=== PATIENT | female | born 1950 | race Caucasian/White ===

== ENCOUNTER 2017-06-07 08:47 | Outpatient (RCR) | payer MEDICARE, SELFPAY ==
[2017-06-04 01:26] VITALS: BP 102/76; PULSE 101; RESP 16; TEMP 36.4; BMI 40.5
== END 2017-07-04 23:59 ==
LOC: WC 08:47
PROVIDERS: Family Provider Family Medicine Geriatric Medicine; PCP Family Medicine Geriatric Medicine; Visit Provider Internal Medicine
DX: Z09 Encounter for follow-up examination after completed treatment for conditions other than malignant neoplasm (principal)

== ENCOUNTER → 2017-07-24 13:44 | Outpatient (CLI) | payer MEDICARE, OTHER, SELFPAY ==
[2017-07-24 16:14] LABS: ALB/GLOB Ratio 0.7 RATIO (0.9-2.4); AST(SGOT) 22 U/L (15-37); Alanine Aminotransfer ALT/SGPT 21 U/L (13-56); Albumin, Serum 3.4 g/dL (3.2-5.0); Alkaline Phosphatase 58 U/L (45-117); Anion Gap 9 (5-15); BUN 19 mg/dL (7-18); BUN/Creat Ratio 30.7 RATIO (10-20); Calcium,Total 9.2 mg/dL (8.5-10.1); Chloride 105 mmol/L (98-107); Cholesterol 150 mg/dL (200); Creatinine, Serum 0.62 mg/dL (0.55-1.02); EST Glomerular Filtration Rate 103 mL/min (>60); Est Glom Filt Rate - Afr Amer 124 mL/min (>60); Globulin 4.6 g/dL (2.2-4.2); Glucose 85 mg/dL (74-106); High Density Lipoprotein 37 mg/dL; Potassium 4.7 mmol/L (3.5-5.1); Sodium Level 139 mmol/L (136-145); Thyroid Stim Hormone (TSH) 1.28 uIU/mL (0.358-3.74); Triglycerides 138 mg/dL; Very Low Density Lipoprotein 28 mg/dL (5-40)
[2017-07-24 16:17] LABS: Absolute Lymphocyte Count 2.43 X10^3/ul (0.83-4.51); Basophil# 0.03 X10^3/uL; Basophil% 0.2 % (0-1); Eosinophil# 0.12 X10^3/uL; Eosinophils% 0.9 % (0-5); Hematocrit 31.2 % (37-47); Hemoglobin 8.7 g/dl (12.0-15.0); Lymphocyte # 2.43 X10^3/ul (4.0); Lymphocyte % 18.8 % (19-41); Mean Corp Hgb Conc 27.9 g/gl (32-36); Mean Corpuscular Hgb 19.3 pg (27.0-32.0); Mean Corpuscular Volume 69.3 fL (81-99); Mean Platelet Vol. 8.8 fl (6.2-12.0); Monocyte# 1.36 X10^3/uL; Monocyte% 10.5 % (0-10); Neutrophil # 8.99 X10^3/uL (2.7-7.7); Neutrophil % 69.4 % (47-70); Platelet Count 688 K/mm3 (150-450); RBC Distribution Width CV 19.1 % (11.6-14.6); RBC Distribution Width SD 48.4 fl (35.1-43.9)
[2017-07-24 16:19] LABS: Differential Indicated SCAN CRITERIA MET; POSITIVE COUNT NO; POSITIVE DIFFERENTIAL NO; POSITIVE MORPHOLOGY YES
[2017-07-24 16:36] LABS: Anisocytosis 2+; Differential Comment SCANNED; Hypochromasia 1+; Microcytosis 2+; Polychromasia RARE
[2017-07-25 10:35] LABS: Vitamin D,25 Hydroxy 18.7 ng/mL (19.95-100.01)
== END ==
PROVIDERS: Family Provider Family Medicine Geriatric Medicine; PCP Family Medicine Geriatric Medicine; Visit Provider Family Medicine Geriatric Medicine
DX: E55.9 Vitamin D deficiency, unspecified (principal); E78.4 Other hyperlipidemia; I10 Essential (primary) hypertension
CPT/HCPCS: 36415; 80053; 80061; 82306; 84443; 85025; 87086; 87088; 87186

== ENCOUNTER 2017-07-26 10:00 | Outpatient (RCR) | payer MEDICARE, OTHER, SELFPAY ==
[2017-06-04 01:26] VITALS: BP 102/76; BMI 40.5
[2017-07-05 00:49] VITALS: PULSE 101; RESP 16; TEMP 36.4
[2017-07-05 09:26] VITALS: BP 107/69; PULSE 95; RESP 18; TEMP 36.8; BMI 40.5
--- NOTE | 2017-07-05 17:03 | HP.PCM_ITS ---
(1) Pressure ulcer of left heel, stage 3 Status: Acute Current Visit: Yes Code(s): L89.623 - Pressure ulcer of left heel, stage 3 (2) Pressure ulcer of right heel, stage 3 Status: Acute Current Visit: Yes Code(s): L89.613 - Pressure ulcer of right heel, stage 3 (3) Pressure ulcer of sacral region, stage 4 Status: Chronic Current Visit: Yes Code(s): L89.154 - Pressure ulcer of sacral region, stage 4 History of Present Illness Date of Service: 07/05/17 Chief Complaint: Stage IV sacral pressure ulceration; bilateral unstageable necrotic heel pressure ulcerations History of Wound: Ms. Chavez is a 67-year-old female who has been seen here about a month ago and managed as a case of bilateral stage III pressure ulcers and stage IV sacral ulcer. Due to insurance issues she has not been seen here in over a month and was seen at another wound center however she returns here today for continued care. 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 She had intraoperative surgical debridement of her sacral wound and has since had a wound VAC. Wound has shown significant progress since initial episode. She currently has a wound VAC to her sacral wound and has been applying collagen to the bilateral heels. She denies chills, fever or otherwise feeling of unwell. Past Medical History Past Medical History: Chronic Problems Pressure ulcer of sacral region, stage 4 (Chronic) Pressure ulcer, heel, left, unstageable (Chronic) Pressure ulcer, heel, right, unstageable (Chronic) Hypothyroidism (Chronic) Depression (Chronic) GERD (gastroesophageal reflux disease) (Chronic) Neuropathy (Chronic) Hypertension (Chronic) GERD (gastroesophageal reflux disease) (Chronic) Morbid obesity with BMI of 40.0-44.9, adult (Chronic) Surgical History: - - As previously undergone hysterectomy. She is a Ab0. Surgical debridement of her sacral pressure ulceration was performed on April 12, 2017, at [facility]. Allergies/Adverse Reactions: Allergies bee venom protein (honey bee) Allergy (Verified 03/09/17 21:06) Angioedema Home Medications: Ambulatory Orders Medication Instructions Recorded Baclofen 10 mg PO TID 03/02/17 Gabapentin [Neurontin] 300 mg PO TID 03/02/17 Levothyroxine [Synthroid] 25 mcg PO DAILY 03/02/17 Potassium Chloride [K-Dur] 40 meq PO DAILYCM #7 tablet 03/08/17 Ensure Enlive 120 ml PO 4X/DAY 03/16/17 - Family History Maternal Unknown, - - Patient's mother at the age of 82 with a history of chronic obstructive pulmonary disease. Paternal Unknown, - - Patient's father at age of 79 with history of lung cancer and myocardial infarction. Smoking Status: Former smoker Tobacco Use: Non-smoker Review of Systems Constitutional: Denies: Anorexia, Chills, Fever Eyes: Denies: Pain, Redness HEENT: Denies: Difficulty Hearing, Difficulty Swallowing Cardiovascular: Denies: Chest Pain, Chest Tightness Respiratory: Denies: Cough, Hemoptysis Gastrointestinal: Denies: Abdominal Pain Skin: Denies: Jaundice - Physical Exam Vital Signs Temp Pulse Resp BP 98.2 F 95 18 107/69 07/05/17 09:26 07/05/17 09:26 07/05/17 09:26 07/05/17 09:26 General: Alert, Oriented x3, Cooperative, No apparent distress HEENT: Atraumatic, Normocephalic Oral: Moist Mucosa Neck: Supple Lungs: Normal air movement Cardiovascular: Regular rate Abdomen: Non Tender Extremities: No cyanosis Skin: Ulcer/ Wound Wound Measurements and Assessment - Nurse 1 - General Ulcer Measurement Start: 07/05/17 09:25 Freq: Status: Active Protocol: Activity Type Activity Date Activity User E-Sign Co-Sign Detail Recorded Client Recorded Date Recorded By Document 07/05/17 09:26 MW [id number] 07/05/17 09:36 MW 07/05/17 09:26 Wound Center Nurse 1 [Ulcer Assessment Protocol: WC.WD.LOC] #3 sacrum -Combined with other wound No -Current Size (cm) - Length 2.5 -Current Size (cm) - Width 6.5 -Current Size (cm) - Depth 2.9 -Total Square Cm 16.25 -Date of Last Picture (Recall this 07/05/17 field) -Photo Taken Yes -Epithelialization Small 1-33% -Tunneling No -Undermining/Tunneling No -Circular Undermining No -Exudate Amt Medium (34-66%) -Exudate Type Serosanguineous -Wound Margin Distinct, Outline Attached -Granulation Amt Large (67-100%) -Granulation Quality Red -Slough/Fibrin Yes -Necrosis Amt Small (1-33%) -Necrotic Tissue Type Adherent Slough -Structure Exposed N/A -Texture (Amanda-wound Skin Appearance) Assessed Scarring -Moisture (Amanda-wound Skin Appearance No Abnormality ) Assessed -Color (Amanda-wound Skin Appearance) No Abnormality Assessed -Temperature (Amanda-wound Skin No Abnormality Appearance) (Pt Warm) -Tenderness on Palpation (Amanda-wound No Skin Appearance) -Ulcer Cleansing Rinsed/ Irrigated with Saline -Foul Odor after Cleansing No -Anesthetic Used 4% Lidocaine Solution #2 left heel -Combined with other wound No -Current Size (cm) - Length 0.3 -Current Size (cm) - Width 0.6 -Current Size (cm) - Depth 0.2 -Total Square Cm 0.18 -Date of Last Picture (Recall this 07/05/17 field) -Photo Taken Yes -Epithelialization None Present -Tunneling No -Undermining/Tunneling No -Circular Undermining No -Exudate Amt Small (1-33%) -Exudate Type Purulent -Wound Margin Distinct, Outline Attached -Granulation Amt Small (1-33%) -Granulation Quality [employer] -Slough/Fibrin Yes -Necrosis Amt Medium (34-66%) -Necrotic Tissue Type Adherent Slough -Structure Exposed N/A -Texture (Amanda-wound Skin Appearance) Assessed Scarring -Moisture (Amanda-wound Skin Appearance Assessed ) Dry/Scaly -Color (Amanda-wound Skin Appearance) No Abnormality Assessed -Temperature (Amanda-wound Skin No Abnormality Appearance) (Pt Warm) -Tenderness on Palpation (Amanda-wound No Skin Appearance) -Ulcer Cleansing Rinsed/ Irrigated with Saline -Foul Odor after Cleansing No -Anesthetic Used 4% Lidocaine Solution #1 Right heel -Combined with other wound No -Current Size (cm) - Length 0.5 -Current Size (cm) - Width 0.7 -Current Size (cm) - Depth 0.1 -Total Square Cm 0.35 -Date of Last Picture (Recall this 07/05/17 field) -Photo Taken Yes -Epithelialization None Present -Tunneling No -Undermining/Tunneling No -Circular Undermining No -Exudate Amt None Present (0 %) -Wound Margin Flat & Intact -Granulation Amt None Present (0 %) -Granulation Quality N/A -Slough/Fibrin Yes -Necrosis Amt Large (67-100%) -Necrotic Tissue Type Adherent Slough -Structure Exposed N/A -Texture (Amanda-wound Skin Appearance) No Abnormality Assessed -Moisture (Amanda-wound Skin Appearance No Abnormality ) Dry/Scaly -Color (Amanda-wound Skin Appearance) No Abnormality Assessed -Temperature (Amanda-wound Skin No Abnormality Appearance) (Pt Warm) -Tenderness on Palpation (Amanda-wound No Skin Appearance) -Ulcer Cleansing Rinsed/ Irrigated with Saline -Foul Odor after Cleansing No -Anesthetic Used 4% Lidocaine Solution [Edema Assessment] -Lower Limb Edema Present No WC - Nurse 2 - General Ulcer CM Notes Start: 07/05/17 09:25 Freq: Status: Active Protocol: Activity Type Activity Date Activity User E-Sign Co-Sign Detail Recorded Client Recorded Date Recorded By Document 07/05/17 09:52 DV [id number] 07/05/17 10:09 DV 07/05/17 09:52 Wound Center Nurse 2 [Procedure/Treatment] #3 sacrum -Time 09:55 -Correct Patient Yes -Correct Side, Site, Position Yes -Correct Procedure Yes -Procedure Performed Yes -Type of Procedure Debridement -Clinical Debridement Subcutaneous -Post Debridement Size (cm) - Length 2.7 -Post Debridement Size (cm) - Width 7.0 -Post Debridement Size (cm) - Depth 2.6 -Total Square Cm 18.90 -Wound/Ulcer Outcome Not Healed -Ulcer Cleansing Rinsed/ Irrigated with Saline -Foul Odor after Cleansing No -Bioengineered Tissue No -Cetacaine Dierks No -Bleeding Controlled with Pressure -Treatment Response Procedure Tolerated Well #2 left heel -Time 09:57 -Correct Patient Yes -Correct Side, Site, Position Yes -Correct Procedure Yes -Procedure Performed Yes -Type of Procedure Debridement -Clinical Debridement Subcutaneous -Post Debridement Size (cm) - Length 0.3 -Post Debridement Size (cm) - Width 0.8 -Post Debridement Size (cm) - Depth 0.5 -Total Square Cm 0.24 -Wound/Ulcer Outcome Not Healed -Ulcer Cleansing Rinsed/ Irrigated with Saline -Foul Odor after Cleansing No -Bioengineered Tissue No -Cetacaine Dierks No -Bleeding Controlled with Pressure -Treatment Response Procedure Tolerated Well #1 Right heel -Time 09:58 -Correct Patient Yes -Correct Side, Site, Position Yes -Correct Procedure Yes -Procedure Performed Yes -Type of Procedure Debridement -Clinical Debridement Subcutaneous -Post Debridement Size (cm) - Length 0.4 -Post Debridement Size (cm) - Width 1.1 -Post Debridement Size (cm) - Depth 0.6 -Total Square Cm 0.44 -Wound/Ulcer Outcome Not Healed -Ulcer Cleansing Rinsed/ Irrigated with Saline -Foul Odor after Cleansing No -Bioengineered Tissue No -Cetacaine Dierks No -Bleeding Controlled with Pressure -Treatment Response Procedure Tolerated Well [See Physician Procedure note for Specifics] Pain Scale: 0-10 Numeric [Pain] -Is Patient Pain Free? Yes Musculoskeletal: No Muscle Wasting Neurological: Cranial nerves II-XII grossly intact Psych/Mental Status: Normal Affect Debridement Note Post-Debridement Measurements/Treatment WC - Nurse 2 - General Ulcer CM Notes Start: 07/05/17 09:25 Freq: Status: Active Protocol: Activity Type Activity Date Activity User E-Sign Co-Sign Detail Recorded Client Recorded Date Recorded By Document 07/05/17 09:52 DV [id number] 07/05/17 10:09 DV 07/05/17 09:52 Wound Center Nurse 2 #3 sacrum -Time 09:55 -Correct Patient Yes -Correct Side, Site, Position Yes -Correct Procedure Yes -Procedure Performed Yes -Type of Procedure Debridement -Clinical Debridement Subcutaneous -Post Debridement Size (cm) - Length 2.7 -Post Debridement Size (cm) - Width 7.0 -Post Debridement Size (cm) - Depth 2.6 -Total Square Cm 18.90 -Wound/Ulcer Outcome Not Healed -Ulcer Cleansing Rinsed/ Irrigated with Saline -Foul Odor after Cleansing No -Bioengineered Tissue No -Cetacaine Dierks No -Bleeding Controlled with Pressure -Treatment Response Procedure Tolerated Well #2 left heel -Time 09:57 -Correct Patient Yes -Correct Side, Site, Position Yes -Correct Procedure Yes -Procedure Performed Yes -Type of Procedure Debridement -Clinical Debridement Subcutaneous -Post Debridement Size (cm) - Length 0.3 -Post Debridement Size (cm) - Width 0.8 -Post Debridement Size (cm) - Depth 0.5 -Total Square Cm 0.24 -Wound/Ulcer Outcome Not Healed -Ulcer Cleansing Rinsed/ Irrigated with Saline -Foul Odor after Cleansing No -Bioengineered Tissue No -Cetacaine Dierks No -Bleeding Controlled with Pressure -Treatment Response Procedure Tolerated Well #1 Right heel -Time 09:58 -Correct Patient Yes -Correct Side, Site, Position Yes -Correct Procedure Yes -Procedure Performed Yes -Type of Procedure Debridement -Clinical Debridement Subcutaneous -Post Debridement Size (cm) - Length 0.4 -Post Debridement Size (cm) - Width 1.1 -Post Debridement Size (cm) - Depth 0.6 -Total Square Cm 0.44 -Wound/Ulcer Outcome Not Healed -Ulcer Cleansing Rinsed/ Irrigated with Saline -Foul Odor after Cleansing No -Bioengineered Tissue No -Cetacaine Dierks No -Bleeding Controlled with Pressure -Treatment Response Procedure Tolerated Well Pain Scale: 0-10 Numeric Is Patient Pain Free? Yes Wound debrided: Sacral ulcer Wound Grade/Stage: Stage IV Type of Debridement: Excisional debridement Anesthesia Used: 4% Lidocaine Solution Depth: Down to and including healthy tissue, to muscle Percentage of wound debrided: 100 Instrument Used: 7mm curette Tissue Removed: Slough, devitalized tissue, fibrin. Severity: Fat Layer Exposed Amount of bleeding with debridement: Mild Bleeding Controlled with: Pressure Patient tolerated procedure well - Additional Wound Wound debrided: Right heel. Wound Grade/Stage: Stage III Type of Debridement: Excisional debridement Anesthesia Used: 4% Lidocaine Solution Depth: Down to and including healthy tissue, in the subcutaneous layer Percentage of wound debrided: 100 Instrument Used: 5mm curette Tissue Removed: Purulent material, devitalized tissue and slough Severity: Fat Layer Exposed Amount of bleeding with debridement: Mild Bleeding Controlled with: Pressure Patient tolerated procedure: Patient tolerated procedure well - Additional Wound Wound debrided: Left heel Wound Grade/Stage: Stage III Type of Debridement: Excisional debridement Anesthesia Used: 4% Lidocaine Solution Depth: Down to and including healthy tissue, in the subcutaneous layer Percentage of wound debrided: 100 Instrument Used: 5mm curette Tissue Removed: Slough and devitalized tissue Severity: Fat Layer Exposed Amount of bleeding with debridement: Mild Bleeding Controlled with: Pressure Assessment/Plan Active Problems Pressure ulcer of sacral region, stage 4 (Chronic) Pressure ulcer of left heel, stage 3 (Acute) Pressure ulcer of right heel, stage 3 (Acute) Assessment: Stage IV sacral decubitus ulcer. Right heel stage III pressure ulcer. Left heel stage III pressure ulcer. Plan: She has shown some wound progress since her last visit here. Still applying the wound VAC to her sacral wound which has decreased compared to her last visit. Debridement done as documented above. Continue wound VAC at 150 mmHg continuously. Bilateral heel ulcers with minimal improvement. Purulent material noted from the right heel. Cultures taken. Debridement done as documented above. Promogran daily to bilateral heel ulcers. Patient advised to continue to increase protein in diet and protein supplements. Offloading of bilateral lower extremities. Follow-up in 1 week. This note was generated with [employer] dictation software. It may contain incorrect words, spelling, and punctuation that were not noted in checking the note before signing.
[2017-07-12 09:35] VITALS: BP 114/85; PULSE 85; RESP 18; TEMP 36.7; BMI 40.5
--- NOTE | 2017-07-12 16:39 | PN.PCM_ITS ---
(1) Pressure ulcer of left heel, stage 3 Status: Acute Current Visit: Yes Code(s): L89.623 - Pressure ulcer of left heel, stage 3 (2) Pressure ulcer of right heel, stage 3 Status: Acute Current Visit: Yes Code(s): L89.613 - Pressure ulcer of right heel, stage 3 (3) Pressure ulcer of sacral region, stage 4 Status: Chronic Current Visit: Yes Code(s): L89.154 - Pressure ulcer of sacral region, stage 4 Type of Wound Date of Service: 07/12/17 Chief Complaint: Stage IV sacral pressure ulceration; bilateral unstageable necrotic heel pressure ulcerations History of Wound: Ms. Chavez is a 67-year-old female who has been seen here about a month ago and managed as a case of bilateral stage III pressure ulcers and stage IV sacral ulcer. Due to insurance issues she has not been seen here in over a month and was seen at another wound center however she returns here today for continued care. 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 She had intraoperative surgical debridement of her sacral wound and has since had a wound VAC. Wound has shown significant progress since initial episode. She currently has a wound VAC to her sacral wound and has been applying collagen to the bilateral heels. She denies chills, fever or otherwise feeling of unwell. Progress of Wound: Improving. - Physical Exam Vital Signs Temp Pulse Resp BP 98.0 F 85 18 114/85 H 07/12/17 09:35 07/12/17 09:35 07/12/17 09:35 07/12/17 09:35 General: Alert, Oriented x3, Cooperative, No apparent distress HEENT: Atraumatic, Normocephalic Oral: Moist Mucosa Neck: Supple Lungs: Normal air movement Cardiovascular: Regular rate Extremities: No cyanosis Skin: Ulcer/ Wound Wound Measurements and Assessment CHILO - Nurse 1 - General Ulcer Measurement Start: 07/05/17 09:25 Freq: Status: Active Protocol: Activity Type Activity Date Activity User E-Sign Co-Sign Detail Recorded Client Recorded Date Recorded By Document 07/12/17 09:35 TM [id number] 07/12/17 09:40 TM 07/12/17 09:35 Wound Center Nurse 1 [Ulcer Assessment Protocol: CHILO.WD.LOC] #3 sacrum -Combined with other wound No -Current Size (cm) - Length 2.3 -Current Size (cm) - Width 5.5 -Current Size (cm) - Depth 2.8 -Total Square Cm 12.65 -Photo Taken No -Epithelialization Small 1-33% -Tunneling No -Undermining/Tunneling Yes -Undermining/Tunneling Starts (O' 3 clock) -Undermining/Tunneling Ends (O'clock) 5 -Maximum Distance (cm) 4.0 -Undermining/Tunneling Starts #2 (O' 6 clock) -Undermining/Tunneling Ends #2 (O' 2 clock) -Maximum Distance #2 (cm) 5.0 -Circular Undermining Yes -Classification - Thickness Full Thickness without Exposed Support Structure -Exudate Amt Large (67-100%) -Exudate Type Serosanguineous -Wound Margin Distinct, Outline Attached -Granulation Amt Large (67-100%) -Granulation Quality [employer] -Slough/Fibrin Yes -Necrosis Amt Small (1-33%) -Necrotic Tissue Type Adherent Slough -Structure Exposed Fascia Fat Layer Exposed -Texture (Amanda-wound Skin Appearance) Scarring -Moisture (Amanda-wound Skin Appearance No Abnormality ) -Color (Amanda-wound Skin Appearance) Erythema -Temperature (Amanda-wound Skin No Abnormality Appearance) (Pt Warm) -Tenderness on Palpation (Amanda-wound No Skin Appearance) -Ulcer Cleansing Rinsed/ Irrigated with Saline -Foul Odor after Cleansing No -Anesthetic Used 5% Lidocaine Gel #2 left heel -Combined with other wound No -Current Size (cm) - Length 0 -Current Size (cm) - Width 0 -Current Size (cm) - Depth 0 -Total Square Cm 0 -Date of Last Picture (Recall this 07/12/17 field) -Photo Taken Yes -Epithelialization Large 67-100% -Tunneling No -Undermining/Tunneling No -Circular Undermining No -Classification - Thickness Full Thickness without Exposed Support Structure -Exudate Amt None Present (0 %) -Wound Margin Distinct, Outline Attached -Granulation Amt Large (67-100%) -Granulation Quality [employer] -Slough/Fibrin No -Necrosis Amt None Present (0 %) -Structure Exposed None/Limited to Skin Breakdown -Texture (Amanda-wound Skin Appearance) Scarring -Moisture (Amanda-wound Skin Appearance Dry/Scaly ) -Color (Amanda-wound Skin Appearance) No Abnormality -Temperature (Amanda-wound Skin No Abnormality Appearance) (Pt Warm) -Tenderness on Palpation (Amanda-wound No Skin Appearance) -Ulcer Cleansing Rinsed/ Irrigated with Saline -Foul Odor after Cleansing No #1 Right heel -Combined with other wound No -Current Size (cm) - Length 0.3 -Current Size (cm) - Width 0.5 -Current Size (cm) - Depth 0.2 -Total Square Cm 0.15 -Photo Taken No -Epithelialization Medium 34-66% -Tunneling No -Undermining/Tunneling No -Circular Undermining No -Classification - Thickness Full Thickness without Exposed Support Structure -Exudate Amt Small (1-33%) -Exudate Type Serosanguineous -Wound Margin Fibrotic Scar, Thickened Scar -Granulation Amt Medium (34-66%) -Granulation Quality [employer] -Slough/Fibrin Yes -Necrosis Amt Small (1-33%) -Necrotic Tissue Type Adherent Slough -Structure Exposed Fascia Fat Layer Exposed -Texture (Amanda-wound Skin Appearance) Scarring -Moisture (Amanda-wound Skin Appearance Dry/Scaly ) -Color (Amanda-wound Skin Appearance) No Abnormality -Temperature (Amanda-wound Skin No Abnormality Appearance) (Pt Warm) -Tenderness on Palpation (Amanda-wound No Skin Appearance) -Ulcer Cleansing Rinsed/ Irrigated with Saline -Foul Odor after Cleansing No -Anesthetic Used 5% Lidocaine Gel [Edema Assessment] -Lower Limb Edema Present No WC - Nurse 2 - General Ulcer CM Notes Start: 07/05/17 09:25 Freq: Status: Active Protocol: Activity Type Activity Date Activity User E-Sign Co-Sign Detail Recorded Client Recorded Date Recorded By Document 07/12/17 10:00 DV [id number] 07/12/17 10:14 DV 07/12/17 10:00 Wound Center Nurse 2 [Procedure/Treatment] #3 sacrum -Time 10:01 -Correct Patient Yes -Correct Side, Site, Position Yes -Correct Procedure Yes -Procedure Performed Yes -Type of Procedure Debridement -Clinical Debridement Subcutaneous -Post Debridement Size (cm) - Length 2.7 -Post Debridement Size (cm) - Width 6.1 -Post Debridement Size (cm) - Depth 2.1 -Total Square Cm 16.47 -Wound/Ulcer Outcome Not Healed -Ulcer Cleansing Rinsed/ Irrigated with Saline -Foul Odor after Cleansing Yes -Bleeding Controlled with Pressure -Treatment Response Procedure Tolerated Well #2 left heel -Time 10:04 -Correct Patient Yes -Correct Side, Site, Position Yes -Correct Procedure Yes -Procedure Performed Yes -Type of Procedure Debridement -Clinical Debridement Subcutaneous -Post Debridement Size (cm) - Length 0.2 -Post Debridement Size (cm) - Width 0.3 -Post Debridement Size (cm) - Depth 0.2 -Total Square Cm 0.06 -Wound/Ulcer Outcome Not Healed -Ulcer Cleansing Rinsed/ Irrigated with Saline -Foul Odor after Cleansing No -Bioengineered Tissue No -Bleeding Controlled with NA #1 Right heel -Time 10:02 -Correct Patient Yes -Correct Side, Site, Position Yes -Correct Procedure Yes -Procedure Performed Yes -Type of Procedure Debridement -Clinical Debridement Subcutaneous -Post Debridement Size (cm) - Length 0.3 -Post Debridement Size (cm) - Width 0.8 -Post Debridement Size (cm) - Depth 0.4 -Total Square Cm 0.24 -Wound/Ulcer Outcome Not Healed -Ulcer Cleansing Rinsed/ Irrigated with Saline -Foul Odor after Cleansing No -Bioengineered Tissue No -Bleeding Controlled with Pressure -Treatment Response Procedure Tolerated Well [See Physician Procedure note for Specifics] Pain Scale: 0-10 Numeric [Pain] -Is Patient Pain Free? Yes Musculoskeletal: No Muscle Wasting Neurological: Cranial nerves II-XII grossly intact Psych/Mental Status: Normal Affect Debridement Note Post-Debridement Measurements/Treatment WC - Nurse 2 - General Ulcer CM Notes Start: 07/05/17 09:25 Freq: Status: Active Protocol: Activity Type Activity Date Activity User E-Sign Co-Sign Detail Recorded Client Recorded Date Recorded By Document 07/05/17 09:52 DV [id number] 07/05/17 10:09 DV Document 07/12/17 10:00 DV [id number] 07/12/17 10:14 DV 07/05/17 07/12/17 09:52 10:00 Wound Center Nurse 2 #3 sacrum -Time 09:55 10:01 -Correct Patient Yes Yes -Correct Side, Site, Position Yes Yes -Correct Procedure Yes Yes -Procedure Performed Yes Yes -Type of Procedure Debridement Debridement -Clinical Debridement Subcutaneous Subcutaneous -Post Debridement Size (cm) - Length 2.7 2.7 -Post Debridement Size (cm) - Width 7.0 6.1 -Post Debridement Size (cm) - Depth 2.6 2.1 -Total Square Cm 18.90 16.47 -Wound/Ulcer Outcome Not Healed Not Healed -Ulcer Cleansing Rinsed/ Rinsed/ Irrigated with Irrigated with Saline Saline -Foul Odor after Cleansing No Yes -Bioengineered Tissue No -Cetacaine [place] No -Bleeding Controlled with Pressure Pressure -Treatment Response Procedure Procedure Tolerated Well Tolerated Well #2 left heel -Time 09:57 10:04 -Correct Patient Yes Yes -Correct Side, Site, Position Yes Yes -Correct Procedure Yes Yes -Procedure Performed Yes Yes -Type of Procedure Debridement Debridement -Clinical Debridement Subcutaneous Subcutaneous -Post Debridement Size (cm) - Length 0.3 0.2 -Post Debridement Size (cm) - Width 0.8 0.3 -Post Debridement Size (cm) - Depth 0.5 0.2 -Total Square Cm 0.24 0.06 -Wound/Ulcer Outcome Not Healed Not Healed -Ulcer Cleansing Rinsed/ Rinsed/ Irrigated with Irrigated with Saline Saline -Foul Odor after Cleansing No No -Bioengineered Tissue No No -Cetacaine [place] No -Bleeding Controlled with Pressure NA -Treatment Response Procedure Tolerated Well #1 Right heel -Time 09:58 10:02 -Correct Patient Yes Yes -Correct Side, Site, Position Yes Yes -Correct Procedure Yes Yes -Procedure Performed Yes Yes -Type of Procedure Debridement Debridement -Clinical Debridement Subcutaneous Subcutaneous -Post Debridement Size (cm) - Length 0.4 0.3 -Post Debridement Size (cm) - Width 1.1 0.8 -Post Debridement Size (cm) - Depth 0.6 0.4 -Total Square Cm 0.44 0.24 -Wound/Ulcer Outcome Not Healed Not Healed -Ulcer Cleansing Rinsed/ Rinsed/ Irrigated with Irrigated with Saline Saline -Foul Odor after Cleansing No No -Bioengineered Tissue No No -Cetacaine [place] No -Bleeding Controlled with Pressure Pressure -Treatment Response Procedure Procedure Tolerated Well Tolerated Well Pain Scale: 0-10 Numeric Is Patient Pain Free? Yes Yes Wound debrided: Sacral Wound Grade/Stage: stage IV Anesthesia Used: 4% Lidocaine Solution Depth: Down to and including healthy tissue, to muscle Percentage of wound debrided: 100 Instrument Used: 7mm curette Tissue Removed: Slough, Devitalized tissue Severity: Fat Layer Exposed Amount of bleeding with debridement: Mild Bleeding Controlled with: Pressure Patient tolerated procedure well - Additional Wound Wound debrided: Left heel Wound Grade/Stage: Satge III Type of Debridement: Excisional debridement Anesthesia Used: 5% Lidocaine Gel Depth: Down to and including healthy tissue, in the subcutaneous layer Percentage of wound debrided: 100 Instrument Used: 3mm curette Tissue Removed: Slough and Devitalized tissue Severity: Fat Layer Exposed Amount of bleeding with debridement: Mild Bleeding Controlled with: Pressure Patient tolerated procedure: Patient tolerated procedure well - Additional Wound Wound debrided: Right heel Wound Grade/Stage: Stage III Type of Debridement: Excisional debridement Anesthesia Used: 4% Lidocaine Solution Depth: Down to and including healthy tissue, in the subcutaneous layer Percentage of wound debrided: 100 Instrument Used: 3mm curette Tissue Removed: Slough and Devitalized tissue Severity: Fat Layer Exposed Amount of bleeding with debridement: Mild Bleeding Controlled with: Pressure Patient tolerated procedure: Patient tolerated procedure well Assessment/Plan Active Problems Pressure ulcer of right heel, stage 3 (Acute) Pressure ulcer of left heel, stage 3 (Acute) Pressure ulcer of sacral region, stage 4 (Chronic) Assessment: Stage IV sacral decubitus ulcer. Right heel stage III pressure ulcer. Left heel stage III pressure ulcer. Plan: Continues to show good progress. Right heel with no drainage today and left heel almost healed. Cultures done at last visit grew Staph. Started on Abx. Debridement done as documented above. Continue Wound vac to sacral ulcer at 150mmHg. Continue promogran to bilateral heel ulcers. Patient advised to continue increased protein in diet and protein supplements. Offloading of bilateral lower extremities. Follow-up in 1 week. This note was generated with [employer] dictation software. It may contain incorrect words, spelling, and punctuation that were not noted in checking the note before signing.
[2017-07-19 11:22] VITALS: BP 135/80; PULSE 91; RESP 18; TEMP 36.6; BMI 40.5
--- NOTE | 2017-07-19 12:12 | PCM.WC.PN ---
(1) Pressure ulcer of left heel, stage 3 Status: Acute Current Visit: Yes Code(s): L89.623 - Pressure ulcer of left heel, stage 3 (2) Pressure ulcer of right heel, stage 3 Status: Acute Current Visit: Yes Code(s): L89.613 - Pressure ulcer of right heel, stage 3 (3) Pressure ulcer of sacral region, stage 4 Status: Chronic Current Visit: Yes Code(s): L89.154 - Pressure ulcer of sacral region, stage 4 Type of Wound Date of Service: 07/19/17 Chief Complaint: Stage IV sacral pressure ulceration; bilateral unstageable necrotic heel pressure ulcerations History of Wound: Ms. Chavez is a 67-year-old female who has been seen here about a month ago and managed as a case of bilateral stage III pressure ulcers and stage IV sacral ulcer. Due to insurance issues she has not been seen here in over a month and was seen at another wound center however she returns here today for continued care. 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 She had intraoperative surgical debridement of her sacral wound and has since had a wound VAC. Wound has shown significant progress since initial episode. She currently has a wound VAC to her sacral wound and has been applying collagen to the bilateral heels. She denies chills, fever or otherwise feeling of unwell. Progress of Wound: Improving. Left heel ulcer, healed. - Physical Exam Vital Signs Temp Pulse Resp BP 97.8 F 91 18 135/80 H 07/19/17 11:22 07/19/17 11:22 07/19/17 11:22 07/19/17 11:22 General: Alert, Oriented x3, Cooperative, No apparent distress HEENT: Atraumatic, Normocephalic Oral: Moist Mucosa Neck: Supple Lungs: Normal air movement Cardiovascular: Regular rate Extremities: No cyanosis, No edema Skin: Ulcer/ Wound Wound Measurements and Assessment CHILO - Nurse 1 - General Ulcer Measurement Start: 07/05/17 09:25 Freq: Status: Active Protocol: Activity Type Activity Date Activity User E-Sign Co-Sign Detail Recorded Client Recorded Date Recorded By Document 07/19/17 11:22 DL [id number] 07/19/17 11:36 DL 07/19/17 11:22 Wound Center Nurse 1 [Ulcer Assessment Protocol: CHILO.WD.LOC] #3 sacrum -Current Size (cm) - Length 2.2 -Current Size (cm) - Width 5.6 -Current Size (cm) - Depth 2.7 -Total Square Cm 12.32 -Undermining/Tunneling Starts (O' 3 clock) -Undermining/Tunneling Ends (O'clock) 5 -Maximum Distance (cm) 3.7 -Undermining/Tunneling Starts #2 (O' 6 clock) -Undermining/Tunneling Ends #2 (O' 2 clock) -Maximum Distance #2 (cm) 3.5 -Exudate Amt Medium (34-66%) -Exudate Type Serosanguineous -Wound Margin Distinct, Outline Attached -Granulation Amt Large (67-100%) -Granulation Quality [place] -Necrosis Amt Small (1-33%) -Necrotic Tissue Type Adherent Slough -Structure Exposed N/A -Texture (Amanda-wound Skin Appearance) Scarring -Moisture (Amanda-wound Skin Appearance No Abnormality ) -Color (Amanda-wound Skin Appearance) No Abnormality -Tenderness on Palpation (Amanda-wound No Skin Appearance) -Ulcer Cleansing Wound Cleanser -Foul Odor after Cleansing No -Anesthetic Used 4% Lidocaine Solution #2 left heel -Current Size (cm) - Length 0.1 -Current Size (cm) - Width 0.1 -Current Size (cm) - Depth 0.1 -Total Square Cm 0.01 -Photo Taken No -Exudate Amt None Present (0 %) -Wound Margin Flat & Intact -Granulation Amt Large (67-100%) -Granulation Quality [place] -Necrosis Amt None Present (0 %) -Structure Exposed N/A -Texture (Amanda-wound Skin Appearance) Scarring -Moisture (Amanda-wound Skin Appearance No Abnormality ) -Color (Amanda-wound Skin Appearance) No Abnormality -Temperature (Amanda-wound Skin No Abnormality Appearance) (Pt Warm) -Ulcer Cleansing Wound Cleanser -Foul Odor after Cleansing No -Anesthetic Used 4% Lidocaine Solution #1 Right heel -Current Size (cm) - Length 0.2 -Current Size (cm) - Width 0.2 -Current Size (cm) - Depth 0.1 -Total Square Cm 0.04 -Photo Taken No -Exudate Amt None Present (0 %) -Wound Margin Flat & Intact -Granulation Amt Small (1-33%) -Granulation Quality [place] -Necrosis Amt Small (1-33%) -Necrotic Tissue Type Adherent Slough -Structure Exposed N/A -Texture (Amanda-wound Skin Appearance) Scarring -Moisture (Amanda-wound Skin Appearance No Abnormality ) -Color (Amanda-wound Skin Appearance) No Abnormality -Temperature (Amanda-wound Skin No Abnormality Appearance) (Pt Warm) -Ulcer Cleansing Wound Cleanser -Foul Odor after Cleansing No -Anesthetic Used 4% Lidocaine Solution WC - Nurse 2 - General Ulcer CM Notes Start: 07/05/17 09:25 Freq: Status: Active Protocol: Activity Type Activity Date Activity User E-Sign Co-Sign Detail Recorded Client Recorded Date Recorded By Document 07/19/17 11:45 DV [id number] 07/19/17 11:59 DV 07/19/17 11:45 Wound Center Nurse 2 [Procedure/Treatment] #3 sacrum -Time 11:47 -Correct Patient Yes -Correct Side, Site, Position Yes -Correct Procedure Yes -Procedure Performed Yes -Type of Procedure Debridement -Clinical Debridement Subcutaneous -Post Debridement Size (cm) - Length 2.4 -Post Debridement Size (cm) - Width 6.0 -Post Debridement Size (cm) - Depth 3.5 -Total Square Cm 14.40 -Wound/Ulcer Outcome Not Healed -Ulcer Cleansing Rinsed/ Irrigated with Saline -Foul Odor after Cleansing No -Bioengineered Tissue No -Bleeding Controlled with NA -Treatment Response Procedure Tolerated Well #2 left heel -Time 11:46 -Correct Patient Yes -Correct Side, Site, Position Yes -Procedure Performed No -Post Debridement Size (cm) - Length 0 -Post Debridement Size (cm) - Width 0 -Post Debridement Size (cm) - Depth 0 -Total Square Cm 0 -Wound/Ulcer Outcome Healed- Epithelialized #1 Right heel -Time 11:48 -Correct Patient Yes -Correct Side, Site, Position Yes -Correct Procedure Yes -Procedure Performed Yes -Type of Procedure Debridement -Clinical Debridement Subcutaneous -Post Debridement Size (cm) - Length 0.2 -Post Debridement Size (cm) - Width 0.6 -Post Debridement Size (cm) - Depth 0.3 -Total Square Cm 0.12 -Wound/Ulcer Outcome Not Healed -Ulcer Cleansing Rinsed/ Irrigated with Saline -Foul Odor after Cleansing No -Bioengineered Tissue No -Bleeding Controlled with NA -Treatment Response Procedure Tolerated Well [See Physician Procedure note for Specifics] Pain Scale: 0-10 Numeric [Pain] -Is Patient Pain Free? Yes Musculoskeletal: No Muscle Wasting Neurological: Cranial nerves II-XII grossly intact Psych/Mental Status: Normal Affect Debridement Note Post-Debridement Measurements/Treatment WC - Nurse 2 - General Ulcer CM Notes Start: 07/05/17 09:25 Freq: Status: Active Protocol: Activity Type Activity Date Activity User E-Sign Co-Sign Detail Recorded Client Recorded Date Recorded By Document 07/05/17 09:52 DV [id number] 07/05/17 10:09 DV Document 07/12/17 10:00 DV [id number] 07/12/17 10:14 DV Document 07/19/17 11:45 DV [id number] 07/19/17 11:59 DV 07/05/17 07/12/17 07/19/17 09:52 10:00 11:45 Wound Center Nurse 2 #3 sacrum -Time 09:55 10:01 11:47 -Correct Patient Yes Yes Yes -Correct Side, Site, Position Yes Yes Yes -Correct Procedure Yes Yes Yes -Procedure Performed Yes Yes Yes -Type of Procedure Debridement Debridement Debridement -Clinical Debridement Subcutaneous Subcutaneous Subcutaneous -Post Debridement Size (cm) - Length 2.7 2.7 2.4 -Post Debridement Size (cm) - Width 7.0 6.1 6.0 -Post Debridement Size (cm) - Depth 2.6 2.1 3.5 -Total Square Cm 18.90 16.47 14.40 -Wound/Ulcer Outcome Not Healed Not Healed Not Healed -Ulcer Cleansing Rinsed/ Rinsed/ Rinsed/ Irrigated with Irrigated with Irrigated with Saline Saline Saline -Foul Odor after Cleansing No Yes No -Bioengineered Tissue No No -Cetacaine [place] No -Bleeding Controlled with Pressure Pressure NA -Treatment Response Procedure Procedure Procedure Tolerated Well Tolerated Well Tolerated Well #2 left heel -Time 09:57 10:04 11:46 -Correct Patient Yes Yes Yes -Correct Side, Site, Position Yes Yes Yes -Correct Procedure Yes Yes -Procedure Performed Yes Yes No -Type of Procedure Debridement Debridement -Clinical Debridement Subcutaneous Subcutaneous -Post Debridement Size (cm) - Length 0.3 0.2 0 -Post Debridement Size (cm) - Width 0.8 0.3 0 -Post Debridement Size (cm) - Depth 0.5 0.2 0 -Total Square Cm 0.24 0.06 0 -Wound/Ulcer Outcome Not Healed Not Healed Healed- Epithelialized -Ulcer Cleansing Rinsed/ Rinsed/ Irrigated with Irrigated with Saline Saline -Foul Odor after Cleansing No No -Bioengineered Tissue No No -Cetacaine [place] No -Bleeding Controlled with Pressure NA -Treatment Response Procedure Tolerated Well #1 Right heel -Time 09:58 10:02 11:48 -Correct Patient Yes Yes Yes -Correct Side, Site, Position Yes Yes Yes -Correct Procedure Yes Yes Yes -Procedure Performed Yes Yes Yes -Type of Procedure Debridement Debridement Debridement -Clinical Debridement Subcutaneous Subcutaneous Subcutaneous -Post Debridement Size (cm) - Length 0.4 0.3 0.2 -Post Debridement Size (cm) - Width 1.1 0.8 0.6 -Post Debridement Size (cm) - Depth 0.6 0.4 0.3 -Total Square Cm 0.44 0.24 0.12 -Wound/Ulcer Outcome Not Healed Not Healed Not Healed -Ulcer Cleansing Rinsed/ Rinsed/ Rinsed/ Irrigated with Irrigated with Irrigated with Saline Saline Saline -Foul Odor after Cleansing No No No -Bioengineered Tissue No No No -Cetacaine [place] No -Bleeding Controlled with Pressure Pressure NA -Treatment Response Procedure Procedure Procedure Tolerated Well Tolerated Well Tolerated Well Pain Scale: 0-10 Numeric Is Patient Pain Free? Yes Yes Yes Wound debrided: Right heel Wound Grade/Stage: Stage III Type of Debridement: Excisional debridement Anesthesia Used: 4% Lidocaine Solution Depth: Down to and including healthy tissue, in the subcutaneous layer Percentage of wound debrided: 100 Instrument Used: 3mm curette Tissue Removed: Slough and devitalized tissue Severity: Fat Layer Exposed Amount of bleeding with debridement: Mild Bleeding Controlled with: Pressure Patient tolerated procedure well - Additional Wound Wound debrided: Sacral wound Wound Grade/Stage: Stage IV Type of Debridement: Excisional debridement Anesthesia Used: 4% Lidocaine Solution Depth: Down to and including healthy tissue, in the subcutaneous layer Percentage of wound debrided: 100 Instrument Used: 7mm curette Tissue Removed: Slough and devitalized tissue Severity: Fat Layer Exposed Amount of bleeding with debridement: Mild Bleeding Controlled with: Pressure Patient tolerated procedure: Patient tolerated procedure well Assessment/Plan Active Problems Pressure ulcer of right heel, stage 3 (Acute) Pressure ulcer of left heel, stage 3 (Acute) Pressure ulcer of sacral region, stage 4 (Chronic) Assessment: Stage IV sacral decubitus ulcer. Right heel stage III pressure ulcer. Left heel stage III pressure ulcer - Healed. Plan: Left heel ulcer healed.Right heel stable. Significant hypergranulation in the middle of sacral wound. Will refer to general surgery ( Dr. Yates ) for a second opinion. Reduce sacral wound Vac pressure to 125mmHg. Continue promogran to right heel ulcer. Continue off loading of both lower extremities. Continue increased protein in diet and protein supplements. Follow-up in 1 week. This note was generated with [employer] dictation software. It may contain incorrect words, spelling, and punctuation that were not noted in checking the note before signing.
--- NOTE | 2017-07-19 12:19 | PN.PCM_ITS ---
(1) Pressure ulcer of left heel, stage 3 Status: Acute Current Visit: Yes Code(s): L89.623 - Pressure ulcer of left heel, stage 3 (2) Pressure ulcer of right heel, stage 3 Status: Acute Current Visit: Yes Code(s): L89.613 - Pressure ulcer of right heel, stage 3 (3) Pressure ulcer of sacral region, stage 4 Status: Chronic Current Visit: Yes Code(s): L89.154 - Pressure ulcer of sacral region, stage 4 Type of Wound Date of Service: 07/19/17 Chief Complaint: Stage IV sacral pressure ulceration; bilateral unstageable necrotic heel pressure ulcerations History of Wound: Ms. Chavez is a 67-year-old female who has been seen here about a month ago and managed as a case of bilateral stage III pressure ulcers and stage IV sacral ulcer. Due to insurance issues she has not been seen here in over a month and was seen at another wound center however she returns here today for continued care. 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 She had intraoperative surgical debridement of her sacral wound and has since had a wound VAC. Wound has shown significant progress since initial episode. She currently has a wound VAC to her sacral wound and has been applying collagen to the bilateral heels. She denies chills, fever or otherwise feeling of unwell. Progress of Wound: Improving. Left heel ulcer, healed. - Physical Exam Vital Signs Temp Pulse Resp BP 97.8 F 91 18 135/80 H 07/19/17 11:22 07/19/17 11:22 07/19/17 11:22 07/19/17 11:22 General: Alert, Oriented x3, Cooperative, No apparent distress HEENT: Atraumatic, Normocephalic Oral: Moist Mucosa Neck: Supple Lungs: Normal air movement Cardiovascular: Regular rate Extremities: No cyanosis, No edema Skin: Ulcer/ Wound Wound Measurements and Assessment CHILO - Nurse 1 - General Ulcer Measurement Start: 07/05/17 09:25 Freq: Status: Active Protocol: Activity Type Activity Date Activity User E-Sign Co-Sign Detail Recorded Client Recorded Date Recorded By Document 07/19/17 11:22 DL [id number] 07/19/17 11:36 DL 07/19/17 11:22 Wound Center Nurse 1 [Ulcer Assessment Protocol: CHILO.WD.LOC] #3 sacrum -Current Size (cm) - Length 2.2 -Current Size (cm) - Width 5.6 -Current Size (cm) - Depth 2.7 -Total Square Cm 12.32 -Undermining/Tunneling Starts (O' 3 clock) -Undermining/Tunneling Ends (O'clock) 5 -Maximum Distance (cm) 3.7 -Undermining/Tunneling Starts #2 (O' 6 clock) -Undermining/Tunneling Ends #2 (O' 2 clock) -Maximum Distance #2 (cm) 3.5 -Exudate Amt Medium (34-66%) -Exudate Type Serosanguineous -Wound Margin Distinct, Outline Attached -Granulation Amt Large (67-100%) -Granulation Quality [place] -Necrosis Amt Small (1-33%) -Necrotic Tissue Type Adherent Slough -Structure Exposed N/A -Texture (Amanda-wound Skin Appearance) Scarring -Moisture (Amanda-wound Skin Appearance No Abnormality ) -Color (Amanda-wound Skin Appearance) No Abnormality -Tenderness on Palpation (Amanda-wound No Skin Appearance) -Ulcer Cleansing Wound Cleanser -Foul Odor after Cleansing No -Anesthetic Used 4% Lidocaine Solution #2 left heel -Current Size (cm) - Length 0.1 -Current Size (cm) - Width 0.1 -Current Size (cm) - Depth 0.1 -Total Square Cm 0.01 -Photo Taken No -Exudate Amt None Present (0 %) -Wound Margin Flat & Intact -Granulation Amt Large (67-100%) -Granulation Quality [place] -Necrosis Amt None Present (0 %) -Structure Exposed N/A -Texture (Amanda-wound Skin Appearance) Scarring -Moisture (Amanda-wound Skin Appearance No Abnormality ) -Color (Amanda-wound Skin Appearance) No Abnormality -Temperature (Amanda-wound Skin No Abnormality Appearance) (Pt Warm) -Ulcer Cleansing Wound Cleanser -Foul Odor after Cleansing No -Anesthetic Used 4% Lidocaine Solution #1 Right heel -Current Size (cm) - Length 0.2 -Current Size (cm) - Width 0.2 -Current Size (cm) - Depth 0.1 -Total Square Cm 0.04 -Photo Taken No -Exudate Amt None Present (0 %) -Wound Margin Flat & Intact -Granulation Amt Small (1-33%) -Granulation Quality [place] -Necrosis Amt Small (1-33%) -Necrotic Tissue Type Adherent Slough -Structure Exposed N/A -Texture (Amanda-wound Skin Appearance) Scarring -Moisture (Amanda-wound Skin Appearance No Abnormality ) -Color (Amanda-wound Skin Appearance) No Abnormality -Temperature (Amanda-wound Skin No Abnormality Appearance) (Pt Warm) -Ulcer Cleansing Wound Cleanser -Foul Odor after Cleansing No -Anesthetic Used 4% Lidocaine Solution WC - Nurse 2 - General Ulcer CM Notes Start: 07/05/17 09:25 Freq: Status: Active Protocol: Activity Type Activity Date Activity User E-Sign Co-Sign Detail Recorded Client Recorded Date Recorded By Document 07/19/17 11:45 DV [id number] 07/19/17 11:59 DV 07/19/17 11:45 Wound Center Nurse 2 [Procedure/Treatment] #3 sacrum -Time 11:47 -Correct Patient Yes -Correct Side, Site, Position Yes -Correct Procedure Yes -Procedure Performed Yes -Type of Procedure Debridement -Clinical Debridement Subcutaneous -Post Debridement Size (cm) - Length 2.4 -Post Debridement Size (cm) - Width 6.0 -Post Debridement Size (cm) - Depth 3.5 -Total Square Cm 14.40 -Wound/Ulcer Outcome Not Healed -Ulcer Cleansing Rinsed/ Irrigated with Saline -Foul Odor after Cleansing No -Bioengineered Tissue No -Bleeding Controlled with NA -Treatment Response Procedure Tolerated Well #2 left heel -Time 11:46 -Correct Patient Yes -Correct Side, Site, Position Yes -Procedure Performed No -Post Debridement Size (cm) - Length 0 -Post Debridement Size (cm) - Width 0 -Post Debridement Size (cm) - Depth 0 -Total Square Cm 0 -Wound/Ulcer Outcome Healed- Epithelialized #1 Right heel -Time 11:48 -Correct Patient Yes -Correct Side, Site, Position Yes -Correct Procedure Yes -Procedure Performed Yes -Type of Procedure Debridement -Clinical Debridement Subcutaneous -Post Debridement Size (cm) - Length 0.2 -Post Debridement Size (cm) - Width 0.6 -Post Debridement Size (cm) - Depth 0.3 -Total Square Cm 0.12 -Wound/Ulcer Outcome Not Healed -Ulcer Cleansing Rinsed/ Irrigated with Saline -Foul Odor after Cleansing No -Bioengineered Tissue No -Bleeding Controlled with NA -Treatment Response Procedure Tolerated Well [See Physician Procedure note for Specifics] Pain Scale: 0-10 Numeric [Pain] -Is Patient Pain Free? Yes Musculoskeletal: No Muscle Wasting Neurological: Cranial nerves II-XII grossly intact Psych/Mental Status: Normal Affect Debridement Note Post-Debridement Measurements/Treatment WC - Nurse 2 - General Ulcer CM Notes Start: 07/05/17 09:25 Freq: Status: Active Protocol: Activity Type Activity Date Activity User E-Sign Co-Sign Detail Recorded Client Recorded Date Recorded By Document 07/05/17 09:52 DV [id number] 07/05/17 10:09 DV Document 07/12/17 10:00 DV [id number] 07/12/17 10:14 DV Document 07/19/17 11:45 DV [id number] 07/19/17 11:59 DV 07/05/17 07/12/17 07/19/17 09:52 10:00 11:45 Wound Center Nurse 2 #3 sacrum -Time 09:55 10:01 11:47 -Correct Patient Yes Yes Yes -Correct Side, Site, Position Yes Yes Yes -Correct Procedure Yes Yes Yes -Procedure Performed Yes Yes Yes -Type of Procedure Debridement Debridement Debridement -Clinical Debridement Subcutaneous Subcutaneous Subcutaneous -Post Debridement Size (cm) - Length 2.7 2.7 2.4 -Post Debridement Size (cm) - Width 7.0 6.1 6.0 -Post Debridement Size (cm) - Depth 2.6 2.1 3.5 -Total Square Cm 18.90 16.47 14.40 -Wound/Ulcer Outcome Not Healed Not Healed Not Healed -Ulcer Cleansing Rinsed/ Rinsed/ Rinsed/ Irrigated with Irrigated with Irrigated with Saline Saline Saline -Foul Odor after Cleansing No Yes No -Bioengineered Tissue No No -Cetacaine [place] No -Bleeding Controlled with Pressure Pressure NA -Treatment Response Procedure Procedure Procedure Tolerated Well Tolerated Well Tolerated Well #2 left heel -Time 09:57 10:04 11:46 -Correct Patient Yes Yes Yes -Correct Side, Site, Position Yes Yes Yes -Correct Procedure Yes Yes -Procedure Performed Yes Yes No -Type of Procedure Debridement Debridement -Clinical Debridement Subcutaneous Subcutaneous -Post Debridement Size (cm) - Length 0.3 0.2 0 -Post Debridement Size (cm) - Width 0.8 0.3 0 -Post Debridement Size (cm) - Depth 0.5 0.2 0 -Total Square Cm 0.24 0.06 0 -Wound/Ulcer Outcome Not Healed Not Healed Healed- Epithelialized -Ulcer Cleansing Rinsed/ Rinsed/ Irrigated with Irrigated with Saline Saline -Foul Odor after Cleansing No No -Bioengineered Tissue No No -Cetacaine [place] No -Bleeding Controlled with Pressure NA -Treatment Response Procedure Tolerated Well #1 Right heel -Time 09:58 10:02 11:48 -Correct Patient Yes Yes Yes -Correct Side, Site, Position Yes Yes Yes -Correct Procedure Yes Yes Yes -Procedure Performed Yes Yes Yes -Type of Procedure Debridement Debridement Debridement -Clinical Debridement Subcutaneous Subcutaneous Subcutaneous -Post Debridement Size (cm) - Length 0.4 0.3 0.2 -Post Debridement Size (cm) - Width 1.1 0.8 0.6 -Post Debridement Size (cm) - Depth 0.6 0.4 0.3 -Total Square Cm 0.44 0.24 0.12 -Wound/Ulcer Outcome Not Healed Not Healed Not Healed -Ulcer Cleansing Rinsed/ Rinsed/ Rinsed/ Irrigated with Irrigated with Irrigated with Saline Saline Saline -Foul Odor after Cleansing No No No -Bioengineered Tissue No No No -Cetacaine [place] No -Bleeding Controlled with Pressure Pressure NA -Treatment Response Procedure Procedure Procedure Tolerated Well Tolerated Well Tolerated Well Pain Scale: 0-10 Numeric Is Patient Pain Free? Yes Yes Yes Wound debrided: Right heel Wound Grade/Stage: Stage III Type of Debridement: Excisional debridement Anesthesia Used: 4% Lidocaine Solution Depth: Down to and including healthy tissue, in the subcutaneous layer Percentage of wound debrided: 100 Instrument Used: 3mm curette Tissue Removed: Slough and devitalized tissue Severity: Fat Layer Exposed Amount of bleeding with debridement: Mild Bleeding Controlled with: Pressure Patient tolerated procedure well - Additional Wound Wound debrided: Sacral wound Wound Grade/Stage: Stage IV Type of Debridement: Excisional debridement Anesthesia Used: 4% Lidocaine Solution Depth: Down to and including healthy tissue, in the subcutaneous layer Percentage of wound debrided: 100 Instrument Used: 7mm curette Tissue Removed: Slough and devitalized tissue Severity: Fat Layer Exposed Amount of bleeding with debridement: Mild Bleeding Controlled with: Pressure Patient tolerated procedure: Patient tolerated procedure well Assessment/Plan Active Problems Pressure ulcer of right heel, stage 3 (Acute) Pressure ulcer of left heel, stage 3 (Acute) Pressure ulcer of sacral region, stage 4 (Chronic) Assessment: Stage IV sacral decubitus ulcer. Right heel stage III pressure ulcer. Left heel stage III pressure ulcer - Healed. Plan: Left heel ulcer healed.Right heel stable. Significant hypergranulation in the middle of sacral wound. Will refer to general surgery ( Dr. Yates ) for a second opinion. Reduce sacral wound Vac pressure to 125mmHg. Continue promogran to right heel ulcer. Continue off loading of both lower extremities. Continue increased protein in diet and protein supplements. Follow-up in 1 week. This note was generated with [employer] dictation software. It may contain incorrect words, spelling, and punctuation that were not noted in checking the note before signing.
[2017-07-26 10:30] VITALS: BP 118/60; PULSE 78; RESP 18; TEMP 36.6; BMI 40.5
--- NOTE | 2017-07-26 15:34 | PCM.WC.PN ---
(1) Pressure ulcer of left heel, stage 3 Status: Chronic Code(s): L89.623 - Pressure ulcer of left heel, stage 3 (2) Pressure ulcer of right heel, stage 3 Status: Chronic Code(s): L89.613 - Pressure ulcer of right heel, stage 3 (3) Pressure ulcer of sacral region, stage 4 Status: Chronic Code(s): L89.154 - Pressure ulcer of sacral region, stage 4 Type of Wound Date of Service: 07/26/17 Chief Complaint: Stage IV sacral pressure ulceration; bilateral unstageable necrotic heel pressure ulcerations History of Wound: Ms. Chavez is a 67-year-old female who has been seen here about a month ago and managed as a case of bilateral stage III pressure ulcers and stage IV sacral ulcer. Due to insurance issues she has not been seen here in over a month and was seen at another wound center however she returns here today for continued care. 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 She had intraoperative surgical debridement of her sacral wound and has since had a wound VAC. Wound has shown significant progress since initial episode. She currently has a wound VAC to her sacral wound and has been applying collagen to the bilateral heels. She denies chills, fever or otherwise feeling of unwell. Progress of Wound: Stable. No new complaints at this time. Left heel ulcer stays healed. - Physical Exam Vital Signs Temp Pulse Resp BP 97.9 F 78 18 118/60 07/26/17 10:30 07/26/17 10:30 07/26/17 10:30 07/26/17 10:30 General: Alert, Oriented x3, Cooperative, No apparent distress HEENT: Atraumatic, Normocephalic Oral: Moist Mucosa Neck: Supple Lungs: Normal air movement Cardiovascular: Regular rate Extremities: No cyanosis Skin: Ulcer/ Wound Wound Measurements and Assessment WC - Nurse 1 - General Ulcer Measurement Start: 07/05/17 09:25 Freq: Status: Active Protocol: Activity Type Activity Date Activity User E-Sign Co-Sign Detail Recorded Client Recorded Date Recorded By Document 07/26/17 10:30 RB [id number] 07/26/17 10:42 RB 07/26/17 10:30 Wound Center Nurse 1 [Ulcer Assessment] #3 sacrum -Combined with other wound No -Current Size (cm) - Length 2.2 -Current Size (cm) - Width 6.1 -Current Size (cm) - Depth 3 -Total Square Cm 13.42 -Photo Taken No -Epithelialization Small 1-33% -Tunneling No -Undermining/Tunneling Yes -Undermining/Tunneling Starts (O' 12 clock) -Undermining/Tunneling Ends (O'clock) 12 -Maximum Distance (cm) 4 -Circular Undermining Yes -Classification - Pressure Ulcer Stage 4 -Exudate Amt Large (67-100%) -Exudate Type Serosanguineous -Wound Margin Fibrotic Scar, Thickened Scar -Granulation Amt Large (67-100%) -Granulation Quality Hyper- granulation [place] -Slough/Fibrin Yes -Necrosis Amt Small (1-33%) -Necrotic Tissue Type Adherent Slough -Structure Exposed Fascia -Texture (Amanda-wound Skin Appearance) Assessed -Moisture (Amanda-wound Skin Appearance Assessed ) -Color (Amanda-wound Skin Appearance) Assessed -Temperature (Amanda-wound Skin No Abnormality Appearance) (Pt Warm) -Tenderness on Palpation (Amanda-wound No Skin Appearance) -Ulcer Cleansing Rinsed/ Irrigated with Saline -Foul Odor after Cleansing No -Anesthetic Used 4% Lidocaine Solution #1 Right heel -Combined with other wound No -Current Size (cm) - Length 0.4 -Current Size (cm) - Width 0.2 -Current Size (cm) - Depth 0.1 -Total Square Cm 0.08 -Photo Taken No -Tunneling No -Undermining/Tunneling No -Circular Undermining No -Classification - Thickness Full Thickness without Exposed Support Structure -Exudate Amt None Present (0 %) -Wound Margin Distinct, Outline Attached -Granulation Amt Small (1-33%) -Granulation Quality [place] -Slough/Fibrin Yes -Necrosis Amt Large (67-100%) -Necrotic Tissue Type Adherent Slough -Structure Exposed N/A -Texture (Amanda-wound Skin Appearance) Assessed -Moisture (Amanda-wound Skin Appearance Dry/Scaly ) -Color (Amanda-wound Skin Appearance) Assessed -Temperature (Amanda-wound Skin No Abnormality Appearance) (Pt Warm) -Tenderness on Palpation (Amanda-wound No Skin Appearance) -Ulcer Cleansing Rinsed/ Irrigated with Saline -Foul Odor after Cleansing No -Anesthetic Used 4% Lidocaine Solution [Edema Assessment] -Lower Limb Edema Present No WC - Nurse 2 - General Ulcer CM Notes Start: 07/05/17 09:25 Freq: Status: Active Protocol: Activity Type Activity Date Activity User E-Sign Co-Sign Detail Recorded Client Recorded Date Recorded By Document 07/26/17 11:29 DV [id number] 07/26/17 11:39 DV 07/26/17 11:29 Wound Center Nurse 2 [Procedure/Treatment] #3 sacrum -Time 11:31 -Correct Patient Yes -Correct Side, Site, Position Yes -Correct Procedure Yes -Procedure Performed Yes -Type of Procedure Debridement -Clinical Debridement Subcutaneous -Post Debridement Size (cm) - Length 2.5 -Post Debridement Size (cm) - Width 6.2 -Post Debridement Size (cm) - Depth 2.2 -Total Square Cm 15.50 -Wound/Ulcer Outcome Not Healed -Ulcer Cleansing Rinsed/ Irrigated with Saline -Foul Odor after Cleansing No -Bioengineered Tissue No -Bleeding Controlled with Pressure -Treatment Response Procedure Tolerated Well #1 Right heel -Time 11:31 -Correct Patient Yes -Correct Side, Site, Position Yes -Correct Procedure Yes -Procedure Performed Yes -Type of Procedure Debridement -Clinical Debridement Subcutaneous -Post Debridement Size (cm) - Length 0.1 -Post Debridement Size (cm) - Width 0.4 -Post Debridement Size (cm) - Depth 0.2 -Total Square Cm 0.04 -Wound/Ulcer Outcome Not Healed -Ulcer Cleansing Rinsed/ Irrigated with Saline -Foul Odor after Cleansing No -Bioengineered Tissue No -Bleeding Controlled with Pressure -Treatment Response Procedure Tolerated Well [See Physician Procedure note for Specifics] Pain Scale: 0-10 Numeric [Pain] -Is Patient Pain Free? Yes Musculoskeletal: No Muscle Wasting Neurological: Cranial nerves II-XII grossly intact Psych/Mental Status: Normal Affect Debridement Note Post-Debridement Measurements/Treatment WC - Nurse 2 - General Ulcer CM Notes Start: 07/05/17 09:25 Freq: Status: Active Protocol: Activity Type Activity Date Activity User E-Sign Co-Sign Detail Recorded Client Recorded Date Recorded By Document 07/05/17 09:52 DV [id number] 07/05/17 10:09 DV Document 07/12/17 10:00 DV [id number] 07/12/17 10:14 DV Document 02/15/18 11:45 DV [id number] 07/19/17 11:59 DV Document 07/26/17 11:29 DV [id number] 07/26/17 11:39 DV 07/05/17 07/12/17 07/19/17 09:52 10:00 11:45 Wound Center Nurse 2 #3 sacrum -Time 09:55 10:01 11:47 -Correct Patient Yes Yes Yes -Correct Side, Site, Position Yes Yes Yes -Correct Procedure Yes Yes Yes -Procedure Performed Yes Yes Yes -Type of Procedure Debridement Debridement Debridement -Clinical Debridement Subcutaneous Subcutaneous Subcutaneous -Post Debridement Size (cm) - Length 2.7 2.7 2.4 -Post Debridement Size (cm) - Width 7.0 6.1 6.0 -Post Debridement Size (cm) - Depth 2.6 2.1 3.5 -Total Square Cm 18.90 16.47 14.40 -Wound/Ulcer Outcome Not Healed Not Healed Not Healed -Ulcer Cleansing Rinsed/ Rinsed/ Rinsed/ Irrigated with Irrigated with Irrigated with Saline Saline Saline -Foul Odor after Cleansing No Yes No -Bioengineered Tissue No No -Cetacaine [place] No -Bleeding Controlled with Pressure Pressure NA -Treatment Response Procedure Procedure Procedure Tolerated Well Tolerated Well Tolerated Well #2 left heel -Time 09:57 10:04 11:46 -Correct Patient Yes Yes Yes -Correct Side, Site, Position Yes Yes Yes -Correct Procedure Yes Yes -Procedure Performed Yes Yes No -Type of Procedure Debridement Debridement -Clinical Debridement Subcutaneous Subcutaneous -Post Debridement Size (cm) - Length 0.3 0.2 0 -Post Debridement Size (cm) - Width 0.8 0.3 0 -Post Debridement Size (cm) - Depth 0.5 0.2 0 -Total Square Cm 0.24 0.06 0 -Wound/Ulcer Outcome Not Healed Not Healed Healed- Epithelialized -Ulcer Cleansing Rinsed/ Rinsed/ Irrigated with Irrigated with Saline Saline -Foul Odor after Cleansing No No -Bioengineered Tissue No No -Cetacaine [place] No -Bleeding Controlled with Pressure NA -Treatment Response Procedure Tolerated Well #1 Right heel -Time 09:58 10:02 11:48 -Correct Patient Yes Yes Yes -Correct Side, Site, Position Yes Yes Yes -Correct Procedure Yes Yes Yes -Procedure Performed Yes Yes Yes -Type of Procedure Debridement Debridement Debridement -Clinical Debridement Subcutaneous Subcutaneous Subcutaneous -Post Debridement Size (cm) - Length 0.4 0.3 0.2 -Post Debridement Size (cm) - Width 1.1 0.8 0.6 -Post Debridement Size (cm) - Depth 0.6 0.4 0.3 -Total Square Cm 0.44 0.24 0.12 -Wound/Ulcer Outcome Not Healed Not Healed Not Healed -Ulcer Cleansing Rinsed/ Rinsed/ Rinsed/ Irrigated with Irrigated with Irrigated with Saline Saline Saline -Foul Odor after Cleansing No No No -Bioengineered Tissue No No No -Cetacaine [place] No -Bleeding Controlled with Pressure Pressure NA -Treatment Response Procedure Procedure Procedure Tolerated Well Tolerated Well Tolerated Well Pain Scale: 0-10 Numeric Is Patient Pain Free? Yes Yes Yes 07/26/17 11:29 Wound Center Nurse 2 #3 sacrum -Time 11:31 -Correct Patient Yes -Correct Side, Site, Position Yes -Correct Procedure Yes -Procedure Performed Yes -Type of Procedure Debridement -Clinical Debridement Subcutaneous -Post Debridement Size (cm) - Length 2.5 -Post Debridement Size (cm) - Width 6.2 -Post Debridement Size (cm) - Depth 2.2 -Total Square Cm 15.50 -Wound/Ulcer Outcome Not Healed -Ulcer Cleansing Rinsed/ Irrigated with Saline -Foul Odor after Cleansing No -Bioengineered Tissue No -Cetacaine [place] -Bleeding Controlled with Pressure -Treatment Response Procedure Tolerated Well #2 left heel -Time -Correct Patient -Correct Side, Site, Position -Correct Procedure -Procedure Performed -Type of Procedure -Clinical Debridement -Post Debridement Size (cm) - Length -Post Debridement Size (cm) - Width -Post Debridement Size (cm) - Depth -Total Square Cm -Wound/Ulcer Outcome -Ulcer Cleansing -Foul Odor after Cleansing -Bioengineered Tissue -Cetacaine [place] -Bleeding Controlled with -Treatment Response #1 Right heel -Time 11:31 -Correct Patient Yes -Correct Side, Site, Position Yes -Correct Procedure Yes -Procedure Performed Yes -Type of Procedure Debridement -Clinical Debridement Subcutaneous -Post Debridement Size (cm) - Length 0.1 -Post Debridement Size (cm) - Width 0.4 -Post Debridement Size (cm) - Depth 0.2 -Total Square Cm 0.04 -Wound/Ulcer Outcome Not Healed -Ulcer Cleansing Rinsed/ Irrigated with Saline -Foul Odor after Cleansing No -Bioengineered Tissue No -Cetacaine [place] -Bleeding Controlled with Pressure -Treatment Response Procedure Tolerated Well Pain Scale: 0-10 Numeric Is Patient Pain Free? Yes Wound debrided: Right heel wound Wound Grade/Stage: Stage III Type of Debridement: Excisional debridement Anesthesia Used: 4% Lidocaine Solution Depth: Down to and including healthy tissue, in the subcutaneous layer Percentage of wound debrided: 100 Instrument Used: 3mm curette Tissue Removed: Slough and devitalized tissue Severity: Fat Layer Exposed Amount of bleeding with debridement: Mild Bleeding Controlled with: Pressure Patient tolerated procedure well - Additional Wound Wound debrided: Sacral Wound Grade/Stage: Satge IV Type of Debridement: Excisional debridement Anesthesia Used: 4% Lidocaine Solution Depth: Down to and including healthy tissue, in the subcutaneous layer Percentage of wound debrided: 100 Instrument Used: 7mm curette Tissue Removed: Slough and Devitalized tissue Severity: Fat Layer Exposed Amount of bleeding with debridement: Mild Bleeding Controlled with: Pressure Patient tolerated procedure: Patient tolerated procedure well Assessment/Plan Assessment: Stage IV sacral decubitus ulcer. Right heel stage III pressure ulcer. Left heel stage III pressure ulcer - Healed. Plan: Left heel ulcer stays healed. Right heel ulcer also stable. No worsening of hypergranulation of sacral ulcer noted at her last visit. Goood granulation noted of the surrounding sacral ulcer area. Continue wound Vac pressure to scaral wound at 125mmHg. Will consult Dr. Hansen on other managmement possibilities of the hypergranulated area. Continue promogran to right heel ulcer. Continue off loading of both lower extremities. Continue increased protein in diet and protein supplements. Follow-up in 1 week. This note was generated with [employer] dictation software. It may contain incorrect words, spelling, and punctuation that were not noted in checking the note before signing.
--- NOTE | 2017-07-26 15:42 | PN.PCM_ITS ---
(1) Pressure ulcer of left heel, stage 3 Status: Chronic Code(s): L89.623 - Pressure ulcer of left heel, stage 3 (2) Pressure ulcer of right heel, stage 3 Status: Chronic Code(s): L89.613 - Pressure ulcer of right heel, stage 3 (3) Pressure ulcer of sacral region, stage 4 Status: Chronic Code(s): L89.154 - Pressure ulcer of sacral region, stage 4 Type of Wound Date of Service: 07/26/17 Chief Complaint: Stage IV sacral pressure ulceration; bilateral unstageable necrotic heel pressure ulcerations History of Wound: Ms. Chavez is a 67-year-old female who has been seen here about a month ago and managed as a case of bilateral stage III pressure ulcers and stage IV sacral ulcer. Due to insurance issues she has not been seen here in over a month and was seen at another wound center however she returns here today for continued care. 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 She had intraoperative surgical debridement of her sacral wound and has since had a wound VAC. Wound has shown significant progress since initial episode. She currently has a wound VAC to her sacral wound and has been applying collagen to the bilateral heels. She denies chills, fever or otherwise feeling of unwell. Progress of Wound: Stable. No new complaints at this time. Left heel ulcer stays healed. - Physical Exam Vital Signs Temp Pulse Resp BP 97.9 F 78 18 118/60 07/26/17 10:30 07/26/17 10:30 07/26/17 10:30 07/26/17 10:30 General: Alert, Oriented x3, Cooperative, No apparent distress HEENT: Atraumatic, Normocephalic Oral: Moist Mucosa Neck: Supple Lungs: Normal air movement Cardiovascular: Regular rate Extremities: No cyanosis Skin: Ulcer/ Wound Wound Measurements and Assessment WC - Nurse 1 - General Ulcer Measurement Start: 07/05/17 09:25 Freq: Status: Active Protocol: Activity Type Activity Date Activity User E-Sign Co-Sign Detail Recorded Client Recorded Date Recorded By Document 07/26/17 10:30 RB [id number] 07/26/17 10:42 RB 07/26/17 10:30 Wound Center Nurse 1 [Ulcer Assessment] #3 sacrum -Combined with other wound No -Current Size (cm) - Length 2.2 -Current Size (cm) - Width 6.1 -Current Size (cm) - Depth 3 -Total Square Cm 13.42 -Photo Taken No -Epithelialization Small 1-33% -Tunneling No -Undermining/Tunneling Yes -Undermining/Tunneling Starts (O' 12 clock) -Undermining/Tunneling Ends (O'clock) 12 -Maximum Distance (cm) 4 -Circular Undermining Yes -Classification - Pressure Ulcer Stage 4 -Exudate Amt Large (67-100%) -Exudate Type Serosanguineous -Wound Margin Fibrotic Scar, Thickened Scar -Granulation Amt Large (67-100%) -Granulation Quality Hyper- granulation [place] -Slough/Fibrin Yes -Necrosis Amt Small (1-33%) -Necrotic Tissue Type Adherent Slough -Structure Exposed Fascia -Texture (Amanda-wound Skin Appearance) Assessed -Moisture (Amanda-wound Skin Appearance Assessed ) -Color (Amanda-wound Skin Appearance) Assessed -Temperature (Amanda-wound Skin No Abnormality Appearance) (Pt Warm) -Tenderness on Palpation (Amanda-wound No Skin Appearance) -Ulcer Cleansing Rinsed/ Irrigated with Saline -Foul Odor after Cleansing No -Anesthetic Used 4% Lidocaine Solution #1 Right heel -Combined with other wound No -Current Size (cm) - Length 0.4 -Current Size (cm) - Width 0.2 -Current Size (cm) - Depth 0.1 -Total Square Cm 0.08 -Photo Taken No -Tunneling No -Undermining/Tunneling No -Circular Undermining No -Classification - Thickness Full Thickness without Exposed Support Structure -Exudate Amt None Present (0 %) -Wound Margin Distinct, Outline Attached -Granulation Amt Small (1-33%) -Granulation Quality [place] -Slough/Fibrin Yes -Necrosis Amt Large (67-100%) -Necrotic Tissue Type Adherent Slough -Structure Exposed N/A -Texture (Amanda-wound Skin Appearance) Assessed -Moisture (Amanda-wound Skin Appearance Dry/Scaly ) -Color (Amanda-wound Skin Appearance) Assessed -Temperature (Amanda-wound Skin No Abnormality Appearance) (Pt Warm) -Tenderness on Palpation (Amanda-wound No Skin Appearance) -Ulcer Cleansing Rinsed/ Irrigated with Saline -Foul Odor after Cleansing No -Anesthetic Used 4% Lidocaine Solution [Edema Assessment] -Lower Limb Edema Present No WC - Nurse 2 - General Ulcer CM Notes Start: 07/05/17 09:25 Freq: Status: Active Protocol: Activity Type Activity Date Activity User E-Sign Co-Sign Detail Recorded Client Recorded Date Recorded By Document 07/26/17 11:29 DV [id number] 07/26/17 11:39 DV 07/26/17 11:29 Wound Center Nurse 2 [Procedure/Treatment] #3 sacrum -Time 11:31 -Correct Patient Yes -Correct Side, Site, Position Yes -Correct Procedure Yes -Procedure Performed Yes -Type of Procedure Debridement -Clinical Debridement Subcutaneous -Post Debridement Size (cm) - Length 2.5 -Post Debridement Size (cm) - Width 6.2 -Post Debridement Size (cm) - Depth 2.2 -Total Square Cm 15.50 -Wound/Ulcer Outcome Not Healed -Ulcer Cleansing Rinsed/ Irrigated with Saline -Foul Odor after Cleansing No -Bioengineered Tissue No -Bleeding Controlled with Pressure -Treatment Response Procedure Tolerated Well #1 Right heel -Time 11:31 -Correct Patient Yes -Correct Side, Site, Position Yes -Correct Procedure Yes -Procedure Performed Yes -Type of Procedure Debridement -Clinical Debridement Subcutaneous -Post Debridement Size (cm) - Length 0.1 -Post Debridement Size (cm) - Width 0.4 -Post Debridement Size (cm) - Depth 0.2 -Total Square Cm 0.04 -Wound/Ulcer Outcome Not Healed -Ulcer Cleansing Rinsed/ Irrigated with Saline -Foul Odor after Cleansing No -Bioengineered Tissue No -Bleeding Controlled with Pressure -Treatment Response Procedure Tolerated Well [See Physician Procedure note for Specifics] Pain Scale: 0-10 Numeric [Pain] -Is Patient Pain Free? Yes Musculoskeletal: No Muscle Wasting Neurological: Cranial nerves II-XII grossly intact Psych/Mental Status: Normal Affect Debridement Note Post-Debridement Measurements/Treatment WC - Nurse 2 - General Ulcer CM Notes Start: 07/05/17 09:25 Freq: Status: Active Protocol: Activity Type Activity Date Activity User E-Sign Co-Sign Detail Recorded Client Recorded Date Recorded By Document 07/05/17 09:52 DV [id number] 07/05/17 10:09 DV Document 07/12/17 10:00 DV [id number] 07/12/17 10:14 DV Document 02/15/18 11:45 DV [id number] 07/19/17 11:59 DV Document 07/26/17 11:29 DV [id number] 07/26/17 11:39 DV 07/05/17 07/12/17 07/19/17 09:52 10:00 11:45 Wound Center Nurse 2 #3 sacrum -Time 09:55 10:01 11:47 -Correct Patient Yes Yes Yes -Correct Side, Site, Position Yes Yes Yes -Correct Procedure Yes Yes Yes -Procedure Performed Yes Yes Yes -Type of Procedure Debridement Debridement Debridement -Clinical Debridement Subcutaneous Subcutaneous Subcutaneous -Post Debridement Size (cm) - Length 2.7 2.7 2.4 -Post Debridement Size (cm) - Width 7.0 6.1 6.0 -Post Debridement Size (cm) - Depth 2.6 2.1 3.5 -Total Square Cm 18.90 16.47 14.40 -Wound/Ulcer Outcome Not Healed Not Healed Not Healed -Ulcer Cleansing Rinsed/ Rinsed/ Rinsed/ Irrigated with Irrigated with Irrigated with Saline Saline Saline -Foul Odor after Cleansing No Yes No -Bioengineered Tissue No No -Cetacaine [place] No -Bleeding Controlled with Pressure Pressure NA -Treatment Response Procedure Procedure Procedure Tolerated Well Tolerated Well Tolerated Well #2 left heel -Time 09:57 10:04 11:46 -Correct Patient Yes Yes Yes -Correct Side, Site, Position Yes Yes Yes -Correct Procedure Yes Yes -Procedure Performed Yes Yes No -Type of Procedure Debridement Debridement -Clinical Debridement Subcutaneous Subcutaneous -Post Debridement Size (cm) - Length 0.3 0.2 0 -Post Debridement Size (cm) - Width 0.8 0.3 0 -Post Debridement Size (cm) - Depth 0.5 0.2 0 -Total Square Cm 0.24 0.06 0 -Wound/Ulcer Outcome Not Healed Not Healed Healed- Epithelialized -Ulcer Cleansing Rinsed/ Rinsed/ Irrigated with Irrigated with Saline Saline -Foul Odor after Cleansing No No -Bioengineered Tissue No No -Cetacaine [place] No -Bleeding Controlled with Pressure NA -Treatment Response Procedure Tolerated Well #1 Right heel -Time 09:58 10:02 11:48 -Correct Patient Yes Yes Yes -Correct Side, Site, Position Yes Yes Yes -Correct Procedure Yes Yes Yes -Procedure Performed Yes Yes Yes -Type of Procedure Debridement Debridement Debridement -Clinical Debridement Subcutaneous Subcutaneous Subcutaneous -Post Debridement Size (cm) - Length 0.4 0.3 0.2 -Post Debridement Size (cm) - Width 1.1 0.8 0.6 -Post Debridement Size (cm) - Depth 0.6 0.4 0.3 -Total Square Cm 0.44 0.24 0.12 -Wound/Ulcer Outcome Not Healed Not Healed Not Healed -Ulcer Cleansing Rinsed/ Rinsed/ Rinsed/ Irrigated with Irrigated with Irrigated with Saline Saline Saline -Foul Odor after Cleansing No No No -Bioengineered Tissue No No No -Cetacaine [place] No -Bleeding Controlled with Pressure Pressure NA -Treatment Response Procedure Procedure Procedure Tolerated Well Tolerated Well Tolerated Well Pain Scale: 0-10 Numeric Is Patient Pain Free? Yes Yes Yes 07/26/17 11:29 Wound Center Nurse 2 #3 sacrum -Time 11:31 -Correct Patient Yes -Correct Side, Site, Position Yes -Correct Procedure Yes -Procedure Performed Yes -Type of Procedure Debridement -Clinical Debridement Subcutaneous -Post Debridement Size (cm) - Length 2.5 -Post Debridement Size (cm) - Width 6.2 -Post Debridement Size (cm) - Depth 2.2 -Total Square Cm 15.50 -Wound/Ulcer Outcome Not Healed -Ulcer Cleansing Rinsed/ Irrigated with Saline -Foul Odor after Cleansing No -Bioengineered Tissue No -Cetacaine [place] -Bleeding Controlled with Pressure -Treatment Response Procedure Tolerated Well #2 left heel -Time -Correct Patient -Correct Side, Site, Position -Correct Procedure -Procedure Performed -Type of Procedure -Clinical Debridement -Post Debridement Size (cm) - Length -Post Debridement Size (cm) - Width -Post Debridement Size (cm) - Depth -Total Square Cm -Wound/Ulcer Outcome -Ulcer Cleansing -Foul Odor after Cleansing -Bioengineered Tissue -Cetacaine [place] -Bleeding Controlled with -Treatment Response #1 Right heel -Time 11:31 -Correct Patient Yes -Correct Side, Site, Position Yes -Correct Procedure Yes -Procedure Performed Yes -Type of Procedure Debridement -Clinical Debridement Subcutaneous -Post Debridement Size (cm) - Length 0.1 -Post Debridement Size (cm) - Width 0.4 -Post Debridement Size (cm) - Depth 0.2 -Total Square Cm 0.04 -Wound/Ulcer Outcome Not Healed -Ulcer Cleansing Rinsed/ Irrigated with Saline -Foul Odor after Cleansing No -Bioengineered Tissue No -Cetacaine [place] -Bleeding Controlled with Pressure -Treatment Response Procedure Tolerated Well Pain Scale: 0-10 Numeric Is Patient Pain Free? Yes Wound debrided: Right heel wound Wound Grade/Stage: Stage III Type of Debridement: Excisional debridement Anesthesia Used: 4% Lidocaine Solution Depth: Down to and including healthy tissue, in the subcutaneous layer Percentage of wound debrided: 100 Instrument Used: 3mm curette Tissue Removed: Slough and devitalized tissue Severity: Fat Layer Exposed Amount of bleeding with debridement: Mild Bleeding Controlled with: Pressure Patient tolerated procedure well - Additional Wound Wound debrided: Sacral Wound Grade/Stage: Satge IV Type of Debridement: Excisional debridement Anesthesia Used: 4% Lidocaine Solution Depth: Down to and including healthy tissue, in the subcutaneous layer Percentage of wound debrided: 100 Instrument Used: 7mm curette Tissue Removed: Slough and Devitalized tissue Severity: Fat Layer Exposed Amount of bleeding with debridement: Mild Bleeding Controlled with: Pressure Patient tolerated procedure: Patient tolerated procedure well Assessment/Plan Assessment: Stage IV sacral decubitus ulcer. Right heel stage III pressure ulcer. Left heel stage III pressure ulcer - Healed. Plan: Left heel ulcer stays healed. Right heel ulcer also stable. No worsening of hypergranulation of sacral ulcer noted at her last visit. Goood granulation noted of the surrounding sacral ulcer area. Continue wound Vac pressure to scaral wound at 125mmHg. Will consult Dr. Hansen on other managmement possibilities of the hypergranulated area. Continue promogran to right heel ulcer. Continue off loading of both lower extremities. Continue increased protein in diet and protein supplements. Follow-up in 1 week. This note was generated with [employer] dictation software. It may contain incorrect words, spelling, and punctuation that were not noted in checking the note before signing.
== END 2017-08-01 23:59 ==
LOC: WC 10:00
PROVIDERS: Family Provider Family Medicine Geriatric Medicine; PCP Family Medicine Geriatric Medicine; Visit Provider Internal Medicine
DX: L89.154 Pressure ulcer of sacral region, stage 4 (principal); L89.613 Pressure ulcer of right heel, stage 3; L89.623 Pressure ulcer of left heel, stage 3; E03.9 Hypothyroidism, unspecified; K21.9 Gastro-esophageal reflux disease without esophagitis; E66.01 Morbid (severe) obesity due to excess calories; Z68.41 Body mass index [BMI] 40.0-44.9, adult; Z71.3 Dietary counseling and surveillance; G62.9 Polyneuropathy, unspecified; Z79.899 Other long term (current) drug therapy; Z87.891 Personal history of nicotine dependence
CPT/HCPCS: 11042; 11043; 11045; 87070; 87075; 87077; 87186; 87205; 97605; 99213; G0463

== ENCOUNTER → 2017-08-02 17:35 | Outpatient (CLI) | payer MEDICARE, OTHER, SELFPAY | PROVIDERS: Family Provider Family Medicine Geriatric Medicine; PCP Family Medicine Geriatric Medicine; Visit Provider Nurse Practitioner Women's Health | DX: N89.8 Other specified noninflammatory disorders of vagina (principal) | CPT/HCPCS: 87070; 87205 ==

== ENCOUNTER → 2017-08-09 10:13 | Outpatient (CLI) | payer MEDICARE, OTHER, SELFPAY ==
[2017-08-09 10:20] LABS: Color, Urine Yellow (Yellow); Glucose, Dipstick Normal (Normal); Ketone-Dipstick Negative (Negative); Leukocyte Esterase-Dipstick Negative /ul (Negative); Nitrite-Dipstick Negative (Negative); Occult Blood-Urine Negative /ul (Negative); Protein-Dipstick Negative (Negative); Urine Bilirubin Dipstick Negative (Negative); Urine Clarity Clear (Clear); Urine Urobilinogen Normal (Normal)
[2017-08-09 10:26] LABS: White Blood Cells 0-5 SEEN /hpf (0-5)
[2017-08-09 10:27] LABS: Bacteria RARE /hpf (None Seen); Mucous, Urine 1+ /hpf (<or=2+); Red Blood Cells-Urine 0 SEEN /hpf (0-5); Squamous Epithelial Cells - UA 0-5 SEEN /hpf (5-10)
== END ==
PROVIDERS: Surgery; Visit Provider Physician Assistant
DX: R82.90 Unspecified abnormal findings in urine (principal)
CPT/HCPCS: 81001

== ENCOUNTER → 2017-08-09 13:27 | Outpatient (CLI) | payer MEDICARE, OTHER, SELFPAY ==
--- NOTE | 2017-08-09 13:28 | CT_ITS ---
STUDY: CT ABDOMEN AND PELVIS WITH CONTRAST REASON FOR EXAM: Female, 67 years old. Colovaginal fistula. Sacral pressure wound. RADIATION DOSAGE (If Supplied By Facility): CTDIvol = ( 14.88 ) mGy, DLP = ( 1219.64 ) mGycm TECHNIQUE: Transaxial images were obtained from the dome of the diaphragm to the symphysis pubis with oral contrast. 100 ml of Isovue 300 contrast was administered. Sagittal and coronal images were reconstructed. Individualized dose optimization techniques were used for this CT. COMPARISON: March 02, 2017. FINDINGS: The visualized lung bases are unremarkable. The visualized portions of the heart are within normal limits. Normal liver. Normal gallbladder and extrahepatic biliary system. Normal spleen. Normal pancreas. Normal bilateral adrenal glands. There is 0.3 cm stone at the lower pole of the right kidney. There is 0.2 cm stone at the lower pole of the left kidney. Normal visualized stomach. Normal small intestine. There is diverticulosis, with thickening of the sigmoid colon wall, and pelvic pericolonic inflammation changes consistent with acute diverticulitis. There is adjacent extraluminal tract with air extending to the vaginal cuff with small amount of air in the upper vagina consistent with colovaginal fistula, series 2 images 101/151 through 106/151. The appendix is visualized and appears normal. There is diffuse atherosclerotic calcification of the abdominal aorta, without a demonstrated aneurysm. Normal inferior vena cava. Normal retroperitoneum. Normal urinary bladder. There is absence of the uterus consistent with a prior hysterectomy. Normal abdominal wall. Mild degenerative change of the spine. Degenerative change of the bilateral hips. There is a sacral decubitus ulcer with skin thickening and focal defect. CT/Abdomen/Pelvis WITH Contrast IMPRESSION: Sigmoid diverticulitis with extraluminal air extending to the vaginal cuff consistent with colovaginal fistula. No obstruction or abscess. Small renal stones. No hydronephrosis. Sacral decubitus ulcer. No osseous destruction. Electronically Signed: Dean Roman MD at 23:20 EST , Service support ,
== END ==
PROVIDERS: Family Provider Family Medicine Geriatric Medicine; PCP Family Medicine Geriatric Medicine; Visit Provider Internal Medicine
DX: L89.154 Pressure ulcer of sacral region, stage 4 (principal); N82.4 Other female intestinal-genital tract fistulae; N20.0 Calculus of kidney; R82.90 Unspecified abnormal findings in urine
CPT/HCPCS: 74177; 81001; Q9967

== ENCOUNTER 2017-08-21 05:45 | Day surgery (SDC) | payer MEDICARE, OTHER, SELFPAY ==
[2017-08-21] VITALS (8 sets, daily range): BP systolic 97–109; BP diastolic 58–92; PULSE 80–86; RESP 16–20; TEMP 36.4–36.6; O2SAT 93–96; BMI 36.0
--- NOTE | 2017-08-21 06:44 | PCM.OPRPT ---
Problem List (1) Colovaginal fistula Status: Acute Report of Operation Date of Procedure: 08/21/17 Pre-Operative Diagnosis: Colovaginal fistula Post-Operative Diagnosis: Colovaginal fistula. Fixed tight sigmoid angulation at 40 cm. Sigmoid diverticulosis Surgery/Procedure Performed:: Flexible sigmoidoscopy Description of Surgical Findings:: Timeout and informed consent was obtained. 67-year-old female was taken to the endoscopy suite. Plans were to complete a full colonoscopy. The patient has a wound VAC in place on her sacrum. She is markedly diminished mobility of her hips. Timeout and informed consent was obtained. Throughout the procedure in aliquots she received total 150 mg of Demerol and 4 mg of Versed is intravenous sedation. Digital rectal exam performed. Grade 2 internal hemorrhoids. Slightly anal tone. No mass lesions. Flexible colonoscope inserted in the rectum. It was advanced to 40 cm where there was an extraordinarily tight angulation of the sigmoid colon that appeared to be quite fixed and indurated. Despite attempts I could not transgress past this area. This correlates with an area on barium enema of acute angulation. I did not feel comfortable attempting to transgress past this area. The scope was withdrawn. The sigmoid had some scattered diverticulosis. There were no evidence of any acute mucosal problems. Impression I strongly suspect that the site of the colovaginal fistula is at the site of acute angulation and induration at 40 cm. Scattered diverticulosis identified. The patient has dramatically restricted range of motion of her hips. This will certainly add to the difficulty of her procedure. Will consider tertiary referral. Dallas Terrazas M.D., F.A.C.S. Type of Anesthesia:: IV Sedation
== END 2017-08-21 07:59 | disposition home or self-care (01) ==
LOC: EN 05:47 → AC 05:47
PROVIDERS: Family Provider Family Medicine Geriatric Medicine; PCP Family Medicine Geriatric Medicine; Visit Provider Surgery
PROC: 0DJD8ZZ Inspection of Lower Intestinal Tract, Via Natural or Artificial Opening Endoscopic (ICD-10-PCS; CPT 45378; principal; 2017-08-21 06:25)
DX: N82.3 Fistula of vagina to large intestine (principal); K57.30 Diverticulosis of large intestine without perforation or abscess without bleeding; K64.1 Second degree hemorrhoids; D64.9 Anemia, unspecified; E07.9 Disorder of thyroid, unspecified; R01.1 Cardiac murmur, unspecified; Z82.49 Family history of ischemic heart disease and other diseases of the circulatory system; E66.9 Obesity, unspecified; Z68.36 Body mass index [BMI] 36.0-36.9, adult; Z87.891 Personal history of nicotine dependence; Z79.899 Other long term (current) drug therapy
CPT/HCPCS: 45330

== ENCOUNTER → 2017-08-27 12:57 | Outpatient (CLI) | payer MEDICARE, OTHER, SELFPAY ==
--- NOTE | 2017-08-27 12:59 | CDU_ITS ---
Reason For Study: BRUIT Rt. Velocities/BP Lt. Velocities/BP Prox CCA 131.0/32.2 cm/sec. Prox CCA 110.0/23.6 cm/sec. Mid CCA 101.0/26.7 cm/sec. Mid CCA 106.0/30.6 cm/sec. Dist CCA 92.7/29.1 cm/sec. Dist CCA 105.0/35.4 cm/sec. Prox ICA 91.1/22.0 cm/sec. Prox ICA 106.0/26.7 cm/sec. Mid ICA 81.7/22.0 cm/sec. Mid ICA 113.0/36.9 cm/sec. Dist ICA 80.4/32.3 cm/sec. Dist ICA 57.4/25.1 cm/sec. Rt. ICA/CCA = 91.1/101.0=0.9. Lt. ICA/CCA = 113.0/106.0=1.1. Prox ECA 102.0/11.0 cm/sec. Prox ECA 82.5/23.6 cm/sec. Rt. Vert. 47.1/17.3 cm/sec. Lt. Vert. 46.0/16.5 cm/sec. Right Extracranial There is homogeneous, smooth atherosclerotic plaque noted in the right common carotid artery. There is homogeneous, smooth atherosclerotic plaque noted in the right internal carotid artery. There is homogeneous, smooth atherosclerotic plaque noted in the right external carotid artery. The right external carotid artery is not well visualized. Antegrade flow is noted in the right vertebral artery. Left Extracranial There is homogeneous, smooth atherosclerotic plaque noted in the left common carotid artery. There is heterogeneous, irregular atherosclerotic plaque noted in the left internal carotid artery. There is intimal thickening but no significant atherosclerotic plaque noted in the left external carotid artery. The left external carotid artery is not well visualized. Antegrade flow is noted in the left vertebral artery. Procedure Carotid Duplex [id number]. The exam was diagnostic. Exam performed in department. Interpretation Summary Minimal plague at the proximal right internal carotid with <50% stenosis. Normal flow right external carotid Minimal irregular plague at the proximal left internal carotid with <50% stenosis. Normal flow left external carotid Patent and antegrade vertebrals bilaterally. Ordering Physician: Dallas Terrazas Referring Physician: Chema Sanchez Chi Performed By: Jana Arriaga, SANDRINE, RVT
== END ==
PROVIDERS: Family Provider Family Medicine Geriatric Medicine; PCP Family Medicine Geriatric Medicine; Visit Provider Surgery
DX: R09.89 Other specified symptoms and signs involving the circulatory and respiratory systems (principal)
CPT/HCPCS: 93880

== ENCOUNTER 2017-08-29 10:45 | Outpatient (RCR) | payer MEDICARE, OTHER, SELFPAY ==
[2017-08-02 00:39] VITALS: BP 114/85; PULSE 78; RESP 18; TEMP 36.6; BMI 40.5
[2017-08-02 11:31] VITALS: BP 117/77; PULSE 87; RESP 18; TEMP 36.5; BMI 40.5
--- NOTE | 2017-08-02 14:06 | PN.PCM_ITS ---
(1) Pressure ulcer of right heel, stage 3 Status: Chronic Current Visit: No Code(s): L89.613 - Pressure ulcer of right heel, stage 3 (2) Pressure ulcer of sacral region, stage 4 Status: Chronic Current Visit: No Code(s): L89.154 - Pressure ulcer of sacral region, stage 4 Type of Wound Date of Service: 08/02/17 Chief Complaint: Stage IV sacral pressure ulceration; bilateral unstageable necrotic heel pressure ulcerations History of Wound: Ms. Chavez is a 67-year-old female who has been seen here about a month ago and managed as a case of bilateral stage III pressure ulcers and stage IV sacral ulcer. Due to insurance issues she has not been seen here in over a month and was seen at another wound center however she returns here today for continued care. 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 She had intraoperative surgical debridement of her sacral wound and has since had a wound VAC. Wound has shown significant progress since initial episode. She currently has a wound VAC to her sacral wound and has been applying collagen to the bilateral heels. She denies chills, fever or otherwise feeling of unwell. Progress of Wound: Stabe. No new complaints at this time. - Physical Exam Vital Signs Temp Pulse Resp BP 97.7 F L 87 18 117/77 08/02/17 11:31 08/02/17 11:31 08/02/17 11:31 08/02/17 11:31 General: Alert, Oriented x3, Cooperative, No apparent distress HEENT: Atraumatic, Normocephalic Oral: Moist Mucosa Neck: Supple Lungs: Normal air movement Cardiovascular: Regular rate Extremities: No cyanosis Wound Measurements and Assessment WC - Nurse 1 - General Ulcer Measurement Start: 08/02/17 11:31 Freq: Status: Active Protocol: Activity Type Activity Date Activity User E-Sign Co-Sign Detail Recorded Client Recorded Date Recorded By Document 08/02/17 11:31 DL [id number] 08/02/17 11:43 DL 08/02/17 11:31 Wound Center Nurse 1 [Ulcer Assessment] #3 sacrum -Current Size (cm) - Length 2.6 -Current Size (cm) - Width 6 -Current Size (cm) - Depth 2.5 -Total Square Cm 15.6 -Photo Taken No -Maximum Distance #2 (cm) 3.9 -Circular Undermining Yes -Exudate Amt Large (67-100%) -Exudate Type Serosanguineous -Wound Margin Distinct, Outline Attached -Granulation Amt Large (67-100%) -Granulation Quality Hyper- granulation [place] -Necrosis Amt Small (1-33%) -Necrotic Tissue Type Adherent Slough -Structure Exposed N/A -Texture (Amanda-wound Skin Appearance) Scarring -Moisture (Amanda-wound Skin Appearance No Abnormality ) -Color (Amanda-wound Skin Appearance) No Abnormality -Tenderness on Palpation (Amanda-wound No Skin Appearance) -Ulcer Cleansing Wound Cleanser -Foul Odor after Cleansing No -Anesthetic Used 4% Lidocaine Solution #1 Right heel -Current Size (cm) - Length 0.1 -Current Size (cm) - Width 0.1 -Current Size (cm) - Depth 0.1 -Total Square Cm 0.01 -Photo Taken No -Exudate Amt None Present (0 %) -Wound Margin Flat & Intact -Granulation Amt Large (67-100%) -Granulation Quality [place] -Necrosis Amt Small (1-33%) -Necrotic Tissue Type Adherent Slough -Structure Exposed N/A -Texture (Amanda-wound Skin Appearance) Scarring -Moisture (Amanda-wound Skin Appearance Dry/Scaly ) -Color (Amanda-wound Skin Appearance) No Abnormality -Tenderness on Palpation (Amanda-wound No Skin Appearance) -Ulcer Cleansing Wound Cleanser -Foul Odor after Cleansing No -Anesthetic Used 4% Lidocaine Solution WC - Nurse 2 - General Ulcer CM Notes Start: 08/02/17 11:31 Freq: Status: Active Protocol: Activity Type Activity Date Activity User E-Sign Co-Sign Detail Recorded Client Recorded Date Recorded By Document 08/02/17 12:21 DV [id number] 08/02/17 12:22 DV 08/02/17 12:21 Wound Center Nurse 2 [Procedure/Treatment] #3 sacrum -Time 12:21 -Correct Patient Yes -Correct Side, Site, Position Yes -Correct Procedure Yes -Procedure Performed Yes -Type of Procedure Debridement -Clinical Debridement Subcutaneous -Post Debridement Size (cm) - Length 2.5 -Post Debridement Size (cm) - Width 6.0 -Post Debridement Size (cm) - Depth 2.1 -Total Square Cm 15.00 -Wound/Ulcer Outcome Not Healed -Ulcer Cleansing Rinsed/ Irrigated with Saline -Foul Odor after Cleansing No -Bioengineered Tissue No -Bleeding Controlled with Pressure -Treatment Response Procedure Tolerated Well #1 Right heel -Time 12:22 -Correct Patient Yes -Correct Side, Site, Position Yes -Procedure Performed No -Post Debridement Size (cm) - Length 0 -Post Debridement Size (cm) - Width 0 -Post Debridement Size (cm) - Depth 0 -Total Square Cm 0 -Wound/Ulcer Outcome Healed- Epithelialized [See Physician Procedure note for Specifics] Pain Scale: 0-10 Numeric [Pain] -Is Patient Pain Free? Yes Musculoskeletal: No Muscle Wasting Neurological: Cranial nerves II-XII grossly intact Psych/Mental Status: Normal Affect Debridement Note Post-Debridement Measurements/Treatment WC - Nurse 2 - General Ulcer CM Notes Start: 08/02/17 11:31 Freq: Status: Active Protocol: Activity Type Activity Date Activity User E-Sign Co-Sign Detail Recorded Client Recorded Date Recorded By Document 08/02/17 12:21 DV [id number] 08/02/17 12:22 DV 08/02/17 12:21 Wound Center Nurse 2 #3 sacrum -Time 12:21 -Correct Patient Yes -Correct Side, Site, Position Yes -Correct Procedure Yes -Procedure Performed Yes -Type of Procedure Debridement -Clinical Debridement Subcutaneous -Post Debridement Size (cm) - Length 2.5 -Post Debridement Size (cm) - Width 6.0 -Post Debridement Size (cm) - Depth 2.1 -Total Square Cm 15.00 -Wound/Ulcer Outcome Not Healed -Ulcer Cleansing Rinsed/ Irrigated with Saline -Foul Odor after Cleansing No -Bioengineered Tissue No -Bleeding Controlled with Pressure -Treatment Response Procedure Tolerated Well #1 Right heel -Time 12:22 -Correct Patient Yes -Correct Side, Site, Position Yes -Procedure Performed No -Post Debridement Size (cm) - Length 0 -Post Debridement Size (cm) - Width 0 -Post Debridement Size (cm) - Depth 0 -Total Square Cm 0 -Wound/Ulcer Outcome Healed- Epithelialized Pain Scale: 0-10 Numeric Is Patient Pain Free? Yes Wound debrided: Sacral Ulcer Wound Grade/Stage: Stage IV Type of Debridement: Excisional debridement Anesthesia Used: 4% Lidocaine Solution Depth: Down to and including healthy tissue, in the subcutaneous layer Percentage of wound debrided: 100 Instrument Used: 7mm curette Tissue Removed: Slough and Devitalized tissue Severity: Fat Layer Exposed Amount of bleeding with debridement: Mild Bleeding Controlled with: Pressure Patient tolerated procedure well Assessment/Plan Assessment: Stage IV sacral decubitus ulcer. Right heel stage III pressure ulcer. - Healed. Left heel stage III pressure ulcer - Healed. Plan: Both heel ulcers are now healed. Sacral ulcer still with hypergranulation predominantly in the middle. She reports complaince with her wound Vac now at a pressure of 125mmHg. She denies increased pain or discharge from the site. No other signs suggestive of infection. Circunferential undermining still present. Will culture wound and order a CT scan per consult recommendation. Scheduled to follow up with Dr. Hansen on 08/20. Continue wound vac to sacral ulcer. Continue offloading of lower extremities ( heels ). Continue increased protein in diet and protein supplements. Follow-up in 1 week. This note was generated with [employer] dictation software. It may contain incorrect words, spelling, and punctuation that were not noted in checking the note before signing.
[2017-08-06 11:28] VITALS: BP 136/76; PULSE 94; RESP 16; TEMP 37.5; BMI 40.5
--- NOTE | 2017-08-06 22:30 | PCM.WC.HP ---
History of Present Illness Date of Service: 08/06/17 - WOUND CENTER CONSULT REFERRING PHYSICIAN: Dr. Santiago. HEALTH PROGRAM ANALYST: Dr. Hansen. Chief Complaint: Stage IV sacral pressure ulceration; bilateral unstageable necrotic heel pressure ulcerations History of Wound: Ms. Chavez is a 67-year-old female who has been seen here about a month ago and managed as a case of bilateral stage III pressure ulcers and stage IV sacral ulcer. Due to insurance issues she has not been seen here in over a month and was seen at another wound center however she returns here today for continued care. 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 She had intraoperative surgical debridement of her sacral wound and has since had a wound VAC. Wound has shown significant progress since initial episode. She currently has a wound VAC to her sacral wound and has been applying collagen to the bilateral heels. She denies chills, fever or otherwise feeling of unwell. Past Medical History Past Medical History: Chronic Problems (Last Updated 08/09/17 @ 08:06 by Liz Baker) Pressure ulcer of right heel, stage 3 (Chronic) Pressure ulcer of left heel, stage 3 (Chronic) GERD (gastroesophageal reflux disease) (Chronic) Depression (Chronic) Hypothyroidism (Chronic) Pressure ulcer, heel, right, unstageable (Chronic) Pressure ulcer, heel, left, unstageable (Chronic) Pressure ulcer of sacral region, stage 4 (Chronic) Neuropathy (Chronic) Hypertension (Chronic) GERD (gastroesophageal reflux disease) (Chronic) Morbid obesity with BMI of 40.0-44.9, adult (Chronic) Surgical History: - - As previously undergone hysterectomy. She is a Ab0. Surgical debridement of her sacral pressure ulceration was performed on April 12, 2017, at [facility]. Allergies/Adverse Reactions: Allergies bee venom protein (honey bee) Allergy (Verified 08/09/17 08:07) Angioedema Home Medications: Ambulatory Orders Medication Instructions Recorded Levothyroxine [Synthroid] 25 mcg PO DAILY 03/02/17 Ensure Enlive 120 ml PO 4X/DAY 03/16/17 cholecalciferol (vitamin D3) 50,000 unit PO QMONTH 08/02/17 50,000 unit capsule Ascorbic Acid 500 mg PO BID 08/21/17 Methenamine Hippurate 1 tab PO BID 08/21/17 Potassium Chloride [K-Dur] 40 meq PO DAILY 12/26/17 - Family History Maternal Family History: Family History (Last Reviewed 08/09/17 @ 07:40 by Liz Baker) Father Myocardial infarction Cancer Brother Heart disease Mother COPD (chronic obstructive pulmonary disease) Unknown, - - Patient's mother at the age of 82 with a history of chronic obstructive pulmonary disease. Paternal Family History: Family History (Last Reviewed 08/09/17 @ 07:40 by Liz Baker) Father Myocardial infarction Cancer Brother Heart disease Mother COPD (chronic obstructive pulmonary disease) Unknown, - - Patient's father at age of 79 with history of lung cancer and myocardial infarction. Lives: Alone Smoking Status: Former smoker Tobacco Use: Non-smoker Alcohol: None Drugs: None Review of Systems Constitutional: Denies: Chills, Fever Eyes: Denies: Cataracts, Pain HEENT: Denies: Nasal Congestion, Sore Throat Cardiovascular: Denies: Chest Pain Respiratory: Denies: Cough, Shortness of Breath Gastrointestinal: Denies: Abdominal Pain, Constipation, Diarrhea, Nausea, Vomiting Musculoskeletal: Denies: Arm Pain, Back Pain, Leg Pain, Neck Pain Skin: Reports: Wounds - has sacral pressure sore. Neurological: Denies: Headaches Psychiatric: Denies: Anxiety, Depression Endocrine: Denies: Heat/ Cold Intolerance, Polydipsia, Polyuria Hematologic/ Lymphatic: Denies: Easy Bruising, Easy Bleeding - Physical Exam PHYSICAL EXAM General - Alert and Oriented HEENT - PERRL. EOMI. Throat is clear. Neck - Supple and nontender. No cervical adenopathy. Lungs - Clear to auscultation. Heart - Regular rate and rhythm. Abdomen - Soft and nondistended. Extremities - FROM. No axillary adenopathy. Radial pulses are palpable. Skin - Has a sacral pressure sore, Stage IV. Neuro - CN II-XII grossly intact. Psych - Normal mood and affect. Vital Signs Temp Pulse Resp BP 99.5 F H 94 16 136/76 H 08/06/17 11:28 08/06/17 11:28 08/06/17 11:28 08/06/17 11:28 Wound Measurements and Assessment WC - Nurse 1 - General Ulcer Measurement Start: 08/02/17 11:31 Freq: Status: Active Protocol: Activity Type Activity Date Activity User E-Sign Co-Sign Detail Recorded Client Recorded Date Recorded By Document 08/06/17 11:28 [facility] [id number] 08/06/17 11:43 [facility] 08/06/17 11:28 Wound Center Nurse 1 [Ulcer Assessment] #3 sacrum -Combined with other wound No -Current Size (cm) - Length 2.4 -Current Size (cm) - Width 5.7 -Current Size (cm) - Depth 2.8 -Total Square Cm 13.68 -Date of Last Picture (Recall this 08/06/17 field) -Photo Taken Yes -Epithelialization None Present -Tunneling No -Undermining/Tunneling Yes -Undermining/Tunneling Starts (O' 12 clock) -Undermining/Tunneling Ends (O'clock) 12 -Maximum Distance (cm) 4.8 -Circular Undermining Yes -Exudate Amt Medium (34-66%) -Exudate Type Serosanguineous -Wound Margin Distinct, Outline Attached -Granulation Amt Large (67-100%) -Granulation Quality Pale [place] -Slough/Fibrin Yes -Necrosis Amt Small (1-33%) -Necrotic Tissue Type Adherent Slough -Structure Exposed N/A -Texture (Amanda-wound Skin Appearance) Scarring -Moisture (Amanda-wound Skin Appearance Assessed ) -Color (Amanda-wound Skin Appearance) Assessed -Temperature (Amanda-wound Skin No Abnormality Appearance) (Pt Warm) -Tenderness on Palpation (Amanda-wound No Skin Appearance) -Ulcer Cleansing Rinsed/ Irrigated with Saline -Foul Odor after Cleansing No -Anesthetic Used 4% Lidocaine Solution WC - Nurse 2 - General Ulcer CM Notes Start: 08/02/17 11:31 Freq: Status: Active Protocol: Activity Type Activity Date Activity User E-Sign Co-Sign Detail Recorded Client Recorded Date Recorded By Document 08/06/17 12:06 [id number] 08/06/17 12:22 08/06/17 12:06 Wound Center Nurse 2 [Procedure/Treatment] -Correct Patient No -Correct Side, Site, Position No -Correct Procedure No -Procedure Performed No -Wound/Ulcer Outcome Not Healed -Ulcer Cleansing Rinsed/ Irrigated with Saline -Foul Odor after Cleansing No -Bioengineered Tissue No -Bleeding Controlled with NA [See Physician Procedure note for Specifics] Pain Scale: 0-10 Numeric [Pain] -Is Patient Pain Free? Yes Debridement Note Post-Debridement Measurements/Treatment WC - Nurse 2 - General Ulcer CM Notes Start: 08/02/17 11:31 Freq: Status: Active Protocol: Activity Type Activity Date Activity User E-Sign Co-Sign Detail Recorded Client Recorded Date Recorded By Document 08/02/17 12:21 DV [id number] 08/02/17 12:22 DV Document 08/06/17 12:06 JF [id number] 08/06/17 12:22 08/02/17 08/06/17 12:21 12:06 Wound Center Nurse 2 #3 sacrum -Time 12:21 -Correct Patient Yes No -Correct Side, Site, Position Yes No -Correct Procedure Yes No -Procedure Performed Yes No -Type of Procedure Debridement -Clinical Debridement Subcutaneous -Post Debridement Size (cm) - Length 2.5 -Post Debridement Size (cm) - Width 6.0 -Post Debridement Size (cm) - Depth 2.1 -Total Square Cm 15.00 -Wound/Ulcer Outcome Not Healed Not Healed -Ulcer Cleansing Rinsed/ Rinsed/ Irrigated with Irrigated with Saline Saline -Foul Odor after Cleansing No No -Bioengineered Tissue No No -Bleeding Controlled with Pressure NA -Treatment Response Procedure Tolerated Well #1 Right heel -Time 12:22 -Correct Patient Yes -Correct Side, Site, Position Yes -Procedure Performed No -Post Debridement Size (cm) - Length 0 -Post Debridement Size (cm) - Width 0 -Post Debridement Size (cm) - Depth 0 -Total Square Cm 0 -Wound/Ulcer Outcome Healed- Epithelialized Pain Scale: 0-10 Numeric Is Patient Pain Free? Yes Yes Wound debrided: #3 Sacrum. Laterality: Not Applicable Wound Grade/Stage: IV. No debridement was completed today - This pressure sore needs to be excised in the operating room after she is evaluated for a fistula. Assessment/Plan Assessment: Stage IV sacral decubitus ulcer. Right heel stage III pressure ulcer. - Healed. Left heel stage III pressure ulcer - Healed. Plan: Both heel ulcers are now healed. Sacral ulcer still with hypergranulation predominantly in the middle. She reports complaince with her wound Vac now at a pressure of 125mmHg. She denies increased pain or discharge from the site. No other signs suggestive of infection. Circunferential undermining still present. Will culture wound and order a CT scan per consult recommendation. Scheduled to follow up with Dr. Hansen on 08/20. Continue wound vac to sacral ulcer. Continue offloading of lower extremities ( heels ). Continue increased protein in diet and protein supplements. Follow-up in 1 week. This note was generated with [employer] dictation software. It may contain incorrect words, spelling, and punctuation that were not noted in checking the note before signing.
[2017-08-16 09:19] VITALS: BP 105/68; PULSE 89; RESP 18; TEMP 37.1; BMI 40.5
--- NOTE | 2017-08-16 12:07 | PCM.WC.PN ---
(1) Pressure ulcer of right heel, stage 3 Status: Chronic Current Visit: No Code(s): L89.613 - Pressure ulcer of right heel, stage 3 (2) Pressure ulcer of sacral region, stage 4 Status: Chronic Current Visit: No Code(s): L89.154 - Pressure ulcer of sacral region, stage 4 Type of Wound Date of Service: 08/16/17 Chief Complaint: Stage IV sacral pressure ulceration; bilateral unstageable necrotic heel pressure ulcerations History of Wound: Ms. Chavez is a 67-year-old female who has been seen here about a month ago and managed as a case of bilateral stage III pressure ulcers and stage IV sacral ulcer. Due to insurance issues she has not been seen here in over a month and was seen at another wound center however she returns here today for continued care. 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 She had intraoperative surgical debridement of her sacral wound and has since had a wound VAC. Wound has shown significant progress since initial episode. She currently has a wound VAC to her sacral wound and has been applying collagen to the bilateral heels. She denies chills, fever or otherwise feeling of unwell. Progress of Wound: Stabe. No new complaints at this time. - Physical Exam Vital Signs Temp Pulse Resp BP 98.7 F 89 18 105/68 08/16/17 09:19 08/16/17 09:19 08/16/17 09:19 08/16/17 09:19 General: Alert, Oriented x3, Cooperative, No apparent distress HEENT: Atraumatic, Normocephalic Oral: Moist Mucosa Neck: Supple Lungs: Normal air movement Cardiovascular: Regular rate Abdomen: Soft Skin: Ulcer/ Wound Wound Measurements and Assessment WC - Nurse 1 - General Ulcer Measurement Start: 08/02/17 11:31 Freq: Status: Active Protocol: Activity Type Activity Date Activity User E-Sign Co-Sign Detail Recorded Client Recorded Date Recorded By Document 08/16/17 09:19 DL [id number] 08/16/17 09:29 DL 08/16/17 09:19 Wound Center Nurse 1 [Ulcer Assessment] #3 sacrum -Current Size (cm) - Length 1.8 -Current Size (cm) - Width 4.8 -Current Size (cm) - Depth 3.8 -Total Square Cm 8.64 -Photo Taken No -Exudate Amt Large (67-100%) -Exudate Type Serosanguineous -Wound Margin Distinct, Outline Attached -Granulation Amt Large (67-100%) -Granulation Quality [place] -Necrosis Amt Small (1-33%) -Necrotic Tissue Type Adherent Slough -Structure Exposed N/A -Texture (Amanda-wound Skin Appearance) Scarring -Moisture (Amanda-wound Skin Appearance Maceration ) -Color (Amanda-wound Skin Appearance) No Abnormality -Temperature (Amanda-wound Skin No Abnormality Appearance) (Pt Warm) -Ulcer Cleansing Wound Cleanser -Foul Odor after Cleansing No -Anesthetic Used 4% Lidocaine Solution WC - Nurse 2 - General Ulcer CM Notes Start: 08/02/17 11:31 Freq: Status: Active Protocol: Activity Type Activity Date Activity User E-Sign Co-Sign Detail Recorded Client Recorded Date Recorded By Document 08/16/17 09:57 DV [id number] 08/16/17 10:03 08/16/17 09:57 Wound Center Nurse 2 [Procedure/Treatment] -Time 09:59 -Correct Patient Yes -Correct Side, Site, Position Yes -Correct Procedure Yes -Procedure Performed Yes -Type of Procedure Debridement -Clinical Debridement Subcutaneous -Post Debridement Size (cm) - Length 2.0 -Post Debridement Size (cm) - Width 5.0 -Post Debridement Size (cm) - Depth 1.2 -Total Square Cm 10.00 -Wound/Ulcer Outcome Not Healed -Ulcer Cleansing Rinsed/ Irrigated with Saline -Foul Odor after Cleansing No -Bioengineered Tissue No -Bleeding Controlled with Pressure -Treatment Response Procedure Tolerated Well [See Physician Procedure note for Specifics] Pain Scale: 0-10 Numeric [Pain] -Is Patient Pain Free? Yes Musculoskeletal: No Muscle Wasting Neurological: Cranial nerves II-XII grossly intact Psych/Mental Status: Normal Affect Debridement Note Post-Debridement Measurements/Treatment - Nurse 2 - General Ulcer CM Notes Start: 08/02/17 11:31 Freq: Status: Active Protocol: Activity Type Activity Date Activity User E-Sign Co-Sign Detail Recorded Client Recorded Date Recorded By Document 08/02/17 12:21 DV [id number] 08/02/17 12:22 DV Document 08/06/17 12:06 [id number] 03/05/18 12:22 JF Document 08/16/17 09:57 DV [id number] 08/16/17 10:03 DV 08/02/17 08/06/17 08/16/17 12:21 12:06 09:57 Wound Center Nurse 2 #3 sacrum -Time 12:21 09:59 -Correct Patient Yes No Yes -Correct Side, Site, Position Yes No Yes -Correct Procedure Yes No Yes -Procedure Performed Yes No Yes -Type of Procedure Debridement Debridement -Clinical Debridement Subcutaneous Subcutaneous -Post Debridement Size (cm) - Length 2.5 2.0 -Post Debridement Size (cm) - Width 6.0 5.0 -Post Debridement Size (cm) - Depth 2.1 1.2 -Total Square Cm 15.00 10.00 -Wound/Ulcer Outcome Not Healed Not Healed Not Healed -Ulcer Cleansing Rinsed/ Rinsed/ Rinsed/ Irrigated with Irrigated with Irrigated with Saline Saline Saline -Foul Odor after Cleansing No No No -Bioengineered Tissue No No No -Bleeding Controlled with Pressure NA Pressure -Treatment Response Procedure Procedure Tolerated Well Tolerated Well #1 Right heel -Time 12:22 -Correct Patient Yes -Correct Side, Site, Position Yes -Procedure Performed No -Post Debridement Size (cm) - Length 0 -Post Debridement Size (cm) - Width 0 -Post Debridement Size (cm) - Depth 0 -Total Square Cm 0 -Wound/Ulcer Outcome Healed- Epithelialized Pain Scale: 0-10 Numeric Is Patient Pain Free? Yes Yes Yes Wound debrided: Sacral Ulcer Wound Grade/Stage: Stage IV Type of Debridement: Excisional debridement Anesthesia Used: 4% Lidocaine Solution Depth: Down to and including healthy tissue, in the subcutaneous layer Percentage of wound debrided: 100 Instrument Used: 5mm curette Tissue Removed: Biofilm and Slough Severity: Fat Layer Exposed Amount of bleeding with debridement: Mild Bleeding Controlled with: Pressure Patient tolerated procedure well Assessment/Plan Assessment: Stage IV sacral decubitus ulcer. Right heel stage III pressure ulcer. - Healed. Left heel stage III pressure ulcer - Healed. Plan: Sacral ulcer still with hypergranulation predominantly in the middle. Ulcer circumference however is reducing. She reports complaince with her wound Vac now at a pressure of 125mmHg. She denies increased pain or discharge from the site. She is also on ABx due to positive wound culture. She did follow up with Dr Hansen as recommended and plan if for surgical debridement however, she has a new diagnosis of a possible colovaginal fistula and plan is to hold up surgical debridement until that is taken care of. Debridement done as documented above. Procedure was well tolerated. Continue wound vac to sacral ulcer. Continue offloading of lower extremities ( heels ). Continue increased protein in diet and protein supplements. Follow-up in 1 week. This note was generated with [employer] dictation software. It may contain incorrect words, spelling, and punctuation that were not noted in checking the note before signing.
--- NOTE | 2017-08-16 12:13 | PN.PCM_ITS ---
(1) Pressure ulcer of right heel, stage 3 Status: Chronic Current Visit: No Code(s): L89.613 - Pressure ulcer of right heel, stage 3 (2) Pressure ulcer of sacral region, stage 4 Status: Chronic Current Visit: No Code(s): L89.154 - Pressure ulcer of sacral region, stage 4 Type of Wound Date of Service: 08/16/17 Chief Complaint: Stage IV sacral pressure ulceration; bilateral unstageable necrotic heel pressure ulcerations History of Wound: Ms. Chavez is a 67-year-old female who has been seen here about a month ago and managed as a case of bilateral stage III pressure ulcers and stage IV sacral ulcer. Due to insurance issues she has not been seen here in over a month and was seen at another wound center however she returns here today for continued care. 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 She had intraoperative surgical debridement of her sacral wound and has since had a wound VAC. Wound has shown significant progress since initial episode. She currently has a wound VAC to her sacral wound and has been applying collagen to the bilateral heels. She denies chills, fever or otherwise feeling of unwell. Progress of Wound: Stabe. No new complaints at this time. - Physical Exam Vital Signs Temp Pulse Resp BP 98.7 F 89 18 105/68 08/16/17 09:19 08/16/17 09:19 08/16/17 09:19 08/16/17 09:19 General: Alert, Oriented x3, Cooperative, No apparent distress HEENT: Atraumatic, Normocephalic Oral: Moist Mucosa Neck: Supple Lungs: Normal air movement Cardiovascular: Regular rate Abdomen: Soft Skin: Ulcer/ Wound Wound Measurements and Assessment WC - Nurse 1 - General Ulcer Measurement Start: 08/02/17 11:31 Freq: Status: Active Protocol: Activity Type Activity Date Activity User E-Sign Co-Sign Detail Recorded Client Recorded Date Recorded By Document 08/16/17 09:19 DL [id number] 08/16/17 09:29 DL 08/16/17 09:19 Wound Center Nurse 1 [Ulcer Assessment] #3 sacrum -Current Size (cm) - Length 1.8 -Current Size (cm) - Width 4.8 -Current Size (cm) - Depth 3.8 -Total Square Cm 8.64 -Photo Taken No -Exudate Amt Large (67-100%) -Exudate Type Serosanguineous -Wound Margin Distinct, Outline Attached -Granulation Amt Large (67-100%) -Granulation Quality [place] -Necrosis Amt Small (1-33%) -Necrotic Tissue Type Adherent Slough -Structure Exposed N/A -Texture (Amanda-wound Skin Appearance) Scarring -Moisture (Amanda-wound Skin Appearance Maceration ) -Color (Amanda-wound Skin Appearance) No Abnormality -Temperature (Amanda-wound Skin No Abnormality Appearance) (Pt Warm) -Ulcer Cleansing Wound Cleanser -Foul Odor after Cleansing No -Anesthetic Used 4% Lidocaine Solution WC - Nurse 2 - General Ulcer CM Notes Start: 08/02/17 11:31 Freq: Status: Active Protocol: Activity Type Activity Date Activity User E-Sign Co-Sign Detail Recorded Client Recorded Date Recorded By Document 08/16/17 09:57 DV [id number] 08/16/17 10:03 08/16/17 09:57 Wound Center Nurse 2 [Procedure/Treatment] -Time 09:59 -Correct Patient Yes -Correct Side, Site, Position Yes -Correct Procedure Yes -Procedure Performed Yes -Type of Procedure Debridement -Clinical Debridement Subcutaneous -Post Debridement Size (cm) - Length 2.0 -Post Debridement Size (cm) - Width 5.0 -Post Debridement Size (cm) - Depth 1.2 -Total Square Cm 10.00 -Wound/Ulcer Outcome Not Healed -Ulcer Cleansing Rinsed/ Irrigated with Saline -Foul Odor after Cleansing No -Bioengineered Tissue No -Bleeding Controlled with Pressure -Treatment Response Procedure Tolerated Well [See Physician Procedure note for Specifics] Pain Scale: 0-10 Numeric [Pain] -Is Patient Pain Free? Yes Musculoskeletal: No Muscle Wasting Neurological: Cranial nerves II-XII grossly intact Psych/Mental Status: Normal Affect Debridement Note Post-Debridement Measurements/Treatment - Nurse 2 - General Ulcer CM Notes Start: 08/02/17 11:31 Freq: Status: Active Protocol: Activity Type Activity Date Activity User E-Sign Co-Sign Detail Recorded Client Recorded Date Recorded By Document 08/02/17 12:21 DV [id number] 08/02/17 12:22 DV Document 08/06/17 12:06 [id number] 03/05/18 12:22 JF Document 08/16/17 09:57 DV [id number] 08/16/17 10:03 DV 08/02/17 08/06/17 08/16/17 12:21 12:06 09:57 Wound Center Nurse 2 #3 sacrum -Time 12:21 09:59 -Correct Patient Yes No Yes -Correct Side, Site, Position Yes No Yes -Correct Procedure Yes No Yes -Procedure Performed Yes No Yes -Type of Procedure Debridement Debridement -Clinical Debridement Subcutaneous Subcutaneous -Post Debridement Size (cm) - Length 2.5 2.0 -Post Debridement Size (cm) - Width 6.0 5.0 -Post Debridement Size (cm) - Depth 2.1 1.2 -Total Square Cm 15.00 10.00 -Wound/Ulcer Outcome Not Healed Not Healed Not Healed -Ulcer Cleansing Rinsed/ Rinsed/ Rinsed/ Irrigated with Irrigated with Irrigated with Saline Saline Saline -Foul Odor after Cleansing No No No -Bioengineered Tissue No No No -Bleeding Controlled with Pressure NA Pressure -Treatment Response Procedure Procedure Tolerated Well Tolerated Well #1 Right heel -Time 12:22 -Correct Patient Yes -Correct Side, Site, Position Yes -Procedure Performed No -Post Debridement Size (cm) - Length 0 -Post Debridement Size (cm) - Width 0 -Post Debridement Size (cm) - Depth 0 -Total Square Cm 0 -Wound/Ulcer Outcome Healed- Epithelialized Pain Scale: 0-10 Numeric Is Patient Pain Free? Yes Yes Yes Wound debrided: Sacral Ulcer Wound Grade/Stage: Stage IV Type of Debridement: Excisional debridement Anesthesia Used: 4% Lidocaine Solution Depth: Down to and including healthy tissue, in the subcutaneous layer Percentage of wound debrided: 100 Instrument Used: 5mm curette Tissue Removed: Biofilm and Slough Severity: Fat Layer Exposed Amount of bleeding with debridement: Mild Bleeding Controlled with: Pressure Patient tolerated procedure well Assessment/Plan Assessment: Stage IV sacral decubitus ulcer. Right heel stage III pressure ulcer. - Healed. Left heel stage III pressure ulcer - Healed. Plan: Sacral ulcer still with hypergranulation predominantly in the middle. Ulcer circumference however is reducing. She reports complaince with her wound Vac now at a pressure of 125mmHg. She denies increased pain or discharge from the site. She is also on ABx due to positive wound culture. She did follow up with Dr Hansen as recommended and plan if for surgical debridement however, she has a new diagnosis of a possible colovaginal fistula and plan is to hold up surgical debridement until that is taken care of. Debridement done as documented above. Procedure was well tolerated. Continue wound vac to sacral ulcer. Continue offloading of lower extremities ( heels ). Continue increased protein in diet and protein supplements. Follow-up in 1 week. This note was generated with [employer] dictation software. It may contain incorrect words, spelling, and punctuation that were not noted in checking the note before signing.
[2017-08-23 09:00] VITALS: BP 123/74; PULSE 86; RESP 16; TEMP 36.1; BMI 40.5
--- NOTE | 2017-08-23 09:04 | WC ---
pt visited dr chuy younger last week.
--- NOTE | 2017-08-23 09:58 | PCM.WC.PN ---
(1) Pressure ulcer of right heel, stage 3 Status: Chronic Current Visit: No Code(s): L89.613 - Pressure ulcer of right heel, stage 3 (2) Pressure ulcer of sacral region, stage 4 Status: Chronic Current Visit: Yes Code(s): L89.154 - Pressure ulcer of sacral region, stage 4 Type of Wound Date of Service: 08/23/17 Chief Complaint: Stage IV sacral pressure ulceration; bilateral unstageable necrotic heel pressure ulcerations History of Wound: Ms. Chavez is a 67-year-old female who has been seen here about a month ago and managed as a case of bilateral stage III pressure ulcers and stage IV sacral ulcer. Due to insurance issues she has not been seen here in over a month and was seen at another wound center however she returns here today for continued care. 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 She had intraoperative surgical debridement of her sacral wound and has since had a wound VAC. Wound has shown significant progress since initial episode. She currently has a wound VAC to her sacral wound and has been applying collagen to the bilateral heels. She denies chills, fever or otherwise feeling of unwell. Progress of Wound: Stable. No new complaints. - Physical Exam Vital Signs Temp Pulse Resp BP 96.9 F L 86 16 123/74 H 08/23/17 09:00 08/23/17 09:00 08/23/17 09:00 08/23/17 09:00 General: Alert, Oriented x3, Cooperative, No apparent distress HEENT: Atraumatic, Normocephalic Oral: Moist Mucosa Neck: Supple Lungs: Normal air movement Cardiovascular: Regular rate Extremities: No cyanosis Skin: Ulcer/ Wound Wound Measurements and Assessment WC - Nurse 1 - General Ulcer Measurement Start: 08/02/17 11:31 Freq: Status: Active Protocol: Activity Type Activity Date Activity User E-Sign Co-Sign Detail Recorded Client Recorded Date Recorded By Document 08/23/17 09:00 RB [id number] 08/23/17 09:07 RB 08/23/17 09:00 Wound Center Nurse 1 [Ulcer Assessment] #4 sacrum -Combined with other wound No -Current Size (cm) - Length 1.5 -Current Size (cm) - Width 2.2 -Current Size (cm) - Depth 4.8 -Total Square Cm 3.30 -Photo Taken No -Epithelialization Small 1-33% -Tunneling No -Undermining/Tunneling Yes -Undermining/Tunneling Starts (O' 3 clock) -Undermining/Tunneling Ends (O'clock) 11 -Maximum Distance (cm) 4.5 -Circular Undermining No -Classification - Pressure Ulcer Stage 4 -Exudate Amt Medium (34-66%) -Exudate Type Serosanguineous -Wound Margin Distinct, Outline Attached -Granulation Amt Large (67-100%) -Granulation Quality [place] Red -Slough/Fibrin Yes -Necrosis Amt Small (1-33%) -Necrotic Tissue Type Adherent Slough -Structure Exposed N/A -Texture (Amanda-wound Skin Appearance) Assessed -Moisture ([place]nada-wound Skin Appearance Assessed ) -Color (Amanda-wound Skin Appearance) Assessed -Temperature (Amanda-wound Skin No Abnormality Appearance) (Pt Warm) -Tenderness on Palpation (Amanda-wound No Skin Appearance) -Ulcer Cleansing Rinsed/ Irrigated with Saline -Foul Odor after Cleansing No -Anesthetic Used 4% Lidocaine Solution 08/23/17 09:04 Wound Center by Miriam Rawls pt visited dr chuy younger last week. Initialized on 08/23/17 09:04 - END OF NOTE WC - Nurse 2 - General Ulcer CM Notes Start: 08/02/17 11:31 Freq: Status: Active Protocol: Activity Type Activity Date Activity User E-Sign Co-Sign Detail Recorded Client Recorded Date Recorded By Document 08/23/17 09:21 DV [id number] 08/23/17 09:28 DV 08/23/17 09:21 Wound Center Nurse 2 [Procedure/Treatment] -Time 09:21 -Correct Patient Yes -Correct Side, Site, Position Yes -Correct Procedure Yes -Procedure Performed Yes -Type of Procedure Debridement -Clinical Debridement Subcutaneous -Post Debridement Size (cm) - Length 2.0 -Post Debridement Size (cm) - Width 5.0 -Post Debridement Size (cm) - Depth 2.7 -Total Square Cm 10.00 -Wound/Ulcer Outcome Not Healed -Ulcer Cleansing Rinsed/ Irrigated with Saline -Foul Odor after Cleansing No -Bioengineered Tissue No -Bleeding Controlled with NA -Treatment Response Procedure Tolerated Well [See Physician Procedure note for Specifics] Pain Scale: 0-10 Numeric [Pain] -Is Patient Pain Free? Yes Musculoskeletal: No Muscle Wasting Neurological: Cranial nerves II-XII grossly intact Psych/Mental Status: Normal Affect Debridement Note Post-Debridement Measurements/Treatment WC - Nurse 2 - General Ulcer CM Notes Start: 08/02/17 11:31 Freq: Status: Active Protocol: Activity Type Activity Date Activity User E-Sign Co-Sign Detail Recorded Client Recorded Date Recorded By Document 08/02/17 12:21 DV [id number] 08/02/17 12:22 DV Document 08/06/17 12:06 [id number] 08/06/17 12:22 JF Document 08/16/17 09:57 DV [id number] 08/16/17 10:03 DV Document 08/23/17 09:21 DV [id number] 08/23/17 09:28 DV 08/02/17 08/06/17 08/16/17 12:21 12:06 09:57 Wound Center Nurse 2 #4 sacrum -Time 12:21 09:59 -Correct Patient Yes No Yes -Correct Side, Site, Position Yes No Yes -Correct Procedure Yes No Yes -Procedure Performed Yes No Yes -Type of Procedure Debridement Debridement -Clinical Debridement Subcutaneous Subcutaneous -Post Debridement Size (cm) - Length 2.5 2.0 -Post Debridement Size (cm) - Width 6.0 5.0 -Post Debridement Size (cm) - Depth 2.1 1.2 -Total Square Cm 15.00 10.00 -Wound/Ulcer Outcome Not Healed Not Healed Not Healed -Ulcer Cleansing Rinsed/ Rinsed/ Rinsed/ Irrigated with Irrigated with Irrigated with Saline Saline Saline -Foul Odor after Cleansing No No No -Bioengineered Tissue No No No -Bleeding Controlled with Pressure NA Pressure -Treatment Response Procedure Procedure Tolerated Well Tolerated Well #1 Right heel -Time 12:22 -Correct Patient Yes -Correct Side, Site, Position Yes -Procedure Performed No -Post Debridement Size (cm) - Length 0 -Post Debridement Size (cm) - Width 0 -Post Debridement Size (cm) - Depth 0 -Total Square Cm 0 -Wound/Ulcer Outcome Healed- Epithelialized Pain Scale: 0-10 Numeric Is Patient Pain Free? Yes Yes Yes 08/23/17 09:21 Wound Center Nurse 2 #4 sacrum -Time 09:21 -Correct Patient Yes -Correct Side, Site, Position Yes -Correct Procedure Yes -Procedure Performed Yes -Type of Procedure Debridement -Clinical Debridement Subcutaneous -Post Debridement Size (cm) - Length 2.0 -Post Debridement Size (cm) - Width 5.0 -Post Debridement Size (cm) - Depth 2.7 -Total Square Cm 10.00 -Wound/Ulcer Outcome Not Healed -Ulcer Cleansing Rinsed/ Irrigated with Saline -Foul Odor after Cleansing No -Bioengineered Tissue No -Bleeding Controlled with NA -Treatment Response Procedure Tolerated Well #1 Right heel -Time -Correct Patient -Correct Side, Site, Position -Procedure Performed -Post Debridement Size (cm) - Length -Post Debridement Size (cm) - Width -Post Debridement Size (cm) - Depth -Total Square Cm -Wound/Ulcer Outcome Pain Scale: 0-10 Numeric Is Patient Pain Free? Yes Wound debrided: Sacral Ulcer Wound Grade/Stage: Stage IV Type of Debridement: Excisional debridement Anesthesia Used: 4% Lidocaine Solution Depth: Down to and including healthy tissue, in the subcutaneous layer Percentage of wound debrided: 100 Instrument Used: 5mm curette Tissue Removed: Slough and Devitalized tisue Severity: Fat Layer Exposed Amount of bleeding with debridement: Mild Bleeding Controlled with: Pressure Patient tolerated procedure well Assessment/Plan Active Problems (Last Updated 08/09/17 @ 08:06 by Liz Baker) Pressure ulcer of sacral region, stage 4 (Chronic) Assessment: Stage IV sacral decubitus ulcer. Right heel stage III pressure ulcer. - Healed. Left heel stage III pressure ulcer - Healed. Plan: Sacral ulcer still with hypergranulation predominantly in the middle. She reports complaince with her wound Vac now at a pressure of 125mmHg. She denies increased pain or discharge from the site. She has completed her course of ABX. She did follow up with Dr Hansen as recommended and plan is for surgical debridement however, she has a new diagnosis of a colovaginal fistula and plan is to hold up deberidement until the fistula is taken care of. She was reffered to [facility] by her General surgeon for the colovaginal fistula. Debridement done as documented above. Procedure was well tolerated. Will give a wound vac holiday for now due to persisting hypergranulation and reducing circumference. Pack wound daily with Aquacel. Guaze and ABD over top. Continue offloading of lower extremities ( heels ). Continue increased protein in diet and protein supplements. Follow-up in 1 week. This note was generated with [employer] software. It may contain incorrect words, spelling, and punctuation that were not noted in checking the note before signing.
--- NOTE | 2017-08-23 10:05 | PN.PCM_ITS ---
(1) Pressure ulcer of right heel, stage 3 Status: Chronic Current Visit: No Code(s): L89.613 - Pressure ulcer of right heel, stage 3 (2) Pressure ulcer of sacral region, stage 4 Status: Chronic Current Visit: Yes Code(s): L89.154 - Pressure ulcer of sacral region, stage 4 Type of Wound Date of Service: 08/23/17 Chief Complaint: Stage IV sacral pressure ulceration; bilateral unstageable necrotic heel pressure ulcerations History of Wound: Ms. Chavez is a 67-year-old female who has been seen here about a month ago and managed as a case of bilateral stage III pressure ulcers and stage IV sacral ulcer. Due to insurance issues she has not been seen here in over a month and was seen at another wound center however she returns here today for continued care. 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 She had intraoperative surgical debridement of her sacral wound and has since had a wound VAC. Wound has shown significant progress since initial episode. She currently has a wound VAC to her sacral wound and has been applying collagen to the bilateral heels. She denies chills, fever or otherwise feeling of unwell. Progress of Wound: Stable. No new complaints. - Physical Exam Vital Signs Temp Pulse Resp BP 96.9 F L 86 16 123/74 H 08/23/17 09:00 08/23/17 09:00 08/23/17 09:00 08/23/17 09:00 General: Alert, Oriented x3, Cooperative, No apparent distress HEENT: Atraumatic, Normocephalic Oral: Moist Mucosa Neck: Supple Lungs: Normal air movement Cardiovascular: Regular rate Extremities: No cyanosis Skin: Ulcer/ Wound Wound Measurements and Assessment WC - Nurse 1 - General Ulcer Measurement Start: 08/02/17 11:31 Freq: Status: Active Protocol: Activity Type Activity Date Activity User E-Sign Co-Sign Detail Recorded Client Recorded Date Recorded By Document 08/23/17 09:00 RB [id number] 08/23/17 09:07 RB 08/23/17 09:00 Wound Center Nurse 1 [Ulcer Assessment] #4 sacrum -Combined with other wound No -Current Size (cm) - Length 1.5 -Current Size (cm) - Width 2.2 -Current Size (cm) - Depth 4.8 -Total Square Cm 3.30 -Photo Taken No -Epithelialization Small 1-33% -Tunneling No -Undermining/Tunneling Yes -Undermining/Tunneling Starts (O' 3 clock) -Undermining/Tunneling Ends (O'clock) 11 -Maximum Distance (cm) 4.5 -Circular Undermining No -Classification - Pressure Ulcer Stage 4 -Exudate Amt Medium (34-66%) -Exudate Type Serosanguineous -Wound Margin Distinct, Outline Attached -Granulation Amt Large (67-100%) -Granulation Quality Casar Red -Slough/Fibrin Yes -Necrosis Amt Small (1-33%) -Necrotic Tissue Type Adherent Slough -Structure Exposed N/A -Texture (Amanda-wound Skin Appearance) Assessed -Moisture (Amanda-wound Skin Appearance Assessed ) -Color (Amanda-wound Skin Appearance) Assessed -Temperature (Amanda-wound Skin No Abnormality Appearance) (Pt Warm) -Tenderness on Palpation (Amanda-wound No Skin Appearance) -Ulcer Cleansing Rinsed/ Irrigated with Saline -Foul Odor after Cleansing No -Anesthetic Used 4% Lidocaine Solution 08/23/17 09:04 Wound Center by Miriam Rawls pt visited dr chuy younger last week. Initialized on 08/23/17 09:04 - END OF NOTE WC - Nurse 2 - General Ulcer CM Notes Start: 08/02/17 11:31 Freq: Status: Active Protocol: Activity Type Activity Date Activity User E-Sign Co-Sign Detail Recorded Client Recorded Date Recorded By Document 08/23/17 09:21 DV [id number] 08/23/17 09:28 DV 08/23/17 09:21 Wound Center Nurse 2 [Procedure/Treatment] -Time 09:21 -Correct Patient Yes -Correct Side, Site, Position Yes -Correct Procedure Yes -Procedure Performed Yes -Type of Procedure Debridement -Clinical Debridement Subcutaneous -Post Debridement Size (cm) - Length 2.0 -Post Debridement Size (cm) - Width 5.0 -Post Debridement Size (cm) - Depth 2.7 -Total Square Cm 10.00 -Wound/Ulcer Outcome Not Healed -Ulcer Cleansing Rinsed/ Irrigated with Saline -Foul Odor after Cleansing No -Bioengineered Tissue No -Bleeding Controlled with NA -Treatment Response Procedure Tolerated Well [See Physician Procedure note for Specifics] Pain Scale: 0-10 Numeric [Pain] -Is Patient Pain Free? Yes Musculoskeletal: No Muscle Wasting Neurological: Cranial nerves II-XII grossly intact Psych/Mental Status: Normal Affect Debridement Note Post-Debridement Measurements/Treatment WC - Nurse 2 - General Ulcer CM Notes Start: 08/02/17 11:31 Freq: Status: Active Protocol: Activity Type Activity Date Activity User E-Sign Co-Sign Detail Recorded Client Recorded Date Recorded By Document 08/02/17 12:21 DV [id number] 08/02/17 12:22 DV Document 08/06/17 12:06 [id number] 08/06/17 12:22 JF Document 08/16/17 09:57 DV [id number] 08/16/17 10:03 DV Document 08/23/17 09:21 DV [id number] 08/23/17 09:28 DV 08/02/17 08/06/17 08/16/17 12:21 12:06 09:57 Wound Center Nurse 2 #4 sacrum -Time 12:21 09:59 -Correct Patient Yes No Yes -Correct Side, Site, Position Yes No Yes -Correct Procedure Yes No Yes -Procedure Performed Yes No Yes -Type of Procedure Debridement Debridement -Clinical Debridement Subcutaneous Subcutaneous -Post Debridement Size (cm) - Length 2.5 2.0 -Post Debridement Size (cm) - Width 6.0 5.0 -Post Debridement Size (cm) - Depth 2.1 1.2 -Total Square Cm 15.00 10.00 -Wound/Ulcer Outcome Not Healed Not Healed Not Healed -Ulcer Cleansing Rinsed/ Rinsed/ Rinsed/ Irrigated with Irrigated with Irrigated with Saline Saline Saline -Foul Odor after Cleansing No No No -Bioengineered Tissue No No No -Bleeding Controlled with Pressure NA Pressure -Treatment Response Procedure Procedure Tolerated Well Tolerated Well #1 Right heel -Time 12:22 -Correct Patient Yes -Correct Side, Site, Position Yes -Procedure Performed No -Post Debridement Size (cm) - Length 0 -Post Debridement Size (cm) - Width 0 -Post Debridement Size (cm) - Depth 0 -Total Square Cm 0 -Wound/Ulcer Outcome Healed- Epithelialized Pain Scale: 0-10 Numeric Is Patient Pain Free? Yes Yes Yes 08/23/17 09:21 Wound Center Nurse 2 #4 sacrum -Time 09:21 -Correct Patient Yes -Correct Side, Site, Position Yes -Correct Procedure Yes -Procedure Performed Yes -Type of Procedure Debridement -Clinical Debridement Subcutaneous -Post Debridement Size (cm) - Length 2.0 -Post Debridement Size (cm) - Width 5.0 -Post Debridement Size (cm) - Depth 2.7 -Total Square Cm 10.00 -Wound/Ulcer Outcome Not Healed -Ulcer Cleansing Rinsed/ Irrigated with Saline -Foul Odor after Cleansing No -Bioengineered Tissue No -Bleeding Controlled with NA -Treatment Response Procedure Tolerated Well #1 Right heel -Time -Correct Patient -Correct Side, Site, Position -Procedure Performed -Post Debridement Size (cm) - Length -Post Debridement Size (cm) - Width -Post Debridement Size (cm) - Depth -Total Square Cm -Wound/Ulcer Outcome Pain Scale: 0-10 Numeric Is Patient Pain Free? Yes Wound debrided: Sacral Ulcer Wound Grade/Stage: Stage IV Type of Debridement: Excisional debridement Anesthesia Used: 4% Lidocaine Solution Depth: Down to and including healthy tissue, in the subcutaneous layer Percentage of wound debrided: 100 Instrument Used: 5mm curette Tissue Removed: Slough and Devitalized tisue Severity: Fat Layer Exposed Amount of bleeding with debridement: Mild Bleeding Controlled with: Pressure Patient tolerated procedure well Assessment/Plan Active Problems (Last Updated 08/09/17 @ 08:06 by Liz Baker) Pressure ulcer of sacral region, stage 4 (Chronic) Assessment: Stage IV sacral decubitus ulcer. Right heel stage III pressure ulcer. - Healed. Left heel stage III pressure ulcer - Healed. Plan: Sacral ulcer still with hypergranulation predominantly in the middle. She reports complaince with her wound Vac now at a pressure of 125mmHg. She denies increased pain or discharge from the site. She has completed her course of ABX. She did follow up with Dr Hansen as recommended and plan is for surgical debridement however, she has a new diagnosis of a colovaginal fistula and plan is to hold up deberidement until the fistula is taken care of. She was reffered to [facility] by her General surgeon for the colovaginal fistula. Debridement done as documented above. Procedure was well tolerated. Will give a wound vac holiday for now due to persisting hypergranulation and reducing circumference. Pack wound daily with Aquacel. Guaze and ABD over top. Continue offloading of lower extremities ( heels ). Continue increased protein in diet and protein supplements. Follow-up in 1 week. This note was generated with [employer] software. It may contain incorrect words, spelling, and punctuation that were not noted in checking the note before signing.
[2017-08-29 10:52] VITALS: BP 147/86; PULSE 89; RESP 16; TEMP 36.9; BMI 40.5
--- NOTE | 2017-08-29 17:30 | PCM.WC.PN ---
(1) Pressure ulcer of right heel, stage 3 Status: Chronic Current Visit: No Code(s): L89.613 - Pressure ulcer of right heel, stage 3 (2) Pressure ulcer of sacral region, stage 4 Status: Chronic Current Visit: Yes Code(s): L89.154 - Pressure ulcer of sacral region, stage 4 Type of Wound Date of Service: 08/29/17 Chief Complaint: Stage IV sacral pressure ulceration; bilateral unstageable necrotic heel pressure ulcerations History of Wound: Ms. Chavez is a 67-year-old female who has been seen here about a month ago and managed as a case of bilateral stage III pressure ulcers and stage IV sacral ulcer. Due to insurance issues she has not been seen here in over a month and was seen at another wound center however she returns here today for continued care. 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 She had intraoperative surgical debridement of her sacral wound and has since had a wound VAC. Wound has shown significant progress since initial episode. She currently has a wound VAC to her sacral wound and has been applying collagen to the bilateral heels. She denies chills, fever or otherwise feeling of unwell. Progress of Wound: Stable. No new complaints. - Physical Exam Vital Signs Temp Pulse Resp BP 98.4 F 89 16 147/86 H 08/29/17 10:52 08/29/17 10:52 08/29/17 10:52 08/29/17 10:52 General: Alert, Oriented x3, Cooperative, No apparent distress HEENT: Atraumatic, Normocephalic Oral: Moist Mucosa Neck: Supple Lungs: Normal air movement Cardiovascular: Regular rate Extremities: No cyanosis Skin: Ulcer/ Wound Wound Measurements and Assessment WC - Nurse 1 - General Ulcer Measurement Start: 08/02/17 11:31 Freq: Status: Active Protocol: Activity Type Activity Date Activity User E-Sign Co-Sign Detail Recorded Client Recorded Date Recorded By Document 08/29/17 10:52 MW [id number] 08/29/17 10:59 MW 08/29/17 10:52 Wound Center Nurse 1 [Ulcer Assessment] #4 sacrum -Combined with other wound No -Current Size (cm) - Length 1.8 -Current Size (cm) - Width 5.5 -Current Size (cm) - Depth 2.8 -Total Square Cm 9.90 -Photo Taken No -Epithelialization Medium 34-66% -Tunneling No -Undermining/Tunneling No -Circular Undermining No -Exudate Amt Medium (34-66%) -Exudate Type Serosanguineous -Wound Margin Distinct, Outline Attached -Granulation Amt Large (67-100%) -Granulation Quality Red -Slough/Fibrin Yes -Necrosis Amt Small (1-33%) -Necrotic Tissue Type Adherent Slough -Structure Exposed N/A -Texture (Amanda-wound Skin Appearance) Assessed Scarring -Moisture (Amanda-wound Skin Appearance No Abnormality ) Assessed -Color (Amanda-wound Skin Appearance) No Abnormality Assessed -Temperature (Amanda-wound Skin No Abnormality Appearance) (Pt Warm) -Tenderness on Palpation (Amanda-wound No Skin Appearance) -Ulcer Cleansing Rinsed/ Irrigated with Saline -Foul Odor after Cleansing No -Anesthetic Used 4% Lidocaine Solution [Edema Assessment] -Lower Limb Edema Present No WC - Nurse 2 - General Ulcer CM Notes Start: 08/02/17 11:31 Freq: Status: Active Protocol: Activity Type Activity Date Activity User E-Sign Co-Sign Detail Recorded Client Recorded Date Recorded By Document 08/29/17 11:20 DV [id number] 08/29/17 11:25 DV 08/29/17 11:20 Wound Center Nurse 2 [Procedure/Treatment] #4 sacrum -Time 11:22 -Correct Patient Yes -Correct Side, Site, Position Yes -Correct Procedure Yes -Procedure Performed Yes -Type of Procedure Debridement -Clinical Debridement Subcutaneous -Post Debridement Size (cm) - Length 2.0 -Post Debridement Size (cm) - Width 5.0 -Post Debridement Size (cm) - Depth 2.2 -Total Square Cm 10.00 -Wound/Ulcer Outcome Not Healed -Ulcer Cleansing Rinsed/ Irrigated with Saline -Foul Odor after Cleansing No -Bioengineered Tissue No -Bleeding Controlled with Pressure -Treatment Response Procedure Tolerated Well [See Physician Procedure note for Specifics] Pain Scale: 0-10 Numeric [Pain] -Is Patient Pain Free? Yes Musculoskeletal: No Muscle Wasting Neurological: Cranial nerves II-XII grossly intact Psych/Mental Status: Normal Affect Debridement Note Post-Debridement Measurements/Treatment WC - Nurse 2 - General Ulcer CM Notes Start: 08/02/17 11:31 Freq: Status: Active Protocol: Activity Type Activity Date Activity User E-Sign Co-Sign Detail Recorded Client Recorded Date Recorded By Document 08/02/17 12:21 DV [id number] 08/02/17 12:22 DV Document 08/06/17 12:06 JF [id number] 08/06/17 12:22 JF Document 08/16/17 09:57 DV [id number] 08/16/17 10:03 DV Document 08/23/17 09:21 DV [id number] 08/23/17 09:28 DV Document 08/29/17 11:20 DV [id number] 08/29/17 11:25 DV 08/02/17 08/06/17 08/16/17 12:21 12:06 09:57 Wound Center Nurse 2 #4 sacrum -Time 12:21 09:59 -Correct Patient Yes No Yes -Correct Side, Site, Position Yes No Yes -Correct Procedure Yes No Yes -Procedure Performed Yes No Yes -Type of Procedure Debridement Debridement -Clinical Debridement Subcutaneous Subcutaneous -Post Debridement Size (cm) - Length 2.5 2.0 -Post Debridement Size (cm) - Width 6.0 5.0 -Post Debridement Size (cm) - Depth 2.1 1.2 -Total Square Cm 15.00 10.00 -Wound/Ulcer Outcome Not Healed Not Healed Not Healed -Ulcer Cleansing Rinsed/ Rinsed/ Rinsed/ Irrigated with Irrigated with Irrigated with Saline Saline Saline -Foul Odor after Cleansing No No No -Bioengineered Tissue No No No -Bleeding Controlled with Pressure NA Pressure -Treatment Response Procedure Procedure Tolerated Well Tolerated Well #1 Right heel -Time 12:22 -Correct Patient Yes -Correct Side, Site, Position Yes -Procedure Performed No -Post Debridement Size (cm) - Length 0 -Post Debridement Size (cm) - Width 0 -Post Debridement Size (cm) - Depth 0 -Total Square Cm 0 -Wound/Ulcer Outcome Healed- Epithelialized Pain Scale: 0-10 Numeric Is Patient Pain Free? Yes Yes Yes 08/23/17 08/29/17 09:21 11:20 Wound Center Nurse 2 #4 sacrum -Time 09:21 11:22 -Correct Patient Yes Yes -Correct Side, Site, Position Yes Yes -Correct Procedure Yes Yes -Procedure Performed Yes Yes -Type of Procedure Debridement Debridement -Clinical Debridement Subcutaneous Subcutaneous -Post Debridement Size (cm) - Length 2.0 2.0 -Post Debridement Size (cm) - Width 5.0 5.0 -Post Debridement Size (cm) - Depth 2.7 2.2 -Total Square Cm 10.00 10.00 -Wound/Ulcer Outcome Not Healed Not Healed -Ulcer Cleansing Rinsed/ Rinsed/ Irrigated with Irrigated with Saline Saline -Foul Odor after Cleansing No No -Bioengineered Tissue No No -Bleeding Controlled with NA Pressure -Treatment Response Procedure Procedure Tolerated Well Tolerated Well #1 Right heel -Time -Correct Patient -Correct Side, Site, Position -Procedure Performed -Post Debridement Size (cm) - Length -Post Debridement Size (cm) - Width -Post Debridement Size (cm) - Depth -Total Square Cm -Wound/Ulcer Outcome Pain Scale: 0-10 Numeric Is Patient Pain Free? Yes Yes Wound debrided: Sacral Ulcer Wound Grade/Stage: Stage IV Type of Debridement: Excisional debridement Anesthesia Used: 4% Lidocaine Solution Depth: Down to and including healthy tissue, in the subcutaneous layer Percentage of wound debrided: 100 Instrument Used: 7mm curette Tissue Removed: Slough,Biofilm and Devitalized tissue Severity: Fat Layer Exposed Amount of bleeding with debridement: Mild Bleeding Controlled with: Pressure Patient tolerated procedure well Assessment/Plan Active Problems (Last Updated 08/09/17 @ 08:06 by Liz Baker) Pressure ulcer of sacral region, stage 4 (Chronic) Assessment: Stage IV sacral decubitus ulcer. Right heel stage III pressure ulcer. - Healed. Left heel stage III pressure ulcer - Healed. Plan: Stable ulcer over the past week. Has had a wound VAC holiday for a week. Hyper granulation tissue appears to have subsided a little. Scheduled to follow-up with her surgeon for her colovaginal fistula on 23 October at [facility]. It may be a good idea to have her surgical debridement of the sacral ulcer prior to this. Will discuss with Dr. Hansen. Debridement done as documented above. Procedure was well tolerated. Continue VAC holiday for 1 more week. Continue to pack wound daily with Aquacel, Guaze and ABD over top. Continue offloading of lower extremities ( heels ). Continue increased protein in diet and protein supplements. Follow-up in 1 week. This note was generated with [employer] software. It may contain incorrect words, spelling, and punctuation that were not noted in checking the note before signing.
--- NOTE | 2017-08-29 17:35 | PN.PCM_ITS ---
(1) Pressure ulcer of right heel, stage 3 Status: Chronic Current Visit: No Code(s): L89.613 - Pressure ulcer of right heel, stage 3 (2) Pressure ulcer of sacral region, stage 4 Status: Chronic Current Visit: Yes Code(s): L89.154 - Pressure ulcer of sacral region, stage 4 Type of Wound Date of Service: 08/29/17 Chief Complaint: Stage IV sacral pressure ulceration; bilateral unstageable necrotic heel pressure ulcerations History of Wound: Ms. Chavez is a 67-year-old female who has been seen here about a month ago and managed as a case of bilateral stage III pressure ulcers and stage IV sacral ulcer. Due to insurance issues she has not been seen here in over a month and was seen at another wound center however she returns here today for continued care. 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 She had intraoperative surgical debridement of her sacral wound and has since had a wound VAC. Wound has shown significant progress since initial episode. She currently has a wound VAC to her sacral wound and has been applying collagen to the bilateral heels. She denies chills, fever or otherwise feeling of unwell. Progress of Wound: Stable. No new complaints. - Physical Exam Vital Signs Temp Pulse Resp BP 98.4 F 89 16 147/86 H 08/29/17 10:52 08/29/17 10:52 08/29/17 10:52 08/29/17 10:52 General: Alert, Oriented x3, Cooperative, No apparent distress HEENT: Atraumatic, Normocephalic Oral: Moist Mucosa Neck: Supple Lungs: Normal air movement Cardiovascular: Regular rate Extremities: No cyanosis Skin: Ulcer/ Wound Wound Measurements and Assessment WC - Nurse 1 - General Ulcer Measurement Start: 08/02/17 11:31 Freq: Status: Active Protocol: Activity Type Activity Date Activity User E-Sign Co-Sign Detail Recorded Client Recorded Date Recorded By Document 08/29/17 10:52 MW [id number] 08/29/17 10:59 MW 08/29/17 10:52 Wound Center Nurse 1 [Ulcer Assessment] #4 sacrum -Combined with other wound No -Current Size (cm) - Length 1.8 -Current Size (cm) - Width 5.5 -Current Size (cm) - Depth 2.8 -Total Square Cm 9.90 -Photo Taken No -Epithelialization Medium 34-66% -Tunneling No -Undermining/Tunneling No -Circular Undermining No -Exudate Amt Medium (34-66%) -Exudate Type Serosanguineous -Wound Margin Distinct, Outline Attached -Granulation Amt Large (67-100%) -Granulation Quality Red -Slough/Fibrin Yes -Necrosis Amt Small (1-33%) -Necrotic Tissue Type Adherent Slough -Structure Exposed N/A -Texture (Amanda-wound Skin Appearance) Assessed Scarring -Moisture (Amanda-wound Skin Appearance No Abnormality ) Assessed -Color (Amanda-wound Skin Appearance) No Abnormality Assessed -Temperature (Amanda-wound Skin No Abnormality Appearance) (Pt Warm) -Tenderness on Palpation (Amanda-wound No Skin Appearance) -Ulcer Cleansing Rinsed/ Irrigated with Saline -Foul Odor after Cleansing No -Anesthetic Used 4% Lidocaine Solution [Edema Assessment] -Lower Limb Edema Present No WC - Nurse 2 - General Ulcer CM Notes Start: 08/02/17 11:31 Freq: Status: Active Protocol: Activity Type Activity Date Activity User E-Sign Co-Sign Detail Recorded Client Recorded Date Recorded By Document 08/29/17 11:20 DV [id number] 08/29/17 11:25 DV 08/29/17 11:20 Wound Center Nurse 2 [Procedure/Treatment] #4 sacrum -Time 11:22 -Correct Patient Yes -Correct Side, Site, Position Yes -Correct Procedure Yes -Procedure Performed Yes -Type of Procedure Debridement -Clinical Debridement Subcutaneous -Post Debridement Size (cm) - Length 2.0 -Post Debridement Size (cm) - Width 5.0 -Post Debridement Size (cm) - Depth 2.2 -Total Square Cm 10.00 -Wound/Ulcer Outcome Not Healed -Ulcer Cleansing Rinsed/ Irrigated with Saline -Foul Odor after Cleansing No -Bioengineered Tissue No -Bleeding Controlled with Pressure -Treatment Response Procedure Tolerated Well [See Physician Procedure note for Specifics] Pain Scale: 0-10 Numeric [Pain] -Is Patient Pain Free? Yes Musculoskeletal: No Muscle Wasting Neurological: Cranial nerves II-XII grossly intact Psych/Mental Status: Normal Affect Debridement Note Post-Debridement Measurements/Treatment WC - Nurse 2 - General Ulcer CM Notes Start: 08/02/17 11:31 Freq: Status: Active Protocol: Activity Type Activity Date Activity User E-Sign Co-Sign Detail Recorded Client Recorded Date Recorded By Document 08/02/17 12:21 DV [id number] 08/02/17 12:22 DV Document 08/06/17 12:06 JF [id number] 08/06/17 12:22 JF Document 08/16/17 09:57 DV [id number] 08/16/17 10:03 DV Document 08/23/17 09:21 DV [id number] 08/23/17 09:28 DV Document 08/29/17 11:20 DV [id number] 08/29/17 11:25 DV 08/02/17 08/06/17 08/16/17 12:21 12:06 09:57 Wound Center Nurse 2 #4 sacrum -Time 12:21 09:59 -Correct Patient Yes No Yes -Correct Side, Site, Position Yes No Yes -Correct Procedure Yes No Yes -Procedure Performed Yes No Yes -Type of Procedure Debridement Debridement -Clinical Debridement Subcutaneous Subcutaneous -Post Debridement Size (cm) - Length 2.5 2.0 -Post Debridement Size (cm) - Width 6.0 5.0 -Post Debridement Size (cm) - Depth 2.1 1.2 -Total Square Cm 15.00 10.00 -Wound/Ulcer Outcome Not Healed Not Healed Not Healed -Ulcer Cleansing Rinsed/ Rinsed/ Rinsed/ Irrigated with Irrigated with Irrigated with Saline Saline Saline -Foul Odor after Cleansing No No No -Bioengineered Tissue No No No -Bleeding Controlled with Pressure NA Pressure -Treatment Response Procedure Procedure Tolerated Well Tolerated Well #1 Right heel -Time 12:22 -Correct Patient Yes -Correct Side, Site, Position Yes -Procedure Performed No -Post Debridement Size (cm) - Length 0 -Post Debridement Size (cm) - Width 0 -Post Debridement Size (cm) - Depth 0 -Total Square Cm 0 -Wound/Ulcer Outcome Healed- Epithelialized Pain Scale: 0-10 Numeric Is Patient Pain Free? Yes Yes Yes 08/23/17 08/29/17 09:21 11:20 Wound Center Nurse 2 #4 sacrum -Time 09:21 11:22 -Correct Patient Yes Yes -Correct Side, Site, Position Yes Yes -Correct Procedure Yes Yes -Procedure Performed Yes Yes -Type of Procedure Debridement Debridement -Clinical Debridement Subcutaneous Subcutaneous -Post Debridement Size (cm) - Length 2.0 2.0 -Post Debridement Size (cm) - Width 5.0 5.0 -Post Debridement Size (cm) - Depth 2.7 2.2 -Total Square Cm 10.00 10.00 -Wound/Ulcer Outcome Not Healed Not Healed -Ulcer Cleansing Rinsed/ Rinsed/ Irrigated with Irrigated with Saline Saline -Foul Odor after Cleansing No No -Bioengineered Tissue No No -Bleeding Controlled with NA Pressure -Treatment Response Procedure Procedure Tolerated Well Tolerated Well #1 Right heel -Time -Correct Patient -Correct Side, Site, Position -Procedure Performed -Post Debridement Size (cm) - Length -Post Debridement Size (cm) - Width -Post Debridement Size (cm) - Depth -Total Square Cm -Wound/Ulcer Outcome Pain Scale: 0-10 Numeric Is Patient Pain Free? Yes Yes Wound debrided: Sacral Ulcer Wound Grade/Stage: Stage IV Type of Debridement: Excisional debridement Anesthesia Used: 4% Lidocaine Solution Depth: Down to and including healthy tissue, in the subcutaneous layer Percentage of wound debrided: 100 Instrument Used: 7mm curette Tissue Removed: Slough,Biofilm and Devitalized tissue Severity: Fat Layer Exposed Amount of bleeding with debridement: Mild Bleeding Controlled with: Pressure Patient tolerated procedure well Assessment/Plan Active Problems (Last Updated 08/09/17 @ 08:06 by Liz Baker) Pressure ulcer of sacral region, stage 4 (Chronic) Assessment: Stage IV sacral decubitus ulcer. Right heel stage III pressure ulcer. - Healed. Left heel stage III pressure ulcer - Healed. Plan: Stable ulcer over the past week. Has had a wound VAC holiday for a week. Hyper granulation tissue appears to have subsided a little. Scheduled to follow-up with her surgeon for her colovaginal fistula on 23 October at [facility]. It may be a good idea to have her surgical debridement of the sacral ulcer prior to this. Will discuss with Dr. Hansen. Debridement done as documented above. Procedure was well tolerated. Continue VAC holiday for 1 more week. Continue to pack wound daily with Aquacel, Guaze and ABD over top. Continue offloading of lower extremities ( heels ). Continue increased protein in diet and protein supplements. Follow-up in 1 week. This note was generated with [employer] software. It may contain incorrect words, spelling, and punctuation that were not noted in checking the note before signing.
== END 2017-09-01 23:59 ==
LOC: WC 10:45
PROVIDERS: Family Provider Family Medicine Geriatric Medicine; PCP Family Medicine Geriatric Medicine; Visit Provider Internal Medicine
DX: L89.154 Pressure ulcer of sacral region, stage 4 (principal); L89.613 Pressure ulcer of right heel, stage 3
CPT/HCPCS: 11042; 87070; 87075; 87077; 87186; 87205; 97605; 99213; G0463

== ENCOUNTER 2017-09-27 09:00 | Outpatient (RCR) | payer MEDICARE, OTHER, SELFPAY ==
[2017-09-02 00:36] VITALS: BP 114/85; PULSE 89; RESP 16; TEMP 36.9; BMI 40.5
[2017-09-06 11:04] VITALS: BP 154/89; PULSE 80; RESP 16; TEMP 36.6; BMI 40.5
--- NOTE | 2017-09-06 22:49 | PCM.WC.PN ---
(1) Pressure ulcer of sacral region, stage 4 Status: Chronic Current Visit: Yes Code(s): L89.154 - Pressure ulcer of sacral region, stage 4 (2) Pressure ulcer of left heel, stage 3 Status: Chronic Current Visit: No Code(s): L89.623 - Pressure ulcer of left heel, stage 3 (3) Pressure ulcer of right heel, stage 3 Status: Chronic Current Visit: No Code(s): L89.613 - Pressure ulcer of right heel, stage 3 Type of Wound Date of Service: 09/06/17 Chief Complaint: Stage IV sacral pressure ulceration; bilateral unstageable necrotic heel pressure ulcerations History of Wound: Ms. Chavez is a 67-year-old female who has been seen here about a month ago and managed as a case of bilateral stage III pressure ulcers and stage IV sacral ulcer. Due to insurance issues she has not been seen here in over a month and was seen at another wound center however she returns here today for continued care. 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 She had intraoperative surgical debridement of her sacral wound and has since had a wound VAC. Wound has shown significant progress since initial episode. She currently has a wound VAC to her sacral wound and has been applying collagen to the bilateral heels. She denies chills, fever or otherwise feeling of unwell. Progress of Wound: Stable. No new complaints. - Physical Exam Vital Signs Temp Pulse Resp BP 98 F 80 16 154/89 H 09/06/17 11:04 09/06/17 11:04 09/06/17 11:04 09/06/17 11:04 General: Alert, Oriented x3, Cooperative, No apparent distress HEENT: Atraumatic, Normocephalic Oral: Moist Mucosa Neck: Supple Lungs: Normal air movement Cardiovascular: Regular rate Abdomen: Soft Skin: Ulcer/ Wound Wound Measurements and Assessment WC - Nurse 1 - General Ulcer Measurement Start: 09/06/17 10:13 Freq: Status: Active Protocol: Activity Type Activity Date Activity User E-Sign Co-Sign Detail Recorded Client Recorded Date Recorded By Document 09/06/17 11:04 [facility] [id number] 09/06/17 11:16 [facility] 09/06/17 11:04 Wound Center Nurse 1 [Ulcer Assessment] #4 sacrum -Combined with other wound No -Current Size (cm) - Length 1.8 -Current Size (cm) - Width 5.3 -Current Size (cm) - Depth 2.2 -Total Square Cm 9.54 -Date of Last Picture (Recall this 09/06/17 field) -Photo Taken Yes -Epithelialization None Present -Tunneling No -Undermining/Tunneling Yes -Undermining/Tunneling Starts (O' 12 clock) -Undermining/Tunneling Ends (O'clock) 12 -Maximum Distance (cm) 3 -Circular Undermining Yes -Exudate Amt Large (67-100%) -Exudate Type Serous -Wound Margin Distinct, Outline Attached -Granulation Amt Large (67-100%) -Granulation Quality [place] -Slough/Fibrin No -Necrosis Amt None Present (0 %) -Texture (Amanda-wound Skin Appearance) Scarring -Moisture (Amanda-wound Skin Appearance Assessed ) -Color (Amanda-wound Skin Appearance) Assessed -Temperature (Amanda-wound Skin No Abnormality Appearance) (Pt Warm) -Tenderness on Palpation (Amanda-wound Yes Skin Appearance) -Ulcer Cleansing Rinsed/ Irrigated with Saline -Foul Odor after Cleansing No -Anesthetic Used 4% Lidocaine Solution WC - Nurse 2 - General Ulcer CM Notes Start: 09/06/17 10:13 Freq: Status: Active Protocol: Activity Type Activity Date Activity User E-Sign Co-Sign Detail Recorded Client Recorded Date Recorded By Document 09/06/17 11:29 DV [id number] 09/06/17 11:34 DV 09/06/17 11:29 Wound Center Nurse 2 [Procedure/Treatment] -Time 11:30 -Correct Patient Yes -Correct Side, Site, Position Yes -Correct Procedure Yes -Procedure Performed Yes -Type of Procedure Debridement -Clinical Debridement Subcutaneous -Post Debridement Size (cm) - Length 2.0 -Post Debridement Size (cm) - Width 5.5 -Post Debridement Size (cm) - Depth 2.0 -Total Square Cm 11.00 -Wound/Ulcer Outcome Not Healed -Ulcer Cleansing Rinsed/ Irrigated with Saline -Foul Odor after Cleansing No -Bioengineered Tissue No -Bleeding Controlled with Pressure -Treatment Response Procedure Tolerated Well [See Physician Procedure note for Specifics] Pain Scale: 0-10 Numeric [Pain] -Is Patient Pain Free? Yes Musculoskeletal: No Muscle Wasting Neurological: Cranial nerves II-XII grossly intact Psych/Mental Status: Normal Affect Debridement Note Post-Debridement Measurements/Treatment WC - Nurse 2 - General Ulcer CM Notes Start: 09/06/17 10:13 Freq: Status: Active Protocol: Activity Type Activity Date Activity User E-Sign Co-Sign Detail Recorded Client Recorded Date Recorded By Document 09/06/17 11:29 DV [id number] 09/06/17 11:34 DV 09/06/17 11:29 Wound Center Nurse 2 #4 sacrum -Time 11:30 -Correct Patient Yes -Correct Side, Site, Position Yes -Correct Procedure Yes -Procedure Performed Yes -Type of Procedure Debridement -Clinical Debridement Subcutaneous -Post Debridement Size (cm) - Length 2.0 -Post Debridement Size (cm) - Width 5.5 -Post Debridement Size (cm) - Depth 2.0 -Total Square Cm 11.00 -Wound/Ulcer Outcome Not Healed -Ulcer Cleansing Rinsed/ Irrigated with Saline -Foul Odor after Cleansing No -Bioengineered Tissue No -Bleeding Controlled with Pressure -Treatment Response Procedure Tolerated Well Pain Scale: 0-10 Numeric Is Patient Pain Free? Yes Wound debrided: Sacral Ulcer Wound Grade/Stage: Stage IV Type of Debridement: Excisional debridement Anesthesia Used: 4% Lidocaine Solution Depth: Down to and including healthy tissue, in the subcutaneous layer Percentage of wound debrided: 100 Instrument Used: 5mm curette Tissue Removed: Slough and Devitalized tissue Severity: Fat Layer Exposed Amount of bleeding with debridement: Mild Bleeding Controlled with: Pressure Patient tolerated procedure well Assessment/Plan Active Problems (Last Updated 08/09/17 @ 08:06 by Liz Baker) Pressure ulcer of sacral region, stage 4 (Chronic) Assessment: Stage IV sacral decubitus ulcer. Right heel stage III pressure ulcer. - Healed. Left heel stage III pressure ulcer - Healed. Plan: Stable ulcer over the past week. Has had a wound VAC holiday now for 2 weeks and hypergranulation appears to have improved on the Vac Holiday. Scheduled to follow-up with her surgeon for her colovaginal fistula on 23 October at [facility]. Debridement done as documented above. Procedure was well tolerated. Will Dc Wound Vac and apply for a [employer] Vac due to improvement in hypergranulaton on the holiday and patient's problems with previous vac.Continue to pack wound daily with Aquacel, Guaze and ABD over top. Will reschedule a follow up with Dr. Hansen. Continue offloading of lower extremities ( heels ). Continue increased protein in diet and protein supplements. Follow-up in 2 weeks. This note was generated with [employer] software. It may contain incorrect words, spelling, and punctuation that were not noted in checking the note before signing.
--- NOTE | 2017-09-06 22:55 | PN.PCM_ITS ---
(1) Pressure ulcer of sacral region, stage 4 Status: Chronic Current Visit: Yes Code(s): L89.154 - Pressure ulcer of sacral region, stage 4 (2) Pressure ulcer of left heel, stage 3 Status: Chronic Current Visit: No Code(s): L89.623 - Pressure ulcer of left heel, stage 3 (3) Pressure ulcer of right heel, stage 3 Status: Chronic Current Visit: No Code(s): L89.613 - Pressure ulcer of right heel, stage 3 Type of Wound Date of Service: 09/06/17 Chief Complaint: Stage IV sacral pressure ulceration; bilateral unstageable necrotic heel pressure ulcerations History of Wound: Ms. Chavez is a 67-year-old female who has been seen here about a month ago and managed as a case of bilateral stage III pressure ulcers and stage IV sacral ulcer. Due to insurance issues she has not been seen here in over a month and was seen at another wound center however she returns here today for continued care. 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 She had intraoperative surgical debridement of her sacral wound and has since had a wound VAC. Wound has shown significant progress since initial episode. She currently has a wound VAC to her sacral wound and has been applying collagen to the bilateral heels. She denies chills, fever or otherwise feeling of unwell. Progress of Wound: Stable. No new complaints. - Physical Exam Vital Signs Temp Pulse Resp BP 98 F 80 16 154/89 H 09/06/17 11:04 09/06/17 11:04 09/06/17 11:04 09/06/17 11:04 General: Alert, Oriented x3, Cooperative, No apparent distress HEENT: Atraumatic, Normocephalic Oral: Moist Mucosa Neck: Supple Lungs: Normal air movement Cardiovascular: Regular rate Abdomen: Soft Skin: Ulcer/ Wound Wound Measurements and Assessment WC - Nurse 1 - General Ulcer Measurement Start: 09/06/17 10:13 Freq: Status: Active Protocol: Activity Type Activity Date Activity User E-Sign Co-Sign Detail Recorded Client Recorded Date Recorded By Document 09/06/17 11:04 [facility] [id number] 09/06/17 11:16 [facility] 09/06/17 11:04 Wound Center Nurse 1 [Ulcer Assessment] #4 sacrum -Combined with other wound No -Current Size (cm) - Length 1.8 -Current Size (cm) - Width 5.3 -Current Size (cm) - Depth 2.2 -Total Square Cm 9.54 -Date of Last Picture (Recall this 09/06/17 field) -Photo Taken Yes -Epithelialization None Present -Tunneling No -Undermining/Tunneling Yes -Undermining/Tunneling Starts (O' 12 clock) -Undermining/Tunneling Ends (O'clock) 12 -Maximum Distance (cm) 3 -Circular Undermining Yes -Exudate Amt Large (67-100%) -Exudate Type Serous -Wound Margin Distinct, Outline Attached -Granulation Amt Large (67-100%) -Granulation Quality [place] -Slough/Fibrin No -Necrosis Amt None Present (0 %) -Texture (Amanda-wound Skin Appearance) Scarring -Moisture (Amanda-wound Skin Appearance Assessed ) -Color (Amanda-wound Skin Appearance) Assessed -Temperature (Amanda-wound Skin No Abnormality Appearance) (Pt Warm) -Tenderness on Palpation (Amanda-wound Yes Skin Appearance) -Ulcer Cleansing Rinsed/ Irrigated with Saline -Foul Odor after Cleansing No -Anesthetic Used 4% Lidocaine Solution WC - Nurse 2 - General Ulcer CM Notes Start: 09/06/17 10:13 Freq: Status: Active Protocol: Activity Type Activity Date Activity User E-Sign Co-Sign Detail Recorded Client Recorded Date Recorded By Document 09/06/17 11:29 DV [id number] 09/06/17 11:34 DV 09/06/17 11:29 Wound Center Nurse 2 [Procedure/Treatment] -Time 11:30 -Correct Patient Yes -Correct Side, Site, Position Yes -Correct Procedure Yes -Procedure Performed Yes -Type of Procedure Debridement -Clinical Debridement Subcutaneous -Post Debridement Size (cm) - Length 2.0 -Post Debridement Size (cm) - Width 5.5 -Post Debridement Size (cm) - Depth 2.0 -Total Square Cm 11.00 -Wound/Ulcer Outcome Not Healed -Ulcer Cleansing Rinsed/ Irrigated with Saline -Foul Odor after Cleansing No -Bioengineered Tissue No -Bleeding Controlled with Pressure -Treatment Response Procedure Tolerated Well [See Physician Procedure note for Specifics] Pain Scale: 0-10 Numeric [Pain] -Is Patient Pain Free? Yes Musculoskeletal: No Muscle Wasting Neurological: Cranial nerves II-XII grossly intact Psych/Mental Status: Normal Affect Debridement Note Post-Debridement Measurements/Treatment WC - Nurse 2 - General Ulcer CM Notes Start: 09/06/17 10:13 Freq: Status: Active Protocol: Activity Type Activity Date Activity User E-Sign Co-Sign Detail Recorded Client Recorded Date Recorded By Document 09/06/17 11:29 DV [id number] 09/06/17 11:34 DV 09/06/17 11:29 Wound Center Nurse 2 #4 sacrum -Time 11:30 -Correct Patient Yes -Correct Side, Site, Position Yes -Correct Procedure Yes -Procedure Performed Yes -Type of Procedure Debridement -Clinical Debridement Subcutaneous -Post Debridement Size (cm) - Length 2.0 -Post Debridement Size (cm) - Width 5.5 -Post Debridement Size (cm) - Depth 2.0 -Total Square Cm 11.00 -Wound/Ulcer Outcome Not Healed -Ulcer Cleansing Rinsed/ Irrigated with Saline -Foul Odor after Cleansing No -Bioengineered Tissue No -Bleeding Controlled with Pressure -Treatment Response Procedure Tolerated Well Pain Scale: 0-10 Numeric Is Patient Pain Free? Yes Wound debrided: Sacral Ulcer Wound Grade/Stage: Stage IV Type of Debridement: Excisional debridement Anesthesia Used: 4% Lidocaine Solution Depth: Down to and including healthy tissue, in the subcutaneous layer Percentage of wound debrided: 100 Instrument Used: 5mm curette Tissue Removed: Slough and Devitalized tissue Severity: Fat Layer Exposed Amount of bleeding with debridement: Mild Bleeding Controlled with: Pressure Patient tolerated procedure well Assessment/Plan Active Problems (Last Updated 08/09/17 @ 08:06 by Liz Baker) Pressure ulcer of sacral region, stage 4 (Chronic) Assessment: Stage IV sacral decubitus ulcer. Right heel stage III pressure ulcer. - Healed. Left heel stage III pressure ulcer - Healed. Plan: Stable ulcer over the past week. Has had a wound VAC holiday now for 2 weeks and hypergranulation appears to have improved on the Vac Holiday. Scheduled to follow-up with her surgeon for her colovaginal fistula on 23 October at [facility]. Debridement done as documented above. Procedure was well tolerated. Will Dc Wound Vac and apply for a [employer] Vac due to improvement in hypergranulaton on the holiday and patient's problems with previous vac.Continue to pack wound daily with Aquacel, Guaze and ABD over top. Will reschedule a follow up with Dr. Hansen. Continue offloading of lower extremities ( heels ). Continue increased protein in diet and protein supplements. Follow-up in 2 weeks. This note was generated with [employer] dictation software. It may contain incorrect words, spelling, and punctuation that were not noted in checking the note before signing.
[2017-09-20 12:21] VITALS: BP 129/79; PULSE 77; RESP 18; TEMP 36.1; BMI 40.5
--- NOTE | 2017-09-20 15:43 | PCM.WC.PN ---
(1) Pressure ulcer of sacral region, stage 4 Status: Chronic Current Visit: Yes Code(s): L89.154 - Pressure ulcer of sacral region, stage 4 (2) Pressure ulcer of left heel, stage 3 Status: Chronic Current Visit: No Code(s): L89.623 - Pressure ulcer of left heel, stage 3 (3) Pressure ulcer of right heel, stage 3 Status: Chronic Current Visit: No Code(s): L89.613 - Pressure ulcer of right heel, stage 3 Type of Wound Date of Service: 09/20/17 Chief Complaint: Stage IV sacral pressure ulceration; bilateral unstageable necrotic heel pressure ulcerations History of Wound: Ms. Chavez is a 67-year-old female who has been seen here about a month ago and managed as a case of bilateral stage III pressure ulcers and stage IV sacral ulcer. Due to insurance issues she has not been seen here in over a month and was seen at another wound center however she returns here today for continued care. 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 She had intraoperative surgical debridement of her sacral wound and has since had a wound VAC. Wound has shown significant progress since initial episode. She currently has a wound VAC to her sacral wound and has been applying collagen to the bilateral heels. She denies chills, fever or otherwise feeling of unwell. Progress of Wound: Stable. No new complaints. - Physical Exam Vital Signs Temp Pulse Resp BP 97.0 F L 77 18 129/79 H 09/20/17 12:21 09/20/17 12:21 09/20/17 12:21 09/20/17 12:21 General: Alert, Oriented x3, Cooperative, No apparent distress HEENT: Atraumatic, Normocephalic Oral: Moist Mucosa Neck: Supple Lungs: Normal air movement Cardiovascular: Regular rate Extremities: No cyanosis Skin: Ulcer/ Wound Wound Measurements and Assessment WC - Nurse 1 - General Ulcer Measurement Start: 09/06/17 10:13 Freq: Status: Active Protocol: Activity Type Activity Date Activity User E-Sign Co-Sign Detail Recorded Client Recorded Date Recorded By Document 09/20/17 12:21 TM [id number] 09/20/17 12:24 TM 09/20/17 12:21 Wound Center Nurse 1 [Ulcer Assessment] #4 sacrum -Combined with other wound No -Current Size (cm) - Length 1.7 -Current Size (cm) - Width 5.0 -Current Size (cm) - Depth 2.8 -Total Square Cm 8.50 -Photo Taken No -Epithelialization Small 1-33% -Tunneling No -Undermining/Tunneling Yes -Undermining/Tunneling Starts (O' 8 clock) -Undermining/Tunneling Ends (O'clock) 3 -Maximum Distance (cm) 5.0 -Undermining/Tunneling Starts #2 (O' 4 clock) -Undermining/Tunneling Ends #2 (O' 7 clock) -Maximum Distance #2 (cm) 2.8 -Circular Undermining No -Classification - Thickness Full Thickness without Exposed Support Structure -Exudate Amt Medium (34-66%) -Exudate Type Serosanguineous -Wound Margin Thickened & Rolled Under -Granulation Amt Large (67-100%) -Granulation Quality Red -Slough/Fibrin Yes -Necrosis Amt Small (1-33%) -Necrotic Tissue Type Adherent Slough -Structure Exposed Fascia Fat Layer Exposed -Texture (Amanda-wound Skin Appearance) Scarring -Moisture (Amanda-wound Skin Appearance No Abnormality ) -Color (Amanda-wound Skin Appearance) Erythema -Temperature (Amanda-wound Skin No Abnormality Appearance) (Pt Warm) -Tenderness on Palpation (Amanda-wound No Skin Appearance) -Ulcer Cleansing Rinsed/ Irrigated with Saline -Foul Odor after Cleansing No -Anesthetic Used 5% Lidocaine Gel [Edema Assessment] -Lower Limb Edema Present No WC - Nurse 2 - General Ulcer CM Notes Start: 09/06/17 10:13 Freq: Status: Active Protocol: Activity Type Activity Date Activity User E-Sign Co-Sign Detail Recorded Client Recorded Date Recorded By Document 09/20/17 12:44 DV [id number] 09/20/17 12:46 DV 09/20/17 12:44 Wound Center Nurse 2 [Procedure/Treatment] #4 sacrum -Time 12:44 -Correct Patient Yes -Correct Side, Site, Position Yes -Correct Procedure Yes -Procedure Performed Yes -Type of Procedure Debridement -Clinical Debridement Subcutaneous -Post Debridement Size (cm) - Length 1.7 -Post Debridement Size (cm) - Width 5.0 -Post Debridement Size (cm) - Depth 1.9 -Total Square Cm 8.50 -Wound/Ulcer Outcome Not Healed -Ulcer Cleansing Rinsed/ Irrigated with Saline -Foul Odor after Cleansing No -Bioengineered Tissue No -Bleeding Controlled with Pressure -Treatment Response Procedure Tolerated Well [See Physician Procedure note for Specifics] Pain Scale: 0-10 Numeric [Pain] -Is Patient Pain Free? Yes Musculoskeletal: No Muscle Wasting Neurological: Cranial nerves II-XII grossly intact Psych/Mental Status: Normal Affect Debridement Note Post-Debridement Measurements/Treatment WC - Nurse 2 - General Ulcer CM Notes Start: 09/06/17 10:13 Freq: Status: Active Protocol: Activity Type Activity Date Activity User E-Sign Co-Sign Detail Recorded Client Recorded Date Recorded By Document 09/06/17 11:29 DV [id number] 09/06/17 11:34 DV Document 09/20/17 12:44 DV [id number] 09/20/17 12:46 DV 09/06/17 09/20/17 11:29 12:44 Wound Center Nurse 2 #4 sacrum -Time 11:30 12:44 -Correct Patient Yes Yes -Correct Side, Site, Position Yes Yes -Correct Procedure Yes Yes -Procedure Performed Yes Yes -Type of Procedure Debridement Debridement -Clinical Debridement Subcutaneous Subcutaneous -Post Debridement Size (cm) - Length 2.0 1.7 -Post Debridement Size (cm) - Width 5.5 5.0 -Post Debridement Size (cm) - Depth 2.0 1.9 -Total Square Cm 11.00 8.50 -Wound/Ulcer Outcome Not Healed Not Healed -Ulcer Cleansing Rinsed/ Rinsed/ Irrigated with Irrigated with Saline Saline -Foul Odor after Cleansing No No -Bioengineered Tissue No No -Bleeding Controlled with Pressure Pressure -Treatment Response Procedure Procedure Tolerated Well Tolerated Well Pain Scale: 0-10 Numeric Is Patient Pain Free? Yes Yes Wound debrided: Sacral Ulcer Wound Grade/Stage: Stage IV Type of Debridement: Excisional debridement Anesthesia Used: 4% Lidocaine Solution Depth: Down to and including healthy tissue, in the subcutaneous layer Percentage of wound debrided: 100 Instrument Used: 5mm curette Tissue Removed: Slough and devitalized tissue Severity: Fat Layer Exposed Amount of bleeding with debridement: Mild Bleeding Controlled with: Pressure Patient tolerated procedure well Assessment/Plan Active Problems (Last Updated 08/09/17 @ 08:06 by Liz Baker) Pressure ulcer of sacral region, stage 4 (Chronic) Assessment: Stage IV sacral decubitus ulcer. Right heel stage III pressure ulcer. - Healed. Left heel stage III pressure ulcer - Healed. Plan: Sacral ulcer has remained stable. Central hyper granulation appears to have resolved since VAC holiday. Debridement done as documented above. Procedure was well tolerated. Wound Vac discontinued and plan is to apply for a [employer] Vac due to improvement in hypergranulaton on the holiday and patient's problems with previous vac. Continue to pack wound daily with Aquacel, Guaze and ABD over top. Continue offloading of lower extremities ( heels ). Continue increased protein in diet and protein supplements. Follow-up in 1 week. This note was generated with [employer] dictation software. It may contain incorrect words, spelling, and punctuation that were not noted in checking the note before signing.
[2017-09-27 09:11] VITALS: BP 131/90; PULSE 76; RESP 18; TEMP 36.4; BMI 40.5
--- NOTE | 2017-09-27 10:17 | PCM.WC.PN ---
(1) Pressure ulcer of sacral region, stage 4 Status: Chronic Current Visit: Yes Code(s): L89.154 - Pressure ulcer of sacral region, stage 4 (2) Pressure ulcer of left heel, stage 3 Status: Chronic Current Visit: No Code(s): L89.623 - Pressure ulcer of left heel, stage 3 (3) Pressure ulcer of right heel, stage 3 Status: Chronic Current Visit: No Code(s): L89.613 - Pressure ulcer of right heel, stage 3 Type of Wound Date of Service: 09/27/17 Chief Complaint: Stage IV sacral pressure ulceration; bilateral unstageable necrotic heel pressure ulcerations History of Wound: Ms. Chavez is a 67-year-old female who has been seen here about a month ago and managed as a case of bilateral stage III pressure ulcers and stage IV sacral ulcer. Due to insurance issues she has not been seen here in over a month and was seen at another wound center however she returns here today for continued care. 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 She had intraoperative surgical debridement of her sacral wound and has since had a wound VAC. Wound has shown significant progress since initial episode. She currently has a wound VAC to her sacral wound and has been applying collagen to the bilateral heels. She denies chills, fever or otherwise feeling of unwell. Progress of Wound: Stable. No new complaints. - Physical Exam Vital Signs Temp Pulse Resp BP 97.5 F L 76 18 131/90 H 09/27/17 09:11 09/27/17 09:11 09/27/17 09:11 09/27/17 09:11 General: Alert, Oriented x3, Cooperative, No apparent distress HEENT: Atraumatic, Normocephalic Oral: Moist Mucosa Neck: Supple Lungs: Normal air movement Cardiovascular: Regular rate Extremities: No cyanosis Skin: Ulcer/ Wound Wound Measurements and Assessment WC - Nurse 1 - General Ulcer Measurement Start: 09/06/17 10:13 Freq: Status: Active Protocol: Activity Type Activity Date Activity User E-Sign Co-Sign Detail Recorded Client Recorded Date Recorded By Document 09/27/17 09:11 RB [id number] 09/27/17 09:27 RB 09/27/17 09:11 Wound Center Nurse 1 [Ulcer Assessment] #4 sacrum -Combined with other wound No -Current Size (cm) - Length 1.6 -Current Size (cm) - Width 4.8 -Current Size (cm) - Depth 2.1 -Total Square Cm 7.68 -Photo Taken No -Tunneling No -Undermining/Tunneling Yes -Undermining/Tunneling Starts (O' 12 clock) -Undermining/Tunneling Ends (O'clock) 12 -Maximum Distance (cm) 2.1 -Circular Undermining Yes -Classification - Pressure Ulcer Stage 4 -Exudate Amt Small (1-33%) -Exudate Type Serosanguineous -Wound Margin Distinct, Outline Attached -Granulation Amt Large (67-100%) -Granulation Quality [place] Red -Slough/Fibrin Yes -Necrosis Amt Small (1-33%) -Necrotic Tissue Type Adherent Slough -Structure Exposed N/A -Texture (Amanda-wound Skin Appearance) Assessed -Moisture (Amanda-wound Skin Appearance Assessed ) -Color (Amanda-wound Skin Appearance) Assessed -Temperature (Amanda-wound Skin No Abnormality Appearance) (Pt Warm) -Tenderness on Palpation (Amanda-wound No Skin Appearance) -Ulcer Cleansing Rinsed/ Irrigated with Saline -Foul Odor after Cleansing No -Anesthetic Used 5% Lidocaine Gel WC - Nurse 2 - General Ulcer CM Notes Start: 09/06/17 10:13 Freq: Status: Active Protocol: Activity Type Activity Date Activity User E-Sign Co-Sign Detail Recorded Client Recorded Date Recorded By Document 09/27/17 09:38 DV [id number] 09/27/17 09:40 DV 09/27/17 09:38 Wound Center Nurse 2 [Procedure/Treatment] -Time 09:38 -Correct Patient Yes -Correct Side, Site, Position Yes -Correct Procedure Yes -Procedure Performed Yes -Type of Procedure Debridement -Clinical Debridement Subcutaneous -Post Debridement Size (cm) - Length 1.7 -Post Debridement Size (cm) - Width 4.6 -Post Debridement Size (cm) - Depth 2.0 -Total Square Cm 7.82 -Wound/Ulcer Outcome Not Healed -Ulcer Cleansing Rinsed/ Irrigated with Saline -Foul Odor after Cleansing No -Bioengineered Tissue No -Bleeding Controlled with NA -Treatment Response Procedure Tolerated Well [See Physician Procedure note for Specifics] Pain Scale: 0-10 Numeric [Pain] -Is Patient Pain Free? Yes Musculoskeletal: No Muscle Wasting Neurological: Cranial nerves II-XII grossly intact Psych/Mental Status: Normal Affect Debridement Note Post-Debridement Measurements/Treatment WC - Nurse 2 - General Ulcer CM Notes Start: 09/06/17 10:13 Freq: Status: Active Protocol: Activity Type Activity Date Activity User E-Sign Co-Sign Detail Recorded Client Recorded Date Recorded By Document 09/06/17 11:29 DV [id number] 09/06/17 11:34 DV Document 09/20/17 12:44 DV [id number] 09/20/17 12:46 DV Document 09/27/17 09:38 DV [id number] 09/27/17 09:40 DV 09/06/17 09/20/17 09/27/17 11:29 12:44 09:38 Wound Center Nurse 2 #4 sacrum -Time 11:30 12:44 09:38 -Correct Patient Yes Yes Yes -Correct Side, Site, Position Yes Yes Yes -Correct Procedure Yes Yes Yes -Procedure Performed Yes Yes Yes -Type of Procedure Debridement Debridement Debridement -Clinical Debridement Subcutaneous Subcutaneous Subcutaneous -Post Debridement Size (cm) - Length 2.0 1.7 1.7 -Post Debridement Size (cm) - Width 5.5 5.0 4.6 -Post Debridement Size (cm) - Depth 2.0 1.9 2.0 -Total Square Cm 11.00 8.50 7.82 -Wound/Ulcer Outcome Not Healed Not Healed Not Healed -Ulcer Cleansing Rinsed/ Rinsed/ Rinsed/ Irrigated with Irrigated with Irrigated with Saline Saline Saline -Foul Odor after Cleansing No No No -Bioengineered Tissue No No No -Bleeding Controlled with Pressure Pressure NA -Treatment Response Procedure Procedure Procedure Tolerated Well Tolerated Well Tolerated Well Pain Scale: 0-10 Numeric Is Patient Pain Free? Yes Yes Yes Wound debrided: Sacral Ulcer Wound Grade/Stage: Stage IV Type of Debridement: Excisional debridement Anesthesia Used: 5% Lidocaine Gel Depth: Down to and including healthy tissue, in the subcutaneous layer Percentage of wound debrided: 100 Instrument Used: 5mm curette Tissue Removed: Slough and devitalized tissue Severity: Fat Layer Exposed Amount of bleeding with debridement: Mild Bleeding Controlled with: Pressure Patient tolerated procedure well Assessment/Plan Active Problems (Last Updated 08/09/17 @ 08:06 by Liz Baker) Pressure ulcer of sacral region, stage 4 (Chronic) Assessment: Stage IV sacral decubitus ulcer. Right heel stage III pressure ulcer. - Healed. Left heel stage III pressure ulcer - Healed. Plan: Sacral ulcer has remained stable. Debridement done as documented above. Procedure was well tolerated. Wound Vac discontinued and plan is to apply for a [employer] Vac ( if needed ) due to improvement in hypergranulaton on the holiday and patient's problems with previous vac. Continue to pack wound daily with Fibracol, Guaze and ABD over top. Continue offloading of lower extremities ( heels ). Continue increased protein in diet and protein supplements. Follow-up in 1 week. This note was generated with [employer] dictation software. It may contain incorrect words, spelling, and punctuation that were not noted in checking the note before signing.
== END 2017-10-01 23:59 ==
LOC: WC 09:00
PROVIDERS: Family Provider Family Medicine Geriatric Medicine; PCP Family Medicine Geriatric Medicine; Visit Provider Internal Medicine
DX: L89.154 Pressure ulcer of sacral region, stage 4 (principal); L89.613 Pressure ulcer of right heel, stage 3; N39.0 Urinary tract infection, site not specified
CPT/HCPCS: 11042; 87086; 87088; 87186

== ENCOUNTER → 2017-10-22 12:06 | Outpatient (CLI) | payer MEDICARE, OTHER, SELFPAY ==
[2017-10-22 12:54] LABS: Absolute Lymphocyte Count 1.86 X10^3/ul (0.83-4.51); Basophil# 0.03 X10^3/uL; Basophil% 0.2 % (0-1); Eosinophil# 0.08 X10^3/uL; Eosinophils% 0.6 % (0-5); Lymphocyte # 1.86 X10^3/ul (4.0); Mean Corp Hgb Conc 28.6 g/gl (32-36); Mean Corpuscular Hgb 19.5 pg (27.0-32.0); Mean Corpuscular Volume 68.4 fL (81-99); Monocyte# 1.38 X10^3/uL; Monocyte% 11.1 % (0-10); Neutrophil # 9.02 X10^3/uL (2.7-7.7); Neutrophil % 72.9 % (47-70); Platelet Count 534 K/mm3 (150-450); RBC Distribution Width CV 19.6 % (11.6-14.6); RBC Distribution Width SD 48.9 fl (35.1-43.9); Red Blood Count 5.12 M/mm3 (4.2-5.4); White Blood Count 12.4 K/mm3 (4.4-11.0)
[2017-10-22 12:57] LABS: Differential Indicated SCAN CRITERIA MET; POSITIVE COUNT NO; POSITIVE DIFFERENTIAL NO; POSITIVE MORPHOLOGY YES
[2017-10-22 13:15] LABS: Vitamin D,25 Hydroxy 27.9 ng/mL (29.95-100.01)
[2017-10-22 13:16] LABS: ALB/GLOB Ratio 0.8 RATIO (0.9-2.4); AST(SGOT) 16 U/L (15-37); Alanine Aminotransfer ALT/SGPT 14 U/L (13-56); Albumin, Serum 3.6 g/dL (3.2-5.0); Alkaline Phosphatase 76 U/L (45-117); Anion Gap 7 (5-15); BUN 22 mg/dL (7-18); BUN/Creat Ratio 30.6 RATIO (10-20); Calcium,Total 9.2 mg/dL (8.5-10.1); Chloride 106 mmol/L (98-107); Creatinine, Serum 0.72 mg/dL (0.55-1.02); EST Glomerular Filtration Rate 86 mL/min (>60); Est Glom Filt Rate - Afr Amer 104 mL/min (>60); Globulin 4.8 g/dL (2.2-4.2); Glucose 94 mg/dL (74-106); Potassium 5.1 mmol/L (3.5-5.1); Protein, Total 8.4 g/dL (6.4-8.2); Sodium Level 140 mmol/L (136-145); Thyroid Stim Hormone (TSH) 1.24 uIU/mL (0.358-3.74)
[2017-10-22 13:19] LABS: Anisocytosis 1+; Hypochromasia 1+; Microcytosis 2+; Platelet Estimate ADEQUATE (ADEQ)
== END ==
PROVIDERS: Family Provider Family Medicine Geriatric Medicine; PCP Family Medicine Geriatric Medicine; Visit Provider Family Medicine Geriatric Medicine
DX: E55.9 Vitamin D deficiency, unspecified (principal); I10 Essential (primary) hypertension
CPT/HCPCS: 36415; 80053; 82306; 84443; 85025

== ENCOUNTER 2017-10-31 11:00 | Outpatient (RCR) | payer MEDICARE, OTHER, SELFPAY ==
[2017-10-02 00:32] VITALS: BP 114/85; PULSE 76; RESP 18; TEMP 36.4; BMI 40.5
[2017-10-04 09:08] VITALS: BP 125/79; PULSE 93; RESP 18; TEMP 35.9; BMI 40.5
--- NOTE | 2017-10-04 12:54 | PN.PCM_ITS ---
(1) Morbid obesity with BMI of 40.0-44.9, adult Status: Acute Current Visit: Yes Code(s): E66.01 - Morbid (severe) obesity due to excess calories; Z68.41 - Body mass index (BMI) 40.0-44.9, adult (2) Pressure ulcer of sacral region, stage 4 Status: Chronic Current Visit: Yes Code(s): L89.154 - Pressure ulcer of sacral region, stage 4 Type of Wound Date of Service: 10/04/17 Chief Complaint: Stage IV sacral pressure ulceration; bilateral unstageable necrotic heel pressure ulcerations History of Wound: Ms. Chavez is a 67-year-old female who has been seen here about a month ago and managed as a case of bilateral stage III pressure ulcers and stage IV sacral ulcer. Due to insurance issues she has not been seen here in over a month and was seen at another wound center however she returns here today for continued care. 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 She had intraoperative surgical debridement of her sacral wound and has since had a wound VAC. Wound has shown significant progress since initial episode. She currently has a wound VAC to her sacral wound and has been applying collagen to the bilateral heels. She denies chills, fever or otherwise feeling of unwell. Progress of Wound: Stable. No new complaints. - Physical Exam Vital Signs Temp Pulse Resp BP 96.6 F L 93 18 125/79 H 10/04/17 09:08 10/04/17 09:08 10/04/17 09:08 10/04/17 09:08 General: Alert, Oriented x3, Cooperative, No apparent distress HEENT: Atraumatic, Normocephalic Oral: Moist Mucosa Neck: Supple Lungs: Normal air movement Cardiovascular: Regular rate Skin: Ulcer/ Wound Wound Measurements and Assessment WC - Nurse 1 - General Ulcer Measurement Start: 10/04/17 09:07 Freq: Status: Active Protocol: Activity Type Activity Date Activity User E-Sign Co-Sign Detail Recorded Client Recorded Date Recorded By Document 10/04/17 09:08 RB [id number] 10/04/17 09:19 RB 10/04/17 09:08 Wound Center Nurse 1 [Ulcer Assessment] #4 sacrum -Combined with other wound No -Current Size (cm) - Length 1.6 -Current Size (cm) - Width 4.8 -Current Size (cm) - Depth 2.2 -Total Square Cm 7.68 -Tunneling No -Undermining/Tunneling Yes -Undermining/Tunneling Starts (O' 12 clock) -Undermining/Tunneling Ends (O'clock) 12 -Maximum Distance (cm) 4.3 -Circular Undermining Yes -Classification - Pressure Ulcer Stage 4 -Exudate Amt Small (1-33%) -Exudate Type Serosanguineous -Wound Margin Distinct, Outline Attached -Granulation Amt Medium (34-66%) -Granulation Quality [place] -Slough/Fibrin Yes -Necrosis Amt Small (1-33%) -Necrotic Tissue Type Adherent Slough -Structure Exposed N/A -Texture (Amanda-wound Skin Appearance) Assessed Scarring -Moisture (Amanda-wound Skin Appearance Assessed ) -Color (Amanda-wound Skin Appearance) Assessed -Temperature (Amanda-wound Skin No Abnormality Appearance) (Pt Warm) -Tenderness on Palpation (Amanda-wound No Skin Appearance) -Ulcer Cleansing Rinsed/ Irrigated with Saline -Foul Odor after Cleansing No -Anesthetic Used 4% Lidocaine Solution WC - Nurse 2 - General Ulcer CM Notes Start: 10/04/17 09:07 Freq: Status: Active Protocol: Activity Type Activity Date Activity User E-Sign Co-Sign Detail Recorded Client Recorded Date Recorded By Document 10/04/17 10:13 DV [id number] 10/04/17 10:15 DV 10/04/17 10:13 Wound Center Nurse 2 [Procedure/Treatment] -Time 10:13 -Correct Patient Yes -Correct Side, Site, Position Yes -Correct Procedure Yes -Procedure Performed Yes -Type of Procedure Debridement -Clinical Debridement Subcutaneous -Post Debridement Size (cm) - Length 2.0 -Post Debridement Size (cm) - Width 4.8 -Post Debridement Size (cm) - Depth 1.8 -Total Square Cm 9.60 -Wound/Ulcer Outcome Not Healed -Ulcer Cleansing Rinsed/ Irrigated with Saline -Foul Odor after Cleansing No -Bioengineered Tissue No -Bleeding Controlled with Pressure -Treatment Response Procedure Tolerated Well [See Physician Procedure note for Specifics] Pain Scale: 0-10 Numeric [Pain] -Is Patient Pain Free? Yes Musculoskeletal: No Muscle Wasting Neurological: Cranial nerves II-XII grossly intact Psych/Mental Status: Normal Affect Debridement Note Post-Debridement Measurements/Treatment WC - Nurse 2 - General Ulcer CM Notes Start: 10/04/17 09:07 Freq: Status: Active Protocol: Activity Type Activity Date Activity User E-Sign Co-Sign Detail Recorded Client Recorded Date Recorded By Document 10/04/17 10:13 DV [id number] 10/04/17 10:15 DV 10/04/17 10:13 Wound Center Nurse 2 #4 sacrum -Time 10:13 -Correct Patient Yes -Correct Side, Site, Position Yes -Correct Procedure Yes -Procedure Performed Yes -Type of Procedure Debridement -Clinical Debridement Subcutaneous -Post Debridement Size (cm) - Length 2.0 -Post Debridement Size (cm) - Width 4.8 -Post Debridement Size (cm) - Depth 1.8 -Total Square Cm 9.60 -Wound/Ulcer Outcome Not Healed -Ulcer Cleansing Rinsed/ Irrigated with Saline -Foul Odor after Cleansing No -Bioengineered Tissue No -Bleeding Controlled with Pressure -Treatment Response Procedure Tolerated Well Pain Scale: 0-10 Numeric Is Patient Pain Free? Yes Wound debrided: sacral ulcer Wound Grade/Stage: Stage IV Type of Debridement: Excisional debridement Anesthesia Used: 4% Lidocaine Solution Depth: Down to and including healthy tissue, in the subcutaneous layer Percentage of wound debrided: 100 Instrument Used: 7mm curette Tissue Removed: Slough and devitalized tissue Severity: Fat Layer Exposed Amount of bleeding with debridement: Mild Bleeding Controlled with: Pressure Patient tolerated procedure well Assessment/Plan Active Problems (Last Updated 08/09/17 @ 08:06 by Liz Baker) Morbid obesity with BMI of 40.0-44.9, adult (Acute) Pressure ulcer of sacral region, stage 4 (Chronic) Assessment: Stage IV sacral decubitus ulcer. Right heel stage III pressure ulcer. - Healed. Left heel stage III pressure ulcer - Healed. Plan: Sacral ulcer has remained stable. Debridement done as documented above. Procedure was well tolerated. Discussed with Dr Hansen ( Plastic Surgery ) and plan is for possible surgical exploration after colovaginal fistula is taken care of. Continue to pack wound daily with Fibracol, Guaze and ABD over top. Continue offloading of lower extremities ( heels ). Continue increased protein in diet and protein supplements. Follow-up in 1 week. This note was generated with Dragon dictation software. It may contain incorrect words, spelling, and punctuation that were not noted in checking the note before signing.
[2017-10-11 09:03] VITALS: BP 130/74; PULSE 82; RESP 18; TEMP 35.8; BMI 40.5
--- NOTE | 2017-10-11 10:34 | PCM.WC.PN ---
(1) Morbid obesity with BMI of 40.0-44.9, adult Status: Acute Current Visit: Yes Code(s): E66.01 - Morbid (severe) obesity due to excess calories; Z68.41 - Body mass index (BMI) 40.0-44.9, adult (2) Pressure ulcer of sacral region, stage 4 Status: Chronic Current Visit: Yes Code(s): L89.154 - Pressure ulcer of sacral region, stage 4 Type of Wound Date of Service: 10/11/17 Chief Complaint: Stage IV sacral pressure ulceration; bilateral unstageable necrotic heel pressure ulcerations History of Wound: Ms. Chavez is a 67-year-old female who has been seen here about a month ago and managed as a case of bilateral stage III pressure ulcers and stage IV sacral ulcer. Due to insurance issues she has not been seen here in over a month and was seen at another wound center however she returns here today for continued care. 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 She had intraoperative surgical debridement of her sacral wound and has since had a wound VAC. Wound has shown significant progress since initial episode. She currently has a wound VAC to her sacral wound and has been applying collagen to the bilateral heels. She denies chills, fever or otherwise feeling of unwell. Progress of Wound: Stable. No new complaints. - Physical Exam Vital Signs Temp Pulse Resp BP 96.5 F L 82 18 130/74 H 10/11/17 09:03 10/11/17 09:03 10/11/17 09:03 10/11/17 09:03 General: Alert, Oriented x3, Cooperative, No apparent distress HEENT: Atraumatic, Normocephalic Oral: Moist Mucosa Neck: Supple Lungs: Normal air movement Cardiovascular: Regular rate Extremities: No cyanosis Skin: Ulcer/ Wound Wound Measurements and Assessment WC - Nurse 1 - General Ulcer Measurement Start: 10/04/17 09:07 Freq: Status: Active Protocol: Activity Type Activity Date Activity User E-Sign Co-Sign Detail Recorded Client Recorded Date Recorded By Document 10/11/17 09:03 TN [id number] 10/11/17 09:15 TN 10/11/17 09:03 Wound Center Nurse 1 [Ulcer Assessment] #4 sacrum -Combined with other wound No -Current Size (cm) - Length 1.7 -Current Size (cm) - Width 4.6 -Current Size (cm) - Depth 1.3 -Total Square Cm 7.82 -Date of Last Picture (Recall this 10/11/17 field) -Photo Taken Yes -Epithelialization None Present -Undermining/Tunneling Yes -Undermining/Tunneling Starts (O' 12 clock) -Undermining/Tunneling Ends (O'clock) 12 -Maximum Distance (cm) 1.6 -Circular Undermining No -Classification - Thickness Full Thickness without Exposed Support Structure -Change in Wound Grade/Stage No Query Text:If change please identify the Stage/Grade in the comment (ie. S2 G3) -Exudate Amt Large (67-100%) -Exudate Type Serosanguineous -Wound Margin Distinct, Outline Attached -Granulation Amt Large (67-100%) -Granulation Quality [place] -Slough/Fibrin Yes -Necrosis Amt Small (1-33%) -Necrotic Tissue Type Adherent Slough -Structure Exposed None/Limited to Skin Breakdown -Texture (Amanda-wound Skin Appearance) Assessed Scarring -Moisture (Amanda-wound Skin Appearance No Abnormality ) Assessed -Color (Amanda-wound Skin Appearance) No Abnormality Assessed -Temperature (Amanda-wound Skin No Abnormality Appearance) (Pt Warm) -Tenderness on Palpation (Amanda-wound No Skin Appearance) -Ulcer Cleansing Rinsed/ Irrigated with Saline -Foul Odor after Cleansing No -Anesthetic Used 4% Lidocaine Solution [Edema Assessment] -Lower Limb Edema Present No Musculoskeletal: No Muscle Wasting Neurological: Cranial nerves II-XII grossly intact Psych/Mental Status: Normal Affect Debridement Note Post-Debridement Measurements/Treatment WC - Nurse 2 - General Ulcer CM Notes Start: 10/04/17 09:07 Freq: Status: Active Protocol: Activity Type Activity Date Activity User E-Sign Co-Sign Detail Recorded Client Recorded Date Recorded By Document 10/04/17 10:13 DV [id number] 10/04/17 10:15 DV 10/04/17 10:13 Wound Center Nurse 2 #4 sacrum -Time 10:13 -Correct Patient Yes -Correct Side, Site, Position Yes -Correct Procedure Yes -Procedure Performed Yes -Type of Procedure Debridement -Clinical Debridement Subcutaneous -Post Debridement Size (cm) - Length 2.0 -Post Debridement Size (cm) - Width 4.8 -Post Debridement Size (cm) - Depth 1.8 -Total Square Cm 9.60 -Wound/Ulcer Outcome Not Healed -Ulcer Cleansing Rinsed/ Irrigated with Saline -Foul Odor after Cleansing No -Bioengineered Tissue No -Bleeding Controlled with Pressure -Treatment Response Procedure Tolerated Well Pain Scale: 0-10 Numeric Is Patient Pain Free? Yes Wound debrided: Sacral Ulcer Wound Grade/Stage: Stage IV Type of Debridement: Excisional debridement Anesthesia Used: 4% Lidocaine Solution Depth: Down to and including healthy tissue, in the subcutaneous layer Percentage of wound debrided: 100 Instrument Used: 7mm curette Tissue Removed: Slough and devitalized tissue Severity: Fat Layer Exposed Amount of bleeding with debridement: Mild Bleeding Controlled with: Compression and gauze Patient tolerated procedure well Assessment/Plan Active Problems (Last Updated 08/09/17 @ 08:06 by Liz Baker) Morbid obesity with BMI of 40.0-44.9, adult (Acute) Pressure ulcer of sacral region, stage 4 (Chronic) Assessment: Stage IV sacral decubitus ulcer. Right heel stage III pressure ulcer. - Healed. Left heel stage III pressure ulcer - Healed. Plan: No significant changes in the past week. Debridement done as documented above. Procedure was well tolerated. Colovaginal Fistula follow up is on the . Possible surgical debridement of scaral ulcer after that is taken care of. Continue to pack wound daily with Fibracol, Guaze and ABD over top. Continue offloading of lower extremities ( heels ). Continue increased protein in diet and protein supplements. Follow-up in 1 week. This note was generated with [employer] software. It may contain incorrect words, spelling, and punctuation that were not noted in checking the note before signing.
[2017-10-17 12:14] VITALS: BP 143/81; PULSE 82; RESP 18; TEMP 36.8; BMI 40.5
--- NOTE | 2017-10-17 12:35 | PCM.WC.PN ---
(1) Morbid obesity with BMI of 40.0-44.9, adult Status: Acute Current Visit: Yes Code(s): E66.01 - Morbid (severe) obesity due to excess calories; Z68.41 - Body mass index (BMI) 40.0-44.9, adult (2) Pressure ulcer of sacral region, stage 4 Status: Chronic Current Visit: Yes Code(s): L89.154 - Pressure ulcer of sacral region, stage 4 Type of Wound Date of Service: 10/17/17 Chief Complaint: Stage IV sacral pressure ulceration; bilateral unstageable necrotic heel pressure ulcerations History of Wound: Ms. Chavez is a 67-year-old female who has been seen here about a month ago and managed as a case of bilateral stage III pressure ulcers and stage IV sacral ulcer. Due to insurance issues she has not been seen here in over a month and was seen at another wound center however she returns here today for continued care. 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 She had intraoperative surgical debridement of her sacral wound and has since had a wound VAC. Wound has shown significant progress since initial episode. She currently has a wound VAC to her sacral wound and has been applying collagen to the bilateral heels. She denies chills, fever or otherwise feeling of unwell. Progress of Wound: Stable. No new complaints. - Physical Exam Vital Signs Temp Pulse Resp BP 98.2 F 82 18 143/81 H 10/17/17 12:14 10/17/17 12:14 10/17/17 12:14 10/17/17 12:14 General: Alert, Oriented x3, Cooperative, No apparent distress HEENT: Atraumatic, Normocephalic Oral: Moist Mucosa Neck: Supple Lungs: Normal air movement Cardiovascular: Regular rate Abdomen: Non Tender, Obese Skin: Ulcer/ Wound Wound Measurements and Assessment WC - Nurse 1 - General Ulcer Measurement Start: 10/04/17 09:07 Freq: Status: Active Protocol: Activity Type Activity Date Activity User E-Sign Co-Sign Detail Recorded Client Recorded Date Recorded By Document 10/17/17 12:14 SHIRA [id number] 10/17/17 12:16 SHIRA 10/17/17 12:14 Wound Center Nurse 1 [Ulcer Assessment] #4 sacrum -Combined with other wound No -Current Size (cm) - Length 1.4 -Current Size (cm) - Width 4.3 -Current Size (cm) - Depth 1.6 -Total Square Cm 6.02 -Photo Taken No -Epithelialization Medium 34-66% -Tunneling No -Undermining/Tunneling No -Circular Undermining Yes -Exudate Amt Large (67-100%) -Exudate Type Serosanguineous -Wound Margin Flat & Intact -Granulation Amt Large (67-100%) -Granulation Quality Red -Slough/Fibrin Yes -Necrosis Amt Small (1-33%) -Necrotic Tissue Type Adherent Slough -Structure Exposed N/A -Texture (Amanda-wound Skin Appearance) Assessed Scarring -Moisture (Amanda-wound Skin Appearance Assessed ) Dry/Scaly -Color (Amanda-wound Skin Appearance) Assessed -Temperature (Amanda-wound Skin No Abnormality Appearance) (Pt Warm) -Tenderness on Palpation (Amanda-wound No Skin Appearance) -Ulcer Cleansing Rinsed/ Irrigated with Saline -Foul Odor after Cleansing No -Anesthetic Used 4% Lidocaine Solution [Edema Assessment] -Lower Limb Edema Present NA - Nurse 2 - General Ulcer CM Notes Start: 10/04/17 09:07 Freq: Status: Active Protocol: Activity Type Activity Date Activity User E-Sign Co-Sign Detail Recorded Client Recorded Date Recorded By Document 10/17/17 12:31 DV [id number] 10/17/17 12:32 DV 10/17/17 12:31 Wound Center Nurse 2 [Procedure/Treatment] #4 sacrum -Time 12:31 -Correct Patient Yes -Correct Side, Site, Position Yes -Correct Procedure Yes -Procedure Performed Yes -Type of Procedure Debridement -Clinical Debridement Subcutaneous -Post Debridement Size (cm) - Length 1.7 -Post Debridement Size (cm) - Width 4.3 -Post Debridement Size (cm) - Depth 1.6 -Total Square Cm 7.31 -Wound/Ulcer Outcome Not Healed -Ulcer Cleansing Rinsed/ Irrigated with Saline -Foul Odor after Cleansing No -Bioengineered Tissue No -Bleeding Controlled with Pressure -Treatment Response Procedure Tolerated Well [See Physician Procedure note for Specifics] Pain Scale: 0-10 Numeric [Pain] -Is Patient Pain Free? Yes Musculoskeletal: No Muscle Wasting Neurological: Cranial nerves II-XII grossly intact Psych/Mental Status: Normal Affect Debridement Note Post-Debridement Measurements/Treatment - Nurse 2 - General Ulcer CM Notes Start: 10/04/17 09:07 Freq: Status: Active Protocol: Activity Type Activity Date Activity User E-Sign Co-Sign Detail Recorded Client Recorded Date Recorded By Document 10/04/17 10:13 DV [id number] 10/04/17 10:15 DV Document 10/11/17 10:47 TN [id number] 10/11/17 10:57 TN Document 10/17/17 12:31 DV [id number] 10/17/17 12:32 DV 10/04/17 10/11/17 10/17/17 10:13 10:47 12:31 Wound Center Nurse 2 #4 sacrum -Time 10:13 10:48 12:31 -Correct Patient Yes Yes Yes -Correct Side, Site, Position Yes Yes Yes -Correct Procedure Yes Yes Yes -Procedure Performed Yes Yes Yes -Type of Procedure Debridement Debridement Debridement -Clinical Debridement Subcutaneous Subcutaneous Subcutaneous -Post Debridement Size (cm) - Length 2.0 1.6 1.7 -Post Debridement Size (cm) - Width 4.8 4.6 4.3 -Post Debridement Size (cm) - Depth 1.8 2.0 1.6 -Total Square Cm 9.60 7.36 7.31 -Wound/Ulcer Outcome Not Healed Not Healed Not Healed -Ulcer Cleansing Rinsed/ Rinsed/ Rinsed/ Irrigated with Irrigated with Irrigated with Saline Saline Saline -Foul Odor after Cleansing No No No -Bioengineered Tissue No No No -Bleeding Controlled with Pressure Pressure Pressure -Treatment Response Procedure Procedure Procedure Tolerated Well Tolerated Well Tolerated Well Pain Scale: 0-10 Numeric Is Patient Pain Free? Yes Yes Yes Wound debrided: Sacral ulcer Wound Grade/Stage: Stage IV Type of Debridement: Excisional debridement Anesthesia Used: 4% Lidocaine Solution Depth: Down to and including healthy tissue, in the subcutaneous layer Percentage of wound debrided: 100 Instrument Used: 7mm curette Tissue Removed: Slough and devitalized tissue Severity: Fat Layer Exposed Amount of bleeding with debridement: Mild Bleeding Controlled with: Pressure Patient tolerated procedure well Assessment/Plan Active Problems (Last Updated 08/09/17 @ 08:06 by Liz Baker) Morbid obesity with BMI of 40.0-44.9, adult (Acute) Pressure ulcer of sacral region, stage 4 (Chronic) Assessment: Stage IV sacral decubitus ulcer. Right heel stage III pressure ulcer. - Healed. Left heel stage III pressure ulcer - Healed. Plan: Stable ulcer. No new complaints. Having problems with her supplu however. Debridement done as documented above. Procedure was well tolerated. Colovaginal Fistula follow up is on next sunday. Possible surgical debridement of sacral ulcer after that is taken care of. Continue to pack wound daily with Fibracol, Guaze and ABD over top. Continue offloading of lower extremities ( heels ). Continue increased protein in diet and protein supplements. Follow-up in 1 week. This note was generated with [employer] dictation software. It may contain incorrect words, spelling, and punctuation that were not noted in checking the note before signing.
[2017-10-24 09:35] VITALS: BP 138/74; PULSE 87; RESP 16; TEMP 36.6; BMI 40.5
--- NOTE | 2017-10-24 10:21 | PCM.WC.PN ---
(1) Morbid obesity with BMI of 40.0-44.9, adult Status: Acute Current Visit: Yes Code(s): E66.01 - Morbid (severe) obesity due to excess calories; Z68.41 - Body mass index (BMI) 40.0-44.9, adult (2) Pressure ulcer of sacral region, stage 4 Status: Chronic Current Visit: Yes Code(s): L89.154 - Pressure ulcer of sacral region, stage 4 Type of Wound Date of Service: 10/24/17 Chief Complaint: Stage IV sacral pressure ulceration; bilateral unstageable necrotic heel pressure ulcerations History of Wound: Ms. Chavez is a 67-year-old female who has been seen here about a month ago and managed as a case of bilateral stage III pressure ulcers and stage IV sacral ulcer. Due to insurance issues she has not been seen here in over a month and was seen at another wound center however she returns here today for continued care. 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 She had intraoperative surgical debridement of her sacral wound and has since had a wound VAC. Wound has shown significant progress since initial episode. She currently has a wound VAC to her sacral wound and has been applying collagen to the bilateral heels. She denies chills, fever or otherwise feeling of unwell. Progress of Wound: Stable. No new complaints. - Physical Exam Vital Signs Temp Pulse Resp BP 98 F 87 16 138/74 H 10/24/17 09:35 10/24/17 09:35 10/24/17 09:35 10/24/17 09:35 General: Alert, Oriented x3, Cooperative, No apparent distress HEENT: Atraumatic, Normocephalic Oral: Moist Mucosa Neck: Supple Lungs: Normal air movement Cardiovascular: Regular rate Extremities: No cyanosis Skin: Ulcer/ Wound Wound Measurements and Assessment WC - Nurse 1 - General Ulcer Measurement Start: 10/04/17 09:07 Freq: Status: Active Protocol: Activity Type Activity Date Activity User E-Sign Co-Sign Detail Recorded Client Recorded Date Recorded By Document 10/24/17 09:35 [facility] [id number] 10/24/17 09:48 [facility] 10/24/17 09:35 Wound Center Nurse 1 [Ulcer Assessment] #4 sacrum -Combined with other wound No -Current Size (cm) - Length 1.4 -Current Size (cm) - Width 4.1 -Current Size (cm) - Depth 1.5 -Total Square Cm 5.74 -Photo Taken No -Epithelialization None Present -Tunneling No -Undermining/Tunneling Yes -Undermining/Tunneling Starts (O' 12 clock) -Undermining/Tunneling Ends (O'clock) 12 -Maximum Distance (cm) 3.4 -Circular Undermining Yes -Exudate Amt Medium (34-66%) -Exudate Type Serous -Wound Margin Distinct, Outline Attached -Granulation Amt Large (67-100%) -Granulation Quality [place] -Slough/Fibrin Yes -Necrosis Amt Small (1-33%) -Necrotic Tissue Type Adherent Slough -Texture (Amanda-wound Skin Appearance) Scarring -Moisture (Amanda-wound Skin Appearance Assessed ) -Color (Amanda-wound Skin Appearance) Assessed -Temperature (Amanda-wound Skin No Abnormality Appearance) (Pt Warm) -Tenderness on Palpation (Amanda-wound No Skin Appearance) -Ulcer Cleansing Rinsed/ Irrigated with Saline -Foul Odor after Cleansing No -Anesthetic Used 4% Lidocaine Solution WC - Nurse 2 - General Ulcer CM Notes Start: 10/04/17 09:07 Freq: Status: Active Protocol: Activity Type Activity Date Activity User E-Sign Co-Sign Detail Recorded Client Recorded Date Recorded By Document 10/24/17 10:04 DV [id number] 10/24/17 10:10 DV 10/24/17 10:04 Wound Center Nurse 2 [Procedure/Treatment] -Time 10:06 -Correct Patient Yes -Correct Side, Site, Position Yes -Correct Procedure Yes -Procedure Performed Yes -Type of Procedure Debridement -Clinical Debridement Subcutaneous -Post Debridement Size (cm) - Length 1.5 -Post Debridement Size (cm) - Width 4.5 -Post Debridement Size (cm) - Depth 1.7 -Total Square Cm 6.75 -Wound/Ulcer Outcome Not Healed -Ulcer Cleansing Rinsed/ Irrigated with Saline -Foul Odor after Cleansing No -Bioengineered Tissue No -Bleeding Controlled with NA -Treatment Response Procedure Tolerated Well [See Physician Procedure note for Specifics] Pain Scale: 0-10 Numeric [Pain] -Is Patient Pain Free? Yes Musculoskeletal: No Muscle Wasting Neurological: Cranial nerves II-XII grossly intact Psych/Mental Status: Normal Affect Debridement Note Post-Debridement Measurements/Treatment WC - Nurse 2 - General Ulcer CM Notes Start: 10/04/17 09:07 Freq: Status: Active Protocol: Activity Type Activity Date Activity User E-Sign Co-Sign Detail Recorded Client Recorded Date Recorded By Document 10/04/17 10:13 DV [id number] 10/04/17 10:15 DV Document 10/11/17 10:47 TN [id number] 10/11/17 10:57 TN Document 10/17/17 12:31 DV [id number] 10/17/17 12:32 DV Document 10/24/17 10:04 DV [id number] 10/24/17 10:10 DV 10/04/17 10/11/17 10/17/17 10:13 10:47 12:31 Wound Center Nurse 2 #4 sacrum -Time 10:13 10:48 12:31 -Correct Patient Yes Yes Yes -Correct Side, Site, Position Yes Yes Yes -Correct Procedure Yes Yes Yes -Procedure Performed Yes Yes Yes -Type of Procedure Debridement Debridement Debridement -Clinical Debridement Subcutaneous Subcutaneous Subcutaneous -Post Debridement Size (cm) - Length 2.0 1.6 1.7 -Post Debridement Size (cm) - Width 4.8 4.6 4.3 -Post Debridement Size (cm) - Depth 1.8 2.0 1.6 -Total Square Cm 9.60 7.36 7.31 -Wound/Ulcer Outcome Not Healed Not Healed Not Healed -Ulcer Cleansing Rinsed/ Rinsed/ Rinsed/ Irrigated with Irrigated with Irrigated with Saline Saline Saline -Foul Odor after Cleansing No No No -Bioengineered Tissue No No No -Bleeding Controlled with Pressure Pressure Pressure -Treatment Response Procedure Procedure Procedure Tolerated Well Tolerated Well Tolerated Well Pain Scale: 0-10 Numeric Is Patient Pain Free? Yes Yes Yes 10/24/17 10:04 Wound Center Nurse 2 #4 sacrum -Time 10:06 -Correct Patient Yes -Correct Side, Site, Position Yes -Correct Procedure Yes -Procedure Performed Yes -Type of Procedure Debridement -Clinical Debridement Subcutaneous -Post Debridement Size (cm) - Length 1.5 -Post Debridement Size (cm) - Width 4.5 -Post Debridement Size (cm) - Depth 1.7 -Total Square Cm 6.75 -Wound/Ulcer Outcome Not Healed -Ulcer Cleansing Rinsed/ Irrigated with Saline -Foul Odor after Cleansing No -Bioengineered Tissue No -Bleeding Controlled with NA -Treatment Response Procedure Tolerated Well Pain Scale: 0-10 Numeric Is Patient Pain Free? Yes Wound debrided: Sacral Ulcer Wound Grade/Stage: Stage IV Type of Debridement: Excisional debridement Anesthesia Used: 4% Lidocaine Solution Depth: Down to and including healthy tissue, in the subcutaneous layer Percentage of wound debrided: 100 Instrument Used: 5mm curette Tissue Removed: Sllough and devitalized tissue Severity: Fat Layer Exposed Amount of bleeding with debridement: Mild Bleeding Controlled with: Pressure Patient tolerated procedure well Assessment/Plan Active Problems (Last Updated 08/09/17 @ 08:06 by Liz Baker) Morbid obesity with BMI of 40.0-44.9, adult (Acute) Pressure ulcer of sacral region, stage 4 (Chronic) Assessment: Stage IV sacral decubitus ulcer. Right heel stage III pressure ulcer. - Healed. Left heel stage III pressure ulcer - Healed. Plan: Stable ulcer. No new complaints. Debridement done as documented above. Procedure was well tolerated. Scheduled for her colovaginal fistula surgery on the 10 of December. Continue to pack wound daily with Fibracol, Guaze and Alleven over top. Continue offloading of lower extremities ( heels ). Continue increased protein in diet and protein supplements. Follow-up in 1 week. This note was generated with [employer] dictation software. It may contain incorrect words, spelling, and punctuation that were not noted in checking the note before signing.
--- NOTE | 2017-10-24 10:24 | PN.PCM_ITS ---
(1) Morbid obesity with BMI of 40.0-44.9, adult Status: Acute Current Visit: Yes Code(s): E66.01 - Morbid (severe) obesity due to excess calories; Z68.41 - Body mass index (BMI) 40.0-44.9, adult (2) Pressure ulcer of sacral region, stage 4 Status: Chronic Current Visit: Yes Code(s): L89.154 - Pressure ulcer of sacral region, stage 4 Type of Wound Date of Service: 10/24/17 Chief Complaint: Stage IV sacral pressure ulceration; bilateral unstageable necrotic heel pressure ulcerations History of Wound: Ms. Chavez is a 67-year-old female who has been seen here about a month ago and managed as a case of bilateral stage III pressure ulcers and stage IV sacral ulcer. Due to insurance issues she has not been seen here in over a month and was seen at another wound center however she returns here today for continued care. 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 She had intraoperative surgical debridement of her sacral wound and has since had a wound VAC. Wound has shown significant progress since initial episode. She currently has a wound VAC to her sacral wound and has been applying collagen to the bilateral heels. She denies chills, fever or otherwise feeling of unwell. Progress of Wound: Stable. No new complaints. - Physical Exam Vital Signs Temp Pulse Resp BP 98 F 87 16 138/74 H 10/24/17 09:35 10/24/17 09:35 10/24/17 09:35 10/24/17 09:35 General: Alert, Oriented x3, Cooperative, No apparent distress HEENT: Atraumatic, Normocephalic Oral: Moist Mucosa Neck: Supple Lungs: Normal air movement Cardiovascular: Regular rate Extremities: No cyanosis Skin: Ulcer/ Wound Wound Measurements and Assessment WC - Nurse 1 - General Ulcer Measurement Start: 10/04/17 09:07 Freq: Status: Active Protocol: Activity Type Activity Date Activity User E-Sign Co-Sign Detail Recorded Client Recorded Date Recorded By Document 10/24/17 09:35 [facility] [id number] 10/24/17 09:48 [facility] 10/24/17 09:35 Wound Center Nurse 1 [Ulcer Assessment] #4 sacrum -Combined with other wound No -Current Size (cm) - Length 1.4 -Current Size (cm) - Width 4.1 -Current Size (cm) - Depth 1.5 -Total Square Cm 5.74 -Photo Taken No -Epithelialization None Present -Tunneling No -Undermining/Tunneling Yes -Undermining/Tunneling Starts (O' 12 clock) -Undermining/Tunneling Ends (O'clock) 12 -Maximum Distance (cm) 3.4 -Circular Undermining Yes -Exudate Amt Medium (34-66%) -Exudate Type Serous -Wound Margin Distinct, Outline Attached -Granulation Amt Large (67-100%) -Granulation Quality [place] -Slough/Fibrin Yes -Necrosis Amt Small (1-33%) -Necrotic Tissue Type Adherent Slough -Texture (Amanda-wound Skin Appearance) Scarring -Moisture (Amanda-wound Skin Appearance Assessed ) -Color (Amanda-wound Skin Appearance) Assessed -Temperature (Amanda-wound Skin No Abnormality Appearance) (Pt Warm) -Tenderness on Palpation (Amanda-wound No Skin Appearance) -Ulcer Cleansing Rinsed/ Irrigated with Saline -Foul Odor after Cleansing No -Anesthetic Used 4% Lidocaine Solution WC - Nurse 2 - General Ulcer CM Notes Start: 10/04/17 09:07 Freq: Status: Active Protocol: Activity Type Activity Date Activity User E-Sign Co-Sign Detail Recorded Client Recorded Date Recorded By Document 10/24/17 10:04 DV [id number] 10/24/17 10:10 DV 10/24/17 10:04 Wound Center Nurse 2 [Procedure/Treatment] -Time 10:06 -Correct Patient Yes -Correct Side, Site, Position Yes -Correct Procedure Yes -Procedure Performed Yes -Type of Procedure Debridement -Clinical Debridement Subcutaneous -Post Debridement Size (cm) - Length 1.5 -Post Debridement Size (cm) - Width 4.5 -Post Debridement Size (cm) - Depth 1.7 -Total Square Cm 6.75 -Wound/Ulcer Outcome Not Healed -Ulcer Cleansing Rinsed/ Irrigated with Saline -Foul Odor after Cleansing No -Bioengineered Tissue No -Bleeding Controlled with NA -Treatment Response Procedure Tolerated Well [See Physician Procedure note for Specifics] Pain Scale: 0-10 Numeric [Pain] -Is Patient Pain Free? Yes Musculoskeletal: No Muscle Wasting Neurological: Cranial nerves II-XII grossly intact Psych/Mental Status: Normal Affect Debridement Note Post-Debridement Measurements/Treatment WC - Nurse 2 - General Ulcer CM Notes Start: 10/04/17 09:07 Freq: Status: Active Protocol: Activity Type Activity Date Activity User E-Sign Co-Sign Detail Recorded Client Recorded Date Recorded By Document 10/04/17 10:13 DV [id number] 10/04/17 10:15 DV Document 10/11/17 10:47 [place] [id number] 10/11/17 10:57 [place] Document 10/17/17 12:31 DV [id number] 10/17/17 12:32 DV Document 10/24/17 10:04 DV [id number] 10/24/17 10:10 DV 10/04/17 10/11/17 10/17/17 10:13 10:47 12:31 Wound Center Nurse 2 #4 sacrum -Time 10:13 10:48 12:31 -Correct Patient Yes Yes Yes -Correct Side, Site, Position Yes Yes Yes -Correct Procedure Yes Yes Yes -Procedure Performed Yes Yes Yes -Type of Procedure Debridement Debridement Debridement -Clinical Debridement Subcutaneous Subcutaneous Subcutaneous -Post Debridement Size (cm) - Length 2.0 1.6 1.7 -Post Debridement Size (cm) - Width 4.8 4.6 4.3 -Post Debridement Size (cm) - Depth 1.8 2.0 1.6 -Total Square Cm 9.60 7.36 7.31 -Wound/Ulcer Outcome Not Healed Not Healed Not Healed -Ulcer Cleansing Rinsed/ Rinsed/ Rinsed/ Irrigated with Irrigated with Irrigated with Saline Saline Saline -Foul Odor after Cleansing No No No -Bioengineered Tissue No No No -Bleeding Controlled with Pressure Pressure Pressure -Treatment Response Procedure Procedure Procedure Tolerated Well Tolerated Well Tolerated Well Pain Scale: 0-10 Numeric Is Patient Pain Free? Yes Yes Yes 10/24/17 10:04 Wound Center Nurse 2 #4 sacrum -Time 10:06 -Correct Patient Yes -Correct Side, Site, Position Yes -Correct Procedure Yes -Procedure Performed Yes -Type of Procedure Debridement -Clinical Debridement Subcutaneous -Post Debridement Size (cm) - Length 1.5 -Post Debridement Size (cm) - Width 4.5 -Post Debridement Size (cm) - Depth 1.7 -Total Square Cm 6.75 -Wound/Ulcer Outcome Not Healed -Ulcer Cleansing Rinsed/ Irrigated with Saline -Foul Odor after Cleansing No -Bioengineered Tissue No -Bleeding Controlled with NA -Treatment Response Procedure Tolerated Well Pain Scale: 0-10 Numeric Is Patient Pain Free? Yes Wound debrided: Sacral Ulcer Wound Grade/Stage: Stage IV Type of Debridement: Excisional debridement Anesthesia Used: 4% Lidocaine Solution Depth: Down to and including healthy tissue, in the subcutaneous layer Percentage of wound debrided: 100 Instrument Used: 5mm curette Tissue Removed: Sllough and devitalized tissue Severity: Fat Layer Exposed Amount of bleeding with debridement: Mild Bleeding Controlled with: Pressure Patient tolerated procedure well Assessment/Plan Active Problems (Last Updated 08/09/17 @ 08:06 by Liz Baker) Morbid obesity with BMI of 40.0-44.9, adult (Acute) Pressure ulcer of sacral region, stage 4 (Chronic) Assessment: Stage IV sacral decubitus ulcer. Right heel stage III pressure ulcer. - Healed. Left heel stage III pressure ulcer - Healed. Plan: Stable ulcer. No new complaints. Debridement done as documented above. Procedure was well tolerated. Scheduled for her colovaginal fistula surgery on the 10 of December. Continue to pack wound daily with Fibracol, Guaze and Alleven over top. Continue offloading of lower extremities ( heels ). Continue increased protein in diet and protein supplements. Follow-up in 1 week. This note was generated with [employer] dictation software. It may contain incorrect words, spelling, and punctuation that were not noted in checking the note before signing.
[2017-10-31 11:58] VITALS: BP 136/88; PULSE 78; RESP 16; TEMP 37; BMI 40.5
--- NOTE | 2017-10-31 13:08 | PN.PCM_ITS ---
(1) Morbid obesity with BMI of 40.0-44.9, adult Status: Acute Current Visit: Yes Code(s): E66.01 - Morbid (severe) obesity due to excess calories; Z68.41 - Body mass index (BMI) 40.0-44.9, adult (2) Pressure ulcer of sacral region, stage 4 Status: Chronic Current Visit: Yes Code(s): L89.154 - Pressure ulcer of sacral region, stage 4 Type of Wound Date of Service: 10/31/17 Chief Complaint: Stage IV sacral pressure ulceration; bilateral unstageable necrotic heel pressure ulcerations History of Wound: Ms. Chavez is a 67-year-old female who has been seen here about a month ago and managed as a case of bilateral stage III pressure ulcers and stage IV sacral ulcer. Due to insurance issues she has not been seen here in over a month and was seen at another wound center however she returns here today for continued care. 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 She had intraoperative surgical debridement of her sacral wound and has since had a wound VAC. Wound has shown significant progress since initial episode. She currently has a wound VAC to her sacral wound and has been applying collagen to the bilateral heels. She denies chills, fever or otherwise feeling of unwell. Progress of Wound: Stable. No new complaints. - Physical Exam Vital Signs Temp Pulse Resp BP 98.6 F 78 16 136/88 H 10/31/17 11:58 10/31/17 11:58 10/31/17 11:58 10/31/17 11:58 General: Alert, Oriented x3, Cooperative, No apparent distress HEENT: Atraumatic, Normocephalic Oral: Moist Mucosa Neck: Supple Lungs: Normal air movement Cardiovascular: Regular rate Abdomen: Non Tender, Obese Extremities: No cyanosis Skin: Ulcer/ Wound Wound Measurements and Assessment WC - Nurse 1 - General Ulcer Measurement Start: 10/04/17 09:07 Freq: Status: Active Protocol: Activity Type Activity Date Activity User E-Sign Co-Sign Detail Recorded Client Recorded Date Recorded By Document 10/31/17 11:58 [facility] [id number] 10/31/17 12:11 [facility] 10/31/17 11:58 Wound Center Nurse 1 [Ulcer Assessment] #4 sacrum -Combined with other wound No -Current Size (cm) - Length 1.4 -Current Size (cm) - Width 4.2 -Current Size (cm) - Depth 1.5 -Total Square Cm 5.88 -Photo Taken No -Epithelialization None Present -Tunneling No -Undermining/Tunneling Yes -Undermining/Tunneling Starts (O' 12 clock) -Undermining/Tunneling Ends (O'clock) 12 -Maximum Distance (cm) 3.3 -Circular Undermining No -Exudate Amt Large (67-100%) -Exudate Type Serous -Wound Margin Distinct, Outline Attached -Granulation Amt Large (67-100%) -Granulation Quality [place] -Slough/Fibrin Yes -Necrosis Amt Small (1-33%) -Necrotic Tissue Type Adherent Slough -Texture (Amanda-wound Skin Appearance) Scarring -Moisture (Amanda-wound Skin Appearance Assessed ) -Color (Amanda-wound Skin Appearance) Assessed -Temperature (Amanda-wound Skin No Abnormality Appearance) (Pt Warm) -Tenderness on Palpation (Amanda-wound Yes Skin Appearance) -Ulcer Cleansing Wound Cleanser -Foul Odor after Cleansing No -Anesthetic Used 4% Lidocaine Solution WC - Nurse 2 - General Ulcer CM Notes Start: 10/04/17 09:07 Freq: Status: Active Protocol: Activity Type Activity Date Activity User E-Sign Co-Sign Detail Recorded Client Recorded Date Recorded By Document 10/31/17 12:32 DV [id number] 10/31/17 12:33 DV 10/31/17 12:32 Wound Center Nurse 2 [Procedure/Treatment] -Time 12:32 -Correct Patient Yes -Correct Side, Site, Position Yes -Correct Procedure Yes -Procedure Performed Yes -Type of Procedure Debridement -Clinical Debridement Subcutaneous -Post Debridement Size (cm) - Length 1.6 -Post Debridement Size (cm) - Width 4.2 -Post Debridement Size (cm) - Depth 1.4 -Total Square Cm 6.72 -Wound/Ulcer Outcome Not Healed -Ulcer Cleansing Rinsed/ Irrigated with Saline -Foul Odor after Cleansing No -Bioengineered Tissue No -Bleeding Controlled with Pressure -Treatment Response Procedure Tolerated Well [See Physician Procedure note for Specifics] Pain Scale: 0-10 Numeric [Pain] -Is Patient Pain Free? Yes Musculoskeletal: No Muscle Wasting Neurological: Cranial nerves II-XII grossly intact Psych/Mental Status: Normal Affect Debridement Note Post-Debridement Measurements/Treatment WC - Nurse 2 - General Ulcer CM Notes Start: 10/04/17 09:07 Freq: Status: Active Protocol: Activity Type Activity Date Activity User E-Sign Co-Sign Detail Recorded Client Recorded Date Recorded By Document 10/04/17 10:13 DV [id number] 10/04/17 10:15 DV Document 10/11/17 10:47 [place] [id number] 10/11/17 10:57 [place] Document 10/17/17 12:31 DV [id number] 10/17/17 12:32 DV Document 10/24/17 10:04 DV [id number] 10/24/17 10:10 DV Document 10/31/17 12:32 DV [id number] 10/31/17 12:33 DV 10/04/17 10/11/17 10/17/17 10:13 10:47 12:31 Wound Center Nurse 2 #4 sacrum -Time 10:13 10:48 12:31 -Correct Patient Yes Yes Yes -Correct Side, Site, Position Yes Yes Yes -Correct Procedure Yes Yes Yes -Procedure Performed Yes Yes Yes -Type of Procedure Debridement Debridement Debridement -Clinical Debridement Subcutaneous Subcutaneous Subcutaneous -Post Debridement Size (cm) - Length 2.0 1.6 1.7 -Post Debridement Size (cm) - Width 4.8 4.6 4.3 -Post Debridement Size (cm) - Depth 1.8 2.0 1.6 -Total Square Cm 9.60 7.36 7.31 -Wound/Ulcer Outcome Not Healed Not Healed Not Healed -Ulcer Cleansing Rinsed/ Rinsed/ Rinsed/ Irrigated with Irrigated with Irrigated with Saline Saline Saline -Foul Odor after Cleansing No No No -Bioengineered Tissue No No No -Bleeding Controlled with Pressure Pressure Pressure -Treatment Response Procedure Procedure Procedure Tolerated Well Tolerated Well Tolerated Well Pain Scale: 0-10 Numeric Is Patient Pain Free? Yes Yes Yes 10/24/17 10/31/17 10:04 12:32 Wound Center Nurse 2 #4 sacrum -Time 10:06 12:32 -Correct Patient Yes Yes -Correct Side, Site, Position Yes Yes -Correct Procedure Yes Yes -Procedure Performed Yes Yes -Type of Procedure Debridement Debridement -Clinical Debridement Subcutaneous Subcutaneous -Post Debridement Size (cm) - Length 1.5 1.6 -Post Debridement Size (cm) - Width 4.5 4.2 -Post Debridement Size (cm) - Depth 1.7 1.4 -Total Square Cm 6.75 6.72 -Wound/Ulcer Outcome Not Healed Not Healed -Ulcer Cleansing Rinsed/ Rinsed/ Irrigated with Irrigated with Saline Saline -Foul Odor after Cleansing No No -Bioengineered Tissue No No -Bleeding Controlled with NA Pressure -Treatment Response Procedure Procedure Tolerated Well Tolerated Well Pain Scale: 0-10 Numeric Is Patient Pain Free? Yes Yes Wound debrided: Sacral ulcer Wound Grade/Stage: Stage IV Type of Debridement: Excisional debridement Anesthesia Used: 4% Lidocaine Solution Depth: Down to and including healthy tissue, in the subcutaneous layer Percentage of wound debrided: 100 Instrument Used: 5mm curette Tissue Removed: Slough and devitalized tissue Severity: Fat Layer Exposed Amount of bleeding with debridement: Mild Bleeding Controlled with: Pressure Patient tolerated procedure well Assessment/Plan Active Problems (Last Updated 08/09/17 @ 08:06 by Liz Baker) Morbid obesity with BMI of 40.0-44.9, adult (Acute) Pressure ulcer of sacral region, stage 4 (Chronic) Assessment: Stage IV sacral decubitus ulcer. Right heel stage III pressure ulcer. - Healed. Left heel stage III pressure ulcer - Healed. Plan: Stable ulcer. No new complaints. Debridement done as documented above. Procedure was well tolerated. Scheduled for her colovaginal fistula surgery on the 10 of December. Continue to pack wound every other day with Fibracol, Guaze and Alleven over top. Continue offloading of lower extremities ( heels ). Continue increased protein in diet and protein supplements. Follow-up in 1 week. This note was generated with [employer] dictation software. It may contain incorrect words, spelling, and punctuation that were not noted in checking the note before signing.
== END 2017-11-01 23:59 ==
LOC: WC 11:00
PROVIDERS: Family Provider Family Medicine Geriatric Medicine; PCP Family Medicine Geriatric Medicine; Visit Provider Internal Medicine
DX: L89.154 Pressure ulcer of sacral region, stage 4 (principal); E66.01 Morbid (severe) obesity due to excess calories; Z68.41 Body mass index [BMI] 40.0-44.9, adult
CPT/HCPCS: 11042

== ENCOUNTER 2017-11-21 11:00 | Outpatient (RCR) | payer MEDICARE, OTHER, SELFPAY ==
[2017-11-02 00:32] VITALS: BP 136/88; PULSE 78; RESP 16; TEMP 37; BMI 40.5
[2017-11-14 09:33] VITALS: BP 129/79; PULSE 103; RESP 16; TEMP 36.4; BMI 40.5
--- NOTE | 2017-11-14 19:15 | PN.PCM_ITS ---
(1) Pressure ulcer of sacral region, stage 4 Status: Chronic Current Visit: Yes Code(s): L89.154 - Pressure ulcer of sacral region, stage 4 (2) Colovaginal fistula Status: Acute Current Visit: No Code(s): N82.4 - Other female intestinal- genital tract fistulae Type of Wound Date of Service: 11/14/17 Chief Complaint: Stage IV sacral pressure ulceration; bilateral unstageable necrotic heel pressure ulcerations History of Wound: Ms. Chavez is a 67-year-old female who has been seen here about a month ago and managed as a case of bilateral stage III pressure ulcers and stage IV sacral ulcer. Due to insurance issues she has not been seen here in over a month and was seen at another wound center however she returns here today for continued care. 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 She had intraoperative surgical debridement of her sacral wound and has since had a wound VAC. Wound has shown significant progress since initial episode. She currently has a wound VAC to her sacral wound and has been applying collagen to the bilateral heels. She denies chills, fever or otherwise feeling of unwell. Progress of Wound: Stable. No new complaints. - Physical Exam Vital Signs Temp Pulse Resp BP 97.5 F L 103 H 16 129/79 H 11/14/17 09:33 11/14/17 09:33 11/14/17 09:33 11/14/17 09:33 General: Alert, Oriented x3, Cooperative, No apparent distress HEENT: Atraumatic Oral: Moist Mucosa Neck: Supple Lungs: Normal air movement Abdomen: Non Tender Skin: Ulcer/ Wound Wound Measurements and Assessment WC - Nurse 1 - General Ulcer Measurement Start: 11/14/17 09:33 Freq: Status: Active Protocol: Activity Type Activity Date Activity User E-Sign Co-Sign Detail Recorded Client Recorded Date Recorded By Document 11/14/17 09:33 [place] [id number] 11/14/17 09:43 [place] 11/14/17 09:33 Wound Center Nurse 1 [Ulcer Assessment] #4 sacrum -Combined with other wound No -Current Size (cm) - Length 1.5 -Current Size (cm) - Width 4.1 -Current Size (cm) - Depth 1.6 -Total Square Cm 6.15 -Date of Last Picture (Recall this 11/14/17 field) -Photo Taken Yes -Epithelialization None Present -Tunneling No -Undermining/Tunneling Yes -Undermining/Tunneling Starts (O' 12 clock) -Undermining/Tunneling Ends (O'clock) 12 -Maximum Distance (cm) 3.2 -Circular Undermining Yes -Classification - Thickness Full Thickness without Exposed Support Structure -Classification - Pressure Ulcer Stage 4 -Exudate Amt Large (67-100%) -Exudate Type Yellow/Green -Wound Margin Epibole -Granulation Amt None Present (0 %) -Granulation Quality N/A -Slough/Fibrin Yes -Necrosis Amt None Present (0 %) -Necrotic Tissue Type Adherent Slough -Structure Exposed Muscle -Texture (Amanda-wound Skin Appearance) No Abnormality -Moisture (Amanda-wound Skin Appearance No Abnormality ) -Color (Amanda-wound Skin Appearance) No Abnormality -Temperature (Amanda-wound Skin No Abnormality Appearance) (Pt Warm) -Tenderness on Palpation (Amanda-wound Yes: left side Skin Appearance) -Ulcer Cleansing Rinsed/ Irrigated with Saline -Foul Odor after Cleansing No -Anesthetic Used 4% Lidocaine Solution WC - Nurse 2 - General Ulcer CM Notes Start: 11/14/17 09:33 Freq: Status: Active Protocol: Activity Type Activity Date Activity User E-Sign Co-Sign Detail Recorded Client Recorded Date Recorded By Document 11/14/17 10:29 DV [id number] 11/14/17 10:30 DV 11/14/17 10:29 Wound Center Nurse 2 [Procedure/Treatment] -Time 10:29 -Correct Patient Yes -Correct Side, Site, Position Yes -Correct Procedure Yes -Procedure Performed Yes -Type of Procedure Debridement -Clinical Debridement Subcutaneous -Post Debridement Size (cm) - Length 1.8 -Post Debridement Size (cm) - Width 4.1 -Post Debridement Size (cm) - Depth 1 -Total Square Cm 7.38 -Wound/Ulcer Outcome Not Healed -Ulcer Cleansing Rinsed/ Irrigated with Saline -Foul Odor after Cleansing No -Bioengineered Tissue No -Bleeding Controlled with Pressure -Treatment Response Procedure Tolerated Well [See Physician Procedure note for Specifics] Pain Scale: 0-10 Numeric [Pain] -Is Patient Pain Free? Yes Musculoskeletal: No Muscle Wasting Psych/Mental Status: Normal Affect Debridement Note Post-Debridement Measurements/Treatment WC - Nurse 2 - General Ulcer CM Notes Start: 11/14/17 09:33 Freq: Status: Active Protocol: Activity Type Activity Date Activity User E-Sign Co-Sign Detail Recorded Client Recorded Date Recorded By Document 11/14/17 10:29 DV [id number] 11/14/17 10:30 DV 11/14/17 10:29 Wound Center Nurse 2 #4 sacrum -Time 10:29 -Correct Patient Yes -Correct Side, Site, Position Yes -Correct Procedure Yes -Procedure Performed Yes -Type of Procedure Debridement -Clinical Debridement Subcutaneous -Post Debridement Size (cm) - Length 1.8 -Post Debridement Size (cm) - Width 4.1 -Post Debridement Size (cm) - Depth 1 -Total Square Cm 7.38 -Wound/Ulcer Outcome Not Healed -Ulcer Cleansing Rinsed/ Irrigated with Saline -Foul Odor after Cleansing No -Bioengineered Tissue No -Bleeding Controlled with Pressure -Treatment Response Procedure Tolerated Well Pain Scale: 0-10 Numeric Is Patient Pain Free? Yes Wound debrided: Sacral ulcer Wound Grade/Stage: Stage IV Anesthesia Used: 4% Lidocaine Solution Depth: Down to and including healthy tissue, in the subcutaneous layer Percentage of wound debrided: 100 Instrument Used: 5mm curette Tissue Removed: Slough and devitalized tissue Severity: Fat Layer Exposed Amount of bleeding with debridement: Mild Bleeding Controlled with: Pressure Patient tolerated procedure well Assessment/Plan Active Problems (Last Updated 08/09/17 @ 08:06 by Liz Baker) Pressure ulcer of sacral region, stage 4 (Chronic) Assessment: Stage IV sacral decubitus ulcer. Right heel stage III pressure ulcer. - Healed. Left heel stage III pressure ulcer - Healed. Plan: Stable ulcer. No new complaints. Debridement done as documented above. Procedure was well tolerated. Scheduled for her colovaginal fistula surgery on the 10 of December. Continue to pack wound every other day with Fibracol, Guaze and Alleven over top. Continue offloading of lower extremities ( heels ). Continue increased protein in diet and protein supplements. Follow-up in 1 week. Advised to call with any questions or concerns. This note was generated with [employer] software. It may contain incorrect words, spelling, and punctuation that were not noted in checking the note before signing.
[2017-11-21 10:10] VITALS: BP 136/56; PULSE 84; RESP 18; TEMP 37; BMI 40.5
--- NOTE | 2017-11-21 11:07 | PCM.WC.PN ---
(1) Pressure ulcer of sacral region, stage 4 Status: Chronic Current Visit: Yes Code(s): L89.154 - Pressure ulcer of sacral region, stage 4 (2) Colovaginal fistula Status: Acute Current Visit: No Code(s): N82.4 - Other female intestinal-genital tract fistulae Type of Wound Date of Service: 11/21/17 Chief Complaint: Stage IV sacral pressure ulceration; bilateral unstageable necrotic heel pressure ulcerations History of Wound: Ms. Chavez is a 67-year-old female who has been seen here about a month ago and managed as a case of bilateral stage III pressure ulcers and stage IV sacral ulcer. Due to insurance issues she has not been seen here in over a month and was seen at another wound center however she returns here today for continued care. 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 She had intraoperative surgical debridement of her sacral wound and has since had a wound VAC. Wound has shown significant progress since initial episode. She currently has a wound VAC to her sacral wound and has been applying collagen to the bilateral heels. She denies chills, fever or otherwise feeling of unwell. Progress of Wound: Stable. No new complaints. - Physical Exam Vital Signs Temp Pulse Resp BP 98.6 F 84 18 136/56 H 11/21/17 10:10 11/21/17 10:10 11/21/17 10:10 11/21/17 10:10 General: Alert, Oriented x3, Cooperative, No apparent distress HEENT: Atraumatic Oral: Moist Mucosa Lungs: Normal air movement Abdomen: Non Tender Extremities: No cyanosis Skin: Ulcer/ Wound Wound Measurements and Assessment WC - Nurse 1 - General Ulcer Measurement Start: 11/14/17 09:33 Freq: Status: Active Protocol: Activity Type Activity Date Activity User E-Sign Co-Sign Detail Recorded Client Recorded Date Recorded By Document 11/21/17 10:10 [place]LE [id number] 11/21/17 10:32 [place]LE 11/21/17 10:10 Wound Center Nurse 1 [Ulcer Assessment] #4 sacrum -Combined with other wound No -Current Size (cm) - Length 1.6 -Current Size (cm) - Width 4.3 -Current Size (cm) - Depth 2.0 -Total Square Cm 6.88 -Date of Last Picture (Recall this 11/14/17 field) -Photo Taken No -Epithelialization None Present -Undermining/Tunneling Yes -Undermining/Tunneling Starts (O' 7 clock) -Undermining/Tunneling Ends (O'clock) 3 -Maximum Distance (cm) 3.6 -Circular Undermining No -Classification - Thickness Full Thickness without Exposed Support Structure -Classification - Pressure Ulcer Stage 4 -Change in Wound Grade/Stage No Query Text:If change please identify the Stage/Grade in the comment (ie. S2 G3) -Exudate Amt Large (67-100%) -Exudate Type Yellow/Green -Wound Margin Epibole -Granulation Amt None Present (0 %) -Granulation Quality N/A -Slough/Fibrin Yes -Necrotic Tissue Type Adherent Slough -Structure Exposed Muscle -Texture (Amanda-wound Skin Appearance) Friable -Moisture (Amanda-wound Skin Appearance No Abnormality ) -Color (Amanda-wound Skin Appearance) No Abnormality -Temperature (Amanda-wound Skin No Abnormality Appearance) (Pt Warm) -Tenderness on Palpation (Amanda-wound No Skin Appearance) -Ulcer Cleansing Rinsed/ Irrigated with Saline -Foul Odor after Cleansing No -Anesthetic Used 4% Lidocaine Solution WC - Nurse 2 - General Ulcer CM Notes Start: 11/14/17 09:33 Freq: Status: Active Protocol: Activity Type Activity Date Activity User E-Sign Co-Sign Detail Recorded Client Recorded Date Recorded By Document 11/21/17 11:01 [id number] 11/21/17 11:04 11/21/17 11:01 Wound Center Nurse 2 [Procedure/Treatment] -Time 11:02 -Correct Patient Yes -Correct Side, Site, Position Yes -Correct Procedure Yes -Procedure Performed Yes -Type of Procedure Debridement -Clinical Debridement Subcutaneous -Post Debridement Size (cm) - Length 1.8 -Post Debridement Size (cm) - Width 4.3 -Post Debridement Size (cm) - Depth 1.9 -Total Square Cm 7.74 -Wound/Ulcer Outcome Not Healed -Ulcer Cleansing Rinsed/ Irrigated with Saline -Foul Odor after Cleansing No -Bioengineered Tissue No -Bleeding Controlled with Pressure -Treatment Response Procedure Tolerated Well [See Physician Procedure note for Specifics] Pain Scale: 0-10 Numeric [Pain] -Is Patient Pain Free? Yes Musculoskeletal: No Muscle Wasting Neurological: Cranial nerves II-XII grossly intact Psych/Mental Status: Normal Affect Debridement Note Post-Debridement Measurements/Treatment WC - Nurse 2 - General Ulcer CM Notes Start: 11/14/17 09:33 Freq: Status: Active Protocol: Activity Type Activity Date Activity User E-Sign Co-Sign Detail Recorded Client Recorded Date Recorded By Document 11/14/17 10:29 DV [id number] 11/14/17 10:30 DV Document 11/21/17 11:01 [id number] 11/21/17 11:04 CS 11/14/17 11/21/17 10:29 11:01 Wound Center Nurse 2 #4 sacrum -Time 10:29 11:02 -Correct Patient Yes Yes -Correct Side, Site, Position Yes Yes -Correct Procedure Yes Yes -Procedure Performed Yes Yes -Type of Procedure Debridement Debridement -Clinical Debridement Subcutaneous Subcutaneous -Post Debridement Size (cm) - Length 1.8 1.8 -Post Debridement Size (cm) - Width 4.1 4.3 -Post Debridement Size (cm) - Depth 1 1.9 -Total Square Cm 7.38 7.74 -Wound/Ulcer Outcome Not Healed Not Healed -Ulcer Cleansing Rinsed/ Rinsed/ Irrigated with Irrigated with Saline Saline -Foul Odor after Cleansing No No -Bioengineered Tissue No No -Bleeding Controlled with Pressure Pressure -Treatment Response Procedure Procedure Tolerated Well Tolerated Well Pain Scale: 0-10 Numeric Is Patient Pain Free? Yes Yes Wound debrided: Sacral Ulcer Wound Grade/Stage: Stage IV Type of Debridement: Excisional debridement Anesthesia Used: 4% Lidocaine Solution Depth: Down to and including healthy tissue, in the subcutaneous layer Percentage of wound debrided: 100 Instrument Used: 5mm curette Tissue Removed: Biofilm, slough and devoitalized tissue Severity: Fat Layer Exposed Amount of bleeding with debridement: Mild Bleeding Controlled with: Pressure Patient tolerated procedure well Assessment/Plan Active Problems (Last Updated 08/09/17 @ 08:06 by Liz Baker) Pressure ulcer of sacral region, stage 4 (Chronic) Assessment: Stage IV sacral decubitus ulcer. Right heel stage III pressure ulcer. - Healed. Left heel stage III pressure ulcer - Healed. Plan: Stable ulcer. No new complaints. Debridement done as documented above. Procedure was well tolerated. Scheduled for her colovaginal fistula surgery on the 10 of December. Continue to pack wound every other day with Fibracol, Guaze and Alleven over top. Continue offloading of lower extremities ( heels ). Continue increased protein in diet and protein supplements. Follow-up in 3 weeks due to vacation and nurse visit. Has home halth visiting 3x weekly. Advised to call with any questions or concerns. This note was generated with [employer] dictation software. It may contain incorrect words, spelling, and punctuation that were not noted in checking the note before signing.
[2017-11-21 15:28] LABS: Prothrombin Time (Protime)PT. 13.3 SECONDS (11.7-14.9)
== END 2017-12-01 23:59 ==
LOC: WC 11:00
PROVIDERS: Family Provider Family Medicine Geriatric Medicine; PCP Family Medicine Geriatric Medicine; Visit Provider Internal Medicine
DX: L89.154 Pressure ulcer of sacral region, stage 4 (principal); N82.4 Other female intestinal-genital tract fistulae; H34.81 Central retinal vein occlusion; N39.0 Urinary tract infection, site not specified
CPT/HCPCS: 11042; 36415; 85610; 85730; 87086; 87088; 87186; 99212; G0463

== ENCOUNTER 2017-12-26 11:32 | Outpatient (RCR) | payer MEDICARE, OTHER, SELFPAY ==
[2017-12-02 00:32] VITALS: BP 136/56; PULSE 84; RESP 18; TEMP 37; BMI 40.5
[2017-12-26 11:41] VITALS: BP 115/68; PULSE 90; RESP 18; TEMP 37; BMI 40.5
--- NOTE | 2017-12-26 12:06 | WC ---
3 sites from laproscopic surgery is well approximated
--- NOTE | 2017-12-26 12:08 | WC ---
genadyne vac on lower mid abd wound set at 125 continuous
--- NOTE | 2017-12-26 19:38 | PCM.WC.HP ---
(1) Non-healing surgical wound Status: Acute Current Visit: Yes Code(s): T81.89XA - Other complications of procedures, not elsewhere classified, initial encounter (2) Colovaginal fistula Status: Acute Current Visit: No Code(s): N82.4 - Other female intestinal-genital tract fistulae (3) Pressure ulcer of sacral region, stage 4 Status: Chronic Current Visit: No Code(s): L89.154 - Pressure ulcer of sacral region, stage 4 History of Present Illness Date of Service: 12/26/17 Chief Complaint: Stage IV sacral pressure ulceration; bilateral unstageable necrotic heel pressure ulcerations History of Wound: Ms. Chavez is a 67-year-old female who is well known to me in the wound center and was last seen here over. Most recently has been managed at the [facility] for a colovaginal fistula. Surgery was in 10 December. Status post surgery she had been in a custodial. She has had routine dressings to her sacral decubitus ulcer and had a wound VAC to her abdominal surgical ulcer. She denies any new complaints at this time. Past Medical History Past Medical History: Chronic Problems (Last Updated 08/09/17 @ 08:06 by Liz Baker) Pressure ulcer of right heel, stage 3 (Chronic) Pressure ulcer of left heel, stage 3 (Chronic) GERD (gastroesophageal reflux disease) (Chronic) Depression (Chronic) Hypothyroidism (Chronic) Pressure ulcer, heel, right, unstageable (Chronic) Pressure ulcer, heel, left, unstageable (Chronic) Pressure ulcer of sacral region, stage 4 (Chronic) Neuropathy (Chronic) Hypertension (Chronic) GERD (gastroesophageal reflux disease) (Chronic) Morbid obesity with BMI of 40.0-44.9, adult (Chronic) Surgical History: - - As previously undergone hysterectomy. She is a Ab0. Surgical debridement of her sacral pressure ulceration was performed on April 12, 2017, at [facility]. Allergies/Adverse Reactions: Allergies bee venom protein (honey bee) Allergy (Verified 08/09/17 08:07) Angioedema Home Medications: Ambulatory Orders Medication Instructions Recorded Levothyroxine [Synthroid] 25 mcg PO DAILY 03/02/17 Ensure Enlive 120 ml PO 4X/DAY 03/16/17 cholecalciferol (vitamin D3) 50,000 unit PO QMONTH 08/02/17 50,000 unit capsule Ascorbic Acid 500 mg PO BID 08/21/17 Methenamine Hippurate 1 tab PO BID 08/21/17 Potassium Chloride [K-Dur] 40 meq PO DAILY 12/26/17 - Family History Maternal Family History: Family History (Last Reviewed 08/09/17 @ 07:40 by Liz Baker) Father Myocardial infarction Cancer Brother Heart disease Mother COPD (chronic obstructive pulmonary disease) Unknown, - - Patient's mother at the age of 82 with a history of chronic obstructive pulmonary disease. Paternal Family History: Family History (Last Reviewed 08/09/17 @ 07:40 by Liz Baker) Father Myocardial infarction Cancer Brother Heart disease Mother COPD (chronic obstructive pulmonary disease) Unknown, - - Patient's father at age of 79 with history of lung cancer and myocardial infarction. Smoking Status: Former smoker Tobacco Use: Non-smoker Review of Systems Constitutional: Denies: Anorexia, Malaise Eyes: Denies: Blurred vision, Pain, Redness HEENT: Denies: Difficulty Swallowing Cardiovascular: Denies: Chest Pain, Chest Tightness Respiratory: Denies: Cough, Shortness of Breath Gastrointestinal: Denies: Hematemesis, Vomiting Genitourinary: Denies: Hematuria Skin: Denies: Jaundice - Physical Exam Vital Signs Temp Pulse Resp BP 98.6 F 90 18 115/68 12/26/17 11:41 12/26/17 11:41 12/26/17 11:41 12/26/17 11:41 General: Alert, Oriented x3, Cooperative, No apparent distress HEENT: Atraumatic Oral: Moist Mucosa Neck: Supple Lungs: Normal air movement Cardiovascular: Regular rate, Regular Rhythm, Normal S1, Normal S2 Abdomen: Soft, Obese Skin: Ulcer/ Wound Wound Measurements and Assessment WC - Nurse 1 - General Ulcer Measurement Start: 12/26/17 11:35 Freq: Status: Active Protocol: Activity Type Activity Date Activity User E-Sign Co-Sign Detail Recorded Client Recorded Date Recorded By Document 12/26/17 11:41 RB [id number] 12/26/17 12:08 RB 12/26/17 11:41 Wound Center Nurse 1 [Ulcer Assessment] #6 lower mid abd -Combined with other wound No -Current Size (cm) - Length 9 -Current Size (cm) - Width 6 -Current Size (cm) - Depth 3 -Total Square Cm 54 -Photo Taken Yes -Tunneling No -Undermining/Tunneling No -Circular Undermining No -Classification - Thickness Full Thickness without Exposed Support Structure -Exudate Amt Medium (34-66%) -Exudate Type Serosanguineous -Wound Margin Distinct, Outline Attached -Granulation Amt Large (67-100%) -Granulation Quality [place] Red -Slough/Fibrin Yes -Necrosis Amt Small (1-33%) -Necrotic Tissue Type Adherent Slough -Structure Exposed N/A -Texture (Amanda-wound Skin Appearance) Assessed Excoriation -Moisture (Amnada-wound Skin Appearance Assessed ) -Color (Amanda-wound Skin Appearance) Assessed -Temperature (Amanda-wound Skin No Abnormality Appearance) (Pt Warm) -Tenderness on Palpation (Amanda-wound No Skin Appearance) -Ulcer Cleansing Wound Cleanser -Foul Odor after Cleansing No -Anesthetic Used 4% Lidocaine Solution #5 sacrum -Combined with other wound No -Current Size (cm) - Length 1.5 -Current Size (cm) - Width 3.5 -Current Size (cm) - Depth 1.7 -Total Square Cm 5.25 -Photo Taken Yes -Tunneling No -Undermining/Tunneling Yes -Undermining/Tunneling Starts (O' 9 clock) -Undermining/Tunneling Ends (O'clock) 2 -Maximum Distance (cm) 2.7 -Circular Undermining No -Classification - Pressure Ulcer Stage 4 -Exudate Amt Medium (34-66%) -Exudate Type Serosanguineous -Wound Margin Thickened & Rolled Under -Granulation Amt Medium (34-66%) -Granulation Quality [place] -Slough/Fibrin Yes -Necrosis Amt Medium (34-66%) -Necrotic Tissue Type Adherent Slough -Structure Exposed N/A -Texture (Amanda-wound Skin Appearance) Assessed -Moisture (Amanda-wound Skin Appearance Assessed ) -Color (Amanda-wound Skin Appearance) Assessed -Temperature (Amanda-wound Skin No Abnormality Appearance) (Pt Warm) -Tenderness on Palpation (Amanda-wound No Skin Appearance) -Ulcer Cleansing Wound Cleanser -Foul Odor after Cleansing No -Anesthetic Used 4% Lidocaine Solution 12/26/17 12:06 Wound Center by Miriam Rawls 3 sites from laproscopic surgery is well approximated Initialized on 12/26/17 12:06 - END OF NOTE WC - Nurse 2 - General Ulcer CM Notes Start: 12/26/17 11:35 Freq: Status: Active Protocol: Activity Type Activity Date Activity User E-Sign Co-Sign Detail Recorded Client Recorded Date Recorded By Document 12/26/17 12:34 [id number] 12/26/17 12:43 12/26/17 12:34 Wound Center Nurse 2 [Procedure/Treatment] #6 lower mid abd -Time 12:34 -Correct Patient Yes -Correct Side, Site, Position Yes -Correct Procedure Yes -Procedure Performed Yes -Type of Procedure Debridement -Clinical Debridement Subcutaneous -Post Debridement Size (cm) - Length 10.2 -Post Debridement Size (cm) - Width 6.6 -Post Debridement Size (cm) - Depth 3.5 -Total Square Cm 67.32 -Wound/Ulcer Outcome Not Healed -Ulcer Cleansing Rinsed/ Irrigated with Saline -Foul Odor after Cleansing No -Bioengineered Tissue No -Bleeding Controlled with NA -Treatment Response Procedure Tolerated Well #5 sacrum -Time 12:36 -Correct Patient Yes -Correct Side, Site, Position Yes -Correct Procedure Yes -Procedure Performed Yes -Type of Procedure Debridement -Clinical Debridement Subcutaneous -Post Debridement Size (cm) - Length 1.7 -Post Debridement Size (cm) - Width 3.8 -Post Debridement Size (cm) - Depth 1.8 -Total Square Cm 6.46 -Wound/Ulcer Outcome Not Healed -Ulcer Cleansing Rinsed/ Irrigated with Saline -Foul Odor after Cleansing No -Bioengineered Tissue No -Bleeding Controlled with Pressure -Treatment Response Procedure Tolerated Well [See Physician Procedure note for Specifics] Pain Scale: 0-10 Numeric [Pain] -Is Patient Pain Free? Yes Musculoskeletal: No Muscle Wasting Neurological: Cranial nerves II-XII grossly intact Psych/Mental Status: Normal Affect Debridement Note Post-Debridement Measurements/Treatment WC - Nurse 2 - General Ulcer CM Notes Start: 12/26/17 11:35 Freq: Status: Active Protocol: Activity Type Activity Date Activity User E-Sign Co-Sign Detail Recorded Client Recorded Date Recorded By Document 12/26/17 12:34 [id number] 12/26/17 12:43 12/26/17 12:34 Wound Center Nurse 2 #6 lower mid abd -Time 12:34 -Correct Patient Yes -Correct Side, Site, Position Yes -Correct Procedure Yes -Procedure Performed Yes -Type of Procedure Debridement -Clinical Debridement Subcutaneous -Post Debridement Size (cm) - Length 10.2 -Post Debridement Size (cm) - Width 6.6 -Post Debridement Size (cm) - Depth 3.5 -Total Square Cm 67.32 -Wound/Ulcer Outcome Not Healed -Ulcer Cleansing Rinsed/ Irrigated with Saline -Foul Odor after Cleansing No -Bioengineered Tissue No -Bleeding Controlled with NA -Treatment Response Procedure Tolerated Well #5 sacrum -Time 12:36 -Correct Patient Yes -Correct Side, Site, Position Yes -Correct Procedure Yes -Procedure Performed Yes -Type of Procedure Debridement -Clinical Debridement Subcutaneous -Post Debridement Size (cm) - Length 1.7 -Post Debridement Size (cm) - Width 3.8 -Post Debridement Size (cm) - Depth 1.8 -Total Square Cm 6.46 -Wound/Ulcer Outcome Not Healed -Ulcer Cleansing Rinsed/ Irrigated with Saline -Foul Odor after Cleansing No -Bioengineered Tissue No -Bleeding Controlled with Pressure -Treatment Response Procedure Tolerated Well Pain Scale: 0-10 Numeric Is Patient Pain Free? Yes Wound debrided: Lower abdominal wound Type of Debridement: Excisional debridement Anesthesia Used: 4% Lidocaine Solution Depth: Down to and including healthy tissue, in the subcutaneous layer Percentage of wound debrided: 100 Instrument Used: 7mm curette Tissue Removed: Slough and devitalized tissue Severity: Fat Layer Exposed Amount of bleeding with debridement: Mild Bleeding Controlled with: Pressure Patient tolerated procedure well - Additional Wound Wound debrided: Sacral Ulcer Wound Grade/Stage: Stage IV Type of Debridement: Excisional debridement Anesthesia Used: 4% Lidocaine Solution Depth: Down to and including healthy tissue, in the subcutaneous layer Percentage of wound debrided: 100 Instrument Used: 5mm curette Tissue Removed: Slough and devitalized tissue Severity: Fat Layer Exposed Amount of bleeding with debridement: Mild Bleeding Controlled with: Pressure Patient tolerated procedure: Patient tolerated procedure well Assessment/Plan Active Problems (Last Updated 08/09/17 @ 08:06 by Liz Baker) Non-healing surgical wound (Acute) Assessment: Stage IV sacral decubitus ulcer. Right heel stage III pressure ulcer. - Healed. Left heel stage III pressure ulcer - Healed. Post surgical abdominal wound Plan: Debridement done as documented above. Procedure was well-tolerated. Continue Fibracol to sacral ulcer with Optiform over top. Change daily to every other day. Continue wound VAC to postsurgical abdominal wound at 125 mmHg. Continue increased protein intake. Follow-up in 1 week. Advised to call with any questions or concerns. This note was generated with [employer] dictation software. It may contain incorrect words, spelling, and punctuation that were not noted in checking the note before signing.
--- NOTE | 2017-12-26 19:41 | HP.PCM_ITS ---
(1) Non-healing surgical wound Status: Acute Current Visit: Yes Code(s): T81.89XA - Other complications of procedures, not elsewhere classified, initial encounter (2) Colovaginal fistula Status: Acute Current Visit: No Code(s): N82.4 - Other female intestinal- genital tract fistulae (3) Pressure ulcer of sacral region, stage 4 Status: Chronic Current Visit: No Code(s): L89.154 - Pressure ulcer of sacral region, stage 4 History of Present Illness Date of Service: 12/26/17 Chief Complaint: Stage IV sacral pressure ulceration; bilateral unstageable necrotic heel pressure ulcerations History of Wound: Ms. Chavez is a 67-year-old female who is well known to me in the wound center and was last seen here over. Most recently has been managed at the [facility] for a colovaginal fistula. Surgery was in 10 December. Status post surgery she had been in a shelter. She has had routine dressings to her sacral decubitus ulcer and had a wound VAC to her abdominal surgical ulcer. She denies any new complaints at this time. Past Medical History Past Medical History: Chronic Problems (Last Updated 08/09/17 @ 08:06 by Liz Baker) Pressure ulcer of right heel, stage 3 (Chronic) Pressure ulcer of left heel, stage 3 (Chronic) GERD (gastroesophageal reflux disease) (Chronic) Depression (Chronic) Hypothyroidism (Chronic) Pressure ulcer, heel, right, unstageable (Chronic) Pressure ulcer, heel, left, unstageable (Chronic) Pressure ulcer of sacral region, stage 4 (Chronic) Neuropathy (Chronic) Hypertension (Chronic) GERD (gastroesophageal reflux disease) (Chronic) Morbid obesity with BMI of 40.0-44.9, adult (Chronic) Surgical History: - - As previously undergone hysterectomy. She is a Ab0. Surgical debridement of her sacral pressure ulceration was performed on April 12, 2017, at [facility]. Allergies/Adverse Reactions: Allergies bee venom protein (honey bee) Allergy (Verified 08/09/17 08:07) Angioedema Home Medications: Ambulatory Orders Medication Instructions Recorded Levothyroxine [Synthroid] 25 mcg PO DAILY 03/02/17 Ensure Enlive 120 ml PO 4X/DAY 03/16/17 cholecalciferol (vitamin D3) 50,000 unit PO QMONTH 08/02/17 50,000 unit capsule Ascorbic Acid 500 mg PO BID 08/21/17 Methenamine Hippurate 1 tab PO BID 08/21/17 Potassium Chloride [K-Dur] 40 meq PO DAILY 12/26/17 - Family History Maternal Family History: Family History (Last Reviewed 08/09/17 @ 07:40 by Liz Baker) Father Myocardial infarction Cancer Brother Heart disease Mother COPD (chronic obstructive pulmonary disease) Unknown, - - Patient's mother at the age of 82 with a history of chronic obstructive pulmonary disease. Paternal Family History: Family History (Last Reviewed 08/09/17 @ 07:40 by Liz Baker) Father Myocardial infarction Cancer Brother Heart disease Mother COPD (chronic obstructive pulmonary disease) Unknown, - - Patient's father at age of 79 with history of lung cancer and myocardial infarction. Smoking Status: Former smoker Tobacco Use: Non-smoker Review of Systems Constitutional: Denies: Anorexia, Malaise Eyes: Denies: Blurred vision, Pain, Redness HEENT: Denies: Difficulty Swallowing Cardiovascular: Denies: Chest Pain, Chest Tightness Respiratory: Denies: Cough, Shortness of Breath Gastrointestinal: Denies: Hematemesis, Vomiting Genitourinary: Denies: Hematuria Skin: Denies: Jaundice - Physical Exam Vital Signs Temp Pulse Resp BP 98.6 F 90 18 115/68 12/26/17 11:41 12/26/17 11:41 12/26/17 11:41 12/26/17 11:41 General: Alert, Oriented x3, Cooperative, No apparent distress HEENT: Atraumatic Oral: Moist Mucosa Neck: Supple Lungs: Normal air movement Cardiovascular: Regular rate, Regular Rhythm, Normal S1, Normal S2 Abdomen: Soft, Obese Skin: Ulcer/ Wound Wound Measurements and Assessment WC - Nurse 1 - General Ulcer Measurement Start: 12/26/17 11:35 Freq: Status: Active Protocol: Activity Type Activity Date Activity User E-Sign Co-Sign Detail Recorded Client Recorded Date Recorded By Document 12/26/17 11:41 RB [id number] 12/26/17 12:08 RB 12/26/17 11:41 Wound Center Nurse 1 [Ulcer Assessment] #6 lower mid abd -Combined with other wound No -Current Size (cm) - Length 9 -Current Size (cm) - Width 6 -Current Size (cm) - Depth 3 -Total Square Cm 54 -Photo Taken Yes -Tunneling No -Undermining/Tunneling No -Circular Undermining No -Classification - Thickness Full Thickness without Exposed Support Structure -Exudate Amt Medium (34-66%) -Exudate Type Serosanguineous -Wound Margin Distinct, Outline Attached -Granulation Amt Large (67-100%) -Granulation Quality [place] Red -Slough/Fibrin Yes -Necrosis Amt Small (1-33%) -Necrotic Tissue Type Adherent Slough -Structure Exposed N/A -Texture (Amanda-wound Skin Appearance) Assessed Excoriation -Moisture (Amanda-wound Skin Appearance Assessed ) -Color (Amanda-wound Skin Appearance) Assessed -Temperature (Amanda-wound Skin No Abnormality Appearance) (Pt Warm) -Tenderness on Palpation (Amanda-wound No Skin Appearance) -Ulcer Cleansing Wound Cleanser -Foul Odor after Cleansing No -Anesthetic Used 4% Lidocaine Solution #5 sacrum -Combined with other wound No -Current Size (cm) - Length 1.5 -Current Size (cm) - Width 3.5 -Current Size (cm) - Depth 1.7 -Total Square Cm 5.25 -Photo Taken Yes -Tunneling No -Undermining/Tunneling Yes -Undermining/Tunneling Starts (O' 9 clock) -Undermining/Tunneling Ends (O'clock) 2 -Maximum Distance (cm) 2.7 -Circular Undermining No -Classification - Pressure Ulcer Stage 4 -Exudate Amt Medium (34-66%) -Exudate Type Serosanguineous -Wound Margin Thickened & Rolled Under -Granulation Amt Medium (34-66%) -Granulation Quality [place] -Slough/Fibrin Yes -Necrosis Amt Medium (34-66%) -Necrotic Tissue Type Adherent Slough -Structure Exposed N/A -Texture (Amanda-wound Skin Appearance) Assessed -Moisture (Amanda-wound Skin Appearance Assessed ) -Color (Amanda-wound Skin Appearance) Assessed -Temperature (Amanda-wound Skin No Abnormality Appearance) (Pt Warm) -Tenderness on Palpation (Amanda-wound No Skin Appearance) -Ulcer Cleansing Wound Cleanser -Foul Odor after Cleansing No -Anesthetic Used 4% Lidocaine Solution 12/26/17 12:06 Wound Center by Miriam Rawls 3 sites from laproscopic surgery is well approximated Initialized on 12/26/17 12:06 - END OF NOTE WC - Nurse 2 - General Ulcer CM Notes Start: 12/26/17 11:35 Freq: Status: Active Protocol: Activity Type Activity Date Activity User E-Sign Co-Sign Detail Recorded Client Recorded Date Recorded By Document 12/26/17 12:34 [id number] 12/26/17 12:43 12/26/17 12:34 Wound Center Nurse 2 [Procedure/Treatment] #6 lower mid abd -Time 12:34 -Correct Patient Yes -Correct Side, Site, Position Yes -Correct Procedure Yes -Procedure Performed Yes -Type of Procedure Debridement -Clinical Debridement Subcutaneous -Post Debridement Size (cm) - Length 10.2 -Post Debridement Size (cm) - Width 6.6 -Post Debridement Size (cm) - Depth 3.5 -Total Square Cm 67.32 -Wound/Ulcer Outcome Not Healed -Ulcer Cleansing Rinsed/ Irrigated with Saline -Foul Odor after Cleansing No -Bioengineered Tissue No -Bleeding Controlled with NA -Treatment Response Procedure Tolerated Well #5 sacrum -Time 12:36 -Correct Patient Yes -Correct Side, Site, Position Yes -Correct Procedure Yes -Procedure Performed Yes -Type of Procedure Debridement -Clinical Debridement Subcutaneous -Post Debridement Size (cm) - Length 1.7 -Post Debridement Size (cm) - Width 3.8 -Post Debridement Size (cm) - Depth 1.8 -Total Square Cm 6.46 -Wound/Ulcer Outcome Not Healed -Ulcer Cleansing Rinsed/ Irrigated with Saline -Foul Odor after Cleansing No -Bioengineered Tissue No -Bleeding Controlled with Pressure -Treatment Response Procedure Tolerated Well [See Physician Procedure note for Specifics] Pain Scale: 0-10 Numeric [Pain] -Is Patient Pain Free? Yes Musculoskeletal: No Muscle Wasting Neurological: Cranial nerves II-XII grossly intact Psych/Mental Status: Normal Affect Debridement Note Post-Debridement Measurements/Treatment WC - Nurse 2 - General Ulcer CM Notes Start: 12/26/17 11:35 Freq: Status: Active Protocol: Activity Type Activity Date Activity User E-Sign Co-Sign Detail Recorded Client Recorded Date Recorded By Document 12/26/17 12:34 [id number] 12/26/17 12:43 12/26/17 12:34 Wound Center Nurse 2 #6 lower mid abd -Time 12:34 -Correct Patient Yes -Correct Side, Site, Position Yes -Correct Procedure Yes -Procedure Performed Yes -Type of Procedure Debridement -Clinical Debridement Subcutaneous -Post Debridement Size (cm) - Length 10.2 -Post Debridement Size (cm) - Width 6.6 -Post Debridement Size (cm) - Depth 3.5 -Total Square Cm 67.32 -Wound/Ulcer Outcome Not Healed -Ulcer Cleansing Rinsed/ Irrigated with Saline -Foul Odor after Cleansing No -Bioengineered Tissue No -Bleeding Controlled with NA -Treatment Response Procedure Tolerated Well #5 sacrum -Time 12:36 -Correct Patient Yes -Correct Side, Site, Position Yes -Correct Procedure Yes -Procedure Performed Yes -Type of Procedure Debridement -Clinical Debridement Subcutaneous -Post Debridement Size (cm) - Length 1.7 -Post Debridement Size (cm) - Width 3.8 -Post Debridement Size (cm) - Depth 1.8 -Total Square Cm 6.46 -Wound/Ulcer Outcome Not Healed -Ulcer Cleansing Rinsed/ Irrigated with Saline -Foul Odor after Cleansing No -Bioengineered Tissue No -Bleeding Controlled with Pressure -Treatment Response Procedure Tolerated Well Pain Scale: 0-10 Numeric Is Patient Pain Free? Yes Wound debrided: Lower abdominal wound Type of Debridement: Excisional debridement Anesthesia Used: 4% Lidocaine Solution Depth: Down to and including healthy tissue, in the subcutaneous layer Percentage of wound debrided: 100 Instrument Used: 7mm curette Tissue Removed: Slough and devitalized tissue Severity: Fat Layer Exposed Amount of bleeding with debridement: Mild Bleeding Controlled with: Pressure Patient tolerated procedure well - Additional Wound Wound debrided: Sacral Ulcer Wound Grade/Stage: Stage IV Type of Debridement: Excisional debridement Anesthesia Used: 4% Lidocaine Solution Depth: Down to and including healthy tissue, in the subcutaneous layer Percentage of wound debrided: 100 Instrument Used: 5mm curette Tissue Removed: Slough and devitalized tissue Severity: Fat Layer Exposed Amount of bleeding with debridement: Mild Bleeding Controlled with: Pressure Patient tolerated procedure: Patient tolerated procedure well Assessment/Plan Active Problems (Last Updated 08/09/17 @ 08:06 by Liz Baker) Non-healing surgical wound (Acute) Assessment: Stage IV sacral decubitus ulcer. Right heel stage III pressure ulcer. - Healed. Left heel stage III pressure ulcer - Healed. Post surgical abdominal wound Plan: Debridement done as documented above. Procedure was well-tolerated. Continue Fibracol to sacral ulcer with Optiform over top. Change daily to every other day. Continue wound VAC to postsurgical abdominal wound at 125 mmHg. Continue increased protein intake. Follow-up in 1 week. Advised to call with any questions or concerns. This note was generated with [employer] dictation software. It may contain incorrect words, spelling, and punctuation that were not noted in checking the note before signing.
== END 2018-01-01 23:59 ==
LOC: WC 11:32
PROVIDERS: Family Provider Family Medicine Geriatric Medicine; PCP Family Medicine Geriatric Medicine; Visit Provider Internal Medicine
DX: L89.154 Pressure ulcer of sacral region, stage 4 (principal); K21.9 Gastro-esophageal reflux disease without esophagitis; N82.4 Other female intestinal-genital tract fistulae; I10 Essential (primary) hypertension; E03.9 Hypothyroidism, unspecified; Z79.899 Other long term (current) drug therapy; E66.01 Morbid (severe) obesity due to excess calories; Z68.41 Body mass index [BMI] 40.0-44.9, adult; Z71.3 Dietary counseling and surveillance; Z87.891 Personal history of nicotine dependence; T81.89XA Other complications of procedures, not elsewhere classified, initial encounter
CPT/HCPCS: 11042; 11045; 97606; 99213; G0463

== ENCOUNTER 2018-01-30 09:00 | Outpatient (RCR) | payer MEDICARE, OTHER, SELFPAY ==
[2018-01-02 00:35] VITALS: BP 115/68; PULSE 90; RESP 18; TEMP 37; BMI 40.5
[2018-01-02 12:24] VITALS: BP 123/83; PULSE 101; RESP 16; TEMP 37.2; BMI 40.5
--- NOTE | 2018-01-02 12:42 | PCM.WC.PN ---
(1) Colovaginal fistula Status: Acute Current Visit: Yes Code(s): N82.4 - Other female intestinal-genital tract fistulae (2) Non-healing surgical wound Status: Acute Current Visit: Yes Code(s): T81.89XA - Other complications of procedures, not elsewhere classified, initial encounter (3) Pressure ulcer of sacral region, stage 4 Status: Chronic Current Visit: Yes Code(s): L89.154 - Pressure ulcer of sacral region, stage 4 Type of Wound Date of Service: 01/02/18 Chief Complaint: Stage IV sacral pressure ulceration; bilateral unstageable necrotic heel pressure ulcerations History of Wound: Ms. Chavez is a 67-year-old female who is well known to me in the wound center and was last seen here over. Most recently has been managed at the [facility] for a colovaginal fistula. Surgery was in 10 December. Status post surgery she had been in a prison. She has had routine dressings to her sacral decubitus ulcer and had a wound VAC to her abdominal surgical ulcer. She denies any new complaints at this time. Progress of Wound: Stable. No new complaints. - Physical Exam Vital Signs Temp Pulse Resp BP 98.9 F 101 H 16 123/83 H 01/02/18 12:24 01/02/18 12:24 01/02/18 12:24 01/02/18 12:24 General: Alert, Oriented x3, Cooperative, No apparent distress HEENT: Atraumatic Oral: Moist Mucosa Neck: Supple Lungs: Normal air movement Abdomen: Obese Extremities: No cyanosis Skin: Ulcer/ Wound Wound Measurements and Assessment WC - Nurse 1 - General Ulcer Measurement Start: 01/02/18 11:50 Freq: Status: Active Protocol: Activity Type Activity Date Activity User E-Sign Co-Sign Detail Recorded Client Recorded Date Recorded By Document 01/02/18 12:24 [id number] 01/02/18 12:28 01/02/18 12:24 Wound Center Nurse 1 [Ulcer Assessment] #6 lower mid abd -Combined with other wound No -Current Size (cm) - Length 8.9 -Current Size (cm) - Width 5.1 -Current Size (cm) - Depth 0.1 -Total Square Cm 45.39 -Photo Taken No -Epithelialization None Present -Tunneling No -Undermining/Tunneling No -Circular Undermining No -Exudate Amt Medium (34-66%) -Exudate Type Serosanguineous -Wound Margin Distinct, Outline Attached -Granulation Quality [place] Red -Slough/Fibrin Yes -Necrosis Amt None Present (0 %) -Necrotic Tissue Type Adherent Slough -Structure Exposed None/Limited to Skin Breakdown -Texture (Amanda-wound Skin Appearance) No Abnormality Assessed -Moisture (Amanda-wound Skin Appearance No Abnormality ) Assessed -Color (Amanda-wound Skin Appearance) No Abnormality Assessed -Temperature (Amanda-wound Skin No Abnormality Appearance) (Pt Warm) -Tenderness on Palpation (Amanda-wound Yes Skin Appearance) -Ulcer Cleansing Wound Cleanser -Foul Odor after Cleansing No -Anesthetic Used 4% Lidocaine Solution #5 sacrum -Combined with other wound No -Current Size (cm) - Length 1.9 -Current Size (cm) - Width 3.4 -Current Size (cm) - Depth 3.3 -Total Square Cm 6.46 -Photo Taken No -Epithelialization None Present -Tunneling No -Undermining/Tunneling No -Undermining/Tunneling Starts (O' 5 clock) -Undermining/Tunneling Ends (O'clock) 7 -Maximum Distance (cm) 3.4 -Circular Undermining No -Exudate Amt Large (67-100%) -Exudate Type Serosanguineous -Wound Margin Distinct, Outline Attached -Granulation Amt None Present (0 %) -Granulation Quality N/A -Slough/Fibrin No -Necrosis Amt None Present (0 %) -Necrotic Tissue Type Adherent Slough -Structure Exposed None/Limited to Skin Breakdown -Texture (Amanda-wound Skin Appearance) No Abnormality Assessed -Moisture (Amanda-wound Skin Appearance No Abnormality ) Assessed -Color (Amanda-wound Skin Appearance) No Abnormality Assessed -Temperature (Amanda-wound Skin No Abnormality Appearance) (Pt Warm) -Tenderness on Palpation (Amanda-wound No Skin Appearance) -Ulcer Cleansing Wound Cleanser -Foul Odor after Cleansing No -Anesthetic Used 4% Lidocaine Solution [Edema Assessment] -Lower Limb Edema Present NA WC - Nurse 2 - General Ulcer CM Notes Start: 01/02/18 11:50 Freq: Status: Active Protocol: Activity Type Activity Date Activity User E-Sign Co-Sign Detail Recorded Client Recorded Date Recorded By Document 01/02/18 12:28 MW [id number] 01/02/18 12:38 MW 01/02/18 12:28 Wound Center Nurse 2 [Procedure/Treatment] #6 lower mid abd -Time 12:29 -Correct Patient Yes -Correct Side, Site, Position Yes -Correct Procedure Yes -Procedure Performed Yes -Type of Procedure Debridement -Clinical Debridement Subcutaneous -Post Debridement Size (cm) - Length 9.0 -Post Debridement Size (cm) - Width 5.0 -Post Debridement Size (cm) - Depth 0.9 -Total Square Cm 45.00 -Wound/Ulcer Outcome Not Healed -Ulcer Cleansing Rinsed/ Irrigated with Saline -Foul Odor after Cleansing No -Bioengineered Tissue No -Bleeding Controlled with Pressure -Treatment Response Procedure Tolerated Well #5 sacrum -Time 12:30 -Correct Patient Yes -Correct Side, Site, Position Yes -Correct Procedure Yes -Procedure Performed Yes -Type of Procedure Debridement -Clinical Debridement Subcutaneous -Post Debridement Size (cm) - Length 1.6 -Post Debridement Size (cm) - Width 3.7 -Post Debridement Size (cm) - Depth 2.0 -Total Square Cm 5.92 -Wound/Ulcer Outcome Not Healed -Ulcer Cleansing Rinsed/ Irrigated with Saline -Foul Odor after Cleansing No -Bioengineered Tissue No -Bleeding Controlled with Pressure -Treatment Response Procedure Tolerated Well [See Physician Procedure note for Specifics] Pain Scale: 0-10 Numeric [Pain] -Is Patient Pain Free? Yes Musculoskeletal: No Muscle Wasting Neurological: Cranial nerves II-XII grossly intact Psych/Mental Status: Normal Affect Debridement Note Post-Debridement Measurements/Treatment WC - Nurse 2 - General Ulcer CM Notes Start: 01/02/18 11:50 Freq: Status: Active Protocol: Activity Type Activity Date Activity User E-Sign Co-Sign Detail Recorded Client Recorded Date Recorded By Document 01/02/18 12:28 MW [id number] 01/02/18 12:38 MW 01/02/18 12:28 Wound Center Nurse 2 #6 lower mid abd -Time 12:29 -Correct Patient Yes -Correct Side, Site, Position Yes -Correct Procedure Yes -Procedure Performed Yes -Type of Procedure Debridement -Clinical Debridement Subcutaneous -Post Debridement Size (cm) - Length 9.0 -Post Debridement Size (cm) - Width 5.0 -Post Debridement Size (cm) - Depth 0.9 -Total Square Cm 45.00 -Wound/Ulcer Outcome Not Healed -Ulcer Cleansing Rinsed/ Irrigated with Saline -Foul Odor after Cleansing No -Bioengineered Tissue No -Bleeding Controlled with Pressure -Treatment Response Procedure Tolerated Well #5 sacrum -Time 12:30 -Correct Patient Yes -Correct Side, Site, Position Yes -Correct Procedure Yes -Procedure Performed Yes -Type of Procedure Debridement -Clinical Debridement Subcutaneous -Post Debridement Size (cm) - Length 1.6 -Post Debridement Size (cm) - Width 3.7 -Post Debridement Size (cm) - Depth 2.0 -Total Square Cm 5.92 -Wound/Ulcer Outcome Not Healed -Ulcer Cleansing Rinsed/ Irrigated with Saline -Foul Odor after Cleansing No -Bioengineered Tissue No -Bleeding Controlled with Pressure -Treatment Response Procedure Tolerated Well Pain Scale: 0-10 Numeric Is Patient Pain Free? Yes Wound debrided: Midline abdominal wound. Type of Debridement: Excisional debridement Anesthesia Used: 4% Lidocaine Solution Depth: Down to and including healthy tissue, in the subcutaneous layer Percentage of wound debrided: 100 Instrument Used: 7mm curette Tissue Removed: Slough andd evitalized tissue Severity: Fat Layer Exposed Amount of bleeding with debridement: Mild Bleeding Controlled with: Pressure Patient tolerated procedure well - Additional Wound Wound debrided: Sacral ulcer Wound Grade/Stage: Stage IV Type of Debridement: Excisional debridement Anesthesia Used: 4% Lidocaine Solution Depth: Down to and including healthy tissue, in the subcutaneous layer Percentage of wound debrided: 100 Instrument Used: 7mm curette Tissue Removed: Slough and devitalized tissue Severity: Fat Layer Exposed Amount of bleeding with debridement: Mild Bleeding Controlled with: Pressure Patient tolerated procedure: Patient tolerated procedure well Assessment/Plan Active Problems (Last Updated 08/09/17 @ 08:06 by Liz Baker) Colovaginal fistula (Acute) Non-healing surgical wound (Acute) Pressure ulcer of sacral region, stage 4 (Chronic) Assessment: Stage IV sacral decubitus ulcer. Right heel stage III pressure ulcer. - Healed. Left heel stage III pressure ulcer - Healed. Post surgical abdominal wound Plan: Debridement done as documented above. Procedure was well-tolerated. Some discharge noted from the scaral ulcer. Cultures taken. Continue Fibracol to sacral ulcer with Optiform over top. Change daily to every other day. Continue wound VAC to postsurgical abdominal wound at [address] adaptioc directly on wound before black foam. Continue increased protein intake. Follow-up in 1 week. Advised to call with any questions or concerns. This note was generated with [employer] dictation software. It may contain incorrect words, spelling, and punctuation that were not noted in checking the note before signing.
--- NOTE | 2018-01-02 12:46 | PN.PCM_ITS ---
(1) Colovaginal fistula Status: Acute Current Visit: Yes Code(s): N82.4 - Other female intestinal- genital tract fistulae (2) Non-healing surgical wound Status: Acute Current Visit: Yes Code(s): T81.89XA - Other complications of procedures, not elsewhere classified, initial encounter (3) Pressure ulcer of sacral region, stage 4 Status: Chronic Current Visit: Yes Code(s): L89.154 - Pressure ulcer of sacral region, stage 4 Type of Wound Date of Service: 01/02/18 Chief Complaint: Stage IV sacral pressure ulceration; bilateral unstageable necrotic heel pressure ulcerations History of Wound: Ms. Chavez is a 67-year-old female who is well known to me in the wound center and was last seen here over. Most recently has been managed at the [facility] for a colovaginal fistula. Surgery was in 10 December. Status post surgery she had been in a jail. She has had routine dressings to her sacral decubitus ulcer and had a wound VAC to her abdominal surgical ulcer. She denies any new complaints at this time. Progress of Wound: Stable. No new complaints. - Physical Exam Vital Signs Temp Pulse Resp BP 98.9 F 101 H 16 123/83 H 01/02/18 12:24 01/02/18 12:24 01/02/18 12:24 01/02/18 12:24 General: Alert, Oriented x3, Cooperative, No apparent distress HEENT: Atraumatic Oral: Moist Mucosa Neck: Supple Lungs: Normal air movement Abdomen: Obese Extremities: No cyanosis Skin: Ulcer/ Wound Wound Measurements and Assessment WC - Nurse 1 - General Ulcer Measurement Start: 01/02/18 11:50 Freq: Status: Active Protocol: Activity Type Activity Date Activity User E-Sign Co-Sign Detail Recorded Client Recorded Date Recorded By Document 01/02/18 12:24 [id number] 01/02/18 12:28 01/02/18 12:24 Wound Center Nurse 1 [Ulcer Assessment] #6 lower mid abd -Combined with other wound No -Current Size (cm) - Length 8.9 -Current Size (cm) - Width 5.1 -Current Size (cm) - Depth 0.1 -Total Square Cm 45.39 -Photo Taken No -Epithelialization None Present -Tunneling No -Undermining/Tunneling No -Circular Undermining No -Exudate Amt Medium (34-66%) -Exudate Type Serosanguineous -Wound Margin Distinct, Outline Attached -Granulation Quality [place] Red -Slough/Fibrin Yes -Necrosis Amt None Present (0 %) -Necrotic Tissue Type Adherent Slough -Structure Exposed None/Limited to Skin Breakdown -Texture (Amanda-wound Skin Appearance) No Abnormality Assessed -Moisture (Amanda-wound Skin Appearance No Abnormality ) Assessed -Color (Amanda-wound Skin Appearance) No Abnormality Assessed -Temperature (Amanda-wound Skin No Abnormality Appearance) (Pt Warm) -Tenderness on Palpation (Amanda-wound Yes Skin Appearance) -Ulcer Cleansing Wound Cleanser -Foul Odor after Cleansing No -Anesthetic Used 4% Lidocaine Solution #5 sacrum -Combined with other wound No -Current Size (cm) - Length 1.9 -Current Size (cm) - Width 3.4 -Current Size (cm) - Depth 3.3 -Total Square Cm 6.46 -Photo Taken No -Epithelialization None Present -Tunneling No -Undermining/Tunneling No -Undermining/Tunneling Starts (O' 5 clock) -Undermining/Tunneling Ends (O'clock) 7 -Maximum Distance (cm) 3.4 -Circular Undermining No -Exudate Amt Large (67-100%) -Exudate Type Serosanguineous -Wound Margin Distinct, Outline Attached -Granulation Amt None Present (0 %) -Granulation Quality N/A -Slough/Fibrin No -Necrosis Amt None Present (0 %) -Necrotic Tissue Type Adherent Slough -Structure Exposed None/Limited to Skin Breakdown -Texture (Amanda-wound Skin Appearance) No Abnormality Assessed -Moisture (Amanda-wound Skin Appearance No Abnormality ) Assessed -Color (Amanda-wound Skin Appearance) No Abnormality Assessed -Temperature (Amanda-wound Skin No Abnormality Appearance) (Pt Warm) -Tenderness on Palpation (Amanda-wound No Skin Appearance) -Ulcer Cleansing Wound Cleanser -Foul Odor after Cleansing No -Anesthetic Used 4% Lidocaine Solution [Edema Assessment] -Lower Limb Edema Present NA WC - Nurse 2 - General Ulcer CM Notes Start: 01/02/18 11:50 Freq: Status: Active Protocol: Activity Type Activity Date Activity User E-Sign Co-Sign Detail Recorded Client Recorded Date Recorded By Document 01/02/18 12:28 MW [id number] 01/02/18 12:38 MW 01/02/18 12:28 Wound Center Nurse 2 [Procedure/Treatment] #6 lower mid abd -Time 12:29 -Correct Patient Yes -Correct Side, Site, Position Yes -Correct Procedure Yes -Procedure Performed Yes -Type of Procedure Debridement -Clinical Debridement Subcutaneous -Post Debridement Size (cm) - Length 9.0 -Post Debridement Size (cm) - Width 5.0 -Post Debridement Size (cm) - Depth 0.9 -Total Square Cm 45.00 -Wound/Ulcer Outcome Not Healed -Ulcer Cleansing Rinsed/ Irrigated with Saline -Foul Odor after Cleansing No -Bioengineered Tissue No -Bleeding Controlled with Pressure -Treatment Response Procedure Tolerated Well #5 sacrum -Time 12:30 -Correct Patient Yes -Correct Side, Site, Position Yes -Correct Procedure Yes -Procedure Performed Yes -Type of Procedure Debridement -Clinical Debridement Subcutaneous -Post Debridement Size (cm) - Length 1.6 -Post Debridement Size (cm) - Width 3.7 -Post Debridement Size (cm) - Depth 2.0 -Total Square Cm 5.92 -Wound/Ulcer Outcome Not Healed -Ulcer Cleansing Rinsed/ Irrigated with Saline -Foul Odor after Cleansing No -Bioengineered Tissue No -Bleeding Controlled with Pressure -Treatment Response Procedure Tolerated Well [See Physician Procedure note for Specifics] Pain Scale: 0-10 Numeric [Pain] -Is Patient Pain Free? Yes Musculoskeletal: No Muscle Wasting Neurological: Cranial nerves II-XII grossly intact Psych/Mental Status: Normal Affect Debridement Note Post-Debridement Measurements/Treatment WC - Nurse 2 - General Ulcer CM Notes Start: 01/02/18 11:50 Freq: Status: Active Protocol: Activity Type Activity Date Activity User E-Sign Co-Sign Detail Recorded Client Recorded Date Recorded By Document 01/02/18 12:28 MW [id number] 01/02/18 12:38 MW 01/02/18 12:28 Wound Center Nurse 2 #6 lower mid abd -Time 12:29 -Correct Patient Yes -Correct Side, Site, Position Yes -Correct Procedure Yes -Procedure Performed Yes -Type of Procedure Debridement -Clinical Debridement Subcutaneous -Post Debridement Size (cm) - Length 9.0 -Post Debridement Size (cm) - Width 5.0 -Post Debridement Size (cm) - Depth 0.9 -Total Square Cm 45.00 -Wound/Ulcer Outcome Not Healed -Ulcer Cleansing Rinsed/ Irrigated with Saline -Foul Odor after Cleansing No -Bioengineered Tissue No -Bleeding Controlled with Pressure -Treatment Response Procedure Tolerated Well #5 sacrum -Time 12:30 -Correct Patient Yes -Correct Side, Site, Position Yes -Correct Procedure Yes -Procedure Performed Yes -Type of Procedure Debridement -Clinical Debridement Subcutaneous -Post Debridement Size (cm) - Length 1.6 -Post Debridement Size (cm) - Width 3.7 -Post Debridement Size (cm) - Depth 2.0 -Total Square Cm 5.92 -Wound/Ulcer Outcome Not Healed -Ulcer Cleansing Rinsed/ Irrigated with Saline -Foul Odor after Cleansing No -Bioengineered Tissue No -Bleeding Controlled with Pressure -Treatment Response Procedure Tolerated Well Pain Scale: 0-10 Numeric Is Patient Pain Free? Yes Wound debrided: Midline abdominal wound. Type of Debridement: Excisional debridement Anesthesia Used: 4% Lidocaine Solution Depth: Down to and including healthy tissue, in the subcutaneous layer Percentage of wound debrided: 100 Instrument Used: 7mm curette Tissue Removed: Slough andd evitalized tissue Severity: Fat Layer Exposed Amount of bleeding with debridement: Mild Bleeding Controlled with: Pressure Patient tolerated procedure well - Additional Wound Wound debrided: Sacral ulcer Wound Grade/Stage: Stage IV Type of Debridement: Excisional debridement Anesthesia Used: 4% Lidocaine Solution Depth: Down to and including healthy tissue, in the subcutaneous layer Percentage of wound debrided: 100 Instrument Used: 7mm curette Tissue Removed: Slough and devitalized tissue Severity: Fat Layer Exposed Amount of bleeding with debridement: Mild Bleeding Controlled with: Pressure Patient tolerated procedure: Patient tolerated procedure well Assessment/Plan Active Problems (Last Updated 08/09/17 @ 08:06 by Liz Baker) Colovaginal fistula (Acute) Non-healing surgical wound (Acute) Pressure ulcer of sacral region, stage 4 (Chronic) Assessment: Stage IV sacral decubitus ulcer. Right heel stage III pressure ulcer. - Healed. Left heel stage III pressure ulcer - Healed. Post surgical abdominal wound Plan: Debridement done as documented above. Procedure was well-tolerated. Some discharge noted from the scaral ulcer. Cultures taken. Continue Fibracol to sacral ulcer with Optiform over top. Change daily to every other day. Continue wound VAC to postsurgical abdominal wound at [address]ioc directly on wound before black foam. Continue increased protein intake. Follow -up in 1 week. Advised to call with any questions or concerns. This note was generated with [employer], a division of [employer] dictation software. It may contain incorrect words, spelling, and punctuation that were not noted in checking the note before signing.
[2018-01-09 09:05] VITALS: BP 138/79; PULSE 102; RESP 18; TEMP 35.9; BMI 40.5
--- NOTE | 2018-01-09 11:10 | PCM.WC.PN ---
(1) Colovaginal fistula Status: Acute Current Visit: Yes Code(s): N82.4 - Other female intestinal-genital tract fistulae (2) Non-healing surgical wound Status: Acute Current Visit: Yes Code(s): T81.89XA - Other complications of procedures, not elsewhere classified, initial encounter (3) Pressure ulcer of sacral region, stage 4 Status: Chronic Current Visit: Yes Code(s): L89.154 - Pressure ulcer of sacral region, stage 4 Type of Wound Date of Service: 01/09/18 Chief Complaint: Stage IV sacral pressure ulceration; bilateral unstageable necrotic heel pressure ulcerations History of Wound: Ms. Chavez is a 67-year-old female who is well known to me in the wound center and was last seen here over. Most recently has been managed at the [facility] for a colovaginal fistula. Surgery was in 10 December. Status post surgery she had been in a [facility]. She has had routine dressings to her sacral decubitus ulcer and had a wound VAC to her abdominal surgical ulcer. She denies any new complaints at this time. Progress of Wound: Stable. No new complaints. - Physical Exam Vital Signs Temp Pulse Resp BP 96.6 F L 102 H 18 138/79 H 01/09/18 09:05 01/09/18 09:05 01/09/18 09:05 01/09/18 09:05 General: Alert, Oriented x3, Cooperative, No apparent distress HEENT: Atraumatic Oral: Moist Mucosa Neck: Supple Lungs: Normal air movement Abdomen: Soft, Obese Extremities: No cyanosis Skin: Ulcer/ Wound Wound Measurements and Assessment - Nurse 1 - General Ulcer Measurement Start: 01/02/18 11:50 Freq: Status: Active Protocol: Activity Type Activity Date Activity User E-Sign Co-Sign Detail Recorded Client Recorded Date Recorded By Document 01/09/18 09:05 [id number] 01/09/18 09:07 01/09/18 09:05 Wound Center Nurse 1 [Ulcer Assessment] #6 lower mid abd -Combined with other wound No -Current Size (cm) - Length 8.9 -Current Size (cm) - Width 3.8 -Current Size (cm) - Depth 0.1 -Total Square Cm 33.82 -Photo Taken No -Epithelialization None Present -Tunneling No -Undermining/Tunneling No -Circular Undermining No -Exudate Amt Large (67-100%) -Exudate Type Serosanguineous -Wound Margin Distinct, Outline Attached -Granulation Amt Large (67-100%) -Granulation Quality Red -Slough/Fibrin Yes -Necrosis Amt None Present (0 %) -Necrotic Tissue Type Adherent Slough -Structure Exposed None/Limited to Skin Breakdown -Texture (Amanda-wound Skin Appearance) No Abnormality Assessed -Moisture (Amanda-wound Skin Appearance No Abnormality ) Assessed -Color (Amanda-wound Skin Appearance) No Abnormality Assessed -Temperature (Amanda-wound Skin No Abnormality Appearance) (Pt Warm) -Tenderness on Palpation (Amanda-wound Yes Skin Appearance) -Ulcer Cleansing Wound Cleanser -Foul Odor after Cleansing No -Anesthetic Used 4% Lidocaine Solution #5 sacrum -Combined with other wound No -Current Size (cm) - Length 1.8 -Current Size (cm) - Width 3.0 -Current Size (cm) - Depth 3.5 -Total Square Cm 5.40 -Photo Taken No -Tunneling No -Undermining/Tunneling No -Circular Undermining No -Exudate Amt Medium (34-66%) -Exudate Type Yellow/Green -Wound Margin Distinct, Outline Attached -Granulation Amt None Present (0 %) -Granulation Quality N/A -Slough/Fibrin Yes -Necrosis Amt None Present (0 %) -Necrotic Tissue Type Adherent Slough -Structure Exposed None/Limited to Skin Breakdown -Texture (Amanda-wound Skin Appearance) No Abnormality Assessed -Moisture (Amanda-wound Skin Appearance No Abnormality ) Assessed -Color (Amanda-wound Skin Appearance) No Abnormality Assessed -Temperature (Amanda-wound Skin No Abnormality Appearance) (Pt Warm) -Tenderness on Palpation (Amanda-wound No Skin Appearance) -Ulcer Cleansing Wound Cleanser -Foul Odor after Cleansing No -Anesthetic Used 4% Lidocaine Solution [Edema Assessment] -Lower Limb Edema Present NA WC - Nurse 2 - General Ulcer CM Notes Start: 01/02/18 11:50 Freq: Status: Active Protocol: Activity Type Activity Date Activity User E-Sign Co-Sign Detail Recorded Client Recorded Date Recorded By Document 01/09/18 09:37 [email or web address] [id number] 01/09/18 09:47 [place] 01/09/18 09:37 Wound Center Nurse 2 [Procedure/Treatment] #6 lower mid abd -Time 09:37 -Correct Patient Yes -Correct Side, Site, Position Yes -Correct Procedure Yes -Procedure Performed Yes -Type of Procedure Debridement -Clinical Debridement Subcutaneous -Post Debridement Size (cm) - Length 5.9 -Post Debridement Size (cm) - Width 4.1 -Post Debridement Size (cm) - Depth 0.2 -Total Square Cm 24.19 -Wound/Ulcer Outcome Not Healed -Ulcer Cleansing Rinsed/ Irrigated with Saline -Foul Odor after Cleansing No -Bioengineered Tissue No -Bleeding Controlled with NA -Treatment Response Procedure Tolerated Well #5 sacrum -Time 09:38 -Correct Patient Yes -Correct Side, Site, Position Yes -Correct Procedure Yes -Procedure Performed Yes -Type of Procedure Debridement -Clinical Debridement Subcutaneous -Post Debridement Size (cm) - Length 1.5 -Post Debridement Size (cm) - Width 3.5 -Post Debridement Size (cm) - Depth 2.0 -Total Square Cm 5.25 -Wound/Ulcer Outcome Not Healed -Ulcer Cleansing Rinsed/ Irrigated with Saline -Foul Odor after Cleansing No -Bioengineered Tissue No -Bleeding Controlled with NA -Treatment Response Procedure Tolerated Well [See Physician Procedure note for Specifics] Pain Scale: 0-10 Numeric [Pain] -Is Patient Pain Free? Yes Musculoskeletal: No Muscle Wasting Neurological: Cranial nerves II-XII grossly intact Psych/Mental Status: Normal Affect Debridement Note Post-Debridement Measurements/Treatment WC - Nurse 2 - General Ulcer CM Notes Start: 01/02/18 11:50 Freq: Status: Active Protocol: Activity Type Activity Date Activity User E-Sign Co-Sign Detail Recorded Client Recorded Date Recorded By Document 01/02/18 12:28 MW [id number] 01/02/18 12:38 MW Document 01/09/18 09:37 JS [id number] 01/09/18 09:47 JS 01/02/18 01/09/18 12:28 09:37 Wound Center Nurse 2 #6 lower mid abd -Time 12:29 09:37 -Correct Patient Yes Yes -Correct Side, Site, Position Yes Yes -Correct Procedure Yes Yes -Procedure Performed Yes Yes -Type of Procedure Debridement Debridement -Clinical Debridement Subcutaneous Subcutaneous -Post Debridement Size (cm) - Length 9.0 5.9 -Post Debridement Size (cm) - Width 5.0 4.1 -Post Debridement Size (cm) - Depth 0.9 0.2 -Total Square Cm 45.00 24.19 -Wound/Ulcer Outcome Not Healed Not Healed -Ulcer Cleansing Rinsed/ Rinsed/ Irrigated with Irrigated with Saline Saline -Foul Odor after Cleansing No No -Bioengineered Tissue No No -Bleeding Controlled with Pressure NA -Treatment Response Procedure Procedure Tolerated Well Tolerated Well #5 sacrum -Time 12:30 09:38 -Correct Patient Yes Yes -Correct Side, Site, Position Yes Yes -Correct Procedure Yes Yes -Procedure Performed Yes Yes -Type of Procedure Debridement Debridement -Clinical Debridement Subcutaneous Subcutaneous -Post Debridement Size (cm) - Length 1.6 1.5 -Post Debridement Size (cm) - Width 3.7 3.5 -Post Debridement Size (cm) - Depth 2.0 2.0 -Total Square Cm 5.92 5.25 -Wound/Ulcer Outcome Not Healed Not Healed -Ulcer Cleansing Rinsed/ Rinsed/ Irrigated with Irrigated with Saline Saline -Foul Odor after Cleansing No No -Bioengineered Tissue No No -Bleeding Controlled with Pressure NA -Treatment Response Procedure Procedure Tolerated Well Tolerated Well Pain Scale: 0-10 Numeric Is Patient Pain Free? Yes Yes Wound debrided: Abdominal wound Wound Grade/Stage: Stage III Type of Debridement: Excisional debridement Anesthesia Used: 4% Lidocaine Solution Depth: Down to and including healthy tissue, in the subcutaneous layer Percentage of wound debrided: 100 Instrument Used: 5mm curette Tissue Removed: Devitalized tissue and biofilm Severity: Fat Layer Exposed Amount of bleeding with debridement: Mild Bleeding Controlled with: Pressure Patient tolerated procedure well - Additional Wound Wound debrided: Sacral Ulcer Wound Grade/Stage: Stage IV Type of Debridement: Excisional debridement Anesthesia Used: 4% Lidocaine Solution Depth: Down to and including healthy tissue, in the subcutaneous layer Percentage of wound debrided: 100 Instrument Used: 5mm curette Tissue Removed: Slouh and devitalized tissue Severity: Fat Layer Exposed Amount of bleeding with debridement: Mild Bleeding Controlled with: Pressure Patient tolerated procedure: Patient tolerated procedure well Assessment/Plan Active Problems (Last Updated 08/09/17 @ 08:06 by Liz Baker) Colovaginal fistula (Acute) Non-healing surgical wound (Acute) Pressure ulcer of sacral region, stage 4 (Chronic) Assessment: Stage IV sacral decubitus ulcer. Right heel stage III pressure ulcer. - Healed. Left heel stage III pressure ulcer - Healed. Post surgical abdominal wound Plan: Debridement done as documented above. Procedure was well-tolerated. Culture done at last visit with minimal growth, possible contaminant. Will old off abx for now. Continue Fibracol to sacral ulcer with Optiform over top. Change daily to every other day. Continue wound VAC to postsurgical abdominal wound at [address] directly on wound before black foam. Continue increased protein intake. Follow-up in 1 week. Advised to call with any questions or concerns. This note was generated with [employer] dictation software. It may contain incorrect words, spelling, and punctuation that were not noted in checking the note before signing.
--- NOTE | 2018-01-09 11:14 | PN.PCM_ITS ---
(1) Colovaginal fistula Status: Acute Current Visit: Yes Code(s): N82.4 - Other female intestinal- genital tract fistulae (2) Non-healing surgical wound Status: Acute Current Visit: Yes Code(s): T81.89XA - Other complications of procedures, not elsewhere classified, initial encounter (3) Pressure ulcer of sacral region, stage 4 Status: Chronic Current Visit: Yes Code(s): L89.154 - Pressure ulcer of sacral region, stage 4 Type of Wound Date of Service: 01/09/18 Chief Complaint: Stage IV sacral pressure ulceration; bilateral unstageable necrotic heel pressure ulcerations History of Wound: Ms. Chavez is a 67-year-old female who is well known to me in the wound center and was last seen here over. Most recently has been managed at the [facility] for a colovaginal fistula. Surgery was in 10 December. Status post surgery she had been in a group home. She has had routine dressings to her sacral decubitus ulcer and had a wound VAC to her abdominal surgical ulcer. She denies any new complaints at this time. Progress of Wound: Stable. No new complaints. - Physical Exam Vital Signs Temp Pulse Resp BP 96.6 F L 102 H 18 138/79 H 01/09/18 09:05 01/09/18 09:05 01/09/18 09:05 01/09/18 09:05 General: Alert, Oriented x3, Cooperative, No apparent distress HEENT: Atraumatic Oral: Moist Mucosa Neck: Supple Lungs: Normal air movement Abdomen: Soft, Obese Extremities: No cyanosis Skin: Ulcer/ Wound Wound Measurements and Assessment - Nurse 1 - General Ulcer Measurement Start: 01/02/18 11:50 Freq: Status: Active Protocol: Activity Type Activity Date Activity User E-Sign Co-Sign Detail Recorded Client Recorded Date Recorded By Document 01/09/18 09:05 [id number] 01/09/18 09:07 01/09/18 09:05 Wound Center Nurse 1 [Ulcer Assessment] #6 lower mid abd -Combined with other wound No -Current Size (cm) - Length 8.9 -Current Size (cm) - Width 3.8 -Current Size (cm) - Depth 0.1 -Total Square Cm 33.82 -Photo Taken No -Epithelialization None Present -Tunneling No -Undermining/Tunneling No -Circular Undermining No -Exudate Amt Large (67-100%) -Exudate Type Serosanguineous -Wound Margin Distinct, Outline Attached -Granulation Amt Large (67-100%) -Granulation Quality Red -Slough/Fibrin Yes -Necrosis Amt None Present (0 %) -Necrotic Tissue Type Adherent Slough -Structure Exposed None/Limited to Skin Breakdown -Texture (Amanda-wound Skin Appearance) No Abnormality Assessed -Moisture (Amanda-wound Skin Appearance No Abnormality ) Assessed -Color (Amanda-wound Skin Appearance) No Abnormality Assessed -Temperature (Amanda-wound Skin No Abnormality Appearance) (Pt Warm) -Tenderness on Palpation (Amanda-wound Yes Skin Appearance) -Ulcer Cleansing Wound Cleanser -Foul Odor after Cleansing No -Anesthetic Used 4% Lidocaine Solution #5 sacrum -Combined with other wound No -Current Size (cm) - Length 1.8 -Current Size (cm) - Width 3.0 -Current Size (cm) - Depth 3.5 -Total Square Cm 5.40 -Photo Taken No -Tunneling No -Undermining/Tunneling No -Circular Undermining No -Exudate Amt Medium (34-66%) -Exudate Type Yellow/Green -Wound Margin Distinct, Outline Attached -Granulation Amt None Present (0 %) -Granulation Quality N/A -Slough/Fibrin Yes -Necrosis Amt None Present (0 %) -Necrotic Tissue Type Adherent Slough -Structure Exposed None/Limited to Skin Breakdown -Texture (Amanda-wound Skin Appearance) No Abnormality Assessed -Moisture (Amanda-wound Skin Appearance No Abnormality ) Assessed -Color (Amanda-wound Skin Appearance) No Abnormality Assessed -Temperature (Amanda-wound Skin No Abnormality Appearance) (Pt Warm) -Tenderness on Palpation (Amanda-wound No Skin Appearance) -Ulcer Cleansing Wound Cleanser -Foul Odor after Cleansing No -Anesthetic Used 4% Lidocaine Solution [Edema Assessment] -Lower Limb Edema Present NA WC - Nurse 2 - General Ulcer CM Notes Start: 01/02/18 11:50 Freq: Status: Active Protocol: Activity Type Activity Date Activity User E-Sign Co-Sign Detail Recorded Client Recorded Date Recorded By Document 01/09/18 09:37 [place] [id number] 01/09/18 09:47 [place] 01/09/18 09:37 Wound Center Nurse 2 [Procedure/Treatment] #6 lower mid abd -Time 09:37 -Correct Patient Yes -Correct Side, Site, Position Yes -Correct Procedure Yes -Procedure Performed Yes -Type of Procedure Debridement -Clinical Debridement Subcutaneous -Post Debridement Size (cm) - Length 5.9 -Post Debridement Size (cm) - Width 4.1 -Post Debridement Size (cm) - Depth 0.2 -Total Square Cm 24.19 -Wound/Ulcer Outcome Not Healed -Ulcer Cleansing Rinsed/ Irrigated with Saline -Foul Odor after Cleansing No -Bioengineered Tissue No -Bleeding Controlled with NA -Treatment Response Procedure Tolerated Well #5 sacrum -Time 09:38 -Correct Patient Yes -Correct Side, Site, Position Yes -Correct Procedure Yes -Procedure Performed Yes -Type of Procedure Debridement -Clinical Debridement Subcutaneous -Post Debridement Size (cm) - Length 1.5 -Post Debridement Size (cm) - Width 3.5 -Post Debridement Size (cm) - Depth 2.0 -Total Square Cm 5.25 -Wound/Ulcer Outcome Not Healed -Ulcer Cleansing Rinsed/ Irrigated with Saline -Foul Odor after Cleansing No -Bioengineered Tissue No -Bleeding Controlled with NA -Treatment Response Procedure Tolerated Well [See Physician Procedure note for Specifics] Pain Scale: 0-10 Numeric [Pain] -Is Patient Pain Free? Yes Musculoskeletal: No Muscle Wasting Neurological: Cranial nerves II-XII grossly intact Psych/Mental Status: Normal Affect Debridement Note Post-Debridement Measurements/Treatment WC - Nurse 2 - General Ulcer CM Notes Start: 01/02/18 11:50 Freq: Status: Active Protocol: Activity Type Activity Date Activity User E-Sign Co-Sign Detail Recorded Client Recorded Date Recorded By Document 01/02/18 12:28 MW [id number] 01/02/18 12:38 MW Document 01/09/18 09:37 JS [id number] 01/09/18 09:47 JS 01/02/18 01/09/18 12:28 09:37 Wound Center Nurse 2 #6 lower mid abd -Time 12:29 09:37 -Correct Patient Yes Yes -Correct Side, Site, Position Yes Yes -Correct Procedure Yes Yes -Procedure Performed Yes Yes -Type of Procedure Debridement Debridement -Clinical Debridement Subcutaneous Subcutaneous -Post Debridement Size (cm) - Length 9.0 5.9 -Post Debridement Size (cm) - Width 5.0 4.1 -Post Debridement Size (cm) - Depth 0.9 0.2 -Total Square Cm 45.00 24.19 -Wound/Ulcer Outcome Not Healed Not Healed -Ulcer Cleansing Rinsed/ Rinsed/ Irrigated with Irrigated with Saline Saline -Foul Odor after Cleansing No No -Bioengineered Tissue No No -Bleeding Controlled with Pressure NA -Treatment Response Procedure Procedure Tolerated Well Tolerated Well #5 sacrum -Time 12:30 09:38 -Correct Patient Yes Yes -Correct Side, Site, Position Yes Yes -Correct Procedure Yes Yes -Procedure Performed Yes Yes -Type of Procedure Debridement Debridement -Clinical Debridement Subcutaneous Subcutaneous -Post Debridement Size (cm) - Length 1.6 1.5 -Post Debridement Size (cm) - Width 3.7 3.5 -Post Debridement Size (cm) - Depth 2.0 2.0 -Total Square Cm 5.92 5.25 -Wound/Ulcer Outcome Not Healed Not Healed -Ulcer Cleansing Rinsed/ Rinsed/ Irrigated with Irrigated with Saline Saline -Foul Odor after Cleansing No No -Bioengineered Tissue No No -Bleeding Controlled with Pressure NA -Treatment Response Procedure Procedure Tolerated Well Tolerated Well Pain Scale: 0-10 Numeric Is Patient Pain Free? Yes Yes Wound debrided: Abdominal wound Wound Grade/Stage: Stage III Type of Debridement: Excisional debridement Anesthesia Used: 4% Lidocaine Solution Depth: Down to and including healthy tissue, in the subcutaneous layer Percentage of wound debrided: 100 Instrument Used: 5mm curette Tissue Removed: Devitalized tissue and biofilm Severity: Fat Layer Exposed Amount of bleeding with debridement: Mild Bleeding Controlled with: Pressure Patient tolerated procedure well - Additional Wound Wound debrided: Sacral Ulcer Wound Grade/Stage: Stage IV Type of Debridement: Excisional debridement Anesthesia Used: 4% Lidocaine Solution Depth: Down to and including healthy tissue, in the subcutaneous layer Percentage of wound debrided: 100 Instrument Used: 5mm curette Tissue Removed: Slouh and devitalized tissue Severity: Fat Layer Exposed Amount of bleeding with debridement: Mild Bleeding Controlled with: Pressure Patient tolerated procedure: Patient tolerated procedure well Assessment/Plan Active Problems (Last Updated 08/09/17 @ 08:06 by Liz Baker) Colovaginal fistula (Acute) Non-healing surgical wound (Acute) Pressure ulcer of sacral region, stage 4 (Chronic) Assessment: Stage IV sacral decubitus ulcer. Right heel stage III pressure ulcer. - Healed. Left heel stage III pressure ulcer - Healed. Post surgical abdominal wound Plan: Debridement done as documented above. Procedure was well-tolerated. Culture done at last visit with minimal growth, possible contaminant. Will old off abx for now. Continue Fibracol to sacral ulcer with Optiform over top. Change daily to every other day. Continue wound VAC to postsurgical abdominal wound at [address] adaptic directly on wound before black foam. Continue increased protein intake. Follow-up in 1 week. Advised to call with any questions or concerns. This note was generated with [employer] dictation software. It may contain incorrect words, spelling, and punctuation that were not noted in checking the note before signing.
[2018-01-16 09:08] VITALS: BP 126/83; PULSE 89; RESP 16; TEMP 36.6; BMI 40.5
--- NOTE | 2018-01-16 09:24 | PCM.WC.PN ---
(1) Colovaginal fistula Status: Acute Current Visit: Yes Code(s): N82.4 - Other female intestinal-genital tract fistulae (2) Non-healing surgical wound Status: Acute Current Visit: Yes Code(s): T81.89XA - Other complications of procedures, not elsewhere classified, initial encounter (3) Pressure ulcer of sacral region, stage 4 Status: Chronic Current Visit: Yes Code(s): L89.154 - Pressure ulcer of sacral region, stage 4 Type of Wound Date of Service: 01/16/18 Chief Complaint: Stage IV sacral pressure ulceration; bilateral unstageable necrotic heel pressure ulcerations History of Wound: Ms. Chavez is a 67-year-old female who is well known to me in the wound center and was last seen here over. Most recently has been managed at the [facility] for a colovaginal fistula. Surgery was in 10 December. Status post surgery she had been in a longterm. She has had routine dressings to her sacral decubitus ulcer and had a wound VAC to her abdominal surgical ulcer. She denies any new complaints at this time. Progress of Wound: Stable. No new complaints. Wound vac dced by surgeon. - Physical Exam Vital Signs Temp Pulse Resp BP 98 F 89 16 126/83 H 01/16/18 09:08 01/16/18 09:08 01/16/18 09:08 01/16/18 09:08 General: Alert, Oriented x3, Cooperative, No apparent distress HEENT: Atraumatic, Normocephalic Oral: Moist Mucosa Neck: Supple Lungs: Normal air movement Cardiovascular: Regular rate, Regular Rhythm Abdomen: Obese Extremities: No cyanosis Skin: Ulcer/ Wound Wound Measurements and Assessment WC - Nurse 1 - General Ulcer Measurement Start: 01/02/18 11:50 Freq: Status: Active Protocol: Activity Type Activity Date Activity User E-Sign Co-Sign Detail Recorded Client Recorded Date Recorded By Document 01/16/18 09:08 DE [id number] 01/16/18 09:10 DE 01/16/18 09:08 Wound Center Nurse 1 [Ulcer Assessment] #6 lower mid abd -Combined with other wound No -Current Size (cm) - Length 9.8 -Current Size (cm) - Width 3.8 -Current Size (cm) - Depth 0.1 -Total Square Cm 37.24 -Photo Taken No -Epithelialization Medium 34-66% -Tunneling No -Undermining/Tunneling No -Circular Undermining No -Exudate Amt Small (1-33%) -Exudate Type Serosanguineous -Wound Margin Flat & Intact -Granulation Amt Large (67-100%) -Granulation Quality [place] Red -Slough/Fibrin No -Necrotic Tissue Type Eschar -Texture (Amanda-wound Skin Appearance) Assessed -Moisture (Amanda-wound Skin Appearance Assessed ) Maceration -Color (Amanda-wound Skin Appearance) Assessed -Temperature (Amanda-wound Skin No Abnormality Appearance) (Pt Warm) -Tenderness on Palpation (Amanda-wound Yes Skin Appearance) -Ulcer Cleansing Rinsed/ Irrigated with Saline -Foul Odor after Cleansing No -Anesthetic Used 4% Lidocaine Solution #5 sacrum -Combined with other wound No -Current Size (cm) - Length 1.5 -Current Size (cm) - Width 3.5 -Current Size (cm) - Depth 2.0 -Total Square Cm 5.25 -Photo Taken No -Epithelialization Small 1-33% -Tunneling No -Undermining/Tunneling No -Circular Undermining No -Exudate Amt Medium (34-66%) -Exudate Type Serosanguineous -Wound Margin Thickened & Rolled Under -Granulation Amt Large (67-100%) -Granulation Quality Pale [place] -Slough/Fibrin No -Texture (Amanda-wound Skin Appearance) Assessed -Moisture (Amanda-wound Skin Appearance Assessed ) Maceration -Color (Amanda-wound Skin Appearance) Assessed -Temperature (Amanda-wound Skin No Abnormality Appearance) (Pt Warm) -Tenderness on Palpation (Amanda-wound No Skin Appearance) -Ulcer Cleansing Rinsed/ Irrigated with Saline -Foul Odor after Cleansing No -Anesthetic Used 4% Lidocaine Solution [Edema Assessment] -Lower Limb Edema Present NA WC - Nurse 2 - General Ulcer CM Notes Start: 01/02/18 11:50 Freq: Status: Active Protocol: Activity Type Activity Date Activity User E-Sign Co-Sign Detail Recorded Client Recorded Date Recorded By Document 01/16/18 09:18 [id number] 01/16/18 09:23 CS 01/16/18 09:18 Wound Center Nurse 2 [Procedure/Treatment] #6 lower mid abd -Time 09:18 -Correct Patient Yes -Correct Side, Site, Position Yes -Correct Procedure Yes -Procedure Performed Yes -Type of Procedure Debridement -Clinical Debridement Subcutaneous -Post Debridement Size (cm) - Length 9.5 -Post Debridement Size (cm) - Width 3.7 -Post Debridement Size (cm) - Depth 0.2 -Total Square Cm 35.15 -Wound/Ulcer Outcome Not Healed -Ulcer Cleansing Rinsed/ Irrigated with Saline -Foul Odor after Cleansing No -Bioengineered Tissue No -Bleeding Controlled with Pressure -Treatment Response Procedure Tolerated Well #5 sacrum -Time 09:19 -Correct Patient Yes -Correct Side, Site, Position Yes -Correct Procedure Yes -Procedure Performed Yes -Type of Procedure Debridement -Clinical Debridement Subcutaneous -Post Debridement Size (cm) - Length 1.4 -Post Debridement Size (cm) - Width 3.2 -Post Debridement Size (cm) - Depth 2.5 -Total Square Cm 4.48 -Wound/Ulcer Outcome Not Healed -Ulcer Cleansing Rinsed/ Irrigated with Saline -Foul Odor after Cleansing No -Bioengineered Tissue No -Bleeding Controlled with NA -Treatment Response Procedure Tolerated Well [See Physician Procedure note for Specifics] Pain Scale: 0-10 Numeric [Pain] -Is Patient Pain Free? Yes Musculoskeletal: No Muscle Wasting Neurological: Cranial nerves II-XII grossly intact Psych/Mental Status: Normal Affect Debridement Note Post-Debridement Measurements/Treatment WC - Nurse 2 - General Ulcer CM Notes Start: 01/02/18 11:50 Freq: Status: Active Protocol: Activity Type Activity Date Activity User E-Sign Co-Sign Detail Recorded Client Recorded Date Recorded By Document 01/02/18 12:28 MW [id number] 01/02/18 12:38 MW Document 01/09/18 09:37 JS [id number] 01/09/18 09:47 JS Document 01/16/18 09:18 CS [id number] 01/16/18 09:23 CS 01/02/18 01/09/18 01/16/18 12:28 09:37 09:18 Wound Center Nurse 2 #6 lower mid abd -Time 12:29 09:37 09:18 -Correct Patient Yes Yes Yes -Correct Side, Site, Position Yes Yes Yes -Correct Procedure Yes Yes Yes -Procedure Performed Yes Yes Yes -Type of Procedure Debridement Debridement Debridement -Clinical Debridement Subcutaneous Subcutaneous Subcutaneous -Post Debridement Size (cm) - Length 9.0 5.9 9.5 -Post Debridement Size (cm) - Width 5.0 4.1 3.7 -Post Debridement Size (cm) - Depth 0.9 0.2 0.2 -Total Square Cm 45.00 24.19 35.15 -Wound/Ulcer Outcome Not Healed Not Healed Not Healed -Ulcer Cleansing Rinsed/ Rinsed/ Rinsed/ Irrigated with Irrigated with Irrigated with Saline Saline Saline -Foul Odor after Cleansing No No No -Bioengineered Tissue No No No -Bleeding Controlled with Pressure NA Pressure -Treatment Response Procedure Procedure Procedure Tolerated Well Tolerated Well Tolerated Well #5 sacrum -Time 12:30 09:38 09:19 -Correct Patient Yes Yes Yes -Correct Side, Site, Position Yes Yes Yes -Correct Procedure Yes Yes Yes -Procedure Performed Yes Yes Yes -Type of Procedure Debridement Debridement Debridement -Clinical Debridement Subcutaneous Subcutaneous Subcutaneous -Post Debridement Size (cm) - Length 1.6 1.5 1.4 -Post Debridement Size (cm) - Width 3.7 3.5 3.2 -Post Debridement Size (cm) - Depth 2.0 2.0 2.5 -Total Square Cm 5.92 5.25 4.48 -Wound/Ulcer Outcome Not Healed Not Healed Not Healed -Ulcer Cleansing Rinsed/ Rinsed/ Rinsed/ Irrigated with Irrigated with Irrigated with Saline Saline Saline -Foul Odor after Cleansing No No No -Bioengineered Tissue No No No -Bleeding Controlled with Pressure NA NA -Treatment Response Procedure Procedure Procedure Tolerated Well Tolerated Well Tolerated Well Pain Scale: 0-10 Numeric Is Patient Pain Free? Yes Yes Yes Wound debrided: Abdominal wound Wound Grade/Stage: Stage III Type of Debridement: Excisional debridement Anesthesia Used: 4% Lidocaine Solution Depth: Down to and including healthy tissue, in the subcutaneous layer Percentage of wound debrided: 100 Instrument Used: 5mm curette Tissue Removed: Slough and devitalized Severity: Fat Layer Exposed Amount of bleeding with debridement: Mild Bleeding Controlled with: Pressure Patient tolerated procedure well - Additional Wound Wound debrided: Sacral Ulcer Wound Grade/Stage: Stage IV Type of Debridement: Excisional debridement Anesthesia Used: 4% Lidocaine Solution Depth: Down to and including healthy tissue, in the subcutaneous layer Percentage of wound debrided: 100 Instrument Used: 5mm curette Tissue Removed: Slough and devitalized tissue Severity: Fat Layer Exposed Amount of bleeding with debridement: Mild Bleeding Controlled with: Pressure Patient tolerated procedure: Patient tolerated procedure well Assessment/Plan Active Problems (Last Updated 08/09/17 @ 08:06 by Liz Baker) Colovaginal fistula (Acute) Non-healing surgical wound (Acute) Pressure ulcer of sacral region, stage 4 (Chronic) Assessment: Stage IV sacral decubitus ulcer. Right heel stage III pressure ulcer. - Healed. Left heel stage III pressure ulcer - Healed. Post surgical abdominal wound Plan: Wound Vac discontinued by her surgeon. Debridement done as documented above, procedure was well tolerated. Promogran with adaptic over top to the abdominal wound ( Change daily ) and continue Fibrochol to the sacral wound. Continue increased protein intake. Follow-up in 1 week. Advised to call with any questions or concerns. This note was generated with [employer] dictation software. It may contain incorrect words, spelling, and punctuation that were not noted in checking the note before signing.
--- NOTE | 2018-01-16 09:32 | PN.PCM_ITS ---
(1) Colovaginal fistula Status: Acute Current Visit: Yes Code(s): N82.4 - Other female intestinal- genital tract fistulae (2) Non-healing surgical wound Status: Acute Current Visit: Yes Code(s): T81.89XA - Other complications of procedures, not elsewhere classified, initial encounter (3) Pressure ulcer of sacral region, stage 4 Status: Chronic Current Visit: Yes Code(s): L89.154 - Pressure ulcer of sacral region, stage 4 Type of Wound Date of Service: 01/16/18 Chief Complaint: Stage IV sacral pressure ulceration; bilateral unstageable necrotic heel pressure ulcerations History of Wound: Ms. Chavez is a 67-year-old female who is well known to me in the wound center and was last seen here over. Most recently has been managed at the [facility] for a colovaginal fistula. Surgery was in 10 December. Status post surgery she had been in a half-way. She has had routine dressings to her sacral decubitus ulcer and had a wound VAC to her abdominal surgical ulcer. She denies any new complaints at this time. Progress of Wound: Stable. No new complaints. Wound vac dced by surgeon. - Physical Exam Vital Signs Temp Pulse Resp BP 98 F 89 16 126/83 H 01/16/18 09:08 01/16/18 09:08 01/16/18 09:08 01/16/18 09:08 General: Alert, Oriented x3, Cooperative, No apparent distress HEENT: Atraumatic, Normocephalic Oral: Moist Mucosa Neck: Supple Lungs: Normal air movement Cardiovascular: Regular rate, Regular Rhythm Abdomen: Obese Extremities: No cyanosis Skin: Ulcer/ Wound Wound Measurements and Assessment WC - Nurse 1 - General Ulcer Measurement Start: 01/02/18 11:50 Freq: Status: Active Protocol: Activity Type Activity Date Activity User E-Sign Co-Sign Detail Recorded Client Recorded Date Recorded By Document 01/16/18 09:08 KS [id number] 01/16/18 09:10 KS 01/16/18 09:08 Wound Center Nurse 1 [Ulcer Assessment] #6 lower mid abd -Combined with other wound No -Current Size (cm) - Length 9.8 -Current Size (cm) - Width 3.8 -Current Size (cm) - Depth 0.1 -Total Square Cm 37.24 -Photo Taken No -Epithelialization Medium 34-66% -Tunneling No -Undermining/Tunneling No -Circular Undermining No -Exudate Amt Small (1-33%) -Exudate Type Serosanguineous -Wound Margin Flat & Intact -Granulation Amt Large (67-100%) -Granulation Quality [place] Red -Slough/Fibrin No -Necrotic Tissue Type Eschar -Texture (Amanda-wound Skin Appearance) Assessed -Moisture (Amanda-wound Skin Appearance Assessed ) Maceration -Color (Amanda-wound Skin Appearance) Assessed -Temperature (Amanda-wound Skin No Abnormality Appearance) (Pt Warm) -Tenderness on Palpation (Amanda-wound Yes Skin Appearance) -Ulcer Cleansing Rinsed/ Irrigated with Saline -Foul Odor after Cleansing No -Anesthetic Used 4% Lidocaine Solution #5 sacrum -Combined with other wound No -Current Size (cm) - Length 1.5 -Current Size (cm) - Width 3.5 -Current Size (cm) - Depth 2.0 -Total Square Cm 5.25 -Photo Taken No -Epithelialization Small 1-33% -Tunneling No -Undermining/Tunneling No -Circular Undermining No -Exudate Amt Medium (34-66%) -Exudate Type Serosanguineous -Wound Margin Thickened & Rolled Under -Granulation Amt Large (67-100%) -Granulation Quality Pale [place] -Slough/Fibrin No -Texture (Amanda-wound Skin Appearance) Assessed -Moisture (Amanda-wound Skin Appearance Assessed ) Maceration -Color (Amanda-wound Skin Appearance) Assessed -Temperature (Amanda-wound Skin No Abnormality Appearance) (Pt Warm) -Tenderness on Palpation (Amanda-wound No Skin Appearance) -Ulcer Cleansing Rinsed/ Irrigated with Saline -Foul Odor after Cleansing No -Anesthetic Used 4% Lidocaine Solution [Edema Assessment] -Lower Limb Edema Present NA WC - Nurse 2 - General Ulcer CM Notes Start: 01/02/18 11:50 Freq: Status: Active Protocol: Activity Type Activity Date Activity User E-Sign Co-Sign Detail Recorded Client Recorded Date Recorded By Document 01/16/18 09:18 [id number] 01/16/18 09:23 CS 01/16/18 09:18 Wound Center Nurse 2 [Procedure/Treatment] #6 lower mid abd -Time 09:18 -Correct Patient Yes -Correct Side, Site, Position Yes -Correct Procedure Yes -Procedure Performed Yes -Type of Procedure Debridement -Clinical Debridement Subcutaneous -Post Debridement Size (cm) - Length 9.5 -Post Debridement Size (cm) - Width 3.7 -Post Debridement Size (cm) - Depth 0.2 -Total Square Cm 35.15 -Wound/Ulcer Outcome Not Healed -Ulcer Cleansing Rinsed/ Irrigated with Saline -Foul Odor after Cleansing No -Bioengineered Tissue No -Bleeding Controlled with Pressure -Treatment Response Procedure Tolerated Well #5 sacrum -Time 09:19 -Correct Patient Yes -Correct Side, Site, Position Yes -Correct Procedure Yes -Procedure Performed Yes -Type of Procedure Debridement -Clinical Debridement Subcutaneous -Post Debridement Size (cm) - Length 1.4 -Post Debridement Size (cm) - Width 3.2 -Post Debridement Size (cm) - Depth 2.5 -Total Square Cm 4.48 -Wound/Ulcer Outcome Not Healed -Ulcer Cleansing Rinsed/ Irrigated with Saline -Foul Odor after Cleansing No -Bioengineered Tissue No -Bleeding Controlled with NA -Treatment Response Procedure Tolerated Well [See Physician Procedure note for Specifics] Pain Scale: 0-10 Numeric [Pain] -Is Patient Pain Free? Yes Musculoskeletal: No Muscle Wasting Neurological: Cranial nerves II-XII grossly intact Psych/Mental Status: Normal Affect Debridement Note Post-Debridement Measurements/Treatment WC - Nurse 2 - General Ulcer CM Notes Start: 01/02/18 11:50 Freq: Status: Active Protocol: Activity Type Activity Date Activity User E-Sign Co-Sign Detail Recorded Client Recorded Date Recorded By Document 01/02/18 12:28 MW [id number] 01/02/18 12:38 MW Document 01/09/18 09:37 JS [id number] 01/09/18 09:47 JS Document 01/16/18 09:18 CS [id number] 01/16/18 09:23 CS 01/02/18 01/09/18 01/16/18 12:28 09:37 09:18 Wound Center Nurse 2 #6 lower mid abd -Time 12:29 09:37 09:18 -Correct Patient Yes Yes Yes -Correct Side, Site, Position Yes Yes Yes -Correct Procedure Yes Yes Yes -Procedure Performed Yes Yes Yes -Type of Procedure Debridement Debridement Debridement -Clinical Debridement Subcutaneous Subcutaneous Subcutaneous -Post Debridement Size (cm) - Length 9.0 5.9 9.5 -Post Debridement Size (cm) - Width 5.0 4.1 3.7 -Post Debridement Size (cm) - Depth 0.9 0.2 0.2 -Total Square Cm 45.00 24.19 35.15 -Wound/Ulcer Outcome Not Healed Not Healed Not Healed -Ulcer Cleansing Rinsed/ Rinsed/ Rinsed/ Irrigated with Irrigated with Irrigated with Saline Saline Saline -Foul Odor after Cleansing No No No -Bioengineered Tissue No No No -Bleeding Controlled with Pressure NA Pressure -Treatment Response Procedure Procedure Procedure Tolerated Well Tolerated Well Tolerated Well #5 sacrum -Time 12:30 09:38 09:19 -Correct Patient Yes Yes Yes -Correct Side, Site, Position Yes Yes Yes -Correct Procedure Yes Yes Yes -Procedure Performed Yes Yes Yes -Type of Procedure Debridement Debridement Debridement -Clinical Debridement Subcutaneous Subcutaneous Subcutaneous -Post Debridement Size (cm) - Length 1.6 1.5 1.4 -Post Debridement Size (cm) - Width 3.7 3.5 3.2 -Post Debridement Size (cm) - Depth 2.0 2.0 2.5 -Total Square Cm 5.92 5.25 4.48 -Wound/Ulcer Outcome Not Healed Not Healed Not Healed -Ulcer Cleansing Rinsed/ Rinsed/ Rinsed/ Irrigated with Irrigated with Irrigated with Saline Saline Saline -Foul Odor after Cleansing No No No -Bioengineered Tissue No No No -Bleeding Controlled with Pressure NA NA -Treatment Response Procedure Procedure Procedure Tolerated Well Tolerated Well Tolerated Well Pain Scale: 0-10 Numeric Is Patient Pain Free? Yes Yes Yes Wound debrided: Abdominal wound Wound Grade/Stage: Stage III Type of Debridement: Excisional debridement Anesthesia Used: 4% Lidocaine Solution Depth: Down to and including healthy tissue, in the subcutaneous layer Percentage of wound debrided: 100 Instrument Used: 5mm curette Tissue Removed: Slough and devitalized Severity: Fat Layer Exposed Amount of bleeding with debridement: Mild Bleeding Controlled with: Pressure Patient tolerated procedure well - Additional Wound Wound debrided: Sacral Ulcer Wound Grade/Stage: Stage IV Type of Debridement: Excisional debridement Anesthesia Used: 4% Lidocaine Solution Depth: Down to and including healthy tissue, in the subcutaneous layer Percentage of wound debrided: 100 Instrument Used: 5mm curette Tissue Removed: Slough and devitalized tissue Severity: Fat Layer Exposed Amount of bleeding with debridement: Mild Bleeding Controlled with: Pressure Patient tolerated procedure: Patient tolerated procedure well Assessment/Plan Active Problems (Last Updated 08/09/17 @ 08:06 by Liz Baker) Colovaginal fistula (Acute) Non-healing surgical wound (Acute) Pressure ulcer of sacral region, stage 4 (Chronic) Assessment: Stage IV sacral decubitus ulcer. Right heel stage III pressure ulcer. - Healed. Left heel stage III pressure ulcer - Healed. Post surgical abdominal wound Plan: Wound Vac discontinued by her surgeon. Debridement done as documented above, procedure was well tolerated. Promogran with adaptic over top to the abdominal wound ( Change daily ) and continue Fibrochol to the sacral wound. Continue increased protein intake. Follow-up in 1 week. Advised to call with any questions or concerns. This note was generated with [employer] dictation software. It may contain incorrect words, spelling, and punctuation that were not noted in checking the note before signing.
[2018-01-23 08:54] VITALS: BP 121/70; PULSE 93; RESP 16; TEMP 36.7; BMI 40.5
--- NOTE | 2018-01-23 10:43 | PCM.WC.PN ---
(1) Colovaginal fistula Status: Acute Current Visit: Yes Code(s): N82.4 - Other female intestinal-genital tract fistulae (2) Non-healing surgical wound Status: Acute Current Visit: Yes Code(s): T81.89XA - Other complications of procedures, not elsewhere classified, initial encounter (3) Pressure ulcer of sacral region, stage 4 Status: Chronic Current Visit: Yes Code(s): L89.154 - Pressure ulcer of sacral region, stage 4 Type of Wound Date of Service: 01/23/18 Chief Complaint: Stage IV sacral pressure ulceration; bilateral unstageable necrotic heel pressure ulcerations History of Wound: Ms. Chavez is a 67-year-old female who is well known to me in the wound center and was last seen here over. Most recently has been managed at the [facility] for a colovaginal fistula. Surgery was in 10 December. Status post surgery she had been in a alf. She has had routine dressings to her sacral decubitus ulcer and had a wound VAC to her abdominal surgical ulcer. She denies any new complaints at this time. Progress of Wound: Stable. No new complaints. - Physical Exam Vital Signs Temp Pulse Resp BP 98.0 F 93 16 121/70 H 01/23/18 08:54 01/23/18 08:54 01/23/18 08:54 01/23/18 08:54 General: Alert, Oriented x3, Cooperative, No apparent distress HEENT: Atraumatic Oral: Moist Mucosa Neck: Supple Lungs: Normal air movement Abdomen: Soft Extremities: No cyanosis Skin: Ulcer/ Wound Wound Measurements and Assessment WC - Nurse 1 - General Ulcer Measurement Start: 01/02/18 11:50 Freq: Status: Active Protocol: Activity Type Activity Date Activity User E-Sign Co-Sign Detail Recorded Client Recorded Date Recorded By Document 01/23/18 08:54 [id number] 01/23/18 08:57 01/23/18 08:54 Wound Center Nurse 1 [Ulcer Assessment] #6 lower mid abd -Combined with other wound No -Current Size (cm) - Length 9 -Current Size (cm) - Width 2.4 -Current Size (cm) - Depth 0.1 -Total Square Cm 21.6 -Date of Last Picture (Recall this 01/23/18 field) -Photo Taken Yes -Epithelialization Small 1-33% -Tunneling No -Undermining/Tunneling No -Circular Undermining No -Exudate Amt Medium (34-66%) -Exudate Type Serosanguineous -Wound Margin Distinct, Outline Attached -Granulation Amt Medium (34-66%) -Granulation Quality [place] Red -Slough/Fibrin Yes -Necrosis Amt None Present (0 %) -Necrotic Tissue Type Adherent Slough -Structure Exposed None/Limited to Skin Breakdown -Texture (Amanda-wound Skin Appearance) No Abnormality -Moisture (Amanda-wound Skin Appearance No Abnormality ) Assessed -Color (Amanda-wound Skin Appearance) No Abnormality Assessed -Temperature (Amanda-wound Skin No Abnormality Appearance) (Pt Warm) -Tenderness on Palpation (Amanda-wound No Skin Appearance) -Ulcer Cleansing Rinsed/ Irrigated with Saline -Foul Odor after Cleansing No -Anesthetic Used 4% Lidocaine Solution #5 sacrum -Combined with other wound No -Current Size (cm) - Length 1.4 -Current Size (cm) - Width 3.3 -Current Size (cm) - Depth 2.4 -Total Square Cm 4.62 -Date of Last Picture (Recall this 01/23/18 field) -Photo Taken Yes -Epithelialization None Present -Tunneling No -Undermining/Tunneling No -Circular Undermining Yes -Exudate Amt Large (67-100%) -Exudate Type Yellow/Green -Wound Margin Distinct, Outline Attached -Granulation Amt None Present (0 %) -Granulation Quality N/A -Slough/Fibrin Yes -Necrosis Amt None Present (0 %) -Necrotic Tissue Type Adherent Slough -Structure Exposed None/Limited to Skin Breakdown -Texture (Amanda-wound Skin Appearance) Assessed Scarring -Moisture (Amanda-wound Skin Appearance No Abnormality ) Assessed -Color (Amanda-wound Skin Appearance) No Abnormality -Temperature (Amanda-wound Skin No Abnormality Appearance) (Pt Warm) -Tenderness on Palpation (Amanda-wound No Skin Appearance) -Ulcer Cleansing Rinsed/ Irrigated with Saline -Foul Odor after Cleansing No -Anesthetic Used 4% Lidocaine Solution [Edema Assessment] -Lower Limb Edema Present NA WC - Nurse 2 - General Ulcer CM Notes Start: 01/02/18 11:50 Freq: Status: Active Protocol: Activity Type Activity Date Activity User E-Sign Co-Sign Detail Recorded Client Recorded Date Recorded By Document 01/23/18 09:21 MW [id number] 01/23/18 09:27 MW 01/23/18 09:21 Wound Center Nurse 2 [Procedure/Treatment] #6 lower mid abd -Time 09:21 -Correct Patient Yes -Correct Side, Site, Position Yes -Correct Procedure Yes -Procedure Performed Yes -Type of Procedure Debridement -Clinical Debridement Subcutaneous -Post Debridement Size (cm) - Length 9.0 -Post Debridement Size (cm) - Width 2.5 -Post Debridement Size (cm) - Depth 0.2 -Total Square Cm 22.50 -Wound/Ulcer Outcome Not Healed -Ulcer Cleansing Rinsed/ Irrigated with Saline -Foul Odor after Cleansing No -Bioengineered Tissue No -Bleeding Controlled with Pressure -Treatment Response Procedure Tolerated Well #5 sacrum -Time 09:21 -Correct Patient Yes -Correct Side, Site, Position Yes -Correct Procedure Yes -Procedure Performed Yes -Type of Procedure Debridement -Clinical Debridement Subcutaneous -Post Debridement Size (cm) - Length 1.5 -Post Debridement Size (cm) - Width 3.2 -Post Debridement Size (cm) - Depth 1.7 -Total Square Cm 4.80 -Wound/Ulcer Outcome Not Healed -Ulcer Cleansing Rinsed/ Irrigated with Saline -Foul Odor after Cleansing No -Bioengineered Tissue No -Bleeding Controlled with Pressure -Treatment Response Procedure Tolerated Well [See Physician Procedure note for Specifics] Pain Scale: 0-10 Numeric [Pain] -Is Patient Pain Free? Yes Musculoskeletal: No Muscle Wasting Neurological: Cranial nerves II-XII grossly intact Psych/Mental Status: Normal Affect Debridement Note Post-Debridement Measurements/Treatment WC - Nurse 2 - General Ulcer CM Notes Start: 01/02/18 11:50 Freq: Status: Active Protocol: Activity Type Activity Date Activity User E-Sign Co-Sign Detail Recorded Client Recorded Date Recorded By Document 01/02/18 12:28 MW [id number] 01/02/18 12:38 MW Document 01/09/18 09:37 JS [id number] 01/09/18 09:47 JS Document 01/16/18 09:18 CS [id number] 01/16/18 09:23 CS Document 01/23/18 09:21 MW [id number] 01/23/18 09:27 MW 01/02/18 01/09/18 01/16/18 12:28 09:37 09:18 Wound Center Nurse 2 #6 lower mid abd -Time 12:29 09:37 09:18 -Correct Patient Yes Yes Yes -Correct Side, Site, Position Yes Yes Yes -Correct Procedure Yes Yes Yes -Procedure Performed Yes Yes Yes -Type of Procedure Debridement Debridement Debridement -Clinical Debridement Subcutaneous Subcutaneous Subcutaneous -Post Debridement Size (cm) - Length 9.0 5.9 9.5 -Post Debridement Size (cm) - Width 5.0 4.1 3.7 -Post Debridement Size (cm) - Depth 0.9 0.2 0.2 -Total Square Cm 45.00 24.19 35.15 -Wound/Ulcer Outcome Not Healed Not Healed Not Healed -Ulcer Cleansing Rinsed/ Rinsed/ Rinsed/ Irrigated with Irrigated with Irrigated with Saline Saline Saline -Foul Odor after Cleansing No No No -Bioengineered Tissue No No No -Bleeding Controlled with Pressure NA Pressure -Treatment Response Procedure Procedure Procedure Tolerated Well Tolerated Well Tolerated Well #5 sacrum -Time 12:30 09:38 09:19 -Correct Patient Yes Yes Yes -Correct Side, Site, Position Yes Yes Yes -Correct Procedure Yes Yes Yes -Procedure Performed Yes Yes Yes -Type of Procedure Debridement Debridement Debridement -Clinical Debridement Subcutaneous Subcutaneous Subcutaneous -Post Debridement Size (cm) - Length 1.6 1.5 1.4 -Post Debridement Size (cm) - Width 3.7 3.5 3.2 -Post Debridement Size (cm) - Depth 2.0 2.0 2.5 -Total Square Cm 5.92 5.25 4.48 -Wound/Ulcer Outcome Not Healed Not Healed Not Healed -Ulcer Cleansing Rinsed/ Rinsed/ Rinsed/ Irrigated with Irrigated with Irrigated with Saline Saline Saline -Foul Odor after Cleansing No No No -Bioengineered Tissue No No No -Bleeding Controlled with Pressure NA NA -Treatment Response Procedure Procedure Procedure Tolerated Well Tolerated Well Tolerated Well Pain Scale: 0-10 Numeric Is Patient Pain Free? Yes Yes Yes 01/23/18 09:21 Wound Center Nurse 2 #6 lower mid abd -Time 09:21 -Correct Patient Yes -Correct Side, Site, Position Yes -Correct Procedure Yes -Procedure Performed Yes -Type of Procedure Debridement -Clinical Debridement Subcutaneous -Post Debridement Size (cm) - Length 9.0 -Post Debridement Size (cm) - Width 2.5 -Post Debridement Size (cm) - Depth 0.2 -Total Square Cm 22.50 -Wound/Ulcer Outcome Not Healed -Ulcer Cleansing Rinsed/ Irrigated with Saline -Foul Odor after Cleansing No -Bioengineered Tissue No -Bleeding Controlled with Pressure -Treatment Response Procedure Tolerated Well #5 sacrum -Time 09:21 -Correct Patient Yes -Correct Side, Site, Position Yes -Correct Procedure Yes -Procedure Performed Yes -Type of Procedure Debridement -Clinical Debridement Subcutaneous -Post Debridement Size (cm) - Length 1.5 -Post Debridement Size (cm) - Width 3.2 -Post Debridement Size (cm) - Depth 1.7 -Total Square Cm 4.80 -Wound/Ulcer Outcome Not Healed -Ulcer Cleansing Rinsed/ Irrigated with Saline -Foul Odor after Cleansing No -Bioengineered Tissue No -Bleeding Controlled with Pressure -Treatment Response Procedure Tolerated Well Pain Scale: 0-10 Numeric Is Patient Pain Free? Yes Wound debrided: Sacral Ulcer Wound Grade/Stage: Stae IV Type of Debridement: Excisional debridement Anesthesia Used: 4% Lidocaine Solution Depth: Down to and including healthy tissue, in the subcutaneous layer Percentage of wound debrided: 100 Instrument Used: 5mm curette Tissue Removed: Slough and devitalized tissue Severity: Fat Layer Exposed Amount of bleeding with debridement: Mild Bleeding Controlled with: Pressure Patient tolerated procedure well - Additional Wound Wound debrided: Abdominal wound Wound Grade/Stage: Stage III Type of Debridement: Excisional debridement Anesthesia Used: 4% Lidocaine Solution Depth: Down to and including healthy tissue, in the subcutaneous layer Percentage of wound debrided: 100 Instrument Used: 5mm curette Tissue Removed: Biofilm and devitalized tissue Severity: Fat Layer Exposed Amount of bleeding with debridement: Mild Bleeding Controlled with: Pressure Patient tolerated procedure: Patient tolerated procedure well Assessment/Plan Active Problems (Last Updated 08/09/17 @ 08:06 by Liz Baker) Colovaginal fistula (Acute) Non-healing surgical wound (Acute) Pressure ulcer of sacral region, stage 4 (Chronic) Assessment: Stage IV sacral decubitus ulcer. Right heel stage III pressure ulcer. - Healed. Left heel stage III pressure ulcer - Healed. Post surgical abdominal wound Plan: Stable wound. Abdominal wound improving. Debridement done as documented above, procedure was well tolerated. Continue promogran with adaptic over top to the abdominal wound ( Change daily ) and continue Fibrochol to the sacral wound. Plan for sacral wound is surgical debridement after abdominal wound is healed. Continue increased protein intake. Follow-up in 1 week. Advised to call with any questions or concerns. This note was generated with [employer] dictation software. It may contain incorrect words, spelling, and punctuation that were not noted in checking the note before signing.
--- NOTE | 2018-01-23 10:46 | PN.PCM_ITS ---
(1) Colovaginal fistula Status: Acute Current Visit: Yes Code(s): N82.4 - Other female intestinal- genital tract fistulae (2) Non-healing surgical wound Status: Acute Current Visit: Yes Code(s): T81.89XA - Other complications of procedures, not elsewhere classified, initial encounter (3) Pressure ulcer of sacral region, stage 4 Status: Chronic Current Visit: Yes Code(s): L89.154 - Pressure ulcer of sacral region, stage 4 Type of Wound Date of Service: 01/23/18 Chief Complaint: Stage IV sacral pressure ulceration; bilateral unstageable necrotic heel pressure ulcerations History of Wound: Ms. Chavez is a 67-year-old female who is well known to me in the wound center and was last seen here over. Most recently has been managed at the [facility] for a colovaginal fistula. Surgery was in 10 December. Status post surgery she had been in a shelter. She has had routine dressings to her sacral decubitus ulcer and had a wound VAC to her abdominal surgical ulcer. She denies any new complaints at this time. Progress of Wound: Stable. No new complaints. - Physical Exam Vital Signs Temp Pulse Resp BP 98.0 F 93 16 121/70 H 01/23/18 08:54 01/23/18 08:54 01/23/18 08:54 01/23/18 08:54 General: Alert, Oriented x3, Cooperative, No apparent distress HEENT: Atraumatic Oral: Moist Mucosa Neck: Supple Lungs: Normal air movement Abdomen: Soft Extremities: No cyanosis Skin: Ulcer/ Wound Wound Measurements and Assessment WC - Nurse 1 - General Ulcer Measurement Start: 01/02/18 11:50 Freq: Status: Active Protocol: Activity Type Activity Date Activity User E-Sign Co-Sign Detail Recorded Client Recorded Date Recorded By Document 01/23/18 08:54 [id number] 01/23/18 08:57 01/23/18 08:54 Wound Center Nurse 1 [Ulcer Assessment] #6 lower mid abd -Combined with other wound No -Current Size (cm) - Length 9 -Current Size (cm) - Width 2.4 -Current Size (cm) - Depth 0.1 -Total Square Cm 21.6 -Date of Last Picture (Recall this 01/23/18 field) -Photo Taken Yes -Epithelialization Small 1-33% -Tunneling No -Undermining/Tunneling No -Circular Undermining No -Exudate Amt Medium (34-66%) -Exudate Type Serosanguineous -Wound Margin Distinct, Outline Attached -Granulation Amt Medium (34-66%) -Granulation Quality [address] [place] Red -Slough/Fibrin Yes -Necrosis Amt None Present (0 %) -Necrotic Tissue Type Adherent Slough -Structure Exposed None/Limited to Skin Breakdown -Texture (Amanda-wound Skin Appearance) No Abnormality -Moisture (Amanda-wound Skin Appearance No Abnormality ) Assessed -Color (Amanda-wound Skin Appearance) No Abnormality Assessed -Temperature (Amanda-wound Skin No Abnormality Appearance) (Pt Warm) -Tenderness on Palpation (Amanda-wound No Skin Appearance) -Ulcer Cleansing Rinsed/ Irrigated with Saline -Foul Odor after Cleansing No -Anesthetic Used 4% Lidocaine Solution #5 sacrum -Combined with other wound No -Current Size (cm) - Length 1.4 -Current Size (cm) - Width 3.3 -Current Size (cm) - Depth 2.4 -Total Square Cm 4.62 -Date of Last Picture (Recall this 01/23/18 field) -Photo Taken Yes -Epithelialization None Present -Tunneling No -Undermining/Tunneling No -Circular Undermining Yes -Exudate Amt Large (67-100%) -Exudate Type Yellow/Green -Wound Margin Distinct, Outline Attached -Granulation Amt None Present (0 %) -Granulation Quality N/A -Slough/Fibrin Yes -Necrosis Amt None Present (0 %) -Necrotic Tissue Type Adherent Slough -Structure Exposed None/Limited to Skin Breakdown -Texture (Amanda-wound Skin Appearance) Assessed Scarring -Moisture (Amanda-wound Skin Appearance No Abnormality ) Assessed -Color (Amanda-wound Skin Appearance) No Abnormality -Temperature (Amanda-wound Skin No Abnormality Appearance) (Pt Warm) -Tenderness on Palpation (Amanda-wound No Skin Appearance) -Ulcer Cleansing Rinsed/ Irrigated with Saline -Foul Odor after Cleansing No -Anesthetic Used 4% Lidocaine Solution [Edema Assessment] -Lower Limb Edema Present NA WC - Nurse 2 - General Ulcer CM Notes Start: 01/02/18 11:50 Freq: Status: Active Protocol: Activity Type Activity Date Activity User E-Sign Co-Sign Detail Recorded Client Recorded Date Recorded By Document 01/23/18 09:21 MW [id number] 01/23/18 09:27 MW 01/23/18 09:21 Wound Center Nurse 2 [Procedure/Treatment] #6 lower mid abd -Time 09:21 -Correct Patient Yes -Correct Side, Site, Position Yes -Correct Procedure Yes -Procedure Performed Yes -Type of Procedure Debridement -Clinical Debridement Subcutaneous -Post Debridement Size (cm) - Length 9.0 -Post Debridement Size (cm) - Width 2.5 -Post Debridement Size (cm) - Depth 0.2 -Total Square Cm 22.50 -Wound/Ulcer Outcome Not Healed -Ulcer Cleansing Rinsed/ Irrigated with Saline -Foul Odor after Cleansing No -Bioengineered Tissue No -Bleeding Controlled with Pressure -Treatment Response Procedure Tolerated Well #5 sacrum -Time 09:21 -Correct Patient Yes -Correct Side, Site, Position Yes -Correct Procedure Yes -Procedure Performed Yes -Type of Procedure Debridement -Clinical Debridement Subcutaneous -Post Debridement Size (cm) - Length 1.5 -Post Debridement Size (cm) - Width 3.2 -Post Debridement Size (cm) - Depth 1.7 -Total Square Cm 4.80 -Wound/Ulcer Outcome Not Healed -Ulcer Cleansing Rinsed/ Irrigated with Saline -Foul Odor after Cleansing No -Bioengineered Tissue No -Bleeding Controlled with Pressure -Treatment Response Procedure Tolerated Well [See Physician Procedure note for Specifics] Pain Scale: 0-10 Numeric [Pain] -Is Patient Pain Free? Yes Musculoskeletal: No Muscle Wasting Neurological: Cranial nerves II-XII grossly intact Psych/Mental Status: Normal Affect Debridement Note Post-Debridement Measurements/Treatment WC - Nurse 2 - General Ulcer CM Notes Start: 01/02/18 11:50 Freq: Status: Active Protocol: Activity Type Activity Date Activity User E-Sign Co-Sign Detail Recorded Client Recorded Date Recorded By Document 01/02/18 12:28 MW [id number] 01/02/18 12:38 MW Document 01/09/18 09:37 JS [id number] 01/09/18 09:47 JS Document 01/16/18 09:18 CS [id number] 01/16/18 09:23 CS Document 01/23/18 09:21 MW [id number] 01/23/18 09:27 MW 01/02/18 01/09/18 01/16/18 12:28 09:37 09:18 Wound Center Nurse 2 #6 lower mid abd -Time 12:29 09:37 09:18 -Correct Patient Yes Yes Yes -Correct Side, Site, Position Yes Yes Yes -Correct Procedure Yes Yes Yes -Procedure Performed Yes Yes Yes -Type of Procedure Debridement Debridement Debridement -Clinical Debridement Subcutaneous Subcutaneous Subcutaneous -Post Debridement Size (cm) - Length 9.0 5.9 9.5 -Post Debridement Size (cm) - Width 5.0 4.1 3.7 -Post Debridement Size (cm) - Depth 0.9 0.2 0.2 -Total Square Cm 45.00 24.19 35.15 -Wound/Ulcer Outcome Not Healed Not Healed Not Healed -Ulcer Cleansing Rinsed/ Rinsed/ Rinsed/ Irrigated with Irrigated with Irrigated with Saline Saline Saline -Foul Odor after Cleansing No No No -Bioengineered Tissue No No No -Bleeding Controlled with Pressure NA Pressure -Treatment Response Procedure Procedure Procedure Tolerated Well Tolerated Well Tolerated Well #5 sacrum -Time 12:30 09:38 09:19 -Correct Patient Yes Yes Yes -Correct Side, Site, Position Yes Yes Yes -Correct Procedure Yes Yes Yes -Procedure Performed Yes Yes Yes -Type of Procedure Debridement Debridement Debridement -Clinical Debridement Subcutaneous Subcutaneous Subcutaneous -Post Debridement Size (cm) - Length 1.6 1.5 1.4 -Post Debridement Size (cm) - Width 3.7 3.5 3.2 -Post Debridement Size (cm) - Depth 2.0 2.0 2.5 -Total Square Cm 5.92 5.25 4.48 -Wound/Ulcer Outcome Not Healed Not Healed Not Healed -Ulcer Cleansing Rinsed/ Rinsed/ Rinsed/ Irrigated with Irrigated with Irrigated with Saline Saline Saline -Foul Odor after Cleansing No No No -Bioengineered Tissue No No No -Bleeding Controlled with Pressure NA NA -Treatment Response Procedure Procedure Procedure Tolerated Well Tolerated Well Tolerated Well Pain Scale: 0-10 Numeric Is Patient Pain Free? Yes Yes Yes 01/23/18 09:21 Wound Center Nurse 2 #6 lower mid abd -Time 09:21 -Correct Patient Yes -Correct Side, Site, Position Yes -Correct Procedure Yes -Procedure Performed Yes -Type of Procedure Debridement -Clinical Debridement Subcutaneous -Post Debridement Size (cm) - Length 9.0 -Post Debridement Size (cm) - Width 2.5 -Post Debridement Size (cm) - Depth 0.2 -Total Square Cm 22.50 -Wound/Ulcer Outcome Not Healed -Ulcer Cleansing Rinsed/ Irrigated with Saline -Foul Odor after Cleansing No -Bioengineered Tissue No -Bleeding Controlled with Pressure -Treatment Response Procedure Tolerated Well #5 sacrum -Time 09:21 -Correct Patient Yes -Correct Side, Site, Position Yes -Correct Procedure Yes -Procedure Performed Yes -Type of Procedure Debridement -Clinical Debridement Subcutaneous -Post Debridement Size (cm) - Length 1.5 -Post Debridement Size (cm) - Width 3.2 -Post Debridement Size (cm) - Depth 1.7 -Total Square Cm 4.80 -Wound/Ulcer Outcome Not Healed -Ulcer Cleansing Rinsed/ Irrigated with Saline -Foul Odor after Cleansing No -Bioengineered Tissue No -Bleeding Controlled with Pressure -Treatment Response Procedure Tolerated Well Pain Scale: 0-10 Numeric Is Patient Pain Free? Yes Wound debrided: Sacral Ulcer Wound Grade/Stage: Stae IV Type of Debridement: Excisional debridement Anesthesia Used: 4% Lidocaine Solution Depth: Down to and including healthy tissue, in the subcutaneous layer Percentage of wound debrided: 100 Instrument Used: 5mm curette Tissue Removed: Slough and devitalized tissue Severity: Fat Layer Exposed Amount of bleeding with debridement: Mild Bleeding Controlled with: Pressure Patient tolerated procedure well - Additional Wound Wound debrided: Abdominal wound Wound Grade/Stage: Stage III Type of Debridement: Excisional debridement Anesthesia Used: 4% Lidocaine Solution Depth: Down to and including healthy tissue, in the subcutaneous layer Percentage of wound debrided: 100 Instrument Used: 5mm curette Tissue Removed: Biofilm and devitalized tissue Severity: Fat Layer Exposed Amount of bleeding with debridement: Mild Bleeding Controlled with: Pressure Patient tolerated procedure: Patient tolerated procedure well Assessment/Plan Active Problems (Last Updated 08/09/17 @ 08:06 by Liz Baker) Colovaginal fistula (Acute) Non-healing surgical wound (Acute) Pressure ulcer of sacral region, stage 4 (Chronic) Assessment: Stage IV sacral decubitus ulcer. Right heel stage III pressure ulcer. - Healed. Left heel stage III pressure ulcer - Healed. Post surgical abdominal wound Plan: Stable wound. Abdominal wound improving. Debridement done as documented above, procedure was well tolerated. Continue promogran with adaptic over top to the abdominal wound ( Change daily ) and continue Fibrochol to the sacral wound. Plan for sacral wound is surgical debridement after abdominal wound is healed. Continue increased protein intake. Follow-up in 1 week. Advised to call with any questions or concerns. This note was generated with [employer] dictation software. It may contain incorrect words, spelling, and punctuation that were not noted in checking the note before signing.
[2018-01-30 08:50] VITALS: BP 146/64; PULSE 98; RESP 16; TEMP 36.1; BMI 40.5
--- NOTE | 2018-01-30 09:30 | PCM.WC.PN ---
(1) Colovaginal fistula Status: Acute Current Visit: Yes Code(s): N82.4 - Other female intestinal-genital tract fistulae (2) Non-healing surgical wound Status: Acute Current Visit: Yes Code(s): T81.89XA - Other complications of procedures, not elsewhere classified, initial encounter (3) Pressure ulcer of sacral region, stage 4 Status: Chronic Current Visit: Yes Code(s): L89.154 - Pressure ulcer of sacral region, stage 4 Type of Wound Date of Service: 01/30/18 Chief Complaint: Stage IV sacral pressure ulceration; bilateral unstageable necrotic heel pressure ulcerations History of Wound: Ms. Chavez is a 67-year-old female who is well known to me in the wound center and was last seen here over. Most recently has been managed at the [facility] for a colovaginal fistula. Surgery was in 10 December. Status post surgery she had been in a residential. She has had routine dressings to her sacral decubitus ulcer and had a wound VAC to her abdominal surgical ulcer. She denies any new complaints at this time. Progress of Wound: Stable. No new complaints. - Physical Exam Vital Signs Temp Pulse Resp BP 96.9 F L 98 16 146/64 H 01/30/18 08:50 01/30/18 08:50 01/30/18 08:50 01/30/18 08:50 General: Alert, Oriented x3, Cooperative, No apparent distress HEENT: Atraumatic Oral: Moist Mucosa Neck: Supple Lungs: Normal air movement Cardiovascular: Regular rate Abdomen: Soft Extremities: No cyanosis Skin: Ulcer/ Wound Wound Measurements and Assessment WC - Nurse 1 - General Ulcer Measurement Start: 01/02/18 11:50 Freq: Status: Active Protocol: Activity Type Activity Date Activity User E-Sign Co-Sign Detail Recorded Client Recorded Date Recorded By Document 01/30/18 08:50 [id number] 01/30/18 09:12 01/30/18 08:50 Wound Center Nurse 1 [Ulcer Assessment] #6 lower mid abd -Combined with other wound No -Current Size (cm) - Length 8.2 -Current Size (cm) - Width 1.9 -Current Size (cm) - Depth 0.1 -Total Square Cm 15.58 -Photo Taken No -Epithelialization Small 1-33% -Tunneling No -Undermining/Tunneling No -Circular Undermining No -Exudate Amt Small (1-33%) -Exudate Type Serosanguineous -Wound Margin Flat & Intact -Granulation Amt Large (67-100%) -Granulation Quality Red -Slough/Fibrin Yes -Necrosis Amt Small (1-33%) -Necrotic Tissue Type Adherent Slough -Structure Exposed N/A -Texture (Amanda-wound Skin Appearance) Assessed Scarring -Moisture (Amanda-wound Skin Appearance No Abnormality ) Assessed -Color (Amanda-wound Skin Appearance) No Abnormality Assessed -Temperature (Amanda-wound Skin No Abnormality Appearance) (Pt Warm) -Tenderness on Palpation (Amanda-wound No Skin Appearance) -Ulcer Cleansing Wound Cleanser -Foul Odor after Cleansing No -Anesthetic Used 5% Lidocaine Gel #5 sacrum -Current Size (cm) - Length 1.6 -Current Size (cm) - Width 3.8 -Current Size (cm) - Depth 2.0 -Total Square Cm 6.08 -Photo Taken No -Epithelialization None Present -Tunneling No -Undermining/Tunneling Yes -Undermining/Tunneling Starts (O' 6 clock) -Undermining/Tunneling Ends (O'clock) 3 -Maximum Distance (cm) 3.2 -Circular Undermining No -Exudate Amt Medium (34-66%) -Exudate Type Yellow/Green -Wound Margin Distinct, Outline Attached -Granulation Amt Large (67-100%) -Granulation Quality [place] -Slough/Fibrin Yes -Necrosis Amt Small (1-33%) -Necrotic Tissue Type Adherent Slough -Structure Exposed N/A -Texture (Amanda-wound Skin Appearance) Assessed Scarring -Moisture (Amanda-wound Skin Appearance No Abnormality ) Assessed -Color (Amanda-wound Skin Appearance) No Abnormality Assessed -Temperature (Amanda-wound Skin No Abnormality Appearance) (Pt Warm) -Tenderness on Palpation (Amanda-wound No Skin Appearance) -Ulcer Cleansing Rinsed/ Irrigated with Saline -Foul Odor after Cleansing No -Anesthetic Used 4% Lidocaine Solution [Edema Assessment] -Lower Limb Edema Present No WC - Nurse 2 - General Ulcer CM Notes Start: 01/02/18 11:50 Freq: Status: Active Protocol: Activity Type Activity Date Activity User E-Sign Co-Sign Detail Recorded Client Recorded Date Recorded By Document 08/29/18 09:17 MW [id number] 01/30/18 09:27 MW 01/30/18 09:17 Wound Center Nurse 2 [Procedure/Treatment] #6 lower mid abd -Time 09:19 -Correct Patient Yes -Correct Side, Site, Position Yes -Correct Procedure Yes -Procedure Performed Yes -Type of Procedure Debridement -Clinical Debridement Subcutaneous -Post Debridement Size (cm) - Length 8.5 -Post Debridement Size (cm) - Width 1.7 -Post Debridement Size (cm) - Depth 0.1 -Total Square Cm 14.45 -Wound/Ulcer Outcome Not Healed -Ulcer Cleansing Rinsed/ Irrigated with Saline -Foul Odor after Cleansing No -Bioengineered Tissue No -Bleeding Controlled with Pressure -Treatment Response Procedure Tolerated Well #5 sacrum -Time 09:19 -Correct Patient Yes -Correct Side, Site, Position Yes -Correct Procedure Yes -Procedure Performed Yes -Type of Procedure Debridement -Clinical Debridement Subcutaneous -Post Debridement Size (cm) - Length 1.8 -Post Debridement Size (cm) - Width 3.5 -Post Debridement Size (cm) - Depth 1.5 -Total Square Cm 6.30 -Wound/Ulcer Outcome Not Healed -Ulcer Cleansing Rinsed/ Irrigated with Saline -Foul Odor after Cleansing No -Bioengineered Tissue No -Bleeding Controlled with Pressure -Other undermining; @9 3.5cm @1 2.5 cm -Treatment Response Procedure Tolerated Well [See Physician Procedure note for Specifics] Pain Scale: 0-10 Numeric [Pain] -Is Patient Pain Free? Yes Musculoskeletal: No Muscle Wasting Neurological: Cranial nerves II-XII grossly intact Psych/Mental Status: Normal Affect Debridement Note Post-Debridement Measurements/Treatment WC - Nurse 2 - General Ulcer CM Notes Start: 01/02/18 11:50 Freq: Status: Active Protocol: Activity Type Activity Date Activity User E-Sign Co-Sign Detail Recorded Client Recorded Date Recorded By Document 01/02/18 12:28 MW [id number] 01/02/18 12:38 MW Document 01/09/18 09:37 JS [id number] 01/09/18 09:47 JS Document 01/16/18 09:18 CS [id number] 01/16/18 09:23 CS Document 01/23/18 09:21 MW [id number] 01/23/18 09:27 MW Document 01/30/18 09:17 MW [id number] 01/30/18 09:27 MW 01/02/18 01/09/18 01/16/18 12:28 09:37 09:18 Wound Center Nurse 2 #6 lower mid abd -Time 12: 09:37 09:18 -Correct Patient Yes Yes Yes -Correct Side, Site, Position Yes Yes Yes -Correct Procedure Yes Yes Yes -Procedure Performed Yes Yes Yes -Type of Procedure Debridement Debridement Debridement -Clinical Debridement Subcutaneous Subcutaneous Subcutaneous -Post Debridement Size (cm) - Length 9.0 5.9 9.5 -Post Debridement Size (cm) - Width 5.0 4.1 3.7 -Post Debridement Size (cm) - Depth 0.9 0.2 0.2 -Total Square Cm 45.00 24.19 35.15 -Wound/Ulcer Outcome Not Healed Not Healed Not Healed -Ulcer Cleansing Rinsed/ Rinsed/ Rinsed/ Irrigated with Irrigated with Irrigated with Saline Saline Saline -Foul Odor after Cleansing No No No -Bioengineered Tissue No No No -Bleeding Controlled with Pressure NA Pressure -Treatment Response Procedure Procedure Procedure Tolerated Well Tolerated Well Tolerated Well #5 sacrum -Time 12:30 09:38 09:19 -Correct Patient Yes Yes Yes -Correct Side, Site, Position Yes Yes Yes -Correct Procedure Yes Yes Yes -Procedure Performed Yes Yes Yes -Type of Procedure Debridement Debridement Debridement -Clinical Debridement Subcutaneous Subcutaneous Subcutaneous -Post Debridement Size (cm) - Length 1.6 1.5 1.4 -Post Debridement Size (cm) - Width 3.7 3.5 3.2 -Post Debridement Size (cm) - Depth 2.0 2.0 2.5 -Total Square Cm 5.92 5.25 4.48 -Wound/Ulcer Outcome Not Healed Not Healed Not Healed -Ulcer Cleansing Rinsed/ Rinsed/ Rinsed/ Irrigated with Irrigated with Irrigated with Saline Saline Saline -Foul Odor after Cleansing No No No -Bioengineered Tissue No No No -Bleeding Controlled with Pressure NA NA -Other -Treatment Response Procedure Procedure Procedure Tolerated Well Tolerated Well Tolerated Well Pain Scale: 0-10 Numeric Is Patient Pain Free? Yes Yes Yes 01/23/18 01/30/18 09:21 09:17 Wound Center Nurse 2 #6 lower mid abd -Time 09:21 09:19 -Correct Patient Yes Yes -Correct Side, Site, Position Yes Yes -Correct Procedure Yes Yes -Procedure Performed Yes Yes -Type of Procedure Debridement Debridement -Clinical Debridement Subcutaneous Subcutaneous -Post Debridement Size (cm) - Length 9.0 8.5 -Post Debridement Size (cm) - Width 2.5 1.7 -Post Debridement Size (cm) - Depth 0.2 0.1 -Total Square Cm 22.50 14.45 -Wound/Ulcer Outcome Not Healed Not Healed -Ulcer Cleansing Rinsed/ Rinsed/ Irrigated with Irrigated with Saline Saline -Foul Odor after Cleansing No No -Bioengineered Tissue No No -Bleeding Controlled with Pressure Pressure -Treatment Response Procedure Procedure Tolerated Well Tolerated Well #5 sacrum -Time 09:21 09:19 -Correct Patient Yes Yes -Correct Side, Site, Position Yes Yes -Correct Procedure Yes Yes -Procedure Performed Yes Yes -Type of Procedure Debridement Debridement -Clinical Debridement Subcutaneous Subcutaneous -Post Debridement Size (cm) - Length 1.5 1.8 -Post Debridement Size (cm) - Width 3.2 3.5 -Post Debridement Size (cm) - Depth 1.7 1.5 -Total Square Cm 4.80 6.30 -Wound/Ulcer Outcome Not Healed Not Healed -Ulcer Cleansing Rinsed/ Rinsed/ Irrigated with Irrigated with Saline Saline -Foul Odor after Cleansing No No -Bioengineered Tissue No No -Bleeding Controlled with Pressure Pressure -Other undermining; @9 3.5cm @1 2.5 cm -Treatment Response Procedure Procedure Tolerated Well Tolerated Well Pain Scale: 0-10 Numeric Is Patient Pain Free? Yes Yes Wound debrided: Sacral ulcer Wound Grade/Stage: Stage IV Type of Debridement: Excisional debridement Anesthesia Used: 4% Lidocaine Solution Depth: Down to and including healthy tissue, in the subcutaneous layer Percentage of wound debrided: 100 Instrument Used: 5mm curette Tissue Removed: Slough and devitalized tissue Severity: Fat Layer Exposed Amount of bleeding with debridement: Mild Bleeding Controlled with: Pressure Patient tolerated procedure well - Additional Wound Wound debrided: Abdominal Wound Grade/Stage: Stage II Type of Debridement: Excisional debridement Anesthesia Used: 4% Lidocaine Solution Depth: Down to and including healthy tissue, in the subcutaneous layer Percentage of wound debrided: 100 Instrument Used: 5mm curette Tissue Removed: Slough and devitalized tissue Severity: Fat Layer Exposed Amount of bleeding with debridement: Mild Bleeding Controlled with: Pressure Patient tolerated procedure: Patient tolerated procedure well Assessment/Plan Active Problems (Last Updated 08/09/17 @ 08:06 by Liz Baker) Colovaginal fistula (Acute) Non-healing surgical wound (Acute) Pressure ulcer of sacral region, stage 4 (Chronic) Assessment: Stage IV sacral decubitus ulcer. Right heel stage III pressure ulcer. - Healed. Left heel stage III pressure ulcer - Healed. Post surgical abdominal wound Plan: Improving abdominal wound. Sacarl ulcer is stable. Debridement done as documented above, procedure was well tolerated. Continue promogran with adaptic over top to the abdominal wound ( Change every other day ) and continue Fibrochol to the sacral wound. Plan for sacral wound is surgical debridement after abdominal wound is healed. Reschedule visit with Dr. Hansen. Continue increased protein intake. Follow-up in 1 week. Advised to call with any questions or concerns. This note was generated with [employer] software. It may contain incorrect words, spelling, and punctuation that were not noted in checking the note before signing.
--- NOTE | 2018-01-30 09:34 | PN.PCM_ITS ---
(1) Colovaginal fistula Status: Acute Current Visit: Yes Code(s): N82.4 - Other female intestinal- genital tract fistulae (2) Non-healing surgical wound Status: Acute Current Visit: Yes Code(s): T81.89XA - Other complications of procedures, not elsewhere classified, initial encounter (3) Pressure ulcer of sacral region, stage 4 Status: Chronic Current Visit: Yes Code(s): L89.154 - Pressure ulcer of sacral region, stage 4 Type of Wound Date of Service: 01/30/18 Chief Complaint: Stage IV sacral pressure ulceration; bilateral unstageable necrotic heel pressure ulcerations History of Wound: Ms. Chavez is a 67-year-old female who is well known to me in the wound center and was last seen here over. Most recently has been managed at the [facility] for a colovaginal fistula. Surgery was in 10 December. Status post surgery she had been in a alf. She has had routine dressings to her sacral decubitus ulcer and had a wound VAC to her abdominal surgical ulcer. She denies any new complaints at this time. Progress of Wound: Stable. No new complaints. - Physical Exam Vital Signs Temp Pulse Resp BP 96.9 F L 98 16 146/64 H 01/30/18 08:50 01/30/18 08:50 01/30/18 08:50 01/30/18 08:50 General: Alert, Oriented x3, Cooperative, No apparent distress HEENT: Atraumatic Oral: Moist Mucosa Neck: Supple Lungs: Normal air movement Cardiovascular: Regular rate Abdomen: Soft Extremities: No cyanosis Skin: Ulcer/ Wound Wound Measurements and Assessment WC - Nurse 1 - General Ulcer Measurement Start: 01/02/18 11:50 Freq: Status: Active Protocol: Activity Type Activity Date Activity User E-Sign Co-Sign Detail Recorded Client Recorded Date Recorded By Document 01/30/18 08:50 [id number] 01/30/18 09:12 01/30/18 08:50 Wound Center Nurse 1 [Ulcer Assessment] #6 lower mid abd -Combined with other wound No -Current Size (cm) - Length 8.2 -Current Size (cm) - Width 1.9 -Current Size (cm) - Depth 0.1 -Total Square Cm 15.58 -Photo Taken No -Epithelialization Small 1-33% -Tunneling No -Undermining/Tunneling No -Circular Undermining No -Exudate Amt Small (1-33%) -Exudate Type Serosanguineous -Wound Margin Flat & Intact -Granulation Amt Large (67-100%) -Granulation Quality Red -Slough/Fibrin Yes -Necrosis Amt Small (1-33%) -Necrotic Tissue Type Adherent Slough -Structure Exposed N/A -Texture (Amanda-wound Skin Appearance) Assessed Scarring -Moisture (Amanda-wound Skin Appearance No Abnormality ) Assessed -Color (Amanda-wound Skin Appearance) No Abnormality Assessed -Temperature (Amanda-wound Skin No Abnormality Appearance) (Pt Warm) -Tenderness on Palpation (Amanda-wound No Skin Appearance) -Ulcer Cleansing Wound Cleanser -Foul Odor after Cleansing No -Anesthetic Used 5% Lidocaine Gel #5 sacrum -Current Size (cm) - Length 1.6 -Current Size (cm) - Width 3.8 -Current Size (cm) - Depth 2.0 -Total Square Cm 6.08 -Photo Taken No -Epithelialization None Present -Tunneling No -Undermining/Tunneling Yes -Undermining/Tunneling Starts (O' 6 clock) -Undermining/Tunneling Ends (O'clock) 3 -Maximum Distance (cm) 3.2 -Circular Undermining No -Exudate Amt Medium (34-66%) -Exudate Type Yellow/Green -Wound Margin Distinct, Outline Attached -Granulation Amt Large (67-100%) -Granulation Quality [place] -Slough/Fibrin Yes -Necrosis Amt Small (1-33%) -Necrotic Tissue Type Adherent Slough -Structure Exposed N/A -Texture (Amanda-wound Skin Appearance) Assessed Scarring -Moisture (Amanda-wound Skin Appearance No Abnormality ) Assessed -Color (Amanda-wound Skin Appearance) No Abnormality Assessed -Temperature (Amanda-wound Skin No Abnormality Appearance) (Pt Warm) -Tenderness on Palpation (Amanda-wound No Skin Appearance) -Ulcer Cleansing Rinsed/ Irrigated with Saline -Foul Odor after Cleansing No -Anesthetic Used 4% Lidocaine Solution [Edema Assessment] -Lower Limb Edema Present No WC - Nurse 2 - General Ulcer CM Notes Start: 01/02/18 11:50 Freq: Status: Active Protocol: Activity Type Activity Date Activity User E-Sign Co-Sign Detail Recorded Client Recorded Date Recorded By Document 08/29/18 09:17 MW [id number] 01/30/18 09:27 MW 01/30/18 09:17 Wound Center Nurse 2 [Procedure/Treatment] #6 lower mid abd -Time 09:19 -Correct Patient Yes -Correct Side, Site, Position Yes -Correct Procedure Yes -Procedure Performed Yes -Type of Procedure Debridement -Clinical Debridement Subcutaneous -Post Debridement Size (cm) - Length 8.5 -Post Debridement Size (cm) - Width 1.7 -Post Debridement Size (cm) - Depth 0.1 -Total Square Cm 14.45 -Wound/Ulcer Outcome Not Healed -Ulcer Cleansing Rinsed/ Irrigated with Saline -Foul Odor after Cleansing No -Bioengineered Tissue No -Bleeding Controlled with Pressure -Treatment Response Procedure Tolerated Well #5 sacrum -Time 09:19 -Correct Patient Yes -Correct Side, Site, Position Yes -Correct Procedure Yes -Procedure Performed Yes -Type of Procedure Debridement -Clinical Debridement Subcutaneous -Post Debridement Size (cm) - Length 1.8 -Post Debridement Size (cm) - Width 3.5 -Post Debridement Size (cm) - Depth 1.5 -Total Square Cm 6.30 -Wound/Ulcer Outcome Not Healed -Ulcer Cleansing Rinsed/ Irrigated with Saline -Foul Odor after Cleansing No -Bioengineered Tissue No -Bleeding Controlled with Pressure -Other undermining; @9 3.5cm @1 2.5 cm -Treatment Response Procedure Tolerated Well [See Physician Procedure note for Specifics] Pain Scale: 0-10 Numeric [Pain] -Is Patient Pain Free? Yes Musculoskeletal: No Muscle Wasting Neurological: Cranial nerves II-XII grossly intact Psych/Mental Status: Normal Affect Debridement Note Post-Debridement Measurements/Treatment WC - Nurse 2 - General Ulcer CM Notes Start: 01/02/18 11:50 Freq: Status: Active Protocol: Activity Type Activity Date Activity User E-Sign Co-Sign Detail Recorded Client Recorded Date Recorded By Document 01/02/18 12:28 MW [id number] 01/02/18 12:38 MW Document 01/09/18 09:37 JS [id number] 01/09/18 09:47 JS Document 01/16/18 09:18 CS [id number] 01/16/18 09:23 CS Document 01/23/18 09:21 MW [id number] 01/23/18 09:27 MW Document 01/30/18 09:17 MW [id number] 01/30/18 09:27 MW 01/02/18 01/09/18 01/16/18 12:28 09:37 09:18 Wound Center Nurse 2 #6 lower mid abd -Time 12: 09:37 09:18 -Correct Patient Yes Yes Yes -Correct Side, Site, Position Yes Yes Yes -Correct Procedure Yes Yes Yes -Procedure Performed Yes Yes Yes -Type of Procedure Debridement Debridement Debridement -Clinical Debridement Subcutaneous Subcutaneous Subcutaneous -Post Debridement Size (cm) - Length 9.0 5.9 9.5 -Post Debridement Size (cm) - Width 5.0 4.1 3.7 -Post Debridement Size (cm) - Depth 0.9 0.2 0.2 -Total Square Cm 45.00 24.19 35.15 -Wound/Ulcer Outcome Not Healed Not Healed Not Healed -Ulcer Cleansing Rinsed/ Rinsed/ Rinsed/ Irrigated with Irrigated with Irrigated with Saline Saline Saline -Foul Odor after Cleansing No No No -Bioengineered Tissue No No No -Bleeding Controlled with Pressure NA Pressure -Treatment Response Procedure Procedure Procedure Tolerated Well Tolerated Well Tolerated Well #5 sacrum -Time 12:30 09:38 09:19 -Correct Patient Yes Yes Yes -Correct Side, Site, Position Yes Yes Yes -Correct Procedure Yes Yes Yes -Procedure Performed Yes Yes Yes -Type of Procedure Debridement Debridement Debridement -Clinical Debridement Subcutaneous Subcutaneous Subcutaneous -Post Debridement Size (cm) - Length 1.6 1.5 1.4 -Post Debridement Size (cm) - Width 3.7 3.5 3.2 -Post Debridement Size (cm) - Depth 2.0 2.0 2.5 -Total Square Cm 5.92 5.25 4.48 -Wound/Ulcer Outcome Not Healed Not Healed Not Healed -Ulcer Cleansing Rinsed/ Rinsed/ Rinsed/ Irrigated with Irrigated with Irrigated with Saline Saline Saline -Foul Odor after Cleansing No No No -Bioengineered Tissue No No No -Bleeding Controlled with Pressure NA NA -Other -Treatment Response Procedure Procedure Procedure Tolerated Well Tolerated Well Tolerated Well Pain Scale: 0-10 Numeric Is Patient Pain Free? Yes Yes Yes 01/23/18 01/30/18 09:21 09:17 Wound Center Nurse 2 #6 lower mid abd -Time 09:21 09:19 -Correct Patient Yes Yes -Correct Side, Site, Position Yes Yes -Correct Procedure Yes Yes -Procedure Performed Yes Yes -Type of Procedure Debridement Debridement -Clinical Debridement Subcutaneous Subcutaneous -Post Debridement Size (cm) - Length 9.0 8.5 -Post Debridement Size (cm) - Width 2.5 1.7 -Post Debridement Size (cm) - Depth 0.2 0.1 -Total Square Cm 22.50 14.45 -Wound/Ulcer Outcome Not Healed Not Healed -Ulcer Cleansing Rinsed/ Rinsed/ Irrigated with Irrigated with Saline Saline -Foul Odor after Cleansing No No -Bioengineered Tissue No No -Bleeding Controlled with Pressure Pressure -Treatment Response Procedure Procedure Tolerated Well Tolerated Well #5 sacrum -Time 09:21 09:19 -Correct Patient Yes Yes -Correct Side, Site, Position Yes Yes -Correct Procedure Yes Yes -Procedure Performed Yes Yes -Type of Procedure Debridement Debridement -Clinical Debridement Subcutaneous Subcutaneous -Post Debridement Size (cm) - Length 1.5 1.8 -Post Debridement Size (cm) - Width 3.2 3.5 -Post Debridement Size (cm) - Depth 1.7 1.5 -Total Square Cm 4.80 6.30 -Wound/Ulcer Outcome Not Healed Not Healed -Ulcer Cleansing Rinsed/ Rinsed/ Irrigated with Irrigated with Saline Saline -Foul Odor after Cleansing No No -Bioengineered Tissue No No -Bleeding Controlled with Pressure Pressure -Other undermining; @9 3.5cm @1 2.5 cm -Treatment Response Procedure Procedure Tolerated Well Tolerated Well Pain Scale: 0-10 Numeric Is Patient Pain Free? Yes Yes Wound debrided: Sacral ulcer Wound Grade/Stage: Stage IV Type of Debridement: Excisional debridement Anesthesia Used: 4% Lidocaine Solution Depth: Down to and including healthy tissue, in the subcutaneous layer Percentage of wound debrided: 100 Instrument Used: 5mm curette Tissue Removed: Slough and devitalized tissue Severity: Fat Layer Exposed Amount of bleeding with debridement: Mild Bleeding Controlled with: Pressure Patient tolerated procedure well - Additional Wound Wound debrided: Abdominal Wound Grade/Stage: Stage II Type of Debridement: Excisional debridement Anesthesia Used: 4% Lidocaine Solution Depth: Down to and including healthy tissue, in the subcutaneous layer Percentage of wound debrided: 100 Instrument Used: 5mm curette Tissue Removed: Slough and devitalized tissue Severity: Fat Layer Exposed Amount of bleeding with debridement: Mild Bleeding Controlled with: Pressure Patient tolerated procedure: Patient tolerated procedure well Assessment/Plan Active Problems (Last Updated 08/09/17 @ 08:06 by Liz Baker) Colovaginal fistula (Acute) Non-healing surgical wound (Acute) Pressure ulcer of sacral region, stage 4 (Chronic) Assessment: Stage IV sacral decubitus ulcer. Right heel stage III pressure ulcer. - Healed. Left heel stage III pressure ulcer - Healed. Post surgical abdominal wound Plan: Improving abdominal wound. Sacarl ulcer is stable. Debridement done as documented above, procedure was well tolerated. Continue promogran with adaptic over top to the abdominal wound ( Change every other day ) and continue Fibrochol to the sacral wound. Plan for sacral wound is surgical debridement after abdominal wound is healed. Reschedule visit with Dr. Hansen. Continue increased protein intake. Follow-up in 1 week. Advised to call with any questions or concerns. This note was generated with [employer] software. It may contain incorrect words, spelling, and punctuation that were not noted in checking the note before signing.
== END 2018-02-01 23:59 ==
LOC: WC 09:00
PROVIDERS: Family Provider Family Medicine Geriatric Medicine; PCP Family Medicine Geriatric Medicine; Visit Provider Internal Medicine
DX: L89.154 Pressure ulcer of sacral region, stage 4 (principal); N82.4 Other female intestinal-genital tract fistulae; T81.89XA Other complications of procedures, not elsewhere classified, initial encounter; Y83.8 Other surgical procedures as the cause of abnormal reaction of the patient, or of later complication, without mention of misadventure at the time of the procedure; L89.613 Pressure ulcer of right heel, stage 3
CPT/HCPCS: 11042; 11045; 87070; 87075; 87077; 87186; 87205; 97605

== ENCOUNTER 2018-02-27 09:00 | Outpatient (RCR) | payer MEDICARE, OTHER, SELFPAY ==
[2018-02-02 00:46] VITALS: BP 146/64; PULSE 98; RESP 16; TEMP 36.1; BMI 40.5
[2018-02-06 09:05] VITALS: BP 134/74; PULSE 97; RESP 16; TEMP 36.2; BMI 40.5
--- NOTE | 2018-02-06 09:35 | PCM.WC.PN ---
(1) Non-healing surgical wound Status: Acute Current Visit: Yes Code(s): T81.89XA - Other complications of procedures, not elsewhere classified, initial encounter (2) Pressure ulcer of sacral region, stage 4 Status: Chronic Current Visit: Yes Code(s): L89.154 - Pressure ulcer of sacral region, stage 4 (3) Morbid obesity with BMI of 40.0-44.9, adult Status: Acute Current Visit: No Code(s): E66.01 - Morbid (severe) obesity due to excess calories; Z68.41 - Body mass index (BMI) 40.0-44.9, adult Type of Wound Date of Service: 02/06/18 Chief Complaint: Stage IV sacral pressure ulceration; bilateral unstageable necrotic heel pressure ulcerations History of Wound: Ms. Chavez is a 67-year-old female who is well known to me in the wound center and was last seen here over. Most recently has been managed at the [facility] for a colovaginal fistula. Surgery was in 10 December. Status post surgery she had been in a senior living. She has had routine dressings to her sacral decubitus ulcer and had a wound VAC to her abdominal surgical ulcer. She denies any new complaints at this time. Progress of Wound: Stable. No new complaints. - Physical Exam Vital Signs Temp Pulse Resp BP 97.1 F L 97 16 134/74 H 02/06/18 09:05 02/06/18 09:05 02/06/18 09:05 02/06/18 09:05 General: Alert, Oriented x3, Cooperative, No apparent distress HEENT: Atraumatic Oral: Moist Mucosa Neck: Supple Lungs: Normal air movement Cardiovascular: Regular rate Abdomen: Soft, Non Tender Extremities: No cyanosis Skin: Ulcer/ Wound Wound Measurements and Assessment WC - Nurse 1 - General Ulcer Measurement Start: 02/06/18 09:05 Freq: Status: Active Protocol: Activity Type Activity Date Activity User E-Sign Co-Sign Detail Recorded Client Recorded Date Recorded By Document 02/06/18 09:05 [id number] 02/06/18 09:08 02/06/18 09:05 Wound Center Nurse 1 [Ulcer Assessment] #6 lower mid abd -Combined with other wound No -Current Size (cm) - Length 8.6 -Current Size (cm) - Width 1.8 -Current Size (cm) - Depth 0.1 -Total Square Cm 15.48 -Photo Taken No -Epithelialization Small 1-33% -Tunneling No -Undermining/Tunneling No -Circular Undermining No -Exudate Amt Medium (34-66%) -Exudate Type Serosanguineous -Wound Margin Distinct, Outline Attached -Granulation Amt Medium (34-66%) -Granulation Quality [place] Red -Slough/Fibrin Yes -Necrosis Amt None Present (0 %) -Necrotic Tissue Type Adherent Slough -Structure Exposed None/Limited to Skin Breakdown -Texture (Amanda-wound Skin Appearance) Assessed Scarring -Moisture (Amanda-wound Skin Appearance No Abnormality ) Assessed -Color (Amanda-wound Skin Appearance) No Abnormality Assessed -Temperature (Amanda-wound Skin No Abnormality Appearance) (Pt Warm) -Tenderness on Palpation (Amanda-wound Yes Skin Appearance) -Ulcer Cleansing Rinsed/ Irrigated with Saline -Foul Odor after Cleansing No -Anesthetic Used 4% Lidocaine Solution #5 sacrum -Combined with other wound No -Current Size (cm) - Length 1.5 -Current Size (cm) - Width 3.6 -Current Size (cm) - Depth 3.0 -Total Square Cm 5.40 -Photo Taken No -Epithelialization None Present -Tunneling No -Undermining/Tunneling No -Circular Undermining No -Exudate Amt Medium (34-66%) -Exudate Type Serosanguineous -Wound Margin Distinct, Outline Attached -Granulation Amt Large (67-100%) -Granulation Quality [place] Red -Slough/Fibrin Yes -Necrosis Amt None Present (0 %) -Necrotic Tissue Type Adherent Slough -Texture (Amanda-wound Skin Appearance) No Abnormality Assessed -Moisture (Amanda-wound Skin Appearance No Abnormality ) Assessed -Color (Amanda-wound Skin Appearance) No Abnormality Assessed -Temperature (Amanda-wound Skin No Abnormality Appearance) (Pt Warm) -Tenderness on Palpation (Amanda-wound Yes Skin Appearance) -Ulcer Cleansing Wound Cleanser -Foul Odor after Cleansing No -Anesthetic Used 4% Lidocaine Solution [Edema Assessment] -Lower Limb Edema Present NA WC - Nurse 2 - General Ulcer CM Notes Start: 02/06/18 09:05 Freq: Status: Active Protocol: Activity Type Activity Date Activity User E-Sign Co-Sign Detail Recorded Client Recorded Date Recorded By Document 02/06/18 09:24 MW [id number] 02/06/18 09:29 MW 02/06/18 09:24 Wound Center Nurse 2 [Procedure/Treatment] #6 lower mid abd -Time 09:24 -Correct Patient Yes -Correct Side, Site, Position Yes -Correct Procedure Yes -Procedure Performed Yes -Type of Procedure Debridement -Clinical Debridement Subcutaneous -Post Debridement Size (cm) - Length 7.5 -Post Debridement Size (cm) - Width 1.7 -Post Debridement Size (cm) - Depth 0.1 -Total Square Cm 12.75 -Wound/Ulcer Outcome Not Healed -Ulcer Cleansing Rinsed/ Irrigated with Saline -Foul Odor after Cleansing No -Bioengineered Tissue No -Bleeding Controlled with Pressure -Treatment Response Procedure Tolerated Well #5 sacrum -Time 09:25 -Correct Patient Yes -Correct Side, Site, Position Yes -Correct Procedure Yes -Procedure Performed Yes -Type of Procedure Debridement -Clinical Debridement Subcutaneous -Post Debridement Size (cm) - Length 1.3 -Post Debridement Size (cm) - Width 3.4 -Post Debridement Size (cm) - Depth 1.5 -Total Square Cm 4.42 -Wound/Ulcer Outcome Not Healed -Ulcer Cleansing Rinsed/ Irrigated with Saline -Foul Odor after Cleansing No -Bioengineered Tissue No -Bleeding Controlled with Pressure -Treatment Response Procedure Tolerated Well [See Physician Procedure note for Specifics] Pain Scale: 0-10 Numeric [Pain] -Is Patient Pain Free? Yes Musculoskeletal: No Muscle Wasting Neurological: Cranial nerves II-XII grossly intact Psych/Mental Status: Normal Affect Debridement Note Post-Debridement Measurements/Treatment WC - Nurse 2 - General Ulcer CM Notes Start: 02/06/18 09:05 Freq: Status: Active Protocol: Activity Type Activity Date Activity User E-Sign Co-Sign Detail Recorded Client Recorded Date Recorded By Document 02/06/18 09:24 MW [id number] 02/06/18 09:29 MW 02/06/18 09:24 Wound Center Nurse 2 #6 lower mid abd -Time 09:24 -Correct Patient Yes -Correct Side, Site, Position Yes -Correct Procedure Yes -Procedure Performed Yes -Type of Procedure Debridement -Clinical Debridement Subcutaneous -Post Debridement Size (cm) - Length 7.5 -Post Debridement Size (cm) - Width 1.7 -Post Debridement Size (cm) - Depth 0.1 -Total Square Cm 12.75 -Wound/Ulcer Outcome Not Healed -Ulcer Cleansing Rinsed/ Irrigated with Saline -Foul Odor after Cleansing No -Bioengineered Tissue No -Bleeding Controlled with Pressure -Treatment Response Procedure Tolerated Well #5 sacrum -Time 09:25 -Correct Patient Yes -Correct Side, Site, Position Yes -Correct Procedure Yes -Procedure Performed Yes -Type of Procedure Debridement -Clinical Debridement Subcutaneous -Post Debridement Size (cm) - Length 1.3 -Post Debridement Size (cm) - Width 3.4 -Post Debridement Size (cm) - Depth 1.5 -Total Square Cm 4.42 -Wound/Ulcer Outcome Not Healed -Ulcer Cleansing Rinsed/ Irrigated with Saline -Foul Odor after Cleansing No -Bioengineered Tissue No -Bleeding Controlled with Pressure -Treatment Response Procedure Tolerated Well Pain Scale: 0-10 Numeric Is Patient Pain Free? Yes Wound debrided: Abdominal wound Wound Grade/Stage: Stage III Type of Debridement: Excisional debridement Anesthesia Used: 4% Lidocaine Solution Depth: Down to and including healthy tissue, in the subcutaneous layer Percentage of wound debrided: 100 Instrument Used: 5mm curette Tissue Removed: Slough and devitalized tissue Severity: Fat Layer Exposed Amount of bleeding with debridement: Mild Bleeding Controlled with: Pressure Patient tolerated procedure well - Additional Wound Wound debrided: Sacral Ulcer Wound Grade/Stage: Stage IV Type of Debridement: Excisional debridement Anesthesia Used: 4% Lidocaine Solution Depth: Down to and including healthy tissue, in the subcutaneous layer Percentage of wound debrided: 100 Instrument Used: 5mm curette Tissue Removed: Slough and devitalized tissue Severity: Fat Layer Exposed Amount of bleeding with debridement: Mild Bleeding Controlled with: Pressure Patient tolerated procedure: Patient tolerated procedure well Assessment/Plan Active Problems (Last Updated 08/09/17 @ 08:06 by Liz Baker) Non-healing surgical wound (Acute) Pressure ulcer of sacral region, stage 4 (Chronic) Assessment: Stage IV sacral decubitus ulcer. Right heel stage III pressure ulcer. - Healed. Left heel stage III pressure ulcer - Healed. Post surgical abdominal wound Plan: Improving abdominal wound. Sacarl ulcer is stable. Debridement done as documented above, procedure was well tolerated. Continue promogran with adaptic over top to the abdominal wound ( Change every other day ) and continue Fibrocol to the sacral wound. Plan for sacral wound is surgical debridement after abdominal wound is healed. Yet to reschedule visit with Dr. Hansen. Continue increased protein intake. Follow-up in 1 week. Advised to call with any questions or concerns. This note was generated with [employer] dictation software. It may contain incorrect words, spelling, and punctuation that were not noted in checking the note before signing.
--- NOTE | 2018-02-06 09:39 | PN.PCM_ITS ---
(1) Non-healing surgical wound Status: Acute Current Visit: Yes Code(s): T81.89XA - Other complications of procedures, not elsewhere classified, initial encounter (2) Pressure ulcer of sacral region, stage 4 Status: Chronic Current Visit: Yes Code(s): L89.154 - Pressure ulcer of sacral region, stage 4 (3) Morbid obesity with BMI of 40.0-44.9, adult Status: Acute Current Visit: No Code(s): E66.01 - Morbid (severe) obesity due to excess calories; Z68.41 - Body mass index (BMI) 40.0-44.9, adult Type of Wound Date of Service: 02/06/18 Chief Complaint: Stage IV sacral pressure ulceration; bilateral unstageable necrotic heel pressure ulcerations History of Wound: Ms. Chavez is a 67-year-old female who is well known to me in the wound center and was last seen here over. 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 Surgery was in 10 December. Status post surgery she had been in a fci. She has had routine dressings to her sacral decubitus ulcer and had a wound VAC to her abdominal surgical ulcer. She denies any new complaints at this time. Progress of Wound: Stable. No new complaints. - Physical Exam Vital Signs Temp Pulse Resp BP 97.1 F L 97 16 134/74 H 02/06/18 09:05 02/06/18 09:05 02/06/18 09:05 02/06/18 09:05 General: Alert, Oriented x3, Cooperative, No apparent distress HEENT: Atraumatic Oral: Moist Mucosa Neck: Supple Lungs: Normal air movement Cardiovascular: Regular rate Abdomen: Soft, Non Tender Extremities: No cyanosis Skin: Ulcer/ Wound Wound Measurements and Assessment WC - Nurse 1 - General Ulcer Measurement Start: 02/06/18 09:05 Freq: Status: Active Protocol: Activity Type Activity Date Activity User E-Sign Co-Sign Detail Recorded Client Recorded Date Recorded By Document 02/06/18 09:05 [id number] 02/06/18 09:08 02/06/18 09:05 Wound Center Nurse 1 [Ulcer Assessment] #6 lower mid abd -Combined with other wound No -Current Size (cm) - Length 8.6 -Current Size (cm) - Width 1.8 -Current Size (cm) - Depth 0.1 -Total Square Cm 15.48 -Photo Taken No -Epithelialization Small 1-33% -Tunneling No -Undermining/Tunneling No -Circular Undermining No -Exudate Amt Medium (34-66%) -Exudate Type Serosanguineous -Wound Margin Distinct, Outline Attached -Granulation Amt Medium (34-66%) -Granulation Quality [place] Red -Slough/Fibrin Yes -Necrosis Amt None Present (0 %) -Necrotic Tissue Type Adherent Slough -Structure Exposed None/Limited to Skin Breakdown -Texture (Amanda-wound Skin Appearance) Assessed Scarring -Moisture (Amanda-wound Skin Appearance No Abnormality ) Assessed -Color (Amanda-wound Skin Appearance) No Abnormality Assessed -Temperature (Amanda-wound Skin No Abnormality Appearance) (Pt Warm) -Tenderness on Palpation (Amanda-wound Yes Skin Appearance) -Ulcer Cleansing Rinsed/ Irrigated with Saline -Foul Odor after Cleansing No -Anesthetic Used 4% Lidocaine Solution #5 sacrum -Combined with other wound No -Current Size (cm) - Length 1.5 -Current Size (cm) - Width 3.6 -Current Size (cm) - Depth 3.0 -Total Square Cm 5.40 -Photo Taken No -Epithelialization None Present -Tunneling No -Undermining/Tunneling No -Circular Undermining No -Exudate Amt Medium (34-66%) -Exudate Type Serosanguineous -Wound Margin Distinct, Outline Attached -Granulation Amt Large (67-100%) -Granulation Quality [place] Red -Slough/Fibrin Yes -Necrosis Amt None Present (0 %) -Necrotic Tissue Type Adherent Slough -Texture (Amanda-wound Skin Appearance) No Abnormality Assessed -Moisture (Amanda-wound Skin Appearance No Abnormality ) Assessed -Color (Amanda-wound Skin Appearance) No Abnormality Assessed -Temperature (Amanda-wound Skin No Abnormality Appearance) (Pt Warm) -Tenderness on Palpation (Amanda-wound Yes Skin Appearance) -Ulcer Cleansing Wound Cleanser -Foul Odor after Cleansing No -Anesthetic Used 4% Lidocaine Solution [Edema Assessment] -Lower Limb Edema Present NA WC - Nurse 2 - General Ulcer CM Notes Start: 02/06/18 09:05 Freq: Status: Active Protocol: Activity Type Activity Date Activity User E-Sign Co-Sign Detail Recorded Client Recorded Date Recorded By Document 02/06/18 09:24 MW [id number] 02/06/18 09:29 MW 02/06/18 09:24 Wound Center Nurse 2 [Procedure/Treatment] #6 lower mid abd -Time 09:24 -Correct Patient Yes -Correct Side, Site, Position Yes -Correct Procedure Yes -Procedure Performed Yes -Type of Procedure Debridement -Clinical Debridement Subcutaneous -Post Debridement Size (cm) - Length 7.5 -Post Debridement Size (cm) - Width 1.7 -Post Debridement Size (cm) - Depth 0.1 -Total Square Cm 12.75 -Wound/Ulcer Outcome Not Healed -Ulcer Cleansing Rinsed/ Irrigated with Saline -Foul Odor after Cleansing No -Bioengineered Tissue No -Bleeding Controlled with Pressure -Treatment Response Procedure Tolerated Well #5 sacrum -Time 09:25 -Correct Patient Yes -Correct Side, Site, Position Yes -Correct Procedure Yes -Procedure Performed Yes -Type of Procedure Debridement -Clinical Debridement Subcutaneous -Post Debridement Size (cm) - Length 1.3 -Post Debridement Size (cm) - Width 3.4 -Post Debridement Size (cm) - Depth 1.5 -Total Square Cm 4.42 -Wound/Ulcer Outcome Not Healed -Ulcer Cleansing Rinsed/ Irrigated with Saline -Foul Odor after Cleansing No -Bioengineered Tissue No -Bleeding Controlled with Pressure -Treatment Response Procedure Tolerated Well [See Physician Procedure note for Specifics] Pain Scale: 0-10 Numeric [Pain] -Is Patient Pain Free? Yes Musculoskeletal: No Muscle Wasting Neurological: Cranial nerves II-XII grossly intact Psych/Mental Status: Normal Affect Debridement Note Post-Debridement Measurements/Treatment WC - Nurse 2 - General Ulcer CM Notes Start: 02/06/18 09:05 Freq: Status: Active Protocol: Activity Type Activity Date Activity User E-Sign Co-Sign Detail Recorded Client Recorded Date Recorded By Document 02/06/18 09:24 MW [id number] 02/06/18 09:29 MW 02/06/18 09:24 Wound Center Nurse 2 #6 lower mid abd -Time 09:24 -Correct Patient Yes -Correct Side, Site, Position Yes -Correct Procedure Yes -Procedure Performed Yes -Type of Procedure Debridement -Clinical Debridement Subcutaneous -Post Debridement Size (cm) - Length 7.5 -Post Debridement Size (cm) - Width 1.7 -Post Debridement Size (cm) - Depth 0.1 -Total Square Cm 12.75 -Wound/Ulcer Outcome Not Healed -Ulcer Cleansing Rinsed/ Irrigated with Saline -Foul Odor after Cleansing No -Bioengineered Tissue No -Bleeding Controlled with Pressure -Treatment Response Procedure Tolerated Well #5 sacrum -Time 09:25 -Correct Patient Yes -Correct Side, Site, Position Yes -Correct Procedure Yes -Procedure Performed Yes -Type of Procedure Debridement -Clinical Debridement Subcutaneous -Post Debridement Size (cm) - Length 1.3 -Post Debridement Size (cm) - Width 3.4 -Post Debridement Size (cm) - Depth 1.5 -Total Square Cm 4.42 -Wound/Ulcer Outcome Not Healed -Ulcer Cleansing Rinsed/ Irrigated with Saline -Foul Odor after Cleansing No -Bioengineered Tissue No -Bleeding Controlled with Pressure -Treatment Response Procedure Tolerated Well Pain Scale: 0-10 Numeric Is Patient Pain Free? Yes Wound debrided: Abdominal wound Wound Grade/Stage: Stage III Type of Debridement: Excisional debridement Anesthesia Used: 4% Lidocaine Solution Depth: Down to and including healthy tissue, in the subcutaneous layer Percentage of wound debrided: 100 Instrument Used: 5mm curette Tissue Removed: Slough and devitalized tissue Severity: Fat Layer Exposed Amount of bleeding with debridement: Mild Bleeding Controlled with: Pressure Patient tolerated procedure well - Additional Wound Wound debrided: Sacral Ulcer Wound Grade/Stage: Stage IV Type of Debridement: Excisional debridement Anesthesia Used: 4% Lidocaine Solution Depth: Down to and including healthy tissue, in the subcutaneous layer Percentage of wound debrided: 100 Instrument Used: 5mm curette Tissue Removed: Slough and devitalized tissue Severity: Fat Layer Exposed Amount of bleeding with debridement: Mild Bleeding Controlled with: Pressure Patient tolerated procedure: Patient tolerated procedure well Assessment/Plan Active Problems (Last Updated 08/09/17 @ 08:06 by Liz Baker) Non-healing surgical wound (Acute) Pressure ulcer of sacral region, stage 4 (Chronic) Assessment: Stage IV sacral decubitus ulcer. Right heel stage III pressure ulcer. - Healed. Left heel stage III pressure ulcer - Healed. Post surgical abdominal wound Plan: Improving abdominal wound. Sacarl ulcer is stable. Debridement done as documented above, procedure was well tolerated. Continue promogran with adaptic over top to the abdominal wound ( Change every other day ) and continue Fibrocol to the sacral wound. Plan for sacral wound is surgical debridement after abdominal wound is healed. Yet to reschedule visit with Dr. Hansen. Continue increased protein intake. Follow-up in 1 week. Advised to call with any questions or concerns. This note was generated with [employer] dictation software. It may contain incorrect words, spelling, and punctuation that were not noted in checking the note before signing.
[2018-02-13 08:42] VITALS: BP 131/75; PULSE 108; RESP 22; TEMP 36.3; BMI 40.5
--- NOTE | 2018-02-13 09:13 | PCM.WC.PN ---
(1) Non-healing surgical wound Status: Acute Current Visit: Yes Code(s): T81.89XA - Other complications of procedures, not elsewhere classified, initial encounter (2) Pressure ulcer of sacral region, stage 4 Status: Chronic Current Visit: Yes Code(s): L89.154 - Pressure ulcer of sacral region, stage 4 (3) Morbid obesity with BMI of 40.0-44.9, adult Status: Acute Current Visit: No Code(s): E66.01 - Morbid (severe) obesity due to excess calories; Z68.41 - Body mass index (BMI) 40.0-44.9, adult Type of Wound Date of Service: 02/13/18 Chief Complaint: Stage IV sacral pressure ulceration; bilateral unstageable necrotic heel pressure ulcerations History of Wound: Ms. Chavez is a 67-year-old female who is well known to me in the wound center and was last seen here over. 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 Surgery was in 10 December. Status post surgery she had been in a intermediate. She has had routine dressings to her sacral decubitus ulcer and had a wound VAC to her abdominal surgical ulcer. She denies any new complaints at this time. Progress of Wound: Stable. No new complaints. - Physical Exam Vital Signs Temp Pulse Resp BP 97.3 F L 108 H 22 H 131/75 H 02/13/18 08:42 02/13/18 08:42 02/13/18 08:42 02/13/18 08:42 General: Alert, Oriented x3, Cooperative, No apparent distress HEENT: Atraumatic Oral: Moist Mucosa Neck: Supple Lungs: Normal air movement Abdomen: Soft, Non Tender, Obese Extremities: No cyanosis Skin: Ulcer/ Wound Wound Measurements and Assessment WC - Nurse 1 - General Ulcer Measurement Start: 02/06/18 09:05 Freq: Status: Active Protocol: Activity Type Activity Date Activity User E-Sign Co-Sign Detail Recorded Client Recorded Date Recorded By Document 02/13/18 08:42 DL [email or web address] 02/13/18 08:53 DL 02/13/18 08:42 Wound Center Nurse 1 [Ulcer Assessment] #6 lower mid abd -Current Size (cm) - Length 6.9 -Current Size (cm) - Width 1.5 -Current Size (cm) - Depth 0.1 -Total Square Cm 10.35 -Photo Taken No -Exudate Amt Medium (34-66%) -Exudate Type Serosanguineous -Wound Margin Distinct, Outline Attached -Granulation Amt Large (67-100%) -Granulation Quality [place]- gran[place] Red -Necrosis Amt Small (1-33%) -Necrotic Tissue Type Adherent Slough -Structure Exposed N/A -Texture (Amanda-wound Skin Appearance) Scarring -Moisture (Amanda-wound Skin Appearance No Abnormality ) -Color (Amanda-wound Skin Appearance) No Abnormality -Temperature (Amanda-wound Skin No Abnormality Appearance) (Pt Warm) -Ulcer Cleansing Wound Cleanser -Foul Odor after Cleansing No -Anesthetic Used 4% Lidocaine Solution #5 sacrum -Current Size (cm) - Length 1.4 -Current Size (cm) - Width 3.2 -Current Size (cm) - Depth 1.7 -Total Square Cm 4.48 -Photo Taken No -Maximum Distance #2 (cm) 3.3 -Circular Undermining Yes -Exudate Amt Large (67-100%) -Exudate Type Yellow/Green -Wound Margin Thickened & Rolled Under -Granulation Amt Large (67-100%) -Granulation Quality Red -Necrosis Amt Small (1-33%) -Necrotic Tissue Type Adherent Slough -Structure Exposed N/A -Texture (Amanda-wound Skin Appearance) Scarring -Moisture (Amanda-wound Skin Appearance No Abnormality ) -Color (Amanda-wound Skin Appearance) Rubor -Temperature (Amanda-wound Skin No Abnormality Appearance) (Pt Warm) -Ulcer Cleansing Rinsed/ Irrigated with Saline -Foul Odor after Cleansing No -Anesthetic Used 4% Lidocaine Solution WC - Nurse 2 - General Ulcer CM Notes Start: 02/06/18 09:05 Freq: Status: Active Protocol: Activity Type Activity Date Activity User E-Sign Co-Sign Detail Recorded Client Recorded Date Recorded By Document 02/13/18 09:04 MW [id number] 02/13/18 09:10 MW 02/13/18 09:04 Wound Center Nurse 2 [Procedure/Treatment] #6 lower mid abd -Time 09:08 -Correct Patient Yes -Correct Side, Site, Position Yes -Correct Procedure Yes -Procedure Performed Yes -Type of Procedure Debridement -Clinical Debridement Subcutaneous -Post Debridement Size (cm) - Length 6.8 -Post Debridement Size (cm) - Width 1.3 -Post Debridement Size (cm) - Depth 0.1 -Total Square Cm 8.84 -Wound/Ulcer Outcome Not Healed -Ulcer Cleansing Rinsed/ Irrigated with Saline -Foul Odor after Cleansing No -Bioengineered Tissue No -Bleeding Controlled with Pressure -Treatment Response Procedure Tolerated Well #5 sacrum -Time 09:05 -Correct Patient Yes -Correct Side, Site, Position Yes -Correct Procedure Yes -Procedure Performed Yes -Type of Procedure Debridement -Clinical Debridement Subcutaneous -Post Debridement Size (cm) - Length 1.4 -Post Debridement Size (cm) - Width 3.4 -Post Debridement Size (cm) - Depth 1.5 -Total Square Cm 4.76 -Wound/Ulcer Outcome Not Healed -Ulcer Cleansing Wound Cleanser -Foul Odor after Cleansing No -Bioengineered Tissue No -Bleeding Controlled with Pressure -Treatment Response Procedure Tolerated Well [See Physician Procedure note for Specifics] Musculoskeletal: No Muscle Wasting Neurological: Cranial nerves II-XII grossly intact Psych/Mental Status: Normal Affect Debridement Note Post-Debridement Measurements/Treatment WC - Nurse 2 - General Ulcer CM Notes Start: 02/06/18 09:05 Freq: Status: Active Protocol: Activity Type Activity Date Activity User E-Sign Co-Sign Detail Recorded Client Recorded Date Recorded By Document 02/06/18 09:24 MW [id number] 02/06/18 09:29 MW Document 02/13/18 09:04 MW [id number] 02/13/18 09:10 MW 02/06/1818 09:24 09:04 Wound Center Nurse 2 #6 lower mid abd -Time 09:24 09:08 -Correct Patient Yes Yes -Correct Side, Site, Position Yes Yes -Correct Procedure Yes Yes -Procedure Performed Yes Yes -Type of Procedure Debridement Debridement -Clinical Debridement Subcutaneous Subcutaneous -Post Debridement Size (cm) - Length 7.5 6.8 -Post Debridement Size (cm) - Width 1.7 1.3 -Post Debridement Size (cm) - Depth 0.1 0.1 -Total Square Cm 12.75 8.84 -Wound/Ulcer Outcome Not Healed Not Healed -Ulcer Cleansing Rinsed/ Rinsed/ Irrigated with Irrigated with Saline Saline -Foul Odor after Cleansing No No -Bioengineered Tissue No No -Bleeding Controlled with Pressure Pressure -Treatment Response Procedure Procedure Tolerated Well Tolerated Well #5 sacrum -Time 09:25 09:05 -Correct Patient Yes Yes -Correct Side, Site, Position Yes Yes -Correct Procedure Yes Yes -Procedure Performed Yes Yes -Type of Procedure Debridement Debridement -Clinical Debridement Subcutaneous Subcutaneous -Post Debridement Size (cm) - Length 1.3 1.4 -Post Debridement Size (cm) - Width 3.4 3.4 -Post Debridement Size (cm) - Depth 1.5 1.5 -Total Square Cm 4.42 4.76 -Wound/Ulcer Outcome Not Healed Not Healed -Ulcer Cleansing Rinsed/ Wound Cleanser Irrigated with Saline -Foul Odor after Cleansing No No -Bioengineered Tissue No No -Bleeding Controlled with Pressure Pressure -Treatment Response Procedure Procedure Tolerated Well Tolerated Well Pain Scale: 0-10 Numeric Is Patient Pain Free? Yes Wound debrided: Sacral Ulcer Wound Grade/Stage: Stage IV Type of Debridement: Excisional debridement Anesthesia Used: 4% Lidocaine Solution Depth: Down to and including healthy tissue, in the subcutaneous layer Percentage of wound debrided: 100 Instrument Used: 5mm curette Tissue Removed: Slough and devitalized tissue Severity: Fat Layer Exposed Amount of bleeding with debridement: Mild Bleeding Controlled with: Pressure Patient tolerated procedure well - Additional Wound Wound debrided: Abdominal wound Wound Grade/Stage: Stage III Type of Debridement: Excisional debridement Anesthesia Used: 4% Lidocaine Solution Depth: Down to and including healthy tissue, in the subcutaneous layer Percentage of wound debrided: 100 Instrument Used: 5mm curette Tissue Removed: Slough and devitalized tissue Severity: Fat Layer Exposed Amount of bleeding with debridement: Mild Bleeding Controlled with: Pressure Patient tolerated procedure: Patient tolerated procedure well Assessment/Plan Active Problems (Last Updated 08/09/17 @ 08:06 by Liz Baker) Non-healing surgical wound (Acute) Pressure ulcer of sacral region, stage 4 (Chronic) Assessment: Stage IV sacral decubitus ulcer. Right heel stage III pressure ulcer. - Healed. Left heel stage III pressure ulcer - Healed. Post surgical abdominal wound Plan: Improving abdominal wound. Sacral ulcer remains stable. Debridement done as documented above, procedure was well tolerated. Continue promogran with adaptic over top to the abdominal wound ( Change every other day ) and continue Fibrocol to the sacral wound. Plan for sacral wound is surgical debridement after abdominal wound is healed. Scheduled to see Dr. Hansen on 03/11/18. Continue increased protein intake. Follow-up in 1 week. Advised to call with any questions or concerns. This note was generated with [employer] software. It may contain incorrect words, spelling, and punctuation that were not noted in checking the note before signing.
--- NOTE | 2018-02-13 09:16 | PN.PCM_ITS ---
(1) Non-healing surgical wound Status: Acute Current Visit: Yes Code(s): T81.89XA - Other complications of procedures, not elsewhere classified, initial encounter (2) Pressure ulcer of sacral region, stage 4 Status: Chronic Current Visit: Yes Code(s): L89.154 - Pressure ulcer of sacral region, stage 4 (3) Morbid obesity with BMI of 40.0-44.9, adult Status: Acute Current Visit: No Code(s): E66.01 - Morbid (severe) obesity due to excess calories; Z68.41 - Body mass index (BMI) 40.0-44.9, adult Type of Wound Date of Service: 02/13/18 Chief Complaint: Stage IV sacral pressure ulceration; bilateral unstageable necrotic heel pressure ulcerations History of Wound: Ms. Chavez is a 67-year-old female who is well known to me in the wound center and was last seen here over. 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 Surgery was in 10 December. Status post surgery she had been in a residential. She has had routine dressings to her sacral decubitus ulcer and had a wound VAC to her abdominal surgical ulcer. She denies any new complaints at this time. Progress of Wound: Stable. No new complaints. - Physical Exam Vital Signs Temp Pulse Resp BP 97.3 F L 108 H 22 H 131/75 H 02/13/18 08:42 02/13/18 08:42 02/13/18 08:42 02/13/18 08:42 General: Alert, Oriented x3, Cooperative, No apparent distress HEENT: Atraumatic Oral: Moist Mucosa Neck: Supple Lungs: Normal air movement Abdomen: Soft, Non Tender, Obese Extremities: No cyanosis Skin: Ulcer/ Wound Wound Measurements and Assessment WC - Nurse 1 - General Ulcer Measurement Start: 02/06/18 09:05 Freq: Status: Active Protocol: Activity Type Activity Date Activity User E-Sign Co-Sign Detail Recorded Client Recorded Date Recorded By Document 02/13/18 08:42 DL [id number] 02/13/18 08:53 DL 02/13/18 08:42 Wound Center Nurse 1 [Ulcer Assessment] #6 lower mid abd -Current Size (cm) - Length 6.9 -Current Size (cm) - Width 1.5 -Current Size (cm) - Depth 0.1 -Total Square Cm 10.35 -Photo Taken No -Exudate Amt Medium (34-66%) -Exudate Type Serosanguineous -Wound Margin Distinct, Outline Attached -Granulation Amt Large (67-100%) -Granulation Quality Hyper- granulation Red -Necrosis Amt Small (1-33%) -Necrotic Tissue Type Adherent Slough -Structure Exposed N/A -Texture (Amanda-wound Skin Appearance) Scarring -Moisture (Amanda-wound Skin Appearance No Abnormality ) -Color (Amanda-wound Skin Appearance) No Abnormality -Temperature (Amanda-wound Skin No Abnormality Appearance) (Pt Warm) -Ulcer Cleansing Wound Cleanser -Foul Odor after Cleansing No -Anesthetic Used 4% Lidocaine Solution #5 sacrum -Current Size (cm) - Length 1.4 -Current Size (cm) - Width 3.2 -Current Size (cm) - Depth 1.7 -Total Square Cm 4.48 -Photo Taken No -Maximum Distance #2 (cm) 3.3 -Circular Undermining Yes -Exudate Amt Large (67-100%) -Exudate Type Yellow/Green -Wound Margin Thickened & Rolled Under -Granulation Amt Large (67-100%) -Granulation Quality Red -Necrosis Amt Small (1-33%) -Necrotic Tissue Type Adherent Slough -Structure Exposed N/A -Texture (Amanda-wound Skin Appearance) Scarring -Moisture (Amanda-wound Skin Appearance No Abnormality ) -Color (Amanda-wound Skin Appearance) Rubor -Temperature (Amanda-wound Skin No Abnormality Appearance) (Pt Warm) -Ulcer Cleansing Rinsed/ Irrigated with Saline -Foul Odor after Cleansing No -Anesthetic Used 4% Lidocaine Solution WC - Nurse 2 - General Ulcer CM Notes Start: 02/06/18 09:05 Freq: Status: Active Protocol: Activity Type Activity Date Activity User E-Sign Co-Sign Detail Recorded Client Recorded Date Recorded By Document 02/13/18 09:04 MW [id number] 02/13/18 09:10 MW 02/13/18 09:04 Wound Center Nurse 2 [Procedure/Treatment] #6 lower mid abd -Time 09:08 -Correct Patient Yes -Correct Side, Site, Position Yes -Correct Procedure Yes -Procedure Performed Yes -Type of Procedure Debridement -Clinical Debridement Subcutaneous -Post Debridement Size (cm) - Length 6.8 -Post Debridement Size (cm) - Width 1.3 -Post Debridement Size (cm) - Depth 0.1 -Total Square Cm 8.84 -Wound/Ulcer Outcome Not Healed -Ulcer Cleansing Rinsed/ Irrigated with Saline -Foul Odor after Cleansing No -Bioengineered Tissue No -Bleeding Controlled with Pressure -Treatment Response Procedure Tolerated Well #5 sacrum -Time 09:05 -Correct Patient Yes -Correct Side, Site, Position Yes -Correct Procedure Yes -Procedure Performed Yes -Type of Procedure Debridement -Clinical Debridement Subcutaneous -Post Debridement Size (cm) - Length 1.4 -Post Debridement Size (cm) - Width 3.4 -Post Debridement Size (cm) - Depth 1.5 -Total Square Cm 4.76 -Wound/Ulcer Outcome Not Healed -Ulcer Cleansing Wound Cleanser -Foul Odor after Cleansing No -Bioengineered Tissue No -Bleeding Controlled with Pressure -Treatment Response Procedure Tolerated Well [See Physician Procedure note for Specifics] Musculoskeletal: No Muscle Wasting Neurological: Cranial nerves II-XII grossly intact Psych/Mental Status: Normal Affect Debridement Note Post-Debridement Measurements/Treatment WC - Nurse 2 - General Ulcer CM Notes Start: 02/06/18 09:05 Freq: Status: Active Protocol: Activity Type Activity Date Activity User E-Sign Co-Sign Detail Recorded Client Recorded Date Recorded By Document 02/06/18 09:24 MW [id number] 02/06/18 09:29 MW Document 02/13/18 09:04 MW [id number] 02/13/18 09:10 MW 02/06/1818 09:24 09:04 Wound Center Nurse 2 #6 lower mid abd -Time 09:24 09:08 -Correct Patient Yes Yes -Correct Side, Site, Position Yes Yes -Correct Procedure Yes Yes -Procedure Performed Yes Yes -Type of Procedure Debridement Debridement -Clinical Debridement Subcutaneous Subcutaneous -Post Debridement Size (cm) - Length 7.5 6.8 -Post Debridement Size (cm) - Width 1.7 1.3 -Post Debridement Size (cm) - Depth 0.1 0.1 -Total Square Cm 12.75 8.84 -Wound/Ulcer Outcome Not Healed Not Healed -Ulcer Cleansing Rinsed/ Rinsed/ Irrigated with Irrigated with Saline Saline -Foul Odor after Cleansing No No -Bioengineered Tissue No No -Bleeding Controlled with Pressure Pressure -Treatment Response Procedure Procedure Tolerated Well Tolerated Well #5 sacrum -Time 09:25 09:05 -Correct Patient Yes Yes -Correct Side, Site, Position Yes Yes -Correct Procedure Yes Yes -Procedure Performed Yes Yes -Type of Procedure Debridement Debridement -Clinical Debridement Subcutaneous Subcutaneous -Post Debridement Size (cm) - Length 1.3 1.4 -Post Debridement Size (cm) - Width 3.4 3.4 -Post Debridement Size (cm) - Depth 1.5 1.5 -Total Square Cm 4.42 4.76 -Wound/Ulcer Outcome Not Healed Not Healed -Ulcer Cleansing Rinsed/ Wound Cleanser Irrigated with Saline -Foul Odor after Cleansing No No -Bioengineered Tissue No No -Bleeding Controlled with Pressure Pressure -Treatment Response Procedure Procedure Tolerated Well Tolerated Well Pain Scale: 0-10 Numeric Is Patient Pain Free? Yes Wound debrided: Sacral Ulcer Wound Grade/Stage: Stage IV Type of Debridement: Excisional debridement Anesthesia Used: 4% Lidocaine Solution Depth: Down to and including healthy tissue, in the subcutaneous layer Percentage of wound debrided: 100 Instrument Used: 5mm curette Tissue Removed: Slough and devitalized tissue Severity: Fat Layer Exposed Amount of bleeding with debridement: Mild Bleeding Controlled with: Pressure Patient tolerated procedure well - Additional Wound Wound debrided: Abdominal wound Wound Grade/Stage: Stage III Type of Debridement: Excisional debridement Anesthesia Used: 4% Lidocaine Solution Depth: Down to and including healthy tissue, in the subcutaneous layer Percentage of wound debrided: 100 Instrument Used: 5mm curette Tissue Removed: Slough and devitalized tissue Severity: Fat Layer Exposed Amount of bleeding with debridement: Mild Bleeding Controlled with: Pressure Patient tolerated procedure: Patient tolerated procedure well Assessment/Plan Active Problems (Last Updated 08/09/17 @ 08:06 by Liz Baker) Non-healing surgical wound (Acute) Pressure ulcer of sacral region, stage 4 (Chronic) Assessment: Stage IV sacral decubitus ulcer. Right heel stage III pressure ulcer. - Healed. Left heel stage III pressure ulcer - Healed. Post surgical abdominal wound Plan: Improving abdominal wound. Sacral ulcer remains stable. Debridement done as documented above, procedure was well tolerated. Continue promogran with adaptic over top to the abdominal wound ( Change every other day ) and continue Fibrocol to the sacral wound. Plan for sacral wound is surgical debridement after abdominal wound is healed. Scheduled to see Dr. Hansen on . Continue increased protein intake. Follow-up in 1 week. Advised to call with any questions or concerns. This note was generated with [employer] software. It may contain incorrect words, spelling, and punctuation that were not noted in checking the note before signing.
[2018-02-20 08:53] VITALS: BP 120/72; PULSE 86; RESP 16; TEMP 36.6; BMI 40.5
--- NOTE | 2018-02-20 09:53 | PCM.WC.PN ---
(1) Non-healing surgical wound Status: Acute Current Visit: Yes Code(s): T81.89XA - Other complications of procedures, not elsewhere classified, initial encounter (2) Pressure ulcer of sacral region, stage 4 Status: Chronic Current Visit: Yes Code(s): L89.154 - Pressure ulcer of sacral region, stage 4 (3) Morbid obesity with BMI of 40.0-44.9, adult Status: Acute Current Visit: No Code(s): E66.01 - Morbid (severe) obesity due to excess calories; Z68.41 - Body mass index (BMI) 40.0-44.9, adult Type of Wound Date of Service: 02/20/18 Chief Complaint: Stage IV sacral pressure ulceration; bilateral unstageable necrotic heel pressure ulcerations History of Wound: Ms. Chavez is a 67-year-old female who is well known to me in the wound center and was last seen here over. 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 Surgery was in 10 December. Status post surgery she had been in a jail. She has had routine dressings to her sacral decubitus ulcer and had a wound VAC to her abdominal surgical ulcer. She denies any new complaints at this time. Progress of Wound: Stable. No new complaints. - Physical Exam Vital Signs Temp Pulse Resp BP 97.8 F 86 16 120/72 02/20/18 08:53 02/20/18 08:53 02/20/18 08:53 02/20/18 08:53 General: Alert, Oriented x3, Cooperative, No apparent distress HEENT: Atraumatic Oral: Moist Mucosa Neck: Supple Lungs: Normal air movement Cardiovascular: Regular rate Abdomen: Soft, Non Tender Extremities: No cyanosis Skin: Ulcer/ Wound Wound Measurements and Assessment WC - Nurse 1 - General Ulcer Measurement Start: 02/06/18 09:05 Freq: Status: Active Protocol: Activity Type Activity Date Activity User E-Sign Co-Sign Detail Recorded Client Recorded Date Recorded By Document 02/20/18 08:53 [id number] 02/20/18 08:56 02/20/18 08:53 Wound Center Nurse 1 [Ulcer Assessment] #6 lower mid abd -Combined with other wound No -Current Size (cm) - Length 6.2 -Current Size (cm) - Width 1.1 -Current Size (cm) - Depth 0.1 -Total Square Cm 6.82 -Photo Taken No -Epithelialization Small 1-33% -Tunneling No -Undermining/Tunneling No -Circular Undermining No -Exudate Amt Small (1-33%) -Exudate Type Serosanguineous -Wound Margin Distinct, Outline Attached -Granulation Quality [place] Red -Slough/Fibrin Yes -Necrosis Amt None Present (0 %) -Necrotic Tissue Type Adherent Slough -Structure Exposed None/Limited to Skin Breakdown -Texture (Amanda-wound Skin Appearance) Assessed Scarring -Color (Amanda-wound Skin Appearance) No Abnormality Assessed -Temperature (Amanda-wound Skin No Abnormality Appearance) (Pt Warm) -Tenderness on Palpation (Amanda-wound No Skin Appearance) -Ulcer Cleansing Rinsed/ Irrigated with Saline -Foul Odor after Cleansing No -Anesthetic Used 4% Lidocaine Solution #5 sacrum -Combined with other wound No -Current Size (cm) - Length 1.6 -Current Size (cm) - Width 3.5 -Current Size (cm) - Depth 2.6 -Total Square Cm 5.60 -Photo Taken No -Epithelialization None Present -Tunneling No -Undermining/Tunneling No -Circular Undermining No -Exudate Amt Medium (34-66%) -Exudate Type Serosanguineous -Wound Margin Distinct, Outline Attached -Granulation Amt None Present (0 %) -Necrosis Amt None Present (0 %) -Texture (Amanda-wound Skin Appearance) Scarring -Moisture (Amanda-wound Skin Appearance No Abnormality ) Assessed -Color (Amanda-wound Skin Appearance) No Abnormality Assessed -Temperature (Amanda-wound Skin No Abnormality Appearance) (Pt Warm) -Tenderness on Palpation (Amanda-wound No Skin Appearance) -Ulcer Cleansing Wound Cleanser -Foul Odor after Cleansing No -Anesthetic Used 4% Lidocaine Solution [Edema Assessment] -Lower Limb Edema Present NA WC - Nurse 2 - General Ulcer CM Notes Start: 02/06/18 09:05 Freq: Status: Active Protocol: Activity Type Activity Date Activity User E-Sign Co-Sign Detail Recorded Client Recorded Date Recorded By Document 02/20/18 09:16 MW [id number] 02/20/18 09:21 MW 02/20/18 09:16 Wound Center Nurse 2 [Procedure/Treatment] #6 lower mid abd -Time 09:17 -Correct Patient Yes -Correct Side, Site, Position Yes -Correct Procedure Yes -Procedure Performed Yes -Type of Procedure Debridement -Clinical Debridement Subcutaneous -Post Debridement Size (cm) - Length 5.8 -Post Debridement Size (cm) - Width 1.0 -Post Debridement Size (cm) - Depth 0.1 -Total Square Cm 5.80 -Wound/Ulcer Outcome Not Healed -Ulcer Cleansing Rinsed/ Irrigated with Saline -Foul Odor after Cleansing No -Bioengineered Tissue No -Bleeding Controlled with Pressure -Treatment Response Procedure Tolerated Well #5 sacrum -Time 09:17 -Correct Patient Yes -Correct Side, Site, Position Yes -Correct Procedure Yes -Procedure Performed Yes -Type of Procedure Debridement -Clinical Debridement Subcutaneous -Post Debridement Size (cm) - Length 1.2 -Post Debridement Size (cm) - Width 3.4 -Post Debridement Size (cm) - Depth 1.5 -Total Square Cm 4.08 -Wound/Ulcer Outcome Not Healed -Ulcer Cleansing Rinsed/ Irrigated with Saline -Foul Odor after Cleansing No -Bioengineered Tissue No -Bleeding Controlled with Pressure -Treatment Response Procedure Tolerated Well [See Physician Procedure note for Specifics] Pain Scale: 0-10 Numeric [Pain] -Is Patient Pain Free? Yes Musculoskeletal: No Muscle Wasting Neurological: Cranial nerves II-XII grossly intact Psych/Mental Status: Normal Affect Debridement Note Post-Debridement Measurements/Treatment WC - Nurse 2 - General Ulcer CM Notes Start: 02/06/18 09:05 Freq: Status: Active Protocol: Activity Type Activity Date Activity User E-Sign Co-Sign Detail Recorded Client Recorded Date Recorded By Document 02/06/18 09:24 MW [id number] 02/06/18 09:29 MW Document 02/13/18 09:04 MW [id number] 02/13/18 09:10 MW Document 02/20/18 09:16 MW [id number] 02/20/18 09:21 MW 02/06/18 02/13/18 02/20/18 09:24 09:04 09:16 Wound Center Nurse 2 #6 lower mid abd -Time 09:24 09:08 09:17 -Correct Patient Yes Yes Yes -Correct Side, Site, Position Yes Yes Yes -Correct Procedure Yes Yes Yes -Procedure Performed Yes Yes Yes -Type of Procedure Debridement Debridement Debridement -Clinical Debridement Subcutaneous Subcutaneous Subcutaneous -Post Debridement Size (cm) - Length 7.5 6.8 5.8 -Post Debridement Size (cm) - Width 1.7 1.3 1.0 -Post Debridement Size (cm) - Depth 0.1 0.1 0.1 -Total Square Cm 12.75 8.84 5.80 -Wound/Ulcer Outcome Not Healed Not Healed Not Healed -Ulcer Cleansing Rinsed/ Rinsed/ Rinsed/ Irrigated with Irrigated with Irrigated with Saline Saline Saline -Foul Odor after Cleansing No No No -Bioengineered Tissue No No No -Bleeding Controlled with Pressure Pressure Pressure -Treatment Response Procedure Procedure Procedure Tolerated Well Tolerated Well Tolerated Well #5 sacrum -Time 09:25 09:05 09:17 -Correct Patient Yes Yes Yes -Correct Side, Site, Position Yes Yes Yes -Correct Procedure Yes Yes Yes -Procedure Performed Yes Yes Yes -Type of Procedure Debridement Debridement Debridement -Clinical Debridement Subcutaneous Subcutaneous Subcutaneous -Post Debridement Size (cm) - Length 1.3 1.4 1.2 -Post Debridement Size (cm) - Width 3.4 3.4 3.4 -Post Debridement Size (cm) - Depth 1.5 1.5 1.5 -Total Square Cm 4.42 4.76 4.08 -Wound/Ulcer Outcome Not Healed Not Healed Not Healed -Ulcer Cleansing Rinsed/ Wound Cleanser Rinsed/ Irrigated with Irrigated with Saline Saline -Foul Odor after Cleansing No No No -Bioengineered Tissue No No No -Bleeding Controlled with Pressure Pressure Pressure -Treatment Response Procedure Procedure Procedure Tolerated Well Tolerated Well Tolerated Well Pain Scale: 0-10 Numeric Is Patient Pain Free? Yes Yes Wound debrided: Adominal wound Wound Grade/Stage: Stage III Type of Debridement: Excisional debridement Anesthesia Used: 4% Lidocaine Solution Depth: Down to and including healthy tissue, in the subcutaneous layer Percentage of wound debrided: 100 Instrument Used: 3mm curette Tissue Removed: Slough and devitalized tissue Severity: Fat Layer Exposed Amount of bleeding with debridement: Mild Bleeding Controlled with: Pressure Patient tolerated procedure well - Additional Wound Wound debrided: Sacral ulcer Wound Grade/Stage: Stage IV Type of Debridement: Excisional debridement Anesthesia Used: 4% Lidocaine Solution Depth: Down to and including healthy tissue, in the subcutaneous layer Percentage of wound debrided: 100 Instrument Used: 7mm curette Tissue Removed: Slough and devitalized tissue Severity: Fat Layer Exposed Amount of bleeding with debridement: Mild Bleeding Controlled with: Pressure Patient tolerated procedure: Patient tolerated procedure well Assessment/Plan Active Problems (Last Updated 08/09/17 @ 08:06 by Liz Baker) Non-healing surgical wound (Acute) Pressure ulcer of sacral region, stage 4 (Chronic) Assessment: Stage IV sacral decubitus ulcer. Right heel stage III pressure ulcer. - Healed. Left heel stage III pressure ulcer - Healed. Post surgical abdominal wound Plan: No significant changes. Debridement done as documented above, procedure was well tolerated. Continue promogran with adaptic over top to the abdominal wound ( Change every other day ) and continue Fibrocol to the sacral wound. Plan for sacral wound is surgical debridement after abdominal wound is healed. Scheduled to see Dr. Hansen on 03/11/18. Continue increased protein intake. Follow-up in 1 week. Advised to call with any questions or concerns. This note was generated with [employer] dictation software. It may contain incorrect words, spelling, and punctuation that were not noted in checking the note before signing.
--- NOTE | 2018-02-20 09:57 | PN.PCM_ITS ---
(1) Non-healing surgical wound Status: Acute Current Visit: Yes Code(s): T81.89XA - Other complications of procedures, not elsewhere classified, initial encounter (2) Pressure ulcer of sacral region, stage 4 Status: Chronic Current Visit: Yes Code(s): L89.154 - Pressure ulcer of sacral region, stage 4 (3) Morbid obesity with BMI of 40.0-44.9, adult Status: Acute Current Visit: No Code(s): E66.01 - Morbid (severe) obesity due to excess calories; Z68.41 - Body mass index (BMI) 40.0-44.9, adult Type of Wound Date of Service: 02/20/18 Chief Complaint: Stage IV sacral pressure ulceration; bilateral unstageable necrotic heel pressure ulcerations History of Wound: Ms. Chavez is a 67-year-old female who is well known to me in the wound center and was last seen here over. 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 Surgery was in 10 December. Status post surgery she had been in a long term. She has had routine dressings to her sacral decubitus ulcer and had a wound VAC to her abdominal surgical ulcer. She denies any new complaints at this time. Progress of Wound: Stable. No new complaints. - Physical Exam Vital Signs Temp Pulse Resp BP 97.8 F 86 16 120/72 02/20/18 08:53 02/20/18 08:53 02/20/18 08:53 02/20/18 08:53 General: Alert, Oriented x3, Cooperative, No apparent distress HEENT: Atraumatic Oral: Moist Mucosa Neck: Supple Lungs: Normal air movement Cardiovascular: Regular rate Abdomen: Soft, Non Tender Extremities: No cyanosis Skin: Ulcer/ Wound Wound Measurements and Assessment WC - Nurse 1 - General Ulcer Measurement Start: 02/06/18 09:05 Freq: Status: Active Protocol: Activity Type Activity Date Activity User E-Sign Co-Sign Detail Recorded Client Recorded Date Recorded By Document 02/20/18 08:53 [id number] 02/20/18 08:56 02/20/18 08:53 Wound Center Nurse 1 [Ulcer Assessment] #6 lower mid abd -Combined with other wound No -Current Size (cm) - Length 6.2 -Current Size (cm) - Width 1.1 -Current Size (cm) - Depth 0.1 -Total Square Cm 6.82 -Photo Taken No -Epithelialization Small 1-33% -Tunneling No -Undermining/Tunneling No -Circular Undermining No -Exudate Amt Small (1-33%) -Exudate Type Serosanguineous -Wound Margin Distinct, Outline Attached -Granulation Quality [place] -Slough/Fibrin Yes -Necrosis Amt None Present (0 %) -Necrotic Tissue Type Adherent Slough -Structure Exposed None/Limited to Skin Breakdown -Texture (Amanda-wound Skin Appearance) Assessed Scarring -Color (Amanda-wound Skin Appearance) No Abnormality Assessed -Temperature (Amanda-wound Skin No Abnormality Appearance) (Pt Warm) -Tenderness on Palpation (Amanda-wound No Skin Appearance) -Ulcer Cleansing Rinsed/ Irrigated with Saline -Foul Odor after Cleansing No -Anesthetic Used 4% Lidocaine Solution #5 sacrum -Combined with other wound No -Current Size (cm) - Length 1.6 -Current Size (cm) - Width 3.5 -Current Size (cm) - Depth 2.6 -Total Square Cm 5.60 -Photo Taken No -Epithelialization None Present -Tunneling No -Undermining/Tunneling No -Circular Undermining No -Exudate Amt Medium (34-66%) -Exudate Type Serosanguineous -Wound Margin Distinct, Outline Attached -Granulation Amt None Present (0 %) -Necrosis Amt None Present (0 %) -Texture (Amanda-wound Skin Appearance) Scarring -Moisture (Amanda-wound Skin Appearance No Abnormality ) Assessed -Color (Amanda-wound Skin Appearance) No Abnormality Assessed -Temperature (Amanda-wound Skin No Abnormality Appearance) (Pt Warm) -Tenderness on Palpation (Amanda-wound No Skin Appearance) -Ulcer Cleansing Wound Cleanser -Foul Odor after Cleansing No -Anesthetic Used 4% Lidocaine Solution [Edema Assessment] -Lower Limb Edema Present NA WC - Nurse 2 - General Ulcer CM Notes Start: 02/06/18 09:05 Freq: Status: Active Protocol: Activity Type Activity Date Activity User E-Sign Co-Sign Detail Recorded Client Recorded Date Recorded By Document 02/20/18 09:16 MW [id number] 02/20/18 09:21 MW 02/20/18 09:16 Wound Center Nurse 2 [Procedure/Treatment] #6 lower mid abd -Time 09:17 -Correct Patient Yes -Correct Side, Site, Position Yes -Correct Procedure Yes -Procedure Performed Yes -Type of Procedure Debridement -Clinical Debridement Subcutaneous -Post Debridement Size (cm) - Length 5.8 -Post Debridement Size (cm) - Width 1.0 -Post Debridement Size (cm) - Depth 0.1 -Total Square Cm 5.80 -Wound/Ulcer Outcome Not Healed -Ulcer Cleansing Rinsed/ Irrigated with Saline -Foul Odor after Cleansing No -Bioengineered Tissue No -Bleeding Controlled with Pressure -Treatment Response Procedure Tolerated Well #5 sacrum -Time 09:17 -Correct Patient Yes -Correct Side, Site, Position Yes -Correct Procedure Yes -Procedure Performed Yes -Type of Procedure Debridement -Clinical Debridement Subcutaneous -Post Debridement Size (cm) - Length 1.2 -Post Debridement Size (cm) - Width 3.4 -Post Debridement Size (cm) - Depth 1.5 -Total Square Cm 4.08 -Wound/Ulcer Outcome Not Healed -Ulcer Cleansing Rinsed/ Irrigated with Saline -Foul Odor after Cleansing No -Bioengineered Tissue No -Bleeding Controlled with Pressure -Treatment Response Procedure Tolerated Well [See Physician Procedure note for Specifics] Pain Scale: 0-10 Numeric [Pain] -Is Patient Pain Free? Yes Musculoskeletal: No Muscle Wasting Neurological: Cranial nerves II-XII grossly intact Psych/Mental Status: Normal Affect Debridement Note Post-Debridement Measurements/Treatment WC - Nurse 2 - General Ulcer CM Notes Start: 02/06/18 09:05 Freq: Status: Active Protocol: Activity Type Activity Date Activity User E-Sign Co-Sign Detail Recorded Client Recorded Date Recorded By Document 02/06/18 09:24 MW [id number] 02/06/18 09:29 MW Document 02/13/18 09:04 MW [id number] 02/13/18 09:10 MW Document 02/20/18 09:16 MW [id number] 02/20/18 09:21 MW 02/06/18 02/13/18 02/20/18 09:24 09:04 09:16 Wound Center Nurse 2 #6 lower mid abd -Time 09:24 09:08 09:17 -Correct Patient Yes Yes Yes -Correct Side, Site, Position Yes Yes Yes -Correct Procedure Yes Yes Yes -Procedure Performed Yes Yes Yes -Type of Procedure Debridement Debridement Debridement -Clinical Debridement Subcutaneous Subcutaneous Subcutaneous -Post Debridement Size (cm) - Length 7.5 6.8 5.8 -Post Debridement Size (cm) - Width 1.7 1.3 1.0 -Post Debridement Size (cm) - Depth 0.1 0.1 0.1 -Total Square Cm 12.75 8.84 5.80 -Wound/Ulcer Outcome Not Healed Not Healed Not Healed -Ulcer Cleansing Rinsed/ Rinsed/ Rinsed/ Irrigated with Irrigated with Irrigated with Saline Saline Saline -Foul Odor after Cleansing No No No -Bioengineered Tissue No No No -Bleeding Controlled with Pressure Pressure Pressure -Treatment Response Procedure Procedure Procedure Tolerated Well Tolerated Well Tolerated Well #5 sacrum -Time 09:25 09:05 09:17 -Correct Patient Yes Yes Yes -Correct Side, Site, Position Yes Yes Yes -Correct Procedure Yes Yes Yes -Procedure Performed Yes Yes Yes -Type of Procedure Debridement Debridement Debridement -Clinical Debridement Subcutaneous Subcutaneous Subcutaneous -Post Debridement Size (cm) - Length 1.3 1.4 1.2 -Post Debridement Size (cm) - Width 3.4 3.4 3.4 -Post Debridement Size (cm) - Depth 1.5 1.5 1.5 -Total Square Cm 4.42 4.76 4.08 -Wound/Ulcer Outcome Not Healed Not Healed Not Healed -Ulcer Cleansing Rinsed/ Wound Cleanser Rinsed/ Irrigated with Irrigated with Saline Saline -Foul Odor after Cleansing No No No -Bioengineered Tissue No No No -Bleeding Controlled with Pressure Pressure Pressure -Treatment Response Procedure Procedure Procedure Tolerated Well Tolerated Well Tolerated Well Pain Scale: 0-10 Numeric Is Patient Pain Free? Yes Yes Wound debrided: Adominal wound Wound Grade/Stage: Stage III Type of Debridement: Excisional debridement Anesthesia Used: 4% Lidocaine Solution Depth: Down to and including healthy tissue, in the subcutaneous layer Percentage of wound debrided: 100 Instrument Used: 3mm curette Tissue Removed: Slough and devitalized tissue Severity: Fat Layer Exposed Amount of bleeding with debridement: Mild Bleeding Controlled with: Pressure Patient tolerated procedure well - Additional Wound Wound debrided: Sacral ulcer Wound Grade/Stage: Stage IV Type of Debridement: Excisional debridement Anesthesia Used: 4% Lidocaine Solution Depth: Down to and including healthy tissue, in the subcutaneous layer Percentage of wound debrided: 100 Instrument Used: 7mm curette Tissue Removed: Slough and devitalized tissue Severity: Fat Layer Exposed Amount of bleeding with debridement: Mild Bleeding Controlled with: Pressure Patient tolerated procedure: Patient tolerated procedure well Assessment/Plan Active Problems (Last Updated 08/09/17 @ 08:06 by Liz Baker) Non-healing surgical wound (Acute) Pressure ulcer of sacral region, stage 4 (Chronic) Assessment: Stage IV sacral decubitus ulcer. Right heel stage III pressure ulcer. - Healed. Left heel stage III pressure ulcer - Healed. Post surgical abdominal wound Plan: No significant changes. Debridement done as documented above, procedure was well tolerated. Continue promogran with adaptic over top to the abdominal wound ( Change every other day ) and continue Fibrocol to the sacral wound. Plan for sacral wound is surgical debridement after abdominal wound is healed. Scheduled to see Dr. Hansen on 03/11/18. Continue increased protein intake. Follow-up in 1 week. Advised to call with any questions or concerns. This note was generated with [employer] dictation software. It may contain incorrect words, spelling, and punctuation that were not noted in checking the note before signing.
[2018-02-27 09:52] VITALS: BP 134/81; PULSE 93; RESP 16; TEMP 36.6; BMI 40.5
--- NOTE | 2018-02-27 10:48 | PCM.WC.PN ---
(1) Non-healing surgical wound Status: Acute Current Visit: Yes Code(s): T81.89XA - Other complications of procedures, not elsewhere classified, initial encounter (2) Pressure ulcer of sacral region, stage 4 Status: Chronic Current Visit: Yes Code(s): L89.154 - Pressure ulcer of sacral region, stage 4 (3) Morbid obesity with BMI of 40.0-44.9, adult Status: Acute Current Visit: No Code(s): E66.01 - Morbid (severe) obesity due to excess calories; Z68.41 - Body mass index (BMI) 40.0-44.9, adult Type of Wound Chief Complaint: Stage IV sacral pressure ulceration; bilateral unstageable necrotic heel pressure ulcerations History of Wound: Ms. Chavez is a 67-year-old female who is well known to me in the wound center and was last seen here over. 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 Surgery was in 10 December. Status post surgery she had been in a [place] [facility]. She has had routine dressings to her sacral decubitus ulcer and had a wound VAC to her abdominal surgical ulcer. She denies any new complaints at this time. Progress of Wound: Stable. No new complaints. - Physical Exam Vital Signs Temp Pulse Resp BP 97.8 F 93 16 134/81 H 02/27/18 09:52 02/27/18 09:52 02/27/18 09:52 02/27/18 09:52 General: Alert, Oriented x3, Cooperative, No apparent distress HEENT: Atraumatic Oral: Moist Mucosa Neck: Supple Lungs: Normal air movement Abdomen: Soft, Non Tender, Obese Extremities: No cyanosis Skin: Ulcer/ Wound Wound Measurements and Assessment WC - Nurse 1 - General Ulcer Measurement Start: 02/06/18 09:05 Freq: Status: Active Protocol: Activity Type Activity Date Activity User E-Sign Co-Sign Detail Recorded Client Recorded Date Recorded By Document 02/27/18 09:52 [facility] [id number] 02/27/18 10:06 [facility] 02/27/18 09:52 Wound Center Nurse 1 [Ulcer Assessment] #6 lower mid abd -Combined with other wound No -Current Size (cm) - Length 4.9 -Current Size (cm) - Width 1.2 -Current Size (cm) - Depth 0.1 -Total Square Cm 5.88 -Photo Taken No -Epithelialization Small 1-33% -Tunneling No -Undermining/Tunneling No -Circular Undermining No -Exudate Amt Small (1-33%) -Exudate Type Serosanguineous -Wound Margin Distinct, Outline Attached -Granulation Amt Large (67-100%) -Granulation Quality Red -Slough/Fibrin Yes -Necrosis Amt Small (1-33%) -Necrotic Tissue Type Adherent Slough -Structure Exposed None/Limited to Skin Breakdown -Texture (Amanda-wound Skin Appearance) Scarring -Moisture (Amanda-wound Skin Appearance Dry/Scaly ) -Color (Amanda-wound Skin Appearance) Assessed -Temperature (Amanda-wound Skin No Abnormality Appearance) (Pt Warm) -Tenderness on Palpation (Amanda-wound No Skin Appearance) -Ulcer Cleansing Rinsed/ Irrigated with Saline -Foul Odor after Cleansing No -Anesthetic Used 4% Lidocaine Solution #5 sacrum -Combined with other wound No -Current Size (cm) - Length 1 -Current Size (cm) - Width 3.5 -Current Size (cm) - Depth 1.3 -Total Square Cm 3.5 -Photo Taken No -Epithelialization None Present -Tunneling No -Undermining/Tunneling Yes -Undermining/Tunneling Starts (O' 12 clock) -Undermining/Tunneling Ends (O'clock) 12 -Maximum Distance (cm) 2.8 -Circular Undermining Yes -Exudate Amt Medium (34-66%) -Exudate Type Serosanguineous -Wound Margin Distinct, Outline Attached -Granulation Amt Large (67-100%) -Granulation Quality [place] -Slough/Fibrin Yes -Necrosis Amt Small (1-33%) -Necrotic Tissue Type Adherent Slough -Texture (Amanda-wound Skin Appearance) Scarring -Moisture (Amanda-wound Skin Appearance Dry/Scaly ) -Color (Amanda-wound Skin Appearance) Assessed -Temperature (Amanda-wound Skin No Abnormality Appearance) (Pt Warm) -Tenderness on Palpation (Amanda-wound Yes Skin Appearance) -Ulcer Cleansing Rinsed/ Irrigated with Saline -Foul Odor after Cleansing No -Anesthetic Used 4% Lidocaine Solution WC - Nurse 2 - General Ulcer CM Notes Start: 02/06/18 09:05 Freq: Status: Active Protocol: Activity Type Activity Date Activity User E-Sign Co-Sign Detail Recorded Client Recorded Date Recorded By Document 02/27/18 10:23 MW [id number] 02/27/18 10:33 MW 02/27/18 10:23 Wound Center Nurse 2 [Procedure/Treatment] #6 lower mid abd -Time 10:29 -Correct Patient Yes -Correct Side, Site, Position Yes -Correct Procedure Yes -Procedure Performed Yes -Type of Procedure Debridement -Clinical Debridement Subcutaneous -Post Debridement Size (cm) - Length 5.0 -Post Debridement Size (cm) - Width 0.7 -Post Debridement Size (cm) - Depth 0.1 -Total Square Cm 3.50 -Wound/Ulcer Outcome Not Healed -Ulcer Cleansing Rinsed/ Irrigated with Saline -Foul Odor after Cleansing No -Bioengineered Tissue No -Bleeding Controlled with Pressure -Treatment Response Procedure Tolerated Well #5 sacrum -Time 10:24 -Correct Patient Yes -Correct Side, Site, Position Yes -Correct Procedure Yes -Procedure Performed Yes -Type of Procedure Debridement -Clinical Debridement Subcutaneous -Post Debridement Size (cm) - Length 1.5 -Post Debridement Size (cm) - Width 3.5 -Post Debridement Size (cm) - Depth 1.5 -Total Square Cm 5.25 -Wound/Ulcer Outcome Not Healed -Ulcer Cleansing Rinsed/ Irrigated with Saline -Foul Odor after Cleansing No -Bioengineered Tissue No -Bleeding Controlled with Pressure -Other UNDERMINING @11 -3.5CM -Treatment Response Procedure Tolerated Well [See Physician Procedure note for Specifics] Pain Scale: 0-10 Numeric [Pain] -Is Patient Pain Free? Yes Musculoskeletal: No Muscle Wasting Neurological: Cranial nerves II-XII grossly intact Psych/Mental Status: Normal Affect Debridement Note Post-Debridement Measurements/Treatment WC - Nurse 2 - General Ulcer CM Notes Start: 02/06/18 09:05 Freq: Status: Active Protocol: Activity Type Activity Date Activity User E-Sign Co-Sign Detail Recorded Client Recorded Date Recorded By Document 02/06/18 09:24 MW [id number] 02/06/18 09:29 MW Document 02/13/18 09:04 MW [id number] 02/13/18 09:10 MW Document 02/20/18 09:16 MW [id number] 02/20/18 09:21 MW Document 02/27/18 10:23 MW [id number] 09/26/18 10:33 MW 02/06/18 02/13/18 02/20/18 09:24 09:04 09:16 Wound Center Nurse 2 #6 lower mid abd -Time 09:24 09:08 09:17 -Correct Patient Yes Yes Yes -Correct Side, Site, Position Yes Yes Yes -Correct Procedure Yes Yes Yes -Procedure Performed Yes Yes Yes -Type of Procedure Debridement Debridement Debridement -Clinical Debridement Subcutaneous Subcutaneous Subcutaneous -Post Debridement Size (cm) - Length 7.5 6.8 5.8 -Post Debridement Size (cm) - Width 1.7 1.3 1.0 -Post Debridement Size (cm) - Depth 0.1 0.1 0.1 -Total Square Cm 12.75 8.84 5.80 -Wound/Ulcer Outcome Not Healed Not Healed Not Healed -Ulcer Cleansing Rinsed/ Rinsed/ Rinsed/ Irrigated with Irrigated with Irrigated with Saline Saline Saline -Foul Odor after Cleansing No No No -Bioengineered Tissue No No No -Bleeding Controlled with Pressure Pressure Pressure -Treatment Response Procedure Procedure Procedure Tolerated Well Tolerated Well Tolerated Well #5 sacrum -Time 09:25 09:05 09:17 -Correct Patient Yes Yes Yes -Correct Side, Site, Position Yes Yes Yes -Correct Procedure Yes Yes Yes -Procedure Performed Yes Yes Yes -Type of Procedure Debridement Debridement Debridement -Clinical Debridement Subcutaneous Subcutaneous Subcutaneous -Post Debridement Size (cm) - Length 1.3 1.4 1.2 -Post Debridement Size (cm) - Width 3.4 3.4 3.4 -Post Debridement Size (cm) - Depth 1.5 1.5 1.5 -Total Square Cm 4.42 4.76 4.08 -Wound/Ulcer Outcome Not Healed Not Healed Not Healed -Ulcer Cleansing Rinsed/ Wound Cleanser Rinsed/ Irrigated with Irrigated with Saline Saline -Foul Odor after Cleansing No No No -Bioengineered Tissue No No No -Bleeding Controlled with Pressure Pressure Pressure -Other -Treatment Response Procedure Procedure Procedure Tolerated Well Tolerated Well Tolerated Well Pain Scale: 0-10 Numeric Is Patient Pain Free? Yes Yes 02/27/18 10:23 Wound Center Nurse 2 #6 lower mid abd -Time 10:29 -Correct Patient Yes -Correct Side, Site, Position Yes -Correct Procedure Yes -Procedure Performed Yes -Type of Procedure Debridement -Clinical Debridement Subcutaneous -Post Debridement Size (cm) - Length 5.0 -Post Debridement Size (cm) - Width 0.7 -Post Debridement Size (cm) - Depth 0.1 -Total Square Cm 3.50 -Wound/Ulcer Outcome Not Healed -Ulcer Cleansing Rinsed/ Irrigated with Saline -Foul Odor after Cleansing No -Bioengineered Tissue No -Bleeding Controlled with Pressure -Treatment Response Procedure Tolerated Well #5 sacrum -Time 10:24 -Correct Patient Yes -Correct Side, Site, Position Yes -Correct Procedure Yes -Procedure Performed Yes -Type of Procedure Debridement -Clinical Debridement Subcutaneous -Post Debridement Size (cm) - Length 1.5 -Post Debridement Size (cm) - Width 3.5 -Post Debridement Size (cm) - Depth 1.5 -Total Square Cm 5.25 -Wound/Ulcer Outcome Not Healed -Ulcer Cleansing Rinsed/ Irrigated with Saline -Foul Odor after Cleansing No -Bioengineered Tissue No -Bleeding Controlled with Pressure -Other UNDERMINING @11 -3.5CM -Treatment Response Procedure Tolerated Well Pain Scale: 0-10 Numeric Is Patient Pain Free? Yes Wound debrided: Sacarl Ulcer Wound Grade/Stage: Stage IV Type of Debridement: Excisional debridement Anesthesia Used: 4% Lidocaine Solution Depth: Down to and including healthy tissue Percentage of wound debrided: 100 Instrument Used: 7mm curette Tissue Removed: Slough and devitalized tissue Severity: Fat Layer Exposed Amount of bleeding with debridement: Mild Bleeding Controlled with: Pressure Patient tolerated procedure well - Additional Wound Wound debrided: Abdominal wound Wound Grade/Stage: Stage III Type of Debridement: Excisional debridement Anesthesia Used: 4% Lidocaine Solution Depth: Down to and including healthy tissue, in the subcutaneous layer Percentage of wound debrided: 100 Instrument Used: 3mm curette Tissue Removed: Slough and dveitalized tissue Severity: Fat Layer Exposed Amount of bleeding with debridement: Mild Bleeding Controlled with: Pressure Patient tolerated procedure: Patient tolerated procedure well Assessment/Plan Active Problems (Last Updated 08/09/17 @ 08:06 by Liz Baker) Non-healing surgical wound (Acute) Pressure ulcer of sacral region, stage 4 (Chronic) Assessment: Stage IV sacral decubitus ulcer. Right heel stage III pressure ulcer. - Healed. Left heel stage III pressure ulcer - Healed. Post surgical abdominal wound Plan: Stable ulcer and wound. Debridement done as documented above, procedure was well tolerated. Continue promogran with adaptic over top to the abdominal wound ( Change every other day ) and continue Fibrocol to the sacral ulcer. Plan for sacral ulcer is surgical debridement after abdominal wound is healed. Scheduled to see Dr. Hansen on 03/11/18. Continue increased protein intake. Follow-up in 1 week. Advised to call with any questions or concerns. This note was generated with [employer] software. It may contain incorrect words, spelling, and punctuation that were not noted in checking the note before signing.
== END 2018-03-03 23:59 ==
LOC: WC 09:00
PROVIDERS: Family Provider Family Medicine Geriatric Medicine; PCP Family Medicine Geriatric Medicine; Visit Provider Internal Medicine
DX: L89.154 Pressure ulcer of sacral region, stage 4 (principal); E66.01 Morbid (severe) obesity due to excess calories; Z68.41 Body mass index [BMI] 40.0-44.9, adult; Z71.3 Dietary counseling and surveillance
CPT/HCPCS: 11042

== ENCOUNTER 2018-04-03 09:00 | Outpatient (RCR) | payer MEDICARE, OTHER, SELFPAY ==
[2018-03-04 00:39] VITALS: BP 134/81; PULSE 93; RESP 16; TEMP 36.6; BMI 40.5
[2018-03-06 09:24] VITALS: BP 138/85; PULSE 108; RESP 16; TEMP 37; BMI 40.5
--- NOTE | 2018-03-06 10:07 | PCM.WC.PN ---
(1) Non-healing surgical wound Status: Chronic Current Visit: Yes Code(s): T81.89XA - Other complications of procedures, not elsewhere classified, initial encounter (2) Pressure ulcer of sacral region, stage 4 Status: Chronic Current Visit: Yes Code(s): L89.154 - Pressure ulcer of sacral region, stage 4 Type of Wound Chief Complaint: Stage IV sacral pressure ulceration; bilateral unstageable necrotic heel pressure ulcerations History of Wound: Ms. Chavez is a 67-year-old female who is well known to me in the wound center and was last seen here over. 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 Surgery was in 10 December. Status post surgery she had been in a half-way. She has had routine dressings to her sacral decubitus ulcer and had a wound VAC to her abdominal surgical ulcer. She denies any new complaints at this time. Progress of Wound: Stable. No new complaints. - Physical Exam Vital Signs Temp Pulse Resp BP 98.6 F 108 H 16 138/85 H 03/06/18 09:24 03/06/18 09:24 03/06/18 09:24 03/06/18 09:24 General: Alert, Oriented x3, Cooperative, No apparent distress HEENT: Atraumatic Oral: Moist Mucosa Neck: Supple Lungs: Normal air movement Abdomen: Soft, Non Tender Extremities: No cyanosis Skin: Ulcer/ Wound Wound Measurements and Assessment WC - Nurse 1 - General Ulcer Measurement Start: 03/06/18 09:17 Freq: Status: Active Protocol: Activity Type Activity Date Activity User E-Sign Co-Sign Detail Recorded Client Recorded Date Recorded By Document 03/06/18 09:24 DV [id number] 03/06/18 09:29 DV 03/06/18 09:24 Wound Center Nurse 1 [Ulcer Assessment] #6 lower mid abd -Combined with other wound No -Current Size (cm) - Length 4.5 -Current Size (cm) - Width 1.0 -Current Size (cm) - Depth 0.1 -Total Square Cm 4.50 -Photo Taken No -Epithelialization Medium 34-66% -Tunneling No -Undermining/Tunneling No -Circular Undermining Yes -Classification - Thickness Full Thickness without Exposed Support Structure -Exudate Amt Large (67-100%) #5 sacrum -Combined with other wound No -Current Size (cm) - Length 4.5 -Current Size (cm) - Width 1.0 -Current Size (cm) - Depth 0.1 -Total Square Cm 4.50 -Photo Taken No -Epithelialization Large 67-100% -Tunneling No -Undermining/Tunneling No -Circular Undermining No -Exudate Amt Large (67-100%) -Foul Odor after Cleansing No -Anesthetic Used 5% Lidocaine Gel [Edema Assessment] -Lower Limb Edema Present No WC - Nurse 2 - General Ulcer CM Notes Start: 03/06/18 09:17 Freq: Status: Active Protocol: Activity Type Activity Date Activity User E-Sign Co-Sign Detail Recorded Client Recorded Date Recorded By Document 03/06/18 09:32 MW [id number] 03/06/18 09:37 MW 03/06/18 09:32 Wound Center Nurse 2 [Procedure/Treatment] #6 lower mid abd -Time 09:32 -Correct Patient Yes -Correct Side, Site, Position Yes -Correct Procedure Yes -Procedure Performed Yes -Type of Procedure Debridement -Clinical Debridement Subcutaneous -Post Debridement Size (cm) - Length 4.1 -Post Debridement Size (cm) - Width 1.0 -Post Debridement Size (cm) - Depth 0.1 -Total Square Cm 4.10 -Wound/Ulcer Outcome Not Healed -Ulcer Cleansing Rinsed/ Irrigated with Saline -Foul Odor after Cleansing No -Bioengineered Tissue No -Bleeding Controlled with NA -Treatment Response Procedure Tolerated Well #5 sacrum -Time 09:33 -Correct Patient Yes -Correct Side, Site, Position Yes -Correct Procedure Yes -Procedure Performed Yes -Type of Procedure Debridement -Clinical Debridement Subcutaneous -Post Debridement Size (cm) - Length 1.3 -Post Debridement Size (cm) - Width 3.3 -Post Debridement Size (cm) - Depth 1.5 -Total Square Cm 4.29 -Wound/Ulcer Outcome Not Healed -Ulcer Cleansing Rinsed/ Irrigated with Saline -Foul Odor after Cleansing No -Bioengineered Tissue No -Bleeding Controlled with Pressure -Other circular undermining, @ 11 - 3.0cm -Treatment Response Procedure Tolerated Well [See Physician Procedure note for Specifics] Pain Scale: 0-10 Numeric [Pain] -Is Patient Pain Free? Yes Musculoskeletal: No Muscle Wasting Neurological: Cranial nerves II-XII grossly intact Psych/Mental Status: Normal Affect Debridement Note Post-Debridement Measurements/Treatment WC - Nurse 2 - General Ulcer CM Notes Start: 03/06/18 09:17 Freq: Status: Active Protocol: Activity Type Activity Date Activity User E-Sign Co-Sign Detail Recorded Client Recorded Date Recorded By Document 03/06/18 09:32 MW [id number] 03/06/18 09:37 MW 03/06/18 09:32 Wound Center Nurse 2 #6 lower mid abd -Time 09:32 -Correct Patient Yes -Correct Side, Site, Position Yes -Correct Procedure Yes -Procedure Performed Yes -Type of Procedure Debridement -Clinical Debridement Subcutaneous -Post Debridement Size (cm) - Length 4.1 -Post Debridement Size (cm) - Width 1.0 -Post Debridement Size (cm) - Depth 0.1 -Total Square Cm 4.10 -Wound/Ulcer Outcome Not Healed -Ulcer Cleansing Rinsed/ Irrigated with Saline -Foul Odor after Cleansing No -Bioengineered Tissue No -Bleeding Controlled with NA -Treatment Response Procedure Tolerated Well #5 sacrum -Time 09:33 -Correct Patient Yes -Correct Side, Site, Position Yes -Correct Procedure Yes -Procedure Performed Yes -Type of Procedure Debridement -Clinical Debridement Subcutaneous -Post Debridement Size (cm) - Length 1.3 -Post Debridement Size (cm) - Width 3.3 -Post Debridement Size (cm) - Depth 1.5 -Total Square Cm 4.29 -Wound/Ulcer Outcome Not Healed -Ulcer Cleansing Rinsed/ Irrigated with Saline -Foul Odor after Cleansing No -Bioengineered Tissue No -Bleeding Controlled with Pressure -Other circular undermining, @ 11 - 3.0cm -Treatment Response Procedure Tolerated Well Pain Scale: 0-10 Numeric Is Patient Pain Free? Yes Wound debrided: Sacral Wound Grade/Stage: Stage IV Type of Debridement: Excisional debridement Anesthesia Used: 4% Lidocaine Solution Depth: Down to and including healthy tissue, in the subcutaneous layer Percentage of wound debrided: 100 Instrument Used: 5mm curette Tissue Removed: Slough and devitalized tissue Severity: Fat Layer Exposed Amount of bleeding with debridement: Mild Bleeding Controlled with: Pressure Patient tolerated procedure well - Additional Wound Wound debrided: Abdominal Wound Grade/Stage: Stage III Type of Debridement: Excisional debridement Anesthesia Used: 4% Lidocaine Solution Depth: Down to and including healthy tissue, in the subcutaneous layer Percentage of wound debrided: 100 Instrument Used: 3mm curette Tissue Removed: Slough and devitalized tissue Severity: Fat Layer Exposed Amount of bleeding with debridement: Mild Bleeding Controlled with: Pressure Patient tolerated procedure: Patient tolerated procedure well Assessment/Plan Active Problems (Last Updated 08/09/17 @ 08:06 by Liz Baker) Non-healing surgical wound (Chronic) Pressure ulcer of sacral region, stage 4 (Chronic) Assessment: Stage IV sacral decubitus ulcer. Right heel stage III pressure ulcer. - Healed. Left heel stage III pressure ulcer - Healed. Post surgical abdominal wound Plan: Stable ulcer and wound. Debridement done as documented above, procedure was well tolerated. Increase tenderness of abdominal wound. Culture taken. Will switch to Chiquita with Adaptic over top ( Change every other day ) and continue Fibrocol to the sacral ulcer. Plan for sacral ulcer is surgical debridement after abdominal wound is healed. Scheduled to see Dr. Hansen on 03/11/18. Continue increased protein intake. Follow-up in 2 weeks. Advised to call with any questions or concerns. This note was generated with [employer] dictation software. It may contain incorrect words, spelling, and punctuation that were not noted in checking the note before signing.
--- NOTE | 2018-03-06 10:10 | PN.PCM_ITS ---
(1) Non-healing surgical wound Status: Chronic Current Visit: Yes Code(s): T81.89XA - Other complications of procedures, not elsewhere classified, initial encounter (2) Pressure ulcer of sacral region, stage 4 Status: Chronic Current Visit: Yes Code(s): L89.154 - Pressure ulcer of sacral region, stage 4 Type of Wound Chief Complaint: Stage IV sacral pressure ulceration; bilateral unstageable necrotic heel pressure ulcerations History of Wound: Ms. Chavez is a 67-year-old female who is well known to me in the wound center and was last seen here over. 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 Surgery was in 10 December. Status post surgery she had been in a care home. She has had routine dressings to her sacral decubitus ulcer and had a wound VAC to her abdominal surgical ulcer. She denies any new complaints at this time. Progress of Wound: Stable. No new complaints. - Physical Exam Vital Signs Temp Pulse Resp BP 98.6 F 108 H 16 138/85 H 03/06/18 09:24 03/06/18 09:24 03/06/18 09:24 03/06/18 09:24 General: Alert, Oriented x3, Cooperative, No apparent distress HEENT: Atraumatic Oral: Moist Mucosa Neck: Supple Lungs: Normal air movement Abdomen: Soft, Non Tender Extremities: No cyanosis Skin: Ulcer/ Wound Wound Measurements and Assessment WC - Nurse 1 - General Ulcer Measurement Start: 03/06/18 09:17 Freq: Status: Active Protocol: Activity Type Activity Date Activity User E-Sign Co-Sign Detail Recorded Client Recorded Date Recorded By Document 03/06/18 09:24 DV [id number] 03/06/18 09:29 DV 03/06/18 09:24 Wound Center Nurse 1 [Ulcer Assessment] #6 lower mid abd -Combined with other wound No -Current Size (cm) - Length 4.5 -Current Size (cm) - Width 1.0 -Current Size (cm) - Depth 0.1 -Total Square Cm 4.50 -Photo Taken No -Epithelialization Medium 34-66% -Tunneling No -Undermining/Tunneling No -Circular Undermining Yes -Classification - Thickness Full Thickness without Exposed Support Structure -Exudate Amt Large (67-100%) #5 sacrum -Combined with other wound No -Current Size (cm) - Length 4.5 -Current Size (cm) - Width 1.0 -Current Size (cm) - Depth 0.1 -Total Square Cm 4.50 -Photo Taken No -Epithelialization Large 67-100% -Tunneling No -Undermining/Tunneling No -Circular Undermining No -Exudate Amt Large (67-100%) -Foul Odor after Cleansing No -Anesthetic Used 5% Lidocaine Gel [Edema Assessment] -Lower Limb Edema Present No WC - Nurse 2 - General Ulcer CM Notes Start: 03/06/18 09:17 Freq: Status: Active Protocol: Activity Type Activity Date Activity User E-Sign Co-Sign Detail Recorded Client Recorded Date Recorded By Document 03/06/18 09:32 MW [id number] 03/06/18 09:37 MW 03/06/18 09:32 Wound Center Nurse 2 [Procedure/Treatment] #6 lower mid abd -Time 09:32 -Correct Patient Yes -Correct Side, Site, Position Yes -Correct Procedure Yes -Procedure Performed Yes -Type of Procedure Debridement -Clinical Debridement Subcutaneous -Post Debridement Size (cm) - Length 4.1 -Post Debridement Size (cm) - Width 1.0 -Post Debridement Size (cm) - Depth 0.1 -Total Square Cm 4.10 -Wound/Ulcer Outcome Not Healed -Ulcer Cleansing Rinsed/ Irrigated with Saline -Foul Odor after Cleansing No -Bioengineered Tissue No -Bleeding Controlled with NA -Treatment Response Procedure Tolerated Well #5 sacrum -Time 09:33 -Correct Patient Yes -Correct Side, Site, Position Yes -Correct Procedure Yes -Procedure Performed Yes -Type of Procedure Debridement -Clinical Debridement Subcutaneous -Post Debridement Size (cm) - Length 1.3 -Post Debridement Size (cm) - Width 3.3 -Post Debridement Size (cm) - Depth 1.5 -Total Square Cm 4.29 -Wound/Ulcer Outcome Not Healed -Ulcer Cleansing Rinsed/ Irrigated with Saline -Foul Odor after Cleansing No -Bioengineered Tissue No -Bleeding Controlled with Pressure -Other circular undermining, @ 11 - 3.0cm -Treatment Response Procedure Tolerated Well [See Physician Procedure note for Specifics] Pain Scale: 0-10 Numeric [Pain] -Is Patient Pain Free? Yes Musculoskeletal: No Muscle Wasting Neurological: Cranial nerves II-XII grossly intact Psych/Mental Status: Normal Affect Debridement Note Post-Debridement Measurements/Treatment WC - Nurse 2 - General Ulcer CM Notes Start: 03/06/18 09:17 Freq: Status: Active Protocol: Activity Type Activity Date Activity User E-Sign Co-Sign Detail Recorded Client Recorded Date Recorded By Document 03/06/18 09:32 MW [id number] 03/06/18 09:37 MW 03/06/18 09:32 Wound Center Nurse 2 #6 lower mid abd -Time 09:32 -Correct Patient Yes -Correct Side, Site, Position Yes -Correct Procedure Yes -Procedure Performed Yes -Type of Procedure Debridement -Clinical Debridement Subcutaneous -Post Debridement Size (cm) - Length 4.1 -Post Debridement Size (cm) - Width 1.0 -Post Debridement Size (cm) - Depth 0.1 -Total Square Cm 4.10 -Wound/Ulcer Outcome Not Healed -Ulcer Cleansing Rinsed/ Irrigated with Saline -Foul Odor after Cleansing No -Bioengineered Tissue No -Bleeding Controlled with NA -Treatment Response Procedure Tolerated Well #5 sacrum -Time 09:33 -Correct Patient Yes -Correct Side, Site, Position Yes -Correct Procedure Yes -Procedure Performed Yes -Type of Procedure Debridement -Clinical Debridement Subcutaneous -Post Debridement Size (cm) - Length 1.3 -Post Debridement Size (cm) - Width 3.3 -Post Debridement Size (cm) - Depth 1.5 -Total Square Cm 4.29 -Wound/Ulcer Outcome Not Healed -Ulcer Cleansing Rinsed/ Irrigated with Saline -Foul Odor after Cleansing No -Bioengineered Tissue No -Bleeding Controlled with Pressure -Other circular undermining, @ 11 - 3.0cm -Treatment Response Procedure Tolerated Well Pain Scale: 0-10 Numeric Is Patient Pain Free? Yes Wound debrided: Sacral Wound Grade/Stage: Stage IV Type of Debridement: Excisional debridement Anesthesia Used: 4% Lidocaine Solution Depth: Down to and including healthy tissue, in the subcutaneous layer Percentage of wound debrided: 100 Instrument Used: 5mm curette Tissue Removed: Slough and devitalized tissue Severity: Fat Layer Exposed Amount of bleeding with debridement: Mild Bleeding Controlled with: Pressure Patient tolerated procedure well - Additional Wound Wound debrided: Abdominal Wound Grade/Stage: Stage III Type of Debridement: Excisional debridement Anesthesia Used: 4% Lidocaine Solution Depth: Down to and including healthy tissue, in the subcutaneous layer Percentage of wound debrided: 100 Instrument Used: 3mm curette Tissue Removed: Slough and devitalized tissue Severity: Fat Layer Exposed Amount of bleeding with debridement: Mild Bleeding Controlled with: Pressure Patient tolerated procedure: Patient tolerated procedure well Assessment/Plan Active Problems (Last Updated 08/09/17 @ 08:06 by Liz Baker) Non-healing surgical wound (Chronic) Pressure ulcer of sacral region, stage 4 (Chronic) Assessment: Stage IV sacral decubitus ulcer. Right heel stage III pressure ulcer. - Healed. Left heel stage III pressure ulcer - Healed. Post surgical abdominal wound Plan: Stable ulcer and wound. Debridement done as documented above, procedure was well tolerated. Increase tenderness of abdominal wound. Culture taken. Will switch to Chiquita with Adaptic over top ( Change every other day ) and continue Fibrocol to the sacral ulcer. Plan for sacral ulcer is surgical debridement after abdominal wound is healed. Scheduled to see Dr. Hansen on 03/11/18. Continue increased protein intake. Follow-up in 2 weeks. Advised to call with any questions or concerns. This note was generated with [employer] dictation software. It may contain incorrect words, spelling, and punctuation that were not noted in checking the note before signing.
[2018-03-11 08:37] VITALS: BP 150/89; PULSE 108; RESP 18; TEMP 36.2; BMI 40.5
--- NOTE | 2018-03-11 22:39 | PCM.WC.PN ---
Type of Wound Date of Service: 03/11/18 Chief Complaint: Sacral pressure sore, Stage IV. History of Wound: Patient comes in for further evaluation of her sacral pressure sore. I initially saw her in August. A CT was done which showed no evidence of osteomyelitis, but did show evidence of a colovaginal fistula. The fistula was surgically repaired in December at [facility]. She had a sacral wound culture done on 01/02/18 and it showed Staphylococcus aureus. She was treated with antibiotics. She was recently discharged from a longterm. She is also being treated for a nonhealing abdominal wall wound from her surgery in December. She had a recent abdominal wall wound culture done on 03/06/18 which showed Staphylococcus aureus and was placed on antibiotics. I was asked to evaluate her sacral pressure sore for surgical options for treatment. Progress of Wound: Stable. - Physical Exam Vital Signs Temp Pulse Resp BP 97.1 F L 108 H 18 150/89 H 03/11/18 08:37 03/11/18 08:37 03/11/18 08:37 03/11/18 08:37 Wound Measurements and Assessment WC - Nurse 1 - General Ulcer Measurement Start: 03/06/18 09:17 Freq: Status: Active Protocol: Activity Type Activity Date Activity User E-Sign Co-Sign Detail Recorded Client Recorded Date Recorded By Document 03/11/18 08:37 DL [id number] 03/11/18 08:46 DL 03/11/18 08:37 Wound Center Nurse 1 [Ulcer Assessment] #6 lower mid abd -Current Size (cm) - Length 4 -Current Size (cm) - Width 0.6 -Current Size (cm) - Depth 0.1 -Total Square Cm 2.4 -Photo Taken No -Exudate Amt Small (1-33%) -Exudate Type Serosanguineous -Wound Margin Distinct, Outline Attached -Granulation Amt Large (67-100%) -Granulation Quality Red -Necrosis Amt None Present (0 %) -Structure Exposed N/A -Texture (Amanda-wound Skin Appearance) Scarring -Moisture (Amanda-wound Skin Appearance No Abnormality ) -Color (Amanda-wound Skin Appearance) No Abnormality -Temperature (Amanda-wound Skin No Abnormality Appearance) (Pt Warm) -Ulcer Cleansing Wound Cleanser -Foul Odor after Cleansing No -Anesthetic Used 4% Lidocaine Solution #5 sacrum -Current Size (cm) - Length 1.1 -Current Size (cm) - Width 3.7 -Current Size (cm) - Depth 1.8 -Total Square Cm 4.07 -Photo Taken No -Maximum Distance #2 (cm) 3.3 -Circular Undermining Yes -Exudate Amt Medium (34-66%) -Exudate Type Serosanguineous -Wound Margin Thickened & Rolled Under -Granulation Amt Medium (34-66%) -Granulation Quality [place] -Necrosis Amt Medium (34-66%) -Necrotic Tissue Type Adherent Slough -Structure Exposed N/A -Texture (Amanda-wound Skin Appearance) Scarring -Moisture (Amanda-wound Skin Appearance No Abnormality ) -Color (Amanda-wound Skin Appearance) No Abnormality -Temperature (Amanda-wound Skin No Abnormality Appearance) (Pt Warm) -Ulcer Cleansing Wound Cleanser -Foul Odor after Cleansing No -Anesthetic Used 4% Lidocaine Solution WC - Nurse 2 - General Ulcer CM Notes Start: 03/06/18 09:17 Freq: Status: Active Protocol: Activity Type Activity Date Activity User E-Sign Co-Sign Detail Recorded Client Recorded Date Recorded By Document 03/11/18 09:03 [id number] 03/11/18 09:12 [email or web address] 03/11/18 09:03 Wound Center Nurse 2 [Procedure/Treatment] #6 lower mid abd -Time 09:05 -Correct Patient No -Correct Side, Site, Position No -Correct Procedure No -Procedure Performed No -Wound/Ulcer Outcome Not Healed -Foul Odor after Cleansing No -Bioengineered Tissue No #5 sacrum -Time 09:05 -Correct Patient Yes -Correct Side, Site, Position Yes -Correct Procedure Yes -Procedure Performed Yes -Type of Procedure Debridement -Clinical Debridement Muscle -Post Debridement Size (cm) - Length 1.2 -Post Debridement Size (cm) - Width 3.8 -Post Debridement Size (cm) - Depth 1.8 -Total Square Cm 4.56 -Ulcer Cleansing Rinsed/ Irrigated with Saline -Foul Odor after Cleansing No -Bioengineered Tissue No -Bleeding Controlled with Pressure -Treatment Response Procedure Tolerated Well [See Physician Procedure note for Specifics] Pain Scale: 0-10 Numeric [Pain] -Is Patient Pain Free? Yes Debridement Note Post-Debridement Measurements/Treatment WC - Nurse 2 - General Ulcer CM Notes Start: 03/06/18 09:17 Freq: Status: Active Protocol: Activity Type Activity Date Activity User E-Sign Co-Sign Detail Recorded Client Recorded Date Recorded By Document 03/06/18 09:32 MW [id number] 03/06/18 09:37 MW Document 03/11/18 09:03 JF [id number] 03/11/18 09:12 03/06/18 10 09:32 09:03 Wound Center Nurse 2 #6 lower mid abd -Time 09:32 09:05 -Correct Patient Yes No -Correct Side, Site, Position Yes No -Correct Procedure Yes No -Procedure Performed Yes No -Type of Procedure Debridement -Clinical Debridement Subcutaneous -Post Debridement Size (cm) - Length 4.1 -Post Debridement Size (cm) - Width 1.0 -Post Debridement Size (cm) - Depth 0.1 -Total Square Cm 4.10 -Wound/Ulcer Outcome Not Healed Not Healed -Ulcer Cleansing Rinsed/ Irrigated with Saline -Foul Odor after Cleansing No No -Bioengineered Tissue No No -Bleeding Controlled with NA -Treatment Response Procedure Tolerated Well #5 sacrum -Time 09:33 09:05 -Correct Patient Yes Yes -Correct Side, Site, Position Yes Yes -Correct Procedure Yes Yes -Procedure Performed Yes Yes -Type of Procedure Debridement Debridement -Clinical Debridement Subcutaneous Muscle -Post Debridement Size (cm) - Length 1.3 1.2 -Post Debridement Size (cm) - Width 3.3 3.8 -Post Debridement Size (cm) - Depth 1.5 1.8 -Total Square Cm 4.29 4.56 -Wound/Ulcer Outcome Not Healed -Ulcer Cleansing Rinsed/ Rinsed/ Irrigated with Irrigated with Saline Saline -Foul Odor after Cleansing No No -Bioengineered Tissue No No -Bleeding Controlled with Pressure Pressure -Other circular undermining, @ 11 - 3.0cm -Treatment Response Procedure Procedure Tolerated Well Tolerated Well Pain Scale: 0-10 Numeric Is Patient Pain Free? Yes Yes Wound debrided: #5 Sacral area. Laterality: Not Applicable Wound Grade/Stage: IV. Type of Debridement: Excisional debridement Anesthesia Used: 4% Lidocaine Solution Depth: Down to and including healthy tissue, in the subcutaneous layer, to muscle, to bone - bone is palpable but not debrided. Percentage of wound debrided: 100 Instrument Used: 7mm curette Tissue Removed: subcutaneous tissue and muscle. Severity: Fat Layer Exposed - muscle is exposed. bone is palpable but not exposed. Amount of bleeding with debridement: Mild Bleeding Controlled with: Pressure Patient tolerated procedure well - Additional Wound Wound debrided: #6 Abdominal wall wound. Laterality: Not Applicable Wound Grade/Stage: 3. Patient tolerated procedure: - - wound was not debrided today enid Berger was asked to evaluate the sacral pressure sore for operative debridement. Her Wound Center MD will continue to manage the abdominal wall wound with Silver dressing changes daily. Assessment/Plan Assessment: 1. Sacral pressure sore, Stage IV. 2. Nonhealing abdominal wall wound from her surgery in December. 3. s/p repair colovaginal fistula. Plan: Continue Fibracol dressing changes to the sacrum. Continue Silver dressing changes to the abdominal wall wound. Her sacral pressure sore is stable but has some undermining. There is abnormal scar tissue present that will not heal without operative debridement of the pressure sore. If it extends down to the bone than a partial ostectomy for osteomyelitis will be done. Postop will begin wound care with the VAC. Depending on how well healing occurs, she may need additional surgery with a fasciocutaneous or muscle flap for closure. Because she is ambulatory, her ulcer may heal with aggressive wound care, taking care of any infection, and maximizing nutrition. Will check a Prealbumin at the time of surgery. Surgery will be done under general anesthesia with a surgical observation overnight stay at the hospital. The following day the VAC will be applied. Tissue will be sent to Pathology and Microbiology. A positive culture will necessitate antibiotic therapy. Patient was informed of the risks and complications of the procedure including alternatives to surgery. These were discussed with her personally. She voices understanding and wishes to proceed. She understands the pressure sore will be made bigger in order to make the wound care easier with the VAC. With the amount of undermining, it is harder to heal because it is hard to pack the edges consistently because they are not visualized. Followup with Wound Center MD until the surgery.
[2018-03-20 08:45] VITALS: BP 137/78; PULSE 98; RESP 18; TEMP 36.8; BMI 40.5
--- NOTE | 2018-03-20 10:51 | PCM.WC.PN ---
(1) Non-healing surgical wound Status: Chronic Current Visit: Yes Code(s): T81.89XA - Other complications of procedures, not elsewhere classified, initial encounter (2) Pressure ulcer of sacral region, stage 4 Status: Chronic Current Visit: Yes Code(s): L89.154 - Pressure ulcer of sacral region, stage 4 Type of Wound Chief Complaint: Sacral pressure sore, Stage IV. History of Wound: Patient comes in for further evaluation of her sacral pressure sore. I initially saw her in August. A CT was done which showed no evidence of osteomyelitis, but did show evidence of a colovaginal fistula. The fistula was surgically repaired in December at [facility]. She had a sacral wound culture done on 01/02/18 and it showed Staphylococcus aureus. She was treated with antibiotics. [facility] was [facility] She is also being treated for a nonhealing abdominal wall wound from her surgery in December. She had a recent abdominal wall wound culture done on 03/06/18 which showed Staphylococcus aureus and was placed on antibiotics. I was asked to evaluate her sacral pressure sore for surgical options for treatment. Progress of Wound: No new complaints at this time. Follow-up with Dr. Hansen or sacral ulcer. - Physical Exam Vital Signs Temp Pulse Resp BP 98.2 F 98 18 137/78 H 03/20/18 08:45 03/20/18 08:45 03/20/18 08:45 03/20/18 08:45 General: Alert, Oriented x3, Cooperative, No apparent distress HEENT: Atraumatic Oral: Moist Mucosa Neck: Supple Lungs: Normal air movement Abdomen: Soft, Non Tender Extremities: No cyanosis Skin: Ulcer/ Wound Wound Measurements and Assessment WC - Nurse 1 - General Ulcer Measurement Start: 03/06/18 09:17 Freq: Status: Active Protocol: Activity Type Activity Date Activity User E-Sign Co-Sign Detail Recorded Client Recorded Date Recorded By Document 03/20/18 08:45 TN [id number] 03/20/18 08:51 TN 03/20/18 08:45 Wound Center Nurse 1 [Ulcer Assessment] #6 lower mid abd -Combined with other wound No -Current Size (cm) - Length 0.1 -Current Size (cm) - Width 0.1 -Current Size (cm) - Depth 0.1 -Total Square Cm 0.01 -Photo Taken No -Epithelialization None Present -Tunneling No -Undermining/Tunneling No -Circular Undermining No -Classification - Thickness Full Thickness without Exposed Support Structure -Wound Margin Flat & Intact -Granulation Amt None Present (0 %) -Necrosis Amt Small (1-33%) -Necrotic Tissue Type Eschar -Structure Exposed None/Limited to Skin Breakdown -Texture (Amanda-wound Skin Appearance) Assessed Scarring -Moisture (Amanda-wound Skin Appearance No Abnormality ) Assessed -Color (Amanda-wound Skin Appearance) Assessed Erythema -Temperature (Amanda-wound Skin No Abnormality Appearance) (Pt Warm) -Tenderness on Palpation (Amanda-wound No Skin Appearance) -Ulcer Cleansing Rinsed/ Irrigated with Saline -Foul Odor after Cleansing No -Anesthetic Used 5% Lidocaine Gel #5 sacrum -Combined with other wound No -Current Size (cm) - Length 1.4 -Current Size (cm) - Width 3.5 -Current Size (cm) - Depth 1.5 -Total Square Cm 4.90 -Photo Taken No -Epithelialization None Present -Tunneling No -Undermining/Tunneling No -Circular Undermining Yes -Classification - Thickness Full Thickness without Exposed Support Structure -Change in Wound Grade/Stage No Query Text:If change please identify the Stage/Grade in the comment (ie. S2 G3) -Exudate Amt Large (67-100%) -Exudate Type Yellow/Green -Wound Margin Thickened & Rolled Under -Granulation Amt Medium (34-66%) -Granulation Quality [place] -Slough/Fibrin Yes -Necrosis Amt Medium (34-66%) -Necrotic Tissue Type Adherent Slough -Structure Exposed None/Limited to Skin Breakdown -Texture (Amanda-wound Skin Appearance) Assessed Scarring -Moisture (Amanda-wound Skin Appearance No Abnormality ) Assessed -Color (Amanda-wound Skin Appearance) Assessed Erythema -Temperature (Amanda-wound Skin No Abnormality Appearance) (Pt Warm) -Tenderness on Palpation (Amanda-wound No Skin Appearance) -Ulcer Cleansing Rinsed/ Irrigated with Saline -Foul Odor after Cleansing No -Anesthetic Used 5% Lidocaine Gel [Edema Assessment] -Lower Limb Edema Present No WC - Nurse 2 - General Ulcer CM Notes Start: 03/06/18 09:17 Freq: Status: Active Protocol: Activity Type Activity Date Activity User E-Sign Co-Sign Detail Recorded Client Recorded Date Recorded By Document 03/20/18 09:26 MW [id number] 03/20/18 09:32 MW 03/20/18 09:26 Wound Center Nurse 2 [Procedure/Treatment] #6 lower mid abd -Time 09:30 -Correct Patient Yes -Correct Side, Site, Position Yes -Correct Procedure Yes -Procedure Performed Yes -Type of Procedure Debridement -Clinical Debridement Selective -Post Debridement Size (cm) - Length 0.1 -Post Debridement Size (cm) - Width 0.1 -Post Debridement Size (cm) - Depth 0.1 -Total Square Cm 0.01 -Wound/Ulcer Outcome Not Healed -Ulcer Cleansing Rinsed/ Irrigated with Saline -Foul Odor after Cleansing No -Bioengineered Tissue No -Bleeding Controlled with Pressure -Treatment Response Procedure Tolerated Well #5 sacrum -Time 09:30 -Correct Patient Yes -Correct Side, Site, Position Yes -Correct Procedure Yes -Procedure Performed Yes -Type of Procedure Debridement -Clinical Debridement Subcutaneous -Post Debridement Size (cm) - Length 1.2 -Post Debridement Size (cm) - Width 3.5 -Post Debridement Size (cm) - Depth 1.2 -Total Square Cm 4.20 -Wound/Ulcer Outcome Not Healed -Ulcer Cleansing Rinsed/ Irrigated with Saline -Foul Odor after Cleansing No -Bioengineered Tissue No -Bleeding Controlled with Pressure -Treatment Response Procedure Tolerated Well [See Physician Procedure note for Specifics] Pain Scale: 0-10 Numeric [Pain] -Is Patient Pain Free? Yes Musculoskeletal: No Muscle Wasting Neurological: Cranial nerves II-XII grossly intact Psych/Mental Status: Normal Affect Debridement Note Post-Debridement Measurements/Treatment WC - Nurse 2 - General Ulcer CM Notes Start: 03/06/18 09:17 Freq: Status: Active Protocol: Activity Type Activity Date Activity User E-Sign Co-Sign Detail Recorded Client Recorded Date Recorded By Document 03/06/18 09:32 MW [id number] 03/06/18 09:37 MW Document 03/11/18 09:03 JF [id number] 03/11/18 09:12 JF Document 03/20/18 09:26 MW [id number] 03/20/18 09:32 MW 03/06/18 03/11/18 03/20/18 09:32 09:03 09:26 Wound Center Nurse 2 #6 lower mid abd -Time 09:32 09:05 09:30 -Correct Patient Yes No Yes -Correct Side, Site, Position Yes No Yes -Correct Procedure Yes No Yes -Procedure Performed Yes No Yes -Type of Procedure Debridement Debridement -Clinical Debridement Subcutaneous Selective -Post Debridement Size (cm) - Length 4.1 0.1 -Post Debridement Size (cm) - Width 1.0 0.1 -Post Debridement Size (cm) - Depth 0.1 0.1 -Total Square Cm 4.10 0.01 -Wound/Ulcer Outcome Not Healed Not Healed Not Healed -Ulcer Cleansing Rinsed/ Rinsed/ Irrigated with Irrigated with Saline Saline -Foul Odor after Cleansing No No No -Bioengineered Tissue No No No -Bleeding Controlled with NA Pressure -Treatment Response Procedure Procedure Tolerated Well Tolerated Well #5 sacrum -Time 09:33 09:05 09:30 -Correct Patient Yes Yes Yes -Correct Side, Site, Position Yes Yes Yes -Correct Procedure Yes Yes Yes -Procedure Performed Yes Yes Yes -Type of Procedure Debridement Debridement Debridement -Clinical Debridement Subcutaneous Muscle Subcutaneous -Post Debridement Size (cm) - Length 1.3 1.2 1.2 -Post Debridement Size (cm) - Width 3.3 3.8 3.5 -Post Debridement Size (cm) - Depth 1.5 1.8 1.2 -Total Square Cm 4.29 4.56 4.20 -Wound/Ulcer Outcome Not Healed Not Healed -Ulcer Cleansing Rinsed/ Rinsed/ Rinsed/ Irrigated with Irrigated with Irrigated with Saline Saline Saline -Foul Odor after Cleansing No No No -Bioengineered Tissue No No No -Bleeding Controlled with Pressure Pressure Pressure -Other circular undermining, @ 11 - 3.0cm -Treatment Response Procedure Procedure Procedure Tolerated Well Tolerated Well Tolerated Well Pain Scale: 0-10 Numeric Is Patient Pain Free? Yes Yes Yes Wound debrided: Abdominal Wound Grade/Stage: Stage III Type of Debridement: Selective debridement Anesthesia Used: 4% Lidocaine Solution Depth: Down to and including healthy tissue Percentage of wound debrided: 100 Instrument Used: 7mm curette Tissue Removed: Devitalized tissue Severity: Limited To Skin Breakdown Amount of bleeding with debridement: None Patient tolerated procedure well - Additional Wound Wound debrided: Sacral ulcer Wound Grade/Stage: Stage IV Type of Debridement: Excisional debridement Anesthesia Used: 4% Lidocaine Solution Depth: Down to and including healthy tissue, in the subcutaneous layer Percentage of wound debrided: 100 Instrument Used: 7mm curette Tissue Removed: Slough and devitalized tissue Severity: Fat Layer Exposed Amount of bleeding with debridement: Mild Bleeding Controlled with: Pressure Patient tolerated procedure: Patient tolerated procedure well Assessment/Plan Active Problems (Last Updated 08/09/17 @ 08:06 by Liz Baker) Non-healing surgical wound (Chronic) Pressure ulcer of sacral region, stage 4 (Chronic) Assessment: 1. Sacral pressure sore, Stage IV. 2. Nonhealing abdominal wall wound from her surgery in December. 3. s/p repair colovaginal fistula. Plan: Abdominal wound has essentially healed. Only very minimal area left. Did follow-up with Dr. Hansen for sacral ulcer and plan is for surgical debridement in April and subsequent wound VAC placement. Debridement of boot ulcer/wound done, procedure was well-tolerated. Continue Fibracol to sacral ulcer and Chiquita to abdominal wound with Adaptic over top. Change every other day. Continue increased protein intake. All her questions were answered and she was asked to call with any further questions or concerns. Follow-up in 1 week. This note was generated with [employer] dictation software. It may contain incorrect words, spelling, and punctuation that were not noted in checking the note before signing.
--- NOTE | 2018-03-20 10:56 | PN.PCM_ITS ---
(1) Non-healing surgical wound Status: Chronic Current Visit: Yes Code(s): T81.89XA - Other complications of procedures, not elsewhere classified, initial encounter (2) Pressure ulcer of sacral region, stage 4 Status: Chronic Current Visit: Yes Code(s): L89.154 - Pressure ulcer of sacral region, stage 4 Type of Wound Chief Complaint: Sacral pressure sore, Stage IV. History of Wound: Patient comes in for further evaluation of her sacral pressure sore. I initially saw her in August. A CT was done which showed no evidence of osteomyelitis, but did show evidence of a colovaginal fistula. The fistula was surgically repaired in December at [facility]. She had a sacral wound culture done on 01/02/18 and it showed Staphylococcus aureus. She was treated with antibiotics. [facility] was [facility]. She is also being treated for a nonhealing abdominal wall wound from her surgery in December. She had a recent abdominal wall wound culture done on 03/06/18 which showed Staphylococcus aureus and was placed on antibiotics. I was asked to evaluate her sacral pressure sore for surgical options for treatment. Progress of Wound: No new complaints at this time. Follow-up with Dr. Hansen or sacral ulcer. - Physical Exam Vital Signs Temp Pulse Resp BP 98.2 F 98 18 137/78 H 03/20/18 08:45 03/20/18 08:45 03/20/18 08:45 03/20/18 08:45 General: Alert, Oriented x3, Cooperative, No apparent distress HEENT: Atraumatic Oral: Moist Mucosa Neck: Supple Lungs: Normal air movement Abdomen: Soft, Non Tender Extremities: No cyanosis Skin: Ulcer/ Wound Wound Measurements and Assessment WC - Nurse 1 - General Ulcer Measurement Start: 03/06/18 09:17 Freq: Status: Active Protocol: Activity Type Activity Date Activity User E-Sign Co-Sign Detail Recorded Client Recorded Date Recorded By Document 03/20/18 08:45 TN [id number] 03/20/18 08:51 TN 03/20/18 08:45 Wound Center Nurse 1 [Ulcer Assessment] #6 lower mid abd -Combined with other wound No -Current Size (cm) - Length 0.1 -Current Size (cm) - Width 0.1 -Current Size (cm) - Depth 0.1 -Total Square Cm 0.01 -Photo Taken No -Epithelialization None Present -Tunneling No -Undermining/Tunneling No -Circular Undermining No -Classification - Thickness Full Thickness without Exposed Support Structure -Wound Margin Flat & Intact -Granulation Amt None Present (0 %) -Necrosis Amt Small (1-33%) -Necrotic Tissue Type Eschar -Structure Exposed None/Limited to Skin Breakdown -Texture (Amanda-wound Skin Appearance) Assessed Scarring -Moisture (Amanda-wound Skin Appearance No Abnormality ) Assessed -Color (Amanda-wound Skin Appearance) Assessed Erythema -Temperature (Amanda-wound Skin No Abnormality Appearance) (Pt Warm) -Tenderness on Palpation (Amanda-wound No Skin Appearance) -Ulcer Cleansing Rinsed/ Irrigated with Saline -Foul Odor after Cleansing No -Anesthetic Used 5% Lidocaine Gel #5 sacrum -Combined with other wound No -Current Size (cm) - Length 1.4 -Current Size (cm) - Width 3.5 -Current Size (cm) - Depth 1.5 -Total Square Cm 4.90 -Photo Taken No -Epithelialization None Present -Tunneling No -Undermining/Tunneling No -Circular Undermining Yes -Classification - Thickness Full Thickness without Exposed Support Structure -Change in Wound Grade/Stage No Query Text:If change please identify the Stage/Grade in the comment (ie. S2 G3) -Exudate Amt Large (67-100%) -Exudate Type Yellow/Green -Wound Margin Thickened & Rolled Under -Granulation Amt Medium (34-66%) -Granulation Quality [place] -Slough/Fibrin Yes -Necrosis Amt Medium (34-66%) -Necrotic Tissue Type Adherent Slough -Structure Exposed None/Limited to Skin Breakdown -Texture (Amanda-wound Skin Appearance) Assessed Scarring -Moisture (Amanda-wound Skin Appearance No Abnormality ) Assessed -Color (Amanda-wound Skin Appearance) Assessed Erythema -Temperature (Amanda-wound Skin No Abnormality Appearance) (Pt Warm) -Tenderness on Palpation (Amanda-wound No Skin Appearance) -Ulcer Cleansing Rinsed/ Irrigated with Saline -Foul Odor after Cleansing No -Anesthetic Used 5% Lidocaine Gel [Edema Assessment] -Lower Limb Edema Present No WC - Nurse 2 - General Ulcer CM Notes Start: 03/06/18 09:17 Freq: Status: Active Protocol: Activity Type Activity Date Activity User E-Sign Co-Sign Detail Recorded Client Recorded Date Recorded By Document 03/20/18 09:26 MW [id number] 03/20/18 09:32 MW 03/20/18 09:26 Wound Center Nurse 2 [Procedure/Treatment] #6 lower mid abd -Time 09:30 -Correct Patient Yes -Correct Side, Site, Position Yes -Correct Procedure Yes -Procedure Performed Yes -Type of Procedure Debridement -Clinical Debridement Selective -Post Debridement Size (cm) - Length 0.1 -Post Debridement Size (cm) - Width 0.1 -Post Debridement Size (cm) - Depth 0.1 -Total Square Cm 0.01 -Wound/Ulcer Outcome Not Healed -Ulcer Cleansing Rinsed/ Irrigated with Saline -Foul Odor after Cleansing No -Bioengineered Tissue No -Bleeding Controlled with Pressure -Treatment Response Procedure Tolerated Well #5 sacrum -Time 09:30 -Correct Patient Yes -Correct Side, Site, Position Yes -Correct Procedure Yes -Procedure Performed Yes -Type of Procedure Debridement -Clinical Debridement Subcutaneous -Post Debridement Size (cm) - Length 1.2 -Post Debridement Size (cm) - Width 3.5 -Post Debridement Size (cm) - Depth 1.2 -Total Square Cm 4.20 -Wound/Ulcer Outcome Not Healed -Ulcer Cleansing Rinsed/ Irrigated with Saline -Foul Odor after Cleansing No -Bioengineered Tissue No -Bleeding Controlled with Pressure -Treatment Response Procedure Tolerated Well [See Physician Procedure note for Specifics] Pain Scale: 0-10 Numeric [Pain] -Is Patient Pain Free? Yes Musculoskeletal: No Muscle Wasting Neurological: Cranial nerves II-XII grossly intact Psych/Mental Status: Normal Affect Debridement Note Post-Debridement Measurements/Treatment WC - Nurse 2 - General Ulcer CM Notes Start: 03/06/18 09:17 Freq: Status: Active Protocol: Activity Type Activity Date Activity User E-Sign Co-Sign Detail Recorded Client Recorded Date Recorded By Document 03/06/18 09:32 MW [id number] 03/06/18 09:37 MW Document 03/11/18 09:03 JF [id number] 03/11/18 09:12 JF Document 03/20/18 09:26 MW [id number] 03/20/18 09:32 MW 03/06/18 03/11/18 03/20/18 09:32 09:03 09:26 Wound Center Nurse 2 #6 lower mid abd -Time 09:32 09:05 09:30 -Correct Patient Yes No Yes -Correct Side, Site, Position Yes No Yes -Correct Procedure Yes No Yes -Procedure Performed Yes No Yes -Type of Procedure Debridement Debridement -Clinical Debridement Subcutaneous Selective -Post Debridement Size (cm) - Length 4.1 0.1 -Post Debridement Size (cm) - Width 1.0 0.1 -Post Debridement Size (cm) - Depth 0.1 0.1 -Total Square Cm 4.10 0.01 -Wound/Ulcer Outcome Not Healed Not Healed Not Healed -Ulcer Cleansing Rinsed/ Rinsed/ Irrigated with Irrigated with Saline Saline -Foul Odor after Cleansing No No No -Bioengineered Tissue No No No -Bleeding Controlled with NA Pressure -Treatment Response Procedure Procedure Tolerated Well Tolerated Well #5 sacrum -Time 09:33 09:05 09:30 -Correct Patient Yes Yes Yes -Correct Side, Site, Position Yes Yes Yes -Correct Procedure Yes Yes Yes -Procedure Performed Yes Yes Yes -Type of Procedure Debridement Debridement Debridement -Clinical Debridement Subcutaneous Muscle Subcutaneous -Post Debridement Size (cm) - Length 1.3 1.2 1.2 -Post Debridement Size (cm) - Width 3.3 3.8 3.5 -Post Debridement Size (cm) - Depth 1.5 1.8 1.2 -Total Square Cm 4.29 4.56 4.20 -Wound/Ulcer Outcome Not Healed Not Healed -Ulcer Cleansing Rinsed/ Rinsed/ Rinsed/ Irrigated with Irrigated with Irrigated with Saline Saline Saline -Foul Odor after Cleansing No No No -Bioengineered Tissue No No No -Bleeding Controlled with Pressure Pressure Pressure -Other circular undermining, @ 11 - 3.0cm -Treatment Response Procedure Procedure Procedure Tolerated Well Tolerated Well Tolerated Well Pain Scale: 0-10 Numeric Is Patient Pain Free? Yes Yes Yes Wound debrided: Abdominal Wound Grade/Stage: Stage III Type of Debridement: Selective debridement Anesthesia Used: 4% Lidocaine Solution Depth: Down to and including healthy tissue Percentage of wound debrided: 100 Instrument Used: 7mm curette Tissue Removed: Devitalized tissue Severity: Limited To Skin Breakdown Amount of bleeding with debridement: None Patient tolerated procedure well - Additional Wound Wound debrided: Sacral ulcer Wound Grade/Stage: Stage IV Type of Debridement: Excisional debridement Anesthesia Used: 4% Lidocaine Solution Depth: Down to and including healthy tissue, in the subcutaneous layer Percentage of wound debrided: 100 Instrument Used: 7mm curette Tissue Removed: Slough and devitalized tissue Severity: Fat Layer Exposed Amount of bleeding with debridement: Mild Bleeding Controlled with: Pressure Patient tolerated procedure: Patient tolerated procedure well Assessment/Plan Active Problems (Last Updated 08/09/17 @ 08:06 by Liz Baker) Non-healing surgical wound (Chronic) Pressure ulcer of sacral region, stage 4 (Chronic) Assessment: 1. Sacral pressure sore, Stage IV. 2. Nonhealing abdominal wall wound from her surgery in December. 3. s/p repair colovaginal fistula. Plan: Abdominal wound has essentially healed. Only very minimal area left. Did follow-up with Dr. Hansen for sacral ulcer and plan is for surgical debridement in April and subsequent wound VAC placement. Debridement of boot ulcer/wound done, procedure was well-tolerated. Continue Fibracol to sacral ulcer and Chiquita to abdominal wound with Adaptic over top. Change every other day. Continue increased protein intake. All her questions were answered and she was asked to call with any further questions or concerns. Follow-up in 1 week. This note was generated with [employer] dictation software. It may contain incorrect words, spelling, and punctuation that were not noted in checking the note before signing.
[2018-03-27 08:22] VITALS: BP 144/80; PULSE 111; RESP 18; TEMP 36.2; BMI 40.5
--- NOTE | 2018-03-27 09:02 | PCM.WC.PN ---
(1) Non-healing surgical wound Status: Chronic Current Visit: Yes Code(s): T81.89XA - Other complications of procedures, not elsewhere classified, initial encounter (2) Pressure ulcer of sacral region, stage 4 Status: Chronic Current Visit: Yes Code(s): L89.154 - Pressure ulcer of sacral region, stage 4 Type of Wound Chief Complaint: Sacral pressure sore, Stage IV. History of Wound: Patient comes in for further evaluation of her sacral pressure sore. I initially saw her in August. A CT was done which showed no evidence of osteomyelitis, but did show evidence of a colovaginal fistula. The fistula was surgically repaired in December at [facility]. She had a sacral wound culture done on 01/02/18 and it showed Staphylococcus aureus. She was treated with antibiotics. She was recently discharged from a group home. She is also being treated for a nonhealing abdominal wall wound from her surgery in December. She had a recent abdominal wall wound culture done on 03/06/18 which showed Staphylococcus aureus and was placed on antibiotics. I was asked to evaluate her sacral pressure sore for surgical options for treatment. Progress of Wound: No new complaints at this time. Abdominal wound has healed. - Physical Exam Vital Signs Temp Pulse Resp BP 97.1 F L 111 H 18 144/80 H 03/27/18 08:22 03/27/18 08:22 03/27/18 08:22 03/27/18 08:22 General: Alert, Oriented x3, Cooperative, No apparent distress HEENT: Atraumatic Oral: Moist Mucosa Neck: Supple Lungs: Normal air movement Abdomen: Soft, Non Tender Extremities: No cyanosis Skin: Ulcer/ Wound Wound Measurements and Assessment WC - Nurse 1 - General Ulcer Measurement Start: 03/06/18 09:17 Freq: Status: Active Protocol: Activity Type Activity Date Activity User E-Sign Co-Sign Detail Recorded Client Recorded Date Recorded By Document 03/27/18 08:22 RB [id number] 03/27/18 08:29 RB 03/27/18 08:22 Wound Center Nurse 1 [Ulcer Assessment] #6 lower mid abd -Combined with other wound No -Current Size (cm) - Length 0 -Current Size (cm) - Width 0 -Current Size (cm) - Depth 0 -Total Square Cm 0 -Photo Taken Yes -Epithelialization Large 67-100% -Tunneling No -Undermining/Tunneling No -Circular Undermining No -Exudate Amt None Present (0 %) -Wound Margin Distinct, Outline Attached -Granulation Amt Large (67-100%) -Granulation Quality [place] -Slough/Fibrin No -Necrosis Amt None Present (0 %) -Texture (Amanda-wound Skin Appearance) Assessed -Moisture (Amanda-wound Skin Appearance Assessed ) -Color (Amanda-wound Skin Appearance) Assessed -Temperature (Amanda-wound Skin No Abnormality Appearance) (Pt Warm) -Tenderness on Palpation (Amanda-wound No Skin Appearance) -Ulcer Cleansing Rinsed/ Irrigated with Saline -Foul Odor after Cleansing No #5 sacrum -Combined with other wound No -Current Size (cm) - Length 1.1 -Current Size (cm) - Width 3.2 -Current Size (cm) - Depth 1.1 -Total Square Cm 3.52 -Photo Taken Yes -Tunneling No -Undermining/Tunneling No -Maximum Distance #2 (cm) 3 -Circular Undermining Yes -Exudate Amt Medium (34-66%) -Exudate Type Serosanguineous -Wound Margin Thickened & Rolled Under -Granulation Amt Medium (34-66%) -Granulation Quality [place] Red -Slough/Fibrin Yes -Necrosis Amt Small (1-33%) -Necrotic Tissue Type Adherent Slough -Structure Exposed N/A -Texture (Amanda-wound Skin Appearance) Assessed -Moisture (Amanda-wound Skin Appearance Assessed ) -Color (Amanda-wound Skin Appearance) Assessed -Temperature (Amanda-wound Skin No Abnormality Appearance) (Pt Warm) -Tenderness on Palpation (Amanda-wound No Skin Appearance) -Ulcer Cleansing Rinsed/ Irrigated with Saline -Foul Odor after Cleansing No -Anesthetic Used 4% Lidocaine Solution WC - Nurse 2 - General Ulcer CM Notes Start: 03/06/18 09:17 Freq: Status: Active Protocol: Activity Type Activity Date Activity User E-Sign Co-Sign Detail Recorded Client Recorded Date Recorded By Document 03/27/18 08:44 MW [id number] 03/27/18 08:48 MW 03/27/18 08:44 Wound Center Nurse 2 [Procedure/Treatment] #6 lower mid abd -Time 08:47 -Correct Patient Yes -Correct Side, Site, Position Yes -Correct Procedure Yes -Procedure Performed No -Post Debridement Size (cm) - Length 0 -Post Debridement Size (cm) - Width 0 -Post Debridement Size (cm) - Depth 0 -Total Square Cm 0 -Wound/Ulcer Outcome Healed- Epithelialized -Ulcer Cleansing Not Cleansed -Foul Odor after Cleansing No -Bioengineered Tissue No -Bleeding Controlled with NA -Treatment Response Procedure Tolerated Well #5 sacrum -Time 08:44 -Correct Patient Yes -Correct Side, Site, Position Yes -Correct Procedure Yes -Procedure Performed Yes -Type of Procedure Debridement -Clinical Debridement Subcutaneous -Post Debridement Size (cm) - Length 1.4 -Post Debridement Size (cm) - Width 3.4 -Post Debridement Size (cm) - Depth 1.3 -Total Square Cm 4.76 -Wound/Ulcer Outcome Not Healed -Ulcer Cleansing Rinsed/ Irrigated with Saline -Foul Odor after Cleansing No -Bioengineered Tissue No -Bleeding Controlled with Pressure -Treatment Response Procedure Tolerated Well [See Physician Procedure note for Specifics] Pain Scale: 0-10 Numeric [Pain] -Is Patient Pain Free? Yes Musculoskeletal: No Muscle Wasting Neurological: Cranial nerves II-XII grossly intact Psych/Mental Status: Normal Affect Debridement Note Post-Debridement Measurements/Treatment WC - Nurse 2 - General Ulcer CM Notes Start: 03/06/18 09:17 Freq: Status: Active Protocol: Activity Type Activity Date Activity User E-Sign Co-Sign Detail Recorded Client Recorded Date Recorded By Document 03/06/18 09:32 MW [id number] 03/06/18 09:37 MW Document 03/11/18 09:03 JF [id number] 03/11/18 09:12 JF Document 03/20/18 09:26 MW [id number] 03/20/18 09:32 MW Document 03/27/18 08:44 MW [id number] 03/27/18 08:48 MW 03/06/18 03/11/18 03/20/18 09:32 09:03 09:26 Wound Center Nurse 2 #6 lower mid abd -Time 09:32 09:05 09:30 -Correct Patient Yes No Yes -Correct Side, Site, Position Yes No Yes -Correct Procedure Yes No Yes -Procedure Performed Yes No Yes -Type of Procedure Debridement Debridement -Clinical Debridement Subcutaneous Selective -Post Debridement Size (cm) - Length 4.1 0.1 -Post Debridement Size (cm) - Width 1.0 0.1 -Post Debridement Size (cm) - Depth 0.1 0.1 -Total Square Cm 4.10 0.01 -Wound/Ulcer Outcome Not Healed Not Healed Not Healed -Ulcer Cleansing Rinsed/ Rinsed/ Irrigated with Irrigated with Saline Saline -Foul Odor after Cleansing No No No -Bioengineered Tissue No No No -Bleeding Controlled with NA Pressure -Treatment Response Procedure Procedure Tolerated Well Tolerated Well #5 sacrum -Time 09:33 09:05 09:30 -Correct Patient Yes Yes Yes -Correct Side, Site, Position Yes Yes Yes -Correct Procedure Yes Yes Yes -Procedure Performed Yes Yes Yes -Type of Procedure Debridement Debridement Debridement -Clinical Debridement Subcutaneous Muscle Subcutaneous -Post Debridement Size (cm) - Length 1.3 1.2 1.2 -Post Debridement Size (cm) - Width 3.3 3.8 3.5 -Post Debridement Size (cm) - Depth 1.5 1.8 1.2 -Total Square Cm 4.29 4.56 4.20 -Wound/Ulcer Outcome Not Healed Not Healed -Ulcer Cleansing Rinsed/ Rinsed/ Rinsed/ Irrigated with Irrigated with Irrigated with Saline Saline Saline -Foul Odor after Cleansing No No No -Bioengineered Tissue No No No -Bleeding Controlled with Pressure Pressure Pressure -Other circular undermining, @ 11 - 3.0cm -Treatment Response Procedure Procedure Procedure Tolerated Well Tolerated Well Tolerated Well Pain Scale: 0-10 Numeric Is Patient Pain Free? Yes Yes Yes 18 08:44 Wound Center Nurse 2 #6 lower mid abd -Time 08:47 -Correct Patient Yes -Correct Side, Site, Position Yes -Correct Procedure Yes -Procedure Performed No -Type of Procedure -Clinical Debridement -Post Debridement Size (cm) - Length 0 -Post Debridement Size (cm) - Width 0 -Post Debridement Size (cm) - Depth 0 -Total Square Cm 0 -Wound/Ulcer Outcome Healed- Epithelialized -Ulcer Cleansing Not Cleansed -Foul Odor after Cleansing No -Bioengineered Tissue No -Bleeding Controlled with NA -Treatment Response Procedure Tolerated Well #5 sacrum -Time 08:44 -Correct Patient Yes -Correct Side, Site, Position Yes -Correct Procedure Yes -Procedure Performed Yes -Type of Procedure Debridement -Clinical Debridement Subcutaneous -Post Debridement Size (cm) - Length 1.4 -Post Debridement Size (cm) - Width 3.4 -Post Debridement Size (cm) - Depth 1.3 -Total Square Cm 4.76 -Wound/Ulcer Outcome Not Healed -Ulcer Cleansing Rinsed/ Irrigated with Saline -Foul Odor after Cleansing No -Bioengineered Tissue No -Bleeding Controlled with Pressure -Other -Treatment Response Procedure Tolerated Well Pain Scale: 0-10 Numeric Is Patient Pain Free? Yes Wound debrided: Sacral ulcer Wound Grade/Stage: Stage IV Type of Debridement: Excisional debridement Anesthesia Used: 4% Lidocaine Solution Depth: Down to and including healthy tissue, in the subcutaneous layer Percentage of wound debrided: 100 Instrument Used: 7mm curette Tissue Removed: Slough and devitalized tissue Severity: Fat Layer Exposed Amount of bleeding with debridement: Mild Bleeding Controlled with: Pressure Patient tolerated procedure well Assessment/Plan Active Problems (Last Updated 08/09/17 @ 08:06 by Liz Baker) Non-healing surgical wound (Chronic) Pressure ulcer of sacral region, stage 4 (Chronic) Assessment: 1. Sacral pressure sore, Stage IV. 2. Nonhealing abdominal wall wound from her surgery in December. 3. s/p repair colovaginal fistula. Plan: Abdominal stays healed. Debridement of sacral ulcer done, procedure was well-tolerated. Continue Fibracol to sacral ulcer and change every other day. Adaptic to abdominal area. Continue increased protein intake. Scheduled for surgical debridement with Dr. Hansen in April. All her questions were answered and she was asked to call with any further questions or concerns. Follow-up in 1 week. This note was generated with [employer] dictation software. It may contain incorrect words, spelling, and punctuation that were not noted in checking the note before signing.
--- NOTE | 2018-03-27 09:06 | PN.PCM_ITS ---
(1) Non-healing surgical wound Status: Chronic Current Visit: Yes Code(s): T81.89XA - Other complications of procedures, not elsewhere classified, initial encounter (2) Pressure ulcer of sacral region, stage 4 Status: Chronic Current Visit: Yes Code(s): L89.154 - Pressure ulcer of sacral region, stage 4 Type of Wound Chief Complaint: Sacral pressure sore, Stage IV. History of Wound: Patient comes in for further evaluation of her sacral pressure sore. I initially saw her in August. A CT was done which showed no evidence of osteomyelitis, but did show evidence of a colovaginal fistula. The fistula was surgically repaired in December at [facility]. She had a sacral wound culture done on 01/02/18 and it showed Staphylococcus aureus. She was treated with antibiotics. She was recently discharged from a longterm. She is also being treated for a nonhealing abdominal wall wound from her surgery in December. She had a recent abdominal wall wound culture done on 03/06/18 which showed Staphylococcus aureus and was placed on antibiotics. I was asked to evaluate her sacral pressure sore for surgical options for treatment. Progress of Wound: No new complaints at this time. Abdominal wound has healed. - Physical Exam Vital Signs Temp Pulse Resp BP 97.1 F L 111 H 18 144/80 H 03/27/18 08:22 03/27/18 08:22 03/27/18 08:22 03/27/18 08:22 General: Alert, Oriented x3, Cooperative, No apparent distress HEENT: Atraumatic Oral: Moist Mucosa Neck: Supple Lungs: Normal air movement Abdomen: Soft, Non Tender Extremities: No cyanosis Skin: Ulcer/ Wound Wound Measurements and Assessment WC - Nurse 1 - General Ulcer Measurement Start: 03/06/18 09:17 Freq: Status: Active Protocol: Activity Type Activity Date Activity User E-Sign Co-Sign Detail Recorded Client Recorded Date Recorded By Document 03/27/18 08:22 RB [id number] 03/27/18 08:29 RB 03/27/18 08:22 Wound Center Nurse 1 [Ulcer Assessment] #6 lower mid abd -Combined with other wound No -Current Size (cm) - Length 0 -Current Size (cm) - Width 0 -Current Size (cm) - Depth 0 -Total Square Cm 0 -Photo Taken Yes -Epithelialization Large 67-100% -Tunneling No -Undermining/Tunneling No -Circular Undermining No -Exudate Amt None Present (0 %) -Wound Margin Distinct, Outline Attached -Granulation Amt Large (67-100%) -Granulation Quality [place] -Slough/Fibrin No -Necrosis Amt None Present (0 %) -Texture (Amanda-wound Skin Appearance) Assessed -Moisture (Amanda-wound Skin Appearance Assessed ) -Color (Amanda-wound Skin Appearance) Assessed -Temperature (Amanda-wound Skin No Abnormality Appearance) (Pt Warm) -Tenderness on Palpation (Amanda-wound No Skin Appearance) -Ulcer Cleansing Rinsed/ Irrigated with Saline -Foul Odor after Cleansing No #5 sacrum -Combined with other wound No -Current Size (cm) - Length 1.1 -Current Size (cm) - Width 3.2 -Current Size (cm) - Depth 1.1 -Total Square Cm 3.52 -Photo Taken Yes -Tunneling No -Undermining/Tunneling No -Maximum Distance #2 (cm) 3 -Circular Undermining Yes -Exudate Amt Medium (34-66%) -Exudate Type Serosanguineous -Wound Margin Thickened & Rolled Under -Granulation Amt Medium (34-66%) -Granulation Quality [place] Red -Slough/Fibrin Yes -Necrosis Amt Small (1-33%) -Necrotic Tissue Type Adherent Slough -Structure Exposed N/A -Texture (Amanda-wound Skin Appearance) Assessed -Moisture (Amanda-wound Skin Appearance Assessed ) -Color (Amanda-wound Skin Appearance) Assessed -Temperature (Amanda-wound Skin No Abnormality Appearance) (Pt Warm) -Tenderness on Palpation (Amanda-wound No Skin Appearance) -Ulcer Cleansing Rinsed/ Irrigated with Saline -Foul Odor after Cleansing No -Anesthetic Used 4% Lidocaine Solution WC - Nurse 2 - General Ulcer CM Notes Start: 03/06/18 09:17 Freq: Status: Active Protocol: Activity Type Activity Date Activity User E-Sign Co-Sign Detail Recorded Client Recorded Date Recorded By Document 03/27/18 08:44 MW [id number] 03/27/18 08:48 MW 03/27/18 08:44 Wound Center Nurse 2 [Procedure/Treatment] #6 lower mid abd -Time 08:47 -Correct Patient Yes -Correct Side, Site, Position Yes -Correct Procedure Yes -Procedure Performed No -Post Debridement Size (cm) - Length 0 -Post Debridement Size (cm) - Width 0 -Post Debridement Size (cm) - Depth 0 -Total Square Cm 0 -Wound/Ulcer Outcome Healed- Epithelialized -Ulcer Cleansing Not Cleansed -Foul Odor after Cleansing No -Bioengineered Tissue No -Bleeding Controlled with NA -Treatment Response Procedure Tolerated Well #5 sacrum -Time 08:44 -Correct Patient Yes -Correct Side, Site, Position Yes -Correct Procedure Yes -Procedure Performed Yes -Type of Procedure Debridement -Clinical Debridement Subcutaneous -Post Debridement Size (cm) - Length 1.4 -Post Debridement Size (cm) - Width 3.4 -Post Debridement Size (cm) - Depth 1.3 -Total Square Cm 4.76 -Wound/Ulcer Outcome Not Healed -Ulcer Cleansing Rinsed/ Irrigated with Saline -Foul Odor after Cleansing No -Bioengineered Tissue No -Bleeding Controlled with Pressure -Treatment Response Procedure Tolerated Well [See Physician Procedure note for Specifics] Pain Scale: 0-10 Numeric [Pain] -Is Patient Pain Free? Yes Musculoskeletal: No Muscle Wasting Neurological: Cranial nerves II-XII grossly intact Psych/Mental Status: Normal Affect Debridement Note Post-Debridement Measurements/Treatment WC - Nurse 2 - General Ulcer CM Notes Start: 03/06/18 09:17 Freq: Status: Active Protocol: Activity Type Activity Date Activity User E-Sign Co-Sign Detail Recorded Client Recorded Date Recorded By Document 03/06/18 09:32 MW [id number] 03/06/18 09:37 MW Document 03/11/18 09:03 JF [id number] 03/11/18 09:12 JF Document 03/20/18 09:26 MW [id number] 03/20/18 09:32 MW Document 03/27/18 08:44 MW [id number] 03/27/18 08:48 MW 03/06/18 03/11/18 03/20/18 09:32 09:03 09:26 Wound Center Nurse 2 #6 lower mid abd -Time 09:32 09:05 09:30 -Correct Patient Yes No Yes -Correct Side, Site, Position Yes No Yes -Correct Procedure Yes No Yes -Procedure Performed Yes No Yes -Type of Procedure Debridement Debridement -Clinical Debridement Subcutaneous Selective -Post Debridement Size (cm) - Length 4.1 0.1 -Post Debridement Size (cm) - Width 1.0 0.1 -Post Debridement Size (cm) - Depth 0.1 0.1 -Total Square Cm 4.10 0.01 -Wound/Ulcer Outcome Not Healed Not Healed Not Healed -Ulcer Cleansing Rinsed/ Rinsed/ Irrigated with Irrigated with Saline Saline -Foul Odor after Cleansing No No No -Bioengineered Tissue No No No -Bleeding Controlled with NA Pressure -Treatment Response Procedure Procedure Tolerated Well Tolerated Well #5 sacrum -Time 09:33 09:05 09:30 -Correct Patient Yes Yes Yes -Correct Side, Site, Position Yes Yes Yes -Correct Procedure Yes Yes Yes -Procedure Performed Yes Yes Yes -Type of Procedure Debridement Debridement Debridement -Clinical Debridement Subcutaneous Muscle Subcutaneous -Post Debridement Size (cm) - Length 1.3 1.2 1.2 -Post Debridement Size (cm) - Width 3.3 3.8 3.5 -Post Debridement Size (cm) - Depth 1.5 1.8 1.2 -Total Square Cm 4.29 4.56 4.20 -Wound/Ulcer Outcome Not Healed Not Healed -Ulcer Cleansing Rinsed/ Rinsed/ Rinsed/ Irrigated with Irrigated with Irrigated with Saline Saline Saline -Foul Odor after Cleansing No No No -Bioengineered Tissue No No No -Bleeding Controlled with Pressure Pressure Pressure -Other circular undermining, @ 11 - 3.0cm -Treatment Response Procedure Procedure Procedure Tolerated Well Tolerated Well Tolerated Well Pain Scale: 0-10 Numeric Is Patient Pain Free? Yes Yes Yes 18 08:44 Wound Center Nurse 2 #6 lower mid abd -Time 08:47 -Correct Patient Yes -Correct Side, Site, Position Yes -Correct Procedure Yes -Procedure Performed No -Type of Procedure -Clinical Debridement -Post Debridement Size (cm) - Length 0 -Post Debridement Size (cm) - Width 0 -Post Debridement Size (cm) - Depth 0 -Total Square Cm 0 -Wound/Ulcer Outcome Healed- Epithelialized -Ulcer Cleansing Not Cleansed -Foul Odor after Cleansing No -Bioengineered Tissue No -Bleeding Controlled with NA -Treatment Response Procedure Tolerated Well #5 sacrum -Time 08:44 -Correct Patient Yes -Correct Side, Site, Position Yes -Correct Procedure Yes -Procedure Performed Yes -Type of Procedure Debridement -Clinical Debridement Subcutaneous -Post Debridement Size (cm) - Length 1.4 -Post Debridement Size (cm) - Width 3.4 -Post Debridement Size (cm) - Depth 1.3 -Total Square Cm 4.76 -Wound/Ulcer Outcome Not Healed -Ulcer Cleansing Rinsed/ Irrigated with Saline -Foul Odor after Cleansing No -Bioengineered Tissue No -Bleeding Controlled with Pressure -Other -Treatment Response Procedure Tolerated Well Pain Scale: 0-10 Numeric Is Patient Pain Free? Yes Wound debrided: Sacral ulcer Wound Grade/Stage: Stage IV Type of Debridement: Excisional debridement Anesthesia Used: 4% Lidocaine Solution Depth: Down to and including healthy tissue, in the subcutaneous layer Percentage of wound debrided: 100 Instrument Used: 7mm curette Tissue Removed: Slough and devitalized tissue Severity: Fat Layer Exposed Amount of bleeding with debridement: Mild Bleeding Controlled with: Pressure Patient tolerated procedure well Assessment/Plan Active Problems (Last Updated 08/09/17 @ 08:06 by Liz Baker) Non-healing surgical wound (Chronic) Pressure ulcer of sacral region, stage 4 (Chronic) Assessment: 1. Sacral pressure sore, Stage IV. 2. Nonhealing abdominal wall wound from her surgery in December. 3. s/p repair colovaginal fistula. Plan: Abdominal stays healed. Debridement of sacral ulcer done, procedure was well-tolerated. Continue Fibracol to sacral ulcer and change every other day. Adaptic to abdominal area. Continue increased protein intake. Scheduled for surgical debridement with Dr. Hansen in April. All her questions were answered and she was asked to call with any further questions or concerns. Follow-up in 1 week. This note was generated with [employer] dictation software. It may contain incorrect words, spelling, and punctuation that were not noted in checking the note before signing.
[2018-04-03 09:04] VITALS: BP 141/75; PULSE 101; RESP 18; TEMP 36.7; BMI 40.5
--- NOTE | 2018-04-03 09:28 | PCM.WC.PN ---
(1) Non-healing surgical wound Status: Chronic Current Visit: Yes Code(s): T81.89XA - Other complications of procedures, not elsewhere classified, initial encounter (2) Pressure ulcer of sacral region, stage 4 Status: Chronic Current Visit: Yes Code(s): L89.154 - Pressure ulcer of sacral region, stage 4 Type of Wound Chief Complaint: Sacral pressure sore, Stage IV. History of Wound: Patient comes in for further evaluation of her sacral pressure sore. I initially saw her in August. A CT was done which showed no evidence of osteomyelitis, but did show evidence of a colovaginal fistula. The fistula was surgically repaired in December at [facility]. She had a sacral wound culture done on 01/02/18 and it showed Staphylococcus aureus. She was treated with antibiotics. [facility] She is also being treated for a nonhealing abdominal wall wound from her surgery in December. She had a recent abdominal wall wound culture done on 03/06/18 which showed Staphylococcus aureus and was placed on antibiotics. I was asked to evaluate her sacral pressure sore for surgical options for treatment. Progress of Wound: Stable. No new complaints. Scheduled for surgery on 04/16. - Physical Exam Vital Signs Temp Pulse Resp BP 98.0 F 101 H 18 141/75 H 04/03/18 09:04 04/03/18 09:04 04/03/18 09:04 04/03/18 09:04 General: Alert, Oriented x3, Cooperative, No apparent distress HEENT: Atraumatic Oral: Moist Mucosa Neck: Supple Lungs: Normal air movement Abdomen: Soft, Obese Extremities: No cyanosis Skin: Ulcer/ Wound Wound Measurements and Assessment WC - Nurse 1 - General Ulcer Measurement Start: 03/06/18 09:17 Freq: Status: Active Protocol: Activity Type Activity Date Activity User E-Sign Co-Sign Detail Recorded Client Recorded Date Recorded By Document 04/03/18 09:04 [id number] 04/03/18 09:09 04/03/18 09:04 Wound Center Nurse 1 [Ulcer Assessment] #5 sacrum -Combined with other wound No -Current Size (cm) - Length 0.9 -Current Size (cm) - Width 2.3 -Current Size (cm) - Depth 3.0 -Total Square Cm 2.07 -Photo Taken No -Epithelialization None Present -Tunneling No -Undermining/Tunneling Yes -Undermining/Tunneling Starts (O' 8 clock) -Undermining/Tunneling Ends (O'clock) 10 -Maximum Distance (cm) 3.3 -Exudate Amt Small (1-33%) -Exudate Type Serosanguineous -Wound Margin Distinct, Outline Attached -Granulation Amt Small (1-33%) -Granulation Quality Mcbride -Slough/Fibrin Yes -Necrosis Amt None Present (0 %) -Necrotic Tissue Type Adherent Slough -Texture (Amanda-wound Skin Appearance) Scarring -Moisture (Amanda-wound Skin Appearance No Abnormality ) Assessed -Color (Amanda-wound Skin Appearance) No Abnormality Assessed -Temperature (Amanda-wound Skin No Abnormality Appearance) (Pt Warm) -Tenderness on Palpation (Amanda-wound Yes Skin Appearance) -Ulcer Cleansing soap -Foul Odor after Cleansing No -Anesthetic Used 4% Lidocaine Solution [Edema Assessment] -Lower Limb Edema Present NA WC - Nurse 2 - General Ulcer CM Notes Start: 03/06/18 09:17 Freq: Status: Active Protocol: Activity Type Activity Date Activity User E-Sign Co-Sign Detail Recorded Client Recorded Date Recorded By Document 04/03/18 09:27 MW [id number] 04/03/18 09:28 MW 04/03/18 09:27 Wound Center Nurse 2 [Procedure/Treatment] #5 sacrum -Time 09:27 -Correct Patient Yes -Correct Side, Site, Position Yes -Correct Procedure Yes -Procedure Performed Yes -Type of Procedure Debridement -Clinical Debridement Subcutaneous -Post Debridement Size (cm) - Length 1.1 -Post Debridement Size (cm) - Width 3.4 -Post Debridement Size (cm) - Depth 1.3 -Total Square Cm 3.74 -Wound/Ulcer Outcome Not Healed -Ulcer Cleansing Rinsed/ Irrigated with Saline -Foul Odor after Cleansing No -Bioengineered Tissue No -Bleeding Controlled with Pressure -Treatment Response Procedure Tolerated Well [See Physician Procedure note for Specifics] Pain Scale: 0-10 Numeric [Pain] -Is Patient Pain Free? Yes Musculoskeletal: No Muscle Wasting Neurological: Cranial nerves II-XII grossly intact Psych/Mental Status: Normal Affect Debridement Note Post-Debridement Measurements/Treatment WC - Nurse 2 - General Ulcer CM Notes Start: 03/06/18 09:17 Freq: Status: Active Protocol: Activity Type Activity Date Activity User E-Sign Co-Sign Detail Recorded Client Recorded Date Recorded By Document 03/06/18 09:32 MW [id number] 03/06/18 09:37 MW Document 03/11/18 09:03 JF [id number] 03/11/18 09:12 JF Document 03/20/18 09:26 MW [id number] 03/20/18 09:32 MW Document 03/27/18 08:44 MW [id number] 03/27/18 08:48 MW Document 04/03/18 09:27 MW [id number] 04/03/18 09:28 MW 03/06/18 03/11/18 03/20/18 09:32 09:03 09:26 Wound Center Nurse 2 #6 lower mid abd -Time 09:32 09:05 09:30 -Correct Patient Yes No Yes -Correct Side, Site, Position Yes No Yes -Correct Procedure Yes No Yes -Procedure Performed Yes No Yes -Type of Procedure Debridement Debridement -Clinical Debridement Subcutaneous Selective -Post Debridement Size (cm) - Length 4.1 0.1 -Post Debridement Size (cm) - Width 1.0 0.1 -Post Debridement Size (cm) - Depth 0.1 0.1 -Total Square Cm 4.10 0.01 -Wound/Ulcer Outcome Not Healed Not Healed Not Healed -Ulcer Cleansing Rinsed/ Rinsed/ Irrigated with Irrigated with Saline Saline -Foul Odor after Cleansing No No No -Bioengineered Tissue No No No -Bleeding Controlled with NA Pressure -Treatment Response Procedure Procedure Tolerated Well Tolerated Well #5 sacrum -Time 09:33 09:05 09:30 -Correct Patient Yes Yes Yes -Correct Side, Site, Position Yes Yes Yes -Correct Procedure Yes Yes Yes -Procedure Performed Yes Yes Yes -Type of Procedure Debridement Debridement Debridement -Clinical Debridement Subcutaneous Muscle Subcutaneous -Post Debridement Size (cm) - Length 1.3 1.2 1.2 -Post Debridement Size (cm) - Width 3.3 3.8 3.5 -Post Debridement Size (cm) - Depth 1.5 1.8 1.2 -Total Square Cm 4.29 4.56 4.20 -Wound/Ulcer Outcome Not Healed Not Healed -Ulcer Cleansing Rinsed/ Rinsed/ Rinsed/ Irrigated with Irrigated with Irrigated with Saline Saline Saline -Foul Odor after Cleansing No No No -Bioengineered Tissue No No No -Bleeding Controlled with Pressure Pressure Pressure -Other circular undermining, @ 11 - 3.0cm -Treatment Response Procedure Procedure Procedure Tolerated Well Tolerated Well Tolerated Well Pain Scale: 0-10 Numeric Is Patient Pain Free? Yes Yes Yes 03/27/18 04/03/18 08:44 09:27 Wound Center Nurse 2 #6 lower mid abd -Time 08:47 -Correct Patient Yes -Correct Side, Site, Position Yes -Correct Procedure Yes -Procedure Performed No -Type of Procedure -Clinical Debridement -Post Debridement Size (cm) - Length 0 -Post Debridement Size (cm) - Width 0 -Post Debridement Size (cm) - Depth 0 -Total Square Cm 0 -Wound/Ulcer Outcome Healed- Epithelialized -Ulcer Cleansing Not Cleansed -Foul Odor after Cleansing No -Bioengineered Tissue No -Bleeding Controlled with NA -Treatment Response Procedure Tolerated Well #5 sacrum -Time 08:44 09:27 -Correct Patient Yes Yes -Correct Side, Site, Position Yes Yes -Correct Procedure Yes Yes -Procedure Performed Yes Yes -Type of Procedure Debridement Debridement -Clinical Debridement Subcutaneous Subcutaneous -Post Debridement Size (cm) - Length 1.4 1.1 -Post Debridement Size (cm) - Width 3.4 3.4 -Post Debridement Size (cm) - Depth 1.3 1.3 -Total Square Cm 4.76 3.74 -Wound/Ulcer Outcome Not Healed Not Healed -Ulcer Cleansing Rinsed/ Rinsed/ Irrigated with Irrigated with Saline Saline -Foul Odor after Cleansing No No -Bioengineered Tissue No No -Bleeding Controlled with Pressure Pressure -Other -Treatment Response Procedure Procedure Tolerated Well Tolerated Well Pain Scale: 0-10 Numeric Is Patient Pain Free? Yes Yes Wound debrided: Sacral Ulcer Wound Grade/Stage: Stage IV Type of Debridement: Excisional debridement Anesthesia Used: 4% Lidocaine Solution Depth: Down to and including healthy tissue, in the subcutaneous layer Percentage of wound debrided: 100 Instrument Used: 7mm curette Tissue Removed: Slough and devitalized tissue Severity: Fat Layer Exposed Amount of bleeding with debridement: Mild Bleeding Controlled with: Pressure Patient tolerated procedure well Assessment/Plan Active Problems (Last Updated 08/09/17 @ 08:06 by Liz Baker) Non-healing surgical wound (Chronic) Pressure ulcer of sacral region, stage 4 (Chronic) Assessment: 1. Sacral pressure sore, Stage IV. 2. Nonhealing abdominal wall wound from her surgery in December. 3. s/p repair colovaginal fistula. Plan: Stable sacral ulcer. Debridement of sacral ulcer done, procedure was well-tolerated. Continue Fibracol to sacral ulcer and change every other day. Continue increased protein intake. Scheduled for surgical debridement of sacarl ulcer with Dr. Hansen in 04/16. All her questions were answered and she was asked to call with any further questions or concerns. Follow-up in 1 week. This note was generated with [employer] dictation software. It may contain incorrect words, spelling, and punctuation that were not noted in checking the note before signing.
--- NOTE | 2018-04-03 09:31 | PN.PCM_ITS ---
(1) Non-healing surgical wound Status: Chronic Current Visit: Yes Code(s): T81.89XA - Other complications of procedures, not elsewhere classified, initial encounter (2) Pressure ulcer of sacral region, stage 4 Status: Chronic Current Visit: Yes Code(s): L89.154 - Pressure ulcer of sacral region, stage 4 Type of Wound Chief Complaint: Sacral pressure sore, Stage IV. History of Wound: Patient comes in for further evaluation of her sacral pressure sore. I initially saw her in August. A CT was done which showed no evidence of osteomyelitis, but did show evidence of a colovaginal fistula. The fistula was surgically repaired in December at [facility]. She had a sacral wound culture done on 01/02/18 and it showed Staphylococcus aureus. She was treated with antibiotics. She was recently discharged from a halfway. She is also being treated for a nonhealing abdominal wall wound from her surgery in December. She had a recent abdominal wall wound culture done on 03/06/18 which showed Staphylococcus aureus and was placed on antibiotics. I was asked to evaluate her sacral pressure sore for surgical options for treatment. Progress of Wound: Stable. No new complaints. Scheduled for surgery on 04/16. - Physical Exam Vital Signs Temp Pulse Resp BP 98.0 F 101 H 18 141/75 H 04/03/18 09:04 04/03/18 09:04 04/03/18 09:04 04/03/18 09:04 General: Alert, Oriented x3, Cooperative, No apparent distress HEENT: Atraumatic Oral: Moist Mucosa Neck: Supple Lungs: Normal air movement Abdomen: Soft, Obese Extremities: No cyanosis Skin: Ulcer/ Wound Wound Measurements and Assessment WC - Nurse 1 - General Ulcer Measurement Start: 03/06/18 09:17 Freq: Status: Active Protocol: Activity Type Activity Date Activity User E-Sign Co-Sign Detail Recorded Client Recorded Date Recorded By Document 04/03/18 09:04 [id number] 04/03/18 09:09 04/03/18 09:04 Wound Center Nurse 1 [Ulcer Assessment] #5 sacrum -Combined with other wound No -Current Size (cm) - Length 0.9 -Current Size (cm) - Width 2.3 -Current Size (cm) - Depth 3.0 -Total Square Cm 2.07 -Photo Taken No -Epithelialization None Present -Tunneling No -Undermining/Tunneling Yes -Undermining/Tunneling Starts (O' 8 clock) -Undermining/Tunneling Ends (O'clock) 10 -Maximum Distance (cm) 3.3 -Exudate Amt Small (1-33%) -Exudate Type Serosanguineous -Wound Margin Distinct, Outline Attached -Granulation Amt Small (1-33%) -Granulation Quality Neibert -Slough/Fibrin Yes -Necrosis Amt None Present (0 %) -Necrotic Tissue Type Adherent Slough -Texture (Amanda-wound Skin Appearance) Scarring -Moisture (Amanda-wound Skin Appearance No Abnormality ) Assessed -Color (Amanda-wound Skin Appearance) No Abnormality Assessed -Temperature (Amanda-wound Skin No Abnormality Appearance) (Pt Warm) -Tenderness on Palpation (Amanda-wound Yes Skin Appearance) -Ulcer Cleansing soap -Foul Odor after Cleansing No -Anesthetic Used 4% Lidocaine Solution [Edema Assessment] -Lower Limb Edema Present NA WC - Nurse 2 - General Ulcer CM Notes Start: 03/06/18 09:17 Freq: Status: Active Protocol: Activity Type Activity Date Activity User E-Sign Co-Sign Detail Recorded Client Recorded Date Recorded By Document 04/03/18 09:27 MW [id number] 04/03/18 09:28 MW 04/03/18 09:27 Wound Center Nurse 2 [Procedure/Treatment] #5 sacrum -Time 09:27 -Correct Patient Yes -Correct Side, Site, Position Yes -Correct Procedure Yes -Procedure Performed Yes -Type of Procedure Debridement -Clinical Debridement Subcutaneous -Post Debridement Size (cm) - Length 1.1 -Post Debridement Size (cm) - Width 3.4 -Post Debridement Size (cm) - Depth 1.3 -Total Square Cm 3.74 -Wound/Ulcer Outcome Not Healed -Ulcer Cleansing Rinsed/ Irrigated with Saline -Foul Odor after Cleansing No -Bioengineered Tissue No -Bleeding Controlled with Pressure -Treatment Response Procedure Tolerated Well [See Physician Procedure note for Specifics] Pain Scale: 0-10 Numeric [Pain] -Is Patient Pain Free? Yes Musculoskeletal: No Muscle Wasting Neurological: Cranial nerves II-XII grossly intact Psych/Mental Status: Normal Affect Debridement Note Post-Debridement Measurements/Treatment WC - Nurse 2 - General Ulcer CM Notes Start: 03/06/18 09:17 Freq: Status: Active Protocol: Activity Type Activity Date Activity User E-Sign Co-Sign Detail Recorded Client Recorded Date Recorded By Document 03/06/18 09:32 MW [id number] 03/06/18 09:37 MW Document 03/11/18 09:03 JF [id number] 03/11/18 09:12 JF Document 03/20/18 09:26 MW [id number] 03/20/18 09:32 MW Document 03/27/18 08:44 MW [id number] 03/27/18 08:48 MW Document 04/03/18 09:27 MW [id number] 04/03/18 09:28 MW 03/06/18 03/11/18 03/20/18 09:32 09:03 09:26 Wound Center Nurse 2 #6 lower mid abd -Time 09:32 09:05 09:30 -Correct Patient Yes No Yes -Correct Side, Site, Position Yes No Yes -Correct Procedure Yes No Yes -Procedure Performed Yes No Yes -Type of Procedure Debridement Debridement -Clinical Debridement Subcutaneous Selective -Post Debridement Size (cm) - Length 4.1 0.1 -Post Debridement Size (cm) - Width 1.0 0.1 -Post Debridement Size (cm) - Depth 0.1 0.1 -Total Square Cm 4.10 0.01 -Wound/Ulcer Outcome Not Healed Not Healed Not Healed -Ulcer Cleansing Rinsed/ Rinsed/ Irrigated with Irrigated with Saline Saline -Foul Odor after Cleansing No No No -Bioengineered Tissue No No No -Bleeding Controlled with NA Pressure -Treatment Response Procedure Procedure Tolerated Well Tolerated Well #5 sacrum -Time 09:33 09:05 09:30 -Correct Patient Yes Yes Yes -Correct Side, Site, Position Yes Yes Yes -Correct Procedure Yes Yes Yes -Procedure Performed Yes Yes Yes -Type of Procedure Debridement Debridement Debridement -Clinical Debridement Subcutaneous Muscle Subcutaneous -Post Debridement Size (cm) - Length 1.3 1.2 1.2 -Post Debridement Size (cm) - Width 3.3 3.8 3.5 -Post Debridement Size (cm) - Depth 1.5 1.8 1.2 -Total Square Cm 4.29 4.56 4.20 -Wound/Ulcer Outcome Not Healed Not Healed -Ulcer Cleansing Rinsed/ Rinsed/ Rinsed/ Irrigated with Irrigated with Irrigated with Saline Saline Saline -Foul Odor after Cleansing No No No -Bioengineered Tissue No No No -Bleeding Controlled with Pressure Pressure Pressure -Other circular undermining, @ 11 - 3.0cm -Treatment Response Procedure Procedure Procedure Tolerated Well Tolerated Well Tolerated Well Pain Scale: 0-10 Numeric Is Patient Pain Free? Yes Yes Yes 03/27/18 04/03/18 08:44 09:27 Wound Center Nurse 2 #6 lower mid abd -Time 08:47 -Correct Patient Yes -Correct Side, Site, Position Yes -Correct Procedure Yes -Procedure Performed No -Type of Procedure -Clinical Debridement -Post Debridement Size (cm) - Length 0 -Post Debridement Size (cm) - Width 0 -Post Debridement Size (cm) - Depth 0 -Total Square Cm 0 -Wound/Ulcer Outcome Healed- Epithelialized -Ulcer Cleansing Not Cleansed -Foul Odor after Cleansing No -Bioengineered Tissue No -Bleeding Controlled with NA -Treatment Response Procedure Tolerated Well #5 sacrum -Time 08:44 09:27 -Correct Patient Yes Yes -Correct Side, Site, Position Yes Yes -Correct Procedure Yes Yes -Procedure Performed Yes Yes -Type of Procedure Debridement Debridement -Clinical Debridement Subcutaneous Subcutaneous -Post Debridement Size (cm) - Length 1.4 1.1 -Post Debridement Size (cm) - Width 3.4 3.4 -Post Debridement Size (cm) - Depth 1.3 1.3 -Total Square Cm 4.76 3.74 -Wound/Ulcer Outcome Not Healed Not Healed -Ulcer Cleansing Rinsed/ Rinsed/ Irrigated with Irrigated with Saline Saline -Foul Odor after Cleansing No No -Bioengineered Tissue No No -Bleeding Controlled with Pressure Pressure -Other -Treatment Response Procedure Procedure Tolerated Well Tolerated Well Pain Scale: 0-10 Numeric Is Patient Pain Free? Yes Yes Wound debrided: Sacral Ulcer Wound Grade/Stage: Stage IV Type of Debridement: Excisional debridement Anesthesia Used: 4% Lidocaine Solution Depth: Down to and including healthy tissue, in the subcutaneous layer Percentage of wound debrided: 100 Instrument Used: 7mm curette Tissue Removed: Slough and devitalized tissue Severity: Fat Layer Exposed Amount of bleeding with debridement: Mild Bleeding Controlled with: Pressure Patient tolerated procedure well Assessment/Plan Active Problems (Last Updated 08/09/17 @ 08:06 by Liz Baker) Non-healing surgical wound (Chronic) Pressure ulcer of sacral region, stage 4 (Chronic) Assessment: 1. Sacral pressure sore, Stage IV. 2. Nonhealing abdominal wall wound from her surgery in December. 3. s/p repair colovaginal fistula. Plan: Stable sacral ulcer. Debridement of sacral ulcer done, procedure was well-tolerated. Continue Fibracol to sacral ulcer and change every other day. Continue increased protein intake. Scheduled for surgical debridement of sacarl ulcer with Dr. Hansen in 04/16. All her questions were answered and she was asked to call with any further questions or concerns. Follow-up in 1 week. This note was generated with [employer] dictation software. It may contain incorrect words, spelling, and punctuation that were not noted in checking the note before signing.
== END 2018-04-03 23:59 ==
LOC: WC 09:00
PROVIDERS: Family Provider Family Medicine Geriatric Medicine; PCP Family Medicine Geriatric Medicine; Visit Provider Internal Medicine
DX: L89.154 Pressure ulcer of sacral region, stage 4 (principal); T81.89XA Other complications of procedures, not elsewhere classified, initial encounter
CPT/HCPCS: 11042; 11043; 87070; 87075; 87077; 87186; 87205; 97597

== ENCOUNTER → 2018-04-11 10:57 | Outpatient (CLI) | payer MEDICARE, OTHER, SELFPAY ==
--- NOTE | 2018-04-11 13:07 | EKG12_ITS ---
Test Reason : PREOP Blood Pressure : / mmHG Vent. Rate : 090 BPM Atrial Rate : 090 BPM P-R Int : 150 ms QRS Dur : 070 ms QT Int : 360 ms P-R-T Axes : 078 -17 062 degrees QTc Int : 440 ms Normal sinus rhythm Possible Left atrial enlargement Borderline ECG Confirmed by LOBITO COFFEY ([id number]), non linear editor SARAH PANDA ([id number] on 04/15/2018 2:33:28 PM Referred By: Regino Hansen Confirmed By:LOBITO COFFEY
[2018-04-11 13:20] LABS: Hematocrit 35.4 % (37-47); Hemoglobin 10.4 g/dl (12.0-15.0); Mean Corp Hgb Conc 29.4 g/gl (32-36); Mean Corpuscular Hgb 20.5 pg (27.0-32.0); Mean Corpuscular Volume 69.8 fL (81-99); Mean Platelet Vol. 9.2 fl (6.2-12.0); Platelet Count 542 K/mm3 (150-450); RBC Distribution Width CV 19.7 % (11.6-14.6); RBC Distribution Width SD 49.1 fl (35.1-43.9); Red Blood Count 5.07 M/mm3 (4.2-5.4)
[2018-04-11 13:21] LABS: Scan Indicated on CBC? Y/N YES- FLAGS NOTED
[2018-04-11 13:50] LABS: Differential Comment SCANNED
[2018-04-11 13:52] LABS: Thyroid Stim Hormone (TSH) 1.69 uIU/mL (0.358-3.74)
--- NOTE | 2018-04-15 23:28 | HP.PCM_ITS ---
History and Physical Date of Admission: 04/16/18 HISTORY OF PRESENT ILLNESS 67 year old woman presents for further evaluation of her sacral pressure sore. I initially saw her in August. A CT was done which showed no evidence of osteomyelitis, but did show evidence of a colovaginal fistula. The fistula was surgically repaired in December at [facility]. She had a sacral wound culture done on 01/02/18 and it showed Staphylococcus aureus. She was treated with antibiotics. [facility] I was asked to evaluate her sacral pressure sore for surgical options for treatment. PAST MEDICAL HISTORY Depression. GERD. Colovaginal fistula. Hypertension. Hypothyroidism. Neuropathy. PAST SURGICAL HISTORY Hysterectomy. Excision of sacral pressure sore - 04/20 Repair of colovaginal fistula - 12/19 MEDICATIONS Vitamin C. Aspirin. Vitamin D3. Synthroid. Omeprazole. K-dur. ALLERGIES Bee venom. Skelaxin. FAMILY HISTORY Positive for COPD, Lung cancer, Myocardial infarction. SOCIAL HISTORY Patient is a former smoker. Patient does not drink alcohol. REVIEW OF SYSTEMS General - Denies fever, fatigue, and weight loss. Eyes - Denies cataracts and glaucoma. ENT - Denies nasal congestion and sore throat. Endocrine - Denies excessive thirst and urination. Skin - Denies suspicious lesions and skin cancer. Has sacral pressure sore. Musculoskeletal - Denies joint pain, joint stiffness, weakness of muscles and joints, back pain, and arthritis. Neuro - Denies headaches. Cardiovascular - Denies chest pain, fatigue, and shortness of breath with exertion. Psych - Denies anxiety. Has depression. Respiratory - Denies chronic cough and shortness of breath. Gastrointestinal - Denies nausea, vomiting, diarrhea, and constipation. had repair colovaginal fistula. Hematologic - Denies abnormal bruising and bleeding. Genitourinary - Denies hematuria and urinary frequency. PHYSICAL EXAMINATION General - Alert and Oriented HEENT - PERRL. EOMI. Throat is clear. Neck - Supple and nontender. No cervical adenopathy. Lungs - Clear to auscultation. Heart - Regular rate and rhythm. Abdomen - Soft and nondistended. Extremities - FROM. No axillary adenopathy. Radial pulses are palpable. Back - On the sacral area is a pressure sore that extends to the bone. The bone is palpable but not exposed. It is a Stage IV. Measures 1.5 x 3.5 x 1.5 cm. There is some superior undermining measuring about 1.5 cm. Some granulation tissue is seen. Some abnormal scar tissue seen. No fluctuance or purulent drainage noted. Neuro - CN II-XII grossly intact. Psych - Normal mood and affect. ASSESSMENT 1. Sacral pressure sore, Stage IV. 2. s/p repair colovaginal fistula. PLAN Continue Fibracol dressing changes to the sacrum. Her sacral pressure sore is stable but has some undermining. There is abnormal scar tissue present that will not heal without operative debridement of the pressure sore. If it extends down to the bone than a partial ostectomy for osteomyelitis will be done. Postop will begin wound care with the VAC. Depending on how well healing occurs, she may need additional surgery with a fasciocutaneous or muscle flap for closure. Because she is ambulatory, her ulcer may heal with aggressive wound care, taking care of any infection, and maximizing nutrition. Will check a Prealbumin at the time of surgery. Surgery will be done under general anesthesia with a surgical observation overnight stay at the hospital. The following day the VAC will be applied. Tissue will be sent to Pathology and Microbiology. A positive culture will necessitate antibiotic therapy. Patient was informed of the risks and complications of the procedure including alternatives to surgery. These were discussed with her personally. She voices understanding and wishes to proceed. She understands the pressure sore will be made bigger in order to make the wound care easier with the VAC. With the amount of undermining, it is harder to heal because it is hard to pack the edges consistently because they are not visualized.
== END ==
PROVIDERS: Family Provider Family Medicine Geriatric Medicine; PCP Family Medicine Geriatric Medicine; Referring Provider Surgery; Visit Provider Surgery
DX: Z01.818 Encounter for other preprocedural examination (principal); E07.9 Disorder of thyroid, unspecified
CPT/HCPCS: 36415; 84443; 85027; 93005; J0295

== ENCOUNTER → 2018-04-22 13:42 | Outpatient (CLI) | payer MEDICARE, OTHER, SELFPAY ==
[2018-04-19 13:56] VITALS: BMI 40.5
--- NOTE | 2018-04-22 13:46 | ECHOD_ITS ---
Reason For Study: Murmur Procedure This was a 2D Doppler, Color Flow transthoracic echocardiogram. Exam performed in department. Left Ventricle Normal LV size. Moderate concentric left ventricular hypertrophy. Left ventricular systolic function is normal. The estimated ejection fraction is 65 %. Stage 1 diastolic dysfunction. No regional wall motion abnormalities noted. Right Ventricle Normal RV size. Normal systolic function. Atria Normal left atrium. Normal right atrium. Mitral Valve Moderate focal mitral valve calcification, bileaflet. Tricuspid Valve Normal tricuspid valve. Mild (1+) tricuspid valve insufficiency. Pulmonary artery systolic pressure is 27 mmHg. Aortic Valve Trisinus/trileaflet aortic valve. Mild focal aortic valve calcification. Mean aortic valve gradient 34 mmHg. Peak aortic valve gradient 64.9 mmHg. Calculated aortic valve area (continuity equation) is 0.99 cm2. Moderately severe . Pulmonic Valve Normal pulmonic valve. Great Vessels Normal aortic root. The pulmonary artery is normal size. Normal inferior vena cava. Pericardium/Pleural No pericardial effusion. MMode/2D Measurements & Calculations LVIDd: 3.6 cm IVSd: 1.6 cm LVOT diam: 2.0 cm LVIDs: 2.3 cm LVPWd: 1.4 cm LVOT area: 3.1 cm2 RVDd: 3.3 cm FS: 37.4 % Ao root diam: 3.3 cm LAV(MOD-bp): 49.4 ml LA A4 area: 16.8 cm2 LA dimension: 3.1 cm LAV(MOD-bp) Indexed: 25.3 ml/m2 LAV(MOD-sp2): 54.9 ml LAV(MOD-sp4): 45.3 ml RA A4 area: 14.4 cm2 Time Measurements MV dec time: 0.25 sec Doppler Measurements & Calculations MV E max gurpreet: 94.9 cm/sec Lat Peak E' Gurpreet: 10.4 cm/sec Med Peak E' Gurpreet: 6.6 cm/sec MV A max gurpreet: 123.5 cm/sec E/E' lat: 9.1 E/E' med: 14.4 MV E/A: 0.77 MV V2 max: 139.6 cm/sec MV P1/2t max gurpreet: 114.6 cm/sec Ao V2 max: 402.8 cm/sec MV max P.8 mmHg MV P1/2t: 67.2 msec Ao max P.9 mmHg MV V2 mean: 76.1 cm/sec MV dec slope: 499.2 cm/sec2 Ao V2 mean: 269.8 cm/sec MV mean P.7 mmHg Ao mean P.1 mmHg MV V2 VTI: 36.4 cm MVA(P1/2t): 3.3 cm2 Ao V2 VTI: 91.8 cm MVA(VTI): 2.2 cm2 MONICA(I,D): 0.89 cm2 MONICA(V,D): 0.99 cm2 LV V1 max: 130.2 cm/sec SV(LVOT): 81.4 ml PA V2 max: 96.3 cm/sec LV V1 max P.8 mmHg LV V1 mean P.2 mmHg LV V1 mean: 81.0 cm/sec LV V1 VTI: 26.5 cm TR max gurpreet: 239.4 cm/sec TR max P.9 mmHg Interpretation Summary Normal LV size. Moderate concentric left ventricular hypertrophy. Left ventricular systolic function is normal. The estimated ejection fraction is 65 %. Stage 1 diastolic dysfunction. Moderate focal mitral valve calcification, bileaflet. Mild (1+) tricuspid valve insufficiency. Mean aortic valve gradient 34 mmHg. Calculated aortic valve area (continuity equation) is 0.99 cm2. Moderately severe The AV is worse in comparison to previous Compared to prior study, changes are noted. Ordering Physician: Mitchell Henderson Referring Physician: Chema Sanchez Chi Performed By: Shlomo Daniel RCS
== END ==
PROVIDERS: Family Provider Family Medicine Geriatric Medicine; PCP Family Medicine Geriatric Medicine; Referring Provider Internal Medicine Cardiovascular Disease; Visit Provider Internal Medicine Cardiovascular Disease
DX: I27.21 Secondary pulmonary arterial hypertension (principal)
CPT/HCPCS: 93306

== ENCOUNTER → 2018-04-30 13:23 | Outpatient (CLI) | payer MEDICARE, OTHER, SELFPAY ==
[2018-04-24 08:54] VITALS: BMI 40.5
--- NOTE | 2018-04-30 14:29 | RAD_ITS ---
STUDY: X-RAY - LEFT HIP REASON FOR EXAM: Female, 67 years old. Left hip pain increasing, no known injury. TECHNIQUE: 2 views of the hip. COMPARISON: 08/09/2017 CT abdomen and pelvis axial images FINDINGS: There is sclerosis with flattening of the left greater than right femoral head, acetabular spurring, bone on bone joint space and productive osseous changes left greater than right. There is severe articular joint space narrowing. Normal visualized superior and inferior pubic rami and ischial tuberosities. RAD/HIP, UNI W/ Pelvis 2-3 Views IMPRESSION: Severe bilateral degenerative hip disease, suspect avascular necrosis which can be seen with advanced osteoarthritis. There is no significant interval change since previous CT. Electronically Signed: Vicki Kinsey MD at 5:08 EST , Service support ,
[2018-04-30 17:44] LABS: ALB/GLOB Ratio 0.8 RATIO (0.9-2.4); AST(SGOT) 17 U/L (15-37); Alanine Aminotransfer ALT/SGPT 23 U/L (13-56); Albumin, Serum 3.7 g/dL (3.2-5.0); Alkaline Phosphatase 66 U/L (45-117); Anion Gap 11 (5-15); BUN 22 mg/dL (7-18); BUN/Creat Ratio 29.3 RATIO (10-20); Calcium,Total 9.2 mg/dL (8.5-10.1); Chloride 106 mmol/L (98-107); Creatinine, Serum 0.75 mg/dL (0.55-1.02); EST Glomerular Filtration Rate 82 mL/min (>60); Est Glom Filt Rate - Afr Amer 99 mL/min (>60); Globulin 4.6 g/dL (2.2-4.2); Glucose 80 mg/dL (74-106); Potassium 4.6 mmol/L (3.5-5.1); Protein, Total 8.3 g/dL (6.4-8.2); Sodium Level 141 mmol/L (136-145); Thyroid Stim Hormone (TSH) 1.73 uIU/mL (0.358-3.74)
[2018-04-30 17:52] LABS: Absolute Lymphocyte Count 2.54 X10^3/ul (0.83-4.51); Absolute Neutrophil Count 6.3 X10^3/uL (2.0-7.7); Basophil# 0.05 X10^3/uL; Basophil% 0.5 % (0-1); Eosinophil# 0.14 X10^3/uL; Eosinophils% 1.3 % (0-5); Hematocrit 34.8 % (37-47); Hemoglobin 10.3 g/dl (12.0-15.0); Lymphocyte # 2.54 X10^3/ul (4.0); Lymphocyte % 24.1 % (19-41); Mean Corp Hgb Conc 29.6 g/gl (32-36); Mean Corpuscular Hgb 20.8 pg (27.0-32.0); Mean Corpuscular Volume 70.2 fL (81-99); Mean Platelet Vol. 9.7 fl (6.2-12.0); Monocyte# 1.45 X10^3/uL; Monocyte% 13.8 % (0-10); Neutrophil # 6.33 X10^3/uL (2.7-7.7); Neutrophil % 60.1 % (47-70); Platelet Count 518 K/mm3 (150-450); RBC Distribution Width CV 20.6 % (11.6-14.6); Red Blood Count 4.96 M/mm3 (4.2-5.4); White Blood Count 10.5 K/mm3 (4.4-11.0)
[2018-04-30 17:55] LABS: Differential Indicated SCAN CRITERIA MET; POSITIVE COUNT NO; POSITIVE DIFFERENTIAL NO; POSITIVE MORPHOLOGY YES
[2018-04-30 18:09] LABS: Partial Thromboplast Time 35.3 Seconds (24.1-36.2); Prothrombin Time (Protime)PT. 12.9 SECONDS (11.7-14.9)
[2018-04-30 20:47] LABS: Differential Comment SCANNED
[2018-04-30 20:48] LABS: Anisocytosis 3+; Hypochromasia 2+; Microcytosis 1+; Platelet Estimate SLT INC (ADEQ)
--- OUTSIDE RECORDS SUMMARY | 2018-06-12 08:30 | XMS RPT_ITS ---
:1950 Author Organization OHIP Support Name Relationship Address Phone DARRYL JASPAL Unavailable Unavailable + FOUNTAIN, ALEX Unavailable Unavailable + R Unavailable Unavailable Unavailable GRISSINGER, JASPAL Unavailable Unavailable + FOUNTAIN, ALEX Unavailable Unavailable + R Unavailable Unavailable Unavailable GRISSINGER, JASPAL Unavailable Unavailable + FOUNTAIN, ALEX Unavailable Unavailable + R Unavailable Unavailable Unavailable GRISSINGER, JASPAL Unavailable Unavailable + FOUNTAIN, ALEX Unavailable Unavailable + R Unavailable Unavailable Unavailable GRISSINGER, JASPAL Unavailable Unavailable + FOUNTAIN, ALEX Unavailable Unavailable + R Unavailable Unavailable Unavailable GRISSINGER, JASPAL Unavailable Unavailable + FOUNTAIN, ALEX Unavailable Unavailable + R Unavailable Unavailable Unavailable GRISSINGER, JASPAL Unavailable Unavailable + FOUNTAIN, ALEX Unavailable Unavailable + R Unavailable Unavailable Unavailable GRISSINGER, JASPAL Unavailable Unavailable + FOUNTAIN, ALEX Unavailable Unavailable + R Unavailable Unavailable Unavailable GRISSINGER, JASPAL Unavailable Unavailable + FOUNTAIN, ALEX Unavailable Unavailable + R Unavailable Unavailable Unavailable GRISSINGER, JASPAL Unavailable Unavailable + FOUNTAIN, ALEX Unavailable Unavailable + R Unavailable Unavailable Unavailable GRISSINGER, JASPAL Unavailable Unavailable + FOUNTAIN, ALEX Unavailable Unavailable + R Unavailable Unavailable Unavailable GRISSINGER, JASPAL Unavailable Unavailable + FOUNTAIN, ALEX Unavailable Unavailable + R Unavailable Unavailable Unavailable GRISSINGER, JASPAL Unavailable Unavailable + FOUNTAIN, ALEX Unavailable Unavailable + R Unavailable Unavailable Unavailable GRISSINGER, JASPAL Unavailable Unavailable + FOUNTAIN, ALEX Unavailable Unavailable + R Unavailable Unavailable Unavailable GRISSINGER, JASPAL Unavailable Unavailable + FOUNTAIN, ALEX Unavailable Unavailable + R Unavailable Unavailable Unavailable GRISSINGER, JASPAL Unavailable . + ., [place] . [place], ALEX Unavailable . + ., [place] . R Unavailable Unavailable Unavailable GRISSINGER, JASPAL Unavailable Unavailable + FOUNTAIN, ALEX Unavailable Unavailable + R Unavailable Unavailable Unavailable GRISSINGER, JASPAL Unavailable . + ., [place] . [place], ALEX Unavailable . + ., [place] . R Unavailable Unavailable Unavailable GRISSINGER, JASPAL Unavailable Unavailable + FOUNTAIN, ALEX Unavailable Unavailable + R Unavailable Unavailable Unavailable GRISSINGER, Jaspal Unavailable . + [place] [address] FOUNTAIN, REMY Unavailable . + [place] [address] R Unavailable Unavailable Unavailable GRISSINGER, JASPAL Unavailable Unavailable + FOUNTAIN, ALEX Unavailable Unavailable + R Unavailable Unavailable Unavailable GRISSINGER, Jaspal Unavailable Unavailable + [place] [address] FOUNTAIN, REMY Unavailable Unavailable + [place] [address] R Unavailable Unavailable Unavailable GRISSINGER, Jaspal Unavailable Unavailable + [place] [address] FOUNTAIN, REMY Unavailable Unavailable + [place] [address] R Unavailable Unavailable Unavailable GRISSINGER, Jaspal Unavailable Unavailable + [place] [address] FOUNTAIN, REMY Unavailable Unavailable + [place] [address] R Unavailable Unavailable Unavailable GRISSINGER, Jaspal Unavailable Unavailable + [place] [address] FOUNTAIN, REMY Unavailable Unavailable + [place] [address] R Unavailable Unavailable Unavailable GRISSINGER, Jaspal Unavailable Unavailable + [place] [address] FOUNTAIN, REMY Unavailable Unavailable + [place] [address] R Unavailable Unavailable Unavailable GRISSINGER, Jaspal Unavailable Unavailable + [place] [address] FOUNTAIN, REMY Unavailable Unavailable + [place] [address] R Unavailable Unavailable Unavailable GRISSINGER, Jaspal Unavailable Unavailable + [place] [address] FOUNTAIN, REMY Unavailable Unavailable + [place] [address] R Unavailable Unavailable Unavailable GRISSINGER, Jaspal Unavailable Unavailable + [place] [address] FOUNTAIN, REMY Unavailable Unavailable + [place] [address] R Unavailable Unavailable Unavailable GRISSINGER, JASPAL Unavailable Unavailable Unavailable GUNTER CHARISSA Unavailable Unavailable Unavailable GRISSINGER, Jaspal Unavailable Unavailable + [place] [address] FOUNTAIN, REMY Unavailable Unavailable + [place] [address] R Unavailable Unavailable Unavailable GRISSINGER, Jaspal Unavailable Unavailable + [place] [address] FOUNTAIN, REMY Unavailable Unavailable + [place] [address] R Unavailable Unavailable Unavailable GRISSINGER, Jaspal Unavailable Unavailable + [place] [address] FOUNTAIN, REMY Unavailable Unavailable + [place] [address] R Unavailable Unavailable Unavailable GRISSINGER, Jaspal Unavailable Unavailable + [place] [address] FOUNTAIN, REMY Unavailable Unavailable + [place] [address] R Unavailable Unavailable Unavailable GRISSINGER, Jaspal Unavailable Unavailable + [place] [address] FOUNTAIN, REMY Unavailable Unavailable + [place] [address] R Unavailable Unavailable Unavailable GRISSINGER, Jaspal Unavailable Unavailable + [place] [address] FOUNTAIN, REMY Unavailable Unavailable + [place] [address] R Unavailable Unavailable Unavailable GRISSINGER, Jaspal Unavailable Unavailable + [place] [address] FOUNTAIN, REMY Unavailable Unavailable + [place] [address] R Unavailable Unavailable Unavailable GRISSINGER, JASPAL Unavailable Unavailable Unavailable GUNTER, CHARISSA Unavailable Unavailable Unavailable GRISSINGER, Japsal Unavailable Unavailable + [place] [address] FOUNTAIN, REMY Unavailable Unavailable + [place] [address] R Unavailable Unavailable Unavailable GRISSINGER, Jaspal Unavailable Unavailable + [place] [address] FOUNTAIN, REMY Unavailable Unavailable + [place] [address] R Unavailable Unavailable Unavailable GRISSINGER, Jaspal Unavailable Unavailable + [place] [address] FOUNTAIN, REMY Unavailable Unavailable + [place] [address] R Unavailable Unavailable Unavailable GRISSINGER, Jaspal Unavailable Unavailable + [place] [address] FOUNTAIN, REMY Unavailable Unavailable + [place] [address] R Unavailable Unavailable Unavailable GRISSINGER, JASPAL Unavailable Unavailable Unavailable GUNTER, CHARISSA Unavailable Unavailable Unavailable GRISSINGER, JASPAL Unavailable Unavailable Unavailable GUNTER, CHARISSA Unavailable Unavailable Unavailable GRISSINGER, JASPAL Unavailable Unavailable Unavailable GUNTER, CHARISSA Unavailable Unavailable Unavailable GRISSINGER, Jaspal Unavailable Unavailable + [place] [address] FOUNTAIN, REMY Unavailable Unavailable + [place] [address] R Unavailable Unavailable Unavailable GRISSINGER, Jaspal Unavailable Unavailable + [place] [address] FOUNTAIN, REMY Unavailable Unavailable + [place] [address] R Unavailable Unavailable Unavailable GRISSINGER, Jaspal Unavailable Unavailable + [place] [address] FOUNTAIN, REMY Unavailable Unavailable + [place] [address] R Unavailable Unavailable Unavailable GRISSINGER, Jaspal Unavailable Unavailable + [place] [address] FOUNTAIN, REMY Unavailable Unavailable + [place] [address] R Unavailable Unavailable Unavailable GRISSINGER, Jaspal Unavailable Unavailable + [place] [address] FOUNTAIN, REMY Unavailable Unavailable + [place] [address] R Unavailable Unavailable Unavailable GRISSINGER, Jaspal Unavailable Unavailable + [place] [address] FOUNTAIN, REMY Unavailable Unavailable + [place] [address] R Unavailable Unavailable Unavailable GRISSINGER, Jaspal Unavailable Unavailable + [place] [address] FOUNTAIN, REMY Unavailable Unavailable + [place] [address] R Unavailable Unavailable Unavailable GRISSINGER, JASPAL Unavailable Unavailable Unavailable GUNTER, CHARISSA Unavailable Unavailable Unavailable GRISSINGER, Jaspal Unavailable Unavailable + [place] [address] FOUNTAIN, REMY Unavailable Unavailable + [place] [address] R Unavailable Unavailable Unavailable GRISSINGER, Jaspal Unavailable Unavailable + [place] [address] FOUNTAIN, REMY Unavailable Unavailable + [place] [address] R Unavailable Unavailable Unavailable GRISSINGER, Jaspal Unavailable Unavailable + [place] [address] FOUNTAIN, REMY Unavailable Unavailable + [place] [address] R Unavailable Unavailable Unavailable GRISSINGER, Jaspal Unavailable Unavailable + [place] [address] FOUNTAIN, REMY Unavailable Unavailable + [place] [address] R Unavailable Unavailable Unavailable GRISSINGER, Jaspal Unavailable Unavailable + [place] [address] FOUNTAIN, REMY Unavailable Unavailable + [place] [address] R Unavailable Unavailable Unavailable GRISSINGER, Jaspal Unavailable Unavailable + [place] [address] FOUNTAIN, REMY Unavailable Unavailable + [place] [address] R Unavailable Unavailable Unavailable GRISSINGER, Jaspal Unavailable Unavailable + [place] [address] FOUNTAIN, REMY Unavailable Unavailable + [place] [address] R Unavailable Unavailable Unavailable GRISSINGER, Jaspal Unavailable Unavailable + [place] [address] FOUNTAIN, REMY Unavailable Unavailable + [place] [address] R Unavailable Unavailable Unavailable GRISSINGER, Jaspal Unavailable Unavailable + [place] [address] FOUNTAIN, REMY Unavailable Unavailable + [place] [address] R Unavailable Unavailable Unavailable GRISSINGER, Jaspal Unavailable Unavailable + [place] [address] FOUNTAIN, REMY Unavailable Unavailable + [place] [address] R Unavailable Unavailable Unavailable GRISSINGER, Jaspal Unavailable Unavailable + [place] [address] FOUNTAIN, REMY Unavailable Unavailable + [place] [address] R Unavailable Unavailable Unavailable GRISSINGER, Jaspal Unavailable Unavailable + [place] [address] FOUNTAIN, REMY Unavailable Unavailable + [place] [address] R Unavailable Unavailable Unavailable GRISSINGER, Jaspal Unavailable Unavailable + [place] [address] FOUNTAIN, REMY Unavailable Unavailable + [place] [address] R Unavailable Unavailable Unavailable FOUNTAIN, REMY Unavailable . + [place] [address] R Unavailable Unavailable Unavailable FOUNTAIN, REMY Unavailable . + [place] [address] R Unavailable Unavailable Unavailable Lashell Chavez Unavailable Unavailable + GRISSINGER, Jaspal Unavailable Unavailable + [place] [address] FOUNTAIN, REMY Unavailable Unavailable + [place] [address] R Unavailable Unavailable Unavailable FOUNTAIN, REMY Unavailable . + [place] [address] R Unavailable Unavailable Unavailable R Unavailable Unavailable Unavailable GRISSINGER, JASPAL Unavailable Unavailable Unavailable GUNTER CHARISSA Unavailable Unavailable Unavailable FOUNTAIN, REMY Unavailable . + [place] [address] R Unavailable Unavailable Unavailable FOUNTAIN, REMY Unavailable . + [place] [address] R Unavailable Unavailable Unavailable R Unavailable Unavailable Unavailable GRISSINGER, Jaspal Unavailable Unavailable + [place] [address] FOUNTAIN, REMY Unavailable Unavailable + [place] [address] R Unavailable Unavailable Unavailable GRISSINGER, JASPAL/JAMES Unavailable [address] + [place] [address] FOUNTAIN, REMY Unavailable Unavailable + [place], [place] R Unavailable Unavailable Unavailable GRISSINGER, JASPAL/JAMES Unavailable [address] + [place] [address] FOUNTAIN, REMY Unavailable / + [place], [place] / R Unavailable Unavailable Unavailable FOUNTAIN, REMY Unavailable . + [place] [address] R Unavailable Unavailable Unavailable GRISSINGER, Jaspal Unavailable Unavailable + [place] [address] FOUNTAIN, REMY Unavailable Unavailable + [place] [address] R Unavailable Unavailable Unavailable GRISSINGER, JASPAL/JAMES Unavailable [address] + [place] [address] FOUNTAIN, REMY Unavailable Unavailable + [place], [place] R Unavailable Unavailable Unavailable GRISSINGER, JASPAL/JAMES Unavailable [address] + [place] [address] FOUNTAIN, REMY Unavailable / + [place], [place] / R Unavailable Unavailable Unavailable GRISSINGER, JASPAL/JAMES Unavailable [address] + [place] [address] FOUNTAIN, REMY Unavailable Unavailable + [place], [place] R Unavailable Unavailable Unavailable GRISSINGER, JASPAL/JAMES Unavailable [address] + [place] [address] FOUNTAIN, REMY Unavailable Unavailable + [place], [place] R Unavailable Unavailable Unavailable GRISSINGER, JASPAL/JAMES Unavailable [address] + [place] [address] FOUNTAIN, REMY Unavailable Unavailable + [place], [place] R Unavailable Unavailable Unavailable GRISSINGER, JASPAL/JAMES Unavailable [address] + [place] [address] FOUNTAIN, REMY Unavailable / + [place], [place] / R Unavailable Unavailable Unavailable GRISSINGER, JASPAL/JAMES Unavailable [address] + [place] [address] ISIDRO FOUNTAINI Unavailable / + [place], [place] / R Unavailable Unavailable Unavailable GRISSINGER, JASPAL/JAMES Unavailable [address] + [place] [address] ESSIE REMY Unavailable / + [place], [place] / R Unavailable Unavailable Unavailable GRISSINGER, JASPAL/JAMES Unavailable [address] + [place] [address] ESSIE REMY Unavailable / + [place], [place] / R Unavailable Unavailable Unavailable Care Team Providers Name Role Phone Carlos Akavon Jacqueline Attending Unavailable PROVIDER, UNKNOWN Referring Unavailable DANIEL, CHEMA-CHI Primary Care Unavailable TRAUGTHO MATAMOROS Attending Unavailable JESSICA TERRAZAS Referring Unavailable DANIEL, CHEMA-CHI Primary Care Unavailable TRAUGOTT, THO Ramesh Attending Unavailable TRAUGOTT, THO L Referring Unavailable TRAUGOTT, THO Ramesh Admitting Unavailable TRAUGOTTTHO Attending Unavailable DANIEL, CHEMA-CHI Primary Care Unavailable NATHAN WEINER Attending Unavailable TRAUGOTT, THO Ramesh Referring Unavailable DANIEL, CHEMA-CHI Primary Care Unavailable NATHAN WEINER Attending Unavailable TRAUGOTT, THO L Referring Unavailable DANIEL, CHEMA-CHI Primary Care Unavailable TRAUGOTT, THO L Attending Unavailable DANIEL, CHEMA-CHI Referring Unavailable DANIEL, CHEMA-CHI Primary Care Unavailable TRAUGOTT, THO L Attending Unavailable DANIEL, CHEMA-CHI Referring Unavailable DANIEL, CHEMA-CHI Primary Care Unavailable Jamieghe, Efewongbe Attending Unavailable Jamieghe, Efewongbe Referring Unavailable Regino Hansen Admitting Unavailable Regino Hansen Attending Unavailable Regino Hansen Referring Unavailable Daniel, Chema Chi Primary Care Unavailable Regino Hansen Consulting Unavailable Regino Hansen Admitting Unavailable Regino Hansen Attending Unavailable Jade Regino Referring Unavailable Daniel, Chema Chi Primary Care Unavailable Regino Hansen Consulting Unavailable Regino Hansen Admitting Unavailable Raúl Villareal Attending Unavailable Regino Hansen Referring Unavailable Daniel, Chema Chi Primary Care Unavailable Raúl Villareal Consulting Unavailable Regino Hansen Admitting Unavailable aRúl Villareal Attending Unavailable Regino Hansen Referring Unavailable Daniel, Chema Chi Primary Care Unavailable Dionna, Raúl Consulting Unavailable Regino Hansen Admitting Unavailable SlabyRegino Attending Unavailable Slaby, Regino Referring Unavailable Daniel, Chema Chi Primary Care Unavailable Jopperi, Raúl Consulting Unavailable Oleghe, Efewongbe Attending Unavailable Daniel, Chema Chi Primary Care Unavailable Daniel, Chema Chi Attending Unavailable Daniel, Chema Chi Primary Care Unavailable Oleghe, Efewongbe Attending Unavailable Daniel, Chema Chi Primary Care Unavailable Oleghe, Efewongbe Attending Unavailable Oleghe, Efewongbe Attending Unavailable Daniel, Chema Chi Primary Care Unavailable Daniel, Chema Chi Attending Unavailable Daniel, Chema Chi Primary Care Unavailable Oleghe, Efewongbe Attending Unavailable Daniel, Chema Chi Primary Care Unavailable Slaby Regino Admitting Unavailable Slabtom, Regino Attending Unavailable Slaby, Regino Referring Unavailable Daniel, Chema Chi Primary Care Unavailable Jopperi, Raúl Consulting Unavailable Oleghe, Efewongbe Attending Unavailable Oleghe, Efewongbe Referring Unavailable Oleghe, Efewongbe Attending Unavailable Oleghe, Efewongbe Referring Unavailable Oleghe, Efewongbe Attending Unavailable Oleghe, Efewongbe Referring Unavailable Oleghe, Efewongbe Attending Unavailable Oleghe, Efewongbe Referring Unavailable SashaNova Attending Unavailable Daniel, Chema Chi Referring Unavailable Daniel, Chema Chi Primary Care Unavailable GermantownNova flores Attending Unavailable Daniel, Chema Chi Primary Care Unavailable SashaNova Referring Unavailable Oleghe, Efewongbe Attending Unavailable Oleghe, Efewongbe Referring Unavailable Daniel, Chema Chi Primary Care Unavailable KailynbuJessica ramesh Attending Unavailable Daniel, Chema Chi Referring Unavailable Daniel, Chema Chi Primary Care Unavailable Maricel Miller PA-C Attending Unavailable Maricel Miller PA-C Referring Unavailable Jessica Terrazas Consulting Unavailable Oleghe, Efewongbe Attending Unavailable Oleghe, Efewongbe Referring Unavailable Cebul Jessica Attending Unavailable Cebul, Jessica Referring Unavailable Daniel, Chema Chi Primary Care Unavailable Cebul Jessica Attending Unavailable Cebul, Jessica Referring Unavailable Daniel, Chema Chi Primary Care Unavailable Cebul Jessica Consulting Unavailable Cebul, Jessica Attending Unavailable Cebul, Jessica Referring Unavailable Daniel, Chema Chi Primary Care Unavailable Oleghe, Efewongbe Attending Unavailable Oleghe, Efewongbe Referring Unavailable Oleghe, Efewongbe Attending Unavailable Oleghe, Efewongbe Referring Unavailable Oleghe, Efewongbe Attending Unavailable [facility] Primary Care Unavailable Oleghe, Efewongbe Attending Unavailable Oleghe, Efewongbe Referring Unavailable Oleghe, Efewongbe Attending Unavailable Oleghe, Efewongbe Referring Unavailable Jessica Terrazas Attending Unavailable Oleghe, Efewongbe Attending Unavailable [facility] Primary Care Unavailable Oleghe, Efewongbe Attending Unavailable Oleghe, Efewongbe Referring Unavailable Oleghe, Efewongbe Attending Unavailable Oleghe, Efewongbe Referring Unavailable [facility] Attending Unavailable [facility] Primary Care Unavailable Oleghe, Efewongbe Attending Unavailable Oleghe, Efewongbe Referring Unavailable Oleghe, Efewongbe Attending Unavailable Oleghe, Efewongbe Referring Unavailable Oleghe, Efewongbe Attending Unavailable Oleghe, Efewongbe Referring Unavailable Oleghe, Efewongbe Attending Unavailable Oleghe, Efewongbe Referring Unavailable Oleghe, Efewongbe Attending Unavailable [facility] Primary [facility] Unavailable Oleghe, Efewongbe Attending Unavailable [facility] Unavailable Oleghe, Efewongbe Attending Unavailable Oleghe, Efewongbe Referring Unavailable Oleghe, Efewongbe Attending Unavailable Oleghe, Efewongbe Referring Unavailable Oleghe, Efewongbe Attending Unavailable Oleghe, Efewongbe Referring Unavailable Oleghe, Efewongbe Attending Unavailable Oleghe, Efewongbe Referring Unavailable Regino Hansen Attending Unavailable [facility] Primary Care Unavailable Oleghe, Efewongbe Consulting Unavailable Oleghe, Efewongbe Attending Unavailable [facility] Primary Care Unavailable Oleghe, Efewongbe Attending Unavailable Oleghe, Efewongbe Referring Unavailable Oleghe, Efewongbe Attending Unavailable Oleghe, Efewongbe Referring Unavailable Oleghe, Efewongbe Attending Unavailable Oleghe, Efewongbe Referring Unavailable Oleghe, Efewongbe Attending Unavailable Oleghe, Efewongbe Referring Unavailable Daniel, Chema Chi Primary Care Unavailable DOCTOR, OUT OF [place] Attending Unavailable Oleghe, Efewongbe Attending Unavailable Daniel, Chema Chi Primary Care Unavailable Oleghe, Efewongbe Attending Unavailable Oleghe, Efewongbe Attending Unavailable Oleghe, Efewongbe Attending Unavailable Oleghe, Efewongbe Attending Unavailable Oleghe, Efewongbe Attending Unavailable Daniel, Chema Chi Primary Care Unavailable Oleghe, Efewongbe Attending Unavailable Oleghe, Efewongbe Referring Unavailable Oleghe, Efewongbe Attending Unavailable Oleghe, Efewongbe Referring Unavailable Oleghe, Efewongbe Attending Unavailable Oleghe, Efewongbe Referring Unavailable SlabyRegino Attending Unavailable Daniel, Chema Chi Primary Care Unavailable Oleghe, Efewongbe Consulting Unavailable Oleghe, Efewongbe Attending Unavailable Oleghe, Efewongbe Referring Unavailable Oleghe, Efewongbe Attending Unavailable Oleghe, Efewongbe Referring Unavailable Daniel, Chema Chi Attending Unavailable Daniel, Chema Chi Primary Care Unavailable Oleghe, Efewongbe Attending Unavailable Daniel, Chema Chi Primary Care Unavailable Regino Hansen Attending Unavailable Regino Hansen Referring Unavailable Daniel, Chema Chi Primary Care Unavailable DeHorta, Raúl Consulting Unavailable Beatriz, Mitchell Attending Unavailable Daniel, Chema Chi Referring Unavailable Beatriz, Leoti Attending Unavailable Daniel, Chema Chi Primary Care Unavailable Beatriz, Leoti Referring Unavailable Regino Hansen Attending Unavailable Jade Regino Referring Unavailable Daniel, Chema Chi Primary Care Unavailable DeHorta, Raúl Consulting Unavailable Jade Regino Consulting Unavailable Beatriz, Leoti Attending Unavailable Beatriz, Mitchell Referring Unavailable Daniel, Chema Chi Primary Care Unavailable Beatriz, Leoti Consulting Unavailable Oleghe, Efewongbe Attending Unavailable Oleghe, Efewongbe Referring Unavailable Oleghe, Efewongbe Attending Unavailable Oleghe, Efewongbe Referring Unavailable Daniel, Chema Chi Primary Care Unavailable Daniel, Chema Chi Attending Unavailable Daniel, Chema Chi Referring Unavailable Oleghe, Efewongbe Attending Unavailable Oleghe, Efewongbe Referring Unavailable Daniel, Chema Chi Attending Unavailable Daniel, Chema Chi Referring Unavailable Daniel, Chema Chi Primary Care Unavailable Oleghe, Efewongbe Attending Unavailable Daniel, Chema Chi Primary Care Unavailable Slaby, Regino Referring Unavailable Daniel, Chmea Chi Primary Care Unavailable Regino Hansen Admitting Unavailable Raúl Villareal Attending Unavailable Raúl Villareal Consulting Unavailable PROBLEMS PROBLEMS DATE TYPE CONDITION / CODE ATTENDING STATUS SOURCE Unknown 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, Community stage 4 / Hospital L89.154(ICD-10) Repository Unknown G89.18 - Other acute Raúl Villareal Active [place] 8 postprocedural pain / Community G89.18(ICD-10) Hospital Repository Unknown E55.9 - Vitamin D Daniel, Chema Chi Active [place] [facility] deficiency, unspecified Community / E55.9(ICD-10) Hospital Repository Unknown 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, 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, Community left eye, with retinal Hospital neovascularization / Repository H34.8121(ICD-10) Unknown I10 - Essential Daniel, Chema Chi Active [place] 8 (primary) hypertension Community / I10(ICD-10) Hospital Repository Unknown 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 / Hospital I27.21(ICD-10) Repository Unknown Z01.810 - Encounter for BeatrizEusebio pottsril Active [place] 8 preprocedural [facility] cardiovascular Hospital examination / Repository Z01.810(ICD-10) Unknown I35.9 - 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 Repository Unknown N39.0 - Urinary tract Oleghe, Active [place] 8 infection, site not [facility] specified / Hospital N39.0(ICD-10) Repository Unknown R09.89 - Other Mk Jessica Active [place] 8 specified symptoms and Community signs involving the Hospital circulatory and Repository respiratory systems / R09.89(ICD-10) Unknown R82.90 - Unspecified Angela SEQUEIRA, Active [place] 8 abnormal findings in [facility] urine / R82.90(ICD-10) Hospital Repository Unknown N89.8 - Other specified [place], Active [place] 8 noninflammatory [place] [facility] disorders of vagina / Hospital N89.8(ICD-10) Repository Unknown L89.613 - Pressure Oleg[place], Active [place] 8 ulcer of right heel, [facility] stage 3 / Hospital L89.613(ICD-10) Repository Unknown L89.623 - Pressure Oleghe, Active [place] 8 ulcer of left heel, [facility] stage 3 / Hospital L89.623(ICD-10) Repository PROCEDURES PROCEDURES No Procedure Records FoundRESULTS RESULTS DISCHARGE SUMMARY Observed: 05/20/2018 Status: F Source: [place] 7:01 PM [facility] H[facility]PITAL REPOSITORY [facility] Medical Records Department [address] [place] [address] Discharge Summary 05/17/18 1709 MR#: [id number] Acct: [id number] Name: CHARISSA GUNTER Rep #: [id number] : 1950 67 From: Regino Hansen MD PCP: Daniel MELISSA,Apixio Status: DIS IN Y Location: MS3 [id number] Discharge Date and Diagnosis Date of Admission: 05/14/18 Date of Discharge: 05/17/18 - Primary Discharge Diagnosis Sacral pressure sore, Stage IV. Acute blood loss anemia. - Secondary Discharge Diagnosis Secondary pulmonary arterial hypertension Non-rheumatic tricuspid valve insufficiency Essential (primary) hypertension Morbid obesity with BMI of 40.0-44.9, adult GERD (gastroesophageal reflux disease) Depression Hypothyroidism Neuropathy Hospital Course and Treatment Imaging Results: Diagnostic Data Abdomen/Pelvis CT 05/16/18 10:30 IMPRESSION: Since prior study, the skin soft tissue defect overlying the distal portion of the sacrum as progressed. The defect abuts the sacral bone although there is no evidence of bony destruction at this time. The remainder the examination is unchanged. Electronically Signed: Fidel Rojas MD at 12:47 EST Tel [phone], Service support , Consultations 05/15/18 06:44 Consult: Onc/Wound/commutator repairer Routine Comment: Reason for Consult:: Sacral Excision Hospitalist Group - Dr. Villareal. Operations: - - 05/14/18 - Excision sacral pressure sore, Stage IV, with partial ostectomy for osteomyelitis. Procedures: Blood transfusion, Wound vac placement Summary of Care Provided: 67 year old woman presents for further evaluation of her sacral pressure sore. I initially saw her in August. A CT was done which showed no evidence of osteomyelitis, but did show evidence of a colovaginal fistula. The fistula was surgically repaired in December at [facility]. She had a sacral wound culture done on 01/02/18 and it showed Staphylococcus aureus. She was treated with antibiotics. She was recently discharged from a detention. I was asked to evaluate her sacral pressure sore for surgical options for treatment. On 05/14/18, the patient was taken to the OR and underwent excision sacral pressure sore, Stage IV, with partial ostectomy for osteomyelitis. She tolerated the procedure well. Later in the evening, the patient got out of bed and went to the bathroom and developed some oozing in the wound. I came in to evaluate. The dressing was changed. A small amount of clot was removed, about 50 ml. Silver nitrate was used for chemical cauterization. The next day the VAC was applied. The Hgb the next day was 7.2. PRBC was given. Repeat Hgb was 5.8. No obvious source of bleeding identified. The wound was stable with the VAC. A CT Abdomen and Pelvis was done to look for a source of the bleeding. The scan was unremarkable. A Hospitalist consult was obtained to assist with medical management. The patient's VS were stable and it was felt that it could have been lab error. She had endoscopy in the last year without evidence of bleeding. Repeat Hgb after PRBC was 10. Also Iron supplementation was started. On the third postop day, the wound was stable as the VAC was changed. She was discharged home in satisfactory condition. Operative culture showed Coag negative Staph and Gram positive burke. Pathology is pending. She was discharged home on Augmentin. Wrote scripts for Percocet for pain (30 tabs) and for Valium for spasm (30 tabs). Wrote scripts for Augmentin for 14 days and for Iron supplements (30 tabs) and 3 refills. She will followup with her PCP for further evaluation of her anemia of chronic disease. Followup at Wound Center on Sunday05/22/[address] Santiago. She will see me at the Wound Center in 3 weeks. When the Pathology is available, if positive for osteomyelitis, the patient will need a PICC line placed and IV antibiotics started. - Physical Exam General: Alert, Oriented x3 HEENT: PERRLA, EOMI Oral: Moist Mucosa Neck: Supple Abdomen: Soft, Non Tender, Non-Distended Skin: Ulcer/ Wound - sacral wound is stable. No active bleeding noted. VAC changed the day of discharge. Neurological: Cranial nerves II-XII grossly intact Psych/Mental Status: Normal Affect, Appropriate Vital Signs Temp Pulse Resp BP Pulse Ox 98.6 F 73 16 111/63 95 05/17/18 16:31 05/17/18 16:31 05/17/18 16:31 05/17/18 16:31 05/17/18 16:31 Oxygen Delivery Method Room Air Weight: 202 lb 13.204 oz Body Mass Index (BMI) 34.8 Intake and Output for Last 24 Hours Intake Total 1672 / 1672 3560 / 3560 2771 / 2771 Output Total 1475 / 1475 2550 / 2550 2875 / 2875 Balance 197 / 197 1010 / 1010 -104 / -104 Microbiology Past 72 Hours 05/14/18 Unknown Gram Stain - Final Bone - Other Wound Culture - Preliminary Pathology - pending. Laboratory Tests Past 24 Hrs WBC 12.5 H RBC 3.98 L Hgb 9.7 L Hct 31.0 L MCV 77.9 L WBC RBC Hgb 10.0 L Hct 31.5 L MCV MCH MCHC RDW RDW Differential Plt Count MPV Differential Comment Diff Path Review Crossmatch Discharge Diet: No Restrictions, - - encourage nutritional supplementation with protein to help the healing process. Discharge Activity: May Shower - oon the days the vac is changed. May resume sexual activity in: 10-14 days Weight Bearing Status: Weight bearing as tolerated Call your doctor if your incision/area has: Continuous Slow Oozing, Sudden Increased Bleeding, Increased Pain/ Swelling, Increased Redness, Foul Smelling Discharge, Swelling at the incision site Call your doctor if you observe: Fever of 101 or Higher, Coldness, Increased Pain, Shortness of breath, Chest pain, Calf discomfort, Uncontrolled pain Suture Line Care: - - vac changes three times per week at 150 mmHg continuous suction. Change Dressing in (Days):: 2 - vac changes 3 times per week. Cleanse incision/area with: Soap AND Water - may cleanse the sacral wound with soap and water on the days the vac is changed. Home Medications: Medications to take at Discharge Levothyroxine [Synthroid] 25 mcg PO DAILY 03/02/17 cholecalciferol (vitamin D3) 50,000 unit capsule 50,000 unit PO QMONTH 08/02/17 Ascorbic Acid 500 mg PO DAILY 08/21/17 Potassium Chloride [K-Dur] 40 meq PO DAILY 12/26/17 Aspirin E.C. [Ecotrin] 81 mg PO DAILY 04/11/18 Omeprazole 40 mg PO 1800 04/11/18 green tea leaf extract capsule 1 cap PO DAILY cap 04/19/18 omega-3 fatty acids 1,000 mg capsule 1,000 mg PO DAILY 04/19/18 Acetaminophen [Tylenol Tablet] 650 mg PO Q6H PRN PRN tablet 05/17/18 Amox/Clavulanate Tablet [Augmentin Tablet] 875 mg PO BID #28 tab 05/17/18 Diazepam [Valium] 4 mg PO TID PRN PRN #30 tab 05/17/18 Docusate Sodium [Colace] 100 mg PO BID capsule 05/17/18 Ferrous Sulfate 325 mg PO DAILY@0800 #14 tablet 05/17/18 Iron Polysaccharide Complex [Ferrex 150] 150 mg PO DAILYCM #30 cap 05/17/18 Oxycodone HCl/Acetaminophen [Percocet 5/325] 1 tab PO 4X/DAY PRN PRN 7 Days #30 tab 05/17/18 proMETHazine tablet [Phenergan tablet] 25 mg PO Q4H PRN PRN tablet 05/17/18 Following Prescrptions Were Given to Patient: Diazepam [Valium] 4 mg PO TID PRN PRN #30 tab PRN Reason: Spasms Ferrous Sulfate 325 mg PO DAILY@0800 #14 tablet Iron Polysaccharide Complex [Ferrex 150] 150 mg PO DAILYCM #30 cap Oxycodone HCl/Acetaminophen [Percocet 5/325] 1 tab PO 4X/DAY PRN PRN 7 Days #30 tab PRN Reason: Pain Amox/Clavulanate Tablet [Augmentin Tablet] 875 mg PO BID #28 tab Other Amb Orders: CBC-Complete Blood Cnt No Diff Time Frame: 1 Week, Location: Laboratory Primary Care Physician: Chema Schmidt Chi, MD [Primary Care Provider] - Please Follow Up With: Regino Hansen MD When: 3 weeks at wound center. call [phone] for appt. Please Follow Up With: Brant Santiago MD When: sunday05/22/18 at wound center. Please Follow Up With: Chema Schmidt Chi, MD When: one month to further evaluate chronic anemia. Disposition: Home with Home Health Minutes spent on discharge:: 35 Patient Condition:: Stable Medical Necessity - Tobacco Use Smoking Status: Former smoker Meaningful Use Info Meaningful Use Diagnoses (Choose all that apply): None applicable 05/20/181900 <Electronically signed by Regino Hansen MD> Date Regino Hansen MD Cosigner Signature (if applicable): Date CC: Brant Santiago MD; Raúl Villareal DO; Regino Hansen MD; Chema Schmidt MD; [facility] Signed OPERATIVE REPORT Observed: 05/20/2018 Status: F Source: [place] 5:15 PM [facility] REPOSITORY [facility] Medical Records Department [address] [place] [address] Operative Report 05/14/18 1904 MR#: [id number] Acct: [id number] Name: CHARISSA GUNTER Rep #: [id number] : 1950 67 From: Regino Hansen MD PCP: Chema Schmidt MD, Chi Status: DIS IN Y Location: KY3 [id number] Report of Operation Date of Procedure: 05/14/18 Pre-Operative Diagnosis: 1. Sacral pressure sore, Stage IV. 2. s/p repair colovaginal fistula. Post-Operative Diagnosis: Same. Surgery/Procedure Performed:: Excision sacral pressure sore, Stage IV, with partial ostectomy for osteomyelitis. Description of Surgical Findings:: 67 year old woman presents for further evaluation of her sacral pressure sore. I initially saw her in August. A CT was done which showed no evidence of osteomyelitis, but did show evidence of a colovaginal fistula. The fistula was surgically repaired in December at [facility]. She had a sacral wound culture done on 01/02/18 and it showed Staphylococcus aureus. She was treated with antibiotics. She was recently discharged from a detention. I was asked to evaluate her sacral pressure sore for surgical options for treatment. Patient was informed of the risks and complications of the procedure including alternatives to surgery. These were discussed with the patient personally. Patient voices understanding and wishes to proceed. Size of defect sacral area - 10.5 x 6.5 x 2.5 cm. instructional technology facilitator: None Type of Anesthesia:: General Specimen's removed: 1. Sacral pressure sore soft tissue to Pathology and Microbiology. 2. Sacral pressure sore bone to Pathology and Microbiology. Drains: None. Estimated Blood Loss (mL): 100 ml. Description of Procedure: Patient was taken to OR in supine position and was placed under general anesthesia. She was then placed in the prone position. The sacral area was prepped and draped in the usual fashion. SCD's were placed for DVT prophylaxis. Perioperative antibiotics were given intravenously. Using xylocaine with epinephrine, the sacral pressure sore was infiltrated. After waiting 5 minutes for the anesthetic to take effect, I excised the sacral pressure sore in a circular fashion to include the undermined areas as well. Dissection was carried down into the subcutaneous tissue through the scarred muscle which was adherent to the underlying bone. A partial ostectomy was then performed using rongeurs. The bone looked grayish and was not very hard. Clinically the bone looked suspicious for osteomyelitis. A rasp was used to smooth out the bony edges. After excising the abnormal bursal scar tissue, the remaining soft tissue showed good bleeding. Hemostasis was obtained with electrocautery. The size of the sacral pressure sore after excision was 10.5 x 6.5 x 2.5 cm. Bone wax was needed to help with hemostasis of the raw bryon edges. I then dressed the wound with Mepitel nonadherent dressing followed by Kerlix gauze and Betadine and dry Kerlix gauze followed by ABD pads compression dressing. Half the soft tissue and half the bone was sent to Pathology for analysis to rule out carcinoma and to evaluate for osteomyelitis. Half the soft tissue and half the bone was sent to Microbiology for culture. A positive culture may necessitate antibiotic modification. If pathology is positive for osteomyelitis, then customer success specialist IV antibiotics would be needed through a PICC line. She would also be evaluated at the Wound Center for HBO treatments. Patient tolerated the procedure well and was sent to PACU in satisfactory condition. Patient will be sent upstairs for continued postop care. The VAC will be placed tomorrow. Anticipate increased metabolic demands. Will check a Prealbumin and encourage nutritional supplementation with protein to help the healing process. Grafts/Implants Used: None. - Complications None. - Admit VTE Documentation VTE Present on Admission: No VTE Mechan Device Prophylaxis: SCD's VTE Pharm Prophylaxis ordered?: No Code Visit Surgery Charges CPT - 84176 ICD-10 - L89.154 05/20/18 7918 <Electronically signed by Regino Hansen MD> Date Regino Hansen MD CC: Brant Santiago MD; Raúl Villareal DO; Regino Hansen MD; Chema Schmidt MD; [facility] Signed DISCHARGE INSTRUCTION Observed: 05/17/2018 Status: F Source: [place] 5:10 PM [facility] REPOSITORY [facility] Medical Records Department [address] [place] [address] Instructions for Home/Discharge Instructions 05/17/18 1704 MR#: [id number] Acct: [id number] Name: CHARISSA GUNTER Rep #: [id number] : 1950 67 From: Regino Hansen MD PCP: Chema Schmidt MD, Chi Status: ADM IN - Discharge Diagnoses Current Active Problems: Current Active and Chronic Problems (Last Reviewed 05/16/18 @ 14:58 by Raúl Villareal DO) Acute blood loss anemia (Acute) You will use the following diet at home:: No restrictions, Other - encourage nutritional supplementation with protein to help the healing process. Discharge Activity: May Shower - oon the days the vac is changed. May resume sexual activity in: 10-14 days Weight Bearing Status: Weight bearing as tolerated Call your doctor if your incision/area has: Continuous Slow Oozing, Sudden Increased Bleeding, Increased Pain/ Swelling, Increased Redness, Foul Smelling Discharge, Swelling at the incision site Call your doctor if you observe: Fever of 101 or Higher, Coldness, Increased Pain, Shortness of breath, Chest pain, Calf discomfort, Uncontrolled pain Suture Line Care: - - vac changes three times per week at 150 mmHg continuous suction. Change Dressing in (Days):: 2 - vac changes 3 times per week. Cleanse incision/area with: Soap AND Water - may cleanse the sacral wound with soap and water on the days the vac is changed. Allergies/Adverse Reactions: Allergies bee venom protein (honey bee) Allergy (Verified 04/19/18 13:56) Angioedema metaxalone [From Skelaxin] Allergy (Verified 04/19/18 13:56) Swelling Medications to take at Discharge Levothyroxine [Synthroid] 25 mcg PO DAILY 03/02/17 cholecalciferol (vitamin D3) 50,000 unit capsule 50,000 unit PO QMONTH 03/01/18 Ascorbic Acid 500 mg PO DAILY 08/21/17 Potassium Chloride [K-Dur] 40 meq PO DAILY 12/26/17 Aspirin E.C. [Ecotrin] 81 mg PO DAILY 04/11/18 Omeprazole 40 mg PO 1800 04/11/18 green tea leaf extract capsule 1 cap PO DAILY cap 04/19/18 omega-3 fatty acids 1,000 mg capsule 1,000 mg PO DAILY 04/19/18 Acetaminophen [Tylenol Tablet] 650 mg PO Q6H PRN PRN tablet 05/17/18 Amox/Clavulanate Tablet [Augmentin Tablet] 875 mg PO BID #28 tab 05/17/18 Diazepam [Valium] 4 mg PO TID PRN PRN #30 tab 05/17/18 Docusate Sodium [Colace] 100 mg PO BID capsule 05/17/18 Ferrous Sulfate 325 mg PO DAILY@0800 #14 tablet 05/17/18 Iron Polysaccharide Complex [Ferrex 150] 150 mg PO DAILYCM #30 cap 05/17/18 Oxycodone HCl/Acetaminophen [Percocet 5/325] 1 tab PO 4X/DAY PRN PRN 7 Days #30 tab 05/17/18 proMETHazine tablet [Phenergan tablet] 25 mg PO Q4H PRN PRN tablet 05/17/18 The following prescriptions were given: Diazepam [Valium] 4 mg PO TID PRN PRN #30 tab PRN Reason: Spasms Ferrous Sulfate 325 mg PO DAILY@0800 #14 tablet Iron Polysaccharide Complex [Ferrex 150] 150 mg PO DAILYCM #30 cap Oxycodone HCl/Acetaminophen [Percocet 5/325] 1 tab PO 4X/DAY PRN PRN 7 Days #30 tab PRN Reason: Pain Amox/Clavulanate Tablet [Augmentin Tablet] 875 mg PO BID #28 tab Orders to be completed after discharge: CBC-Complete Blood Cnt No Diff Time Frame: 1 Week, Location: Laboratory Primary Care Physician: Chema Schmidt Chi, MD [Primary Care Provider] - Test Results: Test results from this visit will be discussed in further detail at your follow-up appointment, if applicable. Please Follow Up With: Regino Hansen MD When: 3 weeks at [facility]. call [phone] for appt. Please Follow Up With: Brant Santiago MD When: sunday05/22/18 at wound center. Proposed Discharge Date: 05/17/18 05/17/18 1710 <Electronically signed by Regino Hansen MD> Date Regino Hansen MD CC: Brant Santiago MD; Raúl Villareal DO; Chema Schmidt MD; [facility] HH, HEMOGLOBIN AND Collected: 05/17/2018 Status: F Source: [place] HEMATOCRIT 12:10 PM [facility] REPOSITORY TYPE CODE TESTS RESULT OUT OF RANGE REFERENCE UNITS LAB L100.1300 12.0-15.0 g/dl Low HGB 10.0 LAB L100.1400 37-47 % Low HCT 31.5 Performed By: #### L100.0600 #### [facility] [address] [place], [address] CBC-COMPLETE BLOOD CNT Collected: 05/17/2018 Status: F Source: [place] NO DIFF 5:25 AM [facility] REPOSITORY TYPE CODE TESTS RESULT OUT OF RANGE REFERENCE UNITS LAB L100.1000 4.4-11.0 K/mm3 High WBC 12.5 LAB L100.1200 4.2-5.4 M/mm3 Low RBC 3.98 LAB L100.1300 12.0-15.0 g/dl Low HGB 9.7 LAB L100.1400 37-47 % Low HCT 31.0 LAB L100.1500 81-99 fL Low MCV 77.9 LAB L100.1600 27.0-32.0 pg Low MCH 24.4 LAB L100.1700 32-36 g/gl Low MCHC 31.3 LAB L100.1810 11.6-14.6 % High RDW CV 21.3 LAB L100.1820 35.1-43.9 fl High RDW SD 60.9 LAB L100.1900 150-450 K/mm3 Normal PLT 299 LAB L100.2000 6.2-12.0 fl Normal MPV 9.2 Performed By: #### L100.0500, L100.4500 #### [facility] [address] [place], [address] DIFFERENTIAL COMMENT Collected: 05/17/2018 Status: F Source: [place] 5:25 AM [facility] REPOSITORY TYPE CODE TESTS RESULT OUT OF RANGE REFERENCE UNITS LAB L100.4500 Normal SMEAR COMMENT SCAN Result Comment: ANISOCYTOSIS 1+ MICROCYTOSIS 1+ HYPOCHROMIA 1+ POLYCHROMASIA 1+ Performed By: #### L100.0500, L100.4500 #### [facility] [address] [place], [address] CONSULTATION Observed: 05/16/2018 Status: F Source: [place] 3:03 PM [facility] REPOSITORY [facility] Medical Records Department [address] [facility] [address] Consultation 05/16/18 1451 MR#: [id number] Acct: [id number] Name: CHARISSA GUNTER Rep #: [id number] : 1950 67 From: Raúl Villareal DO PCP: Daniel MELISSA,Apixio Status: ADM IN Y Location: [facility] [id number] Problem List (1) Acute blood loss anemia Status: Acute Reason for Consult Date of Consultation: 05/16/18 Reason for Consultation: Consult requested by Dr. Hansen for anemia. History of Present Illness: The patient is a 67 year old F who underwent an excision of a stage IV sacral ulcer on 05/15. ESBL was about 1500cc. Post op hemoglobin was 7.2 and Hg on 04/30 was 10.3. She received 1 unit PRBCs then hg was 5.8 and has been written for 3 more units. Pt states that she did have self-remitting hematochezia about 2 months ago, but none since and no melena. No hematochezia. [] Past Medical History Past Medical History (Chronic Problems): Chronic Problems (Last Reviewed 04/19/18 @ 15:10 by Mitchell Henderson MD) Secondary pulmonary arterial hypertension (Chronic) Non-rheumatic tricuspid valve insufficiency (Chronic) Abnormal electrocardiogram (Chronic) Essential (primary) hypertension (Chronic) Non-healing surgical wound (Chronic) Pressure ulcer of right heel, stage 3 (Chronic) Pressure ulcer of left heel, stage 3 (Chronic) Morbid obesity with BMI of 40.0-44.9, adult (Chronic) GERD (gastroesophageal reflux disease) (Chronic) Depression (Chronic) Hypothyroidism (Chronic) Pressure ulcer of sacral region, stage 4 (Chronic) Neuropathy (Chronic) Medical History: Medical History (Last Reviewed 05/16/18 @ 14:58 by Raúl Villareal DO) Secondary pulmonary arterial hypertension (Chronic) I27.21 Non-rheumatic tricuspid valve insufficiency (Chronic) I36.1 Essential (primary) hypertension (Chronic) I10 Morbid obesity with BMI of 40.0-44.9, adult (Chronic) E66.01, Z68.41 GERD (gastroesophageal reflux disease) (Chronic) K21.9 Hypothyroidism (Chronic) E03.9 Atrial fibrillation with RVR (Resolved) I48.91 Abnormal Pap smear of cervix R87.619 Anemia D64.9 Back pain M54.9 GERD (gastroesophageal reflux disease) K21.9 Heart murmur R01.1 Sacral wound S31.000A Thyroid disorder E07.9 anixety and depression Hypertension I10 Allergies bee venom protein (honey bee) Allergy (Verified 04/19/18 13:56) Angioedema metaxalone [From Skelaxin] Allergy (Verified 04/19/18 13:56) Swelling Home Medications: Ambulatory Orders Medication Instructions Recorded Levothyroxine [Synthroid] 25 mcg PO DAILY 03/02/17 Surgical History: Surgical History (Last Reviewed 05/16/18 @ 14:58 by Raúl Villareal DO) H/O dilation and curettage Z98.890 History of LAVH Z98.890, Z90.710 S/P endometrial ablation Z98.890 S/P hysterectomy Z90.710 uterine ablation History of partial colectomy Z90.49 Surgical History: - - As previously undergone hysterectomy. She is a Ab0. Surgical debridement of her sacral pressure ulceration was performed on April 12, 2017, at [facility]. Smoking Status: Former smoker - *Family History Maternal Family History: Family History (Last Reviewed 05/16/18 @ 14:58 by Raúl Villareal DO) Father Myocardial infarction Cancer Brother Heart disease Mother COPD (chronic obstructive pulmonary disease) History Items: Unknown, - - Patient's mother at the age of 82 with a history of chronic obstructive pulmonary disease. Paternal Family History: Family History (Last Reviewed 05/16/18 @ 14:58 by Raúl Villareal DO) Father Myocardial infarction Cancer Brother Heart disease Mother COPD (chronic obstructive pulmonary disease) History Items: Unknown, - - Patient's father at age of 79 with history of lung cancer and myocardial infarction. Review of Systems Constitutional: Denies: Anorexia, Chills, Fever Eyes: Denies: Blurred vision, Double vision HEENT: Denies: Head Aches, Sinus Congestion, Sinus Drainage Cardiovascular: Denies: Chest Pain, Palpitations Respiratory: Denies: Cough, Shortness of breath at rest, Sputum production Gastrointestinal: Denies: Abdominal Pain, Nausea, Vomiting Genitourinary: Denies: Dysuria, Hematuria Musculoskeletal: Denies: Joint Pain, Joint Tenderness Skin: Denies: Dryness, Jaundice Neurological: Denies: Numbness, Tingling, Focal weakness Psychiatric: Denies: Anxiety, Depression Hematologic/ Lymphatic: Denies: Easy Bruising, Easy Bleeding, Hx of blood clot Comment: A 10 point review of systems were negative except as mentioned in the history of present illness and the other review of systems. Patient Problems: Active and Suspected Problems (Last Reviewed 04/19/18 @ 15:10 by Mitchell Henderson MD) Acute blood loss anemia (Acute) - Physical Exam General: Alert, Cooperative, No apparent distress, - - Lying on her right side. Wound VAC in place. HEENT: Atraumatic, Normocephalic Neck: No Nodes, Thyroid Normal Size and Texture Lungs: Clear to auscultation, Normal air movement, No rhonchi, No wheeze Cardiovascular: Regular rate, Regular Rhythm, Normal S1, Normal S2 Abdomen: Bowel Sounds Present, Soft, Non Tender, Non-Distended, No Hepato-splenomegaly Extremities: No edema, No Calf Tenderness Psych/Mental Status: Normal Affect, Appropriate Vital Signs Temp Pulse Resp BP Pulse Ox 36.9 C 84 16 117/60 96 05/16/18 13:38 05/16/18 13:38 05/16/18 13:38 05/16/18 13:38 05/16/18 13:38 Oxygen Delivery Method Room Air Weight: 92 kg Body Mass Index (BMI) 34.8 Intake and Output for Last 24 Hours Intake Total 600 / 600 1672 / 1672 2760 / 2760 Output Total 1475 / 1475 1500 / 1500 Balance 600 / 600 197 / 197 1260 / 1260 Microbiology Past 72 Hours 05/14/18 Unknown Gram Stain - Final Tissue - Sacral Wound Culture - Preliminary Laboratory Tests Past 24 Hrs WBC 13.3 H RBC 2.82 L Hgb 5.8 L* WBC RBC Assessment/Plan All Active Problems (Last Reviewed 04/19/18 @ 15:10 by Mitchell Henderson MD) Acute blood loss anemia (Acute) Preop cardiovascular exam (Acute) Colovaginal fistula (Acute) Failure to thrive (Acute) Clostridium difficile colitis (Acute) Septic shock (Resolved) VITO (acute kidney injury) (Resolved) Encephalopathy (Resolved) Atrial fibrillation with RVR (Resolved) Clostridium difficile infection (Resolved) Rhabdomyolysis (Resolved) 1. Acute blood loss anemia * Amount of blood loss does not seem to match up with the recorded blood count drops. 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 * Patient denies any history of ulcerative colitis no Crohn's. * May be some component of anemia of chronic disease due to her stage IV ulcer * Given the blood the patient is received iron studies would be of low yield at this point time but patient may benefit from further iron studies at a later point to see if she will require iron supplementation. 2. Stage IV sacral ulcer * Management per primary service * Wound VAC in place * On Unasyn * Patient on oxycodone as well as hydromorphone IV. If patient is not requiring hydromorphone would recommend discontinuing it. 3. DVT prophylaxis with SCDs. Chemical prophylaxis contraindicated in light of the acute blood loss anemia. Thank you for the consult. The hospital service will continue to follow along during the course of patient's hospitalization. Code Visit Inpatient E AND M: 07832 Init Hosp L2 05/16/18 1503 <Electronically signed by Raúl Villareal DO> Date Raúl Villareal DO Cosigner Signature (if applicable): Date CC: Raúl Villareal DO; Regino Hansen MD; Chema Schmidt MD Signed ABDOMEN/PELVIS WITHOUT Observed: 05/16/2018 Status: F Source: RIGOBERTO CONT 10:31 AM [facility] REPOSITORY [facility] Imaging Services [address] [place] [address] [place] [address] Abdomen/Pelvis without Cont MR#: [id number] Acct: [id number] Name: CHARISSA GUNTER Miriam Rep #: [id number] : 1950 F 67 From: Fidel Rojas MD PCP: Daniel MELISSA,Chema Gil Status: ADM IN Study: Abdomen/Pelvis without Cont Date of Exam: 05/16/18 Exam# [id number] Ordering Dr: Regino Hansen MD STUDY: CT ABDOMEN AND PELVIS WITHOUT CONTRAST REASON FOR EXAM: Female, 67 years old. Sacral wound. History of colovaginal fistula. RADIATION DOSAGE (If Supplied By Facility): CTDIvol = ( 17.97 ) mGy, DLP = ( 940.13 ) mGycm TECHNIQUE: Transaxial images were obtained from the dome of the diaphragm to the symphysis pubis without oral contrast, and without intravenous contrast. Sagittal and coronal images were reconstructed. Individualized dose optimization techniques were used for this CT. COMPARISON: Comparison is made with prior study dated August 09, 2017. FINDINGS: The visualized lung bases are unremarkable. Coronary artery calcification. Normal liver. Normal gallbladder and extrahepatic biliary system. Normal spleen. Normal pancreas. Normal bilateral adrenal glands. Punctate calcification in the lower pole calyx of the right kidney. 2 mm calculus in the lower pole calyx of the left kidney. There is a small hiatal hernia. Normal small intestine. Moderate amount of fecal material is seen in the rectosigmoid colon. Surgical anastomosis is seen in the sigmoid colon. The appendix is visualized and appears normal. There is diffuse atherosclerotic calcification of the abdominal aorta and the major visceral branches, without a demonstrated aneurysm. Normal inferior vena cava. There is borderline retroperitoneal lymphadenopathy with enlarged nodes no greater than 10mm in the short axis diameter. A Grewal catheter is seen within the bladder. The bladder is empty at the time of the examination. There is absence of the uterus consistent with a prior hysterectomy. There is evidence of a 2.8 cm x 7.2 cm tissue defect overlying the inferior aspect of the sacrum. No bony destruction is seen. The defect abuts the posterior lower sacrum. Normal abdominal wall. There are mild degenerative changes of the visualized lumbar spine. Marked degree of the osteoarthritis of both hip joints with subchondral cystic changes. CT/Abdomen/Pelvis without Cont IMPRESSION: Since prior study, the skin soft tissue defect overlying the distal portion of the sacrum as progressed. The defect abuts the sacral bone although there is no evidence of bony destruction at this time. The remainder the examination is unchanged. Electronically Signed: Fidel Rojas MD at 12:47 EST Tel [phone], Service support , CC: Regino Hansen MD; Chema Schmidt MD Contracts Administrator: Signed BASIC METABOLIC Collected: 05/16/2018 Status: F Source: RIGOBERTO PROFILE (BMP) 1:30 AM [facility] REPOSITORY TYPE CODE TESTS RESULT OUT OF RANGE REFERENCE UNITS LAB L501.0100 74-106 mg/dL Normal GLU 104 Result Comment: Fasting Glucose result from 100 to 125 mg/dL suggests IMPAIRED HOMEOSTASIS per A.D.A. criteria. Please note revised GLUCOSE reference range effective 2017. LAB L501.1000 7-18 mg/dL High BUN 24 LAB L501.1100 0.55-1.02 mg/dL Normal CREAT,SERUM 0.62 Result Comment: The validity of the calculated GFR AND GFRAA in patients over 70 years has not been determined. Clinical correlation is essential. LAB L501.1110 >60 mL/min Normal EST GFR 102 Result Comment: Non- GFR Calc LAB L501.1115 >60 mL/min Normal EST GFR - AA 124 Result Comment: GFR Calc LAB L501.1255 ml/min Normal Estimated CRCL 47.79 LAB L501.1300 10-20 RATIO High BUN/CRE 38.8 LAB L501.2200 8.5-10 mg/dL Low .1 CA 8.2 LAB L501.5300 136-14 mmol/L Normal 5 NA 143 LAB L501.5600 3.5-5. mmol/L Normal 1 K 3.7 LAB L501.5900 98-107 mmol/L High CL 111 LAB L501.6100 21.0-3 mmol/L Normal 2.0 CO2 27.0 LAB L501.6200 5-15 Normal GAP 5 Performed By: #### L500.2500 #### [facility] [address] [place], [address] CBC-COMPLETE BLOOD CNT Collected: 05/16/2018 Status: C Source: [place] NO DIFF 1:30 AM [facility] REPOSITORY TYPE CODE TESTS RESULT OUT OF RANGE REFERENCE UNITS LAB L100.1000 4.4-11.0 K/mm3 High WBC 13.3 LAB L100.1200 4.2-5.4 M/mm3 Low RBC 2.82 LAB L100.1300 12.0-15.0 g/dl Low alert HGB 5.8 Result Comment: CRITICAL VALUE VERIFIED. CALLED TO KBIRD 05/16/18 0242 Shreya Coppola. RESULTS READ BACK BY SAME . LAB L100.1400 37-47 % Low 19.9 HCT LAB L100.1500 81-99 fL Low 70.6 MCV LAB L100.1600 27.0-32.0 pg Low 20.6 MCH LAB L100.1700 32-36 g/gl Low 29.1 MCHC LAB L100.1810 11.6-14.6 % High 19.6 RDW CV LAB L100.1820 35.1-43.9 fl High 50.4 RDW SD LAB L100.1900 150-450 K/mm3 Normal 316 PLT LAB L100.2000 6.2-12.0 fl Normal 8.4 MPV LAB L100.9900 Normal PATH Reviewed REV Result Comment: Neutrophilic leukocytosis. Microcytic anemia. Clinical correlation necessary. Matthew Toscano M.D. 05/17/18 AMENDED REPORT 05/17/18 1022 PATH REV previously reported as: October Performed By: #### L100.0500, L100.4500 #### [facility] [address] [place], [place], [address] DIFFERENTIAL COMMENT Collected: 05/16/2018 Status: F Source: [place] 1:30 AM [facility] REPOSITORY TYPE CODE TESTS RESULT OUT OF RANGE REFERENCE UNITS LAB L100.4500 Normal SMEAR COMMENT SCANNED Result Comment: HYPOCHROMASIA 1+ POLYCHROMASIA 1+ RARE TARGET CELLS Performed By: #### L100.0500, L100.4500 #### [facility] [address] [place], [place], [address] TYPE AND SCREEN Collected: 05/16/2018 Status: F Source: [place] 1:30 AM [facility] REPOSITORY Order Comment: CMV NEG? N Number of units to transfuse: 2 Comments: excision sacral pressure sore Is there a >20% drop in pt's BP? N Is the pt's CVP (central venous pressure) <3 cm/H2O? N Is the EBL >/= 1000ml in adults or >/= 12ml/kg in children? N Is there an orthostatic change in pt's BP(SBP drop >10mmHg)? N Is pt's HR > 100 bpm? N Reason for Ordering Blood: Acute Are the blood/blood products to be transfused? Y Is the patient having/had surgery? Y CRITICAL VALUE VERIFIED. CALLED TO BLAZE MS3 05/16/18 0310 Shreya Coppola. RESULTS READ BACK BY SAME . Give When? When Ready Irradiated? N Leukodepleted? Y Surgery Date: 05/14/18 Type of Surgery: OTHER TYPE CODE TESTS RESULT OUT OF RANGE REFERENCE UNITS LAB B10.0800 A Normal BLOOD TYPE GEL POSITIVE LAB B100.4000 Normal Antibody NEGATIVE Screen Performed By: #### B101.7450 #### [facility] [address] [place], [address] RC Collected: 05/16/2018 Status: F Source: RIGOBERTO 1:30 AM [facility] REPOSITORY TYPE CODE TESTS RESULT OUT OF REFERENCE UNITS RANGE LAB U100.0000 [id number] TRANSFUSED PRODUCT: T AND S with Crossmatch, Red Cells COUNT: 2 Performed By: #### U100.0000 #### [facility] - refer to report for specific site RC Collected: 05/16/2018 Status: F Source: RIGOBERTO 1:30 AM [facility] REPOSITORY TYPE CODE TESTS RESULT OUT OF REFERENCE UNITS RANGE LAB U100.0000 [id number] TRANSFUSED PRODUCT: T AND S with Crossmatch, Red Cells COUNT: 2 Performed By: #### U100.0000 #### [facility] - refer to report for specific site HISTORY AND PHYSICAL Observed: 05/15/2018 Status: F Source: RIGOBERTO EXAM 11:51 PM [facility] REPOSITORY [facility] Medical Records Department [address] [place] [address] History and Physical 05/14/18 0000 MR#: [id number] Acct: [id number] Name: CHARISSA GUNTER Rep #: [id number] : 1950 67 From: Regino Hansen MD PCP: Daniel MELISSA,Chema Gil Status: ADM IN [id number] History and Physical Date of Admission: 05/14/18 HISTORY OF PRESENT ILLNESS 67 year old woman presents for further evaluation of her sacral pressure sore. I initially saw her in August. A CT was done which showed no evidence of osteomyelitis, but did show evidence of a colovaginal fistula. The fistula was surgically repaired in December at [facility]. She had a sacral wound culture done on 01/02/18 and it showed Staphylococcus aureus. She was treated with antibiotics. She was recently [facility] from a [facility]. I was asked to evaluate her sacral pressure sore for surgical options for treatment. PAST MEDICAL HISTORY Depression. GERD. Colovaginal fistula. Hypertension. Hypothyroidism. Neuropathy. PAST SURGICAL HISTORY Hysterectomy. Excision of sacral pressure sore - 04/20 Repair of colovaginal fistula - 12/19 MEDICATIONS Vitamin C. Aspirin. Vitamin D3. Synthroid. Omeprazole. K-dur. ALLERGIES Bee venom. Skelaxin. FAMILY HISTORY Positive for COPD, Lung cancer, Myocardial infarction. SOCIAL HISTORY Patient is a former smoker. Patient does not drink alcohol. REVIEW OF SYSTEMS General - Denies fever, fatigue, and weight loss. Eyes - Denies cataracts and glaucoma. ENT - Denies nasal congestion and sore throat. Endocrine - Denies excessive thirst and urination. Skin - Denies suspicious lesions and skin cancer. Has sacral pressure sore. Musculoskeletal - Denies joint pain, joint stiffness, weakness of muscles and joints, back pain, and arthritis. Neuro - Denies headaches. Cardiovascular - Denies chest pain, fatigue, and shortness of breath with exertion. Psych - Denies anxiety. Has depression. Respiratory - Denies chronic cough and shortness of breath. Gastrointestinal - Denies nausea, vomiting, diarrhea, and constipation. had repair colovaginal fistula. Hematologic - Denies abnormal bruising and bleeding. Genitourinary - Denies hematuria and urinary frequency. PHYSICAL EXAMINATION General - Alert and Oriented HEENT - PERRL. EOMI. Throat is clear. Neck - Supple and nontender. No cervical adenopathy. Lungs - Clear to auscultation. Heart - Regular rate and rhythm. Abdomen - Soft and nondistended. Extremities - FROM. No axillary adenopathy. Radial pulses are palpable. Back - On the sacral area is a pressure sore that extends to the bone. The bone is palpable but not exposed. It is a Stage IV. Measures 1.5 x 3.5 x 1.5 cm. There is some superior undermining measuring about 1.5 cm. Some granulation tissue is seen. Some abnormal scar tissue seen. No fluctuance or purulent drainage noted. Neuro - CN II-XII grossly intact. Psych - Normal mood and affect. ASSESSMENT 1. Sacral pressure sore, Stage IV. 2. s/p repair colovaginal fistula. PLAN Continue Fibracol dressing changes to the sacrum. Her sacral pressure sore is stable but has some undermining. There is abnormal scar tissue present that will not heal without operative debridement of the pressure sore. If it extends down to the bone than a partial ostectomy for osteomyelitis will be done. Postop will begin wound care with the VAC. Depending on how well healing occurs, she may need additional surgery with a fasciocutaneous or muscle flap for closure. Because she is ambulatory, her ulcer may heal with aggressive wound care, taking care of any infection, and maximizing nutrition. Will check a Prealbumin at the time of surgery. Surgery will be done under general anesthesia with a surgical observation overnight stay at the hospital. The following day the VAC will be applied. Tissue will be sent to Pathology and Microbiology. A positive culture will necessitate antibiotic therapy. Patient was informed of the risks and complications of the procedure including alternatives to surgery. These were discussed with her personally. She voices understanding and wishes to proceed. She understands the pressure sore will be made bigger in order to make the wound care easier with the VAC. With the amount of undermining, it is harder to heal because it is hard to pack the edges consistently because they are not visualized. 05/15/18 2861 <Electronically signed by Regino Hansen MD> Date Regino Hansen MD Cosigner Signature: Date (if applicable) CC: Brant Santiago MD; Regino Hansen MD; Chema Schmidt MD; [facility] Signed CBC-COMPLETE BLOOD CNT Collected: 05/15/2018 Status: F Source: RIGOBERTO NO DIFF 5:28 AM [facility] REPOSITORY TYPE CODE TESTS RESULT OUT OF RANGE REFERENCE UNITS LAB L100.1000 4.4-11.0 K/mm3 High WBC 21.0 LAB L100.1200 4.2-5.4 M/mm3 Low RBC 3.44 LAB L100.1300 12.0-15.0 g/dl Low HGB 7.2 LAB L100.1400 37-47 % Low HCT 24.6 LAB L100.1500 81-99 fL Low MCV 71.5 LAB L100.1600 27.0-32.0 pg Low MCH 20.9 LAB L100.1700 32-36 g/gl Low MCHC 29.3 LAB L100.1810 11.6-14.6 % High RDW CV 19.7 LAB L100.1820 35.1-43.9 fl High RDW SD 50.0 LAB L100.1900 150-450 K/mm3 Normal PLT 418 LAB L100.2000 6.2-12.0 fl Normal MPV 9.4 Performed By: #### L100.0500, L100.4500 #### [facility] [address] [place], [address] DIFFERENTIAL COMMENT Collected: 05/15/2018 Status: F Source: RIGOBERTO 5:28 AM [facility] REPOSITORY TYPE CODE TESTS RESULT OUT OF RANGE REFERENCE UNITS LAB L100.4500 Normal SMEAR COMMENT SCAN Result Comment: HYPHOCHROMIA 1+ MICROCYTOSIS 1+ POLYCHROMASIA 1+ ANISOCYTOSIS 1+ Performed By: #### L100.0500, L100.4500 #### [facility] [address] [place], [address] BASIC METABOLIC Collected: 05/15/2018 Status: F Source: RIGOBERTO PROFILE (BMP) 5:28 AM [facility] REPOSITORY TYPE CODE TESTS RESULT OUT OF RANGE REFERENCE UNITS LAB L501.0100 74-106 mg/dL Normal GLU 105 Result Comment: Fasting Glucose result from 100 to 125 mg/dL suggests IMPAIRED HOMEOSTASIS per A.D.A. criteria. Please note revised GLUCOSE reference range effective 2017. LAB L501.1000 7-18 mg/dL High BUN 28 LAB L501.1100 0.55-1.02 mg/dL Normal CREAT,SERUM 0.90 Result Comment: The validity of the calculated GFR AND GFRAA in patients over 70 years has not been determined. Clinical correlation is essential. LAB L501.1110 >60 mL/min Normal EST GFR 66 Result Comment: Non- GFR Calc LAB L501.1115 >60 mL/min Normal EST GFR - AA 80 Result Comment: GFR Calc LAB L501.1255 ml/min Normal Estimated CRCL 53.10 LAB L501.1300 10-20 RATIO High BUN/CRE 30.9 LAB L501.2200 8.5-10 mg/dL Normal .1 CA 8.5 LAB L501.5300 136-14 mmol/L Normal 5 NA 141 LAB L501.5600 3.5-5. mmol/L Normal 1 K 4.0 LAB L501.5900 98-107 mmol/L Normal CL 107 LAB L501.6100 21.0-3 mmol/L Normal 2.0 CO2 23.0 LAB L501.6200 5-15 Normal GAP 11 Performed By: #### L500.2500, L506.0500 #### [facility] [address] [place], [address] PREALBUMIN Collected: 05/15/2018 Status: F Source: [place] 5:28 AM [facility] REPOSITORY TYPE CODE TESTS RESULT OUT OF REFERENCE UNITS RANGE LAB L506.0500 20.0-40.0 mg/dL Low PREALBUMIN 19.3 Performed By: #### L500.2500, L506.0500 #### [facility] [address] [place], [address] PRESSURE SORE Observed: 05/14/2018 Status: F Source: [place] 1:25 PM [facility] REPOSITORY Patient: CHARISSA GUNTER : 1950 (67/F) Acct Num: [id number] Phys: Raúl Villareal DO Unit Num: [id number] Loc: MS3 [id number] Specimen: [id number] Received: 05/15/18 - 1102 Spec Type: PRESS SORE TISSUES 1 TISSUES: A. Ischium, NOS - BONE B. Ischium, NOS - TISSUE GROSS DESCRIPTION A - Received in fixative is one container labeled with the patient's name and designated sacral pressure sore bone. The specimen consists of multiple pieces of bone that in aggregate measure 5 x 3 x 0.3 cm. The entire specimen is submitted in two cassettes after decalcification. B - Received in fixative is one container labeled with the patient's name and designated sacral pressure sore tissue. The specimen consists of a piece of skin with underlying tissue measuring 6 x 3 cm and up to 5 cm in depth. Extensive area of ulceration is noted. No mass lesion is identified. Coating Machine Helper sections are submitted in three cassettes. / SJ:andrew 05/15/18 TC :2 CPT: 39957 x2, 11320 HEADER OPERATION: Excision sacral pressure sore, partial ostectomy PRE-OP DIAGNOSIS: Sacral pressure sore stage IV TISSUE SUBMITTED: A - Sacral pressure sore bone, B - Sacral pressure sore tissue MICROSCOPIC DESCRIPTION Slides are reviewed. MICROSCOPIC DIAGNOSIS A. Sacral pressure bone, biopsy: Consistent with chronic change. Focal changes suspicious for acute osteomyelitis. B. Skin and soft tissue of sacral ulcer, biopsy: Ulceration with associated acute and chronic inflammation and granulation. AM:andrew 05/20/18 Signed Mello Bianca, 05/21/18 <signature on file> Performed By: #### PPRES #### [facility] [address] [place], [address] Observed: 05/14/2018 Status: F Source: [place] CULTURE, DEEP WOUND 12:00 AM [facility] REPOSITORY Order Date: 01/03/17 Comments: Sacral Pressure Sore Tissue, Collected in OR Gram Stain Gram Stain 3+ Red Blood Cells Rare White Blood Cells No organisms seen Wound Culture #1 There are no CLSI standards for interpretation of this Drug/Organism combination. ORGANISM 1: Corynebacterium minutissimum Amount Growth Rare ORGANISM 2: Staphylococcus epidermidis Amount Growth Very Rare Staphylococcus epidermidis: REACTION Benzylpenicillin NF 0.25 R Cefoxitin *NF - Clindamycin $$ <=0.25 S Inducable Clindamycin Resistan - Erythromycin $ >=8 R Gentamicin $ <=0.5 S Levofloxacin $ <=0.12 S Linezolid $$$$ 1 S Oxacillin NF <=0.25 S Tigecycline $$$$ <=0.12 S Rifampin $$ <=0.5 S Tetracycline NF <=1 S Vancomycin $ 1 S (NF) indicates non-formulary drug at [facility]. Approval by Infectious Disease Specialist required before non-formulary drugs may be ordered and/or dispensed. * CLSI guidelines does not recommend testing of cephalosporins. This interpretation is deduced from Beta-lactam/penicillin results. Cult, Anaerobic No growth in 5 days. Performed By: #### M100.1500 #### [facility] [address] [place], [address] Observed: 05/14/2018 Status: F Source: RIGOBERTO CULTURE, DEEP WOUND 12:00 AM [facility] REPOSITORY Order Date: 01/03/17 Comments: Sacral Pressure Sore Bone, Collected in OR Gram Stain Gram Stain 3+ Red Blood Cells 1+ White Blood Cells No organisms seen Wound Culture There are no CLSI standards for interpretation of this Drug/Organism combination. ORGANISM 1: Corynebacterium minutissimum Amount Growth Very Rare Cult, Anaerobic No growth in 5 days. Performed By: #### M100.1500 #### [facility] [address] [place], [address] HIP, UNI W/ PELVIS Observed: 04/30/2018 Status: F Source: RIGOBERTO 2-3 VIEWS 2:29 PM [facility] REPOSITORY [facility] Imaging Services [address] [place] [address] HIP, UNI W/ Pelvis 2-3 Views MR#: [id number] Acct: [id number] Name: CHARISSA GUNTER Rep #: [id number] : 1950 F 67 From: Vicki Kinsey MD PCP: Chema Schmidt MD, Chi Status: REG CLI Study: HIP, UNI W/ Pelvis 2-3 Views Date of Exam: 04/30/18 Exam# [id number] Ordering Dr: Chema Schmidt MD STUDY: X-RAY - LEFT HIP REASON FOR EXAM: Female, 67 years old. Left hip pain increasing, no known injury. TECHNIQUE: 2 views of the hip. COMPARISON: 08/09/2017 CT abdomen and pelvis axial images FINDINGS: There is sclerosis with flattening of the left greater than right femoral head, acetabular spurring, bone on bone joint space and productive osseous changes left greater than right. There is severe articular joint space narrowing. Normal visualized superior and inferior pubic rami and ischial tuberosities. RAD/HIP, UNI W/ Pelvis 2-3 Views IMPRESSION: Severe bilateral degenerative hip disease, suspect avascular necrosis which can be seen with advanced osteoarthritis. There is no significant interval change since previous CT. Electronically Signed: Vicki Kinsey MD at 5:08 EST , Service support , CC: Chema Schmidt MD Contracts Administrator: Signed VITAMIN D,25 HYDROXY Collected: 04/30/2018 Status: F Source: [place] 1:34 PM [facility] REPOSITORY Order Comment: DR SCHMIDT ORDERED VITD CBCD CMP TSH DR BERGER ORDERED PT PTT DR ULLOA ORDERED CBC TSH TYPE CODE TESTS RESULT OUT OF REFERENCE UNITS RANGE LAB L506.1000 29.95-100.01 ng/mL Low Vitamin D 23.0 25-OH Result Comment: Vitamin D 25(OH) Status Range Deficiency <20 ng/mL (50nmol/L) Insuffciency 20 - 30 ng/mL (50 - 75 nmol/L) Sufficiency 30 - 100 ng/mL (75 - 250 nmol/L) Toxicity >100 ng/mL (>250 nmol/L) Performed By: #### L506.1000 #### [facility] [place], [address] COMPREHENSIVE METABOLIC Collected: 04/30/2018 Status: F Source: [place] PROFIL 1:34 PM [facility] REPOSITORY Order Comment: DR SCHMIDT ORDERED VITD CBCD CMP TSH DR BERGER ORDERED PT PTT DR ULLOA ORDERED CBC TSHReason for Laboratory Test PRE OP TYPE CODE TESTS RESULT OUT OF RANGE REFERENCE UNITS LAB L501.0100 74-106 mg/dL Normal GLU 80 Result Comment: Please note revised GLUCOSE reference range effective 2017. LAB L501.1000 7-18 mg/dL High BUN 22 LAB L501.1100 0.55-1.02 mg/dL Normal CREAT,SERUM 0.75 Result Comment: The validity of the calculated GFR AND GFRAA in patients over 70 years has not been determined. Clinical correlation is essential. LAB L501.1110 >60 mL/min Normal EST GFR 82 Result Comment: Non- GFR Calc LAB L501.1115 >60 mL/min Normal EST GFR - AA 99 Result Comment: GFR Calc LAB L501.1300 10-20 RATIO High BUN/CRE 29.3 LAB L501.1500 6.4-8.2 g/dL High T PROT 8.3 LAB L501.1800 3.2-5.0 g/dL Normal ALB 3.7 LAB L501.1950 2.2-4.2 g/dL High GLOB 4.6 LAB L501.2000 0.9-2.4 RATIO Low A/G 0.8 LAB L501.2200 8.5-10.1 mg/dL CA Normal 9.2 LAB L501.4100 15-37 U/L Normal AST 17 LAB L501.4305 45-117 U/L Normal ALK P 66 LAB L501.4405 13-56 U/L Normal ALT 23 LAB L501.4600 0.20-1.00 mg/dL T Normal BILI 0.30 LAB L501.5300 136-145 mmol/L NA Normal 141 LAB L501.5600 3.5-5.1 mmol/L K Normal 4.6 LAB L501.5900 98-107 mmol/L CL Normal 106 LAB L501.6100 21.0-32.0 mmol/L Normal CO2 24.0 LAB L501.6200 5-15 Normal GAP 11 Performed By: #### L500.4050, L501.9520 #### [facility] [address] [place], [place], [id number] THYROID STIM HORMONE Collected: 04/30/2018 Status: F Source: RIGOBERTO (TSH) 1:34 PM [facility] REPOSITORY Order Comment: DR SCHMIDT ORDERED VITD CBCD CMP TSH DR BERGER ORDERED PT PTT DR ULLOA ORDERED CBC TSHReason for Laboratory Test PRE OP TYPE CODE TESTS RESULT OUT OF RANGE REFERENCE UNITS LAB L501.9520 0.358-3.74 uIU/mL Normal TSH 1.73 Performed By: #### L500.4050, L501.9520 #### [facility] [address] [place], [place], [id number] CBC W/DIFF, AUTOMATED Collected: 04/30/2018 Status: F Source: RIGOBERTO 1:34 PM [facility] REPOSITORY Order Comment: Reason for Laboratory Test PRE OP DR SCHMIDT ORDERED VITD CBCD CMP TSH DR BERGER ORDERED PT PTT DR ULLOA ORDERED CBC TSH TYPE CODE TESTS RESULT OUT OF RANGE REFERENCE UNITS LAB L100.1000 4.4-11.0 K/mm3 Normal WBC 10.5 LAB L100.1200 4.2-5.4 M/mm3 Normal RBC 4.96 LAB L100.1300 12.0-15.0 g/dl Low HGB 10.3 LAB L100.1400 37-47 % Low HCT 34.8 LAB L100.1500 81-99 fL Low MCV 70.2 LAB L100.1600 27.0-32.0 pg Low MCH 20.8 LAB L100.1700 32-36 g/gl Low MCHC 29.6 LAB L100.1810 11.6-14.6 % High RDW CV 20.6 LAB L100.1820 35.1-43.9 fl High RDW SD 51.0 LAB L100.1900 150-450 K/mm3 High PLT 518 LAB L100.2000 6.2-12.0 fl Normal MPV 9.7 LAB L100.2100 47-70 % Normal NEUT% 60.1 LAB L100.2200 19-41 % Normal LY% 24.1 LAB L100.2300 0-10 % High MONO% 13.8 LAB L100.2400 0-5 % Normal EO% 1.3 LAB L100.2500 0-1 % Normal BASO% 0.5 LAB L100.2550 0.0-0.9 % Normal IM GRAN % 0.200 Result Comment: IG% - Immature Granulocytes (promyelocytes, myelocytes and metamyelocytes) > 1% indicates that a LEFT SHIFT is Present. LAB L100.2620 2.0-7.7 X10 3/uL Absolute Neut Normal 6.3 LAB L100.2720 0.83-4.51 X10 3/ul Absolute Lymph Normal 2.54 LAB L100.4500 SMEAR COMMENT Normal SCANNED LAB L100.5500 ADEQ PLT EST Normal SLT INC LAB L100.7300 ANISO Normal 3+ LAB L100.7600 HYPOCHROMASIA Normal 2+ LAB L100.7700 MICROCYTES Normal 1+ Performed By: #### L100.0100 #### [facility] [address] [place], [address] PROTHROMBIN TIME W/INR Collected: 04/30/2018 Status: F Source: [place] 1:34 PM [facility] REPOSITORY Order Comment: DR SCHMIDT ORDERED VITD CBCD CMP TSH DR BERGER ORDERED PT PTT DR ULLOA ORDERED CBC TSH TYPE CODE TESTS RESULT OUT OF RANGE REFERENCE UNITS LAB L300.4150 11.7-14.9 SECONDS Normal PROTIME 12.9 LAB L300.4200 Normal INR 1.0 Performed By: #### L300.3900, L300.4310 #### [facility] [address] [place], [address] PARTIAL THROMBOPLAST Collected: 04/30/2018 Status: F Source: [place] TIME 1:34 PM [facility] REPOSITORY Order Comment: DR SCHMIDT ORDERED VITD CBCD CMP TSH DR BERGER ORDERED PT PTT DR ULLOA ORDERED CBC TSH TYPE CODE TESTS RESULT OUT OF RANGE REFERENCE UNITS LAB L300.4310 24.1-36.2 Seconds Normal PTT 35.3 Performed By: #### L300.3900, L300.4310 #### [facility] [address] [place], [address] ECHOCARDIOGRAM COMPLETE Observed: 04/22/2018 Status: F Source: [place] 5:32 PM [facility] REPOSITORY [facility] Cardiovascular Services [address] [place] [address] Echo Complete 04/22/18 1352 MR#: [id number] Acct: [id number] Name: CHARISSA GUNTER Rep #: [id number] : 1950 67 From: Mitchell Henderson MD Attending Dr: Mitchell Henderson MD Status: REG CLI Ordering Dr: Mitchell Henderson MD Date: 04/22/18 Location: [facility] Sex: F C Admitted: Reason For Study: Murmur Procedure This was a 2D Doppler, Color Flow transthoracic echocardiogram. Exam performed in department. Left Ventricle Normal LV size. Moderate concentric left ventricular hypertrophy. Left ventricular systolic function is normal. The estimated ejection fraction is 65 %. Stage 1 diastolic dysfunction. No regional wall motion abnormalities noted. Right Ventricle Normal RV size. Normal systolic function. Atria Normal left atrium. Normal right atrium. Mitral Valve Moderate focal mitral valve calcification, bileaflet. Tricuspid Valve Normal tricuspid valve. Mild (1+) tricuspid valve insufficiency. Pulmonary artery systolic pressure is 27 mmHg. Aortic Valve Trisinus/trileaflet aortic valve. Mild focal aortic valve calcification. Mean aortic valve gradient 34 mmHg. Peak aortic valve gradient 64.9 mmHg. Calculated aortic valve area (continuity equation) is 0.99 cm2. Moderately severe . Pulmonic Valve Normal pulmonic valve. Great Vessels Normal aortic root. The pulmonary artery is normal size. Normal inferior vena cava. Pericardium/Pleural No pericardial effusion. MMode/2D Measurements AND Calculations LVIDd: 3.6 cm IVSd: 1.6 cm LVOT diam: 2.0 cm LVIDs: 2.3 cm LVPWd: 1.4 cm LVOT area: 3.1 cm2 RVDd: 3.3 cm FS: 37.4 % Ao root diam: 3.3 cm LAV(MOD-bp): 49.4 ml LA A4 area: 16.8 cm2 LA dimension: 3.1 cm LAV(MOD-bp) Indexed: 25.3 ml/m2 LAV(MOD-sp2): 54.9 ml LAV(MOD-sp4): 45.3 ml RA A4 area: 14.4 cm2 Time Measurements MV dec time: 0.25 sec Doppler Measurements AND Calculations MV E max danelle: 94.9 cm/sec Lat Peak E' Danelle: 10.4 cm/sec Med Peak E' Danelle: 6.6 cm/sec MV A max danelle: 123.5 cm/sec E/E' lat: 9.1 E/E' med: 14.4 MV E/A: 0.77 MV V2 max: 139.6 cm/sec MV P1/2t max danelle: 114.6 cm/sec Ao V2 max: 402.8 cm/sec MV max P.8 mmHg MV P1/2t: 67.2 msec Ao max P.9 mmHg MV V2 mean: 76.1 cm/sec MV dec slope: 499.2 cm/sec2 Ao V2 mean: 269.8 cm/sec MV mean P.7 mmHg Ao mean P.1 mmHg MV V2 VTI: 36.4 cm MVA(P1/2t): 3.3 cm2 Ao V2 VTI: 91.8 cm MVA(VTI): 2.2 cm2 MONICA(I,D): 0.89 cm2 MONICA(V,D): 0.99 cm2 LV V1 max: 130.2 cm/sec SV(LVOT): 81.4 ml PA V2 max: 96.3 cm/sec LV V1 max P.8 mmHg LV V1 mean P.2 mmHg LV V1 mean: 81.0 cm/sec LV V1 VTI: 26.5 cm TR max danelle: 239.4 cm/sec TR max P.9 mmHg Interpretation Summary Normal LV size. Moderate concentric left ventricular hypertrophy. Left ventricular systolic function is normal. The estimated ejection fraction is 65 %. Stage 1 diastolic dysfunction. Moderate focal mitral valve calcification, bileaflet. Mild (1+) tricuspid valve insufficiency. Mean aortic valve gradient 34 mmHg. Calculated aortic valve area (continuity equation) is 0.99 cm2. Moderately severe The AV is worse in comparison to previous Compared to prior study, changes are noted. Ordering Physician: Mitchell Henderson Referring Physician: Chema Schmidt Chi Performed By: Shlomo Daniel RCS 04/22/18 173 Date Mitchell Henderson MD CC: Mitchell Henderson MD; Chema Schmidt MD Date Dictated: 04/22/18 1352 Date Transcribed: 04/22/18 173 Contracts Administrator: Signed HISTORY AND PHYSICAL Observed: 04/20/2018 Status: F Source: RIGOBERTO EXAM 6:57 PM [facility] REPOSITORY [facility] Medical Records Department [address] [place] [address] History and Physical 04/15/18 2408 MR#: [id number] Acct: [id number] Name: CHARISSA GUNTER Rep #: [id number] : 1950 67 From: Regino Hansen MD PCP: Daniel MELISSA,Chema Gil Status: PRE [facility] [place] Location[place] [facility] History and Physical Date of Admission: 04/16/18 HISTORY OF PRESENT ILLNESS 67 year old woman presents for further evaluation of her sacral pressure sore. I initially saw her in August. A CT was done which showed no evidence of osteomyelitis, but did show evidence of a colovaginal fistula. The fistula was surgically repaired in December at [facility]. She had a sacral wound culture done on 01/02/18 and it showed Staphylococcus aureus. She was treated with antibiotics. She was recently discharged from a detention. I was asked to evaluate her sacral pressure sore for surgical options for treatment. PAST MEDICAL HISTORY Depression. GERD. Colovaginal fistula. Hypertension. Hypothyroidism. Neuropathy. PAST SURGICAL HISTORY Hysterectomy. Excision of sacral pressure sore - 04/20 Repair of colovaginal fistula - 12/19 MEDICATIONS Vitamin C. Aspirin. Vitamin D3. Synthroid. Omeprazole. K-dur. ALLERGIES Bee venom. Skelaxin. FAMILY HISTORY Positive for COPD, Lung cancer, Myocardial infarction. SOCIAL HISTORY Patient is a former smoker. Patient does not drink alcohol. REVIEW OF SYSTEMS General - Denies fever, fatigue, and weight loss. Eyes - Denies cataracts and glaucoma. ENT - Denies nasal congestion and sore throat. Endocrine - Denies excessive thirst and urination. Skin - Denies suspicious lesions and skin cancer. Has sacral pressure sore. Musculoskeletal - Denies joint pain, joint stiffness, weakness of muscles and joints, back pain, and arthritis. Neuro - Denies headaches. Cardiovascular - Denies chest pain, fatigue, and shortness of breath with exertion. Psych - Denies anxiety. Has depression. Respiratory - Denies chronic cough and shortness of breath. Gastrointestinal - Denies nausea, vomiting, diarrhea, and constipation. had repair colovaginal fistula. Hematologic - Denies abnormal bruising and bleeding. Genitourinary - Denies hematuria and urinary frequency. PHYSICAL EXAMINATION General - Alert and Oriented HEENT - PERRL. EOMI. Throat is clear. Neck - Supple and nontender. No cervical adenopathy. Lungs - Clear to auscultation. Heart - Regular rate and rhythm. Abdomen - Soft and nondistended. Extremities - FROM. No axillary adenopathy. Radial pulses are palpable. Back - On the sacral area is a pressure sore that extends to the bone. The bone is palpable but not exposed. It is a Stage IV. Measures 1.5 x 3.5 x 1.5 cm. There is some superior undermining measuring about 1.5 cm. Some granulation tissue is seen. Some abnormal scar tissue seen. No fluctuance or purulent drainage noted. Neuro - CN II-XII grossly intact. Psych - Normal mood and affect. ASSESSMENT 1. Sacral pressure sore, Stage IV. 2. s/p repair colovaginal fistula. PLAN Continue Fibracol dressing changes to the sacrum. Her sacral pressure sore is stable but has some undermining. There is abnormal scar tissue present that will not heal without operative debridement of the pressure sore. If it extends down to the bone than a partial ostectomy for osteomyelitis will be done. Postop will begin wound care with the VAC. Depending on how well healing occurs, she may need additional surgery with a fasciocutaneous or muscle flap for closure. Because she is ambulatory, her ulcer may heal with aggressive wound care, taking care of any infection, and maximizing nutrition. Will check a Prealbumin at the time of surgery. Surgery will be done under general anesthesia with a surgical observation overnight stay at the hospital. The following day the VAC will be applied. Tissue will be sent to Pathology and Microbiology. A positive culture will necessitate antibiotic therapy. Patient was informed of the risks and complications of the procedure including alternatives to surgery. These were discussed with her personally. She voices understanding and wishes to proceed. She understands the pressure sore will be made bigger in order to make the wound care easier with the VAC. With the amount of undermining, it is harder to heal because it is hard to pack the edges consistently because they are not visualized. 04/20/181856 <Electronically signed by Regino Hansen MD> Date Regino Hansen MD Cosigner Signature: Date (if applicable) CC: Brant Santiago MD; Regino Hansen MD; Chema Schmidt MD; [facility] Signed CARDIOLOGY VISIT Observed: 04/19/2018 Status: F Source: RIGOBERTO REPORT 3:14 PM [facility] REPOSITORY [facility] [address] [place] [address] OFFICE VISIT Date of Service: 04/19/18 MR#: [id number] Acct: [id number] Name: CHARISSA GUNTER Rep #: [id number] : 1950 Provider: Mitchell Henderson MD Age/Sex: 67/F Location[place] [facility] [place] Status: Signed HPI HPI Chief Complaint: Follow up visit and preop evaluation Details: CHARISSA GUNTER, is a 67 F who presents to the office today for a follow-up as well as preoperative visit. She was last seen by me over a year ago at that time she was noted to have sinus bradycardia with some relative chronotropic incompetence when she had a sepsis syndrome. She tells me that she is scheduled to have debridement of a sacral ulcer. She has not had any neck arm or jaw discomfort suggest angina no dizziness or diaphoresis no near syncope or syncope she has not had any palpitations. Her most recent electrocardiogram on file from April 16 demonstrates sinus rhythm with a rate of 90 bpm no acute changes were noted. Her physical exam today demonstrates clear lung srinivasan regular rate and rhythm a 2/6 systolic murmur noted left sternal border and no pedal edema. Intake Vital Signs04/19/18 Height 5 ft 4 in Intake Visit Reasons: Ref'd by wound ctr/Dr Hansen for abn EKG Allergies bee venom protein (honey bee) Allergy (Verified 04/19/18 13:56) Angioedema metaxalone [From Skelaxin] Allergy (Verified 04/19/18 13:56) Swelling Medications Levothyroxine [Synthroid] 25 mcg PO DAILY 03/02/17 [History Confirmed 04/19/18] cholecalciferol (vitamin D3) 50,000 unit capsule 50,000 unit PO QMONTH 08/02/17 [History Confirmed 04/19/18] Ascorbic Acid 500 mg PO DAILY 08/21/17 [History Confirmed 04/19/18] Potassium Chloride [K-Dur] 40 meq PO DAILY 12/26/17 [History Confirmed 04/19/18] Aspirin E.C. [Ecotrin] 81 mg PO DAILY 04/11/18 [History Confirmed 04/19/18] Omeprazole 40 mg PO 1800 04/11/18 [History Confirmed 04/19/18] green tea leaf extract capsule cap PO cap 04/19/18 [History Confirmed 04/19/18] omega-3 fatty acids 1,000 mg capsule 1,000 mg PO DAILY 04/19/18 [History Confirmed 04/19/18] PFSH Medical History Secondary pulmonary arterial hypertension (Chronic) Non-rheumatic tricuspid valve insufficiency (Chronic) Essential (primary) hypertension (Chronic) Morbid obesity with BMI of 40.0-44.9, adult (Chronic) GERD (gastroesophageal reflux disease) (Chronic) Hypothyroidism (Chronic) Atrial fibrillation with RVR (Resolved) Abnormal Pap smear of cervix (Acute) Anemia (Acute) Back pain (Acute) GERD (gastroesophageal reflux disease) (Acute) Heart murmur (Acute) Sacral wound (Acute) Thyroid disorder (Acute) anixety and depression (Acute) Hypertension (Chronic) Surgical History History of partial colectomy (Resolved) H/O dilation and curettage (Acute) History of LAVH (Acute) S/P endometrial ablation (Acute) S/P hysterectomy (Acute) uterine ablation (Acute) Family History Father Myocardial infarction age 79 Cancer lung Brother Heart disease Mother COPD (chronic obstructive pulmonary disease) Social History Smoking Status: Former smoker alcohol intake: never substance use type: does not use caffeine: Yes what type of physical activity do you participate in: walking seatbelt use: always do you feel safe at home: Yes additional social history: - Retired ROS Const Const: Negative for fatigue, weakness, difficulty sleeping, frequent falls, excessive sweating or headache(s) Eyes Eyes: Positive for change in vision (left eye broken bload vessel causing distortion); negative for loss of peripheral vision, transient loss of vision, blurry vision, tunnel vision or double vision ENT ENT: Negative for headache(s), dizziness, Nosebleed/epistaxis or balance problems Cardio Chest Pain: No Palpitations: No Edema: None Muscle aches with walking: None Resp Respiratory: Negative for SOB with activity, SOB at rest, SOB orthopnea\SOB lying down, paroxysmal nocturnal dyspnea or Cough GI GI: Negative nausea, heartburn, black,tarry stools or vomiting : Negative for hematuria Musc Musc: Negative for balance problems, muscle aches/ myalgia, muscle weakness or joint pain Skin Skin: Positive for skin ulcer and wounds (Sacral area needing surgery); negative non-healing lesions, unusual bruising or rash Neuro Neuro: Positive for other (Ambulating with walker); negative for weakness, frequent falls, headache(s), blurry vision, double vision, dizziness, lightheadedness, orthostatic symptoms, near syncope, syncope or lack of coordination Gianfranco Hematologic/Lymphatic: Negative for easy bruising or easy bleeding Endo Endo: Negative for fatigue, excessive sweating or increased thirst/drinking Psych Psych: Negative for anxiety or depression Allergy Allergy/Immunology: Negative for hives, Negative for rash Cardiology Exam Const Appearance: cooperative, healthy appearing, well developed, well groomed and no acute distress Nutritional Appearance: well nourished and average body habitus Orientation: alert, awake and oriented x3 Head Head: normal to inspection, normocephalic and atraumatic Ears: hearing grossly normal bilaterally and external ears normal Nose: external nose normal, nasal mucous membranes and turbinates normal, nares normal, septum normal, no nasal discharge Face and Sinus: face symmetric Mouth: oral mucosae normal, tongue normal, oropharynx normal and moist mucous membranes Teeth and gingiva: dentition normal Throat: posterior oropharynx normal, tonsils normal and uvula midline Eyes General: appearance normal, both eyes and all related structures Eyelids: eyelids normal Conjunctivae: conjunctivae normal Pupils: PERRL, normal by confrontation and accommodation normal EOM: EOM intact bilaterally Neck Neck: normal visual inspection, trachea midline and no JVD JVD: +5 Carotids: normal carotid upstroke and bounding pulses Chest Chest inspection: normal inspection of the chest, symmetric chest movement and normal respiratory effort Auscultation: Bilateral: Clear to Auscultation Cardio Palpation: normal PMI Rate: regular rate Rhythm: regular rhythm Heart sounds: S1 normal and S2 normal Murmur: Grade 2/6, loud, early systolic and LLSB GI GI: normal to inspection, soft, no hepatosplenomegaly and bowel sounds present Neuro General: alert, awake, oriented x3, no focal sensory deficit, gait normal and moves all extremities Skin Skin: no rashes or lesions noted Extremities Pulses: Normal: Right Femoral Pulse, Left Femoral Pulse, Right Dorsalis Pedis Pulse, Left Dorsalis Pedis Pulse, Right Posterior Tibial Pulse, Left Posterior Tibial Pulse, Right Radial Pulse, Left Radial Pulse Lower Extremity Edema: None: Bilateral Musculoskel Musculoskeletal: No joint tenderness Psych Psychological: normal affect Assessment AND Plan 1. Preop cardiovascular exam Z01.810 Plan Her preoperative cardiovascular exam does not appear to demonstrate any significant abnormalities other than a heart murmur which is likely secondary to aortic sclerosis, and tricuspid regurgitation. At this time I do not see any contraindications to the patient undergoing the debridement surgery. I would recommend that we repeat her echocardiogram to assess her left ventricular function and characterize her valve disease further. 2. Aortic valve disease I35.9 Plan She does have evidence of aortic valve disease as well as mild pulmonary hypertension. I would recommend that we repeat her echocardiogram to assess her left ventricular function and characterize her aortic valve surgery. Unless there is significant stenosis or valve gradient my recommendation will be to proceed with her surgical issues. Thank you for allowing me to participate in the care of your patient. Please don't hesitate to call if any issues arise Plan Detail Other Orders Orders: Follow Up 1 Year (mmm) Coding Level of Care Code Off vis,est,level 4 Diagnoses Preop cardiovascular exam Z01.810 Aortic valve disease I35.9 Coding Level of Care Code Off vis,est,level 4 Diagnoses Preop cardiovascular exam Z01.810 Aortic valve disease I35.9 04/19/18 1514 <Electronically signed by Mitchell Henderson MD> Date Mitchell Henderson MD Cosigner Signature: Date (if applicable) CC: Regino Hansen MD; Chema Schmidt MD 12 LEAD ELECTROCARDIOGRAM Observed: 04/15/2018 Status: F Source: RIGOBERTO 2:34 PM [facility] REPOSITORY [facility] Cardi[place] [address] 12 Lead EKG 04/11/18 1322 MR#: [id number] Acct: [id number] Name: CHARISSA GUNTER Rep #: [id number] : 1950 67 From: Micheal Coffey MD Attending Dr: Regino Hansen MD Status: PRE SDC Ordering Dr: Regino Hansen MD Date: 04/11/18 [place] [facility] [place] Sex: F C Admitted: Test Reason : PREOP Blood Pressure : / mmHG Vent. Rate : 090 BPM Atrial Rate : 090 BPM P-R Int : 150 ms QRS Dur : 070 ms QT Int : 360 ms P-R-T Axes : 078 -17 062 degrees QTc Int : 440 ms Normal sinus rhythm Possible Left atrial enlargement Borderline ECG Confirmed by MICHEAL COFFEY ([id number]), department editor SARAH PANDA ([id number]) on 04/15/2018 2:33:28 PM Referred By: Regino Hansen Confirmed By:MICHEAL COFFEY 04/15/18 1433 Date Micheal Coffey MD CC: Regino Hansen MD; Chema Schmidt MD Signed CBC-COMPLETE BLOOD CNT Collected: 04/11/2018 Status: F Source: RIGOBERTO NO DIFF 12:59 PM [facility] REPOSITORY TYPE CODE TESTS RESULT OUT OF RANGE REFERENCE UNITS LAB L100.1000 4.4-11.0 K/mm3 High WBC 12.0 LAB L100.1200 4.2-5.4 M/mm3 Normal RBC 5.07 LAB L100.1300 12.0-15.0 g/dl Low HGB 10.4 LAB L100.1400 37-47 % Low HCT 35.4 LAB L100.1500 81-99 fL Low MCV 69.8 LAB L100.1600 27.0-32.0 pg Low MCH 20.5 LAB L100.1700 32-36 g/gl Low MCHC 29.4 LAB L100.1810 11.6-14.6 % High RDW CV 19.7 LAB L100.1820 35.1-43.9 fl High RDW SD 49.1 LAB L100.1900 150-450 K/mm3 High PLT 542 LAB L100.2000 6.2-12.0 fl Normal MPV 9.2 Performed By: #### L100.0500, L100.4500 #### [facility] [address] [place], [address] DIFFERENTIAL COMMENT Collected: 04/11/2018 Status: F Source: RIGOBERTO 12:59 PM [facility] REPOSITORY TYPE CODE TESTS RESULT OUT OF RANGE REFERENCE UNITS LAB L100.4500 Normal SMEAR COMMENT SCANNED Result Comment: 1+ HYPOCHROMIA 1+ MICROCYTES Performed By: #### L100.0500, L100.4500 #### [facility] [address] [place], [place], [address] THYROID STIM HORMONE Collected: 04/11/2018 Status: F Source: RIGOBERTO (TSH) 12:59 PM [facility] REPOSITORY TYPE CODE TESTS RESULT OUT OF RANGE REFERENCE UNITS LAB L501.9520 0.358-3.74 uIU/mL Normal TSH 1.69 Performed By: #### L501.9520 #### [facility] [address] [place], [address] Observed: 03/06/2018 Status: F Source: RIGOBERTO CULTURE, DEEP WOUND 9:35 AM [facility] REPOSITORY Gram Stain Gram Stain 1+ Red Blood Cells Rare White Blood Cells No organisms seen Wound Culture ORGANISM 1: Staphylococcus aureus Amount Growth 3+ Staphylococcus aureus: REACTION Benzylpenicillin NF >=0.5 R Cefoxitin *NF - Clindamycin $$ <=0.25 S Inducable Clindamycin Resistan - Erythromycin $ <=0.25 S Gentamicin $ <=0.5 S Levofloxacin $ <=0.12 S Linezolid $$$$ 2 S Moxifloxicin *NF <=0.25 S Oxacillin NF 0.5 S Tigecycline $$$$ <=0.12 S Rifampin $$ <=0.5 S Tetracycline NF <=1 S Trimethoprim/Sulfametho $ <=10 S Vancomycin $ 1 S (NF) indicates non-formulary drug at [facility]. Approval by Infectious Disease Specialist required before non-formulary drugs may be ordered and/or dispensed. * CLSI guidelines does not recommend testing of cephalosporins. This interpretation is deduced from Beta-lactam/penicillin results. Cult, Anaerobic No anaerobic bacteria isolated. Performed By: #### M100.1500 #### [facility] [address] [place], [place], [id number] Observed: 01/02/2018 Status: F Source: APPALACHIA CULTURE, DEEP WOUND 12:25 PM [facility] REPOSITORY Comments: SACRAL ULCER Gram Stain Gram Stain 3+ Red Blood Cells 1+ White Blood Cells 1+ Gram positive cocci Wound Culture ORGANISM 1: Staphylococcus aureus Amount Growth 1+ Staphylococcus aureus: REACTION Benzylpenicillin NF >=0.5 R Cefoxitin *NF - Clindamycin $$ <=0.25 S Inducable Clindamycin Resistan - Erythromycin $ <=0.25 S Gentamicin $ <=0.5 S Levofloxacin $ <=0.12 S Linezolid $$$$ 2 S Moxifloxicin *NF <=0.25 S Oxacillin NF 0.5 S Tigecycline $$$$ <=0.12 S Rifampin $$ <=0.5 S Tetracycline NF <=1 S Trimethoprim/Sulfametho $ <=10 S Vancomycin $ <=0.5 S (NF) indicates non-formulary drug at [facility]. Approval by Infectious Disease Specialist required before non-formulary drugs may be ordered and/or dispensed. * CLSI guidelines does not recommend testing of cephalosporins. This interpretation is deduced from Beta-lactam/penicillin results. Cult, Anaerobic No anaerobic bacteria isolated. Performed By: #### M100.1500 #### [facility] [address] [place], [place], [id number] WOUND CTR HISTORY Observed: 12/31/2017 Status: F Source: [facility]OBERTO AND PHYSICAL 4:20 PM [facility]OSPITAL REPOSITORY [facility] [address] [place] [address] Wound Ctr History AND Physical 12/26/17 1938 MR#: [id number] Acct: [id number] Name: CHARISSA GUNTER Rep #: [id number] : 1950 67 From: Brant Santiago MD PCP: Daniel MELISSA,Chema Gil Status: REG RCR Y Location: (1) Non-healing surgical wound Status: Acute Current Visit: Yes Code(s): T81.89XA - Other complications of procedures, not elsewhere classified, initial encounter (2) Colovaginal fistula Status: Acute Current Visit: No Code(s): N82.4 - Other female intestinal-genital tract fistulae (3) Pressure ulcer of sacral region, stage 4 Status: Chronic Current Visit: No Code(s): L89.154 - Pressure ulcer of sacral region, stage 4 History of Present Illness Date of Service: 12/26/17 Chief Complaint: Stage IV sacral pressure ulceration; bilateral unstageable necrotic heel pressure ulcerations History of Wound: Ms. Gunter is a 67-year-old female who is well known to me in the wound center and was last seen here over. Most recently has been managed at the [facility] for a colovaginal fistula. Surgery was in 10 December. Status post surgery she had been in a detention. She has had routine dressings to her sacral decubitus ulcer and had a wound VAC to her abdominal surgical ulcer. She denies any new complaints at this time. Past Medical History Past Medical History: Chronic Problems (Last Updated 08/09/17 @ 08:06 by Liz Baker) Pressure ulcer of right heel, stage 3 (Chronic) Pressure ulcer of left heel, stage 3 (Chronic) GERD (gastroesophageal reflux disease) (Chronic) Depression (Chronic) Hypothyroidism (Chronic) Pressure ulcer, heel, right, unstageable (Chronic) Pressure ulcer, heel, left, unstageable (Chronic) Pressure ulcer of sacral region, stage 4 (Chronic) Neuropathy (Chronic) Hypertension (Chronic) GERD (gastroesophageal reflux disease) (Chronic) Morbid obesity with BMI of 40.0-44.9, adult (Chronic) Surgical History: - - As previously undergone hysterectomy. She is a Ab0. Surgical debridement of her sacral pressure ulceration was performed on April 12, 2017, at [facility]. Allergies/Adverse Reactions: Allergies bee venom protein (honey bee) Allergy (Verified 08/09/17 08:07) Angioedema Home Medications: Ambulatory Orders Medication Instructions Recorded Levothyroxine [Synthroid] 25 mcg PO DAILY 03/02/17 Ensure Enlive 120 ml PO 4X/DAY 03/16/17 cholecalciferol (vitamin D3) 50,000 unit PO QMONTH 08/02/17 - Family History Maternal Family History: Family History (Last Reviewed 08/09/17 @ 07:40 by Liz Baker) Father Myocardial infarction Cancer Brother Heart disease Mother COPD (chronic obstructive pulmonary disease) Unknown, - - Patient's mother at the age of 82 with a history of chronic obstructive pulmonary disease. Paternal Family History: Family History (Last Reviewed 08/09/17 @ 07:40 by Liz Baker) Father Myocardial infarction Cancer Brother Heart disease Mother COPD (chronic obstructive pulmonary disease) Unknown, - - Patient's father at age of 79 with history of lung cancer and myocardial infarction. Smoking Status: Former smoker Tobacco Use: Non-smoker Review of Systems Constitutional: Denies: Anorexia, Malaise Eyes: Denies: Blurred vision, Pain, Redness HEENT: Denies: Difficulty Swallowing Cardiovascular: Denies: Chest Pain, Chest Tightness Respiratory: Denies: Cough, Shortness of Breath Gastrointestinal: Denies: Hematemesis, Vomiting Genitourinary: Denies: Hematuria Skin: Denies: Jaundice - Physical Exam Vital Signs Temp Pulse Resp BP 98.6 F 90 18 115/68 12/26/17 11:41 12/26/17 11:41 12/26/17 11:41 12/26/17 11:41 General: Alert, Oriented x3, Cooperative, No apparent distress HEENT: Atraumatic Oral: Moist Mucosa Neck: Supple Lungs: Normal air movement Cardiovascular: Regular rate, Regular Rhythm, Normal S1, Normal S2 Abdomen: Soft, Obese Skin: Ulcer/ Wound Wound Measurements and Assessment WC - Nurse 1 - General Ulcer Measurement Start: 12/26/17 11:35 Freq: Status: Active Protocol: Activity Type Activity Date Activity User E-Sign Co-Sign Detail Recorded Client Recorded Date Recorded By Document 12/26/17 11:41 RB [id number] 12/26/17 12:08 RB Wound Center Nurse 1 [Ulcer Assessment] #6 lower mid abd -Combined with other wound No 12/26/17 12:06 Wound Center by Miriam Rawls 3 sites from laproscopic surgery is well approximated Initialized on 12/26/17 12:06 - END OF NOTE - Nurse 2 - General Ulcer CM Notes Start: 12/26/17 11:35 Freq: Status: Active Protocol: Activity Type Activity Date Activity User E-Sign Co-Sign Detail Recorded Client Recorded Date Recorded By Document 12/26/17 12:34 [id number] 12/26/17 12:43 CS Wound Center Nurse 2 Musculoskeletal: No Muscle Wasting Neurological: Cranial nerves II-XII grossly intact Psych/Mental Status: Normal Affect Debridement Note Post-Debridement Measurements/Treatment WC - Nurse 2 - General Ulcer CM Notes Start: 12/26/17 11:35 Freq: Status: Active Protocol: Activity Type Activity Date Activity User E-Sign Co-Sign Detail Recorded Client Recorded Date Recorded By Document 12/26/17 12:34 [id number] 12/26/17 12:43 CS Wound Center Nurse 2 #6 lower mid abd -Time 12:34 -Correct Patient Yes -Correct Side, Site, Position Yes Wound debrided: Lower abdominal wound Type of Debridement: Excisional debridement Anesthesia Used: 4% Lidocaine Solution Depth: Down to and including healthy tissue, in the subcutaneous layer Percentage of wound debrided: 100 Instrument Used: 7mm curette Tissue Removed: Slough and devitalized tissue Severity: Fat Layer Exposed Amount of bleeding with debridement: Mild Bleeding Controlled with: Pressure Patient tolerated procedure well - Additional Wound Wound debrided: Sacral Ulcer Wound Grade/Stage: Stage IV Type of Debridement: Excisional debridement Anesthesia Used: 4% Lidocaine Solution Depth: Down to and including healthy tissue, in the subcutaneous layer Percentage of wound debrided: 100 Instrument Used: 5mm curette Tissue Removed: Slough and devitalized tissue Severity: Fat Layer Exposed Amount of bleeding with debridement: Mild Bleeding Controlled with: Pressure Patient tolerated procedure: Patient tolerated procedure well Assessment/Plan Active Problems (Last Updated 08/09/17 @ 08:06 by Liz Baker) Non-healing surgical wound (Acute) Assessment: Stage IV sacral decubitus ulcer. Right heel stage III pressure ulcer. - Healed. Left heel stage III pressure ulcer - Healed. Post surgical abdominal wound Plan: Debridement done as documented above. Procedure was well-tolerated. Continue Fibracol to sacral ulcer with Optiform over top. Change daily to every other day. Continue wound VAC to postsurgical abdominal wound at 125 mmHg. Continue increased protein intake. Follow-up in 1 week. Advised to call with any questions or concerns. This note was generated with [employer] dictation software. It may contain incorrect words, spelling, and punctuation that were not noted in checking the note before signing. 12/31/17 1620 <Electronically signed by Brant Santiago MD> Date Brant Santiago MD CC: Signed WOUND CTR HISTORY Observed: 12/31/2017 Status: F Source: [facility]OBERTO AND PHYSICAL 1:45 AM [facility] REPOSITORY [facility] Wound Healing Center [address] [facility] [place] [address] Wound Ctr History AND Physical 08/06/17 2230 MR#: [id number] Acct: [id number] Name: CHARISSA GUNTER Rep #: [id number] : 1950 67 From: Regino Hansen MD PCP: Chema Schmidt MD, Chi Status: DIS RCR Y Location: History of Present Illness Date of Service: 08/06/17 - WOUND CENTER CONSULT REFERRING PHYSICIAN: Dr. Santiago. LAND SURVEYOR ASSISTANT: Dr. Hansen. Chief Complaint: Stage IV sacral pressure ulceration; bilateral unstageable necrotic heel pressure ulcerations History of Wound: Ms. Gunter is a 67-year-old female who has been seen here about a month ago and managed as a case of bilateral stage III pressure ulcers and stage IV sacral ulcer. Due to insurance issues she has not been seen here in over a month and was seen at another wound center however she returns here today for continued care. 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 She had intraoperative surgical debridement of her sacral wound and has since had a wound VAC. Wound has shown significant progress since initial episode. She currently has a wound VAC to her sacral wound and has been applying collagen to the bilateral heels. She denies chills, fever or otherwise feeling of unwell. Past Medical History Past Medical History: Chronic Problems (Last Updated 08/09/17 @ 08:06 by Liz Baker) Pressure ulcer of right heel, stage 3 (Chronic) Pressure ulcer of left heel, stage 3 (Chronic) GERD (gastroesophageal reflux disease) (Chronic) Depression (Chronic) Hypothyroidism (Chronic) Pressure ulcer, heel, right, unstageable (Chronic) Pressure ulcer, heel, left, unstageable (Chronic) Pressure ulcer of sacral region, stage 4 (Chronic) Neuropathy (Chronic) Hypertension (Chronic) GERD (gastroesophageal reflux disease) (Chronic) Morbid obesity with BMI of 40.0-44.9, adult (Chronic) Surgical History: - - As previously undergone hysterectomy. She is a Ab0. Surgical debridement of her sacral pressure ulceration was performed on April 12, 2017, at [facility]. Allergies/Adverse Reactions: Allergies bee venom protein (honey bee) Allergy (Verified 08/09/17 08:07) Angioedema Home Medications: Ambulatory Orders Medication Instructions Recorded Levothyroxine [Synthroid] 25 mcg PO DAILY 03/02/17 Ensure Enlive 120 ml PO 4X/DAY 03/16/17 cholecalciferol (vitamin D3) 50,000 unit PO QMONTH 08/02/17 - Family History Maternal Family History: Family History (Last Reviewed 08/09/17 @ 07:40 by Liz Baker) Father Myocardial infarction Cancer Brother Heart disease Mother COPD (chronic obstructive pulmonary disease) Unknown, - - Patient's mother at the age of 82 with a history of chronic obstructive pulmonary disease. Paternal Family History: Family History (Last Reviewed 08/09/17 @ 07:40 by Liz Baker) Father Myocardial infarction Cancer Brother Heart disease Mother COPD (chronic obstructive pulmonary disease) Unknown, - - Patient's father at age of 79 with history of lung cancer and myocardial infarction. Lives: Alone Smoking Status: Former smoker Tobacco Use: Non-smoker Alcohol: None Drugs: None Review of Systems Constitutional: Denies: Chills, Fever Eyes: Denies: Cataracts, Pain HEENT: Denies: Nasal Congestion, Sore Throat Cardiovascular: Denies: Chest Pain Respiratory: Denies: Cough, Shortness of Breath Gastrointestinal: Denies: Abdominal Pain, Constipation, Diarrhea, Nausea, Vomiting Musculoskeletal: Denies: Arm Pain, Back Pain, Leg Pain, Neck Pain Skin: Reports: Wounds - has sacral pressure sore. Neurological: Denies: Headaches Psychiatric: Denies: Anxiety, Depression Endocrine: Denies: Heat/ Cold Intolerance, Polydipsia, Polyuria Hematologic/ Lymphatic: Denies: Easy Bruising, Easy Bleeding - Physical Exam PHYSICAL EXAM General - Alert and Oriented HEENT - PERRL. EOMI. Throat is clear. Neck - Supple and nontender. No cervical adenopathy. Lungs - Clear to auscultation. Heart - Regular rate and rhythm. Abdomen - Soft and nondistended. Extremities - FROM. No axillary adenopathy. Radial pulses are palpable. Skin - Has a sacral pressure sore, Stage IV. Neuro - CN II-XII grossly intact. Psych - Normal mood and affect. Vital Signs Temp Pulse Resp BP 99.5 F H 94 16 136/76 H 08/06/17 11:28 08/06/17 11:28 08/06/17 11:28 08/06/17 11:28 Wound Measurements and Assessment WC - Nurse 1 - General Ulcer Measurement Start: 08/02/17 11:31 Freq: Status: Active Protocol: Activity Type Activity Date Activity User E-Sign Co-Sign Detail Recorded Client Recorded Date Recorded By Document 08/06/17 11:28 [facility] [id number] 08/06/17 11:43 [facility] Wound Center Nurse 1 [Ulcer Assessment] #3 sacrum -Combined with other wound No - Nurse 2 - General Ulcer CM Notes Start: 08/02/17 11:31 Freq: Status: Active Protocol: Activity Type Activity Date Activity User E-Sign Co-Sign Detail Recorded Client Recorded Date Recorded By Document 08/06/17 12:06 [id number] 08/06/17 12:22 Wound Center Nurse 2 [Procedure/Treatment] -Correct Patient No Debridement Note Post-Debridement Measurements/Treatment - Nurse 2 - General Ulcer CM Notes Start: 08/02/17 11:31 Freq: Status: Active Protocol: Activity Type Activity Date Activity User E-Sign Co-Sign Detail Wound Center Nurse 2 #3 sacrum -Time 12:21 -Correct Patient Yes No -Correct Side, Site, Position Yes No Wound debrided: #3 Sacrum. Laterality: Not Applicable Wound Grade/Stage: IV. No debridement was completed today - This pressure sore needs to be excised in the operating room after she is evaluated for a fistula. Assessment/Plan Assessment: Stage IV sacral decubitus ulcer. Right heel stage III pressure ulcer. - Healed. Left heel stage III pressure ulcer - Healed. Plan: Both heel ulcers are now healed. Sacral ulcer still with hypergranulation predominantly in the middle. She reports complaince with her wound Vac now at a pressure of 125mmHg. She denies increased pain or discharge from the site. No other signs suggestive of infection. Circunferential undermining still present. Will culture wound and order a CT scan per consult recommendation. Scheduled to follow up with Dr. Hansen on 08/20. Continue wound vac to sacral ulcer. Continue offloading of lower extremities ( heels ). Continue increased protein in diet and protein supplements. Follow-up in 1 week. This note was generated with [employer] software. It may contain incorrect words, spelling, and punctuation that were not noted in checking the note before signing. 12/31/17 0145 <Electronically signed by Regino Hansen MD> Date Regino Hansen MD CC: Signed HEMOGRAM (CBC AND Collected: 12/14/2017 Status: F Source: [facility]) 1:45 AM [facility] REPOSITORY TYPE CODE TESTS RESULT OUT OF REFERENCE UNITS RANGE LAB WBC 3.98-10.04 K/uL WBC Count High 12.26 LAB RBC 3.93-5.22 M/uL Low RBC Count 3.77 LAB HGB 11.2-15.7 g/dL Low Hemoglobin 7.8 LAB HCT 34.1-44.9 % Low Hematocrit 25.8 LAB MCV 79.4-94.8 fL Low Mean Cell Volume 68.4 LAB MCH 25.6-32.2 pg Low Mean Cell Hgb 20.7 LAB MCHC 32.2-35.5 g/dL Low Mean Cell Hgb alert Conc 30.2 LAB RDW 11.7-14.4 % RBC High Distribution 20.8 LAB PLT 182-369 K/uL Platelet Count High 400 LAB MPV 9.4-12.3 fL Mean Platelet Volume 9.5 LAB NRBC 0.0-0.2 /100 WBC NUCLEATED RBC 0.0 Performed By: #### HEMOGC, CA, CHM7, IPB, MGO #### [facility] [address] [place] [id number] [place] [address] [place] [id number] CALCIUM Collected: 12/14/2017 Status: F Source: [facility] 1:45 AM [facility] REPOSITORY TYPE CODE TESTS RESULT OUT OF REFERENCE UNITS RANGE LAB CA 8.6-10.5 mg/dL Calcium 9.2 Performed By: #### HEMOGC, CA, CHM7, IPB, MGO #### [facility] [address] [place] [id number] [place] [address] [place] [id number] CHEM 7 Collected: 12/14/2017 Status: F Source: [facility] 1:45 [facility] REPOSITORY TYPE CODE TESTS RESULT OUT OF REFERENCE UNITS RANGE LAB BUN 7-22 mg/dL BUN 15 LAB NA 133-143 mmol/L Sodium 142 LAB K 3.5-5.0 mmol/L Potassium 3.6 LAB CL 98-108 mmol/L Chloride High 109 LAB CO2 22-30 mmol/L Carbon Dioxide 24 LAB GLUC 70-99 mg/dL Glucose 98 LAB CREA 0.50-1.20 mg/dL Creatinine 0.69 LAB GAP 7-17 mmol/L Anion Gap 13 LAB BC BUN/CREA Ratio 22 LAB [facility] 278-305 mOsm/kg Osmolality 296 (Calc) LAB GFR >60 mL/min/1.73 sqM Est GFR,non >60 Irish LAB GFRA >60 mL/min/1.73 sqM Est GFR, >60 Performed By: #### HEMOGC, CA, CHM7, IPB, MGO #### [facility] [address] [place] [address] [place] [address] INORGANIC PHOSPHATE Collected: 12/14/2017 Status: F Source: [facility] 1:45 [facility] REPOSITORY TYPE CODE TESTS RESULT OUT OF REFERENCE UNITS RANGE LAB IP 2.2-4.6 mg/dL Inorg Phosphate 3.9 Performed By: #### HEMOGC, CA, CHM7, IPB, MGO #### [facility] [address] [place] [id number] [facility] [address] [place] [phone] MAGNESIUM Collected: 12/14/2017 Status: F Source: [facility] 1:45 AM [facility] REPOSITORY TYPE CODE TESTS RESULT OUT OF REFERENCE UNITS RANGE LAB MG 1.6-2.6 mg/dL Magnesium 1.8 Performed By: #### HEMOGC, CA, CHM7, IPB, MGO #### [facility] [address] [place] [id number] [facility] [address] [place] [id number] HEMOGRAM (CBC AND Collected: 12/13/2017 Status: F Source: [facility]) 3:27 AM [facility] REPOSITORY TYPE CODE TESTS RESULT OUT OF REFERENCE UNITS RANGE LAB WBC 3.98-10.04 K/uL WBC Count High 11.71 LAB RBC 3.93-5.22 M/uL Low RBC Count 3.49 LAB HGB 11.2-15.7 g/dL Low Hemoglobin 7.3 LAB HCT 34.1-44.9 % Low Hematocrit 24.3 LAB MCV 79.4-94.8 fL Low Mean Cell Volume 69.6 LAB MCH 25.6-32.2 pg Low Mean Cell Hgb 20.9 LAB MCHC 32.2-35.5 g/dL Low Mean Cell Hgb alert Conc 30.0 LAB RDW 11.7-14.4 % RBC High Distribution 20.7 LAB PLT 182-369 K/uL Platelet Count 320 LAB MPV 9.4-12.3 fL Mean Platelet Volume 9.7 LAB NRBC 0.0-0.2 /100 WBC NUCLEATED RBC 0.0 Performed By: #### HEMOGC, CA, CHM7, IPB, MGO #### [facility] [address] [place], [place] [id number] [facility] [address] [place] [id number] CALCIUM Collected: 12/13/2017 Status: F Source: [facility] 3:27 AM [facility] REPOSITORY TYPE CODE TESTS RESULT OUT OF REFERENCE UNITS RANGE LAB CA 8.6-10.5 mg/dL Calcium 8.8 Performed By: #### HEMOGC, CA, CHM7, IPB, MGO #### [facility] [address] [place] [id number] [place] [address] [address] [id number] CHEM 7 Collected: 12/13/2017 Status: F Source: [facility] 3:27 [facility] REPOSITORY TYPE CODE TESTS RESULT OUT OF REFERENCE UNITS RANGE LAB BUN 7-22 mg/dL BUN 11 LAB NA 133-143 mmol/L Sodium 141 LAB K 3.5-5.0 mmol/L Potassium 3.7 LAB CL 98-108 mmol/L Chloride High 109 LAB CO2 22-30 mmol/L Carbon Dioxide 24 LAB GLUC 70-99 mg/dL Glucose 86 LAB CREA 0.50-1.20 mg/dL Creatinine 0.63 LAB GAP 7-17 mmol/L Anion Gap 12 LAB BC BUN/CREA Ratio 17 LAB [facility] 278-305 mOsm/kg Osmolality 293 (Calc) LAB GFR >60 mL/min/1.73 sqM Est GFR,non >60 Irish LAB GFRA >60 mL/min/1.73 sqM Est GFR, >60 Performed By: #### HEMOGC, CA, CHM7, IPB, MGO #### [facility] [address] [phone] INORGANIC PHOSPHATE Collected: 12/13/2017 Status: F Source: [facility] 3:27 [facility] REPOSITORY TYPE CODE TESTS RESULT OUT OF REFERENCE UNITS RANGE LAB IP 2.2-4.6 mg/dL Inorg Phosphate 3.3 Performed By: #### HEMOGC, CA, CHM7, IPB, MGO #### [facility] [address] [place] [address] [address] [phone] MAGNESIUM Collected: 12/13/2017 Status: F Source: [facility] 3:27 [facility] REPOSITORY TYPE CODE TESTS RESULT OUT OF REFERENCE UNITS RANGE LAB MG 1.6-2.6 mg/dL Magnesium 1.9 Performed By: #### HEMOGC, CA, CHM7, IPB, MGO #### [facility] [address] [place] [id number] [facility] [address] [place] [id number] HEMOGRAM (CBC AND Collected: 12/12/2017 Status: F Source: [facility]) 1:53 AM [facility] REPOSITORY TYPE CODE TESTS RESULT OUT OF REFERENCE UNITS RANGE LAB WBC 3.98-10.04 K/uL WBC Count High 11.79 LAB RBC 3.93-5.22 M/uL Low RBC Count 3.44 LAB HGB 11.2-15.7 g/dL Low Hemoglobin 7.2 LAB HCT 34.1-44.9 % Low Hematocrit 24.4 LAB MCV 79.4-94.8 fL Low Mean Cell Volume 70.9 LAB MCH 25.6-32.2 pg Low Mean Cell Hgb 20.9 LAB MCHC 32.2-35.5 g/dL Low Mean Cell Hgb alert Conc 29.5 LAB RDW 11.7-14.4 % RBC High Distribution 20.8 LAB PLT 182-369 K/uL Platelet Count 303 LAB MPV 9.4-12.3 fL Mean Platelet Volume 9.7 LAB NRBC 0.0-0.2 /100 WBC NUCLEATED RBC 0.0 Performed By: #### HEMOGC, CA, CHM7, IPB, MGO #### [facility] [address] [place] [address] [place] [phone] CALCIUM Collected: 12/12/2017 Status: F Source: [facility] 1:53 AM [facility] REPOSITORY TYPE CODE TESTS RESULT OUT OF REFERENCE UNITS RANGE LAB CA 8.6-10.5 mg/dL Low Calcium 8.5 Performed By: #### HEMOGC, CA, CHM7, IPB, MGO #### [facility] [address] [place] [id number] [place] [address] [place] [phone] CHEM 7 Collected: 12/12/2017 Status: F Source: [facility] 1:53 AM [facility] REPOSITORY TYPE CODE TESTS RESULT OUT OF REFERENCE UNITS RANGE LAB BUN 7-22 mg/dL BUN 8 LAB NA 133-143 mmol/L Sodium 141 LAB K 3.5-5.0 mmol/L Potassium 3.9 LAB CL 98-108 mmol/L Chloride High 111 LAB CO2 22-30 mmol/L Carbon Dioxide 22 LAB GLUC 70-99 mg/dL Glucose 94 LAB CREA 0.50-1.20 mg/dL Creatinine 0.68 LAB GAP 7-17 mmol/L Anion Gap 12 LAB BC BUN/CREA Ratio 12 LAB [facility] 278-305 mOsm/kg Osmolality 292 (Calc) LAB GFR >60 mL/min/1.73 sqM Est GFR,non >60 Irish LAB GFRA >60 mL/min/1.73 sqM Est GFR, >60 Performed By: #### HEMOGC, CA, CHM7, IPB, MGO #### [facility] [address] [place] [address] [place] [address] INORGANIC PHOSPHATE Collected: 12/12/2017 Status: F Source: [facility] 1:53 AM [facility] REPOSITORY TYPE CODE TESTS RESULT OUT OF REFERENCE UNITS RANGE LAB IP 2.2-4.6 mg/dL Inorg Phosphate 2.4 Performed By: #### HEMOGC, CA, CHM7, IPB, MGO #### [facility] [address] [place] [address] [address] [phone] MAGNESIUM Collected: 12/12/2017 Status: F Source: [facility] 1:53 AM [facility] REPOSITORY TYPE CODE TESTS RESULT OUT OF REFERENCE UNITS RANGE LAB MG 1.6-2.6 mg/dL Magnesium 2.1 Performed By: #### HEMOGC, CA, CHM7, IPB, MGO #### [facility] [address] [place] [id number] [place] [address] [place] [id number] HEMOGRAM (CBC AND Collected: 12/11/2017 Status: F Source: [facility]) 2:15 AM [facility] REPOSITORY TYPE CODE TESTS RESULT OUT OF REFERENCE UNITS RANGE LAB WBC 3.98-10.04 K/uL WBC Count High 20.40 LAB RBC 3.93-5.22 M/uL Low RBC Count 3.53 LAB HGB 11.2-15.7 g/dL Low Hemoglobin 7.2 LAB HCT 34.1-44.9 % Low Hematocrit 24.4 LAB MCV 79.4-94.8 fL Low Mean Cell Volume 69.1 LAB MCH 25.6-32.2 pg Low Mean Cell Hgb 20.4 LAB MCHC 32.2-35.5 g/dL Low Mean Cell Hgb alert Conc 29.5 LAB RDW 11.7-14.4 % RBC High Distribution 20.5 LAB PLT 182-369 K/uL Platelet Count 336 LAB MPV 9.4-12.3 fL Mean Platelet Volume 9.6 LAB NRBC 0.0-0.2 /100 WBC NUCLEATED RBC 0.0 Performed By: #### HEMOGC, CA, CHM7, IPB, MGO #### [facility] [address] [place] [address] [place] [address] CALCIUM Collected: 12/11/2017 Status: F Source: [facility] 2:15 [facility] REPOSITORY TYPE CODE TESTS RESULT OUT OF REFERENCE UNITS RANGE LAB CA 8.6-10.5 mg/dL Calcium 8.7 Performed By: #### HEMOGC, CA, CHM7, IPB, MGO #### [facility] [address] [place] [address] [place] [address] CHEM 7 Collected: 12/11/2017 Status: F Source: [facility] 2:15 [facility] REPOSITORY TYPE CODE TESTS RESULT OUT OF REFERENCE UNITS RANGE LAB BUN 7-22 mg/dL BUN 12 LAB NA 133-143 mmol/L Sodium 138 LAB K 3.5-5.0 mmol/L Potassium 3.6 LAB CL 98-108 mmol/L Chloride High 109 LAB CO2 22-30 mmol/L Carbon Dioxide 22 LAB GLUC 70-99 mg/dL Glucose High 104 LAB CREA 0.50-1.20 mg/dL Creatinine 0.80 LAB GAP 7-17 mmol/L Anion Gap 11 LAB BC BUN/CREA Ratio 15 LAB OSMC 278-305 mOsm/kg Osmolality 288 (Calc) LAB GFR >60 mL/min/1.73 sqM Est GFR,non >60 Irish LAB GFRA >60 mL/min/1.73 sqM Est GFR, >60 Performed By: #### HEMOGC, CA, CHM7, IPB, MGO #### [facility] [address] [place] [id number] [place] [address] [place] [address] INORGANIC PHOSPHATE Collected: 12/11/2017 Status: F Source: [facility] 2:15 AM [facility] REPOSITORY TYPE CODE TESTS RESULT OUT OF REFERENCE UNITS RANGE LAB IP 2.2-4.6 mg/dL Inorg Phosphate 3.6 Performed By: #### HEMOGC, CA, CHM7, IPB, MGO #### [facility] [address] [place] [id number] [place] [address] [place] [address] MAGNESIUM Collected: 12/11/2017 Status: F Source: [facility] 2:15 AM [facility] REPOSITORY TYPE CODE TESTS RESULT OUT OF REFERENCE UNITS RANGE LAB MG 1.6-2.6 mg/dL Low Magnesium 1.5 Performed By: #### HEMOGC, CA, CHM7, IPB, MGO #### [facility] [address] [place] [address] SURGICAL PATHOLOGY Observed: 12/10/2017 Status: F Source: [facility] 7:59 AM [facility] REPOSITORY Surgical Pathology Report Patient Name: CHARISSA GUNTER [facility]. Rec #: [id number] Submitting Physician: THO MCGINNIS --- Clinical History --- Preoperative Diagnosis: Colovaginal fistula. N82.4. Medical History: Colovaginal fistula, urinary tract infection, sacral wound. ---Final Pathologic Diagnosis--- A. Left Colon (Partial Colectomy): - Segment of colon with multiple diverticula, with foci of transmural acute and chronic inflammation granulation tissue formation and fibrosis. - Serosal adhesions. [email or web address]:12/13/2017 Electronically Signed By Cari Munoz MD 12/13/2017 17:22:51 Professional Interpretation performed at location: [address] [place] [address] ---SPECIMEN(S) RECEIVED:--- SR A: Colon/Rectum, excision, not tumor, not total ---GROSS DESCRIPTION:--- The specimen is received in one properly labeled container with the patient's name and accession number. A. The specimen is designated left colectomy and consists of an unoriented segment of colon measuring 28.0 cm in length and ranging from 2.3 to 3.0 cm in diameter. The serosa at the mid portion of the specimen is covered with yellow-mohamud adipose tissue. The remaining serosa is predominantly smooth and pink-mohamud. There is one stapled and one open margin. The specimen is opened to reveal an area of stricture at the midportion of the bowel measuring 8.0 cm in length with a luminal diameter of 0.5 cm. The stricture underlies the serosa with the adherent adipose tissue. The bowel wall is thickened at the stricture with an average thickness of 0.7 cm. The stricture is sectioned to reveal multiple diverticula ranging from 0.4 to 0.8 cm. There are multiple diverticula that contain adjacent fibrous tissue. There is an area of possible perforation that is inked blue. There are additional diverticula within the remaining bowel ranging from 0.3 to 0.5 cm. The mucosa is undulating, mohamud and unremarkable. RS 13 Summary of Cassettes: A1-A2, shaved stapled margin, bisected and en face; A3, shaved mucosa at open margin; A4-A11, diverticula at stricture (possible perforation in A4 and two bisected diverticula in A5-A6); A12-A13, additional diverticula from remaining colon Note: A probe accidentally went through the diverticula in A4 so a true perforation may not be present. Lab Use Only: JobID [id number] Gross description by: Leo Slater II Performed By: #### SURGP #### [facility] [place] [address] [place] [address] [place] [id number] Observed: 11/26/2017 Status: F Source: [facility] TYPE AND CROSS - 3:15 PM [facility] [place] REPOSITORY ABO/RH(D): A POSITIVE ANTIBODY SCREEN: NEGATIVE Performed By: #### XMPO #### [facility] [address] [place] [id number] [facility] [address] [place], [place] [address] CBC WITH DIFF Collected: 11/26/2017 Status: F Source: [facility] 2:44 PM [facility] REPOSITORY TYPE CODE TESTS RESULT OUT OF REFERENCE UNITS RANGE LAB WBC 3.98-10.04 K/uL WBC Count 13.33 High LAB RBC 3.93-5.22 M/uL RBC Count 4.94 LAB HGB 11.2-15.7 g/dL Hemoglobin 10.0 Low LAB HCT 34.1-44.9 % Hematocrit 33.7 Low LAB MCV 79.4-94.8 fL Mean Cell 68.2 Low Volume LAB MCH 25.6-32.2 pg Mean Cell 20.2 Low Hgb LAB MCHC 32.2-35.5 g/dL Mean Cell 29.7 Low alert Hgb Conc LAB RDW 11.7-14.4 % RBC 21.2 High Distribution LAB PLT 182-369 K/uL Platelet 537 High Count LAB MPV 9.4-12.3 fL Mean 9.4 Platelet Volume LAB NRBC 0.0-0.2 /100 WBC NUCLEATED 0.0 RBC LAB DTYPE Electronic DIFFERENTIAL TYPE Differential LAB IGRE % IMMATURE 0.5 GRANS % LAB SEGS % NEUTROPHIL 69.6 SEGMENTED LAB LYM % LYMPHOCYTE 19.7 % LAB MON % MONOCYTE % 9.1 LAB EOS % EOSINOPHIL 0.6 % LAB BASO % BASOPHIL % 0.5 LAB IGABS <0.04 K/uL IMMATURE 0.06 High GRANS ABSOLUTE LAB SBANS 1.56-6.13 K/uL SEGS + 9.30 High Bands,Absolute LAB ALYM 1.18-3.74 K/uL Abs Lymph 2.62 LAB AMONO 0.24-0.86 K/uL Abs [place] 1.21 High LAB AEOS <0.37 K/uL Abs Eos 0.08 LAB ABASO <0.09 K/uL Abs Baso 0.06 Performed By: #### CBCDFM, CHM7C #### [facility] [address] [place] [address] #### FT4, TSH #### [facility] [address] [place] [address] [facility] [address] [place] [address] CHEM 7 - [address] Collected: 11/26/2017 Status: F Source: [facility] 2:44 PM [facility] REPOSITORY TYPE CODE TESTS RESULT OUT OF REFERENCE UNITS RANGE LAB NA 133-143 mmol/L Sodium 138 LAB K 3.5-5.0 mmol/L Potassium 4.0 LAB CL 98-108 mmol/L Chloride 105 LAB CO2 22-30 mmol/L Carbon Dioxide 25 LAB BUN 7-22 mg/dL BUN 21 LAB CREA 0.50-1.20 mg/dL Creatinine 0.70 LAB GLUC 70-99 mg/dL Glucose 91 LAB GAP 7-17 mmol/L Anion Gap 12 LAB GFR >60 mL/min/1.73 sqM Est GFR,non >60 Irish LAB GFRA >60 mL/min/1.73 sqM Est GFR, >60 LAB OSMC 278-305 mOsm/kg Osmolality 291 (Calc) Performed By: #### PREET SAMM7C #### [facility] [address] [place] [address] #### FT4, TSH #### [facility] [address] [place] [address] FREE T4 Collected: 11/26/2017 Status: F Source: [facility] 2:44 PM [facility] REPOSITORY TYPE CODE TESTS RESULT OUT OF RANGE REFERENCE UNITS LAB FT4 0.89-1.76 ng/dL Free T4 1.15 Performed By: #### FLACO, CHM7C #### [facility] [place] [address] #### FT4, TSH #### [facility] [address] [place] [address] TSH, HIGH SENSITIVITY Collected: 11/26/2017 Status: F Source: [facility] 2:44 PM [facility] REPOSITORY TYPE CODE TESTS RESULT OUT OF REFERENCE UNITS RANGE LAB TSH 0.550-4.780 uIU/mL TSH, High Sensitivity 1.622 Performed By: #### CBCDFM, CHM7C #### [facility] [place] [address] [place], [place] [address] #### FT4, TSH #### [facility] [address] [place] [id number] [place] [address] [address] [place], [place] [address] Observed: 11/21/2017 Status: F Source: [place] CULTURE, URINE 1:46 PM [facility] REPOSITORY Urine Culture ORGANISM 1: Presumptive E. coli [place] Count >100,000 Presumptive E. coli: REACTION Amoxacillin/Clavulanic Acid $ 4 S Ampicillin $ >=32 R Ampicillin/Sulbactam $ 16 I Cefazolin $ <=4 S Cefepime $ <=1 S Ceftriaxone $ <=1 S Ciprofloxacin $ <=0.25 S ESBL - Ertapenim $$$ <=0.5 S Gentamicin $ <=1 S Imipenem *NF <=0.25 S Levofloxacin $ 1 S Nitrofurantoin $ <=16 S Piperacillin/Tazobactam $$ <=4 S Tobramycin $ <=1 S Trimethoprim/Sulfametho $ >=320 R (NF) indicates non-formulary drug at [facility]. Approval by Infectious Disease Specialist required before non-formulary drugs may be ordered and/or dispensed. Performed By: #### M100.0650 #### [facility] [address] [place] [address], [id number] PROTHROMBIN TIME W/INR Collected: 11/21/2017 Status: F Source: [place] 1:37 PM [facility] REPOSITORY TYPE CODE TESTS RESULT OUT OF RANGE REFERENCE UNITS LAB L300.4150 11.7-14.9 SECONDS Normal PROTIME 13.3 LAB L300.4200 Normal INR 1.0 Performed By: #### L300.3900, L300.4310 #### [facility] [address] [facility] [place], [place], [id number] PARTIAL THROMBOPLAST Collected: 11/21/2017 Status: F Source: [place] TIME 1:37 PM [facility] REPOSITORY TYPE CODE TESTS RESULT OUT OF REFERENCE UNITS RANGE LAB L300.4310 24.1-36.2 Seconds High PTT 39.0 Performed By: #### L300.3900, L300.4310 #### [facility] [place], [address] CBC W/DIFF, AUTOMATED Collected: 10/22/2017 Status: F Source: [place] 12:07 PM [facility] REPOSITORY TYPE CODE TESTS RESULT OUT OF RANGE REFERENCE UNITS LAB L100.1000 4.4-11.0 K/mm3 High WBC 12.4 LAB L100.1200 4.2-5.4 M/mm3 Normal RBC 5.12 LAB L100.1300 12.0-15.0 g/dl Low HGB 10.0 LAB L100.1400 37-47 % Low HCT 35.0 LAB L100.1500 81-99 fL Low MCV 68.4 LAB L100.1600 27.0-32.0 pg Low MCH 19.5 LAB L100.1700 32-36 g/gl Low MCHC 28.6 LAB L100.1810 11.6-14.6 % High RDW CV 19.6 LAB L100.1820 35.1-43.9 fl High RDW SD 48.9 LAB L100.1900 150-450 K/mm3 High PLT 534 LAB L100.2000 6.2-12.0 fl Normal MPV 9.0 LAB L100.2100 47-70 % High NEUT% 72.9 LAB L100.2200 19-41 % Low LY% 15.0 LAB L100.2300 0-10 % High MONO% 11.1 LAB L100.2400 0-5 % Normal EO% 0.6 LAB L100.2500 0-1 % Normal BASO% 0.2 LAB L100.2550 0.0-0.9 % Normal IM GRAN % 0.200 Result Comment: IG% - Immature Granulocytes (promyelocytes, myelocytes and metamyelocytes) > 1% indicates that a LEFT SHIFT is Present. LAB L100.2620 2.0-7.7 X10 3/uL Absolute Neut High 9.0 LAB L100.2720 0.83-4.51 X10 3/ul Absolute Lymph Normal 1.86 LAB L100.5500 ADEQ PLT EST Normal ADEQUATE LAB L100.7300 ANISO Normal 1+ LAB L100.7600 HYPOCHROMASIA Normal 1+ LAB L100.7700 MICROCYTES Normal 2+ Performed By: #### L100.0100 #### [facility] [address] [place], [address] VITAMIN D,25 HYDROXY Collected: 10/22/2017 Status: F Source: [place] 12:07 PM [facility] REPOSITORY TYPE CODE TESTS RESULT OUT OF REFERENCE UNITS RANGE LAB L506.1000 29.95-100.01 ng/mL Low Vitamin D 27.9 25-OH Result Comment: Vitamin D 25(OH) Status Range Deficiency <20 ng/mL (50nmol/L) Insuffciency 20 - 30 ng/mL (50 - 75 nmol/L) Sufficiency 30 - 100 ng/mL (75 - 250 nmol/L) Toxicity >100 ng/mL (>250 nmol/L) Performed By: #### L506.1000 #### [facility] [address] [place], [address] COMPREHENSIVE METABOLIC Collected: 10/22/2017 Status: F Source: [facility] 12:07 [facility] REPOSITORY TYPE CODE TESTS RESULT OUT OF RANGE REFERENCE UNITS LAB L501.0100 74-106 mg/dL Normal GLU 94 Result Comment: Please note revised GLUCOSE reference range effective 2017. LAB L501.1000 7-18 mg/dL High BUN 22 LAB L501.1100 0.55-1.02 mg/dL Normal CREAT,SERUM 0.72 Result Comment: The validity of the calculated GFR AND GFRAA in patients over 70 years has not been determined. Clinical correlation is essential. LAB L501.1110 >60 mL/min Normal EST GFR 86 Result Comment: Non- GFR Calc LAB L501.1115 >60 mL/min Normal EST GFR - AA 104 Result Comment: GFR Calc LAB L501.1300 10-20 RATIO High BUN/CRE 30.6 LAB L501.1500 6.4-8.2 g/dL High T PROT 8.4 LAB L501.1800 3.2-5.0 g/dL Normal ALB 3.6 LAB L501.1950 2.2-4.2 g/dL High GLOB 4.8 LAB L501.2000 0.9-2.4 RATIO Low A/G 0.8 LAB L501.2200 8.5-10.1 mg/dL CA Normal 9.2 LAB L501.4100 15-37 U/L Normal AST 16 LAB L501.4305 45-117 U/L Normal ALK P 76 LAB L501.4405 13-56 U/L Normal ALT 14 LAB L501.4600 0.20-1.00 mg/dL T Normal BILI 0.20 LAB L501.5300 136-145 mmol/L NA Normal 140 LAB L501.5600 3.5-5.1 mmol/L K Normal 5.1 LAB L501.5900 98-107 mmol/L CL Normal 106 LAB L501.6100 21.0-32.0 mmol/L Normal CO2 27.0 LAB L501.6200 5-15 Normal GAP 7 Performed By: #### L500.4050, L501.9520 #### [facility] [address] [place], [place], [address] THYROID STIM HORMONE Collected: 10/22/2017 Status: F Source: [place] (TSH) 12:07 [facility] REPOSITORY TYPE CODE TESTS RESULT OUT OF RANGE REFERENCE UNITS LAB L501.9520 0.358-3.74 uIU/mL Normal TSH 1.24 Performed By: #### L500.4050, L501.9520 #### [facility] [address] [place], [address] Observed: 09/06/2017 Status: F Source: [place] CULTURE, URINE 1:07 PM [facility] REPOSITORY Urine Culture ORGANISM 1: Presumptive E. coli [place] Count >100,000 Presumptive E. coli: REACTION Amoxacillin/Clavulanic Acid $ 16 I Ampicillin $ >=32 R Ampicillin/Sulbactam $ 16 I Cefazolin $ <=4 S Cefepime $ <=1 S Ceftriaxone $ <=1 S Ciprofloxacin $ 0.5 S ESBL - Ertapenim $$$ <=0.5 S Gentamicin $ <=1 S Imipenem *NF <=0.25 S Levofloxacin $ 1 S Nitrofurantoin $ <=16 S Piperacillin/Tazobactam $$ <=4 S Tobramycin $ <=1 S Trimethoprim/Sulfametho $ >=320 R (NF) indicates non-formulary drug at [facility]. Approval by Infectious Disease Specialist required before non-formulary drugs may be ordered and/or dispensed. Performed By: #### M100.0650 #### [facility] [address] [place], [address] CAROTID DUPLEX Observed: 08/27/2017 Status: F Source: [place] ULTRASOUND 4:03 PM [facility] REPOSITORY [facility] Cardiovascular Services [address] [place] [address] Carotid Duplex Ultrasound 08/27/17 1301 MR#: [id number] Acct: [id number] Name: CHARISSA GUNTER Rep #: [id number] : 1950 67 From: Jessica Terrazas MD Attending Dr: Jessica Terrazas MD Status: REG CLI Ordering Dr: Jessica Terrazas MD Date: 08/27/17 Location: [facility] Sex: F C Admitted: Reason For Study: BRUIT Rt. Velocities/BP Lt. Velocities/BP Prox CCA 131.0/32.2 cm/sec. Prox CCA 110.0/23.6 cm/sec. Mid CCA 101.0/26.7 cm/sec. Mid CCA 106.0/30.6 cm/sec. Dist CCA 92.7/29.1 cm/sec. Dist CCA 105.0/35.4 cm/sec. Prox ICA 91.1/22.0 cm/sec. Prox ICA 106.0/26.7 cm/sec. Mid ICA 81.7/22.0 cm/sec. Mid ICA 113.0/36.9 cm/sec. Dist ICA 80.4/32.3 cm/sec. Dist ICA 57.4/25.1 cm/sec. Rt. ICA/CCA = 91.1/101.0=0.9. Lt. ICA/CCA = 113.0/106.0=1.1. Prox ECA 102.0/11.0 cm/sec. Prox ECA 82.5/23.6 cm/sec. Rt. Vert. 47.1/17.3 cm/sec. Lt. Vert. 46.0/16.5 cm/sec. Right Extracranial There is homogeneous, smooth atherosclerotic plaque noted in the right common carotid artery. There is homogeneous, smooth atherosclerotic plaque noted in the right internal carotid artery. There is homogeneous, smooth atherosclerotic plaque noted in the right external carotid artery. The right external carotid artery is not well visualized. Antegrade flow is noted in the right vertebral artery. Left Extracranial There is homogeneous, smooth atherosclerotic plaque noted in the left common carotid artery. There is heterogeneous, irregular atherosclerotic plaque noted in the left internal carotid artery. There is intimal thickening but no significant atherosclerotic plaque noted in the left external carotid artery. The left external carotid artery is not well visualized. Antegrade flow is noted in the left vertebral artery. Procedure Carotid Duplex 399[address]. The exam was diagnostic. Exam performed in department. Interpretation Summary Minimal plague at the proximal right internal carotid with <50% stenosis. Normal flow right external carotid Minimal irregular plague at the proximal left internal carotid with <50% stenosis. Normal flow left external carotid Patent and antegrade vertebrals bilaterally. Ordering Physician: Jessica Terrazas Referring Physician: Chema Schmidt Chi Performed By: Jana Arriaga, LINETTECS, RVT 08/27/17 1602 Date Jessica Terrazas MD CC: Jessica Terrazas MD; Chema Schmidt MD Date Dictated: 08/27/17 1301 Date Transcribed: 08/27/17 1602 Contracts Administrator: Signed OPERATIVE REPORT Observed: 08/21/2017 Status: F Source: [place] 6:51 AM [facility] REPOSITORY [facility] Medical Records Department [address] [place] [address] Operative Report 08/21/17 0644 MR#: [id number] Acct: [id number] Name: CHARISSA GUNTER Rep #: [id number] : 1950 67 From: Jessica Terrazas MD PCP: Daniel MELISSA,Chema Gil Status: REG [facility] Location: [place] [address] Problem List (1) Colovaginal fistula Status: Acute Report of Operation Date of Procedure: 08/21/17 Pre-Operative Diagnosis: Colovaginal fistula Post-Operative Diagnosis: Colovaginal fistula. Fixed tight sigmoid angulation at 40 cm. Sigmoid diverticulosis Surgery/Procedure Performed:: Flexible sigmoidoscopy Description of Surgical Findings:: Timeout and informed consent was obtained. 67-year-old female was taken to the endoscopy suite. Plans were to complete a full colonoscopy. The patient has a wound VAC in place on her sacrum. She is markedly diminished mobility of her hips. Timeout and informed consent was obtained. Throughout the procedure in aliquots she received total 150 mg of Demerol and 4 mg of Versed is intravenous sedation. Digital rectal exam performed. Grade 2 internal hemorrhoids. Slightly anal tone. No mass lesions. Flexible colonoscope inserted in the rectum. It was advanced to 40 cm where there was an extraordinarily tight angulation of the sigmoid colon that appeared to be quite fixed and indurated. Despite attempts I could not transgress past this area. This correlates with an area on barium enema of acute angulation. I did not feel comfortable attempting to transgress past this area. The scope was withdrawn. The sigmoid had some scattered diverticulosis. There were no evidence of any acute mucosal problems. Impression I strongly suspect that the site of the colovaginal fistula is at the site of acute angulation and induration at 40 cm. Scattered diverticulosis identified. The patient has dramatically restricted range of motion of her hips. This will certainly add to the difficulty of her procedure. Will consider tertiary referral. Jessica Terrazas M.D., F.A.C.S. Type of Anesthesia:: IV Sedation 08/21/17 0651 <Electronically signed by Jessica Terrazas MD> Date Jessica Terrazas MD CC: Jessica Terrazas MD; Chema Schmidt MD Signed SURGERY VISIT REPORT Observed: 08/09/2017 Status: F Source: [place] 6:43 PM [facility] [address] [place] [address] OFFICE VISIT Date of Service: 08/09/17 MR#: [id number] Acct: [id number] Name: CHARISSA GUNTER Rep #: [id number] : 1950 Provider: Jessica Terrazas MD Age/Sex: 67/F Location: [facility] Status: Signed with Addenda ADDENDUM by Jessica Terrazas MD on 08/09/17 at 1843 Addendum entered and electronically signed by Jessica Terrazas MD 08/09/17 18:43: copy Intake Chief Complaint: possible colovaginal fistula Allergies bee venom protein (honey bee) Allergy (Verified 08/09/17 08:07) Angioedema Medications Gabapentin [Neurontin] 300 mg PO TID 03/02/17 [History Confirmed 08/09/17] Levothyroxine [Synthroid] 25 mcg PO DAILY 03/02/17 [History Confirmed 08/09/17] Potassium Chloride [K-Dur] 40 meq PO DAILYCM #7 tab 03/08/17 [Rx Confirmed 08/09/17] Ensure Enlive 120 ml PO 4X/DAY 03/16/17 [Rx Confirmed 08/09/17] cholecalciferol (vitamin D3) 50,000 unit capsule 50,000 unit PO QWEEK 08/02/17 [History Confirmed 08/09/17] amoxicillin 875 mg-potassium clavulanate 125 mg tablet 1 tab PO BID 08/09/17 [History Confirmed 08/09/17] Assessment AND Plan Problems 1. Fistula involving female genital tract N82.9 Plan - Jessica Terrazas MD There are concerns that the patient might have a cystoscopy enteric fistula or a colovaginal fistula. I felt that the most direct means of approaching this was to obtain a cath urinalysis today. With great nursing assistance a cath UA was obtained and inspection of those results suggest no fecal contamination. I do propose for the patient a colonoscopy and we have discussed the technique, benefits, risks, alternatives. She is aware that this may be difficult to detect a fistula. There are concerns that she has vaginal fecal discharge however my concern is that she has contaminant secondary to possibly rectal incontinence and secondary to lack of mobility she has anterior smearing of the feces. I believe that a colonoscopy is indicated. I have a lower level of suspicion that a fistula will be detected. Then the question would need to be answered as to whether she can resolve her sacral decubitus which is improving with the current treatment or whether she would still benefit from a diverting colostomy. Her body habitus and medical comorbidities would not particularly led well to a colostomy and likely would result in the peristomal hernia. I would recommend ongoing maximization of her medical care. I appreciate the opportunity of assisting with her surgical care. We will schedule and proceed as noted. I did detect a carotid bruit and we will obtain carotid duplex imaging. Cc: Dr. Schmidt and Dr. Jade Terrazas M.D., F.A.C.S. Orders Orders: 08/09/17 1843 <Electronically signed by Jessica Terrazas MD> Date Jessica Terrazas MD cc: Regino Hansen MD; Chema Schmidt MD * Signed Intake Vital Signs08/09/17 Height 5 ft 4 in 08/09/17 Weight: 210 lb 8 oz 08/09/17 Body Mass Index (BMI) 36.1 08/09/17 Blood Pressure 107/67 Intake Visit Reasons: Consult Fistula Chief Complaint: possible colovaginal fistula [employer] Person Required: No Is patient in pain?: No Allergies bee venom protein (honey bee) Allergy (Verified 08/09/17 08:07) Angioedema Medications Gabapentin [Neurontin] 300 mg PO TID 03/02/17 [History Confirmed 08/09/17] Levothyroxine [Synthroid] 25 mcg PO DAILY 03/02/17 [History Confirmed 08/09/17] Potassium Chloride [K-Dur] 40 meq PO DAILYCM #7 tab 03/08/17 [Rx Confirmed 08/09/17] Ensure Enlive 120 ml PO 4X/DAY 03/16/17 [Rx Confirmed 08/09/17] cholecalciferol (vitamin D3) 50,000 unit capsule 50,000 unit PO QWEEK 08/02/17 [History Confirmed 08/09/17] amoxicillin 875 mg-potassium clavulanate 125 mg tablet 1 tab PO BID 08/09/17 [History Confirmed 08/09/17] Is last menstrual period known: No Post menopausal: Yes Patient : No PFSH Medical History Abnormal Pap smear of cervix (Acute) Anemia (Acute) Back pain (Acute) GERD (gastroesophageal reflux disease) (Acute) Heart murmur (Acute) Sacral wound (Acute) Thyroid disorder (Acute) anixety and depression (Acute) Hypertension (Chronic) Surgical History H/O dilation and curettage (Acute) History of LAVH (Acute) S/P endometrial ablation (Acute) S/P hysterectomy (Acute) uterine ablation (Acute) Family History Father Myocardial infarction Cancer lung Brother Heart disease Mother COPD (chronic obstructive pulmonary disease) Social History Smoking Status: Former smoker alcohol intake: never substance use type: does not use caffeine: Yes what type of physical activity do you participate in: walking seatbelt use: always do you feel safe at home: Yes additional social history: - Retired HPI HPI HPI: CHARISSA GUNTER, is a 67 F who presents to the office today for surgical consultation regarding possible cystoscopy enteric fistula. The patient is concerned that she has recurrent urinary tract infections. There is concern that on vaginal swab that she had feces. The patient states that she had a severe urinary tract infection causing sepsis and causing her to black out which then caused a pressure sore and sepsis she was hospitalized and underwent debridement of the sacrum by Dr. Hansen. She was seen by Nova Baez recently is concerned that there is stool within the vaginal smear. The patient has reduced range of motion of her hips. She is being referred for general surgical consultation. Urology consultation is still potentially pending other evaluation. At the [facility] on May 02, 2017 she had a barium enema which showed absolutely no extravasation of barium outside of the lumen of the colon. There is still ongoing concern. I have been asked to see this patient in surgical consultation by Dr. Schmidt and a written copy of my surgical consult recommendations will be returned to him ROS General General: Yes weight change and fatigue; no appetite, colon cancer, breast cancer or weakness HEENT HEENT: No difficulty swallowing, eye injury, eye surgery, swollen glands or hoarseness Endo Endocrine: Yes thyroid disease; no diabetes mellitus, thyroid cancer, Hair loss, heat intolerance or cold intolerance Skin Skin: No rash or changing moles Breast Breast: No left breast lump, right breast lump, nipple discharge, breast pain, abnormal mammogram, abnormal US or breast enlargement Musc Musculoskeletal: Yes back problems; no arthritis, rheumatoid arthritis, gout or joint pain Cardio Cardiovascular: Yes murmur; no pacemaker, heart disease, atrial fibrillation, high blood pressure, heart attack, heart stent, palpitations, shortness of breat with exertion or chest pain Psych Psychiatric: Yes depression and anxiety; no hearing voices Resp Respiratory: No shortness of breath, No sleep apnea, No cough, No COPD, No asthma, No emphysema, No wheezing Gastro Gastrointestinal: No abdominal pain, No nausea or vomiting, Yes diarrhea, Yes constipation, No blood in stool, Yes acid reflux, Yes hemorrhoids, No ulcers, No gallbladder problem, No black,tarry stools Gianfranco Hematologic: No blood thinners, No blood disorders, Yes bleeding, Yes anemia, No blood clots Neuro Neurologic: No system reviewed and no additional complaints, except as docu, No as per HPI, No abnormal walking, No abnormal hearing, No abnormal movements, No abnormal speech, No behavioral changes, No burning sensations, No confusion, No seizure-like activity, No unsteadiness, No dizziness, No localized weakness, No frequent falls, No headache(s), No lack of coordination, No loss of vision, No memory loss, No numbness, No other visual disturbances, No radiating pain, No restless legs, No sensory deficit, No fainting, No tingling, No tremor(s), No weakness, No other Exam Const General: cooperative, no acute distress Nutritional Appearance: obese Orientation: alert [facility] [place] Head: normal to inspection Eyes General: appearance normal, both eyes and all related structures Chest Chest palpation AND inspection: normal inspection of the chest Breast Palpation: No nipple discharge Resp Auscultation: clear to auscultation bilaterally Cardio Rate: regular rate Rhythm: regular rhythm Heart Sounds: murmur Other: Bilateral carotids and brachials and femorals are 3+. Soft 2/6 bilateral carotid bruits. GI Other: Abdomen is overweight, soft, nontender, no focal mass, not expansile, normal bowel sounds, Musc Cervical Spine: normal cervical lordosis Skin Other: Sacral wound VAC in place Extrem General: no calf tenderness Psych Affect: normal affect Assessment AND Plan Problems 1. Fistula involving female genital tract N82.9 Plan There are concerns that the patient might have a cystoscopy enteric fistula or a colovaginal fistula. I felt that the most direct means of approaching this was to obtain a cath urinalysis today. With great nursing assistance a cath UA was obtained and inspection of those results suggest no fecal contamination. I do propose for the patient a colonoscopy and we have discussed the technique, benefits, risks, alternatives. She is aware that this may be difficult to detect a fistula. There are concerns that she has vaginal fecal discharge however my concern is that she has contaminant secondary to possibly rectal incontinence and secondary to lack of mobility she has anterior smearing of the feces. I believe that a colonoscopy is indicated. I have a lower level of suspicion that a fistula will be detected. Then the question would need to be answered as to whether she can resolve her sacral decubitus which is improving with the current treatment or whether she would still benefit from a diverting colostomy. Her body habitus and medical comorbidities would not particularly led well to a colostomy and likely would result in the peristomal hernia. I would recommend ongoing maximization of her medical care. I appreciate the opportunity of assisting with her surgical care. We will schedule and proceed as noted. I did detect a carotid bruit and we will obtain carotid duplex imaging. Cc: Dr. Schmidt and Dr. Jade Terrazas M.D., F.A.C.S. Orders Orders: Coding Level of Care Code Detailed, Low Diagnoses Fistula involving female genital tract N82.9 08/09/171841 <Electronically signed by Jessica Terrazas MD> Date Jessica Terrazas MD Cosign Signature: Date (if applicable) CC: Regino Hansen MD; Chema Schmidt MD ABDOMEN/PELVIS WITH Observed: 08/09/2017 Status: F Source: [place] CONTRAST 1:28 PM [facility] REPOSITORY [facility] Imaging Services [address] [place] [address] Abdomen/Pelvis WITH Contrast MR#: [id number] Acct: [id number] Name: CHARISSA GUNTER Rep #: [id number] : 1950 F 67 From: Dean Roman MD PCP: Chema Schmidt MD, Chi Status: REG CLI Study: Abdomen/Pelvis WITH Contrast Date of Exam: 08/09/17 Exam# [id number] Ordering Dr: Jessica Terrazas MD STUDY: CT ABDOMEN AND PELVIS WITH CONTRAST REASON FOR EXAM: Female, 67 years old. Colovaginal fistula. Sacral pressure wound. RADIATION DOSAGE (If Supplied By Facility): CTDIvol = ( 14.88 ) mGy, DLP = ( 1219.64 ) mGycm TECHNIQUE: Transaxial images were obtained from the dome of the diaphragm to the symphysis pubis with oral contrast. 100 ml of Isovue 300 contrast was administered. Sagittal and coronal images were reconstructed. Individualized dose optimization techniques were used for this CT. COMPARISON: March 02, 2017. FINDINGS: The visualized lung bases are unremarkable. The visualized portions of the heart are within normal limits. Normal liver. Normal gallbladder and extrahepatic biliary system. Normal spleen. Normal pancreas. Normal bilateral adrenal glands. There is 0.3 cm stone at the lower pole of the right kidney. There is 0.2 cm stone at the lower pole of the left kidney. Normal visualized stomach. Normal small intestine. There is diverticulosis, with thickening of the sigmoid colon wall, and pelvic pericolonic inflammation changes consistent with acute diverticulitis. There is adjacent extraluminal tract with air extending to the vaginal cuff with small amount of air in the upper vagina consistent with colovaginal fistula, series 2 images 101/151 through 106/151. The appendix is visualized and appears normal. There is diffuse atherosclerotic calcification of the abdominal aorta, without a demonstrated aneurysm. Normal inferior vena cava. Normal retroperitoneum. Normal urinary bladder. There is absence of the uterus consistent with a prior hysterectomy. Normal abdominal wall. Mild degenerative change of the spine. Degenerative change of the bilateral hips. There is a sacral decubitus ulcer with skin thickening and focal defect. CT/Abdomen/Pelvis WITH Contrast IMPRESSION: Sigmoid diverticulitis with extraluminal air extending to the vaginal cuff consistent with colovaginal fistula. No obstruction or abscess. Small renal stones. No hydronephrosis. Sacral decubitus ulcer. No osseous destruction. Electronically Signed: Dean Roman MD at 23:20 EST , Service support , CC: Jessica Terrazas MD; Chema Schmidt MD Contracts Administrator: Signed URINALYSIS, COMPLETE Collected: 08/09/2017 Status: F Source: [place] 8:35 AM [facility] REPOSITORY Order Comment: How was Urine Obtained? CATHETER SPECIMEN TYPE CODE TESTS RESULT OUT OF RANGE REFERENCE UNITS LAB L400.3000 Yellow COLOR Normal Yellow LAB L400.3050 Clear Normal CLARITY Clear LAB L400.3200 Normal mg/dl Normal GLUCOSE, UR Normal LAB L400.3300 Negative mg/dL Normal BILIRUBIN URINE Negative LAB L400.3400 Negative mg/dl Normal KETONE UR Negative LAB L400.3465 1.002-1.030 Normal SP.GR. DIPSTX 1.020 LAB L400.3550 5.0 - 8.0 pH UR Normal 6.0 LAB L400.3600 Negative mg/dl PROT Normal DIPSTX Negative LAB L400.3700 Normal mg/dl Normal UROBILI Normal LAB L400.3750 Negative Normal NITRITE UR Negative LAB L400.3780 Negative /ul Normal OCCULT BLOOD-UR Negative LAB L400.3800 Negative /ul LEUK Normal ESTERASE Negative LAB L400.4050 0-5 /hpf WBC Normal 0-5 SEEN LAB L400.4100 0-5 /hpf 0 Normal RBC-UA SEEN LAB L400.4150 5-10 /hpf SQUAM Normal EPI 0-5 SEEN LAB L400.4300 None Seen /hpf Normal BACTERIA RARE LAB L400.4350 <or=2+ /hpf 1+ Normal MUCUS, URINE Performed By: #### L400.0001 #### [facility] [address] [place], [address] Observed: 08/02/2017 Status: F Source: [place] CULTURE, GENITAL 5:37 PM [facility] COMPREHENSIVE REPOSITORY Gram Stain Gram Stain No Gram negative diplococci 1+ Gram negative rods 2+ Gram positive cocci No Yeast Like Organisms 3+ Epithelial cells 2+ White Blood Cells Gent Cult Comp No yeast, Gardnerella, Neisseria or beta-hemolytic Streptococcus isolated. ORGANISM 1: GPC Poss Enterococcus sp Amount Growth 2+ Performed By: #### M100.1600 #### [facility] [address] [place], [place], [address] FILENET ARCHITECT OFFICE VISIT Observed: 08/02/2017 Status: F Source: [place] REPORT 2:32 PM [facility] REPOSITORY [facility] [address] [place] [address] OFFICE VISIT Date of Service: 08/02/17 MR#: [id number] Acct: [id number] Name: GUNTERCHARISSA Miriam Rep #: [id number] : 1950 Provider: ROXI Baez Age/Sex: 67/F Location: 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: No Is patient in pain?: No Allergies bee venom protein (honey bee) Allergy (Verified 08/02/17 13:47) Angioedema Medications Gabapentin [Neurontin] 300 mg PO TID 03/02/17 [History Confirmed 08/02/17] Levothyroxine [Synthroid] 25 mcg PO DAILY 03/02/17 [History Confirmed 08/02/17] Potassium Chloride [K-Dur] 40 meq PO DAILYCM #7 tab 03/08/17 [Rx Confirmed 08/02/17] Ensure Enlive 120 ml PO 4X/DAY 03/16/17 [Rx Confirmed 04/24/17] cholecalciferol (vitamin D3) 50,000 unit capsule 50,000 unit PO QWEEK 08/02/17 [History Confirmed 08/02/17] ciprofloxacin 500 mg tablet 500 mg PO ONCE 08/02/17 [History Confirmed 08/02/17] Is last menstrual period known: No Post menopausal: Yes Patient : No : No PFSH Medical History Abnormal Pap smear of cervix (Acute) Thyroid disorder (Acute) anixety and depression (Acute) Hypertension (Chronic) Surgical History H/O dilation and curettage (Acute) History of LAVH (Acute) uterine ablation (Acute) Family History Father Myocardial infarction Cancer lung Brother Heart disease Mother COPD (chronic obstructive pulmonary disease) Social History Smoking Status: Former smoker alcohol intake: never substance use type: does not use caffeine: Yes what type of physical activity do you participate in: walking seatbelt use: always do you feel safe at home: Yes additional social history: - Retired HPI DISCHARGE: Details: CHARISSA GUNTER is a 67 year old who presents for notes discharge, sometimes green, sometimes blood, sometimes appears like feces. Denies odor but also has wound vac on sacrum since April and has odor from there. She thought discharge was from urethra but may be from vaginal. Denies pain or irritation. Is in wheelchair. States can ambulate short distances. States unable to rotate hips out due to wound vac. Pregancy History 0 Elective abortions Hx Para Spontaneous abortions Exam Other: Limited vaginal exam due to unable to position or tolerate speculum. Some green discharge noted, no odor. No bleeding. Internal vaginal exam normal, no masses, nontender. Rectum normal. Assessment AND Plan Problems 1. Vaginal discharge N89.8 Plan Await vaginal culture. Call results If recurrence of incontinence of stool will consider discussing with PCP for gastro consult. Orders Orders: Coding Level of Care Code Off vis,new,level 3 Diagnoses Vaginal discharge N89.8 08/02/17 1432 <Electronically signed by Nova Sasha CFO CONTROLLER-C> Date Nova [place] CFO CONTROLLER-C Cosigner Signature: Date (if applicable) CC: Observed: 08/02/2017 Status: F Source: [place] CULTURE, DEEP WOUND 12:15 PM [facility] REPOSITORY Comments: SACRUM ULCER Gram Stain Gram Stain 4+ Red Blood Cells No White Blood Cells No organisms seen Wound Culture #2 Gram positive burke suggestive of a diptheroid. There are no CLSI standards for interpretation of this Drug/Organism combination. ORGANISM 1: Enterococcus faecalis Amount Growth 1+ ORGANISM 2: Gram positive burke Amount Growth 2+ Enterococcus faecalis: REACTION Ampicillin $ <=2 S Benzylpenicillin NF 4 S Gentamicin SYN-S S Linezolid $$$$ 2 S Tigecycline $$$$ <=0.12 S Streptomycin $ SYN-S S Vancomycin $ 1 S (NF) indicates non-formulary drug at [facility]. Approval by Infectious Disease Specialist required before non-formulary drugs may be ordered and/or dispensed. * CLSI guidelines does not recommend testing of cephalosporins. This interpretation is deduced from Beta-lactam/penicillin results. Cult, Anaerobic Studies have confirmed that Anaerobic Gram Positive Cocci are routinely susceptible to: Penicillin/Ampicillin, Ampicillin/Sulbactam, Piperacillin/Tazobactam, Cefoxatin, Ertapenem, Imipenem, Meropenem and Metronidazole and vary in resistance to: Clindamycin and Moxifloxacin. ORGANISM 1: Anaerobic cocci Performed By: #### M100.1500 #### [facility] [address] [place], [place], [address] COMPREHENSIVE METABOLIC Collected: 07/24/2017 Status: F Source: [place] [facility] 1:49 PM [facility] REPOSITORY TYPE CODE TESTS RESULT OUT OF RANGE REFERENCE UNITS LAB L501.0100 74-106 mg/dL Normal GLU 85 Result Comment: Please note revised GLUCOSE reference range effective 2017. LAB L501.1000 7-18 mg/dL High BUN 19 LAB L501.1100 0.55-1.02 mg/dL Normal CREAT,SERUM 0.62 Result Comment: The validity of the calculated GFR AND GFRAA in patients over 70 years has not been determined. Clinical correlation is essential. LAB L501.1110 >60 mL/min Normal EST GFR 103 Result Comment: Non- GFR Calc LAB L501.1115 >60 mL/min Normal EST GFR - AA 124 Result Comment: GFR Calc LAB L501.1300 10-20 RATIO High BUN/CRE 30.7 LAB L501.1500 6.4-8.2 g/dL T Normal PROT 8.0 LAB L501.1800 3.2-5.0 g/dL Normal ALB 3.4 LAB L501.1950 2.2-4.2 g/dL High GLOB 4.6 LAB L501.2000 0.9-2.4 RATIO Low A/G 0.7 LAB L501.2200 8.5-10.1 mg/dL CA Normal 9.2 LAB L501.4100 15-37 U/L Normal AST 22 LAB L501.4305 45-117 U/L Normal ALK P 58 LAB L501.4405 13-56 U/L Normal ALT 21 Result Comment: Please note revised ALT reference range effective 2017. LAB L501.4600 0.20-1.00 mg/dL Normal T BILI 0.40 LAB L501.5300 136-145 mmol/L Normal NA 139 LAB L501.5600 3.5-5.1 mmol/L Normal K 4.7 LAB L501.5900 98-107 mmol/L Normal CL 105 LAB L501.6100 21.0-32.0 mmol/L Normal CO2 25.0 LAB L501.6200 5-15 Normal GAP 9 Performed By: #### L500.4050, L500.4100, L501.9520 #### [facility] [address] [place], [address] LIPID PROFILE Collected: 07/24/2017 Status: F Source: [place] 1:49 PM [facility] REPOSITORY TYPE CODE TESTS RESULT OUT OF RANGE REFERENCE UNITS LAB L501.4900 200 mg/dL Normal CHOL 150 Result Comment: <200 mg/dL Desirable 200-240 mg/dL Borderline >240 mg/dL High Risk LAB L501.5000 mg/dL Normal TRIG 138 Result Comment: The drugs N-Acetylcysteine and Metamizole may falsely depress this assay. Serum Triglycerides Reference Interval Normal <150 mg/dL Borderline high 150 - 199 mg/dL High 200 - 499 mg/dL Very High > or = 500 mg/dL LAB L501.6400 mg/dL Low HDL 37 Result Comment: The drugs N-Acetylcysteine and Metamizole may falsely depress this assay. Reference Range HDL <40 mg/dL Low HDL Cholesterol HDL >or= 60 mg/dL High HDL Cholesterol LAB L501.6500 0-130 mg/dL Normal LDL 85 LAB L501.6600 5-40 mg/dL Normal VLDL 28 Performed By: #### L500.4050, L500.4100, L501.9520 #### [facility] [address] [place], [place], [address] THYROID STIM HORMONE Collected: 07/24/2017 Status: F Source: [place] (TSH) 1:49 PM [facility] REPOSITORY TYPE CODE TESTS RESULT OUT OF RANGE REFERENCE UNITS LAB L501.9520 0.358-3.74 uIU/mL Normal TSH 1.28 Performed By: #### L500.4050, L500.4100, L501.9520 #### [facility] [address] [place], [address] CBC W/DIFF, AUTOMATED Collected: 07/24/2017 Status: F Source: [place] 1:49 PM [facility] REPOSITORY TYPE CODE TESTS RESULT OUT OF RANGE REFERENCE UNITS LAB L100.1000 4.4-11.0 K/mm3 High WBC 13.0 LAB L100.1200 4.2-5.4 M/mm3 Normal RBC 4.50 LAB L100.1300 12.0-15.0 g/dl Low HGB 8.7 LAB L100.1400 37-47 % Low HCT 31.2 LAB L100.1500 81-99 fL Low MCV 69.3 LAB L100.1600 27.0-32.0 pg Low MCH 19.3 LAB L100.1700 32-36 g/gl Low MCHC 27.9 LAB L100.1810 11.6-14.6 % High RDW CV 19.1 LAB L100.1820 35.1-43.9 fl High RDW SD 48.4 LAB L100.1900 150-450 K/mm3 High PLT 688 LAB L100.2000 6.2-12.0 fl Normal MPV 8.8 LAB L100.2100 47-70 % Normal NEUT% 69.4 LAB L100.2200 19-41 % Low LY% 18.8 LAB L100.2300 0-10 % High MONO% 10.5 LAB L100.2400 0-5 % Normal EO% 0.9 LAB L100.2500 0-1 % Normal BASO% 0.2 LAB L100.2550 0.0-0.9 % Normal IM GRAN % 0.200 Result Comment: IG% - Immature Granulocytes (promyelocytes, myelocytes and metamyelocytes) > 1% indicates that a LEFT SHIFT is Present. LAB L100.2620 2.0-7.7 X10 3/uL Absolute Neut High 9.0 LAB L100.2720 0.83-4.51 X10 3/ul Absolute Lymph Normal 2.43 LAB L100.4500 SMEAR COMMENT Normal SCANNED LAB L100.7300 ANISO Normal 2+ LAB L100.7500 POLYCHROMASIA Normal RARE LAB L100.7600 HYPOCHROMASIA Normal 1+ LAB L100.7700 MICROCYTES Normal 2+ Performed By: #### L100.0100 #### [facility] [address] [place], [place], [address] VITAMIN D,25 HYDROXY Collected: 07/24/2017 Status: F Source: [place] 1:49 PM [facility] REPOSITORY TYPE CODE TESTS RESULT OUT OF REFERENCE UNITS RANGE LAB L506.1000 19.95-100.01 ng/mL Low Vitamin D 18.7 25-OH Result Comment: Vitamin D 25(OH) Status Range Deficiency <20 ng/mL (50nmol/L) Insuffciency 20 - 30 ng/mL (50 - 75 nmol/L) Sufficiency 30 - 100 ng/mL (75 - 250 nmol/L) Toxicity >100 ng/mL (>250 nmol/L) Performed By: #### L506.1000 #### [facility] [address] [place], [address] Observed: 07/24/2017 Status: F Source: [place] CULTURE, URINE 1:49 PM [facility] REPOSITORY Urine Culture ORGANISM 1: Presumptive E. coli [place] Count >100,000 Presumptive E. coli: REACTION Amoxacillin/Clavulanic Acid $ 8 S Ampicillin $ >=32 R Ampicillin/Sulbactam $ 16 I Cefazolin $ <=4 S Cefepime $ <=1 S Ceftriaxone $ <=1 S Ciprofloxacin $ <=0.25 S ESBL - Ertapenim $$$ <=0.5 S Gentamicin $ <=1 S Imipenem *NF <=0.25 S Levofloxacin $ 0.5 S Nitrofurantoin $ <=16 S Piperacillin/Tazobactam $$ <=4 S Tobramycin $ <=1 S Trimethoprim/Sulfametho $ >=320 R (NF) indicates non-formulary drug at [facility]. Approval by Infectious Disease Specialist required before non-formulary drugs may be ordered and/or dispensed. Performed By: #### M100.0650 #### [facility] [address] [place], [place], [address] WOUND CTR HISTORY Observed: 07/06/2017 Status: F Source: [place] AND PHYSICAL 5:17 PM [facility] REPOSITORY [facility] [address] [place] [address] Wound Ctr History AND Physical 07/05/17 1653 MR#: [id number] Acct: [id number] Name: CHARISSA GUNTER Rep #: [id number] : 1950 67 From: Brant Santiago MD PCP: Daniel MELISSA,Chema Chi Status: REG RCR Y Location: WC (1) Pressure ulcer of left heel, stage 3 Status: Acute Current Visit: Yes Code(s): L89.623 - Pressure ulcer of left heel, stage 3 (2) Pressure ulcer of right heel, stage 3 Status: Acute Current Visit: Yes Code(s): L89.613 - Pressure ulcer of right heel, stage 3 (3) Pressure ulcer of sacral region, stage 4 Status: Chronic Current Visit: Yes Code(s): L89.154 - Pressure ulcer of sacral region, stage 4 History of Present Illness Date of Service: 07/05/17 Chief Complaint: Stage IV sacral pressure ulceration; bilateral unstageable necrotic heel pressure ulcerations History of Wound: Ms. Gunter is a 67-year-old female who has been seen here about a month ago and managed as a case of bilateral stage III pressure ulcers and stage IV sacral ulcer. Due to insurance issues she has not been seen here in over a month and was seen at another wound center however she returns here today for continued care. 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 She had intraoperative surgical debridement of her sacral wound and has since had a wound VAC. Wound has shown significant progress since initial episode. She currently has a wound VAC to her sacral wound and has been applying collagen to the bilateral heels. She denies chills, fever or otherwise feeling of unwell. Past Medical History Past Medical History: Chronic Problems Pressure ulcer of sacral region, stage 4 (Chronic) Pressure ulcer, heel, left, unstageable (Chronic) Pressure ulcer, heel, right, unstageable (Chronic) Hypothyroidism (Chronic) Depression (Chronic) GERD (gastroesophageal reflux disease) (Chronic) Neuropathy (Chronic) Hypertension (Chronic) GERD (gastroesophageal reflux disease) (Chronic) Morbid obesity with BMI of 40.0-44.9, adult (Chronic) Surgical History: - - As previously undergone hysterectomy. She is a Ab0. Surgical debridement of her sacral pressure ulceration was performed on April 12, 2017, at [facility]. Allergies/Adverse Reactions: Allergies bee venom protein (honey bee) Allergy (Verified 03/09/17 21:06) Angioedema Home Medications: Ambulatory Orders Medication Instructions Recorded Baclofen 10 mg PO TID 03/02/17 Gabapentin [Neurontin] 300 mg PO TID 03/02/17 - Family History Maternal Unknown, - - Patient's mother at the age of 82 with a history of chronic obstructive pulmonary disease. Paternal Unknown, - - Patient's father at age of 79 with history of lung cancer and myocardial infarction. Smoking Status: Former smoker Tobacco Use: Non-smoker Review of Systems Constitutional: Denies: Anorexia, Chills, Fever Eyes: Denies: Pain, Redness HEENT: Denies: Difficulty Hearing, Difficulty Swallowing Cardiovascular: Denies: Chest Pain, Chest Tightness Respiratory: Denies: Cough, Hemoptysis Gastrointestinal: Denies: Abdominal Pain Skin: Denies: Jaundice - Physical Exam Vital Signs Temp Pulse Resp BP 98.2 F 95 18 107/69 07/05/17 09:26 07/05/17 09:26 07/05/17 09:26 07/05/17 09:26 General: Alert, Oriented x3, Cooperative, No apparent distress HEENT: Atraumatic, Normocephalic Oral: Moist Mucosa Neck: Supple Lungs: Normal air movement Cardiovascular: Regular rate Abdomen: Non Tender Extremities: No cyanosis Skin: Ulcer/ Wound Wound Measurements and Assessment WC - Nurse 1 - General Ulcer Measurement Start: 07/05/17 09:25 Freq: Status: Active Protocol: Activity Type Activity Date Activity User E-Sign Co-Sign Detail Recorded Client Recorded Date Recorded By Document 07/05/17 09:26 MW [id number] 07/05/17 09:36 MW Wound Center Nurse 1 [Ulcer Assessment Protocol: CHILO.WD.LOC] #3 sacrum -Combined with other wound No WC - Nurse 2 - General Ulcer CM Notes Start: 07/05/17 09:25 Freq: Status: Active Protocol: Activity Type Activity Date Activity User E-Sign Co-Sign Detail Recorded Client Recorded Date Recorded By Document 07/05/17 09:52 DV [id number] 07/05/17 10:09 DV Wound Center Nurse 2 [Procedure/Treatment] #3 sacrum -Time 09:55 -Correct Patient Yes -Correct Side, Site, Position Yes Musculoskeletal: No Muscle Wasting Neurological: Cranial nerves II-XII grossly intact Psych/Mental Status: Normal Affect Debridement Note Post-Debridement Measurements/Treatment WC - Nurse 2 - General Ulcer CM Notes Start: 07/05/17 09:25 Freq: Status: Active Protocol: Activity Type Activity Date Activity User E-Sign Co-Sign Detail Recorded Client Recorded Date Recorded By Document 07/05/17 09:52 DV [id number] 07/05/17 10:09 DV Wound debrided: Sacral ulcer Wound Grade/Stage: Stage IV Type of Debridement: Excisional debridement Anesthesia Used: 4% Lidocaine Solution Depth: Down to and including healthy tissue, to muscle Percentage of wound debrided: 100 Instrument Used: 7mm curette Tissue Removed: Slough, devitalized tissue, fibrin. Severity: Fat Layer Exposed Amount of bleeding with debridement: Mild Bleeding Controlled with: Pressure Patient tolerated procedure well - Additional Wound Wound debrided: Right heel. Wound Grade/Stage: Stage III Type of Debridement: Excisional debridement Anesthesia Used: 4% Lidocaine Solution Depth: Down to and including healthy tissue, in the subcutaneous layer Percentage of wound debrided: 100 Instrument Used: 5mm curette Tissue Removed: Purulent material, devitalized tissue and slough Severity: Fat Layer Exposed Amount of bleeding with debridement: Mild Bleeding Controlled with: Pressure Patient tolerated procedure: Patient tolerated procedure well - Additional Wound Wound debrided: Left heel Wound Grade/Stage: Stage III Type of Debridement: Excisional debridement Anesthesia Used: 4% Lidocaine Solution Depth: Down to and including healthy tissue, in the subcutaneous layer Percentage of wound debrided: 100 Instrument Used: 5mm curette Tissue Removed: Slough and devitalized tissue Severity: Fat Layer Exposed Amount of bleeding with debridement: Mild Bleeding Controlled with: Pressure Assessment/Plan Active Problems Pressure ulcer of sacral region, stage 4 (Chronic) Pressure ulcer of left heel, stage 3 (Acute) Pressure ulcer of right heel, stage 3 (Acute) Assessment: Stage IV sacral decubitus ulcer. Right heel stage III pressure ulcer. Left heel stage III pressure ulcer. Plan: She has shown some wound progress since her last visit here. Still applying the wound VAC to her sacral wound which has decreased compared to her last visit. Debridement done as documented above. Continue wound VAC at 150 mmHg continuously. Bilateral heel ulcers with minimal improvement. Purulent material noted from the right heel. Cultures taken. Debridement done as documented above. Promogran daily to bilateral heel ulcers. Patient advised to continue to increase protein in diet and protein supplements. Offloading of bilateral lower extremities. Follow-up in 1 week. This note was generated with [employer] software. It may contain incorrect words, spelling, and punctuation that were not noted in checking the note before signing. 07/06/17 1717 <Electronically signed by Brant Santiago MD> Date Brant Santiago MD CC: Signed Observed: 07/05/2017 Status: F Source: RIGOBERTO CULTURE, DEEP WOUND 10:00 AM [facility] REPOSITORY Comments: RIGHT HEEL ULCER Gram Stain Gram Stain 1+ White Blood Cells 1+ Gram positive cocci Wound Culture ORGANISM 1: Staphylococcus aureus Amount Growth 3+ Staphylococcus aureus: REACTION Benzylpenicillin NF >=0.5 R Cefoxitin *NF - Clindamycin $$ <=0.25 S Inducable Clindamycin Resistan - Erythromycin $ 0.5 S Gentamicin $ <=0.5 S Levofloxacin $ 0.25 S Linezolid $$$$ 2 S Moxifloxicin *NF <=0.25 S Oxacillin NF <=0.25 S Tigecycline $$$$ <=0.12 S Rifampin $$ <=0.5 S Tetracycline NF <=1 S Trimethoprim/Sulfametho $ <=10 S Vancomycin $ 1 S (NF) indicates non-formulary drug at [facility]. Approval by Infectious Disease Specialist required before non-formulary drugs may be ordered and/or dispensed. * CLSI guidelines does not recommend testing of cephalosporins. This interpretation is deduced from Beta-lactam/penicillin results. Cult, Anaerobic Studies have confirmed that Anaerobic Gram Positive Cocci are routinely susceptible to: Penicillin/Ampicillin, Ampicillin/Sulbactam, Piperacillin/Tazobactam, Cefoxatin, Ertapenem, Imipenem, Meropenem and Metronidazole and vary in resistance to: Clindamycin and Moxifloxacin. ORGANISM 1: Anaerobic cocci Performed By: #### M100.1500 #### [facility] [address] [place], [place], [address] Observed: 05/23/2017 Status: F Source: RIGOBERTO CULTURE, URINE 2:43 PM [facility] REPOSITORY Urine Culture ORGANISM 1: Mixed Gram Positive Organisms [place] Count 80,000-100,000 MIX CULTURE Mixed contaminants. Submit a new specimen if indicated. Performed By: #### M100.0650 #### [facility] [address] [place], [address] ALLERGIES ALLERGIES DATE TYPE / CODE NAME / CODE REACTION SEVERITY SOURCE 04/19/2018 Drug metaxalone/F00 Swelling Unknown [facility] Allergy/168 0055993([facility] 126986(SNOM ) Repository ED CT) 04/19/2018 Drug bee venom Angioedema Unknown [facility] Allergy/416 protein ([facility] 109784([facility] bee)/[id number] Repository ED CT) 5(RXNORM) ENCOUNTERS ENCOUNTERS ADMIT/DISCHARGE ACCOUNT NUMBER ADMITTING ENCOUNTER LOCATION SOURCE CLASS 05/15/2018 [id number] Regino Hansen [facility] [place] [facility] 05/15/2018 [id number] Regino Hansen Amb[facility] [place] [facility] 05/15/2018 [id number] Regino Hansen Ambulatory BMSBuilding: [place] BMS.[facility] Repository 05/15/2018 [id number] Regino Hansen Ambulatory BMSBuilding: [place] BMS.[facility] Repository 05/15/2018 [id number] Regino Hansen Ambulatory BMSBuilding: [place] BMS.[facility] Repository 05/15/2018 [id number] Regino Hansen Amb[facility]MSBuilding[facility] [place] [facility] 05/15/2018/05/17/20 [id number] [facility] ding:SF3Hbie Repository : XV608Wqd: 1 05/15/2018 [id number] Ambulatory [facility] ding:WC Repository 05/08/2018 [id number] Ambulatory [facility] ding:PT Repository 05/01/2018 [id number] Ambulatory BMSBuilding: [facility] Repository 05/01/2018/05/03/20 [id number] Ambulatory [address] ding:WC Repository 04/30/2018 [id number] Ambulatory [facility] ding:RAD Repository 04/24/2018 [id number] Ambulatory BMSBuilding: [facility] Repository 04/22/2018 [id number] [facility] [place] [facility] 04/22/2018 [id number] Ambulatory [facility] ding:CVS Repository 04/19/2018/04/19/20 [id number] Ambulatory BMSBuilding: [place] 18 BMS.[facility] Repository 04/16/2018 [id number] Ambulatory [facility] ding:SDC Repository 04/15/2018 [id number] Ambulatory BMSBuilding: [place] BMS.CF.[facility] Repository 04/10/2018 [id number] Ambulatory BMSBuilding: [facility] Repository 04/03/2018/04/03/20 [id number] Ambulatory [address] ding:WC Repository 04/03/2018 [id number] Ambulatory BMSBuilding: [facility] Repository 03/28/2018 [id number] Ambulatory [facility] ding:LAB.FUT Repository URE 03/27/2018 [id number] Ambulatory BMSBuilding: [facility] Repository 03/20/2018 [id number] Ambulatory BMSBuilding: [facility] Repository 03/11/2018 [id number] Ambulatory BMSBuilding: [place] BMS.CF.[facility] Repository 03/06/2018 [id number] Ambulatory BMSBuilding: [facility] Repository 02/27/2018/03/03/20 [id number] Ambulatory [address] ding:WC Repository 02/27/2018 [id number] Ambulatory BMSBuilding: [facility] Repository 02/20/2018 [id number] Ambulatory BMSBuilding: [facility] Repository 02/19/2018 [id number] Ambulatory Building:ARL [facility] Repository 02/13/2018 [id number] Ambulatory BMSBuilding: [facility] Repository 02/06/2018 [id number] Ambulatory BMSBuilding: [facility] Repository 01/31/2018 [id number] Ambulatory [facility] ding:LAB.FUT Repository URE 01/30/2018/02/02/20 [id number] Ambulatory [address] ding:WC Repository 01/30/2018 [id number] Ambulatory BMSBuilding: [facility] Repository 01/23/2018 [id number] Ambulatory BMSBuilding: [facility] Repository 01/16/2018 [id number] Ambulatory BMSBuilding: [facility] Repository 01/15/2018 [id number] [facility] 01/09/2018 [id number] Ambulatory BMSBuilding: [facility] Repository 01/02/2018 [id number] Ambulatory BMSBuilding: [facility] Repository 12/26/2017/01/02/20 [id number] Ambulatory [address] ding: Repository 12/26/2017 [id number] Ambulatory BMSBuilding: [facility] Repository 12/10/2017/12/15/19 [id number] [facility], Inpatient Building:[place] [address] THO L Encounter ERoom: [address]: A [facility] Repository 11/26/2017 [id number] Ambulatory Building:[facility] Repository 11/26/2017 [id number] Ambulatory Building:[facility] Repository 11/21/2017/12/02/19 [id number] Ambulatory [address] ding: Repository 11/14/2017 [id number] Ambulatory BMSBuilding: [facility] Repository 11/07/2017 [id number] Ambulatory BMSBuilding: [facility] Repository 10/31/2017/11/02/19 [id number] Ambulatory [address] ding: Repository 10/31/2017 [id number] Ambulatory BMSBuilding: [facility] Repository 10/24/2017 [id number] Ambulatory BMSBuilding: [facility] Repository 10/24/2017 [id number] Ambulatory BMSBuilding: [facility] Repository 10/23/2017 [id number] [facility] 10/22/2017 [id number] Ambulatory [facility] ding:POLAB3 Repository 10/17/2017 [id number] Ambulatory BMSBuilding: [facility] Repository 10/11/2017 [id number] Ambulatory BMSBuilding: [facility] Repository 10/04/2017 [id number] Ambulatory BMSBuilding: [facility] Repository 09/27/2017/10/02/19 [id number] Ambulatory [address] Hospital ding:WC Repository 09/27/2017 [id number] Ambulatory BMSBuilding: [facility] Repository 09/20/2017 [id number] Ambulatory BMSBuilding: [facility] Repository 09/06/2017 [id number] Ambulatory BMSBuilding: [facility] Repository 08/29/2017/09/02/19 [id number] Ambulatory [address] ding:WC Repository 08/29/2017 [id number] Ambulatory BMSBuilding: [facility] Repository 08/27/2017 [id number] Ambulatory [facility] ding:CVS Repository 08/27/2017 [id number] Ambulatory BMSBuilding: [place] BMS.CF.[facility] Repository 08/23/2017 [id number] Ambulatory BMSBuilding: [facility] Repository 08/21/2017/08/22/19 [id number] Ambulatory [address] Hospital ding:EN Repository 08/21/2017 [id number] Ambulatory BMSBuilding: [place] BMS.CF.[facility] Repository 08/19/2017 [id number] Ambulatory [facility] Repository 08/16/2017 [id number] Ambulatory BMSBuilding: [facility] Repository 08/09/2017 [id number] Ambulatory [facility] ding:CT Repository 08/09/2017 [id number] Ambulatory Building:[facility] Repository 08/09/2017 [id number] Ambulatory [facility] ding:LABSPEC Repository 08/09/2017/08/10/19 [id number] Ambulatory BMSBuilding: [place] 18 BMS.WSA [facility] Repository 08/06/2017 [id number] Ambulatory BMSBuilding: [place] BMS.CF.[facility] Repository 08/02/2017 [id number] Ambulatory [facility] ding:LABSPEC Repository 08/02/2017/08/03/19 [id number] Ambulatory BMSBuilding: [place] 18 BMS.[facility] Repository 08/02/2017 [id number] Ambulatory BMSBuilding: [facility] Repository 07/26/2017/08/01/19 [id number] Ambulatory [address] ding:WC Repository 07/26/2017 [id number] Ambulatory BMSBuilding: [facility] Repository 07/24/2017 [id number] Ambulatory [facility] ding:POLAB3 Repository 07/19/2017 [id number] Ambulatory BMSBuilding: [facility] Repository 07/12/2017 [id number] Ambulatory BMSBuilding: [facility] Repository 07/05/2017 [id number] Ambulatory BMSBuilding: [facility] Repository 06/07/2017/07/04/19 [id number] Ambulatory [address] ding: Repository 05/31/2017/06/03/20 [id number] Ambulatory [address] ding:WC Repository 05/24/2017 [id number] Ambulatory BMSBuilding: [facility] Repository 05/23/2017 [id number] Ambulatory [facility] ding:POLAB3 Repository PAYERS PAYERS ENCOUNTER GUARANTOR PAYER SUBSCRIBER SOURCE 05/15/2018 CHARISSA Pineda Primary CHARISSA Mariaoster [id number] Insurance:MEDICARE YANA: [facility] PART A BPolicy [id number] Number: Repository [address]Vkt: [phone] [id number] [phone] () Date:2018-05-03 05/15/2018 Secondary CHARISSA K [place] Insurance:AARPPolicy [place]OB: Community Number: [id number] Hospital [id number] Repository Date:9403-13-47NQ [address], [place] [address]SP: 05/15/2018 Tertiary NOT GIVENUNK [place] Insurance:SELF PAY [facility] Number: Effective Repository Date:2018-05-14 05/15/2018 CHARISSA K Primary CHARISSA K [place] [id number] Insurance:MEDICARE [place]OB: Community [place] [facility] [id number] Number: Repository [address]Sud: [phone]) [id number] [phone] () Date:2018-05-03 05/15/2018 Secondary CHARISSA K [place] Insurance:AARPPolicy [place]DOB: Community Number: [id number] Hospital [id number] Repository Date:9631-35-00HP [address]JJ, [place] [address]GS: 05/15/2018 Tertiary NOT GIVENUNK [place] Insurance:SELF PAY [facility] Number: Effective Repository Date:2018-05-15 05/15/2018 CHARISSA K Primary CHARISSA K [place] [id number] Insurance:MEDICARE [place]DOB: Community [place] [facility] [id number] Number: Repository [address]Mfv: 330 [id number] [phone] () Date:2018-05-03 05/15/2018 Secondary CHARISSA K [place] Insurance:AARPPolicy [place]OM[place]DOB: Community Number: [id number] Hospital [id number] Repository Date:8389-30-66KW [address], [place] [address]RQ: 05/15/2018 Tertiary NOT GIVENUNK [place] Insurance:SELF PAY [facility] Number: Effective Repository Date:2018-05-15 05/15/2018 CHARISSA K Primary CHARISSA K [place] [id number] Insurance:MEDICARE [place]DOB: Community [place] [facility] [id number], [place] Number: Repository [address]Sps: 330 [id number] [phone] (HP) Date:2018-05-03 05/15/2018 Secondary CHARISSA K [place] Insurance:AARPPolicy [place]DOB: Community Number: [id number] Hospital [id number] Repository Date:4397-44-94EV [facility] [address], [place] [address]PW: 05/15/2018 Tertiary NOT GIVENUNK [place] Insurance:SELF PAY [facility] Number: Effective Repository Date:2018-05-15 05/15/2018 CHARISSA K Primary CHARISSA K [place] [id number] Insurance:MEDICARE [place]DOB: Community [place] [facility] [id number] [place] Number: Repository [id number]: 330 [id number] [phone] (HP) Date:2018-05-03 05/15/2018 Secondary CHARISSA K [place] Insurance:AARPPolicy MALLORIEGOMERYDOB: Community Number: [id number] Hospital [id number] Repository Date:3137-13-17HF [address]WQUVQTM, [place] [address]NL: 05/15/2018 Tertiary NOT GIVENUNK [place] Insurance:SELF PAY [facility] Number: Effective Repository Date:2018-05-15 05/15/2018 CHARISSA K Primary CHARISSA K [place] [id number] Insurance:MEDICARE [place]DOB: Community [place] [facility] [id number] Number: Repository [address]Kjo: 330 [id number] [phone] (HP) Date:2018-05-03 05/15/2018 Secondary CHARISSA K [place] Insurance:AARPPolicy MALLORIEGOMERYDOB: Community Number: [id number] Hospital [id number] Repository Date:8050-67-45XW [facility] [address]20[place], [place] [address]HL: 05/15/2018 Tertiary NOT GIVENUNK [place] Insurance:SELF PAY [facility] Number: Effective Repository Date:2018-05-15 05/15/2018 CHARISSA K Primary CHARISSA K [place] [id number] Insurance:MEDICARE [facility]: Community [place] [facility] [id number], [place] Number: Repository [address]Onv: [phone] [id number] [phone] () Date:2018-05-03 05/15/2018 Secondary CHARISSA K [place] Insurance:AARPPolicy [place]OM[place]DOB: Community Number: [id number] Hospital [id number] Repository Date:8845-61-47PI [address]PCGGJJS, [place] [address]SV: 05/15/2018 Tertiary NOT GIVENUNK [place] Insurance:SELF PAY [facility] Number: Effective Repository Date:2018-05-03 05/15/2018 CHARISSA K Primary CHARISSA K [place] [id number] Insurance:[facility]: [facility] [place] [facility] [id number], [place] Number: Repository [id number]: [phone] () e Date:2017-07-05 05/15/2018 Secondary CHARISSA K [place] Insurance:AARPPolicy [place]DOB: Community Number: [id number] Hospital [id number] Repository Date:5748-09-16SF [address]RFDZCPY, [place] [address]ED: 05/15/2018 Tertiary NOT GIVENUNK [place] Insurance:SELF PAY [facility] Number: Effective Repository Date:2018-05-04 05/08/2018 CHARISSA K Primary CHARISSA K [place] [id number] Insurance:MEDICARE [facility]: Community [place] [facility] [id number] [place] Number: Repository [address]Pgn: 330 [id number] [phone] (HP) Date:2006-09-02 05/08/2018 Secondary CHARISSA K [place] Insurance:AARPPolicy MALLORIEGOMERYDOB: Community Number: [id number] Hospital [id number] Repository Date:6656-29-44CW [address], [place] [address]PP: 05/08/2018 Tertiary NOT GIVENUNK [place] Insurance:SELF PAY [facility] Number: Effective Repository Date:2018-05-02 05/01/2018 CHARISSA K Primary CHARISSA K [place] [id number] Insurance:MEDICARE MALLORIEGOMERYDOB: Community [place] [facility] [id number] [place] Number: Repository [address]Aex: 330 [id number] [phone] () Date:2018-05-01 05/01/2018 Secondary CHARISSA K [place] Insurance:AARPPolicy EMMAYDOB: Community Number: [id number] Hospital [id number] Repository Date:7757-08-92YI [address]JSFMWZE, [place] [address]DH: 05/01/2018 Tertiary NOT GIVENUNK [place] Insurance:SELF PAY [facility] Number: Effective Repository Date:2018-05-01 05/01/2018 CHARISSA K Primary NOT GIVENUNK [place] [id number] Insurance:SELF PAY [facility] [place] [facility] Number: Effective Repository [phone]: (330) Date:2018-04-04 [phone] (HP) 04/30/2018 CHARISSA K Primary CHARISSA K [place] [id number] Insurance:MEDICARE VITOMERYDOB: Community [place] PART A [facility] [id number] [place] Number: Repository [address]Yij: 330 [id number] [phone] (HP) Date:2018-04-24 04/30/2018 Secondary CHARISSA K [place] Insurance:AARPPolicy [place]DOB: Community Number: [id number] Hospital [id number] Repository Date:9835-31-94CE [address]JB[place]AVJ, [place] [address]RR: 04/30/2018 Tertiary NOT GIVENUNK [place] Insurance:SELF PAY Community [facility] Number: Effective Repository Date:2018-04-24 04/24/2018 CHARISSA K Primary CHARISSA K [place] [id number] Insurance:MEDICARE [place]DOB: Community [place] [facility] [id number] Number: Repository [address]Aov: [phone] [id number] [phone] () Date:2018-05-01 04/24/2018 Secondary CHARISSA K [place] Insurance:AARPPolicy [place]DOB: Community Number: [id number] Hospital [id number] Repository Date:6368-54-73OZ [address], [place] [address]VO: 04/24/2018 Tertiary NOT GIVENUNK [place] Insurance:SELF PAY [facility] Number: Effective Repository Date:2018-04-24 04/22/2018 CHARISSA K Primary CHARISSA K [place] [id number] Insurance:MEDICARE [place]DOB: Community [place] [facility] [id number] [place] Number: Repository [address]Bcp: 330 [id number] [phone] () Date:2018-05-01 04/22/2018 Secondary CHARISSA K [place] Insurance:AARPPolicy [place]DOB: Community Number: [id number] Hospital [id number] Repository Date:4562-08-36ZR [address], [place] [address]JW: 04/22/2018 Tertiary NOT GIVENUNK [place] Insurance:SELF PAY Community [facility] Number: Effective Repository Date:2018-04-22 04/22/2018 CHARISSA K Primary CHARISSA K [place] [id number] Insurance:MEDICARE [place]DOB: Community [place] BPolicy [id number], [place] Number: Repository [address]Nno: 330 [id number] [phone] (HP) Date:2018-04-19 04/22/2018 Secondary CHARISSA K Rigoberto Insurance:AARPPolicy MALLORIEGOMERYDOB: Community Number: [id number] Hospital [id number] Repository Date:3982-75-67[address]IBTKZIA, [place] [address]NT: 04/22/2018 Tertiary NOT GIVENUNK [place] Insurance:SELF PAY [facility] Number: Effective Repository Date:2018-04-19 04/19/2018 CHARISSA K Primary CHARISSA K [place] [id number] Insurance:MEDICARE MONTGOMERYDOB: Community [place] [facility] [id number] [place] Number: Repository [address]Pba: 330 [id number] [phone] () Date:2018-04-17 04/19/2018 Secondary CHARISSA K [place] Insurance:AARPPolicy VITOMERYDOB: Community Number: [id number] Hospital [id number] Repository Date:1130-87-49VI [facility] 003058TYZBDFF, [place] [address]AT: 04/19/2018 Tertiary NOT GIVENUNK Rigoberto Insurance:SELF PAY [facility] Number: Effective Repository Date:2018-04-18 04/16/2018 CHARISSA K Primary CHARISSA K Rigoberto [id number] Insurance:MEDICARE MONTGOMERYDOB: Community [place] olicy [id number] Number: Repository [address]Ojz: 330 [id number] [phone] (HP) Date:2018-04-02 04/16/2018 Secondary CHARISSA K [place] Insurance:AARPPolicy MALLORIEGOMERYDOB: Community Number: [id number] Hospital [id number] Repository Date:2640-80-47YF [address]BQOUNLI, [place] [address]KN: 04/16/2018 Tertiary NOT GIVENUNK [place] Insurance:SELF PAY [facility] Number: Effective Repository Date:2018-04-02 04/15/2018 CHARISSA K Primary CHARISSA K Rigoberto [id number] Insurance:MEDICARE MONTGOMERYDOB: Community [place] [facility] [id number], [place] Number: Repository [address]Ctw: [phone] [id number] [phone] () Date:2018-04-02 04/15/2018 Secondary CHARISSA K [place] Insurance:AARPPolicy MALLORIEGOMERYDOB: Community Number: [id number] Hospital [id number] Repository Date:5977-29-21QT [address]JBTQYYU, [place] [address]MN: 04/15/2018 Tertiary NOT GIVENUNK Rigoberto Insurance:SELF PAY [facility] Number: Effective Repository Date:2018-04-15 04/10/2018 CHARISSA K Primary CHARISSA K [place] [id number] Insurance:MEDICARE MONTGOMERYDOB: Community [place] [facility] [id number] Number: Repository [address]Jia: [phone] [id number] [phone] () Date:2018-05-01 04/10/2018 Secondary CHARISSA K [place] Insurance:AARPPolicy VITOMERYDOB: Community Number: [id number] Hospital [id number] Repository Date:4013-50-79NH [address]TQQUNDS, [place] [address]DT: 04/10/2018 Tertiary NOT GIVENUNK [place] Insurance:SELF PAY [facility] Number: Effective Repository Date:2018-04-10 04/03/2018 CHARISSA K Primary CHARISSA K [place] [id number] Insurance:MEDICARE MONTGOMERYDOB: Community [place] [facility] [id number][place] Number: Repository [address]Vlq: [phone]-AEffectiv [phone] () e Date:2017-07-05 04/03/2018 Secondary CHARISSA K Rigober[place] Insurance:AARPPolicy MALLORIEGOMERYDOB: Community Number: [id number] Hospital [id number] Repository Date:3086-86-25IS [facility] 047063PAAJMOF, [place] [address]HK: 04/03/2018 Tertiary NOT GIVENUNK [place] Insurance:SELF PAY [facility] Number: Effective Repository Date:2018-03-04 04/03/2018 CHARISSA K Primary CHARISSA K [place] [id number] Insurance:MEDICARE MONTGOMERYDOB: Community [place] [facility] [id number], [place] Number: Repository [address]Sdn: [phone] [phone] () e Date:2017-07-05 04/03/2018 Secondary CHARISSA K [place] Insurance:AARPPolicy MONTGOMERYDOB: Community Number: [id number] Hospital [id number] Repository Date:6331-71-13AP [address]HJVMTRW, [place] [address]YE: 04/03/2018 Tertiary NOT GIVENUNK Rigoberto Insurance:SELF PAY [facility] Number: Effective Repository Date:2018-04-03 03/28/2018 CHARISSA K Primary CHARISSA K Rigoberto [id number] Insurance:MEDICARE MONTGOMERYDOB: Community [place] [facility] [id number] [place] Number: Repository [address]Asu: [phone] () e Date:2018-03-28 03/28/2018 Secondary CHARISSA K Rigober[place] Insurance:AARPPolicy MONTGOMERYDOB: Community Number: [id number] Hospital [id number] Repository Date:2514-77-60TZ [facility] 548018VWNYYQX, [place] [address]WZ: 03/28/2018 Tertiary NOT GIVENUNK Rigoberto Insurance:SELF PAY Community [facility] Number: Effective Repository Date:2018-03-28 03/27/2018 CHARISSA K Primary CHARISSA K Rigoberto [id number] Insurance:MEDICARE MONTGOMERYDOB: Community [place] olicy [id number] [place] Number: Repository [address]Fpr: [phone]-AEffectiv [phone] () e Date:2017-07-05 03/27/2018 Secondary CHARISSA K [place] Insurance:AARPPolicy MONTGOMERYDOB: Community Number: [id number] Hospital [id number] Repository Date:9512-84-73WJ [address]RTPQXUP, [place] [address]RS: 03/27/2018 Tertiary NOT GIVENUNK [place] Insurance:SELF PAY [facility] Number: Effective Repository Date:2018-03-27 03/20/2018 CHARISSA K Primary CHARISSA K [place] [id number] Insurance:MEDICARE MONTGOMERYDOB: Community [place] [facility] [id number] Parker [place] Number: Repository [address]Gnk: [phone]-AEffectiv [phone] () e Date:2017-07-05 03/20/2018 Secondary CHARISSA K [place] Insurance:AARPPolicy MONTGOMERYDOB: Community Number: [id number] Hospital [id number] Repository Date:4237-27-83KQ [address]XYOKUYB, [place] [address]ZT: 03/20/2018 Tertiary NOT GIVENUNK Rigoberto Insurance:SELF PAY Community [facility] Number: Effective Repository Date:2018-03-20 03/11/2018 CHARISSA K Primary CHARISSA K [place] [id number] Insurance:MEDICARE MONTGOMERYDOB: Community [place] [facility] [id number] [facility] [place] Number: Repository [address]Fab: [phone] [id number] [phone] () Date:2017-07-05 03/11/2018 Secondary CHARISSA K [place] Insurance:AARPPolicy MALLORIEGOMERYDOB: Community Number: [id number] Hospital [id number] Repository Date:5437-06-48BI [facility] 719477KFFLHQY, [place] [address]ON: 03/11/2018 Tertiary NOT GIVENUNK [place] Insurance:SELF PAY [facility] Number: Effective Repository Date:2018-03-11 03/06/2018 CHARISSA K Primary CHARISSA K Rigoberto [id number] Insurance:MEDICARE MONTGOMERYDOB: Community [place] [facility] [id number][place] Number: Repository [address]Yzw: [phone] [phone] () e Date:2017-07-05 03/06/2018 Secondary CHARISSA K Rigober[place] Insurance:AARPPolicy VITOMERYDOB: Community Number: [id number] Hospital [id number] Repository Date:8806-66-57NS [address]RFWBBDX, [place] [address]SM: 03/06/2018 Tertiary NOT GIVENUNK Rigoberto Insurance:SELF PAY [facility] Number: Effective Repository Date:2018-03-06 02/27/2018 CHARISSA K Primary CHARISSA K Rigober[place] [id number] Insurance:MEDICARE MONTGOMERYDOB: Community [place] [facility] [id number] [place] Number: Repository 7[address]Zty: [phone] [phone] () e Date:2017-07-05 02/27/2018 Secondary CHARISSA K Rigoberto Insurance:AARPPolicy MALLORIEGOMERYDOB: Community Number: [id number] Hospital [id number] Repository Date:3638-07-28IJ [address]XAZURZD, [place] [address]MZ: 02/27/2018 Tertiary NOT GIVENUNK [place] Insurance:SELF PAY [facility] Number: Effective Repository Date:2018-02-02 02/27/2018 CHARISSA K Primary CHARISSA K [place] [id number] Insurance:MEDICARE [facility]AREGOMERYDOB: Community [place] [facility] [id number], [place] Number: Repository [address]Yvc: [phone]-AEffectiv [phone] () e Date:2017-07-05 02/27/2018 Secondary CHARISSA K [place] Insurance:AARPPolicy [facility]AREGOMERYDOB: Community Number: [id number] Hospital [id number] Repository Date:0217-04-93XR [address]YNLXXVO, [place] [address]RN: 02/27/2018 Tertiary NOT GIVENUNK Rigoberto Insurance:SELF PAY [facility] Number: Effective Repository Date:2018-02-27 02/20/2018 CHARISSA K Primary CHARISSA K Rigoberto [id number] Insurance:MEDICARE [facility] [place] [facility] [id number], [place] Number: Repository [address]Suu: [phone]-AEffectiv [phone] () e Date:2017-07-05 02/20/2018 Secondary CHARISSA K [place] Insurance:AARPPolicy [facility]ARE[facility]ERYD[facility]: Community Number: [id number] Hospital [id number] Repository Date:2729-02-36PP [address], [place] [address]OT: 02/20/2018 Tertiary NOT GIVENUNK Rigoberto Insurance:SELF PAY [facility] Number: Effective Repository Date:2018-02-20 02/19/2018 CHARISSA K Primary [facility]MED[facility]ARE [facility]ITAL[facility]: [place] AND [facility] Number: [id number] [facility] [id number] [place], [place] Date:1742-88-25JlirEast [place], [place] Repository [address]Gzm: (160) Name:CARE [id number]: () [phone] () 02/19/2018 Secondary CHARISSA K [facility] Insurance:Josh MILLANOB: University Number: [id number] [facility] [id number] [place] [facility] Date:2630-33-12AuswEast [place] Repository Name:MANAGED CARE [id number]: () 02/13/2018 CHARISSA K Primary CHARISSA K Rigoberto [id number] Insurance:MEDICARE [facility] HEALTH[facility]ERYD[facility]: Community TORREON [place] PART A [facility] [id number], [place] Number: Repository [address]Ycv: [phone]-AEffectiv [phone] () e Date:2017-07-05 02/13/2018 Secondary CHARISSA K [place] Insurance:Josh MILLANOB: Community Number: [id number] Hospital [id number] Repository Date:4320-33-98DE [facility] 249541DFVEFXV, [place] [address]ZL: 02/13/2018 Tertiary NOT GIVENUNK Rigoberto Insurance:SELF PAY [facility] Number: Effective Repository Date:2018-02-13 02/06/2018 CHARISSA K Primary CHARISSA K [place] [id number] Insurance:MEDICARE MONTGOMERYDOB: Community TORREON V[place] PART A [facility] [id number], [place] Number: Repository [address]Pid: [phone] [phone] () e Date:2017-07-05 02/06/2018 Secondary CHARISSA K Rigoberto Insurance:AARPPolicy YANAOB: Community Number: [id number] Hospital [id number] Repository Date:5850-28-69KZ [facility] 356097HZJTLGB, [place] [address]YM: 02/06/2018 Tertiary NOT GIVENUNK [place] Insurance:SELF PAY [facility] Number: Effective Repository Date:2018-02-06 01/31/2018 CHARISSA K Primary CHARISSA K [place] [id number] Insurance:MEDICARE MONTGOMERYDOB: Community [place] [facility] [id number] [place] Number: Repository [address]Wwi: [phone]-AEffectiv [phone] () e Date:2018-01-31 01/31/2018 Secondary CHARISSA K [place] Insurance:AARPPolicy MONTGOMERYDOB: Community Number: [id number] Hospital [id number] Repository Date:5835-26-56IG [address]SSAWEKL, [place] [address]FK: 01/31/2018 Tertiary NOT GIVENUNK Rigoberto Insurance:SELF PAY [facility] Number: Effective Repository Date:2018-01-31 01/30/2018 CHARISSA K Primary CHARISSA K Rigoberto [id number] Insurance:MEDICARE MONTGOMERYDOB: Community [place] [facility] [id number] [facility] Number: Repository [address]Jtz: [phone]-AEffectiv [phone] () e Date:2017-07-05 01/30/2018 Secondary CHARISSA K [place] Insurance:AARPPolicy MALLORIEGOMERYDOB: Community Number: [id number] Hospital [id number] Repository Date:5424-06-41RS [address]OBQARKK, [place] [address]CY: 01/30/2018 Tertiary NOT GIVENUNK Rigoberto Insurance:SELF PAY [facility] Number: Effective Repository Date:2018-01-02 01/30/2018 CHARISSA K Primary CHARISSA K Rigober[place] [id number] Insurance:MEDICARE MONTGOMERYDOB: Community [place] [facility] [id number] [facility] Number[place] Repository [address]Krn: [phone]-AEffectiv [phone] () e Date:2017-07-05 01/30/2018 Secondary CHARISSA K Rigober[place] Insurance:AARPPolicy MONTGOMERYDOB: Community Number: [id number] Hospital [id number] Repository Date:2181-49-47FZ [address]GRTPBVK, [place] [address]EZ: 01/30/2018 Tertiary NOT GIVENUNK [place] Insurance:SELF PAY [facility] Number: Effective Repository Date:2018-01-30 01/23/2018 CHARISSA K Primary CHARISSA K Rigoberto [id number] Insurance:MEDICARE MONTGOMERYDOB: Community [place] [facility] [id number], [place] Number: Repository [address]Nvv: [phone]-AEffectiv [phone] () e Date:2017-07-05 01/23/2018 Secondary CHARISSA K Rigoberto Insurance:AARPPolicy MONTGOMERYDOB: Community Number: [id number] Hospital [id number] Repository Date:6737-10-91JD [address]UOTKQAG, [place] [address]BJ: 01/23/2018 Tertiary NOT GIVENUNK Rigoberto Insurance:SELF PAY [facility] Number: Effective Repository Date:2018-01-23 01/16/2018 CHARISSA K Primary CHARISSA K Rigoberto [id number] Insurance:MEDICARE MONTGOMERYDOB: Community [place] [facility] [id number], [place] Number: Repository [address]Civ: [phone]-AEffectiv [phone] () e Date:2017-07-05 01/16/2018 Secondary CHARISSA K Rigoberto Insurance:AARPPolicy MONTGOMERYDOB: Community Number: [id number] Hospital [id number] Repository Date:9709-41-36DY [address]DSDSKYM, [place] [address]VE: 01/16/2018 Tertiary NOT GIVENUNK Rigoberto Insurance:SELF PAY [facility] Number: Effective Repository Date:2018-01-16 01/15/2018 CHARISSA K Primary CHARISSA K [facility] MONTGOMERYDOB: Insurance:MEDICARE A MONTGOMERYDOB: [place] AND [facility] Number: [id number] [facility] [id number] [place], [place] Date:6597-12-08Yjpu [place], [place] Repository [address]Exz: ([phone]) Name:CARE [id number]: () [phone] () 01/15/2018 Secondary CHARISSA K [facility] Insurance:AARPPolicy MONTGOMERYDOB: University Number: [id number] [facility] [id number] Date:1676-76-85Oscu [place] Repository Name:MANAGED CARE [id number]: () 01/09/2018 CHARISSA K Primary CHARISSA K Rigoberto [id number] Insurance:MEDICARE MONTGOMERYDOB: Community [place] [facility] [id number], [place] Number: Repository [address]Qvn: [phone]-AEffectiv [phone] () e Date:2017-07-05 01/09/2018 Secondary CHARISSA K Rigober[place] Insurance:AARPPolicy MONTGOMERYDOB: Community Number: [id number] Hospital [id number] Repository Date:7853-04-27HS [address]BEIFLAA, [place] [address]RF: 01/09/2018 Tertiary NOT GIVENUNK Rigoberto Insurance:SELF PAY Community [facility] Number: Effective Repository Date:2018-01-09 01/02/2018 CHARISSA K Primary CHARISSA K Rig[place] [id number] Insurance:MEDICARE MONTGOMERYDOB: Community [place] [facility] [id number], [place] Number: Repository [address]Zyf: [phone]) [phone]-AEffectiv [phone] () e Date:2017-07-05 01/02/2018 Secondary CHARISSA K [place] Insurance:AARPPolicy MONTGOMERYDOB: Community Number: [id number] Hospital [id number] Repository Date:3498-26-96CV [address]ITYEAYN, [place] [address]ZD: 01/02/2018 Tertiary NOT GIVENUNK Rigoberto Insurance:SELF PAY [facility] Number: Effective Repository Date:2018-01-02 12/26/2017 CHARISSA K Primary CHARISSA K Rig[place] [id number] Insurance:MEDICARE MONTGOMERYDOB: Community [place] [facility] [id number], [place] Number: Repository [address]Xvo: [phone]-AEffectiv [phone] () e Date:2017-07-05 12/26/2017 Secondary CHARISSA K Rigober[place] Insurance:AARPPolicy MONTGOMERYDOB: Community Number: [id number] Hospital [id number] Repository Date:2652-79-47HF [address]HOKDJWT, [place] [address]YF: 12/26/2017 Tertiary NOT GIVENUNK Rigoberto Insurance:SELF PAY [facility] Number: Effective Repository Date:2017-12-02 12/26/2017 CHARISSA K Primary CHARISSA K [place] [id number] Insurance:MEDICARE MONTGOMERYDOB: Community [place] [facility] [id number], [place] Number: Repository [address]Zge: [phone]-AEffectiv [phone] () e Date:2017-07-05 12/26/2017 Secondary CHARISSA K [place] Insurance:AARPPolicy MONTGOMERYDOB: Community Number: [id number] Hospital [id number] Repository Date:1286-57-32QR [address]QGADEDC, [place] [address]RL: 12/26/2017 Tertiary NOT GIVENUNK Rigoberto Insurance:SELF PAY [facility] Number: Effective Repository Date:2017-12-26 12/10/2017 CHARISSA K Primary CHARISSA K [facility] MONTGOMERYDOB: Insurance:MEDICARE A MALLORIEMERYDOB: University AND BPolicy Number: [id number] [facility] Medical [place] [id number] [place], [place] Date:1000-51-14Xpcf [place] Repository [address]Zif: (330) Name:CARE [id number]: (HP) [phone] () 12/10/2017 Secondary CHARISSA K [facility] Insurance:AARPPolicy [facility]IOR[facility] HEALTHYESICAYDOB: University Number: [id number] [facility] [id number] [place] [facility] Date:0190-35-59Hlvd [place] Repository Name:MANAGED CARE [id number]: () 11/26/2017 CHARISSA K Primary CHARISSA K [facility] MONTGOMERYDOB: Insurance:MEDICARE A MALLORIEMERYDOB: [place] AND BPolicy Number: [id number] [facility] [id number] [place] Date:4232-95-18Utnq [place] Repository [address]Yfi: ([phone]) Name:CARE [id number]: (HP) [phone] () 11/26/2017 Secondary CHARISSA K [facility] Insurance:AARPPolicy EMMAYDOB: University Number: [id number] [facility] [id number] [place] Date:0304-55-72Gdst [place] Repository Name:MANAGED CARE [id number]: () 11/26/2017 CHARISSA K Primary CHARISSA K [facility] MONTGOMERYDOB: Insurance:MEDICARE A MALLORIEMERYDOB: [place] AND BPolicy Number: [id number] [facility] [place] [id number] [place] Date:1848-05-46Hwhl [place], [place] Repository [address]Alv: ([phone]) Name:CARE [id number]: (HP) [phone] (HP) 11/26/2017 Secondary CHARISSA K [facility] Insurance:AARPPolicy YANAOB: University Number: [id number] [facility] [id number] [facility] [place] [facility] Date:8117-96-00Cprv [place], [place] Repository Name:MANAGED CARE [id number]: () 11/21/2017 CHARISSA K Primary CHARISSA K [place] [id number] Insurance:MEDICARE [facility]IOR[facility] HEALTHMERYDOB: Community [place] [facility] [id number], [place] Number: Repository [address]Vxg: [phone]-AEffectiv [phone] () e Date:2017-07-05 11/21/2017 Secondary CHRAISSA K Rig[place]to Insurance:AARPPolicy VITOMERYDOB: Community Number: [id number] Hospital [id number] Repository Date:6984-50-88YB [address]URULVFN, [place] [address]RS: 11/21/2017 Tertiary NOT GIVENUNK Rigoberto Insurance:SELF PAY [facility] Number: Effective Repository Date:2017-11-02 11/14/2017 CHARISSA K Primary CHARISSA K [place] [id number] Insurance:MEDICARE MONTGOMERYDOB: Community [place] [facility] [id number], [place] Number: Repository [address]Owh: [phone]-AEffectiv [phone] () e Date:2017-07-05 11/14/2017 Secondary CHARISSA K [place] Insurance:AARPPolicy MALLORIEGOMERYDOB: Community Number: [id number] Hospital [id number] Repository Date:7861-45-29RR [address]PVVKUNP, [place] [address]XX: 11/14/2017 Tertiary NOT GIVENUNK Rigoberto Insurance:SELF PAY Community [facility] Number: Effective Repository Date:2017-11-14 11/07/2017 CHARISSA K Primary CHARISSA K [place] [id number] Insurance:MEDICARE MONTGOMERYDOB: Community [place] [facility] [id number] [place] Number[place] Repository [address]Ouu: [phone]-AEffectiv [phone] () e Date:2017-07-05 11/07/2017 Secondary CHARISSA K [place] Insurance:AARPPolicy MONTGOMERYDOB: Community Number: [id number] Hospital [id number] Repository Date:7313-21-26QW [address]CQEZWIG, [place] [address]DQ: 11/07/2017 Tertiary NOT GIVENUNK Rigoberto Insurance:SELF PAY Community [facility] Number: Effective Repository Date:2017-11-07 10/31/2017 CHARISSA K Primary CHARISSA K [place] [id number] Insurance:MEDICARE MONTGOMERYDOB: Community [place] [facility] [id number] [facility] Number[place] Repository [address]Siy: [phone]-AEffectiv [phone] () e Date:2017-07-05 10/31/2017 Secondary CHARISSA K [place] Insurance:AARPPolicy MONTGOMERYDOB: Community Number: [id number] Hospital [id number] Repository Date:8724-79-86JU [address]FZFNTGX, [place] [address]HM: 10/31/2017 Tertiary NOT GIVENUNK [place] Insurance:SELF PAY Community [facility] Number: Effective Repository Date:2017-10-02 10/31/2017 CHARISSA K Primary CHARISSA K Rigoberto [id number] Insurance:MEDICARE [place]TGOM[place]DOB: Community [place] [facility] [id number] [facility] Number: Repository [address]Cxo: [phone]-AEffectiv [phone] () e Date:2017-07-05 10/31/2017 Secondary CHARISSA K [place] Insurance:AARPPolicy MALLORIEGOMERYDOB: Community Number: [id number] Hospital [id number] Repository Date:0777-06-13AO [facility] 875773MHDQCHJ, [place] [address]CH: 10/31/2017 Tertiary NOT GIVENUNK Rigoberto Insurance:SELF PAY Community [facility] Number: Effective Repository Date:2017-10-31 10/24/2017 CHARISSA K Primary CHARISSA K [place] [id number] Insurance:MEDICARE MONTGOMERYDOB: Community [place] [facility] [id number] Number: Repository [address]Biy: [phone]-[phone] [phone] () e Date:2017-07-05 10/24/2017 Secondary CHARISSA K [place] Insurance:AARPPolicy MALLORIEGOMERYDOB: Community Number: [id number] Hospital [id number] Repository Date:7794-36-64[address]KWUPUIF, [place] [address]UB: 10/24/2017 Tertiary NOT GIVENUNK [place] Insurance:SELF PAY [facility] Number: Effective Repository Date:2017-10-24 10/24/2017 CHARISSA K Primary CHARISSA K Rigober[place] [id number] Insurance:MEDICARE MONTGOMERYDOB: Community [place] [facility] [id number] Number: Repository [address]Xcx: [phone]-AEffectiv [phone] () e Date:2017-07-05 10/24/2017 Secondary CHARISSA K [place] Insurance:AARPPolicy MONTGOMERYDOB: Community Number: [id number] Hospital [id number] Repository Date:1365-37-43WY [facility] 232664HCTHLFM, [place] [address]QI: 10/24/2017 Tertiary NOT GIVENUNK Rigoberto Insurance:SELF PAY Community [facility] Number: Effective Repository Date:2017-10-24 10/23/2017 CHARISSA K Primary CHARISSA K [facility] MONTGOMERYDOB: Insurance:MEDICARE A [facility]: [place] AND [facility] Number: [id number] [facility] [id number] [place], [place] Date:1757-13-47Dfqa [place], [place] Repository [address]Xti: [phone]) Name:CARE [id number]: () [phone] () 10/23/2017 Secondary CHARISSA K [facility] Insurance:AARolicy [facility]: [place] Number: [id number] [facility] [id number] Surgical [facility] Date:1813-42-54Vazx [place] Repository Name:MANAGED CARE [id number]: () 10/22/2017 CHARISSA K Primary CHARISSA K [place] [id number] Insurance:MEDICARE [facility] HEALTHMERYDOB: Community [place] [facility] [id number][place] Number: Repository [address]Kmq: [phone]-AEffectiv [phone] () e Date:2017-10-22 10/22/2017 Secondary CHARISSA K [place] Insurance:AARolicHill Crest Behavioral Health ServicesYDOB: [facility] Number: [id number] Hospital [id number] Repository Date:6848-23-79QN [address]KASBGJI, [place] [address]ZA: 10/22/2017 Tertiary NOT GIVENUNK [place] Insurance:SELF PAY [facility] Number: Effective Repository Date:2017-10-22 10/17/2017 CHARISSA K Primary CHARISSA K [place] [id number] Insurance:MEDICARE [facility]IOR[facility] HEALTHMERYDOB: Community [place] [facility] [id number] Number: Repository [address]Hjk: [phone]-AEffectiv [phone] (HP) e Date:2017-07-05 10/17/2017 Secondary CHARISSA K [place] Insurance:AARPPolicy MALLORIEGOMERYDOB: Community Number: [id number] Hospital [id number] Repository Date:2255-34-83ZN [address]SZSOLKI, [place] [address]EN: 10/17/2017 Tertiary NOT GIVENUNK Rigoberto Insurance:SELF PAY Community [facility] Number: Effective Repository Date:2017-10-17 10/11/2017 CHARISSA K Primary CHARISSA K [place] [id number] Insurance:MEDICARE MONTGOMERYDOB: Community [place] [facility] [id number] Number: Repository [address]Ltf: [phone]-AEffectiv [phone] () e Date:2017-07-05 10/11/2017 Secondary CHARISSA K [place] Insurance:AARPPolicy MALLORIEGOMERYDOB: Community Number: [id number] Hospital [id number] Repository Date:5182-59-42JJ [address]GFTNGGM, [place] [address]XD: 10/11/2017 Tertiary NOT GIVENUNK Rigoberto Insurance:SELF PAY [facility] Number: Effective Repository Date:2017-10-11 10/04/2017 CHARISSA K Primary CHARISSA K [place] [id number] Insurance:MEDICARE MONTGOM[place]DOB: Community [place] [facility] [id number] [facility] [place] Number: Repository [address]Ewu: [phone]-AEffectiv [phone] () e Date:2017-07-05 10/04/2017 Secondary CHARISSA K [place] Insurance:AARPPolicy MONTGOMERYDOB: Community Number: [id number] Hospital [id number] Repository Date:3910-95-36AF [address]DIIWDOG, [place] [address]HY: 10/04/2017 Tertiary NOT GIVENUNK [place] Insurance:SELF PAY Community [facility] Number: Effective Repository Date:2017-10-04 09/27/2017 CHARISSA K Primary CHARISSA K Rig[place] [id number] Insurance:MEDICARE MONTGOM[place]DOB: Community [place] [facility] [id number] [facility] Number[place] Repository [address]Kao: [phone]-AEffectiv [phone] () e Date:2017-07-05 09/27/2017 Secondary CHARISSA K [place] Insurance:AARPPolicy MONTGOMERYDOB: Community Number: [id number] Hospital [id number] Repository Date:6040-24-51BF [address]NJURKSD, [place] [address]EU: 09/27/2017 Tertiary NOT GIVENUNK Rigoberto Insurance:SELF PAY [facility] Number: Effective Repository Date:2017-09-02 09/27/2017 CHARISSA K Primary CHARISSA K [place] [id number] Insurance:MEDICARE MONTGOMERYDOB: Community [place] [facility] [id number] [facility] Number: Repository [address]Ton: [phone] () e Date:2017-07-05 09/27/2017 Secondary CHARISSA K [place] Insurance:AARPPolicy MONTGOMERYDOB: Community Number: [id number] Hospital [id number] Repository Date:8684-70-83UR [address]OWZWRXT, [place] [address]DU: 09/27/2017 Tertiary NOT GIVENUNK [place]ober[place] Insurance:SELF PAY [facility] Number: Effective Repository Date:2017-09-27 09/20/2017 CHARISSA K Primary CHARISSA K [place] [id number] Insurance:MEDICARE MON[place]OM[place]DOB: Community [place] [facility] [id number] [facility] Number: Repository [address]Aof: [phone]-AEffectiv [phone] () e Date:2017-07-05 09/20/2017 Secondary CHARISSA K [place] Insurance:AARPPolicy MONTGOM[place]DOB: Community Number: [id number] Hospital [id number] Repository Date:4285-45-96FR [address]MKZWWVR, [place] [address]YC: 09/20/2017 Tertiary NOT GIVENUNK Rigober[place] Insurance:SELF PAY [facility] Number: Effective Repository Date:2017-09-20 09/06/2017 CHARISSA K Primary CHARISSA K [place] [id number] Insurance:MEDICARE MONTGOMERYDOB: Community [place] [facility] [id number], [place] Number: Repository [address]Jww: [phone]-AEffectiv [phone] () e Date:2017-07-05 09/06/2017 Secondary CHARISSA K [place] Insurance:AARPPolicy MONTGOMERYDOB: Community Number: [id number] Hospital [id number] Repository Date:4156-44-14WV [address]RMXRFYN, [place] [address]YI: 09/06/2017 Tertiary NOT GIVENUNK [place] Insurance:SELF PAY [facility] Number: Effective Repository Date:2017-09-06 08/29/2017 CHARISSA K Primary CHARISSA K Rigoberto [id number] Insurance:MEDICARE MONTGOMERYDOB: Community [place] [facility] [id number] [place] Number: Repository [address]Rck: 330 [phone] [phone] () e Date:2017-07-05 08/29/2017 Secondary CHARISSA K [place] Insurance:AARPPolicy MONTGOMERYDOB: Community Number: [id number] Hospital [id number] Repository Date:0823-35-02LP [address]AJXEXMB, [place] [address]KT: 08/29/2017 Tertiary NOT GIVENUNK [place] Insurance:SELF PAY [facility] Number: Effective Repository Date:2017-08-02 08/29/2017 CHARISSA K Primary CHARISSA K [place] [id number] Insurance:MEDICARE MONTGOMERYDOB: Community [place] [facility] [id number] [place] Number: Repository [address]Dfd: [phone]-AEffectiv [phone] (HP) e Date:2017-07-05 08/29/2017 Secondary CHARISSA K [place] Insurance:AARPPolicy MONTGOM[place]DOB: Community Number: [id number] Hospital [id number] Repository Date:6866-93-08CF [address]GJVINIQ, [place] [address]TV: 08/29/2017 Tertiary NOT GIVENUNK [place]ober[place] Insurance:SELF PAY [facility] Number: Effective Repository Date:2017-08-29 08/27/2017 CHARISSA K Primary CHARISSA K [place] [id number] Insurance:MEDICARE MONTGOMERYDOB: Community [place] [facility] [id number] [facility] Number: Repository [address]Fnv: [phone] [id number] [phone] (HP) Date:2017-08-13 08/27/2017 Secondary CHARISSA K [place] Insurance:AARPPolicy MONTGOM[place]DOB: Community Number: [id number] Hospital [id number] Repository Date:8467-84-80WL [address]WODYFIS, [place] [address]JH: 08/27/2017 Tertiary NOT GIVENUNK [place] Insurance:SELF PAY [facility] Number: Effective Repository Date:2017-08-13 08/27/2017 CHARISSA K Primary CHARISSA K [place] [id number] Insurance:MEDICARE MONTGOM[place]DOB: Community [place] [facility] [id number] [facility] Number: Repository [address]Ltu: [phone] [id number] [phone] (HP) Date:2017-08-13 08/27/2017 Secondary CHARISSA K [place] Insurance:AARPPolicy MONTGOM[place]DOB: Community Number: [id number] Hospital [id number] Repository Date:8862-71-14SK [address]NYZMTEI, [place] [address]OD: 08/27/2017 Tertiary NOT GIVENUNK [place] Insurance:SELF PAY [facility] Number: Effective Repository Date:2017-08-27 08/23/2017 CHARISSA K Primary CHARISSA K [place] [id number] Insurance:MEDICARE MONTGOMERYDOB: Community [place] [facility] [id number], [place] Number: Repository [address]Cey: [phone] [id number] [phone] () Date:2017-07-05 08/23/2017 Secondary CHARISSA K [place] Insurance:AARPPolicy MONTGOM[place]DOB: Community Number: [id number] Hospital [id number] Repository Date:3524-14-46BP [address]UQVHHUU, [place] [address]ID: 08/23/2017 Tertiary NOT GIVENUNK Rigoberto Insurance:SELF PAY [facility] Number: Effective Repository Date:2017-08-23 08/21/2017 CHARISSA K Primary CHARISSA K [place] [id number] Insurance:MEDICARE [place]DOB: Community [place] [facility] [id number] [place] Number: Repository [address]Aab: 330 [id number] [phone] () Date:2017-08-09 08/21/2017 Secondary CHARISSA K [place] Insurance:AARPPolicy MONTGOM[place]DOB: Community Number: [id number] Hospital [id number] Repository Date:7094-55-82CD [address]YMQUMAX, [place] [address]AS: 08/21/2017 Tertiary NOT GIVENUNK [place] Insurance:SELF PAY [facility] Number: Effective Repository Date:2017-08-09 08/21/2017 CHARISSA K Primary CHARISSA K [place] [id number] Insurance:MEDICARE MONTG[place]DOB: Community [place] [facility] [id number], [place] Number: Repository [address]Nxp: [phone] [id number] [phone] (HP) Date:2017-08-09 08/21/2017 Secondary CHARISSA K [place] Insurance:AARPPolicy [place]TGOM[place]DOB: Community Number: [id number] Hospital [id number] Repository Date:4872-27-91[address]IOCVTEP, [place] [address]IG: 08/21/2017 Tertiary NOT GIVENUNK Rigoberto Insurance:SELF PAY [facility] Number: Effective Repository Date:2017-08-21 08/19/2017 Charissa K Primary [facility] K [facility]:HumanaPolic [facility] CentermeryDOB: System y Number: Effective [id number] Repository [place] Date: [place], [place] [address]Rvc: (HP) 08/16/2017 CHARISSA K Primary CHARISSA K Rigoberto [id number] Insurance:MEDICARE MONTGOMERYDOB: Community [place] [facility] [id number] [place] Number: Repository [address]Bmx: 330 [id number] [phone] (HP) Date:2017-07-05 08/16/2017 Secondary CHARISSA K [place] Insurance:AARPPolicy [facility] HEALTHMERYDOB: Community Number: [id number] Hospital [id number] Repository Date:0852-46-56VK [address]QXTAGYK, [place] [address]QC: 08/16/2017 Tertiary NOT GIVENUNK [place] Insurance:SELF PAY [facility] Hospital Number: Effective Repository Date:2017-08-16 08/09/2017 CHARISSA K Primary CHARISSA K [place] [id number] Insurance:MEDICARE [facility] CAREGOMERYDOB: Community [place] [facility] [id number] [place] Number: Repository [address]Ccq: [phone] [id number] [phone] (HP) Date:2017-08-02 08/09/2017 Secondary CHARISSA K [place] Insurance:AARPPolicy MALLORIEGOMERYDOB: Community Number: [id number] Hospital [id number] Repository Date:4420-08-20MV [address]WVCTGQI, [place] [address]PU: 08/09/2017 Tertiary NOT GIVENUNK [place] Insurance:SELF PAY [facility] Number: Effective Repository Date:2017-08-02 08/09/2017 CHARISSA K Primary CHARISSA K [facility] MONTGOMERYDOB: Insurance:MEDICARE A [facility] HEALTHMERYDOB: [place] AND [facility] Number: [id number] [facility] [id number] [place], [place] Date:0425-80-68Srpq [place], [place] Repository [address]Xjo: ([phone]) Name:CARE [id number]: () [phone] () 08/09/2017 Secondary CHARISSA K [facility] Insurance:AARPPolicy MALLORIEGOMERYDOB: [place] Number: [id number] [facility] [id number] Health Medical [facility] Date:5908-10-58Oiml [place] Repository Name:MANAGED CARE [id number]: () 08/09/2017 CHARISSA K Primary CHARISSA K [place] [id number] Insurance:MEDICARE [facility]ALLORIEPEARL RIVER COUNTY HOSPITALOB: [facility] A BPolicy [id number] Number: Repository [address]Swt: [phone] [id number] [phone] () Date:2017-08-09 08/09/2017 Secondary CHARISSA K [place] Insurance:AARPPolicy MALLORIEGOMERYDOB: Community Number: [id number] Hospital [id number] Repository Date:5482-91-43AY [facility] 969811FOJWFNA, [place] [address]PG: 08/09/2017 Tertiary NOT GIVENUNK [place] Insurance:SELF PAY [facility] Number: Effective Repository Date:2017-08-09 08/09/2017 CHARISSA K Primary CHARISSA K [place] [id number] Insurance:MEDICARE [place]DOB: Community [place] [facility] [id number], [place] Number: Repository [address]Yqy: 330 [id number] [phone] (HP) Date:2017-08-07 08/09/2017 Secondary CHARISSA K [place] Insurance:AARPPolicy MONTGOM[place]DOB: Community Number: [id number] Hospital [id number] Repository Date:1914-95-25HH [facility] 042031RVGULOM, [place] [address]LE: 08/09/2017 Tertiary NOT GIVENUNK Rigoberto Insurance:SELF PAY [facility] Number: Effective Repository Date:2017-08-07 08/06/2017 CHARISSA K Primary CHARISSA K [place] [id number] Insurance:MEDICARE MON[place]DOB: Community [place] [facility] [id number] [place] Number: Repository [address]Vbn: 330 [id number] [phone] (HP) Date:2017-07-05 08/06/2017 Secondary CHARISSA K [place] Insurance:AARPPolicy [place]OM[place]DOB: Community Number: [id number] Hospital [id number] Repository Date:7754-58-27IO [address]UGRLADY, [place] [address]NI: 08/06/2017 Tertiary NOT GIVENUNK Rigoberto Insurance:SELF PAY [facility] Hospital Number: Effective Repository Date:2017-08-06 08/02/2017 CHARISSA K Primary CHARISSA K [place] [id number] Insurance:MEDICARE [place]DOB: Community [place] [facility] [id number] [facility] Number: Repository [address]Vzt: 330 [id number] [phone] (HP) Date:2017-08-02 08/02/2017 Secondary CHARISSA K [place] Insurance:AARPPolicy [place]OM[place]DOB: Community Number: [id number] Hospital [id number] Repository Date:1465-76-96ZH [address]TZLWZNZ, [place] [address]ID: 08/02/2017 Tertiary NOT GIVENUNK [place]ober[place] Insurance:SELF PAY Community [facility] Number: Effective Repository Date:2017-08-02 08/02/2017 CHARISSA K Primary CHAIRSSA K [place] [id number] Insurance:MEDICARE [place]DOB: Community [place] [facility] [id number] [place] Number: Repository [address]Pbo: [phone] [id number]-AEffectiv [phone] () e Date:2017-07-31 08/02/2017 Secondary CHARISSA K [place] Insurance:AARPPolicy [place]OM[place]DOB: Community Number: [id number] Hospital [id number] Repository Date:0229-46-33LJ [address]VKXIFDV, [place] [address]BZ: 08/02/2017 Tertiary NOT GIVENUNK [place] Insurance:SELF PAY [facility] Number: Effective Repository Date:2017-07-31 08/02/2017 CHARISSA K Primary CHARISSA K [place] [id number] Insurance:MEDICARE [place]DOB: Community [place] [facility] [id number] [facility] [place] Number: Repository [address]Yyh: [phone] [id number] [phone] () Date:2017-07-05 08/02/2017 Secondary CHARISSA K [place] Insurance:AARPPolicy [place]OM[place]DOB: Community Number: [id number] Hospital [id number] Repository Date:7457-53-65QB [address]XXDPGTS, [place] [address]KM: 08/02/2017 Tertiary NOT GIVENUNK [place] Insurance:SELF PAY Community [facility] Number: Effective Repository Date:2017-08-02 07/26/2017 CHARISSA K Primary CHARISSA K [place] [id number] Insurance:MEDICARE [place]DOB: Community [place] BPolicy [id number], [place] Number: Repository [address]Ocw: [phone]) [phone]-AEffectiv [phone] () e Date:2017-07-05 07/26/2017 Secondary CHARISSA K [place] Insurance:AARPPolicy [place]OM[place]DOB: Community Number: [id number] Hospital [id number] Repository Date:1532-95-38QB [address]WHOJNTG, [place] [address]DS: 07/26/2017 Tertiary NOT GIVENUNK [place]ober[place] Insurance:SELF PAY [facility] Number: Effective Repository Date:2017-07-05 07/26/2017 CHARISSA K Primary CHARISSA K [place] [id number] Insurance:MEDICARE [place]DOB: Community [place] [facility] [id number] [place] Number: Repository [address]Esl: 330 [id number] [phone] () Date:2017-07-05 07/26/2017 Secondary CHARISSA K [place] Insurance:AARPPolicy [place]OM[place]DOB: Community Number: [id number] Hospital [id number] Repository Date:7865-03-71BH [address]FLODLQS, [place] [address]ZR: 07/26/2017 Tertiary NOT GIVENUNK [place] Insurance:SELF PAY [facility] Number: Effective Repository Date:2017-07-26 07/24/2017 CHARISSA K Primary CHARISSA K [place] [id number] Insurance:MEDICARE [place]DOB: Community [place] [facility] [id number], [place] Number: Repository [address]Pgm: [phone]-AEffectiv [phone] () e Date:2017-07-24 07/24/2017 Secondary CHARISSA K [place] Insurance:AARPPolicy [place]DOB: Community Number: [id number] Hospital [id number] Repository Date:7602-56-17CZ [facility] 309624QUAVZCE, [place] [address]YS: 07/24/2017 Tertiary NOT GIVENUNK [place] Insurance:SELF PAY [facility] Number: Effective Repository Date:2017-07-24 07/19/2017 CHARISSA K Primary CHARISSA K [place] [id number] Insurance:MEDICARE [place]OMERYDOB: Community [place] [facility] [id number] [place] Number: Repository [address]Wgb: 330 [id number] [phone] (HP) Date:2017-07-05 07/19/2017 Secondary CHARISSA K [place] Insurance:AARPPolicy [place]OM[place]DOB: Community Number: [id number] Hospital [id number] Repository Date:3168-01-28WG [facility] 874001AJXEBHB, [place] [address]XV: 07/19/2017 Tertiary NOT GIVENUNK [place] Insurance:SELF PAY [facility] Number: Effective Repository Date:2017-07-19 07/12/2017 CHARISSA K Primary CHARISSA K [place] [id number] Insurance:MEDICARE [place]DOB: Community [place] [facility] [id number] [place] Number: Repository [address]Tch: [phone] [id number] [phone] (HP) Date:2017-07-05 07/12/2017 Secondary CHARISSA K [place] Insurance:AARPPolicy [place]OM[place]DOB: Community Number: [id number] Hospital [id number] Repository Date:0016-84-77NY [facility] 847835BNPRUPU, [place] [address]LG: 07/12/2017 Tertiary NOT GIVENUNK [place] Insurance:SELF PAY [facility] Number: Effective Repository Date:2017-07-12 07/05/2017 CHARISSA K Primary CHARISSA K [place] [id number] Insurance:MEDICARE [place]OMERYDOB: Community [place] [facility] [id number] [facility] Number[place] Repository [address]Fxs: [phone] [id number] [phone] (HP) Date:2017-07-05 07/05/2017 Secondary CHARISSA K [place] Insurance:LAURENCEPPolictom PADRONMERYDOB: Community Number: [id number] Hospital [id number] Repository Date:3091-75-26FH [facility] 936395HPOXRHC, [place] [address]JA: 07/05/2017 Tertiary NOT GIVENUNK [place] Insurance:SELF PAY [facility] Number: Effective Repository Date:2017-07-05 06/07/2017 CHARISSA K Primary CHARISSA K [place] [id number] Insurance:HUMANA [place]OM[place]DOB: Community [place] MEDICARE PPOPolicy [id number] [place] Number: Repository [address]Iyq: 330 [id number] [phone] (HP) Date:8073-04-51UN [address] [address]EZ: 06/07/2017 Secondary CHARISSA K Rigoberto Insurance:FREDYA GERRI PADRONMERYDOB: Community H[id number] [id number] Date:8988-73-93ES [address] [address]XK: 06/07/2017 Tertiary NOT GIVENUNK [place] Insurance:SELF PAY [facility] Hospital Number: Effective Repository Date:2017-06-04 05/31/2017 Charissa K Primary Charissa K Rigoberto [id number] Insurance:HUMANA MontgomeryDOB: Community [place] MED[place]ARE PPOPolicy [id number] [place] Number: Repository [id number]: 330 [id number] [phone] (HP) Date:[id number] [address] [address]NB: 05/31/2017 Secondary NOT GIVENUNK [place] Insurance:SELF PAY [facility] Hospital Number: Effective Repository Date:2017-05-06 05/24/2017 CHARISSA K Primary CHARISSA Miriam [id number] Insurance:HUMANA VITOMERYDOB: Community [place] PPOPolicy [id number]: Repository [address]Jfo: 330 [id number] [phone] (HP) Date:[id number] [address] [place] [phone]: 05/24/2017 Secondary NOT GIVENUNK [place] Insurance:SELF PAY [facility] Date:2017-05-24 05/23/2017 Charissa K Primary Charissa Miriam [place] [id number] Insurance:HUMANA VitomeryDOB: Community [place] MEDICARE [facility] [id number] Repository [id number]: 330 [id number] [phone] (HP) Date:4803-54-20GR [address] [place] [phone]: 05/23/2017 Secondary NOT GIVENUNK [place] Insurance:SELF PAY [facility] Number: Effective Repository Date:2017-05-23
== END ==
LOC: POLAB3 13:24 → RAD 14:26
PROVIDERS: Family Provider Family Medicine Geriatric Medicine; PCP Family Medicine Geriatric Medicine; Referring Provider Family Medicine Geriatric Medicine; Visit Provider Family Medicine Geriatric Medicine
DX: M16.12 Unilateral primary osteoarthritis, left hip (principal); E55.9 Vitamin D deficiency, unspecified; I10 Essential (primary) hypertension; H34.81 Central retinal vein occlusion
CPT/HCPCS: 73502; 80053; 82306; 84443; 85025; 85610; 85730

== ENCOUNTER 2018-05-01 09:00 | Outpatient (RCR) | payer MEDICARE, OTHER, SELFPAY ==
[2018-04-04 00:45] VITALS: BP 141/75; PULSE 101; RESP 18; TEMP 36.7; BMI 40.5
[2018-04-10 08:17] VITALS: BP 141/94; PULSE 97; RESP 16; TEMP 35.6; BMI 40.5
--- NOTE | 2018-04-10 08:50 | PCM.WC.PN ---
(1) Pressure ulcer of sacral region, stage 4 Status: Chronic Current Visit: Yes Code(s): L89.154 - Pressure ulcer of sacral region, stage 4 Type of Wound Chief Complaint: Sacral pressure sore, Stage IV. History of Wound: Patient comes in for further evaluation of her sacral pressure sore. I initially saw her in August. A CT was done which showed no evidence of osteomyelitis, but did show evidence of a colovaginal fistula. The fistula was surgically repaired in December at [facility]. She had a sacral wound culture done on 01/02/18 and it showed Staphylococcus aureus. She was treated with antibiotics. She was recently discharged from a correction. She is also being treated for a nonhealing abdominal wall wound from her surgery in December. She had a recent abdominal wall wound culture done on 03/06/18 which showed Staphylococcus aureus and was placed on antibiotics. I was asked to evaluate her sacral pressure sore for surgical options for treatment. Progress of Wound: Stable. No new complaints. Scheduled for surgery on 04/16. - Physical Exam Vital Signs Temp Pulse Resp BP 96.0 F L 97 16 141/94 H 04/10/18 08:17 04/10/18 08:17 04/10/18 08:17 04/10/18 08:17 General: Alert, Oriented x3, Cooperative, No apparent distress HEENT: Atraumatic Oral: Moist Mucosa Neck: Supple Lungs: Normal air movement Abdomen: Soft, Non Tender Extremities: No cyanosis Skin: Ulcer/ Wound Wound Measurements and Assessment WC - Nurse 1 - General Ulcer Measurement Start: 04/10/18 08:17 Freq: Status: Active Protocol: Activity Type Activity Date Activity User E-Sign Co-Sign Detail Recorded Client Recorded Date Recorded By Document 04/10/18 08:17 [id number] 04/10/18 08:26 04/10/18 08:17 Wound Center Nurse 1 [Ulcer Assessment] #5 sacrum -Combined with other wound No -Current Size (cm) - Length 1.3 -Current Size (cm) - Width 3.5 -Current Size (cm) - Depth 1.0 -Total Square Cm 4.55 -Photo Taken No -Epithelialization None Present -Tunneling No -Undermining/Tunneling Yes -Undermining/Tunneling Starts (O' 9 clock) -Undermining/Tunneling Ends (O'clock) 3 -Maximum Distance (cm) 1.3 -Circular Undermining No -Exudate Amt Medium (34-66%) -Exudate Type Yellow/Green -Wound Margin Distinct, Outline Attached -Granulation Amt Small (1-33%) -Granulation Quality [place] -Slough/Fibrin Yes -Necrosis Amt None Present (0 %) -Necrotic Tissue Type Adherent Slough -Texture (Amanda-wound Skin Appearance) Scarring -Moisture (Amanda-wound Skin Appearance No Abnormality ) Assessed -Color (Amanda-wound Skin Appearance) No Abnormality Assessed -Temperature (Amanda-wound Skin No Abnormality Appearance) (Pt Warm) -Tenderness on Palpation (Amanda-wound No Skin Appearance) -Ulcer Cleansing Rinsed/ Irrigated with Saline -Foul Odor after Cleansing No -Anesthetic Used 4% Lidocaine Solution [Edema Assessment] -Lower Limb Edema Present NA WC - Nurse 2 - General Ulcer CM Notes Start: 04/10/18 08:17 Freq: Status: Active Protocol: Activity Type Activity Date Activity User E-Sign Co-Sign Detail Recorded Client Recorded Date Recorded By Document 04/10/18 08:43 MW [id number] 04/10/18 08:45 MW 04/10/18 08:43 Wound Center Nurse 2 [Procedure/Treatment] #5 sacrum -Time 08:44 -Correct Patient Yes -Correct Side, Site, Position Yes -Correct Procedure Yes -Procedure Performed Yes -Type of Procedure Debridement -Clinical Debridement Subcutaneous -Post Debridement Size (cm) - Length 1.3 -Post Debridement Size (cm) - Width 3.3 -Post Debridement Size (cm) - Depth 1.2 -Total Square Cm 4.29 -Wound/Ulcer Outcome Not Healed -Ulcer Cleansing Rinsed/ Irrigated with Saline -Foul Odor after Cleansing No -Bioengineered Tissue No -Bleeding Controlled with Pressure -Treatment Response Procedure Tolerated Well [See Physician Procedure note for Specifics] Pain Scale: 0-10 Numeric [Pain] -Is Patient Pain Free? Yes Musculoskeletal: No Muscle Wasting Neurological: Cranial nerves II-XII grossly intact Psych/Mental Status: Normal Affect Debridement Note Post-Debridement Measurements/Treatment WC - Nurse 2 - General Ulcer CM Notes Start: 04/10/18 08:17 Freq: Status: Active Protocol: Activity Type Activity Date Activity User E-Sign Co-Sign Detail Recorded Client Recorded Date Recorded By Document 04/10/18 08:43 MW [id number] 04/10/18 08:45 MW 04/10/18 08:43 Wound Center Nurse 2 #5 sacrum -Time 08:44 -Correct Patient Yes -Correct Side, Site, Position Yes -Correct Procedure Yes -Procedure Performed Yes -Type of Procedure Debridement -Clinical Debridement Subcutaneous -Post Debridement Size (cm) - Length 1.3 -Post Debridement Size (cm) - Width 3.3 -Post Debridement Size (cm) - Depth 1.2 -Total Square Cm 4.29 -Wound/Ulcer Outcome Not Healed -Ulcer Cleansing Rinsed/ Irrigated with Saline -Foul Odor after Cleansing No -Bioengineered Tissue No -Bleeding Controlled with Pressure -Treatment Response Procedure Tolerated Well Pain Scale: 0-10 Numeric Is Patient Pain Free? Yes Wound debrided: Sacral ulcer Wound Grade/Stage: Stage IV Type of Debridement: Excisional debridement Anesthesia Used: 4% Lidocaine Solution Depth: Down to and including healthy tissue, in the subcutaneous layer Percentage of wound debrided: 100 Instrument Used: 7mm curette Tissue Removed: Slough and devitalized tissue Severity: Fat Layer Exposed Amount of bleeding with debridement: Mild Bleeding Controlled with: Pressure Patient tolerated procedure well Assessment/Plan Active Problems (Last Updated 08/09/17 @ 08:06 by Liz Baker) Pressure ulcer of sacral region, stage 4 (Chronic) Assessment: 1. Sacral pressure sore, Stage IV. 2. Nonhealing abdominal wall wound from her surgery in December. 3. s/p repair colovaginal fistula. Plan: Stable sacral ulcer. Debridement of sacral ulcer done, procedure was well-tolerated. Continue Fibracol to sacral ulcer and change every other day. Continue increased protein intake. Scheduled for surgical debridement of sacral ulcer with Dr. Hansen in 04/16. All her questions were answered and she was asked to call with any further questions or concerns. Follow-up will be decided based on surgery and Dr. Hansen. This note was generated with Heliaeation software. It may contain incorrect words, spelling, and punctuation that were not noted in checking the note before signing.
--- NOTE | 2018-04-10 08:54 | PN.PCM_ITS ---
(1) Pressure ulcer of sacral region, stage 4 Status: Chronic Current Visit: Yes Code(s): L89.154 - Pressure ulcer of sacral region, stage 4 Type of Wound Chief Complaint: Sacral pressure sore, Stage IV. History of Wound: Patient comes in for further evaluation of her sacral pressure sore. I initially saw her in August. A CT was done which showed no evidence of osteomyelitis, but did show evidence of a colovaginal fistula. The fistula was surgically repaired in December at [facility]. She had a sacral wound culture done on 01/02/18 and it showed Staphylococcus aureus. She was treated with antibiotics. She was recently discharged from a assisted. She is also being treated for a nonhealing abdominal wall wound from her surgery in December. She had a recent abdominal wall wound culture done on 03/06/18 which showed Staphylococcus aureus and was placed on antibiotics. I was asked to evaluate her sacral pressure sore for surgical options for treatment. Progress of Wound: Stable. No new complaints. Scheduled for surgery on 04/16. - Physical Exam Vital Signs Temp Pulse Resp BP 96.0 F L 97 16 141/94 H 04/10/18 08:17 04/10/18 08:17 04/10/18 08:17 04/10/18 08:17 General: Alert, Oriented x3, Cooperative, No apparent distress HEENT: Atraumatic Oral: Moist Mucosa Neck: Supple Lungs: Normal air movement Abdomen: Soft, Non Tender Extremities: No cyanosis Skin: Ulcer/ Wound Wound Measurements and Assessment WC - Nurse 1 - General Ulcer Measurement Start: 04/10/18 08:17 Freq: Status: Active Protocol: Activity Type Activity Date Activity User E-Sign Co-Sign Detail Recorded Client Recorded Date Recorded By Document 04/10/18 08:17 [id number] 04/10/18 08:26 04/10/18 08:17 Wound Center Nurse 1 [Ulcer Assessment] #5 sacrum -Combined with other wound No -Current Size (cm) - Length 1.3 -Current Size (cm) - Width 3.5 -Current Size (cm) - Depth 1.0 -Total Square Cm 4.55 -Photo Taken No -Epithelialization None Present -Tunneling No -Undermining/Tunneling Yes -Undermining/Tunneling Starts (O' 9 clock) -Undermining/Tunneling Ends (O'clock) 3 -Maximum Distance (cm) 1.3 -Circular Undermining No -Exudate Amt Medium (34-66%) -Exudate Type Yellow/Green -Wound Margin Distinct, Outline Attached -Granulation Amt Small (1-33%) -Granulation Quality [place] -Slough/Fibrin Yes -Necrosis Amt None Present (0 %) -Necrotic Tissue Type Adherent Slough -Texture (Amanda-wound Skin Appearance) Scarring -Moisture (Amanda-wound Skin Appearance No Abnormality ) Assessed -Color (Amanda-wound Skin Appearance) No Abnormality Assessed -Temperature (Amanda-wound Skin No Abnormality Appearance) (Pt Warm) -Tenderness on Palpation (Amanda-wound No Skin Appearance) -Ulcer Cleansing Rinsed/ Irrigated with Saline -Foul Odor after Cleansing No -Anesthetic Used 4% Lidocaine Solution [Edema Assessment] -Lower Limb Edema Present NA WC - Nurse 2 - General Ulcer CM Notes Start: 04/10/18 08:17 Freq: Status: Active Protocol: Activity Type Activity Date Activity User E-Sign Co-Sign Detail Recorded Client Recorded Date Recorded By Document 04/10/18 08:43 MW [id number] 04/10/18 08:45 MW 04/10/18 08:43 Wound Center Nurse 2 [Procedure/Treatment] #5 sacrum -Time 08:44 -Correct Patient Yes -Correct Side, Site, Position Yes -Correct Procedure Yes -Procedure Performed Yes -Type of Procedure Debridement -Clinical Debridement Subcutaneous -Post Debridement Size (cm) - Length 1.3 -Post Debridement Size (cm) - Width 3.3 -Post Debridement Size (cm) - Depth 1.2 -Total Square Cm 4.29 -Wound/Ulcer Outcome Not Healed -Ulcer Cleansing Rinsed/ Irrigated with Saline -Foul Odor after Cleansing No -Bioengineered Tissue No -Bleeding Controlled with Pressure -Treatment Response Procedure Tolerated Well [See Physician Procedure note for Specifics] Pain Scale: 0-10 Numeric [Pain] -Is Patient Pain Free? Yes Musculoskeletal: No Muscle Wasting Neurological: Cranial nerves II-XII grossly intact Psych/Mental Status: Normal Affect Debridement Note Post-Debridement Measurements/Treatment WC - Nurse 2 - General Ulcer CM Notes Start: 04/10/18 08:17 Freq: Status: Active Protocol: Activity Type Activity Date Activity User E-Sign Co-Sign Detail Recorded Client Recorded Date Recorded By Document 04/10/18 08:43 MW [id number] 04/10/18 08:45 MW 04/10/18 08:43 Wound Center Nurse 2 #5 sacrum -Time 08:44 -Correct Patient Yes -Correct Side, Site, Position Yes -Correct Procedure Yes -Procedure Performed Yes -Type of Procedure Debridement -Clinical Debridement Subcutaneous -Post Debridement Size (cm) - Length 1.3 -Post Debridement Size (cm) - Width 3.3 -Post Debridement Size (cm) - Depth 1.2 -Total Square Cm 4.29 -Wound/Ulcer Outcome Not Healed -Ulcer Cleansing Rinsed/ Irrigated with Saline -Foul Odor after Cleansing No -Bioengineered Tissue No -Bleeding Controlled with Pressure -Treatment Response Procedure Tolerated Well Pain Scale: 0-10 Numeric Is Patient Pain Free? Yes Wound debrided: Sacral ulcer Wound Grade/Stage: Stage IV Type of Debridement: Excisional debridement Anesthesia Used: 4% Lidocaine Solution Depth: Down to and including healthy tissue, in the subcutaneous layer Percentage of wound debrided: 100 Instrument Used: 7mm curette Tissue Removed: Slough and devitalized tissue Severity: Fat Layer Exposed Amount of bleeding with debridement: Mild Bleeding Controlled with: Pressure Patient tolerated procedure well Assessment/Plan Active Problems (Last Updated 08/09/17 @ 08:06 by Liz Baker) Pressure ulcer of sacral region, stage 4 (Chronic) Assessment: 1. Sacral pressure sore, Stage IV. 2. Nonhealing abdominal wall wound from her surgery in December. 3. s/p repair colovaginal fistula. Plan: Stable sacral ulcer. Debridement of sacral ulcer done, procedure was well-tolerated. Continue Fibracol to sacral ulcer and change every other day. Continue increased protein intake. Scheduled for surgical debridement of sacral ulcer with Dr. Hansen in 04/16. All her questions were answered and she was asked to call with any further questions or concerns. Follow-up will be decided based on surgery and Dr. Hansen. This note was generated with SensorLogication software. It may contain incorrect words, spelling, and punctuation that were not noted in checking the note before signing.
[2018-04-24 08:54] VITALS: BP 151/75; PULSE 101; RESP 18; TEMP 36.1; BMI 40.5
--- NOTE | 2018-04-24 09:08 | PCM.WC.PN ---
(1) Pressure ulcer of sacral region, stage 4 Status: Chronic Current Visit: No Code(s): L89.154 - Pressure ulcer of sacral region, stage 4 Type of Wound Chief Complaint: Sacral pressure sore, Stage IV. History of Wound: Patient comes in for further evaluation of her sacral pressure sore. I initially saw her in August. A CT was done which showed no evidence of osteomyelitis, but did show evidence of a colovaginal fistula. The fistula was surgically repaired in December at [facility]. She had a sacral wound culture done on 01/02/18 and it showed Staphylococcus aureus. She was treated with antibiotics. She was recently discharged from a [facility]. She is also being treated for a nonhealing abdominal wall wound from her surgery in December. She had a recent abdominal wall wound culture done on 03/06/18 which showed Staphylococcus aureus and was placed on antibiotics. I was asked to evaluate her sacral pressure sore for surgical options for treatment. Progress of Wound: Stable. No new complaints. Surgery rescheduled pending cardiac clearance. - Physical Exam Vital Signs Temp Pulse Resp BP 97 F L 101 H 18 151/75 H 04/24/18 08:54 04/24/18 08:54 04/24/18 08:54 04/24/18 08:54 General: Alert, Oriented x3, Cooperative, No apparent distress HEENT: Atraumatic Oral: Moist Mucosa Neck: Supple Lungs: Normal air movement Abdomen: Non Tender Skin: Ulcer/ Wound Wound Measurements and Assessment WC - Nurse 1 - General Ulcer Measurement Start: 04/10/18 08:17 Freq: Status: Active Protocol: Activity Type Activity Date Activity User E-Sign Co-Sign Detail Recorded Client Recorded Date Recorded By Document 04/24/18 08:54 [id number] 04/24/18 09:00 04/24/18 08:54 Wound Center Nurse 1 [Ulcer Assessment] #5 sacrum -Combined with other wound No -Current Size (cm) - Length 1.1 -Current Size (cm) - Width 3.5 -Current Size (cm) - Depth 1.1 -Total Square Cm 3.85 -Photo Taken No -Epithelialization None Present -Tunneling No -Undermining/Tunneling No -Circular Undermining Yes -Exudate Amt Medium (34-66%) -Exudate Type Yellow/Green -Wound Margin Epibole -Granulation Amt Small (1-33%) -Granulation Quality Pale -Slough/Fibrin Yes -Necrosis Amt None Present (0 %) -Necrotic Tissue Type Adherent Slough -Texture (Amanda-wound Skin Appearance) Scarring -Moisture (Amanda-wound Skin Appearance Assessed ) -Color (Amanda-wound Skin Appearance) Assessed -Temperature (Amanda-wound Skin No Abnormality Appearance) (Pt Warm) -Tenderness on Palpation (Amanda-wound No Skin Appearance) -Ulcer Cleansing Rinsed/ Irrigated with Saline -Foul Odor after Cleansing No -Anesthetic Used 4% Lidocaine Solution [Edema Assessment] -Lower Limb Edema Present NA - Nurse 2 - General Ulcer CM Notes Start: 04/10/18 08:17 Freq: Status: Active Protocol: Activity Type Activity Date Activity User E-Sign Co-Sign Detail Recorded Client Recorded Date Recorded By Document 04/24/18 09:06 MW [id number] 04/24/18 09:08 MW 04/24/18 09:06 Wound Center Nurse 2 [Procedure/Treatment] #5 sacrum -Time 09:06 -Correct Patient Yes -Correct Side, Site, Position Yes -Correct Procedure Yes -Procedure Performed Yes -Type of Procedure Debridement -Clinical Debridement Subcutaneous -Post Debridement Size (cm) - Length 1.2 -Post Debridement Size (cm) - Width 3.4 -Post Debridement Size (cm) - Depth 1.1 -Total Square Cm 4.08 -Wound/Ulcer Outcome Not Healed -Foul Odor after Cleansing No -Bioengineered Tissue No -Bleeding Controlled with Pressure -Treatment Response Procedure Tolerated Well [See Physician Procedure note for Specifics] Pain Scale: 0-10 Numeric [Pain] -Is Patient Pain Free? Yes Musculoskeletal: No Muscle Wasting Neurological: Cranial nerves II-XII grossly intact Psych/Mental Status: Normal Affect Debridement Note Post-Debridement Measurements/Treatment - Nurse 2 - General Ulcer CM Notes Start: 04/10/18 08:17 Freq: Status: Active Protocol: Activity Type Activity Date Activity User E-Sign Co-Sign Detail Recorded Client Recorded Date Recorded By Document 04/10/18 08:43 MW [id number] 04/10/18 08:45 MW Document 04/24/18 09:06 MW [id number] 04/24/18 09:08 MW 04/10/18 04/24/18 08:43 09:06 Wound Center Nurse 2 #5 sacrum -Time 08:44 09:06 -Correct Patient Yes Yes -Correct Side, Site, Position Yes Yes -Correct Procedure Yes Yes -Procedure Performed Yes Yes -Type of Procedure Debridement Debridement -Clinical Debridement Subcutaneous Subcutaneous -Post Debridement Size (cm) - Length 1.3 1.2 -Post Debridement Size (cm) - Width 3.3 3.4 -Post Debridement Size (cm) - Depth 1.2 1.1 -Total Square Cm 4.29 4.08 -Wound/Ulcer Outcome Not Healed Not Healed -Ulcer Cleansing Rinsed/ Irrigated with Saline -Foul Odor after Cleansing No No -Bioengineered Tissue No No -Bleeding Controlled with Pressure Pressure -Treatment Response Procedure Procedure Tolerated Well Tolerated Well Pain Scale: 0-10 Numeric Is Patient Pain Free? Yes Yes Wound debrided: Sacral ulcer Wound Grade/Stage: Stage IV Anesthesia Used: 4% Lidocaine Solution Depth: Down to and including healthy tissue, in the subcutaneous layer Percentage of wound debrided: 100 Instrument Used: 7mm curette Tissue Removed: Slough and devitalized tissue Severity: Fat Layer Exposed Amount of bleeding with debridement: Mild Bleeding Controlled with: Pressure Patient tolerated procedure well Assessment/Plan Assessment: 1. Sacral pressure sore, Stage IV. 2. Nonhealing abdominal wall wound from her surgery in December. 3. s/p repair colovaginal fistula. Plan: Stable sacral ulcer. Debridement of sacral ulcer done, procedure was well-tolerated. Continue Fibracol to sacral ulcer and change every other day. Continue increased protein intake. Suregry with Dr hansen to be rescheduled now that she has cardiac clearance. All her questions were answered and she was asked to call with any further questions or concerns. Follow-up will be decided based on surgery and Dr. Hansen. This note was generated with [employer] software. It may contain incorrect words, spelling, and punctuation that were not noted in checking the note before signing.
--- NOTE | 2018-04-24 09:12 | PN.PCM_ITS ---
(1) Pressure ulcer of sacral region, stage 4 Status: Chronic Current Visit: No Code(s): L89.154 - Pressure ulcer of sacral region, stage 4 Type of Wound Chief Complaint: Sacral pressure sore, Stage IV. History of Wound: Patient comes in for further evaluation of her sacral pressure sore. I initially saw her in August. A CT was done which showed no evidence of osteomyelitis, but did show evidence of a colovaginal fistula. The fistula was surgically repaired in December at [facility]. She had a sacral wound culture done on 01/02/18 and it showed Staphylococcus aureus. She was treated with antibiotics. [facility] was recently [facility] from a [facility]. She is also being treated for a nonhealing abdominal wall wound from her surgery in December. She had a recent abdominal wall wound culture done on 03/06/18 which showed Staphylococcus aureus and was placed on antibiotics. I was asked to evaluate her sacral pressure sore for surgical options for treatment. Progress of Wound: Stable. No new complaints. Surgery rescheduled pending cardiac clearance. - Physical Exam Vital Signs Temp Pulse Resp BP 97 F L 101 H 18 151/75 H 04/24/18 08:54 04/24/18 08:54 04/24/18 08:54 04/24/18 08:54 General: Alert, Oriented x3, Cooperative, No apparent distress HEENT: Atraumatic Oral: Moist Mucosa Neck: Supple Lungs: Normal air movement Abdomen: Non Tender Skin: Ulcer/ Wound Wound Measurements and Assessment WC - Nurse 1 - General Ulcer Measurement Start: 04/10/18 08:17 Freq: Status: Active Protocol: Activity Type Activity Date Activity User E-Sign Co-Sign Detail Recorded Client Recorded Date Recorded By Document 04/24/18 08:54 [id number] 04/24/18 09:00 04/24/18 08:54 Wound Center Nurse 1 [Ulcer Assessment] #5 sacrum -Combined with other wound No -Current Size (cm) - Length 1.1 -Current Size (cm) - Width 3.5 -Current Size (cm) - Depth 1.1 -Total Square Cm 3.85 -Photo Taken No -Epithelialization None Present -Tunneling No -Undermining/Tunneling No -Circular Undermining Yes -Exudate Amt Medium (34-66%) -Exudate Type Yellow/Green -Wound Margin Epibole -Granulation Amt Small (1-33%) -Granulation Quality Pale -Slough/Fibrin Yes -Necrosis Amt None Present (0 %) -Necrotic Tissue Type Adherent Slough -Texture (Amanda-wound Skin Appearance) Scarring -Moisture (Amanda-wound Skin Appearance Assessed ) -Color (Amanda-wound Skin Appearance) Assessed -Temperature (Amanda-wound Skin No Abnormality Appearance) (Pt Warm) -Tenderness on Palpation (Amanda-wound No Skin Appearance) -Ulcer Cleansing Rinsed/ Irrigated with Saline -Foul Odor after Cleansing No -Anesthetic Used 4% Lidocaine Solution [Edema Assessment] -Lower Limb Edema Present NA - Nurse 2 - General Ulcer CM Notes Start: 04/10/18 08:17 Freq: Status: Active Protocol: Activity Type Activity Date Activity User E-Sign Co-Sign Detail Recorded Client Recorded Date Recorded By Document 04/24/18 09:06 MW [id number] 04/24/18 09:08 MW 04/24/18 09:06 Wound Center Nurse 2 [Procedure/Treatment] #5 sacrum -Time 09:06 -Correct Patient Yes -Correct Side, Site, Position Yes -Correct Procedure Yes -Procedure Performed Yes -Type of Procedure Debridement -Clinical Debridement Subcutaneous -Post Debridement Size (cm) - Length 1.2 -Post Debridement Size (cm) - Width 3.4 -Post Debridement Size (cm) - Depth 1.1 -Total Square Cm 4.08 -Wound/Ulcer Outcome Not Healed -Foul Odor after Cleansing No -Bioengineered Tissue No -Bleeding Controlled with Pressure -Treatment Response Procedure Tolerated Well [See Physician Procedure note for Specifics] Pain Scale: 0-10 Numeric [Pain] -Is Patient Pain Free? Yes Musculoskeletal: No Muscle Wasting Neurological: Cranial nerves II-XII grossly intact Psych/Mental Status: Normal Affect Debridement Note Post-Debridement Measurements/Treatment - Nurse 2 - General Ulcer CM Notes Start: 04/10/18 08:17 Freq: Status: Active Protocol: Activity Type Activity Date Activity User E-Sign Co-Sign Detail Recorded Client Recorded Date Recorded By Document 04/10/18 08:43 MW [id number] 04/10/18 08:45 MW Document 04/24/18 09:06 MW [id number] 04/24/18 09:08 MW 04/10/18 04/24/18 08:43 09:06 Wound Center Nurse 2 #5 sacrum -Time 08:44 09:06 -Correct Patient Yes Yes -Correct Side, Site, Position Yes Yes -Correct Procedure Yes Yes -Procedure Performed Yes Yes -Type of Procedure Debridement Debridement -Clinical Debridement Subcutaneous Subcutaneous -Post Debridement Size (cm) - Length 1.3 1.2 -Post Debridement Size (cm) - Width 3.3 3.4 -Post Debridement Size (cm) - Depth 1.2 1.1 -Total Square Cm 4.29 4.08 -Wound/Ulcer Outcome Not Healed Not Healed -Ulcer Cleansing Rinsed/ Irrigated with Saline -Foul Odor after Cleansing No No -Bioengineered Tissue No No -Bleeding Controlled with Pressure Pressure -Treatment Response Procedure Procedure Tolerated Well Tolerated Well Pain Scale: 0-10 Numeric Is Patient Pain Free? Yes Yes Wound debrided: Sacral ulcer Wound Grade/Stage: Stage IV Anesthesia Used: 4% Lidocaine Solution Depth: Down to and including healthy tissue, in the subcutaneous layer Percentage of wound debrided: 100 Instrument Used: 7mm curette Tissue Removed: Slough and devitalized tissue Severity: Fat Layer Exposed Amount of bleeding with debridement: Mild Bleeding Controlled with: Pressure Patient tolerated procedure well Assessment/Plan Assessment: 1. Sacral pressure sore, Stage IV. 2. Nonhealing abdominal wall wound from her surgery in December. 3. s/p repair colovaginal fistula. Plan: Stable sacral ulcer. Debridement of sacral ulcer done, procedure was well-tolerated. Continue Fibracol to sacral ulcer and change every other day. Continue increased protein intake. Suregry with Dr hansen to be rescheduled now that she has cardiac clearance. All her questions were answered and she was asked to call with any further questions or concerns. Follow-up will be decided based on surgery and Dr. Hansen. This note was generated with [employer] software. It may contain incorrect words, spelling, and punctuation that were not noted in checking the note before signing.
[2018-05-01 08:41] VITALS: BP 134/70; PULSE 93; RESP 16; TEMP 36.9; BMI 40.5
--- NOTE | 2018-05-01 09:49 | PCM.WC.PN ---
(1) Pressure ulcer of sacral region, stage 4 Status: Chronic Current Visit: Yes Code(s): L89.154 - Pressure ulcer of sacral region, stage 4 Type of Wound Chief Complaint: Sacral pressure sore, Stage IV. History of Wound: Patient comes in for further evaluation of her sacral pressure sore. I initially saw her in August. A CT was done which showed no evidence of osteomyelitis, but did show evidence of a colovaginal fistula. The fistula was surgically repaired in December at [facility]. She had a sacral wound culture done on 01/02/18 and it showed Staphylococcus aureus. She was treated with antibiotics. She was recently [facility] from a [facility]. She is also being treated for a nonhealing abdominal wall wound from her surgery in December. She had a recent abdominal wall wound culture done on 03/06/18 which showed Staphylococcus aureus and was placed on antibiotics. I was asked to evaluate her sacral pressure sore for surgical options for treatment. Progress of Wound: Stable. No new complaints. - Physical Exam Vital Signs Temp Pulse Resp BP 98.4 F 93 16 134/70 H 05/01/18 08:41 05/01/18 08:41 05/01/18 08:41 05/01/18 08:41 General: Alert, Oriented x3, Cooperative, No apparent distress HEENT: Atraumatic Oral: Moist Mucosa Neck: Supple Lungs: Normal air movement Cardiovascular: Regular rate Abdomen: Soft Extremities: No cyanosis Skin: Ulcer/ Wound Wound Measurements and Assessment WC - Nurse 1 - General Ulcer Measurement Start: 04/10/18 08:17 Freq: Status: Active Protocol: Activity Type Activity Date Activity User E-Sign Co-Sign Detail Recorded Client Recorded Date Recorded By Document 05/01/18 08:41 [id number] 05/01/18 08:43 05/01/18 08:41 Wound Center Nurse 1 [Ulcer Assessment] #5 sacrum -Combined with other wound No -Current Size (cm) - Length 1.1 -Current Size (cm) - Width 3.1 -Current Size (cm) - Depth 3.1 -Total Square Cm 3.41 -Photo Taken No -Epithelialization None Present -Tunneling No -Undermining/Tunneling No -Circular Undermining Yes -Exudate Amt Medium (34-66%) -Exudate Type Serosanguineous -Wound Margin Distinct, Outline Attached -Granulation Amt None Present (0 %) -Granulation Quality N/A -Slough/Fibrin No -Necrosis Amt None Present (0 %) -Texture (Amanda-wound Skin Appearance) Scarring -Moisture (Amanda-wound Skin Appearance No Abnormality ) Assessed -Color (Amanda-wound Skin Appearance) No Abnormality Assessed -Temperature (Amanda-wound Skin No Abnormality Appearance) (Pt Warm) -Tenderness on Palpation (Amanda-wound No Skin Appearance) -Ulcer Cleansing Rinsed/ Irrigated with Saline -Foul Odor after Cleansing No -Anesthetic Used 4% Lidocaine Solution [Edema Assessment] -Lower Limb Edema Present NA - Nurse 2 - General Ulcer CM Notes Start: 04/10/18 08:17 Freq: Status: Active Protocol: Activity Type Activity Date Activity User E-Sign Co-Sign Detail Recorded Client Recorded Date Recorded By Document 05/01/18 09:17 MW [id number] 05/01/18 09:19 MW 05/01/18 09:17 Wound Center Nurse 2 [Procedure/Treatment] #5 sacrum -Time 09:19 -Correct Patient Yes -Correct Side, Site, Position Yes -Correct Procedure Yes -Procedure Performed Yes -Type of Procedure Debridement -Clinical Debridement Subcutaneous -Post Debridement Size (cm) - Length 1.0 -Post Debridement Size (cm) - Width 3.4 -Post Debridement Size (cm) - Depth 1.2 -Total Square Cm 3.40 -Wound/Ulcer Outcome Not Healed -Ulcer Cleansing Rinsed/ Irrigated with Saline -Foul Odor after Cleansing No -Bioengineered Tissue No -Bleeding Controlled with Pressure -Treatment Response Procedure Tolerated Well [See Physician Procedure note for Specifics] Pain Scale: 0-10 Numeric [Pain] -Is Patient Pain Free? Yes Musculoskeletal: No Muscle Wasting Neurological: Cranial nerves II-XII grossly intact Psych/Mental Status: Normal Affect Debridement Note Post-Debridement Measurements/Treatment - Nurse 2 - General Ulcer CM Notes Start: 04/10/18 08:17 Freq: Status: Active Protocol: Activity Type Activity Date Activity User E-Sign Co-Sign Detail Recorded Client Recorded Date Recorded By Document 04/10/18 08:43 MW [id number] 04/10/18 08:45 MW Document 04/24/18 09:06 MW [id number] 04/24/18 09:08 MW Document 05/01/18 09:17 MW [id number] 05/01/18 09:19 MW 04/10/18 04/24/18 05/01/18 08:43 09:06 09:17 Wound Center Nurse 2 #5 sacrum -Time 08:44 09:06 09:19 -Correct Patient Yes Yes Yes -Correct Side, Site, Position Yes Yes Yes -Correct Procedure Yes Yes Yes -Procedure Performed Yes Yes Yes -Type of Procedure Debridement Debridement Debridement -Clinical Debridement Subcutaneous Subcutaneous Subcutaneous -Post Debridement Size (cm) - Length 1.3 1.2 1.0 -Post Debridement Size (cm) - Width 3.3 3.4 3.4 -Post Debridement Size (cm) - Depth 1.2 1.1 1.2 -Total Square Cm 4.29 4.08 3.40 -Wound/Ulcer Outcome Not Healed Not Healed Not Healed -Ulcer Cleansing Rinsed/ Rinsed/ Irrigated with Irrigated with Saline Saline -Foul Odor after Cleansing No No No -Bioengineered Tissue No No No -Bleeding Controlled with Pressure Pressure Pressure -Treatment Response Procedure Procedure Procedure Tolerated Well Tolerated Well Tolerated Well Pain Scale: 0-10 Numeric Is Patient Pain Free? Yes Yes Yes Wound debrided: Sacral ulcer Wound Grade/Stage: Stage IV Type of Debridement: Excisional debridement Anesthesia Used: 4% Lidocaine Solution Depth: Down to and including healthy tissue, in the subcutaneous layer Percentage of wound debrided: 100 Instrument Used: 3mm curette, #15 blade, Forceps Tissue Removed: slough and devitalized tissue Severity: Fat Layer Exposed Amount of bleeding with debridement: Mild Bleeding Controlled with: Pressure Patient tolerated procedure well Assessment/Plan Active Problems (Last Reviewed 04/19/18 @ 15:10 by Mitchell Henderson MD) Pressure ulcer of sacral region, stage 4 (Chronic) Assessment: 1. Sacral pressure sore, Stage IV. 2. Nonhealing abdominal wall wound from her surgery in December. 3. s/p repair colovaginal fistula. Plan: Stable sacral ulcer. Debridement of sacral ulcer done, procedure was well-tolerated. Continue Fibracol to ulcer and change every other day. Continue increased protein intake. Surgery with Dr seay yet to be rescheduled now that she has cardiac clearance. All her questions were answered and she was asked to call with any further questions or concerns. Follow-up tentatively in 2 weeks. This note was generated with [employer] software. It may contain incorrect words, spelling, and punctuation that were not noted in checking the note before signing.
--- NOTE | 2018-05-01 09:53 | PN.PCM_ITS ---
(1) Pressure ulcer of sacral region, stage 4 Status: Chronic Current Visit: Yes Code(s): L89.154 - Pressure ulcer of sacral region, stage 4 Type of Wound Chief Complaint: Sacral pressure sore, Stage IV. History of Wound: Patient comes in for further evaluation of her sacral pressure sore. I initially saw her in August. A CT was done which showed no evidence of osteomyelitis, but did show evidence of a colovaginal fistula. The fistula was surgically repaired in December at [facility]. She had a sacral wound culture done on 01/02/18 and it showed Staphylococcus aureus. She was treated with antibiotics. She was recently discharged from a [facility]. She is also being treated for a nonhealing abdominal wall wound from her surgery in December. She had a recent abdominal wall wound culture done on 03/06/18 which showed Staphylococcus aureus and was placed on antibiotics. I was asked to evaluate her sacral pressure sore for surgical options for treatment. Progress of Wound: Stable. No new complaints. - Physical Exam Vital Signs Temp Pulse Resp BP 98.4 F 93 16 134/70 H 05/01/18 08:41 05/01/18 08:41 05/01/18 08:41 05/01/18 08:41 General: Alert, Oriented x3, Cooperative, No apparent distress HEENT: Atraumatic Oral: Moist Mucosa Neck: Supple Lungs: Normal air movement Cardiovascular: Regular rate Abdomen: Soft Extremities: No cyanosis Skin: Ulcer/ Wound Wound Measurements and Assessment WC - Nurse 1 - General Ulcer Measurement Start: 04/10/18 08:17 Freq: Status: Active Protocol: Activity Type Activity Date Activity User E-Sign Co-Sign Detail Recorded Client Recorded Date Recorded By Document 05/01/18 08:41 [id number] 05/01/18 08:43 05/01/18 08:41 Wound Center Nurse 1 [Ulcer Assessment] #5 sacrum -Combined with other wound No -Current Size (cm) - Length 1.1 -Current Size (cm) - Width 3.1 -Current Size (cm) - Depth 3.1 -Total Square Cm 3.41 -Photo Taken No -Epithelialization None Present -Tunneling No -Undermining/Tunneling No -Circular Undermining Yes -Exudate Amt Medium (34-66%) -Exudate Type Serosanguineous -Wound Margin Distinct, Outline Attached -Granulation Amt None Present (0 %) -Granulation Quality N/A -Slough/Fibrin No -Necrosis Amt None Present (0 %) -Texture (Amanda-wound Skin Appearance) Scarring -Moisture (Amanda-wound Skin Appearance No Abnormality ) Assessed -Color (Amanda-wound Skin Appearance) No Abnormality Assessed -Temperature (Amanda-wound Skin No Abnormality Appearance) (Pt Warm) -Tenderness on Palpation (Amanda-wound No Skin Appearance) -Ulcer Cleansing Rinsed/ Irrigated with Saline -Foul Odor after Cleansing No -Anesthetic Used 4% Lidocaine Solution [Edema Assessment] -Lower Limb Edema Present NA - Nurse 2 - General Ulcer CM Notes Start: 04/10/18 08:17 Freq: Status: Active Protocol: Activity Type Activity Date Activity User E-Sign Co-Sign Detail Recorded Client Recorded Date Recorded By Document 05/01/18 09:17 MW [id number] 05/01/18 09:19 MW 05/01/18 09:17 Wound Center Nurse 2 [Procedure/Treatment] #5 sacrum -Time 09:19 -Correct Patient Yes -Correct Side, Site, Position Yes -Correct Procedure Yes -Procedure Performed Yes -Type of Procedure Debridement -Clinical Debridement Subcutaneous -Post Debridement Size (cm) - Length 1.0 -Post Debridement Size (cm) - Width 3.4 -Post Debridement Size (cm) - Depth 1.2 -Total Square Cm 3.40 -Wound/Ulcer Outcome Not Healed -Ulcer Cleansing Rinsed/ Irrigated with Saline -Foul Odor after Cleansing No -Bioengineered Tissue No -Bleeding Controlled with Pressure -Treatment Response Procedure Tolerated Well [See Physician Procedure note for Specifics] Pain Scale: 0-10 Numeric [Pain] -Is Patient Pain Free? Yes Musculoskeletal: No Muscle Wasting Neurological: Cranial nerves II-XII grossly intact Psych/Mental Status: Normal Affect Debridement Note Post-Debridement Measurements/Treatment - Nurse 2 - General Ulcer CM Notes Start: 04/10/18 08:17 Freq: Status: Active Protocol: Activity Type Activity Date Activity User E-Sign Co-Sign Detail Recorded Client Recorded Date Recorded By Document 04/10/18 08:43 MW [id number] 04/10/18 08:45 MW Document 04/24/18 09:06 MW [id number] 04/24/18 09:08 MW Document 05/01/18 09:17 MW [id number] 05/01/18 09:19 MW 04/10/18 04/24/18 05/01/18 08:43 09:06 09:17 Wound Center Nurse 2 #5 sacrum -Time 08:44 09:06 09:19 -Correct Patient Yes Yes Yes -Correct Side, Site, Position Yes Yes Yes -Correct Procedure Yes Yes Yes -Procedure Performed Yes Yes Yes -Type of Procedure Debridement Debridement Debridement -Clinical Debridement Subcutaneous Subcutaneous Subcutaneous -Post Debridement Size (cm) - Length 1.3 1.2 1.0 -Post Debridement Size (cm) - Width 3.3 3.4 3.4 -Post Debridement Size (cm) - Depth 1.2 1.1 1.2 -Total Square Cm 4.29 4.08 3.40 -Wound/Ulcer Outcome Not Healed Not Healed Not Healed -Ulcer Cleansing Rinsed/ Rinsed/ Irrigated with Irrigated with Saline Saline -Foul Odor after Cleansing No No No -Bioengineered Tissue No No No -Bleeding Controlled with Pressure Pressure Pressure -Treatment Response Procedure Procedure Procedure Tolerated Well Tolerated Well Tolerated Well Pain Scale: 0-10 Numeric Is Patient Pain Free? Yes Yes Yes Wound debrided: Sacral ulcer Wound Grade/Stage: Stage IV Type of Debridement: Excisional debridement Anesthesia Used: 4% Lidocaine Solution Depth: Down to and including healthy tissue, in the subcutaneous layer Percentage of wound debrided: 100 Instrument Used: 3mm curette, #15 blade, Forceps Tissue Removed: slough and devitalized tissue Severity: Fat Layer Exposed Amount of bleeding with debridement: Mild Bleeding Controlled with: Pressure Patient tolerated procedure well Assessment/Plan Active Problems (Last Reviewed 04/19/18 @ 15:10 by Mitchell Henderson MD) Pressure ulcer of sacral region, stage 4 (Chronic) Assessment: 1. Sacral pressure sore, Stage IV. 2. Nonhealing abdominal wall wound from her surgery in December. 3. s/p repair colovaginal fistula. Plan: Stable sacral ulcer. Debridement of sacral ulcer done, procedure was well-tolerated. Continue Fibracol to ulcer and change every other day. Continue increased protein intake. Surgery with Dr seay yet to be rescheduled now that she has cardiac clearance. All her questions were answered and she was asked to call with any further questions or concerns. Follow-up tentatively in 2 weeks. This note was generated with [employer] software. It may contain incorrect words, spelling, and punctuation that were not noted in checking the note before signing.
== END 2018-05-03 23:59 ==
LOC: WC 09:00
PROVIDERS: Family Provider Family Medicine Geriatric Medicine; PCP Family Medicine Geriatric Medicine; Visit Provider Internal Medicine
DX: L89.154 Pressure ulcer of sacral region, stage 4 (principal)
CPT/HCPCS: 11042

== ENCOUNTER 2018-05-15 11:22 | Inpatient (IN) | payer MEDICARE, OTHER, SELFPAY ==
[2018-05-14] VITALS (9 sets, daily range): BP systolic 101–155; BP diastolic 61–85; PULSE 70–103; RESP 16–18; TEMP 36.6–37; O2SAT 92–98; BMI 34.8
--- NOTE | 2018-05-14 | PCM.HP.BLA ---
History and Physical Date of Admission: 05/14/18 HISTORY OF PRESENT ILLNESS 67 year old woman presents for further evaluation of her sacral pressure sore. I initially saw her in August. A CT was done which showed no evidence of osteomyelitis, but did show evidence of a colovaginal fistula. The fistula was surgically repaired in December at [facility]. She had a sacral wound culture done on 01/02/18 and it showed Staphylococcus aureus. She was treated with antibiotics. She was recently [facility] from a [facility]. I was asked to evaluate her sacral pressure sore for surgical options for treatment. PAST MEDICAL HISTORY Depression. GERD. Colovaginal fistula. Hypertension. Hypothyroidism. Neuropathy. PAST SURGICAL HISTORY Hysterectomy. Excision of sacral pressure sore - 04/20 Repair of colovaginal fistula - 12/19 MEDICATIONS Vitamin C. Aspirin. Vitamin D3. Synthroid. Omeprazole. K-dur. ALLERGIES Bee venom. Skelaxin. FAMILY HISTORY Positive for COPD, Lung cancer, Myocardial infarction. SOCIAL HISTORY Patient is a former smoker. Patient does not drink alcohol. REVIEW OF SYSTEMS General - Denies fever, fatigue, and weight loss. Eyes - Denies cataracts and glaucoma. ENT - Denies nasal congestion and sore throat. Endocrine - Denies excessive thirst and urination. Skin - Denies suspicious lesions and skin cancer. Has sacral pressure sore. Musculoskeletal - Denies joint pain, joint stiffness, weakness of muscles and joints, back pain, and arthritis. Neuro - Denies headaches. Cardiovascular - Denies chest pain, fatigue, and shortness of breath with exertion. Psych - Denies anxiety. Has depression. Respiratory - Denies chronic cough and shortness of breath. Gastrointestinal - Denies nausea, vomiting, diarrhea, and constipation. had repair colovaginal fistula. Hematologic - Denies abnormal bruising and bleeding. Genitourinary - Denies hematuria and urinary frequency. PHYSICAL EXAMINATION General - Alert and Oriented HEENT - PERRL. EOMI. Throat is clear. Neck - Supple and nontender. No cervical adenopathy. Lungs - Clear to auscultation. Heart - Regular rate and rhythm. Abdomen - Soft and nondistended. Extremities - FROM. No axillary adenopathy. Radial pulses are palpable. Back - On the sacral area is a pressure sore that extends to the bone. The bone is palpable but not exposed. It is a Stage IV. Measures 1.5 x 3.5 x 1.5 cm. There is some superior undermining measuring about 1.5 cm. Some granulation tissue is seen. Some abnormal scar tissue seen. No fluctuance or purulent drainage noted. Neuro - CN II-XII grossly intact. Psych - Normal mood and affect. ASSESSMENT 1. Sacral pressure sore, Stage IV. 2. s/p repair colovaginal fistula. PLAN Continue Fibracol dressing changes to the sacrum. Her sacral pressure sore is stable but has some undermining. There is abnormal scar tissue present that will not heal without operative debridement of the pressure sore. If it extends down to the bone than a partial ostectomy for osteomyelitis will be done. Postop will begin wound care with the VAC. Depending on how well healing occurs, she may need additional surgery with a fasciocutaneous or muscle flap for closure. Because she is ambulatory, her ulcer may heal with aggressive wound care, taking care of any infection, and maximizing nutrition. Will check a Prealbumin at the time of surgery. Surgery will be done under general anesthesia with a surgical observation overnight stay at the hospital. The following day the VAC will be applied. Tissue will be sent to Pathology and Microbiology. A positive culture will necessitate antibiotic therapy. Patient was informed of the risks and complications of the procedure including alternatives to surgery. These were discussed with her personally. She voices understanding and wishes to proceed. She understands the pressure sore will be made bigger in order to make the wound care easier with the VAC. With the amount of undermining, it is harder to heal because it is hard to pack the edges consistently because they are not visualized.
--- NOTE | 2018-05-14 13:25 | PRES_PTH ---
PATIENT: CHARISSA GUNTER LOC: [facility] U#:[id number] AGE/SX: 67/F ROOM: [facility]319 RE05/15/[address]: Dr. Raúl Villareal DO : 1950 BED: 1 DIS: 05/17/2018 SPEC #: [id number] RECD: 05/15/18 11:02 STATUS: EUSEBIO HAYNES #: [id number] KATY: 05/14/18 13:[address]: Regino Hansen DEPT: SURGICAL PATHOLOGY RECD BY: Esvin Shine ENTERED: 05/15/18 11:33 SP TYPE: PRESS SORE OTHR DR: Dr. Chema Sanchez MD Tissues: A - Ischium, NOS B - Ischium, NOS Procedures: Decalcification bone/plaque Surgery Specimen Level IV HEADER OPERATION: Excision sacral pressure sore, partial ostectomy PRE-OP DIAGNOSIS: Sacral pressure sore stage IV TISSUE SUBMITTED: A - Sacral pressure sore bone, B - Sacral pressure sore tissue MICROSCOPIC DIAGNOSIS A. Sacral pressure bone, biopsy: Consistent with chronic change. Focal changes suspicious for acute osteomyelitis. B. Skin and soft tissue of sacral ulcer, biopsy: Ulceration with associated acute and chronic inflammation and granulation. AM:andrew 05/20/18 MICROSCOPIC DESCRIPTION Slides are reviewed. GROSS DESCRIPTION A - Received in fixative is one container labeled with the patient's name and designated sacral pressure sore bone. The specimen consists of multiple pieces of bone that in aggregate measure 5 x 3 x 0.3 cm. The entire specimen is submitted in two cassettes after decalcification. B - Received in fixative is one container labeled with the patient's name and designated sacral pressure sore tissue. The specimen consists of a piece of skin with underlying tissue measuring 6 x 3 cm and up to 5 cm in depth. Extensive area of ulceration is noted. No mass lesion is identified. Housekeeping/Laundry Supervisor sections are submitted in three cassettes. / SJ:andrew 05/15/18 TC:2 CPT: 81328 x2, 63470
--- NOTE | 2018-05-14 15:43 | OP.PN_ITS ---
Immediate Post-Op Note Date of Procedure: 05/14/18 Primary Surgeon/Physician: Regino Hansen attendant self service store: None Pre-Operative Diagnosis: 1. Sacral pressure sore, Stage IV. 2. s/p repair colovaginal fistula. Post-Operative Diagnosis: Same. Surgery/Procedure Performed:: Excision sacral pressure sore, Stage IV, with partial ostectomy for osteomyelitis. Description of Surgical Findings:: 67 year old woman presents for further evaluation of her sacral pressure sore. I initially saw her in August. A CT was done which showed no evidence of osteomyelitis, but did show evidence of a colovaginal fistula. The fistula was surgically repaired in December at [facility]. She had a sacral wound culture done on 01/02/18 and it showed Staphylococcus aureus. She was treated with antibiotics. She was recently discharged from a long term. I was asked to evaluate her sacral pressure sore for surgical options for treatment. Today the patient underwent excision sacral pressure sore, Stage IV, with partial ostectomy for osteomyelitis. Size of defect sacral area - 10.5 x 6.5 x 2.5 cm. Estimated Blood Loss: 100 ml. Specimen's removed: 1. Sacral pressure sore soft tissue to Pathology and Microbiology. 2. Sacral pressure sore bone to Pathology and Microbiology. Drains: None. Type of Anesthesia:: General - Admit VTE Documentation VTE Present on Admission: No VTE Mechan Device Prophylaxis: SCD's VTE Pharm Prophylaxis ordered?: No
[2018-05-14] MEDS: Pantoprazole Sodium 40 MG Tablet PO (17:42)
--- NOTE | 2018-05-14 19:04 | PCM.OPRPT ---
Report of Operation Date of Procedure: 05/14/18 Pre-Operative Diagnosis: 1. Sacral pressure sore, Stage IV. 2. s/p repair colovaginal fistula. Post-Operative Diagnosis: Same. Surgery/Procedure Performed:: Excision sacral pressure sore, Stage IV, with partial ostectomy for osteomyelitis. Description of Surgical Findings:: 67 year old woman presents for further evaluation of her sacral pressure sore. I initially saw her in August. A CT was done which showed no evidence of osteomyelitis, but did show evidence of a colovaginal fistula. The fistula was surgically repaired in December at [facility]. She had a sacral wound culture done on 01/02/18 and it showed Staphylococcus aureus. She was treated with antibiotics. She was recently discharged from a assisted. I was asked to evaluate her sacral pressure sore for surgical options for treatment. Patient was informed of the risks and complications of the procedure including alternatives to surgery. These were discussed with the patient personally. Patient voices understanding and wishes to proceed. Size of defect sacral area - 10.5 x 6.5 x 2.5 cm. quality improvement manager: None Type of Anesthesia:: General Specimen's removed: 1. Sacral pressure sore soft tissue to Pathology and Microbiology. 2. Sacral pressure sore bone to Pathology and Microbiology. Drains: None. Estimated Blood Loss (mL): 100 ml. Description of Procedure: Patient was taken to OR in supine position and was placed under general anesthesia. She was then placed in the prone position. The sacral area was prepped and draped in the usual fashion. SCD's were placed for DVT prophylaxis. Perioperative antibiotics were given intravenously. Using xylocaine with epinephrine, the sacral pressure sore was infiltrated. After waiting 5 minutes for the anesthetic to take effect, I excised the sacral pressure sore in a circular fashion to include the undermined areas as well. Dissection was carried down into the subcutaneous tissue through the scarred muscle which was adherent to the underlying bone. A partial ostectomy was then performed using rongeurs. The bone looked grayish and was not very hard. Clinically the bone looked suspicious for osteomyelitis. A rasp was used to smooth out the bony edges. After excising the abnormal bursal scar tissue, the remaining soft tissue showed good bleeding. Hemostasis was obtained with electrocautery. The size of the sacral pressure sore after excision was 10.5 x 6.5 x 2.5 cm. Bone wax was needed to help with hemostasis of the raw bryon edges. I then dressed the wound with Mepitel nonadherent dressing followed by Kerlix gauze and Betadine and dry Kerlix gauze followed by ABD pads compression dressing. Half the soft tissue and half the bone was sent to Pathology for analysis to rule out carcinoma and to evaluate for osteomyelitis. Half the soft tissue and half the bone was sent to Microbiology for culture. A positive culture may necessitate antibiotic modification. If pathology is positive for osteomyelitis, then skilled nursing IV antibiotics would be needed through a PICC line. She would also be evaluated at the Wound Center for HBO treatments. Patient tolerated the procedure well and was sent to PACU in satisfactory condition. Patient will be sent upstairs for continued postop care. The VAC will be placed tomorrow. Anticipate increased metabolic demands. Will check a Prealbumin and encourage nutritional supplementation with protein to help the healing process. Grafts/Implants Used: None. - Complications None. - Admit VTE Documentation VTE Present on Admission: No VTE Mechan Device Prophylaxis: SCD's VTE Pharm Prophylaxis ordered?: No Code Visit Surgery Charges CPT - 40023 ICD-10 - L89.154
[2018-05-14] MEDS: Acetaminophen 325 MG Tablet 650 MG PO (21:16)
[2018-05-14] MEDS: Docusate Sodium 100 MG Capsule PO (21:16)
[2018-05-14] MEDS: HYDROmorphone 1 MG/ML Syringe IV (23:21)
[2018-05-14] MEDS: Lactated Ringers 1,000 ML 60 ML IV (23:21)
--- NOTE | 2018-05-14 23:47 | PCM.PN.BLA ---
Progress Note I was called to the bedside because the patient had recently gotten up to the bathroom and started having some bloody drainage from the operative dressing. The dressing was re-enforced and the bloody oozing continued. On exam, the patient is awake and alert. VS stable. The operative dressing was changed. Some stable clot was removed, about 50 ml. Small amounts of oozing seen in the subcutaneous tissue inferiorly. Hemostasis was easily obtained with gauze pressure and silver nitrate chemical cauterization. The wound was repacked with dry 4x4 gauze and dry Kerlix gauze followed by ABD pads compression dressing. Will change the order to bedrest until the morning. A maier catheter will be placed. If no more oozing seen tomorrow, then will place the VAC. If oozing persistent, will repack with a compression dressing until the following day. Will check a Hgb in the morning.
[2018-05-15] MEDS: Silver Nitrate (BKC) 10 EACH TOPICAL (00:24)
[2018-05-15 04:22] VITALS: BP 91/57; PULSE 99; RESP 16; TEMP 36.8; O2SAT 97
[2018-05-15] MEDS: Levothyroxine 25 MCG TABLET PO (06:06)
[2018-05-15] MEDS: proMETHazine 25 MG Tablet PO (06:06)
[2018-05-15 06:15] LABS: Hematocrit 24.6 % (37-47); Hemoglobin 7.2 g/dl (12.0-15.0); Mean Corp Hgb Conc 29.3 g/gl (32-36); Mean Corpuscular Hgb 20.9 pg (27.0-32.0); Mean Corpuscular Volume 71.5 fL (81-99); Mean Platelet Vol. 9.4 fl (6.2-12.0); Platelet Count 418 K/mm3 (150-450); RBC Distribution Width CV 19.7 % (11.6-14.6); Red Blood Count 3.44 M/mm3 (4.2-5.4)
[2018-05-15 06:18] LABS: Scan Indicated on CBC? Y/N YES- FLAGS NOTED
[2018-05-15 06:30] LABS: Anion Gap 11 (5-15); BUN 28 mg/dL (7-18); BUN/Creat Ratio 30.9 RATIO (10-20); Calcium,Total 8.5 mg/dL (8.5-10.1); Chloride 107 mmol/L (98-107); EST Glomerular Filtration Rate 66 mL/min (>60); Est Glom Filt Rate - Afr Amer 80 mL/min (>60); Glucose 105 mg/dL (74-106); Prealbumin 19.3 mg/dL (20.0-40.0); Sodium Level 141 mmol/L (136-145)
--- NOTE | 2018-05-15 06:32 | NURSING ---
Went in to assess pt and noticed she was appearing more pale than usual. Assessed VS's, BP had dropped down to 91/54. Assessed pts wound and for the 3rd time this shift her dressing was copiously saturated with serosanguineous blood. Redressed the wound and noticed while applying the kerlix packing that she had large clots that had formed below the Kerlix. Patted dry as best as possible. After redressing noticed that the pts Hgb from this morning came back as 7.2. Attempted to call Dr. Hansen with no success. Left a message to return call back to ext. [phone]. Will pass on the word to dayshift if there is no response during my shift.
[2018-05-15 06:40] LABS: Differential Comment SCAN
[2018-05-15 08:00] VITALS: BP 91/47; PULSE 97; RESP 18; TEMP 37.8; O2SAT 93
[2018-05-15] MEDS: Ascorbic Acid 500 MG Tablet PO (08:09)
[2018-05-15] MEDS: Omega-3 Acid Ethyl Esters 1 GM Capsule PO (09:23)
[2018-05-15] MEDS: Docusate Sodium 100 MG Capsule PO (09:23)
--- NOTE | 2018-05-15 10:00 | CASEMGMT ---
RN CM Face to Face with patient for initial transition planning/care coordination assessment. RN CM introduced self and role at [facility]. Patient lying in bed, alert and oriented. Patient willing to participate in assessment and is able to answer all questions appropriately. Care providers, pharmacy, and demographics verified. Patient wishes to discharge home and is already setup with [facility] for long term. Patient wishes to resume HHC at discharge. Patient states she has no further needs or concerns at this time. CM to follow for discharge planning needs that may arise. PCP: Daniel Specialists: None Preferred Pharmacy: [facility] Insurance: [facility], [employer] Prescription Benefit: YES Living Will/HPOA: Yes, brother Jaspal Durant HPOA LNOK: Brother Living Arrangements: Patient lives alone in 1 story home with 2 steps to enter home. Has assistance with laundry Transportation: Self, [facility] transport van DME/HHC: Patient has cane and walker. [facility] for HHC Disposition Plan: Patient to discharge home with family support, HHC, and follow-up plans in place. Ksenia GÓMEZ, RN, CM
[2018-05-15] MEDS: HYDROmorphone 1 MG/ML Syringe IV (10:11)
[2018-05-15] MEDS: 0.9% NaCl Peripheral Flush Adult/Peds IV (10:12)
[2018-05-15 10:44] VITALS: BP 118/62; PULSE 105; RESP 16; TEMP 37; O2SAT 91
--- NOTE | 2018-05-15 11:34 | NURSING ---
WOUND PHOTO- [facility]
--- NOTE | 2018-05-15 13:04 | OP.PCM_ITS ---
Report of Operation Date of Procedure: 05/14/18 Pre-Operative Diagnosis: 1. Sacral pressure sore, Stage IV. 2. s/p repair colovaginal fistula. Post-Operative Diagnosis: Same. Surgery/Procedure Performed:: Excision sacral pressure sore, Stage IV, with partial ostectomy for osteomyelitis. Description of Surgical Findings:: 67 year old woman presents for further evaluation of her sacral pressure sore. I initially saw her in August. A CT was done which showed no evidence of osteomyelitis, but did show evidence of a colovaginal fistula. The fistula was surgically repaired in December at [facility]. She had a sacral wound culture done on 01/02/18 and it showed Staphylococcus aureus. She was treated with antibiotics. She was recently discharged from a long term. I was asked to evaluate her sacral pressure sore for surgical options for treatment. Patient was informed of the risks and complications of the procedure including alternatives to surgery. These were discussed with the patient personally. Patient voices understanding and wishes to proceed. Size of defect sacral area - 10.5 x 6.5 x 2.5 cm. 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 Sacral pressure sore soft tissue to Pathology and Microbiology. 2. Sacral pressure sore bone to Pathology and Microbiology. Drains: None. Estimated Blood Loss (mL): 100 ml. Description of Procedure: Patient was taken to OR in supine position and was placed under general anesthesia. She was then placed in the prone position. The sacral area was prepped and draped in the usual fashion. SCD's were placed for DVT prophylaxis. Perioperative antibiotics were given intravenously. Using xylocaine with epi nephrine, the sacral pressure sore was infiltrated. After waiting 5 minutes for the anesthetic to take effect, I excised the sacral pressure sore in a circular fashion to include the undermined areas as well. Dissection was carried down into the subcutaneous tissue through the scarred muscle which was adherent to the underlying bone. A partial ostectomy was then performed using rongeurs. The bone looked grayish and was not very hard. Clinically the bone looked suspicious for osteomyelitis. A rasp was used to smooth out the bony edges. After excising the abnormal bursal scar tissue, the remaining soft tissue showed good bleeding. Hemostasis was obtained with electrocautery. The size of the sacral pressure sore after excision was 10.5 x 6.5 x 2.5 cm. Bone wax was needed to help with hemostasis of the raw bryon edges. I then dressed the wound with Mepitel nonadherent dressing followed by Kerlix gauze and Betadine and dry Kerlix gauze followed by ABD pads compression dressing. Half the soft tissue and half the bone was sent to Pathology for analysis to rule out carcinoma and to evaluate for osteomyelitis. Half the soft tissue and half the bone was sent to Microbiology for culture. A positive culture may necessitate antibiotic modification. 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 She would also be evaluated at the [facility] for HBO treatments. Patient tolerated the procedure well and was sent to PACU in satisfactory condition. Patient will be sent upstairs for continued postop care. The VAC will be placed tomorrow. Anticipate increased metabolic demands. Will check a Prealbumin and encourage nutritional supplementation with protein to help the healing process. Grafts/Implants Used: None. - Complications None. - Admit VTE Documentation VTE Present on Admission: No VTE Mechan Device Prophylaxis: SCD's VTE Pharm Prophylaxis ordered?: No Code Visit Surgery Charges CPT - 38074 ICD-10 - L89.154
[2018-05-15 13:53] VITALS: BP 99/61; PULSE 104; RESP 16; TEMP 37.3; O2SAT 94
[2018-05-15] MEDS: Acetaminophen 325 MG Tablet 650 MG PO (14:15)
[2018-05-15] MEDS: oxyCODONE 5 MG Tablet 10 MG PO (14:16)
[2018-05-15] MEDS: Pantoprazole Sodium 40 MG Tablet PO (17:40)
[2018-05-15] MEDS: Lactated Ringers 1,000 ML 60 ML IV (17:47)
--- NOTE | 2018-05-15 19:43 | PCM.PN.SRG ---
Subjective: Postop #1 Patient is resting comfortably. VAC applied today. - Physical Exam General: Alert, Oriented x3 HEENT: PERRLA, EOMI Oral: Moist Mucosa Neck: Supple Abdomen: Soft, Non-Distended Skin: Ulcer/ Wound - sacral wound is stable. No active bleeding seen. VAC applied today. Neurological: Cranial nerves II-XII grossly intact Psych/Mental Status: Normal Affect, Appropriate Vital Signs Temp Pulse Resp BP Pulse Ox 99.1 F 104 H 16 99/61 94 05/15/18 13:53 05/15/18 13:53 05/15/18 13:53 05/15/18 13:53 05/15/18 13:53 Oxygen Delivery Method Room Air Weight: 202 lb 13.204 oz Body Mass Index (BMI) 34.8 Intake and Output for Last 24 Hours 05/13/18 05/14/18 05/15/18 23:59 23:59 23:59 Intake Total 600 / 600 1672 / 1672 Output Total 1475 / 1475 Balance 600 / 600 197 / 197 Microbiology Past 72 Hours 05/14/18 Unknown Gram Stain - Final Bone - Other Wound Culture - Preliminary No growth-Final to follow 05/14/18 Unknown Gram Stain - Final Tissue - Sacral Wound Culture - Preliminary No growth-Final to follow Laboratory Tests Past 24 Hrs 05/15/18 05/15/18 05:28 05:28 WBC 21.0 H RBC 3.44 L Hgb 7.2 L Hct 24.6 L MCV 71.5 L MCH 20.9 L MCHC 29.3 L RDW 19.7 H RDW Differential 50.0 H Plt Count 418 MPV 9.4 Differential Comment SCAN Sodium 141 Potassium 4.0 Chloride 107 Carbon Dioxide 23.0 Anion Gap 11 BUN 28 H Creatinine 0.90 Estim Creat Clear Calc 53.10 Est GFR (MDRD) Af Amer 80 Est GFR (MDRD) Non-Af 66 BUN/Creatinine Ratio 30.9 H Glucose 105 Calcium 8.5 Prealbumin 19.3 L Pathology - pending. Medical Necessity - Tobacco Use Smoking Status: Former smoker Assessment/Plan All Active Problems (Last Reviewed 04/19/18 @ 15:10 by Mitchell Henderson MD) Preop cardiovascular exam (Acute) Colovaginal fistula (Acute) Failure to thrive (Acute) Clostridium difficile colitis (Acute) Septic shock (Resolved) VITO (acute kidney injury) (Resolved) Encephalopathy (Resolved) Atrial fibrillation with RVR (Resolved) Clostridium difficile infection (Resolved) Rhabdomyolysis (Resolved) 1. Sacral pressure sore, Stage IV. 2. s/p repair colovaginal fistula. 3. s/p excision sacral pressure sore, Stage IV, with partial ostectomy for osteomyelitis. 4. Anemia of chronic disease, acute on chronic. VAC applied today. No active bleeding seen. There was some bleeding last night that was controlled with gauze pressure and silver nitrate chemical cauterization. Hgb low today at 7.2. Patient has anemia of chronic disease, acute on chronic. There was some blood loss from surgery and from the oozy dressing change last night, about 150 ml combined. There is also some IV fluid dilution as well. Will transfuse PRBC and recheck Hgb tomorrow. Will also add Iron supplementation as well. Continue Unasyn antibiotics. Operative cultures are pending. Pathology is pending. Prealbumin was 19.3. Encourage nutritional supplementation with protein to help the healing process. Patient will go home with the maier catheter. It will be removed at the [facility]ound Center.
[2018-05-15 20:18] VITALS: BP 99/66; PULSE 97; RESP 16; TEMP 37.2; O2SAT 94
[2018-05-16] VITALS (27 sets, daily range): BP systolic 92–136; BP diastolic 47–91; PULSE 76–92; RESP 16–18; TEMP 36.6–37.7; O2SAT 94–97
[2018-05-16 02:11] LABS: Hematocrit 19.9 % (37-47); Mean Corp Hgb Conc 29.1 g/gl (32-36); Mean Corpuscular Hgb 20.6 pg (27.0-32.0); Mean Corpuscular Volume 70.6 fL (81-99); Mean Platelet Vol. 8.4 fl (6.2-12.0); Platelet Count 316 K/mm3 (150-450); RBC Distribution Width CV 19.6 % (11.6-14.6); RBC Distribution Width SD 50.4 fl (35.1-43.9); Red Blood Count 2.82 M/mm3 (4.2-5.4); White Blood Count 13.3 K/mm3 (4.4-11.0)
[2018-05-16] MEDS: Lactated Ringers 1,000 ML 100 ML IV ×2 (02:22→22:42)
[2018-05-16 02:36] LABS: BUN 24 mg/dL (7-18); Creatinine, Serum 0.62 mg/dL (0.55-1.02); Estimated Creatinine Clearance 47.79 ml/min; Glucose 104 mg/dL (74-106)
[2018-05-16 02:37] LABS: Anion Gap 5 (5-15); BUN/Creat Ratio 38.8 RATIO (10-20); Calcium,Total 8.2 mg/dL (8.5-10.1); Chloride 111 mmol/L (98-107); EST Glomerular Filtration Rate 102 mL/min (>60); Est Glom Filt Rate - Afr Amer 124 mL/min (>60); Potassium 3.7 mmol/L (3.5-5.1); Sodium Level 143 mmol/L (136-145)
[2018-05-16 02:41] LABS: Scan Indicated on CBC? Y/N YES- FLAGS NOTED
[2018-05-16 02:43] LABS: Hemoglobin 5.8 g/dl (12.0-15.0)
[2018-05-16 02:45] LABS: Differential Comment SCANNED
[2018-05-16] MEDS: Acetaminophen 325 MG Tablet 650 MG PO ×3 (03:54→23:59)
[2018-05-16] MEDS: Levothyroxine 25 MCG TABLET PO (06:04)
[2018-05-16] MEDS: Docusate Sodium 100 MG Capsule PO ×2 (09:35→22:44)
[2018-05-16] MEDS: Ascorbic Acid 500 MG Tablet PO (09:35)
[2018-05-16] MEDS: Iron Polysaccharide Complex 150 MG CAPSULE PO (09:35)
[2018-05-16] MEDS: Omega-3 Acid Ethyl Esters 1 GM Capsule PO (09:35)
--- NOTE | 2018-05-16 10:30 | CT_ITS ---
STUDY: CT ABDOMEN AND PELVIS WITHOUT CONTRAST REASON FOR EXAM: Female, 67 years old. Sacral wound. History of colovaginal fistula. RADIATION DOSAGE (If Supplied By Facility): CTDIvol = ( 17.97 ) mGy, DLP = ( 940.13 ) mGycm TECHNIQUE: Transaxial images were obtained from the dome of the diaphragm to the symphysis pubis without oral contrast, and without intravenous contrast. Sagittal and coronal images were reconstructed. Individualized dose optimization techniques were used for this CT. COMPARISON: Comparison is made with prior study dated August 09, 2017. FINDINGS: The visualized lung bases are unremarkable. Coronary artery calcification. Normal liver. Normal gallbladder and extrahepatic biliary system. Normal spleen. Normal pancreas. Normal bilateral adrenal glands. Punctate calcification in the lower pole calyx of the right kidney. 2 mm calculus in the lower pole calyx of the left kidney. There is a small hiatal hernia. Normal small intestine. Moderate amount of fecal material is seen in the rectosigmoid colon. Surgical anastomosis is seen in the sigmoid colon. The appendix is visualized and appears normal. There is diffuse atherosclerotic calcification of the abdominal aorta and the major visceral branches, without a demonstrated aneurysm. Normal inferior vena cava. There is borderline retroperitoneal lymphadenopathy with enlarged nodes no greater than 10mm in the short axis diameter. A Grewal catheter is seen within the bladder. The bladder is empty at the time of the examination. There is absence of the uterus consistent with a prior hysterectomy. There is evidence of a 2.8 cm x 7.2 cm tissue defect overlying the inferior aspect of the sacrum. No bony destruction is seen. The defect abuts the posterior lower sacrum. Normal abdominal wall. There are mild degenerative changes of the visualized lumbar spine. Marked degree of the osteoarthritis of both hip joints with subchondral cystic changes. CT/Abdomen/Pelvis without Cont IMPRESSION: Since prior study, the skin soft tissue defect overlying the distal portion of the sacrum as progressed. The defect abuts the sacral bone although there is no evidence of bony destruction at this time. The remainder the examination is unchanged. Electronically Signed: Fidel Rojas MD at 12:47 EST Tel [phone], Service support ,
--- NOTE | 2018-05-16 10:32 | PCM.PN.SRG ---
Patient Problems: Active and Suspected Problems (Last Reviewed 05/16/18 @ 14:58 by Raúl Villareal DO) Acute blood loss anemia (Acute) Subjective: Postop #2 Patient is resting comfortably. - Physical Exam General: Alert, Oriented x3 HEENT: PERRLA, EOMI Oral: Moist Mucosa Neck: Supple Abdomen: Soft, Non Tender, Non-Distended Skin: Ulcer/ Wound - VAC in place. Small amount drainage in the canister. Neurological: Cranial nerves II-XII grossly intact Psych/Mental Status: Normal Affect, Appropriate Vital Signs Temp Pulse Resp BP Pulse Ox 98.0 F 83 16 98/53 L 95 05/16/18 10:30 05/16/18 10:30 05/16/18 10:30 05/16/18 10:30 05/16/18 10:30 Oxygen Delivery Method Room Air Weight: 202 lb 13.204 oz Body Mass Index (BMI) 34.8 Intake and Output for Last 24 Hours 05/14/18 05/15/18 05/16/18 23:59 23:59 23:59 Intake Total 600 / 600 1672 / 1672 2360 / 2360 Output Total 1475 / 1475 1050 / 1050 Balance 600 / 600 197 / 197 1310 / 1310 Microbiology Past 72 Hours 05/14/18 Unknown Gram Stain - Final Bone - Other Wound Culture - Preliminary No growth-Final to follow Anaerobic Culture - Preliminary No growth in 48 hours. 05/14/18 Unknown Gram Stain - Final Tissue - Sacral Wound Culture - Preliminary No growth-Final to follow Anaerobic Culture - Preliminary No growth in 48 hours. Laboratory Tests Past 24 Hrs 05/16/18 05/16/18 05/16/18 01:30 01:30 01:30 WBC 13.3 H RBC 2.82 L Hgb 5.8 L* Hct 19.9 L MCV 70.6 L MCH 20.6 L MCHC 29.1 L RDW 19.6 H RDW Differential 50.4 H Plt Count 316 MPV 8.4 Differential Comment SCANNED Diff Path Review October Sodium 143 Potassium 3.7 Chloride 111 H Carbon Dioxide 27.0 Anion Gap 5 BUN 24 H Creatinine 0.62 Estim Creat Clear Calc 47.79 Est GFR (MDRD) Af Amer 124 Est GFR (MDRD) Non-Af 102 BUN/Creatinine Ratio 38.8 H Glucose 104 Calcium 8.2 L Blood Type A POSITIVE Antibody Screen NEGATIVE Crossmatch See Detail 05/16/18 01:30 WBC RBC Hgb Hct MCV MCH MCHC RDW RDW Differential Plt Count MPV Differential Comment Diff Path Review Sodium Potassium Chloride Carbon Dioxide Anion Gap BUN Creatinine Estim Creat Clear Calc Est GFR (MDRD) Af Amer Est GFR (MDRD) Non-Af BUN/Creatinine Ratio Glucose Calcium Blood Type Antibody Screen Crossmatch See Detail Pathology - pending. Medical Necessity - Tobacco Use Smoking Status: Former smoker Assessment/Plan All Active Problems (Last Reviewed 05/16/18 @ 14:58 by Raúl Villareal DO) Acute blood loss anemia (Acute) Preop cardiovascular exam (Acute) Colovaginal fistula (Acute) Failure to thrive (Acute) Clostridium difficile colitis (Acute) Septic shock (Resolved) VITO (acute kidney injury) (Resolved) Encephalopathy (Resolved) Atrial fibrillation with RVR (Resolved) Clostridium difficile infection (Resolved) Rhabdomyolysis (Resolved) 1. Sacral pressure sore, Stage IV. 2. s/p repair colovaginal fistula. 3. s/p excision sacral pressure sore, Stage IV, with partial ostectomy for osteomyelitis. 4. Anemia of chronic disease, acute on chronic. VAC in place. No active bleeding seen. There was some bleeding the other night that was controlled with gauze pressure and silver nitrate chemical cauterization. Small amount of drainage in the canister. Patient is awake and alert and resting comfortably at the time I saw her. Hgb has dropped from 7.2 to 5.8. Patient has anemia of chronic disease, acute on chronic. There was some blood loss from surgery and from the oozy dressing change last night, about 150 ml combined. There is also some IV fluid dilution as well. However the bleeding that has occurred in the wound does not explain the drop in Hgb all the way down to 5.8. She has received some PRBC and is currently getting 2 more units. Will check a CT Abdomen and Pelvis to look for a source of bleeding. Will consult Hospitalist for evaluation. May need endoscopy to look for source. Continue Unasyn antibiotics. Operative cultures are pending. Pathology is pending. Prealbumin was 19.3. Encourage nutritional supplementation with protein to help the healing process. Patient will go home with the maier catheter. It will be removed at the [facility]ound Center.
--- NOTE | 2018-05-16 12:41 | NURSING ---
called [facility] for continual alarm on mattress, confirm. #[phone]
--- NOTE | 2018-05-16 14:51 | PCM.CONS.GEN ---
Problem List (1) Acute blood loss anemia Status: Acute Reason for Consult Date of Consultation: 05/16/18 Reason for Consultation: Consult requested by Dr. Hansen for anemia. History of Present Illness: The patient is a 67 year old F who underwent an excision of a stage IV sacral ulcer on 05/15. ESBL was about 1500cc. Post op hemoglobin was 7.2 and Hg on 04/30 was 10.3. She received 1 unit PRBCs then hg was 5.8 and has been written for 3 more units. Pt states that she did have self-remitting hematochezia about 2 months ago, but none since and no melena. No hematochezia. [] Past Medical History Past Medical History (Chronic Problems): Chronic Problems (Last Reviewed 04/19/18 @ 15:10 by Mitchell Henderson MD) Secondary pulmonary arterial hypertension (Chronic) Non-rheumatic tricuspid valve insufficiency (Chronic) Abnormal electrocardiogram (Chronic) Essential (primary) hypertension (Chronic) Non-healing surgical wound (Chronic) Pressure ulcer of right heel, stage 3 (Chronic) Pressure ulcer of left heel, stage 3 (Chronic) Morbid obesity with BMI of 40.0-44.9, adult (Chronic) GERD (gastroesophageal reflux disease) (Chronic) Depression (Chronic) Hypothyroidism (Chronic) Pressure ulcer of sacral region, stage 4 (Chronic) Neuropathy (Chronic) Medical History: Medical History (Last Reviewed 05/16/18 @ 14:58 by Raúl Villareal DO) Secondary pulmonary arterial hypertension (Chronic) I27.21 Non-rheumatic tricuspid valve insufficiency (Chronic) I36.1 Essential (primary) hypertension (Chronic) I10 Morbid obesity with BMI of 40.0-44.9, adult (Chronic) E66.01, Z68.41 GERD (gastroesophageal reflux disease) (Chronic) K21.9 Hypothyroidism (Chronic) E03.9 Atrial fibrillation with RVR (Resolved) I48.91 Abnormal Pap smear of cervix R87.619 Anemia D64.9 Back pain M54.9 GERD (gastroesophageal reflux disease) K21.9 Heart murmur R01.1 Sacral wound S31.000A Thyroid disorder E07.9 anixety and depression Hypertension I10 Allergies bee venom protein (honey bee) Allergy (Verified 04/19/18 13:56) Angioedema metaxalone [From Skelaxin] Allergy (Verified 04/19/18 13:56) Swelling Home Medications: Ambulatory Orders Medication Instructions Recorded Levothyroxine [Synthroid] 25 mcg PO DAILY 03/02/17 cholecalciferol (vitamin D3) 50,000 unit PO QMONTH 08/02/17 50,000 unit capsule Ascorbic Acid 500 mg PO DAILY 08/21/17 Potassium Chloride [K-Dur] 40 meq PO DAILY 12/26/17 Aspirin E.C. [Ecotrin] 81 mg PO DAILY 04/11/18 Omeprazole 40 mg PO 1800 04/11/18 green tea leaf extract capsule 1 cap PO DAILY cap 04/19/18 omega-3 fatty acids 1,000 mg 1,000 mg PO DAILY 04/19/18 capsule Surgical History: Surgical History (Last Reviewed 05/16/18 @ 14:58 by Raúl Villareal DO) H/O dilation and curettage Z98.890 History of LAVH Z98.890, Z90.710 S/P endometrial ablation Z98.890 S/P hysterectomy Z90.710 uterine ablation History of partial colectomy Z90.49 Surgical History: - - As previously undergone hysterectomy. She is a Ab0. Surgical debridement of her sacral pressure ulceration was performed on April 12, 2017, at [facility]. Smoking Status: Former smoker - *Family History Maternal Family History: Family History (Last Reviewed 05/16/18 @ 14:58 by Raúl Villareal DO) Father Myocardial infarction Cancer Brother Heart disease Mother COPD (chronic obstructive pulmonary disease) History Items: Unknown, - - Patient's mother at the age of 82 with a history of chronic obstructive pulmonary disease. Paternal Family History: Family History (Last Reviewed 05/16/18 @ 14:58 by Raúl Villareal DO) Father Myocardial infarction Cancer Brother Heart disease Mother COPD (chronic obstructive pulmonary disease) History Items: Unknown, - - Patient's father at age of 79 with history of lung cancer and myocardial infarction. Review of Systems Constitutional: Denies: Anorexia, Chills, Fever Eyes: Denies: Blurred vision, Double vision HEENT: Denies: Head Aches, Sinus Congestion, Sinus Drainage Cardiovascular: Denies: Chest Pain, Palpitations Respiratory: Denies: Cough, Shortness of breath at rest, Sputum production Gastrointestinal: Denies: Abdominal Pain, Nausea, Vomiting Genitourinary: Denies: Dysuria, Hematuria Musculoskeletal: Denies: Joint Pain, Joint Tenderness Skin: Denies: Dryness, Jaundice Neurological: Denies: Numbness, Tingling, Focal weakness Psychiatric: Denies: Anxiety, Depression Hematologic/ Lymphatic: Denies: Easy Bruising, Easy Bleeding, Hx of blood clot Comment: A 10 point review of systems were negative except as mentioned in the history of present illness and the other review of systems. Patient Problems: Active and Suspected Problems (Last Reviewed 04/19/18 @ 15:10 by Mitchell Henderson MD) Acute blood loss anemia (Acute) - Physical Exam General: Alert, Cooperative, No apparent distress, - - Lying on her right side. Wound VAC in place. HEENT: Atraumatic, Normocephalic Neck: No Nodes, Thyroid Normal Size and Texture Lungs: Clear to auscultation, Normal air movement, No rhonchi, No wheeze Cardiovascular: Regular rate, Regular Rhythm, Normal S1, Normal S2 Abdomen: Bowel Sounds Present, Soft, Non Tender, Non-Distended, No Hepato-splenomegaly Extremities: No edema, No Calf Tenderness Psych/Mental Status: Normal Affect, Appropriate Vital Signs Temp Pulse Resp BP Pulse Ox 36.9 C 84 16 117/60 96 05/16/18 13:38 05/16/18 13:38 05/16/18 13:38 05/16/18 13:38 05/16/18 13:38 Oxygen Delivery Method Room Air Weight: 92 kg Body Mass Index (BMI) 34.8 Intake and Output for Last 24 Hours 05/14/18 05/15/18 05/16/18 23:59 23:59 23:59 Intake Total 600 / 600 1672 / 1672 2760 / 2760 Output Total 1475 / 1475 1500 / 1500 Balance 600 / 600 197 / 197 1260 / 1260 Microbiology Past 72 Hours 05/14/18 Unknown Gram Stain - Final Tissue - Sacral Wound Culture - Preliminary No growth-Final to follow Anaerobic Culture - Preliminary No growth in 48 hours. 05/14/18 Unknown Gram Stain - Final Bone - Other Wound Culture - Preliminary No growth-Final to follow Anaerobic Culture - Preliminary No growth in 48 hours. Laboratory Tests Past 24 Hrs 05/16/18 05/16/18 05/16/18 01:30 01:30 01:30 WBC 13.3 H RBC 2.82 L Hgb 5.8 L* Hct 19.9 L MCV 70.6 L MCH 20.6 L MCHC 29.1 L RDW 19.6 H RDW Differential 50.4 H Plt Count 316 MPV 8.4 Differential Comment SCANNED Diff Path Review May foll Sodium 143 Potassium 3.7 Chloride 111 H Carbon Dioxide 27.0 Anion Gap 5 BUN 24 H Creatinine 0.62 Estim Creat Clear Calc 47.79 Est GFR (MDRD) Af Amer 124 Est GFR (MDRD) Non-Af 102 BUN/Creatinine Ratio 38.8 H Glucose 104 Calcium 8.2 L Blood Type A POSITIVE Antibody Screen NEGATIVE Crossmatch See Detail 05/16/18 01:30 WBC RBC Hgb Hct MCV MCH MCHC RDW RDW Differential Plt Count MPV Differential Comment Diff Path Review Sodium Potassium Chloride Carbon Dioxide Anion Gap BUN Creatinine Estim Creat Clear Calc Est GFR (MDRD) Af Amer Est GFR (MDRD) Non-Af BUN/Creatinine Ratio Glucose Calcium Blood Type Antibody Screen Crossmatch See Detail Assessment/Plan All Active Problems (Last Reviewed 04/19/18 @ 15:10 by Mitchell Henderson MD) Acute blood loss anemia (Acute) Preop cardiovascular exam (Acute) Colovaginal fistula (Acute) Failure to thrive (Acute) Clostridium difficile colitis (Acute) Septic shock (Resolved) VITO (acute kidney injury) (Resolved) Encephalopathy (Resolved) Atrial fibrillation with RVR (Resolved) Clostridium difficile infection (Resolved) Rhabdomyolysis (Resolved) 1. Acute blood loss anemia Amount of blood loss does not seem to match up with the recorded blood count drops. 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 Patient denies any history of ulcerative colitis no Crohn's. May be some component of anemia of chronic disease due to her stage IV ulcer Given the blood the patient is received iron studies would be of low yield at this point time but patient may benefit from further iron studies at a later point to see if she will require iron supplementation. 2. Stage IV sacral ulcer Management per primary service Wound VAC in place On Unasyn Patient on oxycodone as well as hydromorphone IV. If patient is not requiring hydromorphone would recommend discontinuing it. 3. DVT prophylaxis with SCDs. Chemical prophylaxis contraindicated in light of the acute blood loss anemia. Thank you for the consult. The hospital service will continue to follow along during the course of patient's hospitalization. Code Visit Inpatient E&M: 28270 Init Hosp L2
--- NOTE | 2018-05-16 14:58 | CON.PCM_ITS ---
Problem List (1) Acute blood loss anemia Status: Acute Reason for Consult Date of Consultation: 05/16/18 Reason for Consultation: Consult requested by Dr. Hansen for anemia. History of Present Illness: The patient is a 67 year old F who underwent an excision of a stage IV sacral ulcer on 05/15. ESBL was about 1500cc. Post op hemoglobin was 7.2 and Hg on 04/30 was 10.3. She received 1 unit PRBCs then hg was 5.8 and has been written for 3 more units. Pt states that she did have self-remitting hematochezia about 2 months ago, but none since and no melena. No hematochezia. [] Past Medical History Past Medical History (Chronic Problems): Chronic Problems (Last Reviewed 04/19/18 @ 15:10 by Mitchell Henderson MD) Secondary pulmonary arterial hypertension (Chronic) Non-rheumatic tricuspid valve insufficiency (Chronic) Abnormal electrocardiogram (Chronic) Essential (primary) hypertension (Chronic) Non-healing surgical wound (Chronic) Pressure ulcer of right heel, stage 3 (Chronic) Pressure ulcer of left heel, stage 3 (Chronic) Morbid obesity with BMI of 40.0-44.9, adult (Chronic) GERD (gastroesophageal reflux disease) (Chronic) Depression (Chronic) Hypothyroidism (Chronic) Pressure ulcer of sacral region, stage 4 (Chronic) Neuropathy (Chronic) Medical History: Medical History (Last Reviewed 05/16/18 @ 14:58 by Raúl Villareal DO) Secondary pulmonary arterial hypertension (Chronic) I27.21 Non-rheumatic tricuspid valve insufficiency (Chronic) I36.1 Essential (primary) hypertension (Chronic) I10 Morbid obesity with BMI of 40.0-44.9, adult (Chronic) E66.01, Z68.41 GERD (gastroesophageal reflux disease) (Chronic) K21.9 Hypothyroidism (Chronic) E03.9 Atrial fibrillation with RVR (Resolved) I48.91 Abnormal Pap smear of cervix R87.619 Anemia D64.9 Back pain M54.9 GERD (gastroesophageal reflux disease) K21.9 Heart murmur R01.1 Sacral wound S31.000A Thyroid disorder E07.9 anixety and depression Hypertension I10 Allergies bee venom protein (honey bee) Allergy (Verified 04/19/18 13:56) Angioedema metaxalone [From Skelaxin] Allergy (Verified 04/19/18 13:56) Swelling Home Medications: Ambulatory Orders Medication Instructions Recorded Levothyroxine [Synthroid] 25 mcg PO DAILY 03/02/17 cholecalciferol (vitamin D3) 50,000 unit PO QMONTH 08/02/17 50,000 unit capsule Ascorbic Acid 500 mg PO DAILY 08/21/17 Potassium Chloride [K-Dur] 40 meq PO DAILY 12/26/17 Aspirin E.C. 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 She is a Ab0. Surgical debridement of her sacral pressure ulceration was performed on April 12, 2017, at [facility]. Smoking Status: Former smoker - *Family History Maternal Family History: Family History (Last Reviewed 05/16/18 @ 14:58 by Raúl Villareal DO) Father Myocardial infarction Cancer Brother Heart disease Mother COPD (chronic obstructive pulmonary disease) History Items: Unknown, - - Patient's mother at the age of 82 with a history of chronic obstructive pulmonary disease. Paternal Family History: Family History (Last Reviewed 05/16/18 @ 14:58 by Raúl Villareal DO) Father Myocardial infarction Cancer Brother Heart disease Mother COPD (chronic obstructive pulmonary disease) History Items: Unknown, - - Patient's father at age of 79 with history of lung cancer and myocardial infarction. Review of Systems Constitutional: Denies: Anorexia, Chills, Fever Eyes: Denies: Blurred vision, Double vision HEENT: Denies: Head Aches, Sinus Congestion, Sinus Drainage Cardiovascular: Denies: Chest Pain, Palpitations Respiratory: Denies: Cough, Shortness of breath at rest, Sputum production Gastrointestinal: Denies: Abdominal Pain, Nausea, Vomiting Genitourinary: Denies: Dysuria, Hematuria Musculoskeletal: Denies: Joint Pain, Joint Tenderness Skin: Denies: Dryness, Jaundice Neurological: Denies: Numbness, Tingling, Focal weakness Psychiatric: Denies: Anxiety, Depression Hematologic/ Lymphatic: Denies: Easy Bruising, Easy Bleeding, Hx of blood clot Comment: A 10 point review of systems were negative except as mentioned in the history of present illness and the other review of systems. Patient Problems: Active and Suspected Problems (Last Reviewed 04/19/18 @ 15:10 by Mitchell Henderson MD) Acute blood loss anemia (Acute) - Physical Exam General: Alert, Cooperative, No apparent distress, - - Lying on her right side. Wound VAC in place. HEENT: Atraumatic, Normocephalic Neck: No Nodes, Thyroid Normal Size and Texture Lungs: Clear to auscultation, Normal air movement, No rhonchi, No wheeze Cardiovascular: Regular rate, Regular Rhythm, Normal S1, Normal S2 Abdomen: Bowel Sounds Present, Soft, Non Tender, Non-Distended, No Hepato- splenomegaly Extremities: No edema, No Calf Tenderness Psych/Mental Status: Normal Affect, Appropriate Vital Signs Temp Pulse Resp BP Pulse Ox 36.9 C 84 16 117/60 96 05/16/18 13:38 05/16/18 13:38 05/16/18 13:38 05/16/18 13:38 05/16/18 13:38 Oxygen Delivery Method Room Air Weight: 92 kg Body Mass Index (BMI) 34.8 Intake and Output for Last 24 Hours 05/14/18 05/15/18 05/16/18 23:59 23:59 23:59 Intake Total 600 / 600 1672 / 1672 2760 / 2760 Output Total 1475 / 1475 1500 / 1500 Balance 600 / 600 197 / 197 1260 / 1260 Microbiology Past 72 Hours 05/14/18 Unknown Gram Stain - Final Tissue - Sacral Wound Culture - Preliminary No growth-Final to follow Anaerobic Culture - Preliminary No growth in 48 hours. 05/14/18 Unknown Gram Stain - Final Bone - Other Wound Culture - Preliminary No growth-Final to follow Anaerobic Culture - Preliminary No growth in 48 hours. Laboratory Tests Past 24 Hrs 05/16/18 05/16/18 05/16/18 01:30 01:30 01:30 WBC 13.3 H RBC 2.82 L Hgb 5.8 L* Hct 19.9 L MCV 70.6 L MCH 20.6 L MCHC 29.1 L RDW 19.6 H RDW Differential 50.4 H Plt Count 316 MPV 8.4 Differential Comment SCANNED Diff Path Review May foll Sodium 143 Potassium 3.7 Chloride 111 H Carbon Dioxide 27.0 Anion Gap 5 BUN 24 H Creatinine 0.62 Estim Creat Clear Calc 47.79 Est GFR (MDRD) Af Amer 124 Est GFR (MDRD) Non-Af 102 BUN/Creatinine Ratio 38.8 H Glucose 104 Calcium 8.2 L Blood Type A POSITIVE Antibody Screen NEGATIVE Crossmatch See Detail 05/16/18 01:30 WBC RBC Hgb Hct MCV MCH MCHC RDW RDW Differential Plt Count MPV Differential Comment Diff Path Review Sodium Potassium Chloride Carbon Dioxide Anion Gap BUN Creatinine Estim Creat Clear Calc Est GFR (MDRD) Af Amer Est GFR (MDRD) Non-Af BUN/Creatinine Ratio Glucose Calcium Blood Type Antibody Screen Crossmatch See Detail Assessment/Plan All Active Problems (Last Reviewed 04/19/18 @ 15:10 by Mitchell Henderson MD) Acute blood loss anemia (Acute) Preop cardiovascular exam (Acute) Colovaginal fistula (Acute) Failure to thrive (Acute) Clostridium difficile colitis (Acute) Septic shock (Resolved) VITO (acute kidney injury) (Resolved) Encephalopathy (Resolved) Atrial fibrillation with RVR (Resolved) Clostridium difficile infection (Resolved) Rhabdomyolysis (Resolved) 1. Acute blood loss anemia * Amount of blood loss does not seem to match up with the recorded blood count drops. 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 * Patient denies any history of ulcerative colitis no Crohn's. * May be some component of anemia of chronic disease due to her stage IV ulcer * Given the blood the patient is received iron studies would be of low yield at this point time but patient may benefit from further iron studies at a later point to see if she will require iron supplementation. 2. Stage IV sacral ulcer * Management per primary service * Wound VAC in place * On Unasyn * Patient on oxycodone as well as hydromorphone IV. If patient is not requiring hydromorphone would recommend discontinuing it. 3. DVT prophylaxis with SCDs. Chemical prophylaxis contraindicated in light of the acute blood loss anemia. Thank you for the consult. The hospital service will continue to follow along during the course of patient's hospitalization. Code Visit Inpatient E&M: 58022 Init Hosp L2
[2018-05-16] MEDS: Pantoprazole Sodium 40 MG Tablet PO (17:06)
[2018-05-17 03:54] VITALS: BP 128/65; PULSE 78; RESP 16; TEMP 36.6; O2SAT 96
[2018-05-17] MEDS: Levothyroxine 25 MCG TABLET PO (05:55)
[2018-05-17 06:30] LABS: Hemoglobin 9.7 g/dl (12.0-15.0); Mean Corp Hgb Conc 31.3 g/gl (32-36); Mean Corpuscular Hgb 24.4 pg (27.0-32.0); Mean Corpuscular Volume 77.9 fL (81-99); Mean Platelet Vol. 9.2 fl (6.2-12.0); Platelet Count 299 K/mm3 (150-450); RBC Distribution Width CV 21.3 % (11.6-14.6); RBC Distribution Width SD 60.9 fl (35.1-43.9); Red Blood Count 3.98 M/mm3 (4.2-5.4); White Blood Count 12.5 K/mm3 (4.4-11.0)
[2018-05-17 06:32] LABS: Scan Indicated on CBC? Y/N YES- FLAGS NOTED
[2018-05-17 07:05] LABS: Differential Comment SCAN
--- NOTE | 2018-05-17 08:27 | NURSING ---
Pt prefers the VersaCare mattress rather than the Envision mattress. Ranjith-Silvestre called to clam picker the Envision mattress at this time. confirmation #[id number]. plan to change wound VAC dressing this am. possible discharge home today with home health.
[2018-05-17] MEDS: Iron Polysaccharide Complex 150 MG CAPSULE PO (08:46)
[2018-05-17] MEDS: Ascorbic Acid 500 MG Tablet PO (08:46)
[2018-05-17] MEDS: Acetaminophen 325 MG Tablet 650 MG PO (08:53)
[2018-05-17 10:09] VITALS: BP 147/66; PULSE 82; RESP 16; TEMP 36.8; O2SAT 92
[2018-05-17] MEDS: Omega-3 Acid Ethyl Esters 1 GM Capsule PO (10:13)
[2018-05-17] MEDS: Docusate Sodium 100 MG Capsule PO (10:13)
[2018-05-17] MEDS: Lactated Ringers 1,000 ML 100 ML IV (10:15)
[2018-05-17 10:22] LABS: Pathologist Review Reviewed
[2018-05-17 12:26] LABS: Hematocrit 31.5 % (37-47)
--- NOTE | 2018-05-17 12:26 | PCM.PN.HOSP ---
Patient Problems: Active and Suspected Problems (Last Reviewed 05/16/18 @ 14:58 by Raúl Villareal DO) Acute blood loss anemia (Acute) Subjective: pain with wound vac change. Vitals/I&O's: Vital Signs Temp Pulse Resp BP Pulse Ox 36.8 C 82 16 147/66 H 92 05/17/18 10:09 05/17/18 10:09 05/17/18 10:09 05/17/18 10:09 05/17/18 10:09 Oxygen Delivery Method Room Air Weight: 92 kg Body Mass Index (BMI) 34.8 Intake and Output for Last 24 Hours 05/15/18 05/16/18 05/17/18 23:59 23:59 23:59 Intake Total 1672 / 1672 3560 / 3560 2771 / 2771 Output Total 1475 / 1475 2550 / 2550 2875 / 2875 Balance 197 / 197 1010 / 1010 -104 / -104 General: Alert, - - uncomfortable. HEENT: Atraumatic, Normocephalic Oral: Moist Mucosa, No Gingival or Mucosal Lesions/ Ulcerations Neck: No Nodes, Thyroid Normal Size and Texture Lungs: Clear to auscultation, Normal air movement, No rhonchi, No wheeze Cardiovascular: Regular rate, Regular Rhythm, Normal S1, Normal S2, No murmurs Abdomen: Bowel Sounds Present, Soft, Non Tender, Non-Distended, No Hepato-splenomegaly Extremities: No edema, No Calf Tenderness Skin: No rashes, No breakdown Psych/Mental Status: Normal Affect, Appropriate Microbiology Past 72 Hours 05/14/18 Unknown Bone - Other Gram Stain - Final 05/14/18 Unknown Bone - Other Wound Culture - Preliminary Gram positive burke 05/14/18 Unknown Bone - Other Anaerobic Culture - Preliminary No growth in 48 hours. 05/14/18 Unknown Tissue - Sacral Gram Stain - Final 05/14/18 Unknown Tissue - Sacral Wound Culture - Preliminary Gram positive burke Coag Negative Staph 05/14/18 Unknown Tissue - Sacral Anaerobic Culture - Preliminary No growth in 48 hours. Laboratory Results 05/16/18 01:30: Crossmatch See Detail 05/16/18 01:30: Diff Path Review Reviewed 05/16/18 01:30: Crossmatch See Detail 05/17/18 05:25: WBC 12.5 H, RBC 3.98 L, Hgb 9.7 L, Hct 31.0 L, MCV 77.9 L, MCH 24.4 L, MCHC 31.3 L, RDW 21.3 H, RDW Differential 60.9 H, Plt Count 299, MPV 9.2, Differential Comment SCAN 05/17/18 12:10: Hgb Pending, Hct Pending Current Medications Acetaminophen (Tylenol) 650 mg PO Q6H PRN PRN PRN Reason: PAIN Last Admin: 05/17/18 08:53 Dose: 650 mg Ascorbic Acid (Vitamin C) 500 mg PO DAILY@0800 [facility] Last Admin: 05/17/18 08:46 Dose: 500 mg Diazepam (Valium) 5 mg PO 4X/DAY PRN PRN PRN Reason: SPASMS Docusate Sodium (Colace) 100 mg PO BID [facility] Last Admin: 05/17/18 10:13 Dose: 100 mg Ergocalciferol (Vitamin D) 50,000 unit PO QMONTH [facility] Hydromorphone HCl (Dilaudid Inj) 1 mg IV Q4H PRN PRN PRN Reason: SEVERE PAIN (6-10/10) Last Admin: 05/15/18 10:11 Dose: 1 mg Ampicillin Sodium/Sulbactam (Sodium 3 gm/ Sodium Chloride) 112 mls @ 150 mls/hr IV Q6 [facility] Last Admin: 05/17/18 12:04 Dose: 150 mls/hr Lactated Ringer's () 1,000 mls @ 100 mls/hr IV .Q10H [facility] Last Admin: 05/17/18 10:15 Dose: 100 mls/hr Levothyroxine Sodium (Synthroid) 25 mcg PO DAILY@0600 [facility] Last Admin: 05/17/18 05:55 Dose: 25 mcg Nutritional Formula (Teofilo - [place] Flavor) 1 packet PO BIDCM [facility] Last Admin: 05/17/18 08:46 Dose: 1 packet [id number] Ethyl Esters (Lovaza) 1 gm PO DAILY [facility] Last Admin: 05/17/18 10:13 Dose: 1 gm Ondansetron HCl (Zofran) 4 mg IV Q6H PRN PRN PRN Reason: NAUSEA Oxycodone HCl (Oxyir) 10 mg PO Q4H PRN PRN PRN Reason: SEVERE PAIN (6-10/10) Last Admin: 05/15/18 14:16 Dose: 10 mg Pantoprazole Sodium (Protonix) 40 mg PO DAILY@1800 [facility] Last Admin: 05/16/18 17:06 Dose: 40 mg Polysaccharide Iron Complex (Ferrex 150) 150 mg PO DAILYCM [facility] Last Admin: 05/17/18 08:46 Dose: 150 mg Potassium Chloride (K-Dur) 40 meq PO DAILY@0800 [facility] Last Admin: 05/17/18 08:46 Dose: 40 meq Promethazine HCl (Phenergan Tablet) 25 mg PO Q4H PRN PRN PRN Reason: NAUSEA/VOMITING Last Admin: 05/15/18 06:06 Dose: 25 mg Sodium Chloride () 5 - 15 ml IV UD PRN PRN Reason: SALINE FLUSH Last Admin: 05/15/18 10:12 Dose: 10 ml Medical Necessity - Tobacco Use Smoking Status: Former smoker Assessment/Plan All Active Problems (Last Reviewed 05/16/18 @ 14:58 by Raúl Villareal DO) Acute blood loss anemia (Acute) Preop cardiovascular exam (Acute) Colovaginal fistula (Acute) Failure to thrive (Acute) Clostridium difficile colitis (Acute) Septic shock (Resolved) VITO (acute kidney injury) (Resolved) Encephalopathy (Resolved) Atrial fibrillation with RVR (Resolved) Clostridium difficile infection (Resolved) Rhabdomyolysis (Resolved) 1. Acute blood loss anemia Amount of blood loss does not seem to match up with the recorded blood count drops. 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 Patient denies any history of ulcerative colitis no Crohn's. May be some component of anemia of chronic disease due to her stage IV ulcer Given the blood the patient is received iron studies would be of low yield at this point time but patient may benefit from further iron studies at a later point to see if she will require chronic iron supplementation. will start Ferrous sulfate 325 mg daily for 2 weeks. Patient made aware of risks of constipation. Repeat H/H ordered. If stable, or improved, patient can be discharged from a medical perspective. Patient to have outpt labs checked. 2. Stage IV sacral ulcer Management per primary service Wound VAC in place On Unasyn Patient on oxycodone as well as hydromorphone IV. If patient is not requiring hydromorphone would recommend discontinuing it. 3. DVT prophylaxis with SCDs. Chemical prophylaxis contraindicated in light of the acute blood loss anemia. Thank you for the consult. The hospital service will continue to follow along during the course of patient's hospitalization. Code Visit Inpatient E&M: 33067 Subs Hosp L2
--- NOTE | 2018-05-17 12:29 | PN_ITS ---
Patient Problems: Active and Suspected Problems (Last Reviewed 05/16/18 @ 14:58 by Raúl Villareal DO) Acute blood loss anemia (Acute) Subjective: pain with wound vac change. Vitals/I&O's: Vital Signs Temp Pulse Resp BP Pulse Ox 36.8 C 82 16 147/66 H 92 05/17/18 10:09 05/17/18 10:09 05/17/18 10:09 05/17/18 10:09 05/17/18 10:09 Oxygen Delivery Method Room Air Weight: 92 kg Body Mass Index (BMI) 34.8 Intake and Output for Last 24 Hours 05/15/18 05/16/18 05/17/18 23:59 23:59 23:59 Intake Total 1672 / 1672 3560 / 3560 2771 / 2771 Output Total 1475 / 1475 2550 / 2550 2875 / 2875 Balance 197 / 197 1010 / 1010 -104 / -104 General: Alert, - - uncomfortable. HEENT: Atraumatic, Normocephalic Oral: Moist Mucosa, No Gingival or Mucosal Lesions/ Ulcerations Neck: No Nodes, Thyroid Normal Size and Texture Lungs: Clear to auscultation, Normal air movement, No rhonchi, No wheeze Cardiovascular: Regular rate, Regular Rhythm, Normal S1, Normal S2, No murmurs Abdomen: Bowel Sounds Present, Soft, Non Tender, Non-Distended, No Hepato- splenomegaly Extremities: No edema, No Calf Tenderness Skin: No rashes, No breakdown Psych/Mental Status: Normal Affect, Appropriate Microbiology Past 72 Hours 05/14/18 Unknown Bone - Other Gram Stain - Final 05/14/18 Unknown Bone - Other Wound Culture - Preliminary Gram positive burke 05/14/18 Unknown Bone - Other Anaerobic Culture - Preliminary No growth in 48 hours. 05/14/18 Unknown Tissue - Sacral Gram Stain - Final 05/14/18 Unknown Tissue - Sacral Wound Culture - Preliminary Gram positive burke Coag Negative Staph 05/14/18 Unknown Tissue - Sacral Anaerobic Culture - Preliminary No growth in 48 hours. Laboratory Results 05/16/18 01:30: Crossmatch See Detail 05/16/18 01:30: Diff Path Review Reviewed 05/16/18 01:30: Crossmatch See Detail 05/17/18 05:25: WBC 12.5 H, RBC 3.98 L, Hgb 9.7 L, Hct 31.0 L, MCV 77.9 L, MCH 24.4 L, MCHC 31.3 L, RDW 21.3 H, RDW Differential 60.9 H, Plt Count 299, MPV 9.2, Differential Comment SCAN 05/17/18 12:10: Hgb Pending, Hct Pending Current Medications Acetaminophen (Tylenol) 650 mg PO Q6H PRN PRN PRN Reason: PAIN Last Admin: 05/17/18 08:53 Dose: 650 mg Ascorbic Acid (Vitamin C) 500 mg PO DAILY@0800 [facility] Last Admin: 05/17/18 08:46 Dose: 500 mg Diazepam (Valium) 5 mg PO 4X/DAY PRN PRN PRN Reason: SPASMS Docusate Sodium (Colace) 100 mg PO BID [facility] Last Admin: 05/17/18 10:13 Dose: 100 mg Ergocalciferol (Vitamin D) 50,000 unit PO QMONTH [facility] Hydromorphone HCl (Dilaudid Inj) 1 mg IV Q4H PRN PRN PRN Reason: SEVERE PAIN (6-10/10) Last Admin: 05/15/18 10:11 Dose: 1 mg Ampicillin Sodium/Sulbactam (Sodium 3 gm/ Sodium Chloride) 112 mls @ 150 mls/hr IV Q6 [facility] Last Admin: 05/17/18 12:04 Dose: 150 mls/hr Lactated Ringer's () 1,000 mls @ 100 mls/hr IV .Q10H [facility] Last Admin: 05/17/18 10:15 Dose: 100 mls/hr Levothyroxine Sodium (Synthroid) 25 mcg PO DAILY@0600 [facility] Last Admin: 05/17/18 05:55 Dose: 25 mcg Nutritional Formula (Teofilo - [place] Flavor) 1 packet PO BIDCM [facility] Last Admin: 05/17/18 08:46 Dose: 1 packet Fabzp-[id number] Ethyl Esters (Lovaza) 1 gm PO DAILY [facility] Last Admin: 05/17/18 10:13 Dose: 1 gm Ondansetron HCl (Zofran) 4 mg IV Q6H PRN PRN PRN Reason: NAUSEA Oxycodone HCl (Oxyir) 10 mg PO Q4H PRN PRN PRN Reason: SEVERE PAIN (6-10/10) Last Admin: 05/15/18 14:16 Dose: 10 mg Pantoprazole Sodium (Protonix) 40 mg PO DAILY@1800 [facility] Last Admin: 05/16/18 17:06 Dose: 40 mg Polysaccharide Iron Complex (Ferrex 150) 150 mg PO DAILYCM [facility] Last Admin: 05/17/18 08:46 Dose: 150 mg Potassium Chloride (K-Dur) 40 meq PO DAILY@0800 [facility] Last Admin: 05/17/18 08:46 Dose: 40 meq Promethazine HCl (Phenergan Tablet) 25 mg PO Q4H PRN PRN PRN Reason: NAUSEA/VOMITING Last Admin: 05/15/18 06:06 Dose: 25 mg Sodium Chloride () 5 - 15 ml IV UD PRN PRN Reason: SALINE FLUSH Last Admin: 05/15/18 10:12 Dose: 10 ml Medical Necessity - Tobacco Use Smoking Status: Former smoker Assessment/Plan All Active Problems (Last Reviewed 05/16/18 @ 14:58 by Raúl Villareal DO) Acute blood loss anemia (Acute) Preop cardiovascular exam (Acute) Colovaginal fistula (Acute) Failure to thrive (Acute) Clostridium difficile colitis (Acute) Septic shock (Resolved) VITO (acute kidney injury) (Resolved) Encephalopathy (Resolved) Atrial fibrillation with RVR (Resolved) Clostridium difficile infection (Resolved) Rhabdomyolysis (Resolved) 1. Acute blood loss anemia * Amount of blood loss does not seem to match up with the recorded blood count drops. 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 * Patient denies any history of ulcerative colitis no Crohn's. * May be some component of anemia of chronic disease due to her stage IV ulcer * Given the blood the patient is received iron studies would be of low yield at this point time but patient may benefit from further iron studies at a later point to see if she will require chronic iron supplementation. * will start Ferrous sulfate 325 mg daily for 2 weeks. Patient made aware of risks of constipation. * Repeat H/H ordered. If stable, or improved, patient can be discharged from a medical perspective. * Patient to have outpt labs checked. 2. Stage IV sacral ulcer * Management per primary service * Wound VAC in place * On Unasyn * Patient on oxycodone as well as hydromorphone IV. If patient is not requiring hydromorphone would recommend discontinuing it. 3. DVT prophylaxis with SCDs. Chemical prophylaxis contraindicated in light of the acute blood loss anemia. Thank you for the consult. The hospital service will continue to follow along during the course of patient's hospitalization. Code Visit Inpatient E&M: 47767 Subs Hosp L2
[2018-05-17 16:31] VITALS: BP 111/63; PULSE 73; RESP 16; TEMP 37; O2SAT 95
--- NOTE | 2018-05-17 16:45 | PCM.PN.SRG ---
Patient Problems: Active and Suspected Problems (Last Reviewed 05/16/18 @ 14:58 by Raúl Villareal DO) Acute blood loss anemia (Acute) Subjective: Postop #3 Patient is resting comfortably. - Physical Exam General: Alert, Oriented x3 HEENT: PERRLA, EOMI Oral: Moist Mucosa Neck: Supple Abdomen: Soft, Non Tender, Non-Distended Skin: Ulcer/ Wound - sacral wound is stable. No active bleeding noted. VAC changed today. Neurological: Cranial nerves II-XII grossly intact Psych/Mental Status: Normal Affect, Appropriate Vital Signs Temp Pulse Resp BP Pulse Ox 98.6 F 73 16 111/63 95 05/17/18 16:31 05/17/18 16:31 05/17/18 16:31 05/17/18 16:31 05/17/18 16:31 Oxygen Delivery Method Room Air Weight: 202 lb 13.204 oz Body Mass Index (BMI) 34.8 Intake and Output for Last 24 Hours 05/15/18 05/16/18 05/17/18 23:59 23:59 23:59 Intake Total 1672 / 1672 3560 / 3560 2771 / 2771 Output Total 1475 / 1475 2550 / 2550 2875 / 2875 Balance 197 / 197 1010 / 1010 -104 / -104 Microbiology Past 72 Hours 05/14/18 Unknown Gram Stain - Final Bone - Other Wound Culture - Preliminary Gram positive burke Anaerobic Culture - Preliminary No growth in 48 hours. 05/14/18 Unknown Gram Stain - Final Tissue - Sacral Wound Culture - Preliminary Gram positive burke Coag Negative Staph Anaerobic Culture - Preliminary No growth in 48 hours. Pathology - pending. Laboratory Tests Past 24 Hrs 05/16/18 05/16/18 05/17/18 01:30 01:30 05:25 WBC 12.5 H RBC 3.98 L Hgb 9.7 L Hct 31.0 L MCV 77.9 L MCH 24.4 L MCHC 31.3 L RDW 21.3 H RDW Differential 60.9 H Plt Count 299 MPV 9.2 Differential Comment SCAN Diff Path Review Reviewed Crossmatch See Detail 05/17/18 12:10 WBC RBC Hgb 10.0 L Hct 31.5 L MCV MCH MCHC RDW RDW Differential Plt Count MPV Differential Comment Diff Path Review Crossmatch Diagnostic Data Abdomen/Pelvis CT 05/16/18 10:30 IMPRESSION: Since prior study, the skin soft tissue defect overlying the distal portion of the sacrum as progressed. The defect abuts the sacral bone although there is no evidence of bony destruction at this time. The remainder the examination is unchanged. Electronically Signed: Fidel Rojas MD at 12:47 EST Tel [phone], Service support , Medical Necessity - Tobacco Use Smoking Status: Former smoker Assessment/Plan All Active Problems (Last Reviewed 05/16/18 @ 14:58 by Raúl Villareal DO) Acute blood loss anemia (Acute) Preop cardiovascular exam (Acute) Colovaginal fistula (Acute) Failure to thrive (Acute) Clostridium difficile colitis (Acute) Septic shock (Resolved) VITO (acute kidney injury) (Resolved) Encephalopathy (Resolved) Atrial fibrillation with RVR (Resolved) Clostridium difficile infection (Resolved) Rhabdomyolysis (Resolved) 1. Sacral pressure sore, Stage IV. 2. s/p repair colovaginal fistula. 3. s/p excision sacral pressure sore, Stage IV, with partial ostectomy for osteomyelitis. 4. Anemia of chronic disease, acute on chronic. VAC changed today. No active bleeding seen. Hgb has improved to 10 after the PRBC. Hospitalist input appreciated. CT showed no fluid collection or bleeding. Continue Unasyn antibiotics. Operative cultures show Coag negative Staph and Gram positive burke. Will send home on Augmentin. Pathology is pending. Prealbumin was 19.3. Encourage nutritional supplementation with protein to help the healing process. Patient would like the maier catheter removed before discharge. Wrote script for Augmentin for 14 days (28 tabs). Wrote script for Percocet for pain (30 tabs) and for Valium for spasm (30 tabs). Followup at Wound Center on Sunday05/22/[address] Santiago. Followup with me at the Wound Center in 3 weeks.
--- NOTE | 2018-05-17 17:09 | DCINST_ITS ---
- Discharge Diagnoses Current Active Problems: Current Active and Chronic Problems (Last Reviewed 05/16/18 @ 14:58 by Raúl Villareal DO) Acute blood loss anemia (Acute) You will use the following diet at home:: No restrictions, Other - encourage nutritional supplementation with protein to help the healing process. Discharge Activity: May Shower - oon the days the vac is changed. May resume sexual activity in: 10-14 days Weight Bearing Status: Weight bearing as tolerated Call your doctor if your incision/area has: Continuous Slow Oozing, Sudden Increased Bleeding, Increased Pain/ Swelling, Increased Redness, Foul Smelling Discharge, Swelling at the incision site Call your doctor if you observe: Fever of 101 or Higher, Coldness, Increased Pain, Shortness of breath, Chest pain, Calf discomfort, Uncontrolled pain Suture Line Care: - - vac changes three times per week at 150 mmHg continuous suction. Change Dressing in (Days):: 2 - vac changes 3 times per week. Cleanse incision/area with: Soap & Water - may cleanse the sacral wound with soap and water on the days the vac is changed. Allergies/Adverse Reactions: Allergies bee venom protein (honey bee) Allergy (Verified 04/19/18 13:56) Angioedema metaxalone [From Skelaxin] Allergy (Verified 04/19/18 13:56) Swelling Medications to take at Discharge Levothyroxine [Synthroid] 25 mcg PO DAILY 03/02/17 cholecalciferol (vitamin D3) 50,000 unit capsule 50,000 unit PO QMONTH 08/02/17 Ascorbic Acid 500 mg PO DAILY 08/21/17 Potassium Chloride [K-Dur] 40 meq PO DAILY 12/26/17 Aspirin E.C. [Ecotrin] 81 mg PO DAILY 04/11/18 Omeprazole 40 mg PO 1800 04/11/18 green tea leaf extract capsule 1 cap PO DAILY cap 04/19/18 omega-3 fatty acids 1,000 mg capsule 1,000 mg PO DAILY 04/19/18 Acetaminophen [Tylenol Tablet] 650 mg PO Q6H PRN PRN tablet 05/17/18 Amox/Clavulanate Tablet [Augmentin Tablet] 875 mg PO BID #28 tab 05/17/18 Diazepam [Valium] 4 mg PO TID PRN PRN #30 tab 05/17/18 Docusate Sodium [Colace] 100 mg PO BID capsule 05/17/18 Ferrous Sulfate 325 mg PO DAILY@0800 #14 tablet 05/17/18 Iron Polysaccharide Complex [Ferrex 150] 150 mg PO DAILYCM #30 cap 05/17/18 Oxycodone HCl/Acetaminophen [Percocet 5/325] 1 tab PO 4X/DAY PRN PRN 7 Days #30 tab 05/17/18 proMETHazine tablet [Phenergan tablet] 25 mg PO Q4H PRN PRN tablet 05/17/18 The following prescriptions were given: Diazepam [Valium] 4 mg PO TID PRN PRN #30 tab PRN Reason: Spasms Ferrous Sulfate 325 mg PO DAILY@0800 #14 tablet Iron Polysaccharide Complex [Ferrex 150] 150 mg PO DAILYCM #30 cap Oxycodone HCl/Acetaminophen [Percocet 5/325] 1 tab PO 4X/DAY PRN PRN 7 Days #30 tab PRN Reason: Pain Amox/Clavulanate Tablet [Augmentin Tablet] 875 mg PO BID #28 tab Orders to be completed after discharge: CBC-Complete Blood Cnt No Diff Time Frame: 1 Week, Location: Laboratory Primary Care Physician: Chema Sanchez Chi, MD [Primary Care Provider] - Test Results: Test results from this visit will be discussed in further detail at your follow- up appointment, if applicable. Please Follow Up With: Regino Hansen MD When: 3 weeks at wound center. call [phone] for appt. Please Follow Up With: Brant Santiago MD When: sunday05/22/18 at wound center. Proposed Discharge Date: 05/17/18
--- NOTE | 2018-05-17 17:09 | PCM.DC.SUM ---
Discharge Date and Diagnosis Date of Admission: 05/14/18 Date of Discharge: 05/17/18 - Primary Discharge Diagnosis Sacral pressure sore, Stage IV. Acute blood loss anemia. - Secondary Discharge Diagnosis Secondary pulmonary arterial hypertension Non-rheumatic tricuspid valve insufficiency Essential (primary) hypertension Morbid obesity with BMI of 40.0-44.9, adult GERD (gastroesophageal reflux disease) Depression Hypothyroidism Neuropathy Hospital Course and Treatment Imaging Results: Diagnostic Data Abdomen/Pelvis CT 05/16/18 10:30 IMPRESSION: Since prior study, the skin soft tissue defect overlying the distal portion of the sacrum as progressed. The defect abuts the sacral bone although there is no evidence of bony destruction at this time. The remainder the examination is unchanged. Electronically Signed: Fidel Rojas MD at 12:47 EST Tel [phone], Service support , Consultations 05/15/18 06:44 Consult: Onc/Wound/automotive title clerk Routine Comment: Reason for Consult:: Sacral Excision Hospitalist Group - Dr. Villareal. Operations: - - 05/14/18 - Excision sacral pressure sore, Stage IV, with partial ostectomy for osteomyelitis. Procedures: Blood transfusion, Wound vac placement Summary of Care Provided: 67 year old woman presents for further evaluation of her sacral pressure sore. I initially saw her in August. A CT was done which showed no evidence of osteomyelitis, but did show evidence of a colovaginal fistula. The fistula was surgically repaired in December at [facility]. She had a sacral wound culture done on 01/02/18 and it showed Staphylococcus aureus. She was treated with antibiotics. She was recently discharged from a correction. I was asked to evaluate her sacral pressure sore for surgical options for treatment. On 05/14/18, the patient was taken to the OR and underwent excision sacral pressure sore, Stage IV, with partial ostectomy for osteomyelitis. She tolerated the procedure well. Later in the evening, the patient got out of bed and went to the bathroom and developed some oozing in the wound. I came in to evaluate. The dressing was changed. A small amount of clot was removed, about 50 ml. Silver nitrate was used for chemical cauterization. The next day the VAC was applied. The Hgb the next day was 7.2. PRBC was given. Repeat Hgb was 5.8. No obvious source of bleeding identified. The wound was stable with the VAC. A CT Abdomen and Pelvis was done to look for a source of the bleeding. The scan was unremarkable. A Hospitalist consult was obtained to assist with medical management. The patient's VS were stable and it was felt that it could have been lab error. She had endoscopy in the last year without evidence of bleeding. Repeat Hgb after PRBC was 10. Also Iron supplementation was started. On the third postop day, the wound was stable as the VAC was changed. She was discharged home in satisfactory condition. Operative culture showed Coag negative Staph and Gram positive burke. Pathology is pending. She was discharged home on Augmentin. Wrote scripts for Percocet for pain (30 tabs) and for Valium for spasm (30 tabs). Wrote scripts for Augmentin for 14 days and for Iron supplements (30 tabs) and 3 refills. She will followup with her PCP for further evaluation of her anemia of chronic disease. Followup at Wound Center on Sunday05/22/[address] Santiago. She will see me at the Wound Center in 3 weeks. When the Pathology is available, if positive for osteomyelitis, the patient will need a PICC line placed and IV antibiotics started. - Physical Exam General: Alert, Oriented x3 HEENT: PERRLA, EOMI Oral: Moist Mucosa Neck: Supple Abdomen: Soft, Non Tender, Non-Distended Skin: Ulcer/ Wound - sacral wound is stable. No active bleeding noted. VAC changed the day of discharge. Neurological: Cranial nerves II-XII grossly intact Psych/Mental Status: Normal Affect, Appropriate Vital Signs Temp Pulse Resp BP Pulse Ox 98.6 F 73 16 111/63 95 05/17/18 16:31 05/17/18 16:31 05/17/18 16:31 05/17/18 16:31 05/17/18 16:31 Oxygen Delivery Method Room Air Weight: 202 lb 13.204 oz Body Mass Index (BMI) 34.8 Intake and Output for Last 24 Hours 05/15/18 05/16/18 05/17/18 23:59 23:59 23:59 Intake Total 1672 / 1672 3560 / 3560 2771 / 2771 Output Total 1475 / 1475 2550 / 2550 2875 / 2875 Balance 197 / 197 1010 / 1010 -104 / -104 Microbiology Past 72 Hours 05/14/18 Unknown Gram Stain - Final Bone - Other Wound Culture - Preliminary Gram positive burke Anaerobic Culture - Preliminary No growth in 48 hours. 05/14/18 Unknown Gram Stain - Final Tissue - Sacral Wound Culture - Preliminary Gram positive burke Coag Negative Staph Anaerobic Culture - Preliminary No growth in 48 hours. Pathology - pending. Laboratory Tests Past 24 Hrs 05/16/18 05/16/18 05/17/18 01:30 01:30 05:25 WBC 12.5 H RBC 3.98 L Hgb 9.7 L Hct 31.0 L MCV 77.9 L MCH 24.4 L MCHC 31.3 L RDW 21.3 H RDW Differential 60.9 H Plt Count 299 MPV 9.2 Differential Comment SCAN Diff Path Review Reviewed Crossmatch See Detail 05/17/18 12:10 WBC RBC Hgb 10.0 L Hct 31.5 L MCV MCH MCHC RDW RDW Differential Plt Count MPV Differential Comment Diff Path Review Crossmatch Discharge Diet: No Restrictions, - - encourage nutritional supplementation with protein to help the healing process. Discharge Activity: May Shower - oon the days the vac is changed. May resume sexual activity in: 10-14 days Weight Bearing Status: Weight bearing as tolerated Call your doctor if your incision/area has: Continuous Slow Oozing, Sudden Increased Bleeding, Increased Pain/ Swelling, Increased Redness, Foul Smelling Discharge, Swelling at the incision site Call your doctor if you observe: Fever of 101 or Higher, Coldness, Increased Pain, Shortness of breath, Chest pain, Calf discomfort, Uncontrolled pain Suture Line Care: - - vac changes three times per week at 150 mmHg continuous suction. Change Dressing in (Days):: 2 - vac changes 3 times per week. Cleanse incision/area with: Soap & Water - may cleanse the sacral wound with soap and water on the days the vac is changed. Home Medications: Medications to take at Discharge Levothyroxine [Synthroid] 25 mcg PO DAILY 03/02/17 cholecalciferol (vitamin D3) 50,000 unit capsule 50,000 unit PO QMONTH 08/02/17 Ascorbic Acid 500 mg PO DAILY 08/21/17 Potassium Chloride [K-Dur] 40 meq PO DAILY 12/26/17 Aspirin E.C. [Ecotrin] 81 mg PO DAILY 04/11/18 Omeprazole 40 mg PO 1800 04/11/18 green tea leaf extract capsule 1 cap PO DAILY cap 04/19/18 omega-3 fatty acids 1,000 mg capsule 1,000 mg PO DAILY 04/19/18 Acetaminophen [Tylenol Tablet] 650 mg PO Q6H PRN PRN tablet 05/17/18 Amox/Clavulanate Tablet [Augmentin Tablet] 875 mg PO BID #28 tab 05/17/18 Diazepam [Valium] 4 mg PO TID PRN PRN #30 tab 05/17/18 Docusate Sodium [Colace] 100 mg PO BID capsule 05/17/18 Ferrous Sulfate 325 mg PO DAILY@0800 #14 tablet 05/17/18 Iron Polysaccharide Complex [Ferrex 150] 150 mg PO DAILYCM #30 cap 05/17/18 Oxycodone HCl/Acetaminophen [Percocet 5/325] 1 tab PO 4X/DAY PRN PRN 7 Days #30 tab 05/17/18 proMETHazine tablet [Phenergan tablet] 25 mg PO Q4H PRN PRN tablet 05/17/18 Following Prescrptions Were Given to Patient: Diazepam [Valium] 4 mg PO TID PRN PRN #30 tab PRN Reason: Spasms Ferrous Sulfate 325 mg PO DAILY@0800 #14 tablet Iron Polysaccharide Complex [Ferrex 150] 150 mg PO DAILYCM #30 cap Oxycodone HCl/Acetaminophen [Percocet 5/325] 1 tab PO 4X/DAY PRN PRN 7 Days #30 tab PRN Reason: Pain Amox/Clavulanate Tablet [Augmentin Tablet] 875 mg PO BID #28 tab Other Amb Orders: CBC-Complete Blood Cnt No Diff Time Frame: 1 Week, Location: Laboratory Primary Care Physician: Chema Sanchez Chi, MD [Primary Care Provider] - Please Follow Up With: Regino Hansen MD When: 3 weeks at wound center. call [phone] for appt. Please Follow Up With: Brant Santiago MD When: sunday05/22/18 at wound center. Please Follow Up With: Chema Sanchez Chi, MD When: one month to further evaluate chronic anemia. Disposition: Home with Home Health Minutes spent on discharge:: 35 Patient Condition:: Stable Medical Necessity - Tobacco Use Smoking Status: Former smoker Meaningful Use Info Meaningful Use Diagnoses (Choose all that apply): None applicable
--- OUTSIDE RECORDS SUMMARY | 2018-06-30 13:15 | XMS RPT_ITS ---
[...] Unavailable GRISSINGER, JASPAL Unavailable Unavailable + FOUNTAIN, ALXE Unavailable Unavailable + R Unavailable Unavailable Unavailable [...] GRISSINGER, Jaspal Unavailable . + [place] [address] FOUNTAIN, REMY Unavailable . + [place] [address] R Unavailable Unavailable Unavailable GRISSINGER, JASPAL Unavailable Unavailable + [place], ALEX Unavailable Unavailable + R Unavailable Unavailable Unavailable GRISSINGER, Jaspal Unavailable Unavailable + [place] [address] FOUNTAIN, REMY Unavailable Unavailable + [place] [address] R Unavailable Unavailable Unavailable GRISSINGER, Jaspal Unavailable Unavailable + [place] [address] FOUNTAIN, REMY Unavailable Unavailable + [place] [address] R Unavailable Unavailable Unavailable GRISSINGER, Jaspal Unavailable Unavailable + [place] [address] FOUNTAIN, REMY Unavailable Unavailable + [place] [address] R Unavailable Unavailable Unavailable GRISSINGER, Jaspal Unavailable Unavailable + [place] [address] FOUNTAIN, REMY Unavailable Unavailable + [place] [address] R Unavailable Unavailable Unavailable GRISSINGER, Jaspal Unavailable Unavailable + [place] [address] FOUNTAIN, REMY Unavailable Unavailable + [place] [address] R Unavailable Unavailable Unavailable GRISSINGER, Jaspal Unavailable Unavailable + [place] [address] FOUNTAIN, REMY Unavailable Unavailable + [place] [address] R Unavailable Unavailable Unavailable GRISSINGER, Jaspal Unavailable Unavailable + [place] [address] FOUNTAIN, REMY Unavailable Unavailable + [place] [address] R Unavailable Unavailable Unavailable GRISSINGER, Jaspal Unavailable Unavailable + [place] [address] FOUNTAIN, REMY Unavailable Unavailable + [place] [address] R Unavailable Unavailable Unavailable GRISSINGER, JASPAL Unavailable Unavailable Unavailable GUNTER, CHARISSA Unavailable Unavailable Unavailable GRISSINGER, Jaspal Unavailable Unavailable + [place] [address] FOUNTAIN, REMY Unavailable Unavailable + [place] [address] R Unavailable Unavailable Unavailable GRISSINGER, Jaspal Unavailable Unavailable + [place] [address] FOUNTIAN, REMY Unavailable Unavailable + [place] [address] R Unavailable Unavailable Unavailable GRISSINGER, Jaspal Unavailable Unavailable + [place] [address] FOUNTAIN, REMY Unavailable Unavailable + [place] [address] R Unavailable Unavailable Unavailable GRISSINGER, Jaspal Unavailable Unavailable + [place] [address] FOUNTAIN, REMY Unavailable Unavailable + [place] [address] R Unavailable Unavailable Unavailable GRISSINGER, Jaspal Unavailable Unavailable + [place] [address] FOUNTAIN, REMY Unavailable Unavailable + [place] [address] R Unavailable Unavailable Unavailable GRISSINGER, Jaspal Unavailable Unavailable + [place] [address] FOUNTAIN, REMY Unavailable Unavailable + [place] [address] R Unavailable Unavailable Unavailable GRISSINGER, Jaspal Unavailable Unavailable + [place] [address] FOUNTAIN, REMY Unavailable Unavailable + [place] [address] R Unavailable Unavailable Unavailable GRISSINGER, JASPAL Unavailable Unavailable Unavailable GUNTER, CHARISSA Unavailable Unavailable Unavailable GRISSINGER, Jaspal Unavailable Unavailable + [place] [address] FOUNTAIN, REMY Unavailable Unavailable + [place] [address] R Unavailable Unavailable Unavailable GRISSINGER, Jaspal Unavailable Unavailable + [place] [address] F[place], REMY Unavailable Unavailable + [place] [address] R Unavailable Unavailable Unavailable GRISSINGER, Jaspal Unavailable Unavailable + [place] [address] FOUNT[place], REMY Unavailable Unavailable + [place] [address] R Unavailable Unavailable Unavailable GRISSINGER, Jaspal Unavailable Unavailable + [place] [address] FOUNTAIN, REMY Unavailable Unavailable + [place] [address] R Unavailable Unavailable Unavailable GRISSINGER, JASPAL Unavailable Unavailable Unavailable GUNTER, CHARISSA Unavailable Unavailable Unavailable GRISSINGER, JASPAL Unavailable Unavailable Unavailable GUNTER, CHARISSA Unavailable Unavailable Unavailable GRISSINGER, JASPAL Unavailable Unavailable Unavailable GUNTER, CHARISSA Unavailable Unavailable Unavailable GRISSINGER, Jaspal Unavailable Unavailable + [place] [address] FOUNTAIN, REMY Unavailable Unavailable + [place] [address] R Unavailable Unavailable Unavailable GRISSINGER, Jaspal Unavailable Unavailable + [place] [address] FOUNTAIN, REMY Unavailable Unavailable + [place] [address] R Unavailable Unavailable Unavailable GRISSINGER, Jaspal Unavailable Unavailable + [place] [address] FOUNTAIN, REMY Unavailable Unavailable + [place] [address] R Unavailable Unavailable Unavailable GRISSINGER, Jaspal Unavailable Unavailable + [place] [address] FOUNTAIN, REMY Unavailable Unavailable + [place] [address] R Unavailable Unavailable Unavailable GRISSINGER, Jaspal Unavailable Unavailable + [place] [address] FOUNTAIN, REMY Unavailable Unavailable + [place] [address] R Unavailable Unavailable Unavailable GRISSINGER, Jaspal Unavailable Unavailable + [place] [address] FOUNTAIN, REMY Unavailable Unavailable + [place] [address] R Unavailable Unavailable Unavailable GRISSINGER, Jaspal Unavailable Unavailable + [place] [address] FOUNTAIN, REMY Unavailable Unavailable + [place] [address] R Unavailable Unavailable Unavailable GRISSINGER, JASPAL Unavailable Unavailable Unavailable GUNTER, CHARISSA Unavailable Unavailable Unavailable GRISSINGER, Jaspal Unavailable Unavailable + [place] [address] FOUNTAIN, REMY Unavailable Unavailable + [place] [address] R Unavailable Unavailable Unavailable GRISSINGER, Jaspal Unavailable Unavailable + [place] [address] FOUNTAIN, REMY Unavailable Unavailable + [place] [address] R Unavailable Unavailable Unavailable GRISSINGER, Jaspal Unavailable Unavailable + [place] [address] FOUNTAIN, REMY Unavailable Unavailable + [place] [address] R Unavailable Unavailable Unavailable GRISSINGER, Jaspal Unavailable Unavailable + [place] [address] FOUNTAIN, REMY Unavailable Unavailable + [place] [address] R Unavailable Unavailable Unavailable GRISSINGER, Jaspal Unavailable Unavailable + [place] [address] FOUNTAIN, REMY Unavailable Unavailable + [place] [address] R Unavailable Unavailable Unavailable GRISSINGER, Jaspal Unavailable Unavailable + [place] [address] FOUNTAIN, REMY Unavailable Unavailable + [place] [address] R Unavailable Unavailable Unavailable GRISSINGER, Jaspal Unavailable Unavailable + [place] [address] FOUNTAIN, REMY Unavailable Unavailable + [place] [address] R Unavailable Unavailable Unavailable GRISSINGER, Jaspal Unavailable Unavailable + [place] [address] FOUNTAIN, REMY Unavailable Unavailable + [place] [address] R Unavailable Unavailable Unavailable GRISSINGER, Jaspal Unavailable Unavailable + [place] [address] FOUNTAIN, REMY Unavailable Unavailable + [place] [address] R Unavailable Unavailable Unavailable GRISSINGER, Jaspal Unavailable Unavailable + [place] [address] FOUNTAIN, REMY Unavailable Unavailable + [place] [address] R Unavailable Unavailable Unavailable GRISSINGER, Jaspal Unavailable Unavailable + [place] [address] FOUNTAIN, REMY Unavailable Unavailable + [place] [address] R Unavailable Unavailable Unavailable GRISSINGER, Jaspal Unavailable Unavailable + [place] [address] FOUNTAIN, REMY Unavailable Unavailable + [place] [address] R Unavailable Unavailable Unavailable GRISSINGER, Jaspal Unavailable Unavailable + [place] [address] FOUNTAIN, REMY Unavailable Unavailable + [place] [address] R Unavailable Unavailable Unavailable FOUNTAIN, REMY Unavailable . + [place] [address] R Unavailable Unavailable Unavailable FOUNTAIN, REMY Unavailable . + [place] [address] R Unavailable Unavailable Unavailable Lashell Chavez Unavailable Unavailable + GRISSINGER, Jaspal Unavailable Unavailable + [place] [address] FOUNTAIN, REMY Unavailable Unavailable + [place] [address] R Unavailable Unavailable Unavailable FOUNTAIN, REMY Unavailable . + [place] [address] R Unavailable Unavailable Unavailable R Unavailable Unavailable Unavailable GRISSINGER, JASPAL Unavailable Unavailable Unavailable LYRIC CHARISSA Unavailable Unavailable Unavailable FOUNTAIN, REMY Unavailable . + [place] [address] R Unavailable Unavailable Unavailable FOUNTAIN, REMY Unavailable . + [place] [address] R Unavailable Unavailable Unavailable R Unavailable Unavailable Unavailable GRISSINGER, Jaspal Unavailable Unavailable + [place] [address] FOUNTAIN, REMY Unavailable Unavailable + [place] [address] R Unavailable Unavailable Unavailable GRISSINGER, JASPAL/JAMES Unavailable [address] + [place] [address] FOUNTAIN, REMY Unavailable Unavailable + [place], [place] R Unavailable Unavailable Unavailable GRISSINGER, JASPAL/JAMES Unavailable [address] + [place] [address] FOUNTAIN, REMY Unavailable / + [place], [place] / R Unavailable Unavailable Unavailable FOUNTAIN, REMY Unavailable . + [place] [address] R Unavailable Unavailable Unavailable GRISSINGER, Jaspal Unavailable Unavailable + [place] [address] ISIDRO FOUNTAINI Unavailable Unavailable + [place] [address] R Unavailable Unavailable Unavailable GRISSINGER, JASPAL/JAMES Unavailable [address] + [place] [address] [place] REMY Unavailable Unavailable + [place], [place] R Unavailable Unavailable Unavailable GRISSINGER, JASPAL/JAMES Unavailable [address] + [place] [address] F[place] REMY Unavailable / + [place], [place] / R Unavailable Unavailable Unavailable GRISSINGER, JASPAL/JAMES Unavailable [address] + [place] [address] F[place] REMY Unavailable Unavailable + [place], [place] R Unavailable Unavailable Unavailable GRISSINGER, JASPAL/JAMES Unavailable [address] + [place] [address] ESSIE REMY Unavailable Unavailable + [place], [place] R Unavailable Unavailable Unavailable GRISSINGER, JASPAL/JAMES Unavailable [address] + [place] [address] ESSIE REMY Unavailable Unavailable + [place], [place] R Unavailable Unavailable Unavailable Care Team Providers Name Role Phone Andrea Jacqueline Attending Unavailable PROVIDER, UNKNOWN Referring Unavailable DANIEL, [facility] Primary Care Unavailable TRAUGOTT, THO L Attending Unavailable JESSICA TERRAZAS Referring Unavailable DANIEL, [facility]MA-[facility] Primary Care Unavailable TRAUGOTT, THO L Attending Unavailable TRAUGOTT, THO L Referring Unavailable TRAUGOTT, THO L Admitting Unavailable TRAUGOTT, THO L Attending Unavailable DANIEL, [facility] Primary Care Unavailable NATHAN WEINER R Attending Unavailable TRAUGOTT, THO L Referring Unavailable DANIEL, [facility] Primary Care Unavailable REGINE NATHAN R Attending Unavailable TRAUGOTT, THO L Referring Unavailable DANIEL, [facility] Primary Care Unavailable TRAUGOTT, THO L Attending Unavailable DANIEL, [facility] Referring Unavailable DANIEL, [facility] Primary Care Unavailable TRAUGOTT, THO L Attending Unavailable DANIEL, [facility]MA-CHI Referring Unavailable DANIEL, [facility] Primary Care Unavailable Oleghe, Efewongbe Attending Unavailable Oleghe, Efewongbe Referring Unavailable Slaby, Regino Admitting Unavailable Slaby, Regino Attending Unavailable Slaby, Regino Referring Unavailable Daniel, Chema Chi Primary Care Unavailable Slaby, Regino Consulting Unavailable Slaby, Regino Admitting Unavailable Slaby, Regino Attending Unavailable Slaby, Regino Referring Unavailable Daniel, Chema Chi Primary Care Unavailable Slaby, Regino Consulting Unavailable Slaby, Regino Admitting Unavailable Jopperi, Raúl Attending Unavailable Slaby, Regino Referring Unavailable Daniel, Chema Chi Primary Care Unavailable Jopperi, Raúl Consulting Unavailable Slaby, Regino Admitting Unavailable Jopperi, Raúl Attending Unavailable Slaby, Regino Referring Unavailable Daniel, Chema Chi Primary Care Unavailable Jopperi, Raúl Consulting Unavailable Slaby, Regino Admitting Unavailable Slaby, Regino Attending Unavailable Slaby, Regino Referring Unavailable Daniel, Chema Chi Primary Care Unavailable Jopperi, Raúl Consulting Unavailable Slaby, Regino Admitting Unavailable Slaby, Regino Attending Unavailable Slaby, Regino Referring Unavailable Daniel, Chema Chi Primary Care Unavailable Joedouarderi, Raúl Consulting Unavailable Slaby, Regino Attending Unavailable Oleghe, Efewongbe Referring Unavailable Slaby, Regino Admitting Unavailable Slaby, Regino Attending Unavailable Slaby, Regino Referring Unavailable Daniel, Chema Chi Primary Care Unavailable Mohan, Jessica Consulting Unavailable Slaby, Regino Admitting Unavailable Slaby, Regino Attending Unavailable Slaby, Regino Referring Unavailable Daniel, Chema Chi Primary Care Unavailable Mohan, Jessica Consulting Unavailable Slaby, Regino Consulting Unavailable Slaby, Regino Admitting Unavailable Slaby, Regino Attending Unavailable Slaby, Regino Referring Unavailable Daniel, Chema Chi Primary Care Unavailable Mohan, Jessica Consulting Unavailable Slaby, Regino Consulting Unavailable Slaby, Regino Admitting Unavailable Slaby, Regino Attending Unavailable Slaby, Regino Referring Unavailable Daniel, Chema Chi Primary Care Unavailable Mohan, Jessica Consulting Unavailable Slaby, Regino Consulting Unavailable Slaby, Regino Admitting Unavailable Slaby, Regino Attending Unavailable Slaby, Regino Referring Unavailable Daniel, Chema Chi Primary Care Unavailable Mohan, Jessica Consulting Unavailable Slaby, Regino Consulting Unavailable Daniel, Chema Chi Admitting Unavailable Daniel, Chema Chi Attending Unavailable Daniel, Chema Chi Primary Care Unavailable Slaby, Regino Consulting Unavailable Mohan, Jessica Consulting Unavailable Oleghe, Efewongbe Attending Unavailable Daniel, [...] Unavailable Daniel, Chema Chi Primary Care Unavailable Nova Baez Attending Unavailable Daniel, Chema Chi Primary Care Unavailable [place] Referring Unavailable Oleghe, Efewongbe Attending Unavailable Oleghe, Efewongbe Referring Unavailable Daniel, Chema Chi Primary Care Unavailable Jessica Terrazas Attending Unavailable Daniel, Chema Chi Referring Unavailable Daniel, Chema Chi Primary Care Unavailable Maricel Miller PA-C Attending Unavailable Maricel Miller PA-C Referring Unavailable Jessica Terrazas Consulting Unavailable Oleghe, Efewongbe Attending Unavailable Oleghe, Efewongbe Referring Unavailable Oleghe, Efewongbe Attending Unavailable Daniel, Chema Chi Primary Care Unavailable Oleghe, Efewongbe Attending Unavailable Oleghe, Efewongbe Referring Unavailable Daniel, Chema Chi Admitting Unavailable Regino Hansen Attending Unavailable Daniel, Chema Chi Primary Care Unavailable Regino Hansen Consulting Unavailable Jessica Preston Consulting Unavailable Daniel, Chema Chi Consulting Unavailable Jessica Terrazas Attending Unavailable Jessica Terrazas Referring Unavailable Daniel, Chema Chi Primary Care Unavailable Jessica Terrazas Attending Unavailable Mk Jessica Referring Unavailable Daniel, Chema Chi Primary Care Unavailable Jessica Terrazas Consulting Unavailable Jessica Terrazas Attending Unavailable Mk Jessica Referring Unavailable Daniel, Chema Chi Primary Care Unavailable Oleghe, Efewongbe Attending Unavailable Oleghe, Efewongbe Referring Unavailable Oleghe, Efewongbe Attending Unavailable Oleghe, Efewongbe Referring Unavailable Oleghe, Efewongbe Attending Unavailable Daniel, Chema Chi Primary Care Unavailable Oleghe, Efewongbe Attending Unavailable Oleghe, Efewongbe Referring Unavailable Oleghe, Efewongbe Attending Unavailable Oleghe, Efewongbe Referring Unavailable Jessica Terrazas Attending Unavailable Oleghe, Efewongbe Attending Unavailable Daniel, [...] Efewongbe Referring Unavailable Oleghe, Efewongbe Attending Unavailable Daniel, Chema Chi Primary Care Unavailable Oleghe, Efewongbe Attending Unavailable Daniel, [facility] Primary Care Unavailable Oleghe, Efewongbe Attending Unavailable Oleghe, Efewongbe Referring Unavailable Oleghe, Efewongbe Attending Unavailable Oleghe, Efewongbe Referring Unavailable Oleghe, Efewongbe Attending Unavailable Oleghe, Efewongbe Referring Unavailable Oleghe, Efewongbe Attending Unavailable Oleghe, Efewongbe Referring Unavailable Regino Hansen Attending Unavailable Daniel, Chema Chi Primary Care Unavailable Oleghe, Efewongbe Consulting Unavailable Oleghe, Efewongbe Attending Unavailable Daniel, [...] Unavailable Daniel, Chema Chi Primary Care Unavailable SlabyRegino Attending Unavailable Slaby Regino Referring Unavailable Daniel, Chema Chi Primary Care Unavailable DeHorta, Raúl Consulting Unavailable Beatriz, [place] Attending Unavailable Daniel, Chema Chi Referring Unavailable Beatriz, Mitchell Attending Unavailable Daniel, Chema Chi Primary Care Unavailable Beatriz, Mitchell Referring Unavailable SlabRegino santos Attending Unavailable SlabRegino santos Referring Unavailable Daniel, Chema Chi Primary Care Unavailable Jeanmarierttate Raúl Consulting Unavailable Regino Hansen Consulting Unavailable Beatriz, [place] Attending Unavailable Beatriz, Mitchell Referring Unavailable Daniel, Chema Chi Primary Care Unavailable Beatriz, Mitchell Consulting Unavailable Oleghe, Efewongbe Attending Unavailable Oleghe, [...] Chema Chi Primary Care Unavailable Slaby Regino Referring Unavailable Daniel, Chema Chi Primary Care Unavailable Regino Hansen Admitting Unavailable Raúl Villareal Attending Unavailable JoRaúl pina Consulting Unavailable PROBLEMS PROBLEMS DATE TYPE CONDITION / CODE ATTENDING STATUS SOURCE Unknown R53.81 - Other malaise Daniel, Chema Chi Active [place] [facility] / R53.81(ICD-10) [facility] Rep[facility] Unknown G89.18 - Other acute Regino Hansen Active [facility] 9 postprocedural pain / Community G89.18(ICD-10) Hospital Repository Unknown 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, 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, [facility]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 / Hospital L89.154(ICD-10) Repository Unknown E55.9 - Vitamin D Daniel, Chema Chi Active [facility] 8 deficiency, unspecified Community / E55.9(ICD-10) Hospital Repository Unknown 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, 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, Community left eye, with retinal Hospital neovascularization / Repository H34.8121(ICD-10) Unknown I10 - Essential Daniel, Chema Chi Active [facility] 8 (primary) hypertension Community / I10(ICD-10) Hospital Repository Unknown 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 / Hospital I27.21(ICD-10) Repository Unknown Z01.810 - Encounter for BeatrizEusebio pottsril Active [facility] 8 preprocedural [facility] cardiovascular Hospital examination / Repository Z01.810(ICD-10) Unknown I35.9 - Nonrheumatic BeatrizEusebio pottsril Active [facility] 8 aortic valve disorder, Community unspecified / Hospital I35.9(ICD-10) Repository Unknown T81.89XA - Other Oleghe, Active [facility] 8 complications of [facility] procedures, not Hospital elsewhere classified, Repository initial encounter / T81.89XA(ICD-10) Unknown E66.01 - Morbid Oleghe, Active [facility] 8 (severe) obesity due to [facility] excess calories / Hospital E66.01(ICD-10) Repository Admitting Follow-up / 145() TRASHASHA, Active [facility] 8 diagnosis THO L [facility] Repository Unknown 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, 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 / Hospital N82.4(ICD-10) Repository Admitting Other female TRAUGSATURNINO, Active [facility] 8 diagnosis intestinal-genital THO [facility] tract fistulae / [facility] N82.4(ICD-10) Center Repository Admitting Pre-operative WEINER, Active [place] 8 diagnosis Consultation / 159() [facility] Repository Unknown N39.0 - Urinary tract Oleghe, Active [facility] 8 infection, site not [facility] specified / Hospital N39.0(ICD-10) Repository Unknown R09.89 - Other Jessica Terrazas Active [facility] 8 specified symptoms and Community signs involving the Hospital circulatory and Repository respiratory systems / R09.89(ICD-10) Unknown R82.90 - Unspecified Angela PA-C, Active [facility] 8 [facility] R82.90(ICD-10) Hospital Repository Unknown N89.8 - Other specified [place], Active [facility] 8 noninflammatory [facility] disorders of vagina / Hospital N89.8(ICD-10) Repository Unknown L89.613 - Pressure Oleghe, Active [place] 8 ulcer of right heel, [facility]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, [address] COMPREHENSIVE METABOLIC Collected: 06/23/2018 Status: F Source: [facility] 6:10 AM [facility] [place] TYPE CODE TESTS RESULT OUT OF RANGE REFERENCE UNITS LAB L501.0100 74-106 mg/dL Normal GLU 83 Result Comment: Please note revised GLUCOSE reference range effective 2017. LAB L501.1000 7-18 mg/dL High BUN 21 LAB L501.1100 0.55-1.02 mg/dL Normal CREAT,SERUM 0.58 Result Comment: The validity of the calculated GFR AND GFRAA in patients over 70 years has not been determined. Clinical correlation is essential. LAB L501.1110 >60 mL/min Normal EST GFR 110 Result Comment: Non- GFR Calc LAB L501.1115 >60 mL/min Normal EST GFR - AA 133 Result Comment: GFR Calc LAB L501.1255 ml/min Normal Estimated CRCL 47.79 LAB L501.1300 10-20 RATIO High BUN/CRE 36.1 LAB L501.1500 6.4-8. g/dL Normal 2 T PROT 6.7 LAB L501.1800 3.2-5. g/dL Low 0 ALB 2.9 LAB L501.1950 2.2-4. g/dL Normal 2 GLOB 3.8 LAB L501.2000 0.9-2. RATIO Low 4 A/G 0.8 LAB L501.2200 8.5-10 mg/dL Normal .1 CA 9.0 LAB L501.4100 15-37 U/L Low AST 12 LAB L501.4305 45-117 U/L Normal ALK P 73 LAB L501.4405 13-56 U/L Normal ALT 19 LAB L501.4600 0.20-1 mg/dL Normal .00 T BILI 0.20 LAB L501.5300 136-14 mmol/L Normal 5 NA 143 LAB L501.5600 3.5-5. mmol/L Normal 1 K 4.2 LAB L501.5900 98-107 mmol/L High CL 109 LAB L501.6100 21.0-3 mmol/L Normal 2.0 CO2 26.0 LAB L501.6200 5-15 Normal GAP 8 Performed By: #### L500.4050, L501.6710 #### [facility] [address] [place], [place], [id number] CRP Collected: 06/23/2018 Status: F Source: [facility] 6:10 AM [facility] [place] TYPE CODE TESTS RESULT OUT OF RANGE REFERENCE UNITS LAB L501.6710 0.0-3.0 mg/L High 27.20 C-REACTIVE PROT Result Comment: C-Reactive Protein (CRP) provides useful information for the diagnosis, therapy and monitoring of inflammatory processes and associated diseases. For the evaluation of Relative Risk for Cardiovascular Disease, a High Sensitivity CRP (HSCRP) should be ordered. Performed By: #### L500.4050, L501.6710 #### [facility] [address] [place], [address] VANCOMYCIN, TROUGH Collected: 06/20/2018 Status: F Source: [place] LEVEL 9:10 AM [facility] [place] Order Comment: Comments: 06/20 @ 0930 Time Medication is to be Given? 1000 TYPE CODE TESTS RESULT OUT OF REFERENCE UNITS RANGE LAB L501.8820 5.0-15.0 ug/mL High VANCO, TROUGH 17.5 Result Comment: VANCOMYCIN STANDARED DRUG THERAPY TROUGH LEVEL: 5.0 - 15.0 mg/L VANCOMYCIN HIGH INTENSITY THERAPY TROUGH LEVEL: 15.0 - 20.0 mg/L High Intensity therapy recommended for serious life threatening infections include: - Meningitis -Endocarditis -Pneumonia (Ventilator/Healtcare Associated) -Sepsis PLEASE CONTACT PHARMACY SERVICES (#[id number]) FOR INTERPRETATION OF RESULTS. Performed By: #### L501.8820 #### [facility] [address] [place], [address] BASIC METABOLIC Collected: 06/16/2018 Status: F Source: [place] PROFILE (BMP) 7:05 AM [facility] [place] TYPE CODE TESTS RESULT OUT OF RANGE REFERENCE UNITS LAB L501.0100 74-106 mg/dL Normal GLU 83 Result Comment: Please note revised GLUCOSE reference range effective 2017. LAB L501.1000 7-18 mg/dL High BUN 21 LAB L501.1100 0.55-1.02 mg/dL Normal CREAT,SERUM 0.60 Result Comment: The validity of the calculated GFR AND GFRAA in patients over 70 years has not been determined. Clinical correlation is essential. LAB L501.1110 >60 mL/min Normal EST GFR 105 Result Comment: Non- GFR Calc LAB L501.1115 >60 mL/min Normal EST GFR - AA 127 Result Comment: GFR Calc LAB L501.1255 ml/min Normal Estimated CRCL 47.79 LAB L501.1300 10-20 RATIO High BUN/CRE 34.7 LAB L501.2200 8.5-10 mg/dL Normal .1 CA 8.9 LAB L501.5300 136-14 mmol/L Normal 5 NA 143 LAB L501.5600 3.5-5. mmol/L Normal 1 K 4.4 LAB L501.5900 98-107 mmol/L High CL 110 LAB L501.6100 21.0-3 mmol/L Normal 2.0 CO2 25.0 LAB L501.6200 5-15 Normal GAP 8 Performed By: #### L500.2500, L500.4050, L501.6710 #### [facility] [address] [place], [place], [address] COMPREHENSIVE METABOLIC Collected: 06/16/2018 Status: F Source: [facility] 7:05 AM [facility] TYPE CODE TESTS RESULT OUT OF RANGE REFERENCE UNITS LAB L501.1500 6.4-8.2 g/dL Normal T PROT 6.8 LAB L501.1800 3.2-5.0 g/dL Low ALB 3.0 LAB L501.1950 2.2-4.2 g/dL Normal GLOB 3.8 LAB L501.2000 0.9-2.4 RATIO Low A/G 0.8 LAB L501.4100 15-37 U/L Low AST 12 LAB L501.4305 45-117 U/L Normal ALK P 72 LAB L501.4405 13-56 U/L Normal ALT 19 LAB L501.4600 0.20-1.00 mg/dL Normal T BILI 0.30 Performed By: #### L500.2500, L500.4050, L501.6710 #### [facility] [address] [place], [place], [address] CRP Collected: 06/16/2018 Status: F Source: [place] 7:05 [facility] [place] TYPE CODE TESTS RESULT OUT OF RANGE REFERENCE UNITS LAB L501.6710 0.0-3.0 mg/L High 10.70 C-REACTIVE PROT Result Comment: C-Reactive Protein (CRP) provides useful information for the diagnosis, therapy and monitoring of inflammatory processes and associated diseases. For the evaluation of Relative Risk for Cardiovascular Disease, a High Sensitivity CRP (HSCRP) should be ordered. Performed By: #### L500.2500, L500.4050, L501.6710 #### [facility] [address] [place], [address] ERYTHROCYTE SED RATE Collected: 06/16/2018 Status: F Source: [place] 7:05 AM [facility] TYPE CODE TESTS RESULT OUT OF RANGE REFERENCE UNITS LAB L102.0000 0-30 mm/hr High SED RATE 38 Performed By: #### L101.9900, L100.0100 #### [facility] [address] [place], [address] CBC W/DIFF, AUTOMATED Collected: 06/16/2018 Status: F Source: [place] 7:05 AM [facility] TYPE CODE TESTS RESULT OUT OF RANGE REFERENCE UNITS LAB L100.1000 4.4-11.0 K/mm3 Normal WBC 7.5 LAB L100.1200 4.2-5.4 M/mm3 Normal RBC 4.38 LAB L100.1300 12.0-15.0 g/dl Low HGB 11.0 LAB L100.1400 37-47 % Low HCT 36.7 LAB L100.1500 81-99 fL Normal MCV 83.8 LAB L100.1600 27.0-32.0 pg Low MCH 25.1 LAB L100.1700 32-36 g/gl Low MCHC 30.0 LAB L100.1810 11.6-14.6 % High RDW CV 20.8 LAB L100.1820 35.1-43.9 fl High RDW SD 62.9 LAB L100.1900 150-450 K/mm3 Normal PLT 311 LAB L100.2000 6.2-12.0 fl Normal MPV 9.0 LAB L100.2100 47-70 % Normal NEUT% 58.8 LAB L100.2200 19-41 % Normal LY% 21.2 LAB L100.2300 0-10 % High MONO% 13.3 LAB L100.2400 0-5 % High EO% 5.7 LAB L100.2500 0-1 % Normal BASO% 0.7 LAB L100.2550 0.0-0.9 % Normal IM GRAN % 0.300 Result Comment: IG% - Immature Granulocytes (promyelocytes, myelocytes and metamyelocytes) > 1% indicates that a LEFT SHIFT is Present. LAB L100.2620 2.0-7.7 X10 3/uL Absolute Neut Normal 4.4 LAB L100.2720 0.83-4.51 X10 3/ul Absolute Lymph Normal 1.59 LAB L100.5500 ADEQ PLT EST Normal ADEQUATE LAB L100.7300 ANISO Normal 1+ LAB L100.7600 HYPOCHROMASIA Normal RARE Performed By: #### L101.9900, L100.0100 #### [facility] [address] [place], [address] VANCOMYCIN, TROUGH Collected: 06/13/2018 Status: F Source: [facility] 9:20 AM [facility] Order Comment: Comments: Draw 30 minutes prior to vanco dose due at 1000. Time Medication is to be Given? 1000 TYPE CODE TESTS RESULT OUT OF REFERENCE UNITS RANGE LAB L501.8820 5.0-15.0 ug/mL High VANCO, TROUGH 18.1 Result Comment: VANCOMYCIN STANDARED DRUG THERAPY TROUGH LEVEL: 5.0 - 15.0 mg/L VANCOMYCIN HIGH INTENSITY THERAPY TROUGH LEVEL: 15.0 - 20.0 mg/L High Intensity therapy recommended for serious life threatening infections include: - Meningitis -Endocarditis -Pneumonia (Ventilator/Healtcare Associated) -Sepsis PLEASE CONTACT PHARMACY SERVICES (#[id number]) FOR INTERPRETATION OF RESULTS. Performed By: #### L501.8820 #### [facility] [address] [place], [address] ERYTHROCYTE SED RATE Collected: 06/09/2018 Status: F Source: [facility] 6:45 AM [facility] TYPE CODE TESTS RESULT OUT OF RANGE REFERENCE UNITS LAB L102.0000 0-30 mm/hr High SED RATE 42 Performed By: #### L101.9900, L100.0100 #### [facility] [address] [place], [address] CBC W/DIFF, AUTOMATED Collected: 06/09/2018 Status: F Source: [place] 6:45 AM [facility] TYPE CODE TESTS RESULT OUT OF RANGE REFERENCE UNITS LAB L100.1000 4.4-11.0 K/mm3 Normal WBC 8.0 LAB L100.1200 4.2-5.4 M/mm3 Normal RBC 4.25 LAB L100.1300 12.0-15.0 g/dl Low HGB 10.6 LAB L100.1400 37-47 % Low HCT 34.8 LAB L100.1500 81-99 fL Normal MCV 81.9 LAB L100.1600 27.0-32.0 pg Low MCH 24.9 LAB L100.1700 32-36 g/gl Low MCHC 30.5 LAB L100.1810 11.6-14.6 % High RDW CV 21.4 LAB L100.1820 35.1-43.9 fl High RDW SD 63.8 LAB L100.1900 150-450 K/mm3 Normal PLT 427 LAB L100.2000 6.2-12.0 fl Normal MPV 9.0 LAB L100.2100 47-70 % Normal NEUT% 58.8 LAB L100.2200 19-41 % Normal LY% 22.5 LAB L100.2300 0-10 % High MONO% 13.0 LAB L100.2400 0-5 % Normal EO% 5.0 LAB L100.2500 0-1 % Normal BASO% 0.6 LAB L100.2550 0.0-0.9 % Normal IM GRAN % 0.100 Result Comment: IG% - Immature Granulocytes (promyelocytes, myelocytes and metamyelocytes) > 1% indicates that a LEFT SHIFT is Present. LAB L100.2620 2.0-7.7 X10 3/uL Normal Absolute Neut 4.7 LAB L100.2720 0.83-4.51 X10 3/ul Normal Absolute Lymph 1.80 LAB L100.7300 Normal ANISO RARE Performed By: #### L101.9900, L100.0100 #### [facility] [address] [place], [address] COMPREHENSIVE METABOLIC Collected: 06/09/2018 Status: F Source: [facility] 6:45 AM [facility] TYPE CODE TESTS RESULT OUT OF RANGE REFERENCE UNITS LAB L501.0100 74-106 mg/dL Normal GLU 83 Result Comment: Please note revised GLUCOSE reference range effective 2017. LAB L501.1000 7-18 mg/dL Normal BUN 18 LAB L501.1100 0.55-1.02 mg/dL Normal CREAT,SERUM 0.60 Result Comment: The validity of the calculated GFR AND GFRAA in patients over 70 years has not been determined. Clinical correlation is essential. LAB L501.1110 >60 mL/min Normal EST GFR 107 Result Comment: Non- GFR Calc LAB L501.1115 >60 mL/min Normal EST GFR - AA 130 Result Comment: GFR Calc LAB L501.1255 ml/min Normal Estimated CRCL 47.79 LAB L501.1300 10-20 RATIO High BUN/CRE 30.3 LAB L501.1500 6.4-8. g/dL Normal 2 T PROT 6.9 LAB L501.1800 3.2-5. g/dL Low 0 ALB 3.0 LAB L501.1950 2.2-4. g/dL Normal 2 GLOB 3.9 LAB L501.2000 0.9-2. RATIO Low 4 A/G 0.8 LAB L501.2200 8.5-10 mg/dL Normal .1 CA 8.9 LAB L501.4100 15-37 U/L Normal AST 16 LAB L501.4305 45-117 U/L Normal ALK P 72 LAB L501.4405 13-56 U/L Normal ALT 19 LAB L501.4600 0.20-1 mg/dL Normal .00 T BILI 0.30 LAB L501.5300 136-14 mmol/L Normal 5 NA 143 LAB L501.5600 3.5-5. mmol/L Normal 1 K 4.0 LAB L501.5900 98-107 mmol/L High CL 110 LAB L501.6100 21.0-3 mmol/L Normal 2.0 CO2 26.0 LAB L501.6200 5-15 Normal GAP 7 Performed By: #### L500.4050, L501.6710 #### [facility] [address] [place], [place], [address] CRP Collected: 06/09/2018 Status: F Source: [facility] 6:45 AM [facility] TYPE CODE TESTS RESULT OUT OF RANGE REFERENCE UNITS LAB L501.6710 0.0-3.0 mg/L High 11.50 C-REACTIVE PROT Result Comment: C-Reactive Protein (CRP) provides useful information for the diagnosis, therapy and monitoring of inflammatory processes and associated diseases. For the evaluation of Relative Risk for Cardiovascular Disease, a High Sensitivity CRP (HSCRP) should be ordered. Performed By: #### L500.4050, L501.6710 #### [facility] [address] [place], [address] VANCOMYCIN, TROUGH Collected: 06/08/2018 Status: F Source: [facility] 9:19 PM [facility] Order Comment: Comments: Please draw 06/08 @ 2130 Time Medication is to be Given? 2200 TYPE CODE TESTS RESULT OUT OF REFERENCE UNITS RANGE LAB L501.8820 5.0-15.0 ug/mL High VANCO, TROUGH 16.7 Result Comment: VANCOMYCIN STANDARED DRUG THERAPY TROUGH LEVEL: 5.0 - 15.0 mg/L VANCOMYCIN HIGH INTENSITY THERAPY TROUGH LEVEL: 15.0 - 20.0 mg/L High Intensity therapy recommended for serious life threatening infections include: - Meningitis -Endocarditis -Pneumonia (Ventilator/Healtcare Associated) -Sepsis PLEASE CONTACT PHARMACY SERVICES (#[id number]) FOR INTERPRETATION OF RESULTS. Performed By: #### L501.8820 #### [facility] [address] [place], [address] VANCOMYCIN, TROUGH Collected: 06/06/2018 Status: F Source: [facility] 10:18 AM [facility] Order Comment: Comments: Please draw 06/06 @ 1030 Time Medication is to be Given? 1100 TYPE CODE TESTS RESULT OUT OF RANGE REFERENCE UNITS LAB L501.8820 5.0-15.0 ug/mL Normal VANCO, TROUGH 13.5 Result Comment: VANCOMYCIN STANDARED DRUG THERAPY TROUGH LEVEL: 5.0 - 15.0 mg/L VANCOMYCIN HIGH INTENSITY THERAPY TROUGH LEVEL: 15.0 - 20.0 mg/L High Intensity therapy recommended for serious life threatening infections include: - Meningitis -Endocarditis -Pneumonia (Ventilator/Healtcare Associated) -Sepsis PLEASE CONTACT PHARMACY SERVICES (#[id number]) FOR INTERPRETATION OF RESULTS. Performed By: #### L501.8820 #### [facility] [address] [place], [address] CHEST 1 VIEW Observed: 06/06/2018 Status: F Source: [facility] (PORTABLE) 8:17 AM [facility] Imaging Services [address] [place] [address] Chest 1 View (Portable) MR#: [id number] Acct: [id number] Name: CHARISSA GUNTER Rep #: [id number] : 1950 F 67 From: Fidel Rojas MD PCP: Chema Schmidt MD, Chi Status: ADM IN Study: Chest 1 View (Portable) Date of Exam: 06/06/18 Exam# [id number] Ordering Dr: Chema Schmidt MD STUDY: X-RAY CHEST REASON FOR EXAM: Female, 67 years old. Chest pain. TECHNIQUE: Single AP portable view of the chest. COMPARISON: None. FINDINGS: There is elevation of the right hemidiaphragm. Scattered calcified granulomas. The lungs are clear. There is no demonstrated pleural abnormality. Normal size heart. Normal mediastinum and lacey. Normal visualized pulmonary arteries. There is atherosclerotic calcification of the aortic arch with tortuosity. There are degenerative changes of the visualized thoracic spine. Normal visualized ribs, clavicles, and shoulders. There is no demonstrated abnormality of the visualized soft tissue structures of the upper abdomen. RAD/Chest 1 View (Portable) IMPRESSION: No acute abnormality is seen. Electronically Signed: Fidel Rojas MD at 15:18 EST Tel [phone], Service support , CC: Chema Schmidt MD Portable Router Operator: Signed VANCOMYCIN, RANDOM Collected: 06/05/2018 Status: F Source: [facility] 7:10 AM [facility] TYPE CODE TESTS RESULT OUT OF RANGE REFERENCE UNITS LAB L501.8850 0.0-15.0 ug/mL Normal VANCO, RANDOM 11.3 Result Comment: VANCOMYCIN STANDARD DRUG THERAPY: CRITICAL VALUE IS > 15.0 mg/L VANCOMYCIN HIGH INTENSITY THERAPY: CRITICAL VALUE IS > 20.0 mg/L PLEASE CONTACT PHARMACY SERVICES (#[id number]) FOR INTERPRETATION OF RESULTS. THIS RESULT DOES NOT REPRESENT A PEAK OR TROUGH LEVEL FOR THIS DRUG. Performed By: #### L501.8850 #### [facility] [address] [place], [address] DISCHARGE SUMMARY Observed: 06/04/2018 Status: F Source: [place] 6:42 PM [facility] Medical Records Department [address] [place] [address] Discharge Summary 06/01/18 1245 MR#: [id number] Acct: [id number] Name: CHARISSA GUNTER Rep #: [id number] : 1950 67 From: Regino Hansen MD PCP: Daniel MELISSA,Chema Gil Status: DIS IN Y Location: [facility] [place] PL520-7 Discharge Date and Diagnosis Date of Admission: 05/29/18 Date of Discharge: 06/01/18 - Primary Discharge Diagnosis Acute osteomyelitis of sacrum - Secondary Discharge Diagnosis Secondary pulmonary arterial hypertension Non-rheumatic tricuspid valve insufficiency Essential (primary) hypertension Pressure ulcer of right heel, stage 3 Pressure ulcer of left heel, stage 3 Morbid obesity with BMI of 40.0-44.9 GERD (gastroesophageal reflux disease) Depression Hypothyroidism Pressure ulcer of sacral region, stage 4 Neuropathy Hospital Course and Treatment Imaging Results: None. Consultations 05/30/18 06:48 Consult: Onc/Wound/associate media planner Routine Comment: Reason for Consult:: vac sacrum Infectious Diseases - Dr. Preston. Operations: None Procedures: PICC line placement, Wound vac placement Summary of Care Provided: 67 year old woman presented with a sacral pressure sore and associated osteomyelitis. She had recent surgery on 05/14/18, where she was taken to the OR and underwent excision sacral pressure sore, Stage IV, with partial ostectomy for osteomyelitis. Operative culture showed Corynebacterium minutissimum and Staphylococcus epidermidis in the soft tissue and Corynebacterium minutissimum in the bone. She was initially discharged home on Augmentin. When the Pathology results came back showing acute osteomyelitis, it was recommended to the patient that she needed IV antibiotics and the placement of a PICC line. So on 05/29/18, she was admitted to the hospital to continue wound care with the VAC to the sacral pressure sore and to have a PICC line inserted and IV antibiotics started with Vancomycin. WBC improved from 14.7 at admission to 10.7 at discharge. Her Hgb was stable from 11.1 at admission to 10.6 at discharge. Her inflammatory markers showed CRP was 26.00 and ESR was 45 at admission. Infectious Diseases was consulted and they agreed that IV Vancomycin was necessary for 6 weeks secondary to the osteomyelitis. Initially we were going to send her home for the IV antibiotics. However the copay per month was over $1000 and the patient stated she couldn't afford that. So she was discharged on the 3rd hospital day after she was approved to go to TCU for continued IV antibiotics with Vancomycin and continued wound care with the VAC. Her Prealbumin on admission was 22.0. Encouraged nutritional supplementation with protein to help the healing process. After discharge from TCU, she will followup at the [facility]. Wrote scripts for OxyIR for pain (50 tabs) and for Valium for spasm (30 tabs). Subjective: Patient resting comfortably. - Physical Exam General: Alert, Oriented x3 HEENT: PERRLA, EOMI Oral: Moist Mucosa Neck: Supple Abdomen: Soft, Non-Distended Skin: Ulcer/ Wound - sacral wound is stable. VAC in place. Minimal drainage in the canister. Neurological: Cranial nerves II-XII grossly intact Psych/Mental Status: Normal Affect, Appropriate Vital Signs Temp Pulse Resp BP Pulse Ox 98.9 F 71 16 111/63 95 06/01/18 07:53 06/01/18 07:53 06/01/18 07:53 06/01/18 07:53 06/01/18 07:53 Oxygen Flow Rate (L/min) 2.5 Oxygen Delivery Method Room Air Weight: 202 lb 15.991 oz Body Mass Index (BMI) 34.8 Intake and Output for Last 24 Hours Intake Total 2661 / 2661 703 / 703 1638 / 1638 Balance 2661 / 2661 703 / 703 1638 / 1638 Discharge Diet: No Restrictions, - - encourage nutritional supplementation with protein to help the healing process. Discharge Activity: May Shower - on the days the vac is changed. May shower in (days): 2 - may shower on the days the vac is changed. Weight Bearing Status: Weight bearing as tolerated Call your doctor if your incision/area has: Continuous Slow Oozing, Sudden Increased Bleeding, Increased Pain/ Swelling, Increased Redness, Foul Smelling Discharge, Swelling at the incision site Call your doctor if you observe: Fever of 101 or Higher, Coldness, Increased Pain, Shortness of breath, Chest pain, Calf discomfort, Uncontrolled pain Suture Line Care: - - vac change three times per week at 150 mmHg continuous suction. Change Dressing in (Days):: 2 - vac changes three times per week. Cleanse incision/area with: Soap AND Water - may cleanse the sacral wound with soap and water on the days the vac is changed. Additional Dressing/Incision Instructions:: Nursing to do the vac changes to sacral wound three times per week at 150 mmHg continuous suction. Nursing may cleanse the sacral wound with soap and water at the time of the vac change. Home Medications: Medications to take at Discharge Levothyroxine [Synthroid] 25 mcg PO DAILY 03/02/17 cholecalciferol (vitamin D3) 50,000 unit capsule 50,000 unit PO QMONTH 08/02/17 Ascorbic Acid 500 mg PO DAILY 08/21/17 Potassium Chloride [K-Dur] 40 meq PO DAILY 12/26/17 Aspirin E.C. [Ecotrin] 81 mg PO DAILY 04/11/18 Omeprazole 40 mg PO 1400 04/11/18 green tea leaf extract capsule 1 cap PO DAILY cap 04/19/18 omega-3 fatty acids 1,000 mg capsule 1,000 mg PO DAILY 04/19/18 Acetaminophen [Tylenol Tablet] 650 mg PO Q6H PRN PRN tablet 05/17/18 0.9% Saline Lock 10 - 20 ml IV UD PRN syringe 06/01/18 Diazepam [Valium] 5 mg PO 4X/DAY PRN PRN #30 tab 06/01/18 Docusate Sodium [Colace] 100 mg PO BID 06/01/18 Heparin Pf Lock 10 units/ml 50 units IV UD PRN syringe 06/01/18 Iron Polysaccharide Complex [Ferrex 150] 150 mg PO DAILYCM 06/01/18 Nutritional Supplement [Teofilo - ORANGE FLAVOR] 1 packet PO BIDCM 06/01/18 Oxycodone [Oxyir] 10 mg PO Q4H PRN PRN 7 Days #50 tab 06/01/18 Vancomycin IV 1,500 mg IV Q12H 06/01/18 Vancomycin IV 750 mg IV Q12H 06/01/18 Vancomycin IV Pharmacy to Dose 1 ea IV PRN PRN each 06/01/18 proMETHazine tablet [Phenergan tablet] 25 mg PO Q4H PRN PRN tablet 06/01/18 Following Prescrptions Were Given to Patient: Oxycodone [Oxyir] 10 mg PO Q4H PRN PRN 7 Days #50 tab PRN Reason: Severe Pain (-03/13) Diazepam [Valium] 5 mg PO 4X/DAY PRN PRN #30 tab PRN Reason: Spasms Primary Care Physician: Chema Schmidt Chi, MD [Primary Care Provider] - Please Follow Up With: Regino Hansen MD When: after discharge from TCU at wound center. call [phone] for appt. Additional Instructions: Nursing to check CBC, CMP, ESR, CRP, Vancomycin Trough qweekly. Pharmacy to dose the Vancomycin. Disposition: Assisted facility Minutes spent on discharge:: 35 Medical Necessity - Tobacco Use Smoking Status: Former smoker Meaningful Use Info Meaningful Use Diagnoses (Choose all that apply): None applicable 06/04/181841 <Electronically signed by Regino Hansen MD> Date Regino Hansen MD Cosigner Signature (if applicable): Date CC: Brant Santiago MD; Regino Hansen MD; Jessica Preston MD; Chema Schmidt MD; [facility] Signed VANCOMYCIN, TROUGH Collected: 06/04/2018 Status: F Source: [facility] 5:31 PM [facility] Order Comment: Time Medication is to be Given? 1800 TYPE CODE TESTS RESULT OUT OF REFERENCE UNITS RANGE LAB L501.8820 5.0-15.0 ug/mL High VANCO, TROUGH 26.6 Result Comment: VANCOMYCIN STANDARED DRUG THERAPY TROUGH LEVEL: 5.0 - 15.0 mg/L VANCOMYCIN HIGH INTENSITY THERAPY TROUGH LEVEL: 15.0 - 20.0 mg/L High Intensity therapy recommended for serious life threatening infections include: - Meningitis -Endocarditis -Pneumonia (Ventilator/Healtcare Associated) -Sepsis PLEASE CONTACT PHARMACY SERVICES (#[id number]) FOR INTERPRETATION OF RESULTS. Performed By: #### L501.8820 #### [facility] [address] [place], [address] HISTORY AND PHYSICAL Observed: 06/03/2018 Status: F Source: [facility] 8:34 AM [facility] Medical Records Department [address] [place] [address] History and Physical 06/01/18 1759 MR#: [id number] Acct: [id number] Name: CHARISSA GUNTER Rep #: [id number] : 1950 67 From: Chema Schmidt MD PCP: Chema Schmidt MD, Chi Status: ADM IN Y Location: [place] [address] Problem List (1) Hypertension Status: Chronic (2) Acute osteomyelitis of sacrum Status: Acute (3) GERD (gastroesophageal reflux disease) Status: Chronic (4) Depression Status: Chronic (5) Hypothyroidism Status: Chronic (6) Pressure ulcer of sacral region, stage 4 Status: Chronic (7) Neuropathy Status: Chronic History of Present Illness Date of Admission: 06/01/18 Chief Complaint: Here for rehabilitation, strengthening, wound care, intravenous antibiotics prior to dischage home. The patient is a 67 year old Female with below past medical history with stage [address] negative for osteomyelitis. Positive for colovesical fistula, repaired at [facility] December 2017. Dr. Hansen performed debridement, partial ostectomy for osteomyelitis 05/14/2018. Cultures grew S. Epi, C. Minutissimum. Admit for IV Vancomycin for osteomyelitis. 05/31/2018 Dr. Preston noted Corynebacterium, MSSE, recent cultures grew MSSA. Recommend Vancomycin IV for 6 weeks, PICC line placed. 06/01/2018 Admit to TCU for debility, here for rehabilitation, strengthening, wound care, intravenous antibiotics. Dr. Preston, Dr. Hansen following. Past Medical History Past Medical History (Chronic Problems): Chronic Problems (Last Reviewed 05/16/18 @ 14:58 by Raúl Villareal DO) Hypertension (Chronic) Secondary pulmonary arterial hypertension (Chronic) Non-rheumatic tricuspid [...] History of partial colectomy Z90.49 Surgical History: hysterectomy, - - She is a Ab0. Surgical debridement of her sacral pressure ulceration was performed on April 12, 2017, at [facility]. 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 Review of Systems Constitutional: Denies: Chills, Fever, Weight Change HEENT: Denies: Head Aches, Sinus Congestion, Sinus Drainage Cardiovascular: Denies: Chest Pain, Palpitations Respiratory: Denies: Cough, Shortness of breath at rest, Sputum production Gastrointestinal: Denies: Abdominal Pain, Nausea, Vomiting Genitourinary: Denies: Dysuria Musculoskeletal: Denies: Joint Pain, Joint Tenderness Skin: Denies: Rash, Wounds Neurological: Denies: Numbness, Tingling, Focal weakness Psychiatric: Denies: Anxiety, Depression, Homicidal Ideations, Suicidal Ideations Hematologic/ Lymphatic: Denies: Easy Bruising, Easy Bleeding VTE Information - Inpt Only VTE Present on Admission: No VTE Mechan Device Prophylaxis: Knee High CHRISTOPHE Hose VTE Pharm Prophylaxis ordered?: Yes - Physical Exam General: Alert, Oriented x3, Cooperative HEENT: Atraumatic, PERRLA, EOMI, Normocephalic Neck: Supple, No JVD, Negative Carotid Bruits Lungs: Clear to auscultation, Normal air movement Cardiovascular: Regular rate, No murmurs Abdomen: Bowel Sounds Present, Soft, Non Tender Extremities: No edema, Capillary Refill Less than 3 Seconds Skin: No rashes, Ulcer/ Wound - Sacral wound vac. Musculoskeletal: No Tenderness to Palpation of Joints or Extremities Neurological: Cranial nerves II-XII grossly intact Psych/Mental Status: Normal Affect, Appropriate Vital Signs Temp Pulse Resp BP Pulse Ox 97.3 F L 100 16 161/90 H 93 06/01/18 15:37 06/01/18 15:37 06/01/18 15:37 06/01/18 15:37 06/01/18 15:37 Oxygen Delivery Method Room Air Weight: 92.125 kg Body Mass Index (BMI) 34.8 Laboratory Tests Past 24 Hrs Vancomycin Trough 14.1 Assessment/Plan All Active Problems (Last Reviewed 05/16/18 @ 14:58 by Raúl Villareal DO) Acute osteomyelitis of sacrum (Acute) Acute blood loss anemia (Acute) Surgical wound present (Acute) Preop cardiovascular exam (Acute) Colovaginal fistula (Acute) Failure to thrive (Acute) Clostridium difficile colitis (Acute) Septic shock (Resolved) VITO (acute kidney injury) (Resolved) Encephalopathy (Resolved) Atrial fibrillation with RVR (Resolved) Clostridium difficile infection (Resolved) Rhabdomyolysis (Resolved) 67 year old female with below past medical history significant for stage 4 sacral pressure ulcer, hospitalized for sacral osteomyelitis, requiring fdc intravenous antibiotics, admitted to TCU with debility, here for rehabilitation, strengthening, wound care, intravenous antibiotics prior to discharge home. * Debility - PT/OT. * Pain - Tylenol 1000MG Q6H PRN mild pain, Oxycodone 10MG Q4H PRN severe pain. * Bowel - Miralax 17GM daily, Senna/colace 2 tablets BID, Dulcolax 10MG PO daily PRN. * Pneumonia vaccination - Administer Prevnar 13 and/or Pneumovax 23 as necessary. * DVT prophylaxis - Lovenox 40MG SC daily. * Vitamin C deficiency - Vitamin C 500MG daily. * CV prophylaxis - Aspirin 81MG daily. * Anxiety - Diazepam 5MG 4x/day PRN, resident doing well with fdc chronic use, GDR clinically contraindicated. * Vitamin D deficiency - D2 50,000 units per month. * Iron deficiency anemia - Ferrex 150MG daily. * Hypothyroidism - Levothyroxine 25MCG daily. * Stage 4 sacral pressure ulcer - Teofilo 1 packet BID, Wound VAC, Wound Team, Dr. Hansen. * Hyperlipidemia - Lovaza 1GM daily. * GERD - Pantoprazole 40MG daily. * Hypokalemia - K-Dur 40MEQ daily. * Nausea - Phenergan 25MG Q4H PRN> * Sacral osteomyelitis - Vancomycin IV, pharmacy to dose, stop date per Dr. Preston. 06/03/18 0834 <Electronically signed by Chema Schmidt MD> Date Chema Schmidt MD Cosigner Signature: Date (if applicable) CC: Chema Schmidt MD Signed CBC W/DIFF, AUTOMATED Collected: 06/02/2018 Status: F Source: [place] 4:52 AM [facility] Order Comment: SPECIMEN OBTAINED FROM LINE DRAW TYPE CODE TESTS RESULT OUT OF RANGE REFERENCE UNITS LAB L100.1000 4.4-11.0 K/mm3 Normal WBC 10.0 LAB L100.1200 4.2-5.4 M/mm3 Low RBC 4.06 LAB L100.1300 12.0-15.0 g/dl Low HGB 10.3 LAB L100.1400 37-47 %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 L100.1300 12.0-15.0 g/dl Low alert HGB 5.8 Result Comment: CRITICAL VALUE VERIFIED. CALLED TO RONALDIRMumtaz 05/16/18 Osvaldo Coppola. RESULTS READ BACK BY SAME . [...] October Performed By: #### L100.0500, L100.4500 #### [facility] [address] [place], [place], [address] DIFFERENTIAL COMMENT Collected: 05/16/2018 Status: F Source: RIGOBRETO 1:30 AM [facility] TYPE CODE TESTS RESULT OUT OF RANGE REFERENCE UNITS LAB L100.4500 Normal SMEAR COMMENT SCANNED Result Comment: HYPOCHROMASIA 1+ POLYCHROMASIA 1+ RARE TARGET CELLS Performed By: #### L100.0500, L100.4500 #### [facility] [address] [place], [place], [address] TYPE AND SCREEN Collected: 05/16/2018 Status: F Source: [place] 1:30 AM [facility] Order Comment: CMV NEG? N Number [...] NEGATIVE Screen Performed By: #### B101.7450 #### [facility] [address] [place], [address] RC Collected: 05/16/2018 Status: F Source: [place] 1:30 AM [facility] TYPE CODE TESTS RESULT OUT OF REFERENCE UNITS RANGE LAB U100.0000 [id number] TRANSFUSED PRODUCT: T AND S with Crossmatch, Red Cells COUNT: 2 Performed By: #### U100.0000 #### [facility] - refer to report for specific site RC Collected: 05/16/2018 Status: F Source: [place] 1:30 AM [facility] TYPE CODE TESTS RESULT OUT OF REFERENCE UNITS RANGE LAB U100.0000 [id number] TRANSFUSED PRODUCT: T AND S with Crossmatch, Red Cells COUNT: 2 Performed By: #### U100.0000 #### [facility] - refer to report for specific site HISTORY AND PHYSICAL Observed: 05/15/2018 Status: F Source: [place] EXAM 11:51 PM [facility] Medical Records Department [address] [place] [address] History and Physical 05/14/18 0000 MR#: [id number] Acct: [id number] Name: CHARISSA GUNTER Rep #: [id number] : 1950 67 From: Regino Hansen MD PCP: Daniel MELISSA,Chema Gil Status: ADM IN Y Location: [facility] [id number] History and Physical Date of Admission: 05/14/18 [...] antibiotics. She was recently [place]. I was asked to evaluate her sacral [...] consistently because they are not visualized. 05/15/18 0638 <Electronically signed by Regino Hansen MD> Date Regino Hansen MD Cosigner Signature: Date (if applicable) CC: Brant Santiago MD; Regino Hansen MD; Chema Schmidt MD; [facility] Signed CBC-COMPLETE BLOOD CNT Collected: 05/15/2018 Status: F Source: [place] NO DIFF 5:28 AM [facility] TYPE [...] 9.4 Performed By: #### L100.0500, L100.4500 #### [facility] [address] [place], [place], [address] DIFFERENTIAL COMMENT Collected: 05/15/2018 Status: F Source: [place] 5:28 AM [facility] TYPE CODE TESTS RESULT OUT OF RANGE REFERENCE UNITS LAB L100.4500 Normal SMEAR COMMENT SCAN Result Comment: HYPHOCHROMIA 1+ MICROCYTOSIS 1+ POLYCHROMASIA 1+ ANISOCYTOSIS 1+ Performed By: #### L100.0500, L100.4500 #### [facility] [address] [place], [place], [address] BASIC METABOLIC Collected: 05/15/2018 Status: F Source: RIGOBERTO PROFILE (BMP) 5:28 AM [facility] TYPE [...] 11 Performed By: #### L500.2500, L506.0500 #### [facility] [address] [place], [address] PREALBUMIN Collected: 05/15/2018 Status: F Source: [place] 5:28 AM [facility] TYPE CODE TESTS RESULT OUT OF REFERENCE UNITS RANGE LAB L506.0500 20.0-40.0 mg/dL Low PREALBUMIN 19.3 Performed By: #### L500.2500, L506.0500 #### [facility] [address] [place], [address] PRESSURE SORE Observed: 05/14/2018 Status: F Source: [place] 1:25 PM [facility] Patient: CHARISSA GUNTER : 1950 (67/F) Acct Num: [id number] Phys: Raúl Villareal DO Unit Num: [id number] Loc: MS3 BL521-4 Specimen: [id number] Received: 05/15/182 Spec Type: PRESS SORE TISSUES 1 TISSUES: [...] is noted. No mass lesion is identified. Grocery Cashier sections are submitted in three cassettes. / SJ:andrew 05/15/18 TC :2 CPT: 10342 x2, 52218 HEADER OPERATION: Excision sacral pressure sore, partial [...] inflammation and granulation. AM:andrew 05/20/18 Signed Mello Valenzuela, 05/21/18 <signature on file> Performed By: #### PPRES #### [facility] [place], [address] Observed: 05/14/2018 Status: F Source: [place] CULTURE, DEEP WOUND 12:00 AM [facility] Order Date: 01/03/17 Comments: Sacral Pressure [...] 1 S (NF) indicates non-formulary drug at [facility]. Approval by Infectious Disease Specialist required before non-formulary drugs may be ordered and/or dispensed. * CLSI guidelines does not recommend testing of cephalosporins. This interpretation is deduced from Beta-lactam/penicillin results. Cult, Anaerobic No growth in 5 days. Performed By: #### M100.1500, M6.1900 #### [facility] [address] [place], [address] Observed: 05/14/2018 Status: F Source: [place] JANET, FUNGUS W/ 12:00 [facility] [id number] REPOSITORY Comments: Sacral Pressure Sore Tissue, Collected in OR Is this test to exclude patient from TB Isolation? N Cu,Upvivq2480 TESTING PERFORMED AT [facility]. ORIGINAL REPORT ON FILE IN LAB CONTAINS ADDITIONAL TEST SITE INFORMATION. CUF No yeast or mold isolated after [address] TESTING PERFORMED AT [facility]. ORIGINAL REPORT ON FILE IN LAB CONTAINS ADDITIONAL TEST SITE INFORMATION. Fungus Stain No yeast or mold observed. Performed By: #### M100.1500, M6.0 #### [facility] [address] [place], [address] Observed: 05/14/2018 Status: F Source: [place]O GONZALES, DEEP WOUND 12:00 [facility] Order Date: 01/03/17 Comments: Sacral Pressure Sore Bone, Collected in OR Gram Stain Gram Stain 3+ Red Blood Cells 1+ White Blood Cells No organisms seen Wound Culture There are no CLSI standards for interpretation of this Drug/Organism combination. ORGANISM 1: Corynebacterium minutissimum Amount Growth Very Rare Cult, Anaerobic No growth in 5 days. Performed By: #### M100.1500 #### [facility] [place], [address] Observed: 05/14/2018 Status: F Source: RIGOBERTO GONZALES, FUNGUS W/ 12:00 [facility] [id number] REPOSITORY Comments: Sacral Pressure Sore Bone, Collected in OR Is this test to exclude patient from TB Isolation? N Cu,Hsqxgx3283 [facility] ORIGINAL REPORT ON FILE IN LAB CONTAINS ADDITIONAL TEST SITE INFORMATION. CUF No yeast or mold isolated after [address] [facility]. ORIGINAL REPORT ON FILE IN LAB CONTAINS ADDITIONAL TEST SITE INFORMATION. Fungus Stain No yeast or mold observed. Performed By: #### M600.1900 #### [facility] [address] [place], [address] HIP, UNI W/ PELVIS Observed: 04/30/2018 Status: F Source: RIGOBERTO 2-3 VIEWS 2:29 PM [facility] Imaging Services [address] [address] HIP, UNI W/ Pelvis 2-3 Views MR#: [id number] Acct: [id number] Name: CHARISSA GUNTER Rep #: [id number] : 1950 F 67 From: Vicki Kinsey MD PCP: Chema Schmidt MD, Chi Status: REG CLI Study: HIP, UNI W/ Pelvis 2-3 Views Date of Exam: 04/30/18 Exam# [id number] Ordering Dr: Chema Schmidt MD STUDY: X-RAY [...] Service support , CC: Chema Schmidt MD Portable Router Operator: Signed VITAMIN D,25 HYDROXY Collected: 04/30/2018 Status: F Source: RIGOB[place]O 1:34 PM [facility] Order Comment: DR SCHMIDT ORDERED VITD [...] (>250 nmol/L) Performed By: #### L506.1000 #### [facility] [address] [place], [place], [id number] COMPREHENSIVE METABOLIC Collected: 04/30/2018 Status: F Source: [facility] 1:34 PM [facility] Order Comment: DR SCHMIDT ORDERED VITD [...] 11 Performed By: #### L500.4050, L501.9520 #### [facility] [address] [place], [address] THYROID STIM HORMONE Collected: 04/30/2018 Status: F Source: [place] (TSH) 1:34 PM [facility] Order Comment: DR SCHMIDT ORDERED VITD CBCD CMP TSH DR BERGER ORDERED PT PTT DR ULLOA ORDERED CBC TSHReason for Laboratory Test PRE OP TYPE CODE TESTS RESULT OUT OF RANGE REFERENCE UNITS LAB L501.9520 0.358-3.74 uIU/mL Normal TSH 1.73 Performed By: #### L500.4050, L501.9520 #### [facility] [address] [place], [place], [address] CBC W/DIFF, AUTOMATED Collected: 04/30/2018 Status: F Source: [place] 1:34 PM [facility] Order Comment: Reason for Laboratory Test [...] Normal 1+ Performed By: #### L100.0100 #### [facility] [address] [place], [address] PROTHROMBIN TIME W/INR Collected: 04/30/2018 Status: F Source: [place] 1:34 PM [facility] Order Comment: DR SCHMIDT ORDERED VITD CBCD CMP TSH DR BERGER ORDERED PT PTT DR ULLOA ORDERED CBC TSH TYPE CODE TESTS RESULT OUT OF RANGE REFERENCE UNITS LAB L300.4150 11.7-14.9 SECONDS Normal PROTIME 12.9 LAB L300.4200 Normal INR 1.0 Performed By: #### L300.3900, L300.4310 #### [facility] [address] [place], [address] PARTIAL THROMBOPLAST Collected: 04/30/2018 Status: F Source: RIGOBERTO TIME 1:34 PM [facility] Order Comment: DR SCHMIDT ORDERED VITD CBCD CMP TSH DR BERGER ORDERED PT PTT DR ULLOA ORDERED CBC TSH TYPE CODE TESTS RESULT OUT OF RANGE REFERENCE UNITS LAB L300.4310 24.1-36.2 Seconds Normal PTT 35.3 Performed By: #### L300.3900, L300.4310 #### [facility] [address] [place], [address] ECHOCARDIOGRAM COMPLETE Observed: 04/22/2018 Status: F Source: [place] 5:32 PM [facility] Cardiovascular Services [address] [place] [address] Echo Complete 04/22/18 1352 MR#: [id number] Acct: [id number] Name: CHARISSA GUNTER Rep #: [id number] : 1950 67 From: Mitchell Henderson MD Attending Dr: Mitchell Henderson MD Status: REG CLI Ordering Dr: Mitchell Henderson MD Date: 04/22/18 Location: [facility] Sex: F C Admitted: [...] Dictated: 04/22/18 1352 Date Transcribed: 04/22/18 173 Portable Router Operator: Signed HISTORY AND PHYSICAL Observed: 04/20/2018 Status: F Source: [place] EXAM 6:57 PM [facility] Medical Records Department [address] [place] [address] History and Physical 04/15/188 MR#: [id number] Acct: [id number] Name: CHARISSA GUNTER Rep #: [id number] : 1950 67 From: Regino Hansen MD PCP: Chema Schmidt MD, Chi Status: PRE [facility] Y Location: [facility] History and Physical Date of Admission: 04/16/18 [...] antibiotics. She was recently [place]. I was asked to evaluate her sacral [...] CARDIOLOGY VISIT Observed: 04/19/2018 Status: F Source: [place] REPORT 3:14 PM [facility] [address] [facility] [place] [address] OFFICE VISIT Date of Service: 04/19/18 MR#: [id number] Acct: [id number] Name: CHARISSA GUNTER Rep #: [id number] : 1950 Provider: Mitchell Henderson MD Age/Sex: 67/F Location: [facility] Status: Signed HPI HPI Chief Complaint: Follow [...] mg PO DAILY 04/19/18 [History Confirmed 04/19/18] [facility] Medical History Secondary pulmonary arterial hypertension (Chronic) [...] LEAD ELECTROCARDIOGRAM Observed: 04/15/2018 Status: F Source: [place] 2:34 PM [facility] Cardiovascular Services [address] [place] [address] 12 Lead EKG 04/11/18 1322 MR#: [id number] Acct: [id number] Name: CHARISSA GUNTER Rep #: [id number] : 1950 67 From: Micheal Coffey MD Attending Dr: Regino Hanesn MD Status: PRE SDC Ordering Dr: Regino Hansen MD Date: 04/11/18 Location: [facility] Sex: F C Admitted: Test Reason : PREOP Blood Pressure : / mmHG Vent. Rate : 090 BPM Atrial Rate : 090 BPM P-R Int : 150 ms QRS Dur : 070 ms QT Int : 360 ms P-R-T Axes : 078 -17 062 degrees QTc Int : 440 ms Normal sinus rhythm Possible Left atrial enlargement Borderline ECG Confirmed by MICHEAL COFFEY ([id number]), tape editor SARAH PANDA ([id number]) on 04/15/2018 2:33:28 PM Referred By: Regino Hansen Confirmed By:MICHEAL COFFEY 04/15/18 1433 Date Micheal Coffey MD CC: Regino Hansen MD; Chema Schmidt MD Signed CBC-COMPLETE BLOOD CNT Collected: 04/11/2018 Status: F Source: [place]ERT[place] NO DIFF 12:59 PM [facility] TYPE [...] 9.2 Performed By: #### L100.0500, L100.4500 #### [facility] [address] [place], [address] DIFFERENTIAL COMMENT Collected: 04/11/2018 Status: F Source: RIGOBERTO 12:59 PM [facility] TYPE CODE TESTS RESULT OUT OF RANGE REFERENCE UNITS LAB L100.4500 Normal SMEAR COMMENT SCANNED Result Comment: 1+ HYPOCHROMIA 1+ MICROCYTES Performed By: #### L100.0500, L100.4500 #### [facility] [address] [facility] [place], [address] THYROID STIM HORMONE Collected: 04/11/2018 Status: F Source: RIGOBERTO (TSH) 12:59 PM [facility] TYPE CODE TESTS RESULT OUT OF RANGE REFERENCE UNITS LAB L501.9520 0.358-3.74 uIU/mL Normal TSH 1.69 Performed By: #### L501.9520 #### [facility] [address] [facility] [place], [place], [address] Observed: 03/06/2018 Status: F Source: RIGOBERTO CULTURE, DEEP WOUND 9:35 AM [facility] Gram Stain Gram Stain 1+ Red [...] 1 S (NF) indicates non-formulary drug at [facility]. Approval by Infectious Disease Specialist required before non-formulary drugs may be ordered and/or dispensed. * CLSI guidelines does not recommend testing of cephalosporins. This interpretation is deduced from Beta-lactam/penicillin results. Cult, Anaerobic No anaerobic bacteria isolated. Performed By: #### M100.1500 #### [facility] [address] [facility] [place], [place], [address] Observed: 01/02/2018 Status: F Source: RIGOBERTO CULTURE, DEEP WOUND 12:25 PM [facility] Comments: SACRAL ULCER Gram Stain Gram [...] <=0.5 S (NF) indicates non-formulary drug at [facility]. Approval by Infectious Disease Specialist required before non-formulary drugs may be ordered and/or dispensed. * CLSI guidelines does not recommend testing of cephalosporins. This interpretation is deduced from Beta-lactam/penicillin results. Cult, Anaerobic No anaerobic bacteria isolated. Performed By: #### M100.1500 #### [facility] [address] [facility] 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 Surgery was in 10 December. Status post surgery she had been in a [place]. She has had routine dressings to her [...] was performed on April 12, 2017, at [facility]. Allergies/Adverse Reactions: Allergies bee venom protein [...] Date Recorded By Document 12/26/17 11:41 RB [id number] 12/26/17 12:08 RB Wound Center Nurse 1 [Ulcer Assessment] #6 lower mid abd -Combined with other wound No 12/26/17 12:06 Wound Center by Miriam Rawls 3 sites from laproscopic surgery is well approximated Initialized on 12/26/17 12:06 - END OF NOTE WC - Nurse 2 - General Ulcer CM Notes Start: 12/26/17 11:35 Freq: Status: Active Protocol: Activity Type Activity Date Activity User E-Sign Co-Sign Detail Recorded Client Recorded Date Recorded By Document 12/26/17 12:34 CS [id number] 12/26/17 12:43 CS Wound Center Nurse 2 Musculoskeletal: No Muscle Wasting Neurological: Cranial nerves II-XII grossly intact Psych/Mental Status: Normal Affect Debridement Note Post-Debridement Measurements/Treatment WC - Nurse 2 - General Ulcer CM Notes Start: 12/26/17 11:35 Freq: Status: Active Protocol: Activity Type Activity Date Activity User E-Sign Co-Sign Detail Recorded Client Recorded Date Recorded By Document 12/26/17 12:34 [id number] 12/26/17 12:43 CS Wound Center Nurse 2 [...] or concerns. This note was generated with [employer] software. It may contain incorrect words, spelling, and punctuation that were not noted in checking the note before signing. 12/31/17 1620 <Electronically signed by Brant Santiago MD> Date Brant Santiago MD CC: Signed WOUND CTR HISTORY Observed: 12/31/2017 Status: F Source: RIGOBERTO AND PHYSICAL 1:45 AM [facility] [address] [place] [address] Wound Ctr History AND Physical 08/06/172229 MR#: [id number] Acct: [id number] Name: CHARISSA GUNTER Rep #: [id number] : 1950 67 From: Regino Hansen MD PCP: Daniel MELISSA,Chema Gil Status: DIS RCR Y Location: History of Present Illness Date of Service: 08/06/17 - WOUND CENTER CONSULT REFERRING PHYSICIAN: Dr. Santiago. AIRCRAFT RIVETER: Dr. Hansen. Chief Complaint: Stage IV sacral [...] was performed on April 12, 2017, at [facility]. Allergies/Adverse Reactions: Allergies bee venom protein [...] Recorded Date Recorded By Document 08/06/17 11:28 [facility] [id number] 08/06/17 11:43 [facility] Wound Center Nurse 1 [Ulcer Assessment] #3 sacrum -Combined with other wound No WC - Nurse 2 - General Ulcer CM Notes Start: 08/02/17 11:31 Freq: Status: Active Protocol: Activity Type Activity Date Activity User E-Sign Co-Sign Detail Recorded Client Recorded Date Recorded By Document 08/06/17 12:06 [id number] 08/06/17 12:22 Wound Center Nurse 2 [Procedure/Treatment] -Correct Patient No Debridement Note Post-Debridement Measurements/Treatment WC - Nurse [...] 1 week. This note was generated with [employer] software. It may contain incorrect words, spelling, and punctuation that were not noted in checking the note before signing. 12/31/17 0145 <Electronically signed by Regino Hansen MD> Date Regino Hansen MD CC: Signed HEMOGRAM (CBC AND Collected: 12/14/2017 Status: F Source: [facility] PLATELET) 1:45 AM [facility] REPOSITORY TYPE CODE TESTS RESULT OUT OF [...] #### HEMOGC, CA, CHM7, IPB, MGO #### [facility] [address] [place] [address] [place] [address] [place] [address] CALCIUM Collected: 12/14/2017 Status: F Source: [facility] 1:45 AM [facility] REPOSITORY TYPE CODE TESTS RESULT OUT OF REFERENCE UNITS RANGE LAB CA 8.6-10.5 mg/dL Calcium 9.2 Performed By: #### HEMOGC, CA, CHM7, IPB, MGO #### [facility] [address] [place] [address] [facility] [address] [place] [address] CHEM 7 Collected: 12/14/2017 Status: F Source: [facility] 1:45 AM [facility] REPOSITORY TYPE CODE TESTS RESULT OUT OF [...] GFR >60 mL/min/1.73 sqM Est GFR,non >60 Gu[place]ian LAB GFRA >60 mL/min/1.73 sqM Est GFR, >60 Performed By: #### HEMOGC, CA, CHM7, IPB, MGO #### [facility] [address] [address] INORGANIC PHOSPHATE Collected: 12/14/2017 Status: F Source: [facility] 1:45 AM [facility] REPOSITORY TYPE CODE TESTS RESULT OUT OF REFERENCE UNITS RANGE LAB IP 2.2-4.6 mg/dL Inorg Phosphate 3.9 Performed By: #### HEMOGC, CA, CHM7, IPB, MGO #### [facility] [address] [address] MAGNESIUM Collected: 12/14/2017 Status: F Source: [facility] 1:45 [facility] REPOSITORY TYPE CODE TESTS RESULT OUT OF REFERENCE UNITS RANGE LAB MG 1.6-2.6 mg/dL Magnesium 1.8 Performed By: #### HEMOGC, CA, CHM7, IPB, MGO #### [facility] [address] [address] HEMOGRAM (CBC AND Collected: 12/13/2017 Status: F Source: [facility]) 3:27 AM [facility] REPOSITORY TYPE CODE TESTS RESULT OUT OF [...] HEMOGC, CA, CHM7, IPB, MGO #### [facility] [address] [address] CALCIUM Collected: 12/13/2017 Status: F Source: [facility] 3:27 AM [facility] REPOSITORY TYPE CODE TESTS RESULT OUT OF REFERENCE UNITS RANGE LAB CA 8.6-10.5 mg/dL Calcium 8.8 Performed By: #### HEMOGC, CA, CHM7, IPB, MGO #### [facility] [address] [place] [address] [place] [address] CHEM 7 Collected: 12/13/2017 Status: F Source: [facility] 3:27 AM [facility] REPOSITORY TYPE CODE TESTS RESULT OUT OF [...] GFR >60 mL/min/1.73 sqM Est GFR,non >60 [place] LAB GFRA >60 mL/min/1.73 sqM Est GFR, >60 Performed By: #### HEMOGC, CA, CHM7, IPB, MGO #### [facility] [address] [place] [address] [place] [address] INORGANIC PHOSPHATE Collected: 12/13/2017 Status: F Source: [facility] 3:27 AM [facility] REPOSITORY TYPE CODE TESTS RESULT OUT OF REFERENCE UNITS RANGE LAB IP 2.2-4.6 mg/dL Inorg Phosphate 3.3 Performed By: #### HEMOGC, CA, CHM7, IPB, MGO #### [facility] [address] [place] [address] [place] [address] MAGNESIUM Collected: 12/13/2017 Status: F Source: [facility] 3:27 AM [facility] REPOSITORY TYPE CODE TESTS RESULT OUT OF REFERENCE UNITS RANGE LAB MG 1.6-2.6 mg/dL Magnesium 1.9 Performed By: #### HEMOGC, CA, CHM7, IPB, MGO #### [facility] [address] [place] [address] [address] HEMOGRAM (CBC AND Collected: 12/12/2017 Status: F Source: [facility]) 1:53 AM [facility] REPOSITORY TYPE CODE TESTS RESULT OUT OF [...] WBC NUCLEATED RBC 0.0 Performed By: #### HEMPAULC, CA, CHM7, IPB, MGO #### [facility] [address] [place] [address] CALCIUM Collected: 12/12/2017 Status: F Source: [facility] 1:53 [facility] REPOSITORY TYPE CODE TESTS RESULT OUT OF REFERENCE UNITS RANGE LAB CA 8.6-10.5 mg/dL Low Calcium 8.5 Performed By: #### HEMDAYNE CA, CHM7, IPB, MGO #### [facility] [address] [place] [address] CHEM 7 Collected: 12/12/2017 Status: F Source: [facility] 1:53 [facility] REPOSITORY TYPE CODE TESTS RESULT OUT OF [...] GFR >60 mL/min/1.73 sqM Est GFR,non >60 [place] LAB GFRA >60 mL/min/1.73 sqM Est GFR, >60 Performed By: #### HEMOGC, CA, CHM7, IPB, MGO #### [facility] [address] [place] [address] [facility] [address] [place] [address] INORGANIC PHOSPHATE Collected: 12/12/2017 Status: F Source: [facility] 1:53 AM [facility] REPOSITORY TYPE CODE TESTS RESULT OUT OF REFERENCE UNITS RANGE LAB IP 2.2-4.6 mg/dL Inorg Phosphate 2.4 Performed By: #### HEMOGC, CA, CHM7, IPB, MGO #### [facility] [address] [place] [address] [facility] [address] [place] [address] MAGNESIUM Collected: 12/12/2017 Status: F Source: [facility] 1:53 AM [facility] REPOSITORY TYPE CODE TESTS RESULT OUT OF REFERENCE UNITS RANGE LAB MG 1.6-2.6 mg/dL Magnesium 2.1 Performed By: #### HEMOGC, CA, CHM7, IPB, MGO #### [facility] [address] [place] [address] [facility] [address] [place] [address] HEMOGRAM (CBC AND Collected: 12/11/2017 Status: F Source: [facility]) 2:15 AM [facility] REPOSITORY TYPE CODE TESTS RESULT OUT OF [...] #### HEMOGC, CA, CHM7, IPB, MGO #### [facility] [address] [place] [address] [place] [address] CALCIUM Collected: 12/11/2017 Status: F Source: [facility] 2:15 AM [facility] REPOSITORY TYPE CODE TESTS RESULT OUT OF REFERENCE UNITS RANGE LAB CA 8.6-10.5 mg/dL Calcium 8.7 Performed By: #### HEMOGC, CA, CHM7, IPB, MGO #### [facility] [address] [place] [address] [place] [address] CHEM 7 Collected: 12/11/2017 Status: F Source: [facility] 2:15 [facility] REPOSITORY TYPE CODE TESTS RESULT OUT OF [...] GFR >60 mL/min/1.73 sqM Est GFR,non >60 [place] LAB GFRA >60 mL/min/1.73 sqM Est GFR, >60 Performed By: #### HEMOGC, CA, CHM7, IPB, MGO #### [facility] [address] [place] [address] [place] [address] INORGANIC PHOSPHATE Collected: 12/11/2017 Status: F Source: [facility] 2:15 AM [facility] REPOSITORY TYPE CODE TESTS RESULT OUT OF REFERENCE UNITS RANGE LAB IP 2.2-4.6 mg/dL Inorg Phosphate 3.6 Performed By: #### HEMOGC, CA, CHM7, IPB, MGO #### [facility] [address] [place] [address] [facility] [address] [place] [address] MAGNESIUM Collected: 12/11/2017 Status: F Source: [facility] 2:15 AM [facility] REPOSITORY TYPE CODE TESTS RESULT OUT OF REFERENCE UNITS RANGE LAB MG 1.6-2.6 mg/dL Low Magnesium 1.5 Performed By: #### HEMOGC, CA, CHM7, IPB, MGO #### [facility] [address] [place] [address] [place] [address] SURGICAL PATHOLOGY Observed: 12/10/2017 Status: F Source: [facility] 7:59 AM [facility] REPOSITORY Surgical Pathology Report Patient Name: CHARISSA GUNTER Med. Rec #: [id number] Submitting Physician: THO MCGINNIS --- Clinical History --- Preoperative Diagnosis: Colovaginal fistula. N82.4. Medical History: Colovaginal fistula, urinary tract infection, sacral wound. ---Final Pathologic Diagnosis--- A. Left Colon (Partial Colectomy): - Segment of colon with multiple diverticula, with foci of transmural acute and chronic inflammation granulation tissue formation and fibrosis. - Serosal adhesions. [id number]/MARINE:12/13/2017 Electronically Signed By Cari Munoz MD 12/13/2017 17:22:51 Professional Interpretation performed at location: [address] [place] [address] ---SPECIMEN(S) RECEIVED:--- SR A: Colon/Rectum, excision, not [...] not be present. Lab Use Only: JobID [id number] Gross description by: Leo Slater II Performed By: #### SURGP #### [place] [address] Observed: 11/26/2017 Status: F Source: [facility] TYPE AND CROSS - 3:15 PM [facility] PRE-OP [facility] REPOSITORY ABO/RH(D): A POSITIVE ANTIBODY SCREEN: NEGATIVE Performed By: #### XMPO #### [place] [address] CBC WITH DIFF Collected: 11/26/2017 Status: F Source: [facility] 2:44 PM [facility] REPOSITORY TYPE CODE TESTS RESULT OUT OF [...] Lymph 2.62 LAB AMONO 0.24-0.86 K/uL Abs Boyle 1.21 High LAB AEOS <0.37 K/uL Abs Eos 0.08 LAB ABASO <0.09 K/uL Abs Baso 0.06 Performed By: #### CBCDFM, CHM7C #### [place] [address] [address] [place] [address] #### FT4, TSH #### [facility] [address] [place] [address] [place] [address] CHEM 7 - [address] Collected: 11/26/2017 Status: F Source: [facility] LAB 2:44 PM [facility] REPOSITORY TYPE CODE TESTS RESULT OUT OF [...] GFR >60 mL/min/1.73 sqM Est GFR,non >60 [place] LAB GFRA >60 mL/min/1.73 sqM Est GFR, >60 LAB [facility] 278-305 mOsm/kg Osmolality 291 (Calc) Performed By: #### FLACO, PREETM7C #### [place] [address] #### FT4, TSH #### [facility] [address] 410 [place] [address] FREE T4 Collected: 11/26/2017 Status: F Source: [facility] 2:44 PM [facility] REPOSITORY TYPE CODE TESTS RESULT OUT OF RANGE REFERENCE UNITS LAB FT4 0.89-1.76 ng/dL Free T4 1.15 Performed By: #### PREET SAMM7C #### [place] [address] #### FT4, TSH #### [facility] [address] 410 [place] [address] TSH, HIGH SENSITIVITY Collected: 11/26/2017 Status: F Source: [facility] 2:44 PM [facility] REPOSITORY TYPE CODE TESTS RESULT OUT OF REFERENCE UNITS RANGE LAB TSH 0.550-4.780 uIU/mL TSH, High Sensitivity 1.622 Performed By: #### FLACO, PREETM7C #### [place] [address] #### FT4, TSH #### [facility] [address] 410 [place] [address] Observed: 11/21/2017 Status: F Source: [place] CULTURE, URINE 1:46 PM [facility] REPOSITORY Urine Culture ORGANISM 1: Presumptive E. coli [place] Count >100,000 Presumptive E. coli: REACTION Amoxacillin/Clavulanic [...] >=320 R (NF) indicates non-formulary drug at [facility]. Approval by Infectious Disease Specialist required before non-formulary drugs may be ordered and/or dispensed. Performed By: #### M100.0650 #### [facility] [address] [facility] [place], [place], [address] PROTHROMBIN TIME W/INR Collected: 11/21/2017 Status: F Source: [place] 1:37 PM [facility] REPOSITORY TYPE CODE TESTS RESULT OUT OF RANGE REFERENCE UNITS LAB L300.4150 11.7-14.9 SECONDS Normal PROTIME 13.3 LAB L300.4200 Normal INR 1.0 Performed By: #### L300.3900, L300.4310 #### [facility] [address] [facility] [address] [place], [place], [address] PARTIAL THROMBOPLAST Collected: 11/21/2017 Status: F Source: [place] TIME 1:37 PM [facility] REPOSITORY TYPE CODE TESTS RESULT OUT OF REFERENCE UNITS RANGE LAB L300.4310 24.1-36.2 Seconds High PTT 39.0 Performed By: #### L300.3900, L300.4310 #### [facility] [address] [address] [place], [address] CBC W/DIFF, AUTOMATED Collected: 10/22/2017 Status: F Source: [place] 12:07 PM [facility] REPOSITORY TYPE [...] Normal 2+ Performed By: #### L100.0100 #### [facility] [address] [place], [address] VITAMIN D,25 HYDROXY Collected: 10/22/2017 Status: F Source: [place] 12:07 PM [facility] REPOSITORY TYPE CODE TESTS RESULT OUT OF REFERENCE UNITS RANGE LAB L506.1000 29.95-100.01 ng/mL Low Vitamin D 27.9 25-OH Result Comment: Vitamin D 25(OH) Status Range Deficiency <20 ng/mL (50nmol/L) Insuffciency 20 - 30 ng/mL (50 - 75 nmol/L) Sufficiency 30 - 100 ng/mL (75 - 250 nmol/L) Toxicity >100 ng/mL (>250 nmol/L) Performed By: #### L506.1000 #### [facility] [place], [address] COMPREHENSIVE METABOLIC Collected: 10/22/2017 Status: F Source: [facility] 12:07 PM [facility] REPOSITORY TYPE [...] 7 Performed By: #### L500.4050, L501.9520 #### [facility] [address] [place], [address] THYROID STIM HORMONE Collected: 10/22/2017 Status: F Source: [place] (TSH) 12:07 PM [facility] REPOSITORY TYPE CODE TESTS RESULT OUT OF RANGE REFERENCE UNITS LAB L501.9520 0.358-3.74 uIU/mL Normal TSH 1.24 Performed By: #### L500.4050, L501.9520 #### [facility] [address] [facility] [place], [address] Observed: 09/06/2017 Status: F Source: [place] CULTURE, URINE 1:07 PM [facility] REPOSITORY Urine Culture ORGANISM 1: Presumptive E. coli [place] Count >100,000 Presumptive E. coli: REACTION Amoxacillin/Clavulanic [...] >=320 R (NF) indicates non-formulary drug at [facility]. Approval by Infectious Disease Specialist required before non-formulary drugs may be ordered and/or dispensed. Performed By: #### M100.0650 #### [facility] [address] [place], [address] CAROTID DUPLEX Observed: 08/27/2017 Status: F Source: [place] ULTRASOUND 4:03 PM [facility] REPOSITORY [facility] Cardiovascular Services [address] [place] [address] [place] [address] Carotid Duplex Ultrasound 08/27/17 1301 MR#: [id number] Acct: [id number] Name: CHARISSA GUNTER Rep #: [id number] : 1950 67 From: Jessica Terrazas MD [...] the left vertebral artery. Procedure Carotid Duplex 72320. The exam was diagnostic. Exam performed in department. Interpretation Summary Minimal plague at the proximal right internal carotid with <50% stenosis. Normal flow right external carotid Minimal irregular plague at the proximal left internal carotid with <50% stenosis. Normal flow left external carotid Patent and antegrade vertebrals bilaterally. Ordering Physician: Jessica Terrazas Referring Physician: Chema Schmidt Chi Performed By: Jana Arriaga RDCS, RVT 08/27/17 1602 Date Jessica Terrazas MD CC: Jessica Terrazas MD; Chema Schmidt MD Date Dictated: 08/27/17 1301 Date Transcribed: 08/27/17 160 Portable Router Operator: Signed OPERATIVE REPORT Observed: 08/21/2017 Status: F Source: [place] 6:51 AM [facility] Medical Records Department [address] [place] [address] Operative Report 08/21/17 0644 MR#: [id number] Acct: [id number] Name: CHARISSA GUNTER Rep #: [id number] : 1950 67 From: Jessica Terrazas MD PCP: Chema Schmidt MD, Chi Status: [facility] Y Location: [place] [address] Problem List (1) Colovaginal fistula Status: Acute [...] VISIT REPORT Observed: 08/09/2017 Status: F Source: [place] 6:43 PM [facility] [address] [facility] [address] [place] [address] OFFICE VISIT Date of Service: 08/09/17 MR#: [id number] Acct: [id number] Name: CHARISSA GUNTER Rep #: [id number] : 1950 Provider: Jessica Terrazas MD Age/Sex: 67/F Location: [facility] Status: Signed with Addenda ADDENDUM by Jessica [...] Consult Fistula Chief Complaint: possible colovaginal fistula Stores Laborer Required: No Is patient in pain?: No [...] still potentially pending other evaluation. 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 N82.9 08/09/17 1842 <Electronically signed by Jessica Terrazas MD> Date Jessica Terrazas MD Cosigner Signature: Date (if applicable) CC: Regino Hansen MD; Chema Schmidt MD ABDOMEN/PELVIS WITH Observed: 08/09/2017 Status: F Source: [place] CONTRAST 1:28 PM [facility] REPOSITORY [facility] Imaging Services [address] [place] [address] Abdomen/Pelvis WITH Contrast MR#: [id number] Acct: [id number] Name: CHARISSA GUNTER Rep #: [id number] : 1950 F 67 From: Dean Roman MD PCP: Daniel MELISSA,Chema [employer] Status: REG CLI Study: Abdomen/Pelvis WITH Contrast Date of Exam: 08/09/17 Exam# [id number] Ordering Dr: Jessica Terrazas MD STUDY: CT [...] CC: Jessica Terrazas MD; Chema Schmidt MD Portable Router Operator: Signed URINALYSIS, COMPLETE Collected: 08/09/2017 Status: F Source: [place] 8:35 AM [facility] REPOSITORY Order Comment: How was Urine Obtained? [...] MUCUS, URINE Performed By: #### L400.0001 #### [facility] [address] [place], [address] Observed: 08/02/2017 Status: F Source: [place] CULTURE, GENITAL 5:37 PM [facility] COMPREHENSIVE REPOSITORY Gram Stain Gram Stain No Gram negative diplococci 1+ Gram negative rods 2+ Gram positive cocci No Yeast Like Organisms 3+ Epithelial cells 2+ White Blood Cells Gent Cult Comp No yeast, Gardnerella, Neisseria or beta-hemolytic Streptococcus isolated. ORGANISM 1: GPC Poss Enterococcus sp Amount Growth 2+ Performed By: #### M100.1600 #### [facility] [address] [place], [address] HOSPITAL LIAISON OFFICE VISIT Observed: 08/02/2017 Status: F Source: [place] REPORT 2:32 PM [facility] REPOSITORY [facility] [address] [place] [address] OFFICE VISIT Date of Service: 08/02/17 MR#: [id number] Acct: [id number] Name: CHARISSA GUNTER Rep #: [id number] : 1950 Provider: ROXI Baez Age/Sex: 67/F Location: [facility] Status: Signed Intake Vital Signs08/02/17 Height 5 ft 4 in 08/02/17 Weight: 210 lb 08/02/17 Body Mass Index (BMI) 36.0 08/02/17 Blood Pressure 125/77 Intake Visit Reasons: DISCHARGE Chief Complaint: Discharge Stores Laborer Required: No Is patient in pain?: No [...] N89.8 08/02/17 1432 <Electronically signed by Nova PADILLA> Date Nova PADILLA Cosigner Signature: Date (if applicable) CC: Observed: 08/02/2017 Status: F Source: [place] CULTURE, DEEP WOUND 12:15 PM [facility] REPOSITORY Comments: SACRUM ULCER Gram Stain Gram [...] 1 S (NF) indicates non-formulary drug at [facility]. Approval by Infectious Disease Specialist required [...] Anaerobic cocci Performed By: #### M100.1500 #### [facility] [address] [place], [address] COMPREHENSIVE METABOLIC Collected: 07/24/2017 Status: F Source: [facility] 1:49 PM [facility] REPOSITORY TYPE [...] Performed By: #### L500.4050, L500.4100, L501.9520 #### [facility] [address] [place], [address] LIPID PROFILE Collected: 07/24/2017 Status: F Source: [place] 1:49 PM [facility] REPOSITORY TYPE [...] Performed By: #### L500.4050, L500.4100, L501.9520 #### [facility] [address] [place], [place], [address] THYROID STIM HORMONE Collected: 07/24/2017 Status: F Source: [place] (TSH) 1:49 PM [facility] REPOSITORY TYPE CODE TESTS RESULT OUT OF RANGE REFERENCE UNITS LAB L501.9520 0.358-3.74 uIU/mL Normal TSH 1.28 Performed By: #### L500.4050, L500.4100, L501.9520 #### [facility] [address] [place], [place], [address] CBC W/DIFF, AUTOMATED Collected: 07/24/2017 Status: F Source: [place] 1:49 PM [facility] REPOSITORY TYPE [...] Normal 2+ Performed By: #### L100.0100 #### [facility] [address] [place], [address] VITAMIN D,25 HYDROXY Collected: 07/24/2017 Status: F Source: [place] 1:49 PM [facility] REPOSITORY TYPE CODE TESTS RESULT OUT OF REFERENCE UNITS RANGE LAB L506.1000 19.95-100.01 ng/mL Low Vitamin D 18.7 25-OH Result Comment: Vitamin D 25(OH) Status Range Deficiency <20 ng/mL (50nmol/L) Insuffciency 20 - 30 ng/mL (50 - 75 nmol/L) Sufficiency 30 - 100 ng/mL (75 - 250 nmol/L) Toxicity >100 ng/mL (>250 nmol/L) Performed By: #### L506.1000 #### [facility] [address] [address] [place], [address] Observed: 07/24/2017 Status: F Source: [place] CULTURE, URINE 1:49 PM [facility] REPOSITORY Urine Culture ORGANISM 1: Presumptive E. coli [place] Count >100,000 Presumptive E. coli: REACTION Amoxacillin/Clavulanic [...] >=320 R (NF) indicates non-formulary drug at [facility]. Approval by Infectious Disease Specialist required before non-formulary drugs may be ordered and/or dispensed. Performed By: #### M100.0650 #### [facility] [address] [place], [address] WOUND CTR HISTORY Observed: 07/06/2017 Status: F Source: [facility] AND PHYSICAL 5:17 PM [facility] REPOSITORY [facility] [address] [place] [address] Wound Ctr History AND Physical 07/05/17 1653 MR#: [id number] Acct: [id number] Name: CHARISSA GUNTER Rep #: [id number] : 1950 67 From: Brant Santiago MD [...] was performed on April 12, 2017, at [facility]. Allergies/Adverse Reactions: Allergies bee venom protein [...] Date Recorded By Document 07/05/17 09:26 MW [id number] 07/05/17 09:36 MW Wound Center Nurse 1 [Ulcer Assessment Protocol: WC.WD.LOC] #3 sacrum -Combined with other wound No WC - Nurse 2 - General Ulcer CM Notes Start: 07/05/17 09:25 Freq: Status: Active Protocol: Activity Type Activity Date Activity User E-Sign Co-Sign Detail Recorded Client Recorded Date Recorded By Document 07/05/17 09:52 DV [id number] 07/05/17 10:09 DV Wound Center Nurse 2 [...] Date Recorded By Document 07/05/17 09:52 DV [id number] 07/05/17 10:09 DV Wound debrided: Sacral ulcer [...] 1 week. This note was generated with [email or web address] dictation software. It may contain incorrect words, spelling, and punctuation that were not noted in checking the note before signing. 07/06/17 1717 <Electronically signed by Brant Santiago MD> Date Brant Santiago MD CC: Signed Observed: 07/05/2017 Status: F Source: [place] CULTURE, DEEP WOUND 10:00 AM [facility] REPOS[facility]ORY Comments: RIGHT HEEL ULCER Gram Stain [...] 1 S (NF) indicates non-formulary drug at [facility]. Approval by Infectious Disease Specialist required [...] Anaerobic cocci Performed By: #### M100.1500 #### [facility] [address] [place], [address] ALLERGIES ALLERGIES DATE TYPE / CODE NAME / CODE REACTION SEVERITY SOURCE 04/19/2018 Drug metaxalone/F00 Swelling Unknown [facility] Allergy/127 [id number]([facility] 328725(SNOM ) Repository ED CT) 04/19/2018 Drug bee venom Angioedema Unknown [facility] Allergy/416 protein ([facility] 834057([facility] bee)/[id number] Repository ED CT) 5(RXNORM) ENCOUNTERS ENCOUNTERS ADMIT/DISCHARGE ACCOUNT NUMBER ADMITTING ENCOUNTER LOCATION SOURCE CLASS 06/10/2018 [id number] Ambulatory [facility] ding: Repository 06/01/2018 [id number] Chema Schmidt Inpatient [place] Chi Encounter [facility] ding:TCURoom Repository : KAE50Qmh: 1 06/01/2018 [id number] Chema Schmidt Ambulatory BMSBuilding: [place] Chi BMS.CF.[facility] Repository 05/29/2018/06/01/20 [id number] Regino Hansen Inpatient [place] 18 Encounter [facility] ding:YZ4Ejtp Repository : AN281Ezn: 1 05/29/2018 [id number] Regino Hansen Ambulatory BMSBuilding: [place] BMS.CF.[facility] Repository 05/29/2018 [id number] Regino Hansen Ambulatory BMSBuilding: [place] BMS.[facility] Repository 05/29/2018 [id number] Regino Hansen Ambulatory BMSBuilding: [place] BMS.[facility] Repository 05/29/2018 [id number] Regino Hansen [facility] [place] [facility] 05/29/2018/06/03/20 [id number] Ambulatory [address] ding:WC Repository 05/22/2018 [id number] [facility] 05/15/2018 [id number] Regino Hansen Ambulatory BMSBuilding: [place] BMS.[facility] Repository 05/15/2018 [id number] Regino Hansen Ambulatory BMSBuilding: [place] BMS.[facility] Repository 05/15/2018 [id number] Regino Hansen Ambulatory BMSBuilding: [place] BMS.[facility] Repository 05/15/2018 [id number] Regino Hansen Ambulatory BMSBuilding: [place] BMS.[facility] Repository 05/15/2018 [id number] Regino Hansen Ambulatory BMSBuilding: [place] BMS.[facility] Repository 05/15/2018 [id number] Regino Hansen Ambulatory BMSBuilding: [place] BMS.[facility] Repository 05/15/2018/05/17/20 [id number] Regino Hansen Inpatient [address] ding:CA1Oafg Repository : JD835Prm: 1 05/14/2018 [id number] Ambulatory BMSBuilding: [facility] Repository 05/08/2018 [id number] Ambulatory [facility] ding:PT Repository 05/01/2018 [id number] Ambulatory BMSBuilding: [facility] Repository 05/01/2018/05/03/20 [id number] Ambulatory [address] ding:WC Repository 04/30/2018 [id number] Ambulatory [facility] ding:RAD Repository 04/24/2018 [id number] Ambulatory BMSBuilding: [facility] Repository 04/22/2018 [id number] Ambulatory BMSBuilding: [place] BMS.CF.[facility] Repository 04/22/2018 [id number] Ambulatory [facility] Hospital ding:CVS Repository 04/19/2018/04/19/20 [id number] Ambulatory BMSBuilding: [place] 18 BMS.[facility] Repository 04/16/2018 [id number] Ambulatory [facility] ding:SDC Repository 04/15/2018 [id number] Ambulatory BMSBuilding: [place] BMS.CF.[facility] Repository 04/10/2018 [id number] Ambulatory BMSBuilding: [facility] Repository 04/03/2018/04/03/20 [id number] Ambulatory [address] ding:WC Repository 04/03/2018 [id number] Ambulatory BMSBuilding: [facility] Repository 03/28/2018 [id number] Ambulatory [facility] ding:LAB.FUT Repository URE 03/27/2018 [id number] Ambulatory BMSBuilding: [facility] Repository 03/20/2018 [id number] Ambulatory BMSBuilding: [facility] Repository 03/11/2018 [id number] Ambulatory BMSBuilding: [place] BMS.CF.[facility] Repository 03/06/2018 [id number] Ambulatory BMSBuilding: [facility] Repository 02/27/2018/03/03/20 [id number] Ambulatory [address] ding:WC Repository 02/27/2018 [id number] Ambulatory BMSBuilding: [facility] Repository 02/20/2018 [id number] Ambulatory BMSBuilding: [facility] Repository 02/19/2018 [id number] Ambulatory Building:[facility] Repository 02/13/2018 [id number] Ambulatory BMSBuilding: [facility] Repository 02/06/2018 [id number] Ambulatory BMSBuilding: [facility] Repository 01/31/2018 [id number] Ambulatory [facility] ding:LAB.FUT Repository URE 01/30/2018/02/02/20 [id number] Ambulatory [address] ding: Repository 01/30/2018 [id number] Ambulatory BMSBuilding: [facility] Repository 01/23/2018 [id number] Ambulatory BMSBuilding: [facility] Repository 01/16/2018 [id number] Ambulatory BMSBuilding: [facility] Repository 01/15/2018 [id number] Ambulatory Building:[facility] Repository 01/09/2018 [id number] Ambulatory BMSBuilding: [facility] Repository 01/02/2018 [id number] Ambulatory BMSBuilding: [facility] Repository 12/26/2017/01/02/20 [id number] Ambulatory [address] ding: Repository 12/26/2017 [id number] Ambulatory BMSBuilding: [facility] Repository 12/10/2017/12/15/19 [id number] RAS, Inpatient Building:[address] [address] THO [facility]: [address]: [facility] Repository 11/26/2017 [id number] [facility] 11/26/2017 [id number] Ambulatory Building:[facility] Repository 11/21/2017/12/02/19 [id number] Ambulatory [address] ding:WC Repository 11/14/2017 [id number] Ambulatory BMSBuilding: [facility] Repository 11/07/2017 [id number] Ambulatory BMSBuilding: [facility] Repository 10/31/2017/11/02/19 [id number] Ambulatory [address] ding: Repository 10/31/2017 [id number] Ambulatory BMSBuilding: [facility] Repository 10/24/2017 [id number] Ambulatory BMSBuilding: [facility] Repository 10/24/2017 [id number] Ambulatory BMSBuilding: [facility] Repository 10/23/2017 [id number] Ambulatory Building:[facility] Repository 10/22/2017 [id number] Ambulatory [facility] ding:POLAB3 Repository 10/17/2017 [id number] Ambulatory BMSBuilding: [facility] Repository 10/11/2017 [id number] Ambulatory BMSBuilding: [facility] Repository 10/04/2017 [id number] Ambulatory BMSBuilding: [facility] Repository 09/27/2017/10/02/19 [id number] Ambulatory [address] Hospital ding:WC Repository 09/27/2017 [id number] Ambulatory BMSBuilding: [facility] Repository 09/20/2017 [id number] Ambulatory BMSBuilding: [facility] Repository 09/06/2017 [id number] Ambulatory BMSBuilding: [facility] Repository 08/29/2017/09/02/19 [id number] Ambulatory [address] Hospital ding:WC Repository 08/29/2017 [id number] Ambulatory BMSBuilding: [facility] Repository 08/27/2017 [id number] Ambulatory [facility] Hospital ding:CVS Repository 08/27/2017 [id number] Ambulatory BMSBuilding: [place] BMS.CF.[facility] Repository 08/23/2017 [id number] [facility] Repository 08/21/2017/08/22/19 [id number] [facility]ulatory [address] [facility]EN Repository 08/21/2017 [id number] Ambulatory BMSBuilding: [place] BMS.CF.[facility] Repository 08/19/2017 [id number] Ambulatory [facility] Repository 08/16/2017 [id number] Ambulatory [facility] Repository 08/09/2017 [id number] Ambulatory [facility] ding:CT Repository 08/09/2017 [id number] Ambulatory Building:[facility] Repository 08/09/2017 [id number] Ambulatory [facility] ding:LABSPEC Repository 08/09/2017/08/10/19 [id number] Ambulatory BMSBuilding: [place] 18 BMS.[facility] Repository 08/06/2017 [id number] Ambulatory BMSBuilding: [place] BMS.CF.[facility] Repository 08/02/2017 [id number] Ambulatory [facility] ding:LABSPEC Repository 08/02/2017/08/03/19 [id number] Ambulatory BMSBuilding: [place] 18 BMS.[facility] Repository 08/02/2017 [id number] Ambulatory BMSBuilding: [facility] Repository 07/26/2017/08/01/19 [id number] Ambulatory [address] ding:WC Repository 07/26/2017 [id number] Ambulatory BMSBuilding: [facility] Repository 07/24/2017 [id number] Ambulatory [facility] ding:POLAB3 Repository 07/19/2017 [id number] Ambulatory BMSBuilding: [facility] Repository 07/12/2017 [id number] Ambulatory BMSBuilding: [facility] Repository 07/05/2017 [id number] Ambulatory BMSBuilding: [facility] Repository PAYERS PAYERS ENCOUNTER GUARANTOR PAYER SUBSCRIBER SOURCE 06/10/2018 CHARISSA K Primary CHARISSA K [place] [id number] Insurance[facility] PART A BPolicy [id number] Number: Repository [address]Bhe: 330 [id number] [phone] () Date:2017-07-05 06/10/2018 Secondary CHARISSA K [place] [facility] Number: [id number] Hospital [id number] Repository Date:4984-21-53[address], [place] [address]MW: 06/10/2018 Tertiary NOT GIVENUNK [place] Insurance:SELF PAY [facility]: Effective Repository Date:2018-06-04 06/01/2018 CHARISSA K Primary CHARISSA K [place] [id number] Insurance:MEDICARE [place]: [place] [facility] [id number] [place] Number: Repository [id number]: 330 [id number] [phone] (HP) Date:2018-06-01 06/01/2018 Secondary CHARISSA K [place] Insurance:AARPPolicy [place]DOB: Community Number: [id number] Hospital [id number] Repository Date:3664-35-00TH [facility] [address], [place] [address]QV: 06/01/2018 Tertiary NOT GIVENUNK [place] Insurance:SELF PAY [facility] Number: Effective Repository Date:2018-06-01 06/01/2018 CHARISSA K Primary CHARISSA K [place] [id number] Insurance:MEDICARE [place]OB: Community [place] [facility] [id number] Number: Repository [id number]: 330 [id number] [phone] (HP) Date:2018-06-01 06/01/2018 Secondary CHARISSA K [place] Insurance:AARPPolicy [place]DOB: Community Number: [id number] Hospital [id number] Repository Date:7536-11-57QK [facility] 606355ZIGNBQO, [place] [address]FG: 06/01/2018 Tertiary NOT GIVENUNK [place] Insurance:SELF PAY [facility] Number: Effective Repository Date:2018-06-01 05/29/2018 CHARISSA K Primary CHARISSA K [place] [id number] Insurance:MEDICARE [place]OB: Community [place] [facility] [id number] [place] Number: Repository [address]Dff: 330 [id number] [phone] (HP) Date:2018-05-29 05/29/2018 Secondary CHARISSA K [place] Insurance:AARPPolicy VITOMERYDOB: Community Number: [id number] Hospital [id number] Repository Date:6682-23-30SL [facility] [address]90[address]LSFYQMP, [place] [address]AJ: 05/29/2018 Tertiary NOT GIVENUNK [place] Insurance:SELF PAY [facility] Number: Effective Repository Date:2018-05-29 05/29/2018 CHARISSA K Primary CHARISSA K [place] [id number] Insurance:MEDICARE [place]OB: Community [place] [facility] [id number] Number: Repository [address]Eyr: 330 [id number] [phone] (HP) Date:2018-05-29 05/29/2018 Secondary CHARISSA K [place] Insurance:AARPPolicy MALLORIEGOMERYDOB: Community Number: [id number] Hospital [id number] Repository Date:5988-96-41[address]VDYWXUL, [place] [address]AY: 05/29/2018 Tertiary NOT GIVENUNK [place] Insurance:SELF PAY [facility] Hospital Number: Effective Repository Date:2018-05-29 05/29/2018 CHARISSA K Primary CHARISSA K [place] [id number] Insurance:MEDICARE [place]OB: Community [place] [facility] [id number] Number: Repository [address]Oyq: 330 [id number] [phone] (HP) Date:2018-05-29 05/29/2018 Secondary CHARISSA K [place] Insurance:AARPPolicy MALLORIEGOMERYDOB: Community Number: [id number] Hospital [id number] Repository Date:4513-35-55[address]KYAVYDU, [place] [address]OR: 05/29/2018 Tertiary NOT GIVENUNK [place] Insurance:SELF PAY [facility] Number: Effective Repository Date:2018-05-29 05/29/2018 CHARISSA K Primary CHARISSA K [place] [id number] Insurance:MEDICARE [place]OB: [place] [id number] [place] Number: Repository [address]Zft: 330 [id number] [phone] (HP) Date:2018-05-29 05/29/2018 Secondary CHARISSA K [place] Insurance:AARPPolicy [place]DOB: Community Number: [id number] Hospital [id number] Repository Date:6863-40-12AJ [facility] 716789UAYQPQF, [place] [address]MR: 05/29/2018 Tertiary NOT GIVENUNK [place] Insurance:SELF PAY [facility] Number: Effective Repository Date:2018-05-29 05/29/2018 CHARISSA K Primary CHARISSA K [place] [id number] Insurance:MEDICARE [place]DOB: Community [place] [facility] [id number] [facility] [place] Number: Repository [address]Bqo: 330 [id number] [phone] () Date:2018-05-29 05/29/2018 Secondary CHARISSA K [place] Insurance:AARPPolicy [place]DOB: Community Number: [id number] Hospital [id number] Repository Date:7908-50-68SX [facility] 170779EJIEULK, [place] [address]JX: 05/29/2018 Tertiary NOT GIVENUNK [place] Insurance:SELF PAY [facility] Number: Effective Repository Date:2018-05-29 05/29/2018 CHARISSA K Primary CHARISSA K [place] [id number] Insurance:MEDICARE [place]OB: Community [place] [facility] [id number] [facility] [place] Number: Repository [address]Gyp: 330 [id number] [phone] (HP) Date:2017-07-05 05/29/2018 Secondary CHARISSA K [place] Insurance:AARPPolicy [place]DOB: Community Number: [id number] Hospital [id number] Repository Date:9358-44-42MH [address]QJSBUAF, [place] [address]KW: 05/29/2018 Tertiary NOT GIVENUNK [place] Insurance:SELF PAY [facility] Number: Effective Repository Date:2018-05-04 05/22/2018 CHARISSA K Primary CHARISSA K [place] [id number] Insurance:MEDICARE [place]OB: [place] olicy [id number] Number: Repository [address]Hug: 330 [id number] [phone] () Date:2017-07-05 05/22/2018 Secondary CHARISSA K [place] Insurance:AARPPolicy [place]DOB: Community Number: [id number] Hospital [id number] Repository Date:7441-37-27[address]LCDQFSW, [place] [address]YF: 05/22/2018 Tertiary NOT GIVENUNK [place] Insurance:SELF PAY [facility] Hospital Number: Effective Repository Date:2018-05-22 05/15/2018 CHARISSA K Primary CHARISSA K [place] [id number] Insurance:MEDICARE [place]DOB: Community [place] [facility] [id number] [facility] [place] Number: Repository [address]Eme: 330 [id number] [phone] () Date:2018-05-03 05/15/2018 Secondary CHARISSA K [place] Insurance:AARPPolicy [place]DOB: Community Number: [id number] Hospital [id number] Repository Date:4123-20-58AP [facility] 529767DIQKLDP, [place] [address]QB: 05/15/2018 Tertiary NOT GIVENUNK [place] Insurance:SELF PAY [facility] Number: Effective Repository Date:2018-05-14 05/15/2018 CHARISSA K Primary CHARISSA K [place] [id number] Insurance:MEDICARE [place]OB: Community [place] [facility] [id number] Number: Repository [address]Xgn: 330 [id number] [phone] (HP) Date:2018-05-03 05/15/2018 Secondary CHARISSA K [place] Insurance:AARPPolicy [place]DOB: Community Number: [id number] Hospital [id number] Repository Date:2719-33-37FT [facility] 412552DSDXKXQ, [place] [address]KS: 05/15/2018 Tertiary NOT GIVENUNK [place] Insurance:SELF PAY [facility] Number: Effective Repository Date:2018-05-15 05/15/2018 CHARISSA K Primary CHARISSA K [place] [id number] Insurance:MEDICARE [place]DOB: Community [place] [facility] [id number] Number: Repository [address]Ysy: 330 [id number] [phone] (HP) Date:2018-05-03 05/15/2018 Secondary CHARISSA K [place] Insurance:AARPPolicy [place]DOB: Community Number: [id number] Hospital [id number] Repository Date:9285-80-99CP [facility] 674775SUJTSYW, [place] [address]GG: 05/15/2018 Tertiary NOT GIVENUNK [place] Insurance:SELF PAY [facility] Number: Effective Repository Date:2018-05-15 05/15/2018 CHARISSA K Primary CHARISSA K [place] [id number] Insurance:MEDICARE [place]DOB: Community [place] [facility] [id number] Number: Repository [address]Mmh: 330 [id number] [phone] (HP) Date:2018-05-03 05/15/2018 Secondary CHARISSA K [place] Insurance:AARPPolicy [place]DOB: Community Number: [id number] Hospital [id number] Repository Date:0094-42-44SC [facility] 593441GRQONJP, [place] [address]YA: 05/15/2018 Tertiary NOT GIVENUNK [place] Insurance:SELF PAY [facility] Number: Effective Repository Date:2018-05-15 05/15/2018 CHARISSA K Primary CHARISSA K [place] [id number] Insurance:MEDICARE [facility]: [facility] [place] [facility] [id number] Number: Repository [address]Xbd: 330 [id number] [phone] (HP) Date:2018-05-03 05/15/2018 Secondary CHARISSA K [place] Insurance:AARPPolicy [place]DOB: Community Number: [id number] Hospital [id number] Repository Date:4936-75-33FG [facility] 150417JYOSPPB, [place] [address]WM: 05/15/2018 Tertiary NOT GIVENUNK [place] Insurance:SELF PAY [facility] Number: Effective Repository Date:2018-05-15 05/15/2018 CHARISSA K Primary CHARISSA K [place] [id number] Insurance:MEDICARE [place]DOB: Community [place] [facility] [id number] Number: Repository [address]Npn: ([phone] [id number] [phone] (HP) Date:2018-05-03 05/15/2018 Secondary CHARISSA K [place] Insurance:AARPPolicy [place]DOB: Community Number: [id number] Hospital [id number] Repository Date:8892-90-07JP [address]SUQJWLO, [place] [address]WX: 05/15/2018 Tertiary NOT GIVENUNK [place] Insurance:SELF PAY [facility] Number: Effective Repository Date:2018-05-15 05/15/2018 CHARISSA K Primary CHARISSA K [place] [id number] Insurance:MEDICARE [facility]: Community [place] [facility] [id number] Number: Repository [address]Hgn: 330 [id number] [phone] (HP) Date:2018-05-03 05/15/2018 Secondary CHARISSA K [place] Insurance:AARPPolicy VITOMERYDOB: Community Number: [id number] Hospital [id number] Repository Date:9941-53-61WR [facility] 306968YZQUXKE, [place] [address]FM: 05/15/2018 Tertiary NOT GIVENUNK [place] Insurance:SELF PAY [facility] Number: Effective Repository Date:2018-05-03 05/14/2018 CHARISSA K Primary CHARISSA K [place] [id number] Insurance:MEDICARE [place]DOB: Community [place] [facility] [id number] [place] Number: Repository [address]Lgi: 330 [id number] [phone] (HP) Date:2018-05-14 05/14/2018 Secondary CHARISSA K [place] Insurance:AARPPolicy VITOMERYDOB: Community Number: [id number] Hospital [id number] Repository Date:3596-58-49[address]HPZJEIT, [place] [address]UA: 05/14/2018 Tertiary NOT GIVENUNK [place] Insurance:SELF PAY [facility] Hospital Number: Effective Repository Date:2018-05-14 05/08/2018 CHARISSA K Primary CHARISSA K [place] [id number] Insurance:MEDICARE [place]DOB: Community [place] [facility] [id number] [place] Number: Repository [address]Bwp: 330 [id number] [phone] (HP) Date:2006-09-02 05/08/2018 Secondary CHARISSA K [place] Insurance:AARPPolicy MALLORIEGOMERYDOB: Community Number: [id number] Hospital [id number] Repository Date:3977-91-07RY [address]GCBMDYU, [place] [address]PP: 05/08/2018 Tertiary NOT GIVENUNK [place] Insurance:SELF PAY [facility] Number: Effective Repository Date:2018-05-02 05/01/2018 CHARISSA K Primary CHARISSA K [place] [id number] Insurance:MEDICARE [place]OB: [place] BPolicy [id number] Number: Repository [address]Tdl: 330 [id number] [phone] (HP) Date:2018-05-01 05/01/2018 Secondary CHARISSA K [place] Insurance:AARPPolicy [place]DOB: Community Number: [id number] Hospital [id number] Repository Date:9067-87-16AK [facility] 994395MDRHTJI, [place] [address]OS: 05/01/2018 Tertiary NOT GIVENUNK [place] Insurance:SELF PAY [facility] Number: Effective Repository Date:2018-05-01 05/01/2018 CHARISSA K Primary NOT GIVENUNK [place] [id number] Insurance:SELF PAY [facility] [place] Number: Effective Repository [id number]: (330) Date:2018-04-04 [id number] (HP) 04/30/2018 CHARISSA K Primary CHARISSA K [place] [id number] Insurance:MEDICARE [place]OB: [place] olic [id number] [facility] [place] Number: Repository [address]Bzp: 330 [id number] [phone] (HP) Date:2018-04-24 04/30/2018 Secondary CHARISSA K [place] Insurance:AARPPolicy [place]DOB: Community Number: [id number] Hospital [id number] Repository Date:3333-28-20ZY [facility] 897404HXSNDYQ, [place] [address]EQ: 04/30/2018 Tertiary NOT GIVENUNK [place] Insurance:SELF PAY [facility] Number: Effective Repository Date:2018-04-24 04/24/2018 CHARISSA K Primary CHARISSA K [place] [id number] Insurance:MEDICARE [place]DOB: Community [place] olicy [id number] [facility] [place] Number: Repository [address]Fsk: 330 [id number] [phone] (HP) Date:2018-05-01 04/24/2018 Secondary CHARISSA K [place] Insurance:AARPPolicy [place]DOB: Community Number: [id number] Hospital [id number] Repository Date:6564-25-71HL [address]TSTAEYN, [place] [address]DF: 04/24/2018 Tertiary NOT GIVENUNK [place] Insurance:SELF PAY [facility] Hospital Number: Effective Repository Date:2018-04-24 04/22/2018 CHARISSA K Primary CHARISSA K Bushnell [id number] Insurance:MEDICARE [place]DOB: [place] [facility] [id number] [place] Number[facility] Repository [address]Ieq: 330 [id number] [phone] (HP) Date:2018-05-01 04/22/2018 Secondary CHARISSA K Rigoberto Insurance:AARPPolicy MONTGOMERYDOB: Community Number: [id number] Hospital [id number] Repository Date:3595-54-75TP [address]CB, [place] [address]CY: 04/22/2018 Tertiary NOT GIVENUNK Rigoberto Insurance:SELF PAY [facility] Number: Effective Repository Date:2018-04-22 04/22/2018 CHARISSA K Primary CHARISSA K Bushnell [id number] Insurance:MEDICARE [place]DOB: Community [place] olicy [id number] [facility] Hospital [place] Number: Repository [address]Znw: 330 [id number] [phone] (HP) Date:2018-04-19 04/22/2018 Secondary CHARISSA K Rigoberto Insurance:AARPPolicy MONTGOMERYDOB: Community Number: [id number] Hospital [id number] Repository Date:1014-28-62WW [address]MSVVXTI, [place] [address]UT: 04/22/2018 Tertiary NOT GIVENUNK Bush[place] Insurance:SELF PAY [facility] Hospital Number: Effective Repository Date:2018-04-19 04/19/2018 CHARISSA K Primary CHARISSA K Bushnell [id number] Insurance:MEDICARE [place]TGOM[place]DOB: Community [place] [facility] [id number] Number: Repository [address]Yal: 330 [id number] [phone] (HP) Date:2018-04-17 04/19/2018 Secondary CHARISSA K Bushnell Insurance:AARPPolicy [place]TGOM[place]DOB: Community Number: [id number] Hospital [id number] Repository Date:6484-58-76KM [facility] [address]126DDCABIF, [place] [address]WZ: 04/19/2018 Tertiary NOT GIVENUNK Rigoberto Insurance:SELF PAY [facility] Hospital Number: Effective Repository Date:2018-04-18 04/16/2018 CHARISSA K Primary CHARISSA K Bushnell [id number] Insurance:MEDICARE [place]DOB: Community [place] [facility] [id number] [place] Number: Repository [address]Efq: 330 [id number] [phone] () Date:2018-04-02 04/16/2018 Secondary CHARISSA K Rigoberto Insurance:AARPPolicy MALLORIEGOMERYDOB: Community Number: [id number] Hospital [id number] Repository Date:3644-84-09QY [facility] 019471DLWSQ[place], [place] [address]LE: 04/16/2018 Tertiary NOT GIVENUNK Bush[place] Insurance:SELF PAY [facility] Hospital Number: Effective Repository Date:2018-04-02 04/15/2018 CHARISSA K Primary CHARISSA K Bushnell [id number] Insurance:MEDICARE [place]DOB: Community [place] [facility] [id number] [place] Number: Repository [address]Ztf: 330 [id number] [phone] (HP) Date:2018-04-02 04/15/2018 Secondary CHARISSA K Rigoberto Insurance:AARPPolicy YANAOB: Community Number: [id number] Hospital [id number] Repository Date:4967-94-87EJ [facility] 672042TTQZKID, [place] [address]IX: 04/15/2018 Tertiary NOT GIVENUNK Bushnell Insurance:SELF PAY [facility] Hospital Number: Effective Repository Date:2018-04-15 04/10/2018 CHARISSA K Primary CHARISSA K Rigoberto [id number] Insurance:MEDICARE [place]DOB: Community [place] [facility] [id number] [place] Number: Repository [address]Exr: 330 [id number] [phone] () Date:2018-05-01 04/10/2018 Secondary CHARISSA K Rigoberto Insurance:LAURENCEPPolicy EMMAYDOB: Community Number: [id number] Hospital [id number] Repository Date:2826-86-84AF [facility] 063487ALMZKWF, [place] [address]LZ: 04/10/2018 Tertiary NOT GIVENUNK Bushnell Insurance:SELF PAY [facility] Hospital Number: Effective Repository Date:2018-04-10 04/03/2018 CHARISSA K Primary CHARISSA K Bushnell [id number] Insurance:MEDICARE [place]DOB: Community [place] [facility] [id number] [place] Number: Repository [address]Axk: [id number] [phone] () e Date:2017-07-05 04/03/2018 Secondary CHARISSA K Rigoberto Insurance:AARPPolicy VITOMERYDOB: Community Number: [id number] Hospital [id number] Repository Date:0042-54-35EV [facility] [address]PAEXTCS, [place] [address]SH: 04/03/2018 Tertiary NOT GIVENUNK Rigoberto Insurance:SELF PAY [facility] Hospital Number: Effective Repository Date:2018-03-04 04/03/2018 CHARISSA K Primary CHARISSA K Rigobreto [id number] Insurance:MEDICARE [place]DOB: Community [place] [facility] [id number] Hospital [facility] Number: Repository [address]Oio: [phone]-AEffectiv [phone] () e Date:2017-07-05 04/03/2018 Secondary CHARISSA K Bushnell Insurance:AARPPolicy MON[place]DOB: Community Number: [id number] Hospital [id number] Repository Date:6160-41-94EW [facility] 381164HOPKLPL, [place] [address]SM: 04/03/2018 Tertiary NOT GIVENUNK Bushnell Insurance:SELF PAY [facility] Hospital Number: Effective Repository Date:2018-04-03 03/28/2018 CHARISSA K Primary CHARISSA K Bushnell [id number] Insurance:MEDICARE [place]DOB: Community [place] [facility] [id number] Hospital [facility] Number: Repository [address]Wwx: [phone]-AEffectiv [phone] () e Date:2018-03-28 03/28/2018 Secondary CHARISSA K Bushnell Insurance:AARPPolicy MON[place]OM[place]DOB: Community Number: [id number] Hospital [id number] Repository Date:9060-64-28SM [address]PDEIORC, [place] [address]SV: 03/28/2018 Tertiary NOT GIVENUNK Rigoberto Insurance:SELF PAY [facility] Hospital Number: Effective Repository Date:2018-03-28 03/27/2018 CHARISSA K Primary CHARISSA K Rigoberto [id number] Insurance:MEDICARE [place]DOB: Community [place] olicy [id number] Hospital [facility], [place] Number: Repository [address]Pth: [phone]-AEffectiv [phone] () e Date:2017-07-05 03/27/2018 Secondary CHARISSA K Bushnell Insurance:AARPPolicy [place]TGOM[place]DOB: Community Number: [id number] Hospital [id number] Repository Date:2532-86-63CT [address]TKEFPHM, [place] [address]VF: 03/27/2018 Tertiary NOT GIVENUNK Bushnell Insurance:SELF PAY [facility] Hospital Number: Effective Repository Date:2018-03-27 03/20/2018 CHARISSA K Primary CHARISSA K Rigoberto [id number] Insurance:MEDICARE [place]DOB: Community [place] [facility] [id number] [place] Number: Repository [address]Unh: [phone]-AEffectiv [phone] () e Date:2017-07-05 03/20/2018 Secondary CHARISSA K Rigoberto Insurance:AARPPolicy [place]DOB: Community Number: [id number] Hospital [id number] Repository Date:0611-57-71BQ [address]TMDQEJS, [place] [address]KX: 03/20/2018 Tertiary NOT GIVENUNK Rigoberto Insurance:SELF PAY [facility] Hospital Number: Effective Repository Date:2018-03-20 03/11/2018 CHARISSA K Primary CHARISSA K Rigoberto [id number] Insurance:MEDICARE [place]DOB: Community [place] [facility] [id number] [place] Number: Repository [address]Ext: [phone] [id number] [phone] () Date:2017-07-05 03/11/2018 Secondary CHARISSA K Bushnell Insurance:AARPPolicy [place]OM[place]DOB: Community Number: [id number] Hospital [id number] Repository Date:4473-17-61XT [address]CXKUDTZ, [place] [address]OW: 03/11/2018 Tertiary NOT GIVENUNK Bushnell Insurance:SELF PAY [facility] Hospital Number: Effective Repository Date:2018-03-11 03/06/2018 CHARISSA K Primary CHARISSA K Bushnell [id number] Insurance:MEDICARE [place]DOB: Community [place] [id number] Memorial Hospital [place] Number: Repository [address]Ovg: [phone]-AEffectiv [phone] () e Date:2017-07-05 03/06/2018 Secondary CHARISSA K Rigoberto Insurance:AARPPolicy [place]OM[place]DOB: Community Number: [id number] Hospital [id number] Repository Date:8665-10-70TE [address]QFKULMS, [place] [address]EA: 03/06/2018 Tertiary NOT GIVENUNK Bushnell Insurance:SELF PAY [facility] Number: Effective Repository Date:2018-03-06 02/27/2018 CHARISSA K Primary CHARISSA K Rigoberto [id number] Insurance:MEDICARE [place]DOB: Community [place] [facility] [id number] Hospital [facility] Number: Repository [address]Pnb: [phone]-AEffectiv [phone] () e Date:2017-07-05 02/27/2018 Secondary CHARISSA K Rigoberto Insurance:AARPPolicy [place]OM[place]DOB: Community Number: [id number] Hospital [id number] Repository Date:8602-62-65RY [address]ZEMSVLK, [place] [address]FH: 02/27/2018 Tertiary NOT GIVENUNK Rigoberto Insurance:SELF PAY [facility] Number: Effective Repository Date:2018-02-02 02/27/2018 CHARISSA K Primary CHARISSA K Rigoberto [id number] Insurance:MEDICARE MON[place]DOB: Community [place] [facility] [id number] Hospital [place] Number: Repository 09[address]Kpy: [phone]-AEffectiv [phone] () e Date:2017-07-05 02/27/2018 Secondary CHARISSA K Rigoberto Insurance:AARPPolicy [place]DOB: Community Number: [id number] Hospital [id number] Repository Date:9391-05-62TJ [address]WDYPHTL, [place] [address]ZL: 02/27/2018 Tertiary NOT GIVENUNK Bushnell Insurance:SELF PAY [facility] Hospital Number: Effective Repository Date:2018-02-27 02/20/2018 CHARISSA K Primary CHARISSA K Bushnell [id number] Insurance:MEDICARE [facility] PART A BPolicy [id number] [place] Number: Repository [address]Pfg: [phone]-AEffectiv [phone] () e Date:2017-07-05 02/20/2018 Secondary CHARISSA K Bushnell Insurance:AARUAB HospitalYDOB: Community Number: [id number] Hospital [id number] Repository Date:8853-91-63GT [address]LLGZNBV, [place] [address]HB: 02/20/2018 Tertiary NOT GIVENUNK Rigoberto Insurance:SELF PAY [facility] Hospital Number: Effective Repository Date:2018-02-20 02/19/2018 CHARISSA K Primary CHARISSA K [facility] MONTGOMERYDOB: Insurance:MEDICARE A [facility]OB: [place] [facility] Number: [id number] [facility] [id number] [place], [place] Date:5405-66-97Mrti [place], [place] Repository [address]Zxn: (309) Name:CARE [id number]: () [phone] () 02/19/2018 Secondary CHARISSA K [facility] Insurance:AARPPolicy [facility] University Number: [id number] [facility] [id number] [facility] Date:9189-99-50Cieu [place], [place] Repository Name:MANAGED CARE 10337Rkw: () 02/13/2018 CHARISSA K Primary CHARISSA K Bushnell [id number] Insurance:MEDICARE [place]DOB: Community [place] [facility] [id number] Memorial Hospital [place] Number: Repository 23[address]Ujd: [phone]-AEffectiv [phone] () e Date:2017-07-05 02/13/2018 Secondary CHARISSA K Bushnell Insurance:AARPPolicy [place]DOB: Community Number: [id number] Hospital [id number] Repository Date:2842-70-80QG [address]EHQTJAP, [place] [address]GC: 02/13/2018 Tertiary NOT GIVENUNK Bushnell Insurance:SELF PAY [facility] Number: Effective Repository Date:2018-02-13 02/06/2018 CHARISSA K Primary CHARISSA K Bushnell [id number] Insurance:MEDICARE [place]DOB: Community [place] [facility] [id number] Hospital [place] Number: Repository [address]Dvl: [phone]-AEffectiv [phone] () e Date:2017-07-05 02/06/2018 Secondary CHARISSA K Rigoberto Insurance:AARPPolicy [place]DOB: Community Number: [id number] Hospital [id number] Repository Date:9456-22-17YJ [address]GEKRHFJ, [place] [address]XT: 02/06/2018 Tertiary NOT GIVENUNK Rigoberto Insurance:SELF PAY [facility] Hospital Number: Effective Repository Date:2018-02-06 01/31/2018 CHARISSA K Primary CHARISSA K Rigoberto [id number] Insurance:MEDICARE [place]DOB: Community [place] [facility] [id number] Hospital [place] Number: Repository [address]Psz: [phone]-AEffectiv [phone] () e Date:2018-01-31 01/31/2018 Secondary CHARISSA K Bushnell Insurance:AARPPolicy [place]DOB: Community Number: [id number] Hospital [id number] Repository Date:4658-76-77YF [address]WGMLSTG, [place] [address]PN: 01/31/2018 Tertiary NOT GIVENUNK Bushnell Insurance:SELF PAY [facility] Number: Effective Repository Date:2018-01-31 01/30/2018 CHARISSA K Primary CHARISSA K Bushnell [id number] Insurance:MEDICARE [place]DOB: Community [place] [facility] [id number] Memorial Hospital [place] Number: Repository [address]Kpl: [phone]-AEffectiv [phone] () e Date:2017-07-05 01/30/2018 Secondary CHARISSA K Rigoberto Insurance:AARPPolicy [place]OM[place]DOB: Community Number: [id number] Hospital [id number] Repository Date:9687-59-13VT [address]UQOWBVL, [place] [address]MQ: 01/30/2018 Tertiary NOT GIVENUNK Bushnell Insurance:SELF PAY [facility] Hospital Number: Effective Repository Date:2018-01-02 01/30/2018 CHARISSA K Primary CHARISSA K Rigoberto [id number] Insurance:MEDICARE [place]DOB: Community [place] [facility] [id number] Memorial Hospital [place] Number: Repository [address]Ogy: [phone]-AEffectiv [phone] () e Date:2017-07-05 01/30/2018 Secondary CHARISSA K Bushnell Insurance:AARPPolicy [place]TGOM[place]DOB: Community Number: [id number] Hospital [id number] Repository Date:6567-20-73DN [address]RHDHMXI, [place] [address]LS: 01/30/2018 Tertiary NOT GIVENUNK Rigoberto Insurance:SELF PAY [facility] Hospital Number: Effective Repository Date:2018-01-30 01/23/2018 CHARISSA K Primary CHARISSA K Rigoberto [id number] Insurance:MEDICARE [place]DOB: Community [place] BPolicy [id number] [place] Number: Repository [address]Npd: [phone]-AEffectiv [phone] () e Date:2017-07-05 01/23/2018 Secondary CHARISSA K Rigoberto Insurance:AARPPolicy VITOMERYDOB: Community Number: [id number] Hospital [id number] Repository Date:8612-51-33QJ [address]LQLTKRR, [place] [address]XN: 01/23/2018 Tertiary NOT GIVENUNK Rigoberto Insurance:SELF PAY [facility] Hospital Number: Effective Repository Date:2018-01-23 01/16/2018 CHARISSA K Primary CHARISSA K Rigoberto [id number] Insurance:MEDICARE [facility]ITALGOMERYDOB: [facility] [place] [facility] [id number] [place] Number: Repository [address]Fgx: 330 [phone]-AEffectiv [phone] () e Date:2017-07-05 01/16/2018 Secondary CHARISSA K Bushnell Insurance:AARPPolicy [facility] SERVICESAMMONOB: Community Number: [id number] Hospital [id number] Repository Date:5308-01-97FV [address]MMGJPLL, [place] [address]BI: 01/16/2018 Tertiary NOT GIVENUNK Rigoberto Insurance:SELF PAY [facility] Hospital Number: Effective Repository Date:2018-01-16 01/15/2018 CHARISSA K Primary CHARISSA K [facility] MONTGOMERYDOB: Insurance:MEDICARE A [facility] SERVICESMERYDOB: [place] [facility] Number: [id number] [facility] [id number] [place], [place] Date:5741-03-79PycwJamesville, [place] Repository [address]Ovy: (722) Name:[facility] 91196Mvd: () [phone] () 01/15/2018 Secondary CHARISSA K [facility] Insurance:AARPPolicy MONTGOM[place]DOB: University Number: [id number] [facility] [id number] [facility] Date:8621-39-94DagjJamesville, [place] Repository Name:[facility] CARE 86[address]Sog: () 01/09/2018 CHARISSA K Primary CHARISSA K Rigoberto [id number] Insurance:MEDICARE [place]DOB: Community [place] [facility] [id number] [place] Number: Repository [address]Dri: [phone]-AEffectiv [phone] () e Date:2017-07-05 01/09/2018 Secondary CHARISSA K Rigoberto Insurance:AARPPolicy [place]OM[place]DOB: Community Number: [id number] Hospital [id number] Repository Date:6989-25-93XH [address]MKBIIEE, [place] [address]UQ: 01/09/2018 Tertiary NOT GIVENUNK Bushnell Insurance:SELF PAY [facility] Hospital Number: Effective Repository Date:2018-01-09 01/02/2018 CHARISSA K Primary CHARISSA K Rigoberto [id number] Insurance:MEDICARE MONTGOMERYDOB: [facility] [place] A [facility] [id number] Number: Repository [address]Znl: [phone]-AEffectiv [phone] () e Date:2017-07-05 01/02/2018 Secondary CHARISSA K Rigoberto Insurance:AARPPolicy [place]TGOM[place]DOB: Community Number: [id number] Hospital [id number] Repository Date:1439-61-56NS [address]ATXEMVE, [place] [address]XT: 01/02/2018 Tertiary NOT GIVENUNK Rigoberto Insurance:SELF PAY Community [facility] Hospital Number: Effective Repository Date:2018-01-02 12/26/2017 CHARISSA K Primary CHARISSA K Rigoberto [id number] Insurance:MEDICARE [place]DOB: Community [place] olicy [id number] Number: Repository [address]Ddw: [phone]-AEffectiv [phone] () e Date:2017-07-05 12/26/2017 Secondary CHARISSA K Bushnell Insurance:AARPPolicy MALLORIEGOMERYDOB: Community Number: [id number] Hospital [id number] Repository Date:8097-51-94MD [address]JEVXIKQ, [place] [address]FX: 12/26/2017 Tertiary NOT GIVENUNK Bushnell Insurance:SELF PAY [facility] Hospital Number: Effective Repository Date:2017-12-02 12/26/2017 CHARISSA K Primary CHARISSA K Rigoberto [id number] Insurance:MEDICARE [facility]OSPITALGOMERYDOB: [facility] [place] [facility] [id number] [place] Number: Repository [address]Tys: 330 [phone]-AEffectiv [phone] () e Date:2017-07-05 12/26/2017 Secondary CHARISSA K Bushnell Insurance:AARPPolicy [facility] SERVICESYESICAYDOB: Community Number: [id number] Hospital [id number] Repository Date:3087-56-95ZE [address]HSCUPIB, [place] [address]DQ: 12/26/2017 Tertiary NOT GIVENUNK Bushnell Insurance:SELF PAY [facility] Hospital Number: Effective Repository Date:2017-12-26 12/10/2017 CHARISSA K Primary CHARISSA K [facility] MONTGOMERYDOB: Insurance:MEDICARE A [facility] SERVICESMERYDOB: [place] [facility] Number: [id number] [facility] [id number] [place], [place] Date:2916-48-28GxclJamesville, [place] Repository [address]Wib: (662) Name:[facility] 39419Bhu: () [phone] () 12/10/2017 Secondary CHARISSA K [facility] Insurance:AARSmith MILLANOB: University Number: [id number] [facility] [id number] [place] Date:7575-64-95Zpms [place] Repository Name:MANAGED CARE [id number]: () 11/26/2017 CHARISSA K Primary CHARISSA K [facility]: Insurance:MEDICARE A [facility]: [place] BPolicy Number: [id number] [facility] [id number] [place] Date:1286-41-21Xuuu [place], [place] Repository [address]Jqi: (330) Name:CARE 79[address]Xbk: (HP) [phone] () 11/26/2017 Secondary CHARISSA K [facility] Insurance:LAURENCEPPjani MILLANOB: University Number: [id number] [facility] [id number] [place] Date:1673-57-34Jwbd [place], [place] Repository Name:MANAGED CARE 13677Bpq: () 11/26/2017 CHARISSA K Primary CHARISSA K [facility] MALLORIEGOMERYDOB: Insurance:MEDICARE A [facility] CENTERJOSE EDUARDOOB: [place] AND BPolicy Number: [id number] [facility] [id number] [place] Date:0990-12-09Kzql [place], [place] Repository [address]Mfw: (330) Name:CARE [id number]: (HP) [phone] (HP) 11/26/2017 Secondary CHARISSA K [facility] Insurance:AARSmith MILLANOB: University Number: [id number] [facility] [id number] [place] Date:2766-48-48Jbfw [place], [place] Repository Name:MANAGED CARE [id number]: () 11/21/2017 CHARISSA K Primary CHARISSA K Bushnell [id number] Insurance:MEDICARE [place]DOB: Community [place] [facility] [id number] Hospital [place] Number: Repository [address]Bmi: [phone]) [phone]-AEffectiv [phone] () e Date:2017-07-05 11/21/2017 Secondary CHARISSA K Bushnell Insurance:AARPPolicy MONTGOM[place]DOB: Community Number: [id number] Hospital [id number] Repository Date:8265-63-87KW [address]TWNIVRI, [place] [address]KV: 11/21/2017 Tertiary NOT GIVENUNK Rigoberto Insurance:SELF PAY [facility] Number: Effective Repository Date:2017-11-02 11/14/2017 CHARISSA K Primary CHARISSA K Rigoberto [id number] Insurance:MEDICARE [place]DOB: Community [place] [facility] [id number] Hospital [place] Number[place] Repository [address]Pac: [phone]-AEffectiv [phone] () e Date:2017-07-05 11/14/2017 Secondary CHARISSA K Rigoberto Insurance:AARPPolicy [place]OM[place]DOB: Community Number: [id number] Hospital [id number] Repository Date:5580-70-66LX [address]NHCISDH, [place] [address]AT: 11/14/2017 Tertiary NOT GIVENUNK Bushnell Insurance:SELF PAY [facility] Hospital Number: Effective Repository Date:2017-11-14 11/07/2017 CHARISSA K Primary CHARISSA K Bushnell [id number] Insurance:MEDICARE [place]DOB: Community [place] [facility] [id number] Hospital [place] Number[place] Repository [address]Nvr: [phone]-AEffectiv [phone] () e Date:2017-07-05 11/07/2017 Secondary CHARISSA K Bushnell Insurance:AARPPolicy MONTGOM[place]DOB: Community Number: [id number] Hospital [id number] Repository Date:7462-48-25JE [address]SJTXTRG, [place] [address]OG: 11/07/2017 Tertiary NOT GIVENUNK Bushnell Insurance:SELF PAY [facility] Number: Effective Repository Date:2017-11-07 10/31/2017 CHARISSA K Primary CHARISSA K Rigoberto [id number] Insurance:MEDICARE [place]OB: Community [place] [facility] [id number] Number: Repository [id number]: [phone]-AEffectiv [phone] () e Date:2017-07-05 10/31/2017 Secondary CHARISSA K Rigoberto Insurance:AARPPolicy [place]OB: Community Number: [id number] Hospital [id number] Repository Date:9806-63-10[address]KGF, [place] [address]KM: 10/31/2017 Tertiary NOT GIVENUNK [place] Insurance:SELF PAY [facility] Number: Effective Repository Date:2017-10-02 10/31/2017 CHARISSA K Primary CHARISSA K [place] [id number] Insurance:MEDICARE [place]DOB: [place] [facility] [id number] [place] Number: Repository [address]Jpr: [phone]-[id number] [phone] () e Date:2017-07-05 10/31/2017 Secondary CHARISSA K Rigoberto Insurance:AARPPolicy MONTGOMERYDOB: Community Number: [id number] Hospital [id number] Repository Date:9936-46-24[address]NEFGP, [place] [address]LN: 10/31/2017 Tertiary NOT GIVENUNK Rigoberto Insurance:SELF PAY [facility] Number: Effective Repository Date:2017-10-31 10/24/2017 CHARISSA K Primary CHARISSA K [place] [id number] Insurance:MEDICARE [facility]: Community [place] [facility] [id number] [place] Number: Repository [address]Cpy: [phone]-AEffectiv [phone] (HP) e Date:2017-07-05 10/24/2017 Secondary CHARISSA K Rigoberto Insurance:AARPPolicy VITOMERYDOB: Community Number: [id number] Hospital [id number] Repository Date:0487-39-27OL [facility] [address], [place] [address]DU: 10/24/2017 Tertiary NOT GIVENUNK Rigoberto Insurance:SELF PAY [facility] Number: Effective Repository Date:2017-10-24 10/24/2017 CHARISSA K Primary CHARISSA K Rigoberto [id number] Insurance:[facility]ARE [facility]: [facility] [place] [facility] [id number] [place] Number: Repository [address]Cmz: [phone]-AEffectiv [phone] () e Date:2017-07-05 10/24/2017 Secondary CHARISSA K Rigoberto Insurance:AARPPolictom MILLANOB: Community Number: [id number] Hospital [id number] Repository Date:5317-70-39[address], [place] [address]IL: 10/24/2017 Tertiary NOT GIVENUNK Rigoberto Insurance:SELF PAY [facility] Number: Effective Repository Date:2017-10-24 10/23/2017 CHARISSA K Primary CHARISSA K [facility] MONTGOMERYDOB: Insurance:MEDICARE A [facility]: [place] [facility] Number: [id number] [facility] [id number] [place], [place] Date:0271-18-81WwfmJamesville, [place] Repository [address]Uzq: 330) Name:[facility] [address]Cfy: () [phone] () 10/23/2017 Secondary CHARISSA K [facility] Insurance:AARPPolictom MILLANOB: University Number: [id number] [facility] [id number] [facility] Date:9150-55-55ZyjqJamesville, [place] Repository Name:MANAGED CARE [id number]: () 10/22/2017 CHARISSA K Primary CHARISSA K Rigoberto [id number] Insurance:MEDICARE MONTGOMERYDOB: [facility] [place] [facility] [id number] Number: Repository [address]Mtt: [phone]-AEffectiv [phone] () e Date:2017-10-22 10/22/2017 Secondary CHARISSA K Rigoberto Insurance:AARPPolicy YANAOB: Community Number: [id number] Hospital [id number] Repository Date:6271-25-21[address]DWQZPAM, [place] [address]CR: 10/22/2017 Tertiary NOT GIVENUNK [place] Insurance:SELF PAY [facility] Hospital Number: Effective Repository Date:2017-10-22 10/17/2017 CHARISSA K Primary CHARISSA K [place] [id number] Insurance:MEDICARE MONTGOMERYDOB: [facility] PART A [facility] [id number] Number: Repository [address]Tnj: [phone]-AEffectiv [phone] () e Date:2017-07-05 10/17/2017 Secondary CHARISSA K Rigoberto Insurance:AARPPolicy VITOMERYDOB: Community Number: [id number] Hospital [id number] Repository Date:6878-00-96BQ [facility] [address]49712NMTKKYB, [place] [address]QL: 10/17/2017 Tertiary NOT GIVENUNK [place] Insurance:SELF PAY [facility] Hospital Number: Effective Repository Date:2017-10-17 10/11/2017 CHARISSA K Primary CHARISSA K Rigoberto [id number] Insurance:MEDICARE [place]DOB: Community [place] [facility] [id number] [facility], [place] Number: Repository [address]Pms: [phone] [phone] () e Date:2017-07-05 10/11/2017 Secondary CHARISSA K Rigoberto Insurance:AARPPolicy MONTGOMERYDOB: Community Number: [id number] Hospital [id number] Repository Date:0122-32-84IR [facility] 354731XTMXU[place], [place] [address]OG: 10/11/2017 Tertiary NOT GIVENUNK Rigoberto Insurance:SELF PAY [facility] Number: Effective Repository Date:2017-10-11 10/04/2017 CHARISSA K Primary CHARISSA K Rigoberto [id number] Insurance:MEDICARE [place]DOB: Community [place] [facility] [id number] Hospital [place] Number: Repository [address]Axv: [phone]-AEffectiv [phone] () e Date:2017-07-05 10/04/2017 Secondary CHARISSA K [place] Insurance:AARPPolicy MONTGOMERYDOB: Community Number: [id number] Hospital [id number] Repository Date:3515-40-39[address]PNDQWQS, [place] [address]LE: 10/04/2017 Tertiary NOT GIVENUNK Rigoberto Insurance:SELF PAY [facility] Hospital Number: Effective Repository Date:2017-10-04 09/27/2017 CHARISSA K Primary CHARISSA K [place] [id number] Insurance:MEDICARE [place]DOB: Community [place] [facility] [id number] Hospital [place] Number: Repository [address]Uvp: [phone]-[id number] [phone] () e Date:2017-07-05 09/27/2017 Secondary CHARISSA K [place] Insurance:AARPPolicy MONTGOMERYDOB: Community Number: [id number] Hospital [id number] Repository Date:6591-73-19QB [address]CTOTNYY, [place] [address]PD: 09/27/2017 Tertiary NOT GIVENUNK Rigoberto Insurance:SELF PAY Community [facility] Number: Effective Repository Date:2017-09-02 09/27/2017 CHARISSA K Primary CHARISSA K [place] [id number] Insurance:MEDICARE [place]DOB: Community [place] [facility] [id number] [facility] [place] Number: Repository [address]Ykb: [phone]-AEffectiv [phone] () e Date:2017-07-05 09/27/2017 Secondary CHARISSA K [place] Insurance:AARPPolicy MONTGOMERYDOB: Community Number: [id number] Hospital [id number] Repository Date:8713-25-62TF [address]LMHQHVQ, [place] [address]IW: 09/27/2017 Tertiary NOT GIVENUNK Rigoberto Insurance:SELF PAY [facility] Hospital Number: Effective Repository Date:2017-09-27 09/20/2017 CHARISSA K Primary CHARISSA K [place] [id number] Insurance:MEDICARE [place]DOB: Community [place] [facility] [id number] Hospital [facility] Number: Repository [address]Dlt: [phone]-AEffectiv [phone] () e Date:2017-07-05 09/20/2017 Secondary CHARISSA K [place] Insurance:AARPPolicy MONTGOMERYDOB: Community Number: [id number] Hospital [id number] Repository Date:3291-01-50KD [address]IGVATXY, [place] [address]VP: 09/20/2017 Tertiary NOT GIVENUNK Rigoberto Insurance:SELF PAY Community [facility] Number: Effective Repository Date:2017-09-20 09/06/2017 CHARISSA K Primary CHARISSA K Rigoberto [id number] Insurance:MEDICARE [place]DOB: Community [place] [facility] [id number] Number: Repository [address]Gqm: [phone]-AEffectiv [phone] () e Date:2017-07-05 09/06/2017 Secondary CHARISSA K [place] Insurance:AARPPolicy MONTGOMERYDOB: Community Number: [id number] Hospital [id number] Repository Date:0854-32-50RB [address]YSZRYFL, [place] [address]PU: 09/06/2017 Tertiary NOT GIVENUNK [place] Insurance:SELF PAY [facility] Hospital Number: Effective Repository Date:2017-09-06 08/29/2017 CHARISSA K Primary CHARISSA K [place] [id number] Insurance:MEDICARE MONTGOMERYDOB: Community [place] [facility] [id number] Memorial Hospital [place] Number: Repository [address]Ttc: 330 [phone] [phone] () e Date:2017-07-05 08/29/2017 Secondary CHARISSA K Rigoberto Insurance:AARPPolicy MONTGOMERYDOB: Community Number: [id number] Hospital [id number] Repository Date:0565-26-39[address]NTMFYJN, [place] [address]DM: 08/29/2017 Tertiary NOT GIVENUNK [place] Insurance:SELF PAY [facility] Hospital Number: Effective Repository Date:2017-08-02 08/29/2017 CHARISSA K Primary CHARISSA K [place] [id number] Insurance:MEDICARE [place]OM[place]DOB: Community [place] [facility] [id number] Number: Repository [address]Qrp: [phone]-AEffectiv [phone] () e Date:2017-07-05 08/29/2017 Secondary CHARISSA K Rigoberto Insurance:AARPPolicy MONTGOMERYDOB: Community Number: [id number] Hospital [id number] Repository Date:1235-74-30ZE [address]BYMTQWS, [place] [address]AQ: 08/29/2017 Tertiary NOT GIVENUNK [place] Insurance:SELF PAY [facility] Hospital Number: Effective Repository Date:2017-08-29 08/27/2017 CHARISSA K Primary CHARISSA K [place] [id number] Insurance:MEDICARE MONTGOM[place]DOB: Community [place] [facility] [id number] Number: Repository [address]Uvb: 330 [id number] [phone] (HP) Date:2017-08-13 08/27/2017 Secondary CHARISSA K Rigoberto Insurance:AARPPolicy MONTGOMERYDOB: Community Number: [id number] Hospital [id number] Repository Date:1320-86-13JW [address]TCRKZHY, [place] [address]UE: 08/27/2017 Tertiary NOT GIVENUNK [place] Insurance:SELF PAY [facility] Hospital Number: Effective Repository Date:2017-08-13 08/27/2017 CHARISSA K Primary CHARISSA K Rigoberto [id number] Insurance:MEDICARE [place]DOB: Community [place] [facility] [id number] [place] Number: Repository [address]Fca: 330 [id number] [phone] () Date:2017-08-13 08/27/2017 Secondary CHARISSA K [place] Insurance:AARPPolicy MONTGOMERYDOB: Community Number: [id number] Hospital [id number] Repository Date:6345-94-61[address]XBZOI, [place] [address]JH: 08/27/2017 Tertiary NOT GIVENUNK Rigoberto Insurance:SELF PAY [facility] Hospital Number: Effective Repository Date:2017-08-27 08/23/2017 CHARISSA K Primary CHARISSA K [place] [id number] Insurance:MEDICARE [place]DOB: Community [place] [facility] [id number] Hospital [place] Number: Repository [address]Beo: 330 [id number] [phone] (HP) Date:2017-07-05 08/23/2017 Secondary CHARISSA K Rigoberto Insurance:AARPPolicy MONTGOMERYDOB: Community Number: [id number] Hospital [id number] Repository Date:1495-19-41GM [address]BFOAYBI, [place] [address]IU: 08/23/2017 Tertiary NOT GIVENUNK [place] Insurance:SELF PAY [facility] Number: Effective Repository Date:2017-08-23 08/21/2017 CHARISSA K Primary CHARISSA K Rigoberto [id number] Insurance:MEDICARE [place]DOB: Community [place] [facility] [id number] Hospital [place], [place] Number: Repository [address]Eee: 330 [id number] [phone] (HP) Date:2017-08-09 08/21/2017 Secondary CHARISSA K Bushnell Insurance:AARPPolicy MONTGOMERYDOB: Community Number: [id number] Hospital [id number] Repository Date:4568-01-25LZ [address]NWMBODR, [place] [address]NT: 08/21/2017 Tertiary NOT GIVENUNK Rigoberto Insurance:SELF PAY [facility] Hospital Number: Effective Repository Date:2017-08-09 08/21/2017 CHARISSA K Primary CHARISSA K Rigoberto [id number] Insurance:MEDICARE MON[place]OM[place]DOB: Community [place] [facility] [id number] Hospital [place] Number: Repository [address]Vqt: 330 [id number] [phone] (HP) Date:2017-08-09 08/21/2017 Secondary CHARISSA K Bushnell Insurance:AARPPolicy MONTGOMERYDOB: Community Number: [id number] Hospital [id number] Repository Date:6566-87-93GV [address]ZNAAW[place], [place] [address]OW: 08/21/2017 Tertiary NOT GIVENUNK [place] Insurance:SELF PAY [facility] Hospital Number: Effective Repository Date:2017-08-21 08/19/2017 Charissa K Primary Charissa K [facility] System y Number: Effective [id number] Repository Varina Date: [place], [place] [address]Sbh: () 08/16/2017 CHARISSA K Primary CHARISSA K Bush[place] [id number] Insurance:MEDICARE [facility]: Community [place] [facility] [id number] Number: Repository [address]Sin: 330 [id number] [phone] () Date:2017-07-05 08/16/2017 Secondary CHARISSA K Rigoberto Insurance:AARPPolicy [facility]: Community Number: [id number] Hospital [id number] Repository Date:8519-81-95SC [address]LNHKLVV, [place] [address]CF: 08/16/2017 Tertiary NOT GIVENUNK Rigoberto Insurance:SELF PAY [facility] Number: Effective Repository Date:2017-08-16 08/09/2017 CHARISSA K Primary CHARISSA K Rigoberto [id number] Insurance:MEDICARE [facility]: Community [place] [facility] [id number] Number: Repository [address]Fox: 330 [id number] [phone] () Date:2017-08-02 08/09/2017 Secondary CHARISSA K Rigoberto Insurance:AARPPolicy [facility]ITALGOM[facility]: Community Number: [id number] Hospital [id number] Repository Date:5830-84-35XK [address]CKQFTWQ, [place] [address]NY: 08/09/2017 Tertiary NOT GIVENUNK Rigoberto Insurance:SELF PAY [facility] Number: Effective Repository Date:2017-08-02 08/09/2017 CHARISSA K Primary CHARISSA K [place] MONTGOMERYDOB: Insurance:MEDICARE A MONTGOMERYDOB: University AND [facility] Number: [id number] [facility] [id number] [place], [place] Date:4959-84-71Kjrr [place], [place] Repository [address]Xcu: ([phone]) Name:CARE [id number]: () [phone] () 08/09/2017 Secondary CHARISSA K [facility] Insurance:AARPPolicy MONTGOMERYDOB: University Number: [id number] [facility] [id number] [facility] Date:3317-07-89Vcex [place] Repository Name:[facility] CARE [id number]: () 08/09/2017 CHARISSA K Primary CHARISSA K [place] [id number] Insurance:MEDICARE [place]DOB: Community [place] [facility] [id number] Number: Repository [address]Jzj: [phone] [id number] [phone] () Date:2017-08-09 08/09/2017 Secondary CHARISSA K Rigoberto Insurance:AARPPolicy MALLORIEGOMERYDOB: Community Number: [id number] Hospital [id number] Repository Date:6781-10-36TQ [address], [place] [address]WW: 08/09/2017 Tertiary NOT GIVENUNK Rigoberto Insurance:SELF PAY [facility] Number: Effective Repository Date:2017-08-09 08/09/2017 CHARISSA K Primary CHARISSA K Rigoberto [id number] Insurance:MEDICARE MONTGOM[place]DOB: Community [place] [facility] [id number] Number: Repository [address]Tox: [phone] [id number] [phone] (HP) Date:2017-08-07 08/09/2017 Secondary CHARISSA K Rigoberto Insurance:AARPPolicy MONTGOMERYDOB: Community Number: [id number] Hospital [id number] Repository Date:3025-20-39SG [address]SM[place]M, [place] [address]DM: 08/09/2017 Tertiary NOT GIVENUNK [place] Insurance:SELF PAY [facility] Number: Effective Repository Date:2017-08-07 08/06/2017 CHARISSA K Primary CHARISSA K Rigoberto [id number] Insurance:MEDICARE MON[place]DOB: Community [place] olicy [id number] Memorial [facility] [place] Number: Repository [address]Ojv: [phone] [id number] [phone] () Date:2017-07-05 08/06/2017 Secondary CHARISSA K Rigoberto Insurance:AARPPolicy MONTGOMERYDOB: Community Number: [id number] Hospital [id number] Repository Date:6583-25-50IV [address]UJCFMJR, [place] [address]SC: 08/06/2017 Tertiary NOT GIVENUNK Rigoberto Insurance:SELF PAY [facility] Number: Effective Repository Date:2017-08-06 08/02/2017 CHARISSA K Primary CHARISSA K Rigoberto [id number] Insurance:MEDICARE [place]DOB: Community [place] olicy [id number] [facility] [place] Number: Repository [address]Azs: [phone] [id number] [phone] (HP) Date:2017-08-02 08/02/2017 Secondary CHARISSA K Rigoberto Insurance:AARPPolicy MONTGOMERYDOB: Community Number: [id number] Hospital [id number] Repository Date:5050-29-66SM [address]EHSQWOF, [place] [address]WN: 08/02/2017 Tertiary NOT GIVENUNK [place] Insurance:SELF PAY Community [facility] Number: Effective Repository Date:2017-08-02 08/02/2017 CHARISSA K Primary CHARISSA K [place] [id number] Insurance:MEDICARE [place]DOB: Community [place] [facility] [id number] [facility] Number: Repository [address]Ixi: [phone]-AEffectiv [phone] () e Date:2017-07-31 08/02/2017 Secondary CHARISSA K Bushnell Insurance:AARPPolicy MONTGOMERYDOB: Community Number: [id number] Hospital [id number] Repository Date:0096-19-29YE [address]BPPXSWB, [place] [address]UD: 08/02/2017 Tertiary NOT GIVENUNK Rigoberto Insurance:SELF PAY [facility] Number: Effective Repository Date:2017-07-31 08/02/2017 CHARISSA K Primary CHARISSA K [place]nell [id number] Insurance:MEDICARE [place]DOB: Community [place] [facility] [id number] Hospital [place] Number: Repository [address]Isv: 330 [id number] [phone] () Date:2017-07-05 08/02/2017 Secondary CHARISSA K Bushnell Insurance:AARPPolicy MONTGOMERYDOB: Community Number: [id number] Hospital [id number] Repository Date:4976-60-96FN [address]QARWUQI, [place] [address]EP: 08/02/2017 Tertiary NOT GIVENUNK Bushnell Insurance:SELF PAY [facility] Number: Effective Repository Date:2017-08-02 07/26/2017 CHARISSA K Primary CHARISSA K Rigoberto [id number] Insurance:MEDICARE MON[place]DOB: Community [place] [facility] [id number] Hospital [place] Number: Repository [address]Mfi: (100) [phone]-AEffectiv [phone] () e Date:2017-07-05 07/26/2017 Secondary CHARISSA K Rigoberto Insurance:AARPPolicy MONTGOMERYDOB: Community Number: [id number] Hospital [id number] Repository Date:5784-82-48WQ [address]AHJKVHH, [place] [address]HG: 07/26/2017 Tertiary NOT GIVENUNK Bushnell Insurance:SELF PAY Community [facility] Number: Effective Repository Date:2017-07-05 07/26/2017 CHARISSA K Primary CHARISSA K Rigoberto [id number] Insurance:MEDICARE [place]DOB: Community [place] [facility] [id number] [place] Number: Repository [address]Hoc: [phone]) [id number] [phone] () Date:2017-07-05 07/26/2017 Secondary CHARISSA K [place] Insurance:AARPPolicy MONTGOMERYDOB: Community Number: [id number] Hospital [id number] Repository Date:0995-71-95HA [address]IAGPIZG, [place] [address]JK: 07/26/2017 Tertiary NOT GIVENUNK Bushnell Insurance:SELF PAY [facility] Number: Effective Repository Date:2017-07-26 07/24/2017 CHARISSA K Primary CHARISSA K [place]nell [id number] Insurance:MEDICARE [place]DOB: Community [place] [facility] [id number] Number: Repository [address]Zqh: [phone]-AEffectiv [phone] () e Date:2017-07-24 07/24/2017 Secondary CHARISSA K Rigoberto Insurance:AARPPolicy MONTGOMERYDOB: Community Number: [id number] Hospital [id number] Repository Date:1275-45-69FD [address]PGWFDME, [place] [address]PW: 07/24/2017 Tertiary NOT GIVENUNK Rigoberto Insurance:SELF PAY [facility] Number: Effective Repository Date:2017-07-24 07/19/2017 CHARISSA K Primary CHARISSA K [place]nell [id number] Insurance:MEDICARE [place]DOB: Community [place] [facility] [id number] Number: Repository [address]Gwr: (761) [id number] [phone] (HP) Date:2017-07-05 07/19/2017 Secondary CHARISSA K Bushnell Insurance:AARPPolicy VITOMERYDOB: Community Number: [id number] Hospital [id number] Repository Date:0362-35-95[facility] 465721ADXCQVA, [place] [address]UH: 07/19/2017 Tertiary NOT GIVENUNK Rigoberto Insurance:SELF PAY [facility] Number: Effective Repository Date:2017-07-19 07/12/2017 CHARISSA K Primary CHARISSA K [place] [id number] Insurance:MEDICARE [place]DOB: Community [place] [facility] [id number] Number: Repository [address]Its: 330 [id number] [phone] () Date:2017-07-05 07/12/2017 Secondary CHARISSA K [place] Insurance:AARPPolicy VITOMERYDOB: Community Number: [id number] Hospital [id number] Repository Date:2200-24-88[address]BTSSHCY, [place] [address]UU: 07/12/2017 Tertiary NOT GIVENUNK Bushnell Insurance:SELF PAY [facility] Hospital Number: Effective Repository Date:2017-07-12 07/05/2017 CHARISSA K Primary CHARISSA K Rigoberto [id number] Insurance:MEDICARE [place]OM[place]DOB: Community [place] [facility] [id number] Memorial Hospital [place] Number: Repository [address]Rhu: 330 [id number] [phone] () Date:2017-07-05 07/05/2017 Secondary CHARISSA K Rigoberto Insurance:AARPPolicy MONTGOMERYDOB: Community Number: [id number] Hospital [id number] Repository Date:6564-64-34B[facility] [address]3030UHZBPII, [place] [address]ND: 07/05/2017 Tertiary NOT GIVENUNK Rigoberto Insurance:SELF PAY [facility] Number: Effective Repository Date:2017-07-05
== END 2018-05-17 18:15 | disposition home health service (06) | DRG 571 ==
LOC: SDC 11:33
PROVIDERS: Admitting Provider Surgery; Family Provider Family Medicine Geriatric Medicine; PCP Family Medicine Geriatric Medicine; Referring Provider Surgery
DX: L89.154 Pressure ulcer of sacral region, stage 4 (principal); M46.28 Osteomyelitis of vertebra, sacral and sacrococcygeal region; D62 Acute posthemorrhagic anemia; I10 Essential (primary) hypertension; E03.9 Hypothyroidism, unspecified; F32.9 Major depressive disorder, single episode, unspecified; G62.9 Polyneuropathy, unspecified; I36.1 Nonrheumatic tricuspid (valve) insufficiency; I27.21 Secondary pulmonary arterial hypertension; K21.9 Gastro-esophageal reflux disease without esophagitis; Z87.891 Personal history of nicotine dependence
CPT/HCPCS: 36415; 74176; 80048; 84134; 85014; 85018; 85027; 86850; 86900; 86920; 86922; 87070; 87075; 87077; 87102; 87186; 87205; 87206; 88305; 88311; 97162; 97165; J7040; J7120; P9016; A4216; J0295; J2405

== ENCOUNTER 2018-05-29 09:00 | Outpatient (RCR) | payer MEDICARE, OTHER, SELFPAY ==
[2018-05-04 00:46] VITALS: BP 134/70; PULSE 93; RESP 16; TEMP 36.9
[2018-05-14 12:15] VITALS: BMI 34.8
[2018-05-22 09:09] VITALS: BP 160/100; PULSE 104; RESP 18; TEMP 36.1; BMI 34.8
--- NOTE | 2018-05-22 12:04 | PCM.WC.PN ---
(1) Surgical wound present Status: Acute Current Visit: Yes Code(s): T14.8XXA - Other injury of unspecified body region, initial encounter (2) Pressure ulcer of sacral region, stage 4 Status: Chronic Current Visit: Yes Code(s): L89.154 - Pressure ulcer of sacral region, stage 4 Type of Wound Chief Complaint: Sacral pressure sore, Stage IV. History of Wound: Patient comes in for further evaluation of her sacral pressure sore. I initially saw her in August. A CT was done which showed no evidence of osteomyelitis, but did show evidence of a colovaginal fistula. The fistula was surgically repaired in December at [facility]. She had a sacral wound culture done on 01/02/18 and it showed Staphylococcus aureus. She was treated with antibiotics. She was recently discharged from a half-way. She is also being treated for a nonhealing abdominal wall wound from her surgery in December. She had a recent abdominal wall wound culture done on 03/06/18 which showed Staphylococcus aureus and was placed on antibiotics. I was asked to evaluate her sacral pressure sore for surgical options for treatment. Progress of Wound: Ms. Chavez presents for follow-up after recent surgical debridement of nonhealing stage IV sacral ulcer. After debridement, she had a wound VAC applied. She denies any concerns with the wound VAC on the wound. She also denies any concerning discharge or drainage. - Physical Exam Vital Signs Temp Pulse Resp BP 96.9 F L 104 H 18 160/100 H 05/22/18 09:09 05/22/18 09:09 05/22/18 09:09 05/22/18 09:09 General: Alert, Oriented x3, Cooperative, No apparent distress HEENT: Atraumatic, Normocephalic Oral: Moist Mucosa Neck: Supple Lungs: Normal air movement Extremities: No cyanosis Skin: Ulcer/ Wound Wound Measurements and Assessment WC - Nurse 1 - General Ulcer Measurement Start: 05/22/18 09:08 Freq: Status: Active Protocol: Activity Type Activity Date Activity User E-Sign Co-Sign Detail Recorded Client Recorded Date Recorded By Document 05/22/18 09:09 [id number] 05/22/18 09:21 05/22/18 09:09 Wound Center Nurse 1 [Ulcer Assessment] #5 sacrum -Combined with other wound No -Current Size (cm) - Length 6.2 -Current Size (cm) - Width 11.5 -Current Size (cm) - Depth 3.6 -Total Square Cm 71.30 -Date of Last Picture (Recall this 05/22/18 field) -Photo Taken Yes -Epithelialization None Present -Tunneling No -Undermining/Tunneling No -Circular Undermining Yes -Exudate Amt Large (67-100%) -Exudate Type Serosanguineous -Wound Margin Distinct, Outline Attached -Granulation Amt Medium (34-66%) -Granulation Quality Red -Slough/Fibrin Yes -Necrosis Amt Medium (34-66%) -Necrotic Tissue Type Adherent Slough -Structure Exposed Bone -Texture (Amanda-wound Skin Appearance) Scarring -Moisture (Amanda-wound Skin Appearance Maceration ) -Color (Amanda-wound Skin Appearance) No Abnormality Assessed -Temperature (Amanda-wound Skin No Abnormality Appearance) (Pt Warm) -Tenderness on Palpation (Amanda-wound Yes Skin Appearance) -Ulcer Cleansing soap -Foul Odor after Cleansing No -Anesthetic Used 5% Lidocaine Gel [Edema Assessment] -Lower Limb Edema Present NA WC - Nurse 2 - General Ulcer CM Notes Start: 05/22/18 09:08 Freq: Status: Active Protocol: Activity Type Activity Date Activity User E-Sign Co-Sign Detail Recorded Client Recorded Date Recorded By Document 05/22/18 09:32 MW [id number] 05/22/18 09:36 MW 05/22/18 09:32 Wound Center Nurse 2 [Procedure/Treatment] #5 sacrum -Time 09:32 -Correct Patient Yes -Correct Side, Site, Position Yes -Correct Procedure Yes -Procedure Performed Yes -Type of Procedure Debridement -Clinical Debridement Muscle -Post Debridement Size (cm) - Length 6.0 -Post Debridement Size (cm) - Width 11.5 -Post Debridement Size (cm) - Depth 4.1 -Total Square Cm 69.00 -Wound/Ulcer Outcome Not Healed -Ulcer Cleansing Rinsed/ Irrigated with Saline -Foul Odor after Cleansing No -Bioengineered Tissue No -Bleeding Controlled with Pressure -Offloading No -Treatment Response Procedure Tolerated Well [See Physician Procedure note for Specifics] Pain Scale: 0-10 Numeric [Pain] -Is Patient Pain Free? Yes Musculoskeletal: No Muscle Wasting Neurological: Cranial nerves II-XII grossly intact Psych/Mental Status: Normal Affect Debridement Note Post-Debridement Measurements/Treatment WC - Nurse 2 - General Ulcer CM Notes Start: 05/22/18 09:08 Freq: Status: Active Protocol: Activity Type Activity Date Activity User E-Sign Co-Sign Detail Recorded Client Recorded Date Recorded By Document 05/22/18 09:32 MW [id number] 05/22/18 09:36 MW 05/22/18 09:32 Wound Center Nurse 2 #5 sacrum -Time 09:32 -Correct Patient Yes -Correct Side, Site, Position Yes -Correct Procedure Yes -Procedure Performed Yes -Type of Procedure Debridement -Clinical Debridement Muscle -Post Debridement Size (cm) - Length 6.0 -Post Debridement Size (cm) - Width 11.5 -Post Debridement Size (cm) - Depth 4.1 -Total Square Cm 69.00 -Wound/Ulcer Outcome Not Healed -Ulcer Cleansing Rinsed/ Irrigated with Saline -Foul Odor after Cleansing No -Bioengineered Tissue No -Bleeding Controlled with Pressure -Offloading No -Treatment Response Procedure Tolerated Well Pain Scale: 0-10 Numeric Is Patient Pain Free? Yes Wound debrided: Sacral Wound Grade/Stage: Stage IV Type of Debridement: Excisional debridement Anesthesia Used: 4% Lidocaine Solution Depth: Down to and including healthy tissue, to muscle Percentage of wound debrided: 100 Instrument Used: 7mm curette Tissue Removed: Slough and devitalized tissue Severity: Fat Layer Exposed Amount of bleeding with debridement: Mild Bleeding Controlled with: Compression and gauze Patient tolerated procedure well Assessment/Plan Active Problems (Last Reviewed 05/16/18 @ 14:58 by Raúl Villareal DO) Surgical wound present (Acute) Pressure ulcer of sacral region, stage 4 (Chronic) Assessment: 1. Sacral pressure sore, Stage IV. 2. Surgical wound post debridement of sacral pressure ulcer. 3. s/p repair colovaginal fistula. Plan: Doing well status post recent hospital admission for surgical debridement of sacral ulcer. Wound VAC currently at 125 mmHg. Debridement done as documented above. Procedure was well-tolerated. Continue wound VAC and increased to 150 mmHg. Adaptic over exposed bone. Increased protein intake recommended. Advised to call with any questions or concerns. Scheduled to follow-up with Dr. Hansen on 10 June. All her questions were answered and she was asked to call with any further questions or concerns. Follow-up 1 week. This note was generated with [employer] software. It may contain incorrect words, spelling, and punctuation that were not noted in checking the note before signing.
--- NOTE | 2018-05-22 12:09 | PN.PCM_ITS ---
(1) Surgical wound present Status: Acute Current Visit: Yes Code(s): T14.8XXA - Other injury of unspecified body region, initial encounter (2) Pressure ulcer of sacral region, stage 4 Status: Chronic Current Visit: Yes Code(s): L89.154 - Pressure ulcer of sacral region, stage 4 Type of Wound Chief Complaint: Sacral pressure sore, Stage IV. History of Wound: Patient comes in for further evaluation of her sacral pressure sore. I initially saw her in August. A CT was done which showed no evidence of osteomyelitis, but did show evidence of a colovaginal fistula. The fistula was surgically repaired in December at [facility]. She had a sacral wound culture done on 01/02/18 and it showed Staphylococcus aureus. She was treated with antibiotics. She was recently discharged from a longterm. She is also being treated for a nonhealing abdominal wall wound from her surgery in December. She had a recent abdominal wall wound culture done on 03/06/18 which showed Staphylococcus aureus and was placed on antibiotics. I was asked to evaluate her sacral pressure sore for surgical options for treatment. Progress of Wound: Ms. Chavez presents for follow-up after recent surgical debridement of nonhealing stage IV sacral ulcer. After debridement, she had a wound VAC applied. She denies any concerns with the wound VAC on the wound. She also denies any concerning discharge or drainage. - Physical Exam Vital Signs Temp Pulse Resp BP 96.9 F L 104 H 18 160/100 H 05/22/18 09:09 05/22/18 09:09 05/22/18 09:09 05/22/18 09:09 General: Alert, Oriented x3, Cooperative, No apparent distress HEENT: Atraumatic, Normocephalic Oral: Moist Mucosa Neck: Supple Lungs: Normal air movement Extremities: No cyanosis Skin: Ulcer/ Wound Wound Measurements and Assessment WC - Nurse 1 - General Ulcer Measurement Start: 05/22/18 09:08 Freq: Status: Active Protocol: Activity Type Activity Date Activity User E-Sign Co-Sign Detail Recorded Client Recorded Date Recorded By Document 05/22/18 09:09 [id number] 05/22/18 09:21 05/22/18 09:09 Wound Center Nurse 1 [Ulcer Assessment] #5 sacrum -Combined with other wound No -Current Size (cm) - Length 6.2 -Current Size (cm) - Width 11.5 -Current Size (cm) - Depth 3.6 -Total Square Cm 71.30 -Date of Last Picture (Recall this 05/22/18 field) -Photo Taken Yes -Epithelialization None Present -Tunneling No -Undermining/Tunneling No -Circular Undermining Yes -Exudate Amt Large (67-100%) -Exudate Type Serosanguineous -Wound Margin Distinct, Outline Attached -Granulation Amt Medium (34-66%) -Granulation Quality Red -Slough/Fibrin Yes -Necrosis Amt Medium (34-66%) -Necrotic Tissue Type Adherent Slough -Structure Exposed Bone -Texture (Amanda-wound Skin Appearance) Scarring -Moisture (Amanda-wound Skin Appearance Maceration ) -Color (Amanda-wound Skin Appearance) No Abnormality Assessed -Temperature (Amanda-wound Skin No Abnormality Appearance) (Pt Warm) -Tenderness on Palpation (Amanda-wound Yes Skin Appearance) -Ulcer Cleansing soap -Foul Odor after Cleansing No -Anesthetic Used 5% Lidocaine Gel [Edema Assessment] -Lower Limb Edema Present NA WC - Nurse 2 - General Ulcer CM Notes Start: 05/22/18 09:08 Freq: Status: Active Protocol: Activity Type Activity Date Activity User E-Sign Co-Sign Detail Recorded Client Recorded Date Recorded By Document 05/22/18 09:32 MW [id number] 05/22/18 09:36 MW 05/22/18 09:32 Wound Center Nurse 2 [Procedure/Treatment] #5 sacrum -Time 09:32 -Correct Patient Yes -Correct Side, Site, Position Yes -Correct Procedure Yes -Procedure Performed Yes -Type of Procedure Debridement -Clinical Debridement Muscle -Post Debridement Size (cm) - Length 6.0 -Post Debridement Size (cm) - Width 11.5 -Post Debridement Size (cm) - Depth 4.1 -Total Square Cm 69.00 -Wound/Ulcer Outcome Not Healed -Ulcer Cleansing Rinsed/ Irrigated with Saline -Foul Odor after Cleansing No -Bioengineered Tissue No -Bleeding Controlled with Pressure -Offloading No -Treatment Response Procedure Tolerated Well [See Physician Procedure note for Specifics] Pain Scale: 0-10 Numeric [Pain] -Is Patient Pain Free? Yes Musculoskeletal: No Muscle Wasting Neurological: Cranial nerves II-XII grossly intact Psych/Mental Status: Normal Affect Debridement Note Post-Debridement Measurements/Treatment WC - Nurse 2 - General Ulcer CM Notes Start: 05/22/18 09:08 Freq: Status: Active Protocol: Activity Type Activity Date Activity User E-Sign Co-Sign Detail Recorded Client Recorded Date Recorded By Document 05/22/18 09:32 MW [id number] 05/22/18 09:36 MW 05/22/18 09:32 Wound Center Nurse 2 #5 sacrum -Time 09:32 -Correct Patient Yes -Correct Side, Site, Position Yes -Correct Procedure Yes -Procedure Performed Yes -Type of Procedure Debridement -Clinical Debridement Muscle -Post Debridement Size (cm) - Length 6.0 -Post Debridement Size (cm) - Width 11.5 -Post Debridement Size (cm) - Depth 4.1 -Total Square Cm 69.00 -Wound/Ulcer Outcome Not Healed -Ulcer Cleansing Rinsed/ Irrigated with Saline -Foul Odor after Cleansing No -Bioengineered Tissue No -Bleeding Controlled with Pressure -Offloading No -Treatment Response Procedure Tolerated Well Pain Scale: 0-10 Numeric Is Patient Pain Free? Yes Wound debrided: Sacral Wound Grade/Stage: Stage IV Type of Debridement: Excisional debridement Anesthesia Used: 4% Lidocaine Solution Depth: Down to and including healthy tissue, to muscle Percentage of wound debrided: 100 Instrument Used: 7mm curette Tissue Removed: Slough and devitalized tissue Severity: Fat Layer Exposed Amount of bleeding with debridement: Mild Bleeding Controlled with: Compression and gauze Patient tolerated procedure well Assessment/Plan Active Problems (Last Reviewed 05/16/18 @ 14:58 by Raúl Villareal DO) Surgical wound present (Acute) Pressure ulcer of sacral region, stage 4 (Chronic) Assessment: 1. Sacral pressure sore, Stage IV. 2. Surgical wound post debridement of sacral pressure ulcer. 3. s/p repair colovaginal fistula. Plan: Doing well status post recent hospital admission for surgical debridement of sacral ulcer. Wound VAC currently at 125 mmHg. Debridement done as documented above. Procedure was well-tolerated. Continue wound VAC and increased to 150 mmHg. Adaptic over exposed bone. Increased protein intake recommended. Advised to call with any questions or concerns. Scheduled to follow-up with Dr. Hansen on 10 June. All her questions were answered and she was asked to call with any further questions or concerns. Follow-up 1 week. This note was generated with [employer] software. It may contain incorrect words, spelling, and punctuation that were not noted in checking the note before signing.
[2018-05-29 08:50] VITALS: BP 139/97; PULSE 105; RESP 20; TEMP 36; BMI 34.8
--- NOTE | 2018-05-29 10:43 | PCM.WC.PN ---
(1) Surgical wound present Status: Acute Current Visit: Yes Code(s): T14.8XXA - Other injury of unspecified body region, initial encounter (2) Pressure ulcer of sacral region, stage 4 Status: Chronic Current Visit: Yes Code(s): L89.154 - Pressure ulcer of sacral region, stage 4 Type of Wound Chief Complaint: Sacral pressure sore, Stage IV. History of Wound: Patient comes in for further evaluation of her sacral pressure sore. I initially saw her in August. A CT was done which showed no evidence of osteomyelitis, but did show evidence of a colovaginal fistula. The fistula was surgically repaired in December at [facility]. She had a sacral wound culture done on 01/02/18 and it showed Staphylococcus aureus. She was treated with antibiotics. She was recently discharged from a fdc. She is also being treated for a nonhealing abdominal wall wound from her surgery in December. She had a recent abdominal wall wound culture done on 03/06/18 which showed Staphylococcus aureus and was placed on antibiotics. I was asked to evaluate her sacral pressure sore for surgical options for treatment. Progress of Wound: Stable. No new concerns at this time. Scheduled to go back to the hospital for PICC line due to osteomyelitis. - Physical Exam Vital Signs Temp Pulse Resp BP 96.8 F L 105 H 20 H 139/97 H 05/29/18 08:50 05/29/18 08:50 05/29/18 08:50 05/29/18 08:50 General: Alert, Oriented x3, Cooperative, No apparent distress HEENT: Atraumatic, Normocephalic Oral: Moist Mucosa Neck: Supple Abdomen: Non Tender, Obese Skin: Ulcer/ Wound Wound Measurements and Assessment WC - Nurse 1 - General Ulcer Measurement Start: 05/22/18 09:08 Freq: Status: Active Protocol: Activity Type Activity Date Activity User E-Sign Co-Sign Detail Recorded Client Recorded Date Recorded By Document 05/29/18 08:50 [place] [id number] 05/29/18 09:13 [place] 05/29/18 08:50 Wound Center Nurse 1 [Ulcer Assessment] #5 sacrum -Combined with other wound No -Current Size (cm) - Length 4.8 -Current Size (cm) - Width 11.5 -Current Size (cm) - Depth 3.2 -Total Square Cm 55.20 -Photo Taken No -Epithelialization None Present -Undermining/Tunneling Yes -Undermining/Tunneling Starts (O' 1 clock) -Undermining/Tunneling Ends (O'clock) 11 -Maximum Distance (cm) 4 -Circular Undermining No -Classification - Thickness Full Thickness with Exposed Support Structure -Classification - Pressure Ulcer Stage 4 -Change in Wound Grade/Stage No Query Text:If change please identify the Stage/Grade in the comment (ie. S2 G3) -Exudate Amt Medium (34-66%) -Exudate Type Serosanguineous -Wound Margin Distinct, Outline Attached -Granulation Amt None Present (0 %) -Granulation Quality N/A -Slough/Fibrin Yes -Necrosis Amt Small (1-33%) -Necrotic Tissue Type Necrosis of Bone -Structure Exposed Fat Layer Exposed -Texture (Amanda-wound Skin Appearance) No Abnormality -Moisture (Amanda-wound Skin Appearance No Abnormality ) -Color (Amanda-wound Skin Appearance) No Abnormality -Temperature (Amanda-wound Skin No Abnormality Appearance) (Pt Warm) -Tenderness on Palpation (Amanda-wound Yes Skin Appearance) -Ulcer Cleansing Rinsed/ Irrigated with Saline -Foul Odor after Cleansing No -Anesthetic Used 4% Lidocaine Solution WC - Nurse 2 - General Ulcer CM Notes Start: 05/22/18 09:08 Freq: Status: Active Protocol: Activity Type Activity Date Activity User E-Sign Co-Sign Detail Recorded Client Recorded Date Recorded By Document 05/29/18 09:29 [place] [id number] 05/29/18 09:36 [place] 05/29/18 09:29 Wound Center Nurse 2 [Procedure/Treatment] -Time 09:30 -Correct Patient Yes -Correct Side, Site, Position Yes -Correct Procedure Yes -Procedure Performed Yes -Type of Procedure Debridement -Clinical Debridement Muscle -Post Debridement Size (cm) - Length 5.0 -Post Debridement Size (cm) - Width 11.0 -Post Debridement Size (cm) - Depth 4.0 -Total Square Cm 55.00 -Wound/Ulcer Outcome Not Healed -Ulcer Cleansing Rinsed/ Irrigated with Saline -Foul Odor after Cleansing No -Bioengineered Tissue No -Topical Lidocaine (%) 4 -Lidocaine (ml) 25 -Offloading Yes -Treatment Response Procedure Tolerated Well [See Physician Procedure note for Specifics] Pain Scale: 0-10 Numeric [Pain] -Is Patient Pain Free? No [Location] SACRUM -Description Sharp Burning Aching -Intensity 8 Query Text:If >3, intervention needed -Radiation Location N/A -Duration (hours) Chronic -Pain Behavior Moaning Facial Grimacing -Pain Aggravating Factors Sitting Debridement -Alleviating Factors/Interventions Medication -Effectiveness of Alleviating Factor/ Minimally Intervention effective Musculoskeletal: No Muscle Wasting Neurological: Cranial nerves II-XII grossly intact Psych/Mental Status: Normal Affect Debridement Note Post-Debridement Measurements/Treatment WC - Nurse 2 - General Ulcer CM Notes Start: 05/22/18 09:08 Freq: Status: Active Protocol: Activity Type Activity Date Activity User E-Sign Co-Sign Detail Recorded Client Recorded Date Recorded By Document 05/22/18 09:32 MW [id number] 05/22/18 09:36 MW Document 05/29/18 09:29 JS [id number] 05/29/18 09:36 JS 05/22/18 05/29/18 09:32 09:29 Wound Center Nurse 2 #5 sacrum -Time 09:32 09:30 -Correct Patient Yes Yes -Correct Side, Site, Position Yes Yes -Correct Procedure Yes Yes -Procedure Performed Yes Yes -Type of Procedure Debridement Debridement -Clinical Debridement Muscle Muscle -Post Debridement Size (cm) - Length 6.0 5.0 -Post Debridement Size (cm) - Width 11.5 11.0 -Post Debridement Size (cm) - Depth 4.1 4.0 -Total Square Cm 69.00 55.00 -Wound/Ulcer Outcome Not Healed Not Healed -Ulcer Cleansing Rinsed/ Rinsed/ Irrigated with Irrigated with Saline Saline -Foul Odor after Cleansing No No -Bioengineered Tissue No No -Topical Lidocaine (%) 4 -Lidocaine (ml) 25 -Bleeding Controlled with Pressure -Offloading No Yes -Treatment Response Procedure Procedure Tolerated Well Tolerated Well Pain Scale: 0-10 Numeric Is Patient Pain Free? Yes No SACRUM -Description Sharp Burning Aching -Intensity 8 Query Text:If >3, intervention needed -Radiation Location N/A -Duration (hours) Chronic -Pain Behavior Moaning Facial Grimacing -Pain Aggravating Factors Sitting Debridement -Alleviating Factors/Interventions Medication -Effectiveness of Alleviating Factor/ Minimally Intervention effective Wound debrided: Sacral Wound Grade/Stage: Stage IV Type of Debridement: Excisional debridement Anesthesia Used: 4% Lidocaine Solution Depth: Down to and including healthy tissue, to muscle Percentage of wound debrided: 100 Instrument Used: 7mm curette Tissue Removed: Slough and devitalized tissue Severity: Fat Layer Exposed Amount of bleeding with debridement: Mild Bleeding Controlled with: Pressure Patient tolerated procedure well Assessment/Plan Active Problems (Last Reviewed 05/16/18 @ 14:58 by Raúl Villareal DO) Surgical wound present (Acute) Pressure ulcer of sacral region, stage 4 (Chronic) Assessment: 1. Sacral pressure sore, Stage IV. 2. Surgical wound post debridement of sacral pressure ulcer. 3. s/p repair colovaginal fistula. Plan: No complaints at this time. Scheduled to be readmitted today for PICC line placement due to osteomyelitis. Debridement done as documented above. Procedure was well-tolerated. Continue wound VAC at 150 mmHg. Adaptic over exposed bone. Increased protein intake recommended. Advised to call with any questions or concerns. Scheduled to follow-up with Dr. Hansen here at the wound center on 10 June. She however might see him during the hospital stay. All her questions were answered and she was asked to call with any further questions or concerns. Follow-up 2 weeks. This note was generated with [employer] software. It may contain incorrect words, spelling, and punctuation that were not noted in checking the note before signing.
--- NOTE | 2018-05-29 10:46 | PN.PCM_ITS ---
(1) Surgical wound present Status: Acute Current Visit: Yes Code(s): T14.8XXA - Other injury of unspecified body region, initial encounter (2) Pressure ulcer of sacral region, stage 4 Status: Chronic Current Visit: Yes Code(s): L89.154 - Pressure ulcer of sacral region, stage 4 Type of Wound Chief Complaint: Sacral pressure sore, Stage IV. History of Wound: Patient comes in for further evaluation of her sacral pressure sore. I initially saw her in August. A CT was done which showed no evidence of osteomyelitis, but did show evidence of a colovaginal fistula. The fistula was surgically repaired in December at [facility]. She had a sacral wound culture done on 01/02/18 and it showed Staphylococcus aureus. She was treated with antibiotics. She was recently discharged from a detention. She is also being treated for a nonhealing abdominal wall wound from her surgery in December. She had a recent abdominal wall wound culture done on 03/06/18 which showed Staphylococcus aureus and was placed on antibiotics. I was asked to evaluate her sacral pressure sore for surgical options for treatment. Progress of Wound: Stable. No new concerns at this time. Scheduled to go back to the hospital for PICC line due to osteomyelitis. - Physical Exam Vital Signs Temp Pulse Resp BP 96.8 F L 105 H 20 H 139/97 H 05/29/18 08:50 05/29/18 08:50 05/29/18 08:50 05/29/18 08:50 General: Alert, Oriented x3, Cooperative, No apparent distress HEENT: Atraumatic, Normocephalic Oral: Moist Mucosa Neck: Supple Abdomen: Non Tender, Obese Skin: Ulcer/ Wound Wound Measurements and Assessment WC - Nurse 1 - General Ulcer Measurement Start: 05/22/18 09:08 Freq: Status: Active Protocol: Activity Type Activity Date Activity User E-Sign Co-Sign Detail Recorded Client Recorded Date Recorded By Document 05/29/18 08:50 [place] [id number] 05/29/18 09:13 [place] 05/29/18 08:50 Wound Center Nurse 1 [Ulcer Assessment] #5 sacrum -Combined with other wound No -Current Size (cm) - Length 4.8 -Current Size (cm) - Width 11.5 -Current Size (cm) - Depth 3.2 -Total Square Cm 55.20 -Photo Taken No -Epithelialization None Present -Undermining/Tunneling Yes -Undermining/Tunneling Starts (O' 1 clock) -Undermining/Tunneling Ends (O'clock) 11 -Maximum Distance (cm) 4 -Circular Undermining No -Classification - Thickness Full Thickness with Exposed Support Structure -Classification - Pressure Ulcer Stage 4 -Change in Wound Grade/Stage No Query Text:If change please identify the Stage/Grade in the comment (ie. S2 G3) -Exudate Amt Medium (34-66%) -Exudate Type Serosanguineous -Wound Margin Distinct, Outline Attached -Granulation Amt None Present (0 %) -Granulation Quality N/A -Slough/Fibrin Yes -Necrosis Amt Small (1-33%) -Necrotic Tissue Type Necrosis of Bone -Structure Exposed Fat Layer Exposed -Texture (Amanda-wound Skin Appearance) No Abnormality -Moisture (Amanda-wound Skin Appearance No Abnormality ) -Color (Amanda-wound Skin Appearance) No Abnormality -Temperature (Amanda-wound Skin No Abnormality Appearance) (Pt Warm) -Tenderness on Palpation (Amanda-wound Yes Skin Appearance) -Ulcer Cleansing Rinsed/ Irrigated with Saline -Foul Odor after Cleansing No -Anesthetic Used 4% Lidocaine Solution WC - Nurse 2 - General Ulcer CM Notes Start: 05/22/18 09:08 Freq: Status: Active Protocol: Activity Type Activity Date Activity User E-Sign Co-Sign Detail Recorded Client Recorded Date Recorded By Document 05/29/18 09:29 [place] [id number] 05/29/18 09:36 [place] 05/29/18 09:29 Wound Center Nurse 2 [Procedure/Treatment] -Time 09:30 -Correct Patient Yes -Correct Side, Site, Position Yes -Correct Procedure Yes -Procedure Performed Yes -Type of Procedure Debridement -Clinical Debridement Muscle -Post Debridement Size (cm) - Length 5.0 -Post Debridement Size (cm) - Width 11.0 -Post Debridement Size (cm) - Depth 4.0 -Total Square Cm 55.00 -Wound/Ulcer Outcome Not Healed -Ulcer Cleansing Rinsed/ Irrigated with Saline -Foul Odor after Cleansing No -Bioengineered Tissue No -Topical Lidocaine (%) 4 -Lidocaine (ml) 25 -Offloading Yes -Treatment Response Procedure Tolerated Well [See Physician Procedure note for Specifics] Pain Scale: 0-10 Numeric [Pain] -Is Patient Pain Free? No [Location] SACRUM -Description Sharp Burning Aching -Intensity 8 Query Text:If >3, intervention needed -Radiation Location N/A -Duration (hours) Chronic -Pain Behavior Moaning Facial Grimacing -Pain Aggravating Factors Sitting Debridement -Alleviating Factors/Interventions Medication -Effectiveness of Alleviating Factor/ Minimally Intervention effective Musculoskeletal: No Muscle Wasting Neurological: Cranial nerves II-XII grossly intact Psych/Mental Status: Normal Affect Debridement Note Post-Debridement Measurements/Treatment WC - Nurse 2 - General Ulcer CM Notes Start: 05/22/18 09:08 Freq: Status: Active Protocol: Activity Type Activity Date Activity User E-Sign Co-Sign Detail Recorded Client Recorded Date Recorded By Document 05/22/18 09:32 MW [id number] 05/22/18 09:36 MW Document 05/29/18 09:29 JS [id number] 05/29/18 09:36 JS 05/22/18 05/29/18 09:32 09:29 Wound Center Nurse 2 #5 sacrum -Time 09:32 09:30 -Correct Patient Yes Yes -Correct Side, Site, Position Yes Yes -Correct Procedure Yes Yes -Procedure Performed Yes Yes -Type of Procedure Debridement Debridement -Clinical Debridement Muscle Muscle -Post Debridement Size (cm) - Length 6.0 5.0 -Post Debridement Size (cm) - Width 11.5 11.0 -Post Debridement Size (cm) - Depth 4.1 4.0 -Total Square Cm 69.00 55.00 -Wound/Ulcer Outcome Not Healed Not Healed -Ulcer Cleansing Rinsed/ Rinsed/ Irrigated with Irrigated with Saline Saline -Foul Odor after Cleansing No No -Bioengineered Tissue No No -Topical Lidocaine (%) 4 -Lidocaine (ml) 25 -Bleeding Controlled with Pressure -Offloading No Yes -Treatment Response Procedure Procedure Tolerated Well Tolerated Well Pain Scale: 0-10 Numeric Is Patient Pain Free? Yes No SACRUM -Description Sharp Burning Aching -Intensity 8 Query Text:If >3, intervention needed -Radiation Location N/A -Duration (hours) Chronic -Pain Behavior Moaning Facial Grimacing -Pain Aggravating Factors Sitting Debridement -Alleviating Factors/Interventions Medication -Effectiveness of Alleviating Factor/ Minimally Intervention effective Wound debrided: Sacral Wound Grade/Stage: Stage IV Type of Debridement: Excisional debridement Anesthesia Used: 4% Lidocaine Solution Depth: Down to and including healthy tissue, to muscle Percentage of wound debrided: 100 Instrument Used: 7mm curette Tissue Removed: Slough and devitalized tissue Severity: Fat Layer Exposed Amount of bleeding with debridement: Mild Bleeding Controlled with: Pressure Patient tolerated procedure well Assessment/Plan Active Problems (Last Reviewed 05/16/18 @ 14:58 by Raúl Villareal DO) Surgical wound present (Acute) Pressure ulcer of sacral region, stage 4 (Chronic) Assessment: 1. Sacral pressure sore, Stage IV. 2. Surgical wound post rodolfo ridement of sacral pressure ulcer. 3. s/p repair colovaginal fistula. Plan: No complaints at this time. Scheduled to be readmitted today for PICC line placement due to osteomyelitis. Debridement done as documented above. Procedure was well-tolerated. Continue wound VAC at 150 mmHg. Adaptic over exposed bone. Increased protein intake recommended. Advised to call with any questions or concerns. Scheduled to follow-up with Dr. Hansen here at the wound center on 10 June. She however might see him during the hospital stay. All her questions were answered and she was asked to call with any further questions or concerns. Follow-up 2 weeks. This note was generated with [employer] dictation software. It may contain incorrect words, spelling, and punctuation that were not noted in checking the note before signing.
--- OUTSIDE RECORDS SUMMARY | 2018-08-23 09:50 | XMS RPT_ITS ---
[...] GRISSINGER, Jaspal Unavailable . + [place] [address] FOUNTAIN, REMY Unavailable . + [place] [address] R Unavailable Unavailable Unavailable GRISSINGER, JASPAL Unavailable Unavailable + [place], ALEX Unavailable Unavailable + R Unavailable Unavailable Unavailable GRISSINGER, Jaspal Unavailable Unavailable + [place] [address] FOUNTAIN, REMY Unavailable Unavailable + [place] [address] R Unavailable Unavailable Unavailable GRISSINGER, Jaspal Unavailable Unavailable + [place] [address] F[place], REMY Unavailable Unavailable + [place] [address] R Unavailable Unavailable Unavailable GRISSINGER, Jaspal Unavailable Unavailable + [place] [address] F[place], REMY Unavailable Unavailable + [place] [address] R Unavailable Unavailable Unavailable GRISSINGER, Jaspal Unavailable Unavailable + [place] [address] F[place], REMY Unavailable Unavailable + [place] [address] R Unavailable Unavailable Unavailable GRISSINGER, Jaspal Unavailable Unavailable + [place] [address] F[place], REMY Unavailable Unavailable + [place] [address] R Unavailable Unavailable Unavailable GRISSINGER, Jaspal Unavailable Unavailable + [place] [address] F[place], REMY Unavailable Unavailable + [place] [address] R Unavailable Unavailable Unavailable GRISSINGER, Jaspal Unavailable Unavailable + [place] [address] F[place], REMY Unavailable Unavailable + [place] [address] R Unavailable Unavailable Unavailable GRISSINGER, Jaspal Unavailable Unavailable + [place] [address] F[place], REMY Unavailable Unavailable + [place] [address] R Unavailable Unavailable Unavailable GRISSINGER, JASPAL Unavailable Unavailable Unavailable GUNTER, CHARISSA Unavailable Unavailable Unavailable GRISSINGER, Jaspal Unavailable Unavailable + [place] [address] F[place], REMY Unavailable Unavailable + [place] [address] R Unavailable Unavailable Unavailable GRISSINGER, Jaspal Unavailable Unavailable + [place] [address] F[place], REMY Unavailable Unavailable + [place] [address] R Unavailable Unavailable Unavailable GRISSINGER, Jaspal Unavailable Unavailable + [place] [address] F[place], REMY Unavailable Unavailable + [place] [address] R Unavailable Unavailable Unavailable GRISSINGER, Jaspal Unavailable Unavailable + [place] [address] F[place], REMY Unavailable Unavailable + [place] [address] R Unavailable Unavailable Unavailable GRISSINGER, Jaspal Unavailable Unavailable + [place] [address] F[place], REMY Unavailable Unavailable + [place] [address] R Unavailable Unavailable Unavailable GRISSINGER, Jaspal Unavailable Unavailable + [place] [address] F[place], REMY Unavailable Unavailable + [place] [address] R Unavailable Unavailable Unavailable GRISSINGER, Jaspal Unavailable Unavailable + [place] [address] F[place], REMY Unavailable Unavailable + [place] [address] R Unavailable Unavailable Unavailable GRISSINGER, JASPAL Unavailable Unavailable Unavailable GUNTER, CHARISSA Unavailable Unavailable Unavailable GRISSINGER, Jaspal Unavailable Unavailable + [place] [address] F[place], REMY Unavailable Unavailable + [place] [address] R Unavailable Unavailable Unavailable GRISSINGER, Jaspal Unavailable Unavailable + [place] [address] F[place], REMY Unavailable Unavailable + [place] [address] R Unavailable Unavailable Unavailable GRISSINGER, Jaspal Unavailable Unavailable + [place] [address] [place], REMY Unavailable Unavailable + [place] [address] R Unavailable Unavailable Unavailable GRISSINGER, Jaspal Unavailable Unavailable + [place] [address] F[place], REMY Unavailable Unavailable + [place] [address] R Unavailable Unavailable Unavailable GRISSINGER, JASPAL Unavailable Unavailable Unavailable GUNTER, CHARISSA Unavailable Unavailable Unavailable GRISSINGER, JASPAL Unavailable Unavailable Unavailable GUNTER, CHARISSA Unavailable Unavailable Unavailable GRISSINGER, JASPAL Unavailable Unavailable Unavailable GUNTER, CHARISSA Unavailable Unavailable Unavailable GRISSINGER, Jaspal Unavailable Unavailable + [place] [address] FOUNTAIN, REMY Unavailable Unavailable + [place] [address] R Unavailable Unavailable Unavailable GRISSINGER, Jaspal Unavailable Unavailable + [place] [address] F[place], REMY Unavailable Unavailable + [place] [address] R Unavailable Unavailable Unavailable GRISSINGER, Jaspal Unavailable Unavailable + [place] [address] F[place], REMY Unavailable Unavailable + [place] [address] R Unavailable Unavailable Unavailable GRISSINGER, Jaspal Unavailable Unavailable + [place] [address] F[place], REMY Unavailable Unavailable + [place] [address] R Unavailable Unavailable Unavailable GRISSINGER, Jaspal Unavailable Unavailable + [place] [address] F[place], REMY Unavailable Unavailable + [place] [address] R Unavailable Unavailable Unavailable GRISSINGER, Jaspal Unavailable Unavailable + [place] [address] F[place], REMY Unavailable Unavailable + [place] [address] R Unavailable Unavailable Unavailable GRISSINGER, Jaspal Unavailable Unavailable + [place] [address] F[place], REMY Unavailable Unavailable + [place] [address] R Unavailable Unavailable Unavailable GRISSINGER, JASPAL Unavailable Unavailable Unavailable GUNTER, CHARISSA Unavailable Unavailable Unavailable GRISSINGER, Jaspal Unavailable Unavailable + [place] [address] F[place], REMY Unavailable Unavailable + [place] [address] R Unavailable Unavailable Unavailable GRISSINGER, Jaspal Unavailable Unavailable + [place] [address] F[place], REMY Unavailable Unavailable + [place] [address] R Unavailable Unavailable Unavailable GRISSINGER, Jaspal Unavailable Unavailable + [place] [address] F[place], REMY Unavailable Unavailable + [place] [address] R Unavailable Unavailable Unavailable GRISSINGER, Jaspal Unavailable Unavailable + [place] [address] FOUNT[place], REMY Unavailable Unavailable + [place] [address] R Unavailable Unavailable Unavailable GRISSINGER, Jaspal Unavailable Unavailable + [place] [address] FOUNT[place], REMY Unavailable Unavailable + [place] [address] R Unavailable Unavailable Unavailable GRISSINGER, Jaspal Unavailable Unavailable + [place] [address] FOUNT[place], REMY Unavailable Unavailable + [place] [address] R Unavailable Unavailable Unavailable GRISSINGER, Jaspal Unavailable Unavailable + [place] [address] FOUNT[place], REMY Unavailable Unavailable + [place] [address] R Unavailable Unavailable Unavailable GRISSINGER, Jaspal Unavailable Unavailable + [place] [address] F[place], REMY Unavailable Unavailable + [place] [address] R Unavailable Unavailable Unavailable GRISSINGER, Jaspal Unavailable Unavailable + [place] [address] FOUNT[place], REMY Unavailable Unavailable + [place] [address] R Unavailable Unavailable Unavailable GRISSINGER, Jaspal Unavailable Unavailable + [place] [address] F[place], REMY Unavailable Unavailable + [place] [address] R Unavailable Unavailable Unavailable GRISSINGER, Jaspal Unavailable Unavailable + [place] [address] F[place], REMY Unavailable Unavailable + [place] [address] R Unavailable Unavailable Unavailable GRISSINGER, Jaspal Unavailable Unavailable + [place] [address] F[place], REMY Unavailable Unavailable + [place] [address] R Unavailable Unavailable Unavailable GRISSINGER, Jaspal Unavailable Unavailable + [place] [address] F[place], REMY Unavailable Unavailable + [place] [address] R Unavailable Unavailable Unavailable FOUNTAIN, REMY Unavailable . + [place] [address] R Unavailable Unavailable Unavailable FOUNTAIN, REMY Unavailable . + [place] [address] R Unavailable Unavailable Unavailable Lashell Chavez Unavailable Unavailable + GRISSINGER, Jaspal Unavailable Unavailable + [place] [address] FOUNTAIN, REMY Unavailable Unavailable + [place] [address] R Unavailable Unavailable Unavailable FOUNT[place], REMY Unavailable . + [place] [address] R Unavailable Unavailable Unavailable R Unavailable Unavailable Unavailable GRISSINGER, JASPAL Unavailable Unavailable Unavailable LYRIC CHARISSA Unavailable Unavailable Unavailable FOUNT[place], REMY Unavailable . + [place] [address] R Unavailable Unavailable Unavailable FOUNTAIN, REMY Unavailable . + [place] [address] R Unavailable Unavailable Unavailable R Unavailable Unavailable Unavailable GRISSINGER, Jaspal Unavailable Unavailable + [place] [address] F[place], REMY Unavailable Unavailable + [place] [address] R Unavailable Unavailable Unavailable GRISSINGER, JASPAL/JAMES Unavailable [address] + [place] [address] FOUNT[place], REMY Unavailable Unavailable + [place] R Unavailable Unavailable Unavailable GRISSINGER, JASPAL/JAMES Unavailable [address] + [place] [address] FOUNTAIN, REMY Unavailable / + [place], [place] / R Unavailable Unavailable Unavailable FOUNTAIN, REMY Unavailable . + [place] [address] R Unavailable Unavailable Unavailable GRISSINGER, Jaspal Unavailable Unavailable + [place] [address] ISIDRO FOUNTAINI Unavailable Unavailable + [place] [address] R Unavailable Unavailable Unavailable GRISSINGER, JASPAL/JAMES Unavailable [address] + [place] [address] F[place]AIN REMY Unavailable Unavailable + [place], [place] R Unavailable Unavailable Unavailable GRISSINGER, JASPAL/JAMES Unavailable [address] + [place] [address] [place] REMY Unavailable / + [place], [place] / R Unavailable Unavailable Unavailable GRISSINGER, JASPAL/JAMES Unavailable [address] + [place] [address] F[place] REMY Unavailable Unavailable + [place] R Unavailable Unavailable Unavailable GRISSINGER, JASPAL/JAMES Unavailable [address] + [place] [address] ESSIE REMY Unavailable Unavailable + [place] R Unavailable Unavailable Unavailable GRISSINGER, JASPAL/JAMES Unavailable [address] + [place] [address] ESSIE REMY Unavailable Unavailable + [place] [...] Consulting Unavailable Slaby, Regino Admitting Unavailable Jopperi, Arúl Attending Unavailable Slaby, Regino Referring Unavailable Daniel, Chema Chi Primary Care Unavailable Jopperi, Ralú Consulting Unavailable Slaby, Regino Admitting Unavailable Jopperi, [...] Attending Unavailable Slaby, Regino Referring Unavailable Daniel, Hcema Chi Primary Care Unavailable Mohan, Jessica Consulting [...] Referring Unavailable Daniel, Chema Chi Admitting Unavailable Slaby, Regino Attending Unavailable Daniel, Chema Chi Primary Care Unavailable [place] Hansen Consulting Unavailable Jessica Preston Consulting Unavailable Daniel, Chema Chi Consulting Unavailable Oleghe, Efewongbe Attending Unavailable Daniel, [...] Chema Chi Primary Care Unavailable Nova Baez Referring Unavailable Oleghe, Efewongbe Attending Unavailable Oleghe, Efewongbe Referring Unavailable Daniel, Chema Chi Primary Care Unavailable Jessica Terrazas Attending Unavailable Daniel, Chema Chi Referring Unavailable Daniel, Chema Chi Primary Care Unavailable Maricel Miller PA-C Attending Unavailable Maricel Miller PA-C Referring Unavailable Jessica Terrazas Consulting Unavailable Oleghe, Efewongbe Attending Unavailable Oleghe, Efewongbe Referring Unavailable Jessica Terrazas Attending Unavailable Jessica Terrazas Referring Unavailable Daniel, Chema Chi Primary Care Unavailable Jessica Terrazas Attending Unavailable Kailynbugadiel Jessica Referring Unavailable Daniel, Chema Chi Primary Care Unavailable CebulJessica Consulting Unavailable Cebugadiel Jessica Attending Unavailable Cebul Jessica Referring Unavailable Daniel, Chema Chi Primary Care Unavailable Oleghe, Efewongbe Attending Unavailable Oleghe, Efewongbe Referring Unavailable Oleghe, Efewongbe Attending Unavailable Oleghe, Efewongbe Referring Unavailable Oleghe, Efewongbe Attending Unavailable Daniel, Chema Chi Primary Care Unavailable Oleghe, Efewongbe Attending Unavailable Oleghe, Efewongbe Referring Unavailable Oleghe, Efewongbe Attending Unavailable Oleghe, Efewongbe Referring Unavailable Cebugadiel Jessica Attending Unavailable Oleghe, Efewongbe Attending Unavailable Daniel, [...] Care Unavailable Oleghe, Efewongbe Attending Unavailable Daniel, [facility] Primary Care Unavailable Oleghe, Efewongbe Attending [...] Care Unavailable DeHorta, Raúl Consulting Unavailable Beatriz, [place] Attending Unavailable Daniel, Chema Chi Referring Unavailable Beatriz, Mitchell Attending Unavailable Daniel, Chema Chi Primary Care Unavailable Beatriz, Mitchell Referring Unavailable SlabRegnio santos Attending Unavailable SlabRegino santos Referring Unavailable Daniel, Chema Chi Primary Care Unavailable Jeanmarierttate Raúl Consulting Unavailable Regino Hansen Consulting Unavailable Beatriz, [place] Attending Unavailable Beatriz, Mitchell Referring Unavailable Daniel, [...] G89.18 - Other acute [place]o Hansen [facility] postprocedural pain / Community G89.18(ICD-10) Hospital Repository Unknown 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, 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, [facility]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 / Hospital L89.154(ICD-10) Repository Unknown E55.9 - Vitamin D Daniel, Chema Chi [facility] deficiency, unspecified Community / E55.9(ICD-10) Hospital Repository Unknown 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, 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, Community left eye, with retinal Hospital neovascularization / Repository H34.8121(ICD-10) Unknown I10 - Essential Daniel, Chema Chi [facility] (primary) hypertension Community / I10(ICD-10) Hospital Repository Unknown 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 / Hospital I27.21(ICD-10) Repository Unknown Z01.810 - Encounter for BeatrizEusebio pottsril [facility] preprocedural [facility] cardiovascular Hospital examination / Repository Z01.810(ICD-10) Unknown I35.9 - Nonrheumatic BeatrizEusebio pottsril Active [place] 8 aortic valve disorder, Community unspecified / Hospital I35.9(ICD-10) Repository Unknown T81.89XA - Other Oleghe, [facility] complications of [facility] procedures, not Hospital elsewhere classified, Repository initial encounter / T81.89XA(ICD-10) Unknown E66.01 - Morbid Oleghe, [facility] (severe) obesity due to [facility] excess calories / Hospital E66.01(ICD-10) Repository Admitting Follow-up / 145() TRASHASHA, Active [facility] [address] 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 / Hospital N82.4(ICD-10) Repository Admitting Other female TRAUGSATURNINO, Active [facility] 8 diagnosis intestinal-genital THO [facility] tract fistulae / [facility] N82.4(ICD-10) Center Repository Admitting Pre-operative WEINER, Active [facility] 8 diagnosis Consultation / 159() [facility] Repository Unknown N39.0 - Urinary tract Oleghe, [facility] infection, site not [facility] specified / Hospital N39.0(ICD-10) Repository Unknown R09.89 - Other Mk Jessica [facility] specified symptoms and Community signs involving the Hospital circulatory and Repository respiratory systems / R09.89(ICD-10) Unknown R82.90 - Unspecified Angeal PA-C, [facility] abnormal findings in [facility] urine / R82.90(ICD-10) Hospital Repository Unknown N89.8 - Other specified [place], [facility] noninflammatory Nova [facility] disorders of vagina / Hospital N89.8(ICD-10) Repository Unknown 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 1000 TYPE CODE TESTS RESULT OUT OF REFERENCE UNITS RANGE LAB L501.8820 5.0-15.0 ug/mL High VANCO, TROUGH 19.0 Result Comment: VANCOMYCIN STANDARED DRUG THERAPY TROUGH LEVEL: 5.0 - 15.0 mg/L VANCOMYCIN HIGH INTENSITY THERAPY TROUGH LEVEL: 15.0 - 20.0 mg/L High Intensity therapy recommended for serious life threatening infections include: - Meningitis -Endocarditis -Pneumonia (Ventilator/Healtcare Associated) -Sepsis PLEASE CONTACT PHARMACY SERVICES (#[id number]) FOR INTERPRETATION OF RESULTS. Performed By: #### L501.8820 #### [facility] [address] [place], [address] ERYTHROCYTE SED RATE Collected: 06/23/2018 Status: F Source: [place] 6:10 AM [facility] [place] TYPE CODE TESTS RESULT OUT OF RANGE REFERENCE UNITS LAB L102.0000 0-30 mm/hr High SED RATE 41 Performed By: #### L101.9900 #### [facility] [address] [place], [address] COMPREHENSIVE METABOLIC Collected: 06/23/2018 Status: F Source: [place] [facility] 6:10 AM [facility] [place] TYPE CODE TESTS RESULT OUT OF [...] 8 Performed By: #### L500.4050, L501.6710 #### [facility] [address] [place], [address] CRP Collected: 06/23/2018 Status: F Source: [place] 6:10 AM [facility] [place] TYPE CODE TESTS RESULT OUT OF RANGE REFERENCE UNITS LAB L501.6710 0.0-3.0 mg/L High 27.20 C-REACTIVE PROT Result Comment: C-Reactive Protein (CRP) provides useful information for the diagnosis, therapy and monitoring of inflammatory processes and associated diseases. For the evaluation of Relative Risk for Cardiovascular Disease, a High Sensitivity CRP (HSCRP) should be ordered. Performed By: #### L500.4050, L501.6710 #### [facility] [address] [place], [address] VANCOMYCIN, TROUGH Collected: 06/20/2018 Status: F Source: [place] LEVEL 9:10 AM [facility] [place] Order Comment: Comments: 06/20 @ 0930 [...] (Ventilator/Healtcare Associated) -Sepsis PLEASE CONTACT PHARMACY SERVICES (#[id number]) FOR INTERPRETATION OF RESULTS. Performed By: #### L501.8820 #### [facility] [address] [place], [address] BASIC METABOLIC Collected: 06/16/2018 Status: F Source: [place] PROFILE (BMP) 7:05 AM [facility] [place] TYPE CODE TESTS RESULT OUT OF [...] Performed By: #### L500.2500, L500.4050, L501.6710 #### [facility] [address] [place], [place], [id number] COMPREHENSIVE METABOLIC Collected: 06/16/2018 Status: F Source: [place] 7:05 AM [facility] [place] TYPE CODE TESTS RESULT OUT OF [...] Performed By: #### L500.2500, L500.4050, L501.6710 #### [facility] [address] [place], [address] CRP Collected: 06/16/2018 Status: F Source: [place] 7:05 AM [facility] [facility] [place] TYPE CODE TESTS RESULT OUT OF RANGE REFERENCE UNITS LAB L501.6710 0.0-3.0 mg/L High 10.70 C-REACTIVE PROT Result Comment: C-Reactive Protein (CRP) provides useful information for the diagnosis, therapy and monitoring of inflammatory processes and associated diseases. For the evaluation of Relative Risk for Cardiovascular Disease, a High Sensitivity CRP (HSCRP) should be ordered. Performed By: #### L500.2500, L500.4050, L501.6710 #### [facility] [address] [place], [address] ERYTHROCYTE SED RATE Collected: 06/16/2018 Status: F Source: [place] 7:05 [facility] [place] REPOS[facility]ORY TYPE CODE TESTS RESULT OUT OF RANGE REFERENCE UNITS LAB L102.0000 0-30 mm/hr High SED RATE 38 Performed By: #### L101.9900, L100.0100 #### [facility] [address] [place], [address] CBC W/DIFF, AUTOMATED Collected: 06/16/2018 Status: F Source: [place] 7:05 [facility] [place] REPOSITORY TYPE CODE TESTS RESULT OUT OF [...] RARE Performed By: #### L101.9900, L100.0100 #### [facility] [address] [place], [address] VANCOMYCIN, TROUGH Collected: 06/13/2018 Status: F Source: [place] LEVEL 9:20 AM [facility] Order Comment: Comments: Draw 30 minutes [...] (Ventilator/Healtcare Associated) -Sepsis PLEASE CONTACT PHARMACY SERVICES (#[id number]) FOR INTERPRETATION OF RESULTS. Performed By: #### L501.8820 #### [facility] [address] [place], [address] ERYTHROCYTE SED RATE Collected: 06/09/2018 Status: F Source: [place] 6:45 AM [facility] [place] [facility] [place] TYPE CODE TESTS RESULT OUT OF RANGE REFERENCE UNITS LAB L102.0000 0-30 mm/hr High SED RATE 42 Performed By: #### L101.9900, L100.0100 #### [facility] [address] [place], [address] CBC W/DIFF, AUTOMATED Collected: 06/09/2018 Status: F Source: [place] 6:45 AM [facility] [place] TYPE CODE TESTS RESULT OUT OF [...] RARE Performed By: #### L101.9900, L100.0100 #### [facility] [address] [place], [address] COMPREHENSIVE METABOLIC Collected: 06/09/2018 Status: F Source: [facility] 6:45 AM [facility] [place] TYPE CODE TESTS RESULT OUT OF [...] 7 Performed By: #### L500.4050, L501.6710 #### [facility] [address] [place], [address] CRP Collected: 06/09/2018 Status: F Source: [place] 6:45 AM [facility] [place] TYPE CODE TESTS RESULT OUT OF RANGE REFERENCE UNITS LAB L501.6710 0.0-3.0 mg/L High 11.50 C-REACTIVE PROT Result Comment: C-Reactive Protein (CRP) provides useful information for the diagnosis, therapy and monitoring of inflammatory processes and associated diseases. For the evaluation of Relative Risk for Cardiovascular Disease, a High Sensitivity CRP (HSCRP) should be ordered. Performed By: #### L500.4050, L501.6710 #### [facility] [address] [place], [address] VANCOMYCIN, TROUGH Collected: 06/08/2018 Status: F Source: [place] LEVEL 9:19 PM [facility] [facility] [place] Order Comment: Comments: Please draw 06/08 [...] (Ventilator/Healtcare Associated) -Sepsis PLEASE CONTACT PHARMACY SERVICES (#[id number]) FOR INTERPRETATION OF RESULTS. Performed By: #### L501.8820 #### [facility] [address] [place], [address] VANCOMYCIN, TROUGH Collected: 06/06/2018 Status: F Source: [place] LEVEL 10:18 AM [facility] [facility] [place] Order Comment: Comments: Please draw 06/06 [...] (Ventilator/Healtcare Associated) -Sepsis PLEASE CONTACT PHARMACY SERVICES (#[id number]) FOR INTERPRETATION OF RESULTS. Performed By: #### L501.8820 #### [facility] [address] [place], [address] CHEST 1 VIEW Observed: 06/06/2018 Status: F Source: [place] (PORTABLE) 8:17 AM [facility] [facility] Imaging Services [address] [place] [address] Chest 1 View (Portable) MR#: [id number] Acct: [id number] Name: CHARISSA GUNTER Rep #: [id number] : 1950 F 67 From: Fidel Rojas MD PCP: Chema Schmidt MD, Chi Status: ADM IN Study: Chest 1 View (Portable) Date of Exam: 06/06/18 Exam# [id number] Ordering Dr: Chema Schmidt MD STUDY: X-RAY [...] Fidel Rojas MD at 15:18 EST Tel [phone], Service support , CC: Chema Schmidt MD Executive Office Manager: Signed VANCOMYCIN, RANDOM Collected: 06/05/2018 Status: F Source: [place] LEVEL 7:10 AM [facility] [facility] [place] TYPE CODE TESTS RESULT OUT OF RANGE REFERENCE UNITS LAB L501.8850 0.0-15.0 ug/mL Normal VANCO, RANDOM 11.3 Result Comment: VANCOMYCIN STANDARD DRUG THERAPY: CRITICAL VALUE IS > 15.0 mg/L VANCOMYCIN HIGH INTENSITY THERAPY: CRITICAL VALUE IS > 20.0 mg/L PLEASE CONTACT PHARMACY SERVICES (#[id number]) FOR INTERPRETATION OF RESULTS. THIS RESULT DOES NOT REPRESENT A PEAK OR TROUGH LEVEL FOR THIS DRUG. Performed By: #### L501.8850 #### [facility] [address] [place], [address] DISCHARGE SUMMARY Observed: 06/04/2018 Status: F Source: [place] 6:42 PM [facility] Medical Records Department [address] [place] [address] Discharge Summary 06/01/18 1245 MR#: [id number] Acct: [id number] Name: CHARISSA GUNTER Rep #: [id number] : 1950 67 From: Regino Hansen MD PCP: Chema Schmidt MD, Chi Status: DIS IN Y Location: MD3 SZ671-2 Discharge Date and Diagnosis Date of Admission: [...] Imaging Results: None. 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 call [phone] for appt. Additional Instructions: Nursing to check CBC, CMP, ESR, CRP, Vancomycin Trough qweekly. Pharmacy to dose the Vancomycin. Disposition: Alf facility Minutes spent on discharge:: 35 Medical Necessity - Tobacco Use Smoking Status: Former smoker Meaningful Use Info Meaningful Use Diagnoses (Choose all that apply): None applicable 06/04/18 028 <Electronically signed by Regino Hansen MD> Date [facility]egino Hansen MD [facility] Signature (if applicable): Date CC: Brant Santiago MD; Regino Hansen MD; Jessica Preston MD; Chema Schmidt MD; [facility] Signed VANCOMYCIN, TROUGH Collected: 06/04/2018 Status: F Source: [place] LEVEL 5:31 PM [facility] [place] [facility] Order Comment: Time Medication is to [...] (Ventilator/Healtcare Associated) -Sepsis PLEASE CONTACT PHARMACY SERVICES (#[id number]) FOR INTERPRETATION OF RESULTS. Performed By: #### L501.8820 #### [facility] [address] [place], [address] HISTORY AND PHYSICAL Observed: 06/03/2018 Status: F Source: [place] EXAM 8:34 AM [facility] [place] [facility] Medical Records Department [address] [place] [address] History and Physical 06/01/18 1759 MR#: [id number] Acct: [id number] Name: CHARISSA GUNTER Rep #: [id number] : 1950 67 From: Chema Schmidt MD PCP: Chema Schmidt MD, Chi Status: ADM IN Location: [facility] TCU06-1 Problem List (1) Hypertension Status: Chronic (2) [...] was performed on April 12, 2017, at [facility]. Psychiatric History: Depression PSYCHIATRIST History: No pertinent PSYCHIATRIST history Lives: Alone Smoking Status: Former smoker [...] pressure ulcer, hospitalized for sacral osteomyelitis, requiring manager terminal intravenous antibiotics, admitted to TCU with debility, [...] 5MG 4x/day PRN, resident doing well with manager terminal chronic use, GDR clinically contraindicated. * Vitamin [...] 06/02/2018 Status: F Source: [place] 4:52 AM [facility] [place] [facility] Order Comment: SPECIMEN OBTAINED FROM LINE [...] SCANNED Performed By: #### L100.0100, L101.9900 #### [facility] [address] [place], [address] ERYTHROCYTE SED RATE Collected: 06/02/2018 Status: F Source: [place] 4:52 AM [facility] [place] [facility] Order Comment: SPECIMEN OBTAINED FROM LINE DRAW TYPE CODE TESTS RESULT OUT OF RANGE REFERENCE UNITS LAB L102.0000 0-30 mm/hr High SED RATE 55 Performed By: #### L100.0100, L101.9900 #### [facility] [address] [place], [address] COMPREHENSIVE METABOLIC Collected: 06/02/2018 Status: F Source: [facility] 4:52 AM [facility] [facility] Order Comment: SPECIMEN OBTAINED FROM LINE [...] 9 Performed By: #### L500.4050, L501.6710 #### [facility] [address] [place], [address] CRP Collected: 06/02/2018 Status: F Source: [place] 4:52 AM [facility] [facility] Order Comment: SPECIMEN OBTAINED FROM LINE [...] ordered. Performed By: #### L500.4050, L501.6710 #### [facility] [address] [place], [address] VANCOMYCIN, TROUGH Collected: 06/01/2018 Status: F Source: [place] LEVEL 3:35 PM [facility] [facility] TYPE CODE TESTS RESULT OUT OF RANGE REFERENCE UNITS LAB L501.8820 5.0-15.0 ug/mL Normal VANCO, TROUGH 14.1 Result Comment: VANCOMYCIN STANDARED DRUG THERAPY TROUGH LEVEL: 5.0 - 15.0 mg/L VANCOMYCIN HIGH INTENSITY THERAPY TROUGH LEVEL: 15.0 - 20.0 mg/L High Intensity therapy recommended for serious life threatening infections include: - Meningitis -Endocarditis -Pneumonia (Ventilator/Healtcare Associated) -Sepsis PLEASE CONTACT PHARMACY SERVICES (#[id number]) FOR INTERPRETATION OF RESULTS. Performed By: #### L501.8820 #### [facility] [address] [place], [address] TRANSFER TO [facility] Observed: 06/01/2018 Status: F Source: [facility] 12:44 PM [facility] [place] [facility] Medical Records Department [address] [facility] [place] [address] Transfer to Extended Care MR#: [id number] Acct: [id number] Name: CHARISSA GUNTER Rep #: [id number] : 1950 67 From: Regino Hansen MD PCP: Daniel MELISSA,Chema Gil Status: ADM IN CHARISSA GUNTER (Patient) (Health Ins. Claim No.) (Day of Discharge to Facility) Certification of patient admission REQUIRED AT TIME OF ADMISSION. I CERTIFY THAT POST-HOSPITAL ECF SERVICES ARE REQUIRED TO BE GIVEN ON AN IN-PATIENT BASIS BECAUSE OF THE ABOVE NAMED PATIENT'S NEED FOR GROUP HOME CARE ON A CONTINUING BASIS FOR THE CONDITION(S) FOR WHICH HE/SHE WAS RECEIVING IN-PATIENT HOSPITAL SERVICES PRIOR TO HIS/HER TRANSFER TO THE [facility]. 06/01/181243 <Electronically signed by Regino Hansen MD> Date [...] discharge from TCU at wound center. call [phone] for appt. 06/01/181243 <Electronically signed by Regino Hansen MD> Date Regino Hansen MD CC: Brant Santiago MD; Jessica Preston MD; Chema Schmidt MD; [facility] Signed CONSULTATION Observed: 05/31/2018 Status: F Source: [place] 1:39 PM [facility] [place] [facility] Medical Records Department [address] [place] [address] Consultation 05/31/18 1333 MR#: [id number] Acct: [id number] Name: CHARISSA GUNTER Rep #: [id number] : 1950 67 From: Jessica Preston MD PCP: Chema Schmidt MD, Chi Status: ADM IN Y Location: [facility] NJ473-0 Problem List (1) Acute osteomyelitis of sacrum [...] her there. Will follow, thank you, d/w case preparer and liner. 05/31/18 9834 <Electronically signed by Jessica Preston MD> Date Jessica Preston MD Cosigner Signature (if applicable): Date CC: Regino Hansen MD; Jessica Preston MD; Chema Schmidt MD Signed CBC-COMPLETE BLOOD CNT Collected: 05/31/2018 Status: F Source: [place] NO DIFF 3:30 AM [facility] TYPE CODE TESTS RESULT OUT OF [...] 9.0 Performed By: #### L100.0500, L100.4500 #### [facility] [address] [place], [place], [address] DIFFERENTIAL COMMENT Collected: 05/31/2018 Status: F Source: [place] 3:30 AM [facility] [place] [facility] TYPE CODE TESTS RESULT OUT OF RANGE REFERENCE UNITS LAB L100.4500 Normal SMEAR COMMENT SCAN Result Comment: ANISOCYTOSIS 1+ MICROCYTOSIS 1+ HYPOCHROMASIA 1+ POLYCHROMASIA 1+ Performed By: #### L100.0500, L100.4500 #### [facility] [address] [place], [address] VANCOMYCIN, TROUGH Collected: 05/31/2018 Status: F Source: [place] LEVEL 3:30 AM [facility] [facility] Order Comment: Time Medication is to [...] (Ventilator/Healtcare Associated) -Sepsis PLEASE CONTACT PHARMACY SERVICES (#[id number]) FOR INTERPRETATION OF RESULTS. Performed By: #### L501.8820 #### [facility] [address] [place], [address] BASIC METABOLIC Collected: 05/31/2018 Status: F Source: [place] PROFILE (BMP) 3:30 AM [facility] [place] TYPE CODE TESTS RESULT OUT OF [...] GAP 10 Performed By: #### L500.2500 #### [facility] [address] [place], [place], [address] BASIC METABOLIC Collected: 05/30/2018 Status: F Source: [place] PROFILE (BMP) 6:14 AM [facility] [place] [facility] Order Comment: SPECIMEN OBTAINED FROM LINE [...] Performed By: #### L500.2500, L100.0500, L100.4500 #### [facility] [address] [place], [place], [address] CBC-COMPLETE BLOOD CNT Collected: 05/30/2018 Status: F Source: [place] NO DIFF 6:14 AM [facility] [place] [facility] Order Comment: SPECIMEN OBTAINED FROM LINE [...] Performed By: #### L500.2500, L100.0500, L100.4500 #### [facility] [address] [place], [place], [address] DIFFERENTIAL COMMENT Collected: 05/30/2018 Status: F Source: [place] 6:14 AM [facility] [facility] [place] Order Comment: SPECIMEN OBTAINED FROM LINE DRAW TYPE CODE TESTS RESULT OUT OF RANGE REFERENCE UNITS LAB L100.4500 Normal SMEAR COMMENT SCAN Result Comment: ANISOCYTOSIS 1+ HYPOCHROMIA 1+ MICROCYTOSIS 1+ POLYCHROMASIA 1+ Performed By: #### L500.2500, L100.0500, L100.4500 #### [facility] [address] [place], [place], [address] ERYTHROCYTE SED RATE Collected: 05/29/2018 Status: F Source: [place] 12:50 PM [facility] [place] TYPE CODE TESTS RESULT OUT OF RANGE REFERENCE UNITS LAB L102.0000 0-30 mm/hr High SED RATE 45 Performed By: #### L101.9900, L100.0500, L100.4500 #### [facility] [address] [place], [place], [address] CBC-COMPLETE BLOOD CNT Collected: 05/29/2018 Status: F Source: [place] NO DIFF 12:50 PM [facility] [facility] [place] [facility] TYPE CODE TESTS RESULT OUT OF [...] Performed By: #### L101.9900, L100.0500, L100.4500 #### [facility] [address] [place], [place], [address] DIFFERENTIAL COMMENT Collected: 05/29/2018 Status: F Source: [place] 12:50 PM [facility] [place] [facility] TYPE CODE TESTS RESULT OUT OF RANGE REFERENCE UNITS LAB L100.4500 Normal SMEAR COMMENT Result Comment: SLIGHT THROMBOCYTOSIS Performed By: #### L101.9900, L100.0500, L100.4500 #### [facility] [address] [place], [place], [address] COMPREHENSIVE METABOLIC Collected: 05/29/2018 Status: F Source: [facility] 12:50 PM [facility] [facility] [place] TYPE CODE TESTS RESULT OUT OF [...] Performed By: #### L500.4050, L501.6710, L506.0500 #### [facility] [address] [place], [address] CRP Collected: 05/29/2018 Status: F Source: [place] 12:50 PM [facility] [place] [facility] TYPE CODE TESTS RESULT OUT OF RANGE REFERENCE UNITS LAB L501.6710 0.0-3.0 mg/L High 26.00 C-REACTIVE PROT Result Comment: C-Reactive Protein (CRP) provides useful information for the diagnosis, therapy and monitoring of inflammatory processes and associated diseases. For the evaluation of Relative Risk for Cardiovascular Disease, a High Sensitivity CRP (HSCRP) should be ordered. Performed By: #### L500.4050, L501.6710, L506.0500 #### [facility] [address] [place], [address] PREALBUMIN Collected: 05/29/2018 Status: F Source: [place] 12:50 PM [facility] [place] TYPE CODE TESTS RESULT OUT OF RANGE REFERENCE UNITS LAB L506.0500 20.0-40.0 mg/dL Normal PREALBUMIN 22.0 Performed By: #### L500.4050, L501.6710, L506.0500 #### [facility] [address] 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 She was recently discharged from a group home. I was asked to evaluate her sacral [...] Regino Hansen MD When: 3 weeks at [facility]. call [phone] for appt. Please Follow Up With: Brant Santiago MD When: sunday05/22/18 at [facility]. Please Follow Up With: Chema Schmidt Chi, [...] DO; Regino Hansen MD; Chema Schmidt MD; [facility] Signed OPERATIVE REPORT Observed: 05/20/2018 Status: F Source: [place] 5:15 PM [facility] [place] Medical Records Department [address] [place] [address] Operative Report 05/14/181903 MR#: [id number] Acct: [id number] Name: CHARISSA GUNTER Rep #: [id number] : 1950 67 From: Regino Hansen MD PCP: Chema Schmidt MD, Chi Status: DIS IN Y Location: [facility] DR327-0 Report of Operation Date of Procedure: 05/14/18 [...] antibiotics. She was recently discharged from a group home. I was asked to evaluate her sacral pressure sore for surgical options for treatment. Patient was informed of the risks and complications of the procedure including alternatives to surgery. These were discussed with the patient personally. Patient voices understanding and wishes to proceed. Size of defect sacral area - 10.5 x 6.5 x 2.5 cm. administrative manager: None Type of Anesthesia:: General Specimen's removed: [...] If pathology is positive for osteomyelitis, then shelter IV antibiotics would be needed through a [...] No Code Visit Surgery Charges CPT - 82353 ICD-10 - L89.154 05/20/18 1715 <Electronically signed by Regino Hansen MD> Date Regino Hansen MD CC: Brant Santiago MD; Raúl Villareal DO; Region Hansen MD; Chema Schmidt MD; [facility] Signed DISCHARGE INSTRUCTION Observed: 05/17/2018 Status: F Source: [place] 5:10 PM [facility] [place] [facility] Medical Records Department [address] [place] [address] Instructions for Home/Discharge Instructions 05/17/18 1704 MR#: [id number] Acct: [id number] Name: CHARISSA GUNTER Rep #: [id number] : 1950 67 From: Regino Hansen MD [...] When: 3 weeks at wound center. call [phone] for appt. Please Follow Up With: Brant Santiago MD When: sunday05/22/18 at wound [place]. Proposed Discharge Date: 05/17/18 05/17/18 1710 <Electronically signed by Regino Hansen MD> Date Regino Hansen MD CC: Brant Santiago MD; Raúl Villareal DO; Chema Schmidt MD; [facility] HH, HEMOGLOBIN AND Collected: 05/17/2018 Status: F Source: [place] HEMATOCRIT 12:10 PM [facility] [facility] TYPE CODE TESTS RESULT OUT OF RANGE REFERENCE UNITS LAB L100.1300 12.0-15.0 g/dl Low HGB 10.0 LAB L100.1400 37-47 % Low HCT 31.5 Performed By: #### L100.0600 #### [facility] [place], [place], [address] CBC-COMPLETE BLOOD CNT Collected: 05/17/2018 Status: F Source: [place] NO DIFF 5:25 AM [facility] TYPE CODE TESTS RESULT OUT OF [...] 9.2 Performed By: #### L100.0500, L100.4500 #### [facility] [address] [facility] [place], [place], [address] DIFFERENTIAL COMMENT Collected: 05/17/2018 Status: F Source: [place] 5:25 AM [facility] TYPE CODE TESTS RESULT OUT OF RANGE REFERENCE UNITS LAB L100.4500 Normal SMEAR COMMENT SCAN Result Comment: ANISOCYTOSIS 1+ MICROCYTOSIS 1+ HYPOCHROMIA 1+ POLYCHROMASIA 1+ Performed By: #### L100.0500, L100.4500 #### [facility] [address] [facility] [place], [place], [address] CONSULTATION Observed: 05/16/2018 Status: F Source: [place] 3:03 PM [facility] [place] [facility] Medical Records Department [address] [place] [address] Consultation 05/16/18 1451 MR#: [id number] Acct: [id number] Name: CHARISSA GUNTER Rep #: [id number] : 1950 67 From: Raúl Villareal DO PCP: Daniel MELISSA,Chema Chi Status: ADM IN Y Location: [place]3 LG604-2 Problem List (1) Acute blood loss anemia [...] was performed on April 12, 2017, at [facility]. Smoking Status: Former smoker - *Family History [...] hospitalization. Code Visit Inpatient E AND M: 65685 Init Hosp L2 05/16/18 1503 <Electronically signed by Raúl Villareal DO> Date Raúl Villareal DO Cosigner Signature (if applicable): Date CC: Raúl Villareal DO; Regino Hansen MD; Chema Schmidt MD Signed ABDOMEN/PELVIS WITHOUT Observed: 05/16/2018 Status: F Source: [place] CONT 10:31 AM [facility] Imaging Services [address] [place] [address] Abdomen/Pelvis without Cont MR#: [id number] Acct: [id number] Name: CHARISSA GUNTER Rep #: [id number] : 1950 F 67 From: Fidel Rojas MD PCP: Daniel MELISSA,Chema Gil Status: ADM IN Study: Abdomen/Pelvis without Cont Date of Exam: 05/16/18 Exam# [id number] Ordering Dr: Regino Hansen MD STUDY: CT [...] Fidel Rojas MD at 12:47 EST Tel [phone], Service support , CC: Regino Hansen MD; Chema Schmidt MD Executive Office Manager: Signed BASIC METABOLIC Collected: 05/16/2018 Status: F Source: [place] PROFILE (BMP) 1:30 AM [facility] TYPE CODE TESTS RESULT OUT OF [...] GAP 5 Performed By: #### L500.2500 #### [facility] [address] [place], [place], [address] CBC-COMPLETE BLOOD CNT Collected: 05/16/2018 Status: C Source: [place] NO DIFF 1:30 AM [facility] [facility] TYPE CODE TESTS RESULT OUT OF RANGE REFERENCE UNITS LAB L100.1000 4.4-11.0 K/mm3 High WBC 13.3 LAB L100.1200 4.2-5.4 M/mm3 Low RBC 2.82 LAB L100.1300 12.0-15.0 g/dl Low alert HGB 5.8 Result Comment: CRITICAL VALUE VERIFIED. [facility]242 Shreya Coppola. RESULTS READ BACK [...] October Performed By: #### L100.0500, L100.4500 #### [facility] [address] [place], [place], [address] DIFFERENTIAL COMMENT Collected: 05/16/2018 Status: F Source: [place] 1:30 AM [facility] TYPE CODE TESTS RESULT OUT OF RANGE REFERENCE UNITS LAB L100.4500 Normal SMEAR COMMENT SCANNED Result Comment: HYPOCHROMASIA 1+ POLYCHROMASIA 1+ RARE TARGET CELLS Performed By: #### L100.0500, L100.4500 #### [facility] [address] [place], [place], [address] TYPE AND SCREEN Collected: 05/16/2018 Status: F Source: [place] 1:30 AM [facility] Order Comment: CMV NEG? N Number [...] Y CRITICAL VALUE VERIFIED. CALLED TO [facility] 05/16/18 0310 Shreya Coppola. RESULTS READ BACK BY SAME . Give When? When Ready Irradiated? N Leukodepleted? Y Surgery Date: 05/14/18 Type of Surgery: OTHER TYPE CODE TESTS RESULT OUT OF RANGE REFERENCE UNITS LAB B10.0800 A Normal BLOOD TYPE GEL POSITIVE LAB B100.4000 Normal Antibody NEGATIVE Screen Performed By: #### B101.7450 #### [facility] [address] [place], [address] RC Collected: 05/16/2018 Status: F Source: [place] 1:30 AM [facility] TYPE CODE TESTS RESULT OUT OF REFERENCE UNITS RANGE LAB U100.0000 [id number] TRANSFUSED PRODUCT: T AND S with Crossmatch, Red Cells COUNT: 2 Performed By: #### U100.0000 #### [facility] - refer to report for specific site RC Collected: 05/16/2018 Status: F Source: [place] 1:30 AM [facility] TYPE CODE TESTS RESULT OUT OF REFERENCE UNITS RANGE LAB U100.0000 [id number] TRANSFUSED PRODUCT: T AND S with Crossmatch, Red Cells COUNT: 2 Performed By: #### U100.0000 #### [facility] - refer to report for specific site HISTORY AND PHYSICAL Observed: 05/15/2018 Status: F Source: [place] EXAM 11:51 PM [facility] Medical Records Department [address] [place] [address] History and Physical 05/14/18 0000 MR#: [id number] Acct: [id number] Name: CHARISSA GUNTER Rep #: [id number] : 1950 67 From: Regino Hansen MD PCP: Daniel MELISSA,Chema Gil Status: ADM IN Y Location: MD3 WL544-6 History and Physical Date of Admission: 05/14/18 [...] antibiotics. She was recently discharged from a group home. I was asked to evaluate her sacral [...] consistently because they are not visualized. 05/15/18 9738 <Electronically signed by Regino Hansen MD> Date Regino Hansen MD Cosigner Signature: Date (if applicable) CC: Brant Santiago MD; Regino Hansen MD; Chema Schmidt MD; [facility] Signed CBC-COMPLETE BLOOD CNT Collected: 05/15/2018 Status: F Source: [place] NO DIFF 5:28 AM [facility] TYPE CODE TESTS RESULT OUT OF [...] 9.4 Performed By: #### L100.0500, L100.4500 #### [facility] [address] [place], [place], [address] DIFFERENTIAL COMMENT Collected: 05/15/2018 Status: F Source: [place] 5:28 AM [facility] TYPE CODE TESTS RESULT OUT OF RANGE REFERENCE UNITS LAB L100.4500 Normal SMEAR COMMENT SCAN Result Comment: HYPHOCHROMIA 1+ MICROCYTOSIS 1+ POLYCHROMASIA 1+ ANISOCYTOSIS 1+ Performed By: #### L100.0500, L100.4500 #### [facility] [address] [place], [place], [address] BASIC METABOLIC Collected: 05/15/2018 Status: F Source: [place] PROFILE (BMP) 5:28 AM [facility] TYPE CODE TESTS RESULT OUT OF [...] 11 Performed By: #### L500.2500, L506.0500 #### [facility] [address] [place], [place], [address] PREALBUMIN Collected: 05/15/2018 Status: F Source: [place] 5:28 AM [facility] TYPE CODE TESTS RESULT OUT OF REFERENCE UNITS RANGE LAB L506.0500 20.0-40.0 mg/dL Low PREALBUMIN 19.3 Performed By: #### L500.2500, L506.0500 #### [facility] [address] [place], [address] PRESSURE SORE Observed: 05/14/2018 Status: F Source: [place] 1:25 PM [facility] Patient: CHARISSA GUNTER : 1950 (67/F) Acct Num: [id number] Phys: Raúl Villareal DO Unit Num: [id number] Loc: 3 GS145-5 Specimen: [id number] Received: 05/15/18 - 1102 Spec Type: PRESS [...] is noted. No mass lesion is identified. Social Media Executive sections are submitted in three cassettes. / SJ:andrew 05/15/18 TC :2 CPT: 91212 x2, 55613 HEADER OPERATION: Excision sacral pressure sore, partial [...] inflammation and granulation. AM:andrew 05/20/18 Signed Mello Valenzuela DO 05/21/18 <signature on file> Performed By: #### PPRES #### [facility] [address] [place], [address] Observed: 05/14/2018 Status: F Source: [place] CULTURE, DEEP WOUND 12:00 AM [facility] [place] [facility] Order Date: 01/03/17 Comments: Sacral Pressure [...] 1 S (NF) indicates non-formulary drug at [facility]. Approval by Infectious Disease Specialist required before non-formulary drugs may be ordered and/or dispensed. * CLSI guidelines does not recommend testing of cephalosporins. This interpretation is deduced from Beta-lactam/penicillin results. Cult, Anaerobic No growth in 5 days. Performed By: #### M100.1500, M600.1900 #### [facility] [facility] [address] [place], [address] Observed: 05/14/2018 Status: F Source: OLIVIA POSEY W/ 12:00 [facility] [id number] REPOSITORY Comments: Sacral Pressure Sore Tissue, Collected in OR Is this test to exclude patient from TB Isolation? N [place],[id number] TESTING PERFORMED AT [facility]. ORIGINAL REPORT ON FILE IN LAB CONTAINS ADDITIONAL TEST SITE INFORMATION. CUF No yeast or mold isolated after [address] TESTING PERFORMED AT [facility]. ORIGINAL REPORT ON FILE IN LAB CONTAINS ADDITIONAL TEST SITE INFORMATION. Fungus Stain No yeast or mold observed. Performed By: #### M100.1500, M600.1900 #### [facility] [address] [facility] [place], [address] Observed: 05/14/2018 Status: F Source: RIG[place]ERT[place] CULTURE, DEEP WOUND 12:00 AM [facility] [place] Order Date: 01/03/17 Comments: Sacral Pressure Sore Bone, Collected in [place] Gram Stain Gram Stain 3+ Red Blood Cells 1+ White Blood Cells No organisms seen Wound Culture There are no CLSI standards for interpretation of this Drug/Organism combination. ORGANISM 1: Corynebacterium minutissimum Amount Growth Very Rare Cult, Anaerobic No growth in 5 days. Performed By: #### M100.1500 #### [facility] [address] [place], [address] Observed: 05/14/2018 Status: F Source: RIGOBERTO GONZALES, FUNGUS W/ 12:00 AM [facility] [place] [id number] REPOSITORY Comments: Sacral Pressure Sore Bone, Collected in OR Is this test to exclude patient from TB Isolation? N Cu,[id number] [facility] ORIGINAL REPORT ON FILE IN LAB CONTAINS ADDITIONAL TEST SITE INFORMATION. CUF No yeast or mold isolated after [address] TESTING PERFORMED AT [facility]. ORIGINAL REPORT ON FILE IN LAB CONTAINS ADDITIONAL TEST SITE INFORMATION. Fungus Stain No yeast or mold observed. Performed By: #### M600.1900 #### [facility] [address] [place], [address] HIP, UNI W/ PELVIS Observed: 04/30/2018 Status: F Source: [place] 2-3 VIEWS 2:29 PM [facility] [place] [facility] Imaging Services [address] [facility] [place] [address] HIP, UNI W/ Pelvis 2-3 Views MR#: [id number] Acct: [id number] Name: CHARISSA GUNTER Rep #: [id number] : 1950 F 67 From: Vicki Kinsey MD PCP: Daniel MELISSA,Chema Gil Status: REG CLI Study: HIP, UNI W/ Pelvis 2-3 Views Date of Exam: 04/30/18 Exam# [id number] Ordering Dr: Chema Shcmidt MD STUDY: X-RAY - LEFT HIP REASON [...] Service support , CC: Chema Schmidt MD Executive Office Manager: Signed VITAMIN D,25 HYDROXY Collected: 04/30/2018 Status: F Source: RIGOBERTO 1:34 PM [facility] [place] Order Comment: DR SCHMIDT ORDERED VITD [...] (>250 nmol/L) Performed By: #### L506.1000 #### [facility] [address] [place] [address], [address] COMPREHENSIVE METABOLIC Collected: 04/30/2018 Status: F Source: RIGOBERTO PROFIL 1:34 PM [facility] Order Comment: DR SCHMIDT ORDERED VITD [...] 11 Performed By: #### L500.4050, L501.9520 #### [facility] [address] [place], [place], [address] THYROID STIM HORMONE Collected: 04/30/2018 Status: F Source: [place] (TSH) 1:34 PM [facility] [place] Order Comment: DR SCHMIDT ORDERED VITD CBCD CMP TSH DR BERGER ORDERED PT PTT DR ULLOA ORDERED CBC TSHReason for Laboratory Test PRE OP TYPE CODE TESTS RESULT OUT OF RANGE REFERENCE UNITS LAB L501.9520 0.358-3.74 uIU/mL Normal TSH 1.73 Performed By: #### L500.4050, L501.9520 #### [facility] [address] [place], [address] CBC W/DIFF, AUTOMATED Collected: 04/30/2018 Status: F Source: RIGOBERT[place] 1:34 PM [facility] [place] Order Comment: Reason for Laboratory Test [...] Normal 1+ Performed By: #### L100.0100 #### [facility] [address] [place], [address] PROTHROMBIN TIME W/INR Collected: 04/30/2018 Status: F Source: [place] 1:34 PM [facility] Order Comment: DR SCHMIDT ORDERED VITD CBCD CMP TSH DR BERGER ORDERED PT PTT DR ULLOA ORDERED CBC TSH TYPE CODE TESTS RESULT OUT OF RANGE REFERENCE UNITS LAB L300.4150 11.7-14.9 SECONDS Normal PROTIME 12.9 LAB L300.4200 Normal INR 1.0 Performed By: #### L300.3900, L300.4310 #### [facility] [address] [place] [place], [address] PARTIAL THROMBOPLAST Collected: 04/30/2018 Status: F Source: [place] TIME 1:34 PM [facility] Order Comment: DR SCHMIDT ORDERED VITD CBCD CMP TSH DR BERGER ORDERED PT PTT DR ULLOA ORDERED CBC TSH TYPE CODE TESTS RESULT OUT OF RANGE REFERENCE UNITS LAB L300.4310 24.1-36.2 Seconds Normal PTT 35.3 Performed By: #### L300.3900, L300.4310 #### [facility] [address] [place], [address] ECHOCARDIOGRAM COMPLETE Observed: 04/22/2018 Status: F Source: [place] 5:32 PM [facility] [place] [facility] Cardiovascular Services [address] [place] [address] Echo Complete 04/22/18 1352 MR#: [id number] Acct: [id number] Name: CHARISSA GUNTER Rep #: [id number] : 1950 67 From: Mitchell Henderson MD Attending Dr: Mitchell Henderson MD Status: REG CLI Ordering Dr: Mitchell Henderson MD Date: 04/22/18 Location: [facility] Sex: F C Admitted: Reason For Study: [...] Schmidt Chi Performed By: Shlomo Daniel RCS 04/22/181730 Date Mitchell Henderson MD CC: Mitchell Henderson MD; Chema Schmidt MD Date Dictated: 04/22/18 1352 Date Transcribed: 04/22/181730 Executive Office Manager: Signed HISTORY AND PHYSICAL Observed: 04/20/2018 Status: F Source: R[place]OB[place] EXAM 6:57 PM [facility] Medical Records Department [address] [place] [address] History and Physical 04/15/18 2328 MR#: [id number] Acct: [id number] Name: CHRAISSA GUNTER Rep #: [id number] : 1950 67 From: Regino Hansen MD PCP: Daniel MELISSA,Chema Gil Status: PRE [facility] [place] [place] Y Location: [facility] [place] [place] History and Physical Date of Admission: 04/16/18 [...] antibiotics. She was recently discharged from a group home. I was asked to evaluate her sacral [...] Status: F Source: [place] REPORT 3:14 PM [facility] [place] [facility] [address] [place] [address] OFFICE VISIT Date of Service: 04/19/18 MR#: [id number] Acct: [id number] Name: CHARISSA GUNTER Rep #: [id number] : 1950 Provider: Mitchell Henderson MD Age/Sex: 67/F Location[place] [facility] Status: Signed HPI HPI Chief Complaint: Follow [...] exam Z01.810 Aortic valve disease I35.9 04/19/18 0974 <Electronically signed by Mitchell Henderson MD> Date Mitchell Henderson MD Cosigner Signature: Date (if applicable) CC: Regino Hansen MD; Chema Schmidt MD 12 LEAD ELECTROCARDIOGRAM Observed: 04/15/2018 Status: F Source: [place] 2:34 PM [facility] [place] [facility] Cardiovascular Services [address] [place] [address] 12 Lead EKG 04/11/18 1322 MR#: [id number] Acct: [id number] Name: CHARISSA GUNTER Rep #: [id number] : 1950 67 From: Micheal Coffey MD Attending Dr: Jade MELISSA,Regino Status: PRE VTC Ordering Dr: Regino Hansen MD Date: 04/11/18 Location: [facility] [place] [place] Sex: F C Admitted: Test Reason : [...] Borderline ECG Confirmed by MICHEAL COFFEY ([id number]), non linear editor SARAH PANDA ([id number]) on 04/15/2018 2:33:28 PM Referred By: Regino Hansen Confirmed By:MICHEAL COFFEY 04/15/18 1433 Date Micheal Coffey MD CC: Regino Hansen MD; Chema Schmidt MD Signed CBC-COMPLETE BLOOD CNT Collected: 04/11/2018 Status: F Source: RIGOB[place] NO DIFF 12:59 PM [facility] [place] TYPE CODE TESTS RESULT OUT OF [...] 9.2 Performed By: #### L100.0500, L100.4500 #### [facility] [address] [place], [address] DIFFERENTIAL COMMENT Collected: 04/11/2018 Status: F Source: [place] 12:59 PM [facility] [place] TYPE CODE TESTS RESULT OUT OF RANGE REFERENCE UNITS LAB L100.4500 Normal SMEAR COMMENT SCANNED Result Comment: 1+ HYPOCHROMIA 1+ MICROCYTES Performed By: #### L100.0500, L100.4500 #### [facility] [address] [place], [address] THYROID STIM HORMONE Collected: 04/11/2018 Status: F Source: R[place] (TSH) 12:59 PM [facility] [place] TYPE CODE TESTS RESULT OUT OF RANGE REFERENCE UNITS LAB L501.9520 0.358-3.74 uIU/mL Normal TSH 1.69 Performed By: #### L501.9520 #### [facility] [address] [place], [address] Observed: 03/06/2018 Status: F Source: R[place] CULTURE, DEEP WOUND 9:35 AM [facility] [place] Gram Stain Gram Stain 1+ Red [...] 1 S (NF) indicates non-formulary drug at [facility]. Approval by Infectious Disease Specialist required before non-formulary drugs may be ordered and/or dispensed. * CLSI guidelines does not recommend testing of cephalosporins. This interpretation is deduced from Beta-lactam/penicillin results. Cult, Anaerobic No anaerobic bacteria isolated. Performed By: #### M100.1500 #### [facility] [address] [place], [address] Observed: 01/02/2018 Status: F Source: RIG[place] CULTURE, DEEP WOUND 12:25 PM [facility] [place] Comments: SACRAL ULCER Gram Stain Gram [...] <=0.5 S (NF) indicates non-formulary drug at [facility]. Approval by Infectious Disease Specialist required before non-formulary drugs may be ordered and/or dispensed. * CLSI guidelines does not recommend testing of cephalosporins. This interpretation is deduced from Beta-lactam/penicillin results. Cult, Anaerobic No anaerobic bacteria isolated. Performed By: #### M100.1500 #### [facility] [address] 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 Surgery was in 10 December. Status post surgery she had been in a group home. She has had routine dressings to her [...] was performed on April 12, 2017, at [facility]. Allergies/Adverse Reactions: Allergies bee venom protein (honey [...] Date Recorded By Document 12/26/17 11:41 RB [id number] 12/26/17 12:08 RB Wound Center Nurse 1 [...] Date Recorded By Document 12/26/17 12:34 CS [id number] 12/26/17 12:43 CS Wound Center Nurse 2 Musculoskeletal: No Muscle Wasting Neurological: Cranial nerves II-XII grossly intact Psych/Mental Status: Normal Affect Debridement Note Post-Debridement Measurements/Treatment WC - Nurse 2 - General Ulcer CM Notes Start: 12/26/17 11:35 Freq: Status: Active Protocol: Activity Type Activity Date Activity User E-Sign Co-Sign Detail Recorded Client Recorded Date Recorded By Document 12/26/17 12:34 [id number] 12/26/17 12:43 Wound Center Nurse 2 #6 lower mid [...] or concerns. This note was generated with Sanghvi dictation software. It may contain incorrect words, spelling, and punctuation that were not noted in checking the note before signing. 12/31/17 1620 <Electronically signed by Brant Santiago MD> Date Brant Santiago MD CC: Signed WOUND CTR HISTORY Observed: 12/31/2017 Status: F Source: [place] AND PHYSICAL 1:45 AM [facility] [place] [facility] W[facility] [address] [place] [address] Wound Ctr History AND Physical 08/06/17 2230 MR#: [id number] Acct: [id number] Name: CHARISSA GUNTER Rep #: [id number] : 1950 67 From: Regino Hansen MD PCP: Daniel MELISSA,Chema Gil Status: DIS RCR Y Location: History of Present Illness Date of Service: 08/06/17 - WOUND CENTER CONSULT REFERRING PHYSICIAN: Dr. Santiago. RESIDENT CARE SPEC: Dr. Hansen. Chief Complaint: Stage IV sacral [...] was performed on April 12, 2017, at [facility]. Allergies/Adverse Reactions: Allergies bee venom protein (honey [...] Recorded Date Recorded By Document 08/06/17 11:28 [facility] [id number] 08/06/17 11:43 [facility] Wound Center Nurse 1 [Ulcer Assessment] #3 sacrum -Combined with other wound No WC - Nurse 2 - General Ulcer CM Notes Start: 08/02/17 11:31 Freq: Status: Active Protocol: Activity Type Activity Date Activity User E-Sign Co-Sign Detail Recorded Client Recorded Date Recorded By Document 08/06/17 12:06 [id number] 08/06/17 12:22 Wound Center Nurse 2 [Procedure/Treatment] [...] 1 week. This note was generated with Sanghvi dictation software. It may contain incorrect words, spelling, and punctuation that were not noted in checking the note before signing. 12/31/17 0145 <Electronically signed by Regino Hansen MD> Date Regino Hansen MD CC: Signed HEMOGRAM (CBC AND Collected: 12/14/2017 Status: F Source: [facility]) 1:45 AM [facility] REPOSITORY TYPE CODE TESTS RESULT OUT [...] HEMOGC, CA, CHM7, IPB, MGO #### [facility] [address] [place] [address] [place] [address] CALCIUM Collected: 12/14/2017 Status: F Source: [facility] 1:45 [facility] REPOSITORY TYPE CODE TESTS RESULT OUT OF REFERENCE UNITS RANGE LAB CA 8.6-10.5 mg/dL Calcium 9.2 Performed By: #### HEMPAULC, CA, CHM7, IPB, MGO #### [facility] [address] [place] [address] [place] [address] CHEM 7 Collected: 12/14/2017 Status: F Source: [facility] 1:45 [facility] REPOSITORY TYPE CODE TESTS RESULT OUT OF [...] GFR >60 mL/min/1.73 sqM Est GFR,non >60 [place] [facility] GFRA >60 mL/min/1.73 sqM Est GFR, >60 Performed By: #### HEMOGC, CA, CHM7, IPB, MGO #### [facility] [address] [place] [address] [place] [address] INORGANIC PHOSPHATE Collected: 12/14/2017 Status: F Source: [facility] 1:45 [facility] REPOSITORY TYPE CODE TESTS RESULT OUT OF REFERENCE UNITS RANGE LAB IP 2.2-4.6 mg/dL Inorg Phosphate 3.9 Performed By: #### HEMOGC, CA, CHM7, IPB, MGO #### [facility] [address] [place] [address] [facility] [address] [place] [address] MAGNESIUM Collected: 12/14/2017 Status: F Source: [facility] 1:45 AM [facility] REPOSITORY TYPE CODE TESTS RESULT OUT OF REFERENCE UNITS RANGE LAB MG 1.6-2.6 mg/dL Magnesium 1.8 Performed By: #### HEMOGC, CA, CHM7, IPB, MGO #### [facility] [address] [place] [id number] [place] [address] [place] [address] HEMOGRAM (CBC AND Collected: 12/13/2017 Status: F Source: [facility] [place]) 3:27 AM [facility] REPOSITORY TYPE CODE TESTS RESULT OUT [...] HEMOGC, CA, CHM7, IPB, MGO #### [facility] [address] [place] [id number] [place] [address] [place] [address] CALCIUM Collected: 12/13/2017 Status: F Source: [facility] 3:27 AM [facility] REPOSITORY TYPE CODE TESTS RESULT OUT OF REFERENCE UNITS RANGE LAB CA 8.6-10.5 mg/dL Calcium 8.8 Performed By: #### HEMOGC, CA, CHM7, IPB, MGO #### [facility] [address] [place] [id number] [place] [address] [address] [place] [address] CHEM 7 Collected: 12/13/2017 Status: F Source: [facility] 3:27 AM [facility] REPOSITORY TYPE CODE TESTS RESULT OUT [...] GFR >60 mL/min/1.73 sqM Est GFR,non >60 [place] [facility] GFRA >60 mL/min/1.73 sqM Est GFR, >60 Performed By: #### HEMOGC, CA, CHM7, IPB, MGO #### [facility] [address] [place] [address] [place] [address] INORGANIC PHOSPHATE Collected: 12/13/2017 Status: F Source: [facility] 3:27 AM [facility] REPOSITORY TYPE CODE TESTS RESULT OUT OF REFERENCE UNITS RANGE LAB IP 2.2-4.6 mg/dL Inorg Phosphate 3.3 Performed By: #### HEMOGC, CA, CHM7, IPB, MGO #### [facility] [address] [place] [phone] [place] [address] [place] [address] MAGNESIUM Collected: 12/13/2017 Status: F Source: [facility] 3:27 AM [facility] REPOSITORY TYPE CODE TESTS RESULT OUT OF REFERENCE UNITS RANGE LAB MG 1.6-2.6 mg/dL Magnesium 1.9 Performed By: #### HEMOGC, CA, CHM7, IPB, MGO #### [facility] [address] [place] [address] [facility] [address] [place] [address] HEMOGRAM (CBC AND Collected: 12/12/2017 Status: F Source: [facility] [place]) 1:53 AM [facility] REPOSITORY TYPE CODE TESTS RESULT OUT [...] HEMOGC, CA, CHM7, IPB, MGO #### [facility] [address] [place], [place] [id number] [facility] [address] [place] [address] CALCIUM Collected: 12/12/2017 Status: F Source: [facility] 1:53 AM [facility] REPOSITORY TYPE CODE TESTS RESULT OUT OF REFERENCE UNITS RANGE LAB CA 8.6-10.5 mg/dL Low Calcium 8.5 Performed By: #### HEMOGC, CA, CHM7, IPB, MGO #### [facility] [address] [place] [address] [facility] [address] [place] [address] CHEM 7 Collected: 12/12/2017 Status: F Source: [facility] 1:53 AM [facility] REPOSITORY TYPE CODE TESTS RESULT OUT [...] GFR >60 mL/min/1.73 sqM Est GFR,non >60 [place] [facility] GFRA >60 mL/min/1.73 sqM Est GFR, >60 Performed By: #### HEMOGC, CA, CHM7, IPB, MGO #### [facility] [address] [place] [address] INORGANIC PHOSPHATE Collected: 12/12/2017 Status: F Source: [facility] 1:53 AM [facility] REPOSITORY TYPE CODE TESTS RESULT OUT OF REFERENCE UNITS RANGE LAB IP 2.2-4.6 mg/dL Inorg Phosphate 2.4 Performed By: #### HEMOGC, CA, CHM7, IPB, MGO #### [facility] [address] [place] [address] MAGNESIUM Collected: 12/12/2017 Status: F Source: [facility] 1:53 AM [facility] REPOSITORY TYPE CODE TESTS RESULT OUT OF REFERENCE UNITS RANGE LAB MG 1.6-2.6 mg/dL Magnesium 2.1 Performed By: #### HEMOGC, CA, CHM7, IPB, MGO #### [facility] [address] [address] HEMOGRAM (CBC AND Collected: 12/11/2017 Status: F Source: [facility] [place]) 2:15 AM [facility] REPOSITORY TYPE CODE TESTS RESULT OUT [...] #### HEMOGC, CA, CHM7, IPB, MGO #### [facility] [address] [place] [address] CALCIUM Collected: 12/11/2017 Status: F Source: [facility] 2:15 AM [facility] REPOSITORY TYPE CODE TESTS RESULT OUT OF REFERENCE UNITS RANGE LAB CA 8.6-10.5 mg/dL Calcium 8.7 Performed By: #### HEMOGC, CA, CHM7, IPB, MGO #### [facility] [address] [address] CHEM 7 Collected: 12/11/2017 Status: F Source: [facility] 2:15 AM [facility] REPOSITORY TYPE CODE TESTS RESULT OUT [...] GFR >60 mL/min/1.73 sqM Est GFR,non >60 [place] [facility] GFRA >60 mL/min/1.73 sqM Est GFR, >60 Performed By: #### HEMOGC, CA, CHM7, IPB, MGO #### [facility] [address] [place] [address] [address] [place] [address] INORGANIC PHOSPHATE Collected: 12/11/2017 Status: F Source: [facility] 2:15 AM [facility] REPOSITORY TYPE CODE TESTS RESULT OUT OF REFERENCE UNITS RANGE LAB IP 2.2-4.6 mg/dL Inorg Phosphate 3.6 Performed By: #### HEMOGC, CA, CHM7, IPB, MGO #### [facility] [address] [place] [address] MAGNESIUM Collected: 12/11/2017 Status: F Source: [facility] 2:15 AM [facility] REPOSITORY TYPE CODE TESTS RESULT OUT OF REFERENCE UNITS RANGE LAB MG 1.6-2.6 mg/dL Low Magnesium 1.5 Performed By: #### HEMOGC, CA, CHM7, IPB, MGO #### [facility] [address] [place] [address] SURGICAL PATHOLOGY Observed: 12/10/2017 Status: F Source: [facility] 7:59 AM [facility] REPOSITORY Surgical Pathology Report Patient Name: CHARISSA GUNTER [facility]. Rec #: [id number] Submitting Physician: THO MCGINNIS --- Clinical History --- Preoperative Diagnosis: Colovaginal fistula. N82.4. Medical History: Colovaginal fistula, urinary tract infection, sacral wound. ---Final Pathologic Diagnosis--- A. Left Colon (Partial Colectomy): - Segment of colon with multiple diverticula, with foci of transmural acute and chronic inflammation granulation tissue formation and fibrosis. - Serosal adhesions. [id number]:12/13/2017 Electronically Signed By Cari Munoz MD 12/13/2017 17:22:51 Professional Interpretation performed at location: [address] [place] [address] ---SPECIMEN(S) RECEIVED:--- SR A: Colon/Rectum, excision, not [...] not be present. Lab Use Only: JobID [id number] Gross description by: Leo Slater II Performed By: #### SURGP #### [facility] [address] [place] [id number] [place] [address] [place] [address] Observed: 11/26/2017 Status: F Source: [facility] TYPE AND CROSS - 3:15 PM [facility] PRE-OP [facility] REPOSITORY ABO/RH(D): A POSITIVE ANTIBODY SCREEN: NEGATIVE Performed By: #### XMPO #### [facility] [address] [place] [address] [facility] [address] [place], [place] [address] CBC WITH DIFF Collected: 11/26/2017 Status: F Source: [facility] GUSTAVO 2:44 PM [facility] REPOSITORY TYPE CODE TESTS RESULT OUT [...] Lymph 2.62 LAB AMONO 0.24-0.86 K/uL Abs [place] 1.21 High LAB AEOS <0.37 K/uL Abs Eos 0.08 LAB ABASO <0.09 K/uL Abs Baso 0.06 Performed By: #### CBCDFM, CHM7C #### [facility] [address] [place], [place] [address] #### FT4, TSH #### [facility] [address] [place] [address] [facility] [address] [place] [address] CHEM [address] - [address] Collected: 11/26/2017 Status: F Source: [facility] LAB 2:44 PM [facility] REPOSITORY TYPE CODE TESTS RESULT OUT [...] GFR >60 mL/min/1.73 sqM Est GFR,non >60 [place] [facility] GFRA >60 mL/min/1.73 sqM Est GFR, >60 LAB [facility] 278-305 mOsm/kg Osmolality 291 (Calc) Performed By: #### SHANDRADFSheila, CHM7C #### [facility] [address] [place], [place] [address] #### FT4, TSH #### [facility] [address] [place] [address] [place] [address] FREE T4 Collected: 11/26/2017 Status: F [facility]: [facility] [facility] 2:44 PM [facility] REPOSITORY TYPE CODE TESTS RESULT OUT OF RANGE REFERENCE UNITS LAB FT4 0.89-1.76 ng/dL Free T4 1.15 Performed By: #### CBCDFM, CHM7C #### [facility] [address] [place], [place] [address] #### FT4, TSH #### [facility] [address] [place] [address] [facility] [address] [place] [address] TSH, HIGH SENSITIVITY Collected: 11/26/2017 Status: F Source: [facility] 2:44 PM [facility] REPOSITORY TYPE CODE TESTS RESULT OUT OF REFERENCE UNITS RANGE LAB TSH 0.550-4.780 uIU/mL TSH, High Sensitivity 1.622 Performed By: #### CBCDFM, CHM7C #### [facility], [address] [place], [place] [address] #### FT4, TSH #### [facility] [address] [place] [address] [facility] [address] [place], [place] [address] Observed: 11/21/2017 Status: F Source: [place] CULTURE, URINE 1:46 PM [facility] Urine Culture ORGANISM 1: Presumptive E. coli [place] Count >100,000 Presumptive E. coli: REACTION Amoxacillin/Clavulanic [...] >=320 R (NF) indicates non-formulary drug at [facility]. Approval by Infectious Disease Specialist required before non-formulary drugs may be ordered and/or dispensed. Performed By: #### M100.0650 #### [facility] [address] [facility] [address] [place], [place], [address] PROTHROMBIN TIME W/INR Collected: 11/21/2017 Status: F Source: [place] 1:37 PM [facility] TYPE CODE TESTS RESULT OUT OF RANGE REFERENCE UNITS LAB L300.4150 11.7-14.9 SECONDS Normal PROTIME 13.3 LAB L300.4200 Normal INR 1.0 Performed By: #### L300.3900, L300.4310 #### [facility] [address] [place], [address] PARTIAL THROMBOPLAST Collected: 11/21/2017 Status: F Source: [place] TIME 1:37 PM [facility] [place] TYPE CODE TESTS RESULT OUT OF REFERENCE UNITS RANGE LAB L300.4310 24.1-36.2 Seconds High PTT 39.0 Performed By: #### L300.3900, L300.4310 #### [facility] [address], [address] CBC W/DIFF, AUTOMATED Collected: 10/22/2017 Status: F Source: [place] 12:07 PM [facility] [place] TYPE CODE TESTS RESULT OUT OF [...] Normal 2+ Performed By: #### L100.0100 #### [facility] [address] [facility] [place], [address] VITAMIN D,25 HYDROXY Collected: 10/22/2017 Status: F Source: [place] 12:07 [facility] REPOSITORY TYPE CODE TESTS RESULT OUT OF REFERENCE UNITS RANGE LAB L506.1000 29.95-100.01 ng/mL Low Vitamin D 27.9 25-OH Result Comment: Vitamin D 25(OH) Status Range Deficiency <20 ng/mL (50nmol/L) Insuffciency 20 - 30 ng/mL (50 - 75 nmol/L) Sufficiency 30 - 100 ng/mL (75 - 250 nmol/L) Toxicity >100 ng/mL (>250 nmol/L) Performed By: #### L506.1000 #### [facility] [address] [place], [address] COMPREHENSIVE METABOLIC Collected: 10/22/2017 Status: F Source: [facility] 12:07 PM [facility] TYPE CODE TESTS RESULT OUT OF [...] 7 Performed By: #### L500.4050, L501.9520 #### [facility] [address] [place], [place], [address] THYROID STIM HORMONE Collected: 10/22/2017 Status: F Source: [place] (TSH) 12:07 PM [facility] [place]POS[facility] TYPE CODE TESTS RESULT OUT OF RANGE REFERENCE UNITS LAB 01.9520 0.358-3.74 uIU/mL Normal TSH 1.24 Performed By: #### L500.4050, L501.9520 #### [facility] [address] [place], [address] Observed: 09/06/2017 Status: F Source: [place] CULTURE, URINE 1:07 PM [facility] Urine Culture ORGANISM 1: Presumptive E. coli [place] Count >100,000 Presumptive E. coli: REACTION Amoxacillin/Clavulanic [...] >=320 R (NF) indicates non-formulary drug at [facility]. Approval by Infectious Disease Specialist required before non-formulary drugs may be ordered and/or dispensed. Performed By: #### M100.0650 #### [facility] [address] [place], [address] CAROTID DUPLEX Observed: 08/27/2017 Status: F Source: [place] ULTRASOUND 4:03 PM [facility] Cardiovascular Services [address] [place] [address] Carotid Duplex Ultrasound 08/27/17 1301 MR#: [id number] Acct: [id number] Name: CHARISSA GUNTER Rep #: [id number] : 1950 67 From: Jessica Terrazas MD Attending Dr: Jessica Terrazas MD Status: REG CLI Ordering Dr: Jessica Terrazas MD Date: 08/27/17 Location: [facility] Sex: F C Admitted: Reason For Study: [...] the left vertebral artery. Procedure Carotid Duplex 10255. The exam was diagnostic. Exam performed in department. Interpretation Summary Minimal plague at the proximal right internal carotid with <50% stenosis. Normal flow right external carotid Minimal irregular plague at the proximal left internal carotid with <50% stenosis. Normal flow left external carotid Patent and antegrade vertebrals bilaterally. Ordering Physician: Jessica Terrazas Referring Physician: Chema Schmidt Chi Performed By: Jana Arriaga, RDCS, RVT 08/27/17 1602 Date Jessica Terrazas MD CC: Jessica Terrazas MD; Chema Schmidt MD Date Dictated: 08/27/17 1301 Date Transcribed: 08/27/17 1602 Executive Office Manager: Signed OPERATIVE REPORT Observed: 08/21/2017 Status: F Source: [place] 6:51 AM [facility] Medical Records Department [address] [place] [address] Operative Report 08/21/17 0644 MR#: [id number] Acct: [id number] Name: CHARISSA GUNTER Rep #: [id number] : 1950 67 From: Jessica Terrazas MD PCP: Daniel MELISSA,Chema Gil Status: [facility] [place] [place] Location: [place] [address]- Problem List (1) Colovaginal fistula Status: Acute [...] VISIT REPORT Observed: 08/09/2017 Status: F Source: [place] 6:43 PM [facility] [address] [facility] [address] [place] [address] OFFICE VISIT Date of Service: 08/09/17 MR#: [id number] Acct: [id number] Name: CHARISSA GUNTER Rep #: [id number] : 1950 Provider: Jessica Terrazas MD Age/Sex: 67/F Location: [facility] Status: Signed with Addenda ADDENDUM by [...] Consult Fistula Chief Complaint: possible colovaginal fistula Glassware Finisher Required: No Is patient in pain?: No [...] still potentially pending other evaluation. At the [facility] on May 02, 2017 she had a [...] acute distress Nutritional Appearance: obese Orientation: alert [facility] Head: normal to inspection Eyes General: appearance [...] Fistula involving female genital tract N82.9 08/09/17 4952 <Electronically signed by Jessica Terrazas MD> Date Jessica Terrazas MD [facility] Signature: Date (if applicable) CC: Regino Hansen MD; Chema Schmidt MD ABDOMEN/PELVIS WITH Observed: 08/09/2017 Status: F Source: [place] CONTRAST 1:28 PM [facility] Imaging Services [address] [place] [address] Abdomen/Pelvis WITH Contrast MR#: [id number] Acct: [id number] Name: CHARISSA GUNTER Rep #: [id number] : 1950 F 67 From: Dean Roman MD PCP: Chema Schmidt MD, Chi Status: REG CLI Study: Abdomen/Pelvis WITH Contrast Date of Exam: 08/09/17 Exam# [id number] Ordering Dr: Jessica Terrazas MD STUDY: CT [...] CC: Jessica Terrazas MD; Chema Schmidt MD Executive Office Manager: Signed URINALYSIS, COMPLETE Collected: 08/09/2017 Status: F Source: [place] 8:35 AM [facility] Order Comment: How was Urine Obtained? [...] MUCUS, URINE Performed By: #### L400.0001 #### [facility] [address] [facility] [place], [place], [address] Observed: 08/02/2017 Status: F Source: [place] CULTURE, GENITAL 5:37 PM [facility] REPOSITORY Gram Stain Gram Stain No Gram negative diplococci 1+ Gram negative rods 2+ Gram positive cocci No Yeast Like Organisms 3+ Epithelial cells 2+ White Blood Cells Gent Cult Comp No yeast, Gardnerella, Neisseria or beta-hemolytic Streptococcus isolated. ORGANISM 1: GPC Poss Enterococcus sp Amount Growth 2+ Performed By: #### M100.1600 #### [facility] [address] [place], [place], [address] DIE CUTTER OFFICE VISIT Observed: 08/02/2017 Status: F Source: [place] REPORT 2:32 PM [facility] [address] [place] [address] OFFICE VISIT Date of Service: 08/02/17 MR#: [id number] Acct: [id number] Name: CHARISSA GUNTER Rep #: [id number] : 1950 Provider: ROXI Baez Age/Sex: 67/F [place] [facility] [place]: Signed Intake Vital Signs08/02/17 Height 5 ft 4 in 08/02/17 Weight: 210 lb 08/02/17 Body Mass Index (BMI) 36.0 08/02/17 Blood Pressure 125/77 Intake Visit Reasons: DISCHARGE Chief Complaint: Discharge Glassware Finisher Required: No Is patient in pain?: No [...] Source: [place] CULTURE, DEEP WOUND 12:15 PM [facility] Comments: SACRUM ULCER Gram Stain Gram [...] 1 S (NF) indicates non-formulary drug at [facility]. Approval by Infectious Disease Specialist required [...] Anaerobic cocci Performed By: #### M100.1500 #### [facility] [place], [address] COMPREHENSIVE METABOLIC Collected: 07/24/2017 Status: F Source: [place] PROFIL 1:49 PM [facility] [place] TYPE CODE TESTS RESULT OUT OF [...] Performed By: #### L500.4050, L500.4100, L501.9520 #### [facility] [address] [place], [place], [address] LIPID PROFILE Collected: 07/24/2017 Status: F Source: [place] 1:49 PM [facility] TYPE CODE TESTS RESULT OUT OF [...] Performed By: #### L500.4050, L500.4100, L501.9520 #### [facility] [address] [place], [place], [address] THYROID STIM HORMONE Collected: 07/24/2017 Status: F Source: [place] (TSH) 1:49 PM [facility] [place] TYPE CODE TESTS RESULT OUT OF RANGE REFERENCE UNITS LAB L501.9520 0.358-3.74 uIU/mL Normal TSH 1.28 Performed By: #### L500.4050, L500.4100, L501.9520 #### [facility] [address] [place], [address] CBC W/DIFF, AUTOMATED Collected: 07/24/2017 Status: F Source: [place] 1:49 PM [facility] TYPE CODE TESTS RESULT OUT OF [...] Normal 2+ Performed By: #### L100.0100 #### [facility] [address] [place], [place], [address] VITAMIN D,25 HYDROXY Collected: 07/24/2017 Status: F Source: [place] 1:49 PM [facility] TYPE CODE TESTS RESULT OUT OF REFERENCE UNITS RANGE LAB L506.1000 19.95-100.01 ng/mL Low Vitamin D 18.7 25-OH Result Comment: Vitamin D 25(OH) Status Range Deficiency <20 ng/mL (50nmol/L) Insuffciency 20 - 30 ng/mL (50 - 75 nmol/L) Sufficiency 30 - 100 ng/mL (75 - 250 nmol/L) Toxicity >100 ng/mL (>250 nmol/L) Performed By: #### L506.1000 #### [facility] [address] [place], [address] Observed: 07/24/2017 Status: F Source: [place] CULTURE, URINE 1:49 PM [facility] Urine Culture ORGANISM 1: Presumptive E. coli [place] Count >100,000 Presumptive E. coli: REACTION Amoxacillin/Clavulanic [...] >=320 R (NF) indicates non-formulary drug at [facility]. Approval by Infectious Disease Specialist required before non-formulary drugs may be ordered and/or dispensed. Performed By: #### M100.0650 #### [facility] [facility] [address] [place], [place], [address] WOUND CTR HISTORY Observed: 07/06/2017 Status: F Source: [place] AND PHYSICAL 5:17 PM [facility] [address] [place] [address] Wound Ctr History AND Physical 07/05/17 1653 MR#: [id number] Acct: [id number] Name: CHARISSA GUNTER Rep #: [id number] : 1950 67 From: Brant Santiago MD [...] was performed on April 12, 2017, at [facility]. Allergies/Adverse Reactions: Allergies bee venom protein (honey [...] Date Recorded By Document 07/05/17 09:26 MW [id number] 07/05/17 09:36 MW Wound Center Nurse 1 [Ulcer Assessment Protocol: WC.WD.LOC] #3 sacrum -Combined with other wound No WC - Nurse 2 - General Ulcer CM Notes Start: 07/05/17 09:25 Freq: Status: Active Protocol: Activity Type Activity Date Activity User E-Sign Co-Sign Detail Recorded Client Recorded Date Recorded By Document 07/05/17 09:52 DV [id number] 07/05/17 10:09 DV Wound Center Nurse 2 [...] Date Recorded By Document 07/05/17 09:52 DV [id number] 07/05/17 10:09 DV Wound debrided: Sacral ulcer [...] 1 week. This note was generated with [employer]ation software. It may contain incorrect words, spelling, and punctuation that were not noted in checking the note before signing. 07/06/17 0721 <Electronically signed by Brant Santiago MD> Date Brant Santiago MD CC: Signed Observed: 07/05/2017 Status: F Source: [place] CULTURE, DEEP WOUND 10:00 AM [facility] Comments: RIGHT HEEL ULCER Gram Stain [...] 1 S (NF) indicates non-formulary drug at [facility]. Approval by Infectious Disease Specialist required [...] Anaerobic cocci Performed By: #### M100.1500 #### [facility] [address] [place], [address] ALLERGIES ALLERGIES DATE TYPE / CODE NAME / CODE REACTION SEVERITY SOURCE 04/19/2018 Drug metaxalone/F00 Swelling Unknown [facility] Allergy/127 2502383([facility] 738015([facility] ) Repository ED CT) 04/19/2018 Drug bee venom Angioedema Unknown [facility] Allergy/416 protein ([facility] 463845([facility] bee)/[id number] Repository ED CT) 5(RXNORM) ENCOUNTERS ENCOUNTERS ADMIT/DISCHARGE ACCOUNT NUMBER ADMITTING ENCOUNTER LOCATION SOURCE CLASS 06/10/2018 [id number] Ambulatory [facility] ding: Repository 06/01/2018 [id number] Daniel Chema Inpatient [facility] Encounter [facility] ding:TCURoom Repository : UYF35Lrr: 1 06/01/2018 [id number] Daniel Chema Ambulatory BMSBuilding: [place] Chi BMS.CF.[facility] Repository 05/29/2018/06/01/20 [id number] Regino Hansen Inpatient [address] ding:NB4Zvyx Repository : WW421Lzn: 1 05/29/2018 [id number] Regino Hansen Ambulatory BMSBuilding: [place] B[facility] Repository 05/29/2018 [id number] Regino Hansen Ambulatory BMSBuilding: [place] BMS.[facility] Repository 05/29/2018 [id number] Regino Hansen Ambulatory BMSBuilding: [place] [facility] Repository 05/29/2018 [id number] Regino Hansen Ambulatory BMSBuilding: [place] [facility] Repository 05/29/2018/06/03/20 [id number] Ambulatory [address] ding: Repository 05/22/2018 [id number] Ambulatory BMSBuilding: [facility] Repository 05/15/2018 [id number] Regino Hansen Ambulatory BMSBuilding: [place] BMS.[facility] Repository 05/15/2018 [id number] Regino Hansen Ambulatory BMSBuilding: [place] [facility]MS.[facility] Repository 05/15/2018 [id number] Regino Hansen Ambulatory BMSBuilding: [place] [facility] Repository 05/15/2018 [id number] Regino Hansen Ambulatory BMSBuilding: [place] [facility] Repository 05/15/2018 [id number] Regino Hansen Ambulatory BMSBuilding: [place] BMS.[facility] Repository 05/15/2018 [id number] Regino Hansen Ambulatory BMSBuilding: [place] BMS.CF.[facility] Repository 05/15/2018/05/17/20 [id number] Regino Hansen Inpatient [address] ding:OL6Zemj Repository : BX628Avt: 1 05/14/2018 [id number] Ambulatory BMSBuilding: [facility] Repository 05/08/2018 [id number] Ambulatory [facility] ding:PT Repository 05/01/2018 [id number] Ambulatory BMSBuilding: [facility] Repository 05/01/2018/05/03/20 [id number] Ambulatory [address] ding:WC Repository 04/30/2018 [id number] Ambulatory [facility] ding:RAD Repository 04/24/2018 [id number] Ambulatory BMSBuilding: [facility] Repository 04/22/2018 [id number] Ambulatory BMSBuilding: [place] BMS.CF.[facility] Repository 04/22/2018 [id number] Ambulatory [facility] ding:[facility] Repository 04/19/2018/04/19/20 [id number] Ambulatory BMSBuilding: [place] 18 BMS.[facility] Repository 04/16/2018 [id number] Ambulatory [facility] ding:SDC Repository 04/15/2018 [id number] Ambulatory BMSBuilding: [place] BMS.CF.[facility] Repository 04/10/2018 [id number] Ambulatory BMSBuilding: [facility] Repository 04/03/2018/04/03/20 [id number] Ambulatory [address] ding:WC Repository 04/03/2018 [id number] Ambulatory BMSBuilding: [facility] Repository 03/28/2018 [id number] Ambulatory [facility] ding:LAB.FUT Repository URE 03/27/2018 [id number] Ambulatory BMSBuilding: [facility] Repository 03/20/2018 [id number] Ambulatory BMSBuilding: [facility] Repository 03/11/2018 [id number] Ambulatory BMSBuilding: [facility].CF.[facility] Repository 03/06/2018 [id number] Ambulatory BMSBuilding: [facility] Repository 02/27/2018/03/03/20 [id number] Ambulatory [address] ding:WC Repository 02/27/2018 [id number] Ambulatory BMSBuilding: [facility] Repository 02/20/2018 [id number] Ambulatory BMSBuilding: [facility] Repository 02/19/2018 [id number] Ambulatory Building:[facility] Repository 02/13/2018 [id number] Ambulatory BMSBuilding: [facility] Repository 02/06/2018 [id number] Ambulatory BMSBuilding: [facility] Repository 01/31/2018 [id number] Ambulatory [facility] ding:LAB.FUT Repository URE 01/30/2018/02/02/20 [id number] Ambulatory [address] ding: Repository 01/30/2018 [id number] Ambulatory BMSBuilding: [facility] Repository 01/23/2018 [id number] Ambulatory BMSBuilding: [facility] Repository 01/16/2018 [id number] Ambulatory BMSBuilding: [facility] Repository 01/15/2018 [id number] Ambulatory Building:[facility] Repository 01/09/2018 [id number] Ambulatory BMSBuilding: [facility] Repository 01/02/2018 [id number] Ambulatory BMSBuilding: [facility] Repository 12/26/2017/01/02/20 [id number] Ambulatory [address] ding: Repository 12/26/2017 [id number] Ambulatory BMSBuilding: [facility] Repository 12/10/2017/12/15/19 [id number] RAS, Inpatient Building:[place] [address] THO L Encounter ERoom: University 1037Bed: A [facility] Repository 11/26/2017 [id number] Ambulatory Building:[facility] Repository 11/26/2017 [id number] Ambulatory Building:[facility] Repository 11/21/2017/12/02/19 [id number] Ambulatory [address] Hospital ding:WC Repository 11/14/2017 [id number] Ambulatory BMSBuilding: [facility] Repository 11/07/2017 [id number] Ambulatory BMSBuilding: [facility] Repository 10/31/2017/11/02/19 [id number] Ambulatory [address] ding: Repository 10/31/2017 [id number] Ambulatory BMSBuilding: [facility] Repository 10/24/2017 [id number] Ambulatory BMSBuilding: [facility] Repository 10/24/2017 [id number] Ambulatory BMSBuilding: [facility] Repository 10/23/2017 [id number] Ambulatory Building:[facility] Repository 10/22/2017 [id number] Ambulatory [facility] ding:POLAB3 Repository 10/17/2017 [id number] Ambulatory BMSBuilding: [facility] Repository 10/11/2017 [id number] Ambulatory BMSBuilding: [facility] Repository 10/04/2017 [id number] Ambulatory BMSBuilding: [facility] Repository 09/27/2017/10/02/19 [id number] Ambulatory [address] ding: Repository 09/27/2017 [id number] Ambulatory BMSBuilding: [facility] Repository 09/20/2017 [id number] Ambulatory BMSBuilding: [facility] Repository 09/06/2017 [id number] Ambulatory BMSBuilding: [facility] Repository 08/29/2017/09/02/19 [id number] Ambulatory [address] ding:WC Repository 08/29/2017 [id number] Ambulatory BMSBuilding: Rig[facility]to [facility] Repository 08/27/2017 [id number] Ambulatory [facility] Hospital ding:[facility] Repository 08/27/2017 [id number] Ambulatory BMSBuilding: [place] BMS.CF.[facility] Repository 08/23/2017 [id number] [facility] 08/21/2017/08/22/19 [id number] Ambulatory [address]to [address] Hospital ding:EN Repository 08/21/2017 [id number] Ambulatory BMSBuilding: [place] BMS.CF.[facility] Repository 08/19/2017 [id number] Ambulatory [facility] Repository 08/16/2017 [id number] Ambulatory BMSBuilding: [facility] Hospital Repository 08/09/2017 [id number] Ambulatory [facility] Hospital ding:CT Repository 08/09/2017 [id number] Ambulatory Building:[facility] Repository 08/09/2017 [id number] [facility] Repository 08/09/2017/08/10/19 [id number] Ambulatory BMSBuilding: [place] 18 BMS.[facility] Repository 08/06/2017 [id number] Ambulatory BMSBuilding: [place] BMS.CF.[facility] Repository 08/02/2017 [id number] Ambulatory [facility] Hospital ding:LABSPEC Repository 08/02/2017/08/03/19 [id number] Ambulatory BMSBuilding: Rigoberto 18 BMS.[facility] Repository 08/02/2017 [id number] [facility] 07/26/2017/08/01/19 [id number] Ambulatory [address] Hospital ding:WC Repository 07/26/2017 [id number] Ambulatory BMSBuilding: [facility] Hospital Repository 07/24/2017 [id number] Ambulatory [facility] Hospital ding:POLAB3 Repository 07/19/2017 [id number] Ambulatory BMSBuilding: [facility] Repository 07/12/2017 [id number] Ambulatory BMSBuilding: [facility] Repository 07/05/2017 [id number] Ambulatory BMSBuilding: [facility] Repository PAYERS PAYERS ENCOUNTER GUARANTOR PAYER SUBSCRIBER SOURCE 06/10/2018 CHARISSA K Primary CHARISSA K Rigoberto [id number] Insurance[facility] [place] [facility] [id number] Number: Repository [id number]: [id number] [phone] (HP) Date:2017-07-05 06/10/2018 Secondary CHARISSA K Rigoberto Insurance:AARPPolicy MONTGOMERYDOB: Community Number: [id number] Hospital [id number] Repository Date:5595-65-08FF [facility] 494101UMGSPGY, [place] [address]RL: 06/10/2018 Tertiary NOT GIVENUNK Rigoberto Insurance:SELF PAY [facility] Number: Effective Repository Date:2018-06-04 06/01/2018 CHARISSA K Primary CHARISSA K Brothers [id number] [facility] [place] [facility] [id number][place] Number: Repository 49293Fpk: 330 [id number] [phone] () Date:2018-06-01 06/01/2018 Secondary CHARISSA K Rigoberto Insurance:AARPPolicy [place]TGOM[place]DOB: Community Number: [id number] Hospital [id number] Repository Date:4838-42-82FS [address]RNSSFPZ, [place] [address]AE: 06/01/2018 Tertiary NOT GIVENUNK Rigoberto Insurance:SELF PAY [facility] Number: Effective Repository Date:2018-06-01 06/01/2018 CHARISSA K Primary CHARISSA K Rigoberto [id number] Insurance:[facility]ARE [facility] Community [place] [facility] [id number] [facility] [place] Number: Repository [address]Xip: 330 [id number] [phone] (HP) Date:2018-06-01 06/01/2018 Secondary CHARISSA K Rigoberto Insurance:AARPPolicy [place]TGOMERYDOB: Community Number: [id number] Hospital [id number] Repository Date:5269-24-59GW [facility] 713712HLFSBPN, [place] [address]OH: 06/01/2018 Tertiary NOT GIVENUNK Rigoberto Insurance:SELF PAY [facility] Number: Effective Repository Date:2018-06-01 05/29/2018 CHARISSA K Primary CHARISSA K Brothers [id number] Insurance:MEDICARE [place]DOB: Community [place] [facility] [id number] Center [facility] [place] Number: Repository [address]Dal: 330 [id number] [phone] (HP) Date:2018-05-29 05/29/2018 Secondary CHARISSA K Brothers Insurance:AARPPolicy [place]TGOM[place]DOB: Community Number: [id number] Hospital [id number] Repository Date:1625-32-61RA [address]NJNPQYX, [place] [address]ZR: 05/29/2018 Tertiary NOT GIVENUNK Brothers Insurance:SELF PAY [facility] Number: Effective Repository Date:2018-05-29 05/29/2018 CHARISSA K Primary CHARISSA K Rigoberto [id number] Insurance:MEDICARE [place]DOB: Community [place] [facility] [id number] [facility] the [place] Number: Repository [id number]: 330 [id number] [phone] (HP) Date:2018-05-29 05/29/2018 Secondary CHARISSA K Rigoberto Insurance:AARPPolicy [place]TGOM[place]DOB: Community Number: [id number] Hospital [id number] Repository Date:6677-46-75RU [address]ZZEGIQQ, [place] [address]EJ: 05/29/2018 Tertiary NOT GIVENUNK Rigoberto Insurance:SELF PAY [facility] Number: Effective Repository Date:2018-05-29 05/29/2018 CHARISSA K Primary CHARISSA K Rigoberto [id number] Insurance:MEDICARE [place]DOB: Community [place] olicy [id number], [place] Number: Repository [address]Fyp: 330 [id number] [phone] (HP) Date:2018-05-29 05/29/2018 Secondary CHARISSA K Rigoberto Insurance:AARPPolicy [place]OM[place]DOB: Community Number: [id number] Hospital [id number] Repository Date:8163-84-24IM [facility] 132137BOYMVLR, [place] [address]LH: 05/29/2018 Tertiary NOT GIVENUNK Brothers Insurance:SELF PAY [facility] Number: Effective Repository Date:2018-05-29 05/29/2018 CHARISSA K Primary CHARISSA K Rigoberto [id number] Insurance:MEDICARE [place]DOB: Community [place] [facility] [id number] Center of the [place] Number: Repository [address]Hju: 330 [id number] [phone] () Date:2018-05-29 05/29/2018 Secondary CHARISSA K Rigoberto Insurance:AARPPolicy [place]DOB: Community Number: [id number] Hospital [id number] Repository Date:7639-64-31TK [facility] 834609BYWOGYH, [place] [address]DJ: 05/29/2018 Tertiary NOT GIVENUNK Rigoberto Insurance:SELF PAY [facility] Number: Effective Repository Date:2018-05-29 05/29/2018 CHARISSA K Primary CHARISSA K Rigoberto [id number] Insurance:MEDICARE [place]DOB: Community [place] olicy [id number] [place] Number[place] Repository [address]Med: 330 [id number] [phone] (HP) Date:2018-05-29 05/29/2018 Secondary CHARISSA K Rigoberto Insurance:AARPPolicy MALLORIEGOMERYDOB: Community Number: [id number] Hospital [id number] Repository Date:3668-00-90KJ [facility] 276968YCMDRTC, [place] [address]QS: 05/29/2018 Tertiary NOT GIVENUNK Rigoberto Insurance:SELF PAY [facility] Number: Effective Repository Date:2018-05-29 05/29/2018 CHARISSA K Primary CHARISSA K Rigoberto [id number] Insurance:MEDICARE [place]DOB: Community [place] [facility] [id number], [place] Number: Repository 12844Sqf: 330 [id number] [phone] () Date:2017-07-05 05/29/2018 Secondary CHARISSA K Brothers Insurance:AARPPolicy MALLORIEGOMERYDOB: Community Number: [id number] Hospital [id number] Repository Date:8864-44-20MW [address]ISICXTH, [place] [address]LR: 05/29/2018 Tertiary NOT GIVENUNK Rigoberto Insurance:SELF PAY [facility] Number: Effective Repository Date:2018-05-04 05/22/2018 CHARISSA K Primary CHARISSA K Rigoberto [id number] Insurance:MEDICARE [place]DOB: Community [place] [facility] [id number], [place] Number: Repository [address]32Fcl: 330 [id number] [phone] (HP) Date:2017-07-05 05/22/2018 Secondary CHARISSA K Rigoberto Insurance:AARPPolicy MALLORIEGOMERYDOB: Community Number: [id number] Hospital [id number] Repository Date:7821-30-05FX [address]AVABZEF, [place] [address]AJ: 05/22/2018 Tertiary NOT GIVENUNK Brothers Insurance:SELF PAY [facility] Number: Effective Repository Date:2018-05-22 05/15/2018 CHARISSA K Primary CHARISSA K Rigoberto [id number] Insurance:MEDICARE [place]DOB: Community [place] [facility] [id number] Number: Repository [address]Acc: 330 [id number] [phone] (HP) Date:2018-05-03 05/15/2018 Secondary CHARISSA K Brothers Insurance:AARPPolicy [place]DOB: Community Number: [id number] Hospital [id number] Repository Date:5154-89-40FM [facility] 778315FYMZEVW, [place] [address]RL: 05/15/2018 Tertiary NOT GIVENUNK Brothers Insurance:SELF PAY [facility] Number: Effective Repository Date:2018-05-14 05/15/2018 CHARISSA K Primary CHARISSA K Brothers [id number] Insurance:MEDICARE [facility]: Community [place] [facility] [id number] Center of the [place] Number: Repository [address]99Dnm: 330 [id number] [phone] (HP) Date:2018-05-03 05/15/2018 Secondary CHARISSA K Brothers Insurance:AARPPolicy MALLORIEGOMERYDOB: Community Number: [id number] Hospital [id number] Repository Date:5506-81-25JZ [facility] 884607JELKMYU, [place] [address]KZ: 05/15/2018 Tertiary NOT GIVENUNK Rigoberto Insurance:SELF PAY [facility] Number: Effective Repository Date:2018-05-15 05/15/2018 CHARISSA K Primary CHARISSA K Brothers [id number] Insurance:MEDICARE [place]DOB: Community [place] [facility] [id number] Center of the [place] Number: Repository [address]805Atq: 330 [id number] [phone] (HP) Date:2018-05-03 05/15/2018 Secondary CHARISSA K Rigoberto Insurance:AARPPolicy [place]OM[place]DOB: Community Number: [id number] Hospital [id number] Repository Date:8129-77-85BJ [address]UJRALGP, [place] [address]GW: 05/15/2018 Tertiary NOT GIVENUNK Rigoberto Insurance:SELF PAY [facility]: Effective Repository Date:2018-05-15 05/15/2018 CHARISSA K Primary CHARISSA K Brothers [id number] Insurance:MEDICARE [place]OM[place]DOB: Community [place] [facility] [id number], [place] Number: Repository 77479Ilx: 330 [id number] [phone] (HP) Date:2018-05-03 05/15/2018 Secondary CHARISSA K Rigoberto Insurance:AARPPolicy [place]OM[place]DOB: Community Number: [id number] Hospital [id number] Repository Date:4351-19-57JB [facility] 916895UGECHXN, [place] [address]UK: 05/15/2018 Tertiary NOT GIVENUNK Brothers Insurance:SELF PAY [facility] Number: Effective Repository Date:2018-05-15 05/15/2018 CHARISSA K Primary CHARISSA K Rigoberto [id number] Insurance:MEDICARE [place]DOB: Community [place] [facility] [id number], [place] Number: Repository [address]35[address]Xin: 330 [id number] [phone] (HP) Date:2018-05-03 05/15/2018 Secondary CHARISSA K Rigoberto Insurance:AARPPolicy [place]DOB: Community Number: [id number] Hospital [id number] Repository Date:9364-98-05DY [address]IWLGTUC, [place] [address]LT: 05/15/2018 Tertiary NOT GIVENUNK Rigoberto Insurance:SELF PAY [facility] Number: Effective Repository Date:2018-05-15 05/15/2018 CHARISSA K Primary CHARISSA K Brothers [id number] Insurance:MEDICARE [place]DOB: Community [place] [facility] [id number] Center of the [place] Number: Repository 78000Deh: 330 [id number] [phone] (HP) Date:2018-05-03 05/15/2018 Secondary CHARISSA K Rigoberto Insurance:AARPPolicy [place]OM[place]DOB: Community Number: [id number] Hospital [id number] Repository Date:4265-97-60XD [facility] 460893YNGDTZQ, [place] [address]NG: 05/15/2018 Tertiary NOT GIVENUNK Brothers Insurance:SELF PAY [facility] Number: Effective Repository Date:2018-05-15 05/15/2018 CHARISSA K Primary CHARISSA K Brothers [id number] Insurance:MEDICARE [place]DOB: Community [place] [facility] [id number] [place] Number[place] Repository [address]Ado: 330 [id number] [phone] (HP) Date:2018-05-03 05/15/2018 Secondary CHARISSA K Brothers Insurance:AARPPolicy [place]OM[place]DOB: Community Number: [id number] Hospital [id number] Repository Date:2419-07-52MD [address]LRLBNXF, [place] [address]QW: 05/15/2018 Tertiary NOT GIVENUNK Brothers Insurance:SELF PAY [facility] Number: Effective Repository Date:2018-05-03 05/14/2018 CHARISSA K Primary CHARISSA K Rigoberto [id number] Insurance:MEDICARE [place]DOB: Community [place] [facility] [id number] [place], [place] Number: Repository 29452Xys: 330 [id number] [phone] (HP) Date:2018-05-14 05/14/2018 Secondary CHARISSA K Brothers Insurance:AARPPolicy [place]DOB: Community Number: [id number] Hospital [id number] Repository Date:3992-25-52ZH [facility] 356791FVGTRWQ, [place] [address]RK: 05/14/2018 Tertiary NOT GIVENUNK Rigoberto Insurance:SELF PAY Community [facility] Number: Effective Repository Date:2018-05-14 05/08/2018 CHARISSA K Primary CHARISSA K Rigoberto [id number] Insurance:MEDICARE [place]DOB: Community [place] olicy [id number] Center of the [place] Number: Repository [id number]: [phone] [id number] [phone] () Date:2006-09-02 05/08/2018 Secondary CHARISSA K Rigoberto Insurance:AARPPolicy [place]DOB: Community Number: [id number] Hospital [id number] Repository Date:2450-23-78ZT [facility] 689413XGAXTLR, [place] [address]CC: 05/08/2018 Tertiary NOT GIVENUNK Rigoberto Insurance:SELF PAY [facility] Number: Effective Repository Date:2018-05-02 05/01/2018 CHARISSA K Primary CHARISSA K Rigoberto [id number] Insurance:MEDICARE [place]DOB: Community [place] [facility] [id number] Center of the [place] Number: Repository [id number]: [phone] [id number] [phone] () Date:2018-05-01 05/01/2018 Secondary CHARISSA K Rigoberto Insurance:AARPPolicy MALLORIEGOMERYDOB: Community Number: [id number] Hospital [id number] Repository Date:4864-58-60DY [facility] 666738NHSKLLQ, [place] [address]UR: 05/01/2018 Tertiary NOT GIVENUNK Brothers Insurance:SELF PAY [facility] Number: Effective Repository Date:2018-05-01 05/01/2018 CHARISSA K Primary CHARISSA K Brothers [id number] Insurance:MEDICARE [place]DOB: Community [place] [facility] [id number] [place] Number: Repository [id number]: ([phone] [id number] healthcare system [phone] (HP) e Date:2017-07-05 05/01/2018 Secondary CHARISSA K Rigoberto Insurance:LAURENCEPPolictom MILLANOB: Community Number: [id number] Hospital [id number] Repository Date:6730-30-99IQ [facility] 560730EURQBYZ, [place] [address]TF: 05/01/2018 Tertiary NOT GIVENUNK Brothers Insurance:SELF PAY [facility] Number: Effective Repository Date:2018-04-04 04/30/2018 CHARISSA K Primary CHARISSA K Rigoberto [id number] Insurance:MEDICARE [facility]OSPITALMERYDOB: Community [place] [address] [place] [facility] [id number], [place] Number: Repository 214[address]Jrb: 330 [id number] [phone] () Date:2018-04-24 04/30/2018 Secondary CHARISSA K Rigoberto Insurance:Josh MILLANOB: Community Number: [id number] Hospital [id number] Repository Date:2644-09-97EC [facility] 020867AYXIQAW, [place] [address]YL: 04/30/2018 Tertiary NOT GIVENUNK Rigoberto Insurance:SELF PAY [facility] Number: Effective Repository Date:2018-04-24 04/24/2018 CHARISSA K Primary CHARISSA K Rigoberto [id number] Insurance:MEDICARE [facility]ENTERGOMERYDOB: Community [place] [address] [place] [facility] [id number], [place] Number: Repository 63646Nbn: 330 [id number] [phone] () Date:2018-05-01 04/24/2018 Secondary CHARISSA K Brothers Insurance:LAURENCEPPolicy YANAOB: Community Number: [id number] Hospital [id number] Repository Date:8281-11-81MH [facility] 091300WENICHD, [place] [address]ZF: 04/24/2018 Tertiary NOT GIVENUNK Brothers Insurance:SELF PAY [facility] Number: Effective Repository Date:2018-04-24 04/22/2018 CHARISSA K Primary CHARISSA K Rigoberto [id number] Insurance:MEDICARE [place]DOB: Community [place] [address] [place] [facility] [id number] Center of the [place] Number: Repository [address]Ngu: 330 [id number] [phone] (HP) Date:2018-05-01 04/22/2018 Secondary CHARISSA K Rigoberto Insurance:AARPPolicy [place]TGOM[place]DOB: Community Number: [id number] Hospital [id number] Repository Date:7715-79-45YK [facility] 956925DUALRKV, [place] [address]YX: 04/22/2018 Tertiary NOT GIVENUNK Rigoberto Insurance:SELF PAY [facility] Number: Effective Repository Date:2018-04-22 04/22/2018 CHARISSA K Primary CHARISSA K Rigoberto [id number] Insurance:MEDICARE [facility]: Community [place] [address] [facility] [id number] [place], [place] Number: Repository 13802Chu: 330 [id number] [phone] (HP) Date:2018-04-19 04/22/2018 Secondary CHARISSA K Brothers Insurance:AARPPolicy [place]OM[place]DOB: Community Number: [id number] Hospital [id number] Repository Date:8025-07-70BN [address]LOWUTLW, [place] [address]PV: 04/22/2018 Tertiary NOT GIVENUNK Rigoberto Insurance:SELF PAY [facility] Number: Effective Repository Date:2018-04-19 04/19/2018 CHARISSA K Primary CHARISSA K Rigoberto [id number] Insurance:MEDICARE [facility] HOSPITALMERYDOB: Community [place] [address] [facility] [id number] [place], [place] Number: Repository 327[address]Bik: 330 [id number] [phone] (HP) Date:2018-04-17 04/19/2018 Secondary CHARISSA K Brothers Insurance:AARPPolicy MONTGOM[place]DOB: Community Number: [id number] Hospital [id number] Repository Date:4160-69-69YY [address]YUAZAZF, [place] [address]QC: 04/19/2018 Tertiary NOT GIVENUNK Brothers Insurance:SELF PAY [facility] Number: Effective Repository Date:2018-04-18 04/16/2018 CHARISSA K Primary CHARISSA K Rigoberto [id number] Insurance:MEDICARE [place]DOB: Community [place] [address] [place] olicy [id number], [place] Number: Repository [id number]: [phone] [id number] [phone] () Date:2018-04-02 04/16/2018 Secondary CHARISSA K Rigoberto Insurance:AARPPolicy [place]OM[place]DOB: Community Number: [id number] Hospital [id number] Repository Date:3365-39-11XY [address]HPHFLRP, [place] [address]BR: 04/16/2018 Tertiary NOT GIVENUNK Rigoberto Insurance:SELF PAY [facility] Number: Effective Repository Date:2018-04-02 04/15/2018 CHARISSA K Primary CHARISSA K Rigoberto [id number] Insurance:MEDICARE [place]DOB: Community [place] [address] [place] olicy [id number], [place] Number: Repository 20573Eqf: 330 [id number] [phone] () Date:2018-04-02 04/15/2018 Secondary CHARISSA K Rigoberto Insurance:AARPPolicy MONTGOM[place]DOB: Community Number: [id number] Hospital [id number] Repository Date:4838-76-68VN [address]MAIFJOY, [place] [address]GN: 04/15/2018 Tertiary NOT GIVENUNK Brothers Insurance:SELF PAY [facility] Number: Effective Repository Date:2018-04-15 04/10/2018 CHARISSA K Primary CHARISSA K Rigoberto [id number] Insurance:MEDICARE [place]DOB: Community [place] [address] [facility] [id number] Center of the [place] Number: Repository [address]82Stk: [phone] [id number] [phone] () Date:2018-05-01 04/10/2018 Secondary CHARISSA K Brothers Insurance:AARPPolicy MONTGOM[place]DOB: Community Number: [id number] Hospital [id number] Repository Date:1505-96-60SO [facility] 536667IJQZZGO, [place] [address]SV: 04/10/2018 Tertiary NOT GIVENUNK Rigoberto Insurance:SELF PAY Community [facility] Number: Effective Repository Date:2018-04-10 04/03/2018 CHARISSA K Primary HCARISSA K Brothers [id number] Insurance:MEDICARE MONTGOM[place]DOB: Community [place] [address] [place] [facility] [id number] [place], [place] Number: Repository 47[address]Uea: 330 [id number] [phone] () e Date:2017-07-05 04/03/2018 Secondary CHARISSA K Brothers Insurance:AARPPolicy MONTGOMERYDOB: Community Number: [id number] Hospital [id number] Repository Date:6280-73-99UW [address]MQNCCIY, [place] [address]PL: 04/03/2018 Tertiary NOT GIVENUNK Rigoberto Insurance:SELF PAY [facility] Number: Effective Repository Date:2018-03-04 04/03/2018 CHARISSA K Primary CHARISSA K Rigoberto [id number] Insurance:MEDICARE [place]TGOM[place]DOB: Community [place] [address] [facility] [id number] Center of the [place] Number: Repository 79[address]Xug: [phone] [id number] [phone] () e Date:2017-07-05 04/03/2018 Secondary CHARISSA K Rigoberto Insurance:AARPPolicy MONTGOM[place]DOB: Community Number: [id number] Hospital [id number] Repository Date:9022-79-39UA [address]LEHMALG, [place] [address]NW: 04/03/2018 Tertiary NOT GIVENUNK Brothers Insurance:SELF PAY Community [facility] Number: Effective Repository Date:2018-04-03 03/28/2018 CHARISSA K Primary CHARISSA K Brothers [id number] Insurance:MEDICARE [place]TGOMERYDOB: Community [place] [address] [place] olicy [id number], [place] Number: Repository [address]Cbl: [phone] [phone] () e Date:2018-03-28 03/28/2018 Secondary CHARISSA K Brothers Insurance:AARPPolicy MONTGOMERYDOB: Community Number: [id number] Hospital [id number] Repository Date:9550-81-21OF [address]HNUMYIZ, [place] [address]BN: 03/28/2018 Tertiary NOT GIVENUNK Brothers Insurance:SELF PAY [facility] Number: Effective Repository Date:2018-03-28 03/27/2018 CHARISSA K Primary CHARISSA K Rigoberto [id number] Insurance:MEDICARE [place]TGOM[place]DOB: Community [place] [address] [place] [facility] [id number], [place] Number: Repository 332[address]Jyk: [phone] [phone] () e Date:2017-07-05 03/27/2018 Secondary CHARISSA K Rigoberto Insurance:AARPPolicy MONTGOM[place]DOB: Community Number: [id number] Hospital [id number] Repository Date:7970-59-49ZT [facility] 416089HRQQEHR, [place] [address]BT: 03/27/2018 Tertiary NOT GIVENUNK Brothers Insurance:SELF PAY [facility] Number: Effective Repository Date:2018-03-27 03/20/2018 CHARISSA K Primary CHARISSA K Brothers [id number] Insurance:MEDICARE [place]TGOMERYDOB: Community [place] [address] [facility] [id number] Center of the [place] Number: Repository [address]Tvu: [phone] [phone] (HP) e Date:2017-07-05 03/20/2018 Secondary CHARISSA K Rigoberto Insurance:AARPPolicy MALLORIEGOMERYDOB: Community Number: [id number] Hospital [id number] Repository Date:1563-92-74QC [facility] 078395TEPLZVX, [place] [address]OY: 03/20/2018 Tertiary NOT GIVENUNK Brothers Insurance:SELF PAY [facility] Number: Effective Repository Date:2018-03-20 03/11/2018 CHARISSA K Primary CHARISSA K Rigoberto [id number] Insurance:MEDICARE [place]OM[place]DOB: Community [place] [address] [place] [facility] [id number], [place] Number: Repository [id number]: 330 [id number] [phone] () Date:2017-07-05 03/11/2018 Secondary CHARISSA K Rigoberto Insurance:AARPPolicy MONTGOMERYDOB: Community Number: [id number] Hospital [id number] Repository Date:0653-52-46GH [address]IPFGIOD, [place] [address]NO: 03/11/2018 Tertiary NOT GIVENUNK Rigoberto Insurance:SELF PAY [facility] Number: Effective Repository Date:2018-03-11 03/06/2018 CHARISSA K Primary CHARISSA K Rigoberto [id number] Insurance:MEDICARE [place]OM[place]DOB: Community [place] [facility] [id number], [place] Number: Repository [address]Gnr: [id number] [phone] (HP) e Date:2017-07-05 03/06/2018 Secondary CHARISSA K Rigoberto Insurance:AARPPolicy MONTGOMERYDOB: Community Number: [id number] [id number] Repository Date:8453-08-08[address]QTDIPMK, [place] [address]QF: 03/06/2018 Tertiary NOT GIVENUNK Brothers Insurance:SELF PAY Community [facility] Number: Effective Repository Date:2018-03-06 02/27/2018 CHARISSA K Primary CHARISSA K Rigoberto [id number] Insurance:MEDICARE MONTGOMERYDOB: Community [place] [facility] [id number] [facility] [place] Number: Repository [address]Pwl: [phone]-AEffectiv [phone] () e Date:2017-07-05 02/27/2018 Secondary CHARISSA K Brothers Insurance:AARPPolicy MONTGOMERYDOB: Community Number: [id number] [facility] [id number] Repository Date:9827-50-41XL [address]BHESULS, [place] [address]NT: 02/27/2018 Tertiary NOT GIVENUNK Rigoberto Insurance:SELF PAY [facility] Number: Effective Repository Date:2018-02-02 02/27/2018 CHARISSA K Primary CHARISSA K Brothers [id number] Insurance:MEDICARE MONTGOMERYDOB: Community [place] [facility] [id number] [facility] [place] Number: Repository [address]Eqw: [phone]-AEffectiv [phone] () e Date:2017-07-05 02/27/2018 Secondary CHARISSA K Brothers Insurance:AARPPolicy MONTGOMERYDOB: Community Number: [id number] Hospital [id number] Repository Date:6012-51-39[address]SFFZNKH, [place] [address]MI: 02/27/2018 Tertiary NOT GIVENUNK Rigoberto Insurance:SELF PAY Community [facility] Number: Effective Repository Date:2018-02-27 02/20/2018 CHARISSA K Primary CHARISSA K Rigoberto [id number] Insurance:MEDICARE MONTGOMERYDOB: Community [place] [facility] [id number] [place] Number[place] Repository [address]Kub: [phone]-AEffectiv [phone] () e Date:2017-07-05 02/20/2018 Secondary CHARISSA K Rigoberto Insurance:AARPPolicy VITOMERYDOB: Community Number: [id number] Hospital [id number] Repository Date:3840-00-41BN [address]AUMPY, [place] [address]AP: 02/20/2018 Tertiary NOT GIVENUNK Brothers Insurance:SELF PAY [facility] Number: Effective Repository Date:2018-02-20 02/19/2018 CHARISSA K Primary CHARISSA K [facility] MONTGOMERYDOB: Insurance:MEDICARE A [facility] [place] [facility] Number: [id number] [facility] [id number], [place] Date:2590-28-54Vubi [place], [place] Repository [address]Poo: [phone]) Name:CARE [id number]: () [phone] () 02/19/2018 Secondary CHARISSA K [facility] Insurance:AARPPolicy MALLORIEYESICAYDOB: [place] Number: [id number] [facility] [id number] Regional Medical Center Date:4508-14-26Wncw [place] Repository Name:MANAGED CARE [id number]: () 02/13/2018 CHARISSA K Primary CHARISSA K Brothers [id number] Insurance:MEDICARE MALLORIECHAMISALYDOB: [facility] VIEW PART A BPolicy [id number][place] Number: Repository [address]Ibh: [phone] [id number] [phone] () e Date:2017-07-05 02/13/2018 Secondary CHARISSA K Brothers Insurance:AARPPolicy MALLORIEGOYESICAYDOB: Community Number: [id number] Hospital [id number] Repository Date:8503-63-80RB [address]AHNKMJZ, [place] [address]SL: 02/13/2018 Tertiary NOT GIVENUNK Rigoberto Insurance:SELF PAY Community [facility] Number: Effective Repository Date:2018-02-13 02/06/2018 CHARISSA K Primary CHARISSA K Brothers [id number] Insurance:MEDICARE MONTGOMERYDOB: Community [place] [facility] [id number] Center of the [place] Number: Repository [address]Icl: [phone]-AEffectiv [phone] () e Date:2017-07-05 02/06/2018 Secondary CHARISSA K Brothers Insurance:AARPPolicy MONTGOMERYDOB: Community Number: [id number] Hospital [id number] Repository Date:5252-09-18PQ [facility] 355976GKBTYPX, [place] [address]NA: 02/06/2018 Tertiary NOT GIVENUNK Brothers Insurance:SELF PAY [facility] Number: Effective Repository Date:2018-02-06 01/31/2018 CHARISSA K Primary CHARISSA K Brothers [id number] Insurance:MEDICARE MONTGOMERYDOB: Community [place] [facility] [id number] Center of the [place] Number: Repository [address]Bov: [phone]-AEffectiv [phone] () e Date:2018-01-31 01/31/2018 Secondary CHARISSA K Brothers Insurance:AARPPolicy MONTGOMERYDOB: Community Number: [id number] Hospital [id number] Repository Date:1874-46-33WP [facility] 857608HXJABQL, [place] [address]OH: 01/31/2018 Tertiary NOT GIVENUNK Brothers Insurance:SELF PAY Community [facility] Number: Effective Repository Date:2018-01-31 01/30/2018 CHARISSA K Primary CHARISSA K Rigoberto [id number] Insurance:MEDICARE MONTGOMERYDOB: Community [place] [facility] [id number] [place] Number: Repository [address]Zpv: [phone]-AEffectiv [phone] (HP) e Date:2017-07-05 01/30/2018 Secondary CHARISSA K Rigoberto Insurance:AARPPolicy MALLORIEGOMERYDOB: Community Number: [id number] Hospital [id number] Repository Date:5095-19-60VT [address]KZADBOQ, [place] [address]AD: 01/30/2018 Tertiary NOT GIVENUNK Brothers Insurance:SELF PAY [facility] Number: Effective Repository Date:2018-01-02 01/30/2018 CHARISSA K Primary CHARISSA K Rigoberto [id number] Insurance:MEDICARE MONTGOMERYDOB: Community [place] [facility] [id number], [place] Number: Repository [address]Mgc: 330 [phone]-AEffectiv [phone] () e Date:2017-07-05 01/30/2018 Secondary CHARISSA K Brothers Insurance:AARPPolicy VITOMERYDOB: Community Number: [id number] Hospital [id number] Repository Date:9253-40-03ZZ [address]PLMUIEF, [place] [address]KI: 01/30/2018 Tertiary NOT GIVENUNK Rigoberto Insurance:SELF PAY [facility] Number: Effective Repository Date:2018-01-30 01/23/2018 CHARISSA K Primary CHARISSA K Brothers [id number] Insurance:MEDICARE MONTGOMERYDOB: Community [place] [facility] [id number] Center of the [place] Number: Repository [phone]: [phone] () e Date:2017-07-05 01/23/2018 Secondary CHARISSA K Brothers Insurance:AARPPolicy MALLORIEGOMERYDOB: Community Number: [id number] Hospital [id number] Repository Date:2687-91-90RS [address]CGHRZBU, [place] [address]NP: 01/23/2018 Tertiary NOT GIVENUNK Rigoberto Insurance:SELF PAY [facility] Number: Effective Repository Date:2018-01-23 01/16/2018 CHARISSA K Primary CHARISSA K Rigoberto [id number] Insurance:MEDICARE MONTGOMERYDOB: Community [place] [facility] [id number] Number: Repository [address]Dca: [phone]-AEffectiv [phone] () e Date:2017-07-05 01/16/2018 Secondary CHARISSA K Brothers Insurance:AARMercy Fitzgerald HospitalMERYDOB: [facility] Number: [id number] Hospital [id number] Repository Date:6460-78-42[address]CTBIVDP, [place] [address]SF: 01/16/2018 Tertiary NOT GIVENUNK Rigoberto Insurance:SELF PAY [facility] Number: Effective Repository Date:2018-01-16 01/15/2018 CHARISSA K Primary CHARISSA K [facility] MONTGOMERYDOB: Insurance:MEDICARE A [facility] [place] [facility] Number: [id number] [facility] [id number] [place], [place] Date:3181-96-87Fszv [place], [place] Repository [address]Trr: 330) Name:CARE [id number]: () [phone] () 01/15/2018 Secondary CHARISSA K [facility] Insurance:AARolicy [facility] HOSPITALYESICAYDOB: University Number: [id number] [facility] [id number] [facility] Date:5057-26-44Uwyh [place] Repository Name:MANAGED CARE [id number]: () 01/09/2018 CHARISSA K Primary CHARISSA K Brothers [id number] Insurance:MEDICARE [facility]: Community [place] [facility] [id number], [place] Number: Repository [address]Dgm: [phone]-AEffectiv [phone] (HP) e Date:2017-07-05 01/09/2018 Secondary CHARISSA K Brothers Insurance:AARPPolicy MALLORIEGOMERYDOB: Community Number: [id number] Hospital [id number] Repository Date:5931-04-04FH [facility] 217979QQSEHYZ, [place] [address]PF: 01/09/2018 Tertiary NOT GIVENUNK Rigoberto Insurance:SELF PAY Community [facility] Number: Effective Repository Date:2018-01-09 01/02/2018 CHARISSA K Primary CHARISSA K Brothers [id number] Insurance:MEDICARE MONTGOMERYDOB: Community [place] [facility] [id number], [place] Number: Repository [address]Wtm: 330 [phone]-AEffectiv [phone] () e Date:2017-07-05 01/02/2018 Secondary CHARISSA K Brothers Insurance:AARPPolicy VITOMERYDOB: Community Number: [id number] Hospital [id number] Repository Date:4308-83-00WH [address]EOYTQGH, [place] [address]LH: 01/02/2018 Tertiary NOT GIVENUNK Brothers Insurance:SELF PAY [facility] Number: Effective Repository Date:2018-01-02 12/26/2017 CHARISSA K Primary CHARISSA K Brothers [id number] Insurance:MEDICARE MONTGOMERYDOB: Community [place] [facility] [id number], [place] Number: Repository [id number]: [phone]-AEffectiv [phone] () e Date:2017-07-05 12/26/2017 Secondary CHARISSA K Brothers Insurance:AARPPolicy MONTGOMERYDOB: Community Number: [id number] Hospital [id number] Repository Date:5048-55-66DZ [facility] 703601ZAHMTPE, [place] [address]KK: 12/26/2017 Tertiary NOT GIVENUNK Brothers Insurance:SELF PAY Community [facility] Number: Effective Repository Date:2017-12-02 12/26/2017 CHARISSA K Primary CHARISSA K Rigoberto [id number] Insurance:MEDICARE MONTGOMERYDOB: [facility] VIEW PART A [facility] [id number], [place] Number: Repository [address]Dap: [phone]-AEffectiv [phone] () e Date:2017-07-05 12/26/2017 Secondary CHARISSA K Rigoberto Insurance:AARPPolicy MALLORIEGOMERYDOB: Community Number: [id number] Hospital [id number] Repository Date:9577-01-99AP [address]SEJWBPI, [place] [address]OV: 12/26/2017 Tertiary NOT GIVENUNK Brothers Insurance:SELF PAY [facility] Number: Effective Repository Date:2017-12-26 12/10/2017 CHARISSA K Primary [facility] Insurance:MEDICARE A [facility]: [place] AND BPolicy Number: [id number] [facility] [id number] [place], [place] Date:4355-27-88Ydsy [place], [place] Repository [address]Xvi: (989) Name:CARE [id number]: () [phone] () 12/10/2017 Secondary CHARISSA K [facility] Insurance:AARPPolicy MALLORIEYESICAYDOB: University Number: [id number] [facility] [id number] [facility] Date:1078-35-27Liso [place], [place] Repository Name:[facility] CARE 50122Dro: () 11/26/2017 CHARISSA K Primary CHARISSA K [facility]: Insurance:MEDICARE A [facility]ITALMERYDOB: [place] AND BPolicy Number: [id number] [facility] [id number] [place], [place] Date:8761-41-86Kucn [place], [place] Repository [address]Lcn: (436) Name:CARE [id number]: (HP) [phone] () 11/26/2017 Secondary CHARISSA K [facility] Insurance:AARPPolictom MILLANOB: University Number: [id number] [facility] [id number] [facility] Date:6199-49-50Zjpb [place] Repository Name:MANAGED CARE [address]Lbo: () 11/26/2017 CHARISSA K Primary CHARISSA K [facility] MONTGOMERYDOB: Insurance:MEDICARE A MALLORIEMERYDOB: [place] AND [facility] Number: [id number] [facility] [id number], [place] Date:4423-48-17Qhss [place] Repository [address]Tbd: (330) Name:CARE [id number]: () [phone] () 11/26/2017 Secondary CHARISSA K [facility] Insurance:LAURENCEPPolictom MILLANOB: University Number: [id number] [facility] [id number] [facility] Date:8638-52-73Gvap [place] Repository Name:MANAGED CARE [id number]: () 11/21/2017 CHARISSA K Primary CHARISSA K Rigoberto [id number] Insurance:MEDICARE MALLORIEYESICAYDOB: [facility] VIEW PART A BPolicy [id number], [place] Number: Repository [address]Mvh: [phone]-AEffectiv [phone] () e Date:2017-07-05 11/21/2017 Secondary CHARISSA K Brothers Insurance:AARPPolicy [facility]: Community Number: [id number] Hospital [id number] Repository Date:7842-28-16II [address]POVGQGT, [place] [address]VE: 11/21/2017 Tertiary NOT GIVENUNK Rigoberto Insurance:SELF PAY Community [facility] Number: Effective Repository Date:2017-11-02 11/14/2017 CHARISSA K Primary CHARISSA K Brothers [id number] Insurance:MEDICARE MONTGOMERYDOB: Community [place] [facility] [id number], [place] Number: Repository [address]Nic: [phone]-AEffectiv [phone] () e Date:2017-07-05 11/14/2017 Secondary CHARISSA K Rigoberto Insurance:AARPPolicy MONTGOMERYDOB: Community Number: [id number] Hospital [id number] Repository Date:0622-70-24VS [address]CRSTEHU, [place] [address]BO: 11/14/2017 Tertiary NOT GIVENUNK Brothers Insurance:SELF PAY [facility] Number: Effective Repository Date:2017-11-14 11/07/2017 CHARISSA K Primary CHARISSA K Brothers [id number] Insurance:MEDICARE MONTGOMERYDOB: Community [place] [facility] [id number], [place] Number: Repository [address]Ava: [phone]-AEffectiv [phone] () e Date:2017-07-05 11/07/2017 Secondary CHARISSA K Rigoberto Insurance:AARPPolicy MALLORIEGOMERYDOB: Community Number: [id number] Hospital [id number] Repository Date:3038-09-57BZ [address]WYUVTMG, [place] [address]BI: 11/07/2017 Tertiary NOT GIVENUNK Rigoberto Insurance:SELF PAY Community [facility] Number: Effective Repository Date:2017-11-07 10/31/2017 CHARISSA K Primary CHARISSA K Brothers [id number] Insurance:MEDICARE MONTGOMERYDOB: Community [place] A [facility] [id number] [place] Number: Repository [id number]: [id number]-AEffectiv [phone] () e Date:2017-07-05 10/31/2017 Secondary CHARISSA K Brothers Insurance:AARPPolicy MONTGOMERYDOB: Community Number: [id number] Hospital [id number] Repository Date:4660-28-00NA [address]UGRUEPC, [place] [address]OX: 10/31/2017 Tertiary NOT GIVENUNK Brothers Insurance:SELF PAY [facility] Number: Effective Repository Date:2017-10-02 10/31/2017 CHARISSA K Primary CHARISSA K Brothers [id number] Insurance:MEDICARE MONTGOMERYDOB: Community [place] [facility] [id number] Center of the [place] Number: Repository [address]Tfz: 330 [phone] [phone] () e Date:2017-07-05 10/31/2017 Secondary CHARISSA K Rigoberto Insurance:AARPPolicy MONTGOMERYDOB: Community Number: [id number] Hospital [id number] Repository Date:0395-35-75BY [address]JBLKSIC, [place] [address]ZK: 10/31/2017 Tertiary NOT GIVENUNK Rigoberto Insurance:SELF PAY [facility] Number: Effective Repository Date:2017-10-31 10/24/2017 CHARISSA K Primary CHARISSA K Rigoberto [id number] Insurance:MEDICARE MONTGOMERYDOB: Community [place] [facility] [id number] Center of the [place] Number: Repository [address]Bto: [phone]-AEffectiv [phone] () e Date:2017-07-05 10/24/2017 Secondary CHARISSA K Brothers Insurance:AARPPolicy MONTGOMERYDOB: Community Number: [id number] Hospital [id number] Repository Date:7849-55-18LN [address]FTRESNB, [place] [address]TZ: 10/24/2017 Tertiary NOT GIVENUNK Rigoberto Insurance:SELF PAY Community [facility] Number: Effective Repository Date:2017-10-24 10/24/2017 CHARISSA K Primary CHARISSA K Rigoberto [id number] Insurance:MEDICARE MONTGOMERYDOB: Community [place] olicy [id number], [place] Number: Repository [address]Bzf: [phone]-AEffectiv [phone] () e Date:2017-07-05 10/24/2017 Secondary CHARISSA K Rigoberto Insurance:AARolicy [facility]ITALMERYD[facility]: Community Number: [id number] Hospital [id number] Repository Date:8322-18-00HH [address]EFDZBDL, [place] [address]FJ: 10/24/2017 Tertiary NOT GIVENUNK Brothers Insurance:SELF PAY [facility] Number: Effective Repository Date:2017-10-24 10/23/2017 CHARISSA K Primary CHARISSA K [facility] MONTGOMERYDOB: Insurance:MEDICARE A [facility]ITALM[facility]: [place] [facility] Number: [id number] [facility] [id number], [place] Date:2672-01-35Cnuy [place], [place] Repository [address]Ded: (301) Name:CARE 60450Lqq: () [phone] () 10/23/2017 Secondary CHARISSA K [facility] Insurance:AARPPolicy MALLORIEGOMERYDOB: University Number: [id number] [facility] [id number] [facility] Date:4203-39-33Nseh [place] Repository Name:MANAGED CARE 17[address]Fsy: () 10/22/2017 CHARISAS K Primary CHARISSA K Rigoberto [id number] Insurance:MEDICARE [facility]ITALMERYD[facility]: Community [place] A [facility] [id number], [place] Number: Repository [id number]: [phone]-AEffectiv [phone] () e Date:2017-10-22 10/22/2017 Secondary CHARISSA K Brothers Insurance:AARPPolicy MONTGOMERYDOB: Community Number: [id number] Hospital [id number] Repository Date:2900-93-50PU [address]EPMGUZV, [place] [address]QK: 10/22/2017 Tertiary NOT GIVENUNK Rigoberto Insurance:SELF PAY [facility] Number: Effective Repository Date:2017-10-22 10/17/2017 CHARISSA K Primary CHARISSA K Brothers [id number] Insurance:MEDICARE MONTGOMERYDOB: Community [place] A [facility] [id number], [place] Number: Repository 28[address]Eoq: [phone]-AEffectiv [id number] () e Date:2017-07-05 10/17/2017 Secondary CHARISSA K Rigoberto Insurance:AARPPolicy MONTGOMERYDOB: Community Number: [id number] Hospital [id number] Repository Date:3351-82-15UF [address]CVTDJKB, [place] [address]NZ: 10/17/2017 Tertiary NOT GIVENUNK Rigoberto Insurance:SELF PAY [facility] Number: Effective Repository Date:2017-10-17 10/11/2017 CHARISSA K Primary CHARISSA K Brothers [id number] Insurance:MEDICARE MONTGOMERYDOB: Community [place] A [facility] [id number] Center of the [place] Number: Repository [address]Oqf: 330 [phone]-AEffectiv [phone] () e Date:2017-07-05 10/11/2017 Secondary CHARISSA K Brothers Insurance:AARPPolicy MONTGOMERYDOB: Community Number: [id number] Hospital [id number] Repository Date:8667-00-97[address]ZEXKZDT, [place] [address]ND: 10/11/2017 Tertiary NOT GIVENUNK Rigoberto Insurance:SELF PAY Community [facility] Number: Effective Repository Date:2017-10-11 10/04/2017 CHARISSA K Primary CHARISSA K Brothers [id number] Insurance:MEDICARE MONTGOMERYDOB: Community [place] A olicy [id number] Center of the [place] Number: Repository [id number]: [phone]-AEffectiv [phone] () e Date:2017-07-05 10/04/2017 Secondary CHARISSA K Rigoberto Insurance:AARPPolicy MONTGOMERYDOB: Community Number: [id number] Hospital [id number] Repository Date:4461-92-36LV [address]NIJXVVL, [place] [address]ZI: 10/04/2017 Tertiary NOT GIVENUNK Rigoberto Insurance:SELF PAY [facility] Number: Effective Repository Date:2017-10-04 09/27/2017 CHARISSA K Primary CHARISSA K Rigoberto [id number] Insurance:MEDICARE MONTGOMERYDOB: Community [place] A [facility] [id number] [facility] [place] Number: Repository [address]Sqf: [phone]-AEffectiv [phone] () e Date:2017-07-05 09/27/2017 Secondary CHARISSA K Rigoberto Insurance:AARPPolicy MONTGOMERYDOB: Community Number: [id number] Hospital [id number] Repository Date:8147-77-11IP [address]UFCKBYW, [place] [address]OG: 09/27/2017 Tertiary NOT GIVENUNK Brothers Insurance:SELF PAY Community [facility] Number: Effective Repository Date:2017-09-02 09/27/2017 CHARISSA K Primary CHARISSA K Brothers [id number] Insurance:MEDICARE MONTGOMERYDOB: Community [place] A [facility] [id number] [place] Number: Repository [id number]: [phone]-AEffectiv [phone] (HP) e Date:2017-07-05 09/27/2017 Secondary CHARISSA K Rigoberto Insurance:AARPPolicy MALLORIEGOMERYDOB: Community Number: [id number] Hospital [id number] Repository Date:9600-88-63QH [address]NLDGWFN, [place] [address]RH: 09/27/2017 Tertiary NOT GIVENUNK Rigoberto Insurance:SELF PAY Community [facility] Number: Effective Repository Date:2017-09-27 09/20/2017 CHARISSA K Primary CHARISSA K Brothers [id number] Insurance:MEDICARE MONTGOMERYDOB: Community [place] A [facility] [id number], [place] Number: Repository [address]Xhd: [phone]-AEffectiv [phone] () e Date:2017-07-05 09/20/2017 Secondary CHARISSA K Brothers Insurance:AARPPolicy MALLORIEGOMERYDOB: Community Number: [id number] Hospital [id number] Repository Date:8323-28-13EG [address]HZJXTPR, [place] [address]PJ: 09/20/2017 Tertiary NOT GIVENUNK Brothers Insurance:SELF PAY [facility] Number: Effective Repository Date:2017-09-20 09/06/2017 CHARISSA K Primary CHARISSA K Rigoberto [id number] Insurance:MEDICARE MONTGOMERYDOB: Community [place] A [facility] [id number] Center [facility] [place] Number: Repository [id number]: [phone]-AEffectiv [id number] () e Date:2017-07-05 09/06/2017 Secondary CHARISSA K Brothers Insurance:AARPPolicy MONTGOMERYDOB: Community Number: [id number] Hospital [id number] Repository Date:0208-93-53YZ [address]VXPCDUR, [place] [address]UE: 09/06/2017 Tertiary NOT GIVENUNK Brothers Insurance:SELF PAY Community [facility] Number: Effective Repository Date:2017-09-06 08/29/2017 CHARISSA K Primary CHARISSA K Rigoberto [id number] Insurance:MEDICARE [place]OB: Community [place] [facility] [id number] Number: Repository [id number]: [phone] () e Date:2017-07-05 08/29/2017 Secondary CHARISSA K Rigoberto Insurance:AARPPolicy [place]OB: Community Number: [id number] [id number] Repository Date:[id number], [place] [address]JV: 08/29/2017 Tertiary NOT GIVENUNK Brothers Insurance:SELF PAY [place] [facility] Number: Effective Repository Date:2017-08-02 08/29/2017 CHARISSA K Primary CHARISSA K Brothers [id number] Insurance:MEDICARE [place]TGOM[place]DOB: Community [place] [facility] [id number] [place] Number: Repository [address]Jap: [phone] () e Date:2017-07-05 08/29/2017 Secondary CHARISSA K Brothers Insurance:AARPPolicy MONTGOMERYDOB: Community Number: [id number] [facility] [id number] Repository Date:2578-30-72[address]CNCPXDV, [place] [address]DA: 08/29/2017 Tertiary NOT GIVENUNK Brothers Insurance:SELF PAY [facility] Number: Effective Repository Date:2017-08-29 08/27/2017 CHARISSA K Primary CHARISSA K Brothers [id number] Insurance:MEDICARE MONTGOMERYDOB: Community [place] [facility] [id number] [place] Number[place] Repository [address]Otq: [phone] [id number] [phone] () Date:2017-08-13 08/27/2017 Secondary CHARISSA K Brothers Insurance:AARPPolicy MONTGOMERYDOB: Community Number: [id number] Hospital [id number] Repository Date:7054-58-25AG [address]YKBKETD, [place] [address]YR: 08/27/2017 Tertiary NOT GIVENUNK Rigoberto Insurance:SELF PAY [facility] Number: Effective Repository Date:2017-08-13 08/27/2017 CHARISSA K Primary CHARISSA K Rigoberto [id number] Insurance:MEDICARE MONTGOMERYDOB: Community [place] [facility] [id number] Number: Repository [address]Ncd: [phone] [id number] [phone] () Date:2017-08-13 08/27/2017 Secondary CHARISSA K Rigoberto Insurance:AARPPolicy MONTGOMERYDOB: Community Number: [id number] Hospital [id number] Repository Date:1952-71-94KS [address]WFSLMVP, [place] [address]CU: 08/27/2017 Tertiary NOT GIVENUNK Brothers Insurance:SELF PAY [facility] Number: Effective Repository Date:2017-08-27 08/23/2017 CHARISSA K Primary CHARISSA K Rigoberto [id number] Insurance:MEDICARE MONTGOMERYDOB: Community [place] [facility] [id number] [facility] [place] Number: Repository [address]Cms: 330 [id number] [phone] () Date:2017-07-05 08/23/2017 Secondary CHARISSA K Brothers Insurance:AARPPolicy MONTGOMERYDOB: Community Number: [id number] Hospital [id number] Repository Date:2343-67-01FU [address]AJLOGLK, [place] [address]OG: 08/23/2017 Tertiary NOT GIVENUNK Brothers Insurance:SELF PAY [facility] Number: Effective Repository Date:2017-08-23 08/21/2017 CHARISSA K Primary CHARISSA K Brothers [id number] Insurance:MEDICARE MONTGOMERYDOB: Community [place] [facility] [id number], [place] Number: Repository [address]Tew: 330 [id number] [phone] (HP) Date:2017-08-09 08/21/2017 Secondary CHARISSA K Brothers Insurance:AARPPolicy MONTGOMERYDOB: Community Number: [id number] Hospital [id number] Repository Date:4926-19-89QJ [address]TGLLJSM, [place] [address]SQ: 08/21/2017 Tertiary NOT GIVENUNK Rigoberto Insurance:SELF PAY [facility] Number: Effective Repository Date:2017-08-09 08/21/2017 CHARISSA K Primary CHARISSA K Rigoberto [id number] Insurance:MEDICARE MONTGOMERYDOB: Community [place] [facility] [id number], [place] Number: Repository [address]Hwp: 330 [id number] [phone] () Date:2017-08-09 08/21/2017 Secondary CHARISSA K Rigoberto Insurance:AARPPolicy MONTGOMERYDOB: Community Number: [id number] Hospital [id number] Repository Date:3914-87-21[address]BYSANWC, [place] [address]IC: 08/21/2017 Tertiary NOT GIVENUNK Rigoberto Insurance:SELF PAY [facility] Number: Effective Repository Date:2017-08-21 08/19/2017 Charissa K Primary Charissa K [facility]: Insurance:HumanaPolic [facility] System y Number: Effective [id number] Repository [place] Date: [place], [place] [address]Ird: () 08/16/2017 CHARISSA K Primary CHARISSA K Brothers [id number] Insurance:MEDICARE [facility]PITALMERYD[facility]: Community [place] [facility] [id number], [place] Number: Repository [address]Kco: 330 [id number] [phone] (HP) Date:2017-07-05 08/16/2017 Secondary CHARISSA K Brothers Insurance:AARPPolicy EMMAYDOB: Community Number: [id number] Hospital [id number] Repository Date:6930-92-85[address]RJHWBUH, [place] [address]XL: 08/16/2017 Tertiary NOT GIVENUNK Rigoberto Insurance:SELF PAY [facility] Number: Effective Repository Date:2017-08-16 08/09/2017 CHARISSA K Primary CHARISSA K Brothers [id number] Insurance:MEDICARE MALLORIECHAMISALYDOB: [facility] PART [facility] [id number], [place] Number: Repository [address]Wqz: 330 [id number] [phone] () Date:2017-08-02 08/09/2017 Secondary CHARISSA K Rigoberto Insurance:AARPPolicy EMMAYDOB: Community Number: [id number] Hospital [id number] Repository Date:8287-21-63FB [address]QRBXNVV, [place] [address]BP: 08/09/2017 Tertiary NOT GIVENUNK Rigoberto Insurance:SELF PAY [facility] Number: Effective Repository Date:2017-08-02 08/09/2017 CHARISSA K Primary CHARISSA K [facility] MONTGOMERYDOB: Insurance:MEDICARE A MALLORIEMERYDOB: [place] [facility] Number: [id number] [facility] [id number] [place], [place] Date:8860-28-30[place]tdz[place], [place] Repository [address]Met: (330) Name:[facility] [address]Now: (HP) [phone] (HP) 08/09/2017 Secondary CHARISSA K [facility] Insurance:AARPPolicy [facility]PITALMERYD[facility]: University Number: [id number] [facility] [id number] Park [facility] Date:9962-17-81NgdmF[place], [place] Repository Name:[facility] [address]Blj: () 08/09/2017 CHARISSA K Primary CHARISSA K Rigoberto [id number] Insurance:MEDICARE MONTGOMERYDOB: Community [place] [facility] [id number], [place] Number: Repository [address]Xsp: [phone] [id number] [phone] (HP) Date:2017-08-09 08/09/2017 Secondary CHARISSA K Brothers Insurance:AARPPolicy MALLORIEGOMERYDOB: Community Number: [id number] Hospital [id number] Repository Date:5000-02-63QY [address]ICPFDKP, [place] [address]UU: 08/09/2017 Tertiary NOT GIVENUNK Rigoberto Insurance:SELF PAY [facility] Number: Effective Repository Date:2017-08-09 08/09/2017 CHARISSA K Primary CHARISSA K Rigoberto [id number] Insurance:MEDICARE MONTGOM[place]DOB: Community [place] [facility] [id number], [place] Number: Repository [address]Ser: [phone] [id number] [phone] () Date:2017-08-07 08/09/2017 Secondary CHARISSA K Brothers Insurance:AARPPolicy VITOMERYDOB: Community Number: [id number] Hospital [id number] Repository Date:3599-17-81HF [address]JOIOBEQ, [place] [address]EN: 08/09/2017 Tertiary NOT GIVENUNK Brothers Insurance:SELF PAY [facility] Number: Effective Repository Date:2017-08-07 08/06/2017 CHARISSA K Primary CHARISSA K Brothers [id number] Insurance:MEDICARE MONTGOMERYDOB: Community [place] [facility] [id number], [place] Number: Repository [id number]: [phone] [id number] [phone] (HP) Date:2017-07-05 08/06/2017 Secondary CHARISSA K Brothers Insurance:AARPPolicy MALLORIEGOMERYDOB: Community Number: [id number] Hospital [id number] Repository Date:6543-38-52XV [facility] [place]16[place], [place] [address]GX: 08/06/2017 Tertiary NOT GIVENUNK Rigoberto Insurance:SELF PAY [facility] Number: Effective Repository Date:2017-08-06 08/02/2017 CHARISSA K Primary CHARISSA K Brothers [id number] Insurance:MEDICARE MONTGOM[place]DOB: Community [place] [facility] [id number], [place] Number: Repository [address]Iyc: [phone] [id number] [phone] () Date:2017-08-02 08/02/2017 Secondary CHARISSA K Rigoberto Insurance:AARPPolicy MALLORIEGOMERYDOB: Community Number: [id number] Hospital [id number] Repository Date:9703-40-29BL [facility] 612242VJQFEIV, [place] [address]QM: 08/02/2017 Tertiary NOT GIVENUNK Brothers Insurance:SELF PAY [facility] Number: Effective Repository Date:2017-08-02 08/02/2017 CHARISSA K Primary CHARISSA K Brothers [id number] Insurance:MEDICARE MONTGOMERYDOB: Community [place] [facility] [id number], [place] Number: Repository [address]Ncp: [phone] [phone] (HP) e Date:2017-07-31 08/02/2017 Secondary CHARISSA K Rigoberto Insurance:AARPPolicy MALLORIEGOMERYDOB: Community Number: [id number] Hospital [id number] Repository Date:3044-60-01MZ [address]HJIYZLL, [place] [address]LG: 08/02/2017 Tertiary NOT GIVENUNK Brothers Insurance:SELF PAY [facility] Number: Effective Repository Date:2017-07-31 08/02/2017 CHARISSA K Primary CHARISSA K Brothers [id number] Insurance:MEDICARE MONTGOMERYDOB: Community [place] [facility] [id number] Center [facility] [place] Number: Repository [id number]: [phone] [id number] [phone] (HP) Date:2017-07-05 08/02/2017 Secondary CHARISSA K Rigoberto Insurance:AARPPolicy MONTGOMERYDOB: Community Number: [id number] Hospital [id number] Repository Date:4155-26-72VF [facility] 287749XQRBKQD, [place] [address]SB: 08/02/2017 Tertiary NOT GIVENUNK Rigoberto Insurance:SELF PAY [facility] Number: Effective Repository Date:2017-08-02 07/26/2017 CHARISSA K Primary CHARISSA K Brothers [id number] Insurance:MEDICARE MONTGOM[place]DOB: Community [place] [facility] [id number] [place] Number[place] Repository [id number]: [phone] [phone] (HP) e Date:2017-07-05 07/26/2017 Secondary CHARISSA K Brothers Insurance:AARPPolicy MONTGOM[place]DOB: Community Number: [id number] Hospital [id number] Repository Date:2340-24-26JS [address]FSHXVQI, [place] [address]UX: 07/26/2017 Tertiary NOT GIVENUNK Rigoberto Insurance:SELF PAY [facility] Number: Effective Repository Date:2017-07-05 07/26/2017 CHARISSA K Primary CHARISSA K Brothers [id number] Insurance:MEDICARE MONTGOMERYDOB: Community [place] [facility] [id number] [place] Number: Repository [id number]: [phone] [id number] [phone] (HP) Date:2017-07-05 07/26/2017 Secondary CHARISSA K Brothers Insurance:AARPPolicy MONTGOM[place]DOB: Community Number: [id number] Hospital [id number] Repository Date:8752-72-54NL [address]JPFAUGZ, [place] [address]WE: 07/26/2017 Tertiary NOT GIVENUNK Brothers Insurance:SELF PAY Community [facility] Number: Effective Repository Date:2017-07-26 07/24/2017 CHARISSA K Primary CHARISSA K Rigoberto [id number] Insurance:MEDICARE [place]DOB: Community [place] olicy [id number], [place] Number: Repository [address]Heq: [phone] [phone] () e Date:2017-07-24 07/24/2017 Secondary CHARISSA K Brothers Insurance:AARPPolicy MONTGOMERYDOB: Community Number: [id number] Hospital [id number] Repository Date:1652-90-66NW [address]ER[place], [place] [address]SU: 07/24/2017 Tertiary NOT GIVENUNK Rigoberto Insurance:SELF PAY [facility] Number: Effective Repository Date:2017-07-24 07/19/2017 CHARISSA K Primary CHARISSA K Brothers [id number] Insurance:MEDICARE [place]DOB: Community [place] olicy [id number], [place] Number: Repository [address]Ydi: [phone] [id number] [phone] () Date:2017-07-05 07/19/2017 Secondary CHARISSA K Rigoberto Insurance:AARPPolicy MONTGOMERYDOB: Community Number: [id number] Hospital [id number] Repository Date:1018-79-36FF [address]SWSFVST, [place] [address]ER: 07/19/2017 Tertiary NOT GIVENUNK Brothers Insurance:SELF PAY Community [facility] Number: Effective Repository Date:2017-07-19 07/12/2017 CHARISSA K Primary CHARISSA K Rigoberto [id number] Insurance:MEDICARE MONTGOMERYDOB: Community [place] [facility] [id number], [place] Number: Repository [id number]: 330 [id number] [phone] (HP) Date:2017-07-05 07/12/2017 Secondary CHARISSA K Brothers Insurance:AARPPolicy MALLORIEGOMERYDOB: Community Number: [id number] Hospital [id number] Repository Date:3886-96-68FT [facility] [address], [place] [address]UK: 07/12/2017 Tertiary NOT GIVENUNK Rigoberto Insurance:SELF PAY [facility] Number: Effective Repository Date:2017-07-12 07/05/2017 CHARISSA K Primary CHARISSA K Brothers [id number] Insurance:MEDICARE EMMAYDOB: Community [place] [facility] [id number] Center of [facility] [place] Number: Repository [id number]: 330 [id number] [phone] (HP) Date:2017-07-05 07/05/2017 Secondary CHARISSA K Brothers Insurance:AARPPolicy MALLORIEGOMERYDOB: Community Number: [id number] Hospital [id number] Repository Date:1867-77-32EJ [address]MRLDEJE, [place] [address]JD: 07/05/2017 Tertiary NOT GIVENUNK Brothers Insurance:SELF PAY [facility] Number: Effective Repository Date:2017-07-05
== END 2018-06-03 23:59 ==
LOC: WC 09:00
PROVIDERS: Family Provider Family Medicine Geriatric Medicine; PCP Family Medicine Geriatric Medicine; Visit Provider Internal Medicine
DX: L89.154 Pressure ulcer of sacral region, stage 4 (principal); T81.89XA Other complications of procedures, not elsewhere classified, initial encounter; Y83.8 Other surgical procedures as the cause of abnormal reaction of the patient, or of later complication, without mention of misadventure at the time of the procedure
CPT/HCPCS: 11043; 11046; 97606

== ENCOUNTER 2018-05-29 11:02 | Inpatient (IN) | payer MEDICARE, OTHER, SELFPAY ==
[2018-05-29 08:50] VITALS: BMI 34.8
[2018-05-29 11:20] VITALS: BP 127/76; PULSE 83; RESP 16; TEMP 36.9; O2SAT 94; BMI 34.8
--- NOTE | 2018-05-29 12:48 | PN_ITS ---
Progress Note DATE OF PREVIOUS HISTORY AND PHYSICAL - May 14, 2018. DATE OF PREVIOUS SURGERY - May 14, 2018. Patient underwent excision sacral pressure sore, Stage IV, and partial ostectomy for osteomyelitis on 05/14/18. She was treated perioperatively with Unasyn and then Augmentin. Operative cultures showed Staphylococcus epidermidis and Aren nebacterium minutissimum in the soft tissue and Corynebacterium minutissimum in the bone. Pathology was positive for osteomyelitis. It was recommended to the patient to start IV antibiotics to treat the osteomyelitis. Will start Vancomycin. A PICC line will be placed. Will continue the VAC for the sacral wound care to be changed three times per week at 150 mmHg continuous suction. Will followup at the Wound Center. Prealbumin at the time of surgery was 19.3. Will draw another one today. Encourage nutritional supplementation with protein to help the healing process.
--- NOTE | 2018-05-29 12:48 | NURSING ---
Return call from [facility], they will arrive between [id number] for PICC placement. Alfie OLIVER aware
[2018-05-29 13:10] LABS: Erythrocyte Sedimentation Rate 45 mm/hr (0-30)
[2018-05-29 13:13] LABS: Hemoglobin 11.1 g/dl (12.0-15.0); Mean Corpuscular Hgb 24.5 pg (27.0-32.0); Mean Corpuscular Volume 81.7 fL (81-99); Mean Platelet Vol. 8.8 fl (6.2-12.0); Platelet Count 530 K/mm3 (150-450); RBC Distribution Width CV 22.4 % (11.6-14.6); RBC Distribution Width SD 66.4 fl (35.1-43.9); Red Blood Count 4.53 M/mm3 (4.2-5.4); White Blood Count 14.7 K/mm3 (4.4-11.0)
[2018-05-29 13:14] LABS: Scan Indicated on CBC? Y/N YES- FLAGS NOTED
[2018-05-29 13:36] LABS: ALB/GLOB Ratio 0.7 RATIO (0.9-2.4); AST(SGOT) 15 U/L (15-37); Alanine Aminotransfer ALT/SGPT 16 U/L (13-56); Albumin, Serum 3.2 g/dL (3.2-5.0); Alkaline Phosphatase 84 U/L (45-117); Anion Gap 6 (5-15); BUN 26 mg/dL (7-18); BUN/Creat Ratio 39.3 RATIO (10-20); Calcium,Total 9.5 mg/dL (8.5-10.1); Chloride 110 mmol/L (98-107); Creatinine, Serum 0.66 mg/dL (0.55-1.02); EST Glomerular Filtration Rate 95 mL/min (>60); Est Glom Filt Rate - Afr Amer 115 mL/min (>60); Estimated Creatinine Clearance 47.79 ml/min; Globulin 4.5 g/dL (2.2-4.2); Glucose 89 mg/dL (74-106); Potassium 4.8 mmol/L (3.5-5.1); Protein, Total 7.7 g/dL (6.4-8.2); Sodium Level 144 mmol/L (136-145)
[2018-05-29] MEDS: Lactated Ringers 1,000 ML 15 ML IV (15:56)
[2018-05-29] MEDS: 0.9% NaCl Peripheral Flush Adult/Peds IV (16:03)
[2018-05-29] MEDS: Pantoprazole Sodium 40 MG Tablet PO (16:03)
--- NOTE | 2018-05-29 16:30 | PCM.RX.CS ---
Consult Pharmacy has been consulted to manage selected antiobiotic: Vancomycin Type of Consult: New start Suspected Infection: Skin/Soft tissue Prior Doses of Antibiotics Received/Current Regimen: Patient received loading dose of 2000mg iv x 1 on 05.29.18. Labs: Sodium 144 mmol/L (136-145) 05/29/18 12:50 Potassium 4.8 mmol/L (3.5-5.1) 05/29/18 12:50 Chloride 110 mmol/L (98-107) H 05/29/18 12:50 Carbon Dioxide 28.0 mmol/L (21.0-32.0) 05/29/18 12:50 Anion Gap 6 (5-15) 05/29/18 12:50 BUN 26 mg/dL (7-18) H 05/29/18 12:50 Creatinine 0.66 mg/dL (0.55-1.02) 05/29/18 12:50 Est GFR (MDRD) Af Amer 115 mL/min (>60) 05/29/18 12:50 Est GFR (MDRD) Non-Af 95 mL/min (>60) 05/29/18 12:50 BUN/Creatinine Ratio 39.3 RATIO (10-20) H 05/29/18 12:50 Glucose 89 mg/dL (74-106) 05/29/18 12:50 Weight used for dosin.07 kg Estimated Creatinine Clearance: ~48 ml/min Goal Trough: 15-20 mcg/mL Pharmacy Plan for Drug Dosing: Patient reviewed for weight (92.1kg), renal status (Cr 0.66, CrCl ~48). Will begin 750mg iv q12h starting with 2nd dose. Got 2000mg iv x 1 as loading dose. Vancomycin trough ordered before 4th dose on 05.31.18. Pharmacy Service will continue to monitor and adjust dosing as required. Follow-Up Labs: Trough Vancomycin - 05.31.18 @0330 before 0400 dose
[2018-05-29 17:20] VITALS: BP 138/60; PULSE 78; RESP 16; TEMP 36.8; O2SAT 95
[2018-05-29] MEDS: Docusate Sodium 100 MG Capsule PO (20:33)
[2018-05-29] MEDS: Acetaminophen 325 MG Tablet 650 MG PO (20:33)
[2018-05-29 20:45] VITALS: BP 117/52; PULSE 82; RESP 18; TEMP 36.8; O2SAT 95
[2018-05-30 03:23] VITALS: BP 121/64; PULSE 72; RESP 18; TEMP 36.8; O2SAT 97
[2018-05-30] MEDS: 0.9% NaCl Peripheral Flush Adult/Peds IV (06:07)
[2018-05-30] MEDS: Levothyroxine 25 MCG TABLET PO (06:08)
[2018-05-30] MEDS: Acetaminophen 325 MG Tablet 650 MG PO ×3 (06:14→21:12)
[2018-05-30 06:40] LABS: Anion Gap 8 (5-15); BUN 21 mg/dL (7-18); Calcium,Total 8.6 mg/dL (8.5-10.1); Chloride 109 mmol/L (98-107); Creatinine, Serum 0.52 mg/dL (0.55-1.02); EST Glomerular Filtration Rate 124 mL/min (>60); Est Glom Filt Rate - Afr Amer 150 mL/min (>60); Estimated Creatinine Clearance 47.79 ml/min; Glucose 90 mg/dL (74-106); Potassium 3.9 mmol/L (3.5-5.1); Sodium Level 143 mmol/L (136-145)
[2018-05-30 06:44] LABS: Hematocrit 33.4 % (37-47); Hemoglobin 10.1 g/dl (12.0-15.0); Mean Corp Hgb Conc 30.2 g/gl (32-36); Mean Corpuscular Hgb 24.9 pg (27.0-32.0); Mean Corpuscular Volume 82.3 fL (81-99); Mean Platelet Vol. 9.2 fl (6.2-12.0); Platelet Count 490 K/mm3 (150-450); RBC Distribution Width CV 22.5 % (11.6-14.6); RBC Distribution Width SD 66.6 fl (35.1-43.9); Red Blood Count 4.06 M/mm3 (4.2-5.4); White Blood Count 9.9 K/mm3 (4.4-11.0)
[2018-05-30 06:46] LABS: Scan Indicated on CBC? Y/N YES- FLAGS NOTED
[2018-05-30 07:13] LABS: Differential Comment SCAN
[2018-05-30 08:36] VITALS: BP 131/81; PULSE 93; RESP 18; TEMP 36.7; O2SAT 94
[2018-05-30] MEDS: Aspirin E.C. 81 MG Tablet PO (08:37)
[2018-05-30] MEDS: Iron Polysaccharide Complex 150 MG CAPSULE PO (08:37)
[2018-05-30] MEDS: Docusate Sodium 100 MG Capsule PO ×2 (08:38→21:12)
[2018-05-30] MEDS: Omega-3 Acid Ethyl Esters 1 GM Capsule PO (08:38)
[2018-05-30] MEDS: Ascorbic Acid 500 MG Tablet PO (08:39)
--- NOTE | 2018-05-30 10:45 | CASEMGMT ---
MELODY GOMEZ Face to Face with patient for initial transition planning/care coordination assessment. RN PATRICIA introduced self and role at [facility]. Patient lying in bed, alert and oriented. Patient willing to participate in assessment and is able to answer all questions appropriately. Care providers, pharmacy, and demographics verified. Patient wishes to discharge home and is already setup with [facility] for residential. Patient wishes to resume HHC at discharge. MELODY GOMEZ discussed need for IV ATBs for at home and potential cost. Patient upset and tearful when updated about cost of IV ATB and for how long ATB will be for. Also discussed potential need for SNF if patient is unable to perfomr IV ATB herself. Patient states that she cannot afford either and if needed would not complete IV ATB therapy. Patient states she has no further needs or concerns at this time. LORNA Ambriz updated regarding financial needs and possible place. Dr. Hansen updated regarding patient's concerns for cost of care. CM to sent referral to I regarding cost of IV ATB. CM to follow for discharge planning needs that may arise. PCP: Daniel Specialists: None Preferred Pharmacy: [facility] Insurance: [facility], [facility] Prescription Benefit: YES Living Will/HPOA: Yes, brother Jaspal Durant HPOA LNOK: Brother Living Arrangements: Patient lives alone in 1 story home with 2 steps to enter home. Has assistance with laundry Transportation: Self, [facility] transport van DME/HHC: Patient has cane and walker. [facility] for HHC Disposition Plan: Patient to discharge home with family support, HHC, and follow-up plans in place.
--- NOTE | 2018-05-30 12:48 | CHAPLAIN ---
Type of Pastoral Visit _x__ Initial Visit ___ Follow-up Visit ___ On-call Visit ___ General Patient Visit ___ Spiritual Assessment ___ Family Conference ___ Bereavement ___ Rapid Response ___ Code Blue ___ Other (describe below) Pastoral Care Referral From _x__ Patient ___ Family ___ Nurse ___ Physician ___ Gray Mixing Operator _x__ Cloth Shrinking Tester ___ Other (describe below) Sacrament/Intervention _x__ Active listening ___ Anointing ___ Scientology ___ Bereavement ___ Communion _x__ Mayra exploration ___ _x__ Life review _x__ Prayer ___ Reconciliation ___ Sacrament of Sick _x__ Supportive presence ___ Wedding ___ Other (describe below) Pastoral Comments patient is tearful at news of need for IV treatments over the next 40 days; pt has spiritual doubts that were discussed; pt is worried about getting help at home for daily needs; pt is reluctant to ask for help but also states that her support system is very small; pt family is not accessible for daily care; pt says her goals are simply to get her own groceries, walk without assistance, and care for herself; pt states I don't know how I can do this; pt asks for prayer support and is open to future visits with the castables worker
[2018-05-30] MEDS: Pantoprazole Sodium 40 MG Tablet PO (13:10)
[2018-05-30 14:00] VITALS: BP 138/83; PULSE 98; RESP 18; TEMP 37.1; O2SAT 97
--- NOTE | 2018-05-30 16:22 | CASEMGMT ---
Social Work Note MELODY Schaefer updated this worker that pt and pt's friend would like to check benefits and what the cost of pt going to SNF would be. MELODY Schaefer informed this worker that pt has no preference in SNF. LORNA placed a call to Marlene at [facility]. Marlene states that she is able to check benefits if this worker sends referral. LORNA faxed referral to Marlene. LORNA spoke with Marlene who is inquiring when pt was last at SNF. LORNA met with pt and pt's friend. Pt states that the last time she was at SNF was December and she was there for 10 days. Pt states that SNF was [facility] in [place], [place]. LORNA placed a call back to Marlene and updated her on this information. Per Marlene pt will be covered 100% for 100 days. Marlene states that pt has all Medicare days to use and AARP will cover copay at 100%. Dr. Hansen spoke with pt. Per Dr. Hansen he consulted ID to get ID recommendations for pt as pt is adamant she would prefer to go home instead of SNF. Dr. Hansen states he spoke with pt about TCU and pt would be more willing to go to TCU at [facility]. LORNA explained that this worker will have to check on bed availability. LORNA placed a call to referral line and provided referral. LORNA spoke with Sally who states TCU is able to accept pt Sunday. LORNA and MELODY GOMEZ will continue to follow along to assist with discharge planning. ID to see patient and make their recommendations. Plan: TCU Sunday vs Home with [facility] Ksenia Ambriz ENGINEER SECOND ASSISTANT, JOURNALISM INTERN
[2018-05-30 19:54] VITALS: BP 145/84; PULSE 90; RESP 18; TEMP 36.9; O2SAT 98
[2018-05-30 20:03] VITALS: PULSE 90; RESP 18; O2SAT 98
--- NOTE | 2018-05-30 21:51 | PCM.PN.SRG ---
Patient Problems: Active and Suspected Problems (Last Reviewed 05/16/18 @ 14:58 by Raúl Villareal DO) Surgical wound present (Acute) Subjective: Postop #16 Patient is resting comfortably. She is tearful because she can't afford the antibiotic copay at home. - Physical Exam General: Alert, Oriented x3 HEENT: PERRLA, EOMI Oral: Moist Mucosa Neck: Supple Abdomen: Soft, Non-Distended Skin: Ulcer/ Wound - sacral wound stable. VAC in place. Minimal drainage in the canister. Neurological: Cranial nerves II-XII grossly intact Psych/Mental Status: Normal Affect, Appropriate Vital Signs Temp Pulse Resp BP Pulse Ox 98.5 F 90 18 145/84 H 98 05/30/18 19:54 05/30/18 20:03 05/30/18 20:03 05/30/18 19:54 05/30/18 20:03 Oxygen Delivery Method Room Air Weight: 202 lb 15.991 oz Body Mass Index (BMI) 34.8 Intake and Output for Last 24 Hours 05/28/18 05/29/18 05/30/18 23:59 23:59 23:59 Intake Total 2661 / 2661 Balance 2661 / 2661 Laboratory Tests Past 24 Hrs 05/30/18 05/30/18 06:14 06:14 WBC 9.9 RBC 4.06 L Hgb 10.1 L Hct 33.4 L MCV 82.3 MCH 24.9 L MCHC 30.2 L RDW 22.5 H RDW Differential 66.6 H Plt Count 490 H MPV 9.2 Differential Comment SCAN Sodium 143 Potassium 3.9 Chloride 109 H Carbon Dioxide 26.0 Anion Gap 8 BUN 21 H Creatinine 0.52 L Estim Creat Clear Calc 47.79 Est GFR (MDRD) Af Amer 150 Est GFR (MDRD) Non-Af 124 BUN/Creatinine Ratio 40.0 H Glucose 90 Calcium 8.6 Medical Necessity - Tobacco Use Smoking Status: Former smoker Assessment/Plan All Active Problems (Last Reviewed 05/16/18 @ 14:58 by Raúl Villareal DO) Acute osteomyelitis of sacrum (Acute) Acute blood loss anemia (Acute) Surgical wound present (Acute) Preop cardiovascular exam (Acute) Colovaginal fistula (Acute) Failure to thrive (Acute) Clostridium difficile colitis (Acute) Septic shock (Resolved) IVTO (acute kidney injury) (Resolved) Encephalopathy (Resolved) Atrial fibrillation with RVR (Resolved) Clostridium difficile infection (Resolved) Rhabdomyolysis (Resolved) 1. Sacral pressure sore, Stage IV. 2. Osteomyelitis. 3. s/p repair colovaginal fistula. 4. s/p excision sacral pressure sore, Stage IV, with partial ostectomy for osteomyelitis. VAC in place. To be changed tomorrow. Continue IV Vancomycin. Patient is tearful about not being able to afford the antibiotic copay for her home antibiotics. Will have her evaluated by TCU. Prealbumin is 22.0. Encourage nutritional supplementation with protein to help the healing process. Will have Infectious Diseases evaluate for antibiotic management for her osteomyelitis.
[2018-05-31 02:00] VITALS: BP 119/56; PULSE 78; RESP 18; TEMP 36.6; O2SAT 96
[2018-05-31] MEDS: Acetaminophen 325 MG Tablet 650 MG PO ×3 (03:15→19:58)
[2018-05-31 03:44] LABS: Hematocrit 34.7 % (37-47); Hemoglobin 10.6 g/dl (12.0-15.0); Mean Corp Hgb Conc 30.5 g/gl (32-36); Mean Corpuscular Volume 81.8 fL (81-99); Platelet Count 533 K/mm3 (150-450); RBC Distribution Width CV 22.5 % (11.6-14.6); RBC Distribution Width SD 66.1 fl (35.1-43.9); Red Blood Count 4.24 M/mm3 (4.2-5.4); White Blood Count 10.7 K/mm3 (4.4-11.0)
[2018-05-31 03:49] LABS: Scan Indicated on CBC? Y/N YES- FLAGS NOTED
[2018-05-31 04:28] LABS: Vancomycin, Trough Level 7.9 ug/mL (5.0-15.0)
[2018-05-31 04:45] LABS: Anion Gap 10 (5-15); BUN 23 mg/dL (7-18); BUN/Creat Ratio 39.1 RATIO (10-20); Calcium,Total 9.1 mg/dL (8.5-10.1); Chloride 109 mmol/L (98-107); Creatinine, Serum 0.59 mg/dL (0.55-1.02); Differential Comment SCAN; EST Glomerular Filtration Rate 109 mL/min (>60); Est Glom Filt Rate - Afr Amer 131 mL/min (>60); Estimated Creatinine Clearance 47.79 ml/min; Glucose 92 mg/dL (74-106); Potassium 4.1 mmol/L (3.5-5.1); Sodium Level 144 mmol/L (136-145)
--- NOTE | 2018-05-31 05:02 | PCM.RX.CS ---
Consult Pharmacy has been consulted to manage selected antiobiotic: Vancomycin Type of Consult: Follow-up Suspected Infection: Osteomyelitis Prior Doses of Antibiotics Received/Current Regimen: Medications Vancomycin HCl 1,500 mg/ (Sodium Chloride) 530 mls @ 250 mls/hr IV Q12H ELOISA Discontinued Medications Vancomycin HCl 750 mg/ Sodium (Chloride) 265 mls @ 250 mls/hr IV Q12H ELOISA Last Admin: 05/31/18 04:04 Dose: 250 mls/hr Labs: Sodium 144 mmol/L (136-145) 05/31/18 03:30 Potassium 4.1 mmol/L (3.5-5.1) 05/31/18 03:30 Chloride 109 mmol/L (98-107) H 05/31/18 03:30 Carbon Dioxide 25.0 mmol/L (21.0-32.0) 05/31/18 03:30 Anion Gap 10 (5-15) 05/31/18 03:30 BUN 23 mg/dL (7-18) H 05/31/18 03:30 Creatinine 0.59 mg/dL (0.55-1.02) 05/31/18 03:30 Est GFR (MDRD) Af Amer 131 mL/min (>60) 05/31/18 03:30 Est GFR (MDRD) Non-Af 109 mL/min (>60) 05/31/18 03:30 BUN/Creatinine Ratio 39.1 RATIO (10-20) H 05/31/18 03:30 Glucose 92 mg/dL (74-106) 05/31/18 03:30 Vancomycin Trough 7.9 ug/mL (5.0-15.0) 05/31/18 03:30 Weight used for dosin.1 kg Estimated Creatinine Clearance: 48 Goal Trough: 15-20 mcg/mL Pharmacy Plan for Drug Dosing: Trough level was low at 7.9. Dose increased to 1500mg q 12 hours. Will redraw trough in 4 doses. Pharmacy Service will continue to monitor and adjust dosing as required. Follow-Up Labs: Trough Vancomycin Labs to be done on [date and time ordered]: 06/01/18 @3213
[2018-05-31] MEDS: Levothyroxine 25 MCG TABLET PO (06:22)
[2018-05-31 08:00] VITALS: BP 151/90; PULSE 79; RESP 18; TEMP 36.8; O2SAT 98
[2018-05-31] MEDS: Iron Polysaccharide Complex 150 MG CAPSULE PO (08:43)
[2018-05-31] MEDS: Aspirin E.C. 81 MG Tablet PO (08:43)
[2018-05-31] MEDS: Ascorbic Acid 500 MG Tablet PO (09:00)
[2018-05-31] MEDS: Docusate Sodium 100 MG Capsule PO ×2 (09:00→19:58)
[2018-05-31] MEDS: Omega-3 Acid Ethyl Esters 1 GM Capsule PO (09:00)
--- NOTE | 2018-05-31 09:00 | CASEMGMT ---
Received call from [facility] regarding IV ATB cost. Cost for supplies is $20 per day and IV Vanco is $60 per weekly dispense for estimated cost of $1160. MELODY GOMEZ updated SW.
--- NOTE | 2018-05-31 12:09 | NURSING ---
wound photo: sacrum
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
--- NOTE | 2018-05-31 13:44 | CASEMGMT ---
Social Work Note LORNA met with pt and pt's friend. LORNA informed pt that per RN CM the cost for IV antibiotics and wound care at home is going to be $1100. LORNA informed pt that per this worker's conversation with SNF yesterday, AARP will cover copay days for pt at SNF. Pt asked this worker about TCU. LORNA explained that Dr. Hansen had mentioned to this worker yesterday about TCU and TCU is able to accept pt tomorrow. Pt and pt's friend state understanding. LORNA placed a call to [facility] and updated Danae that pt will be going to TCU tomorrow. Green sheet on chart. Plan: TCU tomorrow Ksenia Ambriz MATZO FORMING MACHINE OPERATOR, OPTICAL INSTRUMENT ASSEMBLER
[2018-05-31 14:00] VITALS: BP 144/78; PULSE 88; RESP 16; TEMP 37.2; O2SAT 98
[2018-05-31] MEDS: Pantoprazole Sodium 40 MG Tablet PO (14:56)
[2018-05-31 19:51] VITALS: BP 156/71; PULSE 88; RESP 18; TEMP 36.9; O2SAT 98
[2018-05-31 20:07] VITALS: PULSE 88; RESP 18; O2SAT 98
--- NOTE | 2018-05-31 22:18 | PCM.PN.SRG ---
Patient Problems: Active and Suspected Problems (Last Reviewed 05/16/18 @ 14:58 by Raúl Villareal DO) Surgical wound present (Acute) Subjective: Postop #17 Patient is resting comfortably. - Physical Exam General: Alert, Oriented x3 HEENT: PERRLA, EOMI Oral: Moist Mucosa Neck: Supple Abdomen: Soft, Non-Distended Skin: Ulcer/ Wound - sacral wound is stable. VAC is changed today. Minimal drainage in the canister. Neurological: Cranial nerves II-XII grossly intact Psych/Mental Status: Normal Affect, Appropriate Vital Signs Temp Pulse Resp BP Pulse Ox 98.4 F 88 18 156/71 H 98 05/31/18 19:51 05/31/18 20:07 05/31/18 20:07 05/31/18 19:51 05/31/18 20:07 Oxygen Delivery Method Room Air Weight: 202 lb 15.991 oz Body Mass Index (BMI) 34.8 Intake and Output for Last 24 Hours 05/29/18 05/30/18 05/31/18 23:59 23:59 23:59 Intake Total 2661 / 2661 703 / 703 Balance 2661 / 2661 703 / 703 Laboratory Tests Past 24 Hrs 05/31/18 05/31/18 05/31/18 03:30 03:30 03:30 WBC 10.7 RBC 4.24 Hgb 10.6 L Hct 34.7 L MCV 81.8 MCH 25.0 L MCHC 30.5 L RDW 22.5 H RDW Differential 66.1 H Plt Count 533 H MPV 9.0 Differential Comment SCAN Sodium 144 Potassium 4.1 Chloride 109 H Carbon Dioxide 25.0 Anion Gap 10 BUN 23 H Creatinine 0.59 Estim Creat Clear Calc 47.79 Est GFR (MDRD) Af Amer 131 Est GFR (MDRD) Non-Af 109 BUN/Creatinine Ratio 39.1 H Glucose 92 Calcium 9.1 Vancomycin Trough 7.9 Medical Necessity - Tobacco Use Smoking Status: Former smoker Assessment/Plan All Active Problems (Last Reviewed 05/16/18 @ 14:58 by Raúl Villareal DO) Acute osteomyelitis of sacrum (Acute) Acute blood loss anemia (Acute) Surgical wound present (Acute) Preop cardiovascular exam (Acute) Colovaginal fistula (Acute) Failure to thrive (Acute) Clostridium difficile colitis (Acute) Septic shock (Resolved) VITO (acute kidney injury) (Resolved) Encephalopathy (Resolved) Atrial fibrillation with RVR (Resolved) Clostridium difficile infection (Resolved) Rhabdomyolysis (Resolved) 1. Sacral pressure sore, Stage IV. 2. Osteomyelitis. 3. s/p repair colovaginal fistula. 4. s/p excision sacral pressure sore, Stage IV, with partial ostectomy for osteomyelitis. VAC changed today. Patient tolerated ok. Infectious Diseases input appreciated. They recommend continuing IV Vancomycin for the osteomyelitis. TCU evaluation in process. She won't be able to afford the antibiotic copay at home. Prealbumin is 22.0. Encourage nutritional supplementation with protein to help the healing process.
[2018-06-01] MEDS: Acetaminophen 325 MG Tablet 650 MG PO ×2 (03:50→14:54)
[2018-06-01 04:00] VITALS: BP 125/63; PULSE 73; RESP 18; TEMP 37; O2SAT 93
[2018-06-01] MEDS: Levothyroxine 25 MCG TABLET PO (05:47)
[2018-06-01 07:53] VITALS: BP 111/63; PULSE 71; RESP 16; TEMP 37.2; O2SAT 95
[2018-06-01] MEDS: Aspirin E.C. 81 MG Tablet PO (08:05)
[2018-06-01] MEDS: Iron Polysaccharide Complex 150 MG CAPSULE PO (08:06)
[2018-06-01] MEDS: Docusate Sodium 100 MG Capsule PO (08:06)
[2018-06-01] MEDS: Omega-3 Acid Ethyl Esters 1 GM Capsule PO (08:07)
[2018-06-01] MEDS: Ascorbic Acid 500 MG Tablet PO (08:07)
--- NOTE | 2018-06-01 12:31 | PCM.PN.SRG ---
Subjective: Postop #18 Patient is resting comfortably. - Physical Exam General: Alert, Oriented x3 HEENT: PERRLA, EOMI Oral: Moist Mucosa Neck: Supple Abdomen: Soft, Non-Distended Skin: Ulcer/ Wound - sacral wound is stable. VAC in place. Minimal drainage in the canister. Neurological: Cranial nerves II-XII grossly intact Psych/Mental Status: Normal Affect, Appropriate Vital Signs Temp Pulse Resp BP Pulse Ox 98.9 F 71 16 111/63 95 06/01/18 07:53 06/01/18 07:53 06/01/18 07:53 06/01/18 07:53 06/01/18 07:53 Oxygen Flow Rate (L/min) 2.5 Oxygen Delivery Method Room Air Weight: 202 lb 15.991 oz Body Mass Index (BMI) 34.8 Intake and Output for Last 24 Hours 05/30/18 05/31/18 06/01/18 23:59 23:59 23:59 Intake Total 2661 / 2661 703 / 703 1638 / 1638 Balance 2661 / 2661 703 / 703 1638 / 1638 Medical Necessity - Tobacco Use Smoking Status: Former smoker Assessment/Plan All Active Problems (Last Reviewed 05/16/18 @ 14:58 by Raúl Villareal DO) Acute osteomyelitis of sacrum (Acute) Acute blood loss anemia (Acute) Surgical wound present (Acute) Preop cardiovascular exam (Acute) Colovaginal fistula (Acute) Failure to thrive (Acute) Clostridium difficile colitis (Acute) Septic shock (Resolved) VITO (acute kidney injury) (Resolved) Encephalopathy (Resolved) Atrial fibrillation with RVR (Resolved) Clostridium difficile infection (Resolved) Rhabdomyolysis (Resolved) 1. Sacral pressure sore, Stage IV. 2. Osteomyelitis. 3. s/p repair colovaginal fistula. 4. s/p excision sacral pressure sore, Stage IV, with partial ostectomy for osteomyelitis. VAC in place. Minimal drainage in the canister. Continue IV Vancomycin for 6 weeks for the osteomyelitis. TCU has been approved. Discharge today. Prealbumin is 22.0. Encourage nutritional supplementation with protein to help the healing process. Wrote scripts for OxyIR for pain (50 tabs) and for Valium for spasm (30 tabs). After discharge from TCU, followup at the [facility].
--- NOTE | 2018-06-01 12:32 | PCM.TXEXTCAR ---
- Diet 05/29/18 11:56 Diet: Regular Diet Is pt able to select menu?: Yes Encourage nutritional supplementation with protein to help the healing process. - Routine Orders/Code Status Routine Lab Work: CBC - qMonday., - - CMP, CRP, ESR, Vancomycin Trough qMonday. Pharmacy to dose the Vancomycin. Code Status: Full Code - Wound(s) sacrum Wound Type: Open Surgical Wound Dressing Change: KCI wound VAC - Suggestions for Active Care Hours to sit in a chair: 6 - as tolerated Times a day to sit in chair: 3 - as tolerated - Therapies Weight Bearing: Weight bearing as tolerated Physical Therapy: Eval and Treat - Problem/Diagnosis (1) Pressure ulcer of sacral region, stage 4 Status: Chronic Current Visit: Yes (2) Acute osteomyelitis of sacrum Status: Acute Current Visit: Yes - Allergies/Procedures Done in Hospital Allergies/Adverse Reactions: Allergies bee venom protein (honey bee) Allergy (Verified 04/19/18 13:56) Angioedema metaxalone [From Skelaxin] Allergy (Verified 04/19/18 13:56) Swelling Procedures: PICC line placement, Wound Vac placement - Type of Care/Length of Stay Estimated LOS: More Than 30 Days Type of Care Needed: Skilled Rehab Potential: Fair Prognosis: Fair - Additional Orders/Day of Discharge Additional Orders: Vancomycin IV for 6 weeks. H&P will serve as current which was dated: 05/14/18 Day of Discharge: 06/01/18 - Dietary and Speech Recommendations Dietitian Recommendations/Changes: Continue 1 packet of Teofilo 2x/day for wound healing - Follow Up Care Primary Care Physician: Chema Sanchez Chi, MD [Primary Care Provider] - Please Follow Up With: Regino Hansen MD When: after discharge from TCU at wound center. call [phone] for appt.
--- NOTE | 2018-06-01 12:48 | DS.PCM_ITS ---
Discharge Date and Diagnosis Date of Admission: 05/29/18 Date of Discharge: 06/01/18 - Primary Discharge Diagnosis Acute osteomyelitis of sacrum - Secondary Discharge Diagnosis Secondary pulmonary arterial hypertension Non-rheumatic tricuspid valve insufficiency Essential (primary) hypertension Pressure ulcer of right heel, stage 3 Pressure ulcer of left heel, stage 3 Morbid obesity with BMI of 40.0-44.9 GERD (gastroesophageal reflux disease) Depression Hypothyroidism Pressure ulcer of sacral region, stage 4 Neuropathy Hospital Course and Treatment Imaging Results: None. Consultations 05/30/18 06:48 Consult: Onc/Wound/director of quantitative research Routine Comment: Reason for Consult:: vac sacrum Infectious Diseases - Dr. Preston. Operations: None Procedures: PICC line placement, Wound vac placement Summary of Care Provided: 67 year old woman presented with a sacral pressure sore and associated osteomyelitis. She had recent surgery on 05/14/18, where she was taken to the OR and underwent excision sacral pressure sore, Stage IV, with partial ostectomy for osteomyelitis. Operative culture showed Corynebacterium minutissimum and Staphylococcus epidermidis in the soft tissue and Corynebacterium minutissimum in the bone. She was initially discharged home on Augmentin. When the Pathology results came back showing acute osteomyelitis, it was recommended to the patient that she needed IV antibiotics and the placement of a PICC line. So on 05/29/18, she was admitted to the hospital to continue wound care with the VAC to the sacral pressure sore and to have a PICC line inserted and IV antibiotics started with Vancomycin. WBC improved from 14.7 at admission to 10.7 at discharge. Her Hgb was stable from 11.1 at admission to 10.6 at discharge. Her inflammatory markers showed CRP was 26.00 and ESR was 45 at admission. Infectious Diseases was consulted and they agreed that IV Vancomycin was necessary for 6 weeks secondary to the osteomyelitis. Initially we were going to send her home for the IV antibiotics. However the copay per month was over $1000 and the patient stated she couldn't afford that. So she was discharged on the 3rd hospital day after she was approved to go to TCU for continued IV antibiotics with Vancomycin and continued wound care with the VAC. Her Prealbumin on admission was 22.0. Encouraged nutritional supplementation with protein to help the healing process. After discharge from TCU, she [facility]up [facility]. Wrote scripts for OxyIR for pain (50 tabs) and for Valium for spasm (30 tabs). Subjective: Patient resting comfortably. - Physical Exam General: Alert, Oriented x3 HEENT: PERRLA, EOMI Oral: Moist Mucosa Neck: Supple Abdomen: Soft, Non-Distended Skin: Ulcer/ Wound - sacral wound is stable. VAC in place. Minimal drainage in the canister. Neurological: Cranial nerves II-XII grossly intact Psych/Mental Status: Normal Affect, Appropriate Vital Signs Temp Pulse Resp BP Pulse Ox 98.9 F 71 16 111/63 95 06/01/18 07:53 06/01/18 07:53 06/01/18 07:53 06/01/18 07:53 06/01/18 07:53 Oxygen Flow Rate (L/min) 2.5 Oxygen Delivery Method Room Air Weight: 202 lb 15.991 oz Body Mass Index (BMI) 34.8 Intake and Output for Last 24 Hours 05/30/18 05/31/18 06/01/18 23:59 23:59 23:59 Intake Total 2661 / 2661 703 / 703 1638 / 1638 Balance 2661 / 2661 703 / 703 1638 / 1638 Discharge Diet: No Restrictions, - - encourage nutritional supplementation with protein to help the healing process. Discharge Activity: May Shower - on the days the vac is changed. May shower in (days): 2 - may shower on the days the vac is changed. Weight Bearing Status: Weight bearing as tolerated Call your doctor if your incision/area has: Continuous Slow Oozing, Sudden Increased Bleeding, Increased Pain/ Swelling, Increased Redness, Foul Smelling Discharge, Swelling at the incision site Call your doctor if you observe: Fever of 101 or Higher, Coldness, Increased Pain, Shortness of breath, Chest pain, Calf discomfort, Uncontrolled pain Suture Line Care: - - vac change three times per week at 150 mmHg continuous suction. Change Dressing in (Days):: 2 - vac changes three times per week. Cleanse incision/area with: Soap & Water - may cleanse the sacral wound with soap and water on the days the vac is changed. Additional Dressing/Incision Instructions:: Nursing to do the vac changes to sacral wound three times per week at 150 mmHg continuous suction. Nursing may cleanse the sacral wound with soap and water at the time of the vac change. Home Medications: Medications to take at Discharge Levothyroxine [Synthroid] 25 mcg PO DAILY 03/02/17 cholecalciferol (vitamin D3) 50,000 unit capsule 50,000 unit PO QMONTH 08/02/17 Ascorbic Acid 500 mg PO DAILY 08/21/17 Potassium Chloride [K-Dur] 40 meq PO DAILY 12/26/17 Aspirin E.C. [Ecotrin] 81 mg PO DAILY 04/11/18 Omeprazole 40 mg PO 1400 04/11/18 green tea leaf extract capsule 1 cap PO DAILY cap 04/19/18 omega-3 fatty acids 1,000 mg capsule 1,000 mg PO DAILY 04/19/18 Acetaminophen [Tylenol Tablet] 650 mg PO Q6H PRN PRN tablet 05/17/18 0.9% Saline Lock 10 - 20 ml IV UD PRN syringe 06/01/18 Diazepam [Valium] 5 mg PO 4X/DAY PRN PRN #30 tab 06/01/18 Docusate Sodium [Colace] 100 mg PO BID 06/01/18 Heparin Pf Lock 10 units/ml 50 units IV UD PRN syringe 06/01/18 Iron Polysaccharide Complex [Ferrex 150] 150 mg PO DAILYCM 06/01/18 Nutritional Supplement [Teofilo - ORANGE FLAVOR] 1 packet PO BIDCM 06/01/18 Oxycodone [Oxyir] 10 mg PO Q4H PRN PRN 7 Days #50 tab 06/01/18 Vancomycin IV 1,500 mg IV Q12H 06/01/18 Vancomycin IV 750 mg IV Q12H 06/01/18 Vancomycin IV Pharmacy to Dose 1 ea IV PRN PRN each 06/01/18 proMETHazine tablet [Phenergan tablet] 25 mg PO Q4H PRN PRN tablet 06/01/18 Following Prescrptions Were Given to Patient: Oxycodone [Oxyir] 10 mg PO Q4H PRN PRN 7 Days #50 tab PRN Reason: Severe Pain (6-10) Diazepam [Valium] 5 mg PO 4X/DAY PRN PRN #30 tab PRN Reason: Spasms Primary Care Physician: Chema Sanchez Chi, MD [Primary Care Provider] - Please Follow Up With: Regino Hansen MD When: after discharge from TCU at wound center. call [phone] for appt. Additional Instructions: Nursing to check CBC, CMP, ESR, CRP, Vancomycin Trough qweekly. Pharmacy to dose the Vancomycin. Disposition: [facility] facility Minutes spent on discharge:: 35 Medical Necessity - Tobacco Use Smoking Status: Former smoker Meaningful Use Info Meaningful Use Diagnoses (Choose all that apply): None applicable
[2018-06-01 13:52] VITALS: BP 117/66; PULSE 92; RESP 16; TEMP 37; O2SAT 95
[2018-06-01] MEDS: Pantoprazole Sodium 40 MG Tablet PO (14:54)
== END 2018-06-01 15:15 | disposition skilled nursing facility (03) | DRG 463 ==
PROVIDERS: Admitting Provider Surgery; Family Provider Family Medicine Geriatric Medicine; PCP Family Medicine Geriatric Medicine; Referring Provider Surgery; Visit Provider Surgery
DX: M46.28 Osteomyelitis of vertebra, sacral and sacrococcygeal region (principal); L89.154 Pressure ulcer of sacral region, stage 4; Z87.891 Personal history of nicotine dependence; B96.89 Other specified bacterial agents as the cause of diseases classified elsewhere; B95.7 Other staphylococcus as the cause of diseases classified elsewhere; T81.89XA Other complications of procedures, not elsewhere classified, initial encounter; Y83.8 Other surgical procedures as the cause of abnormal reaction of the patient, or of later complication, without mention of misadventure at the time of the procedure
CPT/HCPCS: 11043; 11046; 36415; 36569; 80048; 80053; 80202; 84134; 85027; 85652; 86140; 97162; 97165; 97530; J7040; J7050; J7120; A4216

== ENCOUNTER 2018-06-01 15:00 | Inpatient (IN) | payer MEDICARE, OTHER, SELFPAY ==
[2018-05-29 11:20] VITALS: BMI 34.8
--- NOTE | 2018-06-01 15:00 | NURSING ---
pt arrived from [facility] via bed, oriented to room and call light
[2018-06-01 15:37] VITALS: BP 161/90; PULSE 100; RESP 16; RESP 18; TEMP 36.3; O2SAT 93; BMI 34.8; BMI 34.9
[2018-06-01 16:23] LABS: Vancomycin, Trough Level 14.1 ug/mL (5.0-15.0)
[2018-06-01] MEDS: 0.9% NaCl IVPB Med Flush (250 mL) 15 ML IV (17:28)
[2018-06-01] MEDS: 0.9% Saline Lock 10 ML Syringe IV (17:28)
[2018-06-01] MEDS: Docusate Sodium 100 MG Capsule PO (17:29)
--- NOTE | 2018-06-01 17:59 | PCM.HP.STD ---
Problem List (1) Hypertension Status: Chronic (2) Acute osteomyelitis of sacrum Status: Acute (3) GERD (gastroesophageal reflux disease) Status: Chronic (4) Depression Status: Chronic (5) Hypothyroidism Status: Chronic (6) Pressure ulcer of sacral region, stage 4 Status: Chronic (7) Neuropathy Status: Chronic History of Present Illness Date of Admission: 06/01/18 Chief Complaint: Here for rehabilitation, strengthening, wound care, intravenous antibiotics prior to dischage home. The patient is a 67 year old Female with below past medical history with stage [address] negative for osteomyelitis. Positive for colovesical fistula, repaired at [facility] December 2017. Dr. Hansen performed debridement, partial ostectomy for osteomyelitis 05/14/2018. Cultures grew S. Epi, C. Minutissimum. Admit for IV Vancomycin for osteomyelitis. 05/31/2018 Dr. Preston noted Corynebacterium, MSSE, recent cultures grew MSSA. Recommend Vancomycin IV for 6 weeks, PICC line placed. 06/01/2018 Admit to TCU for debility, here for rehabilitation, strengthening, wound care, intravenous antibiotics. Dr. Preston, Dr. Hansen following. Past Medical History Past Medical History (Chronic Problems): Chronic Problems (Last Reviewed 05/16/18 @ 14:58 by Raúl Villareal DO) Hypertension (Chronic) Secondary pulmonary arterial hypertension (Chronic) Non-rheumatic tricuspid valve insufficiency (Chronic) Abnormal electrocardiogram (Chronic) Essential (primary) hypertension (Chronic) Non-healing surgical wound (Chronic) Pressure ulcer of right heel, stage 3 (Chronic) Pressure ulcer of left heel, stage 3 (Chronic) Morbid obesity with BMI of 40.0-44.9, adult (Chronic) GERD (gastroesophageal reflux disease) (Chronic) Depression (Chronic) Hypothyroidism (Chronic) Pressure ulcer of sacral region, stage 4 (Chronic) Neuropathy (Chronic) Medical History: Medical History (Last Reviewed 05/16/18 @ 14:58 by Raúl Villareal DO) Secondary pulmonary arterial hypertension (Chronic) I27.21 Non-rheumatic tricuspid valve insufficiency (Chronic) I36.1 Essential (primary) hypertension (Chronic) I10 Morbid obesity with BMI of 40.0-44.9, adult (Chronic) E66.01, Z68.41 GERD (gastroesophageal reflux disease) (Chronic) K21.9 Hypothyroidism (Chronic) E03.9 Atrial fibrillation with RVR (Resolved) I48.91 Abnormal Pap smear of cervix R87.619 Anemia D64.9 Back pain M54.9 GERD (gastroesophageal reflux disease) K21.9 Heart murmur R01.1 Sacral wound S31.000A Thyroid disorder E07.9 anixety and depression Hypertension I10 Allergies bee venom protein (honey bee) Allergy (Verified 04/19/18 13:56) Angioedema metaxalone [From Skelaxin] Allergy (Verified 04/19/18 13:56) Swelling Home Medications: Ambulatory Orders Medication Instructions Recorded Levothyroxine [Synthroid] 25 mcg PO DAILY 03/02/17 cholecalciferol (vitamin D3) 50,000 unit PO QMONTH 08/02/17 50,000 unit capsule Ascorbic Acid 500 mg PO DAILY 08/21/17 Potassium Chloride [K-Dur] 40 meq PO DAILY 12/26/17 Aspirin E.C. [Ecotrin] 81 mg PO DAILY 04/11/18 Omeprazole 40 mg PO 1400 04/11/18 green tea leaf extract capsule 1 cap PO DAILY cap 04/19/18 omega-3 fatty acids 1,000 mg 1,000 mg PO DAILY 04/19/18 capsule Acetaminophen [Tylenol Tablet] 650 mg PO Q6H PRN PRN tablet 05/17/18 0.9% Saline Lock 10 - 20 ml IV UD PRN syringe 06/01/18 Diazepam [Valium] 5 mg PO 4X/DAY PRN PRN #30 tab 06/01/18 Docusate Sodium [Colace] 100 mg PO BID 06/01/18 Heparin Pf Lock 10 units/ml 50 units IV UD PRN syringe 06/01/18 Iron Polysaccharide Complex 150 mg PO DAILYCM 06/01/18 [Ferrex 150] Nutritional Supplement [Teofilo - 1 packet PO BIDCM 06/01/18 ORANGE FLAVOR] Oxycodone [Oxyir] 10 mg PO Q4H PRN PRN 7 Days #50 tab 06/01/18 Vancomycin IV 1,500 mg IV Q12H 06/01/18 Vancomycin IV 750 mg IV Q12H 06/01/18 Vancomycin IV Pharmacy to Dose 1 ea IV PRN PRN each 06/01/18 proMETHazine tablet [Phenergan 25 mg PO Q4H PRN PRN tablet 06/01/18 tablet] Surgical History: Surgical History (Last Reviewed 05/16/18 @ 14:58 by Raúl Villareal DO) H/O dilation and curettage Z98.890 History of LAVH Z98.890, Z90.710 S/P endometrial ablation Z98.890 S/P hysterectomy Z90.710 uterine ablation History of partial colectomy Z90.49 Surgical History: hysterectomy, - - She is a Ab0. Surgical debridement of her sacral pressure ulceration was performed on April 12, 2017, at [facility]. 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 Paternal Family History: Family History (Last Reviewed 05/16/18 @ 14:58 by Raúl Villareal DO) Father Myocardial infarction Cancer Brother Heart disease Mother COPD (chronic obstructive pulmonary disease) History Items: Unknown, - - Patient's father at age of 79 with history of lung cancer and myocardial infarction. Review of Systems Constitutional: Denies: Chills, Fever, Weight Change HEENT: Denies: Head Aches, Sinus Congestion, Sinus Drainage Cardiovascular: Denies: Chest Pain, Palpitations Respiratory: Denies: Cough, Shortness of breath at rest, Sputum production Gastrointestinal: Denies: Abdominal Pain, Nausea, Vomiting Genitourinary: Denies: Dysuria Musculoskeletal: Denies: Joint Pain, Joint Tenderness Skin: Denies: Rash, Wounds Neurological: Denies: Numbness, Tingling, Focal weakness Psychiatric: Denies: Anxiety, Depression, Homicidal Ideations, Suicidal Ideations Hematologic/ Lymphatic: Denies: Easy Bruising, Easy Bleeding VTE Information - Inpt Only VTE Present on Admission: No VTE Mechan Device Prophylaxis: Knee High CHRISTOPHE Hose VTE Pharm Prophylaxis ordered?: Yes - Physical Exam General: Alert, Oriented x3, Cooperative HEENT: Atraumatic, PERRLA, EOMI, Normocephalic Neck: Supple, No JVD, Negative Carotid Bruits Lungs: Clear to auscultation, Normal air movement Cardiovascular: Regular rate, No murmurs Abdomen: Bowel Sounds Present, Soft, Non Tender Extremities: No edema, Capillary Refill Less than 3 Seconds Skin: No rashes, Ulcer/ Wound - Sacral wound vac. Musculoskeletal: No Tenderness to Palpation of Joints or Extremities Neurological: Cranial nerves II-XII grossly intact Psych/Mental Status: Normal Affect, Appropriate Vital Signs Temp Pulse Resp BP Pulse Ox 97.3 F L 100 16 161/90 H 93 06/01/18 15:37 06/01/18 15:37 06/01/18 15:37 06/01/18 15:37 06/01/18 15:37 Oxygen Delivery Method Room Air Weight: 92.125 kg Body Mass Index (BMI) 34.8 Laboratory Tests Past 24 Hrs 06/01/18 15:35 Vancomycin Trough 14.1 Assessment/Plan All Active Problems (Last Reviewed 05/16/18 @ 14:58 by Raúl Villareal DO) Acute osteomyelitis of sacrum (Acute) Acute blood loss anemia (Acute) Surgical wound present (Acute) Preop cardiovascular exam (Acute) Colovaginal fistula (Acute) Failure to thrive (Acute) Clostridium difficile colitis (Acute) Septic shock (Resolved) VITO (acute kidney injury) (Resolved) Encephalopathy (Resolved) Atrial fibrillation with RVR (Resolved) Clostridium difficile infection (Resolved) Rhabdomyolysis (Resolved) 67 year old female with below past medical history significant for stage 4 sacral pressure ulcer, hospitalized for sacral osteomyelitis, requiring chcf intravenous antibiotics, admitted to TCU with debility, here for rehabilitation, strengthening, wound care, intravenous antibiotics prior to discharge home. Debility - PT/OT. Pain - Tylenol 1000MG Q6H PRN mild pain, Oxycodone 10MG Q4H PRN severe pain. Bowel - Miralax 17GM daily, Senna/colace 2 tablets BID, Dulcolax 10MG PO daily PRN. Pneumonia vaccination - Administer Prevnar 13 and/or Pneumovax 23 as necessary. DVT prophylaxis - Lovenox 40MG SC daily. Vitamin C deficiency - Vitamin C 500MG daily. CV prophylaxis - Aspirin 81MG daily. Anxiety - Diazepam 5MG 4x/day PRN, resident doing well with chcf chronic use, GDR clinically contraindicated. Vitamin D deficiency - D2 50,000 units per month. Iron deficiency anemia - Ferrex 150MG daily. Hypothyroidism - Levothyroxine 25MCG daily. Stage 4 sacral pressure ulcer - Teofilo 1 packet BID, Wound VAC, Wound Team, Dr. Hansen. Hyperlipidemia - Lovaza 1GM daily. GERD - Pantoprazole 40MG daily. Hypokalemia - K-Dur 40MEQ daily. Nausea - Phenergan 25MG Q4H PRN> Sacral osteomyelitis - Vancomycin IV, pharmacy to dose, stop date per Dr. Preston.
--- NOTE | 2018-06-01 18:05 | HP.PCM_ITS ---
Problem List (1) Hypertension Status: Chronic (2) Acute osteomyelitis of sacrum Status: Acute (3) GERD (gastroesophageal reflux disease) Status: Chronic (4) Depression Status: Chronic (5) Hypothyroidism Status: Chronic (6) Pressure ulcer of sacral region, stage 4 Status: Chronic (7) Neuropathy Status: Chronic History of Present Illness Date of Admission: 06/01/18 Chief Complaint: Here for rehabilitation, strengthening, wound care, intravenous antibiotics prior to dischage home. The patient is a 67 year old Female with below past medical history with stage [address] negative for osteomyelitis. Positive for colovesical fistula, repaired at [facility] December 2017. Dr. Hansen performed debridement, partial ostectomy for osteomyelitis 05/14/2018. Cultures grew S. Epi, C. Minutissimum. Admit for IV Vancomycin for osteomyelitis. 05/31/2018 Dr. Preston noted Corynebacterium, MSSE, recent cultures grew MSSA. Recommend Vancomycin IV for 6 weeks, PICC line placed. 06/01/2018 Admit to TCU for debility, here for rehabilitation, strengthening, wound care, intravenous antibiotics. Dr. Preston, Dr. Hansen following. Past Medical History Past Medical History (Chronic Problems): Chronic Problems (Last Reviewed 05/16/18 @ 14:58 by Raúl Villareal DO) Hypertension (Chronic) Secondary pulmonary arterial hypertension (Chronic) Non-rheumatic tricuspid valve insufficiency (Chronic) Abnormal electrocardiogram (Chronic) Essential (primary) hypertension (Chronic) Non-healing surgical wound (Chronic) Pressure ulcer of right heel, stage 3 (Chronic) Pressure ulcer of left heel, stage 3 (Chronic) Morbid obesity with BMI of 40.0-44.9, adult (Chronic) GERD (gastroesophageal reflux disease) (Chronic) Depression (Chronic) Hypothyroidism (Chronic) Pressure ulcer of sacral region, stage 4 (Chronic) Neuropathy (Chronic) Medical History: Medical History (Last Reviewed 05/16/18 @ 14:58 by Raúl Villareal DO) Secondary pulmonary arterial hypertension (Chronic) I27.21 Non-rheumatic tricuspid valve insufficiency (Chronic) I36.1 Essential (primary) hypertension (Chronic) I10 Morbid obesity with BMI of 40.0-44.9, adult (Chronic) E66.01, Z68.41 GERD (gastroesophageal reflux disease) (Chronic) K21.9 Hypothyroidism (Chronic) E03.9 Atrial fibrillation with RVR (Resolved) I48.91 Abnormal Pap smear of cervix R87.619 Anemia D64.9 Back pain M54.9 GERD (gastroesophageal reflux disease) K21.9 Heart murmur R01.1 Sacral wound S31.000A Thyroid disorder E07.9 anixety and depression Hypertension I10 Allergies bee venom protein (honey bee) Allergy (Verified 04/19/18 13:56) Angioedema metaxalone [From Skelaxin] Allergy (Verified 04/19/18 13:56) Swelling Home Medications: Ambulatory Orders Medication Instructions Recorded Levothyroxine [Synthroid] 25 mcg PO DAILY 03/02/17 cholecalciferol (vitamin D3) 50,000 unit PO QMONTH 08/02/17 50,000 unit capsule Ascorbic Acid 500 mg PO DAILY 08/21/17 Potassium Chloride [K-Dur] 40 meq PO DAILY 12/26/17 Aspirin E.C. [Ecotrin] 81 mg PO DAILY 04/11/18 Omeprazole 40 mg PO 1400 04/11/18 green tea leaf extract capsule 1 cap PO DAILY cap 04/19/18 omega-3 fatty acids 1,000 mg 1,000 mg PO DAILY 04/19/18 capsule Acetaminophen [Tylenol Tablet] 650 mg PO Q6H PRN PRN tablet 05/17/18 0.9% Saline Lock 10 - 20 ml IV UD PRN syringe 06/01/18 Diazepam [Valium] 5 mg PO 4X/DAY PRN PRN #30 tab 06/01/18 Docusate Sodium [Colace] 100 mg PO BID 06/01/18 Heparin Pf Lock 10 units/ml 50 units IV UD PRN syringe 06/01/18 Iron Polysaccharide Complex 150 mg PO DAILYCM 06/01/18 [Ferrex 150] Nutritional Supplement [Teofilo - 1 packet PO BIDCM 06/01/18 ORANGE FLAVOR] Oxycodone [Oxyir] 10 mg PO Q4H PRN PRN 7 Days #50 tab 06/01/18 Vancomycin IV 1,500 mg IV Q12H 06/01/18 Vancomycin IV 750 mg IV Q12H 06/01/18 Vancomycin IV Pharmacy to Dose 1 ea IV PRN PRN each 06/01/18 proMETHazine tablet [Phenergan 25 mg PO Q4H PRN PRN tablet 06/01/18 tablet] Surgical History: Surgical History (Last Reviewed 05/16/18 @ 14:58 by Raúl Villareal DO) H/O dilation and curettage Z98.890 History of LAVH Z98.890, Z90.710 S/P endometrial ablation Z98.890 S/P hysterectomy Z90.710 uterine ablation History of partial colectomy Z90.49 Surgical History: hysterectomy, - - She is a Ab0. Surgical debridement of her sacral pressure ulceration was performed on April 12, 2017, at [facility]. 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 Paternal Family History: Family History (Last Reviewed 05/16/18 @ 14:58 by Raúl Villareal DO) Father Myocardial infarction Cancer Brother Heart disease Mother COPD (chronic obstructive pulmonary disease) History Items: Unknown, - - Patient's father at age of 79 with history of lung cancer and myocardial infarction. Review of Systems Constitutional: Denies: Chills, Fever, Weight Change HEENT: Denies: Head Aches, Sinus Congestion, Sinus Drainage Cardiovascular: Denies: Chest Pain, Palpitations Respiratory: Denies: Cough, Shortness of breath at rest, Sputum production Gastrointestinal: Denies: Abdominal Pain, Nausea, Vomiting Genitourinary: Denies: Dysuria Musculoskeletal: Denies: Joint Pain, Joint Tenderness Skin: Denies: Rash, Wounds Neurological: Denies: Numbness, Tingling, Focal weakness Psychiatric: Denies: Anxiety, Depression, Homicidal Ideations, Suicidal Ideations Hematologic/ Lymphatic: Denies: Easy Bruising, Easy Bleeding VTE Information - Inpt Only VTE Present on Admission: No VTE Mechan Device Prophylaxis: Knee High CHRISTOPHE Hose VTE Pharm Prophylaxis ordered?: Yes - Physical Exam General: Alert, Oriented x3, Cooperative HEENT: Atraumatic, PERRLA, EOMI, Normocephalic Neck: Supple, No JVD, Negative Carotid Bruits Lungs: Clear to auscultation, Normal air movement Cardiovascular: Regular rate, No murmurs Abdomen: Bowel Sounds Present, Soft, Non Tender Extremities: No edema, Capillary Refill Less than 3 Seconds Skin: No rashes, Ulcer/ Wound - Sacral wound vac. Musculoskeletal: No Tenderness to Palpation of Joints or Extremities Neurological: Cranial nerves II-XII grossly intact Psych/Mental Status: Normal Affect, Appropriate Vital Signs Temp Pulse Resp BP Pulse Ox 97.3 F L 100 16 161/90 H 93 06/01/18 15:37 06/01/18 15:37 06/01/18 15:37 06/01/18 15:37 06/01/18 15:37 Oxygen Delivery Method Room Air Weight: 92.125 kg Body Mass Index (BMI) 34.8 Laboratory Tests Past 24 Hrs 06/01/18 15:35 Vancomycin Trough 14.1 Assessment/Plan All Active Problems (Last Reviewed 05/16/18 @ 14:58 by Raúl Villareal DO) Acute osteomyelitis of sacrum (Acute) Acute blood loss anemia (Acute) Surgical wound present (Acute) Preop cardiovascular exam (Acute) Colovaginal fistula (Acute) Failure to thrive (Acute) Clostridium difficile colitis (Acute) Septic shock (Resolved) VITO (acute kidney injury) (Resolved) Encephalopathy (Resolved) Atrial fibrillation with RVR (Resolved) Clostridium difficile infection (Resolved) Rhabdomyolysis (Resolved) 67 year old female with below past medical history significant for stage 4 sacral pressure ulcer, hospitalized for sacral osteomyelitis, requiring skilled nursing intravenous antibiotics, admitted to TCU with debility, here for rehabilitation, strengthening, wound care, intravenous antibiotics prior to discharge home. * Debility - PT/OT. * Pain - Tylenol 1000MG Q6H PRN mild pain, Oxycodone 10MG Q4H PRN severe pain. * Bowel - Miralax 17GM daily, Senna/colace 2 tablets BID, Dulcolax 10MG PO daily PRN. * Pneumonia vaccination - Administer Prevnar 13 and/or Pneumovax 23 as necessary. * DVT prophylaxis - Lovenox 40MG SC daily. * Vitamin C deficiency - Vitamin C 500MG daily. * CV prophylaxis - Aspirin 81MG daily. * Anxiety - Diazepam 5MG 4x/day PRN, resident doing well with skilled nursing chronic use, GDR clinically contraindicated. * Vitamin D deficiency - D2 50,000 units per month. * Iron deficiency anemia - Ferrex 150MG daily. * Hypothyroidism - Levothyroxine 25MCG daily. * Stage 4 sacral pressure ulcer - Teofilo 1 packet BID, Wound VAC, Wound Team, Dr. Hansen. * Hyperlipidemia - Lovaza 1GM daily. * GERD - Pantoprazole 40MG daily. * Hypokalemia - K-Dur 40MEQ daily. * Nausea - Phenergan 25MG Q4H PRN> * Sacral osteomyelitis - Vancomycin IV, pharmacy to dose, stop date per Dr. Preston.
--- NOTE | 2018-06-01 19:01 | PCM.RX.CS ---
Consult Pharmacy has been consulted to manage selected antiobiotic: Vancomycin Type of Consult: Follow-up Suspected Infection: Osteomyelitis Prior Doses of Antibiotics Received/Current Regimen: Patient has been on 1500mg iv q12h. Labs: Vancomycin Trough 14.1 ug/mL (5.0-15.0) 06/01/18 15:35 Weight used for dosin.1 kg Estimated Creatinine Clearance: ~48ml/min Goal Trough: 15-20 mcg/mL Pharmacy Plan for Drug Dosing: Patient's vancomycin trough today 06.01.18 was 14.1. Renal status reviewed with Cr 0.66 and CrCl ~48 ml/min. Will continue 1500mg iv q12h and get repeat trough level on 06.04.18. Pharmacy Service will continue to monitor and adjust dosing as required. Follow-Up Labs: Trough Vancomycin - 06/04/18 @1730 before 1800 dose
[2018-06-01] MEDS: Acetaminophen 500 MG Tablet 1000 MG PO (23:48)
[2018-06-02] MEDS: Enoxaparin 40 MG/0.4 ML Syringe SC (04:32)
[2018-06-02] MEDS: Levothyroxine 25 MCG TABLET PO (04:33)
[2018-06-02] MEDS: Ascorbic Acid 500 MG Tablet PO (04:33)
[2018-06-02] MEDS: Omega-3 Acid Ethyl Esters 1 GM Capsule PO (04:33)
[2018-06-02] MEDS: Senna/Docusate Sodium 1 Tablet 2 TABLET PO (04:33)
[2018-06-02] MEDS: 0.9% NaCl PICC Flush IV ×2 (04:35→17:45)
[2018-06-02 05:16] LABS: Absolute Lymphocyte Count 2.22 X10^3/ul (0.83-4.51); Absolute Neutrophil Count 6.2 X10^3/uL (2.0-7.7); Basophil# 0.07 X10^3/uL; Basophil% 0.7 % (0-1); Hematocrit 33.3 % (37-47); Hemoglobin 10.3 g/dl (12.0-15.0); Lymphocyte # 2.22 X10^3/ul (4.0); Lymphocyte % 22.2 % (19-41); Mean Corp Hgb Conc 30.9 g/gl (32-36); Mean Corpuscular Hgb 25.4 pg (27.0-32.0); Mean Platelet Vol. 9.1 fl (6.2-12.0); Monocyte# 1.12 X10^3/uL; Monocyte% 11.2 % (0-10); Neutrophil # 6.19 X10^3/uL (2.7-7.7); Neutrophil % 61.7 % (47-70); Platelet Count 517 K/mm3 (150-450); RBC Distribution Width CV 22.4 % (11.6-14.6); RBC Distribution Width SD 64.7 fl (35.1-43.9); Red Blood Count 4.06 M/mm3 (4.2-5.4)
[2018-06-02 05:19] LABS: POSITIVE COUNT NO; POSITIVE DIFFERENTIAL NO
[2018-06-02 05:20] LABS: Differential Indicated SCAN CRITERIA MET; POSITIVE MORPHOLOGY YES
[2018-06-02 05:24] LABS: Erythrocyte Sedimentation Rate 55 mm/hr (0-30)
[2018-06-02 05:36] LABS: Differential Comment SCANNED
[2018-06-02 05:37] LABS: ALB/GLOB Ratio 0.7 RATIO (0.9-2.4); AST(SGOT) 14 U/L (15-37); Alanine Aminotransfer ALT/SGPT 17 U/L (13-56); Albumin, Serum 2.8 g/dL (3.2-5.0); Alkaline Phosphatase 75 U/L (45-117); Anion Gap 9 (5-15); BUN 22 mg/dL (7-18); BUN/Creat Ratio 37.4 RATIO (10-20); Calcium,Total 8.9 mg/dL (8.5-10.1); Chloride 110 mmol/L (98-107); Creatinine, Serum 0.59 mg/dL (0.55-1.02); EST Glomerular Filtration Rate 109 mL/min (>60); Est Glom Filt Rate - Afr Amer 131 mL/min (>60); Estimated Creatinine Clearance 47.79 ml/min; Glucose 88 mg/dL (74-106); Potassium 3.9 mmol/L (3.5-5.1); Protein, Total 6.8 g/dL (6.4-8.2); Sodium Level 145 mmol/L (136-145)
[2018-06-02] MEDS: Acetaminophen 500 MG Tablet 1000 MG PO ×3 (07:50→23:59)
[2018-06-02] MEDS: Aspirin E.C. 81 MG Tablet PO (07:51)
[2018-06-02] MEDS: Iron Polysaccharide Complex 150 MG CAPSULE PO (09:00)
[2018-06-02] MEDS: Pantoprazole Sodium 40 MG Tablet PO (13:53)
[2018-06-02 16:00] VITALS: BP 119/75; PULSE 91; RESP 18; TEMP 36; O2SAT 96
[2018-06-02] MEDS: Tuberculin,Purif.prot.deriv. 50 TU/ML Vial 5 ML ID (17:29)
[2018-06-02] MEDS: 0.9% Saline Lock 10 ML Syringe IV (20:32)
[2018-06-02 20:38] VITALS: PULSE 67; RESP 15; O2SAT 98
[2018-06-03] MEDS: Enoxaparin 40 MG/0.4 ML Syringe SC (05:46)
[2018-06-03] MEDS: Ascorbic Acid 500 MG Tablet PO (05:46)
[2018-06-03] MEDS: Omega-3 Acid Ethyl Esters 1 GM Capsule PO (05:46)
[2018-06-03] MEDS: Senna/Docusate Sodium 1 Tablet 2 TABLET PO ×2 (05:46→17:58)
[2018-06-03] MEDS: Levothyroxine 25 MCG TABLET PO (05:46)
[2018-06-03] MEDS: 0.9% NaCl PICC Flush IV ×2 (05:48→18:00)
[2018-06-03] MEDS: Aspirin E.C. 81 MG Tablet PO (08:14)
[2018-06-03] MEDS: Iron Polysaccharide Complex 150 MG CAPSULE PO (08:14)
[2018-06-03] MEDS: Acetaminophen 500 MG Tablet 1000 MG PO ×2 (08:14→17:58)
[2018-06-03 10:00] VITALS: PULSE 94; O2SAT 96
--- NOTE | 2018-06-03 13:13 | PCM.PN.RX ---
<Ronn Braun - Last Filed: 06/03/18 13:13> Progress Note - Pharmacy Subjective: [] TCU Admission Objective: Allergies bee venom protein (honey bee) Allergy (Verified 04/19/18 13:56) Angioedema metaxalone [From Skelaxin] Allergy (Verified 04/19/18 13:56) Swelling Current Medications Generic Name Dose Route Start Last Admin Trade Name Freq PRN Reason Stop Dose Admin Acetaminophen 1,000 mg 06/01/18 18:19 06/03/18 08:14 Tylenol PO 1,000 mg Q6H PRN Administration MILD PAIN (1-10) Ascorbic Acid 500 mg 06/02/18 06:00 06/03/18 05:46 Vitamin C PO 500 mg DAILY [facility] Administration Aspirin 81 mg 06/02/18 08:00 06/03/18 08:14 Ecotrin PO 81 mg DAILYCM [facility] Administration Bisacodyl 10 mg 06/01/18 18:19 Dulcolax PO DAILY PRN Constipation Diazepam 5 mg 06/01/18 15:45 Valium PO 4X/DAY PRN PRN SPASMS Enoxaparin Sodium 40 mg 06/02/18 06:00 06/03/18 05:46 Lovenox SC 40 mg DAILY@0600 [facility] Administration Ergocalciferol 50,000 unit 06/29/18 08:00 Vitamin D PO QMONTH [facility] Heparin Sodium (Beef Lung) 50 units 06/01/18 16:40 IV UD PRN HEPARIN FLUSH Sodium Chloride 250 mls @ 15 mls/hr 06/01/18 16:40 06/01/18 17:28 IV 15 mls/hr .[id number] PRN Administration SALINE FLUSH Vancomycin HCl 1,500 mg/ 530 mls @ 250 mls/hr 06/01/18 18:00 06/03/18 05:47 Sodium Chloride IV 250 mls/hr Q12H [facility] Administration Levothyroxine Sodium 25 mcg 06/02/18 06:00 06/03/18 05:46 Synthroid PO 25 mcg DAILY@0600 [facility] Administration Nutritional Formula 1 packet 06/01/18 17:00 06/03/18 08:14 Teofilo - Universal Flavor PO 1 packet BIDCM [facility] Administration Iekdz-9-Xarg Ethyl Esters 1 gm 06/02/18 06:00 06/03/18 05:46 Lovaza PO 1 gm DAILY [facility] Administration Oxycodone HCl 10 mg 06/01/18 15:45 Oxyir PO Q4H PRN PRN SEVERE PAIN (6-10/10) Pantoprazole Sodium 40 mg 06/02/18 14:00 06/02/18 13:53 Protonix PO 40 mg DAILY@1400 [facility] Administration Polyethylene Glycol 17 gm 06/02/18 06:00 06/03/18 05:53 Miralax PO Not Given DAILY [facility] Polysaccharide Iron Complex 150 mg 06/02/18 08:00 06/03/18 08:14 Ferrex 150 PO 150 mg DAILYCM [facility] Administration Potassium Chloride 40 meq 06/02/18 06:00 06/03/18 05:46 K-Dur PO 40 meq DAILY [facility] Administration Promethazine HCl 25 mg 06/01/18 15:45 Phenergan Tablet PO Q4H PRN PRN NAUSEA/VOMITING Senna/Docusate Sodium 2 tablet 06/02/18 06:00 06/03/18 05:46 Senokot-S, Amanda-Colace PO 2 tablet BID [facility] Administration Sodium Chloride 10 - 20 ml 06/01/18 15:45 06/02/18 20:32 IV 20 ml UD PRN Administration PICC FLUSH Sodium Chloride 10 - 20 ml 06/01/18 16:40 06/03/18 05:48 IV 20 ml UD PRN Administration PICC FLUSH Tuberculin PPD 5 tu 06/09/18 10:00 Tubersol, Aplisol, Ppd ID 06/09/18 10:01 X1 ONE Problem List (Last Reviewed 05/16/18 @ 14:58 by Raúl Villareal DO) Hypertension (Chronic) Vital Signs Temp Pulse Resp BP Pulse Ox 96.8 F L 94 15 119/75 96 06/02/18 16:00 06/03/18 10:00 06/02/18 20:38 06/02/18 16:00 06/03/18 10:00 Oxygen Delivery Method Room Air Weight: 92.125 kg Body Mass Index (BMI) 34.8 Sodium 145 mmol/L (136-145) 06/02/18 04:52 Potassium 3.9 mmol/L (3.5-5.1) 06/02/18 04:52 Chloride 110 mmol/L (98-107) H 06/02/18 04:52 Carbon Dioxide 26.0 mmol/L (21.0-32.0) 06/02/18 04:52 Anion Gap 9 (5-15) 06/02/18 04:52 BUN 22 mg/dL (7-18) H 06/02/18 04:52 Creatinine 0.59 mg/dL (0.55-1.02) 06/02/18 04:52 Est GFR (MDRD) Af Amer 131 mL/min (>60) 06/02/18 04:52 Est GFR (MDRD) Non-Af 109 mL/min (>60) 06/02/18 04:52 BUN/Creatinine Ratio 37.4 RATIO (10-20) H 06/02/18 04:52 Glucose 88 mg/dL (74-106) 06/02/18 04:52 Vancomycin Trough 14.1 ug/mL (5.0-15.0) 06/01/18 15:35 Assessment/Plan: 1) Pain: Acetaminophen 1000mg po q6h prn for mild pain, Oxycodone 10mg po q4h prn for severe pain. Please continue to monitor prn usage and for signs/symptoms of increased/decreased pain. 2) GERD: Protonix 40mg po daily. Please continue to monitor for signs/symptoms of GERD 3) Nausea: Phenergan 25mg po q4h prn for nausea/vomitting. Please continue to monitor prn usage and for signs/symptoms of increased/decreased nausea/vomitting. 4) Vitamin Deficiency: Vitamin D2 50,000 units po once a month, Vitamin C 500mg po daily, Ferrex 150mg po daily. Pt's Vitamin D2 level was 23.0 04/2018. Please continue to monitor 5) DVT Prophylaxis: Lovenox 40mg po qam. Pt's SrCr is 0.59, CrCl is 48, Plts are 517k. Please continue to monitor. 6) Hypothyroidism: Levothyroxine 25mcg po qam. Pt's TSH was 1.73 04/2018. Please continue to monitor. 7) Hypokalemia: Potassium 40meq po daily. Pt's K+ is 3.9. Please continue to monitor. 8) Hyperlipidemia: Lovaza 1gm po daily. Pt's cholesterol and triglyceride levels were done 07/2017. Please continue to monitor. 9) Osteomyelitis: Vancomycin. Current dose is 1500mg IV q12h. Trough level was 14.1. Pharmacy will monitor trough levels and dosing. *10) Pt has a diagnosis of chronic depression. There is currently nothing on their medication profile for depression. Please re-evaluate diagnosis of chronic depression. Thanks Psychotropic Medications: Diazepam 5mg po qid prn for spams. Medication is contraindicated for a GDR Unnecessary Medications: *Bowel Regimen: Bisacodyl 10mg po daily prn constipation, Miralax 17gm po daily, Senna/Docusate 2 tablets po bid. Please continue to monitor prn usage and for signs/symptoms of constipation/diarrhea. Pt has been refusing Miralax. If pt continues to refuse, please consider changing to prn use. Thanks Date of Note:: 06/03/18 - Provider Comments Provider responsibility: Provider responsible to enter orders to implement recommendations <Chema Sanchez Chi - Last Filed: 06/03/18 15:35> Progress Note - Pharmacy Subjective: [] Objective: Allergies bee venom protein (honey bee) Allergy (Verified 04/19/18 13:56) Angioedema metaxalone [From Skelaxin] Allergy (Verified 04/19/18 13:56) Swelling Current Medications Generic Name Dose Route Start Last Admin Trade Name Freq PRN Reason Stop Dose Admin Acetaminophen 1,000 mg 06/01/18 18:19 06/03/18 08:14 Tylenol PO 1,000 mg Q6H PRN Administration MILD PAIN (1-3/10) Ascorbic Acid 500 mg 06/02/18 06:00 06/03/18 05:46 Vitamin C PO 500 mg DAILY [facility] Administration Aspirin 81 mg 06/02/18 08:00 06/03/18 08:14 Ecotrin PO 81 mg DAILYCM [facility] Administration Bisacodyl 10 mg 06/01/18 18:19 Dulcolax PO DAILY PRN Constipation Diazepam 5 mg 06/01/18 15:45 Valium PO 4X/DAY PRN PRN SPASMS Enoxaparin Sodium 40 mg 06/02/18 06:00 06/03/18 05:46 Lovenox SC 40 mg DAILY@0600 [facility] Administration Ergocalciferol 50,000 unit 06/29/18 08:00 Vitamin D PO QMONTH [facility] Heparin Sodium (Beef Lung) 50 units 06/01/18 16:40 IV UD PRN HEPARIN FLUSH Sodium Chloride 250 mls @ 15 mls/hr 06/01/18 16:40 06/01/18 17:28 IV 15 mls/hr .[id number] PRN Administration SALINE FLUSH Vancomycin HCl 1,500 mg/ 530 mls @ 250 mls/hr 06/01/18 18:00 06/03/18 05:47 Sodium Chloride IV 250 mls/hr Q12H [facility] Administration Levothyroxine Sodium 25 mcg 06/02/18 06:00 06/03/18 05:46 Synthroid PO 25 mcg DAILY@0600 [facility] Administration Nutritional Formula 1 packet 06/01/18 17:00 06/03/18 08:14 Teofilo - Universal Flavor PO 1 packet BIDCM [facility] Administration Ngqyf-7-Glnj Ethyl Esters 1 gm 06/02/18 06:00 06/03/18 05:46 Lovaza PO 1 gm DAILY [facility] Administration Oxycodone HCl 10 mg 06/01/18 15:45 Oxyir PO Q4H PRN PRN SEVERE PAIN (6-10/10) Pantoprazole Sodium 40 mg 06/02/18 14:00 06/03/18 13:16 Protonix PO 40 mg DAILY@1400 [facility] Administration Polyethylene Glycol 17 gm 06/02/18 06:00 06/03/18 05:53 Miralax PO Not Given DAILY [facility] Polysaccharide Iron Complex 150 mg 06/02/18 08:00 06/03/18 08:14 Ferrex 150 PO 150 mg DAILYCM [facility] Administration Potassium Chloride 40 meq 06/02/18 06:00 06/03/18 05:46 K-Dur PO 40 meq DAILY [facility] Administration Promethazine HCl 25 mg 06/01/18 15:45 Phenergan Tablet PO Q4H PRN PRN NAUSEA/VOMITING Senna/Docusate Sodium 2 tablet 06/02/18 06:00 06/03/18 05:46 Senokot-S, Amanda-Colace PO 2 tablet BID [facility] Administration Sodium Chloride 10 - 20 ml 06/01/18 15:45 06/02/18 20:32 IV 20 ml UD PRN Administration PICC FLUSH Sodium Chloride 10 - 20 ml 06/01/18 16:40 06/03/18 05:48 IV 20 ml UD PRN Administration PICC FLUSH Tuberculin PPD 5 tu 06/09/18 10:00 Tubersol, Aplisol, Ppd ID 06/09/18 10:01 X1 ONE Problem List (Last Reviewed 05/16/18 @ 14:58 by Raúl Villareal DO) Hypertension (Chronic) Vital Signs Temp Pulse Resp BP Pulse Ox 97.0 F L 83 16 118/62 95 06/03/18 15:34 06/03/18 15:34 06/03/18 15:34 06/03/18 15:34 06/03/18 15:34 Oxygen Delivery Method Room Air Weight: 92.125 kg Body Mass Index (BMI) 34.8 Sodium 145 mmol/L (136-145) 06/02/18 04:52 Potassium 3.9 mmol/L (3.5-5.1) 06/02/18 04:52 Chloride 110 mmol/L (98-107) H 06/02/18 04:52 Carbon Dioxide 26.0 mmol/L (21.0-32.0) 06/02/18 04:52 Anion Gap 9 (5-15) 06/02/18 04:52 BUN 22 mg/dL (7-18) H 06/02/18 04:52 Creatinine 0.59 mg/dL (0.55-1.02) 06/02/18 04:52 Est GFR (MDRD) Af Amer 131 mL/min (>60) 06/02/18 04:52 Est GFR (MDRD) Non-Af 109 mL/min (>60) 06/02/18 04:52 BUN/Creatinine Ratio 37.4 RATIO (10-20) H 06/02/18 04:52 Glucose 88 mg/dL (74-106) 06/02/18 04:52 Vancomycin Trough 14.1 ug/mL (5.0-15.0) 06/01/18 15:35 Assessment/Plan: Psychotropic Medications: Unnecessary Medications: Bowel Regimen: - Provider Comments Provider responsibility: Provider responsible to enter orders to implement recommendations Provider Comments to Recommendations by Pharmacy: Agree
[2018-06-03] MEDS: Pantoprazole Sodium 40 MG Tablet PO (13:16)
--- NOTE | 2018-06-03 13:34 | PHA.CONS_ITS ---
<Ronn Braun - Last Filed: 06/03/18 13:13> Progress Note - Pharmacy Subjective: [] TCU Admission Objective: Allergies bee venom protein (honey bee) Allergy (Verified 04/19/18 13:56) Angioedema metaxalone [From Skelaxin] Allergy (Verified 04/19/18 13:56) Swelling Current Medications Generic Name Dose Route Start Last Admin Trade Name Freq PRN Reason Stop Dose Admin Acetaminophen 1,000 mg 06/01/18 18:19 06/03/18 08:14 Tylenol PO 1,000 mg Q6H PRN Administration MILD PAIN (1-10) Ascorbic Acid 500 mg 06/02/18 06:00 06/03/18 05:46 Vitamin C PO 500 mg DAILY [facility] Administration Aspirin 81 mg 06/02/18 08:00 06/03/18 08:14 Ecotrin PO 81 mg DAILYCM [facility] Administration Bisacodyl 10 mg 06/01/18 18:19 Dulcolax PO DAILY PRN Constipation Diazepam 5 mg 06/01/18 15:45 Valium PO 4X/DAY PRN PRN SPASMS Enoxaparin Sodium 40 mg 06/02/18 06:00 06/03/18 05:46 Lovenox SC 40 mg DAILY@0600 [facility] Administration Ergocalciferol 50,000 unit 06/29/18 08:00 Vitamin D PO QMONTH [facility] Heparin Sodium (Beef Lung) 50 units 06/01/18 16:40 IV UD PRN HEPARIN FLUSH Sodium Chloride 250 mls @ 15 mls/hr 06/01/18 16:40 06/01/18 17:28 IV 15 mls/hr .[id number] PRN Administration SALINE FLUSH Vancomycin HCl 1,500 mg/ 530 mls @ 250 mls/hr 06/01/18 18:00 06/03/18 05:47 Sodium Chloride IV 250 mls/hr Q12H [facility] Administration Levothyroxine Sodium 25 mcg 06/02/18 06:00 06/03/18 05:46 Synthroid PO 25 mcg DAILY@0600 [facility] Administration Nutritional Formula 1 packet 06/01/18 17:00 06/03/18 08:14 Teofilo - [place]elfair Flavor PO 1 packet BIDCM [facility] Administration Ejdzz-8-Grnf Ethyl Esters 1 gm 06/02/18 06:00 06/03/18 05:46 Lovaza PO 1 gm DAILY [facility] Administration Oxycodone HCl 10 mg 06/01/18 15:45 Oxyir PO Q4H PRN PRN SEVERE PAIN (6-10/10) Pantoprazole Sodium 40 mg 06/02/18 14:00 06/02/18 13:53 Protonix PO 40 mg DAILY@1400 [facility] Administration Polyethylene Glycol 17 gm 06/02/18 06:00 06/03/18 05:53 Miralax PO Not Given DAILY [facility] Polysaccharide Iron Complex 150 mg 06/02/18 08:00 06/03/18 08:14 Ferrex 150 PO 150 mg DAILYCM [facility] Administration Potassium Chloride 40 meq 06/02/18 06:00 06/03/18 05:46 K-Dur PO 40 meq DAILY [facility] Administration Promethazine HCl 25 mg 06/01/18 15:45 Phenergan Tablet PO Q4H PRN PRN NAUSEA/VOMITING Senna/Docusate Sodium 2 tablet 06/02/18 06:00 06/03/18 05:46 Senokot-S, Amanda-Colace PO 2 tablet BID [facility] Administration Sodium Chloride 10 - 20 ml 06/01/18 15:45 06/02/18 20:32 IV 20 ml UD PRN Administration PICC FLUSH Sodium Chloride 10 - 20 ml 06/01/18 16:40 06/03/18 05:48 IV 20 ml UD PRN Administration PICC FLUSH Tuberculin PPD 5 tu 06/09/18 10:00 Tubersol, Aplisol, Ppd ID 06/09/18 10:01 X1 ONE Problem List (Last Reviewed 05/16/18 @ 14:58 by Raúl Villareal DO) Hypertension (Chronic) Vital Signs Temp Pulse Resp BP Pulse Ox 96.8 F L 94 15 119/75 96 06/02/18 16:00 06/03/18 10:00 06/02/18 20:38 06/02/18 16:00 06/03/18 10:00 Oxygen Delivery Method Room Air Weight: 92.125 kg Body Mass Index (BMI) 34.8 Sodium 145 mmol/L (136-145) 06/02/18 04:52 Potassium 3.9 mmol/L (3.5-5.1) 06/02/18 04:52 Chloride 110 mmol/L (98-107) H 06/02/18 04:52 Carbon Dioxide 26.0 mmol/L (21.0-32.0) 06/02/18 04:52 Anion Gap 9 (5-15) 06/02/18 04:52 BUN 22 mg/dL (7-18) H 06/02/18 04:52 Creatinine 0.59 mg/dL (0.55-1.02) 06/02/18 04:52 Est GFR (MDRD) Af Amer 131 mL/min (>60) 06/02/18 04:52 Est GFR (MDRD) Non-Af 109 mL/min (>60) 06/02/18 04:52 BUN/Creatinine Ratio 37.4 RATIO (10-20) H 06/02/18 04:52 Glucose 88 mg/dL (74-106) 06/02/18 04:52 Vancomycin Trough 14.1 ug/mL (5.0-15.0) 06/01/18 15:35 Assessment/Plan: 1) Pain: Acetaminophen 1000mg po q6h prn for mild pain, Oxycodone 10mg po q4h prn for severe pain. Please continue to monitor prn usage and for signs/s ymptoms of increased/decreased pain. 2) GERD: Protonix 40mg po daily. Please continue to monitor for signs/symptoms of GERD 3) Nausea: Phenergan 25mg po q4h prn for nausea/vomitting. Please continue to monitor prn usage and for signs/symptoms of increased/decreased nausea/vomitting. 4) Vitamin Deficiency: Vitamin D2 50,000 units po once a month, Vitamin C 500mg po daily, Ferrex 150mg po daily. Pt's Vitamin D2 level was 23.0 04/2018. Please continue to monitor 5) DVT Prophylaxis: Lovenox 40mg po qam. Pt's SrCr is 0.59, CrCl is 48, Plts are 517k. Please continue to monitor. 6) Hypothyroidism: Levothyroxine 25mcg po qam. Pt's TSH was 1.73 04/2018. Please continue to monitor. 7) Hypokalemia: Potassium 40meq po daily. Pt's K+ is 3.9. Please continue to monitor. 8) Hyperlipidemia: Lovaza 1gm po daily. Pt's cholesterol and triglyceride levels were done 07/2017. Please continue to monitor. 9) Osteomyelitis: Vancomycin. Current dose is 1500mg IV q12h. Trough level was 14.1. Pharmacy will monitor trough levels and dosing. *10) Pt has a diagnosis of chronic depression. There is currently nothing on their medication profile for depression. Please re-evaluate diagnosis of chronic depression. Thanks Psychotropic Medications: Diazepam 5mg po qid prn for spams. Medication is contraindicated for a GDR Unnecessary Medications: *Bowel Regimen: Bisacodyl 10mg po daily prn constipation, Miralax 17gm po daily, Senna/Docusate 2 tablets po bid. Please continue to monitor prn usage an d for signs/symptoms of constipation/diarrhea. Pt has been refusing Miralax. If pt continues to refuse, please consider changing to prn use. Thanks Date of Note:: 06/03/18 - Provider Comments Provider responsibility: Provider responsible to enter orders to implement recommendations <Chema Sanchez Chi - Last Filed: 06/03/18 15:35> Progress Note - Pharmacy Subjective: [] Objective: Allergies bee venom protein (honey bee) Allergy (Verified 04/19/18 13:56) Angioedema metaxalone [From Skelaxin] Allergy (Verified 04/19/18 13:56) Swelling Current Medications Generic Name Dose Route Start Last Admin Trade Name Freq PRN Reason Stop Dose Admin Acetaminophen 1,000 mg 06/01/18 18:19 06/03/18 08:14 Tylenol PO 1,000 mg Q6H PRN Administration MILD PAIN (1-3/10) Ascorbic Acid 500 mg 06/02/18 06:00 06/03/18 05:46 Vitamin C PO 500 mg DAILY [facility] Administration Aspirin 81 mg 06/02/18 08:00 06/03/18 08:14 Ecotrin PO 81 mg DAILYCM [facility] Administration Bisacodyl 10 mg 06/01/18 18:19 Dulcolax PO DAILY PRN Constipation Diazepam 5 mg 06/01/18 15:45 Valium PO 4X/DAY PRN PRN SPASMS Enoxaparin Sodium 40 mg 06/02/18 06:00 06/03/18 05:46 Lovenox SC 40 mg DAILY@0600 [facility] Administration Ergocalciferol 50,000 unit 06/29/18 08:00 Vitamin D PO QMONTH [facility] Heparin Sodium (Beef Lung) 50 units 06/01/18 16:40 IV UD PRN HEPARIN FLUSH Sodium Chloride 250 mls @ 15 mls/hr 06/01/18 16:40 06/01/18 17:28 IV 15 mls/hr .[id number] PRN Administration SALINE FLUSH Vancomycin HCl 1,500 mg/ 530 mls @ 250 mls/hr 06/01/18 18:00 06/03/18 05:47 Sodium Chloride IV 250 mls/hr Q12H [facility] Administration Levothyroxine Sodium 25 mcg 06/02/18 06:00 06/03/18 05:46 Synthroid PO 25 mcg DAILY@0600 [facility] Administration Nutritional Formula 1 packet 06/01/18 17:00 06/03/18 08:14 Teofilo - [place]air Flavor PO 1 packet BIDCM [facility] Administration Ztzol-6-Fsdd Ethyl Esters 1 gm 06/02/18 06:00 06/03/18 05:46 Lovaza PO 1 gm DAILY [facility] Administration Oxycodone HCl 10 mg 06/01/18 15:45 Oxyir PO Q4H PRN PRN SEVERE PAIN (6-10/10) Pantoprazole Sodium 40 mg 06/02/18 14:00 06/03/18 13:16 Protonix PO 40 mg DAILY@1400 [facility] Administration Polyethylene Glycol 17 gm 06/02/18 06:00 06/03/18 05:53 Miralax PO Not Given DAILY [facility] Polysaccharide Iron Complex 150 mg 06/02/18 08:00 06/03/18 08:14 Ferrex 150 PO 150 mg DAILYCM [facility] Administration Potassium Chloride 40 meq 06/02/18 06:00 06/03/18 05:46 K-Dur PO 40 meq DAILY [facility] Administration Promethazine HCl 25 mg 06/01/18 15:45 Phenergan Tablet PO Q4H PRN PRN NAUSEA/VOMITING Senna/Docusate Sodium 2 tablet 06/02/18 06:00 06/03/18 05:46 Senokot-S, Amanda-Colace PO 2 tablet BID [facility] Administration Sodium Chloride 10 - 20 ml 06/01/18 15:45 06/02/18 20:32 IV 20 ml UD PRN Administration PICC FLUSH Sodium Chloride 10 - 20 ml 06/01/18 16:40 06/03/18 05:48 IV 20 ml UD PRN Administration PICC FLUSH Tuberculin PPD 5 tu 06/09/18 10:00 Tubersol, Aplisol, Ppd ID 06/09/18 10:01 X1 ONE Problem List (Last Reviewed 05/16/18 @ 14:58 by Raúl Villareal DO) Hypertension (Chronic) Vital Signs Temp Pulse Resp BP Pulse Ox 97.0 F L 83 16 118/62 95 06/03/18 15:34 06/03/18 15:34 06/03/18 15:34 06/03/18 15:34 06/03/18 15:34 Oxygen Delivery Method Room Air Weight: 92.125 kg Body Mass Index (BMI) 34.8 Sodium 145 mmol/L (136-145) 06/02/18 04:52 Potassium 3.9 mmol/L (3.5-5.1) 06/02/18 04:52 Chloride 110 mmol/L (98-107) H 06/02/18 04:52 Carbon Dioxide 26.0 mmol/L (21.0-32.0) 06/02/18 04:52 Anion Gap 9 (5-15) 06/02/18 04:52 BUN 22 mg/dL (7-18) H 06/02/18 04:52 Creatinine 0.59 mg/dL (0.55-1.02) 06/02/18 04:52 Est GFR (MDRD) Af Amer 131 mL/min (>60) 06/02/18 04:52 Est GFR (MDRD) Non-Af 109 mL/min (>60) 06/02/18 04:52 BUN/Creatinine Ratio 37.4 RATIO (10-20) H 06/02/18 04:52 Glucose 88 mg/dL (74-106) 06/02/18 04:52 Vancomycin Trough 14.1 ug/mL (5.0-15.0) 06/01/18 15:35 Assessment/Plan: Psychotropic Medications: Unnecessary Medications: Bowel Regimen: - Provider Comments Provider responsibility: Provider responsible to enter orders to implement recommendations Provider Comments to Recommendations by Pharmacy: Agree
[2018-06-03 15:34] VITALS: BP 118/62; PULSE 83; RESP 16; TEMP 36.1; O2SAT 95
[2018-06-04] MEDS: 0.9% Saline Lock 10 ML Syringe IV (05:58)
[2018-06-04] MEDS: Enoxaparin 40 MG/0.4 ML Syringe SC (06:39)
[2018-06-04] MEDS: Ascorbic Acid 500 MG Tablet PO (06:40)
[2018-06-04] MEDS: Omega-3 Acid Ethyl Esters 1 GM Capsule PO (06:40)
[2018-06-04] MEDS: Levothyroxine 25 MCG TABLET PO (06:40)
[2018-06-04] MEDS: Senna/Docusate Sodium 1 Tablet 2 TABLET PO ×2 (06:40→17:02)
[2018-06-04] MEDS: Iron Polysaccharide Complex 150 MG CAPSULE PO (08:09)
[2018-06-04] MEDS: Aspirin E.C. 81 MG Tablet PO (08:09)
[2018-06-04] MEDS: Acetaminophen 500 MG Tablet 1000 MG PO (09:29)
[2018-06-04 10:00] VITALS: PULSE 86; RESP 18; O2SAT 97
--- NOTE | 2018-06-04 10:06 | NURSING ---
PT REFUSED TEDHOSE. STATED SHE LIKES HER FEET AND LEGS FREE. EDUCATED PT ON THE NEED FOR TEDS. PT STILL REFUSED. REPORTED TO MELODY RUEDA
--- NOTE | 2018-06-04 12:41 | NURSING ---
PT REFUSED PNEUMOVAX PSV-23. REPORTED TO MELODY RUEDA.
[2018-06-04] MEDS: Pantoprazole Sodium 40 MG Tablet PO (14:46)
[2018-06-04 15:47] VITALS: BP 115/68; PULSE 79; RESP 18; TEMP 35.6; O2SAT 93
[2018-06-04] MEDS: 0.9% NaCl PICC Flush IV (17:08)
[2018-06-04 18:50] LABS: Vancomycin, Trough Level 26.6 ug/mL (5.0-15.0)
--- NOTE | 2018-06-04 19:00 | NURSING ---
pharmacy called and stated to stop vanc, d/t elevated trough level. pt had gotten 400cc vanc, wasted 100cc. picc line locked
--- NOTE | 2018-06-04 19:00 | NURSING ---
AT 1700 THIS NURSE FLUSHED PICC LINE. GOOD BLOOD RETURN, NO S/S OF INFECTION. PT TOLERATED WELL. NO CONCERNS OR COMPLAINTS AT THIS TIME.
[2018-06-04] MEDS: oxyCODONE 5 MG Tablet 10 MG PO (19:30)
[2018-06-05] MEDS: oxyCODONE 5 MG Tablet 10 MG PO ×2 (00:52→05:49)
--- NOTE | 2018-06-05 01:38 | NURSING ---
During rounds, pt complained to this nurse of pain, as she had earlier in shift. Was given prn pain medication per request. Pt was wearing only gown that was wrapped around neck, not around body and no covers present. Stated she felt hot. Did not want thermostat adjusted because she 'will be cold in a minute'. Repositioned for comfort. Wound vac in tact and draining appropriately. Pt afebrile. RN aware, continuing to monitor.
[2018-06-05] MEDS: Levothyroxine 25 MCG TABLET PO (05:46)
[2018-06-05] MEDS: Enoxaparin 40 MG/0.4 ML Syringe SC (05:47)
[2018-06-05] MEDS: Omega-3 Acid Ethyl Esters 1 GM Capsule PO (05:48)
[2018-06-05] MEDS: Ascorbic Acid 500 MG Tablet PO (05:49)
[2018-06-05 07:50] LABS: Vancomycin, Random Level 11.3 ug/mL (0.0-15.0)
--- NOTE | 2018-06-05 08:07 | NURSING ---
Winston Seals in pharmacy, iván to hang 0600 dose of Vanco.
[2018-06-05] MEDS: Iron Polysaccharide Complex 150 MG CAPSULE PO (08:36)
[2018-06-05] MEDS: Aspirin E.C. 81 MG Tablet PO (08:36)
[2018-06-05 10:00] VITALS: PULSE 86; RESP 18; O2SAT 95
[2018-06-05] MEDS: 0.9% NaCl IVPB Med Flush (250 mL) 15 ML IV (11:44)
[2018-06-05] MEDS: 0.9% NaCl PICC Flush IV (11:44)
--- NOTE | 2018-06-05 12:22 | NURSING ---
wound photo: sacrum
[2018-06-05] MEDS: Acetaminophen 500 MG Tablet 1000 MG PO ×2 (12:25→19:16)
[2018-06-05] MEDS: Pantoprazole Sodium 40 MG Tablet PO (13:35)
[2018-06-05 15:38] VITALS: BP 119/67; PULSE 84; RESP 17; TEMP 36.9; O2SAT 95
[2018-06-05] MEDS: Senna/Docusate Sodium 1 Tablet 2 TABLET PO (17:18)
--- NOTE | 2018-06-05 20:46 | PCM.PN.SRG ---
Subjective: Postop #22 Patient is known to me. On 05/14/18 she went to surgery and underwent excision sacral pressure sore, Stage IV, with partial ostectomy for osteomyelitis. Postop wound care was done with the VAC. Operative cultures showed Corynebacterium minutissimum and Staphylococcus epidermidis in the soft tissue and Corynebacterium minutissimum in the bone. Pathology was positive for acute osteomyelitis. A PICC line was placed and she was started on IV Vancomycin which will last for 6 weeks. - Physical Exam General: Alert, Oriented x3 HEENT: PERRLA, EOMI Oral: Moist Mucosa Neck: Supple Abdomen: Soft, Non-Distended Skin: Ulcer/ Wound - sacral wound is stable. VAC in place. Minimal drainage in the canister. Neurological: Cranial nerves II-XII grossly intact Psych/Mental Status: Normal Affect, Appropriate Vital Signs Temp Pulse Resp BP Pulse Ox 98.4 F 84 17 119/67 95 06/05/18 15:38 06/05/18 15:38 06/05/18 15:38 06/05/18 15:38 06/05/18 15:38 Oxygen Delivery Method Room Air Weight: 206 lb Body Mass Index (BMI) 34.8 Intake and Output for Last 24 Hours 06/03/18 06/04/18 06/05/18 23:59 23:59 23:59 Intake Total 720 / 720 1180 / 1180 920 / 920 Balance 720 / 720 1180 / 1180 920 / 920 Laboratory Tests Past 24 Hrs 06/05/18 07:10 Random Vancomycin 11.3 Medical Necessity - Tobacco Use Smoking Status: Former smoker Assessment/Plan All Active Problems (Last Reviewed 05/16/18 @ 14:58 by Raúl Villareal DO) Acute osteomyelitis of sacrum (Acute) Acute blood loss anemia (Acute) Surgical wound present (Acute) Preop cardiovascular exam (Acute) Colovaginal fistula (Acute) Failure to thrive (Acute) Clostridium difficile colitis (Acute) Septic shock (Resolved) VITO (acute kidney injury) (Resolved) Encephalopathy (Resolved) Atrial fibrillation with RVR (Resolved) Clostridium difficile infection (Resolved) Rhabdomyolysis (Resolved) 1. Sacral pressure sore, Stage IV. 2. Osteomyelitis. 3. s/p repair colovaginal fistula. 4. s/p excision sacral pressure sore, Stage IV, with partial ostectomy for osteomyelitis. VAC in place. Minimal drainage in the canister. Continue IV Vancomycin for 6 weeks for the osteomyelitis. Prealbumin is 22.0. Encourage nutritional supplementation with protein to help the healing process. After discharge from [facility], [facility]up [facility].
--- NOTE | 2018-06-05 22:30 | NURSING ---
Patient states that she is feeling constipated and has not had a bm since this weekend. It is noted that last BM was 06/01. Patient has been refusing scheduled miralax as well as other prn stool softners. Dr. Sanchez notified of this. New orders given for magnesium citrate 300cc x 1. This nurse in to tell patient this. Patient states I don't want to take this now because I am going to be hooked up to IV antibiotics. I don't want to take it after antibiotics because I don't want to have to go to restroom all night long. This nurse offered to get patient bedside commode so patient didn't have to carpio to restroom, but patient refused. This nurse reminded patient that she c/o of feeling constipated and she still is refusing magnesium citrate at this time but states I will take it in the morning.
[2018-06-05] MEDS: 0.9% Saline Lock 10 ML Syringe IV (23:09)
[2018-06-06] MEDS: Acetaminophen 500 MG Tablet 1000 MG PO ×4 (01:18→20:15)
[2018-06-06] MEDS: Ascorbic Acid 500 MG Tablet PO (06:42)
[2018-06-06] MEDS: Omega-3 Acid Ethyl Esters 1 GM Capsule PO (06:42)
[2018-06-06] MEDS: Levothyroxine 25 MCG TABLET PO (06:42)
[2018-06-06] MEDS: 0.9% Saline Lock 10 ML Syringe IV (06:43)
[2018-06-06] MEDS: Enoxaparin 40 MG/0.4 ML Syringe SC (06:44)
--- NOTE | 2018-06-06 06:46 | NURSING ---
Addendum entered by Brigida Ferrell 06/06/18 08:41: Dr. Sanchez updated, NO for CXR. Original Note: Pt c/o pain in right breast with movement feels like a stabbing states has been like this for a few days and thinks left side is a unusually sensation. MELODY Mark aware.
[2018-06-06] MEDS: Magnesium Citrate 300 ML PO (07:17)
--- NOTE | 2018-06-06 08:25 | RAD_ITS ---
STUDY: X-RAY CHEST REASON FOR EXAM: Female, 67 years old. Chest pain. TECHNIQUE: Single AP portable view of the chest. COMPARISON: None. FINDINGS: There is elevation of the right hemidiaphragm. Scattered calcified granulomas. The lungs are clear. There is no demonstrated pleural abnormality. Normal size heart. Normal mediastinum and lacey. Normal visualized pulmonary arteries. There is atherosclerotic calcification of the aortic arch with tortuosity. There are degenerative changes of the visualized thoracic spine. Normal visualized ribs, clavicles, and shoulders. There is no demonstrated abnormality of the visualized soft tissue structures of the upper abdomen. RAD/Chest 1 View (Portable) IMPRESSION: No acute abnormality is seen. Electronically Signed: Fidel Rojas MD at 15:18 EST Tel [phone], Service support ,
--- NOTE | 2018-06-06 08:43 | NURSING ---
Wound VAC canister changed for a large amount serosanguineous drainage. there was approx 450 cc's noted in canister when changed. pt getting ready to work with OT at this time. denies needs.
[2018-06-06] MEDS: Aspirin E.C. 81 MG Tablet PO (09:08)
[2018-06-06 11:06] LABS: Vancomycin, Trough Level 13.5 ug/mL (5.0-15.0)
[2018-06-06] MEDS: 0.9% NaCl IVPB Med Flush (250 mL) 15 ML IV (12:11)
[2018-06-06] MEDS: 0.9% NaCl PICC Flush IV ×2 (12:15→23:01)
--- NOTE | 2018-06-06 12:25 | NURSING ---
PICC FLUSHED, GOOD BLOOD RETURN. NO S/S OF INFECTION. NO COMPLAINTS OR CONCERNS AT THIS TIME.
--- NOTE | 2018-06-06 13:31 | CASEMGMT ---
Brief interview for mental status (BIMS) and resident mood interview (PHQ-9) completed on this day. BIMS score 15. PHQ-9 score 10/28
[2018-06-06 14:15] VITALS: PULSE 96; RESP 18; O2SAT 98
--- NOTE | 2018-06-06 14:25 | PCM.RX.CS ---
Consult Pharmacy has been consulted to manage selected antiobiotic: Vancomycin Type of Consult: Follow-up Suspected Infection: Osteomyelitis Prior Doses of Antibiotics Received/Current Regimen: Medications Vancomycin HCl 1,500 mg/ (Sodium Chloride) 530 mls @ 250 mls/hr IV Q12H ELOISA Last Admin: 06/06/18 12:11 Dose: 250 mls/hr Labs: Sodium 145 mmol/L (136-145) 06/02/18 04:52 Potassium 3.9 mmol/L (3.5-5.1) 06/02/18 04:52 Chloride 110 mmol/L (98-107) H 06/02/18 04:52 Carbon Dioxide 26.0 mmol/L (21.0-32.0) 06/02/18 04:52 Anion Gap 9 (5-15) 06/02/18 04:52 BUN 22 mg/dL (7-18) H 06/02/18 04:52 Creatinine 0.59 mg/dL (0.55-1.02) 06/02/18 04:52 Est GFR (MDRD) Af Amer 131 mL/min (>60) 06/02/18 04:52 Est GFR (MDRD) Non-Af 109 mL/min (>60) 06/02/18 04:52 BUN/Creatinine Ratio 37.4 RATIO (10-20) H 06/02/18 04:52 Glucose 88 mg/dL (74-106) 06/02/18 04:52 Vancomycin Trough 13.5 ug/mL (5.0-15.0) 06/06/18 10:18 Random Vancomycin 11.3 ug/mL (0.0-15.0) 06/05/18 07:10 Weight used for dosin kg Goal Trough: 15-20 mcg/mL Pharmacy Plan for Drug Dosing: Vancomycin trough (26.6 on 06/04) drawn incorrectly while vancomycin was running, subsequent level (11.3 on 06/05) was a random after previous dose skipped and didn't reflect true level. True trough redrawn and was below range, patient's trough has not yet been within range so will recommend increase to 1750mg IV q12h, recheck per protocol prior to 4th dose of new order. Patient may likely accumulate once she reaches true steady-state and will adjust at that time. Pharmacy Service will continue to monitor and adjust dosing as required. Follow-Up Labs: Trough Vancomycin - 06/08 @ 2130
[2018-06-06] MEDS: Pantoprazole Sodium 40 MG Tablet PO (14:32)
--- NOTE | 2018-06-06 14:48 | NURSING ---
THIS NURSE WALKED IN TO PT ROOM AND FOUND PT CRYING AND UPSET. ASKED PT WHAT WAS WRONG. PT STATED I CANT GET MY GOWN UNTANGLED AND FASTENED UP AND REID ALL TWISTED IN MY WIRERS AND I FINALLY POOPED. CALMED PT DOWN AND HELPED GET HER IN TO BED AND COMFORTABLE. PT STARTED CRYING AGAIN AND STATED I FEEL SO BAD I YELLED AT THE NATE TO GO AWAY AND I NEED TO TELL HIM REID SORRY. THIS NURSE STATED TO PT I WOULD LET HIM KNOW. THERAPY THEN CAME TO ROOM AND PT TOLD RAKEL TO GO AWAY I DONT WANT ANY THERAPY RIGHT NOW. STAYED WITH PT AND TALKED TO HER TILL SHE FELT BETTER. PT THANKED THIS NURSE. REPORTED TO MELODY GONGORA
[2018-06-06 15:03] VITALS: BP 140/114; PULSE 77; RESP 18; TEMP 36.9; O2SAT 93
--- NOTE | 2018-06-06 15:19 | NURSING ---
Patient has c/o constipation, had medium, hard stool following magnesium citrate. States at home Linzess is the only medication that helps with her chronic constipation. Dr. Sanchez updated, NO for Linzess 145mg PO daily. Patient made aware.
[2018-06-06 16:23] VITALS: BP 156/77
[2018-06-07] MEDS: Acetaminophen 500 MG Tablet 1000 MG PO ×4 (02:18→20:51)
[2018-06-07] MEDS: Levothyroxine 25 MCG TABLET PO (06:20)
[2018-06-07] MEDS: Omega-3 Acid Ethyl Esters 1 GM Capsule PO (06:20)
[2018-06-07] MEDS: Ascorbic Acid 500 MG Tablet PO (06:20)
[2018-06-07] MEDS: Enoxaparin 40 MG/0.4 ML Syringe SC (06:21)
[2018-06-07] MEDS: Aspirin E.C. 81 MG Tablet PO (08:00)
[2018-06-07] MEDS: Iron Polysaccharide Complex 150 MG CAPSULE PO (08:01)
[2018-06-07] MEDS: 0.9% NaCl IVPB Med Flush (250 mL) 15 ML IV (09:07)
--- NOTE | 2018-06-07 09:10 | NURSING ---
Went in to start IV Vanc, pt asking about shower. Explained to pt that I can hold off on starting it and wait until occupational therapy done. Pt declined and stated no, I will take it now. Notified occupational therapy to see if they had pt down for shower today and that pt requesting showers on mondays and Fridays d/t wound vac changes. Occupational therapist will give pt shower in afternoon today so Vanc can run as ordered & wound nurse can change vac drsg then. Pt agreeable and staff updated on pt wanting shower days on sun & sun.
[2018-06-07] MEDS: 0.9% NaCl PICC Flush IV (09:14)
[2018-06-07] MEDS: Pantoprazole Sodium 40 MG Tablet PO (13:59)
[2018-06-07 15:19] VITALS: BP 109/68; PULSE 81; RESP 20; TEMP 36.7; O2SAT 96
[2018-06-07 20:35] VITALS: PULSE 68; RESP 18; O2SAT 95
[2018-06-07] MEDS: 0.9% Saline Lock 10 ML Syringe IV (21:08)
[2018-06-08] MEDS: Acetaminophen 500 MG Tablet 1000 MG PO ×4 (02:52→22:21)
[2018-06-08] MEDS: Ascorbic Acid 500 MG Tablet PO (06:13)
[2018-06-08] MEDS: Omega-3 Acid Ethyl Esters 1 GM Capsule PO (06:14)
[2018-06-08] MEDS: Levothyroxine 25 MCG TABLET PO (06:14)
[2018-06-08] MEDS: Enoxaparin 40 MG/0.4 ML Syringe SC (06:14)
[2018-06-08] MEDS: Aspirin E.C. 81 MG Tablet PO (08:08)
[2018-06-08] MEDS: Iron Polysaccharide Complex 150 MG CAPSULE PO (08:08)
[2018-06-08] MEDS: 0.9% Saline Lock 10 ML Syringe IV ×2 (09:42→22:25)
[2018-06-08] MEDS: 0.9% NaCl IVPB Med Flush (250 mL) 15 ML IV (09:46)
--- NOTE | 2018-06-08 09:51 | NURSING ---
THIS NURSE FLUSHED PICC LINE,GOOD BLOOD RETURN. NO S/S OF INFECTION. VANCOMYCIN RUNNING. NO CONCERNS OR COMPLAINTS AT THIS TIME. PT TOLERATED WELL.
[2018-06-08] MEDS: Pantoprazole Sodium 40 MG Tablet PO (13:51)
[2018-06-08 15:55] VITALS: BP 118/74; PULSE 78; RESP 16; TEMP 37.1; O2SAT 98
[2018-06-08 21:59] LABS: Vancomycin, Trough Level 16.7 ug/mL (5.0-15.0)
[2018-06-08 23:31] VITALS: RESP 18; O2SAT 97
--- NOTE | 2018-06-09 02:36 | PCM.RX.CS ---
Consult Pharmacy has been consulted to manage selected antiobiotic: Vancomycin Type of Consult: Follow-up Labs: Sodium 145 mmol/L (136-145) 06/02/18 04:52 Potassium 3.9 mmol/L (3.5-5.1) 06/02/18 04:52 Chloride 110 mmol/L (98-107) H 06/02/18 04:52 Carbon Dioxide 26.0 mmol/L (21.0-32.0) 06/02/18 04:52 Anion Gap 9 (5-15) 06/02/18 04:52 BUN 22 mg/dL (7-18) H 06/02/18 04:52 Creatinine 0.59 mg/dL (0.55-1.02) 06/02/18 04:52 Est GFR (MDRD) Af Amer 131 mL/min (>60) 06/02/18 04:52 Est GFR (MDRD) Non-Af 109 mL/min (>60) 06/02/18 04:52 BUN/Creatinine Ratio 37.4 RATIO (10-20) H 06/02/18 04:52 Glucose 88 mg/dL (74-106) 06/02/18 04:52 Vancomycin Trough 16.7 ug/mL (5.0-15.0) H 06/08/18 21:19 Random Vancomycin 11.3 ug/mL (0.0-15.0) 06/05/18 07:10 Goal Trough: 15-20 mcg/mL Pharmacy Plan for Drug Dosing: Pharmacy Service will continue to monitor and adjust dosing as required. TROUGH 16.7 IN RANGE NO CHANGES NEEDED, NEXT TROUGH 06/12/18 Follow-Up Labs: Trough Vancomycin Labs to be done on [date and time ordered]: 06/12 @ 4320
[2018-06-09] MEDS: 0.9% Saline Lock 10 ML Syringe IV ×4 (05:51→22:19)
[2018-06-09] MEDS: Acetaminophen 500 MG Tablet 1000 MG PO ×3 (05:57→18:15)
[2018-06-09] MEDS: Omega-3 Acid Ethyl Esters 1 GM Capsule PO (05:57)
[2018-06-09] MEDS: Ascorbic Acid 500 MG Tablet PO (05:57)
[2018-06-09] MEDS: Levothyroxine 25 MCG TABLET PO (05:57)
[2018-06-09] MEDS: Pantoprazole Sodium 40 MG Tablet PO (05:57)
[2018-06-09] MEDS: Enoxaparin 40 MG/0.4 ML Syringe SC (05:59)
[2018-06-09 07:22] LABS: Absolute Neutrophil Count 4.7 X10^3/uL (2.0-7.7); Basophil# 0.05 X10^3/uL; Basophil% 0.6 % (0-1); Hematocrit 34.8 % (37-47); Hemoglobin 10.6 g/dl (12.0-15.0); Lymphocyte % 22.5 % (19-41); Mean Corp Hgb Conc 30.5 g/gl (32-36); Mean Corpuscular Hgb 24.9 pg (27.0-32.0); Mean Corpuscular Volume 81.9 fL (81-99); Monocyte# 1.04 X10^3/uL; Neutrophil # 4.69 X10^3/uL (2.7-7.7); Neutrophil % 58.8 % (47-70); Platelet Count 427 K/mm3 (150-450); RBC Distribution Width CV 21.4 % (11.6-14.6); RBC Distribution Width SD 63.8 fl (35.1-43.9); Red Blood Count 4.25 M/mm3 (4.2-5.4)
[2018-06-09 07:25] LABS: Erythrocyte Sedimentation Rate 42 mm/hr (0-30)
[2018-06-09 07:26] LABS: Differential Indicated SCAN CRITERIA MET; POSITIVE COUNT NO; POSITIVE DIFFERENTIAL NO; POSITIVE MORPHOLOGY YES
[2018-06-09 07:45] LABS: ALB/GLOB Ratio 0.8 RATIO (0.9-2.4); AST(SGOT) 16 U/L (15-37); Alanine Aminotransfer ALT/SGPT 19 U/L (13-56); Alkaline Phosphatase 72 U/L (45-117); Anion Gap 7 (5-15); Anisocytosis RARE; BUN 18 mg/dL (7-18); BUN/Creat Ratio 30.3 RATIO (10-20); Calcium,Total 8.9 mg/dL (8.5-10.1); Chloride 110 mmol/L (98-107); EST Glomerular Filtration Rate 107 mL/min (>60); Est Glom Filt Rate - Afr Amer 130 mL/min (>60); Estimated Creatinine Clearance 47.79 ml/min; Globulin 3.9 g/dL (2.2-4.2); Glucose 83 mg/dL (74-106); Protein, Total 6.9 g/dL (6.4-8.2); Sodium Level 143 mmol/L (136-145)
[2018-06-09] MEDS: Aspirin E.C. 81 MG Tablet PO (08:13)
[2018-06-09] MEDS: Iron Polysaccharide Complex 150 MG CAPSULE PO (08:13)
[2018-06-09] MEDS: 0.9% NaCl IVPB Med Flush (250 mL) 15 ML IV (09:26)
[2018-06-09 09:30] VITALS: PULSE 74; RESP 18; O2SAT 94
--- NOTE | 2018-06-09 09:45 | NURSING ---
PICC FLUSHED,GOOD BLOOD RETURN. NO S/S OF INFECTION. PT TOLERATED WELL. VANCOMYCIN RUNNING.
[2018-06-09] MEDS: Tuberculin,Purif.prot.deriv. 50 TU/ML Vial 5 ML ID (13:06)
[2018-06-09 15:19] VITALS: BP 107/46; PULSE 75; RESP 16; TEMP 36.6; O2SAT 94
[2018-06-09] MEDS: Senna/Docusate Sodium 1 Tablet 2 TABLET PO (16:52)
[2018-06-10] MEDS: Acetaminophen 500 MG Tablet 1000 MG PO ×4 (01:27→20:20)
[2018-06-10] MEDS: Ascorbic Acid 500 MG Tablet PO (07:16)
[2018-06-10] MEDS: Omega-3 Acid Ethyl Esters 1 GM Capsule PO (07:17)
[2018-06-10] MEDS: Levothyroxine 25 MCG TABLET PO (07:17)
[2018-06-10] MEDS: Enoxaparin 40 MG/0.4 ML Syringe SC (07:19)
[2018-06-10] MEDS: Aspirin E.C. 81 MG Tablet PO (08:23)
[2018-06-10] MEDS: Iron Polysaccharide Complex 150 MG CAPSULE PO (08:23)
--- NOTE | 2018-06-10 10:11 | NURSING ---
NO to change linzess to daily PRN.
--- NOTE | 2018-06-10 11:45 | NURSING ---
wound photo: sacrum
[2018-06-10] MEDS: 0.9% NaCl IVPB Med Flush (250 mL) 15 ML IV ×2 (12:54→13:20)
[2018-06-10] MEDS: 0.9% Saline Lock 10 ML Syringe IV ×2 (12:54→23:24)
--- NOTE | 2018-06-10 13:19 | PCM.PN.ID ---
Subjective: Feeling well, pain controlled, no issues with picc, no fever, no n/v/d. - Physical Exam General: Alert, Cooperative, No apparent distress Lungs: Clear to auscultation, Normal air movement Cardiovascular: Regular rate, Regular Rhythm Abdomen: Soft, Non Tender, Non-Distended Skin: Ulcer/ Wound - reviewed photo Vital Signs Temp Pulse Resp BP Pulse Ox 97.8 F 75 16 107/46 L 94 06/09/18 15:19 06/09/18 15:19 06/09/18 15:19 06/09/18 15:19 06/09/18 15:19 Oxygen Delivery Method Room Air Weight: 93.44 kg Body Mass Index (BMI) 34.8 Intake and Output for Last 24 Hours 06/08/18 06/09/18 06/10/18 23:59 23:59 23:59 Intake Total 970 / 970 1200 / 1200 600 / 600 Balance 970 / 970 1200 / 1200 600 / 600 Medical Necessity - Tobacco Use Smoking Status: Former smoker Route of nutrition/ use of supplements: [] Nutritional Intake: [] IV Site: [] Grewal Catheter: [] - Assessment/Plan Antibiotics: [] Assessment/Plan: [] Sacral osteo with surg cx (+) for corynebacterium and MSSE, recent cx also with MSSA seen. Continue iv vanc for 6 week course. Trough at goal. Dr. Hansen following. Will follow
[2018-06-10] MEDS: Pantoprazole Sodium 40 MG Tablet PO (13:35)
[2018-06-10 15:40] VITALS: BP 143/84; PULSE 78; RESP 16; TEMP 35.6; O2SAT 98
--- NOTE | 2018-06-10 16:16 | CHAPLAIN ---
brief greeting and check in; pt had visitors with her; pt apologized for rude response last week toward construction trades teacher when she was having a bad day; RN had alerted construction trades teacher to this previously; construction trades teacher made special effort to see this pt and reassure her that no offense was taken; pt emphasized that she does want to see the construction trades teacher and would like a return visit when she does not have visitors
[2018-06-10 20:21] VITALS: PULSE 83; RESP 18; O2SAT 96
[2018-06-11] MEDS: Acetaminophen 500 MG Tablet 1000 MG PO ×4 (02:20→20:22)
[2018-06-11] MEDS: Levothyroxine 25 MCG TABLET PO (06:25)
[2018-06-11] MEDS: Ascorbic Acid 500 MG Tablet PO (06:25)
[2018-06-11] MEDS: Enoxaparin 40 MG/0.4 ML Syringe SC (06:25)
[2018-06-11] MEDS: Omega-3 Acid Ethyl Esters 1 GM Capsule PO (06:25)
[2018-06-11] MEDS: Aspirin E.C. 81 MG Tablet PO (08:19)
[2018-06-11] MEDS: Iron Polysaccharide Complex 150 MG CAPSULE PO (08:20)
[2018-06-11] MEDS: 0.9% Saline Lock 10 ML Syringe IV (09:34)
--- NOTE | 2018-06-11 09:48 | NURSING ---
PT PICC FLUSHED,GOOD BLOOD RETURN. NO S/S OF INFECTION. NO COMPLAINTS OR CONCERNS AT THIS TIME. PT TOLERATED WELL.
[2018-06-11 10:00] VITALS: PULSE 76; RESP 18; O2SAT 95
--- NOTE | 2018-06-11 11:04 | NURSING ---
PT STATED TO THIS NURSE THAT HER BLADDER DOESN'T EMPTY OUT AND THAT HER ANUS FEELS NUMB. REPORTED TO MELODY RUEDA
--- NOTE | 2018-06-11 13:29 | CHAPLAIN ---
Type of Pastoral Visit ___ Initial Visit _x__ Follow-up Visit ___ On-call Visit ___ General Patient Visit ___ Spiritual Assessment ___ Family Conference ___ Bereavement ___ Rapid Response ___ Code Blue ___ Other (describe below) Pastoral Care Referral From _x__ Patient ___ Family ___ Nurse ___ Physician ___ Classification Inspector ___ Speeder Hand ___ Other (describe below) Sacrament/Intervention _x__ Active listening ___ Anointing ___ Sabianism ___ Bereavement ___ Communion ___ Mayra exploration ___ _x__ Life review _x__ Prayer ___ Reconciliation ___ Sacrament of Sick _x__ Supportive presence ___ Wedding ___ Other (describe below) Pastoral Comments patient has spiritual doubts and questions
[2018-06-11] MEDS: Pantoprazole Sodium 40 MG Tablet PO (14:14)
[2018-06-11 16:00] VITALS: BP 119/74; PULSE 79; RESP 18; TEMP 36.6; O2SAT 96
[2018-06-11] MEDS: Senna/Docusate Sodium 1 Tablet 2 TABLET PO (16:33)
--- NOTE | 2018-06-11 16:36 | NURSING ---
BLADDER SCANNED PT FOR 60 POST. REPORTED TO MELODY SMITH
[2018-06-11] MEDS: 0.9% NaCl PICC Flush IV (23:24)
[2018-06-12] MEDS: Acetaminophen 500 MG Tablet 1000 MG PO ×4 (02:35→20:51)
[2018-06-12] MEDS: Ascorbic Acid 500 MG Tablet PO (06:28)
[2018-06-12] MEDS: Enoxaparin 40 MG/0.4 ML Syringe SC (06:29)
[2018-06-12] MEDS: Omega-3 Acid Ethyl Esters 1 GM Capsule PO (06:29)
[2018-06-12] MEDS: Levothyroxine 25 MCG TABLET PO (06:29)
--- NOTE | 2018-06-12 06:31 | NURSING ---
Pt states she will ask for linzess after therapy is complete for the day, it is more effective than senna or miralax which she refused, and she does not want until after therapy so she is not 'running to the bathroom the whole time'. Oncoming nurse aware of this, as is RN. Continuing to monitor.
[2018-06-12] MEDS: Aspirin E.C. 81 MG Tablet PO (08:04)
[2018-06-12] MEDS: Iron Polysaccharide Complex 150 MG CAPSULE PO (08:04)
[2018-06-12 09:40] VITALS: PULSE 92; RESP 18; O2SAT 97
[2018-06-12] MEDS: 0.9% Saline Lock 10 ML Syringe IV ×2 (09:41→21:57)
[2018-06-12] MEDS: 0.9% NaCl IVPB Med Flush (250 mL) 15 ML IV (09:51)
--- NOTE | 2018-06-12 09:58 | NURSING ---
PICC FLUSHED,GOOD BLOOD RETURN. NO S/S OF INFECTION. PT TOLERATED WELL. NO COMPLAINTS OR CONCERNS AT THIS TIME. VANCO INFUSING
--- NOTE | 2018-06-12 10:35 | CASEMGMT ---
Plan of care meeting held. Resident present. No discharge date set at this time. Resident to continue with further care and treatment on the Transitional Care Unit. Resident plans to discharge to home alone. Support given. Will continue to follow. RUSSELL Norwood, PHOTOTYPESETTER OPERATOR
--- NOTE | 2018-06-12 13:20 | MDS.RN ---
Information for the mds was obtained from review of the clinical record, interview of resident, staff, and direct observation of resident's care.
[2018-06-12] MEDS: Pantoprazole Sodium 40 MG Tablet PO (14:02)
[2018-06-12] MEDS: Linacolotide 145 MCG CAPSULE PO (14:03)
--- NOTE | 2018-06-12 14:58 | CASEMGMT ---
Brief interview for mental status (BIMS) and resident mood interview (PHQ-9) completed on this day. BIMS score 15/15. PHQ-9 score 11/28
[2018-06-12 16:00] VITALS: BP 145/74; PULSE 74; RESP 14; TEMP 37; O2SAT 94
[2018-06-13] MEDS: Acetaminophen 500 MG Tablet 1000 MG PO ×4 (02:51→21:30)
[2018-06-13] MEDS: Ascorbic Acid 500 MG Tablet PO (06:55)
[2018-06-13] MEDS: Omega-3 Acid Ethyl Esters 1 GM Capsule PO (06:55)
[2018-06-13] MEDS: Levothyroxine 25 MCG TABLET PO (06:55)
[2018-06-13] MEDS: Enoxaparin 40 MG/0.4 ML Syringe SC (06:55)
[2018-06-13] MEDS: Senna/Docusate Sodium 1 Tablet 2 TABLET PO (06:56)
[2018-06-13] MEDS: Aspirin E.C. 81 MG Tablet PO (08:10)
[2018-06-13] MEDS: Iron Polysaccharide Complex 150 MG CAPSULE PO (08:10)
[2018-06-13 10:00] VITALS: PULSE 87; RESP 16; O2SAT 95
[2018-06-13 10:21] LABS: Vancomycin, Trough Level 18.1 ug/mL (5.0-15.0)
[2018-06-13] MEDS: 0.9% Saline Lock 10 ML Syringe IV ×2 (10:34→21:41)
[2018-06-13] MEDS: 0.9% NaCl IVPB Med Flush (250 mL) 15 ML IV (10:34)
--- NOTE | 2018-06-13 14:09 | PCM.RX.CS ---
Consult Pharmacy has been consulted to manage selected antiobiotic: Vancomycin Type of Consult: Follow-up Suspected Infection: Other Labs: Sodium 143 mmol/L (136-145) 06/09/18 06:45 Potassium 4.0 mmol/L (3.5-5.1) 06/09/18 06:45 Chloride 110 mmol/L (98-107) H 06/09/18 06:45 Carbon Dioxide 26.0 mmol/L (21.0-32.0) 06/09/18 06:45 Anion Gap 7 (5-15) 06/09/18 06:45 BUN 18 mg/dL (7-18) 06/09/18 06:45 Creatinine 0.60 mg/dL (0.55-1.02) 06/09/18 06:45 Est GFR (MDRD) Af Amer 130 mL/min (>60) 06/09/18 06:45 Est GFR (MDRD) Non-Af 107 mL/min (>60) 06/09/18 06:45 BUN/Creatinine Ratio 30.3 RATIO (10-20) H 06/09/18 06:45 Glucose 83 mg/dL (74-106) 06/09/18 06:45 Vancomycin Trough 18.1 ug/mL (5.0-15.0) H 06/13/18 09:20 Random Vancomycin 11.3 ug/mL (0.0-15.0) 06/05/18 07:10 Weight used for dosin kg Goal Trough: 15-20 mcg/mL Pharmacy Plan for Drug Dosing: Trough within goal range. Recheck in 1 week. Stop date 07/10/18. Pharmacy Service will continue to monitor and adjust dosing as required. Follow-Up Labs: Trough Vancomycin - 06/20/18
[2018-06-13] MEDS: Pantoprazole Sodium 40 MG Tablet PO (14:16)
[2018-06-13 16:00] VITALS: BP 118/66; PULSE 78; RESP 16; TEMP 36.2; O2SAT 95
[2018-06-14] MEDS: Acetaminophen 500 MG Tablet 1000 MG PO ×4 (03:32→21:43)
[2018-06-14] MEDS: Omega-3 Acid Ethyl Esters 1 GM Capsule PO (06:12)
[2018-06-14] MEDS: Enoxaparin 40 MG/0.4 ML Syringe SC (06:13)
[2018-06-14] MEDS: Levothyroxine 25 MCG TABLET PO (06:13)
[2018-06-14] MEDS: Ascorbic Acid 500 MG Tablet PO (06:13)
[2018-06-14] MEDS: Aspirin E.C. 81 MG Tablet PO (08:26)
[2018-06-14] MEDS: Iron Polysaccharide Complex 150 MG CAPSULE PO (08:26)
[2018-06-14 10:00] VITALS: PULSE 85; RESP 18; O2SAT 95
[2018-06-14] MEDS: 0.9% NaCl IVPB Med Flush (250 mL) 15 ML IV (11:02)
[2018-06-14] MEDS: 0.9% Saline Lock 10 ML Syringe IV ×2 (11:02→21:44)
[2018-06-14] MEDS: Linacolotide 145 MCG CAPSULE PO (12:27)
[2018-06-14] MEDS: Pantoprazole Sodium 40 MG Tablet PO (12:27)
[2018-06-14 15:39] VITALS: BP 105/48; PULSE 73; RESP 16; TEMP 36.6; O2SAT 94
[2018-06-15] MEDS: Acetaminophen 500 MG Tablet 1000 MG PO ×4 (03:48→23:14)
[2018-06-15] MEDS: Enoxaparin 40 MG/0.4 ML Syringe SC (06:26)
[2018-06-15] MEDS: Levothyroxine 25 MCG TABLET PO (06:27)
[2018-06-15] MEDS: Omega-3 Acid Ethyl Esters 1 GM Capsule PO (06:27)
[2018-06-15] MEDS: Ascorbic Acid 500 MG Tablet PO (06:28)
[2018-06-15] MEDS: Iron Polysaccharide Complex 150 MG CAPSULE PO (08:20)
[2018-06-15] MEDS: Aspirin E.C. 81 MG Tablet PO (08:20)
[2018-06-15] MEDS: 0.9% Saline Lock 10 ML Syringe IV ×2 (10:39→22:34)
[2018-06-15] MEDS: 0.9% NaCl IVPB Med Flush (250 mL) 15 ML IV (10:42)
[2018-06-15] MEDS: Pantoprazole Sodium 40 MG Tablet PO (13:38)
[2018-06-15 15:30] VITALS: BP 105/58; PULSE 77; RESP 16; TEMP 36.9; O2SAT 95
[2018-06-15] MEDS: Senna/Docusate Sodium 1 Tablet 2 TABLET PO (17:25)
[2018-06-15 20:50] VITALS: PULSE 68; RESP 18; O2SAT 95
[2018-06-16] MEDS: Acetaminophen 500 MG Tablet 1000 MG PO ×4 (05:20→23:35)
[2018-06-16] MEDS: Omega-3 Acid Ethyl Esters 1 GM Capsule PO (05:21)
[2018-06-16] MEDS: Ascorbic Acid 500 MG Tablet PO (05:21)
[2018-06-16] MEDS: Senna/Docusate Sodium 1 Tablet 2 TABLET PO ×2 (05:21→17:36)
[2018-06-16] MEDS: Enoxaparin 40 MG/0.4 ML Syringe SC (05:22)
[2018-06-16] MEDS: Levothyroxine 25 MCG TABLET PO (05:22)
[2018-06-16 07:39] LABS: ALB/GLOB Ratio 0.8 RATIO (0.9-2.4); AST(SGOT) 12 U/L (15-37); Alanine Aminotransfer ALT/SGPT 19 U/L (13-56); Alkaline Phosphatase 72 U/L (45-117); Anion Gap 8 (5-15); BUN 21 mg/dL (7-18); BUN/Creat Ratio 34.7 RATIO (10-20); Calcium,Total 8.9 mg/dL (8.5-10.1); Chloride 110 mmol/L (98-107); EST Glomerular Filtration Rate 105 mL/min (>60); Erythrocyte Sedimentation Rate 38 mm/hr (0-30); Est Glom Filt Rate - Afr Amer 127 mL/min (>60); Estimated Creatinine Clearance 47.79 ml/min; Globulin 3.8 g/dL (2.2-4.2); Glucose 83 mg/dL (74-106); Potassium 4.4 mmol/L (3.5-5.1); Protein, Total 6.8 g/dL (6.4-8.2); Sodium Level 143 mmol/L (136-145)
[2018-06-16 07:48] LABS: Absolute Lymphocyte Count 1.59 X10^3/ul (0.83-4.51); Absolute Neutrophil Count 4.4 X10^3/uL (2.0-7.7); Basophil# 0.05 X10^3/uL; Basophil% 0.7 % (0-1); Eosinophil# 0.43 X10^3/uL; Eosinophils% 5.7 % (0-5); Hematocrit 36.7 % (37-47); Lymphocyte # 1.59 X10^3/ul (4.0); Lymphocyte % 21.2 % (19-41); Mean Corpuscular Hgb 25.1 pg (27.0-32.0); Mean Corpuscular Volume 83.8 fL (81-99); Monocyte% 13.3 % (0-10); Neutrophil # 4.42 X10^3/uL (2.7-7.7); Neutrophil % 58.8 % (47-70); Platelet Count 311 K/mm3 (150-450); RBC Distribution Width CV 20.8 % (11.6-14.6); RBC Distribution Width SD 62.9 fl (35.1-43.9); Red Blood Count 4.38 M/mm3 (4.2-5.4); White Blood Count 7.5 K/mm3 (4.4-11.0)
[2018-06-16 08:03] LABS: Differential Indicated SCAN CRITERIA MET; POSITIVE COUNT NO; POSITIVE DIFFERENTIAL NO; POSITIVE MORPHOLOGY YES
[2018-06-16 08:04] LABS: Anisocytosis 1+; Hypochromasia RARE; Platelet Estimate ADEQUATE (ADEQ)
[2018-06-16] MEDS: Iron Polysaccharide Complex 150 MG CAPSULE PO (08:07)
[2018-06-16] MEDS: Aspirin E.C. 81 MG Tablet PO (08:08)
[2018-06-16 10:00] VITALS: PULSE 80; O2SAT 93
[2018-06-16] MEDS: 0.9% Saline Lock 10 ML Syringe IV ×2 (10:00→22:04)
[2018-06-16 15:27] VITALS: BP 116/67; PULSE 73; RESP 16; TEMP 37; O2SAT 95
[2018-06-16] MEDS: Pantoprazole Sodium 40 MG Tablet PO (16:15)
--- NOTE | 2018-06-16 18:32 | NURSING ---
PICC line dressing changed per sterile technique.
[2018-06-17] MEDS: Senna/Docusate Sodium 1 Tablet 2 TABLET PO (05:35)
[2018-06-17] MEDS: Enoxaparin 40 MG/0.4 ML Syringe SC (05:35)
[2018-06-17] MEDS: Omega-3 Acid Ethyl Esters 1 GM Capsule PO (05:36)
[2018-06-17] MEDS: Levothyroxine 25 MCG TABLET PO (05:36)
[2018-06-17] MEDS: Acetaminophen 500 MG Tablet 1000 MG PO ×3 (05:36→23:33)
[2018-06-17] MEDS: Ascorbic Acid 500 MG Tablet PO (05:36)
[2018-06-17] MEDS: Iron Polysaccharide Complex 150 MG CAPSULE PO (08:00)
[2018-06-17] MEDS: Aspirin E.C. 81 MG Tablet PO (08:00)
[2018-06-17 10:00] VITALS: PULSE 76; RESP 16; O2SAT 96
[2018-06-17] MEDS: 0.9% NaCl IVPB Med Flush (250 mL) 15 ML IV (10:09)
[2018-06-17] MEDS: 0.9% Saline Lock 10 ML Syringe IV ×2 (10:10→21:51)
[2018-06-17] MEDS: Pantoprazole Sodium 40 MG Tablet PO (13:29)
--- NOTE | 2018-06-17 14:11 | PCM.PN.ID ---
Subjective: Feeling well, no fever, no n/v/d. - Physical Exam General: Alert, Cooperative, No apparent distress Lungs: Clear to auscultation, Normal air movement Cardiovascular: Regular rate, Regular Rhythm Abdomen: Soft, Non Tender, Non-Distended Skin: Ulcer/ Wound - wound vac in place Vital Signs Temp Pulse Resp BP Pulse Ox 98.6 F 76 16 116/67 96 06/16/18 15:27 06/17/18 10:00 06/17/18 10:00 06/16/18 15:27 06/17/18 10:00 Oxygen Delivery Method Room Air Weight: 93.157 kg Body Mass Index (BMI) 34.8 Intake and Output for Last 24 Hours 06/15/18 06/16/18 06/17/18 23:59 23:59 23:59 Intake Total 1711 / 1711993 600 / 600 Balance 1711 / 1711 600 / 600 Medical Necessity - Tobacco Use Smoking Status: Former smoker Route of nutrition/ use of supplements: [] Nutritional Intake: [] IV Site: [] Grewal Catheter: [] - Assessment/Plan Antibiotics: [] Assessment/Plan: [] Sacral osteo with surg cx (+) for corynebacterium and MSSE, recent cx also with MSSA seen. Continue iv vanc for 6 week course. Trough at goal. Dr. Hansen following. ESR improving. Will follow
[2018-06-17 15:36] VITALS: BP 116/61; PULSE 83; RESP 14; TEMP 36.7; O2SAT 93
[2018-06-18] MEDS: Acetaminophen 500 MG Tablet 1000 MG PO ×3 (05:35→17:50)
[2018-06-18] MEDS: Levothyroxine 25 MCG TABLET PO (05:35)
[2018-06-18] MEDS: Ascorbic Acid 500 MG Tablet PO (05:35)
[2018-06-18] MEDS: Omega-3 Acid Ethyl Esters 1 GM Capsule PO (05:35)
[2018-06-18] MEDS: Enoxaparin 40 MG/0.4 ML Syringe SC (05:38)
[2018-06-18] MEDS: Iron Polysaccharide Complex 150 MG CAPSULE PO (08:39)
[2018-06-18] MEDS: Aspirin E.C. 81 MG Tablet PO (08:39)
[2018-06-18] MEDS: 0.9% Saline Lock 10 ML Syringe IV ×2 (10:07→21:29)
[2018-06-18] MEDS: 0.9% NaCl IVPB Med Flush (250 mL) 15 ML IV (10:08)
--- NOTE | 2018-06-18 13:56 | NURSING ---
PT PICC FLUSHED,GOOD BLOOD RETURN. NO S/S OF INFECTION. PT TOLERATED WELL. NO COMPLANTS OR CONCERNS AT THIS TIME.
[2018-06-18] MEDS: Pantoprazole Sodium 40 MG Tablet PO (14:06)
[2018-06-18 16:00] VITALS: BP 133/79; PULSE 88; RESP 16; TEMP 37.1; O2SAT 95
[2018-06-18] MEDS: Senna/Docusate Sodium 1 Tablet 2 TABLET PO (17:31)
[2018-06-18] MEDS: Gabapentin 100 MG Capsule PO (18:22)
[2018-06-18 22:00] VITALS: PULSE 80; RESP 18; O2SAT 96
[2018-06-19] MEDS: Acetaminophen 500 MG Tablet 1000 MG PO ×4 (06:12→18:28)
[2018-06-19] MEDS: Omega-3 Acid Ethyl Esters 1 GM Capsule PO (06:13)
[2018-06-19] MEDS: Senna/Docusate Sodium 1 Tablet 2 TABLET PO ×2 (06:13→17:02)
[2018-06-19] MEDS: Enoxaparin 40 MG/0.4 ML Syringe SC (06:13)
[2018-06-19] MEDS: Levothyroxine 25 MCG TABLET PO (06:14)
[2018-06-19] MEDS: Ascorbic Acid 500 MG Tablet PO (06:14)
[2018-06-19] MEDS: Iron Polysaccharide Complex 150 MG CAPSULE PO (08:18)
[2018-06-19] MEDS: Aspirin E.C. 81 MG Tablet PO (08:18)
[2018-06-19 10:00] VITALS: PULSE 84; RESP 18; O2SAT 97
[2018-06-19] MEDS: 0.9% NaCl IVPB Med Flush (250 mL) 15 ML IV (10:18)
--- NOTE | 2018-06-19 11:50 | MDS.RN ---
Information for the mds was obtained from review of the clinical record, interview of resident, staff and direct observation of resident's care.
[2018-06-19] MEDS: Gabapentin 100 MG Capsule PO ×2 (12:25→17:04)
[2018-06-19] MEDS: Pantoprazole Sodium 40 MG Tablet PO (13:20)
[2018-06-19 15:43] VITALS: BP 121/65; PULSE 84; RESP 14; TEMP 36.4; O2SAT 96
[2018-06-19] MEDS: 0.9% Saline Lock 10 ML Syringe IV (21:14)
[2018-06-20] MEDS: Gabapentin 100 MG Capsule PO ×2 (00:28→17:46)
[2018-06-20] MEDS: Acetaminophen 500 MG Tablet 1000 MG PO ×4 (00:28→19:14)
[2018-06-20] MEDS: Omega-3 Acid Ethyl Esters 1 GM Capsule PO (06:32)
[2018-06-20] MEDS: Enoxaparin 40 MG/0.4 ML Syringe SC (06:32)
[2018-06-20] MEDS: Levothyroxine 25 MCG TABLET PO (06:32)
[2018-06-20] MEDS: Ascorbic Acid 500 MG Tablet PO (06:32)
[2018-06-20] MEDS: Senna/Docusate Sodium 1 Tablet 2 TABLET PO ×2 (06:33→17:42)
[2018-06-20] MEDS: Iron Polysaccharide Complex 150 MG CAPSULE PO (08:17)
[2018-06-20] MEDS: Aspirin E.C. 81 MG Tablet PO (08:17)
[2018-06-20 10:04] LABS: Vancomycin, Trough Level 17.5 ug/mL (5.0-15.0)
[2018-06-20] MEDS: 0.9% NaCl IVPB Med Flush (250 mL) 15 ML IV (10:20)
[2018-06-20] MEDS: 0.9% Saline Lock 10 ML Syringe IV ×2 (10:20→21:40)
--- NOTE | 2018-06-20 10:28 | NURSING ---
PT PICC FLUSHED,GOOD BLOOD RETURN. NO S/S OF INFECTION. PT TOLERATED WELL. VANCOMYCIN INFUSING.
--- NOTE | 2018-06-20 11:30 | PCM.RX.CS ---
Consult Pharmacy has been consulted to manage selected antiobiotic: Vancomycin Type of Consult: Follow-up Prior Doses of Antibiotics Received/Current Regimen: VANCOMYCIN 1750MG IV Q12HRS: 06/19@2504, 06/20@1022 Labs: Sodium 143 mmol/L (136-145) 06/16/18 07:05 Potassium 4.4 mmol/L (3.5-5.1) 06/16/18 07:05 Chloride 110 mmol/L (98-107) H 06/16/18 07:05 Carbon Dioxide 25.0 mmol/L (21.0-32.0) 06/16/18 07:05 Anion Gap 8 (5-15) 06/16/18 07:05 BUN 21 mg/dL (7-18) H 06/16/18 07:05 Creatinine 0.60 mg/dL (0.55-1.02) 06/16/18 07:05 Est GFR (MDRD) Af Amer 127 mL/min (>60) 06/16/18 07:05 Est GFR (MDRD) Non-Af 105 mL/min (>60) 06/16/18 07:05 BUN/Creatinine Ratio 34.7 RATIO (10-20) H 06/16/18 07:05 Glucose 83 mg/dL (74-106) 06/16/18 07:05 Vancomycin Trough 17.5 ug/mL (5.0-15.0) H 06/20/18 09:10 Random Vancomycin 11.3 ug/mL (0.0-15.0) 06/05/18 07:10 Goal Trough: 15-20 mcg/mL Pharmacy Plan for Drug Dosing: The patient had a trough drawn, which resulted in a value of 17.5 (12hrs from last administered dose). This is within the goal trough of 15-20. Will continue current regimen and recheck a trough in 1 week. PLAN/RECOMMENDATIONS 1. Continue vancomycin 1750mg IV Q12hrs 2. Trough scheduled 06/24/18 @0930 3. Pharmacy Service will continue to monitor and adjust dosing as required.
[2018-06-20] MEDS: Pantoprazole Sodium 40 MG Tablet PO (14:01)
[2018-06-20 15:26] VITALS: BP 143/77; PULSE 73; RESP 24; TEMP 36.8; O2SAT 96
[2018-06-20 20:03] VITALS: PULSE 84; RESP 16; O2SAT 96
[2018-06-21] MEDS: Acetaminophen 500 MG Tablet 1000 MG PO ×4 (01:23→20:26)
[2018-06-21] MEDS: Ascorbic Acid 500 MG Tablet PO (06:40)
[2018-06-21] MEDS: Levothyroxine 25 MCG TABLET PO (06:40)
[2018-06-21] MEDS: Omega-3 Acid Ethyl Esters 1 GM Capsule PO (06:40)
[2018-06-21] MEDS: Senna/Docusate Sodium 1 Tablet 2 TABLET PO ×2 (06:40→17:35)
[2018-06-21] MEDS: Enoxaparin 40 MG/0.4 ML Syringe SC (06:44)
[2018-06-21] MEDS: Aspirin E.C. 81 MG Tablet PO (07:40)
[2018-06-21] MEDS: Iron Polysaccharide Complex 150 MG CAPSULE PO (07:40)
[2018-06-21] MEDS: 0.9% NaCl IVPB Med Flush (250 mL) 15 ML IV ×2 (09:41→21:14)
[2018-06-21] MEDS: 0.9% Saline Lock 10 ML Syringe IV ×2 (09:43→21:15)
[2018-06-21 09:45] VITALS: PULSE 70; RESP 18; O2SAT 96
--- NOTE | 2018-06-21 09:56 | NURSING ---
PICC FLUSHED,GOOD BLOOD RETURN. NO S/S OF INFECTION. PT TOLERATED WELL. NO COMPLANTS OR CONCERNS AT THIS TIME. THIS NURSE ALSO NOTICED AT ASSESSMENT THAT PT HAS A QUARTER SIZE BRUISE ON BACK OF RIGHT CALF. ASKED PT WHAT HAPPENED,PT STATED SHE DIDNT KNOW. REPORTED TO MELODY GONGORA
[2018-06-21] MEDS: Gabapentin 100 MG Capsule PO (11:59)
[2018-06-21] MEDS: Pantoprazole Sodium 40 MG Tablet PO (13:42)
--- NOTE | 2018-06-21 15:38 | NURSING ---
wound photo: sacrum
[2018-06-21] MEDS: Divalproex Sodium 250 MG Tablet 500 MG PO ×2 (15:58→17:35)
[2018-06-21 16:00] VITALS: BP 152/85; PULSE 89; RESP 18; TEMP 36.9; O2SAT 94
--- NOTE | 2018-06-21 18:14 | NURSING ---
NO for depakote 500mg PO bid for pain control, patient aware.
[2018-06-22] MEDS: Acetaminophen 500 MG Tablet 1000 MG PO ×4 (02:33→20:58)
[2018-06-22] MEDS: Ascorbic Acid 500 MG Tablet PO (06:47)
[2018-06-22] MEDS: Omega-3 Acid Ethyl Esters 1 GM Capsule PO (06:48)
[2018-06-22] MEDS: Enoxaparin 40 MG/0.4 ML Syringe SC (06:48)
[2018-06-22] MEDS: Senna/Docusate Sodium 1 Tablet 2 TABLET PO (06:48)
[2018-06-22] MEDS: Levothyroxine 25 MCG TABLET PO (06:48)
[2018-06-22] MEDS: Gabapentin 100 MG Capsule PO ×2 (06:55→18:49)
[2018-06-22] MEDS: Aspirin E.C. 81 MG Tablet PO (08:03)
[2018-06-22] MEDS: Divalproex Sodium 250 MG Tablet 500 MG PO ×2 (08:03→16:36)
[2018-06-22] MEDS: Iron Polysaccharide Complex 150 MG CAPSULE PO (08:03)
[2018-06-22 09:09] VITALS: PULSE 82; RESP 16; O2SAT 95
[2018-06-22] MEDS: 0.9% NaCl IVPB Med Flush (250 mL) 15 ML IV (09:30)
[2018-06-22] MEDS: Pantoprazole Sodium 40 MG Tablet PO (13:21)
[2018-06-22 16:00] VITALS: BP 129/82; PULSE 98; RESP 18; TEMP 36.8; O2SAT 94
[2018-06-23] MEDS: Acetaminophen 500 MG Tablet 1000 MG PO ×4 (03:08→21:41)
[2018-06-23 06:46] LABS: Erythrocyte Sedimentation Rate 41 mm/hr (0-30)
[2018-06-23] MEDS: Levothyroxine 25 MCG TABLET PO (07:00)
[2018-06-23] MEDS: Senna/Docusate Sodium 1 Tablet 2 TABLET PO (07:00)
[2018-06-23] MEDS: Ascorbic Acid 500 MG Tablet PO (07:00)
[2018-06-23] MEDS: Omega-3 Acid Ethyl Esters 1 GM Capsule PO (07:01)
[2018-06-23] MEDS: Enoxaparin 40 MG/0.4 ML Syringe SC (07:02)
[2018-06-23 07:07] LABS: ALB/GLOB Ratio 0.8 RATIO (0.9-2.4); AST(SGOT) 12 U/L (15-37); Alanine Aminotransfer ALT/SGPT 19 U/L (13-56); Albumin, Serum 2.9 g/dL (3.2-5.0); Alkaline Phosphatase 73 U/L (45-117); Anion Gap 8 (5-15); BUN 21 mg/dL (7-18); BUN/Creat Ratio 36.1 RATIO (10-20); Chloride 109 mmol/L (98-107); Creatinine, Serum 0.58 mg/dL (0.55-1.02); EST Glomerular Filtration Rate 110 mL/min (>60); Est Glom Filt Rate - Afr Amer 133 mL/min (>60); Estimated Creatinine Clearance 47.79 ml/min; Globulin 3.8 g/dL (2.2-4.2); Glucose 83 mg/dL (74-106); Potassium 4.2 mmol/L (3.5-5.1); Protein, Total 6.7 g/dL (6.4-8.2); Sodium Level 143 mmol/L (136-145)
[2018-06-23] MEDS: Aspirin E.C. 81 MG Tablet PO (08:47)
[2018-06-23] MEDS: Iron Polysaccharide Complex 150 MG CAPSULE PO (08:47)
[2018-06-23] MEDS: Divalproex Sodium 250 MG Tablet 500 MG PO ×2 (08:47→16:46)
[2018-06-23] MEDS: Gabapentin 100 MG Capsule PO (08:48)
[2018-06-23] MEDS: Pantoprazole Sodium 40 MG Tablet PO (13:19)
[2018-06-23] MEDS: Gabapentin 300 MG Capsule PO ×2 (14:41→21:05)
[2018-06-23 15:30] VITALS: BP 98/50; PULSE 81; RESP 18; TEMP 36.7; O2SAT 95
--- NOTE | 2018-06-23 16:07 | NURSING ---
Pt requesting medications for pain, Pt walked out to nurses station requesting tylenol, Pt just had 300 mg of neurotin. Pt stating her pain is zero and she just wants medication to make sure she doesnt start having pain.
[2018-06-23] MEDS: 0.9% Saline Lock 10 ML Syringe IV (21:00)
[2018-06-23 21:45] VITALS: PULSE 83; RESP 18; O2SAT 97
[2018-06-24] MEDS: Acetaminophen 500 MG Tablet 1000 MG PO ×4 (03:52→22:21)
[2018-06-24] MEDS: Ascorbic Acid 500 MG Tablet PO (06:51)
[2018-06-24] MEDS: Omega-3 Acid Ethyl Esters 1 GM Capsule PO (06:51)
[2018-06-24] MEDS: Levothyroxine 25 MCG TABLET PO (06:51)
[2018-06-24] MEDS: Senna/Docusate Sodium 1 Tablet 2 TABLET PO ×2 (06:52→18:10)
[2018-06-24] MEDS: Enoxaparin 40 MG/0.4 ML Syringe SC (06:52)
[2018-06-24] MEDS: Aspirin E.C. 81 MG Tablet PO (07:59)
[2018-06-24] MEDS: Divalproex Sodium 250 MG Tablet 500 MG PO ×2 (07:59→18:11)
[2018-06-24] MEDS: Iron Polysaccharide Complex 150 MG CAPSULE PO (08:00)
[2018-06-24 09:40] VITALS: PULSE 102; RESP 18; O2SAT 97
[2018-06-24] MEDS: 0.9% Saline Lock 10 ML Syringe IV ×3 (10:00→21:28)
[2018-06-24] MEDS: 0.9% NaCl IVPB Med Flush (250 mL) 15 ML IV (10:00)
--- NOTE | 2018-06-24 10:06 | NURSING ---
PICC FLUSHED,NO BLOOD RETURN. SITE A LITTLE RED. REPORTED TO MELODY FACLON WHO CHECKED SITE. PER MELODY FALCON OK TO RUN VANCOMYCIN.
[2018-06-24] MEDS: Pantoprazole Sodium 40 MG Tablet PO (13:09)
[2018-06-24 15:33] VITALS: BP 122/69; PULSE 80; RESP 16; TEMP 36; O2SAT 96
--- NOTE | 2018-06-24 15:42 | NURSING ---
wound photo: sacrum
--- NOTE | 2018-06-24 21:01 | PCM.TCUNOT ---
Subjective: Resident seen in room. She recently had increased neuropathic pain, and requested better pain control. Gabapentin, Depakote added to help her pain and it has been helpful, she is otherwise doing well, waiting to finish her IV antibiotics or sacral osteomyelitis. Vitals/I&O's: Vital Signs Temp Pulse Resp BP Pulse Ox 96.8 F L 80 16 122/69 H 96 06/24/18 15:33 06/24/18 15:33 06/24/18 15:33 06/24/18 15:33 06/24/18 15:33 Oxygen Delivery Method Room Air Weight: 92.703 kg Body Mass Index (BMI) 34.8 Intake and Output for Last 24 Hours 06/22/18 06/23/18 06/24/18 23:59 23:59 23:59 Intake Total 600 / 600 1240 / 1240 630 / 630 Balance 600 / 600 1240 / 1240 630 / 630 Past Medical History Past Medical History (Chronic Problems): Chronic Problems (Last Reviewed 05/16/18 @ 14:58 by Raúl Villareal DO) Hypertension (Chronic) Secondary pulmonary arterial hypertension (Chronic) Non-rheumatic tricuspid valve insufficiency (Chronic) Abnormal electrocardiogram (Chronic) Essential (primary) hypertension (Chronic) Non-healing surgical wound (Chronic) Pressure ulcer of right heel, stage 3 (Chronic) Pressure ulcer of left heel, stage 3 (Chronic) Morbid obesity with BMI of 40.0-44.9, adult (Chronic) GERD (gastroesophageal reflux disease) (Chronic) Depression (Chronic) Hypothyroidism (Chronic) Pressure ulcer of sacral region, stage 4 (Chronic) Neuropathy (Chronic) Medical History: Medical History (Last Reviewed 05/16/18 @ 14:58 by Raúl Villareal DO) Secondary pulmonary arterial hypertension (Chronic) I27.21 Non-rheumatic tricuspid valve insufficiency (Chronic) I36.1 Essential (primary) hypertension (Chronic) I10 Morbid obesity with BMI of 40.0-44.9, adult (Chronic) E66.01, Z68.41 GERD (gastroesophageal reflux disease) (Chronic) K21.9 Hypothyroidism (Chronic) E03.9 Atrial fibrillation with RVR (Resolved) I48.91 Abnormal Pap smear of cervix R87.619 Anemia D64.9 Back pain M54.9 GERD (gastroesophageal reflux disease) K21.9 Heart murmur R01.1 Sacral wound S31.000A Thyroid disorder E07.9 anixety and depression Hypertension I10 Allergies bee venom protein (honey bee) Allergy (Verified 04/19/18 13:56) Angioedema metaxalone [From Skelaxin] Allergy (Verified 04/19/18 13:56) Swelling Home Medications: Ambulatory Orders Medication Instructions Recorded Levothyroxine [Synthroid] 25 mcg PO DAILY 03/02/17 cholecalciferol (vitamin D3) 50,000 unit PO QMONTH 08/02/17 50,000 unit capsule Ascorbic Acid 500 mg PO DAILY 08/21/17 Potassium Chloride [K-Dur] 40 meq PO DAILY 12/26/17 Aspirin E.C. [Ecotrin] 81 mg PO DAILY 04/11/18 Omeprazole 40 mg PO 1400 04/11/18 green tea leaf extract capsule 1 cap PO DAILY cap 04/19/18 omega-3 fatty acids 1,000 mg 1,000 mg PO DAILY 04/19/18 capsule Acetaminophen [Tylenol Tablet] 650 mg PO Q6H PRN PRN tablet 05/17/18 0.9% Saline Lock 10 - 20 ml IV UD PRN syringe 06/01/18 Diazepam [Valium] 5 mg PO 4X/DAY PRN PRN #30 tab 06/01/18 Docusate Sodium [Colace] 100 mg PO BID 06/01/18 Heparin Pf Lock 10 units/ml 50 units IV UD PRN syringe 06/01/18 Iron Polysaccharide Complex 150 mg PO DAILYCM 06/01/18 [Ferrex 150] Nutritional Supplement [Teofilo - 1 packet PO BIDCM 06/01/18 ORANGE FLAVOR] Vancomycin IV 1,500 mg IV Q12H 06/01/18 Vancomycin IV 750 mg IV Q12H 06/01/18 Vancomycin IV Pharmacy to Dose 1 ea IV PRN PRN each 06/01/18 proMETHazine tablet [Phenergan 25 mg PO Q4H PRN PRN tablet 06/01/18 tablet] Surgical History: Surgical History (Last Reviewed 05/16/18 @ 14:58 by Raúl Villareal DO) H/O dilation and curettage Z98.890 History of LAVH Z98.890, Z90.710 S/P endometrial ablation Z98.890 S/P hysterectomy Z90.710 uterine ablation History of partial colectomy Z90.49 Surgical History: hysterectomy, - - She is a Ab0. Surgical debridement of her sacral pressure ulceration was performed on April 12, 2017, at [facility]. 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 Paternal Family History: Family History (Last Reviewed 05/16/18 @ 14:58 by Raúl Villareal DO) Father Myocardial infarction Cancer Brother Heart disease Mother COPD (chronic obstructive pulmonary disease) History Items: Unknown, - - Patient's father at age of 79 with history of lung cancer and myocardial infarction. Review of Systems Constitutional: Denies: Chills, Fever, Weight Change HEENT: Denies: Head Aches, Sinus Congestion, Sinus Drainage Cardiovascular: Denies: Chest Pain, Palpitations Respiratory: Denies: Cough, Shortness of breath at rest, Sputum production Gastrointestinal: Denies: Abdominal Pain, Nausea, Vomiting Genitourinary: Denies: Dysuria Musculoskeletal: Denies: Joint Pain, Joint Tenderness Skin: Denies: Rash, Wounds Neurological: Reports: - - Neuropathic pain.. Denies: Focal weakness, Numbness, Tingling Psychiatric: Denies: Anxiety, Depression, Homicidal Ideations, Suicidal Ideations Hematologic/ Lymphatic: Denies: Easy Bruising, Easy Bleeding - Physical Exam General: Alert, Oriented x3, Cooperative HEENT: Atraumatic, PERRLA, EOMI, Normocephalic Neck: Supple, No JVD, Negative Carotid Bruits Lungs: Clear to auscultation, Normal air movement Cardiovascular: Regular rate, No murmurs Abdomen: Bowel Sounds Present, Soft, Non Tender Extremities: No edema, Capillary Refill Less than 3 Seconds Skin: No rashes, Ulcer/ Wound - Stage 4 sacral pressure ulcer per wound team. Musculoskeletal: No Tenderness to Palpation of Joints or Extremities Neurological: Cranial nerves II-XII grossly intact Psych/Mental Status: Normal Affect, Appropriate Vital Signs Temp Pulse Resp BP Pulse Ox 96.8 F L 80 16 122/69 H 96 06/24/18 15:33 06/24/18 15:33 06/24/18 15:33 06/24/18 15:33 06/24/18 15:33 Oxygen Delivery Method Room Air Weight: 92.703 kg Body Mass Index (BMI) 34.8 Intake and Output for Last 24 Hours 06/22/18 06/23/18 06/24/18 23:59 23:59 23:59 Intake Total 600 / 600 1240 / 1240 630 / 630 Balance 600 / 600 1240 / 1240 630 / 630 Assessment/Plan All Active Problems (Last Reviewed 05/16/18 @ 14:58 by Raúl Villareal DO) Acute osteomyelitis of sacrum (Acute) Acute blood loss anemia (Acute) Surgical wound present (Acute) Preop cardiovascular exam (Acute) Colovaginal fistula (Acute) Failure to thrive (Acute) Clostridium difficile colitis (Acute) Septic shock (Resolved) VITO (acute kidney injury) (Resolved) Encephalopathy (Resolved) Atrial fibrillation with RVR (Resolved) Clostridium difficile infection (Resolved) Rhabdomyolysis (Resolved) 67 year old female with below past medical history significant for stage 4 sacral pressure ulcer, hospitalized for sacral osteomyelitis, 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 Debility - PT/OT. Pain - Tylenol 1000MG Q6H PRN mild pain, Oxycodone 10MG Q4H PRN severe pain. Bowel - Miralax 17GM daily, Senna/colace 2 tablets BID, Dulcolax 10MG PO daily PRN, Linzess 145MCG daily PRN. Pneumonia vaccination - Administer Prevnar 13 and/or Pneumovax 23 as necessary. DVT prophylaxis - Lovenox 40MG SC daily. Vitamin C deficiency - Vitamin C 500MG daily. CV prophylaxis - Aspirin 81MG daily. Anxiety - Diazepam 5MG 4x/day PRN, resident doing well with detention chronic use, GDR clinically contraindicated. Vitamin D deficiency - D2 50,000 units per month. Iron deficiency anemia - Ferrex 150MG daily. Hypothyroidism - Levothyroxine 25MCG daily. Stage 4 sacral pressure ulcer - Teofilo 1 packet BID, Wound VAC, Wound Team, Dr. Hansen. Hyperlipidemia - Lovaza 1GM daily. GERD - Pantoprazole 40MG daily. Hypokalemia - K-Dur 40MEQ daily. Nausea - Phenergan 25MG Q4H PRN> Sacral osteomyelitis - Vancomycin IV thru 07/10/2018. Neuropathic pain - Depakote 500MG BID, Gabapentin 300MG TID PRN. Muscle spasm - Flexeril 10MG TID PRN. Nausea - Phenergan 25MG Q4H PRN.
--- NOTE | 2018-06-24 21:06 | PN_ITS ---
Subjective: Resident seen in room. She recently had increased neuropathic pain, and requested better pain control. Gabapentin, Depakote added to help her pain and it has been helpful, she is otherwise doing well, waiting to finish her IV antibiotics or sacral osteomyelitis. Vitals/I&O's: Vital Signs Temp Pulse Resp BP Pulse Ox 96.8 F L 80 16 122/69 H 96 06/24/18 15:33 06/24/18 15:33 06/24/18 15:33 06/24/18 15:33 06/24/18 15:33 Oxygen Delivery Method Room Air Weight: 92.703 kg Body Mass Index (BMI) 34.8 Intake and Output for Last 24 Hours 06/22/18 06/23/18 06/24/18 23:59 23:59 23:59 Intake Total 600 / 600 1240 / 1240 630 / 630 Balance 600 / 600 1240 / 1240 630 / 630 Past Medical History Past Medical History (Chronic Problems): Chronic Problems (Last Reviewed 05/16/18 @ 14:58 by Raúl Villareal DO) Hypertension (Chronic) Secondary pulmonary arterial hypertension (Chronic) Non-rheumatic tricuspid valve insufficiency (Chronic) Abnormal electrocardiogram (Chronic) Essential (primary) hypertension (Chronic) Non-healing surgical wound (Chronic) Pressure ulcer of right heel, stage 3 (Chronic) Pressure ulcer of left heel, stage 3 (Chronic) Morbid obesity with BMI of 40.0-44.9, adult (Chronic) GERD (gastroesophageal reflux disease) (Chronic) Depression (Chronic) Hypothyroidism (Chronic) Pressure ulcer of sacral region, stage 4 (Chronic) Neuropathy (Chronic) Medical History: Medical History (Last Reviewed 05/16/18 @ 14:58 by Raúl Villareal DO) Secondary pulmonary arterial hypertension (Chronic) I27.21 Non-rheumatic tricuspid valve insufficiency (Chronic) I36.1 Essential (primary) hypertension (Chronic) I10 Morbid obesity with BMI of 40.0-44.9, adult (Chronic) E66.01, Z68.41 GERD (gastroesophageal reflux disease) (Chronic) K21.9 Hypothyroidism (Chronic) E03.9 Atrial fibrillation with RVR (Resolved) I48.91 Abnormal Pap smear of cervix R87.619 Anemia D64.9 Back pain M54.9 GERD (gastroesophageal reflux disease) K21.9 Heart murmur R01.1 Sacral wound S31.000A Thyroid disorder E07.9 anixety and depression Hypertension I10 Allergies bee venom protein (honey bee) Allergy (Verified 04/19/18 13:56) Angioedema metaxalone [From Skelaxin] Allergy (Verified 04/19/18 13:56) Swelling Home Medications: Ambulatory Orders Medication Instructions Recorded Levothyroxine [Synthroid] 25 mcg PO DAILY 03/02/17 cholecalciferol (vitamin D3) 50,000 unit PO QMONTH 08/02/17 50,000 unit capsule Ascorbic Acid 500 mg PO DAILY 08/21/17 Potassium Chloride [K-Dur] 40 meq PO DAILY 12/26/17 Aspirin E.C. [Ecotrin] 81 mg PO DAILY 04/11/18 Omeprazole 40 mg PO 1400 04/11/18 green tea leaf extract capsule 1 cap PO DAILY cap 04/19/18 omega-3 fatty acids 1,000 mg 1,000 mg PO DAILY 04/19/18 capsule Acetaminophen [Tylenol Tablet] 650 mg PO Q6H PRN PRN tablet 05/17/18 0.9% Saline Lock 10 - 20 ml IV UD PRN syringe 06/01/18 Diazepam [Valium] 5 mg PO 4X/DAY PRN PRN #30 tab 06/01/18 Docusate Sodium [Colace] 100 mg PO BID 06/01/18 Heparin Pf Lock 10 units/ml 50 units IV UD PRN syringe 06/01/18 Iron Polysaccharide Complex 150 mg PO DAILYCM 06/01/18 [Ferrex 150] Nutritional Supplement [Teofilo - 1 packet PO BIDCM 06/01/18 ORANGE FLAVOR] Vancomycin IV 1,500 mg IV Q12H 06/01/18 Vancomycin IV 750 mg IV Q12H 06/01/18 Vancomycin IV Pharmacy to Dose 1 ea IV PRN PRN each 06/01/18 proMETHazine tablet [Phenergan 25 mg PO Q4H PRN PRN tablet 06/01/18 tablet] Surgical History: Surgical History (Last Reviewed 05/16/18 @ 14:58 by Raúl Villareal DO) H/O dilation and curettage Z98.890 History of LAVH Z98.890, Z90.710 S/P endometrial ablation Z98.890 S/P hysterectomy Z90.710 uterine ablation History of partial colectomy Z90.49 Surgical History: hysterectomy, - - She is a Ab0. Surgical debridement of her sacral pressure ulceration was performed on April 12, 2017, at [facility]. 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 Paternal Family History: Family History (Last Reviewed 05/16/18 @ 14:58 by Raúl Villareal DO) Father Myocardial infarction Cancer Brother Heart disease Mother COPD (chronic obstructive pulmonary disease) History Items: Unknown, - - Patient's father at age of 79 with history of lung cancer and myocardial infarction. Review of Systems Constitutional: Denies: Chills, Fever, Weight Change HEENT: Denies: Head Aches, Sinus Congestion, Sinus Drainage Cardiovascular: Denies: Chest Pain, Palpitations Respiratory: Denies: Cough, Shortness of breath at rest, Sputum production Gastrointestinal: Denies: Abdominal Pain, Nausea, Vomiting Genitourinary: Denies: Dysuria Musculoskeletal: Denies: Joint Pain, Joint Tenderness Skin: Denies: Rash, Wounds Neurological: Reports: - - Neuropathic pain.. Denies: Focal weakness, Numbness, Tingling Psychiatric: Denies: Anxiety, Depression, Homicidal Ideations, Suicidal Ideations Hematologic/ Lymphatic: Denies: Easy Bruising, Easy Bleeding - Physical Exam General: Alert, Oriented x3, Cooperative HEENT: Atraumatic, PERRLA, EOMI, Normocephalic Neck: Supple, No JVD, Negative Carotid Bruits Lungs: Clear to auscultation, Normal air movement Cardiovascular: Regular rate, No murmurs Abdomen: Bowel Sounds Present, Soft, Non Tender Extremities: No edema, Capillary Refill Less than 3 Seconds Skin: No rashes, Ulcer/ Wound - Stage 4 sacral pressure ulcer per wound team. Musculoskeletal: No Tenderness to Palpation of Joints or Extremities Neurological: Cranial nerves II-XII grossly intact Psych/Mental Status: Normal Affect, Appropriate Vital Signs Temp Pulse Resp BP Pulse Ox 96.8 F L 80 16 122/69 H 96 06/24/18 15:33 06/24/18 15:33 06/24/18 15:33 06/24/18 15:33 06/24/18 15:33 Oxygen Delivery Method Room Air Weight: 92.703 kg Body Mass Index (BMI) 34.8 Intake and Output for Last 24 Hours 06/22/18 06/23/18 06/24/18 23:59 23:59 23:59 Intake Total 600 / 600 1240 / 1240 630 / 630 Balance 600 / 600 1240 / 1240 630 / 630 Assessment/Plan All Active Problems (Last Reviewed 05/16/18 @ 14:58 by Raúl Villareal DO) Acute osteomyelitis of sacrum (Acute) Acute blood loss anemia (Acute) Surgical wound present (Acute) Preop cardiovascular exam (Acute) Colovaginal fistula (Acute) Failure to thrive (Acute) Clostridium difficile colitis (Acute) Septic shock (Resolved) VITO (acute kidney injury) (Resolved) Encephalopathy (Resolved) Atrial fibrillation with RVR (Resolved) Clostridium difficile infection (Resolved) Rhabdomyolysis (Resolved) 67 year old female with below past medical history significant for stage 4 sacral pressure ulcer, hospitalized for sacral osteomyelitis, requiring long term care phlebotomist intravenous antibiotics, admitted to TCU with debility, here for rehabilitation, strengthening, wound care, intravenous antibiotics prior to discharge home. * Debility - PT/OT. * Pain - Tylenol 1000MG Q6H PRN mild pain, Oxycodone 10MG Q4H PRN severe pain. * Bowel - Miralax 17GM daily, Senna/colace 2 tablets BID, Dulcolax 10MG PO daily PRN, Linzess 145MCG daily PRN. * Pneumonia vaccination - Administer Prevnar 13 and/or Pneumovax 23 as necessary. * DVT prophylaxis - Lovenox 40MG SC daily. * Vitamin C deficiency - Vitamin C 500MG daily. * CV prophylaxis - Aspirin 81MG daily. * Anxiety - Diazepam 5MG 4x/day PRN, resident doing well with penitentiary chronic use, GDR clinically contraindicated. * Vitamin D deficiency - D2 50,000 units per month. * Iron deficiency anemia - Ferrex 150MG daily. * Hypothyroidism - Levothyroxine 25MCG daily. * Stage 4 sacral pressure ulcer - Teofilo 1 packet BID, Wound VAC, Wound Team, Dr. Hansen. * Hyperlipidemia - Lovaza 1GM daily. * GERD - Pantoprazole 40MG daily. * Hypokalemia - K-Dur 40MEQ daily. * Nausea - Phenergan 25MG Q4H PRN> * Sacral osteomyelitis - Vancomycin IV thru 07/10/2018. * Neuropathic pain - Depakote 500MG BID, Gabapentin 300MG TID PRN. * Muscle spasm - Flexeril 10MG TID PRN. * Nausea - Phenergan 25MG Q4H PRN.
[2018-06-24] MEDS: Gabapentin 300 MG Capsule PO (21:28)
[2018-06-25] MEDS: Acetaminophen 500 MG Tablet 1000 MG PO ×4 (04:38→22:53)
[2018-06-25] MEDS: Levothyroxine 25 MCG TABLET PO (04:41)
[2018-06-25] MEDS: Senna/Docusate Sodium 1 Tablet 2 TABLET PO ×2 (04:42→16:51)
[2018-06-25] MEDS: Ascorbic Acid 500 MG Tablet PO (04:43)
[2018-06-25] MEDS: Omega-3 Acid Ethyl Esters 1 GM Capsule PO (04:43)
[2018-06-25] MEDS: Enoxaparin 40 MG/0.4 ML Syringe SC (04:43)
[2018-06-25] MEDS: Divalproex Sodium 250 MG Tablet 500 MG PO ×2 (08:29→16:52)
[2018-06-25] MEDS: Aspirin E.C. 81 MG Tablet PO (08:29)
[2018-06-25] MEDS: Iron Polysaccharide Complex 150 MG CAPSULE PO (08:30)
[2018-06-25] MEDS: 0.9% NaCl IVPB Med Flush (250 mL) 15 ML IV (10:12)
[2018-06-25] MEDS: 0.9% Saline Lock 10 ML Syringe IV ×2 (10:12→21:41)
[2018-06-25 10:15] VITALS: PULSE 97; RESP 18; O2SAT 96
[2018-06-25] MEDS: Gabapentin 300 MG Capsule PO ×2 (10:20→21:06)
--- NOTE | 2018-06-25 10:22 | NURSING ---
Addendum entered by Cece Bates 06/26/18 06:37: PICC line last evening noted to be able to flush, however with no blood return noted. Heparin was put in line yesterday afternoon. Will update Dr. Sanchez on this. Original Note: PICC FLUSHED,NO BLOOD RETURN. LITTLE REDNESS TO SITE. NO COMPLAINTS OR CONCERNS AT THIS TIME. VANCOMYCIN RUNNING. REPORTED TO MELODY GONGORA
[2018-06-25] MEDS: Pantoprazole Sodium 40 MG Tablet PO (13:24)
[2018-06-25 16:00] VITALS: BP 111/63; PULSE 85; RESP 18; TEMP 36.8; O2SAT 95
[2018-06-26] MEDS: Omega-3 Acid Ethyl Esters 1 GM Capsule PO (04:57)
[2018-06-26] MEDS: Enoxaparin 40 MG/0.4 ML Syringe SC (04:57)
[2018-06-26] MEDS: Ascorbic Acid 500 MG Tablet PO (04:58)
[2018-06-26] MEDS: Levothyroxine 25 MCG TABLET PO (04:58)
[2018-06-26] MEDS: Acetaminophen 500 MG Tablet 1000 MG PO ×4 (04:58→23:09)
[2018-06-26] MEDS: Aspirin E.C. 81 MG Tablet PO (08:06)
[2018-06-26] MEDS: Divalproex Sodium 250 MG Tablet 500 MG PO ×2 (08:06→17:07)
[2018-06-26] MEDS: Iron Polysaccharide Complex 150 MG CAPSULE PO (08:06)
--- NOTE | 2018-06-26 08:38 | NURSING ---
Dr. Sanchez notified of no blood return to [facility]. NO to d/c current PICC and have new PICC inserted.
[2018-06-26] MEDS: 0.9% NaCl IVPB Med Flush (250 mL) 15 ML IV (09:53)
[2018-06-26] MEDS: 0.9% Saline Lock 10 ML Syringe IV (09:53)
[2018-06-26 10:00] VITALS: PULSE 82; O2SAT 94
--- NOTE | 2018-06-26 10:50 | NURSING ---
manager data warehouse called and notified of new order to replace PICC line.
[2018-06-26] MEDS: Gabapentin 300 MG Capsule PO ×2 (12:38→22:05)
[2018-06-26] MEDS: Pantoprazole Sodium 40 MG Tablet PO (13:12)
[2018-06-26] MEDS: Senna/Docusate Sodium 1 Tablet 2 TABLET PO (17:07)
--- NOTE | 2018-06-27 00:30 | NURSING ---
In to remove patient's PICC line in patient's Left Upper Arm at this time per d/c orders. Patient refusing to have the PICC removed stating I just want to sleep. This nurse told patient that she will be in during morning med pass. Patient refusing this as well stating that she doesn't don't want it until later on in the day. Will update day shift.
[2018-06-27] MEDS: Gabapentin 300 MG Capsule PO ×3 (03:16→22:15)
[2018-06-27] MEDS: Levothyroxine 25 MCG TABLET PO (05:17)
[2018-06-27] MEDS: Ascorbic Acid 500 MG Tablet PO (05:17)
[2018-06-27] MEDS: Enoxaparin 40 MG/0.4 ML Syringe SC (05:17)
[2018-06-27] MEDS: Omega-3 Acid Ethyl Esters 1 GM Capsule PO (05:17)
[2018-06-27] MEDS: Acetaminophen 500 MG Tablet 1000 MG PO ×4 (05:18→23:47)
[2018-06-27] MEDS: Aspirin E.C. 81 MG Tablet PO (08:14)
[2018-06-27] MEDS: Divalproex Sodium 250 MG Tablet 500 MG PO ×2 (08:14→17:46)
[2018-06-27] MEDS: Iron Polysaccharide Complex 150 MG CAPSULE PO (08:14)
[2018-06-27 10:00] VITALS: PULSE 82; RESP 16; O2SAT 96
[2018-06-27] MEDS: 0.9% NaCl IVPB Med Flush (250 mL) 15 ML IV (10:08)
[2018-06-27] MEDS: 0.9% Saline Lock 10 ML Syringe IV ×2 (10:08→22:18)
--- NOTE | 2018-06-27 11:29 | PCM.RX.CS ---
Consult Pharmacy has been consulted to manage selected antiobiotic: Vancomycin Type of Consult: Follow-up Suspected Infection: Skin/Soft tissue Labs: Sodium 143 mmol/L (136-145) 06/23/18 06:10 Potassium 4.2 mmol/L (3.5-5.1) 06/23/18 06:10 Chloride 109 mmol/L (98-107) H 06/23/18 06:10 Carbon Dioxide 26.0 mmol/L (21.0-32.0) 06/23/18 06:10 Anion Gap 8 (5-15) 06/23/18 06:10 BUN 21 mg/dL (7-18) H 06/23/18 06:10 Creatinine 0.58 mg/dL (0.55-1.02) 06/23/18 06:10 Est GFR (MDRD) Af Amer 133 mL/min (>60) 06/23/18 06:10 Est GFR (MDRD) Non-Af 110 mL/min (>60) 06/23/18 06:10 BUN/Creatinine Ratio 36.1 RATIO (10-20) H 06/23/18 06:10 Glucose 83 mg/dL (74-106) 06/23/18 06:10 Vancomycin Trough 19.0 ug/mL (5.0-15.0) H 06/27/18 09:30 Random Vancomycin 11.3 ug/mL (0.0-15.0) 06/05/18 07:10 Goal Trough: 15-20 mcg/mL Pharmacy Plan for Drug Dosing: The patient had a trough drawn which resulted in a value of 19 (drawn 12hrs from last administered dose). Will continue current regimen and recheck a trough in 1 week. Stopdate still 07/10/18 per orders. PLAN/RECOMMENDATIONS 1. Continue vancomycin 1750mg IV Q12hrs, stopdate 07/10/18 2. Trough scheduled 07/04/18 @0930 to reassess 3. Pharmacy Service will continue to monitor and adjust dosing as required.
--- NOTE | 2018-06-27 13:22 | MDS.RN ---
Pain interview for breann 06/29/18 completed.
--- NOTE | 2018-06-27 13:24 | NURSING ---
Removed pt picc from LT arm, tip intact at 49cm. Pt tolerated well. pt resting on side in bed for 30 minutes per protcol.
[2018-06-27] MEDS: Pantoprazole Sodium 40 MG Tablet PO (13:26)
[2018-06-27 15:42] VITALS: BP 119/58; PULSE 85; RESP 16; TEMP 37; O2SAT 96
[2018-06-27] MEDS: Senna/Docusate Sodium 1 Tablet 2 TABLET PO (17:47)
[2018-06-28] MEDS: Senna/Docusate Sodium 1 Tablet 2 TABLET PO ×2 (05:55→17:04)
[2018-06-28] MEDS: Omega-3 Acid Ethyl Esters 1 GM Capsule PO (05:55)
[2018-06-28] MEDS: Acetaminophen 500 MG Tablet 1000 MG PO ×3 (05:55→18:45)
[2018-06-28] MEDS: Levothyroxine 25 MCG TABLET PO (05:55)
[2018-06-28] MEDS: Enoxaparin 40 MG/0.4 ML Syringe SC (05:56)
[2018-06-28] MEDS: Ascorbic Acid 500 MG Tablet PO (06:00)
[2018-06-28] MEDS: Aspirin E.C. 81 MG Tablet PO (08:07)
[2018-06-28] MEDS: Divalproex Sodium 250 MG Tablet 500 MG PO ×2 (08:07→17:04)
[2018-06-28] MEDS: Iron Polysaccharide Complex 150 MG CAPSULE PO (08:07)
[2018-06-28 10:00] VITALS: PULSE 78; RESP 16; O2SAT 95
[2018-06-28] MEDS: 0.9% NaCl PICC Flush IV (10:12)
[2018-06-28] MEDS: Gabapentin 300 MG Capsule PO (12:38)
--- NOTE | 2018-06-28 13:17 | CASEMGMT ---
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 JOSE ALEJANDRO Bell Original Note: Brief interview for mental status (BIMS) and mood (PHQ-9) completed on this day. BIMS score . PHQ-9 score 01/28. [facility] social work student
[2018-06-28] MEDS: Pantoprazole Sodium 40 MG Tablet PO (13:31)
[2018-06-28 15:25] VITALS: BP 133/76; PULSE 87; RESP 16; TEMP 36.1; O2SAT 96
[2018-06-28] MEDS: 0.9% Saline Lock 10 ML Syringe IV (21:59)
[2018-06-28] MEDS: 0.9% NaCl IVPB Med Flush (250 mL) 15 ML IV (22:06)
[2018-06-29] MEDS: Acetaminophen 500 MG Tablet 1000 MG PO ×4 (00:55→23:03)
[2018-06-29] MEDS: Gabapentin 300 MG Capsule PO ×2 (05:19→12:21)
[2018-06-29] MEDS: Levothyroxine 25 MCG TABLET PO (05:20)
[2018-06-29] MEDS: Omega-3 Acid Ethyl Esters 1 GM Capsule PO (05:20)
[2018-06-29] MEDS: Senna/Docusate Sodium 1 Tablet 2 TABLET PO ×2 (05:21→17:35)
[2018-06-29] MEDS: Ascorbic Acid 500 MG Tablet PO (05:21)
[2018-06-29] MEDS: Enoxaparin 40 MG/0.4 ML Syringe SC (05:22)
[2018-06-29] MEDS: Iron Polysaccharide Complex 150 MG CAPSULE PO (08:10)
[2018-06-29] MEDS: Aspirin E.C. 81 MG Tablet PO (08:10)
[2018-06-29] MEDS: Divalproex Sodium 250 MG Tablet 500 MG PO ×2 (08:10→17:35)
[2018-06-29] MEDS: 0.9% Saline Lock 10 ML Syringe IV (10:11)
--- NOTE | 2018-06-29 10:20 | NURSING ---
FLUSHED PT PICC,GOOD BLOOD RETURN. NO S/S OF INFECTION. NO COMPLANTS OR CONCERNS AT THIS TIME. VANCOMYCIN INFUSING.
[2018-06-29] MEDS: diazePAM 5 MG Tablet PO (13:10)
[2018-06-29] MEDS: Pantoprazole Sodium 40 MG Tablet PO (13:11)
[2018-06-29 15:28] VITALS: BP 134/83; PULSE 99; RESP 18; TEMP 36.8; O2SAT 92
[2018-06-29] MEDS: 0.9% NaCl IVPB Med Flush (250 mL) 15 ML IV (21:34)
[2018-06-30] MEDS: Gabapentin 300 MG Capsule PO ×2 (02:21→16:17)
[2018-06-30] MEDS: Acetaminophen 500 MG Tablet 1000 MG PO ×3 (05:21→18:25)
[2018-06-30] MEDS: Enoxaparin 40 MG/0.4 ML Syringe SC (05:22)
[2018-06-30] MEDS: Senna/Docusate Sodium 1 Tablet 2 TABLET PO (05:23)
[2018-06-30] MEDS: Levothyroxine 25 MCG TABLET PO (05:24)
[2018-06-30] MEDS: Omega-3 Acid Ethyl Esters 1 GM Capsule PO (05:24)
[2018-06-30] MEDS: Ascorbic Acid 500 MG Tablet PO (05:24)
[2018-06-30 06:38] LABS: Erythrocyte Sedimentation Rate 30 mm/hr (0-30)
[2018-06-30 06:42] LABS: ALB/GLOB Ratio 0.8 RATIO (0.9-2.4); AST(SGOT) 16 U/L (15-37); Alanine Aminotransfer ALT/SGPT 19 U/L (13-56); Alkaline Phosphatase 69 U/L (45-117); Anion Gap 8 (5-15); BUN 19 mg/dL (7-18); BUN/Creat Ratio 32.4 RATIO (10-20); CRP 9.09 mg/L (0.0-3.0); Calcium,Total 8.7 mg/dL (8.5-10.1); Chloride 108 mmol/L (98-107); Creatinine, Serum 0.59 mg/dL (0.55-1.02); EST Glomerular Filtration Rate 109 mL/min (>60); Est Glom Filt Rate - Afr Amer 132 mL/min (>60); Estimated Creatinine Clearance 47.14 ml/min; Globulin 3.7 g/dL (2.2-4.2); Glucose 80 mg/dL (74-106); Potassium 4.3 mmol/L (3.5-5.1); Protein, Total 6.7 g/dL (6.4-8.2); Sodium Level 144 mmol/L (136-145)
[2018-06-30] MEDS: Divalproex Sodium 250 MG Tablet 500 MG PO ×2 (07:41→16:52)
[2018-06-30] MEDS: Iron Polysaccharide Complex 150 MG CAPSULE PO (07:41)
[2018-06-30] MEDS: Aspirin E.C. 81 MG Tablet PO (07:41)
[2018-06-30 09:15] VITALS: PULSE 87; RESP 18; O2SAT 95
[2018-06-30] MEDS: 0.9% Saline Lock 10 ML Syringe IV ×2 (09:15→21:44)
[2018-06-30] MEDS: Pantoprazole Sodium 40 MG Tablet PO (13:40)
[2018-06-30 15:27] VITALS: BP 117/67; PULSE 88; RESP 18; TEMP 36.1; O2SAT 94
[2018-06-30] MEDS: 0.9% NaCl IVPB Med Flush (250 mL) 15 ML IV (21:37)
[2018-07-01] MEDS: Acetaminophen 500 MG Tablet 1000 MG PO ×4 (00:32→21:12)
--- NOTE | 2018-07-01 03:04 | NURSING ---
Pt states she would like to speak with therapy about not relaying on walker when up. States she feeling gait isn't the best without walker.
[2018-07-01] MEDS: oxyCODONE 5 MG Tablet 10 MG PO (04:03)
[2018-07-01] MEDS: Senna/Docusate Sodium 1 Tablet 2 TABLET PO ×2 (04:04→18:09)
[2018-07-01] MEDS: Levothyroxine 25 MCG TABLET PO (04:05)
[2018-07-01] MEDS: Omega-3 Acid Ethyl Esters 1 GM Capsule PO (04:05)
[2018-07-01] MEDS: Ascorbic Acid 500 MG Tablet PO (04:05)
[2018-07-01] MEDS: Enoxaparin 40 MG/0.4 ML Syringe SC (04:06)
[2018-07-01] MEDS: Iron Polysaccharide Complex 150 MG CAPSULE PO (08:12)
[2018-07-01] MEDS: Aspirin E.C. 81 MG Tablet PO (08:12)
[2018-07-01] MEDS: Divalproex Sodium 250 MG Tablet 500 MG PO ×2 (08:12→18:09)
--- NOTE | 2018-07-01 09:01 | NURSING ---
PT requesting that OXYIR be changed to 5-10mg PRN, pt has fear of addiction. Dr Sanchez updated, order changed per pt request.
[2018-07-01 10:00] VITALS: PULSE 88; RESP 18; O2SAT 95
[2018-07-01] MEDS: oxyCODONE 5 MG Tablet PO (12:41)
[2018-07-01] MEDS: Pantoprazole Sodium 40 MG Tablet PO (13:07)
--- NOTE | 2018-07-01 13:30 | PCM.PN.ID ---
Subjective: Feeling well, no fever, no n/v/d, wound vac in place - Physical Exam General: Alert, Cooperative, No apparent distress Lungs: Clear to auscultation, Normal air movement Cardiovascular: Regular rate, Regular Rhythm Abdomen: Soft, Non Tender, Non-Distended Skin: Ulcer/ Wound - wound vac over sacrum Vital Signs Temp Pulse Resp BP Pulse Ox 96.9 F L 88 18 117/67 94 06/30/18 15:27 06/30/18 15:27 06/30/18 15:27 06/30/18 15:27 06/30/18 15:27 Oxygen Delivery Method Room Air Weight: 94.092 kg Body Mass Index (BMI) 34.8 Intake and Output for Last 24 Hours 06/29/18 06/30/18 07/01/18 23:59 23:59 23:59 Intake Total 1080 / 1080 870 / 870 360 / 360 Balance 1080 / 1080 870 / 870 360 / 360 Medical Necessity - Tobacco Use Smoking Status: Former smoker Route of nutrition/ use of supplements: [] Nutritional Intake: [] IV Site: [] Grewal Catheter: [] - Assessment/Plan Antibiotics: [] Assessment/Plan: [] Sacral osteo with surg cx (+) for corynebacterium and MSSE, recent cx also with MSSA seen. Continue iv vanc for 6 week course. Trough at goal. Dr. Hansen following. ESR improving. Stop date planned for 07/10/18. Will follow
--- NOTE | 2018-07-01 14:45 | NURSING ---
pt requesting another bed, current bed causing her back pain/malalignment of spine. pt given another bed that she had tested. Pt happy about trying another bed to prevent back pain.
--- NOTE | 2018-07-01 14:48 | NURSING ---
WOUND PHOTO: SACRUM
[2018-07-01 15:49] VITALS: BP 138/80; PULSE 103; RESP 16; TEMP 36.6; O2SAT 93
[2018-07-01] MEDS: 0.9% Saline Lock 10 ML Syringe IV (21:17)
[2018-07-02] MEDS: oxyCODONE 5 MG Tablet PO (02:10)
[2018-07-02] MEDS: Enoxaparin 40 MG/0.4 ML Syringe SC (07:03)
[2018-07-02] MEDS: Acetaminophen 500 MG Tablet 1000 MG PO ×3 (07:03→19:12)
[2018-07-02] MEDS: Levothyroxine 25 MCG TABLET PO (07:04)
[2018-07-02] MEDS: Ascorbic Acid 500 MG Tablet PO (07:04)
[2018-07-02] MEDS: Omega-3 Acid Ethyl Esters 1 GM Capsule PO (07:04)
[2018-07-02] MEDS: Senna/Docusate Sodium 1 Tablet 2 TABLET PO ×2 (07:05→17:01)
[2018-07-02] MEDS: Aspirin E.C. 81 MG Tablet PO (08:45)
[2018-07-02] MEDS: Iron Polysaccharide Complex 150 MG CAPSULE PO (08:45)
[2018-07-02] MEDS: Divalproex Sodium 250 MG Tablet 500 MG PO ×2 (08:46→17:01)
[2018-07-02 09:45] VITALS: PULSE 89; RESP 18; O2SAT 96
[2018-07-02] MEDS: 0.9% Saline Lock 10 ML Syringe IV ×2 (09:56→22:07)
--- NOTE | 2018-07-02 10:02 | NURSING ---
PT PICC FLUSHED,GOOD BLOOD RETURN. NO S/S OF INFECTION. NO COMPLAINTS OR CONCERNS AT THIS TIME. VANCOMYCIN RUNNING.
[2018-07-02] MEDS: Pantoprazole Sodium 40 MG Tablet PO (13:07)
[2018-07-02 15:38] VITALS: BP 153/74; PULSE 93; RESP 16; TEMP 37.3; O2SAT 96
[2018-07-02] MEDS: Gabapentin 300 MG Capsule PO (17:01)
[2018-07-03] MEDS: Acetaminophen 500 MG Tablet 1000 MG PO ×4 (01:19→21:16)
[2018-07-03] MEDS: Ascorbic Acid 500 MG Tablet PO (05:33)
[2018-07-03] MEDS: Senna/Docusate Sodium 1 Tablet 2 TABLET PO ×2 (05:33→17:10)
[2018-07-03] MEDS: Levothyroxine 25 MCG TABLET PO (05:33)
[2018-07-03] MEDS: Enoxaparin 40 MG/0.4 ML Syringe SC (05:33)
[2018-07-03] MEDS: Omega-3 Acid Ethyl Esters 1 GM Capsule PO (05:33)
[2018-07-03] MEDS: oxyCODONE 5 MG Tablet PO (05:35)
[2018-07-03] MEDS: Iron Polysaccharide Complex 150 MG CAPSULE PO (09:12)
[2018-07-03] MEDS: Divalproex Sodium 250 MG Tablet 500 MG PO ×2 (09:12→17:16)
[2018-07-03] MEDS: Aspirin E.C. 81 MG Tablet PO (09:12)
[2018-07-03] MEDS: Pantoprazole Sodium 40 MG Tablet PO (13:21)
[2018-07-03 16:00] VITALS: BP 140/84; PULSE 91; RESP 16; TEMP 36; O2SAT 96
[2018-07-03 20:07] VITALS: PULSE 96
[2018-07-04] MEDS: Gabapentin 300 MG Capsule PO ×2 (00:13→21:18)
[2018-07-04] MEDS: Acetaminophen 500 MG Tablet 1000 MG PO ×4 (03:16→23:04)
[2018-07-04] MEDS: diazePAM 5 MG Tablet PO (06:12)
[2018-07-04] MEDS: Senna/Docusate Sodium 1 Tablet 2 TABLET PO ×2 (06:13→16:44)
[2018-07-04] MEDS: Enoxaparin 40 MG/0.4 ML Syringe SC (06:13)
[2018-07-04] MEDS: Levothyroxine 25 MCG TABLET PO (06:13)
[2018-07-04] MEDS: Omega-3 Acid Ethyl Esters 1 GM Capsule PO (06:13)
[2018-07-04] MEDS: Ascorbic Acid 500 MG Tablet PO (06:13)
[2018-07-04] MEDS: Aspirin E.C. 81 MG Tablet PO (08:35)
[2018-07-04] MEDS: Divalproex Sodium 250 MG Tablet 500 MG PO ×2 (08:35→16:45)
[2018-07-04] MEDS: Iron Polysaccharide Complex 150 MG CAPSULE PO (08:35)
[2018-07-04] MEDS: Linacolotide 145 MCG CAPSULE PO (10:19)
[2018-07-04] MEDS: 0.9% NaCl PICC Flush IV (10:20)
--- NOTE | 2018-07-04 11:15 | PCM.RX.CS ---
Consult Type of Consult: Follow-up Suspected Infection: Osteomyelitis Prior Doses of Antibiotics Received/Current Regimen: Medications Vancomycin HCl 1,750 mg/ (Sodium Chloride) 535 mls @ 250 mls/hr IV Q12H ELOISA Stop: 07/10/18 10:00 Last Admin: 07/04/18 10:18 Dose: 250 mls/hr Labs: Sodium 144 mmol/L (136-145) 06/30/18 06:10 Potassium 4.3 mmol/L (3.5-5.1) 06/30/18 06:10 Chloride 108 mmol/L (98-107) H 06/30/18 06:10 Carbon Dioxide 28.0 mmol/L (21.0-32.0) 06/30/18 06:10 Anion Gap 8 (5-15) 06/30/18 06:10 BUN 19 mg/dL (7-18) H 06/30/18 06:10 Creatinine 0.59 mg/dL (0.55-1.02) 06/30/18 06:10 Est GFR (MDRD) Af Amer 132 mL/min (>60) 06/30/18 06:10 Est GFR (MDRD) Non-Af 109 mL/min (>60) 06/30/18 06:10 BUN/Creatinine Ratio 32.4 RATIO (10-20) H 06/30/18 06:10 Glucose 80 mg/dL (74-106) 06/30/18 06:10 Vancomycin Trough 18.0 ug/mL (5.0-15.0) H 07/04/18 09:10 Random Vancomycin 11.3 ug/mL (0.0-15.0) 06/05/18 07:10 Weight used for dosin kg Goal Trough: 15-20 mcg/mL Pharmacy Plan for Drug Dosing: Trough within goal range. Continue vancomycin as ordered and no more trough checks prior to stop date. Pharmacy Service will continue to monitor and adjust dosing as required.
[2018-07-04] MEDS: Pantoprazole Sodium 40 MG Tablet PO (14:01)
[2018-07-04 16:00] VITALS: BP 115/65; PULSE 101; RESP 18; TEMP 36.8; O2SAT 94
[2018-07-04] MEDS: 0.9% NaCl IVPB Med Flush (250 mL) 15 ML IV (21:16)
[2018-07-04] MEDS: 0.9% Saline Lock 10 ML Syringe IV (21:21)
[2018-07-05] MEDS: Acetaminophen 500 MG Tablet 1000 MG PO ×3 (05:20→17:59)
[2018-07-05] MEDS: Senna/Docusate Sodium 1 Tablet 2 TABLET PO ×2 (05:22→17:00)
[2018-07-05] MEDS: Ascorbic Acid 500 MG Tablet PO (05:22)
[2018-07-05] MEDS: Levothyroxine 25 MCG TABLET PO (05:22)
[2018-07-05] MEDS: Omega-3 Acid Ethyl Esters 1 GM Capsule PO (05:22)
[2018-07-05] MEDS: Enoxaparin 40 MG/0.4 ML Syringe SC (05:24)
[2018-07-05] MEDS: Aspirin E.C. 81 MG Tablet PO (08:55)
[2018-07-05] MEDS: Divalproex Sodium 250 MG Tablet 500 MG PO ×2 (08:56→17:00)
[2018-07-05] MEDS: Iron Polysaccharide Complex 150 MG CAPSULE PO (08:56)
[2018-07-05] MEDS: Gabapentin 300 MG Capsule PO (08:59)
[2018-07-05] MEDS: 0.9% Saline Lock 10 ML Syringe IV ×2 (09:45→21:38)
--- NOTE | 2018-07-05 09:46 | NURSING ---
PICC FLUSHED,GOOD BLOOD RETURN. NO S/S OF INFECTION. NO COMPLANTS OR CONCERNS AT THIS TIME.
[2018-07-05] MEDS: Pantoprazole Sodium 40 MG Tablet PO (13:37)
--- NOTE | 2018-07-05 14:57 | CASEMGMT ---
Social Work Spoke with resident in room. This social professionals communicating that discharge date has been set for 07/11/18. Resident is agreeable to discharge date and plans to discharge to home alone. Resident to have continued half-way for wound care/management. Resident to have wound van set up through [facility], wound nurse aware. Resident requesting to have home health nursing set up through [facility] [place]. Resident reporting to have all needed durable medical equipment already set up within the home. Support given. [facility]. This social professionals making referral for half-way. Will fax orders when obtained. Proposed discharge date: 07/11/18 PLAN: Discharge to home alone with home health care. Cr BLOUNT, LORI
[2018-07-05 15:50] VITALS: BP 125/77; PULSE 78; RESP 18; TEMP 36.9; O2SAT 91
[2018-07-05] MEDS: 0.9% NaCl IVPB Med Flush (250 mL) 15 ML IV (21:41)
[2018-07-05 22:51] VITALS: PULSE 80; RESP 16; O2SAT 95
[2018-07-06] MEDS: Acetaminophen 500 MG Tablet 1000 MG PO ×4 (00:04→18:32)
[2018-07-06] MEDS: Senna/Docusate Sodium 1 Tablet 2 TABLET PO ×2 (06:23→18:32)
[2018-07-06] MEDS: Levothyroxine 25 MCG TABLET PO (06:24)
[2018-07-06] MEDS: Omega-3 Acid Ethyl Esters 1 GM Capsule PO (06:24)
[2018-07-06] MEDS: Ascorbic Acid 500 MG Tablet PO (06:25)
[2018-07-06] MEDS: Enoxaparin 40 MG/0.4 ML Syringe SC (06:26)
[2018-07-06] MEDS: Iron Polysaccharide Complex 150 MG CAPSULE PO (08:11)
[2018-07-06] MEDS: Divalproex Sodium 250 MG Tablet 500 MG PO ×2 (08:11→18:32)
[2018-07-06] MEDS: Aspirin E.C. 81 MG Tablet PO (08:11)
[2018-07-06 10:00] VITALS: PULSE 81; O2SAT 97
[2018-07-06] MEDS: 0.9% NaCl PICC Flush IV (10:31)
[2018-07-06] MEDS: Gabapentin 300 MG Capsule PO (10:38)
[2018-07-06] MEDS: Pantoprazole Sodium 40 MG Tablet PO (15:50)
[2018-07-06 16:00] VITALS: BP 102/48; PULSE 78; RESP 16; TEMP 36.1; O2SAT 92
[2018-07-06] MEDS: diazePAM 5 MG Tablet PO (19:53)
[2018-07-07] MEDS: Acetaminophen 500 MG Tablet 1000 MG PO ×4 (00:46→18:56)
[2018-07-07] MEDS: Enoxaparin 40 MG/0.4 ML Syringe SC (06:07)
[2018-07-07] MEDS: Ascorbic Acid 500 MG Tablet PO (06:07)
[2018-07-07] MEDS: Senna/Docusate Sodium 1 Tablet 2 TABLET PO (06:07)
[2018-07-07] MEDS: Omega-3 Acid Ethyl Esters 1 GM Capsule PO (06:07)
[2018-07-07] MEDS: Levothyroxine 25 MCG TABLET PO (06:07)
[2018-07-07 07:21] LABS: Erythrocyte Sedimentation Rate 20 mm/hr (0-30)
[2018-07-07] MEDS: Divalproex Sodium 250 MG Tablet 500 MG PO ×2 (08:03→17:41)
[2018-07-07] MEDS: Iron Polysaccharide Complex 150 MG CAPSULE PO (08:03)
[2018-07-07] MEDS: Aspirin E.C. 81 MG Tablet PO (08:03)
[2018-07-07 08:43] LABS: ALB/GLOB Ratio 0.8 RATIO (0.9-2.4); AST(SGOT) 12 U/L (15-37); Alanine Aminotransfer ALT/SGPT 17 U/L (13-56); Alkaline Phosphatase 65 U/L (45-117); Anion Gap 8 (5-15); BUN 18 mg/dL (7-18); BUN/Creat Ratio 30.3 RATIO (10-20); Chloride 109 mmol/L (98-107); EST Glomerular Filtration Rate 107 mL/min (>60); Est Glom Filt Rate - Afr Amer 130 mL/min (>60); Estimated Creatinine Clearance 47.14 ml/min; Globulin 3.9 g/dL (2.2-4.2); Glucose 77 mg/dL (74-106); Protein, Total 6.9 g/dL (6.4-8.2); Sodium Level 144 mmol/L (136-145)
[2018-07-07 10:00] VITALS: O2SAT 95
[2018-07-07] MEDS: 0.9% Saline Lock 10 ML Syringe IV (10:17)
[2018-07-07] MEDS: Gabapentin 300 MG Capsule PO (10:46)
[2018-07-07] MEDS: Pantoprazole Sodium 40 MG Tablet PO (14:32)
[2018-07-07 15:47] VITALS: BP 99/54; PULSE 74; RESP 18; TEMP 36.6; O2SAT 95
[2018-07-07] MEDS: 0.9% NaCl PICC Flush IV (21:32)
[2018-07-08] MEDS: Acetaminophen 500 MG Tablet 1000 MG PO ×4 (00:58→21:08)
[2018-07-08] MEDS: Gabapentin 300 MG Capsule PO ×2 (05:58→16:46)
[2018-07-08] MEDS: Omega-3 Acid Ethyl Esters 1 GM Capsule PO (05:58)
[2018-07-08] MEDS: Ascorbic Acid 500 MG Tablet PO (05:59)
[2018-07-08] MEDS: Levothyroxine 25 MCG TABLET PO (05:59)
[2018-07-08] MEDS: Enoxaparin 40 MG/0.4 ML Syringe SC (05:59)
[2018-07-08] MEDS: Senna/Docusate Sodium 1 Tablet 2 TABLET PO (05:59)
[2018-07-08] MEDS: Aspirin E.C. 81 MG Tablet PO (07:09)
[2018-07-08] MEDS: Iron Polysaccharide Complex 150 MG CAPSULE PO (07:09)
[2018-07-08] MEDS: Divalproex Sodium 250 MG Tablet 500 MG PO ×2 (07:09→16:47)
--- NOTE | 2018-07-08 08:24 | DCINST_ITS ---
- Discharge Diagnoses Current Active Problems: Current Active and Chronic Problems (Last Reviewed 05/16/18 @ 14:58 by Raúl Villareal DO) Hypertension (Chronic) You will use the following diet at home:: No restrictions, Regular Your food should be the consistency of: Regular Your liquids should be the consistency of: Regular/Thin Discharge Activity: Return to Normal Activity, May Shower, Use Walker Weight Bearing Status: Weight bearing as tolerated Call your doctor if you observe: Fever of 101 or Higher, Inability to urinate, Inability to have a bowel movement, Chest pain, Uncontrolled pain Allergies/Adverse Reactions: Allergies bee venom protein (honey bee) Allergy (Verified 04/19/18 13:56) Angioedema metaxalone [From Skelaxin] Allergy (Verified 04/19/18 13:56) Swelling Medications to take at Discharge Levothyroxine [Synthroid] 25 mcg PO DAILY 03/02/17 cholecalciferol (vitamin D3) 50,000 unit capsule 50,000 unit PO QMONTH 08/02/17 Ascorbic Acid 500 mg PO DAILY 08/21/17 Potassium Chloride [K-Dur] 40 meq PO DAILY 12/26/17 Aspirin E.C. [Ecotrin] 81 mg PO DAILY 04/11/18 Omeprazole 40 mg PO 1400 04/11/18 omega-3 fatty acids 1,000 mg capsule 1,000 mg PO DAILY 04/19/18 Acetaminophen [Tylenol] 1,000 mg PO Q6H PRN tablet 07/08/18 Cyclobenzaprine [Flexeril] 10 mg PO TID PRN PRN #90 tablet 07/08/18 Diazepam [Valium] 5 mg PO 4X/DAY PRN PRN #30 tab 07/08/18 Divalproex Sodium [Depakote] 500 mg PO BIDCM #60 tablet 07/08/18 Gabapentin [Neurontin] 300 mg PO TID PRN PRN #90 capsule 07/08/18 Iron Polysaccharide Complex [Ferrex 150] 150 mg PO DAILYCM #30 capsule 07/08/18 Linacolotide [Linzess] 145 mcg PO DAILY PRN capsule 07/08/18 Nutritional Supplement [Teofilo - ORANGE FLAVOR] 1 packet PO BIDCM #60 packet 07/08/18 The following prescriptions were given: Cyclobenzaprine [Flexeril] 10 mg PO TID PRN PRN #90 tablet PRN Reason: muscle spasms Diazepam [Valium] 5 mg PO 4X/DAY PRN PRN #30 tab PRN Reason: Spasms Gabapentin [Neurontin] 300 mg PO TID PRN PRN #90 capsule PRN Reason: nerve pain Iron Polysaccharide Complex [Ferrex 150] 150 mg PO DAILYCM #30 capsule Divalproex Sodium [Depakote] 500 mg PO BIDCM #60 tablet Nutritional Supplement [Teofilo - ORANGE FLAVOR] 1 packet PO BIDCM #60 packet Primary Care Physician: Chema Sanchez Chi, MD [Primary Care Provider] - Please follow up with your Primary Care Physician in: 1 week. Test Results: Test results from this visit will be discussed in further detail at your follow- up appointment, if applicable. Proposed Discharge Date: 07/11/18
--- NOTE | 2018-07-08 08:24 | PCM.DC.SUM ---
Discharge Date and Diagnosis Date of Admission: 06/01/18 Date of Discharge: 07/11/18 - Secondary Discharge Diagnosis Chronic Problems (Last Reviewed 05/16/18 @ 14:58 by Raúl Villareal DO) Hypertension (Chronic) Secondary pulmonary arterial hypertension (Chronic) Non-rheumatic tricuspid valve insufficiency (Chronic) Abnormal electrocardiogram (Chronic) Essential (primary) hypertension (Chronic) Non-healing surgical wound (Chronic) Pressure ulcer of right heel, stage 3 (Chronic) Pressure ulcer of left heel, stage 3 (Chronic) Morbid obesity with BMI of 40.0-44.9, adult (Chronic) GERD (gastroesophageal reflux disease) (Chronic) Depression (Chronic) Hypothyroidism (Chronic) Pressure ulcer of sacral region, stage 4 (Chronic) Neuropathy (Chronic) Hospital Course and Treatment Consultations 06/05/18 06:52 Consult: Onc/Wound/oral surgery assistant Routine Comment: Reason for Consult:: wound vac sacrum Operations: None Procedures: None Summary of Care Provided: The patient is a 68 year old Female with below past medical history significant for stage 4 sacral pressure ulcer, hospitalized for sacral osteomyelitis, 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 Discharge home alone, with home health care. - Physical Exam Vital Signs Temp Pulse Resp BP Pulse Ox 97.9 F 74 18 99/54 L 95 07/07/18 15:47 07/07/18 15:47 07/07/18 15:47 07/07/18 15:47 07/07/18 15:47 Oxygen Delivery Method Room Air Weight: 94.092 kg Body Mass Index (BMI) 34.8 Intake and Output for Last 24 Hours 07/06/18 07/07/18 07/08/18 23:59 23:59 23:59 Intake Total 720 / 720 600 / 600 Balance 720 / 720 600 / 600 Laboratory Tests Past 24 Hrs 07/07/18 06:55 Sodium 144 Potassium 4.0 Chloride 109 H Carbon Dioxide 27.0 Anion Gap 8 BUN 18 Creatinine 0.60 Estim Creat Clear Calc 47.14 Est GFR (MDRD) Af Amer 130 Est GFR (MDRD) Non-Af 107 BUN/Creatinine Ratio 30.3 H Glucose 77 Calcium 9.0 Total Bilirubin 0.30 AST 12 L ALT 17 Alkaline Phosphatase 65 C-React Prot Ext Range 10.50 H Total Protein 6.9 Albumin 3.0 L Globulin 3.9 Albumin/Globulin Ratio 0.8 L Discharge Diet: No Restrictions Discharge Activity: Return to Normal Activity, May Shower, Use Walker Weight Bearing Status: Weight bearing as tolerated Call your doctor if you observe: Fever of 101 or Higher, Inability to urinate, Inability to have a bowel movement, Chest pain, Uncontrolled pain Home Medications: Medications to take at Discharge Levothyroxine [Synthroid] 25 mcg PO DAILY 03/02/17 cholecalciferol (vitamin D3) 50,000 unit capsule 50,000 unit PO QMONTH 08/02/17 Ascorbic Acid 500 mg PO DAILY 08/21/17 Potassium Chloride [K-Dur] 40 meq PO DAILY 12/26/17 Aspirin E.C. [Ecotrin] 81 mg PO DAILY 04/11/18 Omeprazole 40 mg PO 1400 04/11/18 omega-3 fatty acids 1,000 mg capsule 1,000 mg PO DAILY 04/19/18 Acetaminophen [Tylenol] 1,000 mg PO Q6H PRN tablet 07/08/18 Cyclobenzaprine [Flexeril] 10 mg PO TID PRN PRN #90 tablet 07/08/18 Diazepam [Valium] 5 mg PO 4X/DAY PRN PRN #30 tab 07/08/18 Divalproex Sodium [Depakote] 500 mg PO BIDCM #60 tablet 07/08/18 Gabapentin [Neurontin] 300 mg PO TID PRN PRN #90 capsule 07/08/18 Iron Polysaccharide Complex [Ferrex 150] 150 mg PO DAILYCM #30 capsule 07/08/18 Linacolotide [Linzess] 145 mcg PO DAILY PRN capsule 07/08/18 Nutritional Supplement [Teofilo - ORANGE FLAVOR] 1 packet PO BIDCM #60 packet 07/08/18 Following Prescrptions Were Given to Patient: Cyclobenzaprine [Flexeril] 10 mg PO TID PRN PRN #90 tablet PRN Reason: muscle spasms Diazepam [Valium] 5 mg PO 4X/DAY PRN PRN #30 tab PRN Reason: Spasms Gabapentin [Neurontin] 300 mg PO TID PRN PRN #90 capsule PRN Reason: nerve pain Iron Polysaccharide Complex [Ferrex 150] 150 mg PO DAILYCM #30 capsule Divalproex Sodium [Depakote] 500 mg PO BIDCM #60 tablet Nutritional Supplement [Teofilo - ORANGE FLAVOR] 1 packet PO BIDCM #60 packet Primary Care Physician: Chema Sanchez Chi, MD [Primary Care Provider] - Please follow up with your Primary Care Physician in: 1 week. Disposition: Home with Home Health Minutes spent on discharge:: 35 Patient Condition:: Good Medical Necessity - Tobacco Use Smoking Status: Former smoker Meaningful Use Info Meaningful Use Diagnoses (Choose all that apply): None applicable
--- NOTE | 2018-07-08 08:26 | HHNOTE_ITS ---
Home Health Note - Plan Overview of reason of hospitalization: The patient is a 68 year old Female with below past medical history significant for stage 4 sacral pressure ulcer, hospitalized for sacral osteomyelitis, requiring [facility] intravenous [facility], admitted to TCU with debility, here for rehabilitation, strengthening, wound care, intravenous antibiotics prior to discharge home. Discharge home alone, with home health care. Problems: Patient was seen for (Last Reviewed 05/16/18 @ 14:58 by Raúl Villareal DO) Hypertension (Chronic) Complete List of Medical Problems (Last Reviewed 05/16/18 @ 14:58 by Raúl Villareal DO) Hypertension (Chronic) Acute osteomyelitis of sacrum (Acute) Acute blood loss anemia (Acute) Surgical wound present (Acute) Secondary pulmonary arterial hypertension (Chronic) Non-rheumatic tricuspid valve insufficiency (Chronic) Preop cardiovascular exam (Acute) Abnormal electrocardiogram (Chronic) Essential (primary) hypertension (Chronic) Colovaginal fistula (Acute) Non-healing surgical wound (Chronic) Pressure ulcer of right heel, stage 3 (Chronic) Pressure ulcer of left heel, stage 3 (Chronic) Morbid obesity with BMI of 40.0-44.9, adult (Chronic) GERD (gastroesophageal reflux disease) (Chronic) Depression (Chronic) Hypothyroidism (Chronic) Pressure ulcer of sacral region, stage 4 (Chronic) Failure to thrive (Acute) Clostridium difficile colitis (Acute) Neuropathy (Chronic) - Requirements and Reasons Disciplines Needed/Ordered: Mcfp Reason for Disciplines: Disease Specific Monitoring/education, Medication Management/Knowledge Deficit, Wound Care Related To: Shortness of Breath with Activity, Unsteady Gait/Balance, Fall Risk Patient is unable to leave the home: Without Aid of Supportive Devices (crutches, cane, wheelchair, walker), Without the assistance of another person
[2018-07-08] MEDS: 0.9% Saline Lock 10 ML Syringe IV ×2 (09:12→21:17)
--- NOTE | 2018-07-08 09:21 | NURSING ---
PICC FLUSHED, GOOD BLOOD RETURN. NO S/S OF INFECTION. PT TOLERATED WELL. VANCO INFUSING.
--- NOTE | 2018-07-08 12:45 | CASEMGMT ---
Social Work Faxed discharge information and orders to [facility]. Proposed discharge date: 07/11/18 PLAN: Discharge to home alone with home health care. Cr BLOUNT, LORI
[2018-07-08] MEDS: Pantoprazole Sodium 40 MG Tablet PO (13:18)
[2018-07-08 15:28] VITALS: BP 114/83; PULSE 91; RESP 18; TEMP 36.8; O2SAT 95
--- NOTE | 2018-07-08 17:14 | NURSING ---
wound photo: sacral ulcer
[2018-07-08 18:19] VITALS: PULSE 80; RESP 18; O2SAT 98
[2018-07-08] MEDS: 0.9% NaCl IVPB Med Flush (250 mL) 15 ML IV (21:17)
--- NOTE | 2018-07-08 21:45 | NURSING ---
Addendum entered by Arlyn Mcdonough 07/09/18 00:08: PICC line patent with blood return at this time. Original Note: PICC line patent no blood return Maikel Mark aware at this time.
[2018-07-09] MEDS: Acetaminophen 500 MG Tablet 1000 MG PO ×4 (03:14→21:55)
[2018-07-09] MEDS: Omega-3 Acid Ethyl Esters 1 GM Capsule PO (06:47)
[2018-07-09] MEDS: Levothyroxine 25 MCG TABLET PO (06:47)
[2018-07-09] MEDS: Senna/Docusate Sodium 1 Tablet 2 TABLET PO (06:47)
[2018-07-09] MEDS: Ascorbic Acid 500 MG Tablet PO (06:47)
[2018-07-09] MEDS: Enoxaparin 40 MG/0.4 ML Syringe SC (06:49)
[2018-07-09] MEDS: Gabapentin 300 MG Capsule PO ×3 (07:06→20:58)
[2018-07-09] MEDS: Aspirin E.C. 81 MG Tablet PO (08:00)
[2018-07-09] MEDS: Divalproex Sodium 250 MG Tablet 500 MG PO ×2 (08:00→17:26)
[2018-07-09] MEDS: Iron Polysaccharide Complex 150 MG CAPSULE PO (08:00)
[2018-07-09 08:52] VITALS: PULSE 76; RESP 18; O2SAT 98
--- NOTE | 2018-07-09 09:26 | MDS.RN ---
Information for the mds was obtained from review of the clinical record, interview of resident, staff, and direct observation of resident's care.
[2018-07-09] MEDS: Pantoprazole Sodium 40 MG Tablet PO (13:12)
[2018-07-09 15:43] VITALS: BP 121/68; PULSE 83; RESP 18; TEMP 36.8; O2SAT 93
[2018-07-09] MEDS: 0.9% NaCl IVPB Med Flush (250 mL) 15 ML IV (20:58)
[2018-07-09] MEDS: 0.9% Saline Lock 10 ML Syringe IV (20:58)
[2018-07-09] MEDS: diazePAM 5 MG Tablet PO (23:54)
[2018-07-10] MEDS: oxyCODONE 5 MG Tablet PO (02:38)
[2018-07-10] MEDS: Acetaminophen 500 MG Tablet 1000 MG PO ×4 (04:07→22:28)
[2018-07-10] MEDS: Ascorbic Acid 500 MG Tablet PO (04:08)
[2018-07-10] MEDS: Levothyroxine 25 MCG TABLET PO (04:08)
[2018-07-10] MEDS: Omega-3 Acid Ethyl Esters 1 GM Capsule PO (04:08)
[2018-07-10] MEDS: Senna/Docusate Sodium 1 Tablet 2 TABLET PO ×2 (04:08→16:48)
[2018-07-10] MEDS: Enoxaparin 40 MG/0.4 ML Syringe SC (04:09)
[2018-07-10] MEDS: Aspirin E.C. 81 MG Tablet PO (08:32)
[2018-07-10] MEDS: Divalproex Sodium 250 MG Tablet 500 MG PO ×2 (08:32→16:48)
[2018-07-10] MEDS: Iron Polysaccharide Complex 150 MG CAPSULE PO (08:32)
[2018-07-10] MEDS: Gabapentin 300 MG Capsule PO ×2 (08:35→20:28)
[2018-07-10] MEDS: 0.9% Saline Lock 10 ML Syringe IV (09:44)
--- NOTE | 2018-07-10 09:50 | NURSING ---
PICC FLUSHED,GOOD BLOOD RETURN. NO S/S OF INFECTION. PT TOLERATED WELL. NO COMPLAINTS OR CONCERNS VOICED AT THIS TIME.
--- NOTE | 2018-07-10 12:25 | PCM.PN.ID ---
Subjective: Feeling well, no fever, no n/v/d. Wound vac in place. - Physical Exam General: Alert, Cooperative, No apparent distress Lungs: Clear to auscultation, Normal air movement Cardiovascular: Regular rate, Regular Rhythm Abdomen: Soft, Non Tender, Non-Distended Skin: No rashes Vital Signs Temp Pulse Resp BP Pulse Ox 98.2 F 83 18 121/68 H 93 07/09/18 15:43 07/09/18 15:43 07/09/18 15:43 07/09/18 15:43 07/09/18 15:43 Oxygen Delivery Method Room Air Weight: 94.432 kg Body Mass Index (BMI) 34.8 Intake and Output for Last 24 Hours 07/08/18 07/09/18 07/10/18 23:59 23:59 23:59 Intake Total 670 / 670 600 / 600 120 / 120 Balance 670 / 670 600 / 600 120 / 120 Medical Necessity - Tobacco Use Smoking Status: Former smoker Route of nutrition/ use of supplements: [] Nutritional Intake: [] IV Site: [] Grewal Catheter: [] - Assessment/Plan Antibiotics: [] Assessment/Plan: [] Sacral osteo with surg cx (+) for corynebacterium and MSSE, recent cx also with MSSA seen. Continue iv vanc for 6 week course. Trough at goal. Dr. Hansen following. ESR now normalized. Stop date planned for 07/10/18. Ok for d/c home off of abx with picc removed. ID follow up as needed. Will follow
[2018-07-10] MEDS: Pantoprazole Sodium 40 MG Tablet PO (12:46)
[2018-07-10 15:50] VITALS: BP 99/54; PULSE 78; RESP 18; TEMP 36.2; O2SAT 94
--- NOTE | 2018-07-10 16:01 | CASEMGMT ---
Social Work Noted that Power of School Photographs Detailer for Health care and Living Will were on echart, documents have been printed and check for accuracy and then placed in resident chart. Cr BLOUNT, LORI
[2018-07-10 20:38] VITALS: PULSE 78; RESP 18; O2SAT 94
[2018-07-11] MEDS: Acetaminophen 500 MG Tablet 1000 MG PO ×2 (04:32→10:57)
[2018-07-11] MEDS: Ascorbic Acid 500 MG Tablet PO (04:33)
[2018-07-11] MEDS: Omega-3 Acid Ethyl Esters 1 GM Capsule PO (04:33)
[2018-07-11] MEDS: Levothyroxine 25 MCG TABLET PO (04:33)
[2018-07-11] MEDS: Senna/Docusate Sodium 1 Tablet 2 TABLET PO (04:33)
[2018-07-11] MEDS: Enoxaparin 40 MG/0.4 ML Syringe SC (04:34)
[2018-07-11 08:00] VITALS: BP 120/90; PULSE 90; RESP 18; TEMP 36.7; O2SAT 95
[2018-07-11] MEDS: Divalproex Sodium 250 MG Tablet 500 MG PO (08:02)
[2018-07-11] MEDS: Gabapentin 300 MG Capsule PO (08:02)
[2018-07-11] MEDS: Iron Polysaccharide Complex 150 MG CAPSULE PO (08:02)
[2018-07-11] MEDS: Aspirin E.C. 81 MG Tablet PO (08:02)
--- NOTE | 2018-07-11 08:37 | NURSING ---
Pt switched over to the home VAC for discharge. pt denies further needs or questions.
--- NOTE | 2018-07-11 08:53 | CASEMGMT ---
Addendum entered by Natalie Roy 07/11/18 11:29: Reviewed and approved [employer] student MDS documentation. Cr BLOUNT, LORI Original Note: Brief interview for mental status (BIMS) and mood (PHQ-9) completed on this day. BIMS score . PHQ-9 11/28. Kevin Vega social work student
[2018-07-11 09:30] VITALS: PULSE 92; RESP 18
== END 2018-07-11 10:55 | disposition home or self-care (01) | DRG 947 ==
PROVIDERS: Internal Medicine Infectious Disease; Admitting Provider Family Medicine Geriatric Medicine; Family Provider Family Medicine Geriatric Medicine; PCP Family Medicine Geriatric Medicine; Visit Provider Family Medicine Geriatric Medicine
DX: R53.81 Other malaise (principal); L89.154 Pressure ulcer of sacral region, stage 4; M46.28 Osteomyelitis of vertebra, sacral and sacrococcygeal region; F41.9 Anxiety disorder, unspecified; D50.9 Iron deficiency anemia, unspecified; E03.9 Hypothyroidism, unspecified; I10 Essential (primary) hypertension; K21.9 Gastro-esophageal reflux disease without esophagitis; E78.5 Hyperlipidemia, unspecified; F32.9 Major depressive disorder, single episode, unspecified; E87.6 Hypokalemia; G62.9 Polyneuropathy, unspecified; I27.21 Secondary pulmonary arterial hypertension; Z87.891 Personal history of nicotine dependence; E66.01 Morbid (severe) obesity due to excess calories; Z68.34 Body mass index [BMI] 34.0-34.9, adult; Z71.3 Dietary counseling and surveillance
CPT/HCPCS: 36415; 36569; 71045; 80048; 80053; 80202; 85025; 85652; 86140; 97110; 97116; 97161; 97165; 97530; 97535; 97802; J7040; J7050; A4216

== ENCOUNTER 2018-07-31 09:00 | Outpatient (RCR) | payer MEDICARE, OTHER, SELFPAY ==
[2018-06-01 15:37] VITALS: BMI 34.8
[2018-06-04 00:38] VITALS: BP 139/97; PULSE 105; RESP 20; TEMP 36
--- NOTE | 2018-07-17 10:22 | HP.PCM_ITS ---
(1) Acute osteomyelitis of sacrum Status: Acute Current Visit: No Code(s): M46.28 - Osteomyelitis of vertebra, sacral and sacrococcygeal region (2) Non-healing surgical wound Status: Chronic Current Visit: Yes Code(s): T81.89XA - Other complications of procedures, not elsewhere classified, initial encounter (3) Pressure ulcer of sacral region, stage 4 Status: Chronic Current Visit: Yes Code(s): L89.154 - Pressure ulcer of sacral region, stage 4 History of Present Illness Chief Complaint: Sacral pressure sore, Stage IV. History of Wound: Ms. Chavez returns for wound care management after being in the [facility] for about 6 weeks of IV antibiotics due to acute osteomyelitis status post surgical debridement of her sacral ulcer. She has done well. No new concerns at this time. Still has a wound VAC present. Significant drainage in the canister. She however denies chills, fever or feeling of unwell. Past Medical History Past Medical History: Chronic Problems (Last Reviewed 05/16/18 @ 14:58 by Raúl Villareal DO) Hypertension (Chronic) Secondary pulmonary arterial hypertension (Chronic) Non-rheumatic tricuspid valve insufficiency (Chronic) Abnormal electrocardiogram (Chronic) Essential (primary) hypertension (Chronic) Non-healing surgical wound (Chronic) Pressure ulcer of right heel, stage 3 (Chronic) Pressure ulcer of left heel, stage 3 (Chronic) Morbid obesity with BMI of 40.0-44.9, adult (Chronic) GERD (gastroesophageal reflux disease) (Chronic) Depression (Chronic) Hypothyroidism (Chronic) Pressure ulcer of sacral region, stage 4 (Chronic) Neuropathy (Chronic) Surgical History: - Allergies/Adverse Reactions: Allergies bee venom protein (honey bee) Allergy (Verified 04/19/18 13:56) Angioedema metaxalone [From Skelaxin] Allergy (Verified 04/19/18 13:56) Swelling Home Medications: Ambulatory Orders Medication Instructions Recorded Levothyroxine [Synthroid] 25 mcg PO DAILY 03/02/17 cholecalciferol (vitamin D3) 50,000 unit PO QMONTH 08/02/17 50,000 unit capsule Ascorbic Acid 500 mg PO DAILY 08/21/17 Potassium Chloride [K-Dur] 40 meq PO DAILY 12/26/17 Aspirin E.C. [Ecotrin] 81 mg PO DAILY 04/11/18 Omeprazole 40 mg PO 1400 04/11/18 omega-3 fatty acids 1,000 mg 1,000 mg PO DAILY 04/19/18 capsule Acetaminophen [Tylenol] 1,000 mg PO Q6H PRN tablet 07/08/18 Cyclobenzaprine [Flexeril] 10 mg PO TID PRN PRN #90 tablet 07/08/18 Diazepam [Valium] 5 mg PO 4X/DAY PRN PRN #30 tab 07/08/18 Divalproex Sodium [Depakote] 500 mg PO BIDCM #60 tablet 07/08/18 Gabapentin [Neurontin] 300 mg PO TID PRN PRN #90 capsule 07/08/18 Iron Polysaccharide Complex 150 mg PO DAILYCM #30 capsule 07/08/18 [Ferrex 150] Linacolotide [Linzess] 145 mcg PO DAILY PRN capsule 07/08/18 Nutritional Supplement [Teofilo - 1 packet PO BIDCM #60 packet 07/08/18 ORANGE FLAVOR] - Family History Maternal Family History: Family History (Last Reviewed 05/16/18 @ 14:58 by Raúl Villareal DO) Father Myocardial infarction Cancer Brother Heart disease Mother COPD (chronic obstructive pulmonary disease) Unknown, - - Patient's mother at the age of 82 with a history of chronic obstructive pulmonary disease. Paternal Family History: Family History (Last Reviewed 05/16/18 @ 14:58 by Raúl Villareal DO) Father Myocardial infarction Cancer Brother Heart disease Mother COPD (chronic obstructive pulmonary disease) Unknown, - - Patient's father at age of 79 with history of lung cancer and myocardial infarction. Smoking Status: Former smoker Tobacco Use: Non-smoker Review of Systems Constitutional: Denies: Anorexia, Chills, Fever Eyes: Denies: Blurred vision, Pain, Redness HEENT: Denies: Difficulty Hearing, Difficulty Swallowing Cardiovascular: Denies: Chest Pain, Chest Tightness Respiratory: Denies: Hemoptysis Gastrointestinal: Denies: Abdominal Pain, Hematemesis, Vomiting Skin: Denies: Jaundice - Physical Exam Vital Signs Temp Pulse Resp BP 96.8 F L 105 H 20 H 139/97 H 06/04/18 00:38 06/04/18 00:38 06/04/18 00:38 06/04/18 00:38 General: Alert, Oriented x3, Cooperative, No apparent distress HEENT: Atraumatic, Normocephalic Oral: Moist Mucosa Neck: Supple Lungs: Normal air movement Abdomen: Non Tender, Obese Extremities: No cyanosis Skin: Ulcer/ Wound Wound Measurements and Assessment WC - Nurse 2 - General Ulcer CM Notes Start: 07/17/18 10:08 Freq: Status: Active Protocol: Activity Type Activity Date Activity User E-Sign Co-Sign Detail Recorded Client Recorded Date Recorded By Document 07/17/18 10:08 MW [id number] 07/17/18 10:11 MW 07/17/18 10:08 Wound Center Nurse 2 [Procedure/Treatment] #7 sacrum -Time 10:08 -Correct Patient Yes -Correct Side, Site, Position Yes -Correct Procedure Yes -Procedure Performed Yes -Type of Procedure Debridement -Clinical Debridement Subcutaneous -Post Debridement Size (cm) - Length 3.0 -Post Debridement Size (cm) - Width 7.5 -Post Debridement Size (cm) - Depth 3.1 -Total Square Cm 22.50 -Wound/Ulcer Outcome Not Healed -Ulcer Cleansing Rinsed/ Irrigated with Saline -Foul Odor after Cleansing No -Bioengineered Tissue No -Bleeding Controlled with Pressure -Offloading No -Treatment Response Procedure Tolerated Well [See Physician Procedure note for Specifics] Pain Scale: 0-10 Numeric [Pain] -Is Patient Pain Free? Yes Musculoskeletal: No Muscle Wasting Neurological: Cranial nerves II-XII grossly intact Psych/Mental Status: Normal Affect Debridement Note Post-Debridement Measurements/Treatment - Nurse 2 - General Ulcer CM Notes Start: 07/17/18 10:08 Freq: Status: Active Protocol: Activity Type Activity Date Activity User E-Sign Co-Sign Detail Recorded Client Recorded Date Recorded By Document 07/17/18 10:08 MW [id number] 07/17/18 10:11 MW 07/17/18 10:08 Wound Center Nurse 2 #7 sacrum -Time 10:08 -Correct Patient Yes -Correct Side, Site, Position Yes -Correct Procedure Yes -Procedure Performed Yes -Type of Procedure Debridement -Clinical Debridement Subcutaneous -Post Debridement Size (cm) - Length 3.0 -Post Debridement Size (cm) - Width 7.5 -Post Debridement Size (cm) - Depth 3.1 -Total Square Cm 22.50 -Wound/Ulcer Outcome Not Healed -Ulcer Cleansing Rinsed/ Irrigated with Saline -Foul Odor after Cleansing No -Bioengineered Tissue No -Bleeding Controlled with Pressure -Offloading No -Treatment Response Procedure Tolerated Well Pain Scale: 0-10 Numeric Is Patient Pain Free? Yes Wound debrided: Sacral Wound Grade/Stage: Stage IV Type of Debridement: Excisional debridement Anesthesia Used: 4% Lidocaine Solution Depth: Down to and including healthy tissue, in the subcutaneous layer Percentage of wound debrided: 100 Instrument Used: 5mm curette Tissue Removed: Slough and devitalized tissue Severity: Fat Layer Exposed Amount of bleeding with debridement: Mild Bleeding Controlled with: Pressure Patient tolerated procedure well Assessment/Plan Active Problems (Last Reviewed 05/16/18 @ 14:58 by Raúl Villareal DO) Non-healing surgical wound (Chronic) Pressure ulcer of sacral region, stage 4 (Chronic) Assessment: 1. Sacral pressure sore, Stage IV. 2. Surgical wound post debridement of sacral pressure ulcer. 3. s/p repair colovaginal fistula. Plan: Debridement done as documented above. Procedure was well-tolerated. Continue wound VAC at 150 mmHg. Adaptic over exposed bone. Increased protein intake recommended. Advised to call with any questions or concerns. Scheduled to follow-up with Dr. Hansen here at the wound center next Sunday. All her questions were answered and she was asked to call with any further questions or concerns. Follow-up 2 weeks. This note was generated with [employer] software. It may contain incorrect words, spelling, and punctuation that were not noted in checking the note before signing.
[2018-07-22 08:48] VITALS: BP 137/80; PULSE 94; RESP 18; TEMP 35.6; BMI 34.8
--- NOTE | 2018-07-22 17:20 | PCM.WC.PN ---
Type of Wound Date of Service: 07/22/18 Chief Complaint: Sacral pressure sore, Stage IV. History of Wound: Surgery 05/14/18 - Excision sacral pressure sore, Stage IV, with partial ostectomy for osteomyelitis. Wound care - VAC. Operative culture - Staphylococcus epidermidis and Corynebacterium minutissimum in the soft tissue and Corynebacterium minutissimum in the bone. She finished IV Vancomycin for 6 weeks. Pathology was positive for osteomyelitis. Prealbumin from 05/29/18 was 22.0. Encourage nutritional supplementation with protein to help the healing process. CT Pelvis from 05/16/18 showed the skin soft tissue defect overlying the distal portion of the sacrum as progressed. The defect abuts the sacral bone although there is no evidence of bony destruction at this time.. Today she denies fever. Her appetite is ok. Progress of Wound: Improved. - Physical Exam Vital Signs Temp Pulse Resp BP 96.0 F L 94 18 137/80 H 07/22/18 08:48 07/22/18 08:48 07/22/18 08:48 07/22/18 08:48 Wound Measurements and Assessment WC - Nurse 1 - General Ulcer Measurement Start: 07/17/18 10:08 Freq: Status: Active Protocol: Activity Type Activity Date Activity User E-Sign Co-Sign Detail Recorded Client Recorded Date Recorded By Document 07/22/18 08:48 [id number] 07/22/18 09:03 AN 07/22/18 08:48 Wound Center Nurse 1 [Ulcer Assessment] #7 sacrum -Current Size (cm) - Length 2.8 -Current Size (cm) - Width 6.8 -Current Size (cm) - Depth 3.3 -Total Square Cm 19.04 -Photo Taken No -Epithelialization None Present -Tunneling Yes -Tunneling Position (O'clock) 8 -Tunneling Distance (cm) 5.8 -Undermining/Tunneling No -Circular Undermining No -Classification - Thickness Full Thickness with Exposed Support Structure -Exudate Amt Medium -Exudate Type Serosanguineous -Wound Margin Distinct, Outline Attached -Granulation Amt Large (67-100%) -Granulation Quality Red -Slough/Fibrin Yes -Necrosis Amt Small (1-33%) -Necrotic Tissue Type Adherent Slough -Structure Exposed Fascia Fat Layer Exposed -Texture (Amanda-wound Skin Appearance) Assessed Scarring -Moisture (Amanda-wound Skin Appearance Assessed ) -Color (Amanda-wound Skin Appearance) Assessed Hemosiderin Staining -Temperature (Amanda-wound Skin No Abnormality Appearance) (Pt Warm) -Tenderness on Palpation (Amanda-wound No Skin Appearance) -Ulcer Cleansing Rinsed/ Irrigated with Saline -Foul Odor after Cleansing No -Anesthetic Used 4% Lidocaine Solution WC - Nurse 2 - General Ulcer CM Notes Start: 07/17/18 10:08 Freq: Status: Active Protocol: Activity Type Activity Date Activity User E-Sign Co-Sign Detail Recorded Client Recorded Date Recorded By Document 07/22/18 09:22 [id number] 07/22/18 09:24 07/22/18 09:22 Wound Center Nurse 2 [Procedure/Treatment] -Time 09:23 -Correct Patient Yes -Correct Side, Site, Position Yes -Correct Procedure Yes -Procedure Performed Yes -Type of Procedure Debridement -Clinical Debridement Muscle -Post Debridement Size (cm) - Length 2.8 -Post Debridement Size (cm) - Width 6.8 -Post Debridement Size (cm) - Depth 3.4 -Total Square Cm 19.04 -Wound/Ulcer Outcome Not Healed -Ulcer Cleansing Rinsed/ Irrigated with Saline -Foul Odor after Cleansing No -Bioengineered Tissue No -Bleeding Controlled with Pressure -Offloading No -Treatment Response Procedure Tolerated Well [See Physician Procedure note for Specifics] Pain Scale: 0-10 Numeric [Pain] -Is Patient Pain Free? Yes Debridement Note Post-Debridement Measurements/Treatment - Nurse 2 - General Ulcer CM Notes Start: 07/17/18 10:08 Freq: Status: Active Protocol: Activity Type Activity Date Activity User E-Sign Co-Sign Detail Recorded Client Recorded Date Recorded By Document 07/17/18 10:08 [id number] 07/17/18 10:11 Document 07/22/18 09:22 [id number] 07/22/18 09:24 07/17/18 07/22/18 10:08 09:22 Wound Center Nurse 2 #7 sacrum -Time 10:08 09:23 -Correct Patient Yes Yes -Correct Side, Site, Position Yes Yes -Correct Procedure Yes Yes -Procedure Performed Yes Yes -Type of Procedure Debridement Debridement -Clinical Debridement Subcutaneous Muscle -Post Debridement Size (cm) - Length 3.0 2.8 -Post Debridement Size (cm) - Width 7.5 6.8 -Post Debridement Size (cm) - Depth 3.1 3.4 -Total Square Cm 22.50 19.04 -Wound/Ulcer Outcome Not Healed Not Healed -Ulcer Cleansing Rinsed/ Rinsed/ Irrigated with Irrigated with Saline Saline -Foul Odor after Cleansing No No -Bioengineered Tissue No No -Bleeding Controlled with Pressure Pressure -Offloading No No -Treatment Response Procedure Procedure Tolerated Well Tolerated Well Pain Scale: 0-10 Numeric Is Patient Pain Free? Yes Yes Wound debrided: #7 Sacral area. Laterality: Not Applicable Wound Grade/Stage: IV. Type of Debridement: Excisional debridement Anesthesia Used: 4% Lidocaine Solution Depth: Down to and including healthy tissue, in the subcutaneous layer, to muscle, to bone - bone is palpable but not debrided. Percentage of wound debrided: 100 Instrument Used: 7mm curette Tissue Removed: subcutaneous tissue and muscle. Severity: Fat Layer Exposed - muscle is exposed. bone is palpable but not debrided. Amount of bleeding with debridement: Mild Bleeding Controlled with: Pressure Patient tolerated procedure well Assessment/Plan Assessment: 1. Sacral pressure sore, Stage IV. 2. Osteomyelitis. 3. s/p repair colovaginal fistula. Plan: Continue the VAC. To be changed three times per week at 150 mmHg continuous suction. She is done with the IV Vancomycin. Prealbumin from 05/29/18 was 22.0. Encourage nutritional supplementation with protein to help the healing process. Followup one week to see Dr. Santiago at [facility]. Followup one month to see me. She can benefit from HBO treatments for her osteomyelitis. Will discuss at future visits. She will think about it.
[2018-07-31 08:42] VITALS: BP 143/94; PULSE 99; RESP 18; TEMP 36.3; BMI 34.8
--- NOTE | 2018-07-31 09:16 | PCM.WC.PN ---
(1) Acute osteomyelitis of sacrum Status: Acute Current Visit: No Code(s): M46.28 - Osteomyelitis of vertebra, sacral and sacrococcygeal region (2) Non-healing surgical wound Status: Chronic Current Visit: Yes Code(s): T81.89XA - Other complications of procedures, not elsewhere classified, initial encounter (3) Pressure ulcer of sacral region, stage 4 Status: Chronic Current Visit: Yes Code(s): L89.154 - Pressure ulcer of sacral region, stage 4 Type of Wound Chief Complaint: Sacral pressure sore, Stage IV. History of Wound: Ms. Chavez returns for wound care management after being in the [facility] for about 6 weeks of IV antibiotics due to acute osteomyelitis status post surgical debridement of her sacral ulcer. She has done well. No new concerns at this time. Still has a wound VAC present. Significant drainage in the canister. She however denies chills, fever or feeling of unwell. Progress of Wound: Stable. No new concerns at this time. - Physical Exam Vital Signs Temp Pulse Resp BP 97.3 F L 99 18 143/94 H 07/31/18 08:42 07/31/18 08:42 07/31/18 08:42 07/31/18 08:42 General: Alert, Oriented x3, Cooperative, No apparent distress HEENT: Atraumatic, Normocephalic Oral: Moist Mucosa Neck: Supple Lungs: Normal air movement Abdomen: Non Tender Extremities: No cyanosis Skin: Ulcer/ Wound Wound Measurements and Assessment WC - Nurse 1 - General Ulcer Measurement Start: 07/17/18 10:08 Freq: Status: Active Protocol: Activity Type Activity Date Activity User E-Sign Co-Sign Detail Recorded Client Recorded Date Recorded By Document 07/31/18 08:42 DL [id number] 07/31/18 08:50 DL 07/31/18 08:42 Wound Center Nurse 1 [Ulcer Assessment] #7 sacrum -Current Size (cm) - Length 2.4 -Current Size (cm) - Width 6.6 -Current Size (cm) - Depth 2.9 -Total Square Cm 15.84 -Photo Taken No -Maximum Distance #2 (cm) 3.5 -Circular Undermining Yes -Exudate Amt Medium -Exudate Type Serosanguineous -Wound Margin Distinct, Outline Attached -Granulation Amt Large (67-100%) -Granulation Quality Red -Necrosis Amt None Present (0 %) -Structure Exposed N/A -Texture (Amanda-wound Skin Appearance) Scarring -Moisture (Amanda-wound Skin Appearance No Abnormality ) -Color (Amanda-wound Skin Appearance) Rubor -Temperature (Amanda-wound Skin No Abnormality Appearance) (Pt Warm) -Tenderness on Palpation (Amanda-wound No Skin Appearance) -Ulcer Cleansing Wound Cleanser -Foul Odor after Cleansing No -Anesthetic Used 4% Lidocaine Solution - Nurse 2 - General Ulcer CM Notes Start: 07/17/18 10:08 Freq: Status: Active Protocol: Activity Type Activity Date Activity User E-Sign Co-Sign Detail Recorded Client Recorded Date Recorded By Document 07/31/18 09:10 MW [id number] 07/31/18 09:12 MW 07/31/18 09:10 Wound Center Nurse 2 [Procedure/Treatment] -Time 09:10 -Correct Patient Yes -Correct Side, Site, Position Yes -Correct Procedure Yes -Procedure Performed Yes -Type of Procedure Debridement -Clinical Debridement Subcutaneous -Post Debridement Size (cm) - Length 2.5 -Post Debridement Size (cm) - Width 7.0 -Post Debridement Size (cm) - Depth 2.6 -Total Square Cm 17.50 -Wound/Ulcer Outcome Not Healed -Ulcer Cleansing Rinsed/ Irrigated with Saline -Foul Odor after Cleansing No -Bioengineered Tissue No -Bleeding Controlled with Pressure -Offloading No -Treatment Response Procedure Tolerated Well [See Physician Procedure note for Specifics] Pain Scale: 0-10 Numeric [Pain] -Is Patient Pain Free? Yes Musculoskeletal: No Muscle Wasting Neurological: Cranial nerves II-XII grossly intact Psych/Mental Status: Normal Affect Debridement Note Post-Debridement Measurements/Treatment - Nurse 2 - General Ulcer CM Notes Start: 07/17/18 10:08 Freq: Status: Active Protocol: Activity Type Activity Date Activity User E-Sign Co-Sign Detail Recorded Client Recorded Date Recorded By Document 07/17/18 10:08 MW [id number] 07/17/18 10:11 MW Document 07/22/18 09:22 [id number] 07/22/18 09:24 JF Document 07/31/18 09:10 MW [id number] 07/31/18 09:12 MW 07/17/18 07/22/18 07/31/18 10:08 09:22 09:10 Wound Center Nurse 2 #7 sacrum -Time 10:08 09:23 09:10 -Correct Patient Yes Yes Yes -Correct Side, Site, Position Yes Yes Yes -Correct Procedure Yes Yes Yes -Procedure Performed Yes Yes Yes -Type of Procedure Debridement Debridement Debridement -Clinical Debridement Subcutaneous Muscle Subcutaneous -Post Debridement Size (cm) - Length 3.0 2.8 2.5 -Post Debridement Size (cm) - Width 7.5 6.8 7.0 -Post Debridement Size (cm) - Depth 3.1 3.4 2.6 -Total Square Cm 22.50 19.04 17.50 -Wound/Ulcer Outcome Not Healed Not Healed Not Healed -Ulcer Cleansing Rinsed/ Rinsed/ Rinsed/ Irrigated with Irrigated with Irrigated with Saline Saline Saline -Foul Odor after Cleansing No No No -Bioengineered Tissue No No No -Bleeding Controlled with Pressure Pressure Pressure -Offloading No No No -Treatment Response Procedure Procedure Procedure Tolerated Well Tolerated Well Tolerated Well Pain Scale: 0-10 Numeric Is Patient Pain Free? Yes Yes Yes Wound debrided: Sacral Ulcer Wound Grade/Stage: Stage IV Type of Debridement: Excisional debridement Anesthesia Used: 4% Lidocaine Solution Depth: Down to and including healthy tissue, in the subcutaneous layer Percentage of wound debrided: 100 Instrument Used: 7mm curette Tissue Removed: Slough and devitalized tissue Severity: Fat Layer Exposed Amount of bleeding with debridement: Mild Bleeding Controlled with: Pressure Patient tolerated procedure well Assessment/Plan Active Problems (Last Reviewed 05/16/18 @ 14:58 by Raúl Villareal DO) Non-healing surgical wound (Chronic) Pressure ulcer of sacral region, stage 4 (Chronic) Assessment: 1. Sacral pressure sore, Stage IV. 2. Surgical wound post debridement of sacral pressure ulcer. 3. s/p repair colovaginal fistula. Plan: Debridement done as documented above. Procedure was well-tolerated. Continue wound VAC at 150 mmHg. Increased protein intake recommended. Advised to call with any questions or concerns. Scheduled to follow-up with Dr. Hansen here again on the 19 of August. All her questions were answered and she was asked to call with any further questions or concerns. Follow-up 2 weeks. This note was generated with [employer] software. It may contain incorrect words, spelling, and punctuation that were not noted in checking the note before signing.
--- NOTE | 2018-07-31 09:19 | PN.PCM_ITS ---
(1) Acute osteomyelitis of sacrum Status: Acute Current Visit: No Code(s): M46.28 - Osteomyelitis of vertebra, sacral and sacrococcygeal region (2) Non-healing surgical wound Status: Chronic Current Visit: Yes Code(s): T81.89XA - Other complications of procedures, not elsewhere classified, initial encounter (3) Pressure ulcer of sacral region, stage 4 Status: Chronic Current Visit: Yes Code(s): L89.154 - Pressure ulcer of sacral region, stage 4 Type of Wound Chief Complaint: Sacral pressure sore, Stage IV. History of Wound: Ms. Chavez returns for wound care management after being in [facility] about 6 weeks of IV antibiotics due to acute osteomyelitis status post surgical debridement of her sacral ulcer. She has done well. No new concerns at this time. Still has a wound VAC present. Significant drainage in the canister. She however denies chills, fever or feeling of unwell. Progress of Wound: Stable. No new concerns at this time. - Physical Exam Vital Signs Temp Pulse Resp BP 97.3 F L 99 18 143/94 H 07/31/18 08:42 07/31/18 08:42 07/31/18 08:42 07/31/18 08:42 General: Alert, Oriented x3, Cooperative, No apparent distress HEENT: Atraumatic, Normocephalic Oral: Moist Mucosa Neck: Supple Lungs: Normal air movement Abdomen: Non Tender Extremities: No cyanosis Skin: Ulcer/ Wound Wound Measurements and Assessment WC - Nurse 1 - General Ulcer Measurement Start: 07/17/18 10:08 Freq: Status: Active Protocol: Activity Type Activity Date Activity User E-Sign Co-Sign Detail Recorded Client Recorded Date Recorded By Document 07/31/18 08:42 DL [id number] 07/31/18 08:50 DL 07/31/18 08:42 Wound Center Nurse 1 [Ulcer Assessment] #7 sacrum -Current Size (cm) - Length 2.4 -Current Size (cm) - Width 6.6 -Current Size (cm) - Depth 2.9 -Total Square Cm 15.84 -Photo Taken No -Maximum Distance #2 (cm) 3.5 -Circular Undermining Yes -Exudate Amt Medium -Exudate Type Serosanguineous -Wound Margin Distinct, Outline Attached -Granulation Amt Large (67-100%) -Granulation Quality Red -Necrosis Amt None Present (0 %) -Structure Exposed N/A -Texture (Amanda-wound Skin Appearance) Scarring -Moisture (Amanda-wound Skin Appearance No Abnormality ) -Color (Amanda-wound Skin Appearance) Rubor -Temperature (Amanda-wound Skin No Abnormality Appearance) (Pt Warm) -Tenderness on Palpation (Amanda-wound No Skin Appearance) -Ulcer Cleansing Wound Cleanser -Foul Odor after Cleansing No -Anesthetic Used 4% Lidocaine Solution - Nurse 2 - General Ulcer CM Notes Start: 07/17/18 10:08 Freq: Status: Active Protocol: Activity Type Activity Date Activity User E-Sign Co-Sign Detail Recorded Client Recorded Date Recorded By Document 07/31/18 09:10 MW [id number] 07/31/18 09:12 MW 07/31/18 09:10 Wound Center Nurse 2 [Procedure/Treatment] -Time 09:10 -Correct Patient Yes -Correct Side, Site, Position Yes -Correct Procedure Yes -Procedure Performed Yes -Type of Procedure Debridement -Clinical Debridement Subcutaneous -Post Debridement Size (cm) - Length 2.5 -Post Debridement Size (cm) - Width 7.0 -Post Debridement Size (cm) - Depth 2.6 -Total Square Cm 17.50 -Wound/Ulcer Outcome Not Healed -Ulcer Cleansing Rinsed/ Irrigated with Saline -Foul Odor after Cleansing No -Bioengineered Tissue No -Bleeding Controlled with Pressure -Offloading No -Treatment Response Procedure Tolerated Well [See Physician Procedure note for Specifics] Pain Scale: 0-10 Numeric [Pain] -Is Patient Pain Free? Yes Musculoskeletal: No Muscle Wasting Neurological: Cranial nerves II-XII grossly intact Psych/Mental Status: Normal Affect Debridement Note Post-Debridement Measurements/Treatment - Nurse 2 - General Ulcer CM Notes Start: 07/17/18 10:08 Freq: Status: Active Protocol: Activity Type Activity Date Activity User E-Sign Co-Sign Detail Recorded Client Recorded Date Recorded By Document 07/17/18 10:08 MW [id number] 07/17/18 10:11 MW Document 07/22/18 09:22 [id number] 07/22/18 09:24 JF Document 07/31/18 09:10 MW [id number] 07/31/18 09:12 MW 07/17/18 07/22/18 07/31/18 10:08 09:22 09:10 Wound Center Nurse 2 #7 sacrum -Time 10:08 09:23 09:10 -Correct Patient Yes Yes Yes -Correct Side, Site, Position Yes Yes Yes -Correct Procedure Yes Yes Yes -Procedure Performed Yes Yes Yes -Type of Procedure Debridement Debridement Debridement -Clinical Debridement Subcutaneous Muscle Subcutaneous -Post Debridement Size (cm) - Length 3.0 2.8 2.5 -Post Debridement Size (cm) - Width 7.5 6.8 7.0 -Post Debridement Size (cm) - Depth 3.1 3.4 2.6 -Total Square Cm 22.50 19.04 17.50 -Wound/Ulcer Outcome Not Healed Not Healed Not Healed -Ulcer Cleansing Rinsed/ Rinsed/ Rinsed/ Irrigated with Irrigated with Irrigated with Saline Saline Saline -Foul Odor after Cleansing No No No -Bioengineered Tissue No No No -Bleeding Controlled with Pressure Pressure Pressure -Offloading No No No -Treatment Response Procedure Procedure Procedure Tolerated Well Tolerated Well Tolerated Well Pain Scale: 0-10 Numeric Is Patient Pain Free? Yes Yes Yes Wound debrided: Sacral Ulcer Wound Grade/Stage: Stage IV Type of Debridement: Excisional debridement Anesthesia Used: 4% Lidocaine Solution Depth: Down to and including healthy tissue, in the subcutaneous layer Percentage of wound debrided: 100 Instrument Used: 7mm curette Tissue Removed: Slough and devitalized tissue Severity: Fat Layer Exposed Amount of bleeding with debridement: Mild Bleeding Controlled with: Pressure Patient tolerated procedure well Assessment/Plan Active Problems (Last Reviewed 05/16/18 @ 14:58 by Raúl Villareal DO) Non-healing surgical wound (Chronic) Pressure ulcer of sacral region, stage 4 (Chronic) Assessment: 1. Sacral pressure sore, Stage IV. 2. Surgical wound post debridement of sacral pressure ulcer. 3. s/p repair colovaginal fistula. Plan: Debridement done as documented above. Procedure was well-tolerated. Continue wound VAC at 150 mmHg. Increased protein intake recommended. Advised to call with any questions or concerns. Scheduled to follow-up with Dr. Hansen here again on the 19 of August. All her questions were answered and she was asked to call with any further questions or concerns. Follow-up 2 weeks. This note was generated with [employer] software. It may contain incorrect words, spelling, and punctuation that were not noted in checking the note before signing.
== END 2018-08-01 23:59 ==
LOC: WC 09:00
PROVIDERS: Family Provider Family Medicine Geriatric Medicine; PCP Family Medicine Geriatric Medicine; Visit Provider Internal Medicine
DX: L89.154 Pressure ulcer of sacral region, stage 4 (principal); T81.89XA Other complications of procedures, not elsewhere classified, initial encounter; Y83.8 Other surgical procedures as the cause of abnormal reaction of the patient, or of later complication, without mention of misadventure at the time of the procedure; K21.9 Gastro-esophageal reflux disease without esophagitis; I10 Essential (primary) hypertension; I27.21 Secondary pulmonary arterial hypertension; E66.01 Morbid (severe) obesity due to excess calories; Z68.41 Body mass index [BMI] 40.0-44.9, adult; Z71.3 Dietary counseling and surveillance; E03.9 Hypothyroidism, unspecified; G62.9 Polyneuropathy, unspecified; Z79.899 Other long term (current) drug therapy; Z79.82 Long term (current) use of aspirin; Z87.891 Personal history of nicotine dependence
CPT/HCPCS: 11042; 11043; 11045; 87070; 87075; 87077; 87186; 87205; 97605; 99213; G0463

== ENCOUNTER 2018-08-26 09:45 | Outpatient (RCR) | payer MEDICARE, OTHER, SELFPAY ==
[2018-08-02 00:18] VITALS: BP 143/94; PULSE 99; RESP 18; TEMP 36.3
[2018-08-07 08:54] VITALS: BP 141/71; PULSE 96; TEMP 36.6; BMI 34.8
--- NOTE | 2018-08-07 09:40 | PCM.WC.PN ---
(1) Non-healing surgical wound Status: Chronic Current Visit: Yes Code(s): T81.89XA - Other complications of procedures, not elsewhere classified, initial encounter (2) Pressure ulcer of sacral region, stage 4 Status: Chronic Current Visit: Yes Code(s): L89.154 - Pressure ulcer of sacral region, stage 4 (3) Surgical wound present Status: Acute Current Visit: No Code(s): T14.8XXA - Other injury of unspecified body region, initial encounter (4) Morbid obesity with BMI of 40.0-44.9, adult Status: Chronic Current Visit: No Code(s): E66.01 - Morbid (severe) obesity due to excess calories; Z68.41 - Body mass index (BMI) 40.0-44.9, adult Type of Wound Chief Complaint: Sacral pressure sore, Stage IV. History of Wound: Ms. Chavez returns for wound care management [facility] of IV antibiotics due to acute osteomyelitis status post surgical debridement of her sacral ulcer. She has done well. No new concerns at this time. Still has a wound VAC present. Significant drainage in the canister. She however denies chills, fever or feeling of unwell. Progress of Wound: Stable. No new concerns at this time. - Physical Exam Vital Signs Temp Pulse Resp BP 97.8 F 96 18 141/71 H 08/07/18 08:54 08/07/18 08:54 08/02/18 00:18 08/07/18 08:54 General: Alert, Oriented x3, Cooperative, No apparent distress HEENT: Atraumatic, Normocephalic Oral: Moist Mucosa Neck: Supple Lungs: Normal air movement Extremities: No cyanosis Skin: Ulcer/ Wound Wound Measurements and Assessment WC - Nurse 1 - General Ulcer Measurement Start: 08/07/18 08:54 Freq: Status: Active Protocol: Activity Type Activity Date Activity User E-Sign Co-Sign Detail Recorded Client Recorded Date Recorded By Document 08/07/18 08:54 MW [id number] 08/07/18 08:58 MW 08/07/18 08:54 Wound Center Nurse 1 [Ulcer Assessment] #7 sacrum -Combined with other wound No -Current Size (cm) - Length 2.1 -Current Size (cm) - Width 6.3 -Current Size (cm) - Depth 2.8 -Total Square Cm 13.23 -Date of Last Picture (Recall this 08/07/18 field) -Photo Taken Yes -Epithelialization Small 1-33% -Tunneling No -Undermining/Tunneling No -Circular Undermining No -Exudate Amt Medium -Exudate Type Serosanguineous -Wound Margin Distinct, Outline Attached -Granulation Amt Large (67-100%) -Granulation Quality Red -Slough/Fibrin Yes -Necrosis Amt Small (1-33%) -Necrotic Tissue Type Adherent Slough -Structure Exposed N/A -Texture (Amanda-wound Skin Appearance) Assessed Scarring -Moisture (Amanda-wound Skin Appearance No Abnormality ) Assessed -Color (Amanda-wound Skin Appearance) No Abnormality Assessed -Temperature (Amanda-wound Skin No Abnormality Appearance) (Pt Warm) -Tenderness on Palpation (Amanda-wound No Skin Appearance) -Ulcer Cleansing Rinsed/ Irrigated with Saline -Foul Odor after Cleansing No -Anesthetic Used 4% Lidocaine Solution [Edema Assessment] -Lower Limb Edema Present No WC - Nurse 2 - General Ulcer CM Notes Start: 08/07/18 08:54 Freq: Status: Active Protocol: Activity Type Activity Date Activity User E-Sign Co-Sign Detail Recorded Client Recorded Date Recorded By Document 08/07/18 09:21 MW [id number] 08/07/18 09:23 MW 08/07/18 09:21 Wound Center Nurse 2 [Procedure/Treatment] #7 sacrum -Time 09:21 -Correct Patient Yes -Correct Side, Site, Position Yes -Correct Procedure Yes -Procedure Performed Yes -Type of Procedure Debridement -Clinical Debridement Subcutaneous -Post Debridement Size (cm) - Length 2.9 -Post Debridement Size (cm) - Width 6.5 -Post Debridement Size (cm) - Depth 2.4 -Total Square Cm 18.85 -Wound/Ulcer Outcome Not Healed -Ulcer Cleansing Rinsed/ Irrigated with Saline -Foul Odor after Cleansing No -Bioengineered Tissue No -Bleeding Controlled with Pressure -Offloading No -Treatment Response Procedure Tolerated Well [See Physician Procedure note for Specifics] Pain Scale: 0-10 Numeric [Pain] -Is Patient Pain Free? Yes Musculoskeletal: No Muscle Wasting Neurological: Cranial nerves II-XII grossly intact Psych/Mental Status: Normal Affect Debridement Note Post-Debridement Measurements/Treatment WC - Nurse 2 - General Ulcer CM Notes Start: 08/07/18 08:54 Freq: Status: Active Protocol: Activity Type Activity Date Activity User E-Sign Co-Sign Detail Recorded Client Recorded Date Recorded By Document 08/07/18 09:21 MW [id number] 08/07/18 09:23 MW 08/07/18 09:21 Wound Center Nurse 2 #7 sacrum -Time 09:21 -Correct Patient Yes -Correct Side, Site, Position Yes -Correct Procedure Yes -Procedure Performed Yes -Type of Procedure Debridement -Clinical Debridement Subcutaneous -Post Debridement Size (cm) - Length 2.9 -Post Debridement Size (cm) - Width 6.5 -Post Debridement Size (cm) - Depth 2.4 -Total Square Cm 18.85 -Wound/Ulcer Outcome Not Healed -Ulcer Cleansing Rinsed/ Irrigated with Saline -Foul Odor after Cleansing No -Bioengineered Tissue No -Bleeding Controlled with Pressure -Offloading No -Treatment Response Procedure Tolerated Well Pain Scale: 0-10 Numeric Is Patient Pain Free? Yes Wound debrided: Sacral Wound Grade/Stage: Stage IV Type of Debridement: Excisional debridement Anesthesia Used: 4% Lidocaine Solution Depth: Down to and including healthy tissue, in the subcutaneous layer Percentage of wound debrided: 100 Instrument Used: 7mm curette Tissue Removed: Slough and devitalized tissue Severity: Fat Layer Exposed Amount of bleeding with debridement: Mild Bleeding Controlled with: Pressure Patient tolerated procedure well Assessment/Plan Active Problems (Last Reviewed 05/16/18 @ 14:58 by Raúl Villareal DO) Non-healing surgical wound (Chronic) Pressure ulcer of sacral region, stage 4 (Chronic) Assessment: 1. Sacral pressure sore, Stage IV. 2. Surgical wound post debridement of sacral pressure ulcer. 3. s/p repair colovaginal fistula. Plan: Debridement done as documented above. Procedure was well-tolerated. Reduce wound VAC to 125 mmHg due to hyper granulation. Increased protein intake recommended. Advised to call with any questions or concerns. Scheduled to follow-up with Dr. Hansen here again on the 19 of August. All her questions were answered and she was asked to call with any further questions or concerns. Follow-up in 1 week. This note was generated with [employer] software. It may contain incorrect words, spelling, and punctuation that were not noted in checking the note before signing.
[2018-08-14 09:12] VITALS: BP 154/89; PULSE 107; RESP 16; TEMP 36.4; BMI 34.8
--- NOTE | 2018-08-14 09:26 | PCM.WC.PN ---
(1) Non-healing surgical wound Status: Chronic Current Visit: Yes Code(s): T81.89XA - Other complications of procedures, not elsewhere classified, initial encounter (2) Pressure ulcer of sacral region, stage 4 Status: Chronic Current Visit: Yes Code(s): L89.154 - Pressure ulcer of sacral region, stage 4 (3) Surgical wound present Status: Acute Current Visit: No Code(s): T14.8XXA - Other injury of unspecified body region, initial encounter (4) Morbid obesity with BMI of 40.0-44.9, adult Status: Chronic Current Visit: No Code(s): E66.01 - Morbid (severe) obesity due to excess calories; Z68.41 - Body mass index (BMI) 40.0-44.9, adult Type of Wound Chief Complaint: Sacral pressure sore, Stage IV. History of Wound: Ms. Chavez returns for wound care management after [facility] the [facility] of IV antibiotics due to acute osteomyelitis status post surgical debridement of her sacral ulcer. She has done well. No new concerns at this time. Still has a wound VAC present. Significant drainage in the canister. She however denies chills, fever or feeling of unwell. Progress of Wound: Siad to have noted increased pain since sunday. Also noted increased drainage which she described as bloody. - Physical Exam Vital Signs Temp Pulse Resp BP 97.5 F L 107 H 16 154/89 H 08/14/18 09:12 08/14/18 09:12 08/14/18 09:12 08/14/18 09:12 General: Alert, Oriented x3, Cooperative, No apparent distress HEENT: Atraumatic, Normocephalic Oral: Moist Mucosa Neck: Supple Lungs: Normal air movement Abdomen: Non Tender Extremities: No edema Skin: Ulcer/ Wound Wound Measurements and Assessment WC - Nurse 1 - General Ulcer Measurement Start: 08/07/18 08:54 Freq: Status: Active Protocol: Activity Type Activity Date Activity User E-Sign Co-Sign Detail Recorded Client Recorded Date Recorded By Document 08/14/18 09:12 MW [id number] 08/14/18 09:14 MW 08/14/18 09:12 Wound Center Nurse 1 [Ulcer Assessment] #7 sacrum -Combined with other wound No -Current Size (cm) - Length 2.1 -Current Size (cm) - Width 6.0 -Current Size (cm) - Depth 2.9 -Total Square Cm 12.60 -Photo Taken No -Epithelialization None Present -Tunneling No -Undermining/Tunneling No -Circular Undermining No -Exudate Amt Medium -Exudate Type Serosanguineous -Wound Margin Distinct, Outline Attached -Granulation Amt Large (67-100%) -Granulation Quality Hyper- granulation -Slough/Fibrin Yes -Necrosis Amt None Present (0 %) -Necrotic Tissue Type Adherent Slough -Structure Exposed N/A -Texture (Amanda-wound Skin Appearance) Assessed Scarring -Moisture (Amanda-wound Skin Appearance No Abnormality ) Assessed -Color (Amanda-wound Skin Appearance) No Abnormality Assessed -Temperature (Amanda-wound Skin No Abnormality Appearance) (Pt Warm) -Tenderness on Palpation (Amanda-wound No Skin Appearance) -Ulcer Cleansing Rinsed/ Irrigated with Saline -Foul Odor after Cleansing No -Anesthetic Used 4% Lidocaine Solution [Edema Assessment] -Lower Limb Edema Present No WC - Nurse 2 - General Ulcer CM Notes Start: 08/07/18 08:54 Freq: Status: Active Protocol: Activity Type Activity Date Activity User E-Sign Co-Sign Detail Recorded Client Recorded Date Recorded By Document 08/14/18 09:17 MW [id number] 08/14/18 09:24 MW 08/14/18 09:17 Wound Center Nurse 2 [Procedure/Treatment] #7 sacrum -Time 09:17 -Correct Patient Yes -Correct Side, Site, Position Yes -Correct Procedure Yes -Procedure Performed Yes -Type of Procedure Debridement -Clinical Debridement Subcutaneous -Post Debridement Size (cm) - Length 2.3 -Post Debridement Size (cm) - Width 5.7 -Post Debridement Size (cm) - Depth 3.0 -Total Square Cm 13.11 -Wound/Ulcer Outcome Not Healed -Ulcer Cleansing Rinsed/ Irrigated with Saline -Foul Odor after Cleansing No -Bleeding Controlled with Pressure -Offloading No -Treatment Response Procedure Tolerated Well [See Physician Procedure note for Specifics] Pain Scale: 0-10 Numeric [Pain] -Is Patient Pain Free? Yes Musculoskeletal: No Muscle Wasting Neurological: Cranial nerves II-XII grossly intact Psych/Mental Status: Normal Affect Debridement Note Post-Debridement Measurements/Treatment WC - Nurse 2 - General Ulcer CM Notes Start: 08/07/18 08:54 Freq: Status: Active Protocol: Activity Type Activity Date Activity User E-Sign Co-Sign Detail Recorded Client Recorded Date Recorded By Document 08/07/18 09:21 MW [id number] 08/07/18 09:23 MW Document 08/14/18 09:17 MW [id number] 08/14/18 09:24 MW 08/07/18 08/14/18 09:21 09:17 Wound Center Nurse 2 #7 sacrum -Time 09: 09:17 -Correct Patient Yes Yes -Correct Side, Site, Position Yes Yes -Correct Procedure Yes Yes -Procedure Performed Yes Yes -Type of Procedure Debridement Debridement -Clinical Debridement Subcutaneous Subcutaneous -Post Debridement Size (cm) - Length 2.9 2.3 -Post Debridement Size (cm) - Width 6.5 5.7 -Post Debridement Size (cm) - Depth 2.4 3.0 -Total Square Cm 18.85 13.11 -Wound/Ulcer Outcome Not Healed Not Healed -Ulcer Cleansing Rinsed/ Rinsed/ Irrigated with Irrigated with Saline Saline -Foul Odor after Cleansing No No -Bioengineered Tissue No -Bleeding Controlled with Pressure Pressure -Offloading No No -Treatment Response Procedure Procedure Tolerated Well Tolerated Well Pain Scale: 0-10 Numeric Is Patient Pain Free? Yes Yes Wound debrided: Sacral ulcer Wound Grade/Stage: Stage IV Type of Debridement: Excisional debridement Anesthesia Used: 4% Lidocaine Solution Depth: Down to and including healthy tissue, in the subcutaneous layer Percentage of wound debrided: 100 Instrument Used: 7mm curette Tissue Removed: Slough and devitalized tissue Severity: Fat Layer Exposed Amount of bleeding with debridement: Mild Bleeding Controlled with: Pressure Patient tolerated procedure well Assessment/Plan Active Problems (Last Reviewed 05/16/18 @ 14:58 by Raúl Villareal DO) Non-healing surgical wound (Chronic) Pressure ulcer of sacral region, stage 4 (Chronic) Assessment: 1. Sacral pressure sore, Stage IV. 2. Surgical wound post debridement of sacral pressure ulcer. 3. s/p repair colovaginal fistula. Plan: Brownish discharge noted. Also still significantly hypergranulated. Debridement done as documented above, procedure was well tolerated. Cultures taken. Will hold off wound vac for now. May resume after follow up with Dr. Hansen if indicated. Fibrocol for now. Change every other day due to home health. Advised to call with any questions or concerns. Scheduled to follow-up with Dr. Hansen here again on the 19 of August. All her questions were answered and she was asked to call with any further questions or concerns. Follow-up in 1 week. This note was generated with [employer] software. It may contain incorrect words, spelling, and punctuation that were not noted in checking the note before signing.
--- NOTE | 2018-08-14 09:32 | PN.PCM_ITS ---
(1) Non-healing surgical wound Status: Chronic Current Visit: Yes Code(s): T81.89XA - Other complications of procedures, not elsewhere classified, initial encounter (2) Pressure ulcer of sacral region, stage 4 Status: Chronic Current Visit: Yes Code(s): L89.154 - Pressure ulcer of sacral region, stage 4 (3) Surgical wound present Status: Acute Current Visit: No Code(s): T14.8XXA - Other injury of unspecified body region, initial encounter (4) Morbid obesity with BMI of 40.0-44.9, adult Status: Chronic Current Visit: No Code(s): E66.01 - Morbid (severe) obesity due to excess calories; Z68.41 - Body mass index (BMI) 40.0-44.9, adult Type of Wound Chief Complaint: Sacral pressure sore, Stage IV. History of Wound: Ms. Chavez returns for wound care management after being in the long-term for about 6 weeks of IV antibiotics due to acute osteomyelitis status post surgical debridement of her sacral ulcer. She has done well. No new concerns at this time. Still has a wound VAC present. Significant drainage in the canister. She however denies chills, fever or feeling of unwell. Progress of Wound: Siad to have noted increased pain since sunday. Also noted increased drainage which she described as bloody. - Physical Exam Vital Signs Temp Pulse Resp BP 97.5 F L 107 H 16 154/89 H 08/14/18 09:12 08/14/18 09:12 08/14/18 09:12 08/14/18 09:12 General: Alert, Oriented x3, Cooperative, No apparent distress HEENT: Atraumatic, Normocephalic Oral: Moist Mucosa Neck: Supple Lungs: Normal air movement Abdomen: Non Tender Extremities: No edema Skin: Ulcer/ Wound Wound Measurements and Assessment WC - Nurse 1 - General Ulcer Measurement Start: 08/07/18 08:54 Freq: Status: Active Protocol: Activity Type Activity Date Activity User E-Sign Co-Sign Detail Recorded Client Recorded Date Recorded By Document 08/14/18 09:12 MW [id number] 08/14/18 09:14 MW 08/14/18 09:12 Wound Center Nurse 1 [Ulcer Assessment] #7 sacrum -Combined with other wound No -Current Size (cm) - Length 2.1 -Current Size (cm) - Width 6.0 -Current Size (cm) - Depth 2.9 -Total Square Cm 12.60 -Photo Taken No -Epithelialization None Present -Tunneling No -Undermining/Tunneling No -Circular Undermining No -Exudate Amt Medium -Exudate Type Serosanguineous -Wound Margin Distinct, Outline Attached -Granulation Amt Large (67-100%) -Granulation Quality Hyper- granulation -Slough/Fibrin Yes -Necrosis Amt None Present (0 %) -Necrotic Tissue Type Adherent Slough -Structure Exposed N/A -Texture (Amanda-wound Skin Appearance) Assessed Scarring -Moisture (Amanda-wound Skin Appearance No Abnormality ) Assessed -Color (Amanda-wound Skin Appearance) No Abnormality Assessed -Temperature (Amanda-wound Skin No Abnormality Appearance) (Pt Warm) -Tenderness on Palpation (Amanda-wound No Skin Appearance) -Ulcer Cleansing Rinsed/ Irrigated with Saline -Foul Odor after Cleansing No -Anesthetic Used 4% Lidocaine Solution [Edema Assessment] -Lower Limb Edema Present No WC - Nurse 2 - General Ulcer CM Notes Start: 08/07/18 08:54 Freq: Status: Active Protocol: Activity Type Activity Date Activity User E-Sign Co-Sign Detail Recorded Client Recorded Date Recorded By Document 08/14/18 09:17 MW [id number] 08/14/18 09:24 MW 08/14/18 09:17 Wound Center Nurse 2 [Procedure/Treatment] #7 sacrum -Time 09:17 -Correct Patient Yes -Correct Side, Site, Position Yes -Correct Procedure Yes -Procedure Performed Yes -Type of Procedure Debridement -Clinical Debridement Subcutaneous -Post Debridement Size (cm) - Length 2.3 -Post Debridement Size (cm) - Width 5.7 -Post Debridement Size (cm) - Depth 3.0 -Total Square Cm 13.11 -Wound/Ulcer Outcome Not Healed -Ulcer Cleansing Rinsed/ Irrigated with Saline -Foul Odor after Cleansing No -Bleeding Controlled with Pressure -Offloading No -Treatment Response Procedure Tolerated Well [See Physician Procedure note for Specifics] Pain Scale: 0-10 Numeric [Pain] -Is Patient Pain Free? Yes Musculoskeletal: No Muscle Wasting Neurological: Cranial nerves II-XII grossly intact Psych/Mental Status: Normal Affect Debridement Note Post-Debridement Measurements/Treatment WC - Nurse 2 - General Ulcer CM Notes Start: 08/07/18 08:54 Freq: Status: Active Protocol: Activity Type Activity Date Activity User E-Sign Co-Sign Detail Recorded Client Recorded Date Recorded By Document 08/07/18 09:21 MW [id number] 08/07/18 09:23 MW Document 08/14/18 09:17 MW [id number] 08/14/18 09:24 MW 08/07/18 08/14/18 09:21 09:17 Wound Center Nurse 2 #7 sacrum -Time 09: 09:17 -Correct Patient Yes Yes -Correct Side, Site, Position Yes Yes -Correct Procedure Yes Yes -Procedure Performed Yes Yes -Type of Procedure Debridement Debridement -Clinical Debridement Subcutaneous Subcutaneous -Post Debridement Size (cm) - Length 2.9 2.3 -Post Debridement Size (cm) - Width 6.5 5.7 -Post Debridement Size (cm) - Depth 2.4 3.0 -Total Square Cm 18.85 13.11 -Wound/Ulcer Outcome Not Healed Not Healed -Ulcer Cleansing Rinsed/ Rinsed/ Irrigated with Irrigated with Saline Saline -Foul Odor after Cleansing No No -Bioengineered Tissue No -Bleeding Controlled with Pressure Pressure -Offloading No No -Treatment Response Procedure Procedure Tolerated Well Tolerated Well Pain Scale: 0-10 Numeric Is Patient Pain Free? Yes Yes Wound debrided: Sacral ulcer Wound Grade/Stage: Stage IV Type of Debridement: Excisional debridement Anesthesia Used: 4% Lidocaine Solution Depth: Down to and including healthy tissue, in the subcutaneous layer Percentage of wound debrided: 100 Instrument Used: 7mm curette Tissue Removed: Slough and devitalized tissue Severity: Fat Layer Exposed Amount of bleeding with debridement: Mild Bleeding Controlled with: Pressure Patient tolerated procedure well Assessment/Plan Active Problems (Last Reviewed 05/16/18 @ 14:58 by Raúl Villareal DO) Non-healing surgical wound (Chronic) Pressure ulcer of sacral region, stage 4 (Chronic) Assessment: 1. Sacral pressure sore, Stage IV. 2. Surgical wound post debridement of sacral pressure ulcer. 3. s/p repair colovaginal fistula. Plan: Brownish discharge noted. Also still significantly hypergranulated. Debridement done as documented above, procedure was well tolerated. Cultures taken. Will hold off wound vac for now. May resume after follow up with Dr. Hansen if indicated. Fibrocol for now. Change every other day due to home health. Advised to call with any questions or concerns. Scheduled to follow-up with Dr. Hansen here again on the 19 of August. All her questions were answered and she was asked to call with any further questions or concerns. Follow-up in 1 week. This note was generated with [email or web address] software. It may contain incorrect words, spelling, and punctuation that were not noted in checking the note before signing.
[2018-08-19 08:22] VITALS: BP 150/75; PULSE 87; RESP 18; TEMP 36; BMI 34.8
--- NOTE | 2018-08-19 11:03 | PCM.WC.PN ---
Type of Wound Date of Service: 08/19/18 Chief Complaint: Sacral pressure sore, Stage IV. History of Wound: Surgery 05/14/18 - Excision sacral pressure sore, Stage IV, with partial ostectomy for osteomyelitis. Wound care - VAC. Operative culture - Staphylococcus epidermidis and Corynebacterium minutissimum in the soft tissue and Corynebacterium minutissimum in the bone. She finished IV Vancomycin for 6 weeks. Pathology was positive for osteomyelitis. Prealbumin from 05/29/18 was 22.0. Encourage nutritional supplementation with protein to help the healing process. CT Pelvis from 05/16/18 showed the skin soft tissue defect overlying the distal portion of the sacrum as progressed. The defect abuts the sacral bone although there is no evidence of bony destruction at this time. Today she denies fever. Her appetite is ok. She has some concerns about increasing pain and some drainage. She states the pressure on the VAC was decreased secondary to pain. Progress of Wound: Improving as the dimensions are getting smaller. However there is increased hypergranulation tissue at the base that is impeding healing. - Physical Exam Vital Signs Temp Pulse Resp BP 96.8 F L 87 18 150/75 H 08/19/18 08:22 08/19/18 08:22 08/19/18 08:22 08/19/18 08:22 Wound Measurements and Assessment WC - Nurse 1 - General Ulcer Measurement Start: 08/07/18 08:54 Freq: Status: Active Protocol: Activity Type Activity Date Activity User E-Sign Co-Sign Detail Recorded Client Recorded Date Recorded By Document 08/19/18 08:22 AN [id number] 08/19/18 08:35 AN 08/19/18 08:22 Wound Center Nurse 1 [Ulcer Assessment] #7 sacrum -Current Size (cm) - Length 2.2 -Current Size (cm) - Width 5.4 -Current Size (cm) - Depth 3.4 -Total Square Cm 11.88 -Photo Taken No -Tunneling Position (O'clock) 4 -Tunneling Distance (cm) 4 -Tunneling Position #2 (O'clock) 7 -Tunneling Distance #2 (cm) 6 -Maximum Distance #2 (cm) 6 -Circular Undermining Yes -Exudate Amt Medium -Exudate Type Serosanguineous -Wound Margin Distinct, Outline Attached -Granulation Amt Large (67-100%) -Granulation Quality Hyper- granulation [place] Red -Slough/Fibrin Yes -Necrosis Amt Small (1-33%) -Necrotic Tissue Type Adherent Slough -Structure Exposed N/A -Texture (Amanda-wound Skin Appearance) Scarring -Moisture (Amanda-wound Skin Appearance No Abnormality ) -Color (Amanda-wound Skin Appearance) Rubor -Temperature (Amanda-wound Skin No Abnormality Appearance) (Pt Warm) -Tenderness on Palpation (Amanda-wound Yes Skin Appearance) -Ulcer Cleansing Wound Cleanser -Foul Odor after Cleansing No -Anesthetic Used 4% Lidocaine Solution - Nurse 2 - General Ulcer CM Notes Start: 08/07/18 08:54 Freq: Status: Active Protocol: Activity Type Activity Date Activity User E-Sign Co-Sign Detail Recorded Client Recorded Date Recorded By Document 08/19/18 09:13 [id number] 08/19/18 09:15 08/19/18 09:13 Wound Center Nurse 2 [Procedure/Treatment] -Time 09:14 -Correct Patient Yes -Correct Side, Site, Position Yes -Correct Procedure Yes -Procedure Performed Yes -Type of Procedure Debridement -Clinical Debridement Muscle -Post Debridement Size (cm) - Length 2.2 -Post Debridement Size (cm) - Width 5.5 -Post Debridement Size (cm) - Depth 3.5 -Total Square Cm 12.10 -Wound/Ulcer Outcome Not Healed -Ulcer Cleansing Rinsed/ Irrigated with Saline -Foul Odor after Cleansing No -Bioengineered Tissue No -Bleeding Controlled with Pressure -Offloading No -Treatment Response Procedure Tolerated Well [See Physician Procedure note for Specifics] Pain Scale: 0-10 Numeric [Pain] -Is Patient Pain Free? Yes Debridement Note Post-Debridement Measurements/Treatment - Nurse 2 - General Ulcer CM Notes Start: 08/07/18 08:54 Freq: Status: Active Protocol: Activity Type Activity Date Activity User E-Sign Co-Sign Detail Recorded Client Recorded Date Recorded By Document 08/07/18 09:21 MW [id number] 08/07/18 09:23 MW Document 08/14/18 09:17 MW [id number] 08/14/18 09:24 MW Document 08/19/18 09:13 [id number] 08/19/18 09:15 JF 08/07/18 08/14/18 08/19/18 09:21 09:17 09:13 Wound Center Nurse 2 #7 sacrum -Time : 09:17 09:14 -Correct Patient Yes Yes Yes -Correct Side, Site, Position Yes Yes Yes -Correct Procedure Yes Yes Yes -Procedure Performed Yes Yes Yes -Type of Procedure Debridement Debridement Debridement -Clinical Debridement Subcutaneous Subcutaneous Muscle -Post Debridement Size (cm) - Length 2.9 2.3 2.2 -Post Debridement Size (cm) - Width 6.5 5.7 5.5 -Post Debridement Size (cm) - Depth 2.4 3.0 3.5 -Total Square Cm 18.85 13.11 12.10 -Wound/Ulcer Outcome Not Healed Not Healed Not Healed -Ulcer Cleansing Rinsed/ Rinsed/ Rinsed/ Irrigated with Irrigated with Irrigated with Saline Saline Saline -Foul Odor after Cleansing No No No -Bioengineered Tissue No No -Bleeding Controlled with Pressure Pressure Pressure Silver Nitrate -Offloading No No No -Treatment Response Procedure Procedure Procedure Tolerated Well Tolerated Well Tolerated Well Pain Scale: 0-10 Numeric Is Patient Pain Free? Yes Yes Yes Wound debrided: #7 Sacral area. Laterality: Not Applicable Wound Grade/Stage: IV. Type of Debridement: Excisional debridement Anesthesia Used: 4% Lidocaine Solution Depth: Down to and including healthy tissue, in the subcutaneous layer, to muscle, to bone - bone is palpable but not debrided. Percentage of wound debrided: 100 Instrument Used: 7mm curette Tissue Removed: subcutaneous tissue and muscle. Severity: Fat Layer Exposed - muscle is exposed. bone is palpable but not debrided. Amount of bleeding with debridement: Mild Bleeding Controlled with: Pressure, Silver Nitrate Patient tolerated procedure well Assessment/Plan Assessment: 1. Sacral pressure sore, Stage IV. 2. Osteomyelitis. 3. Severe hypergranulation tissue sacral ulcer. 4. s/p repair colovaginal fistula. 5. s/p excision sacral pressure sore, Stage IV, with partial ostectomy for osteomyelitis. Plan: Continue the VAC. To be changed three times per week at 150 mmHg continuous suction. The severe hypergranulation tissue is suspect to issues with the VAC. There may have been issues with the suction that wasn't severe enough to cause an alarm but can lead to fluid buildup and hypergranulation tissue growth. Combined with the increased pain the patient had, the pressure was decreased which also contributed to increased drainage that leaked out according to the patient. With the hypergranulation tissue growth, it decreases the ability of the VAC to work. She is done with the IV Vancomycin. Prealbumin from 05/29/18 was 22.0. Encourage nutritional supplementation with protein to help the healing process. She can benefit from HBO treatments for her osteomyelitis. She was interested in the HBO treatments. However have to wait 4 months for a diagnosis of chronic refractory osteomyelitis. So in September, will order another CT Pelvis to evaluate that. Discussed with the patient that she will probably need further operative excision to remove the severe hypergranulation tissue. I don't see any sustained improvement in healing in the future unless the hypergranulation tissue decreases. One way is more consistent suction with the VAC and to apply Silver nitrate chemical cauterization whenever possible to help stunt further growth. Surgery will be under general anesthesia with a surgical observation overnight stay in the hospital. She understands the necessity of further surgery and wishes to proceed. Patient was informed of the risks and complications of the procedure including alternatives to surgery. These were discussed with her personally. She voices understanding and wishes to proceed. Followup one week to see Dora, Nurse Practitioner then she can see Dr. Santiago after that. Followup one month to see me.
[2018-08-26 09:54] VITALS: BP 144/79; PULSE 91; RESP 16; TEMP 36.4; BMI 34.8
--- NOTE | 2018-08-26 12:00 | PCM.WC.PN ---
(1) Pressure ulcer of sacral region, stage 4 Status: Chronic Current Visit: Yes Code(s): L89.154 - Pressure ulcer of sacral region, stage 4 (2) Acute osteomyelitis of sacrum Status: Chronic Current Visit: Yes Code(s): M46.28 - Osteomyelitis of vertebra, sacral and sacrococcygeal region (3) Hypergranulation Status: Acute Current Visit: Yes Code(s): L92.9 - Granulomatous disorder of the skin and subcutaneous tissue, unspecified (4) Morbid obesity with BMI of 40.0-44.9, adult Status: Chronic Current Visit: Yes Code(s): E66.01 - Morbid (severe) obesity due to excess calories; Z68.41 - Body mass index (BMI) 40.0-44.9, adult (5) Neuropathy Status: Chronic Current Visit: Yes Code(s): G62.9 - Polyneuropathy, unspecified (6) Constipation Status: Chronic Current Visit: Yes Code(s): K59.00 - Constipation, unspecified Type of Wound Date of Service: 08/26/18 Chief Complaint: Sacral pressure sore, Stage IV. History of Wound: Surgery 05/14/18 - Excision sacral pressure sore, Stage IV, with partial ostectomy for osteomyelitis. Wound care - VAC. Operative culture - Staphylococcus epidermidis and Corynebacterium minutissimum in the soft tissue and Corynebacterium minutissimum in the bone. She finished IV Vancomycin for 6 weeks. Pathology was positive for osteomyelitis. Prealbumin from 05/29/18 was 22.0. Encourage nutritional supplementation with protein to help the healing process. CT Pelvis from 05/16/18 showed the skin soft tissue defect overlying the distal portion of the sacrum as progressed. The defect abuts the sacral bone although there is no evidence of bony destruction at this time. Today she denies fever. Her appetite is ok. She has some concerns about increasing pain and some drainage. She is tolerating the wound VAC at the higher setting. Progress of Wound: Improving as the dimensions are getting smaller. However there is increased hypergranulation tissue at the base that is impeding healing. - Physical Exam Vital Signs Temp Pulse Resp BP 97.5 F L 91 16 144/79 H 08/26/18 09:54 08/26/18 09:54 08/26/18 09:54 08/26/18 09:54 General: Alert, Oriented x3, Cooperative HEENT: Atraumatic Oral: Moist Mucosa Lungs: Normal air movement Cardiovascular: Regular rate Extremities: No edema, Capillary Refill Less than 3 Seconds Skin: Ulcer/ Wound - Stage IV sacral ulcer Wound Measurements and Assessment - Nurse 1 - General Ulcer Measurement Start: 08/07/18 08:54 Freq: Status: Active Protocol: Activity Type Activity Date Activity User E-Sign Co-Sign Detail Recorded Client Recorded Date Recorded By Document 08/26/18 09:54 [facility] [id number] 08/26/18 10:05 [facility] 08/26/18 09:54 Wound Center Nurse 1 [Ulcer Assessment] #7 sacrum -Combined with other wound No -Current Size (cm) - Length 1.9 -Current Size (cm) - Width 4.7 -Current Size (cm) - Depth 2.5 -Total Square Cm 8.93 -Photo Taken No -Epithelialization None Present -Tunneling No -Undermining/Tunneling Yes -Undermining/Tunneling Starts (O' 12 clock) -Undermining/Tunneling Ends (O'clock) 12 -Maximum Distance (cm) 4.6 -Circular Undermining Yes -Exudate Amt Large -Exudate Type Serosanguineous -Wound Margin Distinct, Outline Attached -Granulation Amt Large (67-100%) -Granulation Quality Red -Slough/Fibrin No -Necrosis Amt None Present (0 %) -Texture (Amanda-wound Skin Appearance) Scarring -Moisture (Amanda-wound Skin Appearance Assessed ) -Color (Amanda-wound Skin Appearance) Assessed -Temperature (Amanda-wound Skin No Abnormality Appearance) (Pt Warm) -Tenderness on Palpation (Amanda-wound No Skin Appearance) -Ulcer Cleansing Wound Cleanser -Foul Odor after Cleansing No -Anesthetic Used 4% Lidocaine Solution - Nurse 2 - General Ulcer CM Notes Start: 08/07/18 08:54 Freq: Status: Active Protocol: Activity Type Activity Date Activity User E-Sign Co-Sign Detail Recorded Client Recorded Date Recorded By Document 08/26/18 10:17 [id number] 08/26/18 10:22 SHIRA 08/26/18 10:17 Wound Center Nurse 2 [Procedure/Treatment] -Time 10:19 -Correct Patient Yes -Correct Side, Site, Position Yes -Correct Procedure Yes -Procedure Performed Yes -Type of Procedure Debridement -Clinical Debridement Muscle -Post Debridement Size (cm) - Length 2.0 -Post Debridement Size (cm) - Width 5.2 -Post Debridement Size (cm) - Depth 3.1 -Total Square Cm 10.40 -Wound/Ulcer Outcome Not Healed -Ulcer Cleansing Rinsed/ Irrigated with Saline -Foul Odor after Cleansing No -Bioengineered Tissue No -Bleeding Controlled with Pressure -Other 9:00-5.1cm 2:00 -4.5cm, 6:00-3. 3cm, 12:00-4. 5cm -Offloading No -Treatment Response Procedure Tolerated Well [See Physician Procedure note for Specifics] Pain Scale: 0-10 Numeric [Pain] -Is Patient Pain Free? Yes Musculoskeletal: No Tenderness to Palpation of Joints or Extremities Neurological: Neuro grossly intact Psych/Mental Status: Normal Affect, Appropriate Debridement Note Post-Debridement Measurements/Treatment WC - Nurse 2 - General Ulcer CM Notes Start: 08/07/18 08:54 Freq: Status: Active Protocol: Activity Type Activity Date Activity User E-Sign Co-Sign Detail Recorded Client Recorded Date Recorded By Document 08/07/18 09:21 MW [id number] 08/07/18 09:23 MW Document 08/14/18 09:17 MW [id number] 08/14/18 09:24 MW Document 08/19/18 09:13 JF [id number] 08/19/18 09:15 JF Document 08/26/18 10:17 JF [id number] 08/26/18 10:22 08/07/18 08/14/18 08/19/18 09:21 09:17 09:13 Wound Center Nurse 2 #7 sacrum -Time 09:21 09:17 09:14 -Correct Patient Yes Yes Yes -Correct Side, Site, Position Yes Yes Yes -Correct Procedure Yes Yes Yes -Procedure Performed Yes Yes Yes -Type of Procedure Debridement Debridement Debridement -Clinical Debridement Subcutaneous Subcutaneous Muscle -Post Debridement Size (cm) - Length 2.9 2.3 2.2 -Post Debridement Size (cm) - Width 6.5 5.7 5.5 -Post Debridement Size (cm) - Depth 2.4 3.0 3.5 -Total Square Cm 18.85 13.11 12.10 -Wound/Ulcer Outcome Not Healed Not Healed Not Healed -Ulcer Cleansing Rinsed/ Rinsed/ Rinsed/ Irrigated with Irrigated with Irrigated with Saline Saline Saline -Foul Odor after Cleansing No No No -Bioengineered Tissue No No -Bleeding Controlled with Pressure Pressure Pressure -Other -Offloading No No No -Treatment Response Procedure Procedure Procedure Tolerated Well Tolerated Well Tolerated Well Pain Scale: 0-10 Numeric Is Patient Pain Free? Yes Yes Yes 08/26/18 10:17 Wound Center Nurse 2 #7 sacrum -Time 10:19 -Correct Patient Yes -Correct Side, Site, Position Yes -Correct Procedure Yes -Procedure Performed Yes -Type of Procedure Debridement -Clinical Debridement Muscle -Post Debridement Size (cm) - Length 2.0 -Post Debridement Size (cm) - Width 5.2 -Post Debridement Size (cm) - Depth 3.1 -Total Square Cm 10.40 -Wound/Ulcer Outcome Not Healed -Ulcer Cleansing Rinsed/ Irrigated with Saline -Foul Odor after Cleansing No -Bioengineered Tissue No -Bleeding Controlled with Pressure -Other 9:00-5.1cm 2:00 -4.5cm, 6:00-3. 3cm, 12:00-4. 5cm -Offloading No -Treatment Response Procedure Tolerated Well Pain Scale: 0-10 Numeric Is Patient Pain Free? Yes Wound debrided: Sacral ulcer Laterality: Not Applicable Type of Debridement: Excisional debridement Anesthesia Used: 4% Lidocaine Solution Depth: Down to and including healthy tissue, in the subcutaneous layer, to muscle Percentage of wound debrided: 100 Instrument Used: 7mm curette Tissue Removed: Subcutaneous tissue and slough Amount of bleeding with debridement: Mild Bleeding Controlled with: Pressure, Compression and gauze Patient tolerated procedure well Assessment/Plan Active Problems (Last Reviewed 05/16/18 @ 14:58 by Raúl Villareal DO) Constipation (Chronic) Hypergranulation (Acute) Acute osteomyelitis of sacrum (Chronic) Morbid obesity with BMI of 40.0-44.9, adult (Chronic) Pressure ulcer of sacral region, stage 4 (Chronic) Neuropathy (Chronic) Assessment: 1. Sacral pressure sore, Stage IV. 2. Osteomyelitis. 3. Severe hypergranulation tissue sacral ulcer. 4. s/p repair colovaginal fistula. 5. s/p excision sacral pressure sore, Stage IV, with partial ostectomy for osteomyelitis. Plan: Continue the VAC. To be changed three times per week at 150 mmHg continuous suction. The severe hypergranulation tissue is suspect to issues with the VAC. There may have been issues with the suction that wasn't severe enough to cause an alarm but can lead to fluid buildup and hypergranulation tissue growth. Combined with the increased pain the patient had, the pressure was decreased which also contributed to increased drainage that leaked out according to the patient. With the hypergranulation tissue growth, it decreases the ability of the VAC to work. She is done with the IV Vancomycin. Prealbumin from 05/29/18 was 22.0. Encourage nutritional supplementation with protein to help the healing process. She can benefit from HBO treatments for her osteomyelitis. She was interested in the HBO treatments. However have to wait 4 months for a diagnosis of chronic refractory osteomyelitis. So in September, will order another CT Pelvis to evaluate that. Discussed with the patient that she will probably need further operative excision to remove the severe hypergranulation tissue. Patient is willing to have a surgical debridement to remove the hypergranulation. I will speak with Dr. Hansen about scheduling her for surgery. Surgery will be under general anesthesia with a surgical observation overnight stay in the hospital. She understands the necessity of further surgery and wishes to proceed. Patient was informed of the risks and complications of the procedure including alternatives to surgery. These were discussed with her personally. She voices understanding and wishes to proceed. Did discuss her constipation concern. Instructed her to start colace or mirilax daily to help soften stools. Followup one week with Dr. Santiago. Follow up with Dr. Hansen in 3 weeks unless she is scheduled for surgery before then. Code Visit [id number]: [id number] Magalys musc/fascia 20 sq cm/<
== END 2018-09-01 23:59 ==
LOC: WC 09:45
PROVIDERS: Family Provider Family Medicine Geriatric Medicine; PCP Family Medicine Geriatric Medicine; Visit Provider Internal Medicine
DX: L89.154 Pressure ulcer of sacral region, stage 4 (principal); T81.89XA Other complications of procedures, not elsewhere classified, initial encounter; Y83.8 Other surgical procedures as the cause of abnormal reaction of the patient, or of later complication, without mention of misadventure at the time of the procedure; E66.01 Morbid (severe) obesity due to excess calories; Z68.41 Body mass index [BMI] 40.0-44.9, adult; Z71.3 Dietary counseling and surveillance; G62.9 Polyneuropathy, unspecified
CPT/HCPCS: 11042; 11043; 97605

== ENCOUNTER 2018-09-09 10:42 | Inpatient (IN) | payer MEDICARE, OTHER, SELFPAY ==
[2018-09-04 08:53] VITALS: BMI 34.8
--- NOTE | 2018-09-08 21:43 | PCM.HP.BLA ---
History and Physical Date of Admission: 09/09/18 HISTORY OF PRESENT ILLNESS 68 year old woman presents for further operative excision of her sacral pressure sore because of the development of severe hypergranulation tissue. Wound care is hampered with the VAC because of the hypergranulation tissue. After her last excision of her sacral pressure sore in 05/21, her bone pathology was positive for osteomyelitis. Her bone culture was positive for corynebacterium minutissimum and Staphylococcus epidermidis. She received IV Vancomycin for 6 weeks. At the time of her pressure sore, she was found to have a colovaginal fistula that was surgically repaired in 12/19 at [facility]. PAST MEDICAL HISTORY Depression. GERD. Colovaginal fistula. Hypertension. Hypothyroidism. Neuropathy. Osteomyelitis. Anxiety. Anemia. Atrial fibrillation. Back pain. PAST SURGICAL HISTORY Hysterectomy. Uterine ablation. D&C. Excision of sacral pressure sore - 04/20 Repair of colovaginal fistula - 12/19 Excision sacral pressure sore, Stage IV, with partial ostectomy for osteomyelitis - 05/14/18 MEDICATIONS Vitamin C. Aspirin. Vitamin D3. Synthroid. Omeprazole. K-dur. Neurontin. Iron supplement. Protein shakes. Linzess. Fish oil. ALLERGIES Bee venom. Skelaxin. FAMILY HISTORY Positive for COPD, Lung cancer, Myocardial infarction. SOCIAL HISTORY Patient is a former smoker. Patient does not drink alcohol. REVIEW OF SYSTEMS General - Denies fever, fatigue, and weight loss. Eyes - Denies cataracts and glaucoma. ENT - Denies nasal congestion and sore throat. Endocrine - Denies excessive thirst and urination. Skin - Denies suspicious lesions and skin cancer. Has sacral pressure sore. Musculoskeletal - Denies joint pain, joint stiffness, weakness of muscles and joints, back pain, and arthritis. Neuro - Denies headaches. Cardiovascular - Denies chest pain, fatigue, and shortness of breath with exertion. Psych - Denies anxiety. Has depression. Respiratory - Denies chronic cough and shortness of breath. Gastrointestinal - Denies nausea, vomiting, diarrhea, and constipation. had repair colovaginal fistula. Hematologic - Denies abnormal bruising and bleeding. Genitourinary - Denies hematuria and urinary frequency. PHYSICAL EXAMINATION General - Alert and Oriented HEENT - PERRL. EOMI. Throat is clear. Neck - Supple and nontender. No cervical adenopathy. Lungs - Clear to auscultation. Heart - Regular rate and rhythm. Abdomen - Soft and nondistended. Extremities - FROM. No axillary adenopathy. Radial pulses are palpable. Back - On the sacral area is a pressure sore that has severe hypergranulation tissue. Bone is palpable but not exposed. It is a Stage IV. Measures 5.5 x 2.5 x 3 cm. There is some circular undermining measuring about 4 cm. Some abnormal scar tissue seen. No fluctuance or purulent drainage noted. Neuro - CN II-XII grossly intact. Psych - Normal mood and affect. ASSESSMENT 1. Sacral pressure sore, Stage IV. 2. Osteomyelitis. 3. s/p repair colovaginal fistula. 4. Severe hypergranulation tissue sacral pressure sore. PLAN Currently she has the VAC NPWT for the sacral pressure sore. Patient has developed severe hypergranulation tissue in the sacral pressure sore which is hindering the healing process. Patient states she has had issues with the VAC with pain and with the suction. Suction issues can lead to fluid buildup and hypergranulation tissue growth. Combined with the increased pain the patient had, the pressure was decreased which also contributed to increased drainage that leaked out according to the patient. With the hypergranulation tissue growth, it decreases the ability of the VAC to work. Because of this severe hypergranulation tissue growth, it was recommended to proceed with operative intervention with excision of the pressure sore and associated hypergranulation tissue to give the VAC a better chance to work. Because of her recent diagnosis of osteomyelitis, besides excising the soft tissue, will also proceed with a partial ostectomy for osteomyelitis. Surgery will be under general anesthesia with a surgical observation overnight stay in the hospital. She understands the necessity of further surgery and wishes to proceed. Patient was informed of the risks and complications of the procedure including alternatives to surgery. These were discussed with her personally. She voices understanding and wishes to proceed. During the hospitalization, another CT Pelvis will be done to also evaluate for osteomyelitis. Her initial diagnosis of osteomyelitis was in 05/21. We have to wait 4 months to qualify for chronic refractory osteomyelitis at which time she would be a candidate for HBO treatments. The surgery is being done in 09/20, which is 4 months from the previous diagnosis of osteomyelitis in 05/21. At that time, she received Vancomycin IV for 6 weeks. Anticipate increased metabolic demands from the wound and the surgery. Will check a Prealbumin and encourage nutritional supplementation with protein to help the healing process. Tissue and bone will be sent to Pathology and Microbiology. A positive culture will necessitate antibiotic therapy. She understands the pressure sore will be made bigger in order to make the wound care easier with the VAC. With the amount of undermining, it is harder to heal because it is hard to pack the edges consistently because they are not visualized. If she continues to have healing issues with hypergranulation tissue, then will once again discuss wound closure with a fasciocutaneous flap. Flap surgery would necessitate 6 weeks of bedrest. Will discuss flap surgery at future Wound Center visits.
[2018-09-09] VITALS (10 sets, daily range): BP systolic 96–136; BP diastolic 44–99; PULSE 71–98; RESP 14–18; TEMP 36.5–37.2; O2SAT 93–97; BMI 36.0
[2018-09-09 07:57] LABS: Hematocrit 40.6 % (37-47); Hemoglobin 12.6 g/dl (12.0-15.0); Mean Corpuscular Hgb 25.8 pg (27.0-32.0); Mean Platelet Vol. 8.9 fl (6.2-12.0); Platelet Count 366 K/mm3 (150-450); RBC Distribution Width CV 15.4 % (11.6-14.6); RBC Distribution Width SD 46.2 fl (35.1-43.9); Red Blood Count 4.89 M/mm3 (4.2-5.4); White Blood Count 7.8 K/mm3 (4.4-11.0)
[2018-09-09 08:03] LABS: Scan Indicated on CBC? Y/N NO
[2018-09-09] MEDS: Vancomycin IV 1,000 MG/200 ML BAG 200 MG IV (08:10)
[2018-09-09 08:16] LABS: Anion Gap 4 (5-15); BUN 24 mg/dL (7-18); Chloride 108 mmol/L (98-107); EST Glomerular Filtration Rate 88 mL/min (>60); Est Glom Filt Rate - Afr Amer 106 mL/min (>60); Estimated Creatinine Clearance 47.14 ml/min; Glucose 95 mg/dL (74-106); Potassium 4.1 mmol/L (3.5-5.1); Sodium Level 138 mmol/L (136-145); Thyroid Stim Hormone (TSH) 2.09 uIU/mL (0.358-3.74)
--- NOTE | 2018-09-09 08:55 | BON_PTH ---
PATIENT: CHARISSA GUNTER LOC: [facility]2 U#:[id number] AGE/SX: 68/F ROOM: [facility] [place] RE09/11/[address]: Dr. Regino Hansen MD : [id number] BED: 1 DIS: 09/12/2018 SPEC #: [id number] RECD: 09/09/18 11:07 STATUS: EUSEBIO REQ #: [id number] KATY: 09/09/18 08:[address]: Regino Hansen DEPT: SURGICAL PATHOLOGY RECD BY: Esvin Shine ENTERED: 09/09/18 13:23 SP TYPE: Bone OTHR DR: MD Dr. Chema Herndon Chi, MD Tissues: A - Sacrum, NOS B - Sacrum, NOS Procedures: Decalcification bone/plaque Surgery Specimen Level IV HEADER OPERATION: Excision, pressure sore, partial ostectomy, sacral stage IV PRE-OP DIAGNOSIS: Stage IV sacral pressure sore, osteomyelitis, severe hypergranulation tissue, sacral pressure sore TISSUE SUBMITTED: A - Soft tissue sacrum, B - Bone sacrum MICROSCOPIC DIAGNOSIS A. Skin and soft tissue of sacrum, excision: Ulceration with associated acute and chronic inflammation and granulation. B. Sacrum bone, biopsy: Trilineage hematopoiesis. No evidence of acute osteomyelitis. Consistent with chronic change. AM:andrew 09/12/18 MICROSCOPIC DESCRIPTION Slides are reviewed. GROSS DESCRIPTION A - Received in fixative is one container labeled with the patient's name and designated soft tissue sacrum. The specimen consists of five variable sized pieces of skin with underlying tissue that in aggregate measure 13 x 9 x 3 cm. The skin surface shows area of ulceration. [employer] Developer sections are submitted in three cassettes. B - Received in fixative is one container labeled with the patient's name and designated bone sacrum. The specimen consists of multiple pieces of bone that in aggregate measure 3 x 2.5 x 0.5 cm. The entire specimen is submitted in two cassettes after decalcification. / SJ:andrew 09/09/18 TC:2 CPT: 72408 x2, [id number]
--- NOTE | 2018-09-09 10:39 | OP.PCM_ITS ---
Report of Operation Date of Procedure: 09/09/18 Pre-Operative Diagnosis: 1. Sacral pressure sore, Stage IV. 2. Osteomyelitis. 3. s/p repair colovaginal fistula. 4. Severe hypergranulation tissue sacral pressure sore. Post-Operative Diagnosis: Same. Surgery/Procedure Performed:: Excision sacral pressure sore, Stage IV, with partial ostectomy for osteomyelitis. Description of Surgical Findings:: 68 year old woman presents for further operative excision of her sacral pressure sore because of the development of severe hypergranulation tissue. Wound care is hampered with the VAC because of the hypergranulation tissue. After her last excision of her sacral pressure sore in 05/21, her bone pathology was positive for osteomyelitis. Her bone culture was positive for corynebacterium minutissimum and Staphylococcus epidermidis. She received IV Vancomycin for 6 weeks. At the time of her pressure sore, she was found to have a colovaginal fistula that was surgically repaired in 12/19 at [facility]. Patient was informed of the risks and complications of the procedure including alternatives to surgery. These were discussed with the patient personally. Patient voices understanding and wishes to proceed. Size of defect sacral area - 13 x 7 x 3 cm. 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 Sacral pressure sore soft tissue to Pathology and Microbiology. 2. Sacral pressure sore bone to Pathology and Microbiology. Drains: None. Estimated Blood Loss (mL): 150 ml. Fluids Replaced: 1125 ml (IV Fluids 1000 ml, Urine Output 125 ml). Description of Procedure: Patient was taken to OR in supine position and was placed under general anesthesia. She was then placed in the prone position. The sacral area was prepped and draped in the usual fashion. SCD's were placed for DVT prophylaxis. Perioperative antibiotics were given intravenously. Using xylocaine with epinephrine, the sacral pressure sore was infiltrated. After waiting 5 minutes for the anesthetic to take effect, I excised the sacral pressure sore in a circular fashion to include the undermined areas as well. Dissection was carried down into the subcutaneous tissue through the scarred muscle which was adherent to the underlying bone. The severe hypergranulation tissue was also excised as it was also adherent to the underlying bone. A partial ostectomy was then performed using rongeurs. The bone looked grayish and was not very hard. Clinically the bone looked suspicious for osteomyelitis. A rasp was used to smooth out the bony edges. After excising the abnormal bursal scar tissue, the remaining soft tissue showed good bleeding. Hemostasis was obtained with electrocautery. The size of the sacral pressure sore after excision was 13 x 7 x 3 cm. Bone wax was needed to help with hemostasis of the raw bryon edges. The wound was irrigated with saline. I then dressed the wound with Mepitel nonadherent dressing followed by Kerlix gauze and Betadine and dry Kerlix gauze followed by ABD pads compression dressing. Half the soft tissue and half the bone was sent to Pathology for analysis to rule out carcinoma and to evaluate for osteomyelitis. Half the soft tissue and half the bone was sent to Microbiology for culture. A positive culture may necessitate antibiotic modification. 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 She would also be [facility] for [facility] treatments. Patient tolerated the procedure well and was sent to PACU in satisfactory condition. Patient will be sent upstairs for continued postop care. The VAC will be placed tomorrow. Anticipate increased metabolic demands. Will check a Prealbumin and encourage nutritional supplementation with protein to help the healing process. Grafts/Implants Used: None. - Complications None. - Admit VTE Documentation VTE Present on Admission: No VTE Mechan Device Prophylaxis: SCD's VTE Pharm Prophylaxis ordered?: Yes Code Visit Surgery Charges CPT - 99503 ICD-10 - L89.154, M46.28, L92.9
--- NOTE | 2018-09-09 12:15 | PCM.PN.HOSP ---
Subjective: Patient is a 68-year-old female with past medical history of hypothyroidism and decubitus ulcers. She was admitted by plastic surgery for debridement of decubitus ulcers on account of hyper granulation tissue. She had a procedure on 09/09/2018 and hospitalist service was consulted for medical management. Vitals/I&O's: Vital Signs Temp Pulse Resp BP Pulse Ox 97.7 F L 71 16 109/51 L 93 09/09/18 11:57 09/09/18 11:57 09/09/18 11:57 09/09/18 11:57 09/09/18 11:57 Oxygen Flow Rate (L/min) 2 Oxygen Delivery Method Nasal Cannula Weight: 209 lb 14.081 oz Body Mass Index (BMI) 36.0 Intake and Output for Last 24 Hours 09/07/18 09/08/18 09/09/18 23:59 23:59 23:59 Intake Total 1300 / 1300 Output Total 225 / 225 Balance 1075 / 1075 Laboratory Results 09/09/18 07:46: WBC 7.8, RBC 4.89, Hgb 12.6, Hct 40.6, MCV 83.0, MCH 25.8 L, MCHC 31.0 L, RDW 15.4 H, RDW Differential 46.2 H, Plt Count 366, MPV 8.9 09/09/18 07:46: PT 13.0, INR 1.0, APTT 35.0 09/09/18 07:46: Sodium 138, Potassium 4.1, Chloride 108 H, Carbon Dioxide 26.0, Anion Gap 4 L, BUN 24 H, Creatinine 0.70, Estim Creat Clear Calc 47.14, Est GFR (MDRD) Af Amer 106, Est GFR (MDRD) Non-Af 88, BUN/Creatinine Ratio 34.0 H, Glucose 95, Calcium 9.0, TSH 2.09 Current Medications Acetaminophen (Tylenol) 500 mg PO Q4H PRN PRN PRN Reason: PAIN Ascorbic Acid (Vitamin C) 500 mg PO DAILY [facility] Docusate Sodium (Colace) 100 mg PO BID [facility] Gabapentin (Neurontin) 300 mg PO TIDCM [facility] Hydromorphone HCl (Dilaudid Inj) 1 mg IV Q4H PRN PRN PRN Reason: SEVERE PAIN (6-10/10) Vancomycin HCl (Vancomycin) 1,000 mg in 200 mls @ 200 mls/hr IV PREOP ONE Stop: 09/09/18 12:49 Last Admin: 09/09/18 08:10 Dose: 200 mls/hr Lactated Ringer's () 1,000 mls @ 60 mls/hr IV .[id number] [facility] Vancomycin IV Pharmacy to Dose (1 ea/ Sodium Chloride) 500 mls @ 250 mls/hr IV X1 PRN; Protocol PRN Reason: Rx to Dose Levothyroxine Sodium (Synthroid) 25 mcg PO DAILY@0600 [facility] Non-Formulary Medication (Cholecalciferol (Vitamin D3) [Vitamin D3]) 50,000 unit PO QMONTH [facility] Non-Formulary Medication (Linacolotide) 145 mcg PO DAILY PRN PRN Reason: Constipation Nutritional Formula (Teofilo - [place] Flavor) 1 packet PO BIDCM [facility] Nutritional Formula (Lactose Free) (Ensure Enlive) 120 ml PO 4X/DAY [facility] Ondansetron HCl (Zofran) 4 mg IV Q6H PRN PRN PRN Reason: NAUSEA Oxycodone HCl (Oxyir) 10 mg PO Q4H PRN PRN PRN Reason: SEVERE PAIN (6-10/10) Pantoprazole Sodium (Protonix) 40 mg PO DAILY@1400 [facility] Polysaccharide Iron Complex (Ferrex 150) 150 mg PO DAILYCM [facility] Potassium Chloride (K-Dur) 40 meq PO DAILY [facility] Promethazine HCl (Phenergan Tablet) 25 mg PO Q4H PRN PRN PRN Reason: NAUSEA/VOMITING Sodium Chloride () 5 - 15 ml IV UD PRN PRN Reason: SALINE FLUSH Medical Necessity - Tobacco Use Smoking Status: Former smoker Tobacco Use: Non-smoker Assessment/Plan All Active Problems (Last Reviewed 05/16/18 @ 14:58 by Raúl Villareal DO) Hypergranulation (Acute) Acute blood loss anemia (Acute) Preop cardiovascular exam (Acute) Colovaginal fistula (Acute) Failure to thrive (Acute) Clostridium difficile colitis (Acute) Septic shock (Resolved) VITO (acute kidney injury) (Resolved) Encephalopathy (Resolved) Atrial fibrillation with RVR (Resolved) Clostridium difficile infection (Resolved) Rhabdomyolysis (Resolved) 68 y/o female who is s/p debridement of decubitus ulcers due to hypergranulation 1. Sacral Decubitus ulcers s/p debridement decubitus ulcers present on admission plastic surgery on board; management as per plastic surgery 2. Hypothyroidism: On Synthroid. 3. Hypertension: says it is now diet controlled, and she has been off oral BP meds for the past year and half. WIll monitor 4. GERD and IBS: on Linzess DVT prophylaxis: heparin Thank you for the courtesy of the consult. We will continue to follow with you. Code Visit OBSV E&M: [id number] Subsequent observation care L2
--- NOTE | 2018-09-09 12:20 | PN_ITS ---
Subjective: Patient is a 68-year-old female with past medical history of hypothyroidism and decubitus ulcers. She was admitted by plastic surgery for debridement of decubitus ulcers on account of hyper granulation tissue. She had a procedure on 09/09/2018 and hospitalist service was consulted for medical management. Vitals/I&O's: Vital Signs Temp Pulse Resp BP Pulse Ox 97.7 F L 71 16 109/51 L 93 09/09/18 11:57 09/09/18 11:57 09/09/18 11:57 09/09/18 11:57 09/09/18 11:57 Oxygen Flow Rate (L/min) 2 Oxygen Delivery Method Nasal Cannula Weight: 209 lb 14.081 oz Body Mass Index (BMI) 36.0 Intake and Output for Last 24 Hours 09/07/18 09/08/18 09/09/18 23:59 23:59 23:59 Intake Total 1300 / 1300 Output Total 225 / 225 Balance 1075 / 1075 Laboratory Results 09/09/18 07:46: WBC 7.8, RBC 4.89, Hgb 12.6, Hct 40.6, MCV 83.0, MCH 25.8 L, MCHC 31.0 L, RDW 15.4 H, RDW Differential 46.2 H, Plt Count 366, MPV 8.9 09/09/18 07:46: PT 13.0, INR 1.0, APTT 35.0 09/09/18 07:46: Sodium 138, Potassium 4.1, Chloride 108 H, Carbon Dioxide 26.0, Anion Gap 4 L, BUN 24 H, Creatinine 0.70, Estim Creat Clear Calc 47.14, Est GFR (MDRD) Af Amer 106, Est GFR (MDRD) Non-Af 88, BUN/Creatinine Ratio 34.0 H, Glucose 95, Calcium 9.0, TSH 2.09 Current Medications Acetaminophen (Tylenol) 500 mg PO Q4H PRN PRN PRN Reason: PAIN Ascorbic Acid (Vitamin C) 500 mg PO DAILY [facility] Docusate Sodium (Colace) 100 mg PO BID [facility] Gabapentin (Neurontin) 300 mg PO TIDCM [facility] Hydromorphone HCl (Dilaudid Inj) 1 mg IV Q4H PRN PRN PRN Reason: SEVERE PAIN (6-10/10) Vancomycin HCl (Vancomycin) 1,000 mg in 200 mls @ 200 mls/hr IV PREOP ONE Stop: 09/09/18 12:49 Last Admin: 09/09/18 08:10 Dose: 200 mls/hr Lactated Ringer's () 1,000 mls @ 60 mls/hr IV .[id number] [facility] Vancomycin IV Pharmacy to Dose (1 ea/ Sodium Chloride) 500 mls @ 250 mls/hr IV X1 PRN; Protocol PRN Reason: Rx to Dose Levothyroxine Sodium (Synthroid) 25 mcg PO DAILY@0600 [facility] Non-Formulary Medication (Cholecalciferol (Vitamin D3) [Vitamin D3]) 50,000 unit PO QMONTH [facility] Non-Formulary Medication (Linacolotide) 145 mcg PO DAILY PRN PRN Reason: Constipation Nutritional Formula (Teofilo - [place] Flavor) 1 packet PO BIDCM [facility] Nutritional Formula (Lactose Free) (Ensure Enlive) 120 ml PO 4X/DAY [facility] Ondansetron HCl (Zofran) 4 mg IV Q6H PRN PRN PRN Reason: NAUSEA Oxycodone HCl (Oxyir) 10 mg PO Q4H PRN PRN PRN Reason: SEVERE PAIN (6-10/10) Pantoprazole Sodium (Protonix) 40 mg PO DAILY@1400 [facility] Polysaccharide Iron Complex (Ferrex 150) 150 mg PO DAILYCM [facility] Potassium Chloride (K-Dur) 40 meq PO DAILY [facility] Promethazine HCl (Phenergan Tablet) 25 mg PO Q4H PRN PRN PRN Reason: NAUSEA/VOMITING Sodium Chloride () 5 - 15 ml IV UD PRN PRN Reason: SALINE FLUSH Medical Necessity - Tobacco Use Smoking Status: Former smoker Tobacco Use: Non-smoker Assessment/Plan All Active Problems (Last Reviewed 05/16/18 @ 14:58 by Raúl Villareal DO) Hypergranulation (Acute) Acute blood loss anemia (Acute) Preop cardiovascular exam (Acute) Colovaginal fistula (Acute) Failure to thrive (Acute) Clostridium difficile colitis (Acute) Septic shock (Resolved) VITO (acute kidney injury) (Resolved) Encephalopathy (Resolved) Atrial fibrillation with RVR (Resolved) Clostridium difficile infection (Resolved) Rhabdomyolysis (Resolved) 68 y/o female who is s/p debridement of decubitus ulcers due to hypergranulation 1. Sacral Decubitus ulcers s/p debridement * decubitus ulcers present on admission * plastic surgery on board; management as per plastic surgery * 2. Hypothyroidism: On Synthroid. 3. Hypertension: says it is now diet controlled, and she has been off oral BP meds for the past year and half. WIll monitor 4. GERD and IBS: on Linzess DVT prophylaxis: heparin Thank you for the courtesy of the consult. We will continue to follow with you. Code Visit OBSV E&M: [id number] Subsequent observation care L2
--- NOTE | 2018-09-09 13:27 | PCM.RX.CS ---
Consult Pharmacy has been consulted to manage selected antiobiotic: Vancomycin Type of Consult: New start Suspected Infection: Osteomyelitis Prior Doses of Antibiotics Received/Current Regimen: vancomycin 1gm iv give preop 4.8.19 @0810. Labs: Sodium 138 mmol/L (136-145) 09/09/18 07:46 Potassium 4.1 mmol/L (3.5-5.1) 09/09/18 07:46 Chloride 108 mmol/L (98-107) H 09/09/18 07:46 Carbon Dioxide 26.0 mmol/L (21.0-32.0) 09/09/18 07:46 Anion Gap 4 (5-15) L 09/09/18 07:46 BUN 24 mg/dL (7-18) H 09/09/18 07:46 Creatinine 0.70 mg/dL (0.55-1.02) 09/09/18 07:46 Est GFR (MDRD) Af Amer 106 mL/min (>60) 09/09/18 07:46 Est GFR (MDRD) Non-Af 88 mL/min (>60) 09/09/18 07:46 BUN/Creatinine Ratio 34.0 RATIO (10-20) H 09/09/18 07:46 Glucose 95 mg/dL (74-106) 09/09/18 07:46 Weight used for dosin.2 kg Estimated Creatinine Clearance: ~47ml/min Goal Trough: 15-20 mcg/mL Pharmacy Plan for Drug Dosing: Renal function reviewed with values of Cr 0.7 and CrCl ~47ml/min. Will begin 750mg iv q12h. Vancomycin trough ordered for 09.10.18 before 4th dose of this regimen. Goal range is 15-20mcg/ml. Pharmacy Service will continue to monitor and adjust dosing as required. Follow-Up Labs: Trough Vancomycin - 4.9.19 @1930 before 2000 dose
[2018-09-09] MEDS: Pantoprazole Sodium 40 MG Tablet PO (13:55)
[2018-09-09] MEDS: Gabapentin 300 MG Capsule PO ×2 (13:55→18:09)
[2018-09-09] MEDS: Docusate Sodium 100 MG Capsule PO (21:36)
[2018-09-09] MEDS: Lactated Ringers 1,000 ML 60 ML IV (23:36)
[2018-09-10] MEDS: Acetaminophen 500 MG Tablet PO ×2 (00:31→11:29)
[2018-09-10 03:16] VITALS: BP 108/55; PULSE 92; RESP 18; TEMP 37.2; O2SAT 97
[2018-09-10] MEDS: Enoxaparin 40 MG/0.4 ML Syringe SC (05:42)
[2018-09-10] MEDS: Levothyroxine 25 MCG TABLET PO (05:42)
[2018-09-10 06:25] LABS: Hematocrit 35.6 % (37-47); Hemoglobin 11.1 g/dl (12.0-15.0); Mean Corp Hgb Conc 31.2 g/gl (32-36); Mean Corpuscular Hgb 25.9 pg (27.0-32.0); Mean Corpuscular Volume 83.2 fL (81-99); Mean Platelet Vol. 9.4 fl (6.2-12.0); Platelet Count 316 K/mm3 (150-450); RBC Distribution Width CV 15.4 % (11.6-14.6); Red Blood Count 4.28 M/mm3 (4.2-5.4); White Blood Count 11.8 K/mm3 (4.4-11.0)
[2018-09-10 06:31] LABS: Erythrocyte Sedimentation Rate 33 mm/hr (0-30); Scan Indicated on CBC? Y/N NO
[2018-09-10 06:37] LABS: ALB/GLOB Ratio 0.8 RATIO (0.9-2.4); AST(SGOT) 21 U/L (15-37); Alanine Aminotransfer ALT/SGPT 18 U/L (13-56); Albumin, Serum 2.7 g/dL (3.2-5.0); Alkaline Phosphatase 58 U/L (45-117); Anion Gap 5 (5-15); BUN 17 mg/dL (7-18); Calcium,Total 8.6 mg/dL (8.5-10.1); Chloride 109 mmol/L (98-107); Creatinine, Serum 0.68 mg/dL (0.55-1.02); EST Glomerular Filtration Rate 92 mL/min (>60); Est Glom Filt Rate - Afr Amer 111 mL/min (>60); Estimated Creatinine Clearance 47.14 ml/min; Globulin 3.4 g/dL (2.2-4.2); Glucose 99 mg/dL (74-106); Potassium 3.5 mmol/L (3.5-5.1); Prealbumin 18.1 mg/dL (20.0-40.0); Protein, Total 6.1 g/dL (6.4-8.2); Sodium Level 141 mmol/L (136-145)
--- NOTE | 2018-09-10 09:15 | PCM.PN.HOSP ---
Subjective: Patient seen and examined. She complains of mild back pain which is chronic. She denies any fever chills, palpitations or dizziness, chest pain, diarrhea vomiting. Review of systems otherwise negative. Labs and vitals reviewed. Vitals/I&O's: Vital Signs Temp Pulse Resp BP Pulse Ox 98.9 F 92 18 108/55 L 97 09/10/18 03:16 09/10/18 03:16 09/10/18 03:16 09/10/18 03:16 09/10/18 03:16 Oxygen Flow Rate (L/min) 2 Oxygen Delivery Method Nasal Cannula Weight: 209 lb 14.081 oz Body Mass Index (BMI) 36.0 Intake and Output for Last 24 Hours 09/08/18 09/09/18 09/10/18 23:59 23:59 23:59 Intake Total 2088 / 2088 1185 / 1185 Output Total 1175 / 1175 1800 / 1800 Balance 913 / 913 -615 / -615 General: Alert, Oriented x3, Cooperative, No apparent distress HEENT: Atraumatic, PERRLA, EOMI, Normocephalic Oral: Moist Mucosa Neck: Supple, No JVD, Negative Carotid Bruits Lungs: Clear to auscultation, Normal air movement, No rhonchi, No wheeze, No rales Cardiovascular: Regular rate, Regular Rhythm, Normal S1, Normal S2, No murmurs Abdomen: Bowel Sounds Present, Soft, Non Tender, Non-Distended, No Hepato-splenomegaly Extremities: No clubbing, No cyanosis, No edema, Capillary Refill Less than 3 Seconds Skin: - - dressing over sacral decubitus ulcer Musculoskeletal: No Tenderness to Palpation of Joints or Extremities Lymphatic: No Cervical, Supraclavicular, or Inguinal Adenopathy Neurological: Cranial nerves II-XII grossly intact, Neuro grossly intact Psych/Mental Status: Normal Affect, Appropriate, Alert and oriented to time, place, person, mood and affect Microbiology Past 72 Hours 09/09/18 11:05 Tissue - Sacral Gram Stain - Final 09/09/18 11:05 Bone - Buttock Gram Stain - Final Laboratory Results 09/10/18 05:32: WBC 11.8 H, RBC 4.28, Hgb 11.1 L, Hct 35.6 L, MCV 83.2, MCH 25.9 L, MCHC 31.2 L, RDW 15.4 H, RDW Differential 46.0 H, Plt Count 316, MPV 9.4, ESR 33 H 09/10/18 05:32: Sodium 141, Potassium 3.5, Chloride 109 H, Carbon Dioxide 27.0, Anion Gap 5, BUN 17, Creatinine 0.68, Estim Creat Clear Calc 47.14, Est GFR (MDRD) Af Amer 111, Est GFR (MDRD) Non-Af 92, BUN/Creatinine Ratio 25.0 H, Glucose 99, Calcium 8.6, Total Bilirubin 0.40, AST 21, ALT 18, Alkaline Phosphatase 58, C-React Prot Ext Range 57.60 H, Total Protein 6.1 L, Albumin 2.7 L, Globulin 3.4, Albumin/Globulin Ratio 0.8 L, Prealbumin 18.1 L Current Medications Acetaminophen (Tylenol) 500 mg PO Q4H PRN PRN PRN Reason: PAIN Last Admin: 09/10/18 00:31 Dose: 500 mg Ascorbic Acid (Vitamin C) 500 mg PO DAILY [facility] Docusate Sodium (Colace) 100 mg PO BID [facility] Last Admin: 09/09/18 21:36 Dose: 100 mg Enoxaparin Sodium (Lovenox) 40 mg SC DAILY@0600 [facility] Last Admin: 09/10/18 05:42 Dose: 40 mg Ergocalciferol (Vitamin D) 50,000 unit PO QMONTH@1000 [facility] Gabapentin (Neurontin) 300 mg PO TIDCM [facility] Last Admin: 09/09/18 18:09 Dose: 300 mg Hydromorphone HCl (Dilaudid Inj) 1 mg IV Q4H PRN PRN PRN Reason: SEVERE PAIN (6-10/10) Lactated Ringer's () 1,000 mls @ 60 mls/hr IV .[id number] [facility] Last Admin: 09/09/18 23:36 Dose: 60 mls/hr Vancomycin IV Pharmacy to Dose (1 ea/ Sodium Chloride) 500 mls @ 250 mls/hr IV PRN PRN; Protocol PRN Reason: Rx to Dose Vancomycin HCl 750 mg/ Sodium (Chloride) 265 mls @ 250 mls/hr IV Q12H [facility] Last Admin: 09/09/18 20:23 Dose: 250 mls/hr Levothyroxine Sodium (Synthroid) 25 mcg PO DAILY@0600 [facility] Last Admin: 09/10/18 05:42 Dose: 25 mcg Linaclotide (Linzess) 145 mcg PO DAILY PRN PRN PRN Reason: CONSTIPATION Nutritional Formula (Teofilo - [place] Flavor) 1 packet PO BIDCM [facility] Last Admin: 09/09/18 18:09 Dose: 1 packet Nutritional Formula (Lactose Free) (Ensure Enlive) 120 ml PO 4X/DAY [facility] Last Admin: 09/09/18 21:36 Dose: 120 ml Ondansetron HCl (Zofran) 4 mg IV Q6H PRN PRN PRN Reason: NAUSEA Oxycodone HCl (Oxyir) 10 mg PO Q4H PRN PRN PRN Reason: SEVERE PAIN (6-03/13) Pantoprazole Sodium (Protonix) 40 mg PO DAILY@1400 [facility] Last Admin: 09/09/18 13:55 Dose: 40 mg Polysaccharide [facility] ([facility]rex 150[facility] Potassium Chloride (K-Dur) 40 meq PO DAILY [facility] Promethazine HCl (Phenergan Tablet) 25 mg PO Q4H PRN PRN PRN Reason: NAUSEA/VOMITING Sodium Chloride () 5 - 15 ml IV UD PRN PRN Reason: SALINE FLUSH Medical Necessity - Tobacco Use Smoking Status: Former smoker Tobacco Use: Non-smoker Assessment/Plan All Active Problems (Last Reviewed 05/16/18 @ 14:58 by Raúl Villareal DO) Hypergranulation (Acute) Acute blood loss anemia (Acute) Preop cardiovascular exam (Acute) Colovaginal fistula (Acute) Failure to thrive (Acute) Clostridium difficile colitis (Acute) Septic shock (Resolved) VITO (acute kidney injury) (Resolved) Encephalopathy (Resolved) Atrial fibrillation with RVR (Resolved) Clostridium difficile infection (Resolved) Rhabdomyolysis (Resolved) 68 y/o female who is s/p debridement of decubitus ulcers due to hypergranulation 1. Sacral Decubitus ulcers s/p debridement decubitus ulcers present on admission plastic surgery on board; management as per plastic surgery on IV vancomycin 2. Hypothyroidism: On Synthroid. 3. Hypertension: diet controlled. Stable. 4. GERD and IBS: on Linzess DVT prophylaxis: lovenox Code Visit OBSV E&M: [id number] Subsequent observation care L2
--- NOTE | 2018-09-10 09:18 | PN_ITS ---
Subjective: Patient seen and examined. She complains of mild back pain which is chronic. She denies any fever chills, palpitations or dizziness, chest pain, diarrhea vomiting. Review of systems otherwise negative. Labs and vitals reviewed. Vitals/I&O's: Vital Signs Temp Pulse Resp BP Pulse Ox 98.9 F 92 18 108/55 L 97 09/10/18 03:16 09/10/18 03:16 09/10/18 03:16 09/10/18 03:16 09/10/18 03:16 Oxygen Flow Rate (L/min) 2 Oxygen Delivery Method Nasal Cannula Weight: 209 lb 14.081 oz Body Mass Index (BMI) 36.0 Intake and Output for Last 24 Hours 09/08/18 09/09/18 09/10/18 23:59 23:59 23:59 Intake Total 2088 / 2088 1185 / 1185 Output Total 1175 / 1175 1800 / 1800 Balance 913 / 913 -615 / -615 General: Alert, Oriented x3, Cooperative, No apparent distress HEENT: Atraumatic, PERRLA, EOMI, Normocephalic Oral: Moist Mucosa Neck: Supple, No JVD, Negative Carotid Bruits Lungs: Clear to auscultation, Normal air movement, No rhonchi, No wheeze, No rales Cardiovascular: Regular rate, Regular Rhythm, Normal S1, Normal S2, No murmurs Abdomen: Bowel Sounds Present, Soft, Non Tender, Non-Distended, No Hepato- splenomegaly Extremities: No clubbing, No cyanosis, No edema, Capillary Refill Less than 3 Seconds Skin: - - dressing over sacral decubitus ulcer Musculoskeletal: No Tenderness to Palpation of Joints or Extremities Lymphatic: No Cervical, Supraclavicular, or Inguinal Adenopathy Neurological: Cranial nerves II-XII grossly intact, Neuro grossly intact Psych/Mental Status: Normal Affect, Appropriate, Alert and oriented to time, place, person, mood and affect Microbiology Past 72 Hours 09/09/18 11:05 Tissue - Sacral Gram Stain - Final 09/09/18 11:05 Bone - Buttock Gram Stain - Final Laboratory Results 09/10/18 05:32: WBC 11.8 H, RBC 4.28, Hgb 11.1 L, Hct 35.6 L, MCV 83.2, MCH 25.9 L, MCHC 31.2 L, RDW 15.4 H, RDW Differential 46.0 H, Plt Count 316, MPV 9.4, ESR 33 H 09/10/18 05:32: Sodium 141, Potassium 3.5, Chloride 109 H, Carbon Dioxide 27.0, Anion Gap 5, BUN 17, Creatinine 0.68, Estim Creat Clear Calc 47.14, Est GFR (MDRD) Af Amer 111, Est GFR (MDRD) Non-Af 92, BUN/Creatinine Ratio 25.0 H, Glucose 99, Calcium 8.6, Total Bilirubin 0.40, AST 21, ALT 18, Alkaline Phosphatase 58, C-React Prot Ext Range 57.60 H, Total Protein 6.1 L, Albumin 2.7 L, Globulin 3.4, Albumin/Globulin Ratio 0.8 L, Prealbumin 18.1 L Current Medications Acetaminophen (Tylenol) 500 mg PO Q4H PRN PRN PRN Reason: PAIN Last Admin: 09/10/18 00:31 Dose: 500 mg Ascorbic Acid (Vitamin C) 500 mg PO DAILY [facility] Docusate Sodium (Colace) 100 mg PO BID [facility] Last Admin: 09/09/18 21:36 Dose: 100 mg Enoxaparin Sodium (Lovenox) 40 mg SC DAILY@0600 [facility] Last Admin: 09/10/18 05:42 Dose: 40 mg Ergocalciferol (Vitamin D) 50,000 unit PO QMONTH@1000 [facility] Gabapentin (Neurontin) 300 mg PO TIDCM [facility] Last Admin: 09/09/18 18:09 Dose: 300 mg Hydromorphone HCl (Dilaudid Inj) 1 mg IV Q4H PRN PRN PRN Reason: SEVERE PAIN (6-10/10) Lactated Ringer's () 1,000 mls @ 60 mls/hr IV .[id number] [facility] Last Admin: 09/09/18 23:36 Dose: 60 mls/hr Vancomycin IV Pharmacy to Dose (1 ea/ Sodium Chloride) 500 mls @ 250 mls/hr IV PRN PRN; Protocol PRN Reason: Rx to Dose Vancomycin HCl 750 mg/ Sodium (Chloride) 265 mls @ 250 mls/hr IV Q12H [facility] Last Admin: 09/09/18 20:23 Dose: 250 mls/hr Levothyroxine Sodium (Synthroid) 25 mcg PO DAILY@0600 [facility] Last Admin: 09/10/18 05:42 Dose: 25 mcg Linaclotide (Linzess) 145 mcg PO DAILY PRN PRN PRN Reason: CONSTIPATION Nutritional Formula (Teofilo - [place] Flavor) 1 packet PO BIDCM [facility] Last Admin: 09/09/18 18:09 Dose: 1 packet Nutritional Formula (Lactose Free) (Ensure Enlive) 120 ml PO 4X/DAY [facility] Last Admin: 09/09/18 21:36 Dose: 120 ml Ondansetron HCl (Zofran) 4 mg IV Q6H PRN PRN PRN Reason: NAUSEA Oxycodone HCl (Oxyir) 10 mg PO Q4H PRN PRN PRN Reason: SEVERE PAIN (6-03/13) Pantoprazole Sodium (Protonix) 40 mg PO DAILY@1400 [facility] Last Admin: 09/09/18 13:55 Dose: 40 mg Polysaccharide Iron Complex ([facility]rex 150) [facility] Potassium Chloride (K-Dur) 40 meq PO DAILY [facility] Promethazine HCl (Phenergan Tablet) 25 mg PO Q4H PRN PRN PRN Reason: NAUSEA/VOMITING Sodium Chloride () 5 - 15 ml IV UD PRN PRN Reason: SALINE FLUSH Medical Necessity - Tobacco Use Smoking Status: Former smoker Tobacco Use: Non-smoker Assessment/Plan All Active Problems (Last Reviewed 05/16/18 @ 14:58 by Raúl Villareal DO) Hypergranulation (Acute) Acute blood loss anemia (Acute) Preop cardiovascular exam (Acute) Colovaginal fistula (Acute) Failure to thrive (Acute) Clostridium difficile colitis (Acute) Septic shock (Resolved) VITO (acute kidney injury) (Resolved) Encephalopathy (Resolved) Atrial fibrillation with RVR (Resolved) Clostridium difficile infection (Resolved) Rhabdomyolysis (Resolved) 68 y/o female who is s/p debridement of decubitus ulcers due to hypergranulation 1. Sacral Decubitus ulcers s/p debridement * decubitus ulcers present on admission * plastic surgery on board; management as per plastic surgery * on IV vancomycin * 2. Hypothyroidism: On Synthroid. 3. Hypertension: diet controlled. Stable. 4. GERD and IBS: on Linzess DVT prophylaxis: lovenox Code Visit OBSV E&M: 52404 Subsequent observation care L2
[2018-09-10] MEDS: Gabapentin 300 MG Capsule PO ×2 (09:28→18:06)
[2018-09-10] MEDS: Iron Polysaccharide Complex 150 MG CAPSULE PO (09:29)
[2018-09-10] MEDS: Docusate Sodium 100 MG Capsule PO ×2 (09:29→20:27)
[2018-09-10] MEDS: Ascorbic Acid 500 MG Tablet PO (09:29)
[2018-09-10 10:59] VITALS: BP 99/59; PULSE 87; RESP 18; TEMP 37; O2SAT 98
--- NOTE | 2018-09-10 11:47 | CASEMGMT ---
RN CM Assessment Presentation: Sacral pressure sore, stage IV, osteomylitis Intro role of CM and purpose of RN CM assessment to patient in room. Pt is awake, alert, able to participate in dc planning. Demographics, PCP and Pharmacy verified. Pt tearful during conversation, emotional support given. Pt is anxious over her wound not healing. States she has been dealing with this for months. Pt was in TCU from 06/01/18 to 07/11/18. Does not wish to return unless she needs IV antibiotics, then feels she would not be able to return home. RN CM offered to place name on TCU list, pt is agreeable and message left on referral line. Unknown bed availability. PCP: Dr. Sanchez Specialists: Dr. Hansen Preferred [facility]acy: [facility] Insurance: GERRI FERNÁNDEZ Prescription Benefit: yes LNOK: Brother Jaspal Durant Living Arrangements: Lives in one story home. Pt has had wound vac at home and states she can return home unless IV antibiotics are needed. Pt states she lives alone, but friends help bring meals and get her mail. Transportation: friends DME: rollator, electric bed HHC: [facility] at home. Will resume on discharge. Called to Ranjan @ [facility] and updated that if pt returns home will have wound vac and need wound vac changes. Called back to juaquin to update that pt may be returning home this kerline and first wound vac change can be or Sunday. H/P, med list, wound notes, resume order faxed to them. [facility] PH: [phone] FX: [phone] Patient DC goals: Home unless IV antibiotics are needed, then would like TCU. DC PLAN: Anticipate Home on dc with resumption of [facility]. David KIRANN RN ACM
--- NOTE | 2018-09-10 11:55 | NURSING ---
wound photo: sacrum
[2018-09-10 15:30] VITALS: BP 139/62; PULSE 81; RESP 18; TEMP 36.9; O2SAT 95
[2018-09-10] MEDS: HYDROmorphone 1 MG/ML Syringe IV (16:00)
[2018-09-10 16:56] LABS: Hematocrit 33.4 % (37-47); Hemoglobin 10.3 g/dl (12.0-15.0)
--- NOTE | 2018-09-10 17:37 | NURSING ---
1450 called into room by [employer]ATOR stating that there is bleeding where the wound vac is.. entered room and saw a large amount of bleeding from the wound vac site and blood in the wound vac container.. stopped the wound vac called Nidhi RN to make aware of bleeding that was taking off wound vac to see where bleeding was coming from. Nidhi stated she will call Dr. Hansen.. this RN proceeded to take down dressing and there was a large clot over top to the wound vac black foam. removed this and noted one spot where blood was spurting out.. held pressure to this spot and paged Dr. Hansen again, which he was in surgery and will be up once done and to hold pressure. after approx 40mins bleeding seemed to clot off. pt states felt little dizzy bp taken. Dr. Hansen arrived looked at area and used silver nitrate sticks to cauterize the area. after area stopped bleeding wet/dry dressing placed and reinforced dressing placed. H/H ordered.
--- NOTE | 2018-09-10 17:43 | PCM.PN.SRG ---
Subjective: Postop #1 Patient resting comfortably. Had VAC applied this morning and developed some bleeding this afternoon. I came to her bedside after my surgery, and there was some bleeding on the right lateral edge of the pressure sore. It was controlled with gauze compression and silver nitrate chemical cauterization. Compression saline gauze dressing was applied. The VAC is placed on hold. The nurses stated that before I got there, there was saturated dressing with blood clots in the wound. They estimate about a unit. Her Hgb early this morning was 11.2. Will check another Hgb. Her vital signs remained stable. - Physical Exam General: Alert, Oriented x3 HEENT: PERRLA, EOMI Oral: Moist Mucosa Neck: Supple Abdomen: Soft, Non-Distended Skin: Ulcer/ Wound - sacral pressure sore had some bleeding this afternoon on the right side of the wound. Hemostasis was obtained with gauze compression and silver nitrate chemical cauterization. The wound was redressed with saline gauze. Another compression dressing will be applied tomorrow. Will apply the VAC on . Neurological: Cranial nerves II-XII grossly intact Psych/Mental Status: Normal Affect, Appropriate Vital Signs Temp Pulse Resp BP Pulse Ox 98.6 F 87 18 99/59 L 98 09/10/18 10:59 09/10/18 10:59 09/10/18 10:59 09/10/18 10:59 09/10/18 10:59 Oxygen Flow Rate (L/min) 2 Oxygen Delivery Method Room Air Weight: 209 lb 14.081 oz Body Mass Index (BMI) 36.0 Intake and Output for Last 24 Hours 09/08/18 09/09/18 09/10/18 23:59 23:59 23:59 Intake Total 2088 / 2088 1765 / 1765 Output Total 1175 / 1175 2600 / 2600 Balance 913 / 913 -835 / -835 Microbiology Past 72 Hours 09/09/18 11:05 Gram Stain - Final Bone - Buttock Wound Culture - Preliminary No growth-Final to follow 09/09/18 11:05 Gram Stain - Final Tissue - Sacral Wound Culture - Preliminary Gram positive organism Pathology - pending. Laboratory Tests Past 24 Hrs 09/10/18 09/10/18 09/10/18 05:32 05:32 16:45 WBC 11.8 H RBC 4.28 Hgb 11.1 L 10.3 L Hct 35.6 L 33.4 L MCV 83.2 MCH 25.9 L MCHC 31.2 L RDW 15.4 H RDW Differential 46.0 H Plt Count 316 MPV 9.4 ESR 33 H Sodium 141 Potassium 3.5 Chloride 109 H Carbon Dioxide 27.0 Anion Gap 5 BUN 17 Creatinine 0.68 Estim Creat Clear Calc 47.14 Est GFR (MDRD) Af Amer 111 Est GFR (MDRD) Non-Af 92 BUN/Creatinine Ratio 25.0 H Glucose 99 Calcium 8.6 Total Bilirubin 0.40 AST 21 ALT 18 Alkaline Phosphatase 58 C-React Prot Ext Range 57.60 H Total Protein 6.1 L Albumin 2.7 L Globulin 3.4 Albumin/Globulin Ratio 0.8 L Prealbumin 18.1 L Medical Necessity - Tobacco Use Smoking Status: Former smoker Tobacco Use: Non-smoker Assessment/Plan All Active Problems (Last Reviewed 05/16/18 @ 14:58 by Raúl Villareal DO) Hypergranulation (Acute) Acute blood loss anemia (Acute) Preop cardiovascular exam (Acute) Colovaginal fistula (Acute) Failure to thrive (Acute) Clostridium difficile colitis (Acute) Septic shock (Resolved) VITO (acute kidney injury) (Resolved) Encephalopathy (Resolved) Atrial fibrillation with RVR (Resolved) Clostridium difficile infection (Resolved) Rhabdomyolysis (Resolved) 1. Sacral pressure sore, Stage IV. 2. Osteomyelitis. 3. s/p repair colovaginal fistula. 4. Severe hypergranulation tissue sacral pressure sore. 5. s/p excision sacral pressure sore, Stage IV, with partial ostectomy for osteomyelitis. Patient had bleeding episode this afternoon. The VAC was stopped and hemostasis was obtained with gauze pressure and silver nitrate chemical cauterization. The nurses reported a fair amount of blood on the dressing before I got there, about a unit. The wound was redressed with saline gauze. Will repack the wound tomorrow with a Silver dressing. Will replace the VAC on . Repeat Hgb was done which showed 10.3. Will recheck again in the morning. Prealbumin was 18.1. Encourage nutritional supplementation with protein to help the healing process. Operative culture shows Gram positive cocci and Gram positive burke. Continue Vancomycin. Pathology is pending. After discharge, [facility].
[2018-09-10] MEDS: Silver Nitrate (BKC) 1 EACH TOPICAL (18:03)
[2018-09-10] MEDS: Pantoprazole Sodium 40 MG Tablet PO (18:05)
[2018-09-10 18:23] VITALS: BP 99/48; PULSE 90
[2018-09-10 20:19] LABS: Vancomycin, Trough Level 6.5 ug/mL (5.0-15.0)
[2018-09-10 20:32] VITALS: BP 98/46; PULSE 105; RESP 18; TEMP 37.3; O2SAT 95
--- NOTE | 2018-09-10 20:45 | PCM.RX.CS ---
Consult Pharmacy has been consulted to manage selected antiobiotic: Vancomycin Type of Consult: Follow-up Suspected Infection: Osteomyelitis Prior Doses of Antibiotics Received/Current Regimen: Vancomycin 1000mg x1 preop on 09/09/18, and Vancomycin 750mg IV x3 doses Labs: Sodium 141 mmol/L (136-145) 09/10/18 05:32 Potassium 3.5 mmol/L (3.5-5.1) 09/10/18 05:32 Chloride 109 mmol/L (98-107) H 09/10/18 05:32 Carbon Dioxide 27.0 mmol/L (21.0-32.0) 09/10/18 05:32 Anion Gap 5 (5-15) 09/10/18 05:32 BUN 17 mg/dL (7-18) 09/10/18 05:32 Creatinine 0.68 mg/dL (0.55-1.02) 09/10/18 05:32 Est GFR (MDRD) Af Amer 111 mL/min (>60) 09/10/18 05:32 Est GFR (MDRD) Non-Af 92 mL/min (>60) 09/10/18 05:32 BUN/Creatinine Ratio 25.0 RATIO (10-20) H 09/10/18 05:32 Glucose 99 mg/dL (74-106) 09/10/18 05:32 Vancomycin Trough 6.5 ug/mL (5.0-15.0) 09/10/18 19:35 Microbiology: Microbiology 09/09/18 11:05 Bone - Buttock Gram Stain - Final 09/09/18 11:05 Bone - Buttock Wound Culture - Preliminary No growth-Final to follow 09/09/18 11:05 Tissue - Sacral Gram Stain - Final 09/09/18 11:05 Tissue - Sacral Wound Culture - Preliminary Gram positive organism Weight used for dosin kg Estimated Creatinine Clearance: 47 Goal Trough: 15-20 mcg/mL Pharmacy Plan for Drug Dosin68 year old F receiving Vancomycin for osteomyelitis. Goal trough for the pt is 15-20. Trough results from 09/10/18 at 1930 was 6.5. Dose will be increased to 1250mg q12h and a trough will be drawn before the 4th dose on 09/12/18 at 1930. Dose was calculated using Clinical Pharmacology dose calculator, giving an est trough of 17. Pharmacy Service will continue to monitor and adjust dosing as required. Follow-Up Labs: Trough Vancomycin - 09/12/18 at 1930
[2018-09-10] MEDS: Lactated Ringers 1,000 ML 60 ML IV (21:58)
[2018-09-11] MEDS: Acetaminophen 500 MG Tablet 1000 MG PO ×2 (02:02→14:43)
[2018-09-11 02:05] VITALS: BP 136/62; PULSE 91; RESP 18; TEMP 36.9; O2SAT 97
[2018-09-11] MEDS: Enoxaparin 40 MG/0.4 ML Syringe SC (05:51)
[2018-09-11] MEDS: Levothyroxine 25 MCG TABLET PO (05:51)
[2018-09-11 06:32] LABS: Anion Gap 7 (5-15); BUN 18 mg/dL (7-18); BUN/Creat Ratio 28.8 RATIO (10-20); Calcium,Total 8.4 mg/dL (8.5-10.1); Chloride 109 mmol/L (98-107); Creatinine, Serum 0.62 mg/dL (0.55-1.02); EST Glomerular Filtration Rate 101 mL/min (>60); Est Glom Filt Rate - Afr Amer 122 mL/min (>60); Estimated Creatinine Clearance 47.14 ml/min; Glucose 99 mg/dL (74-106); Sodium Level 142 mmol/L (136-145)
[2018-09-11 07:10] VITALS: O2SAT 97
[2018-09-11] MEDS: Gabapentin 300 MG Capsule PO ×3 (07:34→16:28)
[2018-09-11] MEDS: Iron Polysaccharide Complex 150 MG CAPSULE PO (07:34)
[2018-09-11 08:00] VITALS: BP 92/55; PULSE 85; RESP 18; TEMP 36.8; O2SAT 97
[2018-09-11 08:42] LABS: Hematocrit 27.3 % (37-47); Hemoglobin 8.6 g/dl (12.0-15.0); Mean Corp Hgb Conc 31.5 g/gl (32-36); Mean Corpuscular Hgb 26.2 pg (27.0-32.0); Mean Corpuscular Volume 83.2 fL (81-99); Mean Platelet Vol. 8.7 fl (6.2-12.0); Platelet Count 290 K/mm3 (150-450); RBC Distribution Width CV 15.3 % (11.6-14.6); RBC Distribution Width SD 46.6 fl (35.1-43.9); Red Blood Count 3.28 M/mm3 (4.2-5.4)
[2018-09-11 08:43] LABS: Scan Indicated on CBC? Y/N NO
[2018-09-11 09:10] LABS: Anion Gap 9 (5-15); BUN 16 mg/dL (7-18); BUN/Creat Ratio 22.3 RATIO (10-20); Calcium,Total 8.2 mg/dL (8.5-10.1); Chloride 111 mmol/L (98-107); Creatinine, Serum 0.72 mg/dL (0.55-1.02); EST Glomerular Filtration Rate 86 mL/min (>60); Est Glom Filt Rate - Afr Amer 104 mL/min (>60); Estimated Creatinine Clearance 47.14 ml/min; Glucose 130 mg/dL (74-106); Potassium 3.8 mmol/L (3.5-5.1); Sodium Level 143 mmol/L (136-145)
--- NOTE | 2018-09-11 09:41 | PCM.PN.HOSP ---
Subjective: Patient seen and examined. She had no complaints at review. She did have some bleeding from her wound yesterday. She has a wound vac in place. Review of systems otherwise negative. Labs and vitals reviewed. Vitals/I&O's: Vital Signs Temp Pulse Resp BP Pulse Ox 98.4 F 91 18 136/62 H 97 09/11/18 02:05 09/11/18 02:05 09/11/18 02:05 09/11/18 02:05 09/11/18 07:10 Oxygen Flow Rate (L/min) 2 Oxygen Delivery Method Room Air Weight: 209 lb 14.081 oz Body Mass Index (BMI) 36.0 Intake and Output for Last 24 Hours 09/09/18 09/10/18 09/11/18 23:59 23:59 23:59 Intake Total 2088 / 2088 1765 / 1765 1600 / 1600 Output Total 1175 / 1175 2600 / 2600 900 / 900 Balance 913 / 913 -835 / -835 700 / 700 General: Alert, Oriented x3, Cooperative, No apparent distress HEENT: Atraumatic, PERRLA, EOMI, Normocephalic Oral: Moist Mucosa Neck: Supple, No JVD, Negative Carotid Bruits Lungs: Clear to auscultation, Normal air movement, No rhonchi, No wheeze, No rales Cardiovascular: Regular rate, Regular Rhythm, Normal S1, Normal S2, No murmurs Abdomen: Bowel Sounds Present, Soft, Non Tender, Non-Distended, No Hepato-splenomegaly Extremities: No clubbing, No cyanosis, No edema, Capillary Refill Less than 3 Seconds Skin: - - dressing over sacral decubitus ulcer Musculoskeletal: No Tenderness to Palpation of Joints or Extremities Lymphatic: No Cervical, Supraclavicular, or Inguinal Adenopathy Neurological: Cranial nerves II-XII grossly intact, Neuro grossly intact Psych/Mental Status: Normal Affect, Appropriate, Alert and oriented to time, place, person, mood and affect Microbiology Past 72 Hours 09/09/18 11:05 Bone - Buttock Gram Stain - Final 09/09/18 11:05 Bone - Buttock Wound Culture - Preliminary No growth-Final to follow 09/09/18 11:05 Tissue - Sacral Gram Stain - Final 09/09/18 11:05 Tissue - Sacral Wound Culture - Preliminary Gram positive organism Laboratory Results 09/10/18 16:45: Hgb 10.3 L, Hct 33.4 L 09/10/18 19:35: Vancomycin Trough 6.5 09/11/18 05:38: Sodium 142, Potassium 4.0, Chloride 109 H, Carbon Dioxide 26.0, Anion Gap 7, BUN 18, Creatinine 0.62, Estim Creat Clear Calc 47.14, Est GFR (MDRD) Af Amer 122, Est GFR (MDRD) Non-Af 101, BUN/Creatinine Ratio 28.8 H, Glucose 99, Calcium 8.4 L 09/11/18 08:32: WBC 10.0, RBC 3.28 L, Hgb 8.6 L, Hct 27.3 L, MCV 83.2, MCH 26.2 L, MCHC 31.5 L, RDW 15.3 H, RDW Differential 46.6 H, Plt Count 290, MPV 8.7 09/11/18 08:32: Sodium 143, Potassium 3.8, Chloride 111 H, Carbon Dioxide 23.0, Anion Gap 9, BUN 16, Creatinine 0.72, Estim Creat Clear Calc 47.14, Est GFR (MDRD) Af Amer 104, Est GFR (MDRD) Non-Af 86, BUN/Creatinine Ratio 22.3 H, Glucose 130 H, Calcium 8.2 L Current Medications Acetaminophen (Tylenol) 1,000 mg PO Q8H PRN PRN PRN Reason: PAIN Last Admin: 09/11/18 02:02 Dose: 1,000 mg Ascorbic Acid (Vitamin C) 500 mg PO DAILY [facility] Last Admin: 09/10/18 09:29 Dose: 500 mg Docusate Sodium (Colace) 100 mg PO BID [facility] Last Admin: 09/10/18 20:27 Dose: 100 mg Enoxaparin Sodium (Lovenox) 40 mg SC DAILY@0600 [facility] Last Admin: 09/11/18 05:51 Dose: 40 mg Ergocalciferol (Vitamin D) 50,000 unit PO QMONTH@1000 [facility] Gabapentin (Neurontin) 300 mg PO TIDCM [facility] Last Admin: 09/11/18 07:34 Dose: 300 mg Hydromorphone HCl (Dilaudid Inj) 1 mg IV Q4H PRN PRN PRN Reason: SEVERE PAIN (-03/13) Last Admin: 09/10/18 16:00 Dose: 1 mg Lactated Ringer's () 1,000 mls @ 60 mls/hr IV .[id number] [facility] Last Admin: 09/10/18 21:58 Dose: 60 mls/hr Vancomycin IV Pharmacy to Dose (1 ea/ Sodium Chloride) 500 mls @ 250 mls/hr IV PRN PRN; Protocol PRN Reason: Rx to Dose Vancomycin HCl 1,250 mg/ (Sodium Chloride) 275 mls @ 167 mls/hr IV Q12H [facility] Last Admin: 09/11/18 08:33 Dose: 167 mls/hr Levothyroxine Sodium (Synthroid) 25 mcg PO DAILY@0600 [facility] Last Admin: 09/11/18 05:51 Dose: 25 mcg Linaclotide (Linzess) 145 mcg PO DAILY PRN PRN PRN Reason: CONSTIPATION Nutritional Formula (Teofilo - [place] Flavor) 1 packet PO BIDCM [facility] Last Admin: 09/11/18 07:34 Dose: 1 packet Nutritional Formula (Lactose Free) (Ensure Enlive) 120 ml PO 4X/DAY [facility] Last Admin: 09/10/18 20:27 Dose: Not Given Ondansetron HCl (Zofran) 4 mg IV Q6H PRN PRN PRN Reason: NAUSEA Oxycodone HCl (Oxyir) 10 mg PO Q4H PRN PRN PRN Reason: SEVERE PAIN (-03/13) Pantoprazole Sodium (Protonix) 40 mg PO DAILY@1400 [facility] Last Admin: 09/10/18 18:05 Dose: 40 mg Polysaccharide Iron Complex (Ferrex 150) [facility] Last Admin: 09/11/18 07:34 Dose: 150 mg Potassium Chloride (K-Dur) 40 meq PO DAILY [facility] Last Admin: 09/10/18 09:29 Dose: 40 meq Promethazine HCl (Phenergan Tablet) 25 mg PO Q4H PRN PRN PRN Reason: NAUSEA/VOMITING Sodium Chloride () 5 - 15 ml IV UD PRN PRN Reason: SALINE FLUSH Medical Necessity - Tobacco Use Smoking Status: Former smoker Tobacco Use: Non-smoker Assessment/Plan All Active Problems (Last Reviewed 05/16/18 @ 14:58 by Raúl Villareal DO) Hypergranulation (Acute) Acute blood loss anemia (Acute) Preop cardiovascular exam (Acute) Colovaginal fistula (Acute) Failure to thrive (Acute) Clostridium difficile colitis (Acute) Septic shock (Resolved) VITO (acute kidney injury) (Resolved) Encephalopathy (Resolved) Atrial fibrillation with RVR (Resolved) Clostridium difficile infection (Resolved) Rhabdomyolysis (Resolved) 68 y/o female who is s/p debridement of decubitus ulcers due to hypergranulation 1. Sacral Decubitus ulcers s/p debridement decubitus ulcers present on admission had some bleeding yesterday from wound;' wound vac in place plastic surgery on board; management as per plastic surgery on IV vancomycin Hb today is 8.6; plastic surgery to decide about transfusion as needed. 2. Hypothyroidism: On Synthroid. 3. Hypertension: diet controlled. Stable. 4. GERD and IBS: on Linzess DVT prophylaxis: lovenox Code Visit Inpatient E&M: 22420 Subs Hosp L2
--- NOTE | 2018-09-11 09:50 | PN_ITS ---
Subjective: Patient seen and examined. She had no complaints at review. She did have some bleeding from her wound yesterday. She has a wound vac in place. Review of systems otherwise negative. Labs and vitals reviewed. Vitals/I&O's: Vital Signs Temp Pulse Resp BP Pulse Ox 98.4 F 91 18 136/62 H 97 09/11/18 02:05 09/11/18 02:05 09/11/18 02:05 09/11/18 02:05 09/11/18 07:10 Oxygen Flow Rate (L/min) 2 Oxygen Delivery Method Room Air Weight: 209 lb 14.081 oz Body Mass Index (BMI) 36.0 Intake and Output for Last 24 Hours 09/09/18 09/10/18 09/11/18 23:59 23:59 23:59 Intake Total 2088 / 2088 1765 / 1765 1600 / 1600 Output Total 1175 / 1175 2600 / 2600 900 / 900 Balance 913 / 913 -835 / -835 700 / 700 General: Alert, Oriented x3, Cooperative, No apparent distress HEENT: Atraumatic, PERRLA, EOMI, Normocephalic Oral: Moist Mucosa Neck: Supple, No JVD, Negative Carotid Bruits Lungs: Clear to auscultation, Normal air movement, No rhonchi, No wheeze, No rales Cardiovascular: Regular rate, Regular Rhythm, Normal S1, Normal S2, No murmurs Abdomen: Bowel Sounds Present, Soft, Non Tender, Non-Distended, No Hepato- splenomegaly Extremities: No clubbing, No cyanosis, No edema, Capillary Refill Less than 3 Seconds Skin: - - dressing over sacral decubitus ulcer Musculoskeletal: No Tenderness to Palpation of Joints or Extremities Lymphatic: No Cervical, Supraclavicular, or Inguinal Adenopathy Neurological: Cranial nerves II-XII grossly intact, Neuro grossly intact Psych/Mental Status: Normal Affect, Appropriate, Alert and oriented to time, place, person, mood and affect Microbiology Past 72 Hours 09/09/18 11:05 Bone - Buttock Gram Stain - Final 09/09/18 11:05 Bone - Buttock Wound Culture - Preliminary No growth-Final to follow 09/09/18 11:05 Tissue - Sacral Gram Stain - Final 09/09/18 11:05 Tissue - Sacral Wound Culture - Preliminary Gram positive organism Laboratory Results 09/10/18 16:45: Hgb 10.3 L, Hct 33.4 L 09/10/18 19:35: Vancomycin Trough 6.5 09/11/18 05:38: Sodium 142, Potassium 4.0, Chloride 109 H, Carbon Dioxide 26.0, Anion Gap 7, BUN 18, Creatinine 0.62, Estim Creat Clear Calc 47.14, Est GFR (MDRD) Af Amer 122, Est GFR (MDRD) Non-Af 101, BUN/Creatinine Ratio 28.8 H, Glucose 99, Calcium 8.4 L 09/11/18 08:32: WBC 10.0, RBC 3.28 L, Hgb 8.6 L, Hct 27.3 L, MCV 83.2, MCH 26.2 L, MCHC 31.5 L, RDW 15.3 H, RDW Differential 46.6 H, Plt Count 290, MPV 8.7 09/11/18 08:32: Sodium 143, Potassium 3.8, Chloride 111 H, Carbon Dioxide 23.0, Anion Gap 9, BUN 16, Creatinine 0.72, Estim Creat Clear Calc 47.14, Est GFR (MDRD) Af Amer 104, Est GFR (MDRD) Non-Af 86, BUN/Creatinine Ratio 22.3 H, Glucose 130 H, Calcium 8.2 L Current Medications Acetaminophen (Tylenol) 1,000 mg PO Q8H PRN PRN PRN Reason: PAIN Last Admin: 09/11/18 02:02 Dose: 1,000 mg Ascorbic Acid (Vitamin C) 500 mg PO DAILY [facility] Last Admin: 09/10/18 09:29 Dose: 500 mg Docusate Sodium (Colace) 100 mg PO BID [facility] Last Admin: 09/10/18 20:27 Dose: 100 mg Enoxaparin Sodium (Lovenox) 40 mg SC DAILY@0600 [facility] Last Admin: 09/11/18 05:51 Dose: 40 mg Ergocalciferol (Vitamin D) 50,000 unit PO QMONTH@1000 [facility] Gabapentin (Neurontin) 300 mg PO TIDCM [facility] Last Admin: 09/11/18 07:34 Dose: 300 mg Hydromorphone HCl (Dilaudid Inj) 1 mg IV Q4H PRN PRN PRN Reason: SEVERE PAIN (-03/13) Last Admin: 09/10/18 16:00 Dose: 1 mg Lactated Ringer's () 1,000 mls @ 60 mls/hr IV .[id number] [facility] Last Admin: 09/10/18 21:58 Dose: 60 mls/hr Vancomycin IV Pharmacy to Dose (1 ea/ Sodium Chloride) 500 mls @ 250 mls/hr IV PRN PRN; Protocol PRN Reason: Rx to Dose Vancomycin HCl 1,250 mg/ (Sodium Chloride) 275 mls @ 167 mls/hr IV Q12H [facility] Last Admin: 09/11/18 08:33 Dose: 167 mls/hr Levothyroxine Sodium (Synthroid) 25 mcg PO DAILY@0600 [facility] Last Admin: 09/11/18 05:51 Dose: 25 mcg Linaclotide (Linzess) 145 mcg PO DAILY PRN PRN PRN Reason: CONSTIPATION Nutritional Formula (Teofilo - [place] Flavor) 1 packet PO BIDCM [facility] Last Admin: 09/11/18 07:34 Dose: 1 packet Nutritional Formula (Lactose Free) (Ensure Enlive) 120 ml PO 4X/DAY [facility] Last Admin: 09/10/18 20:27 Dose: Not Given Ondansetron HCl (Zofran) 4 mg IV Q6H PRN PRN PRN Reason: NAUSEA Oxycodone HCl (Oxyir) 10 mg PO Q4H PRN PRN PRN Reason: SEVERE PAIN (-03/13) Pantoprazole Sodium (Protonix) 40 mg PO DAILY@1400 [facility] Last Admin: 09/10/18 18:05 Dose: 40 mg Polysaccharide [facility] ([facility]rex 150) [facility] Last Admin: 09/11/18 07:34 Dose: 150 mg Potassium Chloride (K-Dur) 40 meq PO DAILY [facility] Last Admin: 09/10/18 09:29 Dose: 40 meq Promethazine HCl (Phenergan Tablet) 25 mg PO Q4H PRN PRN PRN Reason: NAUSEA/VOMITING Sodium Chloride () 5 - 15 ml IV UD PRN PRN Reason: SALINE FLUSH Medical Necessity - Tobacco Use Smoking Status: Former smoker Tobacco Use: Non-smoker Assessment/Plan All Active Problems (Last Reviewed 05/16/18 @ 14:58 by Raúl Villareal DO) Hypergranulation (Acute) Acute blood loss anemia (Acute) Preop cardiovascular exam (Acute) Colovaginal fistula (Acute) Failure to thrive (Acute) Clostridium difficile colitis (Acute) Septic shock (Resolved) VITO (acute kidney injury) (Resolved) Encephalopathy (Resolved) Atrial fibrillation with RVR (Resolved) Clostridium difficile infection (Resolved) Rhabdomyolysis (Resolved) 68 y/o female who is s/p debridement of decubitus ulcers due to hypergranulation 1. Sacral Decubitus ulcers s/p debridement * decubitus ulcers present on admission * had some bleeding yesterday from wound;' wound vac in place * plastic surgery on board; management as per plastic surgery * on IV vancomycin * Hb today is 8.6; plastic surgery to decide about transfusion as needed. * 2. Hypothyroidism: On Synthroid. 3. Hypertension: diet controlled. Stable. 4. GERD and IBS: on Linzess DVT prophylaxis: lovenox Code Visit Inpatient E&M: 28590 Subs Hosp L2
[2018-09-11] MEDS: Docusate Sodium 100 MG Capsule PO ×2 (11:05→21:17)
[2018-09-11] MEDS: Ascorbic Acid 500 MG Tablet PO (11:05)
--- NOTE | 2018-09-11 11:34 | CASEMGMT ---
MELODY GOMEZ NOTE: [facility]an[facility] She was made aware pt will not be discharged today but may possibly be discharged tomorrow 09/12. Pt made aware they were notified. Ra GÓMEZ RN CM
[2018-09-11] MEDS: Pantoprazole Sodium 40 MG Tablet PO (14:39)
[2018-09-11] MEDS: Lactated Ringers 1,000 ML 60 ML IV ×2 (14:45→16:28)
[2018-09-11 15:30] VITALS: BP 113/55; PULSE 85; RESP 18; TEMP 36.9; O2SAT 97
[2018-09-11 21:00] VITALS: BP 117/53; PULSE 86; RESP 16; TEMP 36.6; O2SAT 98
--- NOTE | 2018-09-11 22:33 | PCM.PN.SRG ---
Subjective: Postop #2 Patient is resting comfortably. Wound showed no active bleeding. VAC is still on hold until tomorrow because of bleeding episode last night. Wound was redressed with Silver dressing. - Physical Exam General: Alert, Oriented x3 HEENT: PERRLA, EOMI Oral: Moist Mucosa Neck: Supple Abdomen: Soft, Non-Distended Skin: Ulcer/ Wound - sacral pressure sore is stable. No active bleeding seen. Wound was redressed with Silver dressing change. VAC is on hold until tomorrow. Neurological: Cranial nerves II-XII grossly intact Psych/Mental Status: Normal Affect, Appropriate Vital Signs Temp Pulse Resp BP Pulse Ox 98 F 86 16 117/53 L 98 09/11/18 21:00 09/11/18 21:00 09/11/18 21:00 09/11/18 21:00 09/11/18 21:00 Oxygen Flow Rate (L/min) 2 Oxygen Delivery Method Room Air Weight: 209 lb 14.081 oz Body Mass Index (BMI) 36.0 Intake and Output for Last 24 Hours 09/09/18 09/10/18 09/11/18 23:59 23:59 23:59 Intake Total 2088 / 2088 1765 / 1765 4040 / 4040 Output Total 1175 / 1175 2600 / 2600 3675 / 3675 Balance 913 / 913 -835 / -835 365 / 365 Microbiology Past 72 Hours 09/09/18 11:05 Gram Stain - Final Tissue - Sacral Wound Culture - Preliminary Gram Positive Cocci Gram positive burke Anaerobic Culture - Preliminary 09/09/18 11:05 Gram Stain - Final Bone - Buttock Wound Culture - Preliminary No growth-Final to follow Anaerobic Culture - Preliminary No growth in 48 hours. Pathology - pending. Laboratory Tests Past 24 Hrs 09/11/18 09/11/18 09/11/18 05:38 08:32 08:32 WBC 10.0 RBC 3.28 L Hgb 8.6 L Hct 27.3 L MCV 83.2 MCH 26.2 L MCHC 31.5 L RDW 15.3 H RDW Differential 46.6 H Plt Count 290 MPV 8.7 Sodium 142 143 Potassium 4.0 3.8 Chloride 109 H 111 H Carbon Dioxide 26.0 23.0 Anion Gap 7 9 BUN 18 16 Creatinine 0.62 0.72 Estim Creat Clear Calc 47.14 47.14 Est GFR (MDRD) Af Amer 122 104 Est GFR (MDRD) Non-Af 101 86 BUN/Creatinine Ratio 28.8 H 22.3 H Glucose 99 130 H Calcium 8.4 L 8.2 L Medical Necessity - Tobacco Use Smoking Status: Former smoker Tobacco Use: Non-smoker Assessment/Plan All Active Problems (Last Reviewed 05/16/18 @ 14:58 by Raúl Villareal DO) Hypergranulation (Acute) Acute blood loss anemia (Acute) Preop cardiovascular exam (Acute) Colovaginal fistula (Acute) Failure to thrive (Acute) Clostridium difficile colitis (Acute) Septic shock (Resolved) VITO (acute kidney injury) (Resolved) Encephalopathy (Resolved) Atrial fibrillation with RVR (Resolved) Clostridium difficile infection (Resolved) Rhabdomyolysis (Resolved) 1. Sacral pressure sore, Stage IV. 2. Osteomyelitis. 3. s/p repair colovaginal fistula. 4. Severe hypergranulation tissue sacral pressure sore. 5. s/p excision sacral pressure sore, Stage IV, with partial ostectomy for osteomyelitis. 6. anemia of chronic disease, acute on chronic. Wound was stable with no active bleeding noted. Redressed with Silver dressing. Will apply the VAC tomorrow. Hgb has decreased from 10.3 to 8.6. Has anemia of chronic disease, acute on chronic. Had 150 ml operative blood loss and had bleeding episode yesterday after the VAC was initially placed. Will transfuse if it goes below 8. She is on iron supplementation. Will recheck Hgb tomorrow. If it stays above 8 for discharge, will recheck another Hgb in a week at the [facility]. Prealbumin was 18.1. Encourage nutritional supplementation with protein to help the healing process. Operative culture shows Gram positive cocci and Gram positive burke. Continue Vancomycin. So far with the cultures, may send her home on po Doxycycline. I gave the patient the option of a PICC line and starting IV antibiotics until the pathology is available. If positive for osteomyelitis, then 6 weeks of IV antibiotics. If pathology is negative for osteomyelitis, then would do IV antibiotics for a week or two and then change to po antibiotics. If she waits on the PICC until the pathology is available, then she would have to return to the hospital for the placement of the PICC line. She states she needs to get home now and doesn't mind coming back in for a few days for placement of the vac and starting IV antibiotics if the pathology is positive for osteomyelitis. Pathology is pending. After discharge, followup at the Wound Center.
[2018-09-12 02:00] VITALS: BP 116/66; PULSE 79; RESP 16; TEMP 36.9; O2SAT 97
[2018-09-12] MEDS: Acetaminophen 500 MG Tablet 1000 MG PO ×2 (02:08→13:50)
[2018-09-12] MEDS: Magnesium Citrate 300 ML PO (06:01)
[2018-09-12] MEDS: Enoxaparin 40 MG/0.4 ML Syringe SC (06:02)
[2018-09-12] MEDS: Levothyroxine 25 MCG TABLET PO (06:02)
[2018-09-12 07:48] LABS: Absolute Lymphocyte Count 1.54 X10^3/ul (0.83-4.51); Absolute Neutrophil Count 5.5 X10^3/uL (2.0-7.7); Basophil# 0.02 X10^3/uL; Basophil% 0.2 % (0-1); Eosinophil# 0.43 X10^3/uL; Eosinophils% 5.1 % (0-5); Hemoglobin 8.2 g/dl (12.0-15.0); Lymphocyte # 1.54 X10^3/ul (4.0); Lymphocyte % 18.2 % (19-41); Mean Corp Hgb Conc 31.5 g/gl (32-36); Mean Corpuscular Hgb 25.9 pg (27.0-32.0); Monocyte# 0.91 X10^3/uL; Monocyte% 10.8 % (0-10); Neutrophil # 5.52 X10^3/uL (2.7-7.7); Neutrophil % 65.3 % (47-70); POSITIVE COUNT NO; POSITIVE DIFFERENTIAL NO; POSITIVE MORPHOLOGY NO; Platelet Count 301 K/mm3 (150-450); RBC Distribution Width CV 15.3 % (11.6-14.6); Red Blood Count 3.17 M/mm3 (4.2-5.4); White Blood Count 8.5 K/mm3 (4.4-11.0)
[2018-09-12 08:00] VITALS: BP 118/70; PULSE 70; RESP 16; TEMP 36.7; O2SAT 98
[2018-09-12] MEDS: Iron Polysaccharide Complex 150 MG CAPSULE PO (08:43)
[2018-09-12] MEDS: Gabapentin 300 MG Capsule PO ×2 (08:43→12:31)
--- NOTE | 2018-09-12 08:53 | PCM.PN.HOSP ---
Subjective: Patient seen and examined. She had no complaints overnight to the nurse told me the patient had stated that she was feeling weak. She denied any fever or chills, palpitations or dizziness, chest pain, diarrhea. Pain at site of decubitus ulcers well controlled. Labs and vitals reviewed. Vitals/I&O's: Vital Signs Temp Pulse Resp BP Pulse Ox 98.5 F 79 16 116/66 97 09/12/18 02:00 09/12/18 02:00 09/12/18 02:00 09/12/18 02:00 09/12/18 02:00 Oxygen Flow Rate (L/min) 2 Oxygen Delivery Method Room Air Weight: 209 lb 14.081 oz Body Mass Index (BMI) 36.0 Intake and Output for Last 24 Hours 09/10/18 09/11/18 09/12/18 23:59 23:59 23:59 Intake Total 1765 / 1765 4040 / 4040 1890 / 1890 Output Total 2600 / 2600 3675 / 3675 2650 / 2650 Balance -835 / -835 365 / 365 -760 / -760 General: Alert, Oriented x3, Cooperative, No apparent distress HEENT: Atraumatic, PERRLA, EOMI, Normocephalic Oral: Moist Mucosa Neck: Supple, No JVD, Negative Carotid Bruits Lungs: Clear to auscultation, Normal air movement, No rhonchi, No wheeze, No rales Cardiovascular: Regular rate, Regular Rhythm, Normal S1, Normal S2, grade 2-3 systolic murmur loudest in the aortic region Abdomen: Bowel Sounds Present, Soft, Non Tender, Non-Distended, No Hepato-splenomegaly Extremities: No clubbing, No cyanosis, No edema, Capillary Refill Less than 3 Seconds Skin: - - dressing over sacral decubitus ulcer Musculoskeletal: No Tenderness to Palpation of Joints or Extremities Lymphatic: No Cervical, Supraclavicular, or Inguinal Adenopathy Neurological: Cranial nerves II-XII grossly intact, Neuro grossly intact Psych/Mental Status: Normal Affect, Appropriate, Alert and oriented to time, place, person, mood and affect Microbiology Past 72 Hours 09/09/18 11:05 Tissue - Sacral Gram Stain - Final 09/09/18 11:05 Tissue - Sacral Wound Culture - Preliminary Coag Negative Staph Actinomyces odontolyticus 09/09/18 11:05 Bone - Buttock Gram Stain - Final 09/09/18 11:05 Bone - Buttock Wound Culture - Preliminary No growth-Final to follow 09/09/18 11:05 Bone - Buttock Anaerobic Culture - Preliminary No growth in 48 hours. Laboratory Results 09/11/18 08:32: Sodium 143, Potassium 3.8, Chloride 111 H, Carbon Dioxide 23.0, Anion Gap 9, BUN 16, Creatinine 0.72, Estim Creat Clear Calc 47.14, Est GFR (MDRD) Af Amer 104, Est GFR (MDRD) Non-Af 86, BUN/Creatinine Ratio 22.3 H, Glucose 130 H, Calcium 8.2 L 09/12/18 07:17: WBC 8.5, RBC 3.17 L, Hgb 8.2 L, Hct 26.0 L, MCV 82.0, MCH 25.9 L, MCHC 31.5 L, RDW 15.3 H, RDW Differential 46.0 H, Plt Count 301, MPV 9.0, Immature Gran % (Auto) 0.400, Neut % (Auto) 65.3, Lymph % (Auto) 18.2 L, Barnes % (Auto) 10.8 H, Eos % (Auto) 5.1 H, Baso % (Auto) 0.2, Absolute Neuts (auto) 5.5, Absolute Lymphs (auto) 1.54, Total Counted Not Reportable Current Medications Acetaminophen (Tylenol) 1,000 mg PO Q8H PRN PRN PRN Reason: PAIN Last Admin: 09/12/18 02:08 Dose: 1,000 mg Ascorbic Acid (Vitamin C) 500 mg PO DAILY [facility] Last Admin: 09/11/18 11:05 Dose: 500 mg Docusate Sodium (Colace) 100 mg PO BID [facility] Last Admin: 09/11/18 21:17 Dose: 100 mg Enoxaparin Sodium (Lovenox) 40 mg SC DAILY@0600 [facility] Last Admin: 09/12/18 06:02 Dose: 40 mg Ergocalciferol (Vitamin D) 50,000 unit PO QMONTH@1000 [facility] Gabapentin (Neurontin) 300 mg PO TIDCM [facility] Last Admin: 09/12/18 08:43 Dose: 300 mg Hydromorphone HCl (Dilaudid Inj) 1 mg IV Q4H PRN PRN PRN Reason: SEVERE PAIN (6-1010) Last Admin: 09/10/18 16:00 Dose: 1 mg Lactated Ringer's () 1,000 mls @ 60 mls/hr IV .[id number] [facility] Last Admin: 09/11/18 16:28 Dose: 60 mls/hr Vancomycin IV Pharmacy to Dose (1 ea/ Sodium Chloride) 500 mls @ 250 mls/hr IV PRN PRN; Protocol PRN Reason: Rx to Dose Vancomycin HCl 1,250 mg/ (Sodium Chloride) 275 mls @ 167 mls/hr IV Q12H [facility] Last Admin: 09/12/18 08:42 Dose: 167 mls/hr Levothyroxine Sodium (Synthroid) 25 mcg PO DAILY@0600 [facility] Last Admin: 09/12/18 06:02 Dose: 25 mcg Linaclotide (Linzess) 145 mcg PO DAILY PRN PRN PRN Reason: CONSTIPATION Nutritional [facility] (Teofilo - [place] Flavor) [facility] Last Admin: 09/12/18 08:43 Dose: 1 packet Nutritional Formula (Lactose Free) (Ensure Enlive) 120 ml PO 4X/DAY [facility] Last Admin: 09/11/18 21:17 Dose: 120 ml Ondansetron HCl (Zofran) 4 mg IV Q6H PRN PRN PRN Reason: NAUSEA Oxycodone HCl (Oxyir) 10 mg PO Q4H PRN PRN PRN Reason: SEVERE PAIN (6-1010) Pantoprazole Sodium (Protonix) 40 mg PO DAILY@1400 [facility] Last Admin: 09/11/18 14:39 Dose: 40 mg Polysaccharide Iron Complex (Ferrex 150) [facility] Last Admin: 09/12/18 08:43 Dose: 150 mg Potassium Chloride (K-Dur) 40 meq PO DAILY [facility] Last Admin: 09/11/18 11:05 Dose: 40 meq Promethazine HCl (Phenergan Tablet) 25 mg PO Q4H PRN PRN PRN Reason: NAUSEA/VOMITING Sodium Chloride () 5 - 15 ml IV UD PRN PRN Reason: SALINE FLUSH Medical Necessity - Tobacco Use Smoking Status: Former smoker Tobacco Use: Non-smoker Assessment/Plan All Active Problems (Last Reviewed 05/16/18 @ 14:58 by Raúl Villareal DO) Hypergranulation (Acute) Acute blood loss anemia (Acute) Preop cardiovascular exam (Acute) Colovaginal fistula (Acute) Failure to thrive (Acute) Clostridium difficile colitis (Acute) Septic shock (Resolved) VITO (acute kidney injury) (Resolved) Encephalopathy (Resolved) Atrial fibrillation with RVR (Resolved) Clostridium difficile infection (Resolved) Rhabdomyolysis (Resolved) 68 y/o female who is s/p debridement of decubitus ulcers due to hypergranulation 1. Sacral Decubitus ulcers s/p debridement decubitus ulcers present on admission had some bleeding yesterday from wound;' wound vac in place plastic surgery on board; management as per plastic surgery on IV vancomycin sacral wound cultured coagulase negative Staph, actinomyces odontolyticus; buttock bone cultured coagulase negative staph 2. Anemia, likely due to acute blood loss from debridement Hb dropped to 8.2 today; baseline is 12.6 plastic surgery prefers not to transfuse patient. to continue iron supplementation 3. Hypothyroidism: On Synthroid. 4. Hypertension: diet controlled. Stable. 5. GERD and IBS: on Linzess DVT prophylaxis: lovenox Code Visit Inpatient E&M: 79844 Subs Hosp L2
--- NOTE | 2018-09-12 08:59 | PN_ITS ---
Subjective: Patient seen and examined. She had no complaints overnight to the nurse told me the patient had stated that she was feeling weak. She denied any fever or chills, palpitations or dizziness, chest pain, diarrhea. Pain at site of decubitus ulcers well controlled. Labs and vitals reviewed. Vitals/I&O's: Vital Signs Temp Pulse Resp BP Pulse Ox 98.5 F 79 16 116/66 97 09/12/18 02:00 09/12/18 02:00 09/12/18 02:00 09/12/18 02:00 09/12/18 02:00 Oxygen Flow Rate (L/min) 2 Oxygen Delivery Method Room Air Weight: 209 lb 14.081 oz Body Mass Index (BMI) 36.0 Intake and Output for Last 24 Hours 09/10/18 09/11/18 09/12/18 23:59 23:59 23:59 Intake Total 1765 / 1765 4040 / 4040 1890 / 1890 Output Total 2600 / 2600 3675 / 3675 2650 / 2650 Balance -835 / -835 365 / 365 -760 / -760 General: Alert, Oriented x3, Cooperative, No apparent distress HEENT: Atraumatic, PERRLA, EOMI, Normocephalic Oral: Moist Mucosa Neck: Supple, No JVD, Negative Carotid Bruits Lungs: Clear to auscultation, Normal air movement, No rhonchi, No wheeze, No rales Cardiovascular: Regular rate, Regular Rhythm, Normal S1, Normal S2, grade 2-3 systolic murmur loudest in the aortic region Abdomen: Bowel Sounds Present, Soft, Non Tender, Non-Distended, No Hepato- splenomegaly Extremities: No clubbing, No cyanosis, No edema, Capillary Refill Less than 3 Seconds Skin: - - dressing over sacral decubitus ulcer Musculoskeletal: No Tenderness to Palpation of Joints or Extremities Lymphatic: No Cervical, Supraclavicular, or Inguinal Adenopathy Neurological: Cranial nerves II-XII grossly intact, Neuro grossly intact Psych/Mental Status: Normal Affect, Appropriate, Alert and oriented to time, place, person, mood and affect Microbiology Past 72 Hours 09/09/18 11:05 Tissue - Sacral Gram Stain - Final 09/09/18 11:05 Tissue - Sacral Wound Culture - Preliminary Coag Negative Staph Actinomyces odontolyticus 09/09/18 11:05 Bone - Buttock Gram Stain - Final 09/09/18 11:05 Bone - Buttock Wound Culture - Preliminary No growth-Final to follow 09/09/18 11:05 Bone - Buttock Anaerobic Culture - Preliminary No growth in 48 hours. Laboratory Results 09/11/18 08:32: Sodium 143, Potassium 3.8, Chloride 111 H, Carbon Dioxide 23.0, Anion Gap 9, BUN 16, Creatinine 0.72, Estim Creat Clear Calc 47.14, Est GFR (MDRD) Af Amer 104, Est GFR (MDRD) Non-Af 86, BUN/Creatinine Ratio 22.3 H, Glucose 130 H, Calcium 8.2 L 09/12/18 07:17: WBC 8.5, RBC 3.17 L, Hgb 8.2 L, Hct 26.0 L, MCV 82.0, MCH 25.9 L , MCHC 31.5 L, RDW 15.3 H, RDW Differential 46.0 H, Plt Count 301, MPV 9.0, Immature Gran % (Auto) 0.400, Neut % (Auto) 65.3, Lymph % (Auto) 18.2 L, Andrew % (Auto) 10.8 H, Eos % (Auto) 5.1 H, Baso % (Auto) 0.2, Absolute Neuts (auto) 5.5, Absolute Lymphs (auto) 1.54, Total Counted Not Reportable Current Medications Acetaminophen (Tylenol) 1,000 mg PO Q8H PRN PRN PRN Reason: PAIN Last Admin: 09/12/18 02:08 Dose: 1,000 mg Ascorbic Acid (Vitamin C) 500 mg PO DAILY [facility] Last Admin: 09/11/18 11:05 Dose: 500 mg Docusate Sodium (Colace) 100 mg PO BID [facility] Last Admin: 09/11/18 21:17 Dose: 100 mg Enoxaparin Sodium (Lovenox) 40 mg SC DAILY@0600 [facility] Last Admin: 09/12/18 06:02 Dose: 40 mg Ergocalciferol (Vitamin D) 50,000 unit PO QMONTH@1000 [facility] Gabapentin (Neurontin) 300 mg PO TIDCM [facility] Last Admin: 09/12/18 08:43 Dose: 300 mg Hydromorphone HCl (Dilaudid Inj) 1 mg IV Q4H PRN PRN PRN Reason: SEVERE PAIN (6-1010) Last Admin: 09/10/18 16:00 Dose: 1 mg Lactated Ringer's () 1,000 mls @ 60 mls/hr IV .[id number] [facility] Last Admin: 09/11/18 16:28 Dose: 60 mls/hr Vancomycin IV Pharmacy to Dose (1 ea/ Sodium Chloride) 500 mls @ 250 mls/hr IV PRN PRN; Protocol PRN Reason: Rx to Dose Vancomycin HCl 1,250 mg/ (Sodium Chloride) 275 mls @ 167 mls/hr IV Q12H [facility] Last Admin: 09/12/18 08:42 Dose: 167 mls/hr Levothyroxine Sodium (Synthroid) 25 mcg PO DAILY@0600 [facility] Last Admin: 09/12/18 06:02 Dose: 25 mcg Linaclotide (Linzess) 145 mcg PO DAILY PRN PRN PRN Reason: CONSTIPATION Nutritional Formula (Teofilo - [place] Flavor) [facility] Last Admin: 09/12/18 08:43 Dose: 1 packet Nutritional Formula (Lactose Free) (Ensure Enlive) 120 ml PO 4X/DAY [facility] Last Admin: 09/11/18 21:17 Dose: 120 ml Ondansetron HCl (Zofran) 4 mg IV Q6H PRN PRN PRN Reason: NAUSEA Oxycodone HCl (Oxyir) 10 mg PO Q4H PRN PRN PRN Reason: SEVERE PAIN (6-1010) Pantoprazole Sodium (Protonix) 40 mg PO DAILY@1400 [facility] Last Admin: 09/11/18 14:39 Dose: 40 mg Polysaccharide Iron Complex (Ferrex 150) [facility] Last Admin: 09/12/18 08:43 Dose: 150 mg Potassium Chloride (K-Dur) 40 meq PO DAILY [facility] Last Admin: 09/11/18 11:05 Dose: 40 meq Promethazine HCl (Phenergan Tablet) 25 mg PO Q4H PRN PRN PRN Reason: NAUSEA/VOMITING Sodium Chloride () 5 - 15 ml IV UD PRN PRN Reason: SALINE FLUSH Medical Necessity - Tobacco Use Smoking Status: Former smoker Tobacco Use: Non-smoker Assessment/Plan All Active Problems (Last Reviewed 05/16/18 @ 14:58 by Raúl Villareal DO) Hypergranulation (Acute) Acute blood loss anemia (Acute) Preop cardiovascular exam (Acute) Colovaginal fistula (Acute) Failure to thrive (Acute) Clostridium difficile colitis (Acute) Septic shock (Resolved) VITO (acute kidney injury) (Resolved) Encephalopathy (Resolved) Atrial fibrillation with RVR (Resolved) Clostridium difficile infection (Resolved) Rhabdomyolysis (Resolved) 68 y/o female who is s/p debridement of decubitus ulcers due to hypergranulation 1. Sacral Decubitus ulcers s/p debridement * decubitus ulcers present on admission * had some bleeding yesterday from wound;' wound vac in place * plastic surgery on board; management as per plastic surgery * on IV vancomycin * sacral wound cultured coagulase negative Staph, actinomyces odontolyticus; buttock bone cultured coagulase negative staph 2. Anemia, likely due to acute blood loss from debridement * Hb dropped to 8.2 today; baseline is 12.6 * plastic surgery prefers not to transfuse patient. * to continue iron supplementation 3. Hypothyroidism: On Synthroid. 4. Hypertension: diet controlled. Stable. 5. GERD and IBS: on Linzess DVT prophylaxis: lovenox Code Visit Inpatient E&M: 83058 Subs Hosp L2
[2018-09-12 09:00] VITALS: RESP 18
[2018-09-12] MEDS: Ascorbic Acid 500 MG Tablet PO (09:52)
[2018-09-12] MEDS: Docusate Sodium 100 MG Capsule PO (09:52)
--- NOTE | 2018-09-12 10:46 | NURSING ---
wound photo: sacrum
--- NOTE | 2018-09-12 11:22 | NURSING ---
In to reassess the wound VAC. no drainage noted in the canister at this time. pt states she has martha moving around in the bed also. will monitor. Pt is really hoping to go home today.
--- NOTE | 2018-09-12 12:53 | CASEMGMT ---
MELODY GOMEZ Note. Dr. Hansen plans to discharge pt today. MELODY GOMEZ called to [facility] to notify of dc today, wound vac was changed today and will need next change on Sunday or Sunday. Green sheet to charge nurse to fax dc summary/instructions to home health when available. -MELODY GOMEZ spoke with pt who is looking forward to being dc'd today. David KIRANN RN ACM
[2018-09-12] MEDS: Pantoprazole Sodium 40 MG Tablet PO (13:12)
--- NOTE | 2018-09-12 13:28 | PCM.PN.SRG ---
Subjective: Postop #3 Patient is resting comfortably. - Physical Exam General: Alert, Oriented x3 HEENT: PERRLA, EOMI Oral: Moist Mucosa Neck: Supple Abdomen: Soft, Non-Distended Skin: Ulcer/ Wound - sacral wound is stable. No active bleeding. VAC applied today. Neurological: Cranial nerves II-XII grossly intact Psych/Mental Status: Normal Affect, Appropriate Vital Signs Temp Pulse Resp BP Pulse Ox 98.0 F 70 18 118/70 98 09/12/18 08:00 09/12/18 08:00 09/12/18 09:00 09/12/18 08:00 09/12/18 08:00 Oxygen Flow Rate (L/min) 2 Oxygen Delivery Method Room Air Weight: 209 lb 14.081 oz Body Mass Index (BMI) 36.0 Intake and Output for Last 24 Hours 09/10/18 09/11/18 09/12/18 23:59 23:59 23:59 Intake Total 1765 / 1765 4040 / 4040 3100 / 3100 Output Total 2600 / 2600 3675 / 3675 3650 / 3650 Balance -835 / -835 365 / 365 -550 / -550 Microbiology Past 72 Hours 09/09/18 11:05 Gram Stain - Final Tissue - Sacral Wound Culture - Preliminary Coag Negative Staph Actinomyces odontolyticus Anaerobic Culture - Final No anaerobic bacteria isolated. 09/09/18 11:05 Gram Stain - Final Bone - Buttock Wound Culture - Final No growth aerobically. Anaerobic Culture - Preliminary No growth in 48 hours. Laboratory Tests Past 24 Hrs 09/12/18 07:17 WBC 8.5 RBC 3.17 L Hgb 8.2 L Hct 26.0 L MCV 82.0 MCH 25.9 L MCHC 31.5 L RDW 15.3 H RDW Differential 46.0 H Plt Count 301 MPV 9.0 Immature Gran % (Auto) 0.400 Neut % (Auto) 65.3 Lymph % (Auto) 18.2 L Nicholas % (Auto) 10.8 H Eos % (Auto) 5.1 H Baso % (Auto) 0.2 Absolute Neuts (auto) 5.5 Absolute Lymphs (auto) 1.54 Total Counted Not Reportable Medical Necessity - Tobacco Use Smoking Status: Former smoker Tobacco Use: Non-smoker Assessment/Plan All Active Problems (Last Reviewed 05/16/18 @ 14:58 by Raúl Villareal DO) Hypergranulation (Acute) Acute blood loss anemia (Acute) Preop cardiovascular exam (Acute) Colovaginal fistula (Acute) Failure to thrive (Acute) Clostridium difficile colitis (Acute) Septic shock (Resolved) VITO (acute kidney injury) (Resolved) Encephalopathy (Resolved) Atrial fibrillation with RVR (Resolved) Clostridium difficile infection (Resolved) Rhabdomyolysis (Resolved) 1. Sacral pressure sore, Stage IV. 2. Osteomyelitis. 3. s/p repair colovaginal fistula. 4. Severe hypergranulation tissue sacral pressure sore. 5. s/p excision sacral pressure sore, Stage IV, with partial ostectomy for osteomyelitis. 6. anemia of chronic disease, acute on chronic. Wound was stable with no active bleeding noted. VAC applied today. Hgb has slight decrease from 8.6 to 8.2. Has anemia of chronic disease, acute on chronic. Had 150 ml operative blood loss and had bleeding episode two days ago after the VAC was initially placed. Will transfuse if it goes below 8. She is on iron supplementation. Will recheck Hgb as an outpatient at the Wound Center. Prealbumin was 18.1. Encourage nutritional supplementation with protein to help the healing process. Operative culture shows Coag negative Staph and Actinomyces odontolyticus. Will stop the Vancomycin and send her home on po Doxycycline. I gave the patient the option of a PICC line and starting IV antibiotics until the pathology is available. If positive for osteomyelitis, then 6 weeks of IV antibiotics. If pathology is negative for osteomyelitis, then would do IV antibiotics for a week or two and then change to po antibiotics. If she waits on the PICC until the pathology is available, then she would have to return to the hospital for the placement of the PICC line. She states she needs to get home now and doesn't mind coming back in for a few days for placement of the vac and starting IV antibiotics if the pathology is positive for osteomyelitis. Pathology is pending. Discharge home today. Wrote script for Doxycycline for 2 weeks. Wrote script for Iron supplementation. She states she will take Tylenol for pain. Followup Wound Center one week.
--- NOTE | 2018-09-12 13:58 | DCINST_ITS ---
You will use the following diet at home:: No restrictions, Other - encourage nutritional supplementation with protein to help the healing process. Discharge Activity: May Shower - on the days the vac is changed., - - may ambulate. May shower in (days): 2 - on the days the vac is changed. May resume sexual activity in: No Restrictions Weight Bearing Status: Weight bearing as tolerated Call your doctor if your incision/area has: Continuous Slow Oozing, Sudden Increased Bleeding, Increased Pain/ Swelling, Increased Redness, Foul Smelling Discharge, Swelling at the incision site Call your doctor if you observe: Fever of 101 or Higher, Coldness, Increased Pain, Shortness of breath, Chest pain, Calf discomfort, Uncontrolled pain Suture Line Care: - - vac changes three times per week at 150 mmHg continuous suction. Change Dressing in (Days):: 2 - vac changes three times per week. Cleanse incision/area with: - - may cleanse the wound with soap and water and take a shower on the days the vac is changed. Catheter: Maier to leg bag - will remove the maier at the wound center. Allergies/Adverse Reactions: Allergies bee venom protein (honey bee) Allergy (Verified 09/02/18 08:55) Angioedema metaxalone [From Skelaxin] Allergy (Verified 09/02/18 08:55) Swelling Medications to take at Discharge Levothyroxine [Synthroid] 25 mcg PO DAILY 03/02/17 cholecalciferol (vitamin D3) 50,000 unit capsule 50,000 unit PO QMONTH 08/02/17 Ascorbic Acid 500 mg PO DAILY 08/21/17 Potassium Chloride [K-Dur] 40 meq PO DAILY 12/26/17 Omeprazole 40 mg PO 1400 04/11/18 omega-3 fatty acids 1,000 mg capsule 1,000 mg PO DAILY 04/19/18 Linacolotide [Linzess] 145 mcg PO DAILY PRN capsule 07/08/18 Gabapentin [Neurontin] 300 mg PO TID 09/02/18 Lactose-Reduced Food [Protein Nutritional Shake] 414 ml PO DAILY 09/02/18 Acetaminophen [Tylenol] 1,000 mg PO Q8H PRN PRN tablet 09/12/18 Docusate Sodium [Colace] 100 mg PO BID capsule 09/12/18 Doxycycline [Vibramycin] 100 mg PO BID #28 cap 09/12/18 Iron Polysaccharide Complex [Ferrex 150] 150 mg PO DAILYCM #30 cap 09/12/18 Iron Polysaccharide Complex [Ferrex 150] 150 mg PO DAILYCM #30 capsule 09/12/18 The following prescriptions were given: Iron Polysaccharide Complex [Ferrex 150] 150 mg PO DAILYCM #30 capsule Iron Polysaccharide Complex [Ferrex 150] 150 mg PO DAILYCM #30 cap Doxycycline [Vibramycin] 100 mg PO BID #28 cap Orders to be completed after discharge: CBC-Complete Blood Cnt No Diff Time Frame: 1 Week, Facility: [facility], Location: W[facility] Healing Center Primary Care Physician: Chema Sanchez Chi, MD [Primary Care Provider] - Test Results: Test results from this visit will be discussed in further detail at your follow- up appointment, if applicable. Please Follow Up With: Brant Santiago MD When: sunday09/18/18 at wound center. call [phone] if questions. Proposed Discharge Date: 09/12/18
--- NOTE | 2018-09-12 14:02 | PCM.DC.SUM ---
Discharge Date and Diagnosis Date of Admission: 09/09/18 Date of Discharge: 09/12/18 - Primary Discharge Diagnosis Sacral pressure sore, Stage IV. Severe hypergranulation tissue sacral pressure sore. Anemia of chronic disease, acute on chronic. - Secondary Discharge Diagnosis Osteomyelitis. History of colovaginal fistula repair. Constipation Hypertension Non-rheumatic tricuspid valve insufficiency Morbid obesity with BMI of 40.0-44.9, adult GERD (gastroesophageal reflux disease) Depression Hypothyroidism Neuropathy Hospital Course and Treatment Imaging Results: None. Consultations 09/10/18 06:36 Consult: Onc/Wound/security orderly Routine Comment: Reason for Consult:: sacral wound Hospitalist Group - Dr. Ornelas. Operations: - - 09/09/18 - Excision sacral pressure sore, Stage IV, with partial ostectomy for osteomyelitis. Procedures: Wound vac placement Summary of Care Provided: 68 year old woman presents for further operative excision of her sacral pressure sore because of the development of severe hypergranulation tissue. Wound care is hampered with the VAC because of the hypergranulation tissue. After her last excision of her sacral pressure sore in 05/21, her bone pathology was positive for osteomyelitis. Her bone culture was positive for corynebacterium minutissimum and Staphylococcus epidermidis. She received IV Vancomycin for 6 weeks. At the time of her pressure sore, she was found to have a colovaginal fistula that was surgically repaired in 12/19 at [facility]. Recently she has developed severe hypergranulation tissue in the wound which has been hampering healing. On 09/09/18, the patient went back to surgery where she underwent excision sacral pressure sore, Stage IV, with partial ostectomy for osteomyelitis. She tolerated the procedure well. On the first postop day the VAC was applied. Later in the day, there was some bleeding in the canister. The VAC was removed and hemostasis was easily obtained with gauze compression and silver nitrate chemical cauterization. The wound was packed with Silver dressing for the next two days until the day of discharge on the third postop day. The Hospitalist Group was consulted for medical management. Patient has history of anemia of chronic disease and had an acute on chronic episode postop with the VAC bleeding. Her Hgb went from 11.1 down to 8.2 at discharge. There was no active bleeding on the day of discharge. Some was blood loss and some was IV dilution. She was started on Iron supplementation. Will recheck another Hgb a week after discharge. She was treated perioperatively with Vancomycin. Her operative culture showed Coag negative Staph and Actinomyces odontolyticus in the soft tissue and it was negative in the bone. Pathology was pending at the time of discharge. She was discharged home on Doxycycline. Her Prealbumin on 09/10/18 was 18.1. Encouraged nutritional supplementation with protein to help the healing process. On the third postop day, the wound was stable with no active bleeding noted. VAC applied today in preparation for discharge. I gave the patient the option of a PICC line and starting IV antibiotics until the pathology is available. If positive for osteomyelitis, then 6 weeks of IV antibiotics. If pathology is negative for osteomyelitis, then would do IV antibiotics for a week or two and then change to po antibiotics. If she waits on the PICC until the pathology is available, then she would have to return to the hospital for the placement of the PICC line. She states she needs to get home now and doesn't mind coming back in for a few days for placement of the vac and starting IV antibiotics if the pathology is positive for osteomyelitis. Pathology is pending. Discharge home today. The maier catheter was left in and will be removed at the Wound Center. Will recheck Hgb in a week. Wrote script for Doxycycline for 2 weeks. Wrote script for Iron supplementation. She states she will take Tylenol for pain. Followup Wound Center one week. Condition upon discharge is stable. - Physical Exam Vital Signs Temp Pulse Resp BP Pulse Ox 98.0 F 70 18 118/70 98 09/12/18 08:00 09/12/18 08:00 09/12/18 09:00 09/12/18 08:00 09/12/18 08:00 Oxygen Flow Rate (L/min) 2 Oxygen Delivery Method Room Air Weight: 209 lb 14.081 oz Body Mass Index (BMI) 36.0 Intake and Output for Last 24 Hours 09/10/18 09/11/18 09/12/18 23:59 23:59 23:59 Intake Total 1765 / 1765 4040 / 4040 3100 / 3100 Output Total 2600 / 2600 3675 / 3675 3650 / 3650 Balance -835 / -835 365 / 365 -550 / -550 Microbiology Past 72 Hours 09/09/18 11:05 Gram Stain - Final Tissue - Sacral Wound Culture - Preliminary Coag Negative Staph Actinomyces odontolyticus Anaerobic Culture - Final No anaerobic bacteria isolated. 09/09/18 11:05 Gram Stain - Final Bone - Buttock Wound Culture - Final No growth aerobically. Anaerobic Culture - Preliminary No growth in 48 hours. Laboratory Tests Past 24 Hrs 09/12/18 07:17 WBC 8.5 RBC 3.17 L Hgb 8.2 L Hct 26.0 L MCV 82.0 MCH 25.9 L MCHC 31.5 L RDW 15.3 H RDW Differential 46.0 H Plt Count 301 MPV 9.0 Immature Gran % (Auto) 0.400 Neut % (Auto) 65.3 Lymph % (Auto) 18.2 L Angelina % (Auto) 10.8 H Eos % (Auto) 5.1 H Baso % (Auto) 0.2 Absolute Neuts (auto) 5.5 Absolute Lymphs (auto) 1.54 Total Counted Not Reportable Discharge Diet: Low fat/ Low Cholesterol, - - encourage nutritional supplementation with protein to help the healing process. Discharge Activity: May Shower - on the days the vac is changed., - - may ambulate. May shower in (days): 2 - on the days the vac is changed. May resume sexual activity in: No Restrictions Weight Bearing Status: Weight bearing as tolerated Call your doctor if your incision/area has: Continuous Slow Oozing, Sudden Increased Bleeding, Increased Pain/ Swelling, Increased Redness, Foul Smelling Discharge, Swelling at the incision site Call your doctor if you observe: Fever of 101 or Higher, Coldness, Increased Pain, Shortness of breath, Chest pain, Calf discomfort, Uncontrolled pain Suture Line Care: - - vac changes three times per week at 150 mmHg continuous suction. Change Dressing in (Days):: 2 - vac changes three times per week. Cleanse incision/area with: - - may cleanse the wound with soap and water and take a shower on the days the vac is changed. Catheter: Maier to leg bag - will remove the maier at the wound center. Home Medications: Medications to take at Discharge Levothyroxine [Synthroid] 25 mcg PO DAILY 03/02/17 cholecalciferol (vitamin D3) 50,000 unit capsule 50,000 unit PO QMONTH 08/02/17 Ascorbic Acid 500 mg PO DAILY 08/21/17 Potassium Chloride [K-Dur] 40 meq PO DAILY 12/26/17 Omeprazole 40 mg PO 1400 04/11/18 omega-3 fatty acids 1,000 mg capsule 1,000 mg PO DAILY 04/19/18 Linacolotide [Linzess] 145 mcg PO DAILY PRN capsule 07/08/18 Gabapentin [Neurontin] 300 mg PO TID 09/02/18 Lactose-Reduced Food [Protein Nutritional Shake] 414 ml PO DAILY 09/02/18 Acetaminophen [Tylenol] 1,000 mg PO Q8H PRN PRN tablet 09/12/18 Docusate Sodium [Colace] 100 mg PO BID capsule 09/12/18 Doxycycline [Vibramycin] 100 mg PO BID #28 cap 09/12/18 Iron Polysaccharide Complex [Ferrex 150] 150 mg PO DAILYCM #30 cap 09/12/18 Iron Polysaccharide Complex [Ferrex 150] 150 mg PO DAILYCM #30 capsule 09/12/18 Following Prescrptions Were Given to Patient: Iron Polysaccharide Complex [Ferrex 150] 150 mg PO DAILYCM #30 capsule Iron Polysaccharide Complex [Ferrex 150] 150 mg PO DAILYCM #30 cap Doxycycline [Vibramycin] 100 mg PO BID #28 cap Other Amb Orders: CBC-Complete Blood Cnt No Diff Time Frame: 1 Week, Facility: [facility], Location: Wound Healing Center Primary Care Physician: Chema Sanchez Chi, MD [Primary Care Provider] - Please Follow Up With: Brant Santiago MD When: sunday09/18/18 at wound center. call [phone] if questions. Disposition: Home with Home Health Minutes spent on discharge:: 35 Patient Condition:: Stable Medical Necessity - Tobacco Use Smoking Status: Former smoker Tobacco Use: Non-smoker Meaningful Use Info Meaningful Use Diagnoses (Choose all that apply): None applicable
--- NOTE | 2018-09-12 14:24 | NURSING ---
kris paperwork faxed to ruperto @ [facility] [phone]
--- NOTE | 2018-09-12 14:41 | NURSING ---
PT LEFT PRIOR TO RECEIVING HER DC PAPERWORK. MESSAGE WAS LEFT AT HER HOME #, AND ON [employer] PHONE. ATTEMPTED TO CALL BROTHERS # BUT NO ANSWER
--- NOTE | 2018-09-12 15:04 | NURSING ---
Pt was given extensive education on leg bag application and care and night bag application of care of darrion. Pt is also connected to her home vac and settings are verified. She is instructed to wait and let nurse recheck all her discharge orders and paper work prior her leaving floor. Pt left floor with no review of instructions and medication list. Phone calls to her contacts and her home to return to hospital. Charge nurse Syeda pfeiffer and she communicated instructions with pt over phone and medication pick at [facility].
--- NOTE | 2018-09-12 15:05 | NURSING ---
PRESCRIPTION OF DOXYCYCLINE WAS CALLED TO [facility] ON [address], SCRIPT FOR FERREX WAS ALREADY THERE. PT IS AWARE OF THIS AND INSTRUCTIONS WERE REVIEWED WITH PT VIA TELEPHONE. SHE REPORTS UNDERSTANDING
== END 2018-09-12 14:25 | disposition home health service (06) | DRG 982 ==
LOC: SDC 10:59
PROVIDERS: Anesthesiology; Student in an Organized Health Care Education/Training Program; Admitting Provider Surgery; Family Provider Family Medicine Geriatric Medicine; PCP Family Medicine Geriatric Medicine; Referring Provider Surgery; Visit Provider Surgery
DX: L89.154 Pressure ulcer of sacral region, stage 4 (principal); D62 Acute posthemorrhagic anemia; M86.9 Osteomyelitis, unspecified; E03.9 Hypothyroidism, unspecified; K21.9 Gastro-esophageal reflux disease without esophagitis; F32.9 Major depressive disorder, single episode, unspecified; I10 Essential (primary) hypertension; K58.9 Irritable bowel syndrome, unspecified; Z87.891 Personal history of nicotine dependence; I36.1 Nonrheumatic tricuspid (valve) insufficiency; I27.21 Secondary pulmonary arterial hypertension
CPT/HCPCS: 36415; 80048; 80053; 80202; 84134; 84443; 85014; 85018; 85025; 85027; 85610; 85652; 85730; 86140; 87070; 87075; 87077; 87102; 87186; 87205; 87206; 88305; 88311; 97802; J7050; J7120; J2405

== ENCOUNTER 2018-09-30 08:30 | Outpatient (RCR) | payer MEDICARE, OTHER, SELFPAY ==
[2018-09-02 00:22] VITALS: BP 144/79; PULSE 91; RESP 16; TEMP 36.4
[2018-09-04 08:53] VITALS: BP 123/85; PULSE 84; RESP 18; TEMP 36.2; BMI 34.8
--- NOTE | 2018-09-04 12:36 | PN.PCM_ITS ---
(1) Non-healing surgical wound Status: Chronic Current Visit: Yes Code(s): T81.89XA - Other complications of procedures, not elsewhere classified, initial encounter (2) Surgical wound present Status: Chronic Current Visit: Yes Code(s): T14.8XXA - Other injury of unspecified body region, initial encounter (3) Pressure ulcer of sacral region, stage 4 Status: Chronic Current Visit: Yes Code(s): L89.154 - Pressure ulcer of sacral region, stage 4 Type of Wound Chief Complaint: Sacral pressure sore, Stage IV. History of Wound: Surgery 05/14/18 - Excision sacral pressure sore, Stage IV, with partial ostectomy for osteomyelitis. Wound care - VAC. Operative culture - Staphylococcus epidermidis and Corynebacterium minutissimum in the soft tissue and Corynebacterium minutissimum in the bone. She finished IV Vancomycin for 6 weeks. Pathology was positive for osteomyelitis. Prealbumin from 05/29/18 was 22.0. Encourage nutritional supplementation with protein to help the healing process. CT Pelvis from 05/16/18 showed the skin soft tissue defect overlying the distal portion of the sacrum as progressed. The defect abuts the sacral bone although there is no evidence of bony destruction at this time. Today she denies fever. Her appetite is ok. She has some concerns about increasing pain and some drainage. She is tolerating the wound VAC at the higher setting. Progress of Wound: Dimensions continue to get smaller. Hypergranulation tissue still present. Plan is for surgical debridement. She denies any new concerns at this time. - Physical Exam Vital Signs Temp Pulse Resp BP 97.2 F L 84 18 123/85 H 09/04/18 08:53 09/04/18 08:53 09/04/18 08:53 09/04/18 08:53 General: Alert, Oriented x3, Cooperative, No apparent distress HEENT: Atraumatic, Normocephalic Oral: Moist Mucosa Neck: Supple Lungs: Normal air movement Abdomen: Non Tender Extremities: No cyanosis Skin: Ulcer/ Wound Wound Measurements and Assessment WC - Nurse 1 - General Ulcer Measurement Start: 09/04/18 08:53 Freq: Status: Active Protocol: Activity Type Activity Date Activity User E-Sign Co-Sign Detail Recorded Client Recorded Date Recorded By Document 09/04/18 08:53 DL [id number] 09/04/18 08:58 DL 09/04/18 08:53 Wound Center Nurse 1 [Ulcer Assessment] #7 sacrum -Current Size (cm) - Length 1.8 -Current Size (cm) - Width 4.2 -Current Size (cm) - Depth 2.4 -Total Square Cm 7.56 -Photo Taken No -Maximum Distance #2 (cm) 4 -Circular Undermining Yes -Exudate Amt Medium -Exudate Type Serosanguineous -Wound Margin Distinct, Outline Attached -Granulation Amt Large (67-100%) -Granulation Quality Red -Necrosis Amt None Present (0 %) -Structure Exposed N/A -Texture (Amanda-wound Skin Appearance) Scarring -Moisture (Amanda-wound Skin Appearance No Abnormality ) -Color (Amanda-wound Skin Appearance) Rubor -Temperature (Amanda-wound Skin No Abnormality Appearance) (Pt Warm) -Tenderness on Palpation (Amanda-wound No Skin Appearance) -Ulcer Cleansing Wound Cleanser -Foul Odor after Cleansing No -Anesthetic Used 4% Lidocaine Solution WC - Nurse 2 - General Ulcer CM Notes Start: 09/04/18 08:53 Freq: Status: Active Protocol: Activity Type Activity Date Activity User E-Sign Co-Sign Detail Recorded Client Recorded Date Recorded By Document 09/04/18 09:24 MW [id number] 09/04/18 09:29 MW 09/04/18 09:24 Wound Center Nurse 2 [Procedure/Treatment] -Time 09:27 -Correct Patient Yes -Correct Side, Site, Position Yes -Correct Procedure Yes -Procedure Performed Yes -Type of Procedure Debridement -Clinical Debridement Subcutaneous -Post Debridement Size (cm) - Length 1.9 -Post Debridement Size (cm) - Width 4.9 -Post Debridement Size (cm) - Depth 2.3 -Total Square Cm 9.31 -Wound/Ulcer Outcome Not Healed -Ulcer Cleansing Rinsed/ Irrigated with Saline -Foul Odor after Cleansing No -Bioengineered Tissue No -Bleeding Controlled with Pressure -Offloading No -Treatment Response Procedure Tolerated Well [See Physician Procedure note for Specifics] Pain Scale: 0-10 Numeric [Pain] -Is Patient Pain Free? Yes Musculoskeletal: No Muscle Wasting Neurological: Cranial nerves II-XII grossly intact Psych/Mental Status: Normal Affect Debridement Note Post-Debridement Measurements/Treatment WC - Nurse 2 - General Ulcer CM Notes Start: 09/04/18 08:53 Freq: Status: Active Protocol: Activity Type Activity Date Activity User E-Sign Co-Sign Detail Recorded Client Recorded Date Recorded By Document 09/04/18 09:24 MW [id number] 09/04/18 09:29 MW 09/04/18 09:24 Wound Center Nurse 2 #7 sacrum -Time 09:27 -Correct Patient Yes -Correct Side, Site, Position Yes -Correct Procedure Yes -Procedure Performed Yes -Type of Procedure Debridement -Clinical Debridement Subcutaneous -Post Debridement Size (cm) - Length 1.9 -Post Debridement Size (cm) - Width 4.9 -Post Debridement Size (cm) - Depth 2.3 -Total Square Cm 9.31 -Wound/Ulcer Outcome Not Healed -Ulcer Cleansing Rinsed/ Irrigated with Saline -Foul Odor after Cleansing No -Bioengineered Tissue No -Bleeding Controlled with Pressure -Offloading No -Treatment Response Procedure Tolerated Well Pain Scale: 0-10 Numeric Is Patient Pain Free? Yes Wound debrided: Sacral Wound Grade/Stage: Stage IV Type of Debridement: Excisional debridement Anesthesia Used: 4% Lidocaine Solution Depth: Down to and including healthy tissue, in the subcutaneous layer Percentage of wound debrided: 100 Instrument Used: 5mm curette Tissue Removed: Slough and devitalized tissue Severity: Fat Layer Exposed Amount of bleeding with debridement: Mild Bleeding Controlled with: Pressure Patient tolerated procedure well Assessment/Plan Active Problems (Last Reviewed 05/16/18 @ 14:58 by Raúl Villareal DO) Surgical wound present (Chronic) Non-healing surgical wound (Chronic) Pressure ulcer of sacral region, stage 4 (Chronic) Assessment: 1. Sacral pressure sore, Stage IV. 2. Osteomyelitis. 3. Severe hypergranulation tissue sacral ulcer. 4. s/p repair colovaginal fistula. 5. s/p excision sacral pressure sore, Stage IV, with partial ostectomy for osteomyelitis. Plan: No new concerns at this time. Wound circumference is improving. Hyper granulation tissue still present. Scheduled for Intra-Op surgical debridement on Sunday. For now, continue wound VAC at 150 mmHg and change every other day. Continue optimal protein intake. Her questions were answered and she was advised to call with any further questions or concerns. Follow-up in 2 weeks. This note was generated with [employer] software. It may contain incorrect words, spelling, and punctuation that were not noted in checking the note before signing.
[2018-09-18 09:04] VITALS: BP 135/74; PULSE 118; RESP 18; TEMP 36.3; BMI 34.8
--- NOTE | 2018-09-18 09:18 | WC ---
PT STATED URINARY CATHETER TO BE REMOVED PER DR CHILEL ORDERED AFTER SURGERY OF COCCYX. URINARY CATHETER REMOVED WITHOUT DISCOMFORT .
--- NOTE | 2018-09-18 10:31 | PCM.WC.PN ---
(1) Non-healing surgical wound Status: Chronic Current Visit: Yes Code(s): T81.89XA - Other complications of procedures, not elsewhere classified, initial encounter (2) Surgical wound present Status: Chronic Current Visit: Yes Code(s): T14.8XXA - Other injury of unspecified body region, initial encounter (3) Pressure ulcer of sacral region, stage 4 Status: Chronic Current Visit: Yes Code(s): L89.154 - Pressure ulcer of sacral region, stage 4 Type of Wound Chief Complaint: Sacral pressure sore, Stage IV. History of Wound: Surgery 05/14/18 - Excision sacral pressure sore, Stage IV, with partial ostectomy for osteomyelitis. Wound care - VAC. Operative culture - Staphylococcus epidermidis and Corynebacterium minutissimum in the soft tissue and Corynebacterium minutissimum in the bone. She finished IV Vancomycin for 6 weeks. Pathology was positive for osteomyelitis. Prealbumin from 05/29/18 was 22.0. Encourage nutritional supplementation with protein to help the healing process. CT Pelvis from 05/16/18 showed the skin soft tissue defect overlying the distal portion of the sacrum as progressed. The defect abuts the sacral bone although there is no evidence of bony destruction at this time. Today she denies fever. Her appetite is ok. She has some concerns about increasing pain and some drainage. She is tolerating the wound VAC at the higher setting. Progress of Wound: Ms. Chavez is here post recent hospital admission for extensive surgical debridement due to hypergranulation tissue. Doing well post discharge. Currently has a wound Vac on and denies any concerns in that regard. - Physical Exam Vital Signs Temp Pulse Resp BP 97.3 F L 118 H 18 135/74 H 09/18/18 09:04 09/18/18 09:04 09/18/18 09:04 09/18/18 09:04 General: Alert, Oriented x3, Cooperative, No apparent distress HEENT: Atraumatic, Normocephalic Oral: Moist Mucosa Neck: Supple Lungs: Normal air movement Abdomen: Non Tender, Obese Extremities: No cyanosis Skin: Ulcer/ Wound Wound Measurements and Assessment WC - Nurse 1 - General Ulcer Measurement Start: 09/04/18 08:53 Freq: Status: Active Protocol: Activity Type Activity Date Activity User E-Sign Co-Sign Detail Recorded Client Recorded Date Recorded By Document 09/18/18 09:04 [facility] [id number] 09/18/18 09:14 [facility] 09/18/18 09:04 Wound Center Nurse 1 [Ulcer Assessment] #7 sacrum -Combined with other wound No -Current Size (cm) - Length 6.2 -Current Size (cm) - Width 15.7 -Current Size (cm) - Depth 5.1 -Total Square Cm 97.34 -Date of Last Picture (Recall this 09/18/18 field) -Photo Taken Yes -Epithelialization None Present -Tunneling No -Undermining/Tunneling Yes -Undermining/Tunneling Starts (O' 12 clock) -Undermining/Tunneling Ends (O'clock) 12 -Maximum Distance (cm) 4.8 -Circular Undermining No -Classification - Thickness Full Thickness with Exposed Support Structure -Exudate Amt Small -Exudate Type Sanguineous -Wound Margin Distinct, Outline Attached -Granulation Amt Large (67-100%) -Granulation Quality Red -Slough/Fibrin Yes -Necrosis Amt Small (1-33%) -Necrotic Tissue Type Adherent Slough -Structure Exposed Bone -Texture (Amanda-wound Skin Appearance) Assessed -Moisture (Amanda-wound Skin Appearance Assessed ) -Color (Amanda-wound Skin Appearance) Assessed Erythema -Temperature (Amanda-wound Skin No Abnormality Appearance) (Pt Warm) -Tenderness on Palpation (Amanda-wound Yes Skin Appearance) -Ulcer Cleansing Wound Cleanser -Foul Odor after Cleansing No -Anesthetic Used 4% Lidocaine Solution WC - Nurse 2 - General Ulcer CM Notes Start: 09/04/18 08:53 Freq: Status: Active Protocol: Activity Type Activity Date Activity User E-Sign Co-Sign Detail Recorded Client Recorded Date Recorded By Document 09/18/18 09:33 MW [id number] 09/18/18 09:36 MW 09/18/18 09:33 Wound Center Nurse 2 [Procedure/Treatment] -Time 09:34 -Correct Patient Yes -Correct Side, Site, Position Yes -Correct Procedure Yes -Procedure Performed Yes -Type of Procedure Debridement -Clinical Debridement Subcutaneous -Post Debridement Size (cm) - Length 7.0 -Post Debridement Size (cm) - Width 16.0 -Post Debridement Size (cm) - Depth 5.0 -Total Square Cm 112.00 -Wound/Ulcer Outcome Not Healed -Ulcer Cleansing Rinsed/ Irrigated with Saline -Foul Odor after Cleansing No -Bioengineered Tissue No -Bleeding Controlled with Pressure -Offloading No -Treatment Response Procedure Tolerated Well [See Physician Procedure note for Specifics] Pain Scale: 0-10 Numeric [Pain] -Is Patient Pain Free? Yes Musculoskeletal: No Muscle Wasting Neurological: Cranial nerves II-XII grossly intact Psych/Mental Status: Normal Affect Debridement Note Post-Debridement Measurements/Treatment WC - Nurse 2 - General Ulcer CM Notes Start: 09/04/18 08:53 Freq: Status: Active Protocol: Activity Type Activity Date Activity User E-Sign Co-Sign Detail Recorded Client Recorded Date Recorded By Document 09/04/18 09:24 MW [id number] 09/04/18 09:29 MW Document 09/18/18 09:33 MW [id number] 09/18/18 09:36 MW 09/04/18 09/18/18 09:24 09:33 Wound Center Nurse 2 #7 sacrum -Time 09:27 09:34 -Correct Patient Yes Yes -Correct Side, Site, Position Yes Yes -Correct Procedure Yes Yes -Procedure Performed Yes Yes -Type of Procedure Debridement Debridement -Clinical Debridement Subcutaneous Subcutaneous -Post Debridement Size (cm) - Length 1.9 7.0 -Post Debridement Size (cm) - Width 4.9 16.0 -Post Debridement Size (cm) - Depth 2.3 5.0 -Total Square Cm 9.31 112.00 -Wound/Ulcer Outcome Not Healed Not Healed -Ulcer Cleansing Rinsed/ Rinsed/ Irrigated with Irrigated with Saline Saline -Foul Odor after Cleansing No No -Bioengineered Tissue No No -Bleeding Controlled with Pressure Pressure -Offloading No No -Treatment Response Procedure Procedure Tolerated Well Tolerated Well Pain Scale: 0-10 Numeric Is Patient Pain Free? Yes Yes Wound debrided: Sacral Wound Grade/Stage: Stage IV Type of Debridement: Excisional debridement Anesthesia Used: 4% Lidocaine Solution Depth: Down to and including healthy tissue, in the subcutaneous layer, to bone Percentage of wound debrided: 100 Instrument Used: 7mm curette Tissue Removed: Slough and devitalized tissue Severity: Fat Layer Exposed Amount of bleeding with debridement: Mild Bleeding Controlled with: Pressure Patient tolerated procedure well Assessment/Plan Active Problems (Last Reviewed 05/16/18 @ 14:58 by Raúl Jopperi, DO) Surgical wound present (Chronic) Non-healing surgical wound (Chronic) Pressure ulcer of sacral region, stage 4 (Chronic) Assessment: 1. Sacral pressure sore, Stage IV. 2. Osteomyelitis. 3. Severe hypergranulation tissue sacral ulcer. 4. s/p repair colovaginal fistula. 5. s/p excision sacral pressure sore, Stage IV, with partial ostectomy for osteomyelitis. Plan: Depth and circumference again significantly increased after recent intra - op surgical debridement secondary to hypergranulation tissue. No new concerns. Had post - op bleed however at discharge Hgb was 8.2g/dl. She was also discharged on iron supplements. CBC ordered. Continue wound VAC at 150 mmHg and change every other day. Continue optimal protein intake. Her questions were answered and she was advised to call with any further questions or concerns. Follow-up in 1 week. This note was generated with [employer] dictation software. It may contain incorrect words, spelling, and punctuation that were not noted in checking the note before signing.
--- NOTE | 2018-09-18 10:36 | PN.PCM_ITS ---
(1) Non-healing surgical wound Status: Chronic Current Visit: Yes Code(s): T81.89XA - Other complications of procedures, not elsewhere classified, initial encounter (2) Surgical wound present Status: Chronic Current Visit: Yes Code(s): T14.8XXA - Other injury of unspecified body region, initial encounter (3) Pressure ulcer of sacral region, stage 4 Status: Chronic Current Visit: Yes Code(s): L89.154 - Pressure ulcer of sacral region, stage 4 Type of Wound Chief Complaint: Sacral pressure sore, Stage IV. History of Wound: Surgery 05/14/18 - Excision sacral pressure sore, Stage IV, with partial ostectomy for osteomyelitis. Wound care - VAC. Operative culture - Staphylococcus epidermidis and Corynebacterium minutissimum in the soft tissue and Corynebacterium minutissimum in the bone. She finished IV Vancomycin for 6 weeks. Pathology was positive for osteomyelitis. Prealbumin from 05/29/18 was 22.0. Encourage nutritional supplementation with protein to help the healing process. CT Pelvis from 05/16/18 showed the skin soft tissue defect overlying the distal portion of the sacrum as progressed. The defect abuts the sacral bone although there is no evidence of bony destruction at this time. Today she denies fever. Her appetite is ok. She has some concerns about increasing pain and some drainage. She is tolerating the wound VAC at the higher setting. Progress of Wound: Ms. Chavez is here post recent hospital admission for extensive surgical debridement due to hypergranulation tissue. Doing well post discharge. Currently has a wound Vac on and denies any concerns in that regard. - Physical Exam Vital Signs Temp Pulse Resp BP 97.3 F L 118 H 18 135/74 H 09/18/18 09:04 09/18/18 09:04 09/18/18 09:04 09/18/18 09:04 General: Alert, Oriented x3, Cooperative, No apparent distress HEENT: Atraumatic, Normocephalic Oral: Moist Mucosa Neck: Supple Lungs: Normal air movement Abdomen: Non Tender, Obese Extremities: No cyanosis Skin: Ulcer/ Wound Wound Measurements and Assessment WC - Nurse 1 - General Ulcer Measurement Start: 09/04/18 08:53 Freq: Status: Active Protocol: Activity Type Activity Date Activity User E-Sign Co-Sign Detail Recorded Client Recorded Date Recorded By Document 09/18/18 09:04 [facility] [id number] 09/18/18 09:14 [facility] 09/18/18 09:04 Wound Center Nurse 1 [Ulcer Assessment] #7 sacrum -Combined with other wound No -Current Size (cm) - Length 6.2 -Current Size (cm) - Width 15.7 -Current Size (cm) - Depth 5.1 -Total Square Cm 97.34 -Date of Last Picture (Recall this 09/18/18 field) -Photo Taken Yes -Epithelialization None Present -Tunneling No -Undermining/Tunneling Yes -Undermining/Tunneling Starts (O' 12 clock) -Undermining/Tunneling Ends (O'clock) 12 -Maximum Distance (cm) 4.8 -Circular Undermining No -Classification - Thickness Full Thickness with Exposed Support Structure -Exudate Amt Small -Exudate Type Sanguineous -Wound Margin Distinct, Outline Attached -Granulation Amt Large (67-100%) -Granulation Quality Red -Slough/Fibrin Yes -Necrosis Amt Small (1-33%) -Necrotic Tissue Type Adherent Slough -Structure Exposed Bone -Texture (Amanda-wound Skin Appearance) Assessed -Moisture (Amanda-wound Skin Appearance Assessed ) -Color (Amanda-wound Skin Appearance) Assessed Erythema -Temperature (Amanda-wound Skin No Abnormality Appearance) (Pt Warm) -Tenderness on Palpation (Amanda-wound Yes Skin Appearance) -Ulcer Cleansing Wound Cleanser -Foul Odor after Cleansing No -Anesthetic Used 4% Lidocaine Solution WC - Nurse 2 - General Ulcer CM Notes Start: 09/04/18 08:53 Freq: Status: Active Protocol: Activity Type Activity Date Activity User E-Sign Co-Sign Detail Recorded Client Recorded Date Recorded By Document 09/18/18 09:33 MW [id number] 09/18/18 09:36 MW 09/18/18 09:33 Wound Center Nurse 2 [Procedure/Treatment] -Time 09:34 -Correct Patient Yes -Correct Side, Site, Position Yes -Correct Procedure Yes -Procedure Performed Yes -Type of Procedure Debridement -Clinical Debridement Subcutaneous -Post Debridement Size (cm) - Length 7.0 -Post Debridement Size (cm) - Width 16.0 -Post Debridement Size (cm) - Depth 5.0 -Total Square Cm 112.00 -Wound/Ulcer Outcome Not Healed -Ulcer Cleansing Rinsed/ Irrigated with Saline -Foul Odor after Cleansing No -Bioengineered Tissue No -Bleeding Controlled with Pressure -Offloading No -Treatment Response Procedure Tolerated Well [See Physician Procedure note for Specifics] Pain Scale: 0-10 Numeric [Pain] -Is Patient Pain Free? Yes Musculoskeletal: No Muscle Wasting Neurological: Cranial nerves II-XII grossly intact Psych/Mental Status: Normal Affect Debridement Note Post-Debridement Measurements/Treatment WC - Nurse 2 - General Ulcer CM Notes Start: 09/04/18 08:53 Freq: Status: Active Protocol: Activity Type Activity Date Activity User E-Sign Co-Sign Detail Recorded Client Recorded Date Recorded By Document 09/04/18 09:24 MW [id number] 09/04/18 09:29 MW Document 09/18/18 09:33 MW [id number] 09/18/18 09:36 MW 09/04/18 09/18/18 09:24 09:33 Wound Center Nurse 2 #7 sacrum -Time 09:27 09:34 -Correct Patient Yes Yes -Correct Side, Site, Position Yes Yes -Correct Procedure Yes Yes -Procedure Performed Yes Yes -Type of Procedure Debridement Debridement -Clinical Debridement Subcutaneous Subcutaneous -Post Debridement Size (cm) - Length 1.9 7.0 -Post Debridement Size (cm) - Width 4.9 16.0 -Post Debridement Size (cm) - Depth 2.3 5.0 -Total Square Cm 9.31 112.00 -Wound/Ulcer Outcome Not Healed Not Healed -Ulcer Cleansing Rinsed/ Rinsed/ Irrigated with Irrigated with Saline Saline -Foul Odor after Cleansing No No -Bioengineered Tissue No No -Bleeding Controlled with Pressure Pressure -Offloading No No -Treatment Response Procedure Procedure Tolerated Well Tolerated Well Pain Scale: 0-10 Numeric Is Patient Pain Free? Yes Yes Wound debrided: Sacral Wound Grade/Stage: Stage IV Type of Debridement: Excisional debridement Anesthesia Used: 4% Lidocaine Solution Depth: Down to and including healthy tissue, in the subcutaneous layer, to bone Percentage of wound debrided: 100 Instrument Used: 7mm curette Tissue Removed: Slough and devitalized tissue Severity: Fat Layer Exposed Amount of bleeding with debridement: Mild Bleeding Controlled with: Pressure Patient tolerated procedure well Assessment/Plan Active Problems (Last Reviewed 05/16/18 @ 14:58 by Raúl Jopperi, DO) Surgical wound present (Chronic) Non-healing surgical wound (Chronic) Pressure ulcer of sacral region, stage 4 (Chronic) Assessment: 1. Sacral pressure sore, Stage IV. 2. Osteomyelitis. 3. Severe hypergranulation tissue sacral ulcer. 4. s/p repair colovaginal fistula. 5. s/p excision sacral pressure sore, Stage IV, with partial ostectomy for osteomyelitis. Plan: Depth and circumference again significantly increased after recent intra - op surgical debridement secondary to hypergranulation tissue. No new concerns. Had post - op bleed however at discharge Hgb was 8.2g/dl. She was also discharged on iron supplements. CBC ordered. Continue wound VAC at 150 mmHg and change every other day. Continue optimal protein intake. Her questions were answered and she was advised to call with any further questions or concerns. Follow-up in 1 week. This note was generated with [employer] dictation software. It may contain incorrect words, spelling, and punctuation that were not noted in checking the note before signing.
[2018-09-18 16:59] LABS: Hematocrit 29.1 % (37-47); Hemoglobin 8.7 g/dl (12.0-15.0); Mean Corp Hgb Conc 29.9 g/gl (32-36); Mean Corpuscular Hgb 25.7 pg (27.0-32.0); Mean Corpuscular Volume 85.8 fL (81-99); Platelet Count 532 K/mm3 (150-450); RBC Distribution Width CV 16.2 % (11.6-14.6); RBC Distribution Width SD 50.6 fl (35.1-43.9); Red Blood Count 3.39 M/mm3 (4.2-5.4); White Blood Count 15.6 K/mm3 (4.4-11.0)
[2018-09-18 17:02] LABS: Scan Indicated on CBC? Y/N NO
[2018-09-25 08:55] VITALS: BP 151/63; PULSE 110; RESP 18; TEMP 36.1; BMI 34.8
--- NOTE | 2018-09-25 09:32 | PCM.WC.PN ---
(1) Non-healing surgical wound Status: Chronic Current Visit: Yes Code(s): T81.89XA - Other complications of procedures, not elsewhere classified, initial encounter (2) Surgical wound present Status: Chronic Current Visit: Yes Code(s): T14.8XXA - Other injury of unspecified body region, initial encounter (3) Pressure ulcer of sacral region, stage 4 Status: Chronic Current Visit: Yes Code(s): L89.154 - Pressure ulcer of sacral region, stage 4 Type of Wound Chief Complaint: Sacral pressure sore, Stage IV. History of Wound: Surgery 05/14/18 - Excision sacral pressure sore, Stage IV, with partial ostectomy for osteomyelitis. Wound care - VAC. Operative culture - Staphylococcus epidermidis and Corynebacterium minutissimum in the soft tissue and Corynebacterium minutissimum in the bone. She finished IV Vancomycin for 6 weeks. Pathology was positive for osteomyelitis. Prealbumin from 05/29/18 was 22.0. Encourage nutritional supplementation with protein to help the healing process. CT Pelvis from 05/16/18 showed the skin soft tissue defect overlying the distal portion of the sacrum as progressed. The defect abuts the sacral bone although there is no evidence of bony destruction at this time. Today she denies fever. Her appetite is ok. She has some concerns about increasing pain and some drainage. She is tolerating the wound VAC at the higher setting. Progress of Wound: Stable wound. Has been having problems again with the VAC. - Physical Exam Vital Signs Temp Pulse Resp BP 97 F L 110 H 18 151/63 H 09/25/18 08:55 09/25/18 08:55 09/25/18 08:55 09/25/18 08:55 General: Alert, Oriented x3, Cooperative, No apparent distress HEENT: Atraumatic, Normocephalic Oral: Moist Mucosa Neck: Supple Lungs: Normal air movement Abdomen: Non Tender Extremities: No cyanosis Skin: Ulcer/ Wound Wound Measurements and Assessment WC - Nurse 1 - General Ulcer Measurement Start: 09/04/18 08:53 Freq: Status: Active Protocol: Activity Type Activity Date Activity User E-Sign Co-Sign Detail Recorded Client Recorded Date Recorded By Document 09/25/18 08:55 RB [id number] 09/25/18 08:59 RB 09/25/18 08:55 Wound Center Nurse 1 [Ulcer Assessment] #7 sacrum -Combined with other wound No -Current Size (cm) - Length 6.5 -Current Size (cm) - Width 16 -Current Size (cm) - Depth 4.7 -Total Square Cm 104.0 -Photo Taken No -Tunneling No -Undermining/Tunneling Yes -Undermining/Tunneling Starts (O' 12 clock) -Undermining/Tunneling Ends (O'clock) 12 -Maximum Distance (cm) 3.7 -Circular Undermining No -Exudate Amt Large -Exudate Type Serosanguineous -Wound Margin Distinct, Outline Attached -Granulation Amt Large (67-100%) -Granulation Quality [place] Red -Slough/Fibrin Yes -Necrosis Amt Small (1-33%) -Necrotic Tissue Type Adherent Slough -Structure Exposed Bone -Texture (Amanda-wound Skin Appearance) Assessed -Moisture (Amanda-wound Skin Appearance Assessed ) -Color (Amanda-wound Skin Appearance) Assessed -Temperature (Amanda-wound Skin No Abnormality Appearance) (Pt Warm) -Tenderness on Palpation (Amanda-wound No Skin Appearance) -Ulcer Cleansing Wound Cleanser -Foul Odor after Cleansing No -Anesthetic Used 4% Lidocaine Solution WC - Nurse 2 - General Ulcer CM Notes Start: 09/04/18 08:53 Freq: Status: Active Protocol: Activity Type Activity Date Activity User E-Sign Co-Sign Detail Recorded Client Recorded Date Recorded By Document 09/25/18 09:07 MW [id number] 09/25/18 09:11 MW 09/25/18 09:07 Wound Center Nurse 2 [Procedure/Treatment] -Time 09:07 -Correct Patient Yes -Correct Side, Site, Position Yes -Correct Procedure Yes -Procedure Performed Yes -Type of Procedure Debridement -Clinical Debridement Subcutaneous -Post Debridement Size (cm) - Length 6.5 -Post Debridement Size (cm) - Width 16.5 -Post Debridement Size (cm) - Depth 5.3 -Total Square Cm 107.25 -Wound/Ulcer Outcome Not Healed -Ulcer Cleansing Rinsed/ Irrigated with Saline -Foul Odor after Cleansing No -Bioengineered Tissue No -Bleeding Controlled with Pressure -Offloading No -Treatment Response Procedure Tolerated Well [See Physician Procedure note for Specifics] Pain Scale: 0-10 Numeric [Pain] -Is Patient Pain Free? Yes Musculoskeletal: No Muscle Wasting Neurological: Cranial nerves II-XII grossly intact Psych/Mental Status: Normal Affect Debridement Note Post-Debridement Measurements/Treatment WC - Nurse 2 - General Ulcer CM Notes Start: 09/04/18 08:53 Freq: Status: Active Protocol: Activity Type Activity Date Activity User E-Sign Co-Sign Detail Recorded Client Recorded Date Recorded By Document 09/04/18 09:24 MW [id number] 09/04/18 09:29 MW Document 09/18/18 09:33 MW [id number] 09/18/18 09:36 MW Document 09/25/18 09:07 MW [id number] 09/25/18 09:11 MW 09/04/18 09/18/18 09/25/18 09:24 09:33 09:07 Wound Center Nurse 2 #7 sacrum -Time 09:27 09:34 09:07 -Correct Patient Yes Yes Yes -Correct Side, Site, Position Yes Yes Yes -Correct Procedure Yes Yes Yes -Procedure Performed Yes Yes Yes -Type of Procedure Debridement Debridement Debridement -Clinical Debridement Subcutaneous Subcutaneous Subcutaneous -Post Debridement Size (cm) - Length 1.9 7.0 6.5 -Post Debridement Size (cm) - Width 4.9 16.0 16.5 -Post Debridement Size (cm) - Depth 2.3 5.0 5.3 -Total Square Cm 9.31 112.00 107.25 -Wound/Ulcer Outcome Not Healed Not Healed Not Healed -Ulcer Cleansing Rinsed/ Rinsed/ Rinsed/ Irrigated with Irrigated with Irrigated with Saline Saline Saline -Foul Odor after Cleansing No No No -Bioengineered Tissue No No No -Bleeding Controlled with Pressure Pressure Pressure -Offloading No No No -Treatment Response Procedure Procedure Procedure Tolerated Well Tolerated Well Tolerated Well Pain Scale: 0-10 Numeric Is Patient Pain Free? Yes Yes Yes Wound debrided: Sacral Wound Grade/Stage: Stage IV Type of Debridement: Excisional debridement Anesthesia Used: 4% Lidocaine Solution Depth: Down to and including healthy tissue, in the subcutaneous layer Instrument Used: 7mm curette Tissue Removed: slough and devitalized tissue Severity: Fat Layer Exposed Amount of bleeding with debridement: Mild Bleeding Controlled with: Pressure Patient tolerated procedure well Assessment/Plan Active Problems (Last Reviewed 05/16/18 @ 14:58 by Raúl Villareal DO) Surgical wound present (Chronic) Non-healing surgical wound (Chronic) Pressure ulcer of sacral region, stage 4 (Chronic) Assessment: 1. Sacral pressure sore, Stage IV. 2. Osteomyelitis. 3. Severe hypergranulation tissue sacral ulcer. 4. s/p repair colovaginal fistula. 5. s/p excision sacral pressure sore, Stage IV, with partial ostectomy for osteomyelitis. Plan: Debridement done as documented above, procedure was well tolerated. Continue wound VAC at 150 mmHg and change every other day. She is however having problems with VAC leakage. She was advised to contact [facility] for a new VAC. Continue optimal protein intake. Her questions were answered and she was advised to call with any further questions or concerns. Follow-up with Dr. Hansen on Sunday and in 2 weeks with me. This note was generated with [employer] dictation software. It may contain incorrect words, spelling, and punctuation that were not noted in checking the note before signing.
--- NOTE | 2018-09-25 09:36 | PN.PCM_ITS ---
(1) Non-healing surgical wound Status: Chronic Current Visit: Yes Code(s): T81.89XA - Other complications of procedures, not elsewhere classified, initial encounter (2) Surgical wound present Status: Chronic Current Visit: Yes Code(s): T14.8XXA - Other injury of unspecified body region, initial encounter (3) Pressure ulcer of sacral region, stage 4 Status: Chronic Current Visit: Yes Code(s): L89.154 - Pressure ulcer of sacral region, stage 4 Type of Wound Chief Complaint: Sacral pressure sore, Stage IV. History of Wound: Surgery 05/14/18 - Excision sacral pressure sore, Stage IV, with partial ostectomy for osteomyelitis. Wound care - VAC. Operative culture - Staphylococcus epidermidis and Corynebacterium minutissimum in the soft tissue and Corynebacterium minutissimum in the bone. She finished IV Vancomycin for 6 weeks. Pathology was positive for osteomyelitis. Prealbumin from 05/29/18 was 22.0. Encourage nutritional supplementation with protein to help the healing process. CT Pelvis from 05/16/18 showed the skin soft tissue defect overlying the distal portion of the sacrum as progressed. The defect abuts the sacral bone although there is no evidence of bony destruction at this time. Today she denies fever. Her appetite is ok. She has some concerns about increasing pain and some drainage. She is tolerating the wound VAC at the higher setting. Progress of Wound: Stable wound. Has been having problems again with the VAC. - Physical Exam Vital Signs Temp Pulse Resp BP 97 F L 110 H 18 151/63 H 09/25/18 08:55 09/25/18 08:55 09/25/18 08:55 09/25/18 08:55 General: Alert, Oriented x3, Cooperative, No apparent distress HEENT: Atraumatic, Normocephalic Oral: Moist Mucosa Neck: Supple Lungs: Normal air movement Abdomen: Non Tender Extremities: No cyanosis Skin: Ulcer/ Wound Wound Measurements and Assessment WC - Nurse 1 - General Ulcer Measurement Start: 09/04/18 08:53 Freq: Status: Active Protocol: Activity Type Activity Date Activity User E-Sign Co-Sign Detail Recorded Client Recorded Date Recorded By Document 09/25/18 08:55 RB [id number] 09/25/18 08:59 RB 09/25/18 08:55 Wound Center Nurse 1 [Ulcer Assessment] #7 sacrum -Combined with other wound No -Current Size (cm) - Length 6.5 -Current Size (cm) - Width 16 -Current Size (cm) - Depth 4.7 -Total Square Cm 104.0 -Photo Taken No -Tunneling No -Undermining/Tunneling Yes -Undermining/Tunneling Starts (O' 12 clock) -Undermining/Tunneling Ends (O'clock) 12 -Maximum Distance (cm) 3.7 -Circular Undermining No -Exudate Amt Large -Exudate Type Serosanguineous -Wound Margin Distinct, Outline Attached -Granulation Amt Large (67-100%) -Granulation Quality [place] Red -Slough/Fibrin Yes -Necrosis Amt Small (1-33%) -Necrotic Tissue Type Adherent Slough -Structure Exposed Bone -Texture (Amanda-wound Skin Appearance) Assessed -Moisture (Amanda-wound Skin Appearance Assessed ) -Color (Amanda-wound Skin Appearance) Assessed -Temperature (Amanda-wound Skin No Abnormality Appearance) (Pt Warm) -Tenderness on Palpation (Amanda-wound No Skin Appearance) -Ulcer Cleansing Wound Cleanser -Foul Odor after Cleansing No -Anesthetic Used 4% Lidocaine Solution WC - Nurse 2 - General Ulcer CM Notes Start: 09/04/18 08:53 Freq: Status: Active Protocol: Activity Type Activity Date Activity User E-Sign Co-Sign Detail Recorded Client Recorded Date Recorded By Document 09/25/18 09:07 MW [id number] 09/25/18 09:11 MW 09/25/18 09:07 Wound Center Nurse 2 [Procedure/Treatment] -Time 09:07 -Correct Patient Yes -Correct Side, Site, Position Yes -Correct Procedure Yes -Procedure Performed Yes -Type of Procedure Debridement -Clinical Debridement Subcutaneous -Post Debridement Size (cm) - Length 6.5 -Post Debridement Size (cm) - Width 16.5 -Post Debridement Size (cm) - Depth 5.3 -Total Square Cm 107.25 -Wound/Ulcer Outcome Not Healed -Ulcer Cleansing Rinsed/ Irrigated with Saline -Foul Odor after Cleansing No -Bioengineered Tissue No -Bleeding Controlled with Pressure -Offloading No -Treatment Response Procedure Tolerated Well [See Physician Procedure note for Specifics] Pain Scale: 0-10 Numeric [Pain] -Is Patient Pain Free? Yes Musculoskeletal: No Muscle Wasting Neurological: Cranial nerves II-XII grossly intact Psych/Mental Status: Normal Affect Debridement Note Post-Debridement Measurements/Treatment WC - Nurse 2 - General Ulcer CM Notes Start: 09/04/18 08:53 Freq: Status: Active Protocol: Activity Type Activity Date Activity User E-Sign Co-Sign Detail Recorded Client Recorded Date Recorded By Document 09/04/18 09:24 MW [id number] 09/04/18 09:29 MW Document 09/18/18 09:33 MW [id number] 09/18/18 09:36 MW Document 09/25/18 09:07 MW [id number] 09/25/18 09:11 MW 09/04/18 09/18/18 09/25/18 09:24 09:33 09:07 Wound Center Nurse 2 #7 sacrum -Time 09:27 09:34 09:07 -Correct Patient Yes Yes Yes -Correct Side, Site, Position Yes Yes Yes -Correct Procedure Yes Yes Yes -Procedure Performed Yes Yes Yes -Type of Procedure Debridement Debridement Debridement -Clinical Debridement Subcutaneous Subcutaneous Subcutaneous -Post Debridement Size (cm) - Length 1.9 7.0 6.5 -Post Debridement Size (cm) - Width 4.9 16.0 16.5 -Post Debridement Size (cm) - Depth 2.3 5.0 5.3 -Total Square Cm 9.31 112.00 107.25 -Wound/Ulcer Outcome Not Healed Not Healed Not Healed -Ulcer Cleansing Rinsed/ Rinsed/ Rinsed/ Irrigated with Irrigated with Irrigated with Saline Saline Saline -Foul Odor after Cleansing No No No -Bioengineered Tissue No No No -Bleeding Controlled with Pressure Pressure Pressure -Offloading No No No -Treatment Response Procedure Procedure Procedure Tolerated Well Tolerated Well Tolerated Well Pain Scale: 0-10 Numeric Is Patient Pain Free? Yes Yes Yes Wound debrided: Sacral Wound Grade/Stage: Stage IV Type of Debridement: Excisional debridement Anesthesia Used: 4% Lidocaine Solution Depth: Down to and including healthy tissue, in the subcutaneous layer Instrument Used: 7mm curette Tissue Removed: slough and devitalized tissue Severity: Fat Layer Exposed Amount of bleeding with debridement: Mild Bleeding Controlled with: Pressure Patient tolerated procedure well Assessment/Plan Active Problems (Last Reviewed 05/16/18 @ 14:58 by Raúl Villareal DO) Surgical wound present (Chronic) Non-healing surgical wound (Chronic) Pressure ulcer of sacral region, stage 4 (Chronic) Assessment: 1. Sacral pressure sore, Stage IV. 2. Osteomyelitis. 3. Severe hypergranulation tissue sacral ulcer. 4. s/p repair colovaginal fistula. 5. s/p excision sacral pressure sore, Stage IV, with partial ostectomy for osteomyelitis. Plan: Debridement done as documented above, procedure was well tolerated. Continue wound VAC at 150 mmHg and change every other day. She is however having problems with VAC leakage. She was advised to contact [facility] for a new VAC. Continue optimal protein intake. Her questions were answered and she was advised to call with any further questions or concerns. Follow-up with Dr. Hansen on Sunday and in 2 weeks with me. This note was generated with [employer] dictation software. It may contain incorrect words, spelling, and punctuation that were not noted in checking the note before signing.
[2018-09-30 08:24] VITALS: BP 133/69; PULSE 110; RESP 18; TEMP 36.8; BMI 34.8
--- NOTE | 2018-09-30 17:33 | PCM.WC.PN ---
Type of Wound Date of Service: 09/30/18 Chief Complaint: Sacral pressure sore, Stage IV. History of Wound: Surgery 09/09/18 - Excision sacral pressure sore, Stage IV, with partial ostectomy for osteomyelitis. Wound care - VAC with adaptic. Operative culture - Coag negative Staph and Actinomyces odontolyticus. She was treated with Doxycycline and has finished them. Pathology - negative for osteomyelitis. Prealbumin from 09/10/18 was 18.1. Encourage nutritional supplementation with protein to help the healing process. Today she denies fever. Her appetite is ok. Progress of Wound: Stable with recent surgery 09/09/18. - Physical Exam Vital Signs Temp Pulse Resp BP 98.2 F 110 H 18 133/69 H 09/30/18 08:24 09/30/18 08:24 09/30/18 08:24 09/30/18 08:24 Wound Measurements and Assessment - Nurse 1 - General Ulcer Measurement Start: 09/04/18 08:53 Freq: Status: Active Protocol: Activity Type Activity Date Activity User E-Sign Co-Sign Detail Recorded Client Recorded Date Recorded By Document 09/30/18 08:24 DV [id number] 09/30/18 08:33 DV 09/30/18 08:24 Wound Center Nurse 1 [Ulcer Assessment] #7 sacrum -Combined with other wound No -Photo Taken No -Epithelialization None Present -Tunneling No -Undermining/Tunneling No -Circular Undermining No -Exudate Amt Large -Exudate Type Serosanguineous -Wound Margin Distinct, Outline Attached -Granulation Amt Medium (34-66%) -Granulation Quality Red -Slough/Fibrin Yes -Necrosis Amt Large (67-100%) -Necrotic Tissue Type Adherent Slough -Structure Exposed Fascia Muscle Fat Layer Exposed -Texture (Amanda-wound Skin Appearance) Assessed Scarring -Moisture (Amanda-wound Skin Appearance Assessed ) Weeping -Color (Amanda-wound Skin Appearance) Assessed Erythema -Temperature (Amanda-wound Skin No Abnormality Appearance) (Pt Warm) -Ulcer Cleansing soap -Foul Odor after Cleansing No -Anesthetic Used 4% Lidocaine Solution - Nurse 2 - General Ulcer CM Notes Start: 09/04/18 08:53 Freq: Status: Active Protocol: Activity Type Activity Date Activity User E-Sign Co-Sign Detail Recorded Client Recorded Date Recorded By Document 09/30/18 09:10 JF [id number] 09/30/18 09:12 JF 09/30/18 09:10 Wound Center Nurse 2 [Procedure/Treatment] -Time 09:10 -Correct Patient Yes -Correct Side, Site, Position Yes -Correct Procedure Yes -Procedure Performed Yes -Type of Procedure Debridement -Clinical Debridement Muscle -Post Debridement Size (cm) - Length 7 -Post Debridement Size (cm) - Width 14.6 -Post Debridement Size (cm) - Depth 4.5 -Total Square Cm 102.2 -Wound/Ulcer Outcome Not Healed -Ulcer Cleansing Rinsed/ Irrigated with Saline -Foul Odor after Cleansing No -Bioengineered Tissue No -Bleeding Controlled with Pressure -Offloading No -Treatment Response Procedure Tolerated Well [See Physician Procedure note for Specifics] Pain Scale: 0-10 Numeric [Pain] -Is Patient Pain Free? Yes Debridement Note Post-Debridement Measurements/Treatment WC - Nurse 2 - General Ulcer CM Notes Start: 09/04/18 08:53 Freq: Status: Active Protocol: Activity Type Activity Date Activity User E-Sign Co-Sign Detail Recorded Client Recorded Date Recorded By Document 09/04/18 09:24 MW [id number] 09/04/18 09:29 MW Document 09/18/18 09:33 MW [id number] 09/18/18 09:36 MW Document 09/25/18 09:07 MW [id number] 09/25/18 09:11 MW Document 09/30/18 09:10 JF [id number] 09/30/18 09:12 JF 09/04/18 09/18/18 09/25/18 09:24 09:33 09:07 Wound Center Nurse 2 #7 sacrum -Time 09:27 09:34 09:07 -Correct Patient Yes Yes Yes -Correct Side, Site, Position Yes Yes Yes -Correct Procedure Yes Yes Yes -Procedure Performed Yes Yes Yes -Type of Procedure Debridement Debridement Debridement -Clinical Debridement Subcutaneous Subcutaneous Subcutaneous -Post Debridement Size (cm) - Length 1.9 7.0 6.5 -Post Debridement Size (cm) - Width 4.9 16.0 16.5 -Post Debridement Size (cm) - Depth 2.3 5.0 5.3 -Total Square Cm 9.31 112.00 107.25 -Wound/Ulcer Outcome Not Healed Not Healed Not Healed -Ulcer Cleansing Rinsed/ Rinsed/ Rinsed/ Irrigated with Irrigated with Irrigated with Saline Saline Saline -Foul Odor after Cleansing No No No -Bioengineered Tissue No No No -Bleeding Controlled with Pressure Pressure Pressure -Offloading No No No -Treatment Response Procedure Procedure Procedure Tolerated Well Tolerated Well Tolerated Well Pain Scale: 0-10 Numeric Is Patient Pain Free? Yes Yes Yes 09/30/18 09:10 Wound Center Nurse 2 #7 sacrum -Time 09:10 -Correct Patient Yes -Correct Side, Site, Position Yes -Correct Procedure Yes -Procedure Performed Yes -Type of Procedure Debridement -Clinical Debridement Muscle -Post Debridement Size (cm) - Length 7 -Post Debridement Size (cm) - Width 14.6 -Post Debridement Size (cm) - Depth 4.5 -Total Square Cm 102.2 -Wound/Ulcer Outcome Not Healed -Ulcer Cleansing Rinsed/ Irrigated with Saline -Foul Odor after Cleansing No -Bioengineered Tissue No -Bleeding Controlled with Pressure -Offloading No -Treatment Response Procedure Tolerated Well Pain Scale: 0-10 Numeric Is Patient Pain Free? Yes Wound debrided: #7 Sacral area. Laterality: Not Applicable Wound Grade/Stage: IV. Type of Debridement: Excisional debridement Anesthesia Used: 4% Lidocaine Solution Depth: Down to and including healthy tissue, in the subcutaneous layer, to muscle, to bone - bone is exposed but not debrided. Percentage of wound debrided: 100 Instrument Used: 7mm curette Tissue Removed: subcutaneous tissue and muscle. Severity: Fat Layer Exposed - muscle is exposed. bone is exposed but not debrided. Amount of bleeding with debridement: Mild Bleeding Controlled with: Pressure Patient tolerated procedure well Assessment/Plan Assessment: 1. Sacral pressure sore, Stage IV. 2. History of osteomyelitis. 3. s/p repair colovaginal fistula. 4. s/p excision sacral pressure sore, Stage IV, with partial ostectomy for osteomyelitis. Plan: Continue wound VAC at 150 mmHg continuous suction to be changed three times per week. She had been using adaptic. Will stop that to see if less hypergranulation tissue develops. Operative culture showed Coag negative Staphy and Actinomyces odontolyticus. She was treated with Doxycycline and has finished them. Prealbumin from 09/10/18 was 18.1. Encourage nutritional supplementation with protein to help the healing process. Followup 2 weeks.
--- NOTE | 2018-10-01 17:34 | PN.PCM_ITS ---
Type of Wound Date of Service: 09/30/18 Chief Complaint: Sacral pressure sore, Stage IV. History of Wound: Surgery 09/09/18 - Excision sacral pressure sore, Stage IV, with partial ostectomy for osteomyelitis. Wound care - VAC with adaptic. Operative culture - Coag negative Staph and Actinomyces odontolyticus. She was treated with Doxycycline and has finished them. Pathology - negative for osteomyelitis. Prealbumin from 09/10/18 was 18.1. Encourage nutritional supplementation with protein to help the healing process. Today she denies fever. Her appetite is ok. Progress of Wound: Stable with recent surgery 09/09/18. - Physical Exam Vital Signs Temp Pulse Resp BP 98.2 F 110 H 18 133/69 H 09/30/18 08:24 09/30/18 08:24 09/30/18 08:24 09/30/18 08:24 Wound Measurements and Assessment - Nurse 1 - General Ulcer Measurement Start: 09/04/18 08:53 Freq: Status: Active Protocol: Activity Type Activity Date Activity User E-Sign Co-Sign Detail Recorded Client Recorded Date Recorded By Document 09/30/18 08:24 DV [id number] 09/30/18 08:33 DV 09/30/18 08:24 Wound Center Nurse 1 [Ulcer Assessment] #7 sacrum -Combined with other wound No -Photo Taken No -Epithelialization None Present -Tunneling No -Undermining/Tunneling No -Circular Undermining No -Exudate Amt Large -Exudate Type Serosanguineous -Wound Margin Distinct, Outline Attached -Granulation Amt Medium (34-66%) -Granulation Quality Red -Slough/Fibrin Yes -Necrosis Amt Large (67-100%) -Necrotic Tissue Type Adherent Slough -Structure Exposed Fascia Muscle Fat Layer Exposed -Texture (Amanda-wound Skin Appearance) Assessed Scarring -Moisture (Amanda-wound Skin Appearance Assessed ) Weeping -Color (Amanda-wound Skin Appearance) Assessed Erythema -Temperature (Amanda-wound Skin No Abnormality Appearance) (Pt Warm) -Ulcer Cleansing soap -Foul Odor after Cleansing No -Anesthetic Used 4% Lidocaine Solution - Nurse 2 - General Ulcer CM Notes Start: 09/04/18 08:53 Freq: Status: Active Protocol: Activity Type Activity Date Activity User E-Sign Co-Sign Detail Recorded Client Recorded Date Recorded By Document 09/30/18 09:10 JF [id number] 09/30/18 09:12 JF 09/30/18 09:10 Wound Center Nurse 2 [Procedure/Treatment] -Time 09:10 -Correct Patient Yes -Correct Side, Site, Position Yes -Correct Procedure Yes -Procedure Performed Yes -Type of Procedure Debridement -Clinical Debridement Muscle -Post Debridement Size (cm) - Length 7 -Post Debridement Size (cm) - Width 14.6 -Post Debridement Size (cm) - Depth 4.5 -Total Square Cm 102.2 -Wound/Ulcer Outcome Not Healed -Ulcer Cleansing Rinsed/ Irrigated with Saline -Foul Odor after Cleansing No -Bioengineered Tissue No -Bleeding Controlled with Pressure -Offloading No -Treatment Response Procedure Tolerated Well [See Physician Procedure note for Specifics] Pain Scale: 0-10 Numeric [Pain] -Is Patient Pain Free? Yes Debridement Note Post-Debridement Measurements/Treatment WC - Nurse 2 - General Ulcer CM Notes Start: 09/04/18 08:53 Freq: Status: Active Protocol: Activity Type Activity Date Activity User E-Sign Co-Sign Detail Recorded Client Recorded Date Recorded By Document 09/04/18 09:24 MW [id number] 09/04/18 09:29 MW Document 09/18/18 09:33 MW [id number] 09/18/18 09:36 MW Document 09/25/18 09:07 MW [id number] 09/25/18 09:11 MW Document 09/30/18 09:10 JF [id number] 09/30/18 09:12 JF 09/04/18 09/18/18 09/25/18 09:24 09:33 09:07 Wound Center Nurse 2 #7 sacrum -Time 09:27 09:34 09:07 -Correct Patient Yes Yes Yes -Correct Side, Site, Position Yes Yes Yes -Correct Procedure Yes Yes Yes -Procedure Performed Yes Yes Yes -Type of Procedure Debridement Debridement Debridement -Clinical Debridement Subcutaneous Subcutaneous Subcutaneous -Post Debridement Size (cm) - Length 1.9 7.0 6.5 -Post Debridement Size (cm) - Width 4.9 16.0 16.5 -Post Debridement Size (cm) - Depth 2.3 5.0 5.3 -Total Square Cm 9.31 112.00 107.25 -Wound/Ulcer Outcome Not Healed Not Healed Not Healed -Ulcer Cleansing Rinsed/ Rinsed/ Rinsed/ Irrigated with Irrigated with Irrigated with Saline Saline Saline -Foul Odor after Cleansing No No No -Bioengineered Tissue No No No -Bleeding Controlled with Pressure Pressure Pressure -Offloading No No No -Treatment Response Procedure Procedure Procedure Tolerated Well Tolerated Well Tolerated Well Pain Scale: 0-10 Numeric Is Patient Pain Free? Yes Yes Yes 09/30/18 09:10 Wound Center Nurse 2 #7 sacrum -Time 09:10 -Correct Patient Yes -Correct Side, Site, Position Yes -Correct Procedure Yes -Procedure Performed Yes -Type of Procedure Debridement -Clinical Debridement Muscle -Post Debridement Size (cm) - Length 7 -Post Debridement Size (cm) - Width 14.6 -Post Debridement Size (cm) - Depth 4.5 -Total Square Cm 102.2 -Wound/Ulcer Outcome Not Healed -Ulcer Cleansing Rinsed/ Irrigated with Saline -Foul Odor after Cleansing No -Bioengineered Tissue No -Bleeding Controlled with Pressure -Offloading No -Treatment Response Procedure Tolerated Well Pain Scale: 0-10 Numeric Is Patient Pain Free? Yes Wound debrided: #7 Sacral area. Laterality: Not Applicable Wound Grade/Stage: IV. Type of Debridement: Excisional debridement Anesthesia Used: 4% Lidocaine Solution Depth: Down to and including healthy tissue, in the subcutaneous layer, to muscle, to bone - bone is exposed but not debrided. Percentage of wound debrided: 100 Instrument Used: 7mm curette Tissue Removed: subcutaneous tissue and muscle. Severity: Fat Layer Exposed - muscle is exposed. bone is exposed but not debrided. Amount of bleeding with debridement: Mild Bleeding Controlled with: Pressure Patient tolerated procedure well Assessment/Plan Assessment: 1. Sacral pressure sore, Stage IV. 2. History of osteomyelitis. 3. s/p repair colovaginal fistula. 4. s/p excision sacral pressure sore, Sta ge IV, with partial ostectomy for osteomyelitis. Plan: Continue wound VAC at 150 mmHg continuous suction to be changed three times per week. She had been using adaptic. Will stop that to see if less hypergranulation tissue develops. Operative culture showed Coag negative Staphy and Actinomyces odontolyticus. She was treated with Doxycycline and has finished them. Prealbumin from 09/10/18 was 18.1. Encourage nutritional supplementation with protein to help the healing process. Followup 2 weeks.
== END 2018-10-01 23:59 ==
LOC: WC 08:30
PROVIDERS: Surgery; Family Provider Family Medicine Geriatric Medicine; PCP Family Medicine Geriatric Medicine; Referring Provider Internal Medicine; Visit Provider Internal Medicine
DX: L89.154 Pressure ulcer of sacral region, stage 4 (principal); T81.89XA Other complications of procedures, not elsewhere classified, initial encounter; Y83.8 Other surgical procedures as the cause of abnormal reaction of the patient, or of later complication, without mention of misadventure at the time of the procedure
CPT/HCPCS: 11042; 11043; 11045; 11046; 85027; 97605; 97606

== ENCOUNTER → 2018-10-29 13:14 | Outpatient (CLI) | payer MEDICARE, OTHER, SELFPAY ==
[2018-10-21 09:16] VITALS: BMI 34.8
[2018-10-29 17:28] LABS: Absolute Neutrophil Count 6.4 X10^3/uL (2.0-7.7); Basophil# 0.04 X10^3/uL; Basophil% 0.4 % (0-1); Eosinophil# 0.12 X10^3/uL; Eosinophils% 1.1 % (0-5); Hemoglobin 10.4 g/dl (12.0-15.0); Lymphocyte % 22.9 % (19-41); Mean Corp Hgb Conc 28.1 g/gl (32-36); Mean Corpuscular Hgb 21.9 pg (27.0-32.0); Mean Corpuscular Volume 77.9 fL (81-99); Mean Platelet Vol. 9.4 fl (6.2-12.0); Monocyte# 1.45 X10^3/uL; Monocyte% 13.9 % (0-10); Neutrophil # 6.43 X10^3/uL (2.7-7.7); Neutrophil % 61.5 % (47-70); Platelet Count 667 K/mm3 (150-450); RBC Distribution Width CV 17.3 % (11.6-14.6); RBC Distribution Width SD 48.2 fl (35.1-43.9); Red Blood Count 4.75 M/mm3 (4.2-5.4); White Blood Count 10.5 K/mm3 (4.4-11.0)
[2018-10-29 17:34] LABS: POSITIVE COUNT NO; POSITIVE DIFFERENTIAL NO; POSITIVE MORPHOLOGY NO
[2018-10-29 17:47] LABS: Vitamin D,25 Hydroxy 23.4 ng/mL (29.95-100.01)
[2018-10-29 18:04] LABS: ALB/GLOB Ratio 0.8 RATIO (0.9-2.4); AST(SGOT) 14 U/L (15-37); Alanine Aminotransfer ALT/SGPT 20 U/L (13-56); Albumin, Serum 3.5 g/dL (3.2-5.0); Alkaline Phosphatase 82 U/L (45-117); Anion Gap 10 (5-15); BUN 32 mg/dL (7-18); BUN/Creat Ratio 47.3 RATIO (10-20); Calcium,Total 9.5 mg/dL (8.5-10.1); Chloride 105 mmol/L (98-107); Creatinine, Serum 0.68 mg/dL (0.55-1.02); EST Glomerular Filtration Rate 92 mL/min (>60); Est Glom Filt Rate - Afr Amer 112 mL/min (>60); Globulin 4.6 g/dL (2.2-4.2); Glucose 89 mg/dL (74-106); Potassium 4.5 mmol/L (3.5-5.1); Protein, Total 8.1 g/dL (6.4-8.2); Sodium Level 139 mmol/L (136-145); Thyroid Stim Hormone (TSH) 1.55 uIU/mL (0.358-3.74)
== END ==
PROVIDERS: Family Provider Family Medicine Geriatric Medicine; PCP Family Medicine Geriatric Medicine; Visit Provider Family Medicine Geriatric Medicine
DX: E55.9 Vitamin D deficiency, unspecified (principal); I10 Essential (primary) hypertension
CPT/HCPCS: 36415; 80053; 82306; 84443; 85025

== ENCOUNTER 2018-10-30 09:15 | Outpatient (RCR) | payer MEDICARE, OTHER, SELFPAY ==
[2018-10-02 00:38] VITALS: BP 133/69; PULSE 110; RESP 18; TEMP 36.8
[2018-10-09 09:34] VITALS: BP 128/69; PULSE 89; RESP 18; TEMP 36.6; BMI 34.8
--- NOTE | 2018-10-09 10:07 | PCM.WC.PN ---
(1) Pressure ulcer of sacral region, stage 4 Status: Chronic Current Visit: Yes Code(s): L89.154 - Pressure ulcer of sacral region, stage 4 (2) Non-healing surgical wound Status: Chronic Current Visit: Yes Code(s): T81.89XA - Other complications of procedures, not elsewhere classified, initial encounter (3) Morbid obesity with BMI of 40.0-44.9, adult Status: Chronic Current Visit: No Code(s): E66.01 - Morbid (severe) obesity due to excess calories; Z68.41 - Body mass index (BMI) 40.0-44.9, adult Type of Wound Chief Complaint: Sacral pressure sore, Stage IV. History of Wound: Surgery 05/14/18 - Excision sacral pressure sore, Stage IV, with partial ostectomy for osteomyelitis. Wound care - VAC. Operative culture - Staphylococcus epidermidis and Corynebacterium minutissimum in the soft tissue and Corynebacterium minutissimum in the bone. She finished IV Vancomycin for 6 weeks. Pathology was positive for osteomyelitis. Prealbumin from 05/29/18 was 22.0. Encourage nutritional supplementation with protein to help the healing process. CT Pelvis from 05/16/18 showed the skin soft tissue defect overlying the distal portion of the sacrum as progressed. The defect abuts the sacral bone although there is no evidence of bony destruction at this time. Today she denies fever. Her appetite is ok. She has some concerns about increasing pain and some drainage. She is tolerating the wound VAC at the higher setting. Progress of Wound: Foul smell said to have been noted over the past week. Also increased drainage. - Physical Exam Vital Signs Temp Pulse Resp BP 97.8 F 89 18 128/69 H 10/09/18 09:34 10/09/18 09:34 10/09/18 09:34 10/09/18 09:34 General: Alert, Oriented x3, Cooperative, No apparent distress HEENT: Atraumatic, Normocephalic Oral: Moist Mucosa Neck: Supple Lungs: Normal air movement Abdomen: Obese Extremities: No cyanosis Skin: Ulcer/ Wound Wound Measurements and Assessment WC - Nurse 1 - General Ulcer Measurement Start: 10/09/18 09:34 Freq: Status: Active Protocol: Activity Type Activity Date Activity User E-Sign Co-Sign Detail Recorded Client Recorded Date Recorded By Document 10/09/18 09:34 RB [id number] 10/09/18 09:36 RB 10/09/18 09:34 Wound Center Nurse 1 [Ulcer Assessment] #7 sacrum -Combined with other wound No -Current Size (cm) - Length 14.7 -Current Size (cm) - Width 5.5 -Current Size (cm) - Depth 4.5 -Total Square Cm 80.85 -Tunneling No -Undermining/Tunneling Yes -Undermining/Tunneling Starts (O' 8 clock) -Undermining/Tunneling Ends (O'clock) 8 -Maximum Distance (cm) 4 -Circular Undermining No -Exudate Amt Large -Exudate Type Serosanguineous -Wound Margin Thickened & Rolled Under -Granulation Amt Large (67-100%) -Granulation Quality Red -Slough/Fibrin Yes -Necrosis Amt Small (1-33%) -Necrotic Tissue Type Adherent Slough -Structure Exposed N/A -Texture (Amanda-wound Skin Appearance) Assessed -Moisture (Amanda-wound Skin Appearance Assessed ) -Color (Amanda-wound Skin Appearance) Assessed -Temperature (Amanda-wound Skin No Abnormality Appearance) (Pt Warm) -Tenderness on Palpation (Amanda-wound No Skin Appearance) -Ulcer Cleansing Wound Cleanser -Foul Odor after Cleansing No -Anesthetic Used 4% Lidocaine Solution WC - Nurse 2 - General Ulcer CM Notes Start: 10/09/18 09:34 Freq: Status: Active Protocol: Activity Type Activity Date Activity User E-Sign Co-Sign Detail Recorded Client Recorded Date Recorded By Document 10/09/18 10:02 MW [id number] 10/09/18 10:04 MW 10/09/18 10:02 Wound Center Nurse 2 [Procedure/Treatment] -Time 10:03 -Correct Patient Yes -Correct Side, Site, Position Yes -Correct Procedure Yes -Procedure Performed Yes -Type of Procedure Debridement -Clinical Debridement Subcutaneous -Post Debridement Size (cm) - Length 5.5 -Post Debridement Size (cm) - Width 12.5 -Post Debridement Size (cm) - Depth 4.1 -Total Square Cm 68.75 -Wound/Ulcer Outcome Not Healed -Ulcer Cleansing Rinsed/ Irrigated with Saline -Foul Odor after Cleansing No -Bioengineered Tissue No -Bleeding Controlled with Pressure -Offloading No -Treatment Response Procedure Tolerated Well [See Physician Procedure note for Specifics] Pain Scale: 0-10 Numeric [Pain] -Is Patient Pain Free? Yes Musculoskeletal: No Muscle Wasting Neurological: Cranial nerves II-XII grossly intact Psych/Mental Status: Normal Affect Debridement Note Post-Debridement Measurements/Treatment WC - Nurse 2 - General Ulcer CM Notes Start: 10/09/18 09:34 Freq: Status: Active Protocol: Activity Type Activity Date Activity User E-Sign Co-Sign Detail Recorded Client Recorded Date Recorded By Document 10/09/18 10:02 MW [id number] 10/09/18 10:04 MW 10/09/18 10:02 Wound Center Nurse 2 #7 sacrum -Time 10:03 -Correct Patient Yes -Correct Side, Site, Position Yes -Correct Procedure Yes -Procedure Performed Yes -Type of Procedure Debridement -Clinical Debridement Subcutaneous -Post Debridement Size (cm) - Length 5.5 -Post Debridement Size (cm) - Width 12.5 -Post Debridement Size (cm) - Depth 4.1 -Total Square Cm 68.75 -Wound/Ulcer Outcome Not Healed -Ulcer Cleansing Rinsed/ Irrigated with Saline -Foul Odor after Cleansing No -Bioengineered Tissue No -Bleeding Controlled with Pressure -Offloading No -Treatment Response Procedure Tolerated Well Pain Scale: 0-10 Numeric Is Patient Pain Free? Yes Wound debrided: Sacral Wound Grade/Stage: Stage IV Type of Debridement: Excisional debridement Anesthesia Used: 4% Lidocaine Solution Depth: Down to and including healthy tissue, in the subcutaneous layer Percentage of wound debrided: 100 Instrument Used: 7mm curette Tissue Removed: Slough and devitalized tissue Amount of bleeding with debridement: Mild Bleeding Controlled with: Pressure Patient tolerated procedure well Assessment/Plan Active Problems (Last Reviewed 05/16/18 @ 14:58 by Raúl Villareal DO) Non-healing surgical wound (Chronic) Pressure ulcer of sacral region, stage 4 (Chronic) Assessment: 1. Sacral pressure sore, Stage IV. 2. Osteomyelitis. 3. Severe hypergranulation tissue sacral ulcer. 4. s/p repair colovaginal fistula. 5. s/p excision sacral pressure sore, Stage IV, with partial ostectomy for osteomyelitis. Plan: Debridement done as documented above, procedure was well tolerated. Foul smell and increased drainage per patient. Foul smell apprecaited. Clutures taken. Continue wound VAC at 150 mmHg and change every other day. Continue optimal protein intake. Her questions were answered and she was advised to call with any further questions or concerns. Follow-up with Dr. Hansen on Sunday and in 2 weeks with me. This note was generated with [employer] software. It may contain incorrect words, spelling, and punctuation that were not noted in checking the note before signing.
[2018-10-21 09:16] VITALS: BP 152/90; PULSE 93; RESP 18; TEMP 36.8; BMI 34.8
--- NOTE | 2018-10-21 20:03 | PCM.WC.PN ---
Type of Wound Date of Service: 10/21/18 Chief Complaint: Sacral pressure sore, Stage IV. History of Wound: Surgery 09/09/18 - Excision sacral pressure sore, Stage IV, with partial ostectomy for osteomyelitis. Wound care - VAC. Operative culture - Coag negative Staph and Actinomyces odontolyticus. She was treated with Doxycycline and has finished them. Recent wound culture from 10/09/18 showed Streptococcus agalactiae and Corynebacterium striatum. She was placed on Augmentin. Pathology - negative for osteomyelitis. Prealbumin from 09/10/18 was 18.1. Encourage nutritional supplementation with protein to help the healing process. Today she denies fever. Her appetite is ok. Progress of Wound: Stable with some hypergranulation tissue starting again. - Physical Exam Vital Signs Temp Pulse Resp BP 98.2 F 93 18 152/90 H 10/21/18 09:16 10/21/18 09:16 10/21/18 09:16 10/21/18 09:16 Wound Measurements and Assessment WC - Nurse 1 - General Ulcer Measurement Start: 10/09/18 09:34 Freq: Status: Active Protocol: Activity Type Activity Date Activity User E-Sign Co-Sign Detail Recorded Client Recorded Date Recorded By Document 10/21/18 09:16 DL [id number] 10/21/18 09:29 DL 10/21/18 09:16 Wound Center Nurse 1 [Ulcer Assessment] #7 sacrum -Current Size (cm) - Length 5 -Current Size (cm) - Width 10.2 -Current Size (cm) - Depth 3.7 -Total Square Cm 51.0 -Date of Last Picture (Recall this 10/21/18 field) -Photo Taken Yes -Classification - Thickness Full Thickness with Exposed Support Structure -Exudate Amt Large -Exudate Type Serosanguineous -Wound Margin Distinct, Outline Attached -Granulation Amt Large (67-100%) -Granulation Quality Red -Slough/Fibrin Yes -Necrosis Amt Small (1-33%) -Necrotic Tissue Type Adherent Slough -Structure Exposed Fascia Muscle Fat Layer Exposed -Texture (Amanda-wound Skin Appearance) Assessed Scarring -Moisture (Amanda-wound Skin Appearance Assessed ) -Color (Amanda-wound Skin Appearance) Assessed -Temperature (Amanda-wound Skin No Abnormality Appearance) (Pt Warm) -Tenderness on Palpation (Amanda-wound No Skin Appearance) -Ulcer Cleansing Rinsed/ Irrigated with Saline -Foul Odor after Cleansing Yes -Anesthetic Used 4% Lidocaine Solution - Nurse 2 - General Ulcer CM Notes Start: 10/09/18 09:34 Freq: Status: Active Protocol: Activity Type Activity Date Activity User E-Sign Co-Sign Detail Recorded Client Recorded Date Recorded By Document 10/21/18 09:43 [id number] 10/21/18 09:51 10/21/18 09:43 Wound Center Nurse 2 [Procedure/Treatment] -Time 09:44 -Correct Patient Yes -Correct Side, Site, Position Yes -Correct Procedure Yes -Procedure Performed Yes -Type of Procedure Debridement -Clinical Debridement Muscle -Post Debridement Size (cm) - Length 5.5 -Post Debridement Size (cm) - Width 10.0 -Post Debridement Size (cm) - Depth 3.7 -Total Square Cm 55.00 -Wound/Ulcer Outcome Not Healed -Ulcer Cleansing Rinsed/ Irrigated with Saline -Foul Odor after Cleansing No -Bioengineered Tissue No -Bleeding Controlled with Pressure -Offloading No -Treatment Response Procedure Tolerated Well [See Physician Procedure note for Specifics] Pain Scale: 0-10 Numeric [Pain] -Is Patient Pain Free? Yes Debridement Note Post-Debridement Measurements/Treatment - Nurse 2 - General Ulcer CM Notes Start: 10/09/18 09:34 Freq: Status: Active Protocol: Activity Type Activity Date Activity User E-Sign Co-Sign Detail Recorded Client Recorded Date Recorded By Document 10/09/18 10:02 [id number] 10/09/18 10:04 Document 10/21/18 09:43 [id number] 10/21/18 09:51 10/09/18 10/21/18 10:02 09:43 Wound Center Nurse 2 #7 sacrum -Time 10:03 09:44 -Correct Patient Yes Yes -Correct Side, Site, Position Yes Yes -Correct Procedure Yes Yes -Procedure Performed Yes Yes -Type of Procedure Debridement Debridement -Clinical Debridement Subcutaneous Muscle -Post Debridement Size (cm) - Length 5.5 5.5 -Post Debridement Size (cm) - Width 12.5 10.0 -Post Debridement Size (cm) - Depth 4.1 3.7 -Total Square Cm 68.75 55.00 -Wound/Ulcer Outcome Not Healed Not Healed -Ulcer Cleansing Rinsed/ Rinsed/ Irrigated with Irrigated with Saline Saline -Foul Odor after Cleansing No No -Bioengineered Tissue No No -Bleeding Controlled with Pressure Pressure -Offloading No No -Treatment Response Procedure Procedure Tolerated Well Tolerated Well Pain Scale: 0-10 Numeric Is Patient Pain Free? Yes Yes Wound debrided: #7 Sacral area. Laterality: Not Applicable Wound Grade/Stage: IV. Type of Debridement: Excisional debridement Anesthesia Used: 4% Lidocaine Solution Depth: Down to and including healthy tissue, in the subcutaneous layer, to muscle, to bone - bone is exposed but not debrided., - - has some hypergranulation starting again. Percentage of wound debrided: 100 Instrument Used: 7mm curette Tissue Removed: subcutaneous tissue and muscle. Severity: Fat Layer Exposed - muscle is exposed. bone is exposed but not debrided. Amount of bleeding with debridement: Mild Bleeding Controlled with: Pressure Patient tolerated procedure well Assessment/Plan Assessment: 1. Sacral pressure sore, Stage IV. 2. History of osteomyelitis. 3. s/p repair colovaginal fistula. 4. s/p excision sacral pressure sore, Stage IV, with partial ostectomy for osteomyelitis. 5. Recurrent hypergranulation tissue. Plan: Continue wound VAC at 150 mmHg continuous suction to be changed three times per week. Operative culture showed Coag negative Staph and Actinomyces odontolyticus. She was treated with Doxycycline and has finished them. Recent wound culture from 10/09/18 showed Streptococcus agalactiae and Corynebacterium striatum. She was placed on Augmentin. Prealbumin from 09/10/18 was 18.1. Encourage nutritional supplementation with protein to help the healing process. Followup 2 weeks.
[2018-10-30 09:16] VITALS: BP 133/77; PULSE 96; RESP 18; TEMP 36.4; BMI 34.8
--- NOTE | 2018-10-30 09:45 | PCM.WC.PN ---
(1) Pressure ulcer of sacral region, stage 4 Status: Chronic Current Visit: Yes Code(s): L89.154 - Pressure ulcer of sacral region, stage 4 (2) Non-healing surgical wound Status: Chronic Current Visit: Yes Code(s): T81.89XA - Other complications of procedures, not elsewhere classified, initial encounter (3) Morbid obesity with BMI of 40.0-44.9, adult Status: Chronic Current Visit: No Code(s): E66.01 - Morbid (severe) obesity due to excess calories; Z68.41 - Body mass index (BMI) 40.0-44.9, adult Type of Wound Chief Complaint: Sacral pressure sore, Stage IV. History of Wound: Surgery 05/14/18 - Excision sacral pressure sore, Stage IV, with partial ostectomy for osteomyelitis. Wound care - VAC. Operative culture - Staphylococcus epidermidis and Corynebacterium minutissimum in the soft tissue and Corynebacterium minutissimum in the bone. She finished IV Vancomycin for 6 weeks. Pathology was positive for osteomyelitis. Prealbumin from 05/29/18 was 22.0. Encourage nutritional supplementation with protein to help the healing process. CT Pelvis from 05/16/18 showed the skin soft tissue defect overlying the distal portion of the sacrum as progressed. The defect abuts the sacral bone although there is no evidence of bony destruction at this time. Today she denies fever. Her appetite is ok. She has some concerns about increasing pain and some drainage. She is tolerating the wound VAC at the higher setting. Progress of Wound: Stable. No new concerns at this time. Currently on Augmentin. Denies increased drainage or foul smell. - Physical Exam Vital Signs Temp Pulse Resp BP 97.5 F L 96 18 133/77 H 10/30/18 09:16 10/30/18 09:16 10/30/18 09:16 10/30/18 09:16 General: Alert, Oriented x3, Cooperative, No apparent distress HEENT: Atraumatic, Normocephalic Oral: Moist Mucosa Neck: Supple Lungs: Normal air movement Abdomen: Non Tender Extremities: No cyanosis Skin: Ulcer/ Wound Wound Measurements and Assessment WC - Nurse 1 - General Ulcer Measurement Start: 10/09/18 09:34 Freq: Status: Active Protocol: Activity Type Activity Date Activity User E-Sign Co-Sign Detail Recorded Client Recorded Date Recorded By Document 10/30/18 09:16 RB [id number] 10/30/18 09:18 RB 10/30/18 09:16 Wound Center Nurse 1 [Ulcer Assessment] #7 sacrum -Combined with other wound No -Current Size (cm) - Length 4.5 -Current Size (cm) - Width 10 -Current Size (cm) - Depth 3.8 -Total Square Cm 45.0 -Tunneling No -Undermining/Tunneling No -Circular Undermining No -Exudate Amt Small -Exudate Type Serosanguineous -Wound Margin Distinct, Outline Attached -Granulation Amt Large (67-100%) -Granulation Quality [place] -Slough/Fibrin Yes -Necrosis Amt Small (1-33%) -Necrotic Tissue Type Adherent Slough -Structure Exposed N/A -Texture (Amanda-wound Skin Appearance) Assessed -Moisture (Amanda-wound Skin Appearance Maceration ) -Color (Amanda-wound Skin Appearance) Assessed -Temperature (Amanda-wound Skin No Abnormality Appearance) (Pt Warm) -Tenderness on Palpation (Amanda-wound No Skin Appearance) -Ulcer Cleansing Wound Cleanser -Foul Odor after Cleansing No -Anesthetic Used 4% Lidocaine Solution WC - Nurse 2 - General Ulcer CM Notes Start: 10/09/18 09:34 Freq: Status: Active Protocol: Activity Type Activity Date Activity User E-Sign Co-Sign Detail Recorded Client Recorded Date Recorded By Document 10/30/18 09:36 MW [id number] 10/30/18 09:37 MW 10/30/18 09:36 Wound Center Nurse 2 [Procedure/Treatment] -Time 09:36 -Correct Patient Yes -Correct Side, Site, Position Yes -Correct Procedure Yes -Procedure Performed Yes -Type of Procedure Debridement -Clinical Debridement Subcutaneous -Post Debridement Size (cm) - Length 4.5 -Post Debridement Size (cm) - Width 10.0 -Post Debridement Size (cm) - Depth 3.5 -Total Square Cm 45.00 -Wound/Ulcer Outcome Not Healed -Ulcer Cleansing Rinsed/ Irrigated with Saline -Foul Odor after Cleansing No -Bioengineered Tissue No -Bleeding Controlled with Pressure -Offloading No -Treatment Response Procedure Tolerated Well [See Physician Procedure note for Specifics] Pain Scale: 0-10 Numeric [Pain] -Is Patient Pain Free? Yes Musculoskeletal: No Muscle Wasting Neurological: Cranial nerves II-XII grossly intact Psych/Mental Status: Normal Affect Debridement Note Post-Debridement Measurements/Treatment WC - Nurse 2 - General Ulcer CM Notes Start: 10/09/18 09:34 Freq: Status: Active Protocol: Activity Type Activity Date Activity User E-Sign Co-Sign Detail Recorded Client Recorded Date Recorded By Document 10/09/18 10:02 MW [id number] 10/09/18 10:04 MW Document 10/21/18 09:43 [id number] 10/21/18 09:51 Document 10/30/18 09:36 MW [id number] 10/30/18 09:37 MW 10/09/18 10/21/18 10/30/18 10:02 09:43 09:36 Wound Center Nurse 2 #7 sacrum -Time 10:03 09:44 09:36 -Correct Patient Yes Yes Yes -Correct Side, Site, Position Yes Yes Yes -Correct Procedure Yes Yes Yes -Procedure Performed Yes Yes Yes -Type of Procedure Debridement Debridement Debridement -Clinical Debridement Subcutaneous Muscle Subcutaneous -Post Debridement Size (cm) - Length 5.5 5.5 4.5 -Post Debridement Size (cm) - Width 12.5 10.0 10.0 -Post Debridement Size (cm) - Depth 4.1 3.7 3.5 -Total Square Cm 68.75 55.00 45.00 -Wound/Ulcer Outcome Not Healed Not Healed Not Healed -Ulcer Cleansing Rinsed/ Rinsed/ Rinsed/ Irrigated with Irrigated with Irrigated with Saline Saline Saline -Foul Odor after Cleansing No No No -Bioengineered Tissue No No No -Bleeding Controlled with Pressure Pressure Pressure -Offloading No No No -Treatment Response Procedure Procedure Procedure Tolerated Well Tolerated Well Tolerated Well Pain Scale: 0-10 Numeric Is Patient Pain Free? Yes Yes Yes Wound debrided: Sacral Wound Grade/Stage: Stage 4 Type of Debridement: Excisional debridement Anesthesia Used: 4% Lidocaine Solution Depth: Down to and including healthy tissue, in the subcutaneous layer Percentage of wound debrided: 100 Instrument Used: 5mm curette Tissue Removed: Slough and devitalized tissue Severity: Fat Layer Exposed Amount of bleeding with debridement: Mild Bleeding Controlled with: Pressure Patient tolerated procedure well Assessment/Plan Active Problems (Last Reviewed 05/16/18 @ 14:58 by Raúl Jopperi, DO) Non-healing surgical wound (Chronic) Pressure ulcer of sacral region, stage 4 (Chronic) Assessment: 1. Sacral pressure sore, Stage IV. 2. Osteomyelitis. 3. Severe hypergranulation tissue sacral ulcer. 4. s/p repair colovaginal fistula. 5. s/p excision sacral pressure sore, Stage IV, with partial ostectomy for osteomyelitis. Plan: Debridement done as documented above, procedure was well tolerated. No new concerns at this time. Presence of hyper granulation tissue noted. Scheduled to see Dr. Hansen again next week. Saw him last week. Continue wound VAC at 150 mmHg and change every other day. Continue optimal protein intake. Her questions were answered and she was advised to call with any further questions or concerns. Follow-up with Dr. Hansen on Sunday and in 2 weeks with me. This note was generated with [employer] dictation software. It may contain incorrect words, spelling, and punctuation that were not noted in checking the note before signing.
== END 2018-11-01 23:59 ==
LOC: WC 09:15
PROVIDERS: Family Provider Family Medicine Geriatric Medicine; PCP Family Medicine Geriatric Medicine; Referring Provider Internal Medicine; Visit Provider Internal Medicine
DX: L89.154 Pressure ulcer of sacral region, stage 4 (principal); T81.89XA Other complications of procedures, not elsewhere classified, initial encounter; Y83.8 Other surgical procedures as the cause of abnormal reaction of the patient, or of later complication, without mention of misadventure at the time of the procedure
CPT/HCPCS: 11042; 11043; 11045; 11046; 87070; 87075; 87077; 87186; 87205; 97605; 97606

== ENCOUNTER 2018-11-25 09:15 | Outpatient (RCR) | payer MEDICARE, OTHER, SELFPAY ==
[2018-11-02 00:32] VITALS: BP 133/77; PULSE 96; RESP 18; TEMP 36.4
[2018-11-04 09:53] VITALS: BP 125/72; PULSE 88; RESP 18; TEMP 36.4; BMI 34.8
--- NOTE | 2018-11-04 13:11 | PN.PCM_ITS ---
(1) Pressure ulcer of sacral region, stage 4 Status: Chronic Code(s): L89.154 - Pressure ulcer of sacral region, stage 4 (2) Acute osteomyelitis of sacrum Status: Chronic Code(s): M46.28 - Osteomyelitis of vertebra, sacral and sacrococcygeal region Type of Wound Date of Service: 11/04/18 Chief Complaint: Sacral pressure sore, Stage IV. History of Wound: Surgery 05/14/18 - Excision sacral pressure sore, Stage IV, with partial ostectomy for osteomyelitis. Wound care - VAC. Operative culture - Staphylococcus epidermidis and Corynebacterium minutissimum in the soft tissue and Corynebacterium minutissimum in the bone. She finished IV Vancomycin for 6 weeks. Pathology was positive for osteomyelitis. Prealbumin from 05/29/18 was 22.0. Encourage nutritional supplementation with protein to help the healing process. CT Pelvis from 05/16/18 showed the skin soft tissue defect overlying the distal portion of the sacrum as progressed. The defect abuts the sacral bone although there is no evidence of bony destruction at this time. Today she denies fever. Her appetite is ok. She has some concerns about increasing pain and some drainage. She is tolerating the wound VAC at the higher setting. Progress of Wound: Stable. - Physical Exam Vital Signs Temp Pulse Resp BP 97.5 F L 88 18 125/72 H 11/04/18 09:53 11/04/18 09:53 11/04/18 09:53 11/04/18 09:53 General: Alert, Oriented x3, Cooperative HEENT: Atraumatic Oral: Moist Mucosa Lungs: Normal air movement Cardiovascular: Regular rate Extremities: No edema, Capillary Refill Less than 3 Seconds Skin: Ulcer/ Wound - Sacral ulcer, starting to develop hypergranulation again. Ulcer does look beefy pink Wound Measurements and Assessment WC - Nurse 1 - General Ulcer Measurement Start: 11/04/18 09:53 Freq: Status: Active Protocol: Activity Type Activity Date Activity User E-Sign Co-Sign Detail Recorded Client Recorded Date Recorded By Document 11/04/18 09:53 DL [id number] 11/04/18 09:59 DL 11/04/18 09:53 Wound Center Nurse 1 [Ulcer Assessment] #7 sacrum -Current Size (cm) - Length 3.7 -Current Size (cm) - Width 8.8 -Current Size (cm) - Depth 3.7 -Total Square Cm 32.56 -Photo Taken No -Undermining/Tunneling Starts (O' 5 clock) -Undermining/Tunneling Ends (O'clock) 1 -Maximum Distance (cm) 4 -Exudate Amt Medium -Exudate Type Serosanguineous -Wound Margin Distinct, Outline Attached -Granulation Amt Large (67-100%) -Granulation Quality Red -Necrosis Amt Small (1-33%) -Necrotic Tissue Type Adherent Slough -Structure Exposed N/A -Texture (Amanda-wound Skin Appearance) Scarring -Moisture (Amanda-wound Skin Appearance No Abnormality ) -Color (Amanda-wound Skin Appearance) No Abnormality -Temperature (Amanda-wound Skin No Abnormality Appearance) (Pt Warm) -Tenderness on Palpation (Amanda-wound No Skin Appearance) -Ulcer Cleansing Wound Cleanser -Foul Odor after Cleansing No -Anesthetic Used 4% Lidocaine Solution WC - Nurse 2 - General Ulcer CM Notes Start: 11/04/18 09:53 Freq: Status: Active Protocol: Activity Type Activity Date Activity User E-Sign Co-Sign Detail Recorded Client Recorded Date Recorded By Document 11/04/18 10:23 AN [id number] 11/04/18 10:29 AN 11/04/18 10:23 Wound Center Nurse 2 [Procedure/Treatment] -Time 10:26 -Correct Patient Yes -Correct Side, Site, Position Yes -Correct Procedure Yes -Procedure Performed Yes -Type of Procedure Debridement -Clinical Debridement Subcutaneous -Post Debridement Size (cm) - Length 4 -Post Debridement Size (cm) - Width 9.8 -Post Debridement Size (cm) - Depth 3.7 -Total Square Cm 39.2 -Wound/Ulcer Outcome Not Healed -Ulcer Cleansing Rinsed/ Irrigated with Saline -Foul Odor after Cleansing No -Bioengineered Tissue No -Bleeding Controlled with Pressure -Offloading Yes -Treatment Response Procedure Tolerated Well [See Physician Procedure note for Specifics] Pain Scale: 0-10 Numeric [Pain] -Is Patient Pain Free? Yes Musculoskeletal: No Tenderness to Palpation of Joints or Extremities Neurological: Neuro grossly intact Psych/Mental Status: Normal Affect, Appropriate Debridement Note Post-Debridement Measurements/Treatment WC - Nurse 2 - General Ulcer CM Notes Start: 11/04/18 09:53 Freq: Status: Active Protocol: Activity Type Activity Date Activity User E-Sign Co-Sign Detail Recorded Client Recorded Date Recorded By Document 11/04/18 10:23 AN [id number] 11/04/18 10:29 AN 11/04/18 10:23 Wound Center Nurse 2 #7 sacrum -Time 10:26 -Correct Patient Yes -Correct Side, Site, Position Yes -Correct Procedure Yes -Procedure Performed Yes -Type of Procedure Debridement -Clinical Debridement Subcutaneous -Post Debridement Size (cm) - Length 4 -Post Debridement Size (cm) - Width 9.8 -Post Debridement Size (cm) - Depth 3.7 -Total Square Cm 39.2 -Wound/Ulcer Outcome Not Healed -Ulcer Cleansing Rinsed/ Irrigated with Saline -Foul Odor after Cleansing No -Bioengineered Tissue No -Bleeding Controlled with Pressure -Offloading Yes -Treatment Response Procedure Tolerated Well Pain Scale: 0-10 Numeric Is Patient Pain Free? Yes Wound debrided: Sacral ulcer Type of Debridement: Excisional debridement Anesthesia Used: 5% Lidocaine Gel Depth: Down to and including healthy tissue, in the subcutaneous layer Percentage of wound debrided: 100 Instrument Used: 7mm curette Tissue Removed: Subcutaneous tissue and slough Severity: Fat Layer Exposed Amount of bleeding with debridement: Moderate Bleeding Controlled with: Pressure, Compression and gauze Patient tolerated procedure well Assessment/Plan Assessment: 1. Sacral pressure sore, Stage IV. 2. Osteomyelitis. 3. Severe hypergranulation tissue sacral ulcer. 4. s/p repair colovaginal fistula. 5. s/p excision sacral pressure sore, Stage IV, with partial ostectomy for osteomyelitis. Plan: Debridement done as documented above, procedure was well tolerated. No new concerns at this time. Presence of hyper granulation tissue noted. Scheduled to see Dr. Hansen on 11/25. She will follow up with Dr. Santiago weekly until then. Continue wound VAC at 150 mmHg and change every other day. Continue optimal protein intake. Her questions were answered and she was advised to call with any further questions or concerns. Follow-up with Dr. Hansen 11/[address] Santiago weekly until then. This note was generated with [employer] software. It may contain incorrect words, spelling, and punctuation that were not noted in checking the note before signing. Code Visit 111xxx-113xx: 14498 Magalys subq tissue 20 sq cm/< Add On Codes: 21311 Magalys subq tissue add-on
[2018-11-20 09:35] VITALS: BP 134/86; PULSE 92; RESP 18; TEMP 36.2; BMI 34.8
--- NOTE | 2018-11-20 12:38 | PN.PCM_ITS ---
(1) Pressure ulcer of sacral region, stage 4 Status: Chronic Current Visit: Yes Code(s): L89.154 - Pressure ulcer of sacral region, stage 4 (2) Acute osteomyelitis of sacrum Status: Chronic Current Visit: Yes Code(s): M46.28 - Osteomyelitis of vertebra, sacral and sacrococcygeal region Type of Wound Date of Service: 11/20/18 Chief Complaint: Sacral pressure sore, Stage IV. History of Wound: Surgery 05/14/18 - Excision sacral pressure sore, Stage IV, with partial ostectomy for osteomyelitis. Wound care - VAC. Operative culture - Staphylococcus epidermidis and Corynebacterium minutissimum in the soft tissue and Corynebacterium minutissimum in the bone. She finished IV Vancomycin for 6 weeks. Pathology was positive for osteomyelitis. Prealbumin from 05/29/18 was 22.0. Encourage nutritional supplementation with protein to help the healing process. CT Pelvis from 05/16/18 showed the skin soft tissue defect overlying the distal portion of the sacrum as progressed. The defect abuts the sacral bone although there is no evidence of bony destruction at this time. Today she denies fever. Her appetite is ok. She has some concerns about increasing pain and some drainage. She is tolerating the wound VAC at the higher setting. Progress of Wound: Stable. - Physical Exam Vital Signs Temp Pulse Resp BP 97.1 F L 92 18 134/86 H 11/20/18 09:35 11/20/18 09:35 11/20/18 09:35 11/20/18 09:35 General: Alert, Oriented x3, Cooperative HEENT: Atraumatic Oral: Moist Mucosa Lungs: Normal air movement Cardiovascular: Regular rate Extremities: Capillary Refill Less than 3 Seconds, Peripheral Pulses Normal Skin: Ulcer/ Wound - sacral ulcer Wound Measurements and Assessment WC - Nurse 1 - General Ulcer Measurement Start: 11/04/18 09:53 Freq: Status: Active Protocol: Activity Type Activity Date Activity User E-Sign Co-Sign Detail Recorded Client Recorded Date Recorded By Document 11/20/18 09:35 SHIRA [id number] 11/20/18 09:36 SHIRA 11/20/18 09:35 Wound Center Nurse 1 [Ulcer Assessment] #7 sacrum -Combined with other wound No -Current Size (cm) - Length 3.5 -Current Size (cm) - Width 7.5 -Current Size (cm) - Depth 4.3 -Total Square Cm 26.25 -Photo Taken No -Epithelialization None Present -Tunneling No -Undermining/Tunneling No -Circular Undermining No -Exudate Amt Medium -Exudate Type Serosanguineous -Wound Margin Flat & Intact -Granulation Amt Large (67-100%) -Granulation Quality Red -Slough/Fibrin Yes -Necrosis Amt Small (1-33%) -Necrotic Tissue Type Adherent Slough -Structure Exposed N/A -Texture (Amanda-wound Skin Appearance) Assessed -Moisture (Amanda-wound Skin Appearance Assessed,Dry/ ) Scaly -Color (Amanda-wound Skin Appearance) Assessed -Temperature (Amanda-wound Skin No Abnormality Appearance) (Pt Warm) -Tenderness on Palpation (Amanda-wound No Skin Appearance) -Ulcer Cleansing Wound Cleanser -Foul Odor after Cleansing No -Anesthetic Used 5% Lidocaine Gel [Edema Assessment] -Lower Limb Edema Present NA WC - Nurse 2 - General Ulcer CM Notes Start: 11/04/18 09:53 Freq: Status: Active Protocol: Activity Type Activity Date Activity User E-Sign Co-Sign Detail Recorded Client Recorded Date Recorded By Document 11/20/18 09:40 SHIRA [id number] 11/20/18 09:47 SHIRA 11/20/18 09:40 Wound Center Nurse 2 [Procedure/Treatment] #7 sacrum -Time 09:44 -Correct Patient Yes -Correct Side, Site, Position Yes -Correct Procedure Yes -Procedure Performed Yes -Type of Procedure Debridement -Clinical Debridement Subcutaneous -Post Debridement Size (cm) - Length 4.0 -Post Debridement Size (cm) - Width 7.8 -Post Debridement Size (cm) - Depth 4.4 -Total Square Cm 31.20 -Wound/Ulcer Outcome Not Healed -Ulcer Cleansing Rinsed/ Irrigated with Saline -Foul Odor after Cleansing No -Bioengineered Tissue No -Bleeding Controlled with Pressure -Offloading No -Treatment Response Procedure Tolerated Well [See Physician Procedure note for Specifics] Pain Scale: 0-10 Numeric [Pain] -Is Patient Pain Free? Yes Musculoskeletal: No Tenderness to Palpation of Joints or Extremities Neurological: Neuro grossly intact Psych/Mental Status: Normal Affect, Appropriate Debridement Note Post-Debridement Measurements/Treatment WC - Nurse 2 - General Ulcer CM Notes Start: 11/04/18 09:53 Freq: Status: Active Protocol: Activity Type Activity Date Activity User E-Sign Co-Sign Detail Recorded Client Recorded Date Recorded By Document 11/04/18 10:23 AN [id number] 11/04/18 10:29 AN Document 11/20/18 09:40 SHIRA [id number] 11/20/18 09:47 11/04/18 11/20/18 10:23 09:40 Wound Center Nurse 2 #7 sacrum -Time 10:26 09:44 -Correct Patient Yes Yes -Correct Side, Site, Position Yes Yes -Correct Procedure Yes Yes -Procedure Performed Yes Yes -Type of Procedure Debridement Debridement -Clinical Debridement Subcutaneous Subcutaneous -Post Debridement Size (cm) - Length 4 4.0 -Post Debridement Size (cm) - Width 9.8 7.8 -Post Debridement Size (cm) - Depth 3.7 4.4 -Total Square Cm 39.2 31.20 -Wound/Ulcer Outcome Not Healed Not Healed -Ulcer Cleansing Rinsed/ Rinsed/ Irrigated with Irrigated with Saline Saline -Foul Odor after Cleansing No No -Bioengineered Tissue No No -Bleeding Controlled with Pressure Pressure -Offloading Yes No -Treatment Response Procedure Procedure Tolerated Well Tolerated Well Pain Scale: 0-10 Numeric Is Patient Pain Free? Yes Yes Wound debrided: sacral ulcer Type of Debridement: Excisional debridement Anesthesia Used: 5% Lidocaine Gel Depth: Down to and including healthy tissue, in the subcutaneous layer Percentage of wound debrided: 100 Instrument Used: 7mm curette Tissue Removed: Subcutaneous tissue and slough Severity: Fat Layer Exposed Amount of bleeding with debridement: Mild Bleeding Controlled with: Pressure, Compression and gauze Patient tolerated procedure well Assessment/Plan Active Problems (Last Reviewed 05/16/18 @ 14:58 by Raúl Villareal DO) Acute osteomyelitis of sacrum (Chronic) Pressure ulcer of sacral region, stage 4 (Chronic) Assessment: 1. Sacral pressure sore, Stage IV. 2. Osteomyelitis. 3. Severe hypergranulation tissue sacral ulcer. 4. s/p repair colovaginal fistula. 5. s/p excision sacral pressure sore, Stage IV, with partial ostectomy for osteomyelitis. Plan: Debridement done as documented above, procedure was well tolerated. No new concerns at this time. Presence of hyper granulation tissue noted. Scheduled to see Dr. Hansen on 11/25. Continue wound VAC at 150 mmHg and change every other day. Continue optimal protein intake. Her questions were answered and she was advised to call with any further questions or concerns. Follow-up with Dr. Hansen 11/25. This note was generated with [employer] dictation software. It may contain incorrect words, spelling, and punctuation that were not noted in checking the note before signing. Code Visit 111xxx-113xx: 52254 Magalys subq tissue 20 sq cm/< Add On Codes: 27907 Magalys subq tissue add-on
[2018-11-25 09:37] VITALS: BP 143/76; PULSE 90; RESP 18; TEMP 34.9; BMI 34.8
--- NOTE | 2018-11-25 23:36 | PCM.WC.PN ---
Type of Wound Date of Service: 11/25/18 Chief Complaint: Sacral pressure sore, Stage IV. History of Wound: Surgery 09/09/18 - Excision sacral pressure sore, Stage IV, with partial ostectomy for osteomyelitis. Wound care - VAC. Operative culture - Coag negative Staph and Actinomyces odontolyticus. She was treated with Doxycycline and has finished them. Recent wound culture from 10/09/18 showed Streptococcus agalactiae and Corynebacterium striatum. She was placed on Augmentin and has finished them. Pathology - negative for osteomyelitis. Prealbumin from 09/10/18 was 18.1. Encourage nutritional supplementation with protein to help the healing process. Today she denies fever. Her appetite is ok. Progress of Wound: Stable with some hypergranulation tissue starting again. - Physical Exam Vital Signs Temp Pulse Resp BP 94.9 F L 90 18 143/76 H 11/25/18 09:37 11/25/18 09:37 11/25/18 09:37 11/25/18 09:37 Wound Measurements and Assessment WC - Nurse 1 - General Ulcer Measurement Start: 11/04/18 09:53 Freq: Status: Active Protocol: Activity Type Activity Date Activity User E-Sign Co-Sign Detail Recorded Client Recorded Date Recorded By Document 11/25/18 09:37 DV [id number] 11/25/18 09:43 DV 11/25/18 09:37 Wound Center Nurse 1 [Ulcer Assessment] #7 sacrum -Combined with other wound No -Current Size (cm) - Length 4.2 -Current Size (cm) - Width 8.0 -Current Size (cm) - Depth 5.0 -Total Square Cm 33.60 -Photo Taken No -Epithelialization Small 1-33% -Tunneling No -Undermining/Tunneling No -Circular Undermining No -Exudate Amt Large -Exudate Type Serous -Wound Margin Epibole -Granulation Amt Large (67-100%) -Granulation Quality Hyper- granulation -Slough/Fibrin Yes -Necrosis Amt Large (67-100%) -Necrotic Tissue Type Adherent Slough -Structure Exposed Fascia,Muscle, Fat Layer Exposed -Texture (Amanda-wound Skin Appearance) Assessed, Scarring -Moisture (Amanda-wound Skin Appearance Assessed, ) Weeping -Color (Amanda-wound Skin Appearance) Assessed, Erythema -Temperature (Amanda-wound Skin No Abnormality Appearance) (Pt Warm) -Tenderness on Palpation (Amanda-wound Yes Skin Appearance) -Ulcer Cleansing Rinsed/ Irrigated with Saline -Foul Odor after Cleansing No -Anesthetic Used 4% Lidocaine Solution - Nurse 2 - General Ulcer CM Notes Start: 11/04/18 09:53 Freq: Status: Active Protocol: Activity Type Activity Date Activity User E-Sign Co-Sign Detail Recorded Client Recorded Date Recorded By Document 11/25/18 10:36 SHIRA [id number] 11/25/18 10:43 SHIRA 11/25/18 10:36 Wound Center Nurse 2 [Procedure/Treatment] -Time 10:37 -Correct Patient Yes -Correct Side, Site, Position Yes -Correct Procedure Yes -Procedure Performed Yes -Type of Procedure Debridement -Clinical Debridement Muscle -Post Debridement Size (cm) - Length 4.2 -Post Debridement Size (cm) - Width 8.1 -Post Debridement Size (cm) - Depth 5.1 -Total Square Cm 34.02 -Wound/Ulcer Outcome Not Healed -Ulcer Cleansing Rinsed/ Irrigated with Saline -Foul Odor after Cleansing No -Bioengineered Tissue No -Bleeding Controlled with Pressure -Offloading No -Treatment Response Procedure Tolerated Well [See Physician Procedure note for Specifics] Pain Scale: 0-10 Numeric [Pain] -Is Patient Pain Free? Yes Debridement Note Post-Debridement Measurements/Treatment - Nurse 2 - General Ulcer CM Notes Start: 11/04/18 09:53 Freq: Status: Active Protocol: Activity Type Activity Date Activity User E-Sign Co-Sign Detail Recorded Client Recorded Date Recorded By Document 11/04/18 10:23 ENA [id number] 11/04/18 10:29 AN Document 11/20/18 09:40 [id number] 11/20/18 09:47 Document 11/25/18 10:36 [id number] 11/25/18 10:43 11/04/18 11/20/18 11/25/18 10:23 09:40 10:36 Wound Center Nurse 2 #7 sacrum -Time 10:26 09:44 10:37 -Correct Patient Yes Yes Yes -Correct Side, Site, Position Yes Yes Yes -Correct Procedure Yes Yes Yes -Procedure Performed Yes Yes Yes -Type of Procedure Debridement Debridement Debridement -Clinical Debridement Subcutaneous Subcutaneous Muscle -Post Debridement Size (cm) - Length 4 4.0 4.2 -Post Debridement Size (cm) - Width 9.8 7.8 8.1 -Post Debridement Size (cm) - Depth 3.7 4.4 5.1 -Total Square Cm 39.2 31.20 34.02 -Wound/Ulcer Outcome Not Healed Not Healed Not Healed -Ulcer Cleansing Rinsed/ Rinsed/ Rinsed/ Irrigated with Irrigated with Irrigated with Saline Saline Saline -Foul Odor after Cleansing No No No -Bioengineered Tissue No No No -Bleeding Controlled with Pressure Pressure Pressure -Offloading Yes No No -Treatment Response Procedure Procedure Procedure Tolerated Well Tolerated Well Tolerated Well Pain Scale: 0-10 Numeric Is Patient Pain Free? Yes Yes Yes Wound debrided: #7 Sacral area. Laterality: Not Applicable Wound Grade/Stage: IV. Type of Debridement: Excisional debridement Anesthesia Used: 4% Lidocaine Solution Depth: Down to and including healthy tissue, in the subcutaneous layer, to muscle - bone is palpable but not debrided. Some hypergranulation tissue present. Percentage of wound debrided: 100 Instrument Used: 7mm curette Tissue Removed: subcutaneous tissue and muscle. Severity: Fat Layer Exposed - muscle is exposed. bone is palpable but not debrided. Amount of bleeding with debridement: Mild Bleeding Controlled with: Pressure Patient tolerated procedure well Assessment/Plan Assessment: 1. Sacral pressure sore, Stage IV. 2. History of osteomyelitis. 3. s/p repair colovaginal fistula. 4. s/p excision sacral pressure sore, Stage IV, with partial ostectomy for osteomyelitis. 5. Recurrent hypergranulation tissue. Plan: Continue wound VAC at 150 mmHg continuous suction to be changed three times per week. Operative culture showed Coag negative Staph and Actinomyces odontolyticus. She was treated with Doxycycline and has finished them. Recent wound culture from 10/09/18 showed Streptococcus agalactiae and Corynebacterium striatum. She was placed on Augmentin and has finished them. Prealbumin from 09/10/18 was 18.1. Encourage nutritional supplementation with protein to help the healing process. Followup 2 weeks.
== END 2018-12-01 23:59 ==
LOC: WC 09:15
PROVIDERS: Family Provider Family Medicine Geriatric Medicine; PCP Family Medicine Geriatric Medicine; Referring Provider Internal Medicine; Visit Provider Internal Medicine
DX: L89.154 Pressure ulcer of sacral region, stage 4 (principal)
CPT/HCPCS: 11042; 11043; 11045; 11046; 97605

== ENCOUNTER 2018-12-30 09:45 | Outpatient (RCR) | payer MEDICARE, OTHER, SELFPAY ==
[2018-12-02 00:22] VITALS: BP 143/76; PULSE 90; RESP 18; TEMP 34.9
--- NOTE | 2018-12-02 12:29 | PN.PCM_ITS ---
Type of Wound Date of Service: 12/02/18 Chief Complaint: Sacral pressure sore, Stage IV. History of Wound: Surgery 09/09/18 - Excision sacral pressure sore, Stage IV, with partial ostectomy for osteomyelitis. Wound care - VAC. Operative culture - Coag negative Staph and Actinomyces odontolyticus. She was treated with Doxycycline and has finished them. Recent wound culture from 10/09/18 showed Streptococcus agalactiae and Corynebacterium striatum. She was placed on Augmentin and has finished them. Pathology - negative for osteomyelitis. Prealbumin from 09/10/18 was 18.1. Encourage nutritional supplementation with protein to help the healing process. Today she denies fever. Her appetite is ok. Progress of Wound: Stable with some hypergranulation tissue starting again. - Physical Exam Vital Signs Temp Pulse Resp BP 97.8 F 83 16 134/77 H 12/02/18 13:02 12/02/18 13:02 12/02/18 13:02 12/02/18 13:02 Wound Measurements and Assessment WC - Nurse 1 - General Ulcer Measurement Start: 12/02/18 13:02 Freq: Status: Active Protocol: Activity Type Activity Date Activity User E-Sign Co-Sign Detail Recorded Client Recorded Date Recorded By Document 12/02/18 13:02 [facility] [id number] 12/02/18 13:11 [facility] 12/02/18 13:02 Wound Center Nurse 1 [Ulcer Assessment] #7 sacrum -Combined with other wound No -Current Size (cm) - Length 3.4 -Current Size (cm) - Width 7.6 -Current Size (cm) - Depth 3.9 -Total Square Cm 25.84 -Photo Taken No -Epithelialization None Present -Tunneling No -Undermining/Tunneling No -Circular Undermining No -Exudate Amt Large -Exudate Type Yellow/Green -Wound Margin Distinct, Outline Attached -Granulation Amt Large (67-100%) -Granulation Quality Pale,Red -Slough/Fibrin Yes -Necrosis Amt Small (1-33%) -Necrotic Tissue Type Adherent Slough -Texture (Amanda-wound Skin Appearance) Assessed, Scarring -Moisture (Amanda-wound Skin Appearance Assessed ) -Color (Amanda-wound Skin Appearance) Assessed -Temperature (Amanda-wound Skin No Abnormality Appearance) (Pt Warm) -Tenderness on Palpation (Amanda-wound No Skin Appearance) -Foul Odor after Cleansing No -Anesthetic Used 4% Lidocaine Solution CHILO - Nurse 2 - General Ulcer CM Notes Start: 12/02/18 13:02 Freq: Status: Active Protocol: Activity Type Activity Date Activity User E-Sign Co-Sign Detail Recorded Client Recorded Date Recorded By Document 12/02/18 13:23 [id number] 12/02/18 13:26 12/02/18 13:23 Wound Center Nurse 2 [Procedure/Treatment] -Time 13:23 -Correct Patient Yes -Correct Side, Site, Position Yes -Correct Procedure Yes -Procedure Performed Yes -Type of Procedure Debridement -Clinical Debridement Muscle -Post Debridement Size (cm) - Length 4.0 -Post Debridement Size (cm) - Width 7.5 -Post Debridement Size (cm) - Depth 3.0 -Total Square Cm 30.00 -Wound/Ulcer Outcome Not Healed -Ulcer Cleansing Rinsed/ Irrigated with Saline -Foul Odor after Cleansing No -Bioengineered Tissue No -Bleeding Controlled with Pressure -Offloading No -Treatment Response Procedure Tolerated Well [See Physician Procedure note for Specifics] Pain Scale: 0-10 Numeric [Pain] -Is Patient Pain Free? Yes Debridement Note Post-Debridement Measurements/Treatment CHILO - Nurse 2 - General Ulcer CM Notes Start: 12/02/18 13:02 Freq: Status: Active Protocol: Activity Type Activity Date Activity User E-Sign Co-Sign Detail Recorded Client Recorded Date Recorded By Document 12/02/18 13:23 [id number] 12/02/18 13:26 12/02/18 13:23 Wound Center Nurse 2 #7 sacrum -Time 13:23 -Correct Patient Yes -Correct Side, Site, Position Yes -Correct Procedure Yes -Procedure Performed Yes -Type of Procedure Debridement -Clinical Debridement Muscle -Post Debridement Size (cm) - Length 4.0 -Post Debridement Size (cm) - Width 7.5 -Post Debridement Size (cm) - Depth 3.0 -Total Square Cm 30.00 -Wound/Ulcer Outcome Not Healed -Ulcer Cleansing Rinsed/ Irrigated with Saline -Foul Odor after Cleansing No -Bioengineered Tissue No -Bleeding Controlled with Pressure Silver Nitrate -Offloading No -Treatment Response Procedure Tolerated Well Pain Scale: 0-10 Numeric Is Patient Pain Free? Yes Wound debrided: #7 Sacral area. Laterality: Not Applicable Wound Grade/Stage: IV. Type of Debridement: Excisional debridement Anesthesia Used: 4% Lidocaine Solution Depth: Down to and including healthy tissue, in the subcutaneous layer, to muscle, to bone - bone is palpable but not debrided. Percentage of wound debrided: 100 Instrument Used: 7mm curette Tissue Removed: subcutaneous tissue and muscle. Severity: Fat Layer Exposed - muscle is exposed. bone is palpable but not debrided. Amount of bleeding with debridement: Moderate Bleeding Controlled with: Pressure, Silver Nitrate Patient tolerated procedure well Assessment/Plan Assessment: 1. Sacral pressure sore, Stage IV. 2. History of osteomyelitis. 3. s/p repair colovaginal fistula. 4. s/p excision sacral pressure sore, Stage IV, with partial ostectomy for osteomyelitis. 5. Recurrent hypergranulation tissue. Plan: Continue wound VAC at 150 mmHg continuous suction to be changed three times per week. Operative culture showed Coag negative Staph and Actinomyces odontolyticus. She was treated with Doxycycline and has finished them. Recent wound culture from 10/09/18 showed Streptococcus agalactiae and Corynebacterium striatum. She was placed on Augmentin and has finished them. Prealbumin from 09/10/18 was 18.1. Encourage nutritional supplementation with protein to help the healing process. Her hypergranulation tissue continues. Recommend additional operative debridement to remove the excess hypergranulation tissue. Will also biopsy the bone as well because of her history of osteomyelitis. Surgery would be under general anesthesia with a surgical observation overnight stay in the hospital. The VAC will be placed the following day. Patient will think about it and let me know. Patient was informed of the risks and complications of the procedure including alternatives to surgery. These were discussed with her personally. She voices understanding and will think about it and let me know. It is tentatively set for next 12/09/18. Followup 2 weeks.
[2018-12-02 13:02] VITALS: BP 134/77; PULSE 83; RESP 16; TEMP 36.6; BMI 34.8
[2018-12-11 10:22] VITALS: BP 130/48; PULSE 88; RESP 20; TEMP 36.3; BMI 34.8
--- NOTE | 2018-12-11 13:19 | PCM.WC.PN ---
(1) Non-healing surgical wound Status: Chronic Current Visit: Yes Code(s): T81.89XA - Other complications of procedures, not elsewhere classified, initial encounter (2) Pressure ulcer of sacral region, stage 4 Status: Chronic Current Visit: Yes Code(s): L89.154 - Pressure ulcer of sacral region, stage 4 Type of Wound Date of Service: 12/11/18 Chief Complaint: Sacral pressure sore, Stage IV. History of Wound: Surgery 05/14/18 - Excision sacral pressure sore, Stage IV, with partial ostectomy for osteomyelitis. Wound care - VAC. Operative culture - Staphylococcus epidermidis and Corynebacterium minutissimum in the soft tissue and Corynebacterium minutissimum in the bone. She finished IV Vancomycin for 6 weeks. Pathology was positive for osteomyelitis. Prealbumin from 05/29/18 was 22.0. Encourage nutritional supplementation with protein to help the healing process. CT Pelvis from 05/16/18 showed the skin soft tissue defect overlying the distal portion of the sacrum as progressed. The defect abuts the sacral bone although there is no evidence of bony destruction at this time. Today she denies fever. Her appetite is ok. She has some concerns about increasing pain and some drainage. She is tolerating the wound VAC at the higher setting. Progress of Wound: No new concerns at this time. Tolerating wound VAC well. - Physical Exam Vital Signs Temp Pulse Resp BP 97.4 F L 88 20 H 130/48 H 12/11/18 10:22 12/11/18 10:22 12/11/18 10:22 12/11/18 10:22 General: Alert, Oriented x3, Cooperative, No apparent distress HEENT: Atraumatic, Normocephalic Oral: Moist Mucosa Neck: Supple Lungs: Normal air movement Extremities: No cyanosis Skin: Ulcer/ Wound Wound Measurements and Assessment WC - Nurse 1 - General Ulcer Measurement Start: 12/02/18 13:02 Freq: Status: Active Protocol: Activity Type Activity Date Activity User E-Sign Co-Sign Detail Recorded Client Recorded Date Recorded By Document 12/11/18 10:22 DL [id number] 12/11/18 10:28 DL 12/11/18 10:22 Wound Center Nurse 1 [Ulcer Assessment] #7 sacrum -Current Size (cm) - Length 3 -Current Size (cm) - Width 6.2 -Current Size (cm) - Depth 2.8 -Total Square Cm 18.6 -Photo Taken No -Exudate Amt Medium -Exudate Type Serosanguineous -Wound Margin Distinct, Outline Attached -Granulation Amt Large (67-100%) -Granulation Quality Red -Necrosis Amt Small (1-33%) -Necrotic Tissue Type Adherent Slough -Structure Exposed N/A -Texture (Amanda-wound Skin Appearance) Scarring -Moisture (Amanda-wound Skin Appearance No Abnormality ) -Color (Amanda-wound Skin Appearance) Rubor -Temperature (Amanda-wound Skin No Abnormality Appearance) (Pt Warm) -Tenderness on Palpation (Amanda-wound No Skin Appearance) -Ulcer Cleansing Wound Cleanser -Foul Odor after Cleansing No -Anesthetic Used 4% Lidocaine Solution WC - Nurse 2 - General Ulcer CM Notes Start: 12/02/18 13:02 Freq: Status: Active Protocol: Activity Type Activity Date Activity User E-Sign Co-Sign Detail Recorded Client Recorded Date Recorded By Document 12/11/18 11:01 MW [id number] 12/11/18 11:03 MW 12/11/18 11:01 Wound Center Nurse 2 [Procedure/Treatment] -Time 11:01 -Correct Patient Yes -Correct Side, Site, Position Yes -Correct Procedure Yes -Procedure Performed Yes -Type of Procedure Debridement -Clinical Debridement Subcutaneous -Post Debridement Size (cm) - Length 3.5 -Post Debridement Size (cm) - Width 7.0 -Post Debridement Size (cm) - Depth 2.6 -Total Square Cm 24.50 -Wound/Ulcer Outcome Not Healed -Ulcer Cleansing Rinsed/ Irrigated with Saline -Foul Odor after Cleansing No -Bioengineered Tissue No -Bleeding Controlled with Pressure -Offloading No -Treatment Response Procedure Tolerated Well [See Physician Procedure note for Specifics] Pain Scale: 0-10 Numeric [Pain] -Is Patient Pain Free? Yes Musculoskeletal: No Muscle Wasting Neurological: Cranial nerves II-XII grossly intact Psych/Mental Status: Normal Affect Debridement Note Post-Debridement Measurements/Treatment WC - Nurse 2 - General Ulcer CM Notes Start: 12/02/18 13:02 Freq: Status: Active Protocol: Activity Type Activity Date Activity User E-Sign Co-Sign Detail Recorded Client Recorded Date Recorded By Document 12/02/18 13:23 [id number] 12/02/18 13:26 JF Document 12/11/18 11:01 MW [id number] 12/11/18 11:03 MW 12/02/18 12/11/18 13:23 11:01 Wound Center Nurse 2 #7 sacrum -Time 13:23 11:01 -Correct Patient Yes Yes -Correct Side, Site, Position Yes Yes -Correct Procedure Yes Yes -Procedure Performed Yes Yes -Type of Procedure Debridement Debridement -Clinical Debridement Muscle Subcutaneous -Post Debridement Size (cm) - Length 4.0 3.5 -Post Debridement Size (cm) - Width 7.5 7.0 -Post Debridement Size (cm) - Depth 3.0 2.6 -Total Square Cm 30.00 24.50 -Wound/Ulcer Outcome Not Healed Not Healed -Ulcer Cleansing Rinsed/ Rinsed/ Irrigated with Irrigated with Saline Saline -Foul Odor after Cleansing No No -Bioengineered Tissue No No -Bleeding Controlled with Pressure Pressure -Offloading No No -Treatment Response Procedure Procedure Tolerated Well Tolerated Well Pain Scale: 0-10 Numeric Is Patient Pain Free? Yes Yes Wound debrided: Sacral ulcer Wound Grade/Stage: Stage IV Type of Debridement: Excisional debridement Anesthesia Used: 4% Lidocaine Solution Depth: Down to and including healthy tissue, in the subcutaneous layer Percentage of wound debrided: 100 Instrument Used: 5mm curette Tissue Removed: Slough and devitalized tissue Severity: Fat Layer Exposed Amount of bleeding with debridement: Mild Bleeding Controlled with: Pressure Patient tolerated procedure well Assessment/Plan Active Problems (Last Reviewed 05/16/18 @ 14:58 by Raúl Villareal DO) Non-healing surgical wound (Chronic) Pressure ulcer of sacral region, stage 4 (Chronic) Assessment: 1. Sacral pressure sore, Stage IV. 2. Osteomyelitis. 3. Severe hypergranulation tissue sacral ulcer. 4. s/p repair colovaginal fistula. 5. s/p excision sacral pressure sore, Stage IV, with partial ostectomy for osteomyelitis. Plan: Debridement done as documented above, procedure was well tolerated. No new concerns at this time. Still has hyper granulation tissue however improved from prior. Continue wound VAC at 150 mmHg and change every other day. Continue optimal protein intake. Her questions were answered and she was advised to call with any further questions or concerns. Follow-up with me in 1 week. This note was generated with [employer] software. It may contain incorrect words, spelling, and punctuation that were not noted in checking the note before signing.
[2018-12-18 09:33] VITALS: BP 126/77; PULSE 96; RESP 20; TEMP 36.6; BMI 34.8
--- NOTE | 2018-12-18 11:23 | PCM.WC.PN ---
(1) Non-healing surgical wound Status: Chronic Current Visit: Yes Code(s): T81.89XA - Other complications of procedures, not elsewhere classified, initial encounter (2) Pressure ulcer of sacral region, stage 4 Status: Chronic Current Visit: Yes Code(s): L89.154 - Pressure ulcer of sacral region, stage 4 Type of Wound Date of Service: 12/18/18 Chief Complaint: Sacral pressure sore, Stage IV. History of Wound: Surgery 05/14/18 - Excision sacral pressure sore, Stage IV, with partial ostectomy for osteomyelitis. Wound care - VAC. Operative culture - Staphylococcus epidermidis and Corynebacterium minutissimum in the soft tissue and Corynebacterium minutissimum in the bone. She finished IV Vancomycin for 6 weeks. Pathology was positive for osteomyelitis. Prealbumin from 05/29/18 was 22.0. Encourage nutritional supplementation with protein to help the healing process. CT Pelvis from 05/16/18 showed the skin soft tissue defect overlying the distal portion of the sacrum as progressed. The defect abuts the sacral bone although there is no evidence of bony destruction at this time. Today she denies fever. Her appetite is ok. She has some concerns about increasing pain and some drainage. She is tolerating the wound VAC at the higher setting. Progress of Wound: No new concerns at this time. Tolerating wound VAC well. - Physical Exam Vital Signs Temp Pulse Resp BP 97.8 F 96 20 H 126/77 H 12/18/18 09:33 12/18/18 09:33 12/18/18 09:33 12/18/18 09:33 General: Alert, Oriented x3, Cooperative, No apparent distress HEENT: Atraumatic, Normocephalic Oral: Moist Mucosa Neck: Supple Lungs: Normal air movement Cardiovascular: Regular rate Extremities: No cyanosis Skin: Ulcer/ Wound Wound Measurements and Assessment WC - Nurse 1 - General Ulcer Measurement Start: 12/02/18 13:02 Freq: Status: Active Protocol: Activity Type Activity Date Activity User E-Sign Co-Sign Detail Recorded Client Recorded Date Recorded By Document 12/18/18 09:33 DL [id number] 12/18/18 09:40 DL 12/18/18 09:33 Wound Center Nurse 1 [Ulcer Assessment] #7 sacrum -Current Size (cm) - Length 3 -Current Size (cm) - Width 6.7 -Current Size (cm) - Depth 3 -Total Square Cm 20.1 -Photo Taken No -Exudate Amt Small -Exudate Type Serosanguineous -Wound Margin Distinct, Outline Attached -Granulation Amt Large (67-100%) -Granulation Quality Red -Necrosis Amt Small (1-33%) -Necrotic Tissue Type Adherent Slough -Structure Exposed N/A -Texture (Amanda-wound Skin Appearance) Scarring -Moisture (Amanda-wound Skin Appearance No Abnormality ) -Color (Amanda-wound Skin Appearance) Rubor -Temperature (Amanda-wound Skin No Abnormality Appearance) (Pt Warm) -Tenderness on Palpation (Amanda-wound No Skin Appearance) -Ulcer Cleansing Wound Cleanser -Foul Odor after Cleansing No -Anesthetic Used 5% Lidocaine Gel WC - Nurse 2 - General Ulcer CM Notes Start: 12/02/18 13:02 Freq: Status: Active Protocol: Activity Type Activity Date Activity User E-Sign Co-Sign Detail Recorded Client Recorded Date Recorded By Document 12/18/18 09:58 DL [id number] 12/18/18 10:01 MARTHA 12/18/18 09:58 Wound Center Nurse 2 [Procedure/Treatment] -Time 09:58 -Correct Patient Yes -Correct Side, Site, Position Yes -Correct Procedure Yes -Procedure Performed Yes -Type of Procedure Debridement -Clinical Debridement Subcutaneous -Post Debridement Size (cm) - Length 3.5 -Post Debridement Size (cm) - Width 6.5 -Post Debridement Size (cm) - Depth 3.0 -Total Square Cm 22.75 -Wound/Ulcer Outcome Not Healed -Ulcer Cleansing Rinsed/ Irrigated with Saline -Foul Odor after Cleansing No -Bioengineered Tissue No -Bleeding Controlled with Pressure -Offloading No -Treatment Response Procedure Tolerated Well [See Physician Procedure note for Specifics] Pain Scale: 0-10 Numeric [Pain] -Is Patient Pain Free? Yes Musculoskeletal: No Muscle Wasting Neurological: Cranial nerves II-XII grossly intact Psych/Mental Status: Normal Affect Debridement Note Post-Debridement Measurements/Treatment WC - Nurse 2 - General Ulcer CM Notes Start: 12/02/18 13:02 Freq: Status: Active Protocol: Activity Type Activity Date Activity User E-Sign Co-Sign Detail Recorded Client Recorded Date Recorded By Document 12/02/18 13:23 JF [id number] 12/02/18 13:26 JF Document 12/11/18 11:01 MW [id number] 12/11/18 11:03 MW Document 12/18/18 09:58 DL [id number] 12/18/18 10:01 DL 12/02/18 12/11/18 12/18/18 13:23 11:01 09:58 Wound Center Nurse 2 #7 sacrum -Time 13:23 11:01 09:58 -Correct Patient Yes Yes Yes -Correct Side, Site, Position Yes Yes Yes -Correct Procedure Yes Yes Yes -Procedure Performed Yes Yes Yes -Type of Procedure Debridement Debridement Debridement -Clinical Debridement Muscle Subcutaneous Subcutaneous -Post Debridement Size (cm) - Length 4.0 3.5 3.5 -Post Debridement Size (cm) - Width 7.5 7.0 6.5 -Post Debridement Size (cm) - Depth 3.0 2.6 3.0 -Total Square Cm 30.00 24.50 22.75 -Wound/Ulcer Outcome Not Healed Not Healed Not Healed -Ulcer Cleansing Rinsed/ Rinsed/ Rinsed/ Irrigated with Irrigated with Irrigated with Saline Saline Saline -Foul Odor after Cleansing No No No -Bioengineered Tissue No No No -Bleeding Controlled with Pressure Pressure Pressure -Offloading No No No -Treatment Response Procedure Procedure Procedure Tolerated Well Tolerated Well Tolerated Well Pain Scale: 0-10 Numeric Is Patient Pain Free? Yes Yes Yes Wound debrided: Sacral Ulcer Wound Grade/Stage: Stage IV Type of Debridement: Excisional debridement Anesthesia Used: 4% Lidocaine Solution Depth: Down to and including healthy tissue, in the subcutaneous layer Percentage of wound debrided: 100 Instrument Used: 7mm curette Tissue Removed: Slough and devitalized tissue Severity: Fat Layer Exposed Amount of bleeding with debridement: Mild Bleeding Controlled with: Compression and gauze Patient tolerated procedure well Assessment/Plan Active Problems (Last Reviewed 05/16/18 @ 14:58 by Raúl Villareal DO) Non-healing surgical wound (Chronic) Pressure ulcer of sacral region, stage 4 (Chronic) Assessment: 1. Sacral pressure sore, Stage IV. 2. Osteomyelitis. 3. Severe hypergranulation tissue sacral ulcer. 4. s/p repair colovaginal fistula. 5. s/p excision sacral pressure sore, Stage IV, with partial ostectomy for osteomyelitis. Plan: Debridement done as documented above, procedure was well tolerated. No new concerns at this time. Still has hyper granulation tissue. Continue wound VAC at 150 mmHg and change every other day. Continue optimal protein intake. Her questions were answered and she was advised to call with any further questions or concerns. Follow-up with me in 1 week. This note was generated with [employer] dictation software. It may contain incorrect words, spelling, and punctuation that were not noted in checking the note before signing.
[2018-12-25 09:51] VITALS: BP 146/73; PULSE 85; RESP 18; TEMP 36.4; BMI 34.8
--- NOTE | 2018-12-25 13:00 | PCM.WC.PN ---
(1) Non-healing surgical wound Status: Chronic Current Visit: Yes Code(s): T81.89XA - Other complications of procedures, not elsewhere classified, initial encounter (2) Pressure ulcer of sacral region, stage 4 Status: Chronic Current Visit: Yes Code(s): L89.154 - Pressure ulcer of sacral region, stage 4 Type of Wound Date of Service: 12/25/18 Chief Complaint: Sacral pressure sore, Stage IV. History of Wound: Surgery 05/14/18 - Excision sacral pressure sore, Stage IV, with partial ostectomy for osteomyelitis. Wound care - VAC. Operative culture - Staphylococcus epidermidis and Corynebacterium minutissimum in the soft tissue and Corynebacterium minutissimum in the bone. She finished IV Vancomycin for 6 weeks. Pathology was positive for osteomyelitis. Prealbumin from 05/29/18 was 22.0. Encourage nutritional supplementation with protein to help the healing process. CT Pelvis from 05/16/18 showed the skin soft tissue defect overlying the distal portion of the sacrum as progressed. The defect abuts the sacral bone although there is no evidence of bony destruction at this time. Today she denies fever. Her appetite is ok. She has some concerns about increasing pain and some drainage. She is tolerating the wound VAC at the higher setting. Progress of Wound: No new concerns at this time. Tolerating wound VAC well. - Physical Exam Vital Signs Temp Pulse Resp BP 97.5 F L 85 18 146/73 H 12/25/18 09:51 12/25/18 09:51 12/25/18 09:51 12/25/18 09:51 General: Alert, Oriented x3, Cooperative, No apparent distress HEENT: Atraumatic, Normocephalic Oral: Moist Mucosa Neck: Supple Lungs: Normal air movement Skin: Ulcer/ Wound Wound Measurements and Assessment WC - Nurse 1 - General Ulcer Measurement Start: 12/02/18 13:02 Freq: Status: Active Protocol: Activity Type Activity Date Activity User E-Sign Co-Sign Detail Recorded Client Recorded Date Recorded By Document 12/25/18 09:51 DL [id number] 12/25/18 09:56 DL 12/25/18 09:51 Wound Center Nurse 1 [Ulcer Assessment] #7 sacrum -Current Size (cm) - Length 6.5 -Current Size (cm) - Width 3.5 -Current Size (cm) - Depth 3.2 -Total Square Cm 22.75 -Photo Taken No -Exudate Amt Small -Exudate Type Serosanguineous -Wound Margin Distinct, Outline Attached -Granulation Amt Large (67-100%) -Granulation Quality Red -Necrosis Amt Small (1-33%) -Necrotic Tissue Type Adherent Slough -Structure Exposed N/A -Texture (Amanda-wound Skin Appearance) Scarring -Moisture (Amanda-wound Skin Appearance No Abnormality ) -Color (Amanda-wound Skin Appearance) Rubor -Temperature (Amanda-wound Skin No Abnormality Appearance) (Pt Warm) -Tenderness on Palpation (Amanda-wound No Skin Appearance) -Ulcer Cleansing Rinsed/ Irrigated with Saline -Foul Odor after Cleansing No -Anesthetic Used 4% Lidocaine Solution WC - Nurse 2 - General Ulcer CM Notes Start: 12/02/18 13:02 Freq: Status: Active Protocol: Activity Type Activity Date Activity User E-Sign Co-Sign Detail Recorded Client Recorded Date Recorded By Document 12/25/18 10:21 MW [id number] 12/25/18 10:23 MW 12/25/18 10:21 Wound Center Nurse 2 [Procedure/Treatment] -Time 10:22 -Correct Patient Yes -Correct Side, Site, Position Yes -Correct Procedure Yes -Procedure Performed Yes -Type of Procedure Debridement -Clinical Debridement Subcutaneous -Post Debridement Size (cm) - Length 3.4 -Post Debridement Size (cm) - Width 6.5 -Post Debridement Size (cm) - Depth 2.7 -Total Square Cm 22.10 -Wound/Ulcer Outcome Not Healed -Ulcer Cleansing Rinsed/ Irrigated with Saline -Foul Odor after Cleansing No -Bioengineered Tissue No -Bleeding Controlled with Pressure -Offloading No -Treatment Response Procedure Tolerated Well [See Physician Procedure note for Specifics] Pain Scale: 0-10 Numeric [Pain] -Is Patient Pain Free? Yes Musculoskeletal: No Muscle Wasting Neurological: Cranial nerves II-XII grossly intact Psych/Mental Status: Normal Affect Debridement Note Post-Debridement Measurements/Treatment WC - Nurse 2 - General Ulcer CM Notes Start: 12/02/18 13:02 Freq: Status: Active Protocol: Activity Type Activity Date Activity User E-Sign Co-Sign Detail Recorded Client Recorded Date Recorded By Document 12/02/18 13:23 [id number] 12/02/18 13:26 JF Document 12/11/18 11:01 MW [id number] 12/11/18 11:03 MW Document 12/18/18 09:58 DL [id number] 12/18/18 10:01 DL Document 12/25/18 10:21 MW [id number] 12/25/18 10:23 MW 12/02/18 12/11/18 12/18/18 13:23 11:01 09:58 Wound Center Nurse 2 #7 sacrum -Time 13:23 11:01 09:58 -Correct Patient Yes Yes Yes -Correct Side, Site, Position Yes Yes Yes -Correct Procedure Yes Yes Yes -Procedure Performed Yes Yes Yes -Type of Procedure Debridement Debridement Debridement -Clinical Debridement Muscle Subcutaneous Subcutaneous -Post Debridement Size (cm) - Length 4.0 3.5 3.5 -Post Debridement Size (cm) - Width 7.5 7.0 6.5 -Post Debridement Size (cm) - Depth 3.0 2.6 3.0 -Total Square Cm 30.00 24.50 22.75 -Wound/Ulcer Outcome Not Healed Not Healed Not Healed -Ulcer Cleansing Rinsed/ Rinsed/ Rinsed/ Irrigated with Irrigated with Irrigated with Saline Saline Saline -Foul Odor after Cleansing No No No -Bioengineered Tissue No No No -Bleeding Controlled with Pressure Pressure Pressure -Offloading No No No -Treatment Response Procedure Procedure Procedure Tolerated Well Tolerated Well Tolerated Well Pain Scale: 0-10 Numeric Is Patient Pain Free? Yes Yes Yes 12/25/18 10:21 Wound Center Nurse 2 #7 sacrum -Time 10:22 -Correct Patient Yes -Correct Side, Site, Position Yes -Correct Procedure Yes -Procedure Performed Yes -Type of Procedure Debridement -Clinical Debridement Subcutaneous -Post Debridement Size (cm) - Length 3.4 -Post Debridement Size (cm) - Width 6.5 -Post Debridement Size (cm) - Depth 2.7 -Total Square Cm 22.10 -Wound/Ulcer Outcome Not Healed -Ulcer Cleansing Rinsed/ Irrigated with Saline -Foul Odor after Cleansing No -Bioengineered Tissue No -Bleeding Controlled with Pressure -Offloading No -Treatment Response Procedure Tolerated Well Pain Scale: 0-10 Numeric Is Patient Pain Free? Yes Wound debrided: Sacral Wound Grade/Stage: Stage IV Type of Debridement: Excisional debridement Anesthesia Used: 4% Lidocaine Solution Depth: Down to and including healthy tissue, in the subcutaneous layer Percentage of wound debrided: 100 Instrument Used: 7mm curette Tissue Removed: Slough and devitalized tissue Severity: Fat Layer Exposed Amount of bleeding with debridement: Mild Bleeding Controlled with: Pressure Patient tolerated procedure well Assessment/Plan Active Problems (Last Reviewed 05/16/18 @ 14:58 by Raúl Villareal DO) Non-healing surgical wound (Chronic) Pressure ulcer of sacral region, stage 4 (Chronic) Assessment: 1. Sacral pressure sore, Stage IV. 2. Osteomyelitis. 3. Severe hypergranulation tissue sacral ulcer. 4. s/p repair colovaginal fistula. 5. s/p excision sacral pressure sore, Stage IV, with partial ostectomy for osteomyelitis. Plan: Debridement done as documented above, procedure was well tolerated. No new concerns at this time. Still has hyper granulation tissue. Continue wound VAC at 150 mmHg and change every other day. Continue optimal protein intake. Her questions were answered and she was advised to call with any further questions or concerns. Follow-up with Jade on Sunday and with me in 2 weeks. This note was generated with [employer] dictation software. It may contain incorrect words, spelling, and punctuation that were not noted in checking the note before signing.
[2018-12-30 09:28] VITALS: BP 122/69; PULSE 92; RESP 18; TEMP 36.4; BMI 34.8
--- NOTE | 2018-12-30 18:12 | PCM.WC.PN ---
Type of Wound Date of Service: 12/30/18 Chief Complaint: Sacral pressure sore, Stage IV. History of Wound: Surgery 09/09/18 - Excision sacral pressure sore, Stage IV, with partial ostectomy for osteomyelitis. Wound care - VAC. Operative culture - Coag negative Staph and Actinomyces odontolyticus. She was treated with Doxycycline and has finished them. Recent wound culture from 10/09/18 showed Streptococcus agalactiae and Corynebacterium striatum. She was placed on Augmentin and has finished them. Pathology - negative for osteomyelitis. Prealbumin from 09/10/18 was 18.1. Encourage nutritional supplementation with protein to help the healing process. Today she denies fever. Her appetite is ok. Progress of Wound: Stable with some hypergranulation tissue. - Physical Exam Vital Signs Temp Pulse Resp BP 97.6 F L 92 18 122/69 H 12/30/18 09:28 12/30/18 09:28 12/30/18 09:28 12/30/18 09:28 Debridement Note Post-Debridement Measurements/Treatment WC - Nurse 2 - General Ulcer CM Notes Start: 12/02/18 13:02 Freq: Status: Active Protocol: Activity Type Activity Date Activity User E-Sign Co-Sign Detail Recorded Client Recorded Date Recorded By Document 12/02/18 13:23 JF [id number] 12/02/18 13:26 JF Document 12/11/18 11:01 MW [id number] 12/11/18 11:03 MW Document 12/18/18 09:58 DL [id number] 12/18/18 10:01 DL Document 12/25/18 10:21 MW [id number] 12/25/18 10:23 MW Document 12/30/18 09:52 MW [id number] 12/30/18 09:58 MW 12/02/18 12/11/18 12/18/18 13:23 11:01 09:58 Wound Center Nurse 2 #7 sacrum -Time 13:23 11:01 09:58 -Correct Patient Yes Yes Yes -Correct Side, Site, Position Yes Yes Yes -Correct Procedure Yes Yes Yes -Procedure Performed Yes Yes Yes -Type of Procedure Debridement Debridement Debridement -Clinical Debridement Muscle Subcutaneous Subcutaneous -Post Debridement Size (cm) - Length 4.0 3.5 3.5 -Post Debridement Size (cm) - Width 7.5 7.0 6.5 -Post Debridement Size (cm) - Depth 3.0 2.6 3.0 -Total Square Cm 30.00 24.50 22.75 -Wound/Ulcer Outcome Not Healed Not Healed Not Healed -Ulcer Cleansing Rinsed/ Rinsed/ Rinsed/ Irrigated with Irrigated with Irrigated with Saline Saline Saline -Foul Odor after Cleansing No No No -Bioengineered Tissue No No No -Bleeding Controlled with Pressure Pressure Pressure -Offloading No No No -Treatment Response Procedure Procedure Procedure Tolerated Well Tolerated Well Tolerated Well Pain Scale: 0-10 Numeric Is Patient Pain Free? Yes Yes Yes 12/25/18 12/30/18 10:21 09:52 Wound Center Nurse 2 #7 sacrum -Time 10:22 09:53 -Correct Patient Yes Yes -Correct Side, Site, Position Yes Yes -Correct Procedure Yes Yes -Procedure Performed Yes Yes -Type of Procedure Debridement Debridement -Clinical Debridement Subcutaneous Muscle -Post Debridement Size (cm) - Length 3.4 2.8 -Post Debridement Size (cm) - Width 6.5 6.0 -Post Debridement Size (cm) - Depth 2.7 3.0 -Total Square Cm 22.10 16.80 -Wound/Ulcer Outcome Not Healed Not Healed -Ulcer Cleansing Rinsed/ Rinsed/ Irrigated with Irrigated with Saline Saline -Foul Odor after Cleansing No No -Bioengineered Tissue No No -Bleeding Controlled with Pressure Pressure Silver nitrate -Offloading No No -Treatment Response Procedure Procedure Tolerated Well Tolerated Well Pain Scale: 0-10 Numeric Is Patient Pain Free? Yes Yes Wound debrided: #7 Sacral area. Laterality: Not Applicable Wound Grade/Stage: IV. Type of Debridement: Excisional debridement Anesthesia Used: 4% Lidocaine Solution Depth: Down to and including healthy tissue, in the subcutaneous layer, to muscle, to bone - bone is palpable but not debrided. Percentage of wound debrided: 100 Instrument Used: 7mm curette Tissue Removed: subcutaneous tissue and muscle. Severity: Fat Layer Exposed - muscle is exposed. bone is palpable but not debrided. Amount of bleeding with debridement: Mild Bleeding Controlled with: Pressure, Silver Nitrate Patient tolerated procedure well Assessment/Plan Assessment: 1. Sacral pressure sore, Stage IV. 2. History of osteomyelitis. 3. s/p repair colovaginal fistula. 4. s/p excision sacral pressure sore, Stage IV, with partial ostectomy for osteomyelitis. 5. Recurrent hypergranulation tissue. Plan: Continue wound VAC at 150 mmHg continuous suction to be changed three times per week. Operative culture showed Coag negative Staph and Actinomyces odontolyticus. She was treated with Doxycycline and has finished them. Recent wound culture from 10/09/18 showed Streptococcus agalactiae and Corynebacterium striatum. She was placed on Augmentin and has finished them. Prealbumin from 09/10/18 was 18.1. Encourage nutritional supplementation with protein to help the healing process. Her hypergranulation tissue continues. May need additional operative debridement to remove the excess hypergranulation tissue. Will also biopsy the bone as well because of her history of osteomyelitis. Surgery would be under general anesthesia with a surgical observation overnight stay in the hospital. The VAC will be placed the following day. Patient will think about it and let me know. Patient was informed of the risks and complications of the procedure including alternatives to surgery. These were discussed with her personally. She voices understanding and will think about it and let me know. Followup one week with Dr. Santiago. Followup 3 weeks with me.
== END 2019-01-01 23:59 ==
LOC: WC 09:45
PROVIDERS: Family Provider Family Medicine Geriatric Medicine; PCP Family Medicine Geriatric Medicine; Referring Provider Internal Medicine; Visit Provider Internal Medicine
DX: L89.154 Pressure ulcer of sacral region, stage 4 (principal)
CPT/HCPCS: 11042; 11043; 11045; 97605; 97606

== ENCOUNTER → 2019-01-07 17:13 | Outpatient (CLI) | payer MEDICARE, OTHER, SELFPAY ==
[2018-12-30 09:28] VITALS: BMI 34.8
== END ==
PROVIDERS: Family Provider Family Medicine Geriatric Medicine; PCP Family Medicine Geriatric Medicine; Referring Provider Family Medicine Geriatric Medicine; Visit Provider Family Medicine Geriatric Medicine
DX: N39.0 Urinary tract infection, site not specified (principal)
CPT/HCPCS: 87077; 87086; 87088; 87186

== ENCOUNTER 2019-01-28 15:00 | Outpatient (RCR) | payer MEDICARE, OTHER, SELFPAY ==
[2019-01-02 00:29] VITALS: BP 122/69; PULSE 92; RESP 18; TEMP 36.4
[2019-01-09 09:22] VITALS: BP 132/79; PULSE 87; RESP 18; TEMP 36.1; O2SAT 94; BMI 34.8
--- NOTE | 2019-01-09 10:39 | PN.PCM_ITS ---
(1) Pressure ulcer of sacral region, stage 4 Status: Chronic Current Visit: Yes Code(s): L89.154 - Pressure ulcer of sacral region, stage 4 (2) Non-healing surgical wound Status: Chronic Current Visit: Yes Code(s): T81.89XA - Other complications of procedures, not elsewhere classified, initial encounter (3) Morbid obesity with BMI of 40.0-44.9, adult Status: Chronic Current Visit: Yes Code(s): E66.01 - Morbid (severe) obesity due to excess calories; Z68.41 - Body mass index (BMI) 40.0-44.9, adult Type of Wound Date of Service: 01/09/19 Chief Complaint: Sacral pressure sore, Stage IV. History of Wound: Surgery 09/09/18 - Excision sacral pressure sore, Stage IV, with partial ostectomy for osteomyelitis. Wound care - VAC. Operative culture - Coag negative Staph and Actinomyces odontolyticus. She was treated with Doxycycline and has finished them. Recent wound culture from 10/09/18 showed Streptococcus agalactiae and Corynebacterium striatum. She was placed on Augmentin and has finished them. Pathology - negative for osteomyelitis. Prealbumin from 09/10/18 was 18.1. Encourage nutritional supplementation with protein to help the healing process. Today she denies fever. Her appetite is ok. Progress of Wound: Stable. No new cocnerns at this time. - Physical Exam Vital Signs Temp Pulse Resp BP Pulse Ox 97.0 F L 87 18 132/79 H 94 01/09/19 09:22 01/09/19 09:22 01/09/19 09:22 01/09/19 09:22 01/09/19 09:22 General: Alert, Oriented x3, Cooperative, No apparent distress HEENT: Atraumatic, Normocephalic Oral: Moist Mucosa Neck: Supple Lungs: Normal air movement Abdomen: Non Tender, Obese Extremities: No cyanosis Wound Measurements and Assessment WC - Nurse 1 - General Ulcer Measurement Start: 01/09/19 09:22 Freq: Status: Active Protocol: Activity Type Activity Date Activity User E-Sign Co-Sign Detail Recorded Client Recorded Date Recorded By Document 01/09/19 09:22 CT [id number] 01/09/19 09:36 CT 01/09/19 09:22 Wound Center Nurse 1 [Ulcer Assessment] #7 sacrum -Current Size (cm) - Length 2.6 -Current Size (cm) - Width 6.1 -Current Size (cm) - Depth 3.4 -Total Square Cm 15.86 -Tunneling Position (O'clock) 9 -Tunneling Distance (cm) 3.6 -Tunneling Position #2 (O'clock) 3 -Tunneling Distance #2 (cm) 3.4 -Circular Undermining Yes -Exudate Amt Medium -Exudate Type Purulent -Wound Margin Thickened & Rolled Under -Granulation Amt Large (67-100%) -Granulation Quality Pale,[place] -Necrosis Amt Small (1-33%) -Necrotic Tissue Type Adherent Slough -Texture (Amanda-wound Skin Appearance) Assessed -Moisture (Amanda-wound Skin Appearance Assessed, ) Maceration -Color (Amanda-wound Skin Appearance) Assessed -Temperature (Amanda-wound Skin No Abnormality Appearance) (Pt Warm) -Tenderness on Palpation (Amanda-wound No Skin Appearance) -Ulcer Cleansing Rinsed/ Irrigated with Saline -Foul Odor after Cleansing No -Anesthetic Used 4% Lidocaine Solution [Edema Assessment] -Lower Limb Edema Present NA WC - Nurse 2 - General Ulcer CM Notes Start: 01/09/19 09:22 Freq: Status: Active Protocol: Activity Type Activity Date Activity User E-Sign Co-Sign Detail Recorded Client Recorded Date Recorded By Document 01/09/19 09:49 MW [id number] 01/09/19 09:52 MW 01/09/19 09:49 Wound Center Nurse 2 [Procedure/Treatment] #7 sacrum -Time 09:49 -Correct Patient Yes -Correct Side, Site, Position Yes -Correct Procedure Yes -Procedure Performed Yes -Type of Procedure Debridement -Clinical Debridement Subcutaneous -Post Debridement Size (cm) - Length 2.5 -Post Debridement Size (cm) - Width 6.1 -Post Debridement Size (cm) - Depth 2.5 -Total Square Cm 15.25 -Wound/Ulcer Outcome Not Healed -Ulcer Cleansing Rinsed/ Irrigated with Saline -Foul Odor after Cleansing No -Bioengineered Tissue No -Bleeding Controlled with Pressure -Offloading No -Treatment Response Procedure Tolerated Well [See Physician Procedure note for Specifics] Pain Scale: 0-10 Numeric [Pain] -Is Patient Pain Free? Yes Musculoskeletal: No Muscle Wasting Neurological: Cranial nerves II-XII grossly intact Psych/Mental Status: Normal Affect Debridement Note Post-Debridement Measurements/Treatment WC - Nurse 2 - General Ulcer CM Notes Start: 01/09/19 09:22 Freq: Status: Active Protocol: Activity Type Activity Date Activity User E-Sign Co-Sign Detail Recorded Client Recorded Date Recorded By Document 01/09/19 09:49 MW [id number] 01/09/19 09:52 MW 01/09/19 09:49 Wound Center Nurse 2 #7 sacrum -Time 09:49 -Correct Patient Yes -Correct Side, Site, Position Yes -Correct Procedure Yes -Procedure Performed Yes -Type of Procedure Debridement -Clinical Debridement Subcutaneous -Post Debridement Size (cm) - Length 2.5 -Post Debridement Size (cm) - Width 6.1 -Post Debridement Size (cm) - Depth 2.5 -Total Square Cm 15.25 -Wound/Ulcer Outcome Not Healed -Ulcer Cleansing Rinsed/ Irrigated with Saline -Foul Odor after Cleansing No -Bioengineered Tissue No -Bleeding Controlled with Pressure -Offloading No -Treatment Response Procedure Tolerated Well Pain Scale: 0-10 Numeric Is Patient Pain Free? Yes Wound debrided: Sacral ulcer Wound Grade/Stage: Stage IV Type of Debridement: Excisional debridement Anesthesia Used: 4% Lidocaine Solution Depth: Down to and including healthy tissue, in the subcutaneous layer Percentage of wound debrided: 100 Instrument Used: 7mm curette Tissue Removed: Slough and devitalized tissue Severity: Fat Layer Exposed Amount of bleeding with debridement: Mild Bleeding Controlled with: Pressure Patient tolerated procedure well Assessment/Plan Active Problems (Last Reviewed 05/16/18 @ 14:58 by Raúl Villareal DO) Non-healing surgical wound (Chronic) Morbid obesity with BMI of 40.0-44.9, adult (Chronic) Pressure ulcer of sacral region, stage 4 (Chronic) Assessment: 1. Sacral pressure sore, Stage IV. 2. History of osteomyelitis. 3. s/p repair colovaginal fistula. 4. s/p excision sacral pressure sore, Stage IV, with partial ostectomy for osteomyelitis. 5. Recurrent hypergranulation tissue. Plan: Debridement done as documenetd above, procedure was well tolerated. Conbtinue wound Vac at 150mmHg and change 3 x weekly. Continue increased protein intake and offloading. Her questions weer answered and she was advised to call with any questions or concerns. Follow in 1 week.
[2019-01-15 08:35] VITALS: BP 140/76; PULSE 85; RESP 18; TEMP 35.9; BMI 34.8
--- NOTE | 2019-01-15 08:57 | PN.PCM_ITS ---
(1) Pressure ulcer of sacral region, stage 4 Status: Chronic Current Visit: Yes Code(s): L89.154 - Pressure ulcer of sacral region, stage 4 (2) Non-healing surgical wound Status: Chronic Current Visit: Yes Code(s): T81.89XA - Other complications of procedures, not elsewhere classified, initial encounter (3) Morbid obesity with BMI of 40.0-44.9, adult Status: Chronic Current Visit: Yes Code(s): E66.01 - Morbid (severe) obesity due to excess calories; Z68.41 - Body mass index (BMI) 40.0-44.9, adult Type of Wound Date of Service: 01/15/19 Chief Complaint: Sacral pressure sore, Stage IV. History of Wound: Surgery 09/09/18 - Excision sacral pressure sore, Stage IV, with partial ostectomy for osteomyelitis. Wound care - VAC. Operative culture - Coag negative Staph and Actinomyces odontolyticus. She was treated with Doxycycline and has finished them. Recent wound culture from 10/09/18 showed Streptococcus agalactiae and Corynebacterium striatum. She was placed on Augmentin and has finished them. Pathology - negative for osteomyelitis. Prealbumin from 09/10/18 was 18.1. Encourage nutritional supplementation with protein to help the healing process. Today she denies fever. Her appetite is ok. Progress of Wound: Stable. No new cocnerns at this time. - Physical Exam Vital Signs Temp Pulse Resp BP Pulse Ox 96.6 F L 85 18 140/76 H 94 01/15/19 08:35 01/15/19 08:35 01/15/19 08:35 01/15/19 08:35 01/09/19 09:22 General: Alert, Oriented x3, Cooperative, No apparent distress HEENT: Atraumatic, Normocephalic Oral: Moist Mucosa Neck: Supple Lungs: Normal air movement Abdomen: Non Tender, Obese Extremities: No cyanosis Skin: Ulcer/ Wound Wound Measurements and Assessment WC - Nurse 1 - General Ulcer Measurement Start: 01/09/19 09:22 Freq: Status: Active Protocol: Activity Type Activity Date Activity User E-Sign Co-Sign Detail Recorded Client Recorded Date Recorded By Document 01/15/19 08:35 DL [id number] 01/15/19 08:45 DL 08/14/19 08:35 Wound Center Nurse 1 [Ulcer Assessment] #7 sacrum -Current Size (cm) - Length 2.7 -Current Size (cm) - Width 5.6 -Current Size (cm) - Depth 3 -Total Square Cm 15.12 -Photo Taken No -Exudate Amt Small -Exudate Type Serosanguineous -Wound Margin Distinct, Outline Attached -Granulation Amt Large (67-100%) -Granulation Quality Red -Necrosis Amt Small (1-33%) -Necrotic Tissue Type Adherent Slough -Structure Exposed N/A -Texture (Amanda-wound Skin Appearance) Scarring -Moisture (Amanda-wound Skin Appearance No Abnormality ) -Color (Amanda-wound Skin Appearance) No Abnormality -Temperature (Amanda-wound Skin No Abnormality Appearance) (Pt Warm) -Tenderness on Palpation (Amanda-wound No Skin Appearance) -Ulcer Cleansing Wound Cleanser -Foul Odor after Cleansing No -Anesthetic Used 4% Lidocaine Solution WC - Nurse 2 - General Ulcer CM Notes Start: 01/09/19 09:22 Freq: Status: Active Protocol: Activity Type Activity Date Activity User E-Sign Co-Sign Detail Recorded Client Recorded Date Recorded By Document 01/15/19 08:50 [id number] 01/15/19 08:54 01/15/19 08:50 Wound Center Nurse 2 [Procedure/Treatment] -Time 08:50 -Correct Patient Yes -Correct Side, Site, Position Yes -Correct Procedure Yes -Procedure Performed Yes -Type of Procedure Debridement -Clinical Debridement Subcutaneous -Post Debridement Size (cm) - Length 2.7 -Post Debridement Size (cm) - Width 5.7 -Post Debridement Size (cm) - Depth 2.7 -Total Square Cm 15.39 -Wound/Ulcer Outcome Not Healed -Ulcer Cleansing Rinsed/ Irrigated with Saline -Foul Odor after Cleansing No -Bioengineered Tissue No -Bleeding Controlled with Pressure -Offloading No -Treatment Response Procedure Tolerated Well [See Physician Procedure note for Specifics] Pain Scale: 0-10 Numeric [Pain] -Is Patient Pain Free? Yes Musculoskeletal: No Muscle Wasting Neurological: Cranial nerves II-XII grossly intact Psych/Mental Status: Normal Affect Debridement Note Post-Debridement Measurements/Treatment WC - Nurse 2 - General Ulcer CM Notes Start: 01/09/19 09:22 Freq: Status: Active Protocol: Activity Type Activity Date Activity User E-Sign Co-Sign Detail Recorded Client Recorded Date Recorded By Document 01/09/19 09:49 MW [id number] 01/09/19 09:52 MW Document 01/15/19 08:50 [id number] 01/15/19 08:54 01/09/19 01/15/19 09:49 08:50 Wound Center Nurse 2 #7 sacrum -Time 09:49 08:50 -Correct Patient Yes Yes -Correct Side, Site, Position Yes Yes -Correct Procedure Yes Yes -Procedure Performed Yes Yes -Type of Procedure Debridement Debridement -Clinical Debridement Subcutaneous Subcutaneous -Post Debridement Size (cm) - Length 2.5 2.7 -Post Debridement Size (cm) - Width 6.1 5.7 -Post Debridement Size (cm) - Depth 2.5 2.7 -Total Square Cm 15.25 15.39 -Wound/Ulcer Outcome Not Healed Not Healed -Ulcer Cleansing Rinsed/ Rinsed/ Irrigated with Irrigated with Saline Saline -Foul Odor after Cleansing No No -Bioengineered Tissue No No -Bleeding Controlled with Pressure Pressure -Offloading No No -Treatment Response Procedure Procedure Tolerated Well Tolerated Well Pain Scale: 0-10 Numeric Is Patient Pain Free? Yes Yes Wound debrided: Sacral Wound Grade/Stage: Stage IV Type of Debridement: Excisional debridement Anesthesia Used: 4% Lidocaine Solution Depth: Down to and including healthy tissue, in the subcutaneous layer Percentage of wound debrided: 100 Instrument Used: 7mm curette Tissue Removed: Slough and devitalized tissue Severity: Fat Layer Exposed Amount of bleeding with debridement: Mild Bleeding Controlled with: Pressure Patient tolerated procedure well Assessment/Plan Active Problems (Last Reviewed 05/16/18 @ 14:58 by Raúl Villareal DO) Non-healing surgical wound (Chronic) Morbid obesity with BMI of 40.0-44.9, adult (Chronic) Pressure ulcer of sacral region, stage 4 (Chronic) Assessment: 1. Sacral pressure sore, Stage IV. 2. History of osteomyelitis. 3. s/p repair colovaginal fistula. 4. s/p excision sacral pressure sore, St age IV, with partial ostectomy for osteomyelitis. 5. Recurrent hypergranulation tissue. Plan: Debridement done as documented above, procedure was well tolerated. still has some hyperpergranulation tissue. Continue wound vac at 150mmHg and change every other day. Continue increased protein intake and off loading. Follow up with Dr. Hansen on Sunday and with me in 2 weeks. Her questions were answered and she was advised to call with any questions or concerns.
[2019-01-20 08:26] VITALS: BP 142/59; PULSE 85; RESP 16; TEMP 37.8; BMI 34.8
--- NOTE | 2019-01-20 22:32 | PN.PCM_ITS ---
Type of Wound Date of Service: 01/20/19 Chief Complaint: Sacral pressure sore, Stage IV. History of Wound: Surgery 09/09/18 - Excision sacral pressure sore, Stage IV, with partial ostectomy for osteomyelitis. Wound care - VAC. Operative culture - Coag negative Staph and Actinomyces odontolyticus. She was treated with Doxycycline and has finished them. Recent wound culture from 10/09/18 showed Streptococcus agalactiae and Corynebacterium striatum. She was placed on Augmentin and has finished them. Pathology - negative for osteomyelitis. Prealbumin from 09/10/18 was 18.1. Encourage nutritional supplementation with protein to help the healing process. Today she denies fever. Her appetite is ok. Progress of Wound: Stable with some hypergranulation tissue. - Physical Exam Vital Signs Temp Pulse Resp BP Pulse Ox 100.0 F H 85 16 142/59 H 94 01/20/19 08:26 01/20/19 08:26 01/20/19 08:26 01/20/19 08:26 01/09/19 09:22 Wound Measurements and Assessment WC - Nurse 1 - General Ulcer Measurement Start: 01/09/19 09:22 Freq: Status: Active Protocol: Activity Type Activity Date Activity User E-Sign Co-Sign Detail Recorded Client Recorded Date Recorded By Document 01/20/19 08:26 DV [id number] 01/20/19 08:34 DV 01/20/19 08:26 Wound Center Nurse 1 [Ulcer Assessment] #7 sacrum -Combined with other wound No -Current Size (cm) - Length 2.5 -Current Size (cm) - Width 5.5 -Current Size (cm) - Depth 3.0 -Total Square Cm 13.75 -Photo Taken No -Epithelialization None Present -Tunneling Yes -Tunneling Position (O'clock) 11 -Tunneling Distance (cm) 4.0 -Tunneling Position #2 (O'clock) 5 -Tunneling Distance #2 (cm) 3.7 -Undermining/Tunneling No -Circular Undermining No -Classification - Thickness Full Thickness without Exposed Support Structure -Exudate Amt Large -Exudate Type Serosanguineous -Wound Margin Epibole -Granulation Amt Large (67-100%) -Granulation Quality Pale,[place],Red -Slough/Fibrin Yes -Necrosis Amt Medium (34-66%) -Necrotic Tissue Type Adherent Slough -Structure Exposed N/A -Texture (Amanda-wound Skin Appearance) Assessed, Scarring -Moisture (Amanda-wound Skin Appearance Assessed, ) Weeping -Color (Amanda-wound Skin Appearance) Assessed, Erythema -Temperature (Amanda-wound Skin No Abnormality Appearance) (Pt Warm) -Tenderness on Palpation (Amanda-wound No Skin Appearance) -Foul Odor after Cleansing No -Anesthetic Used 4% Lidocaine Solution WC - Nurse 2 - General Ulcer CM Notes Start: 01/09/19 09:22 Freq: Status: Active Protocol: Activity Type Activity Date Activity User E-Sign Co-Sign Detail Recorded Client Recorded Date Recorded By Document 01/20/19 09:04 [id number] 01/20/19 09:05 01/20/19 09:04 Wound Center Nurse 2 [Procedure/Treatment] -Time 09:04 -Correct Patient Yes -Correct Side, Site, Position Yes -Correct Procedure Yes -Procedure Performed Yes -Type of Procedure Debridement -Clinical Debridement Muscle -Post Debridement Size (cm) - Length 3 -Post Debridement Size (cm) - Width 6 -Post Debridement Size (cm) - Depth 3.2 -Total Square Cm 18 -Wound/Ulcer Outcome Not Healed -Ulcer Cleansing Rinsed/ Irrigated with Saline -Foul Odor after Cleansing No -Bioengineered Tissue No -Bleeding Controlled with Pressure -Other undermining deepest part 7: 00-4.2cm -Offloading No -Treatment Response Procedure Tolerated Well [See Physician Procedure note for Specifics] Pain Scale: 0-10 Numeric [Pain] -Is Patient Pain Free? Yes Debridement Note Post-Debridement Measurements/Treatment - Nurse 2 - General Ulcer CM Notes Start: 01/09/19 09:22 Freq: Status: Active Protocol: Activity Type Activity Date Activity User E-Sign Co-Sign Detail Recorded Client Recorded Date Recorded By Document 01/09/19 09:49 MW [id number] 01/09/19 09:52 MW Document 01/15/19 08:50 JF [id number] 01/15/19 08:54 JF Document 01/20/19 09:04 [id number] 01/20/19 09:05 01/09/19 01/15/19 01/20/19 09:49 08:50 09:04 Wound Center Nurse 2 #7 sacrum -Time 09:49 08:50 09:04 -Correct Patient Yes Yes Yes -Correct Side, Site, Position Yes Yes Yes -Correct Procedure Yes Yes Yes -Procedure Performed Yes Yes Yes -Type of Procedure Debridement Debridement Debridement -Clinical Debridement Subcutaneous Subcutaneous Muscle -Post Debridement Size (cm) - Length 2.5 2.7 3 -Post Debridement Size (cm) - Width 6.1 5.7 6 -Post Debridement Size (cm) - Depth 2.5 2.7 3.2 -Total Square Cm 15.25 15.39 18 -Wound/Ulcer Outcome Not Healed Not Healed Not Healed -Ulcer Cleansing Rinsed/ Rinsed/ Rinsed/ Irrigated with Irrigated with Irrigated with Saline Saline Saline -Foul Odor after Cleansing No No No -Bioengineered Tissue No No No -Bleeding Controlled with Pressure Pressure Pressure Silver nitrate -Other undermining deepest part 7: 00-4.2cm -Offloading No No No -Treatment Response Procedure Procedure Procedure Tolerated Well Tolerated Well Tolerated Well Pain Scale: 0-10 Numeric Is Patient Pain Free? Yes Yes Yes Wound debrided: #7 Sacral area. Laterality: Not Applicable Wound Grade/Stage: IV. Type of Debridement: Excisional debridement Anesthesia Used: 4% Lidocaine Solution Depth: Down to and including healthy tissue, in the subcutaneous layer, to muscle, to bone - bone is palpable but not debrided. Percentage of wound debrided: 100 Instrument Used: 7mm curette Tissue Removed: subcutaneous tissue and muscle and hypergranuluation tissue. Severity: Fat Layer Exposed - muscle is exposed. bone is palpable but not debrided. Amount of bleeding with debridement: Moderate Bleeding Controlled with: Pressure, Silver Nitrate Patient tolerated procedure well Assessment/Plan Assessment: 1. Sacral pressure sore, Stage IV. 2. History of osteomyelitis. 3. s/p repair colovaginal fistula. 4. s/p excision sacral pressure sore, Stage IV, with partial ostectomy for osteomyelitis. 5. Recurrent hypergranulation tissue. Plan: Continue wound VAC at 150 mmHg continuous suction to be changed three times per week. Operative culture showed Coag negative Staph and Actinomyces odontolyticus. She was treated with Doxycycline and has finished them. Recent wound culture from 10/09/18 showed Streptococcus agalactiae and Corynebacterium striatum. She was placed on Augmentin and has finished them. Prealbumin from 09/10/18 was 18.1. Encourage nutritional supplementation with protein to help the healing process. Her hypergranulation tissue continues. Patient is getting frustrated. She is still reluctant to proceed with a flap because she doesn't want to be on bedrest postop. With the persistent recurrent hypergranulation tissue despite aggressive efforts at debridement at the wound center, she would be best served with another maintenance operative debridement to remove the excess hypergranulation tissue. She was tearful and has agreed to the operative debridement. Will also biopsy the bone as well because of her history of osteomyelitis. Surgery would be under general anesthesia with a surgical observation overnight stay in the hospital. The VAC will be placed the following day. Patient was informed of the risks and complications of the procedure including alternatives to surgery. These were discussed with her personally. She voices understanding and wishes to proceed. Will schedule the surgery next month. Followup one week with Dr. Santiago. Followup 3 weeks with me.
[2019-01-28 15:37] VITALS: BP 144/80; PULSE 89; RESP 20; TEMP 36.6; BMI 34.8
--- NOTE | 2019-01-28 21:35 | PN.PCM_ITS ---
(1) Pressure ulcer of sacral region, stage 4 Status: Chronic Current Visit: Yes Code(s): L89.154 - Pressure ulcer of sacral region, stage 4 (2) Acute osteomyelitis of sacrum Status: Chronic Current Visit: Yes Code(s): M46.28 - Osteomyelitis of vertebra, sacral and sacrococcygeal region (3) Hypergranulation Status: Acute Current Visit: Yes Code(s): L92.9 - Granulomatous disorder of the skin and subcutaneous tissue, unspecified (4) Depression Status: Chronic Current Visit: Yes Code(s): F32.9 - Major depressive disorder, single episode, unspecified Type of Wound Date of Service: 01/28/19 Chief Complaint: Sacral pressure sore, Stage IV. History of Wound: Surgery 09/09/18 - Excision sacral pressure sore, Stage IV, with partial ostectomy for osteomyelitis. Wound care - VAC. Operative culture - Coag negative Staph and Actinomyces odontolyticus. She was treated with Doxycycline and has finished them. Recent wound culture from 10/09/18 showed Streptococcus agalactiae and Corynebacterium striatum. She was placed on Augmentin and has finished them. Pathology - negative for osteomyelitis. Prealbumin from 09/10/18 was 18.1. Encourage nutritional supplementation with protein to help the healing process. Today she denies fever. Her appetite is ok. Progress of Wound: Comes in today with concern from home health that there is an odor and slime discharge. - Physical Exam Vital Signs Temp Pulse Resp BP Pulse Ox 97.8 F 89 20 H 144/80 H 94 01/28/19 15:37 01/28/19 15:37 01/28/19 15:37 01/28/19 15:37 01/09/19 09:22 General: Alert, Oriented x3, Cooperative HEENT: Atraumatic Oral: Moist Mucosa Lungs: Normal air movement Cardiovascular: Regular rate Extremities: Capillary Refill Less than 3 Seconds Skin: Ulcer/ Wound - sacral ulcer Wound Measurements and Assessment WC - Nurse 1 - General Ulcer Measurement Start: 01/09/19 09:22 Freq: Status: Active Protocol: Activity Type Activity Date Activity User E-Sign Co-Sign Detail Recorded Client Recorded Date Recorded By Document 01/28/19 15:37 DL [id number] 01/28/19 15:46 DL 01/28/19 15:37 Wound Center Nurse 1 [Ulcer Assessment] #7 sacrum -Current Size (cm) - Length 2.8 -Current Size (cm) - Width 5 -Current Size (cm) - Depth 4 -Total Square Cm 14.0 -Photo Taken No -Maximum Distance #2 (cm) 3.8 -Circular Undermining Yes -Exudate Amt Medium -Exudate Type Serosanguineous -Wound Margin Distinct, Outline Attached -Granulation Amt Medium (34-66%) -Granulation Quality [place],Red -Necrosis Amt Medium (34-66%) -Necrotic Tissue Type Adherent Slough -Structure Exposed N/A -Texture (Amanda-wound Skin Appearance) Scarring -Moisture (Amanda-wound Skin Appearance No Abnormality ) -Color (Amanda-wound Skin Appearance) No Abnormality -Temperature (Amanda-wound Skin No Abnormality Appearance) (Pt Warm) -Tenderness on Palpation (Amanda-wound No Skin Appearance) -Ulcer Cleansing Wound Cleanser -Foul Odor after Cleansing No -Anesthetic Used 4% Lidocaine Solution WC - Nurse 2 - General Ulcer CM Notes Start: 01/09/19 09:22 Freq: Status: Active Protocol: Activity Type Activity Date Activity User E-Sign Co-Sign Detail Recorded Client Recorded Date Recorded By Document 01/28/19 16:25 [id number] 01/28/19 16:26 01/28/19 16:25 Wound Center Nurse 2 [Procedure/Treatment] -Time 16:26 -Correct Patient Yes -Correct Side, Site, Position Yes -Correct Procedure Yes -Procedure Performed Yes -Type of Procedure Debridement -Clinical Debridement Subcutaneous -Post Debridement Size (cm) - Length 2.8 -Post Debridement Size (cm) - Width 5.7 -Post Debridement Size (cm) - Depth 2.5 -Total Square Cm 15.96 -Wound/Ulcer Outcome Not Healed -Ulcer Cleansing Rinsed/ Irrigated with Saline -Foul Odor after Cleansing No -Bioengineered Tissue No -Bleeding Controlled with Pressure -Offloading No -Treatment Response Procedure Tolerated Well [See Physician Procedure note for Specifics] Pain Scale: 0-10 Numeric [Pain] -Is Patient Pain Free? Yes Musculoskeletal: No Tenderness to Palpation of Joints or Extremities Neurological: Neuro grossly intact Psych/Mental Status: Normal Affect, Anxious Debridement Note Post-Debridement Measurements/Treatment WC - Nurse 2 - General Ulcer CM Notes Start: 08/08/19 09:22 Freq: Status: Active Protocol: Activity Type Activity Date Activity User E-Sign Co-Sign Detail Recorded Client Recorded Date Recorded By Document 01/09/19 09:49 MW [id number] 01/09/19 09:52 MW Document 01/15/19 08:50 JF [id number] 01/15/19 08:54 JF Document 01/20/19 09:04 JF [id number] 01/20/19 09:05 JF Document 01/28/19 16:25 JF [id number] 01/28/19 16:26 JF 01/09/19 01/15/19 01/20/19 09:49 08:50 09:04 Wound Center Nurse 2 #7 sacrum -Time 09:49 08:50 09:04 -Correct Patient Yes Yes Yes -Correct Side, Site, Position Yes Yes Yes -Correct Procedure Yes Yes Yes -Procedure Performed Yes Yes Yes -Type of Procedure Debridement Debridement Debridement -Clinical Debridement Subcutaneous Subcutaneous Muscle -Post Debridement Size (cm) - Length 2.5 2.7 3 -Post Debridement Size (cm) - Width 6.1 5.7 6 -Post Debridement Size (cm) - Depth 2.5 2.7 3.2 -Total Square Cm 15.25 15.39 18 -Wound/Ulcer Outcome Not Healed Not Healed Not Healed -Ulcer Cleansing Rinsed/ Rinsed/ Rinsed/ Irrigated with Irrigated with Irrigated with Saline Saline Saline -Foul Odor after Cleansing No No No -Bioengineered Tissue No No No -Bleeding Controlled with Pressure Pressure Pressure -Other undermining deepest part 7: 00-4.2cm -Offloading No No No -Treatment Response Procedure Procedure Procedure Tolerated Well Tolerated Well Tolerated Well Pain Scale: 0-10 Numeric Is Patient Pain Free? Yes Yes Yes 01/28/19 16:25 Wound Center Nurse 2 #7 sacrum -Time 16:26 -Correct Patient Yes -Correct Side, Site, Position Yes -Correct Procedure Yes -Procedure Performed Yes -Type of Procedure Debridement -Clinical Debridement Subcutaneous -Post Debridement Size (cm) - Length 2.8 -Post Debridement Size (cm) - Width 5.7 -Post Debridement Size (cm) - Depth 2.5 -Total Square Cm 15.96 -Wound/Ulcer Outcome Not Healed -Ulcer Cleansing Rinsed/ Irrigated with Saline -Foul Odor after Cleansing No -Bioengineered Tissue No -Bleeding Controlled with Pressure -Other -Offloading No -Treatment Response Procedure Tolerated Well Pain Scale: 0-10 Numeric Is Patient Pain Free? Yes Wound debrided: Sacrum ulcer Type of Debridement: Excisional debridement Anesthesia Used: 4% Lidocaine Solution, 5% Lidocaine Gel Depth: Down to and including healthy tissue, in the subcutaneous layer Percentage of wound debrided: 100 Instrument Used: 7mm curette Tissue Removed: Subcutaneous tissue and slough Severity: Fat Layer Exposed Amount of bleeding with debridement: Moderate Bleeding Controlled with: Pressure, Compression and gauze Patient tolerated procedure well No hypergranulation is pale in some areas. Appeared to have increased biofilm, but when debrided it actually was the hypergranulation areas are pale. Assessment/Plan Active Problems (Last Reviewed 05/16/18 @ 14:58 by Raúl Villareal DO) Constipation (Chronic) Hypergranulation (Acute) Acute osteomyelitis of sacrum (Chronic) Depression (Chronic) Pressure ulcer of sacral region, stage 4 (Chronic) Assessment: 1. Sacral pressure sore, Stage IV. 2. History of osteomyelitis. 3. s/p repair colovaginal fistula. 4. s/p excision sacral pressure sore, Stage IV, with partial ostectomy for osteomyelitis. 5. Recurrent hypergranulation tissue. Plan: Continue wound VAC at 150 mmHg continuous suction to be changed on Sunday this week, then 3 times per week after Sunday. Operative culture showed Coag negative Staph and Actinomyces odontolyticus. She was treated with Doxycycline and has finished them. Recent wound culture from 10/09/18 showed Streptococcus agalactiae and Corynebacterium striatum. She was placed on Augmentin and has finished them. Prealbumin from 09/10/18 was 18.1. Encourage nutritional supplementation with protein to help the healing process. Her hypergranulation tissue continues. Patient is getting frustrated. She is still reluctant to proceed with a flap because she doesn't want to be on bedrest postop. With the persistent recurrent hypergranulation tissue despite aggressive efforts at [facility] at the wound center, she would be best served with another maintenance operative debridement to remove the excess hypergranulation tissue. She was tearful and has agreed to the operative debridement. Will also biopsy the bone as well because of her history of osteomyelitis. Surgery would be under general anesthesia with a surgical observation overnight stay in the hospital. The VAC will be placed the following day. Patient was informed of the risks and complications of the procedure including alternatives to surgery. These were discussed with her personally. She voices understanding and wishes to proceed. Will schedule the surgery next month. Sent wound culture today due to her coming in early because of the concern from home health. There is no odor. The mohamud color is the hypergranulation is pale. Patient denying increased pain, or fever, chills or nausea and vomiting. Followup two weeks. Code Visit [id number]: [id number] Magalys subq tissue 20 sq cm/<
--- NOTE | 2019-01-31 17:48 | WC ---
JAVIER MCCORD REVIEWED CX RESULTS. + MRSA. GIVES VERBAL ORDER FOR PT TO START DOXYCYCLINE 100 MG PO BID X 14 DAYS W/ 1 REFILL. VERIFIED ALLERGIES. CALLED PT W/ UPDATE. CALLED RX TO [facility]. SPOKE W/ DULCE. ENCOURAGED PT TO TAKE MED W/ FOOD.
== END 2019-02-01 23:59 ==
LOC: WC 15:00
PROVIDERS: Family Provider Family Medicine Geriatric Medicine; PCP Family Medicine Geriatric Medicine; Referring Provider Internal Medicine; Visit Provider Internal Medicine
DX: L89.154 Pressure ulcer of sacral region, stage 4 (principal); E66.01 Morbid (severe) obesity due to excess calories; Z68.41 Body mass index [BMI] 40.0-44.9, adult; Z71.3 Dietary counseling and surveillance; T81.89XA Other complications of procedures, not elsewhere classified, initial encounter; Y83.8 Other surgical procedures as the cause of abnormal reaction of the patient, or of later complication, without mention of misadventure at the time of the procedure
CPT/HCPCS: 11042; 11043; 87070; 87075; 87077; 87186; 87205; 97605

== ENCOUNTER 2019-03-03 09:30 | Outpatient (RCR) | payer MEDICARE, OTHER, SELFPAY ==
[2019-02-02 00:25] VITALS: BP 144/80; PULSE 89; RESP 20; TEMP 36.6; O2SAT 94
[2019-02-10 08:51] VITALS: BP 130/71; PULSE 87; RESP 16; TEMP 36.4; BMI 34.8
--- NOTE | 2019-02-10 22:29 | PCM.WC.PN ---
Type of Wound Date of Service: 02/10/19 Chief Complaint: Sacral pressure sore, Stage IV. History of Wound: Surgery 09/09/18 - Excision sacral pressure sore, Stage IV, with partial ostectomy for osteomyelitis. Wound care - VAC. Operative culture - Coag negative Staph and Actinomyces odontolyticus. She was treated with Doxycycline and has finished them. Recent wound culture from 10/09/18 showed Streptococcus agalactiae and Corynebacterium striatum. She was placed on Augmentin and has finished them. Another wound culture from 01/29/19 showed MRSA. She was placed on Doxycycline. Pathology - negative for osteomyelitis. Prealbumin from 09/10/18 was 18.1. Encourage nutritional supplementation with protein to help the healing process. Today she denies fever. Her appetite is ok. Progress of Wound: Stable with some hypergranulation tissue. - Physical Exam Vital Signs Temp Pulse Resp BP Pulse Ox 97.5 F L 87 16 130/71 H 94 02/10/19 08:51 02/10/19 08:51 02/10/19 08:51 02/10/19 08:51 02/02/19 00:25 Wound Measurements and Assessment WC - Nurse 1 - General Ulcer Measurement Start: 02/10/19 08:51 Freq: Status: Active Protocol: Activity Type Activity Date Activity User E-Sign Co-Sign Detail Recorded Client Recorded Date Recorded By Document 02/10/19 08:51 MW [id number] 02/10/19 09:02 MW 02/10/19 08:51 Wound Center Nurse 1 [Ulcer Assessment] #7 sacrum -Combined with other wound No -Current Size (cm) - Length 2.6 -Current Size (cm) - Width 5.2 -Current Size (cm) - Depth 2.4 -Total Square Cm 13.52 -Classification - Thickness Full Thickness with Exposed Support Structure -Exudate Amt Medium -Exudate Type Serosanguineous -Wound Margin Distinct, Outline Attached -Granulation Amt Large (67-100%) -Granulation Quality Red -Slough/Fibrin Yes -Necrosis Amt Small (1-33%) -Necrotic Tissue Type Adherent Slough -Structure Exposed Fat Layer Exposed -Texture (Amanda-wound Skin Appearance) Assessed -Moisture (Amanda-wound Skin Appearance Assessed ) -Color (Amanda-wound Skin Appearance) Assessed -Temperature (Amanda-wound Skin No Abnormality Appearance) (Pt Warm) -Tenderness on Palpation (Amanda-wound Yes Skin Appearance) -Ulcer Cleansing Rinsed/ Irrigated with Saline -Foul Odor after Cleansing No -Anesthetic Used 4% Lidocaine Solution [Edema Assessment] -Lower Limb Edema Present No - Nurse 2 - General Ulcer CM Notes Start: 02/10/19 08:51 Freq: Status: Active Protocol: Activity Type Activity Date Activity User E-Sign Co-Sign Detail Recorded Client Recorded Date Recorded By Document 02/10/19 09:26 [id number] 02/10/19 09:34 02/10/19 09:26 Wound Center Nurse 2 [Procedure/Treatment] #7 sacrum -Time 09:33 -Correct Patient Yes -Correct Side, Site, Position Yes -Correct Procedure Yes -Procedure Performed Yes -Type of Procedure Debridement -Clinical Debridement Muscle -Post Debridement Size (cm) - Length 2.6 -Post Debridement Size (cm) - Width 5.3 -Post Debridement Size (cm) - Depth 2.5 -Total Square Cm 13.78 -Wound/Ulcer Outcome Not Healed -Ulcer Cleansing Rinsed/ Irrigated with Saline -Foul Odor after Cleansing No -Bioengineered Tissue No -Bleeding Controlled with Pressure -Offloading No -Treatment Response Procedure Tolerated Well [See Physician Procedure note for Specifics] Pain Scale: 0-10 Numeric [Pain] -Is Patient Pain Free? Yes Debridement Note Post-Debridement Measurements/Treatment WC - Nurse 2 - General Ulcer CM Notes Start: 02/10/19 08:51 Freq: Status: Active Protocol: Activity Type Activity Date Activity User E-Sign Co-Sign Detail Recorded Client Recorded Date Recorded By Document 02/10/19 09:26 [id number] 02/10/19 09:34 02/10/19 09:26 Wound Center Nurse 2 #7 sacrum -Time 09:33 -Correct Patient Yes -Correct Side, Site, Position Yes -Correct Procedure Yes -Procedure Performed Yes -Type of Procedure Debridement -Clinical Debridement Muscle -Post Debridement Size (cm) - Length 2.6 -Post Debridement Size (cm) - Width 5.3 -Post Debridement Size (cm) - Depth 2.5 -Total Square Cm 13.78 -Wound/Ulcer Outcome Not Healed -Ulcer Cleansing Rinsed/ Irrigated with Saline -Foul Odor after Cleansing No -Bioengineered Tissue No -Bleeding Controlled with Pressure -Offloading No -Treatment Response Procedure Tolerated Well Pain Scale: 0-10 Numeric Is Patient Pain Free? Yes Wound debrided: #7 Sacral area. Laterality: Not Applicable Wound Grade/Stage: IV. Type of Debridement: Excisional debridement Anesthesia Used: 4% Lidocaine Solution Depth: Down to and including healthy tissue, in the subcutaneous layer, to muscle, to bone - bone is palpable but not debrided. Percentage of wound debrided: 100 Instrument Used: 7mm curette Tissue Removed: subcutaneous tissue and muscle. Severity: Fat Layer Exposed - muscle is exposed. bone is palpable but not debrided. Amount of bleeding with debridement: Mild Bleeding Controlled with: Pressure Patient tolerated procedure well Assessment/Plan Assessment: 1. Sacral pressure sore, Stage IV. 2. History of osteomyelitis. 3. s/p repair colovaginal fistula. 4. s/p excision sacral pressure sore, Stage IV, with partial ostectomy for osteomyelitis. 5. Recurrent hypergranulation tissue. 6. MRSA. Plan: Continue wound VAC at 150 mmHg continuous suction to be changed three times per week. Operative culture showed Coag negative Staph and Actinomyces odontolyticus. She was treated with Doxycycline and has finished them. Recent wound culture from 10/09/18 showed Streptococcus agalactiae and Corynebacterium striatum. She was placed on Augmentin and has finished them. Another wound culture was done on 01/29/19 and it showed MRSA. She was placed on Doxycycline. Prealbumin from 09/10/18 was 18.1. Encourage nutritional supplementation with protein to help the healing process. Her hypergranulation tissue continues. Patient is getting frustrated. She is still reluctant to proceed with a flap because she doesn't want to be on bedrest postop. With the persistent recurrent hypergranulation tissue despite aggressive efforts at debridement at the wound center, she would be best served with another maintenance operative debridement to remove the excess hypergranulation tissue. She was tearful and has agreed to the operative debridement. Will also biopsy the bone as well because of her history of osteomyelitis. Surgery would be under general anesthesia with a surgical observation overnight stay in the hospital. The VAC will be placed the following day. Patient was informed of the risks and complications of the procedure including alternatives to surgery. These were discussed with her personally. She voices understanding and wishes to proceed. Will schedule the surgery next month. After the operative debridement, if osteomyelitis is present, then IV antibiotics would be necessary before proceeding with a muslce flap. Followup 3 weeks.
[2019-03-03 09:29] VITALS: BP 144/101; PULSE 98; RESP 18; TEMP 36.6; BMI 34.8
--- NOTE | 2019-03-03 12:52 | PCM.WC.PN ---
(1) Pressure ulcer of sacral region, stage 4 Status: Chronic Code(s): L89.154 - Pressure ulcer of sacral region, stage 4 (2) Hypergranulation Status: Chronic Code(s): L92.9 - Granulomatous disorder of the skin and subcutaneous tissue, unspecified (3) Depression Status: Chronic Code(s): F32.9 - Major depressive disorder, single episode, unspecified Type of Wound Date of Service: 03/03/19 Chief Complaint: Sacral pressure sore, Stage IV. History of Wound: Surgery 09/09/18 - Excision sacral pressure sore, Stage IV, with partial ostectomy for osteomyelitis. Wound care - VAC. Operative culture - Coag negative Staph and Actinomyces odontolyticus. She was treated with Doxycycline and has finished them. Recent wound culture from 10/09/18 showed Streptococcus agalactiae and Corynebacterium striatum. She was placed on Augmentin and has finished them. Another wound culture from 01/29/19 showed MRSA. She was placed on Doxycycline. Pathology - negative for osteomyelitis. Prealbumin from 09/10/18 was 18.1. Encourage nutritional supplementation with protein to help the healing process. Today she denies fever. Her appetite is ok. Progress of Wound: Stable with some hypergranulation tissue. - Physical Exam Vital Signs Temp Pulse Resp BP Pulse Ox 98 F 98 18 144/101 H 94 03/03/19 09:29 03/03/19 09:29 03/03/19 09:29 03/03/19 09:29 02/02/19 00:25 General: Alert, Oriented x3, Cooperative HEENT: Atraumatic Oral: Moist Mucosa Lungs: Normal air movement Cardiovascular: Regular rate Extremities: Capillary Refill Less than 3 Seconds Skin: Ulcer/ Wound - Sacral ulcer Wound Measurements and Assessment WC - Nurse 1 - General Ulcer Measurement Start: 02/10/19 08:51 Freq: Status: Active Protocol: Activity Type Activity Date Activity User E-Sign Co-Sign Detail Recorded Client Recorded Date Recorded By Document 03/03/19 09:29 MW [id number] 03/03/19 09:33 MW 03/03/19 09:29 Wound Center Nurse 1 [Ulcer Assessment] #7 sacrum -Combined with other wound No -Current Size (cm) - Length 2.4 -Current Size (cm) - Width 4.6 -Current Size (cm) - Depth 2.5 -Total Square Cm 11.04 -Photo Taken No -Tunneling No -Undermining/Tunneling No -Circular Undermining Yes -Exudate Amt Small -Exudate Type Serosanguineous -Wound Margin Distinct, Outline Attached -Granulation Amt Large (67-100%) -Granulation Quality Hyper- granulation,Red -Slough/Fibrin Yes -Necrosis Amt Small (1-33%) -Necrotic Tissue Type Adherent Slough -Texture (Amanda-wound Skin Appearance) Assessed, Scarring -Moisture (Amanda-wound Skin Appearance Assessed ) -Color (Amanda-wound Skin Appearance) Assessed, Erythema -Temperature (Amanda-wound Skin No Abnormality Appearance) (Pt Warm) -Tenderness on Palpation (Amanda-wound No Skin Appearance) -Ulcer Cleansing soap and water -Foul Odor after Cleansing No -Anesthetic Used 4% Lidocaine Solution WC - Nurse 2 - General Ulcer CM Notes Start: 02/10/19 08:51 Freq: Status: Active Protocol: Activity Type Activity Date Activity User E-Sign Co-Sign Detail Recorded Client Recorded Date Recorded By Document 03/03/19 10:24 [id number] 03/03/19 10:28 03/03/19 10:24 Wound Center Nurse 2 [Procedure/Treatment] -Time 10:27 -Correct Patient Yes -Correct Side, Site, Position Yes -Correct Procedure Yes -Procedure Performed Yes -Type of Procedure Debridement -Clinical Debridement Muscle -Post Debridement Size (cm) - Length 2.5 -Post Debridement Size (cm) - Width 5 -Post Debridement Size (cm) - Depth 2.4 -Total Square Cm 12.5 -Wound/Ulcer Outcome Not Healed -Ulcer Cleansing Rinsed/ Irrigated with Saline -Foul Odor after Cleansing No -Bioengineered Tissue No -Bleeding Controlled with Pressure -Other undermining circumferential -3.5cm -Offloading No -Treatment Response Procedure Tolerated Well [See Physician Procedure note for Specifics] Pain Scale: 0-10 Numeric [Pain] -Is Patient Pain Free? Yes Musculoskeletal: No Tenderness to Palpation of Joints or Extremities Neurological: Neuro grossly intact Psych/Mental Status: Normal Affect, Appropriate Debridement Note Post-Debridement Measurements/Treatment WC - Nurse 2 - General Ulcer CM Notes Start: 02/10/19 08:51 Freq: Status: Active Protocol: Activity Type Activity Date Activity User E-Sign Co-Sign Detail Recorded Client Recorded Date Recorded By Document 02/10/19 09:26 [id number] 02/10/19 09:34 Document 03/03/19 10:24 [id number] 03/03/19 10:28 02/10/19 03/03/19 09:26 10:24 Wound Center Nurse 2 #7 sacrum -Time 09:33 10:27 -Correct Patient Yes Yes -Correct Side, Site, Position Yes Yes -Correct Procedure Yes Yes -Procedure Performed Yes Yes -Type of Procedure Debridement Debridement -Clinical Debridement Muscle Muscle -Post Debridement Size (cm) - Length 2.6 2.5 -Post Debridement Size (cm) - Width 5.3 5 -Post Debridement Size (cm) - Depth 2.5 2.4 -Total Square Cm 13.78 12.5 -Wound/Ulcer Outcome Not Healed Not Healed -Ulcer Cleansing Rinsed/ Rinsed/ Irrigated with Irrigated with Saline Saline -Foul Odor after Cleansing No No -Bioengineered Tissue No No -Bleeding Controlled with Pressure Pressure -Other undermining circumferential -3.5cm -Offloading No No -Treatment Response Procedure Procedure Tolerated Well Tolerated Well Pain Scale: 0-10 Numeric Is Patient Pain Free? Yes Yes Wound debrided: Sacral ulcer Wound Grade/Stage: Stage IV Type of Debridement: Excisional debridement Anesthesia Used: 4% Lidocaine Solution, 5% Lidocaine Gel Depth: Down to and including healthy tissue, in the subcutaneous layer Percentage of wound debrided: 100 Instrument Used: 7mm curette Tissue Removed: Subcutaneous tissue and slough Severity: Fat Layer Exposed Amount of bleeding with debridement: Moderate Bleeding Controlled with: Pressure, Compression and gauze Patient tolerated procedure well Assessment/Plan Assessment: 1. Sacral pressure sore, Stage IV. 2. History of osteomyelitis. 3. s/p repair colovaginal fistula. 4. s/p excision sacral pressure sore, Stage IV, with partial ostectomy for osteomyelitis. 5. Recurrent hypergranulation tissue. 6. MRSA. Plan: Continue wound VAC at 150 mmHg continuous suction to be changed three times per week. Operative culture showed Coag negative Staph and Actinomyces odontolyticus. She was treated with Doxycycline and has finished them. Recent wound culture from 10/09/18 showed Streptococcus agalactiae and Corynebacterium striatum. She was placed on Augmentin and has finished them. Another wound culture was done on 01/29/19 and it showed MRSA. She was placed on Doxycycline, which she completed. Prealbumin from 09/10/18 was 18.1. Encourage nutritional supplementation with protein to help the healing process. Her hypergranulation tissue continues. Patient is getting frustrated. She is still reluctant to proceed with a flap because she doesn't want to be on bedrest postop. With the persistent recurrent hypergranulation tissue despite aggressive efforts at debridement at the wound center, she would be best served with another maintenance operative debridement to remove the excess hypergranulation tissue. She was tearful and has agreed to the operative debridement. Will also biopsy the bone as well because of her history of osteomyelitis. Surgery would be under general anesthesia with a surgical observation overnight stay in the hospital. The VAC will be placed the following day. Patient was informed of the risks and complications of the procedure including alternatives to surgery. These were discussed with her personally. She voices understanding and wishes to proceed. Will schedule the surgery next month. After the operative debridement, if osteomyelitis is present, then IV antibiotics would be necessary before proceeding with a muslce flap. Followup 2 weeks. Code Visit [id number]: [id number] Magalys musc/fascia 20 sq cm/<
== END 2019-03-03 23:59 ==
LOC: WC 09:30
PROVIDERS: Family Provider Family Medicine Geriatric Medicine; PCP Family Medicine Geriatric Medicine; Referring Provider Internal Medicine; Visit Provider Internal Medicine
DX: L89.154 Pressure ulcer of sacral region, stage 4 (principal); B95.62 Methicillin resistant Staphylococcus aureus infection as the cause of diseases classified elsewhere; M46.28 Osteomyelitis of vertebra, sacral and sacrococcygeal region; F32.9 Major depressive disorder, single episode, unspecified; L92.9 Granulomatous disorder of the skin and subcutaneous tissue, unspecified
CPT/HCPCS: 11043; 97605

== ENCOUNTER 2019-03-17 12:17 | Inpatient (IN) | payer MEDICARE, OTHER, SELFPAY ==
--- NOTE | 2019-03-16 21:45 | PCM.HP.BLA ---
History and Physical Date of Admission: 03/17/19 HISTORY OF PRESENT ILLNESS 68 year old woman presents for further operative excision of her sacral pressure sore because of the development of severe hypergranulation tissue. Wound care is hampered with the VAC because of the hypergranulation tissue. After her last excision of her sacral pressure sore in 05/21, her bone pathology was positive for osteomyelitis. Her bone culture was positive for corynebacterium minutissimum and Staphylococcus epidermidis. She received IV Vancomycin for 6 weeks. At the time of her pressure sore, she was found to have a colovaginal fistula that was surgically repaired in 12/19 at [facility]. She had additional surgery on 09/09/18 where she further operative excision of her sacral pressure sore because of persistence of hypergranulation tissue. Operative culture showed Actinomyces odontolyticus. She was placed on Doxycycline and finished them. Recent wound culture from 01/29/19 showed MRSA. She was also placed on Doxycycline and has finished them. Further operative maintenance excision was recommended because of persistent hypergranulation tissue. PAST MEDICAL HISTORY Depression. GERD. Colovaginal fistula. Hypertension. Hypothyroidism. Neuropathy. Osteomyelitis. Anxiety. Anemia. Atrial fibrillation. Back pain. MRSA. PAST SURGICAL HISTORY Hysterectomy. Uterine ablation. D&C. Excision of sacral pressure sore - 04/20 Repair of colovaginal fistula - 12/19 Excision sacral pressure sore, Stage IV, with partial ostectomy for osteomyelitis - 05/14/18 Excision sacral pressure sore, Stage IV, with partial ostectomy for osteomyelitis - 09/09/18 MEDICATIONS Vitamin C. Aspirin. Vitamin D3. Synthroid. Omeprazole. K-dur. Neurontin. Iron supplement. Protein shakes. Linzess. Fish oil. Doxycycline - just finished. ALLERGIES Bee venom. Skelaxin. FAMILY HISTORY Positive for COPD, Lung cancer, Myocardial infarction. SOCIAL HISTORY Patient is a former smoker. Patient does not drink alcohol. REVIEW OF SYSTEMS General - Denies fever, fatigue, and weight loss. Eyes - Denies cataracts and glaucoma. ENT - Denies nasal congestion and sore throat. Endocrine - Denies excessive thirst and urination. Skin - Denies suspicious lesions and skin cancer. Has sacral pressure sore with persistent hypergranulation tissue. Musculoskeletal - Denies joint pain, joint stiffness, weakness of muscles and joints, back pain, and arthritis. Neuro - Denies headaches. Cardiovascular - Denies chest pain, fatigue, and shortness of breath with exertion. Psych - Denies anxiety. Has depression. Respiratory - Denies chronic cough and shortness of breath. Gastrointestinal - Denies nausea, vomiting, diarrhea, and constipation. had repair colovaginal fistula. Hematologic - Denies abnormal bruising and bleeding. Genitourinary - Denies hematuria and urinary frequency. PHYSICAL EXAMINATION General - Alert and Oriented HEENT - PERRL. EOMI. Throat is clear. Neck - Supple and nontender. No cervical adenopathy. Lungs - Clear to auscultation. Heart - Regular rate and rhythm. Abdomen - Soft and nondistended. Extremities - FROM. No axillary adenopathy. Radial pulses are palpable. Back - On the sacral area is a pressure sore that has severe hypergranulation tissue. Bone is palpable but not exposed. It is a Stage IV. Measures 5 x 2.5 x 2.5 cm. There is some circular undermining measuring about 3 cm. Some abnormal bursal scar tissue seen. No fluctuance or purulent drainage noted. Neuro - CN II-XII grossly intact. Psych - Normal mood and affect. ASSESSMENT 1. Sacral pressure sore, Stage IV. 2. Osteomyelitis. 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 5. Severe hypergranulation tissue sacral pressure sore. PLAN Currently she has the VAC NPWT for the sacral pressure sore. Patient has persistent hypergranulation tissue in the sacral pressure sore which is hindering the healing process. Recommended to the patient to proceed with further maintenance excision of this sacral pressure sore and partial ostectomy for osteomyelitis. Surgery will be under general anesthesia with a surgical observation overnight stay in the hospital. She understands the necessity of further surgery and wishes to proceed. Patient was informed of the risks and complications of the procedure including alternatives to surgery. These were discussed with her personally. She voices understanding and wishes to proceed. Will treat perioperatively with Vancomycin because of the MRSA. Anticipate increased metabolic demands from the wound and the surgery. Will check a Prealbumin and encourage nutritional supplementation with protein to help the healing process. Tissue and bone will be sent to Pathology and Microbiology. A positive culture will necessitate antibiotic therapy. Depending on the sensitivity of the organisms, if IV antibiotics are needed then a PICC line would be needed. She understands the pressure sore will be made bigger in order to make the wound care easier with the VAC. With the amount of undermining, it is harder to heal because it is hard to pack the edges consistently because they are not visualized. If she continues to have healing issues with hypergranulation tissue, then will once again discuss wound closure with a fasciocutaneous flap or a large bilobed transposition skin flap taken from her lower back. Fasciocutaneous flap surgery would necessitate 6 weeks of bedrest. However a skin flap would not require bedrest as long.
[2019-03-17] VITALS (10 sets, daily range): BP systolic 97–137; BP diastolic 60–91; PULSE 65–108; RESP 16–18; TEMP 36.4–37.2; O2SAT 94–100; BMI 36.6
--- NOTE | 2019-03-17 07:42 | EKG12_ITS ---
Test Reason : PRE-OP Blood Pressure : / mmHG Vent. Rate : 074 BPM Atrial Rate : 074 BPM P-R Int : 162 ms QRS Dur : 070 ms QT Int : 376 ms P-R-T Axes : 074 001 072 degrees QTc Int : 417 ms Normal sinus rhythm Normal ECG Confirmed by CECILE MELISSA, YANELI ([id number]), restaurant expeditor SARAH PANDA ([id number] on 03/19/2019 10:51:32 AM Referred By: Regino Hansen Confirmed By:YANELI HUBER MD
[2019-03-17 07:55] LABS: Hemoglobin 13.6 g/dL (12.0-15.0); Mean Corp Hgb Conc 29.6 g/dL (32-36); Mean Corpuscular Hgb 25.6 pg (27.0-32.0); Mean Corpuscular Volume 86.5 fL (81-99); Mean Platelet Vol. 9.2 fl (6.2-12.0); Platelet Count 466 K/mm3 (150-450); RBC Distribution Width CV 16.4 % (11.6-14.6); RBC Distribution Width SD 51.9 fl (35.1-43.9); Red Blood Count 5.32 M/mm3 (4.2-5.4); White Blood Count 11.7 K/mm3 (4.4-11.0)
[2019-03-17] MEDS: Lactated Ringers 1,000 ML 100 ML IV (08:02)
[2019-03-17] MEDS: Vancomycin IV 1,000 MG/200 ML BAG 200 MG IV ×2 (08:03→17:15)
[2019-03-17 08:17] LABS: Prothrombin Time (Protime)PT. 12.9 SECONDS (11.7-14.9)
[2019-03-17 08:20] LABS: Anion Gap 7 (5-15); BUN 23 mg/dL (7-18); BUN/Creat Ratio 27.2 RATIO (10-20); Calcium,Total 9.1 mg/dL (8.5-10.1); Chloride 112 mmol/L (98-107); Creatinine, Serum 0.85 mg/dL (0.55-1.02); EST Glomerular Filtration Rate 71 mL/min (>60); Est Glom Filt Rate - Afr Amer 86 mL/min (>60); Estimated Creatinine Clearance 55.46 ml/min; Glucose 90 mg/dL (74-106); Potassium 4.3 mmol/L (3.5-5.1); Sodium Level 143 mmol/L (136-145); Thyroid Stim Hormone (TSH) 2.21 uIU/mL (0.358-3.74)
--- NOTE | 2019-03-17 09:00 | PRES_PTH ---
PATIENT: CHARISSA GUNTER LOC: [facility] U#:[id number] AGE/SX: 68/F ROOM: [facility]316 RE03/17/[address]: Dr. Regino Hansen MD : 1950 BED: 1 DIS: 03/21/2019 SPEC #: [id number] RECD: 03/17/19 16:17 STATUS: EUSEBIO RERoel #: [id number] KATY: 03/17/19 09:[address]: Regino Hansen DEPT: SURGICAL PATHOLOGY RECD BY: Esvin Shine ENTERED: 03/18/19 10:01 SP TYPE: PRESS SORE OTHR DR: MD Micheal Plaza Dr., MD Dr. Grabriel Galang, MD Dr. Marc Fiorentino, MD Dr. Nicholas F Kotsonis, MD Dr. Robert Leininger, MD Dr. Tai Chi Kwok, MD Tissues: A - Sacral region B - Sacral region Procedures: Decalcification bone/plaque Surgery Specimen Level IV HEADER OPERATION: Excision of sacral pressure sore, partial ostectomy PRE-OP DIAGNOSIS: Sacral pressure sore, stage IV; osteomyelitis TISSUE SUBMITTED: A - Debrided sacral soft tissue, B - Debrided sacral bone MICROSCOPIC DIAGNOSIS A. Skin and soft tissue of sacral region, excision: Ulceration with associated acute and chronic inflammation and granulation. B. Sacral bone, debridement: Focal changes consistent with acute osteomyelitis. Trilineage hematopoiesis. AM:andrew 03/21/19 MICROSCOPIC DESCRIPTION Slides are reviewed. GROSS DESCRIPTION A - Received in fixative is one container labeled with the patient's name and designated debrided sacral soft tissue. The specimen consists of multiple irregular fragments of light to dark mohamud soft tissue ranging in size from 1.5 cm to 10 cm in greatest dimension. Fragments of skin are adherent on the largest tissue. Serial sections do not reveal mass lesions. Account Service Representative sections are submitted in one cassette. B - Received in fixative is one container labeled with the patient's name and designated debrided sacral bone. The specimen consists of multiple irregular fragments of light to dark mohamud bony tissue that in aggregate measure 2 x 2 x 0.2 cm. The specimen is totally submitted in one cassette after decalcification. / AM:andrew 03/18/19 TC:2 CPT: 16532 x2, 33776
[2019-03-17] MEDS: levoFLOXacin IV 500 MG/100 ML BAG 100 MG IV (09:51)
--- NOTE | 2019-03-17 12:11 | OP.PCM_ITS ---
Report of Operation Date of Procedure: 03/17/19 Pre-Operative Diagnosis: 1. Sacral pressure sore, Stage IV. 2. Osteomyelitis. 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 5. Severe hypergranulation tissue sacral pressure sore. Post-Operative Diagnosis: Same. Surgery/Procedure Performed:: Excision sacral pressure sore, Stage IV, with partial ostectomy for osteomyeiltis (71.5 cm2) and placement of AmnioFill placental connective tissue powder, 1000 mg. Description of Surgical Findings:: 68 year old woman presents for further operative excision of her sacral pressure sore because of the development of severe hypergranulation tissue. Wound care is hampered with the VAC because of the hypergranulation tissue. After her last excision of her sacral pressure sore in 05/21, her bone pathology was positive for osteomyelitis. Her bone culture was positive for corynebacterium minutissimum and Staphylococcus epidermidis. She received IV Vancomycin for 6 weeks. At the time of her pressure sore, she was found to have a colovaginal fi stula that was surgically repaired in 12/19 at [facility]. She had additional surgery on 09/09/18 where she further operative excision of her sacral pressure sore because of persistence of hypergranulation tissue. Operative culture showed Actinomyces odontolyticus. She was placed on Doxycycline and finished them. Recent wound culture from 01/29/19 showed MRSA. She was also placed on Doxycycline and has finished them. Further operative maintenance excision was recommended because of persistent hypergranulation tissue. Patient was informed of the risks and complications of the procedure including alternatives to surgery. These were discussed with the patient personally. Patient voices understanding and wishes to proceed. Size of defect sacral area - 11 x 6.5 x 3 cm. I used AmnioFill Placental Connective Tissue Powder, 1000 mg. Lot Number - [id number]. Catalog Number - [id number]. Expiration - May 04, 2023. building maintenance repairer: None Type of Anesthesia:: General Specimen's removed: 1. Sacral pressure sore soft tissue to Pathology and Microbiology. 2. Sacral pressure sore bone to Pathology and Microbiology. Drains: None. Estimated Blood Loss (mL): 250 ml. Description of Procedure: Patient was taken to OR in supine position and was placed under general anesthesia. She was then placed in the prone position. The sacral area was prepped and draped in the usual fashion. SCD's were placed for DVT prophylaxis. Perioperative antibiotics were given intravenously. Using xylocaine with epinephrine, the sacral pressure sore was infiltrated. After waiting 5 minutes for the anesthetic to take effect, I excised the sacral pressure sore in a circular fashion to include the undermined areas as well. Dissection was carried down into the subcutaneous tissue through the scarred muscle which was adherent to the underlying bone. The severe hypergranulation tissue was also excised as it was also adherent to the underlying bone. A partial ostectomy was then performed using rongeurs. The bone looked grayish and was not very hard. Clinically the bone looked suspicious for osteomyelitis. Specimens from several areas of bone were taken. A rasp was used to smooth out the bony edges. After excising the abnormal bursal scar tissue, the remaining soft tissue showed good bleeding. Hemostasis was obtained with electrocautery. The size of the sacral pressure sore after excision was 11 x 6.5 x 3 cm. The wound was irrigated with saline. I then placed AmnioFill placental connective tissue powder at the base of the wound over the bone. I then dressed the wound by placing Mepitel nonadherent dressing over the AmnioFill followed by Kerlix gauze and Betadine and dry Kerlix gauze followed by ABD pads compression dressing. Half the soft tissue and half the bone was sent to Pathology for analysis to rule out carcinoma and to evaluate for osteomyelitis. Half the soft tissue and half the bone was sent to Microbiology for culture. A positive culture will necessitate antibiotic therapy. If pathology is positive for osteomyelitis, then longterm IV antibiotics would be needed through a PICC line. She would also be evaluated at the [facility] for HBO treatments. Patient tolerated the procedure well and was sent to PACU in satisfactory condition. Patient will be sent upstairs for continued postop care. The VAC will be placed tomorrow. Anticipate increased metabolic demands. Will check a Prealbumin and encourage nutritional supplementation with protein to help the healing process. Grafts/Implants Used: AmnioFill Placental Connective Tissue Powder. - Complications None. - Admit VTE Documentation VTE Present on Admission: No VTE Mechan Device Prophylaxis: SCD's VTE Pharm Prophylaxis ordered?: Yes Code Visit Surgery Charges CPT - 43893 ICD-10 - L89.154, M86.9, A49.02, L92.9
[2019-03-17] MEDS: Lactated Ringers 1,000 ML 60 ML IV (12:43)
--- NOTE | 2019-03-17 14:41 | CASEMGMT ---
Social Work Note RN PATRICIA Schaefer updated this worker that Dr. Hansen called and requested pt go to TCU at discharge as pt will be on IV antibiotics and wound vac at discharge. LORNA reviewed pt's chart and pt has Medicare. Pt is able to go to SNF . LORNA placed a call to referral line and provided referral. Sally states she will have a bed for pt on on TCU. LORNA will speak with pt tomorrow as pt was just admitted to floor today. Plan: TCU Ksenia Ambriz HUMAN RESOURCES FILE CLERK, ENGINEER [employer]
[2019-03-17] MEDS: Pantoprazole Sodium 40 MG Tablet PO (15:07)
[2019-03-17] MEDS: Gabapentin 300 MG Capsule PO ×2 (15:08→22:59)
--- NOTE | 2019-03-17 15:58 | PCM.RX.CS ---
Consult Pharmacy has been consulted to manage selected antiobiotic: Vancomycin Type of Consult: New start Suspected Infection: Osteomyelitis Prior Doses of Antibiotics Received/Current Regimen: Received 1gm iv preop Labs: Sodium 143 mmol/L (136-145) 03/17/19 07:48 Potassium 4.3 mmol/L (3.5-5.1) 03/17/19 07:48 Chloride 112 mmol/L (98-107) H 03/17/19 07:48 Carbon Dioxide 24.0 mmol/L (21.0-32.0) 03/17/19 07:48 Anion Gap 7 (5-15) 03/17/19 07:48 BUN 23 mg/dL (7-18) H 03/17/19 07:48 Creatinine 0.85 mg/dL (0.55-1.02) 03/17/19 07:48 Est GFR (MDRD) Af Amer 86 mL/min (>60) 03/17/19 07:48 Est GFR (MDRD) Non-Af 71 mL/min (>60) 03/17/19 07:48 BUN/Creatinine Ratio 27.2 RATIO (10-20) H 03/17/19 07:48 Glucose 90 mg/dL (74-106) 03/17/19 07:48 Weight used for dosin.9 kg Estimated Creatinine Clearance: ~56ml/min Goal Trough: 15-20 mcg/mL Pharmacy Plan for Drug Dosing: Post op orders for vancomycin dosing with initial load dosing. Due to already getting 1gm preop, will give another 1gm iv at 1700 and then begin 1gm iv q12h. Trough level ordered for 03.18.19. Pharmacy Service will continue to monitor and adjust dosing as required. Follow-Up Labs: Trough Vancomycin - 03.18.19 @1630 before 1700 dose
--- NOTE | 2019-03-17 16:26 | CON.PCM_ITS ---
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 (2) Osteomyelitis of pelvis Status: Chronic (3) Constipation Status: Chronic (4) Hypergranulation Status: Chronic (5) Hypertension Status: Resolved (6) Acute osteomyelitis of sacrum Status: Chronic (7) Surgical wound present Status: Chronic (8) Secondary pulmonary arterial hypertension Status: Chronic (9) Non-rheumatic tricuspid valve insufficiency Status: Chronic (10) Preop cardiovascular exam Status: Chronic (11) Abnormal electrocardiogram Status: Chronic (12) Essential (primary) hypertension Status: Chronic (13) Colovaginal fistula Status: Chronic (14) Non-healing surgical wound Status: Chronic (15) Pressure ulcer of right heel, stage 3 Status: Chronic (16) Pressure ulcer of left heel, stage 3 Status: Chronic (17) Morbid obesity with BMI of 40.0-44.9, adult Status: Chronic (18) GERD (gastroesophageal reflux disease) Status: Chronic (19) Depression Status: Chronic (20) Hypothyroidism Status: Chronic (21) Pressure ulcer of sacral region, stage 4 Status: Chronic (22) Failure to thrive Status: Chronic (23) Clostridium difficile colitis Status: Resolved (24) Atrial fibrillation with RVR Status: Resolved (25) Neuropathy Status: Chronic Reason for Consult Date of Consultation: 03/17/19 Reason for Consultation: Medical management. History of Present Illness: The patient is a 68 year old F who underwent excision of stage IV sacral pressure ulcer with partial ostectomy for osteomyelitis with Dr. Hansen today. Patient reports she initially developed sacral and bilateral heel pressure ulcers a few years ago after she was found down at home for 3 days. She reports she has been following with wound center and has had multiple debridement with Dr. Hansen since that time. She denies pain currently. She has a past medical history of hypertension, GERD, depression, hypothyroidism, paroxysmal atrial fibrillation and morbid obesity. Past Medical History Past Medical History (Chronic Problems): Chronic Problems (Last Reviewed 05/16/18 @ 14:58 by Raúl Villareal DO) MRSA (methicillin resistant Staphylococcus aureus) infection (Chronic) Osteomyelitis of pelvis (Chronic) Constipation (Chronic) Hypergranulation (Chronic) Acute osteomyelitis of sacrum (Chronic) Surgical wound present (Chronic) Secondary pulmonary arterial hypertension (Chronic) Non-rheumatic tricuspid valve insufficiency (Chronic) Preop cardiovascular exam (Chronic) Abnormal electrocardiogram (Chronic) Essential (primary) hypertension (Chronic) Colovaginal fistula (Chronic) Non-healing surgical wound (Chronic) Pressure ulcer of right heel, stage 3 (Chronic) Pressure ulcer of left heel, stage 3 (Chronic) Morbid obesity with BMI of 40.0-44.9, adult (Chronic) GERD (gastroesophageal reflux disease) (Chronic) Depression (Chronic) Hypothyroidism (Chronic) Pressure ulcer of sacral region, stage 4 (Chronic) Failure to thrive (Chronic) Neuropathy (Chronic) Medical History: Medical History (Last Reviewed 05/16/18 @ 14:58 by Raúl Villareal DO) Secondary pulmonary arterial hypertension (Chronic) I27.21 Non-rheumatic tricuspid valve insufficiency (Chronic) I36.1 Essential (primary) hypertension (Chronic) I10 Morbid obesity with BMI of 40.0-44.9, adult (Chronic) E66.01, Z68.41 GERD (gastroesophageal reflux disease) (Chronic) K21.9 Hypothyroidism (Chronic) E03.9 Atrial fibrillation with RVR (Resolved) I48.91 Abnormal Pap smear of cervix R87.619 Anemia D64.9 Back pain M54.9 GERD (gastroesophageal reflux disease) K21.9 Heart murmur R01.1 Sacral wound S31.000A Thyroid disorder E07.9 anixety and depression Hypertension I10 Allergies bee venom protein (honey bee) Allergy (Verified 03/12/19 08:46) Angioedema metaxalone [From Skelaxin] Allergy (Verified 03/12/19 08:46) Swelling Home Medications: Ambulatory Orders Medication Instructions Recorded Levothyroxine [Synthroid] 25 mcg PO DAILY 03/02/17 cholecalciferol (vitamin D3) 50,000 unit PO QMONTH 08/02/17 50,000 unit capsule Ascorbic Acid 500 mg PO DAILY 08/21/17 Potassium Chloride [K-Dur] 40 meq PO DAILY 12/26/17 Omeprazole 40 mg PO 1400 04/11/18 omega-3 fatty acids 1,000 mg 1,000 mg PO DAILY 04/19/18 capsule Linacolotide [Linzess] 145 mcg PO DAILY PRN capsule 07/08/18 Gabapentin [Neurontin] 300 mg PO TID 09/02/18 Iron Polysaccharide Complex 150 mg PO DAILYCM #30 capsule 09/12/18 [Ferrex 150] Acetaminophen [Tylenol] 1,000 mg PO Q6H 03/12/19 Aspirin [Aspir 81] 81 mg PO DAILY 03/12/19 Chromium/Herbal Complex No.238 1 ea PO DAILY 03/12/19 [Green Tea Caplet] Diclofenac [Voltaren] 50 mg PO BIDCM 03/12/19 Docusate Sodium [Colace] 200 mg PO DAILY 03/12/19 Lactobacillus Acidophilus/Fos 1 ea PO DAILY 03/12/19 [Acidophilus Probiotic Tablet] Magnesium Oxide [Magnesium] 500 mg PO DAILY 03/12/19 Turmeric Root Extract [Turmeric] 500 mg PO DAILY 03/12/19 Surgical History: Surgical History (Last Reviewed 03/17/19 @ 16:52 by VALERIE Meade) H/O dilation and curettage Z98.890 History of LAVH Z98.890, Z90.710 S/P endometrial ablation Z98.890 S/P hysterectomy Z90.710 uterine ablation History of partial colectomy Z90.49 Surgical History: - - Debridement/excision of sacral pressure ulcer X3. Colovaginal fistula surgical repair. 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 Paternal Family History: Family History (Last Reviewed 03/17/19 @ 16:54 by VALERIE Meade) Father Myocardial infarction Cancer Brother Heart disease Mother COPD (chronic obstructive pulmonary disease) History Items: Unknown, - - Patient's father at age of 79 with history of lung cancer and myocardial infarction. Review of Systems Constitutional: Denies: Chills, Fever, Weight Change HEENT: Denies: Head Aches, Sinus Congestion, Sinus Drainage Cardiovascular: Denies: Chest Pain, Palpitations Respiratory: Denies: Cough, Shortness of breath at rest, Sputum production Gastrointestinal: Denies: Abdominal Pain, Nausea, Vomiting Genitourinary: Denies: Dysuria Musculoskeletal: Denies: Joint Pain, Joint Tenderness Skin: Reports: - - Sacral decubitus ulcer status post debridement, postop dressing intact. Healing bilateral heel ulcers. Neurological: Denies: Numbness, Tingling, Focal weakness Psychiatric: Denies: Anxiety, Depression, Homicidal Ideations, Suicidal Ideations Hematologic/ Lymphatic: Denies: Easy Bruising, Easy Bleeding - Physical Exam General: Alert, Oriented x3, Cooperative HEENT: Atraumatic, PERRLA, EOMI, Normocephalic Neck: Supple, No JVD, Negative Carotid Bruits Lungs: Clear to auscultation, Normal air movement Cardiovascular: Regular rate, Regular Rhythm, Normal S1, Normal S2, No murmurs Abdomen: Bowel Sounds Present, Soft, Non Tender, Non-Distended, Obese Extremities: No clubbing, No cyanosis, No edema, Capillary Refill Less than 3 Seconds Skin: - - Sacral postoperative dressing intact. Musculoskeletal: No Tenderness to Palpation of Joints or Extremities Neurological: Cranial nerves II-XII grossly intact, Neuro grossly intact Psych/Mental Status: Normal Affect, Appropriate Vital Signs Temp Pulse Resp BP Pulse Ox 98.1 F 69 16 137/78 H 95 03/17/19 14:34 03/17/19 14:34 03/17/19 14:34 03/17/19 14:34 03/17/19 14:34 Oxygen Flow Rate (L/min) 4 Oxygen Delivery Method Room Air Weight: 213 lb 10.047 oz Body Mass Index (BMI) 36.6 Intake and Output for Last 24 Hours 03/15/19 03/16/19 03/17/19 23:59 23:59 23:59 Intake Total 1300 / 1300 Output Total 1100 / 1100 Balance 200 / 200 Laboratory Tests Past 24 Hrs 03/17/19 03/17/19 03/17/19 07:48 07:48 07:48 WBC 11.7 H RBC 5.32 Hgb 13.6 Hct 46.0 MCV 86.5 MCH 25.6 L MCHC 29.6 L RDW Std Deviation 51.9 H RDW Coeff of Yevgeniy 16.4 H Plt Count 466 H MPV 9.2 PT 12.9 INR 1.0 APTT 37.0 H Sodium 143 Potassium 4.3 Chloride 112 H Carbon Dioxide 24.0 Anion Gap 7 BUN 23 H Creatinine 0.85 Estim Creat Clear Calc 55.46 Est GFR (MDRD) Af Amer 86 Est GFR (MDRD) Non-Af 71 BUN/Creatinine Ratio 27.2 H Glucose 90 Calcium 9.1 TSH 2.21 Assessment/Plan All Active Problems (Last Reviewed 05/16/18 @ 14:58 by Raúl Villareal DO) Atrial fibrillation with RVR (Resolved) Clostridium difficile colitis (Resolved) Clostridium difficile infection (Resolved) Hypertension (Resolved) Rhabdomyolysis (Resolved) 1. Sacral decubitus ulcer stage IV status post debridement with suspected sacral osteomyelitis-wound debridement 03/17/[address] Hansen. ID consulted. Continue IV vancomycin and IV Levaquin. Surgical culture and pathology pending. Wound VAC ordered. Wound RN consult. PT/OT. 2. Hypothyroidism-continue Synthroid regimen. 3. Hypertension-no longer on medication regimen. Continue to monitor. 4. History of atrial fibrillation-not on rate control or anticoagulation. 5. GERD/IBS-continue PPI, Linzess regimen. DVT prophylaxis- lovenox sc This patient was seen by VALERIE Meade under the supervision of Dr. Servin. <Yamilet Servin - Last Filed: 03/17/19 18:16> Reason for Consult History of Present Illness: The patient is a 68 year old F [] Past Medical History Medical History: Medical History (Last Reviewed 05/16/18 @ 14:58 by Raúl Villareal DO) Secondary pulmonary arterial hypertension (Chronic) I27.21 Non-rheumatic tricuspid valve insufficiency (Chronic) I36.1 Essential (primary) hypertension (Chronic) I10 Morbid obesity with BMI of 40.0-44.9, adult (Chronic) E66.01, Z68.41 GERD (gastroesophageal reflux disease) (Chronic) K21.9 Hypothyroidism (Chronic) E03.9 Atrial fibrillation with RVR (Resolved) I48.91 Abnormal Pap smear of cervix R87.619 Anemia D64.9 Back pain M54.9 GERD (gastroesophageal reflux disease) K21.9 Heart murmur R01.1 Sacral wound S31.000A Thyroid disorder E07.9 anixety and depression Hypertension I10 Allergies bee venom protein (honey bee) Allergy (Verified 03/12/19 08:46) Angioedema metaxalone [From Skelaxin] Allergy (Verified 03/12/19 08:46) Swelling Surgical History: Surgical History (Last Reviewed 03/17/19 @ 16:52 by VALERIE Meade) H/O dilation and curettage Z98.890 History of LAVH Z98.890, Z90.710 S/P endometrial ablation Z98.890 S/P hysterectomy Z90.710 uterine ablation History of partial colectomy Z90.49 - *Family History Maternal Family History: Family History (Last Reviewed 03/17/19 @ 16:54 by VALERIE Meade) Father Myocardial infarction Cancer Brother Heart disease Mother COPD (chronic obstructive pulmonary disease) Paternal Family History: Family History (Last Reviewed 03/17/19 @ 16:54 by VALERIE Meade) Father Myocardial infarction Cancer Brother Heart disease Mother COPD (chronic obstructive pulmonary disease) - Physical Exam Vital Signs Temp Pulse Resp BP Pulse Ox 98.5 F 83 18 109/62 95 03/17/19 16:34 03/17/19 16:34 03/17/19 16:34 03/17/19 16:34 03/17/19 16:34 Oxygen Flow Rate (L/min) 4 Oxygen Delivery Method Room Air Weight: 96.9 kg Body Mass Index (BMI) 36.6 Intake and Output for Last 24 Hours 03/15/19 03/16/19 03/17/19 23:59 23:59 23:59 Intake Total 1300 / 1300 Output Total 1100 / 1100 Balance 200 / 200 Laboratory Tests Past 24 Hrs 03/17/19 03/17/19 03/17/19 07:48 07:48 07:48 WBC 11.7 H RBC 5.32 Hgb 13.6 Hct 46.0 MCV 86.5 MCH 25.6 L MCHC 29.6 L RDW Std Deviation 51.9 H RDW Coeff of Yevgeniy 16.4 H Plt Count 466 H MPV 9.2 PT 12.9 INR 1.0 APTT 37.0 H Sodium 143 Potassium 4.3 Chloride 112 H Carbon Dioxide 24.0 Anion Gap 7 BUN 23 H Creatinine 0.85 Estim Creat Clear Calc 55.46 Est GFR (MDRD) Af Amer 86 Est GFR (MDRD) Non-Af 71 BUN/Creatinine Ratio 27.2 H Glucose 90 Calcium 9.1 TSH 2.21 Assessment/Plan This patient was seen in conjunction with Rocío Dowd. I have independently interviewed and examined the patient and reviewed pertinent historical, laboratory, and other data. I have reviewed her note and concur with her documentation CC: Consult for postop medical management HPI: 58-year-old female with past medical history of hypertension, hypothyroidism, paroxysmal atrial fibrillation, history of recurrent osteomyelitis of the sacral and bilateral heel pressure ulcers. Patient states that this started 3 years ago when she had a UTI and was weak and was found down for 3 days. She subsequently had episodes that have never healed. Patient has had wound debridement and excision of sacral pressure ulcers. She subsequently underwent wound debridement of hyper granulation tissue in September 2018. Patient has had multiple antibiotics, recently completed 1 month of doxycycline. She walks with a Rollator at baseline. At the time of being seen, she denied any pain, fever or chills. PMHX: History of hypertension, hypothyroidism, anxiety/depression, paroxysmal atrial fibrillation PSHx: Status post hysterectomy, uterine ablation, excision of sacral pressure ulcer, excision of granulation tissue with partial ostectomy x2 FHX: COPD, lung CA, SHX: Denies any smoking or drinking alcohol use of illicit drug Physical Exam: Vitals: Temperature 97.5 F, heart rate 71, blood pressure 102/81, respiratory to 16 SPO2 is 98% on room air Gen: Looks in some discomfort, lying on the side not pale, not jaundiced, obese CVS:HS I +II, regular, no murmurs RESP: Clinically clear to auscultation GI: BS present and normal, soft, nontender, no palpable organs, wound dressing in the sacral region clean, intact EXT:No edema Labs: WBC count is 11.7, hemoglobin 13.6, platelet count 466, INR is 1.2, BMP is unremarkable ASSESSMENT: 1. Postop day #0, status post excision sacral pressure sore, stage IV with partial ostectomy for osteomyelitis 2. History of MRSA/Enterobacter sacral osteomyelitis 3. Hypertension 4. Hypothyroidism 5. GERD 6. Asthma atrial fibrillation Plan: Follow-up on wound cultures Continue vancomycin and Levaquin per ID recommendations Wound care per Plastic surgery and wound RN Will have to be cautious with the use of diclofenac with Lovenox for DVT pr ophylaxis as she is at risk of bleeding Follow- up on repeat blood work in a.m. Thank you for the consult, will continue to follow-up with you Code Visit Inpatient E&M: 47353 Subs Hosp L2
--- NOTE | 2019-03-17 16:33 | PCM.HP.ID ---
Problem List (1) Osteomyelitis of pelvis Status: Chronic Reason for Consult: osteo Consulted by: Dr. Hansen History of Present Illness: The patient is a 68 year old F with chronic sacral ulcer, complicated by recurrent osteo, presented for scheduled I&D of sacrum with Dr. Hansen. Taken to OR today 03/17, normally has wound vac in place. Treated for uti with levaquin in January, then put on 4 weeks of doxy for MRSA from sacral wound. Had been feeling ok, ulcer stable, no fever, no n/v/d. Some headache. Full ROS performed and neg except as noted above. - Medical History Past Medical History (Chronic Problems): Chronic Problems (Last Reviewed 05/16/18 @ 14:58 by Raúl Villareal DO) MRSA (methicillin resistant Staphylococcus aureus) infection (Chronic) Osteomyelitis of pelvis (Chronic) Constipation (Chronic) Hypergranulation (Chronic) Hypertension (Chronic) Acute osteomyelitis of sacrum (Chronic) Surgical wound present (Chronic) Secondary pulmonary arterial hypertension (Chronic) Non-rheumatic tricuspid valve insufficiency (Chronic) Abnormal electrocardiogram (Chronic) Essential (primary) hypertension (Chronic) Non-healing surgical wound (Chronic) Pressure ulcer of right heel, stage 3 (Chronic) Pressure ulcer of left heel, stage 3 (Chronic) Morbid obesity with BMI of 40.0-44.9, adult (Chronic) GERD (gastroesophageal reflux disease) (Chronic) Depression (Chronic) Hypothyroidism (Chronic) Pressure ulcer of sacral region, stage 4 (Chronic) Neuropathy (Chronic) Allergies/Adverse Reactions: Allergies bee venom protein (honey bee) Allergy (Verified 03/12/19 08:46) Angioedema metaxalone [From Skelaxin] Allergy (Verified 03/12/19 08:46) Swelling Home Medications: Ambulatory Orders Medication Instructions Recorded Levothyroxine [Synthroid] 25 mcg PO DAILY 03/02/17 cholecalciferol (vitamin D3) 50,000 unit PO QMONTH 08/02/17 50,000 unit capsule Ascorbic Acid 500 mg PO DAILY 08/21/17 Potassium Chloride [K-Dur] 40 meq PO DAILY 12/26/17 Omeprazole 40 mg PO 1400 04/11/18 omega-3 fatty acids 1,000 mg 1,000 mg PO DAILY 04/19/18 capsule Linacolotide [Linzess] 145 mcg PO DAILY PRN capsule 07/08/18 Gabapentin [Neurontin] 300 mg PO TID 09/02/18 Iron Polysaccharide Complex 150 mg PO DAILYCM #30 capsule 09/12/18 [Ferrex 150] Acetaminophen [Tylenol] 1,000 mg PO Q6H 03/12/19 Aspirin [Aspir 81] 81 mg PO DAILY 03/12/19 Chromium/Herbal Complex No.238 1 ea PO DAILY 03/12/19 [Green Tea Caplet] Diclofenac [Voltaren] 50 mg PO BIDCM 03/12/19 Docusate Sodium [Colace] 200 mg PO DAILY 03/12/19 Lactobacillus Acidophilus/Fos 1 ea PO DAILY 03/12/19 [Acidophilus Probiotic Tablet] Magnesium Oxide [Magnesium] 500 mg PO DAILY 03/12/19 Turmeric Root Extract [Turmeric] 500 mg PO DAILY 03/12/19 - Social History SMOKING STATUS:: Former smoker Vital Signs Temp Pulse Resp BP Pulse Ox 98.1 F 69 16 137/78 H 95 03/17/19 14:34 03/17/19 14:34 03/17/19 14:34 03/17/19 14:34 03/17/19 14:34 Oxygen Flow Rate (L/min) 4 Oxygen Delivery Method Room Air Weight: 96.9 kg Body Mass Index (BMI) 36.6 Laboratory Tests Past 24 Hrs 03/17/19 03/17/19 03/17/19 07:48 07:48 07:48 WBC 11.7 H RBC 5.32 Hgb 13.6 Hct 46.0 MCV 86.5 MCH 25.6 L MCHC 29.6 L RDW Std Deviation 51.9 H RDW Coeff of Yevgeniy 16.4 H Plt Count 466 H MPV 9.2 PT 12.9 INR 1.0 APTT 37.0 H Sodium 143 Potassium 4.3 Chloride 112 H Carbon Dioxide 24.0 Anion Gap 7 BUN 23 H Creatinine 0.85 Estim Creat Clear Calc 55.46 Est GFR (MDRD) Af Amer 86 Est GFR (MDRD) Non-Af 71 BUN/Creatinine Ratio 27.2 H Glucose 90 Calcium 9.1 TSH 2.21 - Other Studies Radiology: [] reviewed Other Studies: [] Route of nutrition/ use of supplements: [] Nutritional Intake: [] IV Site: [] Grewal Catheter: [] - Physical Exam General: Alert, Oriented x3, Cooperative, No apparent distress HEENT: Atraumatic, PERRLA, EOMI Neck: Supple, No Nodes Lungs: Clear to auscultation, Normal air movement Cardiovascular: Regular rate, Regular Rhythm, Murmur Abdomen: Soft, Non Tender, Non-Distended Extremities: Edema - mild Skin: Ulcer/ Wound - surg dressing in place IV Site: Peripheral, without redness Neurological: Cranial nerves II-XII grossly intact - Assessment/Plan Antibiotics: [] Assessment/Plan: [] suspected sacral osteo - surg cx and path pending. On vanc/levaquin. Now s/p OR 03/17/[address] Hansen. Had been on doxy for several weeks prior to this surgery. Thank you, will follow.
[2019-03-17] MEDS: Acetaminophen 500 MG Tablet 1000 MG PO ×2 (17:15→22:59)
[2019-03-17] MEDS: 0.9% NaCl Peripheral Flush Adult/Peds IV (22:59)
[2019-03-17] MEDS: Docusate Sodium 100 MG Capsule PO (22:59)
[2019-03-18 05:11] VITALS: BP 95/54; PULSE 85; RESP 18; TEMP 36.8; O2SAT 95
[2019-03-18] MEDS: Lactated Ringers 1,000 ML 60 ML IV ×2 (05:13→22:49)
[2019-03-18] MEDS: Vancomycin IV 1,000 MG/200 ML BAG 200 MG IV ×2 (05:14→17:21)
[2019-03-18] MEDS: Acetaminophen 500 MG Tablet 1000 MG PO ×3 (05:32→17:24)
[2019-03-18] MEDS: Levothyroxine 25 MCG TABLET PO (05:32)
[2019-03-18] MEDS: Gabapentin 300 MG Capsule PO ×3 (05:33→22:43)
[2019-03-18] MEDS: Enoxaparin 40 MG/0.4 ML Syringe SC (05:33)
[2019-03-18 06:17] LABS: Hematocrit 31.6 % (37-47); Hemoglobin 9.5 g/dL (12.0-15.0); Mean Corp Hgb Conc 30.1 g/dL (32-36); Mean Corpuscular Hgb 25.9 pg (27.0-32.0); Mean Corpuscular Volume 86.1 fL (81-99); Mean Platelet Vol. 9.4 fl (6.2-12.0); Platelet Count 337 K/mm3 (150-450); RBC Distribution Width CV 16.2 % (11.6-14.6); RBC Distribution Width SD 51.5 fl (35.1-43.9); Red Blood Count 3.67 M/mm3 (4.2-5.4); White Blood Count 14.1 K/mm3 (4.4-11.0)
[2019-03-18 06:32] LABS: Erythrocyte Sedimentation Rate 18 mm/hr (0-30)
[2019-03-18 06:48] LABS: ALB/GLOB Ratio 0.9 RATIO (0.9-2.4); AST(SGOT) 18 U/L (15-37); Alanine Aminotransfer ALT/SGPT 19 U/L (13-56); Albumin, Serum 2.7 g/dL (3.2-5.0); Alkaline Phosphatase 58 U/L (45-117); Anion Gap 6 (5-15); BUN 22 mg/dL (7-18); BUN/Creat Ratio 30.2 RATIO (10-20); Calcium,Total 8.5 mg/dL (8.5-10.1); Chloride 106 mmol/L (98-107); Creatinine, Serum 0.73 mg/dL (0.55-1.02); EST Glomerular Filtration Rate 85 mL/min (>60); Est Glom Filt Rate - Afr Amer 102 mL/min (>60); Estimated Creatinine Clearance 47.14 ml/min; Glucose 106 mg/dL (74-106); Potassium 4.1 mmol/L (3.5-5.1); Prealbumin 20.7 mg/dL (20.0-40.0); Protein, Total 5.7 g/dL (6.4-8.2); Sodium Level 141 mmol/L (136-145)
[2019-03-18 08:15] VITALS: BP 94/53; PULSE 77; RESP 16; TEMP 37; O2SAT 93
[2019-03-18] MEDS: 0.9% NaCl Peripheral Flush Adult/Peds IV (09:38)
[2019-03-18] MEDS: levoFLOXacin IV 500 MG/100 ML BAG 100 MG IV (09:39)
[2019-03-18] MEDS: Iron Polysaccharide Complex 150 MG CAPSULE PO (09:41)
[2019-03-18] MEDS: Ascorbic Acid 500 MG Tablet PO (09:41)
[2019-03-18] MEDS: Aspirin E.C. 81 MG Tablet PO (09:42)
[2019-03-18] MEDS: Magnesium Oxide 400 MG Tablet PO (09:42)
[2019-03-18] MEDS: Docusate Sodium 100 MG Capsule PO ×2 (09:43→22:43)
[2019-03-18] MEDS: Omega-3 Acid Ethyl Esters 1 GM Capsule 1000 GM PO (09:44)
[2019-03-18] MEDS: 0.9% NaCl PICC Flush IV ×2 (09:51→22:45)
--- NOTE | 2019-03-18 10:03 | PCM.PN.ID ---
Subjective: Feeling well, pain controlled, no fever, no n/v/d - Physical Exam General: Alert, Cooperative, No apparent distress Lungs: Clear to auscultation, Normal air movement Cardiovascular: Regular rate, Regular Rhythm Abdomen: Soft, Non Tender, Non-Distended Skin: No rashes Vital Signs Temp Pulse Resp BP Pulse Ox 98.2 F 85 18 95/54 L 95 03/18/19 05:11 03/18/19 05:11 03/18/19 05:11 03/18/19 05:11 03/18/19 05:11 Oxygen Flow Rate (L/min) 4 Oxygen Delivery Method Room Air Weight: 96.9 kg Body Mass Index (BMI) 36.6 Intake and Output for Last 24 Hours 03/16/19 03/17/19 03/18/19 23:59 23:59 23:59 Intake Total 0.00 / 2040.00 1397 / 1397 Output Total 1999 / 1999 400 / 400 Balance 40.00 / 40.00 997 / 997 Laboratory Tests Past 24 Hrs 03/18/19 03/18/19 05:50 05:50 WBC 14.1 H RBC 3.67 L Hgb 9.5 L Hct 31.6 L MCV 86.1 MCH 25.9 L MCHC 30.1 L RDW Std Deviation 51.5 H RDW Coeff of Yevgeniy 16.2 H Plt Count 337 MPV 9.4 ESR 18 Sodium 141 Potassium 4.1 Chloride 106 Carbon Dioxide 29.0 Anion Gap 6 BUN 22 H Creatinine 0.73 Estim Creat Clear Calc 47.14 Est GFR (MDRD) Af Amer 102 Est GFR (MDRD) Non-Af 85 BUN/Creatinine Ratio 30.2 H Glucose 106 Calcium 8.5 Total Bilirubin 0.40 AST 18 ALT 19 Alkaline Phosphatase 58 C-React Prot Ext Range 57.80 H Total Protein 5.7 L Albumin 2.7 L Globulin 3.0 Albumin/Globulin Ratio 0.9 Prealbumin 20.7 Medical Necessity - Tobacco Use Smoking Status: Former smoker Tobacco Use: Non-smoker Route of nutrition/ use of supplements: [] Nutritional Intake: [] IV Site: [] Grewal Catheter: [] - Assessment/Plan Antibiotics: [] Assessment/Plan: [] suspected sacral osteo - surg cx pending. On vanc/levaquin. Now s/p OR 03/17/[address] Hansen. Had been on doxy for several weeks prior to this surgery. If she goes home today, would have her leave on 2 weeks more of po doxy 100mg bid and I will follow cxs and adjust as needed. Will follow
--- NOTE | 2019-03-18 10:11 | CASEMGMT ---
Social Work Note SW met with pt to confirm discharge plans. Pt is alert and orientated x3. SW introduced self and role at [facility]. SW informed pt that Dr. Hansen is recommending pt go to TCU at discharge due to pt needing wound vac and IV antibiotics. Pt started crying. SW asked pt what is making her upset. Pt states being told I have to stay here. SW informed pt that she has the right to decide if she wants to go to SNF or home and that this worker was just informing her what physician was recommending. SW explained that TCU is very short term and that Dr. Hansen will be able to visit pt while she is at TCU. Pt states understanding, is agreeable to TCU. SW informed pt that [facility] will have a bed for pt . Plan: TCU Ksenia Ambriz POLICY CANCELLATION CLERK, RX SPECIALIST
--- NOTE | 2019-03-18 10:45 | NURSING ---
wound photo: sacrum
--- NOTE | 2019-03-18 11:17 | PCM.PN.SRG ---
- Physical Exam General: Alert, Oriented x3, Cooperative HEENT: Atraumatic Oral: Moist Mucosa Lungs: Normal air movement Cardiovascular: Regular rate Extremities: No edema, Capillary Refill Less than 3 Seconds Skin: Ulcer/ Wound - Sacral pressure sore has some bleeding. Blood clot present. Will hold off on wound VAC today. Musculoskeletal: No Tenderness to Palpation of Joints or Extremities Neurological: Neuro grossly intact Psych/Mental Status: Normal Affect, Appropriate Vital Signs Temp Pulse Resp BP Pulse Ox 98.6 F 77 16 94/53 L 93 03/18/19 08:15 03/18/19 08:15 03/18/19 08:15 03/18/19 08:15 03/18/19 08:15 Oxygen Flow Rate (L/min) 4 Oxygen Delivery Method Room Air Weight: 213 lb 10.047 oz Body Mass Index (BMI) 36.6 Intake and Output for Last 24 Hours 03/16/19 03/17/19 03/18/19 23:59 23:59 23:59 Intake Total 2039.00 / 2040.00 1497 / 1497 Output Total 1999 400 / 400 Balance 40.00 / 40.00 1097 / 1097 Microbiology Past 72 Hours 03/17/19 12:34 Wound Culture - Preliminary Bone - Other No growth-Final to follow Laboratory Tests Past 24 Hrs 03/18/19 03/18/19 05:50 05:50 WBC 14.1 H RBC 3.67 L Hgb 9.5 L Hct 31.6 L MCV 86.1 MCH 25.9 L MCHC 30.1 L RDW Std Deviation 51.5 H RDW Coeff of Yevgeniy 16.2 H Plt Count 337 MPV 9.4 ESR 18 Sodium 141 Potassium 4.1 Chloride 106 Carbon Dioxide 29.0 Anion Gap 6 BUN 22 H Creatinine 0.73 Estim Creat Clear Calc 47.14 Est GFR (MDRD) Af Amer 102 Est GFR (MDRD) Non-Af 85 BUN/Creatinine Ratio 30.2 H Glucose 106 Calcium 8.5 Total Bilirubin 0.40 AST 18 ALT 19 Alkaline Phosphatase 58 C-React Prot Ext Range 57.80 H Total Protein 5.7 L Albumin 2.7 L Globulin 3.0 Albumin/Globulin Ratio 0.9 Prealbumin 20.7 Medical Necessity - Tobacco Use Smoking Status: Former smoker Tobacco Use: Non-smoker Assessment/Plan All Active Problems (Last Reviewed 05/16/18 @ 14:58 by Raúl Villareal DO) Atrial fibrillation with RVR (Resolved) Clostridium difficile colitis (Resolved) Clostridium difficile infection (Resolved) Hypertension (Resolved) Rhabdomyolysis (Resolved) Postop #1 Patient is resting comfortably. The VAC was not placed today due to bleeding and presence of a blood clot. Nidhi the wound care nurse will place a wet to dry compression dressing. I have discussed the bleeding and blood clot with Dr. Hansen and he will come up and evaluate the ulcer later today when he his out of surgery. Her Hgb 9.5 this morning down from 13.6 yesterday. We will continue to monitor this closely. Her vital signs are stable.
[2019-03-18] MEDS: Silver Nitrate (BKC) TOPICAL (12:40)
[2019-03-18] MEDS: HYDROmorphone 1 MG/ML Syringe IV (12:45)
--- NOTE | 2019-03-18 13:31 | NURSING ---
Dr Hansen in to assess wound. very large clot was removed from the base of the wound. Dr Hansen had used 5 silver nitrate sticks to stop some areas of oozing. once no further areas were noted, wound was repacked with betadine moistened kerlix, followed by dry kerlix, and 3 ABD pads. dressings secured with Medipore tape. will assess wound again in am for possible wound VAC placement.
--- NOTE | 2019-03-18 14:18 | PCM.PN.BLA ---
Progress Note Came up to evaluate the patient's wound. Her vital signs are stable. She is awake and alert. The clot was removed from her wound without difficulty. About 100 ml of clot was evacuated. A couple areas of oozing were easily controlled with silver nitrate chemical cauterization and gauze pressure. Kerlix and Betadine dressing was applied. Will reassess tomorrow for the VAC. Her Hgb today was 9.5. Preop it was 13.6. Will recheck another one tomorrow. She has anemia of chronic disease, acute on chronic. She had about 250 ml of operative blood loss combined with this 100 ml of clot. She also has IV fluid dilution. No more active bleeding seen. Will contiue the Iron supplementation.
--- NOTE | 2019-03-18 14:45 | PCM.PN.HOSP ---
Subjective: Feels great, states that there is a little bit of pain around the debridement site but otherwise she is doing well. Vitals/I&O's: Vital Signs Temp Pulse Resp BP Pulse Ox 98.6 F 77 16 94/53 L 93 03/18/19 08:15 03/18/19 08:15 03/18/19 08:15 03/18/19 08:15 03/18/19 08:15 Oxygen Flow Rate (L/min) 4 Oxygen Delivery Method Room Air Weight: 213 lb 10.047 oz Body Mass Index (BMI) 36.6 Intake and Output for Last 24 Hours 03/16/19 03/17/19 03/18/19 23:59 23:59 23:59 Intake Total 2039.00 / 2040.00 1857 / 1857 Output Total 1999 1300 / 1300 Balance 40.00 / 40.00 557 / 557 General: Alert, Oriented x3, Cooperative, No apparent distress HEENT: Atraumatic, PERRLA, EOMI, Normocephalic Oral: Moist Mucosa Neck: Supple, No JVD Lungs: Clear to auscultation, Normal air movement, No rhonchi, No wheeze, No rales Cardiovascular: Regular rate, Regular Rhythm, Normal S1, Normal S2, Murmur - 2/6 PHOEBE Abdomen: Soft, Non Tender, Non-Distended, No Hepato-splenomegaly Extremities: No edema, Capillary Refill Less than 3 Seconds Skin: No rashes, No breakdown, Incision - Dressing is CDI Neurological: Neuro grossly intact, Sensory exam intact to light touch and pain Microbiology Past 72 Hours 03/17/19 12:34 Bone - Other Gram Stain - Final 03/17/19 12:34 Bone - Other Wound Culture - Preliminary No growth-Final to follow 03/17/19 12:34 Ulcer, Decubitus - Open/Non-Healing Wound Gram Stain - Final Laboratory Results 03/18/19 05:50: WBC 14.1 H, RBC 3.67 L, Hgb 9.5 L, Hct 31.6 L, MCV 86.1, MCH 25.9 L, MCHC 30.1 L, RDW Std Deviation 51.5 H, RDW Coeff of Yevgeniy 16.2 H, Plt Count 337, MPV 9.4, ESR 18 03/18/19 05:50: Sodium 141, Potassium 4.1, Chloride 106, Carbon Dioxide 29.0, Anion Gap 6, BUN 22 H, Creatinine 0.73, Estim Creat Clear Calc 47.14, Est GFR (MDRD) Af Amer 102, Est GFR (MDRD) Non-Af 85, BUN/Creatinine Ratio 30.2 H, Glucose 106, Calcium 8.5, Total Bilirubin 0.40, AST 18, ALT 19, Alkaline Phosphatase 58, C-React Prot Ext Range 57.80 H, Total Protein 5.7 L, Albumin 2.7 L, Globulin 3.0, Albumin/Globulin Ratio 0.9, Prealbumin 20.7 Current Medications Acetaminophen (Tylenol) 1,000 mg PO Q6 [facility] Last Admin: 03/18/19 12:39 Dose: 1,000 mg Documented by: Ascorbic Acid (Vitamin C) 500 mg PO DAILY [facility] Last Admin: 03/18/19 09:41 Dose: 500 mg Documented by: Aspirin (Ecotrin) 81 mg PO DAILY@0800 [facility] Last Admin: 03/18/19 09:42 Dose: 81 mg Documented by: Diazepam (Valium) 5 mg PO 4X/DAY PRN PRN PRN Reason: SPASMS Docusate Sodium (Colace) 100 mg PO BID [facility] Last Admin: 03/18/19 09:43 Dose: 100 mg Documented by: Enoxaparin Sodium (Lovenox) 40 mg SC DAILY@0600 [facility] Last Admin: 03/18/19 05:33 Dose: 40 mg Documented by: Ergocalciferol (Vitamin D) 50,000 unit PO QMONTH [facility] Gabapentin (Neurontin) 300 mg PO TID [facility] Last Admin: 03/18/19 13:26 Dose: 300 mg Documented by: Heparin Sodium (Beef Lung) () 50 units IV UD PRN PRN Reason: HEPARIN FLUSH Hydromorphone HCl (Dilaudid Inj) 1 mg IV Q4H PRN PRN PRN Reason: Pain Score 6-10/10 Last Admin: 03/18/19 12:45 Dose: 1 mg Documented by: Lactated Ringer's () 1,000 mls @ 60 mls/hr IV .[id number] [facility] Last Infusion: 03/18/19 10:39 Dose: 60 mls/hr Documented by: Vancomycin IV Pharmacy to Dose (1 ea/ Sodium Chloride) 500 mls @ 250 mls/hr IV PRN PRN; Protocol PRN Reason: Rx to Dose Levofloxacin (Levaquin Iv) 500 mg in 100 mls @ 100 mls/hr IV Q24 [facility] Last Infusion: 03/18/19 10:39 Dose: Infused Documented by: Vancomycin HCl (Vancomycin) 1,000 mg in 200 mls @ 200 mls/hr IV Q12H [facility] Last Infusion: 03/18/19 06:14 Dose: Infused Documented by: Lactobacillus Acidophilus (Acidophilus) 1 tablet PO DAILY [facility] Last Admin: 03/18/19 09:42 Dose: 1 tablet Documented by: Levothyroxine Sodium (Synthroid) 25 mcg PO DAILY@0600 [facility] Last Admin: 03/18/19 05:32 Dose: 25 mcg Documented by: Linaclotide (Linzess) 145 mcg PO DAILY PRN PRN Reason: Constipation Magnesium Oxide (Mag-Ox 400) 400 mg PO DAILY [facility] Last Admin: 03/18/19 09:42 Dose: 400 mg Documented by: Nutritional Formula (Teofilo - [place] Flavor) 1 packet PO BIDCM [facility] Last Admin: 03/18/19 09:41 Dose: 1 packet Documented by: Nutritional Formula (Lactose Free) (Ensure Enlive) 120 ml PO 4X/DAY [facility] Last Admin: 03/18/19 13:29 Dose: 120 ml Documented by: [id number] Ethyl Esters (Lovaza) 1,000 gm PO DAILY [facility] Last Admin: 03/18/19 09:44 Dose: 1,000 gm Documented by: Ondansetron HCl (Zofran) 4 mg IV Q6H PRN PRN PRN Reason: NAUSEA Oxycodone HCl (Oxyir) 10 mg PO Q4H PRN PRN PRN Reason: Pain Score 6-10/10 Pantoprazole Sodium (Protonix) 40 mg PO 1400 [facility] Last Admin: 03/17/19 15:07 Dose: 40 mg Documented by: Polysaccharide Iron Complex (Ferrex 150) 150 mg PO DAILYCM [facility] Last Admin: 03/18/19 09:41 Dose: 150 mg Documented by: Potassium Chloride (K-Dur) 40 meq PO DAILY [facility] Last Admin: 03/18/19 09:43 Dose: 40 meq Documented by: Promethazine HCl (Phenergan Tablet) 25 mg PO Q4H PRN PRN PRN Reason: NAUSEA/VOMITING Sodium Chloride () 5 - 15 ml IV UD PRN PRN Reason: SALINE FLUSH Last Admin: 03/18/19 09:38 Dose: 10 ml Documented by: Sodium Chloride () 10 - 40 ml IV UD PRN PRN Reason: PICC FLUSH Last Admin: 03/18/19 09:51 Dose: 10 ml Documented by: Medical Necessity - Tobacco Use Smoking Status: Former smoker Tobacco Use: Non-smoker Assessment/Plan All Active Problems (Last Reviewed 05/16/18 @ 14:58 by Raúl Villareal DO) Atrial fibrillation with RVR (Resolved) Clostridium difficile colitis (Resolved) Clostridium difficile infection (Resolved) Hypertension (Resolved) Rhabdomyolysis (Resolved) 1. Sacral decubitus ulcer stage IV status post debridement -Bone biopsy pending for possible osteomyelitis -Pain management per primary -Wound VAC placement is pending -Currently on vancomycin and Levaquin -ID on board 2. Hypothyroidism -Stable -continue with Synthroid 3. HTN/history of A. fib -She is on no medications or anticoagulation -Heart rate was regular, will monitor -Continue with aspirin 4. GERD -Stable -Continue with PPI 5. IBS -Stable -Continue with Linzess DVT: Lovenox Code Visit Inpatient E&M: 40996 Subs Hosp L2
[2019-03-18 15:20] VITALS: BP 104/59; PULSE 79; RESP 16; TEMP 37.1; O2SAT 94
[2019-03-18] MEDS: Pantoprazole Sodium 40 MG Tablet PO (15:24)
[2019-03-18 17:35] LABS: Vancomycin, Trough Level 9.1 ug/mL (5.0-15.0)
[2019-03-18 20:02] VITALS: BP 106/54; PULSE 85; RESP 16; TEMP 37.2; O2SAT 96
[2019-03-19] MEDS: Acetaminophen 500 MG Tablet 1000 MG PO ×4 (00:20→17:55)
[2019-03-19 03:11] VITALS: BP 119/61; PULSE 99; RESP 18; TEMP 37; O2SAT 99
[2019-03-19 05:27] LABS: Absolute Lymphocyte Count 1.41 X10^3/uL (0.83-4.51); Absolute Neutrophil Count 9.2 X10^3/uL (2.0-7.7); Basophil# 0.03 X10^3/uL; Basophil% 0.2 % (0-1); Eosinophil# 0.36 X10^3/uL; Hematocrit 27.8 % (37-47); Hemoglobin 8.5 g/dL (12.0-15.0); Lymphocyte # 1.41 X10^3/ul (4.0); Lymphocyte % 11.6 % (19-41); Mean Corp Hgb Conc 30.6 g/dL (32-36); Mean Corpuscular Hgb 26.2 pg (27.0-32.0); Mean Corpuscular Volume 85.5 fL (81-99); Mean Platelet Vol. 9.1 fl (6.2-12.0); NRBC Flagged by Analyzer 0 % (0-5); Neutrophil # 9.22 X10^3/uL (2.7-7.7); Neutrophil % 75.7 % (47-70); Platelet Count 313 K/mm3 (150-450); RBC Distribution Width SD 50.4 fl (35.1-43.9); Red Blood Count 3.25 M/mm3 (4.2-5.4); White Blood Count 12.2 K/mm3 (4.4-11.0)
[2019-03-19] MEDS: 0.9% NaCl PICC Flush IV (05:32)
[2019-03-19] MEDS: Levothyroxine 25 MCG TABLET PO (05:35)
[2019-03-19] MEDS: Gabapentin 300 MG Capsule PO ×3 (05:35→22:26)
[2019-03-19 05:45] LABS: Anion Gap 5 (5-15); BUN 16 mg/dL (7-18); BUN/Creat Ratio 30.6 RATIO (10-20); Calcium,Total 8.4 mg/dL (8.5-10.1); Chloride 109 mmol/L (98-107); Creatinine, Serum 0.52 mg/dL (0.55-1.02); EST Glomerular Filtration Rate 124 mL/min (>60); Est Glom Filt Rate - Afr Amer 150 mL/min (>60); Estimated Creatinine Clearance 47.14 ml/min; Glucose 102 mg/dL (74-106); Potassium 4.1 mmol/L (3.5-5.1); Sodium Level 144 mmol/L (136-145)
[2019-03-19 11:00] VITALS: BP 98/56; PULSE 96; RESP 18; TEMP 36.7; O2SAT 98
[2019-03-19] MEDS: Omega-3 Acid Ethyl Esters 1 GM Capsule 1000 GM PO (11:08)
[2019-03-19] MEDS: Ascorbic Acid 500 MG Tablet PO (11:08)
[2019-03-19] MEDS: Iron Polysaccharide Complex 150 MG CAPSULE PO (11:09)
[2019-03-19] MEDS: Magnesium Oxide 400 MG Tablet PO (11:09)
[2019-03-19] MEDS: Aspirin E.C. 81 MG Tablet PO (11:09)
[2019-03-19] MEDS: Docusate Sodium 100 MG Capsule PO ×2 (11:10→22:22)
[2019-03-19] MEDS: DAKIN'S SOL HALF STRENGTH (=0.25%) 1 APPLIC TOPICAL (11:11)
[2019-03-19] MEDS: levoFLOXacin IV 500 MG/100 ML BAG 100 MG IV (11:19)
--- NOTE | 2019-03-19 11:26 | PN_ITS ---
Subjective: No issues overnight, wound care evaluate the patient today and felt that there is some bleeding going on in the wound still therefore may need to go back to the OR today for further intervention Vitals/I&O's: Vital Signs Temp Pulse Resp BP Pulse Ox 98.6 F 99 18 119/61 99 03/19/19 03:11 03/19/19 03:11 03/19/19 03:11 03/19/19 03:11 03/19/19 03:11 Oxygen Flow Rate (L/min) 4 Oxygen Delivery Method Room Air Weight: 213 lb 10.047 oz Body Mass Index (BMI) 36.6 Intake and Output for Last 24 Hours 03/17/19 03/18/19 03/19/19 23:59 23:59 23:59 Intake Total 2039.00 / 2039.00 2967 / 3447 1410 / 1410 Output Total 1999 1800 / 2525 1575 / 1575 Balance 40.00 / 40.00 1167 / 922 -165 / -165 General: Alert, Oriented x3, Cooperative, No apparent distress HEENT: Atraumatic, PERRLA, EOMI, Normocephalic Oral: Moist Mucosa Neck: Supple, No JVD Lungs: Clear to auscultation, Normal air movement, No rhonchi, No wheeze, No rales Cardiovascular: Regular rate, Regular Rhythm, Normal S1, Normal S2, Murmur - 2/6 PHOEBE Abdomen: Soft, Non Tender, Non-Distended, No Hepato-splenomegaly Extremities: No edema, Capillary Refill Less than 3 Seconds Skin: No rashes, No breakdown, Incision - Dressing is CDI Neurological: Neuro grossly intact, Sensory exam intact to light touch and pain Microbiology Past 72 Hours 03/17/19 12:34 Bone - Other Gram Stain - Final 03/17/19 12:34 Bone - Other Wound Culture - Preliminary No growth-Final to follow 03/17/19 12:34 Bone - Other Anaerobic Culture - Preliminary No growth in 48 hours. 03/17/19 12:34 Ulcer, Decubitus - Open/Non-Healing Wound Gram Stain - Final 03/17/19 12:34 Ulcer, Decubitus - Open/Non-Healing Wound Anaerobic Culture - Preliminary Checking for anaerobes, further studies to follow. Laboratory Results 03/18/19 16:30: Vancomycin Trough 9.1 03/19/19 05:14: WBC 12.2 H, RBC 3.25 L, Hgb 8.5 L, Hct 27.8 L, MCV 85.5, MCH 26.2 L, MCHC 30.6 L, RDW Std Deviation 50.4 H, RDW Coeff of Yevgeniy 16.0 H, Plt Count 313, MPV 9.1, Immature Gran % (Auto) 0.500, Neut % (Auto) 75.7 H, Lymph % (Auto) 11.6 L, [place] % (Auto) 9.0, Eos % (Auto) 3.0, Baso % (Auto) 0.2, Absolute Neuts (auto) 9.2 H, Absolute Lymphs (auto) 1.41, Nucleated RBC % 0 03/19/19 05:14: Sodium 144, Potassium 4.1, Chloride 109 H, Carbon Dioxide 30.0, Anion Gap 5, BUN 16, Creatinine 0.52 L, Estim Creat Clear Calc 47.14, Est GFR (MDRD) Af Amer 150, Est GFR (MDRD) Non-Af 124, BUN/Creatinine Ratio 30.6 H, Glucose 102, Calcium 8.4 L Current Medications Acetaminophen (Tylenol) 1,000 mg PO Q6 [facility] Last Admin: 03/19/19 05:35 Dose: 1,000 mg Documented by: Ascorbic Acid (Vitamin C) 500 mg PO DAILY [facility] Last Admin: 03/19/19 11:08 Dose: 500 mg Documented by: Aspirin (Ecotrin) 81 mg PO DAILY@0800 [facility] Last Admin: 03/19/19 11:09 Dose: 81 mg Documented by: Diazepam (Valium) 5 mg PO 4X/DAY PRN PRN PRN Reason: SPASMS Docusate Sodium (Colace) 100 mg PO BID [facility] Last Admin: 03/19/19 11:10 Dose: 100 mg Documented by: Enoxaparin Sodium (Lovenox) 40 mg SC DAILY@0600 [facility] Last Admin: 03/19/19 08:07 Dose: Not Given Documented by: Ergocalciferol (Vitamin D) 50,000 unit PO QMONTH [facility] Gabapentin (Neurontin) 300 mg PO TID [facility] Last Admin: 03/19/19 05:35 Dose: 300 mg Documented by: Heparin Sodium (Beef Lung) () 50 units IV UD PRN PRN Reason: HEPARIN FLUSH Hydromorphone HCl (Dilaudid Inj) 1 mg IV Q4H PRN PRN PRN Reason: Pain Score 6-10/10 Last Admin: 03/18/19 12:45 Dose: 1 mg Documented by: Lactated Ringer's () 1,000 mls @ 60 mls/hr IV .[id number] [facility] Last Admin: 03/18/19 22:49 Dose: 60 mls/hr Documented by: Vancomycin IV Pharmacy to Dose (1 ea/ Sodium Chloride) 500 mls @ 250 mls/hr IV PRN PRN; Protocol PRN Reason: Rx to Dose Levofloxacin (Levaquin Iv) 500 mg in 100 mls @ 100 mls/hr IV Q24 [facility] Last Admin: 03/19/19 11:19 Dose: 100 mls/hr Documented by: Vancomycin HCl 1,500 mg/ (Sodium Chloride) 530 mls @ 250 mls/hr IV Q12H [facility] Last Infusion: 03/19/19 07:36 Dose: Infused Documented by: Lactobacillus Acidophilus (Acidophilus) 1 tablet PO DAILY [facility] Last Admin: 03/19/19 11:09 Dose: 1 tablet Documented by: Levothyroxine Sodium (Synthroid) 25 mcg PO DAILY@0600 [facility] Last Admin: 03/19/19 05:35 Dose: 25 mcg Documented by: Linaclotide (Linzess) 145 mcg PO DAILY PRN PRN Reason: Constipation Magnesium Oxide (Mag-Ox 400) 400 mg PO DAILY [facility] Last Admin: 03/19/19 11:09 Dose: 400 mg Documented by: Nutritional Formula (Teofilo - Tyrrell Flavor) 1 packet PO BIDCM [facility] Last Admin: 03/19/19 11:08 Dose: 1 packet Documented by: Nutritional Formula (Lactose Free) (Ensure Enlive) 120 ml PO 4X/DAY [facility] Last Admin: 03/19/19 11:19 Dose: 120 ml Documented by: [id number] Ethyl Esters (Lovaza) 1,000 gm PO DAILY [facility] Last Admin: 03/19/19 11:08 Dose: 1,000 gm Documented by: Ondansetron HCl (Zofran) 4 mg IV Q6H PRN PRN PRN Reason: NAUSEA Oxycodone HCl (Oxyir) 10 mg PO Q4H PRN PRN PRN Reason: Pain Score 6-10/10 Pantoprazole Sodium (Protonix) 40 mg PO 1400 [facility] Last Admin: 03/18/19 15:24 Dose: 40 mg Documented by: Polysaccharide Iron Complex (Ferrex 150) 150 mg PO DAILYCM [facility] Last Admin: 03/19/19 11:09 Dose: 150 mg Documented by: Potassium Chloride (K-Dur) 40 meq PO DAILY [facility] Last Admin: 03/19/19 11:08 Dose: 40 meq Documented by: Promethazine HCl (Phenergan Tablet) 25 mg PO Q4H PRN PRN PRN Reason: NAUSEA/VOMITING Sodium Chloride () 5 - 15 ml IV UD PRN PRN Reason: SALINE FLUSH Last Admin: 03/18/19 09:38 Dose: 10 ml Documented by: Sodium Chloride () 10 - 40 ml IV UD PRN PRN Reason: PICC FLUSH Last Admin: 03/19/19 05:32 Dose: 30 ml Documented by: Sodium Hypochlorite (Dakins Solution 0.25% (1/2 Strength)) 1 applic TOPICAL DAILY [facility]; Protocol Last Admin: 03/19/19 11:11 Dose: 1 applic Documented by: Medical Necessity - Tobacco Use Smoking Status: Former smoker Tobacco Use: Non-smoker Assessment/Plan All Active Problems (Last Reviewed 05/16/18 @ 14:58 by Raúl Villareal DO) Atrial fibrillation with RVR (Resolved) Clostridium difficile colitis (Resolved) Clostridium difficile infection (Resolved) Hypertension (Resolved) Rhabdomyolysis (Resolved) 1. Sacral decubitus ulcer stage IV status post debridement -Bone biopsy pending for possible osteomyelitis -Pain management per primary -Wound VAC placement is pending -Currently on vancomycin and Levaquin -ID on board, cultures are pending -Hemoglobin has dropped which can be postoperative, however since she is having current bleeding await evaluation by primary 2. Hypothyroidism -Stable -continue with Synthroid 3. HTN/history of A. fib -She is on no medications or anticoagulation -Heart rate was regular, will monitor -Continue with aspirin 4. GERD -Stable -Continue with PPI 5. IBS -Stable -Continue with Linzess DVT: Lovenox Code Visit Inpatient E&M: 46150 Subs Hosp L2
--- NOTE | 2019-03-19 11:41 | CASEMGMT ---
Social Work Note Per RN Nidhi, pt is still bleeding and wound vac will be attempted tomorrow for pt. Plan: TCU Ksenia Ambriz DRILLING MANAGER, PIECE WORK CHECKER
--- NOTE | 2019-03-19 14:37 | PN.ID_ITS ---
Subjective: Feeling ok, some bleeding issues. No fever. - Physical Exam General: Alert, Cooperative, No apparent distress Lungs: Clear to auscultation, Normal air movement Cardiovascular: Regular rate, Regular Rhythm Abdomen: Soft, Non Tender, Non-Distended Skin: Ulcer/ Wound - reviewed photo Vital Signs Temp Pulse Resp BP Pulse Ox 98.1 F 96 18 98/56 L 98 03/19/19 11:00 03/19/19 11:00 03/19/19 11:00 03/19/19 11:00 03/19/19 11:00 Oxygen Flow Rate (L/min) 4 Oxygen Delivery Method Room Air Weight: 96.9 kg Body Mass Index (BMI) 36.6 Intake and Output for Last 24 Hours 03/17/19 03/18/19 03/19/19 23:59 23:59 23:59 Intake Total 2039.00 / 2040.00 2967 / 3447 1510 / 1510 Output Total 1999 / 1999 1800 / 2525 1575 / 1575 Balance 40.00 / 40.00 1167 / 922 -65 / -65 Microbiology Past 72 Hours 03/17/19 12:34 Gram Stain - Final Bone - Other Wound Culture - Preliminary No growth-Final to follow Anaerobic Culture - Preliminary No growth in 48 hours. 03/17/19 12:34 Gram Stain - Final Ulcer, Decubitus - Open/Non-Healing Wound Anaerobic Culture - Preliminary Checking for anaerobes, further studies to follow. Laboratory Tests Past 24 Hrs 03/18/19 03/19/19 03/19/19 16:30 05:14 05:14 WBC 12.2 H RBC 3.25 L Hgb 8.5 L Hct 27.8 L MCV 85.5 MCH 26.2 L MCHC 30.6 L RDW Std Deviation 50.4 H RDW Coeff of Yevgeniy 16.0 H Plt Count 313 MPV 9.1 Immature Gran % (Auto) 0.500 Neut % (Auto) 75.7 H Lymph % (Auto) 11.6 L [place] % (Auto) 9.0 Eos % (Auto) 3.0 Baso % (Auto) 0.2 Absolute Neuts (auto) 9.2 H Absolute Lymphs (auto) 1.41 Nucleated RBC % 0 Sodium 144 Potassium 4.1 Chloride 109 H Carbon Dioxide 30.0 Anion Gap 5 BUN 16 Creatinine 0.52 L Estim Creat Clear Calc 47.14 Est GFR (MDRD) Af Amer 150 Est GFR (MDRD) Non-Af 124 BUN/Creatinine Ratio 30.6 H Glucose 102 Calcium 8.4 L Vancomycin Trough 9.1 Medical Necessity - Tobacco Use Smoking Status: Former smoker Tobacco Use: Non-smoker Route of nutrition/ use of supplements: [] Nutritional Intake: [] IV Site: [] Grewal Catheter: [] - Assessment/Plan Antibiotics: [] Assessment/Plan: [] suspected sacral osteo - surg cx neg so far. On vanc/levaquin. Now s/p OR 03/17/[address] Hansen. Had been on doxy for several weeks prior to this surgery. If she goes home today, would have her leave on 2 weeks more of po doxy 100mg bid. Will stop levaquin today. Will follow
[2019-03-19] MEDS: Pantoprazole Sodium 40 MG Tablet PO (14:40)
[2019-03-19 17:00] VITALS: BP 95/61; PULSE 90; RESP 18; TEMP 36.7; O2SAT 98
--- NOTE | 2019-03-19 18:35 | PN.SURG_ITS ---
Subjective: Postop #2 Patient has wound pain. Dressing needed to be reinforced last night. - Physical Exam General: Alert, Oriented x3 HEENT: PERRLA, EOMI Oral: Moist Mucosa Neck: Supple Abdomen: Soft, Non-Distended Skin: Ulcer/ Wound - sacral wound shows no active bleeding this morning. Smaller clot present. No active bleeding seen. Redressed with Dakin's dressing. Hold VAC one more day. Neurological: Cranial nerves II-XII grossly intact Psych/Mental Status: Normal Affect, Appropriate Vital Signs Temp Pulse Resp BP Pulse Ox 98.0 F 90 18 95/61 98 03/19/19 17:00 03/19/19 17:00 03/19/19 17:00 03/19/19 17:00 03/19/19 17:00 Oxygen Flow Rate (L/min) 4 Oxygen Delivery Method Room Air Weight: 213 lb 10.047 oz Body Mass Index (BMI) 36.6 Intake and Output for Last 24 Hours 03/17/19 03/18/19 03/19/19 23:59 23:59 23:59 Intake Total 2039.00 / 2039.00 2967 / 3447 1510 / 1510 Output Total 1999 1800 / 2525 3375 / 3375 Balance 40.00 / 40.00 1167 / 922 -1865 / -1865 Microbiology Past 72 Hours 03/17/19 12:34 Gram Stain - Final Bone - Other Wound Culture - Preliminary No growth-Final to follow Anaerobic Culture - Preliminary No growth in 48 hours. 03/17/19 12:34 Gram Stain - Final Ulcer, Decubitus - Open/Non-Healing Wound Anaerobic Culture - Preliminary Checking for anaerobes, further studies to follow. Laboratory Tests Past 24 Hrs 03/19/19 03/19/19 05:14 05:14 WBC 12.2 H RBC 3.25 L Hgb 8.5 L Hct 27.8 L MCV 85.5 MCH 26.2 L MCHC 30.6 L RDW Std Deviation 50.4 H RDW Coeff of Yevgeniy 16.0 H Plt Count 313 MPV 9.1 Immature Gran % (Auto) 0.500 Neut % (Auto) 75.7 H Lymph % (Auto) 11.6 L [place] % (Auto) 9.0 Eos % (Auto) 3.0 Baso % (Auto) 0.2 Absolute Neuts (auto) 9.2 H Absolute Lymphs (auto) 1.41 Nucleated RBC % 0 Sodium 144 Potassium 4.1 Chloride 109 H Carbon Dioxide 30.0 Anion Gap 5 BUN 16 Creatinine 0.52 L Estim Creat Clear Calc 47.14 Est GFR (MDRD) Af Amer 150 Est GFR (MDRD) Non-Af 124 BUN/Creatinine Ratio 30.6 H Glucose 102 Calcium 8.4 L Medical Necessity - Tobacco Use Smoking Status: Former smoker Tobacco Use: Non-smoker Assessment/Plan All Active Problems (Last Reviewed 05/16/18 @ 14:58 by Raúl Villareal DO) Atrial fibrillation with RVR (Resolved) Clostridium difficile colitis (Resolved) Clostridium difficile infection (Resolved) Hypertension (Resolved) Rhabdomyolysis (Resolved) 1. Sacral pressure sore, Stage IV. 2. Osteomyelitis. 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 5. Severe hypergranulation tissue sacral pressure sore. 6. s/p excision sacral pressure sore, Stage IV, with partial ostectomy for osteomyelitis (71.5 cm2) and placement of AmnioFill placental connective tissue powder, 1000 mg. 7. Anemia of chronic disease, acute on chronic. Smaller clot seen in the wound. About 50 ml. No more active bleeding seen. Will hold off on the VAC for another day. Redressed with Dakin's dressing change. Operative cultures are negative thus far. She is on Vancomycin and Levaquin. Has PICC line for now. May be able to be discharged on po antibiotics depending on the cultures per Infectious Diseases. Prealbumin was 20.7. Encourage nutritional supplementation with protein to help the healing process. Hgb was 8.5 today down from 9.5. She has anemia of chronic disease, acute on chronic. She had 250 ml of operative blood loss plus postop clots from the wound of about 150 ml the last two days. There is also some IV fluid dilution. She will continue Iron supplementation. If she continues to drift down toward 8, will order PRBC which will also help with the healing process. She has been accepted to TCU for continued postop care tentatively for tomorrow.
[2019-03-19] MEDS: 0.9% NaCl Peripheral Flush Adult/Peds IV (22:24)
[2019-03-19 22:25] VITALS: BP 127/56; PULSE 96; RESP 18; TEMP 36.8; O2SAT 95
[2019-03-20] VITALS (8 sets, daily range): BP systolic 103–129; BP diastolic 42–56; PULSE 75–88; RESP 16–18; TEMP 36.7–37; O2SAT 95–98
[2019-03-20] MEDS: Acetaminophen 500 MG Tablet 1000 MG PO ×4 (02:22→20:01)
[2019-03-20] MEDS: Levothyroxine 25 MCG TABLET PO (06:20)
[2019-03-20] MEDS: Gabapentin 300 MG Capsule PO ×3 (06:20→22:09)
[2019-03-20 06:39] LABS: Absolute Lymphocyte Count 2.14 X10^3/uL (0.83-4.51); Absolute Neutrophil Count 7.9 X10^3/uL (2.0-7.7); Basophil# 0.04 X10^3/uL; Basophil% 0.3 % (0-1); Eosinophil# 0.34 X10^3/uL; Eosinophils% 2.9 % (0-5); Hematocrit 27.3 % (37-47); Hemoglobin 8.2 g/dL (12.0-15.0); Lymphocyte # 2.14 X10^3/ul (4.0); Lymphocyte % 18.3 % (19-41); Mean Corpuscular Hgb 25.9 pg (27.0-32.0); Mean Corpuscular Volume 86.1 fL (81-99); Mean Platelet Vol. 9.3 fl (6.2-12.0); Monocyte# 1.19 X10^3/uL; Monocyte% 10.2 % (0-10); NRBC Flagged by Analyzer 0 % (0-5); Neutrophil # 7.89 X10^3/uL (2.7-7.7); Neutrophil % 67.5 % (47-70); Platelet Count 327 K/mm3 (150-450); RBC Distribution Width CV 16.3 % (11.6-14.6); RBC Distribution Width SD 51.9 fl (35.1-43.9); Red Blood Count 3.17 M/mm3 (4.2-5.4); White Blood Count 11.7 K/mm3 (4.4-11.0)
[2019-03-20 06:54] LABS: Anion Gap 8 (5-15); BUN 14 mg/dL (7-18); BUN/Creat Ratio 26.4 RATIO (10-20); Calcium,Total 8.6 mg/dL (8.5-10.1); Chloride 111 mmol/L (98-107); Creatinine, Serum 0.53 mg/dL (0.55-1.02); EST Glomerular Filtration Rate 122 mL/min (>60); Est Glom Filt Rate - Afr Amer 148 mL/min (>60); Estimated Creatinine Clearance 47.14 ml/min; Glucose 99 mg/dL (74-106); Potassium 3.8 mmol/L (3.5-5.1); Sodium Level 144 mmol/L (136-145)
[2019-03-20] MEDS: Aspirin E.C. 81 MG Tablet PO (08:40)
[2019-03-20] MEDS: Iron Polysaccharide Complex 150 MG CAPSULE PO (08:41)
[2019-03-20] MEDS: Ascorbic Acid 500 MG Tablet PO (08:41)
[2019-03-20] MEDS: Docusate Sodium 100 MG Capsule PO ×2 (08:42→22:09)
[2019-03-20] MEDS: Omega-3 Acid Ethyl Esters 1 GM Capsule PO (08:42)
[2019-03-20] MEDS: DAKIN'S SOL HALF STRENGTH (=0.25%) 1 APPLIC TOPICAL ×2 (08:43→22:10)
[2019-03-20] MEDS: Magnesium Oxide 400 MG Tablet PO (08:43)
[2019-03-20] MEDS: Lactated Ringers 1,000 ML 60 ML IV (09:46)
[2019-03-20] MEDS: 0.9% NaCl PICC Flush IV ×4 (09:49→22:15)
--- NOTE | 2019-03-20 10:07 | NURSING ---
RN fertilizer supervisor, REAL ESTATE TRANSACTION MANAGER and this RN entered room to give cath hayden as ordered. REAL ESTATE TRANSACTION MANAGER changed cap,with pt laying on left side. Noted blood return and easily flushed. Pt reported that caps had been changed and that when she lays on her right side is when she notices issues. Pt said, do not send that medication anywhere, I am going to need it because as soon as I turn it will not work. This RN educated pt that on occasion issue is not a clot but rather positioning of body. Pt verbalized understanding but then stated to keep medication close. Pt noticed that this RN was going to hang fluids and states no, wait because I need to turn. This RN notified pt that ATB was to run at 0500 and we need to get it started and then this RN would assist with changing position. This RN had changed all IV tubing and hung new bag of LR and Vancomycin- began running with no issues. Once pt turned IV atb would not infuse, this RN attempted to move arm and flush- still unable. Pt on specialty mattress but states she cannot return to position that PICC was working because her hip needs at least a 30 minute break. This RN notified pt that ATB is not infusing in current position and that we will have to wait until she is ready and to call staff when she wants to return to previous position. Pt verbalized understanding. Antonieta RN notified of same.
--- NOTE | 2019-03-20 10:35 | PN.ID_ITS ---
Subjective: Feeling well, no fever, no n/v/d. - Physical Exam General: Alert, Cooperative, No apparent distress Lungs: Clear to auscultation, Normal air movement Cardiovascular: Regular rate, Regular Rhythm Abdomen: Soft, Non Tender, Non-Distended Skin: Ulcer/ Wound - wound vac in place Vital Signs Temp Pulse Resp BP Pulse Ox 98.0 F 75 18 106/51 L 95 03/20/19 08:35 03/20/19 08:35 03/20/19 08:35 03/20/19 08:35 03/20/19 08:35 Oxygen Flow Rate (L/min) 4 Oxygen Delivery Method Room Air Weight: 96.9 kg Body Mass Index (BMI) 36.6 Intake and Output for Last 24 Hours 03/18/19 03/19/19 03/20/19 23:59 23:59 23:59 Intake Total 2967 / 3447 2640 / 3240 1366 / 1366 Output Total 1800 / 2525 3375 / 4925 3400 / 3400 Balance 1167 / 922 -735 / -1685 -2034 / -2034 Microbiology Past 72 Hours 03/17/19 12:34 Gram Stain - Final Bone - Other Wound Culture - Final No growth aerobically. Anaerobic Culture - Preliminary No growth in 48 hours. 03/17/19 12:34 Gram Stain - Final Ulcer, Decubitus - Open/Non-Healing Wound Wound Culture - Final Corynebacterium striatum Anaerobic Culture - Preliminary Checking for anaerobes, further studies to follow. Laboratory Tests Past 24 Hrs 03/20/19 03/20/19 06:24 06:24 WBC 11.7 H RBC 3.17 L Hgb 8.2 L Hct 27.3 L MCV 86.1 MCH 25.9 L MCHC 30.0 L RDW Std Deviation 51.9 H RDW Coeff of Yevgeniy 16.3 H Plt Count 327 MPV 9.3 Immature Gran % (Auto) 0.800 Neut % (Auto) 67.5 Lymph % (Auto) 18.3 L [place] % (Auto) 10.2 H Eos % (Auto) 2.9 Baso % (Auto) 0.3 Absolute Neuts (auto) 7.9 H Absolute Lymphs (auto) 2.14 Nucleated RBC % 0 Sodium 144 Potassium 3.8 Chloride 111 H Carbon Dioxide 25.0 Anion Gap 8 BUN 14 Creatinine 0.53 L Estim Creat Clear Calc 47.14 Est GFR (MDRD) Af Amer 148 Est GFR (MDRD) Non-Af 122 BUN/Creatinine Ratio 26.4 H Glucose 99 Calcium 8.6 Medical Necessity - Tobacco Use Smoking Status: Former smoker Tobacco Use: Non-smoker Route of nutrition/ use of supplements: [] Nutritional Intake: [] IV Site: [] Grewal Catheter: [] - Assessment/Plan Antibiotics: [] Assessment/Plan: [] suspected sacral osteo - On vanc. Now s/p OR 03/17/[address] Hansen. Bone cx neg, superficial cx with Corynebacteria striatum. Had been on doxy for several weeks prior to this surgery. At discharge, would have her go on 10 days more of po doxy 100mg bid and keflex 500mg tid. 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
[2019-03-20] MEDS: HYDROmorphone 1 MG/ML Syringe IV ×2 (11:18→22:15)
[2019-03-20] MEDS: 0.9% NaCl Peripheral Flush Adult/Peds IV (11:18)
--- NOTE | 2019-03-20 11:39 | CASEMGMT ---
LW/POA forms are scanned into the summary tab of the echart for pt. Pt has Luz Clarke listed as medical POA, and Esvin Durant as the alternate. YUE Mann
--- NOTE | 2019-03-20 11:46 | CASEMGMT ---
Social Work Note Physician is not discharging pt today. SW placed a call to Sally with TCU and updated her that pt is not being discharged to TCU today. Plan: TCU once medically cleared Ksenia Ambriz MSW, PROJECT MANAGEMENT DIRECTOR
--- NOTE | 2019-03-20 11:52 | PCM.PN.SRG ---
Subjective: Postop #3 Patient has wound pain. Removed another small blood clot from the side of the wound, about 50 ml. - Physical Exam General: Alert, Oriented x3 HEENT: PERRLA, EOMI Oral: Moist Mucosa Neck: Supple Abdomen: Soft, Non-Distended Skin: Ulcer/ Wound - sacral wound shows no active bleeding this morning. Small clot present was removed without difficulty. No need for silver nitrate this morning for chemical cauterization. Redresssed with Dakin's dressing. Hold VAC one more day. Neurological: Cranial nerves II-XII grossly intact Psych/Mental Status: Normal Affect, Appropriate Vital Signs Temp Pulse Resp BP Pulse Ox 98.0 F 75 18 106/51 L 95 03/20/19 08:35 03/20/19 08:35 03/20/19 08:35 03/20/19 08:35 03/20/19 08:35 Oxygen Flow Rate (L/min) 4 Oxygen Delivery Method Room Air Weight: 213 lb 10.047 oz Body Mass Index (BMI) 36.6 Intake and Output for Last 24 Hours 03/18/19 03/19/19 03/20/19 23:59 23:59 23:59 Intake Total 2967 / 3447 2640 / 3240 1846 / 1846 Output Total 1800 / 2525 3375 / 4925 4050 / 4050 Balance 1167 / 922 -735 / -1685 -2204 / -2204 Microbiology Past 72 Hours 03/17/19 12:34 Gram Stain - Final Bone - Other Wound Culture - Final No growth aerobically. Anaerobic Culture - Preliminary No growth in 48 hours. 03/17/19 12:34 Gram Stain - Final Ulcer, Decubitus - Open/Non-Healing Wound Wound Culture - Final Corynebacterium striatum Anaerobic Culture - Preliminary Checking for anaerobes, further studies to follow. Laboratory Tests Past 24 Hrs 03/20/19 03/20/19 06:24 06:24 WBC 11.7 H RBC 3.17 L Hgb 8.2 L Hct 27.3 L MCV 86.1 MCH 25.9 L MCHC 30.0 L RDW Std Deviation 51.9 H RDW Coeff of Yevgeniy 16.3 H Plt Count 327 MPV 9.3 Immature Gran % (Auto) 0.800 Neut % (Auto) 67.5 Lymph % (Auto) 18.3 L [place] % (Auto) 10.2 H Eos % (Auto) 2.9 Baso % (Auto) 0.3 Absolute Neuts (auto) 7.9 H Absolute Lymphs (auto) 2.14 Nucleated RBC % 0 Sodium 144 Potassium 3.8 Chloride 111 H Carbon Dioxide 25.0 Anion Gap 8 BUN 14 Creatinine 0.53 L Estim Creat Clear Calc 47.14 Est GFR (MDRD) Af Amer 148 Est GFR (MDRD) Non-Af 122 BUN/Creatinine Ratio 26.4 H Glucose 99 Calcium 8.6 Medical Necessity - Tobacco Use Smoking Status: Former smoker Tobacco Use: Non-smoker Assessment/Plan All Active Problems (Last Reviewed 05/16/18 @ 14:58 by Raúl Villareal DO) Atrial fibrillation with RVR (Resolved) Clostridium difficile colitis (Resolved) Clostridium difficile infection (Resolved) Hypertension (Resolved) Rhabdomyolysis (Resolved) 1. Sacral pressure sore, Stage IV. 2. Osteomyelitis. 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 5. Severe hypergranulation tissue sacral pressure sore. 6. s/p excision sacral pressure sore, Stage IV, with partial ostectomy for osteomyelitis (71.5 cm2) and placement of AmnioFill placental connective tissue powder, 1000 mg. 7. Anemia of chronic disease, acute on chronic, blood loss anemia. A small clot seen in the wound this morning. About 50 ml. Was removed without difficulty. No more active bleeding seen. Will hold off on the VAC for another day. Redressed with Dakin's dressing change. Nursing did not have to reinforce the dressing last night. Operative culture shows Corynebacterium striatum in the soft tissue. Bone culture is negative thus far. She is on Vancomycin and Levaquin. Has PICC line for now. May be able to be discharged on po antibiotics depending on the cultures per Infectious Diseases. Pathology is pending. Prealbumin was 20.7. Encourage nutritional supplementation with protein to help the healing process. Hgb was 8.2 today down from 8.5. She has anemia of chronic disease, acute on chronic, blood loss anemia. She had 250 ml of operative blood loss plus postop clots from the wound of about 200 ml the last three days. There is also some IV fluid dilution. She will continue Iron supplementation. Will order PRBC today which should also help with the healing process. Will hold off on discharge to TCU until tomorrow.
--- NOTE | 2019-03-20 11:56 | NURSING ---
wound photo: sacrum
[2019-03-20] MEDS: Pantoprazole Sodium 40 MG Tablet PO (13:12)
--- NOTE | 2019-03-20 15:22 | PCM.PN.HOSP ---
Subjective: No issues overnight, has continued to have some bleeding from her wound, surgery today evaluated and said that there is a clot. They will transfuse 1 unit proceed with a wound VAC in the morning Vitals/I&O's: Vital Signs Temp Pulse Resp BP Pulse Ox 98.0 F 75 18 106/51 L 95 03/20/19 08:35 03/20/19 08:35 03/20/19 08:35 03/20/19 08:35 03/20/19 08:35 Oxygen Flow Rate (L/min) 4 Oxygen Delivery Method Room Air Weight: 213 lb 10.047 oz Body Mass Index (BMI) 36.6 Intake and Output for Last 24 Hours 03/18/19 03/19/19 03/20/19 23:59 23:59 23:59 Intake Total 2967 / 3447 2640 / 3240 2301 / 2301 Output Total 1800 / 2525 3375 / 4925 4050 / 4050 Balance 1167 / 922 -735 / -1685 -1749 / -1749 General: Alert, Oriented x3, Cooperative, No apparent distress HEENT: Atraumatic, PERRLA, EOMI, Normocephalic Oral: Moist Mucosa Neck: Supple, No JVD Lungs: Clear to auscultation, Normal air movement, No rhonchi, No wheeze, No rales Cardiovascular: Regular rate, Regular Rhythm, Normal S1, Normal S2, Murmur - 2/6 PHOEBE Abdomen: Soft, Non Tender, Non-Distended, No Hepato-splenomegaly Extremities: No edema, Capillary Refill Less than 3 Seconds Skin: No rashes, No breakdown, Incision - Dressing is CDI Neurological: Neuro grossly intact, Sensory exam intact to light touch and pain Microbiology Past 72 Hours 03/17/19 12:34 Bone - Other Gram Stain - Final 03/17/19 12:34 Bone - Other Wound Culture - Final No growth aerobically. 03/17/19 12:34 Bone - Other Anaerobic Culture - Preliminary No growth in 48 hours. 03/17/19 12:34 Ulcer, Decubitus - Open/Non-Healing Wound Gram Stain - Final 03/17/19 12:34 Ulcer, Decubitus - Open/Non-Healing Wound Wound Culture - Final Corynebacterium striatum 03/17/19 12:34 Ulcer, Decubitus - Open/Non-Healing Wound Anaerobic Culture - Preliminary Checking for anaerobes, further studies to follow. Laboratory Results 03/20/19 06:24: WBC 11.7 H, RBC 3.17 L, Hgb 8.2 L, Hct 27.3 L, MCV 86.1, MCH 25.9 L, MCHC 30.0 L, RDW Std Deviation 51.9 H, RDW Coeff of Yevgeniy 16.3 H, Plt Count 327, MPV 9.3, Immature Gran % (Auto) 0.800, Neut % (Auto) 67.5, Lymph % (Auto) 18.3 L, [place] % (Auto) 10.2 H, Eos % (Auto) 2.9, Baso % (Auto) 0.3, Absolute Neuts (auto) 7.9 H, Absolute Lymphs (auto) 2.14, Nucleated RBC % 0 03/20/19 06:24: Sodium 144, Potassium 3.8, Chloride 111 H, Carbon Dioxide 25.0, Anion Gap 8, BUN 14, Creatinine 0.53 L, Estim Creat Clear Calc 47.14, Est GFR (MDRD) Af Amer 148, Est GFR (MDRD) Non-Af 122, BUN/Creatinine Ratio 26.4 H, Glucose 99, Calcium 8.6 03/20/19 13:21: Blood Type Cancelled, Antibody Screen Cancelled, Crossmatch See Detail 03/20/19 15:00: Blood Type Pending, Antibody Screen Pending, Crossmatch See Detail Current Medications Acetaminophen (Tylenol) 1,000 mg PO Q6 [facility] Last Admin: 03/20/19 13:12 Dose: 1,000 mg Documented by: Ascorbic Acid (Vitamin C) 500 mg PO DAILY [facility] Last Admin: 03/20/19 08:41 Dose: 500 mg Documented by: Aspirin (Ecotrin) 81 mg PO DAILY@0800 [facility] Last Admin: 03/20/19 08:40 Dose: 81 mg Documented by: Diazepam (Valium) 5 mg PO 4X/DAY PRN PRN PRN Reason: SPASMS Docusate Sodium (Colace) 100 mg PO BID [facility] Last Admin: 03/20/19 08:42 Dose: 100 mg Documented by: Enoxaparin Sodium (Lovenox) 40 mg SC DAILY@0600 [facility] Last Admin: 03/20/19 06:20 Dose: Not Given Documented by: Ergocalciferol (Vitamin D) 50,000 unit PO QMONTH [facility] Gabapentin (Neurontin) 300 mg PO TID [facility] Last Admin: 03/20/19 13:11 Dose: 300 mg Documented by: Heparin Sodium (Beef Lung) () 50 units IV UD PRN PRN Reason: HEPARIN FLUSH Hydromorphone HCl (Dilaudid Inj) 1 mg IV Q4H PRN PRN PRN Reason: Pain Score 6-10/10 Last Admin: 03/20/19 11:18 Dose: 1 mg Documented by: Lactated Ringer's () 1,000 mls @ 60 mls/hr IV .[id number] [facility] Last Infusion: 03/20/19 13:56 Dose: 60 mls/hr Documented by: Vancomycin IV Pharmacy to Dose (1 ea/ Sodium Chloride) 500 mls @ 250 mls/hr IV PRN PRN; Protocol PRN Reason: Rx to Dose Vancomycin HCl 1,500 mg/ (Sodium Chloride) 530 mls @ 250 mls/hr IV Q12H [facility] Last Infusion: 03/20/19 13:56 Dose: Infused Documented by: Lactobacillus Acidophilus (Acidophilus) 1 tablet PO DAILY [facility] Last Admin: 03/20/19 08:41 Dose: 1 tablet Documented by: Levothyroxine Sodium (Synthroid) 25 mcg PO DAILY@0600 [facility] Last Admin: 03/20/19 06:20 Dose: 25 mcg Documented by: Linaclotide (Linzess) 145 mcg PO DAILY PRN PRN Reason: Constipation Magnesium Oxide (Mag-Ox 400) 400 mg PO DAILY [facility] Last Admin: 03/20/19 08:43 Dose: 400 mg Documented by: Nutritional Formula (Teofilo - [place] Flavor) 1 packet PO BIDCM [facility] Last Admin: 03/20/19 08:42 Dose: 1 packet Documented by: Nutritional Formula (Lactose Free) (Ensure Enlive) 120 ml PO 4X/DAY [facility] Last Admin: 03/20/19 13:10 Dose: 120 ml Documented by: [id number]-Rwim Ethyl Esters (Lovaza) 1 gm PO DAILY [facility] Last Admin: 03/20/19 08:42 Dose: 1 gm Documented by: Ondansetron HCl (Zofran) 4 mg IV Q6H PRN PRN PRN Reason: NAUSEA Oxycodone HCl (Oxyir) 10 mg PO Q4H PRN PRN PRN Reason: Pain Score 6-10/10 Pantoprazole Sodium (Protonix) 40 mg PO 1400 [facility] Last Admin: 03/20/19 13:12 Dose: 40 mg Documented by: Polysaccharide Iron Complex (Ferrex 150) 150 mg PO DAILYCM [facility] Last Admin: 03/20/19 08:41 Dose: 150 mg Documented by: Potassium Chloride (K-Dur) 40 meq PO DAILY [facility] Last Admin: 03/20/19 08:42 Dose: 40 meq Documented by: Promethazine HCl (Phenergan Tablet) 25 mg PO Q4H PRN PRN PRN Reason: NAUSEA/VOMITING Sodium Chloride () 5 - 15 ml IV UD PRN PRN Reason: SALINE FLUSH Last Admin: 03/20/19 11:18 Dose: 10 ml Documented by: Sodium Chloride () 10 - 40 ml IV UD PRN PRN Reason: PICC FLUSH Last Admin: 03/20/19 13:27 Dose: 30 ml Documented by: Sodium Hypochlorite (Dakins Solution 0.25% (1/2 Strength)) 1 applic TOPICAL BID [facility]; Protocol Medical Necessity - Tobacco Use Smoking Status: Former smoker Tobacco Use: Non-smoker Assessment/Plan All Active Problems (Last Reviewed 05/16/18 @ 14:58 by Raúl Villareal DO) Atrial fibrillation with RVR (Resolved) Clostridium difficile colitis (Resolved) Clostridium difficile infection (Resolved) Hypertension (Resolved) Rhabdomyolysis (Resolved) 1. Sacral decubitus ulcer stage IV status post debridement -Bone biopsy pending for possible osteomyelitis -Pain management per primary -Wound VAC placement is pending -Currently on vancomycin -ID on board, cultures with corynebacterium, likelihood will be to discharge on Doxy and Keflex -Hemoglobin has dropped which can be postoperative, will proceed with 1 unit transfusion today and primary will evaluate bleeding in the morning prior to wound VAC placement 2. Hypothyroidism -Stable -continue with Synthroid 3. HTN/history of A. fib -She is on no medications or anticoagulation -Heart rate was regular, will monitor -Continue with aspirin 4. GERD -Stable -Continue with PPI 5. IBS -Stable -Continue with Linzess DVT: Lovenox Code Visit Inpatient E&M: 28252 Subs Hosp L2
--- NOTE | 2019-03-20 20:05 | NURSING ---
Pt's PICC line positional during the day, pt states it would only work while laying on her left side. 1st unit of blood finished, but needs to flush. Pt states she can lay like this for a couple more minutes for the blood to flush, but absolutely no longer than that. Explained to pt that she still needs an additional unit of blood and a 2+ hour dose of IV Vancomycin. Pt verbalizes understanding and states that she'd like disconnected for an hour to lay on her right side and then be reconnected.
[2019-03-21 02:11] VITALS: BP 106/47; PULSE 84; RESP 16; TEMP 37.1; O2SAT 95
[2019-03-21] MEDS: 0.9% NaCl PICC Flush IV ×2 (02:17→05:22)
[2019-03-21] MEDS: Acetaminophen 500 MG Tablet 1000 MG PO ×3 (02:23→14:12)
[2019-03-21 02:45] VITALS: BP 106/52; PULSE 73; RESP 16; TEMP 37.1; O2SAT 94
[2019-03-21 03:45] VITALS: BP 112/54; PULSE 74; RESP 14; TEMP 37.1; O2SAT 96
[2019-03-21 04:39] VITALS: BP 118/55; PULSE 76; RESP 16; TEMP 37; O2SAT 96
[2019-03-21] MEDS: Levothyroxine 25 MCG TABLET PO (05:22)
[2019-03-21] MEDS: Gabapentin 300 MG Capsule PO ×2 (05:22→14:09)
[2019-03-21 05:23] VITALS: BP 115/52; PULSE 73; RESP 16; TEMP 36.7; O2SAT 96
[2019-03-21 06:13] LABS: Anion Gap 5 (5-15); BUN 19 mg/dL (7-18); BUN/Creat Ratio 36.1 RATIO (10-20); Calcium,Total 8.6 mg/dL (8.5-10.1); Chloride 111 mmol/L (98-107); Creatinine, Serum 0.53 mg/dL (0.55-1.02); EST Glomerular Filtration Rate 123 mL/min (>60); Est Glom Filt Rate - Afr Amer 149 mL/min (>60); Estimated Creatinine Clearance 47.14 ml/min; Glucose 92 mg/dL (74-106); Potassium 4.6 mmol/L (3.5-5.1); Sodium Level 142 mmol/L (136-145)
[2019-03-21 06:16] LABS: Hematocrit 32.6 % (37-47); Hemoglobin 10.1 g/dL (12.0-15.0); Mean Corpuscular Hgb 26.6 pg (27.0-32.0); Mean Platelet Vol. 9.6 fl (6.2-12.0); Platelet Count 278 K/mm3 (150-450); RBC Distribution Width CV 16.2 % (11.6-14.6); RBC Distribution Width SD 50.6 fl (35.1-43.9); Red Blood Count 3.79 M/mm3 (4.2-5.4); White Blood Count 11.6 K/mm3 (4.4-11.0)
[2019-03-21] MEDS: Ascorbic Acid 500 MG Tablet PO (08:44)
[2019-03-21] MEDS: Omega-3 Acid Ethyl Esters 1 GM Capsule PO (08:44)
[2019-03-21] MEDS: Aspirin E.C. 81 MG Tablet PO (08:45)
[2019-03-21] MEDS: Docusate Sodium 100 MG Capsule PO (08:45)
[2019-03-21] MEDS: Iron Polysaccharide Complex 150 MG CAPSULE PO (08:45)
[2019-03-21] MEDS: Magnesium Oxide 400 MG Tablet PO (08:45)
--- NOTE | 2019-03-21 09:16 | PCM.PN.HOSP ---
Subjective: Feeling well, no issues overnight Vitals/I&O's: Vital Signs Temp Pulse Resp BP Pulse Ox 98.0 F 73 16 115/52 L 96 03/21/19 05:23 03/21/19 05:23 03/21/19 05:23 03/21/19 05:23 03/21/19 05:23 Oxygen Flow Rate (L/min) 4 Oxygen Delivery Method Room Air Weight: 213 lb 10.047 oz Body Mass Index (BMI) 36.6 Intake and Output for Last 24 Hours 03/19/19 03/20/19 03/21/19 23:59 23:59 23:59 Intake Total 2640 / 3240 3425 / 4575 1762 / 1762 Output Total 3375 / 4925 4350 / 5100 1750 / 1750 Balance -735 / -1685 -925 / -525 General: Alert, Oriented x3, Cooperative, No apparent distress HEENT: Atraumatic, PERRLA, EOMI, Normocephalic Oral: Moist Mucosa Neck: Supple, No JVD Lungs: Clear to auscultation, Normal air movement, No rhonchi, No wheeze, No rales Cardiovascular: Regular rate, Regular Rhythm, Normal S1, Normal S2, Murmur - 2/6 PHOEBE Abdomen: Soft, Non Tender, Non-Distended, No Hepato-splenomegaly Extremities: No edema, Capillary Refill Less than 3 Seconds Skin: No rashes, No breakdown, Incision - Dressing is CDI Neurological: Neuro grossly intact, Sensory exam intact to light touch and pain Microbiology Past 72 Hours 03/17/19 12:34 Bone - Other Gram Stain - Final 03/17/19 12:34 Bone - Other Wound Culture - Final No growth aerobically. 03/17/19 12:34 Bone - Other Anaerobic Culture - Preliminary No growth in 48 hours. 03/17/19 12:34 Ulcer, Decubitus - Open/Non-Healing Wound Gram Stain - Final 03/17/19 12:34 Ulcer, Decubitus - Open/Non-Healing Wound Wound Culture - Final Corynebacterium striatum 03/17/19 12:34 Ulcer, Decubitus - Open/Non-Healing Wound Anaerobic Culture - Preliminary Checking for anaerobes, further studies to follow. Laboratory Results 03/20/19 13:21: Blood Type Cancelled, Antibody Screen Cancelled, Crossmatch See Detail 03/20/19 15:00: Blood Type A POSITIVE, Antibody Screen NEGATIVE, Crossmatch See Detail 03/20/19 15:00: Crossmatch See Detail 03/20/19 16:34: Vancomycin Trough 19.0 H 03/21/19 05:45: WBC 11.6 H, RBC 3.79 L, Hgb 10.1 L, Hct 32.6 L, MCV 86.0, MCH 26.6 L, MCHC 31.0 L, RDW Std Deviation 50.6 H, RDW Coeff of Yevgeniy 16.2 H, Plt Count 278, MPV 9.6 03/21/19 05:45: Sodium 142, Potassium 4.6, Chloride 111 H, Carbon Dioxide 26.0, Anion Gap 5, BUN 19 H, Creatinine 0.53 L, Estim Creat Clear Calc 47.14, Est GFR (MDRD) Af Amer 149, Est GFR (MDRD) Non-Af 123, BUN/Creatinine Ratio 36.1 H, Glucose 92, Calcium 8.6 Current Medications Acetaminophen (Tylenol) 1,000 mg PO Q6 [facility] Last Admin: 03/21/19 08:43 Dose: 1,000 mg Documented by: Ascorbic Acid (Vitamin C) 500 mg PO DAILY [facility] Last Admin: 03/21/19 08:44 Dose: 500 mg Documented by: Aspirin (Ecotrin) 81 mg PO DAILY@0800 [facility] Last Admin: 03/21/19 08:45 Dose: 81 mg Documented by: Diazepam (Valium) 5 mg PO 4X/DAY PRN PRN PRN Reason: SPASMS Docusate Sodium (Colace) 100 mg PO BID [facility] Last Admin: 03/21/19 08:45 Dose: 100 mg Documented by: Enoxaparin Sodium (Lovenox) 40 mg SC DAILY@0600 [facility] Last Admin: 03/20/19 06:20 Dose: Not Given Documented by: Ergocalciferol (Vitamin D) 50,000 unit PO QMONTH [facility] Gabapentin (Neurontin) 300 mg PO TID [facility] Last Admin: 03/21/19 05:22 Dose: 300 mg Documented by: Heparin Sodium (Beef Lung) () 50 units IV UD PRN PRN Reason: HEPARIN FLUSH Hydromorphone HCl (Dilaudid Inj) 1 mg IV Q4H PRN PRN PRN Reason: Pain Score 6-10/10 Last Admin: 03/20/19 22:15 Dose: 1 mg Documented by: Lactated Ringer's () 1,000 mls @ 60 mls/hr IV .[id number] [facility] Last Admin: 03/21/19 05:22 Dose: Not Given Documented by: Vancomycin IV Pharmacy to Dose (1 ea/ Sodium Chloride) 500 mls @ 250 mls/hr IV PRN PRN; Protocol PRN Reason: Rx to Dose Vancomycin HCl 1,500 mg/ (Sodium Chloride) 530 mls @ 250 mls/hr IV Q12H [facility] Last Admin: 03/21/19 08:50 Dose: 250 mls/hr Documented by: Lactobacillus Acidophilus (Acidophilus) 1 tablet PO DAILY [facility] Last Admin: 03/21/19 08:45 Dose: 1 tablet Documented by: Levothyroxine Sodium (Synthroid) 25 mcg PO DAILY@0600 [facility] Last Admin: 03/21/19 05:22 Dose: 25 mcg Documented by: Linaclotide (Linzess) 145 mcg PO DAILY PRN PRN Reason: Constipation Magnesium Oxide (Mag-Ox 400) 400 mg PO DAILY [facility] Last Admin: 03/21/19 08:45 Dose: 400 mg Documented by: Nutritional Formula (Teofilo - [place] Flavor) 1 packet PO BIDCM [facility] Last Admin: 03/21/19 08:45 Dose: 1 packet Documented by: Nutritional Formula (Lactose Free) (Ensure Enlive) 120 ml PO 4X/DAY [facility] Last Admin: 03/21/19 08:50 Dose: 120 ml Documented by: [id number]-4-Ovay Ethyl Esters (Lovaza) 1 gm PO DAILY [facility] Last Admin: 03/21/19 08:44 Dose: 1 gm Documented by: Ondansetron HCl (Zofran) 4 mg IV Q6H PRN PRN PRN Reason: NAUSEA Oxycodone HCl (Oxyir) 10 mg PO Q4H PRN PRN PRN Reason: Pain Score 6-10/10 Pantoprazole Sodium (Protonix) 40 mg PO 1400 [facility] Last Admin: 03/20/19 13:12 Dose: 40 mg Documented by: Polysaccharide Iron Complex (Ferrex 150) 150 mg PO DAILYCM [facility] Last Admin: 03/21/19 08:45 Dose: 150 mg Documented by: Potassium Chloride (K-Dur) 40 meq PO DAILY [facility] Last Admin: 03/21/19 08:44 Dose: 40 meq Documented by: Promethazine HCl (Phenergan Tablet) 25 mg PO Q4H PRN PRN PRN Reason: NAUSEA/VOMITING Sodium Chloride () 5 - 15 ml IV UD PRN PRN Reason: SALINE FLUSH Last Admin: 03/20/19 11:18 Dose: 10 ml Documented by: Sodium Chloride () 10 - 40 ml IV UD PRN PRN Reason: PICC FLUSH Last Admin: 03/21/19 05:22 Dose: 10 ml Documented by: Sodium Hypochlorite (Dakins Solution 0.25% (1/2 Strength)) 1 applic TOPICAL BID [facility]; Protocol Last Admin: 03/21/19 08:46 Dose: Not Given Documented by: STROKE Vital Signs/Narrative: Vital Signs Temp Pulse Resp BP Pulse Ox 03/21/19 05:23 98.0 F 73 16 115/52 L 96 Medical Necessity - Tobacco Use Smoking Status: Former smoker Tobacco Use: Non-smoker Assessment/Plan All Active Problems (Last Reviewed 05/16/18 @ 14:58 by Raúl Villareal DO) Atrial fibrillation with RVR (Resolved) Clostridium difficile colitis (Resolved) Clostridium difficile infection (Resolved) Hypertension (Resolved) Rhabdomyolysis (Resolved) 1. Sacral decubitus ulcer stage IV status post debridement/iron deficiency anemia -Bone biopsy pending for possible osteomyelitis -Pain management per primary -Continue with her vitamin C and iron replacement -Currently on vancomycin -ID on board, cultures with corynebacterium, plan to discharge on Doxy twice daily for 10 days as well as Keflex 3 times daily -Received 2 units PRBCs yesterday and her hemoglobin today is 10.1, will plan to proceed with wound VAC placement today -Cleared for discharge we will sign off if any needs arise please call 2. Hypothyroidism -Stable -continue with Synthroid 3. HTN/history of A. fib -She is on no medications or anticoagulation -Heart rate was regular, will monitor -Continue with aspirin 4. GERD -Stable -Continue with PPI 5. IBS -Stable -Continue with Linzess DVT: Lovenox Code Visit Inpatient E&M: 00096 Subs Hosp L2
[2019-03-21 11:16] VITALS: BP 117/54; PULSE 73; RESP 18; TEMP 37.2; O2SAT 94
--- NOTE | 2019-03-21 11:47 | PCM.PN.SRG ---
Subjective: Postop #4 Patient is resting comfortably. VAC applied today. No more oozing seen. Had PRBC yesterday. - Physical Exam General: Alert, Oriented x3 HEENT: PERRLA, EOMI Oral: Moist Mucosa Neck: Supple Abdomen: Soft, Non-Distended Skin: Ulcer/ Wound - sacral wound is stable. No active bleeding seen. No more clots seen. VAC applied Neurological: Cranial nerves II-XII grossly intact Psych/Mental Status: Normal Affect, Appropriate Vital Signs Temp Pulse Resp BP Pulse Ox 98.9 F 73 18 117/54 L 94 03/21/19 11:16 03/21/19 11:16 03/21/19 11:16 03/21/19 11:16 03/21/19 11:16 Oxygen Flow Rate (L/min) 4 Oxygen Delivery Method Room Air Weight: 213 lb 10.047 oz Body Mass Index (BMI) 36.6 Intake and Output for Last 24 Hours 03/19/19 03/20/19 03/21/19 23:59 23:59 23:59 Intake Total 2640 / 3240 3425 / 4575 2652 / 2652 Output Total 3375 / 4925 4350 / 5100 3250 / 3250 Balance -735 / -1685 -925 / -525 -598 / -598 Microbiology Past 72 Hours 03/17/19 12:34 Gram Stain - Final Ulcer, Decubitus - Open/Non-Healing Wound Wound Culture - Final Corynebacterium striatum Anaerobic Culture - Final Anaerobic cocci 03/17/19 12:34 Gram Stain - Final Bone - Other Wound Culture - Final No growth aerobically. Anaerobic Culture - Preliminary No growth in 48 hours. Laboratory Tests Past 24 Hrs 03/20/19 03/20/19 03/20/19 13:21 15:00 15:00 WBC RBC Hgb Hct MCV MCH MCHC RDW Std Deviation RDW Coeff of Yevgeniy Plt Count MPV Sodium Potassium Chloride Carbon Dioxide Anion Gap BUN Creatinine Estim Creat Clear Calc Est GFR (MDRD) Af Amer Est GFR (MDRD) Non-Af BUN/Creatinine Ratio Glucose Calcium Vancomycin Trough Blood Type Cancelled A POSITIVE Antibody Screen Cancelled NEGATIVE Crossmatch See Detail See Detail See Detail 03/20/19 03/21/19 03/21/19 16:34 05:45 05:45 WBC 11.6 H RBC 3.79 L Hgb 10.1 L Hct 32.6 L MCV 86.0 MCH 26.6 L MCHC 31.0 L RDW Std Deviation 50.6 H RDW Coeff of Yevgeniy 16.2 H Plt Count 278 MPV 9.6 Sodium 142 Potassium 4.6 Chloride 111 H Carbon Dioxide 26.0 Anion Gap 5 BUN 19 H Creatinine 0.53 L Estim Creat Clear Calc 47.14 Est GFR (MDRD) Af Amer 149 Est GFR (MDRD) Non-Af 123 BUN/Creatinine Ratio 36.1 H Glucose 92 Calcium 8.6 Vancomycin Trough 19.0 H Blood Type Antibody Screen Crossmatch Medical Necessity - Tobacco Use Smoking Status: Former smoker Tobacco Use: Non-smoker Assessment/Plan All Active Problems (Last Reviewed 05/16/18 @ 14:58 by Raúl Villareal DO) Atrial fibrillation with RVR (Resolved) Clostridium difficile colitis (Resolved) Clostridium difficile infection (Resolved) Hypertension (Resolved) Rhabdomyolysis (Resolved) 1. Sacral pressure sore, Stage IV. 2. Osteomyelitis. 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 5. Severe hypergranulation tissue sacral pressure sore. 6. s/p excision sacral pressure sore, Stage IV, with partial ostectomy for osteomyelitis (71.5 cm2) and placement of AmnioFill placental connective tissue powder, 1000 mg. 7. Anemia of chronic disease, acute on chronic, blood loss anemia, improved after PRBC.. No clots seen in the wound today. No active bleeding seen. VAC applied without difficulty. Operative culture shows Corynebacterium striatum and Anaerobic cocci in the soft tissue. Bone culture is negative thus far. She is on Vancomycin. The Levaquin has been stopped. Has PICC line for now. Will be discharged on Doxycycline and Keflex. For the Anaerobic cocci, will add Flagyl. Pathology is pending. Prealbumin was 20.7. Encourage nutritional supplementation with protein to help the healing process. Hgb improved to 10.1 from 8.2 after receiving PRBC yesterday (2 units). She has anemia of chronic disease, acute on chronic, blood loss anemia that has improved with the PRBC. She had 250 ml of operative blood loss plus postop clots from the wound of about 200 ml. There is also some IV fluid dilution. She will continue Iron supplementation. Discharge to [facility] today. Followup at the Wound Center after discharge from TCU.
--- NOTE | 2019-03-21 11:58 | PCM.TXEXTCAR ---
- Diet 03/17/19 12:44 Diet: Regular Diet - Routine Orders/Code Status Suppository Type: Dulcolax 10mg Suppository Frequency: Daily PRN Grewal Catheter Size: 16 Change Grewal Catheter: monthly and prn. Routine Lab Work: CBC - qMonday., - - CMP, ESR, CRP, Vancomycin Trough level qMonday. Pharmacy to dose the Vancomycin. Code Status: Full Code - Wound(s) SACRUM Wound Type: Pressure Injury - sacral pressure sore, Stage IV. Dressing Change: applied KCI wound VAC - Suggestions for Active Care Change Position every (hours): 2 - needs specialty bed from [facility] such as low air loss bed. Hours to sit in a chair: 2 - while in chair, do pressure releases every 10 minutes for 10 seconds. Times a day to sit in chair: 3 - Therapies Weight Bearing: Weight bearing as tolerated Physical Therapy: Eval and Treat - for ambulation and strengthening. Occupational Therapy: Eval and Treat - for upper body strengthening. to help positioning in bed, patient will need an overhead trapeze. - Allergies/Procedures Done in Hospital Allergies/Adverse Reactions: Allergies bee venom protein (honey bee) Allergy (Verified 03/12/19 08:46) Angioedema metaxalone [From Skelaxin] Allergy (Verified 03/12/19 08:46) Swelling Procedures: Blood transfusion, PICC line placement, Wound Vac placement, - - Surgery 03/17/19 - Excision sacral pressure sore, Stage IV, with partial ostectomy for osteomyeiltis (71.5 cm2) and placement of AmnioFill placental connective tissue powder, 1000 mg. - Type of Care/Length of Stay Estimated LOS: More Than 30 Days Type of Care Needed: Skilled Rehab Potential: Fair Prognosis: Fair - Additional Orders/Day of Discharge H&P will serve as current which was dated: 03/16/19 Day of Discharge: 03/21/19 - Dietary and Speech Recommendations Dietitian Recommendations/Changes: Recommend continue regular diet. Recommend continue Teofilo 1 packet BID for wound healing & Ensure Enlive 120ml 4x/day on medpass for additional nutrition. - Follow Up Care Primary Care Physician: Chema Sanchez Chi, MD [Primary Care Provider] - Please Follow Up With: Regino Hansen MD When: wound center after discharged from TCU. call [phone] for appt.
--- NOTE | 2019-03-21 12:18 | CASEMGMT ---
Social Work Note LORNA updated that pt is discharging to TCU today. LORNA placed a call to Luz Elena in TCU and updated her that pt will be discharged to TCU today. Luz Elena states understanding. 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
--- NOTE | 2019-03-21 12:21 | DS.PCM_ITS ---
Discharge Date and Diagnosis - Problem List Patient Problems: Active and Suspected Problems (Last Reviewed 05/16/18 @ 14:58 by Raúl Villareal DO) Debility (Acute) Date of Admission: 03/17/19 Date of Discharge: 03/21/19 - Primary Discharge Diagnosis Sacral pressure sore, Stage IV. Anemia of chronic disease, acute on chronic, blood loss anemia. - Secondary Discharge Diagnosis MRSA (methicillin resistant Staphylococcus aureus) infection Osteomyelitis of pelvis Constipation Severe hypergranulation tissue sacral pressure sore Secondary pulmonary arterial hypertension Non-rheumatic tricuspid valve insufficiency Essential (primary) hypertension Colovaginal fistula Morbid obesity with BMI of 40.0-44.9, adult GERD (gastroesophageal reflux disease) Depression Hypothyroidism Neuropathy Hospital Course and Treatment Imaging Results: None. 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 Servin and Dr. Louis. Infectious Diseases - Dr. Preston. Operations: - - Surgery 03/17/19 - Excision sacral pressure sore, Stage IV, with partial ostectomy for osteomyelitis (71.5 cm2) and placement of AmnioFill placental connective tissue powder, 1000 mg. Procedures: Blood transfusion, PICC line placement, Wound vac placement Summary of Care Provided: 68 year old woman presents for further operative excision of her sacral pressure sore because of the development of severe hypergranulation tissue. Wound care is hampered with the VAC because of the hypergranulation tissue. After her last excision of her sacral pressure sore in 05/21, her bone pathology was positive for osteomyelitis. Her bone culture was positive for corynebacterium minutissimum and Staphylococcus epidermidis. She received IV Vancomycin for 6 weeks. At the time of her pressure sore, she was found to have a colovaginal fistula that was surgically repaired in 12/19 at [facility]. She had additional surgery on 09/09/18 where she further operative excision of her sacral pressure sore because of persistence of hypergranulation tissue. Operative culture showed Actinomyces odontolyticus. She was placed on Doxycycline and finished them. Recent wound culture from 01/29/19 showed MRSA. She was also placed on Doxycycline and has finished them. Further operative maintenance excision was recommended because of persistent hypergranulation tissue. She was taken to surgery on 03/17/19 where she underwent excision sacral pressure sore, Stage IV, with partial ostectomy for osteomyelitis (71.5 cm2) and placement of AmnioFill placental connective tissue powder, 1000 mg. She tolerated the procedure well. Hospitalist Group was consulted for medical management. Infectious Diseases was consulted for antibiotic management. Perioperatively she was treated with Vancomycin and Levaquin. There was 250 ml of operative blood loss. Normally the VAC is placed the following day after surgery. However there was persistent oozing with blood clot in the wound for a few days. In the meantime, started Dakin's dressing changes. By the 4th postop day, the wound was dry enough for placement of the VAC. Over the 4 days, about 200 ml of clot were removed from the wound. Patient has anemia of chronic disease, acute on chronic, blood loss anemia due to combination of operative blood loss (250 ml) and blood clot removal (200 ml) and IV fluid dilution. Initially the Hgb was 13.6. It drifted down to 8.2 by the 3rd postop day. Iron supplementation was started. The patient was also given PRBC (2 units) to help with healing and to take stress off her heart. The Hgb improved to 10.1 for discharge. Operative culture showed Corynebacterium striatum and Anaerobic cocci in the soft tissue. Bone culture was negative thus far. The Pathology was pending at discharge. Anticipating osteomyelitis and the need for IV antibiotics, a PICC line was placed. She continued on Vancomycin until discharge. The Levaquin has been stopped. Infectious Diseases felt the patient could be discharged on Doxycycline and Keflex. For the Anaerobic cocci, Flagyl was added. Until the Pathology results are available, I will leave the PICC line for a few days because if osteomyelitis is present, will proceed with IV antibiotics. Prealbumin was 20.7. Encourage nutritional supplementation with protein to help the healing process. On the 4th postop day, the VAC was applied without difficulty and she was discharged to TCU. Followup at the Wound Center after discharge from TCU. Patient Problems: Active and Suspected Problems (Last Reviewed 05/16/18 @ 14:58 by Raúl Villareal DO) Debility (Acute) - Physical Exam General: Alert, Oriented x3 HEENT: PERRLA, EOMI Oral: Moist Mucosa Neck: Supple Abdomen: Soft, Non-Distended Skin: Ulcer/ Wound - sacral wound is stable. No active bleeding seen. No more clots seen. VAC applied. Neurological: Cranial nerves II-XII grossly intact Psych/Mental Status: Normal Affect, Appropriate Vital Signs Temp Pulse Resp BP Pulse Ox 98.9 F 73 18 117/54 L 94 03/21/19 11:16 03/21/19 11:16 03/21/19 11:16 03/21/19 11:16 03/21/19 11:16 Oxygen Flow Rate (L/min) 4 Oxygen Delivery Method Room Air Weight: 213 lb 10.047 oz Body Mass Index (BMI) 36.6 Intake and Output for Last 24 Hours 03/19/19 03/20/19 03/21/19 23:59 23:59 23:59 Intake Total 2640 / 3240 3425 / 4575 2652 / 2652 Output Total 3375 / 4925 4350 / 5100 3250 / 3250 Balance -735 / -1685 -925 / -525 -598 / -598 Microbiology Past 72 Hours 03/17/19 12:34 Gram Stain - Final Ulcer, Decubitus - Open/Non-Healing Wound Wound Culture - Final Corynebacterium striatum Anaerobic Culture - Final Anaerobic cocci 03/17/19 12:34 Gram Stain - Final Bone - Other Wound Culture - Final No growth aerobically. Anaerobic Culture - Preliminary No growth in 48 hours. Laboratory Tests Past 24 Hrs 03/20/19 03/20/19 03/20/19 13:21 15:00 15:00 WBC RBC Hgb Hct MCV MCH MCHC RDW Std Deviation RDW Coeff of Yevgeniy Plt Count MPV Sodium Potassium Chloride Carbon Dioxide Anion Gap BUN Creatinine Estim Creat Clear Calc Est GFR (MDRD) Af Amer Est GFR (MDRD) Non-Af BUN/Creatinine Ratio Glucose Calcium Vancomycin Trough Blood Type Cancelled A POSITIVE Antibody Screen Cancelled NEGATIVE Crossmatch See Detail See Detail See Detail 03/20/19 03/21/19 03/21/19 16:34 05:45 05:45 WBC 11.6 H RBC 3.79 L Hgb 10.1 L Hct 32.6 L MCV 86.0 MCH 26.6 L MCHC 31.0 L RDW Std Deviation 50.6 H RDW Coeff of Yevgeniy 16.2 H Plt Count 278 MPV 9.6 Sodium 142 Potassium 4.6 Chloride 111 H Carbon Dioxide 26.0 Anion Gap 5 BUN 19 H Creatinine 0.53 L Estim Creat Clear Calc 47.14 Est GFR (MDRD) Af Amer 149 Est GFR (MDRD) Non-Af 123 BUN/Creatinine Ratio 36.1 H Glucose 92 Calcium 8.6 Vancomycin Trough 19.0 H Blood Type Antibody Screen Crossmatch Discharge Diet: No Restrictions, - - encourage nutritional supplementation with protein to help the healing process. Discharge Activity: May Shower - on the days the vac is changed. May resume sexual activity in: 10-14 days Weight Bearing Status: Weight bearing as tolerated Call your doctor if your incision/area has: Continuous Slow Oozing, Sudden Increased Bleeding, Increased Pain/ Swelling, Increased Redness, Foul Smelling Discharge, Swelling at the incision site Call your doctor if you observe: Fever of 101 or Higher, Coldness, Increased Pain, Shortness of breath, Chest pain, Calf discomfort, Uncontrolled pain Suture Line Care: - - vac changes three times per week at 150 mmHg continuous suction. Change Dressing in (Days):: 2 - vac changes three times per week. Cleanse incision/area with: Soap & Water - may cleanse the sacral wound with soap and water on the days the vac is changed. Home Medications: Medications to take at Discharge Levothyroxine [Synthroid] 25 mcg PO DAILY 03/02/17 cholecalciferol (vitamin D3) 50,000 unit capsule 50,000 unit PO QMONTH 08/02/17 Ascorbic Acid 500 mg PO DAILY 08/21/17 Potassium Chloride [K-Dur] 40 meq PO DAILY 12/26/17 Omeprazole 40 mg PO 1400 04/11/18 omega-3 fatty acids 1,000 mg capsule 1,000 mg PO DAILY 04/19/18 Linacolotide [Linzess] 145 mcg PO DAILY PRN capsule 07/08/18 Gabapentin [Neurontin] 300 mg PO TID 09/02/18 Iron Polysaccharide Complex [Ferrex 150] 150 mg PO DAILYCM #30 capsule 09/12/18 Acetaminophen [Tylenol] 1,000 mg PO Q6H 03/12/19 Aspirin [Aspir 81] 81 mg PO DAILY 03/12/19 Chromium/Herbal Complex No.238 [Green Tea Caplet] 1 ea PO DAILY 03/12/19 Diclofenac [Voltaren] 50 mg PO BIDCM 03/12/19 Lactobacillus Acidophilus/Fos [Acidophilus Probiotic Tablet] 1 ea PO DAILY 03/12/19 Magnesium Oxide [Magnesium] 500 mg PO DAILY 03/12/19 Turmeric Root Extract [Turmeric] 500 mg PO DAILY 03/12/19 0.9% Saline Lock 10 - 40 ml IV UD PRN syringe 03/21/19 Cephalexin [Keflex] 500 mg PO TID 03/21/19 Diazepam [Valium] 5 mg PO 4X/DAY PRN PRN #30 tab 03/21/19 Docusate Sodium [Colace] 100 mg PO BID 03/21/19 Doxycycline 100 mg PO BID 03/21/19 Ensure Enlive 120 ml PO 4X/DAY 03/21/19 Heparin Pf Lock 10 units/ml 50 units IV UD PRN syringe 03/21/19 Metronidazole [Flagyl] 500 mg PO TID 03/21/19 Nutritional Supplement [Teofilo - ORANGE FLAVOR] 1 packet PO BIDCM 03/21/19 Ondansetron [Zofran] 4 mg IV Q6H PRN PRN vial 03/21/19 Oxycodone [Oxyir] 10 mg PO Q4H PRN PRN 7 Days #40 tab 03/21/19 proMETHazine tablet [Phenergan tablet] 25 mg PO Q4H PRN PRN tab 03/21/19 Following Prescrptions Were Given to Patient: Oxycodone [Oxyir] 10 mg PO Q4H PRN PRN 7 Days #40 tab PRN Reason: Pain Score 6-10/10 Prescription Printed Diazepam [Valium] 5 mg PO 4X/DAY PRN PRN #30 tab PRN Reason: Spasms Prescription Printed Primary Care Physician: Chema Sanchez Chi, MD [Primary Care Provider] - Please Follow Up With: Regino Hansen MD When: wound center after discharged from TCU. call [phone] for appt. Medical Necessity - Tobacco Use Smoking Status: Former smoker Tobacco Use: Non-smoker Meaningful Use Info Meaningful Use Diagnoses (Choose all that apply): None applicable
--- NOTE | 2019-03-21 12:25 | NURSING ---
called report to Arvind in TCU. Patient will be discharged to TCU after lunch.
--- NOTE | 2019-03-21 12:41 | PCM.PN.ID ---
Subjective: Feeling ok, no fever, mild nausea. - Physical Exam General: Alert, Cooperative, No apparent distress Lungs: Clear to auscultation, Normal air movement Cardiovascular: Regular rate, Regular Rhythm, Murmur Abdomen: Soft, Non Tender, Non-Distended Skin: Ulcer/ Wound - reviewed photo Vital Signs Temp Pulse Resp BP Pulse Ox 98.9 F 73 18 117/54 L 94 03/21/19 11:16 03/21/19 11:16 03/21/19 11:16 03/21/19 11:16 03/21/19 11:16 Oxygen Flow Rate (L/min) 4 Oxygen Delivery Method Room Air Weight: 96.9 kg Body Mass Index (BMI) 36.6 Intake and Output for Last 24 Hours 03/19/19 03/20/19 03/21/19 23:59 23:59 23:59 Intake Total 2640 / 3240 3425 / 4575 2652 / 2652 Output Total 3375 / 4925 4350 / 5100 3250 / 3250 Balance -735 / -1685 -925 / -525 -598 / -598 Microbiology Past 72 Hours 03/17/19 12:34 Gram Stain - Final Ulcer, Decubitus - Open/Non-Healing Wound Wound Culture - Final Corynebacterium striatum Anaerobic Culture - Final Anaerobic cocci 03/17/19 12:34 Gram Stain - Final Bone - Other Wound Culture - Final No growth aerobically. Anaerobic Culture - Preliminary No growth in 48 hours. Laboratory Tests Past 24 Hrs 03/20/19 03/20/19 03/20/19 13:21 15:00 15:00 WBC RBC Hgb Hct MCV MCH MCHC RDW Std Deviation RDW Coeff of Yevgeniy Plt Count MPV Sodium Potassium Chloride Carbon Dioxide Anion Gap BUN Creatinine Estim Creat Clear Calc Est GFR (MDRD) Af Amer Est GFR (MDRD) Non-Af BUN/Creatinine Ratio Glucose Calcium Vancomycin Trough Blood Type Cancelled A POSITIVE Antibody Screen Cancelled NEGATIVE Crossmatch See Detail See Detail See Detail 03/20/19 03/21/19 03/21/19 16:34 05:45 05:45 WBC 11.6 H RBC 3.79 L Hgb 10.1 L Hct 32.6 L MCV 86.0 MCH 26.6 L MCHC 31.0 L RDW Std Deviation 50.6 H RDW Coeff of Yevgeniy 16.2 H Plt Count 278 MPV 9.6 Sodium 142 Potassium 4.6 Chloride 111 H Carbon Dioxide 26.0 Anion Gap 5 BUN 19 H Creatinine 0.53 L Estim Creat Clear Calc 47.14 Est GFR (MDRD) Af Amer 149 Est GFR (MDRD) Non-Af 123 BUN/Creatinine Ratio 36.1 H Glucose 92 Calcium 8.6 Vancomycin Trough 19.0 H Blood Type Antibody Screen Crossmatch Medical Necessity - Tobacco Use Smoking Status: Former smoker Tobacco Use: Non-smoker Route of nutrition/ use of supplements: [] Nutritional Intake: [] IV Site: [] Grewal Catheter: [] - Assessment/Plan Antibiotics: [] Assessment/Plan: [] suspected sacral osteo - On vanc. Now s/p OR 03/17/[address] Hansen. Bone cx neg, superficial cx with Corynebacteria striatum, anaerobes. Had been on doxy for several weeks prior to this surgery. At discharge, would have her go on 10 days more of po doxy 100mg bid and keflex 500mg tid, will add flagyl. Will follow, d/w telephonic case manager
[2019-03-21] MEDS: Pantoprazole Sodium 40 MG Tablet PO (14:09)
[2019-03-21] MEDS: metroNIDAZOLE 500 MG Tablet PO (14:12)
== END 2019-03-21 14:35 | disposition skilled nursing facility (03) | DRG 515 ==
LOC: MS3 15:43 → SDC 03-18 12:13
PROVIDERS: Anesthesiology; Family Medicine; Admitting Provider Surgery; Family Provider Family Medicine Geriatric Medicine; PCP Family Medicine Geriatric Medicine; Referring Provider Surgery; Visit Provider Surgery
PROC: 0QB10ZZ Excision of Sacrum, Open Approach (ICD-10-PCS; principal; 2019-03-17 08:45)
DX: M46.28 Osteomyelitis of vertebra, sacral and sacrococcygeal region (principal); L89.154 Pressure ulcer of sacral region, stage 4; D62 Acute posthemorrhagic anemia; L76.22 Postprocedural hemorrhage of skin and subcutaneous tissue following other procedure; D63.8 Anemia in other chronic diseases classified elsewhere; E03.9 Hypothyroidism, unspecified; K58.9 Irritable bowel syndrome, unspecified; I27.21 Secondary pulmonary arterial hypertension; K21.9 Gastro-esophageal reflux disease without esophagitis; F32.9 Major depressive disorder, single episode, unspecified; E66.01 Morbid (severe) obesity due to excess calories; Z68.36 Body mass index [BMI] 36.0-36.9, adult; L92.8 Other granulomatous disorders of the skin and subcutaneous tissue; Z86.14 Personal history of Methicillin resistant Staphylococcus aureus infection; Z87.891 Personal history of nicotine dependence; B96.89 Other specified bacterial agents as the cause of diseases classified elsewhere; G62.9 Polyneuropathy, unspecified; Y83.8 Other surgical procedures as the cause of abnormal reaction of the patient, or of later complication, without mention of misadventure at the time of the procedure
CPT/HCPCS: 36415; 36569; 80048; 80053; 80202; 84134; 84443; 85025; 85027; 85610; 85652; 85730; 86140; 86850; 86900; 86901; 86920; 86922; 87070; 87075; 87077; 87102; 87176; 87205; 87206; 88305; 88311; 93005; 97802; J7040; J7120; P9016; A4216; J2405

== ENCOUNTER 2019-03-21 14:38 | Inpatient (IN) | payer MEDICARE, OTHER, SELFPAY ==
[2019-03-17 14:53] VITALS: BMI 36.6
[2019-03-21 14:50] VITALS: BP 132/52; PULSE 92; RESP 18; TEMP 37; O2SAT 95; BMI 36.6; BMI 36.7
--- NOTE | 2019-03-21 15:06 | NURSING ---
pt admitted at 1430 from [facility] via bed
[2019-03-21] MEDS: metroNIDAZOLE 500 MG Tablet PO (17:58)
[2019-03-21] MEDS: Docusate Sodium 100 MG Capsule PO (17:58)
--- NOTE | 2019-03-21 20:07 | HP.PCM_ITS ---
Problem List (1) Debility Status: Acute (2) Hypertension Status: Chronic (3) Osteomyelitis Status: Chronic (4) Atrial fibrillation Status: Chronic (5) Back pain Status: Chronic (6) Methicillin resistant Staph aureus culture positive Status: Chronic (7) GERD (gastroesophageal reflux disease) Status: Chronic (8) Hypothyroidism Status: Chronic (9) Pressure ulcer of sacral region, stage 4 Status: Chronic (10) Neuropathy Status: Chronic History of Present Illness Date of Admission: 03/21/19 Chief Complaint: Here for rehabilitation, strengthening, wound care, prior to discahrge home alone. The patient is a 68 year old Female with below past medical history with followin03/17/2019 Chronic sacral pressure ulcer with VAC dressing. Hypergranulation tissue slowing wound healing. 01/29/2019 Wound culture grew MRSA treated with course of doxycycline. 03/17/2019 EKG normal sinus rhythm, normal EKG. 03/17/2019 Dr. Hansen performed excision sacral pressure ulcer, stage 4, with partial ostectomy for osteomyelitis, placement of amnio Fill placental connective tissue powder. 03/17/2019 Dr. Preston noted Vancomycin, Levaquin, pending cultures, was on Doxycycline. 03/20/2019 Transfuse 2 units PRBC for postoperative anemia. Cultures growing corynebacterium, plan to treat with Keflex, Doxycycline. Wound VAC applied. 03/21/2019 Admit to TCU with debility, here for rehabilitation, strengthening, wound care, prior to discharge home alone. Past Medical History Past Medical History (Chronic Problems): Chronic Problems (Last Reviewed 05/16/18 @ 14:58 by Raúl Villareal DO) Hypertension (Chronic) Osteomyelitis (Chronic) Atrial fibrillation (Chronic) Back pain (Chronic) Methicillin resistant Staph aureus culture positive (Chronic) MRSA (methicillin resistant Staphylococcus aureus) infection (Chronic) Osteomyelitis of pelvis (Chronic) Constipation (Chronic) Hypergranulation (Chronic) Acute osteomyelitis of sacrum (Chronic) Surgical wound present (Chronic) Secondary pulmonary arterial hypertension (Chronic) Non-rheumatic tricuspid valve insufficiency (Chronic) Preop cardiovascular exam (Chronic) Abnormal electrocardiogram (Chronic) Essential (primary) hypertension (Chronic) Colovaginal fistula (Chronic) Non-healing surgical wound (Chronic) Pressure ulcer of right heel, stage 3 (Chronic) Pressure ulcer of left heel, stage 3 (Chronic) Morbid obesity with BMI of 40.0-44.9, adult (Chronic) GERD (gastroesophageal reflux disease) (Chronic) Depression (Chronic) Hypothyroidism (Chronic) Pressure ulcer of sacral region, stage 4 (Chronic) Failure to thrive (Chronic) Neuropathy (Chronic) Medical History: Medical History (Last Reviewed 05/16/18 @ 14:58 by Raúl Villareal DO) Secondary pulmonary arterial hypertension (Chronic) I27.21 Non-rheumatic tricuspid valve insufficiency (Chronic) I36.1 Essential (primary) hypertension (Chronic) I10 Morbid obesity with BMI of 40.0-44.9, adult (Chronic) E66.01, Z68.41 GERD (gastroesophageal reflux disease) (Chronic) K21.9 Hypothyroidism (Chronic) E03.9 Atrial fibrillation with RVR (Resolved) I48.91 Abnormal Pap smear of cervix R87.619 Anemia D64.9 Back pain M54.9 GERD (gastroesophageal reflux disease) K21.9 Heart murmur R01.1 Sacral wound S31.000A Thyroid disorder E07.9 anixety and depression Hypertension I10 Allergies bee venom protein (honey bee) Allergy (Verified 03/12/19 08:46) Angioedema metaxalone [From Skelaxin] Allergy (Verified 03/12/19 08:46) Swelling Home Medications: Ambulatory Orders Medication Instructions Recorded Levothyroxine [Synthroid] 25 mcg PO DAILY 03/02/17 cholecalciferol (vitamin D3) 50,000 unit PO QMONTH 08/02/17 50,000 unit capsule Ascorbic Acid 500 mg PO DAILY 08/21/17 Potassium Chloride [K-Dur] 40 meq PO DAILY 12/26/17 Omeprazole 40 mg PO 1400 04/11/18 omega-3 fatty acids 1,000 mg 1,000 mg PO DAILY 04/19/18 capsule Linacolotide [Linzess] 145 mcg PO DAILY PRN capsule 07/08/18 Gabapentin [Neurontin] 300 mg PO TID 09/02/18 Iron Polysaccharide Complex 150 mg PO DAILYCM #30 capsule 09/12/18 [Ferrex 150] Acetaminophen [Tylenol] 1,000 mg PO Q6H 03/12/19 Aspirin [Aspir 81] 81 mg PO DAILY 03/12/19 Chromium/Herbal Complex No.238 1 ea PO DAILY 03/12/19 [Green Tea Caplet] Diclofenac [Voltaren] 50 mg PO BIDCM 10/09/19 Lactobacillus Acidophilus/Fos 1 ea PO DAILY 03/12/19 [Acidophilus Probiotic Tablet] Magnesium Oxide [Magnesium] 500 mg PO DAILY 03/12/19 Turmeric Root Extract [Turmeric] 500 mg PO DAILY 03/12/19 0.9% Saline Lock 10 - 40 ml IV UD PRN syringe 03/21/19 Cephalexin [Keflex] 500 mg PO TID 03/21/19 Diazepam [Valium] 5 mg PO 4X/DAY PRN PRN #30 tab 03/21/19 Docusate Sodium [Colace] 100 mg PO BID 03/21/19 Doxycycline 100 mg PO BID 03/21/19 Ensure Enlive 120 ml PO 4X/DAY 03/21/19 Heparin Pf Lock 10 units/ml 50 units IV UD PRN syringe 03/21/19 Metronidazole [Flagyl] 500 mg PO TID 03/21/19 Nutritional Supplement [Teofilo - 1 packet PO BIDCM 03/21/19 ORANGE FLAVOR] Ondansetron [Zofran] 4 mg IV Q6H PRN PRN vial 03/21/19 Oxycodone [Oxyir] 10 mg PO Q4H PRN PRN 7 Days #40 tab 03/21/19 proMETHazine tablet [Phenergan 25 mg PO Q4H PRN PRN tab 03/21/19 tablet] Surgical History: Surgical History (Last Reviewed 03/17/19 @ 16:52 by VALERIE Meade) H/O dilation and curettage Z98.890 History of LAVH Z98.890, Z90.710 S/P endometrial ablation Z98.890 S/P hysterectomy Z90.710 uterine ablation History of partial colectomy Z90.49 Surgical History: dilatation and curettage, hysterectomy, - - Uterine ablation, Debridement/excision of sacral pressure ulcer X3. Colovaginal fistula surgical repair. 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 Paternal Family History: Family History (Last Reviewed 03/17/19 @ 16:54 by VALERIE Meade) Father Myocardial infarction Cancer Brother Heart disease Mother COPD (chronic obstructive pulmonary disease) History Items: Unknown, - - Patient's father at age of 79 with history of lung cancer and myocardial infarction. Review of Systems Constitutional: Denies: Chills, Fever, Weight Change HEENT: Denies: Head Aches, Sinus Congestion, Sinus Drainage Cardiovascular: Denies: Chest Pain, Palpitations Respiratory: Denies: Cough, Shortness of breath at rest, Sputum production Gastrointestinal: Denies: Abdominal Pain, Nausea, Vomiting Genitourinary: Denies: Dysuria Musculoskeletal: Denies: Joint Pain, Joint Tenderness Skin: Denies: Rash, Wounds Neurological: Denies: Numbness, Tingling, Focal weakness Psychiatric: Denies: Anxiety, Depression, Homicidal Ideations, Suicidal Ideations Hematologic/ Lymphatic: Denies: Easy Bruising, Easy Bleeding VTE Information - Inpt Only VTE Present on Admission: No VTE Mechan Device Prophylaxis: Knee High CHRISTOPHE Hose VTE Pharm Prophylaxis ordered?: No Reason prophylaxis not ordered:: Treatment Not Indicated Patient Problems: Active and Suspected Problems (Last Reviewed 05/16/18 @ 14:58 by Raúl Villareal DO) Debility (Acute) - Physical Exam General: Alert, Oriented x3, Cooperative HEENT: Atraumatic, PERRLA, EOMI, Normocephalic Neck: Supple, No JVD, Negative Carotid Bruits Lungs: Clear to auscultation, Normal air movement Cardiovascular: Regular rate, No murmurs Abdomen: Bowel Sounds Present, Soft, Non Tender Extremities: No edema, Capillary Refill Less than 3 Seconds Skin: No rashes, Ulcer/ Wound - Wound Vac to stage 4 sacral pressure ulcer. Musculoskeletal: No Tenderness to Palpation of Joints or Extremities Neurological: Cranial nerves II-XII grossly intact Psych/Mental Status: Normal Affect, Appropriate Vital Signs Temp Pulse Resp BP Pulse Ox 98.6 F 92 18 132/52 H 95 03/21/19 14:50 03/21/19 14:50 03/21/19 14:50 03/21/19 14:50 10/18/19 14:50 Oxygen Delivery Method Room Air Weight: 96.978 kg Body Mass Index (BMI) 36.6 Intake and Output for Last 24 Hours 03/19/19 03/20/19 03/21/19 23:59 23:59 23:59 Intake Total 360 / 360 Balance 360 / 360 Assessment/Plan All Active Problems (Last Reviewed 05/16/18 @ 14:58 by Raúl Villareal DO) Debility (Acute) Atrial fibrillation with RVR (Resolved) Clostridium difficile colitis (Resolved) Clostridium difficile infection (Resolved) Hypertension (Resolved) Rhabdomyolysis (Resolved) 68 year old female with past medical history significant for hypergranulating stage 4 sacral pressure ulcer, underwent debridement 03/17/[address] Hansen, admitted to TCU with debility, here for rehabilitation, strengthening, wound care, prior to discharge home alone. * Debility - PT/OT. * Pain - Tylenol 1000MG Q6H, Oxycodone 10MG Q4H PRN pain (6-10) * Bowel - Miralax 17GM daily, Senna/colace 2 tablets BID, Linzess 145MCG daily PRN. * Pneumonia vaccination - Administer Prevnar 13 and/or Pneumovax 23 as necessa ry. * DVT prophylaxis - Hold, on aspirin, diclofenac, recent postoperative anemia requiring transfusion. * Vitamin C deficiency - Vitamin C 500MG daily. * CV prophylaxis - Aspirin 81MG daily. * Sacral pressure ulcer infection - Keflex 500MG TID, Doxycycline 100MG BID, Flagyl 500MG TID, duration per Dr. Preston. * Anxiety - Diazepam 5MG 4x/day PRN. * Osteoarthritis - Diclofenac 50MG BID. * Nutrition - Ensure Enlive 120ML 4x/day, Teofilo 1 packet BID. * Vitamin D deficiency - D2 50,000 units per month. * Neuropathic pain - Gabapentin 300MG TID. * Iron deficiency anemia - Ferrex 150MG daily. * GI prophylaxis - Lactobacillus 1 tablet daily. * Hypothyroidism - Levothyroxine 25MCG daily. * Hypomagnesemia - Magnesium Oxide 400MG daily. * Hyperlipidemia - Lovaza 1GM daily. * Nausea - Zofran 4MG IV Q6H PRN, Phenergan 25MG Q4H PRN. * GERD - Pantoprazole 40MG daily. * Hypokalemia - K-Dur 40MEQ daily.
[2019-03-21] MEDS: Acetaminophen 500 MG Tablet 1000 MG PO (21:05)
[2019-03-21] MEDS: Cephalexin 500 MG Capsule PO (21:11)
[2019-03-21] MEDS: Doxycycline 100 MG CAPSULE PO (21:12)
[2019-03-21] MEDS: Gabapentin 300 MG Capsule PO (21:12)
[2019-03-21] MEDS: 0.9% Saline Lock 10 ML Syringe IV (21:14)
[2019-03-22] MEDS: Acetaminophen 500 MG Tablet 1000 MG PO ×4 (03:11→21:35)
[2019-03-22] MEDS: Omega-3 Acid Ethyl Esters 1 GM Capsule PO (05:25)
[2019-03-22] MEDS: Gabapentin 300 MG Capsule PO ×3 (05:25→21:35)
[2019-03-22] MEDS: Ascorbic Acid 500 MG Tablet PO (05:25)
[2019-03-22] MEDS: Levothyroxine 25 MCG TABLET PO (05:25)
[2019-03-22] MEDS: Cephalexin 500 MG Capsule PO ×3 (05:25→21:35)
[2019-03-22] MEDS: Magnesium Oxide 400 MG Tablet PO (05:25)
[2019-03-22] MEDS: Senna/Docusate Sodium 1 Tablet 2 TABLET PO (05:26)
[2019-03-22 05:42] LABS: Absolute Lymphocyte Count 2.25 X10^3/uL (0.83-4.51); Absolute Neutrophil Count 6.3 X10^3/uL (2.0-7.7); Basophil# 0.05 X10^3/uL; Basophil% 0.5 % (0-1); Eosinophil# 0.36 X10^3/uL; Eosinophils% 3.4 % (0-5); Hematocrit 32.5 % (37-47); Lymphocyte # 2.25 X10^3/ul (4.0); Lymphocyte % 21.5 % (19-41); Mean Corp Hgb Conc 30.8 g/dL (32-36); Mean Corpuscular Hgb 26.2 pg (27.0-32.0); Mean Corpuscular Volume 85.1 fL (81-99); Monocyte% 13.4 % (0-10); NRBC Flagged by Analyzer 0 % (0-5); Neutrophil # 6.34 X10^3/uL (2.7-7.7); Neutrophil % 60.4 % (47-70); Platelet Count 320 K/mm3 (150-450); RBC Distribution Width CV 17.1 % (11.6-14.6); RBC Distribution Width SD 51.6 fl (35.1-43.9); Red Blood Count 3.82 M/mm3 (4.2-5.4); White Blood Count 10.5 K/mm3 (4.4-11.0)
[2019-03-22 05:49] LABS: Erythrocyte Sedimentation Rate 76 mm/hr (0-30)
[2019-03-22 06:07] LABS: ALB/GLOB Ratio 0.7 RATIO (0.9-2.4); AST(SGOT) 18 U/L (15-37); Alanine Aminotransfer ALT/SGPT 31 U/L (13-56); Albumin, Serum 2.7 g/dL (3.2-5.0); Alkaline Phosphatase 113 U/L (45-117); Anion Gap 5 (5-15); BUN 25 mg/dL (7-18); BUN/Creat Ratio 42.4 RATIO (10-20); Calcium,Total 8.7 mg/dL (8.5-10.1); Chloride 109 mmol/L (98-107); Creatinine, Serum 0.59 mg/dL (0.55-1.02); EST Glomerular Filtration Rate 108 mL/min (>60); Est Glom Filt Rate - Afr Amer 131 mL/min (>60); Estimated Creatinine Clearance 47.14 ml/min; Globulin 3.8 g/dL (2.2-4.2); Glucose 91 mg/dL (74-106); Potassium 3.8 mmol/L (3.5-5.1); Protein, Total 6.5 g/dL (6.4-8.2); Sodium Level 142 mmol/L (136-145)
[2019-03-22] MEDS: Aspirin E.C. 81 MG Tablet PO (08:22)
[2019-03-22] MEDS: Iron Polysaccharide Complex 150 MG CAPSULE PO (08:22)
[2019-03-22] MEDS: metroNIDAZOLE 500 MG Tablet PO ×3 (08:22→16:57)
[2019-03-22] MEDS: Doxycycline 100 MG CAPSULE PO ×2 (09:11→21:35)
[2019-03-22] MEDS: Tuberculin,Purif.prot.deriv. 50 TU/ML Vial 5 ML ID (11:11)
[2019-03-22] MEDS: LINACLOTIDE 145 MCG CAPSULE PO (11:29)
[2019-03-22] MEDS: Pantoprazole Sodium 40 MG Tablet PO (13:41)
[2019-03-22 16:00] VITALS: BP 110/65; PULSE 93; RESP 18; TEMP 36.7; O2SAT 95
--- NOTE | 2019-03-22 17:42 | NURSING ---
pt requesting tylenol on her home regimen, orders changed on AUG per pt request.
[2019-03-22] MEDS: 0.9% Saline Lock 10 ML Syringe IV (21:53)
[2019-03-23] MEDS: Acetaminophen 500 MG Tablet 1000 MG PO ×4 (03:12→22:14)
[2019-03-23] MEDS: LINACLOTIDE 145 MCG CAPSULE PO (06:32)
[2019-03-23] MEDS: Gabapentin 300 MG Capsule PO ×3 (06:32→22:14)
[2019-03-23] MEDS: Levothyroxine 25 MCG TABLET PO (06:32)
[2019-03-23] MEDS: Cephalexin 500 MG Capsule PO ×3 (06:32→22:14)
[2019-03-23] MEDS: Senna/Docusate Sodium 1 Tablet 2 TABLET PO ×2 (06:32→16:44)
[2019-03-23] MEDS: Omega-3 Acid Ethyl Esters 1 GM Capsule PO (06:32)
[2019-03-23] MEDS: Ascorbic Acid 500 MG Tablet PO (06:32)
[2019-03-23] MEDS: Magnesium Oxide 400 MG Tablet PO (06:34)
[2019-03-23] MEDS: Iron Polysaccharide Complex 150 MG CAPSULE PO (08:29)
[2019-03-23] MEDS: Aspirin E.C. 81 MG Tablet PO (08:30)
[2019-03-23] MEDS: metroNIDAZOLE 500 MG Tablet PO ×3 (08:30→16:44)
[2019-03-23] MEDS: Doxycycline 100 MG CAPSULE PO ×2 (09:45→22:14)
[2019-03-23] MEDS: Pantoprazole Sodium 40 MG Tablet PO (14:14)
--- NOTE | 2019-03-23 14:29 | NURSING ---
pt request mag citrate d/t constipation. dr arriola updated and order entered
[2019-03-23] MEDS: Magnesium Citrate 300 ML PO (14:51)
[2019-03-23 15:37] VITALS: BP 102/50; PULSE 70; RESP 18; TEMP 36.9; O2SAT 92
--- NOTE | 2019-03-23 19:55 | NURSING ---
PICC dressing noted to be coming up in the corner with stat lock exposed. Sterile technique used per protocol to change dressing. 2cm exposed. Pt tolerated well. Pt resting in bed on Rt side with wound vac intact with good seal and suction at 150. Pt denied further needs. Call light in reach.
[2019-03-24] MEDS: Acetaminophen 500 MG Tablet 1000 MG PO ×4 (03:23→23:35)
[2019-03-24] MEDS: Magnesium Oxide 400 MG Tablet PO (06:54)
[2019-03-24] MEDS: Ascorbic Acid 500 MG Tablet PO (06:54)
[2019-03-24] MEDS: Levothyroxine 25 MCG TABLET PO (06:54)
[2019-03-24] MEDS: Omega-3 Acid Ethyl Esters 1 GM Capsule PO (06:54)
[2019-03-24] MEDS: Cephalexin 500 MG Capsule PO ×3 (06:54→21:57)
[2019-03-24] MEDS: Senna/Docusate Sodium 1 Tablet 2 TABLET PO (06:54)
[2019-03-24] MEDS: Gabapentin 300 MG Capsule PO ×3 (06:54→21:56)
[2019-03-24] MEDS: Aspirin E.C. 81 MG Tablet PO (08:06)
[2019-03-24] MEDS: metroNIDAZOLE 500 MG Tablet PO ×3 (08:06→17:13)
[2019-03-24] MEDS: Iron Polysaccharide Complex 150 MG CAPSULE PO (08:06)
[2019-03-24] MEDS: Doxycycline 100 MG CAPSULE PO ×2 (09:49→21:56)
--- NOTE | 2019-03-24 10:09 | PHA.CONS_ITS ---
<Fariha Shah - Last Filed: 03/24/19 10:09> Progress Note - Pharmacy Subjective: [] Objective: Allergies bee venom protein (honey bee) Allergy (Verified 03/12/19 08:46) Angioedema metaxalone [From Skelaxin] Allergy (Verified 03/12/19 08:46) Swelling Current Medications Generic Name Dose Route Start Last Admin Trade Name Freq PRN Reason Stop Dose Admin Acetaminophen 1,000 mg 03/22/19 21:00 03/24/19 09:45 Tylenol PO 1,000 mg 0300,0900,1500,2100 ELOISA Administration Ascorbic Acid 500 mg 03/22/19 06:00 03/24/19 06:54 Vitamin C PO 500 mg DAILY ELOISA Administration Aspirin 81 mg 03/22/19 08:00 03/24/19 08:06 Ecotrin PO 81 mg DAILY@0800 [facility] Administration Cephalexin 500 mg 03/21/19 22:00 03/24/19 06:54 Keflex PO 500 mg TID [facility] Administration Diazepam 5 mg 03/21/19 15:38 Valium PO 4X/DAY PRN PRN SPASMS Diclofenac Sodium 50 mg 03/21/19 17:00 03/24/19 08:05 Voltaren PO 50 mg BIDCM [facility] Administration Doxycycline Monohydrate 100 mg 03/21/19 22:00 03/24/19 09:49 Doxycycline PO 100 mg BID@1000,2200 [facility] Administration Ergocalciferol 50,000 unit 04/04/19 06:00 Vitamin D PO QMONTH@0600 ELO[facility] Gabapentin 300 mg 03/21/19 22:00 03/24/19 06:54 Neurontin PO 300 mg TID [facility] Administration Heparin Sodium (Beef Lung) 50 units 03/21/19 15:38 IV UD PRN HEPARIN FLUSH Lactobacillus Acidophilus 1 tablet 03/22/19 06:00 03/24/19 06:54 Acidophilus PO 1 tablet DAILY [facility] Administration Levothyroxine Sodium 25 mcg 03/22/19 06:00 03/24/19 06:54 Synthroid PO 25 mcg DAILY [facility] Administration Linaclotide 145 mcg 03/21/19 15:38 03/23/19 06:32 Linzess PO 145 mcg DAILY PRN Administration Constipation Magnesium Oxide 400 mg 03/22/19 06:00 03/24/19 06:54 Mag-Ox 400 PO 400 mg DAILY ELO[facility] Administration Metronidazole 500 mg 03/21/19 17:45 03/24/19 08:06 Flagyl PO 500 mg TIDCM [facility]LO[facility] Administration Nutritional Formula 1 packet 03/21/19 17:00 03/24/19 08:06 Te[place]ilo - [place] Flavor PO 1 packet BIDCM [facility]LO[facility] Administration Nutritional Formula (Lactose Free) 120 ml 03/21/19 17:00 03/24/19 06:55 Ensure Enlive PO Not Given 4X/DAY [facility] [id number]-[id number] Ethyl Esters 1 gm 03/22/19 06:00 03/24/19 06:54 Lovaza PO 1 gm DAILY ELO[facility] Administration Ondansetron HCl 4 mg 03/21/19 15:38 Zofran IV Q6H PRN PRN NAUSEA Oxycodone HCl 10 mg 03/21/19 15:38 Oxyir PO Q4H PRN PRN Pain Score 6-10/10 Pantoprazole Sodium 40 mg 03/22/19 14:00 03/23/19 14:14 Protonix PO 40 mg 1400 ELO[facility] Administration Polyethylene Glycol 17 gm 03/22/19 06:00 03/24/19 06:54 Miralax PO Not Given DAILY [facility] Polysaccharide Iron Complex 150 mg 03/22/19 08:00 03/24/19 08:06 Ferrex 150 PO 150 mg DAILYCM [facility] Administration Potassium Chloride 40 meq 03/22/19 07:45 03/24/19 08:05 K-Dur PO 40 meq DAILY@0745 [facility] Administration Promethazine HCl 25 mg 03/21/19 15:38 Phenergan Tablet PO Q4H PRN PRN NAUSEA/VOMITING Senna/Docusate Sodium 2 tablet 03/22/19 06:00 03/24/19 06:54 Senokot-S, Amanda-Colace PO 2 tablet BID [facility] Administration Sodium Chloride 10 - 40 ml 03/21/19 15:38 03/22/19 21:53 IV 30 ml UD PRN Administration PICC FLUSH Problem List (Last Reviewed 05/16/18 @ 14:58 by Raúl Villareal DO) Debility (Acute) Hypertension (Chronic) Osteomyelitis (Chronic) Atrial fibrillation (Chronic) Back pain (Chronic) Methicillin resistant Staph aureus culture positive (Chronic) Vital Signs Temp Pulse Resp BP Pulse Ox 98.4 F 70 18 102/50 L 92 03/23/19 15:37 03/23/19 15:37 03/23/19 15:37 03/23/19 15:37 03/23/19 15:37 Oxygen Delivery Method Room Air Weight: 96.978 kg Body Mass Index (BMI) 36.6 Sodium 142 mmol/L (136-145) 03/22/19 05:24 Potassium 3.8 mmol/L (3.5-5.1) 03/22/19 05:24 Chloride 109 mmol/L (98-107) H 03/22/19 05:24 Carbon Dioxide 28.0 mmol/L (21.0-32.0) 03/22/19 05:24 Anion Gap 5 (5-15) 03/22/19 05:24 BUN 25 mg/dL (7-18) H 03/22/19 05:24 Creatinine 0.59 mg/dL (0.55-1.02) 03/22/19 05:24 Est GFR (MDRD) Af Amer 131 mL/min (>60) 03/22/19 05:24 Est GFR (MDRD) Non-Af 108 mL/min (>60) 03/22/19 05:24 BUN/Creatinine Ratio 42.4 RATIO (10-20) H 03/22/19 05:24 Glucose 91 mg/dL (74-106) 03/22/19 05:24 Assessment/Plan: 1. Pain: acetaminophen 1000mg PO Q6H, oxycodone 10mg PO Q4H PRN pain (6-03/13). Please continue to monitor for S/S of increased pain and PRN usage. *2. Sacral pressure ulcer infection: cephalexin 500mg PO TID, doxycycline 100mg PO BID, metronidazole 500mg PO TID. Please consider adding in stop dates once patient has been seen by ID. Please continue to monitor for S/S of worsening infection and renal function. Thanks. 3. CV prophylaxis: aspirin 81mg PO DAILYCM. Please continue to monitor for S/S of bleeding. 4. GERD: pantoprazole 40mg PO daily. Please continue to monitor for S/S GERD. 5. Hypothyroidism: levothyroxine 25mcg PO daily. Last TSH WNL. Please continue to monitor for S/S of hypo/hyperthyroidism. *6. Hyperlipidemia: Lovaza 1gm PO daily. Last lipid panel from 07/2017. Please consider ordering a lipid panel now and then annually as clinically appropriate. Thanks. 7. Osteoarthritis: diclofenac 50mg PO BIDCM. Please continue to monitor for increased pain and renal function. 8. Neuropathic pain: gabapentin 300mg PO TID. Please continue to monitor for increased neuropathic pain and renal function. 9. Iron deficiency anemia: Ferrex 150mg PO DAILYCM. Please continue to monitor for dark stools and hemoglobin. 10. Hypokalemia: potassium chloride 40mEq PO daily. Please continue to monitor potassium levels. 11. Hypomagnesemia: magnesium oxide 400mg PO daily. Please continue to monitor magnesium levels. 12. GI prophylaxis: lactobacillus acidophilus 1T PO daily. Please continue to monitor for diarrhea. 13. Nausea: ondansetron 4mg IV Q6H PRN nausea, promethazine 25mg PO Q4H PRN nausea/vomiting. Please continue to monitor for nausea/vomiting. 14. Vitamin deficiencies: ascorbic acid 500mg PO daily, ergocalciferol 50,000units PO monthly. Please continue to monitor vitamin D levels. Psychotropic Medications: 1. Anxiety: diazepam 5mg PO four times daily PRN for anxiety. Patient has not received any doses. Please continue to monitor for anxiety and PRN usage. Unnecessary Medications: *Bowel Regimen: Miralax 17gm PO daily, senna/docusate 2T PO BID, linaclotide 145mcg PO daily PRN constipation. Patient has refused 3/3 doses of Miralax. Please consider switching from scheduled to PRN. Thanks. Please continue to monitor for constipation. Date of Note:: 03/24/19 - Provider Comments Provider responsibility: Provider responsible to enter orders to implement recommendations <Chema Sanchez Chi - Last Filed: 03/24/19 13:06> Progress Note - Pharmacy Subjective: [] Objective: Allergies bee venom protein (honey bee) Allergy (Verified 03/12/19 08:46) Angioedema metaxalone [From Skelaxin] Allergy (Verified 03/12/19 08:46) Swelling Current Medications Generic Name Dose Route Start Last Admin Trade Name Freq PRN Reason Stop Dose Admin Acetaminophen 1,000 mg 03/22/19 21:00 03/24/19 09:45 Tylenol PO 1,000 mg 0300,0900,1500,2100 ELOISA Administration Ascorbic Acid 500 mg 03/22/19 06:00 03/24/19 06:54 Vitamin C PO 500 mg DAILY ELO[facility] Administration Aspirin 81 mg 03/22/19 08:00 03/24/19 08:06 Ecotrin PO 81 mg DAILY@0800 [facility] Administration Cephalexin 500 mg 03/21/19 22:00 03/24/19 06:54 Keflex PO 500 mg TID ELOISA Administration Diazepam 5 mg 03/21/19 15:38 Valium PO 4X/DAY PRN PRN SPASMS Diclofenac Sodium 50 mg 03/21/19 17:00 03/24/19 08:05 Voltaren PO 50 mg BIDCM [facility]LO[facility] Administration Doxycycline Monohydrate 100 mg 03/21/19 22:00 03/24/19 09:49 Doxycycline PO 100 mg BID@1000,2200 [facility] Administration Ergocalciferol 50,000 unit 04/04/19 06:00 Vitamin D PO QMONTH@0600 [facility] Gabapentin 300 mg 03/21/19 22:00 03/24/19 06:54 Neurontin PO 300 mg TID [facility] Administration Heparin Sodium (Beef Lung) 50 units 03/21/19 15:38 IV UD PRN HEPARIN FLUSH Lactobacillus Acidophilus 1 tablet 03/22/19 06:00 03/24/19 06:54 Acidophilus PO 1 tablet DAILY [facility] Administration Levothyroxine Sodium 25 mcg 03/22/19 06:00 03/24/19 06:54 Synthroid PO 25 mcg DAILY [facility]LO[facility] Administration Linaclotide 145 mcg 03/21/19 15:38 03/23/19 06:32 Linzess PO 145 mcg DAILY PRN Administration Constipation Magnesium Oxide 400 mg 03/22/19 06:00 03/24/19 06:54 Mag-Ox 400 PO 400 mg DAILY ELOISA Administration Metronidazole 500 mg 03/21/19 17:45 03/24/19 11:32 Flagyl PO 500 mg TIDCM ELO[facility] Administration Nutritional Formula 1 packet 03/21/19 17:00 03/24/19 08:06 Teof[place] - [place] Flavor PO 1 packet BIDCM [facility] Administration Nutritional Formula (Lactose Free) 120 ml 03/21/19 17:00 03/24/19 11:29 Ensure Enlive PO 120 ml 4X/DAY [facility]LO[facility] Administration Ksyzk-1-Jagn Ethyl Esters 1 gm 03/22/19 06:00 03/24/19 06:54 Lovaza PO 1 gm DAILY [facility]LO[facility] Administration Ondansetron HCl 4 mg 03/21/19 15:38 Zofran IV Q6H PRN PRN NAUSEA Oxycodone HCl 10 mg 03/21/19 15:38 Oxyir PO Q4H PRN PRN Pain Score 6-10/10 Pantoprazole Sodium 40 mg 03/22/19 14:00 03/23/19 14:14 Protonix PO 40 mg 1400 ELOIAS Administration Polyethylene Glycol 17 gm 03/22/19 06:00 03/24/19 06:54 Miralax PO Not Given DAILY [facility] Polysaccharide Iron Complex 150 mg 03/22/19 08:00 03/24/19 08:06 Ferrex 150 PO 150 mg DAILYCM [facility] Administration Potassium Chloride 40 meq 03/22/19 07:45 03/24/19 08:05 K-Dur PO 40 meq DAILY@0745 ELOISA Administration Promethazine HCl 25 mg 03/21/19 15:38 Phenergan Tablet PO Q4H PRN PRN NAUSEA/VOMITING Senna/Docusate Sodium 2 tablet 03/22/19 06:00 03/24/19 06:54 Senokot-S, Amanda-Colace PO 2 tablet BID [facility] Administration Sodium Chloride 10 - 40 ml 03/21/19 15:38 03/22/19 21:53 IV 30 ml UD PRN Administration PICC FLUSH Problem List (Last Reviewed 05/16/18 @ 14:58 by Raúl Villareal DO) Debility (Acute) Hypertension (Chronic) Osteomyelitis (Chronic) Atrial fibrillation (Chronic) Back pain (Chronic) Methicillin resistant Staph aureus culture positive (Chronic) Vital Signs Temp Pulse Resp BP Pulse Ox 98.4 F 70 18 102/50 L 92 03/23/19 15:37 03/23/19 15:37 03/23/19 15:37 03/23/19 15:37 03/23/19 15:37 Oxygen Delivery Method Room Air Weight: 96.978 kg Body Mass Index (BMI) 36.6 Sodium 142 mmol/L (136-145) 03/22/19 05:24 Potassium 3.8 mmol/L (3.5-5.1) 03/22/19 05:24 Chloride 109 mmol/L (98-107) H 03/22/19 05:24 Carbon Dioxide 28.0 mmol/L (21.0-32.0) 03/22/19 05:24 Anion Gap 5 (5-15) 03/22/19 05:24 BUN 25 mg/dL (7-18) H 03/22/19 05:24 Creatinine 0.59 mg/dL (0.55-1.02) 03/22/19 05:24 Est GFR (MDRD) Af Amer 131 mL/min (>60) 03/22/19 05:24 Est GFR (MDRD) Non-Af 108 mL/min (>60) 03/22/19 05:24 BUN/Creatinine Ratio 42.4 RATIO (10-20) H 03/22/19 05:24 Glucose 91 mg/dL (74-106) 03/22/19 05:24 Assessment/Plan: Psychotropic Medications: Unnecessary Medications: Bowel Regimen: - Provider Comments Provider responsibility: Provider responsible to enter orders to implement recommendations Provider Comments to Recommendations by Pharmacy: Agree
--- NOTE | 2019-03-24 12:06 | PCM.PN.ID ---
Patient Problems: Active and Suspected Problems (Last Reviewed 05/16/18 @ 14:58 by Raúl Villareal DO) Debility (Acute) Subjective: Feeling well, no fever, no n/v/d. - Physical Exam Vitals/I&O's: Vital Signs Temp Pulse Resp BP Pulse Ox 98.4 F 70 18 102/50 L 92 03/23/19 15:37 03/23/19 15:37 03/23/19 15:37 03/23/19 15:37 03/23/19 15:37 Oxygen Delivery Method Room Air Weight: 96.978 kg Body Mass Index (BMI) 36.6 Intake and Output for Last 24 Hours 03/22/19 03/23/19 03/24/19 23:59 23:59 23:59 Intake Total 600 / 600 840 / 840 480 / 480 Output Total 650 / 650 1700 / 1700 600 / 600 Balance -50 / -50 -860 / -860 -120 / -120 General: Alert, Cooperative, No apparent distress Lungs: Clear to auscultation, Normal air movement Cardiovascular: Regular rate, Regular Rhythm, Murmur Abdomen: Soft, Non Tender, Non-Distended Skin: Ulcer/ Wound - wound vac in place Current Medications Acetaminophen (Tylenol) 1,000 mg PO 0300,0900,1500,2100 [facility] Last Admin: 03/24/19 09:45 Dose: 1,000 mg Documented by: Ascorbic Acid (Vitamin C) 500 mg PO DAILY [facility] Last Admin: 03/24/19 06:54 Dose: 500 mg Documented by: Aspirin (Ecotrin) 81 mg PO DAILY@0800 [facility] Last Admin: 03/24/19 08:06 Dose: 81 mg Documented by: Cephalexin (Keflex) 500 mg PO TID [facility] Last Admin: 03/24/19 06:54 Dose: 500 mg Documented by: Diazepam (Valium) 5 mg PO 4X/DAY PRN PRN PRN Reason: SPASMS [facility] Last Admin: 03/24/19 08:05 Dose: 50 mg Documented by: Doxycycline Monohydrate (Doxycycline) 100 mg PO BID@1000,2200 [facility] Last Admin: 03/24/19 09:49 Dose: 100 mg Documented by: Ergocalciferol (Vitamin D) 50,000 unit PO QMONTH@0600 [facility] Gabapentin (Neurontin) 300 mg PO TID [facility] Last Admin: 03/24/19 06:54 Dose: 300 mg Documented by: Heparin Sodium (Beef Lung) () 50 units IV UD PRN PRN Reason: HEPARIN FLUSH Lactobacillus Acidophilus (Acidophilus) 1 tablet PO DAILY [facility] Last Admin: 03/24/19 06:54 Dose: 1 tablet Documented by: Levothyroxine Sodium (Synthroid) 25 mcg PO DAILY [facility] Last Admin: 03/24/19 06:54 Dose: 25 mcg Documented by: Linaclotide (Linzess) 145 mcg PO DAILY PRN PRN Reason: Constipation Last Admin: 03/23/19 06:32 Dose: 145 mcg Documented by: Magnesium Oxide (Mag-Ox 400) 400 mg PO DAILY [facility] Last Admin: 03/24/19 06:54 Dose: 400 mg Documented by: Metronidazole (Flagyl) 500 mg PO TIDCM [facility] Last Admin: 03/24/19 11:32 Dose: 500 mg Documented by: Nutritional Formula (Teofilo - [place] Flavor) 1 packet PO BIDCM [facility] Last Admin: 03/24/19 08:06 Dose: 1 packet Documented by: Nutritional Formula (Lactose Free) (Ensure Enlive) 120 ml PO 4X/DAY [facility] Last Admin: 03/24/19 11:29 Dose: 120 ml Documented by: Ireuw-1-Vqav Ethyl Esters (Lovaza) 1 gm PO DAILY [facility] Last Admin: 03/24/19 06:54 Dose: 1 gm Documented by: Ondansetron HCl (Zofran) 4 mg IV Q6H PRN PRN PRN Reason: NAUSEA Oxycodone HCl (Oxyir) 10 mg PO Q4H PRN PRN PRN Reason: Pain Score 6-10/10 Pantoprazole Sodium (Protonix) 40 mg PO 1400 [facility] Last Admin: 03/23/19 14:14 Dose: 40 mg Documented by: Polyethylene Glycol (Miralax) 17 gm PO DAILY [facility] Last Admin: 03/24/19 06:54 Dose: Not Given Documented by: Polysaccharide Iron Complex (Ferrex 150) 150 mg PO DAILYCM [facility] Last Admin: 03/24/19 08:06 Dose: 150 mg Documented by: Potassium Chloride (K-Dur) 40 meq PO DAILY@0745 [facility] Last Admin: 03/24/19 08:05 Dose: 40 meq Documented by: Promethazine HCl (Phenergan Tablet) 25 mg PO Q4H PRN PRN PRN Reason: NAUSEA/VOMITING Senna/Docusate Sodium (Senokot-S, Amanda-Colace) 2 tablet PO BID [facility] Last Admin: 03/24/19 06:54 Dose: 2 tablet Documented by: Sodium Chloride () 10 - 40 ml IV UD PRN PRN Reason: PICC FLUSH Last Admin: 03/22/19 21:53 Dose: 30 ml Documented by: Medical Necessity - Tobacco Use Smoking Status: Former smoker Tobacco Use: Non-smoker Route of nutrition/ use of supplements: [] Nutritional Intake: [] IV Site: [] Grewal Catheter: [] - Assessment/Plan Antibiotics: [] Assessment/Plan: [] Active and Suspected Problems (Last Reviewed 05/16/18 @ 14:58 by Raúl Villareal DO) Debility (Acute) suspected sacral osteo - Now s/p OR 03/17/[address] Hansen. Bone cx neg, superficial cx with Corynebacteria striatum, anaerobes. Had been on doxy for several weeks prior to this surgery. Cont po doxy 100mg bid and keflex 500mg tid, flagyl; stop date 05/01/19. Bone path did show acute osteo. Will follow
[2019-03-24] MEDS: Pantoprazole Sodium 40 MG Tablet PO (14:07)
--- NOTE | 2019-03-24 14:52 | NURSING ---
wound photo: sacrum
[2019-03-24 15:40] VITALS: BP 117/52; PULSE 81; RESP 16; TEMP 36.8; O2SAT 96
--- NOTE | 2019-03-24 18:11 | PCM.PN.SRG ---
Patient Problems: Active and Suspected Problems (Last Reviewed 05/16/18 @ 14:58 by Raúl Villareal DO) Debility (Acute) Subjective: Postop #7 Patient is resting comfortably. - Physical Exam Vitals/I&O's: Vital Signs Temp Pulse Resp BP Pulse Ox 98.2 F 81 16 117/52 L 96 03/24/19 15:40 03/24/19 15:40 03/24/19 15:40 03/24/19 15:40 03/24/19 15:40 Oxygen Delivery Method Room Air Weight: 213 lb 12.8 oz Body Mass Index (BMI) 36.6 Intake and Output for Last 24 Hours 03/22/19 03/23/19 03/24/19 23:59 23:59 23:59 Intake Total 600 / 600 840 / 840 720 / 720 Output Total 650 / 650 1700 / 1700 600 / 600 Balance -50 / -50 -860 / -860 120 / 120 General: Alert, Oriented x3 HEENT: PERRLA, EOMI Oral: Moist Mucosa Neck: Supple Abdomen: Soft, Non-Distended Skin: Ulcer/ Wound - sacral wound is stable. Some granulation tissue seen. VAC changed today without difficulty. No more bleeding seen. Neurological: Cranial nerves II-XII grossly intact Psych/Mental Status: Normal Affect, Appropriate Current Medications Acetaminophen (Tylenol) 1,000 mg PO 0300,0900,1500,2100 [facility] Last Admin: 03/24/19 17:10 Dose: 1,000 mg Documented by: Ascorbic Acid (Vitamin C) 500 mg PO DAILY [facility] Last Admin: 03/24/19 06:54 Dose: 500 mg Documented by: Aspirin (Ecotrin) 81 mg PO DAILY@0800 [facility] Last Admin: 03/24/19 08:06 Dose: 81 mg Documented by: Cephalexin (Keflex) 500 mg PO TID [facility] Last Admin: 03/24/19 14:02 Dose: 500 mg Documented by: Diazepam (Valium) 5 mg PO 4X/DAY PRN PRN PRN Reason: SPASMS Diclofenac Sodium (Voltaren) 50 mg PO BIDCM [facility] Last Admin: 03/24/19 17:12 Dose: 50 mg Documented by: Doxycycline Monohydrate (Doxycycline) 100 mg PO BID@1000,2200 [facility] Last Admin: 03/24/19 09:49 Dose: 100 mg Documented by: Ergocalciferol (Vitamin D) 50,000 unit PO QMONTH@0600 [facility] Gabapentin (Neurontin) 300 mg PO TID [facility] Last Admin: 03/24/19 14:02 Dose: 300 mg Documented by: Heparin Sodium (Beef Lung) () 50 units IV UD PRN PRN Reason: HEPARIN FLUSH Lactobacillus Acidophilus (Acidophilus) 1 tablet PO DAILY [facility] Last Admin: 03/24/19 06:54 Dose: 1 tablet Documented by: Levothyroxine Sodium (Synthroid) 25 mcg PO DAILY [facility] Last Admin: 03/24/19 06:54 Dose: 25 mcg Documented by: Linaclotide (Linzess) 145 mcg PO DAILY PRN PRN Reason: Constipation Last Admin: 03/23/19 06:32 Dose: 145 mcg Documented by: Magnesium Oxide (Mag-Ox 400) 400 mg PO DAILY [facility] Last Admin: 03/24/19 06:54 Dose: 400 mg Documented by: Metronidazole (Flagyl) 500 mg PO TIDCM [facility] Last Admin: 03/24/19 17:13 Dose: 500 mg Documented by: Nutritional Formula (Teofilo - [place] Flavor) 1 packet PO BIDCM [facility] Last Admin: 03/24/19 17:11 Dose: 1 packet Documented by: Nutritional Formula (Lactose Free) (Ensure Enlive) 120 ml PO 4X/DAY [facility] Last Admin: 03/24/19 17:10 Dose: 120 ml Documented by: Msgpm-2-Sopy Ethyl Esters (Lovaza) 1 gm PO DAILY [facility] Last Admin: 03/24/19 06:54 Dose: 1 gm Documented by: Ondansetron HCl (Zofran) 4 mg IV Q6H PRN PRN PRN Reason: NAUSEA Oxycodone HCl (Oxyir) 10 mg PO Q4H PRN PRN PRN Reason: Pain Score 6-10/10 Pantoprazole Sodium (Protonix) 40 mg PO 1400 [facility] Last Admin: 03/24/19 14:07 Dose: 40 mg Documented by: Polyethylene Glycol (Miralax) 17 gm PO DAILY [facility] Last Admin: 03/24/19 06:54 Dose: Not Given Documented by: Polysaccharide Iron Complex (Ferrex 150) 150 mg PO DAILYCM [facility] Last Admin: 03/24/19 08:06 Dose: 150 mg Documented by: Potassium Chloride (K-Dur) 40 meq PO DAILY@0745 [facility] Last Admin: 03/24/19 08:05 Dose: 40 meq Documented by: Promethazine HCl (Phenergan Tablet) 25 mg PO Q4H PRN PRN PRN Reason: NAUSEA/VOMITING Senna/Docusate Sodium (Senokot-S, Amanda-Colace) 2 tablet PO BID [facility] Last Admin: 03/24/19 17:11 Dose: Not Given Documented by: Sodium Chloride () 10 - 40 ml IV UD PRN PRN Reason: PICC FLUSH Last Admin: 03/22/19 21:53 Dose: 30 ml Documented by: Medical Necessity - Tobacco Use Smoking Status: Former smoker Tobacco Use: Non-smoker Assessment/Plan All Active Problems (Last Reviewed 05/16/18 @ 14:58 by Raúl Villareal DO) Debility (Acute) Atrial fibrillation with RVR (Resolved) Clostridium difficile colitis (Resolved) Clostridium difficile infection (Resolved) Hypertension (Resolved) Rhabdomyolysis (Resolved) 1. Sacral pressure sore, Stage IV. 2. Osteomyelitis. 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 5. Severe hypergranulation tissue sacral pressure sore. 6. s/p excision sacral pressure sore, Stage IV, with partial ostectomy for osteomyelitis (71.5 cm2) and placement of AmnioFill placental connective tissue powder, 1000 mg. 7. Anemia of chronic disease, acute on chronic, blood loss anemia, improved after PRBC. VAC changed today. Wound is stable with no more evidence of bleeding. Some granulation tissue seen. Pathology showed acute osteomyelitis. She is presently on Doxycycline, Keflex, and Flagyl. Discussed the Pathology report with Dr. Preston. He wants to continue the oral antibiotics for now. She had been on antibiotics for several weeks preop as well. As long as the wound looks good and continues to improve, will stay with the po antibiotics. If the wound worsens in any way during the healing process, then repeat culture will be obtained. Will make a decision at that time regarding po versus IV antibiotics if necessary. Therefore, the PICC line can be pulled today. Prealbumin was 20.7. Encourage nutritional supplementation with protein to help the healing process. Repeat Hgb stable at 10.0 down from 10.1. Continue Iron supplementation. Followup at [facility] after discharge from TCU.
[2019-03-24 22:20] VITALS: BP 107/53; PULSE 81; RESP 14; O2SAT 94
--- NOTE | 2019-03-24 22:28 | NURSING ---
2210- order to D/C PICC. Pt placed in supine position and PICC removed per protocol. Pt using vagal manuever during removal, site covered with vaseline gauze, 4x4, and opsite. Pressure held to site for 5 minutes, no bleeding noted at site. site WNL without redness/drainage. Pt tolerated well. Pt educated to lay flat for 30 min and notify staff of any changes/SOB. Catheter tip intact with 45cm noted at tip. Call light within reach, will monitor.
[2019-03-25] MEDS: Magnesium Oxide 400 MG Tablet PO (05:38)
[2019-03-25] MEDS: Gabapentin 300 MG Capsule PO ×3 (05:38→21:20)
[2019-03-25] MEDS: Omega-3 Acid Ethyl Esters 1 GM Capsule PO (05:38)
[2019-03-25] MEDS: Ascorbic Acid 500 MG Tablet PO (05:38)
[2019-03-25] MEDS: Cephalexin 500 MG Capsule PO ×3 (05:39→21:19)
[2019-03-25] MEDS: Levothyroxine 25 MCG TABLET PO (05:39)
[2019-03-25] MEDS: Acetaminophen 500 MG Tablet 1000 MG PO ×4 (05:39→23:39)
[2019-03-25] MEDS: metroNIDAZOLE 500 MG Tablet PO ×3 (07:22→17:35)
[2019-03-25] MEDS: Iron Polysaccharide Complex 150 MG CAPSULE PO (07:22)
[2019-03-25] MEDS: Aspirin E.C. 81 MG Tablet PO (07:22)
[2019-03-25] MEDS: Doxycycline 100 MG CAPSULE PO ×2 (09:49→21:19)
--- NOTE | 2019-03-25 11:45 | NURSING ---
Resident voicing frustration over current tylenol time schedule. Is requesting they go back to 11-13-17 schedule.
[2019-03-25 15:13] VITALS: BP 108/65; PULSE 87; RESP 18; TEMP 36.7; O2SAT 94
[2019-03-25] MEDS: Pantoprazole Sodium 40 MG Tablet PO (15:13)
--- NOTE | 2019-03-25 17:20 | CHAPLAIN ---
Type of Pastoral Visit _x__ Initial Visit ___ Follow-up Visit ___ On-call Visit ___ General Patient Visit ___ Spiritual Assessment ___ Family Conference ___ Bereavement ___ Rapid Response ___ Code Blue ___ Other (describe below) Pastoral Care Referral From _x__ Patient ___ Family ___ Nurse ___ Physician ___ [employer] ___ [employer] And [employer]ic ___ Other (describe below) Sacrament/Intervention _x__ Active listening ___ Anointing ___ Church ___ Bereavement ___ Communion _x__ Mayra exploration ___ _x__ Life review _x__ Prayer ___ Reconciliation ___ Sacrament of Sick _x__ Supportive presence ___ Wedding ___ Other (describe below) Pastoral Comments patient was seen before in previous admission and so this was a follow up in some ways; pt describes her situation and has many disappointments in people and questions for God; pt is tearful during visit; pt welcomes visit and prayers;
--- NOTE | 2019-03-25 17:41 | NURSING ---
Catheter in place and hung below bladder. This RN has not emptied this shift so unable to smell if odor. No odor reported to her from other staff.
[2019-03-26] MEDS: Ascorbic Acid 500 MG Tablet PO (05:10)
[2019-03-26] MEDS: Cephalexin 500 MG Capsule PO ×3 (05:11→20:48)
[2019-03-26] MEDS: Gabapentin 300 MG Capsule PO ×3 (05:11→20:48)
[2019-03-26] MEDS: Omega-3 Acid Ethyl Esters 1 GM Capsule PO (05:12)
[2019-03-26] MEDS: Magnesium Oxide 400 MG Tablet PO (05:12)
[2019-03-26] MEDS: Levothyroxine 25 MCG TABLET PO (05:13)
[2019-03-26] MEDS: Acetaminophen 500 MG Tablet 1000 MG PO ×4 (05:40→23:41)
[2019-03-26] MEDS: metroNIDAZOLE 500 MG Tablet PO ×3 (07:57→16:55)
[2019-03-26] MEDS: Iron Polysaccharide Complex 150 MG CAPSULE PO (07:57)
[2019-03-26] MEDS: Aspirin E.C. 81 MG Tablet PO (07:57)
--- NOTE | 2019-03-26 09:54 | CASEMGMT ---
Social Work IDT met with patient for care plan meeting. Discussed patient's progress in therapy. Pt is completing 5 steps CGA, walking 165 ft with rollator, SBA transfers, independent with ADLs. Pt is on a wound vac. Explained Medicare benefit. Will continue to follow. JOSE ALEJANDRO DumontW
[2019-03-26] MEDS: Doxycycline 100 MG CAPSULE PO ×2 (10:46→20:47)
[2019-03-26] MEDS: Pantoprazole Sodium 40 MG Tablet PO (13:05)
[2019-03-26 15:55] VITALS: BP 96/38; PULSE 84; RESP 20; TEMP 36.4; O2SAT 94
[2019-03-26] MEDS: Senna/Docusate Sodium 1 Tablet 2 TABLET PO (16:55)
--- NOTE | 2019-03-26 23:11 | PCA ---
Patient refused all PM care and catheter care tonight. Patient has been self transferring without calling out for help and emptying her Grewal catheter without informing of output. Nurse was made aware.
[2019-03-27] MEDS: Omega-3 Acid Ethyl Esters 1 GM Capsule PO (05:45)
[2019-03-27] MEDS: Cephalexin 500 MG Capsule PO ×3 (05:45→21:29)
[2019-03-27] MEDS: Gabapentin 300 MG Capsule PO ×3 (05:45→21:29)
[2019-03-27] MEDS: Acetaminophen 500 MG Tablet 1000 MG PO ×3 (05:45→17:59)
[2019-03-27] MEDS: Levothyroxine 25 MCG TABLET PO (05:46)
[2019-03-27] MEDS: Magnesium Oxide 400 MG Tablet PO (05:46)
[2019-03-27] MEDS: Ascorbic Acid 500 MG Tablet PO (05:47)
[2019-03-27] MEDS: Iron Polysaccharide Complex 150 MG CAPSULE PO (08:01)
[2019-03-27] MEDS: Aspirin E.C. 81 MG Tablet PO (08:02)
[2019-03-27] MEDS: metroNIDAZOLE 500 MG Tablet PO ×3 (08:02→17:51)
--- NOTE | 2019-03-27 08:07 | NURSING ---
pt wound vac canister almost full this AM, new drsg was applied by wound nurse yesterday and increased drng noted late evening approx 6:30p last night. will update ivana wound nurse.
[2019-03-27] MEDS: Doxycycline 100 MG CAPSULE PO ×2 (14:15→21:30)
[2019-03-27] MEDS: Pantoprazole Sodium 40 MG Tablet PO (14:16)
--- NOTE | 2019-03-27 15:16 | NURSING ---
wound VAC canister changed. there was a large amount of serosanguineous drainage noted. Pt states she had a large amount of bleeding from the wound last evening after she had been up in the chair for a while. wound VAC dressing intact. will change dressing tomorrow.
[2019-03-27 15:31] VITALS: BP 99/60; PULSE 80; RESP 16; TEMP 36.8; O2SAT 97
[2019-03-27] MEDS: Senna/Docusate Sodium 1 Tablet 2 TABLET PO (17:51)
[2019-03-27 21:34] VITALS: O2SAT 97
[2019-03-28] MEDS: Acetaminophen 500 MG Tablet 1000 MG PO ×4 (00:05→18:00)
[2019-03-28] MEDS: Cephalexin 500 MG Capsule PO ×3 (06:24→20:59)
[2019-03-28] MEDS: Magnesium Oxide 400 MG Tablet PO (06:24)
[2019-03-28] MEDS: Gabapentin 300 MG Capsule PO ×3 (06:24→20:59)
[2019-03-28] MEDS: Omega-3 Acid Ethyl Esters 1 GM Capsule PO (06:24)
[2019-03-28] MEDS: Ascorbic Acid 500 MG Tablet PO (06:24)
[2019-03-28] MEDS: Levothyroxine 25 MCG TABLET PO (06:24)
[2019-03-28] MEDS: Senna/Docusate Sodium 1 Tablet 2 TABLET PO ×2 (06:25→17:16)
[2019-03-28] MEDS: metroNIDAZOLE 500 MG Tablet PO ×3 (08:01→17:16)
[2019-03-28] MEDS: Aspirin E.C. 81 MG Tablet PO (08:01)
[2019-03-28] MEDS: Iron Polysaccharide Complex 150 MG CAPSULE PO (08:01)
[2019-03-28] MEDS: Doxycycline 100 MG CAPSULE PO ×2 (09:47→20:59)
[2019-03-28] MEDS: Pantoprazole Sodium 40 MG Tablet PO (13:03)
--- NOTE | 2019-03-28 13:06 | NURSING ---
wound photo: sacrum
[2019-03-28 15:51] VITALS: BP 127/73; PULSE 102; RESP 20; TEMP 36.7; O2SAT 95
[2019-03-29] MEDS: Acetaminophen 500 MG Tablet 1000 MG PO ×4 (00:21→18:10)
[2019-03-29] MEDS: Cephalexin 500 MG Capsule PO ×3 (06:25→20:48)
[2019-03-29] MEDS: Ascorbic Acid 500 MG Tablet PO (06:25)
[2019-03-29] MEDS: Senna/Docusate Sodium 1 Tablet 2 TABLET PO (06:25)
[2019-03-29] MEDS: Gabapentin 300 MG Capsule PO ×3 (06:25→20:48)
[2019-03-29] MEDS: Levothyroxine 25 MCG TABLET PO (06:25)
[2019-03-29] MEDS: Omega-3 Acid Ethyl Esters 1 GM Capsule PO (06:25)
[2019-03-29] MEDS: Magnesium Oxide 400 MG Tablet PO (06:25)
[2019-03-29] MEDS: Iron Polysaccharide Complex 150 MG CAPSULE PO (07:49)
[2019-03-29] MEDS: metroNIDAZOLE 500 MG Tablet PO ×3 (07:50→17:35)
[2019-03-29] MEDS: Aspirin E.C. 81 MG Tablet PO (07:50)
[2019-03-29 08:35] LABS: Absolute Lymphocyte Count 1.65 X10^3/uL (0.83-4.51); Absolute Neutrophil Count 10.2 X10^3/uL (2.0-7.7); Basophil# 0.06 X10^3/uL; Basophil% 0.4 % (0-1); Eosinophil# 0.26 X10^3/uL; Eosinophils% 1.9 % (0-5); Hemoglobin 10.4 g/dL (12.0-15.0); Lymphocyte # 1.65 X10^3/ul (4.0); Mean Corp Hgb Conc 29.7 g/dL (32-36); Mean Corpuscular Hgb 26.2 pg (27.0-32.0); Mean Corpuscular Volume 88.2 fL (81-99); Mean Platelet Vol. 8.9 fl (6.2-12.0); Monocyte# 1.56 X10^3/uL; Monocyte% 11.3 % (0-10); NRBC Flagged by Analyzer 0 % (0-5); Neutrophil # 10.16 X10^3/uL (2.7-7.7); Neutrophil % 73.9 % (47-70); POSITIVE DIFFERENTIAL YES; Platelet Count 433 K/mm3 (150-450); RBC Distribution Width CV 17.1 % (11.6-14.6); RBC Distribution Width SD 54.5 fl (35.1-43.9); Red Blood Count 3.97 M/mm3 (4.2-5.4); White Blood Count 13.8 K/mm3 (4.4-11.0)
[2019-03-29 08:49] LABS: Differential Indicated SCAN CRITERIA MET
[2019-03-29 08:59] LABS: Erythrocyte Sedimentation Rate 65 mm/hr (0-30)
[2019-03-29 09:24] LABS: Hypochromasia 1+; Platelet Estimate ADEQUATE (ADEQ); Polychromasia RARE
[2019-03-29 09:26] LABS: ALB/GLOB Ratio 0.7 RATIO (0.9-2.4); AST(SGOT) 11 U/L (15-37); Alanine Aminotransfer ALT/SGPT 18 U/L (13-56); Alkaline Phosphatase 77 U/L (45-117); Anion Gap 5 (5-15); BUN 22 mg/dL (7-18); BUN/Creat Ratio 35.5 RATIO (10-20); Calcium,Total 8.9 mg/dL (8.5-10.1); Chloride 108 mmol/L (98-107); Creatinine, Serum 0.62 mg/dL (0.55-1.02); EST Glomerular Filtration Rate 102 mL/min (>60); Est Glom Filt Rate - Afr Amer 123 mL/min (>60); Estimated Creatinine Clearance 47.14 ml/min; Globulin 4.1 g/dL (2.2-4.2); Glucose 101 mg/dL (74-106); Potassium 3.8 mmol/L (3.5-5.1); Protein, Total 7.1 g/dL (6.4-8.2); Sodium Level 141 mmol/L (136-145)
[2019-03-29] MEDS: Doxycycline 100 MG CAPSULE PO ×2 (11:05→20:49)
[2019-03-29] MEDS: LINACLOTIDE 145 MCG CAPSULE PO (11:05)
[2019-03-29] MEDS: Pantoprazole Sodium 40 MG Tablet PO (14:07)
[2019-03-29 15:51] VITALS: BP 122/56; PULSE 88; RESP 18; TEMP 37.7; O2SAT 95
[2019-03-30] MEDS: Acetaminophen 500 MG Tablet 1000 MG PO ×4 (00:22→18:31)
[2019-03-30] MEDS: Gabapentin 300 MG Capsule PO ×3 (06:17→20:56)
[2019-03-30] MEDS: Magnesium Oxide 400 MG Tablet PO (06:18)
[2019-03-30] MEDS: Levothyroxine 25 MCG TABLET PO (06:18)
[2019-03-30] MEDS: Cephalexin 500 MG Capsule PO ×3 (06:19→20:57)
[2019-03-30] MEDS: Ascorbic Acid 500 MG Tablet PO (06:19)
[2019-03-30] MEDS: Omega-3 Acid Ethyl Esters 1 GM Capsule PO (06:19)
[2019-03-30] MEDS: Aspirin E.C. 81 MG Tablet PO (07:54)
[2019-03-30] MEDS: Iron Polysaccharide Complex 150 MG CAPSULE PO (07:54)
[2019-03-30] MEDS: metroNIDAZOLE 500 MG Tablet PO ×3 (07:54→17:55)
[2019-03-30] MEDS: Doxycycline 100 MG CAPSULE PO ×2 (10:47→20:56)
[2019-03-30] MEDS: Pantoprazole Sodium 40 MG Tablet PO (14:51)
[2019-03-30 15:54] VITALS: BP 115/83; PULSE 83; RESP 18; TEMP 36.9; O2SAT 95
[2019-03-30] MEDS: Senna/Docusate Sodium 1 Tablet 2 TABLET PO (17:56)
[2019-03-31] MEDS: Acetaminophen 500 MG Tablet 1000 MG PO ×4 (00:26→18:33)
[2019-03-31] MEDS: Senna/Docusate Sodium 1 Tablet 2 TABLET PO ×2 (06:25→18:10)
[2019-03-31] MEDS: Levothyroxine 25 MCG TABLET PO (06:26)
[2019-03-31] MEDS: Magnesium Oxide 400 MG Tablet PO (06:26)
[2019-03-31] MEDS: Gabapentin 300 MG Capsule PO ×3 (06:27→21:29)
[2019-03-31] MEDS: Omega-3 Acid Ethyl Esters 1 GM Capsule PO (06:27)
[2019-03-31] MEDS: Cephalexin 500 MG Capsule PO ×3 (06:28→21:29)
[2019-03-31] MEDS: Ascorbic Acid 500 MG Tablet PO (06:28)
[2019-03-31] MEDS: Iron Polysaccharide Complex 150 MG CAPSULE PO (08:34)
[2019-03-31] MEDS: Aspirin E.C. 81 MG Tablet PO (08:34)
[2019-03-31] MEDS: metroNIDAZOLE 500 MG Tablet PO ×3 (08:34→18:09)
--- NOTE | 2019-03-31 09:41 | NURSING ---
dr arriola aware of labs, no new orders.
[2019-03-31] MEDS: Doxycycline 100 MG CAPSULE PO ×2 (11:19→21:28)
[2019-03-31 11:45] LABS: Pathologist Review Reviewed
--- NOTE | 2019-03-31 12:00 | PCM.PN.ID ---
Patient Problems: Active and Suspected Problems (Last Reviewed 05/16/18 @ 14:58 by Raúl Villareal DO) Debility (Acute) Subjective: Feeling ok, feeling bored, no fever, no n/v/d. - Physical Exam Vitals/I&O's: Vital Signs Temp Pulse Resp BP Pulse Ox 98.5 F 83 18 115/83 H 95 03/30/19 15:54 03/30/19 15:54 03/30/19 15:54 03/30/19 15:54 03/30/19 15:54 Oxygen Delivery Method Room Air Weight: 97.296 kg Body Mass Index (BMI) 36.6 Intake and Output for Last 24 Hours 03/29/19 03/30/19 03/31/19 23:59 23:59 23:59 Intake Total 720 / 720 1080 / 1080 360 / 360 Output Total 3000 / 3000 4000 / 4000 1000 / 1000 Balance -2280 / -2280 -2920 / -2920 -640 / -640 General: Alert, Cooperative, No apparent distress Lungs: Clear to auscultation, Normal air movement Cardiovascular: Regular rate, Regular Rhythm Abdomen: Soft, Non Tender, Non-Distended Skin: Ulcer/ Wound - wound vac in place Laboratory Results 03/29/19 08:04: Diff Path Review Reviewed Current Medications Acetaminophen (Tylenol) 1,000 mg PO Q6 [facility] Last Admin: 03/31/19 06:27 Dose: 1,000 mg Documented by: Ascorbic Acid (Vitamin C) 500 mg PO DAILY [facility] Last Admin: 03/31/19 06:28 Dose: 500 mg Documented by: Aspirin (Ecotrin) 81 mg PO DAILY@0800 [facility] Last Admin: 03/31/19 08:34 Dose: 81 mg Documented by: Calcium Carbonate (Tums) 1,000 mg PO Q4H PRN PRN PRN Reason: INDIGESTION Cephalexin (Keflex) 500 mg PO TID [facility] Last Admin: 03/31/19 06:28 Dose: 500 mg Documented by: Diazepam (Valium) 5 mg PO 4X/DAY PRN PRN PRN Reason: SPASMS Diclofenac Sodium (Voltaren) 50 mg PO BIDCM [facility] Last Admin: 03/31/19 08:34 Dose: 50 mg Documented by: Doxycycline Monohydrate (Doxycycline) 100 mg PO BID@1000,2200 [facility] Last Admin: 03/31/19 11:19 Dose: 100 mg Documented by: Ergocalciferol (Vitamin D) 50,000 unit PO QMONTH@0600 [facility] Gabapentin (Neurontin) 300 mg PO TID [facility] Last Admin: 03/31/19 06:27 Dose: 300 mg Documented by: Heparin Sodium (Beef Lung) () 50 units IV UD PRN PRN Reason: HEPARIN FLUSH Lactobacillus Acidophilus (Acidophilus) 1 tablet PO DAILY [facility] Last Admin: 03/31/19 06:29 Dose: 1 tablet Documented by: Levothyroxine Sodium (Synthroid) 25 mcg PO DAILY [facility] Last Admin: 03/31/19 06:26 Dose: 25 mcg Documented by: Linaclotide (Linzess) 145 mcg PO DAILY PRN PRN Reason: Constipation Last Admin: 03/29/19 11:05 Dose: 145 mcg Documented by: Magnesium Oxide (Mag-Ox 400) 400 mg PO DAILY [facility] Last Admin: 03/31/19 06:26 Dose: 400 mg Documented by: Metronidazole (Flagyl) 500 mg PO TIDCM [facility] Last Admin: 03/31/19 08:34 Dose: 500 mg Documented by: Nutritional Formula (Teofilo - [place] Flavor) 1 packet PO BIDCM [facility] Last Admin: 03/31/19 10:52 Dose: 1 packet Documented by: Nutritional Formula (Lactose Free) (Ensure Enlive) 120 ml PO 4X/DAY [facility] Last Admin: 03/31/19 06:28 Dose: Not Given Documented by: [id number] Ethyl Esters (Lovaza) 1 gm PO DAILY [facility] Last Admin: 03/31/19 06:27 Dose: 1 gm Documented by: Ondansetron HCl (Zofran) 4 mg IV Q6H PRN PRN PRN Reason: NAUSEA Oxycodone HCl (Oxyir) 10 mg PO Q4H PRN PRN PRN Reason: Pain Score 6-10/10 Pantoprazole Sodium (Protonix) 40 mg PO 1400 [facility] Last Admin: 03/30/19 14:51 Dose: 40 mg Documented by: Polyethylene Glycol (Miralax) 17 gm PO DAILY [facility] Last Admin: 03/31/19 06:27 Dose: Not Given Documented by: Polysaccharide Iron Complex (Ferrex 150) 150 mg PO DAILYCM [facility] Last Admin: 03/31/19 08:34 Dose: 150 mg Documented by: Potassium Chloride (K-Dur) 40 meq PO DAILY@0745 [facility] Last Admin: 03/31/19 08:34 Dose: 40 meq Documented by: Promethazine HCl (Phenergan Tablet) 25 mg PO Q4H PRN PRN PRN Reason: NAUSEA/VOMITING Senna/Docusate Sodium (Senokot-S, Amanda-Colace) 2 tablet PO BID [facility] Last Admin: 03/31/19 06:25 Dose: 2 tablet Documented by: Sodium Chloride () 10 - 40 ml IV UD PRN PRN Reason: PICC FLUSH Last Admin: 03/22/19 21:53 Dose: 30 ml Documented by: Medical Necessity - Tobacco Use Smoking Status: Former smoker Tobacco Use: Non-smoker Route of nutrition/ use of supplements: [] Nutritional Intake: [] IV Site: [] Grewal Catheter: [] - Assessment/Plan Antibiotics: [] Assessment/Plan: [] Active and Suspected Problems (Last Reviewed 05/16/18 @ 14:58 by Raúl Villareal DO) Debility (Acute) suspected sacral osteo - Now s/p OR 03/17/[address] Hansen. Bone cx neg, superficial cx with Corynebacteria striatum, anaerobes. Had been on doxy for several weeks prior to this surgery. Cont po doxy 100mg bid and keflex 500mg tid, flagyl. Bone path did show acute osteo. She is tolerating abx without issue, ESR improving; will extend course at least another week past planned stop date 03/31/19. Will follow
[2019-03-31] MEDS: Pantoprazole Sodium 40 MG Tablet PO (14:48)
[2019-03-31 16:00] VITALS: BP 136/67; PULSE 76; RESP 18; TEMP 36.9; O2SAT 97
--- NOTE | 2019-03-31 22:41 | NURSING ---
2200- wound vac canister changed tonight, 460mL serosanguineous drainage. Dressing to sacrum dry/intact and good seal on wound vac noted.
[2019-04-01] MEDS: Acetaminophen 500 MG Tablet 1000 MG PO ×4 (00:31→18:35)
[2019-04-01] MEDS: Senna/Docusate Sodium 1 Tablet 2 TABLET PO ×2 (06:33→17:42)
[2019-04-01] MEDS: Omega-3 Acid Ethyl Esters 1 GM Capsule PO (06:33)
[2019-04-01] MEDS: Ascorbic Acid 500 MG Tablet PO (06:33)
[2019-04-01] MEDS: Cephalexin 500 MG Capsule PO ×3 (06:33→21:23)
[2019-04-01] MEDS: Gabapentin 300 MG Capsule PO ×3 (06:33→21:23)
[2019-04-01] MEDS: Levothyroxine 25 MCG TABLET PO (06:33)
[2019-04-01] MEDS: Magnesium Oxide 400 MG Tablet PO (06:33)
[2019-04-01] MEDS: Iron Polysaccharide Complex 150 MG CAPSULE PO (08:12)
[2019-04-01] MEDS: metroNIDAZOLE 500 MG Tablet PO ×3 (08:12→17:42)
[2019-04-01] MEDS: Aspirin E.C. 81 MG Tablet PO (08:13)
[2019-04-01] MEDS: Doxycycline 100 MG CAPSULE PO ×2 (10:51→21:23)
--- NOTE | 2019-04-01 13:14 | CASEMGMT ---
Addendum entered by Natalie Fry 04/01/19 13:16: Added [facility] SW to follow for continued supportive counseling for mood. Original Note: Social Work Spoke with patient about dicharge plans and pt is adlib in room. Pt is agreeable to DC home 04/09. Pt used [facility] prior - referral made to restart SN services. No DME needs. Notified wound nurse for wound vac orders. Pt will DC home with catheter as well. Plan: DC home 04/09 with [facility] SN and wound vac. Natalie Fry, JOSE ALEJANDRO TODDW
[2019-04-01] MEDS: Pantoprazole Sodium 40 MG Tablet PO (13:18)
--- NOTE | 2019-04-01 13:32 | NURSING ---
Dr Hansen notified of pt DC next week, wants her to follow up at wound center 1 week from DC
--- NOTE | 2019-04-01 15:20 | CHAPLAIN ---
Type of Pastoral Visit ___ Initial Visit _x__ Follow-up Visit ___ On-call Visit ___ General Patient Visit ___ Spiritual Assessment ___ Family Conference ___ Bereavement ___ Rapid Response ___ Code Blue ___ Other (describe below) Pastoral Care Referral From _x__ Patient ___ Family ___ Nurse ___ Physician ___ [facility] ___ Educational Guidance Counselor ___ Other (describe below) Sacrament/Intervention _x__ Active listening ___ Anointing ___ Church ___ Bereavement ___ Communion _x__ Mayra exploration ___ _x__ Life review _x__ Prayer ___ Reconciliation ___ Sacrament of Sick _x__ Supportive presence ___ Wedding ___ Other (describe below) Pastoral Comments long conversation again with this patient; pt does have questions on spiritual matters; pt does bring up her friendship that disappoints her and not wanting to ask for help because I don't want to appear I need a pity libertarian;
[2019-04-01 15:41] VITALS: BP 118/55; PULSE 78; RESP 14; TEMP 36.3; O2SAT 94
--- NOTE | 2019-04-01 20:04 | PCM.DC ---
- Discharge Diagnoses Current Active Problems: Current Active and Chronic Problems (Last Reviewed 05/16/18 @ 14:58 by Raúl Villareal DO) Debility (Acute) Hypertension (Chronic) Osteomyelitis (Chronic) Atrial fibrillation (Chronic) Back pain (Chronic) Methicillin resistant Staph aureus culture positive (Chronic) You will use the following diet at home:: No restrictions, Regular Your food should be the consistency of: Regular Your liquids should be the consistency of: Regular/Thin Discharge Activity: Return to Normal Activity, May Shower, Use Walker Weight Bearing Status: Weight bearing as tolerated Call your doctor if you observe: Fever of 101 or Higher, Inability to urinate, Inability to have a bowel movement, Shortness of breath, Chest pain, Uncontrolled pain Allergies/Adverse Reactions: Allergies bee venom protein (honey bee) Allergy (Verified 03/12/19 08:46) Angioedema metaxalone [From Skelaxin] Allergy (Verified 03/12/19 08:46) Swelling Medications to take at Discharge Levothyroxine [Synthroid] 25 mcg PO DAILY 03/02/17 cholecalciferol (vitamin D3) 50,000 unit capsule 50,000 unit PO QMONTH 08/02/17 Ascorbic Acid 500 mg PO DAILY 08/21/17 Potassium Chloride [K-Dur] 40 meq PO DAILY 12/26/17 Omeprazole 40 mg PO 1400 04/11/18 omega-3 fatty acids 1,000 mg capsule 1,000 mg PO DAILY 04/19/18 Linacolotide [Linzess] 145 mcg PO DAILY PRN capsule 07/08/18 Gabapentin [Neurontin] 300 mg PO TID 09/02/18 Iron Polysaccharide Complex [Ferrex 150] 150 mg PO DAILYCM #30 capsule 09/12/18 Acetaminophen [Tylenol] 1,000 mg PO Q6H 03/12/19 Aspirin [Aspir 81] 81 mg PO DAILY 03/12/19 Lactobacillus Acidophilus/Fos [Acidophilus Probiotic Tablet] 1 ea PO DAILY 03/12/19 Magnesium Oxide [Magnesium] 500 mg PO DAILY 03/12/19 Calcium Carbonate [Tums] 1,000 mg PO Q4H PRN PRN tab 04/01/19 Nutritional Supplement [Teofilo - ORANGE FLAVOR] 1 packet PO BIDCM #60 packet 04/01/19 The following prescriptions were given: Nutritional Supplement [Teofilo - ORANGE FLAVOR] 1 packet PO BIDCM #60 packet Transmission Status: Pending to [facility]/pharmacy #[id number] Primary Care Physician: Chema Sanchez Chi, MD [Primary Care Provider] - Please follow up with your Primary Care Physician in: 1 week. Test Results: Test results from this visit will be discussed in further detail at your follow-up appointment, if applicable. Please Follow Up With: Wound Center (Ok to see Dr Santiago or Dora if Dr Hansen not available) When: [phone] Please Follow Up With: Chema Sanchez Chi, MD When: [phone] Proposed Discharge Date: 04/09/19
--- NOTE | 2019-04-01 20:06 | PCM.DC.SUM ---
Discharge Date and Diagnosis - Problem List Patient Problems: Active and Suspected Problems (Last Reviewed 05/16/18 @ 14:58 by Raúl Villareal DO) Debility (Acute) Date of Admission: 03/21/19 Date of Discharge: 04/09/19 - Primary Discharge Diagnosis Active and Suspected Problems (Last Reviewed 05/16/18 @ 14:58 by Raúl Villareal DO) Debility (Acute) - Secondary Discharge Diagnosis Chronic Problems (Last Reviewed 05/16/18 @ 14:58 by Raúl Villareal DO) Hypertension (Chronic) Osteomyelitis (Chronic) Atrial fibrillation (Chronic) Back pain (Chronic) Methicillin resistant Staph aureus culture positive (Chronic) MRSA (methicillin resistant Staphylococcus aureus) infection (Chronic) Osteomyelitis of pelvis (Chronic) Constipation (Chronic) Hypergranulation (Chronic) Acute osteomyelitis of sacrum (Chronic) Surgical wound present (Chronic) Secondary pulmonary arterial hypertension (Chronic) Non-rheumatic tricuspid valve insufficiency (Chronic) Preop cardiovascular exam (Chronic) Abnormal electrocardiogram (Chronic) Essential (primary) hypertension (Chronic) Colovaginal fistula (Chronic) Non-healing surgical wound (Chronic) Pressure ulcer of right heel, stage 3 (Chronic) Pressure ulcer of left heel, stage 3 (Chronic) Morbid obesity with BMI of 40.0-44.9, adult (Chronic) GERD (gastroesophageal reflux disease) (Chronic) Depression (Chronic) Hypothyroidism (Chronic) Pressure ulcer of sacral region, stage 4 (Chronic) Failure to thrive (Chronic) Neuropathy (Chronic) Hospital Course and Treatment Imaging Results: 03/21/19 15:36 Diet: Regular Diet Is pt able to select menu?: Yes Labs (Last 48 Hours) 03/29/19 08:04 Diff Path Review Reviewed Consultations 03/21/19 17:54 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 Procedures: None Summary of Care Provided: The patient is a 68 year old Female with past medical history significant for hypergranulating stage 4 sacral pressure ulcer, underwent debridement 03/17/[address] Hansen, admitted to TCU with debility, here for rehabilitation, strengthening, wound care, prior to discharge home alone. Finished course of antibiotics for sacral osteomyelitis per Dr. Preston. Discharge home alone, [facility], Wound Vac, indwelling maier catheter. Patient Problems: Active and Suspected Problems (Last Reviewed 05/16/18 @ 14:58 by Raúl Villareal DO) Debility (Acute) - Physical Exam Vitals/I&O's: Vital Signs Temp Pulse Resp BP Pulse Ox 97.4 F L 78 14 118/55 L 94 04/01/19 15:41 04/01/19 15:41 04/01/19 15:41 04/01/19 15:41 04/01/19 15:41 Oxygen Delivery Method Room Air Weight: 99.11 kg Body Mass Index (BMI) 36.6 Intake and Output for Last 24 Hours 03/30/19 03/31/19 04/01/19 23:59 23:59 23:59 Intake Total 1080 / 1080 960 / 960 720 / 720 Output Total 4000 / 4000 2160 / 2160 Balance -2920 / -2920 -1200 / -1200 720 / 720 Current Medications Acetaminophen (Tylenol) 1,000 mg PO Q6 [facility] Last Admin: 04/01/19 18:35 Dose: 1,000 mg Documented by: Ascorbic Acid (Vitamin C) 500 mg PO DAILY [facility] Last Admin: 04/01/19 06:33 Dose: 500 mg Documented by: Aspirin (Ecotrin) 81 mg PO DAILY@0800 [facility] Last Admin: 04/01/19 08:13 Dose: 81 mg Documented by: Calcium Carbonate (Tums) 1,000 mg PO Q4H PRN PRN PRN Reason: INDIGESTION Cephalexin (Keflex) 500 mg PO TID [facility] Last Admin: 04/01/19 13:19 Dose: 500 mg Documented by: Diazepam (Valium) 5 mg PO 4X/DAY PRN PRN PRN Reason: SPASMS Diclofenac Sodium (Voltaren) 50 mg PO BIDCM [facility] Last Admin: 04/01/19 17:41 Dose: 50 mg Documented by: Doxycycline Monohydrate (Doxycycline) 100 mg PO BID@1000,2200 [facility] Last Admin: 04/01/19 10:51 Dose: 100 mg Documented by: Ergocalciferol (Vitamin D) 50,000 unit PO QMONTH@0600 [facility] Gabapentin (Neurontin) 300 mg PO TID [facility] Last Admin: 04/01/19 13:18 Dose: 300 mg Documented by: Heparin Sodium (Beef Lung) () 50 units IV UD PRN PRN Reason: HEPARIN FLUSH Lactobacillus Acidophilus (Acidophilus) 1 tablet PO DAILY [facility] Last Admin: 04/01/19 06:33 Dose: 1 tablet Documented by: Levothyroxine Sodium (Synthroid) 25 mcg PO DAILY [facility] Last Admin: 04/01/19 06:33 Dose: 25 mcg Documented by: Linaclotide (Linzess) 145 mcg PO DAILY PRN PRN Reason: Constipation Last Admin: 03/29/19 11:05 Dose: 145 mcg Documented by: Magnesium Oxide (Mag-Ox 400) 400 mg PO DAILY [facility] Last Admin: 04/01/19 06:33 Dose: 400 mg Documented by: Metronidazole (Flagyl) 500 mg PO TIDCM [facility] Last Admin: 04/01/19 17:42 Dose: 500 mg Documented by: Nutritional Formula (Teofilo - [place] Flavor) [facility] Admin: 04/01/19 17:40 Dose: 1 packet Documented by: [id number] Ethyl Esters (Lovaza) 1 gm PO DAILY [facility] Last Admin: 04/01/19 06:33 Dose: 1 gm Documented by: Ondansetron HCl (Zofran) 4 mg IV Q6H PRN PRN PRN Reason: NAUSEA Oxycodone HCl (Oxyir) 10 mg PO Q4H PRN PRN PRN Reason: Pain Score 6-10/10 Pantoprazole Sodium (Protonix) 40 mg PO 1400 [facility] Last Admin: 04/01/19 13:18 Dose: 40 mg Documented by: Polyethylene Glycol (Miralax) 17 gm PO DAILY [facility] Last Admin: 04/01/19 07:12 Dose: Not Given Documented by: Polysaccharide Iron Complex (Ferrex 150) 150 mg PO DAILYCM [facility] Last Admin: 04/01/19 08:12 Dose: 150 mg Documented by: Potassium Chloride (K-Dur) 40 meq PO DAILY@0745 [facility] Last Admin: 04/01/19 08:12 Dose: 40 meq Documented by: Promethazine HCl (Phenergan Tablet) 25 mg PO Q4H PRN PRN PRN Reason: NAUSEA/VOMITING Senna/Docusate Sodium (Senokot-S, Amanda-Colace) 2 tablet PO BID [facility] Last Admin: 04/01/19 17:42 Dose: 2 tablet Documented by: Sodium Chloride () 10 - 40 ml IV UD PRN PRN Reason: PICC FLUSH Last Admin: 03/22/19 21:53 Dose: 30 ml Documented by: Discharge Diet: No Restrictions Discharge Activity: Return to Normal Activity, May Shower, Use Walker Weight Bearing Status: Weight bearing as tolerated Call your doctor if you observe: Fever of 101 or Higher, Inability to urinate, Inability to have a bowel movement, Shortness of breath, Chest pain, Uncontrolled pain Home Medications: Medications to take at Discharge Levothyroxine [Synthroid] 25 mcg PO DAILY 03/02/17 cholecalciferol (vitamin D3) 50,000 unit capsule 50,000 unit PO QMONTH 08/02/17 Ascorbic Acid 500 mg PO DAILY 08/21/17 Potassium Chloride [K-Dur] 40 meq PO DAILY 12/26/17 Omeprazole 40 mg PO 1400 04/11/18 omega-3 fatty acids 1,000 mg capsule 1,000 mg PO DAILY 04/19/18 Linacolotide [Linzess] 145 mcg PO DAILY PRN capsule 07/08/18 Gabapentin [Neurontin] 300 mg PO TID 09/02/18 Iron Polysaccharide Complex [Ferrex 150] 150 mg PO DAILYCM #30 capsule 09/12/18 Acetaminophen [Tylenol] 1,000 mg PO Q6H 03/12/19 Aspirin [Aspir 81] 81 mg PO DAILY 03/12/19 Lactobacillus Acidophilus/Fos [Acidophilus Probiotic Tablet] 1 ea PO DAILY 03/12/19 Magnesium Oxide [Magnesium] 500 mg PO DAILY 03/12/19 Calcium Carbonate [Tums] 1,000 mg PO Q4H PRN PRN tab 04/01/19 Nutritional Supplement [Teofilo - ORANGE FLAVOR] 1 packet PO BIDCM #60 packet 04/01/19 Following Prescrptions Were Given to Patient: Nutritional Supplement [Teofilo - ORANGE FLAVOR] 1 packet PO BIDCM #60 packet Transmission Status: Pending to [facility]/pharmacy #[id number] Primary Care Physician: Chema Sanchez Chi, MD [Primary Care Provider] - Please follow up with your Primary Care Physician in: 1 week. Please Follow Up With: Wound Center (Ok to see Dr Santiago or Dora if Dr Hansen not available) When: [phone] Please Follow Up With: Chema Sanchez Chi, MD When: [phone] Disposition: Home with Home Health Minutes spent on discharge:: 35 Patient Condition:: Stable Medical Necessity - Tobacco Use Smoking Status: Former smoker Tobacco Use: Non-smoker Meaningful Use Info Meaningful Use Diagnoses (Choose all that apply): None applicable
--- NOTE | 2019-04-01 20:08 | PCM.PN.HH ---
Home Health Note - Plan Overview of reason of hospitalization: The patient is a 68 year old Female with past medical history significant for hypergranulating stage 4 sacral pressure ulcer, underwent debridement 03/17/[address] Hansen, admitted to TCU with debility, here for rehabilitation, strengthening, wound care, prior to discharge home alone. Finished course of antibiotics for sacral osteomyelitis per Dr. Preston. Discharge home alone, [facility], Wound Vac, indwelling maier catheter. Problems: Patient was seen for (Last Reviewed 05/16/18 @ 14:58 by Raúl Villareal DO) Debility (Acute) Hypertension (Chronic) Osteomyelitis (Chronic) Atrial fibrillation (Chronic) Back pain (Chronic) Methicillin resistant Staph aureus culture positive (Chronic) Complete List of Medical Problems (Last Reviewed 05/16/18 @ 14:58 by Raúl Villareal DO) Debility (Acute) Hypertension (Chronic) Osteomyelitis (Chronic) Atrial fibrillation (Chronic) Back pain (Chronic) Methicillin resistant Staph aureus culture positive (Chronic) MRSA (methicillin resistant Staphylococcus aureus) infection (Chronic) Osteomyelitis of pelvis (Chronic) Constipation (Chronic) Hypergranulation (Chronic) Acute osteomyelitis of sacrum (Chronic) Surgical wound present (Chronic) Secondary pulmonary arterial hypertension (Chronic) Non-rheumatic tricuspid valve insufficiency (Chronic) Preop cardiovascular exam (Chronic) Abnormal electrocardiogram (Chronic) Essential (primary) hypertension (Chronic) Colovaginal fistula (Chronic) Non-healing surgical wound (Chronic) Pressure ulcer of right heel, stage 3 (Chronic) Pressure ulcer of left heel, stage 3 (Chronic) Morbid obesity with BMI of 40.0-44.9, adult (Chronic) GERD (gastroesophageal reflux disease) (Chronic) Depression (Chronic) Hypothyroidism (Chronic) Pressure ulcer of sacral region, stage 4 (Chronic) Failure to thrive (Chronic) Neuropathy (Chronic) - Requirements and Reasons Disciplines Needed/Ordered: Retirement Reason for Disciplines: Disease Specific Monitoring/education, Medication Management/Knowledge Deficit, Wound Care, Cather Care and/or Changes Related To: Change in Medical Treatment Plan, Physical Impairments Patient is unable to leave the home: Without Aid of Supportive Devices (crutches, cane, wheelchair, walker), Without the assistance of another person
[2019-04-01 21:28] VITALS: O2SAT 98
--- NOTE | 2019-04-01 21:32 | NURSING ---
This nurse into do assessment. Small amount of urine noted to be in catheter bag. Pt stating she empties her own catheter when it needs it. This nurse encouraged pt to ask staff to do it so output could be monitored and urine can be observed. Pt stating I do it at home all the time, its just a habit. Pt agreed to call when catheter needs emptied.
[2019-04-02] MEDS: Acetaminophen 500 MG Tablet 1000 MG PO ×4 (00:32→18:40)
[2019-04-02] MEDS: Ascorbic Acid 500 MG Tablet PO (06:32)
[2019-04-02] MEDS: Omega-3 Acid Ethyl Esters 1 GM Capsule PO (06:32)
[2019-04-02] MEDS: Senna/Docusate Sodium 1 Tablet 2 TABLET PO ×2 (06:32→17:04)
[2019-04-02] MEDS: Levothyroxine 25 MCG TABLET PO (06:32)
[2019-04-02] MEDS: Magnesium Oxide 400 MG Tablet PO (06:32)
[2019-04-02] MEDS: Cephalexin 500 MG Capsule PO ×3 (06:32→21:05)
[2019-04-02] MEDS: Gabapentin 300 MG Capsule PO ×3 (06:33→21:05)
[2019-04-02] MEDS: Aspirin E.C. 81 MG Tablet PO (08:00)
[2019-04-02] MEDS: Iron Polysaccharide Complex 150 MG CAPSULE PO (08:00)
[2019-04-02] MEDS: metroNIDAZOLE 500 MG Tablet PO ×3 (08:01→17:04)
[2019-04-02] MEDS: Doxycycline 100 MG CAPSULE PO ×2 (10:51→21:05)
[2019-04-02] MEDS: Pantoprazole Sodium 40 MG Tablet PO (13:30)
[2019-04-02 15:35] VITALS: BP 117/70; PULSE 86; RESP 17; TEMP 37; O2SAT 96
[2019-04-03] MEDS: Acetaminophen 500 MG Tablet 1000 MG PO ×3 (00:44→12:59)
[2019-04-03] MEDS: Gabapentin 300 MG Capsule PO ×3 (06:31→21:27)
[2019-04-03] MEDS: Senna/Docusate Sodium 1 Tablet 2 TABLET PO ×2 (06:31→17:32)
[2019-04-03] MEDS: Levothyroxine 25 MCG TABLET PO (06:32)
[2019-04-03] MEDS: Cephalexin 500 MG Capsule PO ×3 (06:32→21:27)
[2019-04-03] MEDS: Ascorbic Acid 500 MG Tablet PO (06:32)
[2019-04-03] MEDS: Magnesium Oxide 400 MG Tablet PO (06:32)
[2019-04-03] MEDS: Omega-3 Acid Ethyl Esters 1 GM Capsule PO (06:33)
[2019-04-03] MEDS: Iron Polysaccharide Complex 150 MG CAPSULE PO (09:13)
[2019-04-03] MEDS: Aspirin E.C. 81 MG Tablet PO (09:14)
[2019-04-03] MEDS: metroNIDAZOLE 500 MG Tablet PO ×3 (09:15→17:32)
[2019-04-03] MEDS: Doxycycline 100 MG CAPSULE PO ×2 (09:15→21:27)
[2019-04-03] MEDS: Pantoprazole Sodium 40 MG Tablet PO (13:00)
[2019-04-03 16:00] VITALS: BP 120/69; PULSE 80; RESP 17; TEMP 36.6; O2SAT 94
[2019-04-04] MEDS: Acetaminophen 500 MG Tablet 1000 MG PO ×4 (00:44→17:51)
[2019-04-04] MEDS: Cephalexin 500 MG Capsule PO ×3 (06:28→20:58)
[2019-04-04] MEDS: Senna/Docusate Sodium 1 Tablet 2 TABLET PO ×2 (06:28→17:50)
[2019-04-04] MEDS: Omega-3 Acid Ethyl Esters 1 GM Capsule PO (06:28)
[2019-04-04] MEDS: Gabapentin 300 MG Capsule PO ×3 (06:28→20:58)
[2019-04-04] MEDS: Ascorbic Acid 500 MG Tablet PO (06:28)
[2019-04-04] MEDS: Magnesium Oxide 400 MG Tablet PO (06:28)
[2019-04-04] MEDS: Levothyroxine 25 MCG TABLET PO (06:29)
[2019-04-04] MEDS: Iron Polysaccharide Complex 150 MG CAPSULE PO (08:30)
[2019-04-04] MEDS: Aspirin E.C. 81 MG Tablet PO (08:30)
[2019-04-04] MEDS: metroNIDAZOLE 500 MG Tablet PO ×3 (08:30→17:50)
--- NOTE | 2019-04-04 10:57 | NURSING ---
wound photo: sacrum
[2019-04-04] MEDS: Doxycycline 100 MG CAPSULE PO ×2 (10:58→20:57)
[2019-04-04] MEDS: Pantoprazole Sodium 40 MG Tablet PO (13:36)
[2019-04-04 16:00] VITALS: BP 115/53; PULSE 70; RESP 16; TEMP 37.1; O2SAT 95
[2019-04-04] MEDS: oxyCODONE 5 MG Tablet 10 MG PO (18:55)
[2019-04-05] MEDS: Acetaminophen 500 MG Tablet 1000 MG PO ×4 (00:45→18:34)
[2019-04-05] MEDS: Cephalexin 500 MG Capsule PO ×3 (06:27→20:49)
[2019-04-05] MEDS: Senna/Docusate Sodium 1 Tablet 2 TABLET PO ×2 (06:27→17:09)
[2019-04-05] MEDS: Omega-3 Acid Ethyl Esters 1 GM Capsule PO (06:28)
[2019-04-05] MEDS: Ascorbic Acid 500 MG Tablet PO (06:28)
[2019-04-05] MEDS: Gabapentin 300 MG Capsule PO ×3 (06:28→20:49)
[2019-04-05] MEDS: Magnesium Oxide 400 MG Tablet PO (06:29)
[2019-04-05] MEDS: Levothyroxine 25 MCG TABLET PO (06:29)
[2019-04-05 07:04] LABS: Absolute Lymphocyte Count 1.99 X10^3/uL (0.83-4.51); Absolute Neutrophil Count 5.1 X10^3/uL (2.0-7.7); Basophil# 0.05 X10^3/uL; Basophil% 0.6 % (0-1); Eosinophil# 0.26 X10^3/uL; Eosinophils% 3.1 % (0-5); Hemoglobin 9.8 g/dL (12.0-15.0); Lymphocyte # 1.99 X10^3/ul (4.0); Lymphocyte % 23.4 % (19-41); Mean Corp Hgb Conc 28.8 g/dL (32-36); Mean Corpuscular Hgb 25.7 pg (27.0-32.0); Mean Corpuscular Volume 89.2 fL (81-99); Mean Platelet Vol. 8.8 fl (6.2-12.0); Monocyte% 12.9 % (0-10); NRBC Flagged by Analyzer 0 % (0-5); Neutrophil # 5.07 X10^3/uL (2.7-7.7); Neutrophil % 59.5 % (47-70); Platelet Count 522 K/mm3 (150-450); RBC Distribution Width CV 16.3 % (11.6-14.6); RBC Distribution Width SD 53.1 fl (35.1-43.9); Red Blood Count 3.81 M/mm3 (4.2-5.4); White Blood Count 8.5 K/mm3 (4.4-11.0)
[2019-04-05 07:18] LABS: Erythrocyte Sedimentation Rate 58 mm/hr (0-30)
[2019-04-05 07:21] LABS: ALB/GLOB Ratio 0.8 RATIO (0.9-2.4); AST(SGOT) 10 U/L (15-37); Alanine Aminotransfer ALT/SGPT 14 U/L (13-56); Albumin, Serum 2.9 g/dL (3.2-5.0); Alkaline Phosphatase 65 U/L (45-117); Anion Gap 7 (5-15); BUN 27 mg/dL (7-18); BUN/Creat Ratio 43.3 RATIO (10-20); Chloride 109 mmol/L (98-107); Creatinine, Serum 0.62 mg/dL (0.55-1.02); EST Glomerular Filtration Rate 101 mL/min (>60); Est Glom Filt Rate - Afr Amer 122 mL/min (>60); Estimated Creatinine Clearance 47.14 ml/min; Globulin 3.7 g/dL (2.2-4.2); Glucose 86 mg/dL (74-106); Potassium 4.1 mmol/L (3.5-5.1); Protein, Total 6.6 g/dL (6.4-8.2); Sodium Level 142 mmol/L (136-145)
[2019-04-05] MEDS: metroNIDAZOLE 500 MG Tablet PO ×3 (07:59→17:08)
[2019-04-05] MEDS: Iron Polysaccharide Complex 150 MG CAPSULE PO (07:59)
[2019-04-05] MEDS: Aspirin E.C. 81 MG Tablet PO (08:00)
[2019-04-05] MEDS: Doxycycline 100 MG CAPSULE PO ×2 (09:29→20:49)
[2019-04-05] MEDS: Pantoprazole Sodium 40 MG Tablet PO (13:05)
[2019-04-05 15:17] VITALS: BP 111/45; PULSE 77; RESP 18; TEMP 36.4; O2SAT 96
[2019-04-06] MEDS: Acetaminophen 500 MG Tablet 1000 MG PO ×4 (00:58→18:47)
[2019-04-06] MEDS: Magnesium Oxide 400 MG Tablet PO (06:28)
[2019-04-06] MEDS: Gabapentin 300 MG Capsule PO ×3 (06:28→20:48)
[2019-04-06] MEDS: Cephalexin 500 MG Capsule PO ×3 (06:28→20:48)
[2019-04-06] MEDS: Ascorbic Acid 500 MG Tablet PO (06:28)
[2019-04-06] MEDS: Levothyroxine 25 MCG TABLET PO (06:28)
[2019-04-06] MEDS: Omega-3 Acid Ethyl Esters 1 GM Capsule PO (06:28)
[2019-04-06] MEDS: Senna/Docusate Sodium 1 Tablet 2 TABLET PO ×2 (06:29→17:31)
[2019-04-06] MEDS: Polyethylene Glycol 3350 17 GM PACKET PO (06:31)
[2019-04-06] MEDS: metroNIDAZOLE 500 MG Tablet PO ×3 (08:13→17:31)
[2019-04-06] MEDS: Aspirin E.C. 81 MG Tablet PO (08:14)
[2019-04-06] MEDS: Iron Polysaccharide Complex 150 MG CAPSULE PO (08:14)
[2019-04-06] MEDS: Doxycycline 100 MG CAPSULE PO ×2 (09:54→20:48)
[2019-04-06] MEDS: Pantoprazole Sodium 40 MG Tablet PO (13:37)
[2019-04-06 15:26] VITALS: BP 97/50; PULSE 77; RESP 18; TEMP 36.6; O2SAT 96
--- NOTE | 2019-04-06 16:09 | NURSING ---
pt c/o catheter being painful now after straining so hard to have a bm earlier catheter balloon deflated and tubing manipulated and reinflated with 100steril ns. good flow of urine to tubing. pt only c/o when up standing. offered to call and get dc'd but pt wanting to wait till closer to dc date will monitor
--- NOTE | 2019-04-06 17:50 | NURSING ---
pt reports that catheter feeling lots better and no pain or pressure now when up.
[2019-04-07] MEDS: Acetaminophen 500 MG Tablet 1000 MG PO ×4 (00:19→18:48)
[2019-04-07] MEDS: Levothyroxine 25 MCG TABLET PO (06:22)
[2019-04-07] MEDS: Polyethylene Glycol 3350 17 GM PACKET PO (06:22)
[2019-04-07] MEDS: Senna/Docusate Sodium 1 Tablet 2 TABLET PO ×2 (06:22→18:09)
[2019-04-07] MEDS: Cephalexin 500 MG Capsule PO ×3 (06:23→20:42)
[2019-04-07] MEDS: Gabapentin 300 MG Capsule PO ×3 (06:23→20:42)
[2019-04-07] MEDS: Omega-3 Acid Ethyl Esters 1 GM Capsule PO (06:23)
[2019-04-07] MEDS: Ascorbic Acid 500 MG Tablet PO (06:23)
[2019-04-07] MEDS: Magnesium Oxide 400 MG Tablet PO (06:23)
[2019-04-07] MEDS: Iron Polysaccharide Complex 150 MG CAPSULE PO (08:45)
[2019-04-07] MEDS: Aspirin E.C. 81 MG Tablet PO (08:45)
[2019-04-07] MEDS: metroNIDAZOLE 500 MG Tablet PO ×3 (08:45→18:10)
[2019-04-07] MEDS: Doxycycline 100 MG CAPSULE PO ×2 (08:46→20:42)
--- NOTE | 2019-04-07 12:23 | PCM.PN.ID ---
Patient Problems: Active and Suspected Problems (Last Reviewed 05/16/18 @ 14:58 by Raúl Villareal DO) Debility (Acute) Subjective: Feeling well, no fever, no n/v/d. - Physical Exam Vitals/I&O's: Vital Signs Temp Pulse Resp BP Pulse Ox 98 F 77 18 97/50 L 96 04/06/19 15:26 04/06/19 15:26 04/06/19 15:26 04/06/19 15:26 04/06/19 15:26 Oxygen Delivery Method Room Air Weight: 99.11 kg Body Mass Index (BMI) 36.6 Intake and Output for Last 24 Hours 04/06/19 04/06/19 04/07/19 00:59 23:59 23:59 Intake Total 360 / 360 Output Total Balance 360 / 360 General: Alert, Cooperative, No apparent distress Lungs: Clear to auscultation, Normal air movement Cardiovascular: Regular rate, Regular Rhythm, Murmur Abdomen: Soft, Non Tender, Non-Distended Skin: Ulcer/ Wound - reviewed photo Current Medications Acetaminophen (Tylenol) 1,000 mg PO Q6 [facility] Last Admin: 04/07/19 06:29 Dose: 1,000 mg Documented by: Ascorbic Acid (Vitamin C) 500 mg PO DAILY [facility] Last Admin: 04/07/19 06:23 Dose: 500 mg Documented by: Aspirin (Ecotrin) 81 mg PO DAILY@0800 [facility] Last Admin: 04/07/19 08:45 Dose: 81 mg Documented by: Calcium Carbonate (Tums) 1,000 mg PO Q4H PRN PRN PRN Reason: INDIGESTION Cephalexin (Keflex) 500 mg PO TID [facility] Last Admin: 04/07/19 06:23 Dose: 500 mg Documented by: Diazepam (Valium) 5 mg PO 4X/DAY PRN PRN PRN Reason: SPASMS Diclofenac Sodium (Voltaren) 50 mg PO BIDCM [facility] Last Admin: 04/07/19 08:46 Dose: 50 mg Documented by: Doxycycline Monohydrate (Doxycycline) 100 mg PO BID@1000,2200 [facility] Last Admin: 04/07/19 08:46 Dose: 100 mg Documented by: Ergocalciferol (Vitamin D) 50,000 unit PO QMONTH@0600 [facility] Last Admin: 04/04/19 06:28 Dose: 50,000 unit Documented by: Gabapentin (Neurontin) 300 mg PO TID [facility] Last Admin: 04/07/19 06:23 Dose: 300 mg Documented by: Heparin Sodium (Beef Lung) () 50 units IV UD PRN PRN Reason: HEPARIN FLUSH Lactobacillus Acidophilus (Acidophilus) 1 tablet PO DAILY [facility] Last Admin: 04/07/19 06:23 Dose: 1 tablet Documented by: Levothyroxine Sodium (Synthroid) 25 mcg PO DAILY [facility] Last Admin: 04/07/19 06:22 Dose: 25 mcg Documented by: Linaclotide (Linzess) 145 mcg PO DAILY PRN PRN Reason: Constipation Last Admin: 03/29/19 11:05 Dose: 145 mcg Documented by: Magnesium Oxide (Mag-Ox 400) 400 mg PO DAILY [facility] Last Admin: 04/07/19 06:23 Dose: 400 mg Documented by: Metronidazole (Flagyl) 500 mg PO TIDCM [facility] Last Admin: 04/07/19 08:45 Dose: 500 mg Documented by: Nutritional Formula (Teofilo - Blair Flavor) [facility] Last Admin: 04/07/19 08:45 Dose: 1 packet Documented by: Oeljo-4-Rdrp Ethyl Esters (Lovaza) 1 gm PO DAILY [facility] Last Admin: 04/07/19 06:23 Dose: 1 gm Documented by: Ondansetron HCl (Zofran) 4 mg IV Q6H PRN PRN PRN Reason: NAUSEA Oxycodone HCl (Oxyir) 10 mg PO Q4H PRN PRN PRN Reason: Pain Score 6-10/10 Last Admin: 04/04/19 18:55 Dose: 10 mg Documented by: Pantoprazole Sodium (Protonix) 40 mg PO 1400 [facility] Last Admin: 04/06/19 13:37 Dose: 40 mg Documented by: Polyethylene Glycol (Miralax) 17 gm PO DAILY [facility] Last Admin: 04/07/19 06:22 Dose: 17 gm Documented by: Polysaccharide Iron Complex (Ferrex 150) [facility] Last Admin: 04/07/19 08:45 Dose: 150 mg Documented by: Potassium Chloride (K-Dur) 40 meq PO DAILY@0745 [facility] Last Admin: 04/07/19 08:45 Dose: 40 meq Documented by: Promethazine HCl (Phenergan Tablet) 25 mg PO Q4H PRN PRN PRN Reason: NAUSEA/VOMITING Senna/Docusate Sodium (Senokot-S, Amanda-Colace) 2 tablet PO BID [facility] Last Admin: 04/07/19 06:22 Dose: 2 tablet Documented by: Sodium Chloride () 10 - 40 ml IV UD PRN PRN Reason: PICC FLUSH Last Admin: 03/22/19 21:53 Dose: 30 ml Documented by: Medical Necessity - Tobacco Use Smoking Status: Former smoker Tobacco Use: Non-smoker Route of nutrition/ use of supplements: [] Nutritional Intake: [] IV Site: [] Grewal Catheter: [] - Assessment/Plan Antibiotics: [] Assessment/Plan: [] Active and Suspected Problems (Last Reviewed 05/16/18 @ 14:58 by Raúl Villareal DO) Debility (Acute) suspected sacral osteo - Now s/p OR 03/17/[address] Hansen. Bone cx neg, superficial cx with Corynebacteria striatum, anaerobes. Had been on doxy for several weeks prior to this surgery. Cont po doxy 100mg bid and keflex 500mg tid, flagyl. Bone path did show acute osteo. She is tolerating abx without issue, ESR improving; will extend course for one more week after discharge. Will follow
[2019-04-07] MEDS: Pantoprazole Sodium 40 MG Tablet PO (12:48)
[2019-04-07 16:00] VITALS: BP 113/62; PULSE 78; RESP 18; TEMP 36.8; O2SAT 95
[2019-04-08] MEDS: Acetaminophen 500 MG Tablet 1000 MG PO ×4 (00:23→18:50)
[2019-04-08] MEDS: Polyethylene Glycol 3350 17 GM PACKET PO (06:30)
[2019-04-08] MEDS: Ascorbic Acid 500 MG Tablet PO (06:30)
[2019-04-08] MEDS: Cephalexin 500 MG Capsule PO ×3 (06:30→21:50)
[2019-04-08] MEDS: Senna/Docusate Sodium 1 Tablet 2 TABLET PO (06:31)
[2019-04-08] MEDS: Gabapentin 300 MG Capsule PO ×3 (06:31→21:49)
[2019-04-08] MEDS: Magnesium Oxide 400 MG Tablet PO (06:31)
[2019-04-08] MEDS: Levothyroxine 25 MCG TABLET PO (06:32)
[2019-04-08] MEDS: Omega-3 Acid Ethyl Esters 1 GM Capsule PO (06:32)
--- NOTE | 2019-04-08 07:41 | NURSING ---
Addendum entered by Antonieta Garza 04/08/19 10:33: bladder scanned for 47cc. Original Note: Patient's Grewal removed at this time per Dr. Wetzel. Patient tolerated procedure well.
[2019-04-08] MEDS: Aspirin E.C. 81 MG Tablet PO (08:24)
[2019-04-08] MEDS: metroNIDAZOLE 500 MG Tablet PO ×3 (08:25→17:02)
[2019-04-08] MEDS: Iron Polysaccharide Complex 150 MG CAPSULE PO (08:25)
--- NOTE | 2019-04-08 08:28 | NURSING ---
wound VAC canister changed. moderate amount of serosanguineous drainage.
[2019-04-08] MEDS: Doxycycline 100 MG CAPSULE PO ×2 (12:48→21:49)
--- NOTE | 2019-04-08 14:23 | CHAPLAIN ---
Type of Pastoral Visit ___ Initial Visit _x__ Follow-up Visit ___ On-call Visit ___ General Patient Visit ___ Spiritual Assessment ___ Family Conference ___ Bereavement ___ Rapid Response ___ Code Blue ___ Other (describe below) Pastoral Care Referral From _x__ Patient ___ Family ___ Nurse ___ Physician ___ Door Frame Assembler Machine ___ Senior Dot Net Developer ___ Other (describe below) Sacrament/Intervention _x__ Active listening ___ Anointing ___ Worship ___ Bereavement ___ Communion _x__ Mayra exploration ___ ___ Life review _x__ Prayer ___ Reconciliation ___ Sacrament of Sick _x__ Supportive presence ___ Wedding ___ Other (describe below) Pastoral Comments
[2019-04-08] MEDS: Pantoprazole Sodium 40 MG Tablet PO (15:19)
[2019-04-08 15:58] VITALS: BP 116/46; PULSE 81; RESP 17; TEMP 36.8; O2SAT 93
[2019-04-09] MEDS: Acetaminophen 500 MG Tablet 1000 MG PO ×2 (00:24→06:40)
[2019-04-09] MEDS: Gabapentin 300 MG Capsule PO (06:39)
[2019-04-09] MEDS: Omega-3 Acid Ethyl Esters 1 GM Capsule PO (06:39)
[2019-04-09] MEDS: Cephalexin 500 MG Capsule PO (06:39)
[2019-04-09] MEDS: Levothyroxine 25 MCG TABLET PO (06:40)
[2019-04-09] MEDS: Ascorbic Acid 500 MG Tablet PO (06:40)
[2019-04-09] MEDS: Magnesium Oxide 400 MG Tablet PO (06:40)
[2019-04-09] MEDS: metroNIDAZOLE 500 MG Tablet PO ×2 (08:17→10:40)
[2019-04-09] MEDS: Iron Polysaccharide Complex 150 MG CAPSULE PO (08:17)
[2019-04-09] MEDS: Aspirin E.C. 81 MG Tablet PO (08:17)
[2019-04-09] MEDS: Doxycycline 100 MG CAPSULE PO (10:40)
[2019-04-09 10:45] VITALS: BP 107/55; PULSE 89; RESP 18; TEMP 36.7; O2SAT 96
--- NOTE | 2019-04-09 13:13 | PN.SURG_ITS ---
Subjective: Postop #23 Patient resting comfortably. VAC changed today. - Physical Exam Vitals/I&O's: Vital Signs Temp Pulse Resp BP Pulse Ox 98.1 F 89 18 107/55 L 96 04/09/19 10:45 04/09/19 10:45 04/09/19 10:45 04/09/19 10:45 04/09/19 10:45 Oxygen Delivery Method Room Air Weight: 219 lb 7 oz Body Mass Index (BMI) 36.6 Intake and Output for Last 24 Hours 04/07/19 04/08/19 04/09/19 23:59 23:59 23:59 Intake Total 840 / 840 960 / 960 360 / 360 Output Total 700 / 700 1000 / 1000 Balance 140 / 140 -40 / -40 360 / 360 General: Alert, Oriented x3 HEENT: PERRLA, EOMI Oral: Moist Mucosa Neck: Supple Abdomen: Soft, Non-Distended Skin: Ulcer/ Wound - sacral wound is stable. Bone is exposed but no hypergranulation tissue seen on the bone. VAC changed today. Patient tolerated well. Neurological: Cranial nerves II-XII grossly intact Psych/Mental Status: Normal Affect, Appropriate Medical Necessity - Tobacco Use Smoking Status: Former smoker Tobacco Use: Non-smoker Assessment/Plan All Active Problems (Last Reviewed 05/16/18 @ 14:58 by Raúl Villareal DO) Debility (Acute) Atrial fibrillation with RVR (Resolved) Clostridium difficile colitis (Resolved) Clostridium difficile infection (Resolved) Hypertension (Resolved) Rhabdomyolysis (Resolved) 1. Sacral pressure sore, Stage IV. 2. Osteomyelitis. 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 5. Severe hypergranulation tissue sacral pressure sore. 6. s/p excision sacral pressure sore, Stage IV, with partial ostectomy for osteomyelitis (71.5 cm2) and placement of AmnioFill placental connective tissue powder, 1000 mg. 7. Anemia of chronic disease, acute on chronic, blood loss anemia, improved after PRBC. VAC changed today. No hypergranulation tissue seen on the bone. VAC to be changed three times per week at 150 mmHg continuous suction. Pathology showed acute osteomyelitis. She is presently on Doxycycline, Keflex, and Flagyl. Will continue them after discharge. Discussed the Pathology report with Dr. Preston. He wants to continue the oral antibiotics for now. She had been on antibiotics for several weeks preop as well. As long as the wound looks good and continues to improve, will stay with the po antibiotics. If the wound worsens in any way during the healing process, then repeat culture will be obtained. Will make a decision at that time regarding po versus IV antibiotics if necessary. Prealbumin was 20.7. Encourage nutritional supplementation with protein to help the healing process. Repeat Hgb stable at 10.0 down from 10.1. Continue Iron supplementation. Followup at the [facility] next week 04/14/19. Will tentatively schedule closure of this wound with a lumbar bilobed flap in the next 2-4 weeks. She is ambulatory so I would like to avoid having to use a ny gluteus muscles. Since no muscle is involved, she will not need 6 weeks of bedrest. Will start with 2 weeks bedrest and then re-evaluate the healing of the flap.
== END 2019-04-09 11:15 | disposition home health service (06) | DRG 949 ==
PROVIDERS: Admitting Provider Family Medicine Geriatric Medicine; Family Provider Family Medicine Geriatric Medicine; PCP Family Medicine Geriatric Medicine; Referring Provider Family Medicine Geriatric Medicine; Visit Provider Family Medicine Geriatric Medicine
DX: Z48.817 Encounter for surgical aftercare following surgery on the skin and subcutaneous tissue (principal); L89.154 Pressure ulcer of sacral region, stage 4; I48.20 Chronic atrial fibrillation, unspecified; M46.28 Osteomyelitis of vertebra, sacral and sacrococcygeal region; Z23 Encounter for immunization; E03.9 Hypothyroidism, unspecified; D50.9 Iron deficiency anemia, unspecified; G62.9 Polyneuropathy, unspecified; K21.9 Gastro-esophageal reflux disease without esophagitis; B95.62 Methicillin resistant Staphylococcus aureus infection as the cause of diseases classified elsewhere; M19.90 Unspecified osteoarthritis, unspecified site; E78.5 Hyperlipidemia, unspecified; F41.9 Anxiety disorder, unspecified; E87.6 Hypokalemia; I10 Essential (primary) hypertension; G89.29 Other chronic pain; I27.21 Secondary pulmonary arterial hypertension; E66.01 Morbid (severe) obesity due to excess calories; F32.9 Major depressive disorder, single episode, unspecified; Z87.891 Personal history of nicotine dependence; Z68.37 Body mass index [BMI] 37.0-37.9, adult; D63.8 Anemia in other chronic diseases classified elsewhere; D50.0 Iron deficiency anemia secondary to blood loss (chronic)
CPT/HCPCS: 36415; 80053; 85025; 85652; 86140; 90732; 97110; 97116; 97162; 97165; 97530; 97802; G0009; A4216

== ENCOUNTER → 2019-04-16 11:48 | Outpatient (CLI) | payer MEDICARE, OTHER, SELFPAY ==
[2019-04-14 09:19] VITALS: BMI 36.6
[2019-04-16 12:12] LABS: Absolute Lymphocyte Count 1.08 X10^3/uL (0.83-4.51); Absolute Neutrophil Count 6.8 X10^3/uL (2.0-7.7); Basophil# 0.05 X10^3/uL; Basophil% 0.5 % (0-1); Eosinophil# 0.14 X10^3/uL; Eosinophils% 1.5 % (0-5); Hematocrit 39.2 % (37-47); Hemoglobin 11.3 g/dL (12.0-15.0); Lymphocyte # 1.08 X10^3/ul (4.0); Lymphocyte % 11.6 % (19-41); Mean Corp Hgb Conc 28.8 g/dL (32-36); Mean Corpuscular Hgb 25.3 pg (27.0-32.0); Mean Corpuscular Volume 87.9 fL (81-99); Mean Platelet Vol. 8.8 fl (6.2-12.0); Monocyte# 1.26 X10^3/uL; Monocyte% 13.5 % (0-10); NRBC Flagged by Analyzer 0 % (0-5); Neutrophil # 6.76 X10^3/uL (2.7-7.7); Neutrophil % 72.4 % (47-70); Platelet Count 466 K/mm3 (150-450); RBC Distribution Width CV 15.9 % (11.6-14.6); RBC Distribution Width SD 50.8 fl (35.1-43.9); Red Blood Count 4.46 M/mm3 (4.2-5.4); White Blood Count 9.3 K/mm3 (4.4-11.0)
== END ==
PROVIDERS: Family Provider Family Medicine Geriatric Medicine; PCP Family Medicine Geriatric Medicine; Visit Provider Family Medicine Geriatric Medicine
DX: D50.9 Iron deficiency anemia, unspecified (principal)
CPT/HCPCS: 36415; 85025

== ENCOUNTER 2019-04-21 09:00 | Outpatient (RCR) | payer MEDICARE, OTHER, SELFPAY ==
[2019-03-04 00:28] VITALS: BP 144/101; PULSE 98; RESP 18; TEMP 36.6; O2SAT 94
[2019-03-21 14:50] VITALS: BMI 36.6
[2019-04-14 09:19] VITALS: BP 128/75; PULSE 105; RESP 16; TEMP 36.6; BMI 36.6
--- NOTE | 2019-04-14 10:58 | PCM.WC.PN ---
(1) Pressure ulcer of sacral region, stage 4 Status: Chronic Current Visit: Yes Code(s): L89.154 - Pressure ulcer of sacral region, stage 4 (2) Osteomyelitis of pelvis Status: Chronic Current Visit: Yes Code(s): M86.9 - Osteomyelitis, unspecified (3) Morbid obesity with BMI of 40.0-44.9, adult Status: Chronic Current Visit: Yes Code(s): E66.01 - Morbid (severe) obesity due to excess calories; Z68.41 - Body mass index (BMI) 40.0-44.9, adult (4) Debility Status: Chronic Current Visit: Yes Code(s): R53.81 - Other malaise Type of Wound Date of Service: 04/14/19 Chief Complaint: Sacral pressure sore, Stage IV. History of Wound: Surgery 09/09/18 - Excision sacral pressure sore, Stage IV, with partial ostectomy for osteomyelitis. Operative culture - Coag negative Staph and Actinomyces odontolyticus. She was treated with Doxycycline and has finished them. Recent wound culture from 10/09/18 showed Streptococcus agalactiae and Corynebacterium striatum. Another wound culture from 01/29/19 showed MRSA. She was placed on Doxycycline. Pathology - negative for osteomyelitis. Surgery 03/17/19- Excision sacral pressure sore, Stage IV, with partial ostectomy for osteomyeiltis (71.5 cm2) and placement of AmnioFill placental connective tissue powder, 1000 mg. Pathology from surgery showed skin and soft tissue with acute and chronic inflammation and the saral bone showed acute osteomyelitis. Surgical culture showed Corynebacterium striatum and Annaerobic cocci. Prealbumin 20.7 from 03/18/19. Encourage nutritional supplementation with protein to help the healing process. Today she denies fever. Her appetite is ok. Progress of Wound: Stable - Physical Exam Vital Signs Temp Pulse Resp BP Pulse Ox 97.8 F 105 H 16 128/75 H 94 04/14/19 09:19 04/14/19 09:19 04/14/19 09:19 04/14/19 09:19 03/04/19 00:28 General: Alert, Oriented x3, Cooperative HEENT: Atraumatic Oral: Moist Mucosa Lungs: Normal air movement Cardiovascular: Regular rate Extremities: Capillary Refill Less than 3 Seconds Skin: Ulcer/ Wound - sacral ulcer Wound Measurements and Assessment WC - Nurse 1 - General Ulcer Measurement Start: 04/14/19 09:19 Freq: Status: Active Protocol: Activity Type Activity Date Activity User E-Sign Co-Sign Detail Recorded Client Recorded Date Recorded By Document 04/14/19 09:19 [facility] [id number] 04/14/19 09:29 [facility] 04/14/19 09:19 [facility] Nurse 1 [Ulcer Assessment] #8 Sacrum -Combined with other wound No -Current Size (cm) - Length 4.5 -Current Size (cm) - Width 11.0 -Current Size (cm) - Depth 3.5 -Total Square Cm 49.50 -Date of Last Picture (Recall this 04/14/19 field) -Photo Taken Yes -Epithelialization None Present -Tunneling No -Undermining/Tunneling No -Circular Undermining Yes -Exudate Amt Large -Exudate Type Serosanguineous -Wound Margin Distinct, Outline Attached -Granulation Amt Large (67-100%) -Granulation Quality Red -Slough/Fibrin Yes -Necrosis Amt Small (1-33%) -Necrotic Tissue Type Adherent Slough -Structure Exposed Bone -Texture (Amanda-wound Skin Appearance) Assessed, Scarring -Moisture (Amanda-wound Skin Appearance No Abnormality, ) Assessed -Color (Amanda-wound Skin Appearance) No Abnormality, Assessed -Temperature (Amanda-wound Skin No Abnormality Appearance) (Pt Warm) -Tenderness on Palpation (Amanda-wound Yes Skin Appearance) -Ulcer Cleansing soap and water -Foul Odor after Cleansing No -Anesthetic Used 4% Lidocaine Solution [Edema Assessment] -Lower Limb Edema Present No WC - Nurse 2 - General Ulcer CM Notes Start: 04/14/19 09:19 Freq: Status: Active Protocol: Activity Type Activity Date Activity User E-Sign Co-Sign Detail Recorded Client Recorded Date Recorded By Document 04/14/19 09:42 [id number] 04/14/19 09:43 04/14/19 09:42 W[facility] Center Nurse 2 [Procedure/Treatment] #8 Sacrum -Time 09:43 -Correct Patient Yes -Correct Side, Site, Position Yes -Correct Procedure Yes -Procedure Performed Yes -Type of Procedure Debridement -Clinical Debridement Muscle -Post Debridement Size (cm) - Length 4.5 -Post Debridement Size (cm) - Width 11 -Post Debridement Size (cm) - Depth 5.0 -Total Square Cm 49.5 -Wound/Ulcer Outcome Not Healed -Ulcer Cleansing Rinsed/ Irrigated with Saline -Foul Odor after Cleansing No -Bioengineered Tissue No -Bleeding Controlled with Pressure -Other tunnel at 5:00- --12.0cm -Offloading No -Treatment Response Procedure Tolerated Well [See Physician Procedure note for Specifics] Pain Scale: 0-10 Numeric [Pain] -Is Patient Pain Free? Yes Musculoskeletal: No Muscle Wasting Neurological: Neuro grossly intact Psych/Mental Status: Normal Affect, Appropriate - she is in good spirits today Debridement Note Post-Debridement Measurements/Treatment WC - Nurse 2 - General Ulcer CM Notes Start: 04/14/19 09:19 Freq: Status: Active Protocol: Activity Type Activity Date Activity User E-Sign Co-Sign Detail Recorded Client Recorded Date Recorded By Document 04/14/19 09:42 SHIR[facility] [id number] 04/14/19 09:43 SHIRA 04/14/19 09:42 Wound Center Nurse 2 #8 Sacrum -Time 09:43 -Correct Patient Yes -Correct Side, Site, Position Yes -Correct Procedure Yes -Procedure Performed Yes -Type of Procedure Debridement -Clinical Debridement Muscle -Post Debridement Size (cm) - Length 4.5 -Post Debridement Size (cm) - Width 11 -Post Debridement Size (cm) - Depth 5.0 -Total Square Cm 49.5 -Wound/Ulcer Outcome Not Healed -Ulcer Cleansing Rinsed/ Irrigated with Saline -Foul Odor after Cleansing No -Bioengineered Tissue No -Bleeding Controlled with Pressure -Other tunnel at 5:00- --12.0cm -Offloading No -Treatment Response Procedure Tolerated Well Pain Scale: 0-10 Numeric Is Patient Pain Free? Yes Wound debrided: sacral ulcer Laterality: Not Applicable Type of Debridement: Excisional debridement Anesthesia Used: 5% Lidocaine Gel Depth: Down to and including healthy tissue, in the subcutaneous layer, to muscle, to bone Percentage of wound debrided: 100 Instrument Used: 7mm curette Tissue Removed: Subcutaneous tissue and slough into the muscle and bone is palpable Severity: Fat Layer Exposed Amount of bleeding with debridement: Moderate Bleeding Controlled with: Pressure, Compression and gauze, Silver Nitrate - patient had an area in the center of the ulcer on the bone that required increased length of pressure and silver nitrate to get it to stop bleeding. Patient tolerated procedure well Assessment/Plan Active Problems (Last Reviewed 05/16/18 @ 14:58 by Raúl Villareal DO) Debility (Chronic) Osteomyelitis of pelvis (Chronic) Morbid obesity with BMI of 40.0-44.9, adult (Chronic) Pressure ulcer of sacral region, stage 4 (Chronic) Assessment: 1. Sacral pressure sore, Stage IV. 2. History of osteomyelitis. 3. s/p repair colovaginal fistula. 4. s/p excision sacral pressure sore, Stage IV, with partial ostectomy for osteomyelitis. 5. Recurrent hypergranulation tissue. 6. MRSA. Plan: Continue wound VAC at 150 mmHg continuous suction to be changed three times per week. Surgery 03/17/19- Excision sacral pressure sore, Stage IV, with partial ostectomy for osteomyeiltis (71.5 cm2) and placement of AmnioFill placental connective tissue powder, 1000 mg. Pathology from surgery showed skin and soft tissue with acute and chronic inflammation and the saral bone showed acute osteomyelitis. Surgical culture showed Corynebacterium striatum and Annaerobic cocci. Prealbumin 20.7 from 03/18/19. Encourage nutritional supplementation with protein to help the healing process. She is still reluctant to proceed with a flap because she doesn't want to be on bedrest postop. With the persistent recurrent hypergranulation tissue despite aggressive efforts at debridement at the wound center, she would be best served with another maintenance operative debridement to remove the excess hypergranulation tissue. She was tearful and has agreed to the operative debridement. Will also biopsy the bone as well because of her history of osteomyelitis. Surgery would be under general anesthesia with a surgical observation overnight stay in the hospital. The VAC will be placed the following day. Patient was informed of the risks and complications of the procedure including alternatives to surgery. These were discussed with her personally. She voices understanding and wishes to proceed. After the operative debridement, if osteomyelitis is present, then IV antibiotics would be necessary before proceeding with a muslce flap. Followup 1 week. Code Visit Office Visits / Consults: [id number] OV L3 Est - 25 modifier [id number]: [id number] Magalys musc/fascia 20 sq cm/< Add On Codes: 98684 Magalys musc/fascia add-on - x2
[2019-04-21 09:07] VITALS: BP 145/72; PULSE 106; RESP 18; TEMP 36.3; BMI 36.6
--- NOTE | 2019-04-21 23:08 | PCM.WC.PN ---
Type of Wound Date of Service: 04/21/19 Chief Complaint: Sacral pressure sore, Stage IV. History of Wound: Surgery 03/17/19 - Excision sacral pressure sore, Stage IV, with partial ostectomy for osteomyeiltis (71.5 cm2) and placement of AmnioFill placental connective tissue powder, 1000 mg. Wound Care - VAC. Operative culture - Corynebacterium striatum and Anaerobic cocci. She was treated wt Doxycycline, Keflex, and Flagyl and has completed them. She did have a MRSA culture in 01/20. Pathology - acute osteomyelitis. Prealbumin from 03/18/19 was 20.7. Encourage nutritional supplementation with protein to help the healing process. Today she denies fever. Her appetite is ok. Progress of Wound: Improved. - Physical Exam Vital Signs Temp Pulse Resp BP Pulse Ox 97.3 F L 106 H 18 145/72 H 94 04/21/19 09:07 04/21/19 09:07 04/21/19 09:07 04/21/19 09:07 03/04/19 00:28 Wound Measurements and Assessment WC - Nurse 1 - General Ulcer Measurement Start: 04/14/19 09:19 Freq: Status: Active Protocol: Activity Type Activity Date Activity User E-Sign Co-Sign Detail Recorded Client Recorded Date Recorded By Document 04/21/19 09:07 MW [id number] 04/21/19 09:18 MW 04/21/19 09:07 Wound Center Nurse 1 [Ulcer Assessment] #8 Sacrum -Combined with other wound No -Current Size (cm) - Length 4.6 -Current Size (cm) - Width 10.5 -Current Size (cm) - Depth 3.6 -Total Square Cm 48.30 -Date of Last Picture (Recall this 04/21/19 field) -Photo Taken Yes -Epithelialization Small 1-33% -Tunneling No -Undermining/Tunneling No -Circular Undermining No -Exudate Amt Medium -Exudate Type Serosanguineous -Wound Margin Distinct, Outline Attached -Granulation Amt Large (67-100%) -Granulation Quality Red -Slough/Fibrin Yes -Necrosis Amt Small (1-33%) -Necrotic Tissue Type Adherent Slough -Structure Exposed Bone -Texture (Amanda-wound Skin Appearance) Assessed, Scarring -Moisture (Amanda-wound Skin Appearance No Abnormality, ) Assessed -Color (Amanda-wound Skin Appearance) No Abnormality, Assessed -Temperature (Amanda-wound Skin No Abnormality Appearance) (Pt Warm) -Tenderness on Palpation (Amanda-wound Yes Skin Appearance) -Ulcer Cleansing soap and water -Foul Odor after Cleansing No -Anesthetic Used 4% Lidocaine Solution [Edema Assessment] -Lower Limb Edema Present No WC - Nurse 2 - General Ulcer CM Notes Start: 04/14/19 09:19 Freq: Status: Active Protocol: Activity Type Activity Date Activity User E-Sign Co-Sign Detail Recorded Client Recorded Date Recorded By Document 04/21/19 09:43 [id number] 04/21/19 09:44 04/21/19 09:43 Wound Center Nurse 2 [Procedure/Treatment] #8 Sacrum -Time 09:43 -Correct Patient Yes -Correct Side, Site, Position Yes -Correct Procedure Yes -Procedure Performed Yes -Type of Procedure Debridement -Clinical Debridement Muscle -Post Debridement Size (cm) - Length 4.6 -Post Debridement Size (cm) - Width 10.6 -Post Debridement Size (cm) - Depth 3.6 -Total Square Cm 48.76 -Wound/Ulcer Outcome Not Healed -Ulcer Cleansing Rinsed/ Irrigated with Saline -Foul Odor after Cleansing No -Bioengineered Tissue No -Bleeding Controlled with Pressure -Offloading No -Treatment Response Procedure Tolerated Well [See Physician Procedure note for Specifics] Pain Scale: 0-10 Numeric [Pain] -Is Patient Pain Free? Yes Debridement Note Post-Debridement Measurements/Treatment WC - Nurse 2 - General Ulcer CM Notes Start: 04/14/19 09:19 Freq: Status: Active Protocol: Activity Type Activity Date Activity User E-Sign Co-Sign Detail Recorded Client Recorded Date Recorded By Document 04/14/19 09:42 [id number] 04/14/19 09:43 Document 04/21/19 09:43 [id number] 04/21/19 09:44 04/14/19 04/21/19 09:42 09:43 Wound Center Nurse 2 #8 Sacrum -Time 09:43 09:43 -Correct Patient Yes Yes -Correct Side, Site, Position Yes Yes -Correct Procedure Yes Yes -Procedure Performed Yes Yes -Type of Procedure Debridement Debridement -Clinical Debridement Muscle Muscle -Post Debridement Size (cm) - Length 4.5 4.6 -Post Debridement Size (cm) - Width 11 10.6 -Post Debridement Size (cm) - Depth 5.0 3.6 -Total Square Cm 49.5 48.76 -Wound/Ulcer Outcome Not Healed Not Healed -Ulcer Cleansing Rinsed/ Rinsed/ Irrigated with Irrigated with Saline Saline -Foul Odor after Cleansing No No -Bioengineered Tissue No No -Bleeding Controlled with Pressure Pressure -Other tunnel at 5:00- --12.0cm -Offloading No No -Treatment Response Procedure Procedure Tolerated Well Tolerated Well Pain Scale: 0-10 Numeric Is Patient Pain Free? Yes Yes Wound debrided: #8 Sacral area. Laterality: Not Applicable Wound Grade/Stage: IV. Type of Debridement: Excisional debridement Anesthesia Used: 4% Lidocaine Solution Depth: Down to and including healthy tissue, in the subcutaneous layer, to muscle, to bone - bone is palpable but not debrided. Percentage of wound debrided: 100 Instrument Used: 7mm curette Tissue Removed: subcutaneous tissue and muscle. Severity: Fat Layer Exposed - muscle is exposed. bone is exposed but not debrided. Amount of bleeding with debridement: Mild Bleeding Controlled with: Pressure Patient tolerated procedure well Assessment/Plan Active Problems (Last Updated 04/18/19 @ 13:58 by PAPI Jaramillo) Pressure ulcer of sacral region, stage 4 (Chronic) Sacral osteomyelitis (Chronic) Anxiety (Chronic) Anemia, chronic disease (Chronic) Body mass index (bmi) 36.0-36.9, adult (Chronic) Assessment: 1. Sacral pressure sore, Stage IV. 2. Osteomyelitis. 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 5. Recurrent hypergranulation tissue sacral pressure sore. 6. s/p excision sacral pressure sore, Stage IV, with partial ostectomy for osteomyeiltis (71.5 cm2) and placement of AmnioFill placental connective tissue powder, 1000 mg. Plan: Continue wound VAC at 150 mmHg continuous suction to be changed three times per week. Operative culture showed Corynebacterium striatum and Anaerobic cocci. She was treated with Doxycycline, Keflex, and Flagyl and has finished them. Pathology showed acute osteomyelitis. Since minimial hypergranulation tissue is present, it was recommended to the patient to proceed with wound closure with a large lumbar bilobed fasciocutaneous flap before more hypergranulation tissue has a chance to reform. Since no muscle is involved, bedrest will be for at least 2 weeks instead of 6 weeks. With the recent diagnosis of osteomyelitis, will treat perioperative with IV Vancomycin. Patient was informed of the risks and complications of the procedure including alternatives to surgery. These were discussed with her personally. She voices understanding and wishes to proceed. The flap surgery is scheduled for this 04/25/19. Followup after surgery. Code Visit Wound Center Charges CPT - 22681 ICD-10 - V58.49, L89.154, M86.9, A49.02, L92.9
== END 2019-05-03 23:59 ==
LOC: WC 09:00
PROVIDERS: Family Provider Family Medicine Geriatric Medicine; PCP Family Medicine Geriatric Medicine; Referring Provider Internal Medicine; Visit Provider Surgery
DX: L89.154 Pressure ulcer of sacral region, stage 4 (principal); E66.01 Morbid (severe) obesity due to excess calories; Z68.41 Body mass index [BMI] 40.0-44.9, adult; Z71.3 Dietary counseling and surveillance; M86.68 Other chronic osteomyelitis, other site; Z86.14 Personal history of Methicillin resistant Staphylococcus aureus infection
CPT/HCPCS: 11043; 11046; 97605; 99213; G0463

== ENCOUNTER 2019-04-25 09:10 | Inpatient (IN) | payer MEDICARE, OTHER, SELFPAY ==
[2019-03-21 14:50] VITALS: BMI 36.6
[2019-04-23 14:31] VITALS: BMI 36.8
--- NOTE | 2019-04-24 21:43 | HP.PCM_ITS ---
History and Physical Date of Admission: 04/25/19 HISTORY OF PRESENT ILLNESS 68 year old woman presents for further operative excision of her sacral pressure sore because of the development of severe hypergranulation tissue. Wound care is hampered with the VAC because of the hypergranulation tissue. After her last excision of her sacral pressure sore in 05/21, her bone pathology was positive for osteomyelitis. Her bone culture was positive for corynebacterium minutissimum and Staphylococcus epidermidis. She received IV Vancomycin for 6 weeks. At the time of her pressure sore, she was found to have a colovaginal fistula that was surgically repaired in 12/19 at [facility]. She had additional surgery on 09/09/18 where she further operative excision of her sacral pressure sore because of persistence of hypergranulation tissue. Operative culture showed Actinomyces odontolyticus. She was placed on Doxycycline and finished them. Recent wound culture from 01/29/19 showed MRSA. She was also placed on Doxycycline and has finished them. She had additional surgical excision because of the hypergranulation tissue, and on 03/17/19 she underwent excision sacral pressure sore with partial ostectomy for osteomyelitis. Soft tissue culture showed Anaerobic cocci. Pathology was positive for osteomyelitis. She was discharged on Keflex, Doxycycline, and Flagyl. She presents today for further operative debridement in preparation for wound closure with a large bilobed skin flap or fasciocutaneous flap. PAST MEDICAL HISTORY Depression. GERD. Colovaginal fistula. Hypertension. Hypothyroidism. Neuropathy. Osteomyelitis. Anxiety. Anemia. Atrial fibrillation. Back pain. MRSA. PAST SURGICAL HISTORY Hysterectomy. Uterine ablation. D&C. Excision of sacral pressure sore - 04/20 Repair of colovaginal fistula - 12/19 Excision sacral pressure sore, Stage IV, with partial ostectomy for osteomyelitis - 05/14/18 Excision sacral pressure sore, Stage IV, with partial ostectomy for osteomyelitis - 09/09/18 Excision sacral pressure sore, Stage IV, with partial ostectomy for ost eomyelitis (71.5 cm2) and placement of AmnioFill placental connective tissue powder, 1000 mg - 03/17/19 MEDICATIONS Vitamin C. Aspirin. Vitamin D3. Synthroid. Omeprazole. K-dur. Neurontin. Iron supplement. Protein shakes. Linzess. Fish oil. Doxycycline - just finished. ALLERGIES Bee venom. Skelaxin. FAMILY HISTORY Positive for COPD, Lung cancer, Myocardial infarction. SOCIAL HISTORY Patient is a former smoker. Patient does not drink alcohol. REVIEW OF SYSTEMS General - Denies fever, fatigue, and weight loss. Eyes - Denies cataracts and glaucoma. ENT - Denies nasal congestion and sore throat. Endocrine - Denies excessive thirst and urination. Skin - Denies suspicious lesions and skin cancer. Has sacral pressure sore with persistent hypergranulation tissue. Musculoskeletal - Denies joint pain, joint stiffness, weakness of muscles and joints, back pain, and arthritis. Neuro - Denies headaches. Cardiovascular - Denies chest pain, fatigue, and shortness of breath with exertion. Psych - Denies anxiety. Has depression. Respiratory - Denies chronic cough and shortness of breath. Gastrointestinal - Denies nausea, vomiting, diarrhea, and constipation. had repair colovaginal fistula. Hematologic - Denies abnormal bruising and bleeding. Genitourinary - Denies hematuria and urinary frequency. PHYSICAL EXAMINATION General - Alert and Oriented HEENT - PERRL. EOMI. Throat is clear. Neck - Supple and nontender. No cervical adenopathy. Lungs - Clear to auscultation. Heart - Regular rate and rhythm. Abdomen - Soft and nondistended. Extremities - FROM. No axillary adenopathy. Radial pulses are palpable. Back - On the sacral area is a pressure sore that extends to the bone. Bone is exposed. It is a Stage IV. Measures 10.5 x 4.5 x 3.5 cm. There is some circular undermining measuring about 2 cm. Some abnormal bursal scar tissue seen. No fluctuance or purulent drainage noted. Neuro - CN II-XII grossly intact. Psych - Normal mood and affect. ASSESSMENT 1. Sacral pressure sore, Stage IV. 2. Osteomyelitis. 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 PLAN Currently she has the VAC NPWT for the sacral pressure sore. Patient had recent excision of her sacral pressure sore because of persistent hypergranulation tissue which is hindering the healing process. She presents today for further wound preparation for wound closure with a large bilobed skin flap or fasciocutaneous flap. Surgery will be under general anesthesia. She understands the necessity of further surgery and wishes to proceed. Patient was informed of the risks and co mplications of the procedure including alternatives to surgery. These were discussed with her personally. She voices understanding and wishes to proceed. Will treat perioperatively with Vancomycin because of the MRSA. Anticipate increased metabolic demands from the wound and the surgery. Will check a Prealbumin and encourage nutritional supplementation with protein to help the healing process. Tissue and bone will be sent to Pathology and Microbiology. A positive culture will necessitate antibiotic therapy. Based on her history of MRSA and the diagnosis of osteomyelitis, will continue IV antibiotics postop. For the skin flap, there will be 2 weeks bedrest and possibly more based on the healing of the flap. She will have drains in for 2 weeks.
[2019-04-25] VITALS (10 sets, daily range): BP systolic 96–141; BP diastolic 49–60; PULSE 80–105; RESP 16–20; TEMP 36.2–37.5; O2SAT 93–96; BMI 36.9
[2019-04-25] MEDS: Lactated Ringers 1,000 ML 100 ML IV ×3 (09:45→15:30)
[2019-04-25] MEDS: Vancomycin IV 1,000 MG/200 ML BAG 200 MG IV ×2 (09:49→22:31)
--- NOTE | 2019-04-25 10:50 | PRES_PTH ---
PATIENT: CHARISSA GUNTER LOC: MS3 U#:[id number] AGE/SX: 68/F ROOM: [facility] – [place] RE04/25/[address]: Dr. Regino Hansen MD : 1950 BED: 1 DIS: 04/28/2019 SPEC #: [id number] RECD: 04/25/19 16:18 STATUS: EUSEBIO RERoel #: [id number] KATY: 04/25/19 10:[address]: Regino Hansen DEPT: SURGICAL PATHOLOGY RECD BY: Amna Guthrie ENTERED: 04/28/19 11:14 SP TYPE: PRESS SORE OTHR DR: Dr. Chema Sanchez MD Tissues: A - Ischium, NOS B - Ischium, NOS Procedures: Decalcification bone/plaque Surgery Specimen Level III HEADER OPERATION: Excision debridement sacral pressure sore with partial ostectomy PRE-OP DIAGNOSIS: Sacral pressure sore, stage IV, osteomyelitis, MRSA, s/p repair colovaginal fistula TISSUE SUBMITTED: A. Soft tissue, sacral area, B. Bone, sacral area MICROSCOPIC DIAGNOSIS A. Soft tissue sacral area, debridement: Pieces of skin with underlying tissue and soft tissue with extensive ulceration, associated acute and chronic inflammation, granulation tissue reaction and fibrosis. B. Bone sacral area: Pieces of bone with reactive changes, chronic inflammation and fibrosis. Negative for acute osteomyelitis. BRANDO:andrew 05/02/19 MICROSCOPIC DESCRIPTION Slides are reviewed. GROSS DESCRIPTION A - Received in fixative is one container labeled with the patient's name and designated soft tissue sacral area. The specimen consists of a piece of skin with underlying tissue measuring 16 x 6 cm and up to 4 cm in thickness. The skin surface shows extensive area of ulceration. Also present in the container are multiple fragments of adipose tissue measuring in aggregate 15 x 10 x 3 cm. No mass lesion is identified. Digital Solution Architect sections are submitted in one cassette. B - Received in fixative is one container labeled with the patient's name and designated bone sacral area. The specimen consists of multiple pieces of bone that in aggregate measure 1.5 x 1 x 0.3 cm. The entire specimen is submitted in one cassette after decalcification. / BRANDO:andrew 04/28/19 TC:2 CPT: 00274 x2, 88216
[2019-04-25] MEDS: Mupirocin Ointment 22gm Tube 1 APPLIC (15:00)
--- NOTE | 2019-04-25 15:39 | OP.PCM_ITS ---
Report of Operation Date of Procedure: 04/25/19 Pre-Operative Diagnosis: 1. Sacral pressure sore, Stage IV. 2. Osteomyelitis. 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 Post-Operative Diagnosis: Same. Surgery/Procedure Performed:: 1. Excision sacral pressure sore, Stage IV, with partial ostectomy for osteomyelitis. 2. Reconstruction with lumbar bilobed fasciocutaneous transposition flap (255 cm2) and placement of AmnioFill placental connective tissue powder, 1000 mg.. Description of Surgical Findings:: 68 year old woman presents for further operative excision of her sacral pressure sore because of the development of severe hypergranulation tissue. Wound care is hampered with the VAC because of the hypergranulation tissue. After her last excision of her sacral pressure sore in 05/21, her bone pathology was positive for osteomyelitis. Her bone culture was positive for corynebacterium minutissimum and Staphylococcus epidermidis. She received IV Vancomycin for 6 weeks. At the time of her pressure sore, she was found to have a colovaginal fistula that was surgically repaired in 12/19 at [facility]. She had additional surgery on 09/09/18 where she further operative excision of her sacral pressure sore because of persistence of hypergranulation tissue. Operative culture showed Actinomyces odontolyticus. She was placed on Doxycycline and finished them. Recent wound culture from 01/29/19 showed MRSA. She was also placed on Doxycycline and has finished them. She had additional surgical excision because of the hypergranulation tissue, and on 03/17/19 she underwent excision sacral pressure sore with partial ostectomy for osteomyelitis. Soft tissue culture showed Anaerobic cocci. Pathology was positive for osteomyelitis. She was discharged on Keflex, Doxycycline, and Flagyl. She presents today for further operative debridement in preparation for wound closure with a large bilobed skin flap or fasciocutaneous flap. Patient was informed of the risks and complications of the procedure including alternatives to surgery. These were discussed with the patient personally. Patient voices understanding and wishes to proceed. IV Fluids - 2100 ml. Urine Output - 600 ml. I used Conner absorbable hemostat, (I used 3 vials). Reference Number - [id number]. Lot Number - [id number]. Expiration - January 30, 2024. (2 vials). Reference Number - [id number]. Lot Number - [id number]. Expiration - March 31, 2023. I used Amnio-Fill Placental Connective Tissue Powder, (1000 mg). Catalog Number - [id number]. Lot Number - [id number]. Expiration - June 04, 2023. positive printer operator: Phyllis Mcdaniel. Type of Anesthesia:: General Specimen's removed: 1. Sacral pressure sore soft tissue to Pathology and Microbiology. 2. Sacral pressure sore bone to Pathology and Microbiology. Drains: Shaq x4. Estimated Blood Loss (mL): 350 ml. Fluids Replaced: 2700 ml (IV Fluids 2100 ml, Urine Output 600 ml). Description of Procedure: Patient was taken to OR in supine position and was placed under general anesthesia. She was placed in the prone position. The sacral pressure sore and back areas were prepped and draped in the usual fashion. SCD's were placed for DVT prophylaxis. Perioperative antibiotics were given intravenously. Using xylocaine with epinephrine, the sacral pressure sore was infiltrated. After waiting 5 minutes for the anesthetic to take effect, I proceeded with excision of the pressure sore including the undermined areas. When I got down to the bone, I proceeded with partial ostectomy for osteomyelitis with rongeurs. A rasp was used to smooth out the bony edges. Half the soft tissue and half the bone was sent to Pathology for analysis to rule out carcinoma and to evaluate for osteomyelitis. Half the soft tissue and half the bone was sent to Microbiology for culture. A positive culture will necessitate antibiotic therapy. She is being treated perioperatively with Vancomycin for her recent culture that showed MRSA. I then designed a large bilobed flap based on the left lumbar area. These markings were infiltrated with xylocaine with epinephrine. Incisions were made and this large bilobed flap was dissected down to the fascia. I elevated the fascia as a fasciocutaneous flap based on the left lumbar perforators. The remaining skin edges were dissected at the level of the fascia to aid in wound closure. The wound was irrigated with Irrisept 0.05% Chlorhexidine solution. This was followed with saline irrigation. Hemostasis was obtained with electrocautery. I placed 4 size 15 Shaq drains through separate incisions laterally and secured to the skin with 3-0 Nylon suture. I then sprayed Amnio-Fill Placental Connective Tissue Powder over the sacral bone to help with healing of the overlying flap. To minimize seroma formation, I sprayed Conner absorbable hemostat into the areas of the flap dissection. I used 3 vials. The large bilobed flap was then transposed into the sacral defect and closed in a multiple layered fashion with 2-0 Vicryl figure of eight interrupted sutures for the fascia layer. The deep dermis and subcutaneous tissue was approximated with 3-0 Monocryl interrupted sutures. The skin was approximated with 3-0 Prolene simple interrupted and vertical mattress interrupted sutures. Antibiotic ointment was applied to the suture line followed by Kerlix gauze and ABD pads compression dressing. An abdominal wall binder was then placed to help minimize seroma formation in the back area. The size of the wound and the size of the flap needed to close the defect was 255 cm2. At the end of the procedure, there was no evidence of hematoma. The flaps were soft with no evidence of vascular compromise. Patient tolerated the procedure well and was sent to PACU in satisfactory condi tion. Patient will be sent upstairs for continued postop care. She will continue bedrest for the healing of this flap. She will continue IV Vancomycin until the operative cultures are available. Grafts/Implants Used: Amnio-Fill Placental Connective Tissue Powder. - Complications None. - Admit VTE Documentation VTE Present on Admission: No VTE Mechan Device Prophylaxis: SCD's VTE Pharm Prophylaxis ordered?: Yes Code Visit Surgery Charges CPT - 24887-45 ICD-10 - L89.154, M86.9, A49.02 41122 L89.154, M86.9, A49.02 38106 L89.154, M86.9, A49.02 45388 L89.154, M86.9, A49.02 06294 L89.154, M86.9, A49.02 38874 L89.154, M86.9, A49.02 16358 L89.154, M86.9, A49.02 73187 L89.154, M86.9, A49.02 39228 L89.154, M86.9, A49.02
--- NOTE | 2019-04-25 17:07 | PCM.RX.CS ---
Consult Pharmacy has been consulted to manage selected antiobiotic: Vancomycin Type of Consult: New start Suspected Infection: Skin/Soft tissue Prior Doses of Antibiotics Received/Current Regimen: Vancomycin 1000mg IV x1 preop 04/25/19 at 0949 Weight used for dosin kg Estimated Creatinine Clearance: 47ml/min Goal Trough: 15-20 mcg/mL Pharmacy Plan for Drug Dosing: Based off of pt's weight and CrCl (from 04/05/19) recommend Vancomycin 1000mg Iv q12h to start 12 hours after the preop dose on 04/25/19. Trough to be drawn before the 4th total dose on 04/26/19 at 2130 Pharmacy Service will continue to monitor and adjust dosing as required. Follow-Up Labs: Trough Vancomycin - 04/26/19 at 2130
[2019-04-25] MEDS: Acetaminophen 500 MG Tablet 1000 MG PO ×2 (17:42→22:51)
[2019-04-25] MEDS: Baclofen 10 MG Tablet PO (18:23)
--- NOTE | 2019-04-25 19:29 | NURSING ---
Call from Carla from vocal music instructor and she states that a nurse will be in between [address] the line.
[2019-04-25] MEDS: Gabapentin 400 MG Capsule PO (22:32)
[2019-04-25] MEDS: Docusate Sodium 100 MG Capsule PO (22:32)
[2019-04-25] MEDS: metroNIDAZOLE 500 MG Tablet PO (22:33)
[2019-04-25] MEDS: 0.9% Saline Lock 10 ML Syringe IV (22:34)
[2019-04-26] MEDS: Lactated Ringers 1,000 ML 100 ML IV ×3 (01:35→20:42)
[2019-04-26 03:46] VITALS: BP 101/57; PULSE 100; RESP 16; TEMP 36.6; O2SAT 98
[2019-04-26] MEDS: Baclofen 10 MG Tablet PO ×3 (03:50→21:48)
[2019-04-26] MEDS: levoFLOXacin 500 MG Tablet PO (06:03)
[2019-04-26] MEDS: Gabapentin 400 MG Capsule PO ×3 (06:03→21:45)
[2019-04-26] MEDS: 0.9% Saline Lock 10 ML Syringe IV (06:03)
[2019-04-26] MEDS: Levothyroxine 25 MCG TABLET PO (06:04)
[2019-04-26] MEDS: Acetaminophen 500 MG Tablet 1000 MG PO ×3 (06:04→18:48)
[2019-04-26] MEDS: metroNIDAZOLE 500 MG Tablet PO ×3 (06:04→21:45)
[2019-04-26] MEDS: Enoxaparin 40 MG/0.4 ML Syringe SC (06:05)
[2019-04-26 06:06] LABS: Hematocrit 29.4 % (37-47); Hemoglobin 8.6 g/dL (12.0-15.0); Mean Corp Hgb Conc 29.3 g/dL (32-36); Mean Corpuscular Hgb 25.4 pg (27.0-32.0); Platelet Count 362 K/mm3 (150-450); RBC Distribution Width CV 15.2 % (11.6-14.6); RBC Distribution Width SD 48.6 fl (35.1-43.9); Red Blood Count 3.38 M/mm3 (4.2-5.4); White Blood Count 14.9 K/mm3 (4.4-11.0)
[2019-04-26 06:08] LABS: ALB/GLOB Ratio 0.8 RATIO (0.9-2.4); AST(SGOT) 13 U/L (15-37); Alanine Aminotransfer ALT/SGPT 13 U/L (13-56); Albumin, Serum 2.5 g/dL (3.2-5.0); Alkaline Phosphatase 57 U/L (45-117); Anion Gap 5 (5-15); BUN 10 mg/dL (7-18); BUN/Creat Ratio 16.3 RATIO (10-20); Calcium,Total 8.2 mg/dL (8.5-10.1); Chloride 106 mmol/L (98-107); Creatinine, Serum 0.62 mg/dL (0.55-1.02); EST Glomerular Filtration Rate 103 mL/min (>60); Erythrocyte Sedimentation Rate 29 mm/hr (0-30); Est Glom Filt Rate - Afr Amer 124 mL/min (>60); Estimated Creatinine Clearance 47.14 ml/min; Globulin 3.2 g/dL (2.2-4.2); Glucose 107 mg/dL (74-106); Potassium 3.8 mmol/L (3.5-5.1); Prealbumin 20.9 mg/dL (20.0-40.0); Protein, Total 5.7 g/dL (6.4-8.2); Sodium Level 140 mmol/L (136-145)
[2019-04-26 08:25] VITALS: BP 90/48; PULSE 100; RESP 20; TEMP 37.1; O2SAT 100
[2019-04-26] MEDS: Vancomycin IV 1,000 MG/200 ML BAG 200 MG IV ×2 (10:43→21:42)
[2019-04-26] MEDS: Docusate Sodium 100 MG Capsule PO ×2 (10:45→21:45)
[2019-04-26] MEDS: Magnesium Oxide 400 MG Tablet PO (10:45)
[2019-04-26] MEDS: Omega-3 Acid Ethyl Esters 1 GM Capsule PO (10:45)
[2019-04-26] MEDS: Ascorbic Acid 500 MG Tablet PO (10:46)
[2019-04-26] MEDS: Iron Polysaccharide Complex 150 MG CAPSULE PO (10:46)
[2019-04-26 10:50] VITALS: BP 98/59; PULSE 102; O2SAT 94
--- NOTE | 2019-04-26 12:59 | PCM.PN.SRG ---
Subjective: Postop #1 Patient is resting comfortably. Has incisional pain. - Physical Exam Vitals/I&O's: Vital Signs Temp Pulse Resp BP Pulse Ox 98.8 F 102 H 20 H 98/59 L 94 04/26/19 08:25 04/26/19 10:50 04/26/19 08:25 04/26/19 10:50 04/26/19 10:50 Oxygen Flow Rate (L/min) 2 Oxygen Delivery Method Room Air Weight: 215 lb 6.266 oz Body Mass Index (BMI) 36.9 Intake and Output for Last 24 Hours 04/24/19 04/25/19 04/26/19 23:59 23:59 23:59 Intake Total 2700 / 2700 2115 / 2115 Output Total 1104 / 1104 1755 / 1755 Balance 1596 / 1596 360 / 360 Drainage 154 ml yesterday. General: Alert, Oriented x3 HEENT: PERRLA, EOMI Oral: Moist Mucosa Neck: Supple Abdomen: Soft, Non-Distended Skin: Incision - dry and intact. No clinical evidence of hematoma. No vascular compromise noted on the skin flaps. Neurological: Cranial nerves II-XII grossly intact Psych/Mental Status: Normal Affect, Appropriate Microbiology Past 72 Hours 04/25/19 15:20 Bone - Back Wound Culture - Preliminary No growth-Final to follow 04/25/19 15:20 Tissue - Back Wound Culture - Preliminary No growth-Final to follow Laboratory Results 04/26/19 05:25: WBC 14.9 H, RBC 3.38 L, Hgb 8.6 L, Hct 29.4 L, MCV 87.0, MCH 25.4 L, MCHC 29.3 L, RDW Std Deviation 48.6 H, RDW Coeff of Yevgeniy 15.2 H, Plt Count 362, MPV 9.0, ESR 29 04/26/19 05:25: Sodium 140, Potassium 3.8, Chloride 106, Carbon Dioxide 29.0, Anion Gap 5, BUN 10, Creatinine 0.62, Estim Creat Clear Calc 47.14, Est GFR (MDRD) Af Amer 124, Est GFR (MDRD) Non-Af 103, BUN/Creatinine Ratio 16.3, Glucose 107 H, Calcium 8.2 L, Total Bilirubin 0.30, AST 13 L, ALT 13, Alkaline Phosphatase 57, C-React Prot Ext Range 63.10 H, Total Protein 5.7 L, Albumin 2.5 L, Globulin 3.2, Albumin/Globulin Ratio 0.8 L, Prealbumin 20.9 Current Medications Acetaminophen (Tylenol) 1,000 mg PO Q6 [facility] Last Admin: 04/26/19 12:10 Dose: 1,000 mg Documented by: Ascorbic Acid (Vitamin C) 500 mg PO DAILY@0800 [facility] Last Admin: 04/26/19 10:46 Dose: 500 mg Documented by: Baclofen (Lioresal) 10 mg PO TID PRN PRN Reason: back pain Last Admin: 04/26/19 10:49 Dose: 10 mg Documented by: Calcium Carbonate (Tums) 1,000 mg PO Q4H PRN PRN PRN Reason: INDIGESTION Diazepam (Valium) 5 mg PO 4X/DAY PRN PRN PRN Reason: SPASMS Docusate Sodium (Colace) 100 mg PO BID [facility] Last Admin: 04/26/19 10:45 Dose: 100 mg Documented by: Enoxaparin Sodium (Lovenox) 40 mg SC DAILY@0600 [facility] Last Admin: 04/26/19 06:05 Dose: 40 mg Documented by: Gabapentin (Neurontin) 400 mg PO TID [facility] Last Admin: 04/26/19 06:03 Dose: 400 mg Documented by: Hydromorphone HCl (Dilaudid Inj) 1 mg IV Q3H PRN PRN PRN Reason: Pain Score 6-10/10 Lactated Ringer's () 1,000 mls @ 100 mls/hr IV .Q10H [facility] Last Admin: 04/26/19 12:10 Dose: 100 mls/hr Documented by: Vancomycin IV Pharmacy to Dose (1 ea/ Sodium Chloride) 500 mls @ 250 mls/hr IV X1 PRN; Protocol PRN Reason: Rx to Dose Vancomycin HCl (Vancomycin) 1,000 mg in 200 mls @ 200 mls/hr IV Q12H [facility] Last Infusion: 04/26/19 12:09 Dose: Infused Documented by: Lactobacillus Acidophilus (Acidophilus) 1 tablet PO DAILY [facility] Last Admin: 04/26/19 10:46 Dose: 1 tablet Documented by: Levofloxacin (Levaquin Tablet) 500 mg PO DAILY@0600 [facility] Last Admin: 04/26/19 06:03 Dose: 500 mg Documented by: Levothyroxine Sodium (Synthroid) 25 mcg PO DAILY@0600 [facility] Last Admin: 04/26/19 06:04 Dose: 25 mcg Documented by: Magnesium Oxide (Mag-Ox 400) 400 mg PO DAILY [facility] Last Admin: 04/26/19 10:45 Dose: 400 mg Documented by: Metronidazole (Flagyl) 500 mg PO TID [facility] Last Admin: 04/26/19 06:04 Dose: 500 mg Documented by: Mupirocin (Bactroban) 1 applic TOPICAL DAILY [facility]; Protocol Last Admin: 04/26/19 11:04 Dose: Not Given Documented by: Nutritional Formula (Teofilo - [place] Fl[facility]) [facility] Last Admin: 04/26/19 10:46 Dose: 1 packet Documented by: [id number] Ethyl Esters (Lovaza) 1 gm PO DAILY [facility] Last Admin: 04/26/19 10:45 Dose: 1 gm Documented by: Ondansetron HCl (Zofran) 4 mg IV Q6H PRN PRN PRN Reason: NAUSEA Oxycodone HCl (Oxyir) 10 mg PO Q4H PRN PRN PRN Reason: Pain Score 6-10/10 Pantoprazole Sodium (Protonix) 40 mg PO 1400 [facility] Polysaccharide Iron Complex (Ferrex 150) [facility] Last Admin: 04/26/19 10:46 Dose: 150 mg Documented by: Potassium Chloride (K-Dur) 40 meq PO DAILY@0800 [facility] Last Admin: 04/26/19 10:46 Dose: 40 meq Documented by: Promethazine HCl (Phenergan Tablet) 25 mg PO Q4H PRN PRN PRN Reason: NAUSEA/VOMITING Sodium Chloride () 10 - 40 ml IV UD PRN PRN Reason: SALINE FLUSH Last Admin: 04/26/19 06:03 Dose: 30 ml Documented by: Medical Necessity - Tobacco Use Smoking Status: Former smoker Assessment/Plan All Active Problems (Last Updated 04/18/19 @ 13:58 by PAPI Jaramillo) Back pain (Acute) Heart murmur (Acute) Atrial fibrillation with RVR (Resolved) Clostridium difficile colitis (Resolved) Clostridium difficile infection (Resolved) Hypertension (Resolved) Rhabdomyolysis (Resolved) 1. Sacral pressure sore, Stage IV. 2. Osteomyelitis. 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 5. s/p excision sacral pressure sore, Stage IV, with partial ostectomy for osteomyelitis and reconstruction with lumbar bilobed fasciocutaneous transposition flap (255 cm2) and placement of AmnioFill placental connective tissue powder, 1000 mg. 6. Anemia of chronic disease, acute on chronic. Patient has incisional pain. Incisions are dry and intact. No clinical evidence of hematoma. Operative cultures are pending. Previous wound culture showed MRSA. Continue IV Vancomycin for her recent osteomyelitis. PICC line has been placed. Hgb is 8.6. She has anemia of chronic disease, acute on chronic. Her operative blood loss was 350 ml. There is no clinical evidence of hematoma. Also has IV dilution with positive I's/O's of 2 liters. Will recheck Hgb tomorrow. Continue Iron supplementation. Will have her evaluated for TCU. She is on bedrest for at least 2 weeks for healing of the complex flap. She will need superintendent terminal IV antibiotics for her recent MRSA and her osteomyelitis.
[2019-04-26 14:58] VITALS: BP 116/43; PULSE 100; RESP 18; TEMP 37.7; O2SAT 94
[2019-04-26] MEDS: Pantoprazole Sodium 40 MG Tablet PO (15:01)
--- NOTE | 2019-04-26 15:29 | CASEMGMT ---
Social Work Consult: Discharge Planning Informant: Ciara OLIVER CM Reviewed patient chart. Noting that patient discharge from TCU earlier this month and went home with home health care. Met with patient in room. Introduced self as well as social science analyst role. Patient agreeable to met with this social science analyst. Patient familiar to this social science analyst. Patient stating plan to return to TCU and to have spoken to Luz Elena last week. Patient stating to believe to have Medicare days left and that last stay on TCU was three weeks long. Patient aware that referral can be made and then social work will follow up with patient on Sunday on status of referral. Support provided. Telephone call to referral line. This social science analyst leaving voicemail with referral. Social Work to continue to follow. Cr BLOUNT, LORI
[2019-04-26 20:33] VITALS: BP 98/57; PULSE 100; RESP 18; TEMP 37.6; O2SAT 96
[2019-04-26 22:29] LABS: Vancomycin, Trough Level 6.3 ug/mL (5.0-15.0)
--- NOTE | 2019-04-26 23:54 | PCM.RX.CS ---
Consult Pharmacy has been consulted to manage selected antiobiotic: Vancomycin Type of Consult: Follow-up Labs: Sodium 140 mmol/L (136-145) 04/26/19 05:25 Potassium 3.8 mmol/L (3.5-5.1) 04/26/19 05:25 Chloride 106 mmol/L (98-107) 04/26/19 05:25 Carbon Dioxide 29.0 mmol/L (21.0-32.0) 04/26/19 05:25 Anion Gap 5 (5-15) 04/26/19 05:25 BUN 10 mg/dL (7-18) 04/26/19 05:25 Creatinine 0.62 mg/dL (0.55-1.02) 04/26/19 05:25 Est GFR (MDRD) Af Amer 124 mL/min (>60) 04/26/19 05:25 Est GFR (MDRD) Non-Af 103 mL/min (>60) 04/26/19 05:25 BUN/Creatinine Ratio 16.3 RATIO (10-20) 04/26/19 05:25 Glucose 107 mg/dL (74-106) H 04/26/19 05:25 Vancomycin Trough 6.3 ug/mL (5.0-15.0) 04/26/19 21:15 Microbiology: Microbiology 04/25/19 15:20 Bone - Back Gram Stain - Final 04/25/19 15:20 Bone - Back Wound Culture - Preliminary No growth-Final to follow 04/25/19 15:20 Tissue - Back Gram Stain - Final 04/25/19 15:20 Tissue - Back Wound Culture - Preliminary No growth-Final to follow Goal Trough: 15-20 mcg/mL Pharmacy Plan for Drug Dosing: Pharmacy Service will continue to monitor and adjust dosing as required. TROUGH 6.3 INCREASE TO 1250 Q8H NEXT TR 04/28 @ 3224 Follow-Up Labs: Trough Vancomycin Labs to be done on [date and time ordered]: 04/28 @ 6363
[2019-04-27] MEDS: Acetaminophen 500 MG Tablet 1000 MG PO ×4 (00:53→18:49)
[2019-04-27 03:16] VITALS: BP 97/58; PULSE 99; RESP 18; TEMP 37.7; O2SAT 97
[2019-04-27] MEDS: Lactated Ringers 1,000 ML 100 ML IV ×2 (06:23→18:50)
[2019-04-27] MEDS: Gabapentin 400 MG Capsule PO ×3 (06:37→22:12)
[2019-04-27] MEDS: metroNIDAZOLE 500 MG Tablet PO ×3 (06:37→22:12)
[2019-04-27] MEDS: Levothyroxine 25 MCG TABLET PO (06:37)
[2019-04-27] MEDS: levoFLOXacin 500 MG Tablet PO (06:37)
[2019-04-27] MEDS: Enoxaparin 40 MG/0.4 ML Syringe SC (06:39)
[2019-04-27 09:10] VITALS: BP 98/53; PULSE 95; RESP 18; TEMP 37.2; O2SAT 98
[2019-04-27] MEDS: Magnesium Oxide 400 MG Tablet PO (09:31)
[2019-04-27] MEDS: Docusate Sodium 100 MG Capsule PO ×2 (09:31→22:12)
[2019-04-27] MEDS: Omega-3 Acid Ethyl Esters 1 GM Capsule PO (09:31)
[2019-04-27] MEDS: Ascorbic Acid 500 MG Tablet PO (09:31)
[2019-04-27] MEDS: Iron Polysaccharide Complex 150 MG CAPSULE PO (09:33)
[2019-04-27 12:02] LABS: Hematocrit 27.4 % (37-47); Hemoglobin 8.2 g/dL (12.0-15.0); Mean Corp Hgb Conc 29.9 g/dL (32-36); Platelet Count 328 K/mm3 (150-450); RBC Distribution Width SD 47.5 fl (35.1-43.9); Red Blood Count 3.15 M/mm3 (4.2-5.4); White Blood Count 13.7 K/mm3 (4.4-11.0)
[2019-04-27 12:16] LABS: Anion Gap 5 (5-15); BUN 15 mg/dL (7-18); Calcium,Total 8.3 mg/dL (8.5-10.1); Chloride 112 mmol/L (98-107); Creatinine, Serum 0.45 mg/dL (0.55-1.02); EST Glomerular Filtration Rate 146 mL/min (>60); Est Glom Filt Rate - Afr Amer 177 mL/min (>60); Estimated Creatinine Clearance 47.14 ml/min; Glucose 100 mg/dL (74-106); Sodium Level 144 mmol/L (136-145)
[2019-04-27] MEDS: Pantoprazole Sodium 40 MG Tablet PO (13:04)
[2019-04-27 16:30] VITALS: BP 113/51; PULSE 90; RESP 16; TEMP 37.4; O2SAT 97
[2019-04-27] MEDS: Polyethylene Glycol 3350 17 GM PACKET PO (16:42)
--- NOTE | 2019-04-27 17:49 | PN.SURG_ITS ---
Subjective: Postop #2 Patient has incisional pain. - Physical Exam Vitals/I&O's: Vital Signs Temp Pulse Resp BP Pulse Ox 99.3 F H 90 16 113/51 L 97 04/27/19 16:30 04/27/19 16:30 04/27/19 16:30 04/27/19 16:30 04/27/19 16:30 Oxygen Flow Rate (L/min) 2 Oxygen Delivery Method Room Air Weight: 215 lb 6.266 oz Body Mass Index (BMI) 36.9 Intake and Output for Last 24 Hours 04/25/19 04/26/19 04/27/19 23:59 23:59 23:59 Intake Total 2700 / 2700 3670.00 / 3670.00 4040.00 / 4040.00 Output Total 1104 / 1104 4980 / 4980 2852 / 2852 Balance 1596 / 1596 -1310.00 / -1310.00 1188.00 / 1188.00 Drainage 655 ml yesterday. General: Alert, Oriented x3 HEENT: PERRLA, EOMI Oral: Moist Mucosa Neck: Supple Abdomen: Soft, Non-Distended Skin: Incision - dry and intact. No clinical evidence of hematoma. No vascular compromise noted on the skin flaps. Neurological: Cranial nerves II-XII grossly intact Psych/Mental Status: Normal Affect, Appropriate Microbiology Past 72 Hours 04/25/19 15:20 Bone - Back Gram Stain - Final 04/25/19 15:20 Bone - Back Wound Culture - Preliminary No growth-Final to follow 04/25/19 15:20 Tissue - Back Gram Stain - Final 04/25/19 15:20 Tissue - Back Wound Culture - Preliminary No growth-Final to follow Laboratory Results 04/26/19 21:15: Vancomycin Trough 6.3 04/27/19 11:43: WBC 13.7 H, RBC 3.15 L, Hgb 8.2 L, Hct 27.4 L, MCV 87.0, MCH 26.0 L, MCHC 29.9 L, RDW Std Deviation 47.5 H, RDW Coeff of Yevgeniy 15.0 H, Plt Count 328, MPV 9.0 04/27/19 11:43: Sodium 144, Potassium 4.0, Chloride 112 H, Carbon Dioxide 27.0, Anion Gap 5, BUN 15, Creatinine 0.45 L, Estim Creat Clear Calc 47.14, Est GFR (MDRD) Af Amer 177, Est GFR (MDRD) Non-Af 146, BUN/Creatinine Ratio 33.0 H, Glucose 100, Calcium 8.3 L Current Medications Acetaminophen (Tylenol) 1,000 mg PO Q6 [facility] Last Admin: 04/27/19 13:04 Dose: 1,000 mg Documented by: Ascorbic Acid (Vitamin C) 500 mg PO DAILY@0800 [facility] Last Admin: 04/27/19 09:31 Dose: 500 mg Documented by: Baclofen (Lioresal) 10 mg PO TID PRN PRN Reason: back pain Last Admin: 04/26/19 21:48 Dose: 10 mg Documented by: Calcium Carbonate (Tums) 1,000 mg PO Q4H PRN PRN PRN Reason: INDIGESTION Diazepam (Valium) 5 mg PO 4X/DAY PRN PRN PRN Reason: SPASMS Docusate Sodium (Colace) 100 mg PO BID [facility] Last Admin: 04/27/19 09:31 Dose: 100 mg Documented by: Enoxaparin Sodium (Lovenox) 40 mg SC DAILY@0600 [facility] Last Admin: 04/27/19 06:39 Dose: 40 mg Documented by: Gabapentin (Neurontin) 400 mg PO TID [facility] Last Admin: 04/27/19 13:04 Dose: 400 mg Documented by: Hydromorphone HCl (Dilaudid Inj) 1 mg IV Q3H PRN PRN PRN Reason: Pain Score 6-10/10 Lactated Ringer's () 1,000 mls @ 100 mls/hr IV .Q10H [facility] Last Infusion: 04/27/19 14:43 Dose: 100 mls/hr Documented by: Vancomycin IV Pharmacy to Dose (1 ea/ Sodium Chloride) 500 mls @ 250 mls/hr IV X1 PRN; Protocol PRN Reason: Rx to Dose Vancomycin HCl 1,250 mg/ (Sodium Chloride) 275 mls @ 167 mls/hr IV Q8H [facility] Last Infusion: 04/27/19 14:43 Dose: Infused Documented by: Lactobacillus Acidophilus (Acidophilus) 1 tablet PO DAILY [facility] Last Admin: 04/27/19 09:31 Dose: 1 tablet Documented by: Levofloxacin (Levaquin Tablet) 500 mg PO DAILY@0600 [facility] Last Admin: 04/27/19 06:37 Dose: 500 mg Documented by: Levothyroxine Sodium (Synthroid) 25 mcg PO DAILY@0600 [facility] Last Admin: 04/27/19 06:37 Dose: 25 mcg Documented by: Linaclotide (Linzess) 145 mcg PO DAILY [facility] Magnesium Oxide (Mag-Ox 400) 400 mg PO DAILY [facility] Last Admin: 04/27/19 09:31 Dose: 400 mg Documented by: Metronidazole (Flagyl) 500 mg PO TID [facility] Last Admin: 04/27/19 13:04 Dose: 500 mg Documented by: Mupirocin (Bactroban) 1 applic TOPICAL DAILY [facility]; Protocol Last Admin: 04/27/19 09:31 Dose: Not Given Documented by: Nutritional Formula (Teofilo - [place] Flavor) [facility] Last Admin: 04/27/19 16:42 Dose: 1 packet Documented by: [id number] Ethyl Esters (Lovaza) 1 gm PO DAILY [facility] Last Admin: 04/27/19 09:31 Dose: 1 gm Documented by: Ondansetron HCl (Zofran) 4 mg IV Q6H PRN PRN PRN Reason: NAUSEA Oxycodone HCl (Oxyir) 10 mg PO Q4H PRN PRN PRN Reason: Pain Score 6-10/10 Pantoprazole Sodium (Protonix) 40 mg PO 1400 [facility] Last Admin: 04/27/19 13:04 Dose: 40 mg Documented by: Polyethylene Glycol (Miralax) 17 gm PO BID [facility] Last Admin: 04/27/19 16:42 Dose: 17 gm Documented by: Polysaccharide Iron Complex (Ferrex 150) [facility] Last Admin: 04/27/19 09:33 Dose: 150 mg Documented by: Potassium Chloride (K-Dur) 40 meq PO DAILY@0800 [facility] Last Admin: 04/27/19 09:31 Dose: 40 meq Documented by: Promethazine HCl (Phenergan Tablet) 25 mg PO Q4H PRN PRN PRN Reason: NAUSEA/VOMITING Sodium Chloride () 10 - 40 ml IV UD PRN PRN Reason: SALINE FLUSH Last Admin: 04/26/19 06:03 Dose: 30 ml Documented by: Medical Necessity - Tobacco Use Smoking Status: Former smoker Assessment/Plan All Active Problems (Last Updated 04/18/19 @ 13:58 by PAPI Jaramillo) Back pain (Acute) Heart murmur (Acute) Atrial fibrillation with RVR (Resolved) Clostridium difficile colitis (Resolved) Clostridium difficile infection (Resolved) Hypertension (Resolved) Rhabdomyolysis (Resolved) 1. Sacral pressure sore, Stage IV. 2. Osteomyelitis. 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 5. s/p excision sacral pressure sore, Stage IV, with partial ostectomy for osteomyelitis and reconstruction with lumbar bilobed fasciocutaneous transposition flap (255 cm2) and placement of AmnioFill placental connective tissue powder, 1000 mg. 6. Anemia of chronic disease, acute on chronic. Patient has incisional pain. Incisions are dry and intact. No clinical evidence of hematoma. Operative cultures are pending. Previous wound culture showed MRSA. Continue IV Vancomycin for her recent osteomyelitis. PICC line has been placed. Prealbumin was 20.9. Encourage nutritional supplementation with protein to help the healing process. Hgb is 8.2 down from 8.6. She has anemia of chronic disease, acute on chronic. Her operative blood loss was 350 ml. There is no clinical evidence of hematoma. Also has IV dilution with positive I's/O's of 1.5 liters. Will recheck Hgb tomorrow. Continue Iron supplementation. Will transfuse it if decreases below 8 to help increase the healing process. Will have her evaluated for TCU. She is on bedrest for at least 2 weeks for healing of the complex flap. She will need prison IV antibiotics for her recent MRSA and her osteomyelitis.
[2019-04-27 21:06] VITALS: BP 128/56; PULSE 84; RESP 15; TEMP 36.9; O2SAT 96
[2019-04-27] MEDS: Baclofen 10 MG Tablet PO (21:20)
[2019-04-28] MEDS: Acetaminophen 500 MG Tablet 1000 MG PO ×3 (00:30→13:05)
[2019-04-28 04:00] VITALS: BP 110/57; PULSE 87; RESP 15; TEMP 36.5; O2SAT 94; O2SAT 95
[2019-04-28 05:45] LABS: Hematocrit 27.5 % (37-47); Hemoglobin 8.2 g/dL (12.0-15.0); Mean Corp Hgb Conc 29.8 g/dL (32-36); Mean Corpuscular Hgb 25.6 pg (27.0-32.0); Mean Corpuscular Volume 85.9 fL (81-99); Platelet Count 319 K/mm3 (150-450); RBC Distribution Width CV 14.9 % (11.6-14.6); RBC Distribution Width SD 46.8 fl (35.1-43.9); White Blood Count 11.8 K/mm3 (4.4-11.0)
[2019-04-28] MEDS: metroNIDAZOLE 500 MG Tablet PO ×2 (06:02→13:50)
[2019-04-28] MEDS: Enoxaparin 40 MG/0.4 ML Syringe SC (06:02)
[2019-04-28] MEDS: Gabapentin 400 MG Capsule PO ×2 (06:02→13:50)
[2019-04-28] MEDS: Levothyroxine 25 MCG TABLET PO (06:02)
[2019-04-28] MEDS: Lactated Ringers 1,000 ML 100 ML IV (06:05)
[2019-04-28] MEDS: levoFLOXacin 500 MG Tablet PO (06:17)
[2019-04-28 06:21] LABS: Vancomycin, Trough Level 14.2 ug/mL (5.0-15.0)
[2019-04-28 06:22] LABS: Anion Gap 4 (5-15); BUN 10 mg/dL (7-18); BUN/Creat Ratio 25.8 RATIO (10-20); Calcium,Total 8.6 mg/dL (8.5-10.1); Chloride 114 mmol/L (98-107); Creatinine, Serum 0.39 mg/dL (0.55-1.02); EST Glomerular Filtration Rate 175 mL/min (>60); Est Glom Filt Rate - Afr Amer 212 mL/min (>60); Estimated Creatinine Clearance 47.14 ml/min; Glucose 96 mg/dL (74-106); Potassium 3.6 mmol/L (3.5-5.1); Sodium Level 144 mmol/L (136-145)
[2019-04-28 08:05] VITALS: BP 148/82; PULSE 86; RESP 14; TEMP 37.1
[2019-04-28] MEDS: Iron Polysaccharide Complex 150 MG CAPSULE PO (08:26)
[2019-04-28] MEDS: Magnesium Oxide 400 MG Tablet PO (08:26)
[2019-04-28] MEDS: Ascorbic Acid 500 MG Tablet PO (08:27)
[2019-04-28] MEDS: Docusate Sodium 100 MG Capsule PO (08:27)
[2019-04-28] MEDS: Omega-3 Acid Ethyl Esters 1 GM Capsule PO (08:27)
[2019-04-28] MEDS: Polyethylene Glycol 3350 17 GM PACKET PO (08:34)
[2019-04-28 08:48] VITALS: BP 148/84; PULSE 73; RESP 18; TEMP 36.8; O2SAT 98
--- NOTE | 2019-04-28 09:38 | CASEMGMT ---
Addendum entered by Ksenia Ambriz 04/28/19 11:27: SW updated pt on acceptance to TCU. Original Note: Social Work Note SW placed a call to referral line and spoke with Sally. Sally confirms that she received referral and is able to accept pt today on TCU if medically cleared. Plan: TCU once medically cleared Ksenia Ambriz WATCH AND CLOCK REPAIR CLERK, REFINERY TECHNICIAN
--- NOTE | 2019-04-28 13:02 | TREXTCAR_ITS ---
- Diet 04/25/19 16:21 Diet: Regular Diet - Routine Orders/Code Status Grewal Catheter Size: 16 Change Grewal Catheter: monthly and as needed Routine Lab Work: CBC - qMonday., - - CMP, ESR, CRP, Vancomycin Trough qMonday. Pharmacy to dose the Vancomycin. Code Status: Full Code - Wound(s) BACK Wound Type: Surgical Incision Dressing Change: Bactroban ointment to suture line daily followed by Kerlix gauze ABD pads and abdominal wall binder. - Suggestions for Active Care Change Position every (hours): 2 Hours to sit in a chair: 0 - complete bedrest with overhead trapeze Times a day to sit in chair: 0 - complete bedrest with overhead trapeze - Therapies Weight Bearing: Non weight bearing - complete bedrest Physical Therapy: Eval and Treat - bedside only Occupational Therapy: Eval and Treat - bedside only - Allergies/Procedures Done in Hospital Allergies/Adverse Reactions: Allergies bee venom protein (honey bee) Allergy (Verified 04/25/19 09:26) Angioedema metaxalone [From Skelaxin] Allergy (Verified 04/25/19 09:26) Swelling Procedures: PICC line placement - Type of Care/Length of Stay Estimated LOS: More Than 30 Days Type of Care Needed: Skilled Rehab Potential: Fair Prognosis: Fair - Additional Orders/Day of Discharge H&P will serve as current which was dated: 04/24/19 Day of Discharge: 04/28/19 - Dietary and Speech Recommendations Dietitian Recommendations/Changes: Rec continue Regular diet and Teofilo 1 packet BID at [facility]. - Follow Up Care Primary Care Physician: Chema Sanchez Chi, MD [Primary Care Provider] - Please Follow Up With: Regino Hansen MD When: at wound center after discharge. call [phone] for appt.
--- NOTE | 2019-04-28 13:20 | PCM.DC.SUM ---
Discharge Date and Diagnosis Date of Admission: 04/25/19 Date of Discharge: 04/28/19 - Primary Discharge Diagnosis Sacral pressure sore, Stage IV. Osteomyelitis. Anemia of chronic disease, acute on chronic. - Secondary Discharge Diagnosis Aortic stenosis Debility Hypertension Atrial fibrillation Back pain Constipation Hypergranulation Secondary pulmonary arterial hypertension Non-rheumatic tricuspid valve insufficiency Colovaginal fistula Morbid obesity with BMI of 40.0-44.9, adult GERD (gastroesophageal reflux disease) Depression Hypothyroidism Neuropathy MRSA. Hospital Course and Treatment Imaging Results: None. Consultations 04/28/19 06:41 Consult: Onc/Wound/water purifier Routine Comment: Reason for Consult:: muscle flap incision Operations: - - 04/25/19 - 1. Excision sacral pressure sore, Stage IV, with partial ostectomy for osteomyelitis. 2. Reconstruction with lumbar bilobed fasciocutaneous transposition flap (255 cm2) and placement of AmnioFill placental connective tissue powder, 1000 mg.. Procedures: PICC line placement Summary of Care Provided: 68 year old woman presents for further operative excision of her sacral pressure sore because of the development of severe hypergranulation tissue. Wound care is hampered with the VAC because of the hypergranulation tissue. After her last excision of her sacral pressure sore in 05/21, her bone pathology was positive for osteomyelitis. Her bone culture was positive for corynebacterium minutissimum and Staphylococcus epidermidis. She received IV Vancomycin for 6 weeks. At the time of her pressure sore, she was found to have a colovaginal fistula that was surgically repaired in 12/19 at [facility]. She had additional surgery on 09/09/18 where she further operative excision of her sacral pressure sore because of persistence of hypergranulation tissue. Operative culture showed Actinomyces odontolyticus. She was placed on Doxycycline and finished them. Recent wound culture from 01/29/19 showed MRSA. She was also placed on Doxycycline and has finished them. She had additional surgical excision because of the hypergranulation tissue, and on 03/17/19 she underwent excision sacral pressure sore with partial ostectomy for osteomyelitis. Soft tissue culture showed Anaerobic cocci. Pathology was positive for osteomyelitis. She was discharged on Keflex, Doxycycline, and Flagyl. She presents today for further operative debridement in preparation for wound closure with a large bilobed skin flap or fasciocutaneous flap. On 04/25/19 she was taken to the operating room where she underwent excision sacral pressure sore, Stage IV, with partial ostectomy for osteomyelitis and reconstruction with lumbar bilobed fasciocutaneous transposition flap (255 cm2) and placement of AmnioFill placental connective tissue powder, 1000 mg. She tolerated the procedure well. A PICC line was placed as she was started on Vancomycin for her previous culture of MRSA and recent osteomyelitis. Operative cultures are pending. Pathology is pending. During her hospital stay, she remained afebrile. Her flap was pink and soft and viable during her hospital stay. Prealbumin was 20.9. Encourage nutritional supplementation with protein to help the healing process. Hgb decreased from 8.6 down to 8.2 at discharge. She has anemia of chronic disease, acute on chronic. Her operative blood loss was 350 ml. There is no clinical evidence of hematoma. Also has IV dilution with positive I's/O's of 1.5 liters. Continue Iron supplementation. Will recheck a Hgb at TCU. On the third postop day, she was approved to go to TCU. She is on bedrest and will continue at least 2 weeks for healing of the complex flap. Will remove the drains in 2-3 weeks. Will remove the sutures in 3 weeks. - Physical Exam Vitals/I&O's: Vital Signs Temp Pulse Resp BP Pulse Ox 98.3 F 73 18 148/84 H 98 04/28/19 08:48 04/28/19 08:48 04/28/19 08:48 04/28/19 08:48 04/28/19 08:48 Oxygen Flow Rate (L/min) 2 Oxygen Delivery Method Room Air Weight: 215 lb 6.266 oz Body Mass Index (BMI) 36.9 Intake and Output for Last 24 Hours 04/26/19 04/27/19 04/28/19 23:59 23:59 23:59 Intake Total 3670.00 / 3670.00 4993.33 / 4993.33 1150 / 1150 Output Total 4980 / 4980 5022 / 5022 1035 / 1035 Balance -1310.00 / -1310.00 -28.67 / -28.67 115 / 115 Microbiology Past 72 Hours 04/25/19 15:20 Tissue - Back Gram Stain - Final 04/25/19 15:20 Tissue - Back Wound Culture - Final No growth aerobically. 04/25/19 15:20 Tissue - Back Anaerobic Culture - Preliminary No growth in 48 hours. 04/25/19 15:20 Bone - Back Gram Stain - Final 04/25/19 15:20 Bone - Back Wound Culture - Final No growth aerobically. 04/25/19 15:20 Bone - Back Anaerobic Culture - Preliminary No growth in 48 hours. Laboratory Results 04/28/19 05:30: Vancomycin Trough 14.2 04/28/19 05:30: WBC 11.8 H, RBC 3.20 L, Hgb 8.2 L, Hct 27.5 L, MCV 85.9, MCH 25.6 L, MCHC 29.8 L, RDW Std Deviation 46.8 H, RDW Coeff of Yevgeniy 14.9 H, Plt Count 319, MPV 9.0 04/28/19 05:30: Sodium 144, Potassium 3.6, Chloride 114 H, Carbon Dioxide 26.0, Anion Gap 4 L, BUN 10, Creatinine 0.39 L, Estim Creat Clear Calc 47.14, Est GFR (MDRD) Af Amer 212, Est GFR (MDRD) Non-Af 175, BUN/Creatinine Ratio 25.8 H, Glucose 96, Calcium 8.6 Current Medications Acetaminophen (Tylenol) 1,000 mg PO Q6 [facility] Last Admin: 04/28/19 06:00 Dose: 1,000 mg Documented by: Ascorbic Acid (Vitamin C) 500 mg PO DAILY@0800 [facility] Last Admin: 04/28/19 08:27 Dose: 500 mg Documented by: Baclofen (Lioresal) 10 mg PO TID PRN PRN Reason: back pain Last Admin: 04/27/19 21:20 Dose: 10 mg Documented by: Calcium Carbonate (Tums) 1,000 mg PO Q4H PRN PRN PRN Reason: INDIGESTION Diazepam (Valium) 5 mg PO 4X/DAY PRN PRN PRN Reason: SPASMS Docusate Sodium (Colace) 100 mg PO BID [facility] Last Admin: 04/28/19 08:27 Dose: 100 mg Documented by: Enoxaparin Sodium (Lovenox) 40 mg SC DAILY@0600 [facility] Last Admin: 04/28/19 06:02 Dose: 40 mg Documented by: Gabapentin (Neurontin) 400 mg PO TID [facility] Last Admin: 04/28/19 06:02 Dose: 400 mg Documented by: Hydromorphone HCl (Dilaudid Inj) 1 mg IV Q3H PRN PRN PRN Reason: Pain Score 6-10/10 Lactated Ringer's () 1,000 mls @ 100 mls/hr IV .Q10H [facility] Last Admin: 04/28/19 06:05 Dose: 100 mls/hr Documented by: Vancomycin IV Pharmacy to Dose (1 ea/ Sodium Chloride) 500 mls @ 250 mls/hr IV X1 PRN; Protocol PRN Reason: Rx to Dose Vancomycin HCl 1,250 mg/ (Sodium Chloride) 275 mls @ 167 mls/hr IV Q8H [facility] Last Admin: 04/28/19 06:02 Dose: 167 mls/hr Documented by: Lactobacillus Acidophilus (Acidophilus) 1 tablet PO DAILY [facility] Last Admin: 04/28/19 08:27 Dose: 1 tablet Documented by: Levofloxacin (Levaquin Tablet) 500 mg PO DAILY@0600 [facility] Last Admin: 04/28/19 06:17 Dose: 500 mg Documented by: Levothyroxine Sodium (Synthroid) 25 mcg PO DAILY@0600 [facility] Last Admin: 04/28/19 06:02 Dose: 25 mcg Documented by: Linaclotide (Linzess) 145 mcg PO DAILY [facility] Last Admin: 04/28/19 08:29 Dose: Not Given Documented by: Magnesium Oxide (Mag-Ox 400) 400 mg PO DAILY [facility] Last Admin: 04/28/19 08:26 Dose: 400 mg Documented by: Metronidazole (Flagyl) 500 mg PO TID [facility] Last Admin: 04/28/19 06:02 Dose: 500 mg Documented by: Mupirocin (Bactroban) 1 applic TOPICAL DAILY [facility]; Protocol Last Admin: 04/28/19 08:30 Dose: Not Given Documented by: Nutritional Formula (Teofilo - [place] Flavor) 1 packet PO BIDCM [facility] Last Admin: 04/28/19 08:26 Dose: 1 packet Documented by: [id number] Ethyl Esters (Lovaza) 1 gm PO DAILY [facility] Last Admin: 04/28/19 08:27 Dose: 1 gm Documented by: Ondansetron HCl (Zofran) 4 mg IV Q6H PRN PRN PRN Reason: NAUSEA Oxycodone HCl (Oxyir) 10 mg PO Q4H PRN PRN PRN Reason: Pain Score 6-10/10 Pantoprazole Sodium (Protonix) 40 mg PO 1400 [facility] Last Admin: 04/27/19 13:04 Dose: 40 mg Documented by: Polyethylene Glycol (Miralax) 17 gm PO BID [facility] Last Admin: 04/28/19 08:34 Dose: 17 gm Documented by: Polysaccharide Iron Complex (Ferrex 150) 150 mg PO DAILYCM [facility] Last Admin: 04/28/19 08:26 Dose: 150 mg Documented by: Potassium Chloride (K-Dur) 40 meq PO DAILY@0800 [facility] Last Admin: 04/28/19 08:26 Dose: 40 meq Documented by: Promethazine HCl (Phenergan Tablet) 25 mg PO Q4H PRN PRN PRN Reason: NAUSEA/VOMITING Sodium Chloride () 10 - 40 ml IV UD PRN PRN Reason: SALINE FLUSH Last Admin: 04/26/19 06:03 Dose: 30 ml Documented by: Discharge Diet: No Restrictions, - - encourage nutritional supplementation with protein to help the healing process. Discharge Activity: May Not Shower, - - Bedrest. Weight Bearing Status: - - Bedrest Call your doctor if your incision/area has: Continuous Slow Oozing, Sudden Increased Bleeding, Increased Pain/ Swelling, Increased Redness, Foul Smelling Discharge, Swelling at the incision site Call your doctor if you observe: Fever of 101 or Higher, Coldness, Increased Pain, Shortness of breath, Chest pain, Calf discomfort, Uncontrolled pain Catheter: Grewal to large bag Drain: Suction - nicole drain x4 to bulb suction. Nursing to empty and record output every shift. Home Medications: Medications to take at Discharge Levothyroxine [Synthroid] 25 mcg PO DAILY 03/02/17 cholecalciferol (vitamin D3) 50,000 unit capsule 50,000 unit PO QMONTH 08/02/17 Ascorbic Acid 500 mg PO DAILY 08/21/17 Potassium Chloride [K-Dur] 40 meq PO DAILY 12/26/17 Omeprazole 40 mg PO 1400 04/11/18 omega-3 fatty acids 1,000 mg capsule 1,000 mg PO DAILY 04/19/18 Linacolotide [Linzess] 145 mcg PO DAILY PRN cap 07/08/18 Gabapentin [Neurontin] 400 mg PO TID 09/02/18 Iron Polysaccharide Complex [Ferrex 150] 150 mg PO DAILYCM #30 cap 09/12/18 Acetaminophen [Tylenol] 500 mg PO Q6H 03/12/19 Lactobacillus Acidophilus/Fos [Acidophilus Probiotic Tablet] 1 ea PO DAILY 03/12/19 Magnesium Oxide [Magnesium] 500 mg PO DAILY 03/12/19 Calcium Carbonate [Tums] 1,000 mg PO Q4H PRN PRN tab 04/01/19 Diclofenac [Voltaren] 50 mg PO BIDCM 04/18/19 Baclofen [Lioresal] 10 mg PO TID PRN #90 tab 04/28/19 Docusate Sodium [Colace] 100 mg PO BID 04/28/19 Enoxaparin [Lovenox] 40 mg SUBCUT DAILY@0600 04/28/19 Mupirocin [Bactroban] 1 applic TOPICAL DAILY 04/28/19 Nutritional Supplement [Teofilo - [place]ANGE FLAVOR] 1 packet PO BIDCM 04/28/19 Ondansetron [Zofran] 4 mg IV Q6H PRN PRN vial 04/28/19 Oxycodone [Oxyir] 10 mg PO Q4H PRN PRN 7 Days #40 tab 04/28/19 Polyethylene Glycol 3350 [Miralax] 17 gm PO BID 04/28/19 Vancomycin IV 1,250 mg IV Q8H 04/28/19 levoFLOXacin tablet [Levaquin tablet] 500 mg PO DAILY@0600 04/28/19 metroNIDAZOLE [Flagyl] 500 mg PO TID 04/28/19 proMETHazine tablet [Phenergan tablet] 25 mg PO Q4H PRN PRN tab 04/28/19 Following Prescrptions Were Given to Patient: Baclofen [Lioresal] 10 mg PO TID PRN #90 tab PRN Reason: back pain Prescription Printed Oxycodone [Oxyir] 10 mg PO Q4H PRN PRN 7 Days #40 tab PRN Reason: Pain Score 6-10/10 Prescription Printed Primary Care Physician: Chema Sanchez Chi, MD [Primary Care Provider] - Please Follow Up With: Regino Hansen MD When: at wound center after discharge. call [phone] for appt. [facility] Minutes spent on discharge:: 35 Medical Necessity - Tobacco Use Smoking Status: Former smoker Meaningful Use Info Meaningful Use Diagnoses (Choose all that apply): None applicable
--- NOTE | 2019-04-28 13:46 | NURSING ---
wound photo: sacrum/lower back
[2019-04-28] MEDS: Pantoprazole Sodium 40 MG Tablet PO (13:51)
[2019-04-28] MEDS: Magnesium Citrate 300 ML PO (15:11)
[2019-04-28 16:18] VITALS: BP 121/67; PULSE 93; RESP 18; TEMP 36.7; O2SAT 96
== END 2019-04-28 16:35 | disposition skilled nursing facility (03) | DRG 574 ==
LOC: ACINP 09:11 → MS3 16:09
PROVIDERS: Admitting Provider Surgery; Family Provider Family Medicine Geriatric Medicine; PCP Family Medicine Geriatric Medicine; Referring Provider Surgery; Visit Provider Surgery
PROC: 0JX70ZC Transfer Back Subcutaneous Tissue and Fascia with Skin, Subcutaneous Tissue and Fascia, Open Approach (ICD-10-PCS; principal; 2019-04-25 10:35)
DX: L89.154 Pressure ulcer of sacral region, stage 4 (principal); M46.28 Osteomyelitis of vertebra, sacral and sacrococcygeal region; I35.0 Nonrheumatic aortic (valve) stenosis; I10 Essential (primary) hypertension; I27.21 Secondary pulmonary arterial hypertension; E03.9 Hypothyroidism, unspecified; K21.9 Gastro-esophageal reflux disease without esophagitis; G62.9 Polyneuropathy, unspecified; Z87.891 Personal history of nicotine dependence; D63.8 Anemia in other chronic diseases classified elsewhere; B95.62 Methicillin resistant Staphylococcus aureus infection as the cause of diseases classified elsewhere
CPT/HCPCS: 36415; 36569; 80048; 80053; 80202; 84134; 85027; 85652; 86140; 87015; 87070; 87075; 87102; 87116; 87176; 87205; 87206; 88304; 88305; 88311; 97802; 99251; J7050; J7120; A4216; G0463; J2405

== ENCOUNTER 2019-04-28 16:47 | Inpatient (IN) | payer MEDICARE, OTHER, SELFPAY ==
[2019-04-25 17:39] VITALS: BMI 36.9
[2019-04-28 16:52] VITALS: BP 115/60; PULSE 96; RESP 24; TEMP 37; O2SAT 96
--- NOTE | 2019-04-28 16:52 | CHAPLAIN ---
patient was seen earlier this day in [facility] with conversation and support
[2019-04-28 17:53] VITALS: BMI 36.8
[2019-04-28 18:11] VITALS: BMI 36.9
[2019-04-28] MEDS: Docusate Sodium 100 MG Capsule PO (18:27)
[2019-04-28] MEDS: Polyethylene Glycol 3350 17 GM PACKET PO (18:27)
[2019-04-28] MEDS: Acetaminophen 500 MG Tablet 1000 MG PO (18:50)
--- NOTE | 2019-04-28 20:19 | PCM.HP.STD ---
Problem List (1) Pressure ulcer of sacral region, stage 4 Status: Chronic (2) Sacral osteomyelitis Status: Chronic (3) Anxiety Status: Chronic (4) Anemia, chronic disease Status: Chronic (5) Body mass index (bmi) 36.0-36.9, adult Status: Chronic (6) Debility Status: Acute (7) Hypertension Status: Chronic (8) Atrial fibrillation Status: Chronic (9) Methicillin resistant Staph aureus culture positive Status: Chronic (10) Colovaginal fistula Status: Chronic (11) GERD (gastroesophageal reflux disease) Status: Chronic (12) Depression Status: Chronic (13) Hypothyroidism Status: Chronic (14) Neuropathy Status: Chronic History of Present Illness Date of Admission: 04/28/19 Chief Complaint: Here for rehabilitation, strengthening, intravenous antibiotics, prior to discharge home alone. The patient is a 68 year old Female with below past medical history with chronic stage 4 pressure ulcer, chronic sacral osteomyelitis, MRSA. 04/25/2019 Admit to Hospital. History of MRSA. Vancomycin IV perioperatively. 04/25/2019 Dr. Hansen performed excision sacral pressure ulcer, stage 4, with partial ostectomy for osteomyelitis. Reconstruction with lumbar bilobed fasciocutaneous transposition flap, and placement of AmnioFill placental connective tissue powder, 1000MG. 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 Current operative cultures are pending. Iron for anemia of chronic disease. Transfuse if hemoglobin less than 8. Needs minimum of 2 weeks bedrest for healing, patient lives alone, unable to care for self. 04/28/2019 Admit to TCU with debility, here for rehabilitation, strengthening, intravenous antibiotics, prior to discharge home alone. Past Medical History Past Medical History (Chronic Problems): Chronic Problems (Last Updated 04/18/19 @ 13:58 by PAPI Jaramillo) Pressure ulcer of sacral region, stage 4 (Chronic) Sacral osteomyelitis (Chronic) Anxiety (Chronic) Anemia, chronic disease (Chronic) Body mass index (bmi) 36.0-36.9, adult (Chronic) Aortic stenosis (Chronic) Hypertension (Chronic) Osteomyelitis (Chronic) Atrial fibrillation (Chronic) Back pain (Chronic) Methicillin resistant Staph aureus culture positive (Chronic) MRSA (methicillin resistant Staphylococcus aureus) infection (Chronic) Osteomyelitis of pelvis (Chronic) Constipation (Chronic) Hypergranulation (Chronic) Acute osteomyelitis of sacrum (Chronic) Surgical wound present (Chronic) Secondary pulmonary arterial hypertension (Chronic) Non-rheumatic tricuspid valve insufficiency (Chronic) Preop cardiovascular exam (Chronic) Abnormal electrocardiogram (Chronic) Essential (primary) hypertension (Chronic) Colovaginal fistula (Chronic) Non-healing surgical wound (Chronic) Pressure ulcer of right heel, stage 3 (Chronic) Pressure ulcer of left heel, stage 3 (Chronic) Morbid obesity with BMI of 40.0-44.9, adult (Chronic) GERD (gastroesophageal reflux disease) (Chronic) Depression (Chronic) Hypothyroidism (Chronic) Pressure ulcer of sacral region, stage 4 (Chronic) Failure to thrive (Chronic) Neuropathy (Chronic) Medical History: Medical History (Last Updated 04/18/19 @ 13:58 by PAPI Jaramillo) Aortic stenosis (Chronic) I35.0 Hypertension (Chronic) I10 Osteomyelitis (Chronic) M86.9 Atrial fibrillation (Chronic) I48.91 Secondary pulmonary arterial hypertension (Chronic) I27.21 Non-rheumatic tricuspid valve insufficiency (Chronic) I36.1 Essential (primary) hypertension (Chronic) I10 Morbid obesity with BMI of 40.0-44.9, adult (Chronic) E66.01, Z68.41 GERD (gastroesophageal reflux disease) (Chronic) K21.9 Depression (Chronic) F32.9 Hypothyroidism (Chronic) E03.9 Abnormal Pap smear of cervix R87.619 Anemia D64.9 GERD (gastroesophageal reflux disease) K21.9 Sacral wound S31.000A Thyroid disorder E07.9 anixety and depression Hypertension I10 no longer on medication d/t weight loss Allergies bee venom protein (honey bee) Allergy (Verified 04/25/19 09:26) Angioedema metaxalone [From Skelaxin] Allergy (Verified 04/25/19 09:26) Swelling Home Medications: Ambulatory Orders Medication Instructions Recorded Levothyroxine [Synthroid] 25 mcg PO DAILY 03/02/17 cholecalciferol (vitamin D3) 50,000 unit PO QMONTH 08/02/17 50,000 unit capsule Ascorbic Acid 500 mg PO DAILY 08/21/17 Potassium Chloride [K-Dur] 40 meq PO DAILY 12/26/17 Omeprazole 40 mg PO 1400 04/11/18 omega-3 fatty acids 1,000 mg 1,000 mg PO DAILY 04/19/18 capsule Linacolotide [Linzess] 145 mcg PO DAILY PRN cap 07/08/18 Gabapentin [Neurontin] 400 mg PO TID 09/02/18 Iron Polysaccharide Complex 150 mg PO DAILYCM #30 cap 09/12/18 [Ferrex 150] Acetaminophen [Tylenol] 500 mg PO Q6H 03/12/19 Lactobacillus Acidophilus/Fos 1 ea PO DAILY 03/12/19 [Acidophilus Probiotic Tablet] Magnesium Oxide [Magnesium] 500 mg PO DAILY 03/12/19 Calcium Carbonate [Tums] 1,000 mg PO Q4H PRN PRN tab 04/01/19 Diclofenac [Voltaren] 50 mg PO BIDCM 04/18/19 Baclofen [Lioresal] 10 mg PO TID PRN #90 tab 04/28/19 Docusate Sodium [Colace] 100 mg PO BID 04/28/19 Enoxaparin [Lovenox] 40 mg SUBCUT DAILY@0600 04/28/19 Mupirocin [Bactroban] 1 applic TOPICAL DAILY 04/28/19 Nutritional Supplement [Teofilo - 1 packet PO BIDCM 04/28/19 [facility]] Ondansetron [Zofran] 4 mg IV Q6H PRN PRN vial 04/28/19 Oxycodone [Oxyir] 10 mg PO Q4H PRN PRN 7 Days #40 tab 04/28/19 Polyethylene Glycol 3350 [Miralax] 17 gm PO BID 04/28/19 Vancomycin IV 1,250 mg IV Q8H 04/28/19 levoFLOXacin tablet [Levaquin 500 mg PO DAILY@0600 04/28/19 tablet] metroNIDAZOLE [Flagyl] 500 mg PO TID 04/28/19 proMETHazine tablet [Phenergan 25 mg PO Q4H PRN PRN tab 04/28/19 tablet] Surgical History: Surgical History (Last Reviewed 04/18/19 @ 13:56 by PAPI Jaramillo) H/O dilation and curettage Z98.890 History of LAVH Z98.890, Z90.710 S/P endometrial ablation Z98.890 S/P hysterectomy Z90.710 uterine ablation History of partial colectomy Z90.49 Surgical History: dilatation and curettage, hysterectomy, - - Uterine ablation, Debridement/excision of sacral pressure ulcer X4. Colovaginal fistula surgical repair. Sacal pressure ulcer flap repair. Psychiatric History: Anxiety, Depression [employer]ER History: No pertinent [employer]ER history Lives: Alone Smoking Status: Former smoker Tobacco Use: Non-smoker Alcohol: None Drugs: None - *Family History Maternal Family History: Family History (Last Reviewed 04/18/19 @ 13:56 by PAPI Jaramillo) Father Myocardial infarction Cancer Brother Heart disease Mother COPD (chronic obstructive pulmonary disease) History Items: Unknown, - - Patient's mother at the age of 82 with a history of chronic obstructive pulmonary disease. Paternal Family History: Family History (Last Reviewed 04/18/19 @ 13:56 by PAPI Jaramillo) Father Myocardial infarction Cancer Brother Heart disease Mother COPD (chronic obstructive pulmonary disease) History Items: Unknown, - - Patient's father at age of 79 with history of lung cancer and myocardial infarction. Review of Systems Constitutional: Denies: Chills, Fever, Weight Change HEENT: Denies: Head Aches, Sinus Congestion, Sinus Drainage Cardiovascular: Denies: Chest Pain, Palpitations Respiratory: Denies: Cough, Shortness of breath at rest, Sputum production Gastrointestinal: Denies: Abdominal Pain, Nausea, Vomiting Genitourinary: Denies: Dysuria Musculoskeletal: Denies: Joint Pain, Joint Tenderness Skin: Denies: Rash, Wounds Neurological: Denies: Numbness, Tingling, Focal weakness Psychiatric: Denies: Anxiety, Depression, Homicidal Ideations, Suicidal Ideations Hematologic/ Lymphatic: Denies: Easy Bruising, Easy Bleeding VTE Information - Inpt Only VTE Present on Admission: No VTE Mechan Device Prophylaxis: Knee High CHRISTOPHE Hose VTE Pharm Prophylaxis ordered?: Yes - Physical Exam Vitals/I&O's: Vital Signs Temp Pulse Resp BP Pulse Ox 98.6 F 96 24 H 115/60 96 04/28/19 16:52 04/28/19 16:52 04/28/19 16:52 04/28/19 16:52 04/28/19 16:52 Oxygen Delivery Method Room Air Weight: 97.5 kg Body Mass Index (BMI) 36.8 General: Alert, Oriented x3, Cooperative HEENT: Atraumatic, PERRLA, EOMI, Normocephalic Neck: Supple, No JVD, Negative Carotid Bruits Lungs: Clear to auscultation, Normal air movement Cardiovascular: Regular rate, No murmurs Abdomen: Bowel Sounds Present, Soft, Non Tender, - - Indwelling maier catheter. Extremities: No edema, Capillary Refill Less than 3 Seconds, - - Left upper extremity PICC line. Skin: No rashes, No breakdown, Incision - Sacral incision clean, dry, intact, drains in place. Musculoskeletal: No Tenderness to Palpation of Joints or Extremities Neurological: Cranial nerves II-XII grossly intact Psych/Mental Status: Normal Affect, Appropriate Current Medications Acetaminophen (Tylenol) 1,000 mg PO Q6 [facility] Last Admin: 04/28/19 18:50 Dose: 1,000 mg Documented by: Ascorbic Acid (Vitamin C) 500 mg PO DAILY [facility] Baclofen (Lioresal) 10 mg PO TID PRN PRN Reason: back pain Calcium Carbonate (Tums) 1,000 mg PO Q4H PRN PRN PRN Reason: INDIGESTION Diclofenac Sodium (Voltaren) 50 mg PO BIDCM [facility] Docusate Sodium (Colace) 100 mg PO BID [facility] Last Admin: 04/28/19 18:27 Dose: 100 mg Documented by: Enoxaparin Sodium (Lovenox) 40 mg SC DAILY@0600 [facility] Ergocalciferol (Vitamin D) 50,000 unit PO QMONTH [facility] Gabapentin (Neurontin) 400 mg PO TID [facility] Heparin Sodium (Beef Lung) () 50 units IV UD PRN PRN Reason: PICC Line Heparin Flush Vancomycin HCl 1,250 mg/ (Sodium Chloride) 275 mls @ 167 mls/hr IV Q8H [facility] Lactobacillus Acidophilus (Acidophilus) 1 tablet PO DAILY [facility] Levofloxacin (Levaquin Tablet) 500 mg PO DAILY@0600 [facility] Levothyroxine Sodium (Synthroid) 25 mcg PO DAILY [facility] Linaclotide (Linzess) 145 mcg PO DAILY PRN PRN Reason: Constipation Metronidazole (Flagyl) 500 mg PO TID [facility] Mupirocin (Bactroban) 1 applic OPERA.SITE DAILY [facility]; Protocol Nutritional Formula (Teofilo - [place] Flavor) 1 packet PO BIDCM [facility] Imzxl-2-Dayx Ethyl Esters (Lovaza) 1 gm PO DAILY [facility] Ondansetron HCl (Zofran) 4 mg IV Q6H PRN PRN PRN Reason: NAUSEA Oxycodone HCl (Oxyir) 10 mg PO Q4H PRN PRN PRN Reason: Pain Score 6-10/10 Pantoprazole Sodium (Protonix) 40 mg PO 1400 [facility] Polyethylene Glycol (Miralax) 17 gm PO BID [facility] Last Admin: 04/28/19 18:27 Dose: 17 gm Documented by: Polysaccharide Iron Complex (Ferrex 150) 150 mg PO DAILYCM [facility] Potassium Chloride (K-Dur) 40 meq PO DAILY [facility] Promethazine HCl (Phenergan Tablet) 25 mg PO Q4H PRN PRN PRN Reason: NAUSEA/VOMITING Sodium Chloride () 10 - 40 ml IV UD PRN PRN Reason: Open End PICC Flush Sodium Chloride (0.9% Nacl (Sterile) Posiflush) 10 - 40 ml IV UD PRN PRN Reason: Port access or dressing change Tuberculin PPD (Tubersol, Aplisol, Ppd) 5 tu ID X1 ONE Stop: 04/29/19 10:01 Tuberculin PPD (Tubersol, Aplisol, Ppd) 5 tu ID X1 ONE Stop: 05/06/19 10:01 Assessment/Plan All Active Problems (Last Updated 04/18/19 @ 13:58 by PAPI Jaramillo) Back pain (Acute) Heart murmur (Acute) Debility (Acute) Atrial fibrillation with RVR (Resolved) Clostridium difficile colitis (Resolved) Clostridium difficile infection (Resolved) Hypertension (Resolved) Rhabdomyolysis (Resolved) 68 year old female with below past medical history chronic stage 4 sacral pressure, hospitalized underwent flap repair 04/25/[address] Hansen, admitted to TCU with debility, here for rehabilitation, strengthening, intravenous antibiotics, prior to discharge home alone. Debility - PT/OT. Pain - Tylenol 1000MG Q6H, Oxycodone 10MG Q6H PRN pain (6-10) Bowel - Miralax 17GM BID, Colace 100MG BID, Linzess 145MCG daily PRN. Adult immunization - Administer Prevnar 13, Pneumovax 23, Fluzone as needed. DVT prophylaxis - Lovenox 40MG SC daily. Vitamin C deficiency - Vitamin C 500MG daily. Muscle spasm - Baclofen 10MG TID PRN. GERD - Pantoprazole 40MG daily, TUMS 1000MG Q4H PRN. Osteoarthritis - Diclofenac 50MG BID. Vitamin D deficiency - D2 50,000 units per month. Neuropathic pain - Gabapentin 400MG TID. Iron deficiency anemia - Ferrex 150MG daily. GI prophylaxis - Lactobacillus 1 tablet daily. Sacral osteomyelitis - Levaquin 500MG daily, Flagyl 500MG TID, Vancomycin 1.25GM IV Q8H, stop date per Dr. Hansen. Hypothyroidism - Levothyroxine 25MCG daily. Stage 4 pressure ulcer status post flap repair - Mupirocin ointment daily. Nutrition - Teofilo 1 packet BID. Hyperlipidemia - Lovaza 1GM daily. Nausea - Zofran 4MG IV Q6H PRN, Phenergan 25MG Q4H PRN. Hypokalemia - K-Dur 40MEQ daily.
[2019-04-28] MEDS: metroNIDAZOLE 500 MG Tablet PO (21:12)
[2019-04-28] MEDS: Baclofen 10 MG Tablet PO (21:12)
[2019-04-28] MEDS: Gabapentin 400 MG Capsule PO (21:13)
[2019-04-28] MEDS: 0.9% Saline Lock 10 ML Syringe IV (21:42)
--- NOTE | 2019-04-28 22:10 | NURSING ---
Patient came to this unit earlier today from [facility].
[2019-04-29] MEDS: Acetaminophen 500 MG Tablet 1000 MG PO ×4 (00:35→19:57)
[2019-04-29 05:25] LABS: Absolute Lymphocyte Count 1.38 X10^3/uL (0.83-4.51); Basophil# 0.04 X10^3/uL; Basophil% 0.4 % (0-1); Eosinophil# 0.34 X10^3/uL; Eosinophils% 3.4 % (0-5); Hematocrit 29.4 % (37-47); Hemoglobin 8.7 g/dL (12.0-15.0); Lymphocyte # 1.38 X10^3/ul (4.0); Lymphocyte % 13.8 % (19-41); Mean Corp Hgb Conc 29.6 g/dL (32-36); Mean Corpuscular Hgb 25.2 pg (27.0-32.0); Mean Corpuscular Volume 85.2 fL (81-99); Mean Platelet Vol. 8.8 fl (6.2-12.0); Monocyte# 1.22 X10^3/uL; Monocyte% 12.2 % (0-10); NRBC Flagged by Analyzer 0 % (0-5); Neutrophil # 6.97 X10^3/uL (2.7-7.7); Neutrophil % 69.7 % (47-70); Platelet Count 397 K/mm3 (150-450); RBC Distribution Width CV 14.9 % (11.6-14.6); RBC Distribution Width SD 46.3 fl (35.1-43.9); Red Blood Count 3.45 M/mm3 (4.2-5.4)
[2019-04-29] MEDS: Docusate Sodium 100 MG Capsule PO ×2 (05:39→17:19)
[2019-04-29] MEDS: metroNIDAZOLE 500 MG Tablet PO ×3 (05:39→21:34)
[2019-04-29] MEDS: Gabapentin 400 MG Capsule PO ×3 (05:40→21:34)
[2019-04-29] MEDS: Levothyroxine 25 MCG TABLET PO (05:40)
[2019-04-29] MEDS: Baclofen 10 MG Tablet PO ×2 (05:41→23:16)
[2019-04-29] MEDS: Enoxaparin 40 MG/0.4 ML Syringe SC (05:41)
[2019-04-29] MEDS: Omega-3 Acid Ethyl Esters 1 GM Capsule PO (05:42)
[2019-04-29] MEDS: levoFLOXacin 500 MG Tablet PO (05:45)
[2019-04-29] MEDS: Ascorbic Acid 500 MG Tablet PO (05:45)
[2019-04-29 05:50] LABS: Erythrocyte Sedimentation Rate > 130 mm/hr (0-30)
[2019-04-29 05:57] LABS: ALB/GLOB Ratio 0.5 RATIO (0.9-2.4); AST(SGOT) 8 U/L (15-37); Alanine Aminotransfer ALT/SGPT 11 U/L (13-56); Albumin, Serum 2.3 g/dL (3.2-5.0); Alkaline Phosphatase 89 U/L (45-117); Anion Gap 7 (5-15); BUN 10 mg/dL (7-18); BUN/Creat Ratio 20.8 RATIO (10-20); Calcium,Total 8.4 mg/dL (8.5-10.1); Chloride 111 mmol/L (98-107); Creatinine, Serum 0.48 mg/dL (0.55-1.02); EST Glomerular Filtration Rate 137 mL/min (>60); Est Glom Filt Rate - Afr Amer 166 mL/min (>60); Estimated Creatinine Clearance 47.14 ml/min; Globulin 4.2 g/dL (2.2-4.2); Glucose 98 mg/dL (74-106); Potassium 3.6 mmol/L (3.5-5.1); Protein, Total 6.5 g/dL (6.4-8.2); Sodium Level 143 mmol/L (136-145)
--- NOTE | 2019-04-29 06:44 | NURSING ---
Discussed code status with patient, patient wishes to be a DNRCC. Purple bracelet applied.
[2019-04-29] MEDS: Iron Polysaccharide Complex 150 MG CAPSULE PO (07:58)
[2019-04-29] MEDS: Mupirocin Ointment 22gm Tube 1 APPLIC OPERA.SITE (10:45)
--- NOTE | 2019-04-29 11:18 | NURSING ---
wound photo:sacrum/lower back
[2019-04-29] MEDS: Pantoprazole Sodium 40 MG Tablet PO (14:22)
[2019-04-29 16:00] VITALS: BP 118/67; PULSE 80; RESP 18; TEMP 36.9; O2SAT 96
[2019-04-29] MEDS: 0.9% Saline Lock 10 ML Syringe IV ×3 (21:34→23:20)
[2019-04-30] MEDS: Acetaminophen 500 MG Tablet 1000 MG PO ×4 (02:41→20:57)
[2019-04-30] MEDS: Enoxaparin 40 MG/0.4 ML Syringe SC (05:21)
[2019-04-30] MEDS: Levothyroxine 25 MCG TABLET PO (05:21)
[2019-04-30] MEDS: Ascorbic Acid 500 MG Tablet PO (05:21)
[2019-04-30] MEDS: Gabapentin 400 MG Capsule PO ×3 (05:22→20:57)
[2019-04-30] MEDS: Docusate Sodium 100 MG Capsule PO ×2 (05:22→17:17)
[2019-04-30] MEDS: metroNIDAZOLE 500 MG Tablet PO ×3 (05:22→20:57)
[2019-04-30] MEDS: Omega-3 Acid Ethyl Esters 1 GM Capsule PO (05:22)
[2019-04-30] MEDS: levoFLOXacin 500 MG Tablet PO (05:24)
[2019-04-30] MEDS: 0.9% Saline Lock 10 ML Syringe IV ×4 (05:26→22:47)
[2019-04-30 06:32] LABS: Vancomycin, Trough Level 21.7 ug/mL (5.0-15.0)
--- NOTE | 2019-04-30 07:33 | PCM.RX.CS ---
Consult Pharmacy has been consulted to manage selected antiobiotic: Vancomycin Type of Consult: Follow-up Suspected Infection: Osteomyelitis Prior Doses of Antibiotics Received/Current Regimen: Current regimen is 1250mg IV q8h Labs: Sodium 143 mmol/L (136-145) 04/29/19 05:15 Potassium 3.6 mmol/L (3.5-5.1) 04/29/19 05:15 Chloride 111 mmol/L (98-107) H 04/29/19 05:15 Carbon Dioxide 25.0 mmol/L (21.0-32.0) 04/29/19 05:15 Anion Gap 7 (5-15) 04/29/19 05:15 BUN 10 mg/dL (7-18) 04/29/19 05:15 Creatinine 0.48 mg/dL (0.55-1.02) L 04/29/19 05:15 Est GFR (MDRD) Af Amer 166 mL/min (>60) 04/29/19 05:15 Est GFR (MDRD) Non-Af 137 mL/min (>60) 04/29/19 05:15 BUN/Creatinine Ratio 20.8 RATIO (10-20) H 04/29/19 05:15 Glucose 98 mg/dL (74-106) 04/29/19 05:15 Vancomycin Trough 21.7 ug/mL (5.0-15.0) H 04/30/19 05:35 Weight used for dosin.2 kg Estimated Creatinine Clearance: 47 ml/min Goal Trough: 15-20 mcg/mL Pharmacy Plan for Drug Dosing: Trough drawn before this morning's dose was 21.7 mg/L, which is above goal range of 15-20. Since this morning's dose was already given after the trough was drawn, we will hold further dosing for now and obtain a random vancomycin level this evening and restart vancomycin at a newly calculated dose if the level is back down below 20 mg/L. Pharmacy Service will continue to monitor and adjust dosing as required. Follow-Up Labs: Trough Vancomycin - random Labs to be done on [date and time ordered]: 04/30/19 19:00
[2019-04-30] MEDS: Iron Polysaccharide Complex 150 MG CAPSULE PO (09:06)
[2019-04-30] MEDS: Mupirocin Ointment 22gm Tube 1 APPLIC OPERA.SITE (09:07)
--- NOTE | 2019-04-30 13:32 | PHA.CONS_ITS ---
Progress Note - Pharmacy Subjective: TCU Admission Objective: Allergies bee venom protein (honey bee) Allergy (Verified 04/25/19 09:26) Angioedema metaxalone [From Skelaxin] Allergy (Verified 04/25/19 09:26) Swelling Current Medications Generic Name Dose Route Start Last Admin Trade Name Freq PRN Reason Stop Dose Admin Acetaminophen 1,000 mg 04/29/19 00:00 04/30/19 09:07 Tylenol PO 1,000 mg Q6 [facility] Administration Ascorbic Acid 500 mg 04/29/19 06:00 04/30/19 05:21 Vitamin C PO 500 mg DAILY [facility]LO[facility] Administration Baclofen 10 mg 04/28/19 17:38 04/29/19 23:16 Lioresal PO 10 mg TID PRN Administration back pain Calcium Carbonate 1,000 mg 04/28/19 17:38 Tums PO Q4H PRN PRN INDIGESTION Diclofenac Sodium 50 mg 04/29/19 08:00 04/30/19 09:07 Voltaren PO 50 mg BIDCM [facility] Administration Docusate Sodium 100 mg 04/28/19 18:00 04/30/19 05:22 Colace PO 100 mg BID [facility] Administration Enoxaparin Sodium 40 mg 04/29/19 06:00 04/30/19 05:21 Lovenox SC 40 mg DAILY@0600 [facility] Administration Ergocalciferol 50,000 unit 05/03/19 08:00 Vitamin D PO QMONTH [facility] Gabapentin 400 mg 04/28/19 22:00 04/30/19 05:22 Neurontin PO 400 mg TID [facility] Administration Heparin Sodium (Beef Lung) 50 units 04/28/19 17:07 IV UD PRN PICC Line Heparin Flush Sodium Chloride 250 mls @ 15 mls/hr 04/28/19 21:28 04/28/19 21:42 IV 0 mls/hr .[id number] PRN Infusion Saline Flush Vancomycin IV Pharmacy to Dose 500 mls @ 250 mls/hr 04/29/19 09:07 1 ea/ Sodium Chloride IV X1 PRN Rx to Dose Protocol Lactobacillus Acidophilus 1 tablet 04/29/19 06:00 04/30/19 05:23 Acidophilus PO 1 tablet DAILY [facility] Administration Levofloxacin 500 mg 04/29/19 06:00 04/30/19 05:24 Levaquin Tablet PO 500 mg DAILY@0600 [facility] Administration Levothyroxine Sodium 25 mcg 04/29/19 06:00 04/30/19 05:21 Synthroid PO 25 mcg DAILY [facility] Administration Linaclotide 145 mcg 04/28/19 17:38 Linzess PO DAILY PRN Constipation Metronidazole 500 mg 04/28/19 22:00 04/30/19 05:22 Flagyl PO 500 mg TID [facility] Administration Mupirocin 1 applic 04/29/19 06:00 04/30/19 09:07 Bactroban OPERA.SITE 1 applicatio DAILY [facility] Administration Protocol Nutritional Formula 1 packet 04/29/19 08:00 04/30/19 09:06 Teofilo - [employer] Flavor PO 1 packet BIDCM [facility] Administration [id number] Ethyl Esters 1 gm 04/29/19 06:00 04/30/19 05:22 Lovaza PO 1 gm DAILY [facility] Administration Ondansetron HCl 4 mg 04/28/19 17:38 Zofran IV Q6H PRN PRN NAUSEA Oxycodone HCl 10 mg 04/28/19 17:38 Oxyir PO Q4H PRN PRN Pain Score 6-10/10 Pantoprazole Sodium 40 mg 04/29/19 14:00 04/29/19 14:22 Protonix PO 40 mg 1400 [facility] Administration Polyethylene Glycol 17 gm 04/28/19 18:00 04/30/19 05:24 Miralax PO Not Given BID [facility] Polysaccharide Iron Complex 150 mg 04/29/19 08:00 04/30/19 09:06 Ferrex 150 PO 150 mg DAILYCM [facility] Administration Potassium Chloride 40 meq 04/29/19 06:00 04/30/19 05:22 K-Dur PO 40 meq DAILY [facility] Administration Promethazine HCl 25 mg 04/28/19 17:38 Phenergan Tablet PO Q4H PRN PRN NAUSEA/VOMITING Sodium Chloride 10 - 40 ml 04/28/19 17:07 04/30/19 05:26 IV 10 ml UD PRN Administration Open End PICC Flush Sodium Chloride 10 - 40 ml 04/28/19 17:07 0.9% Nacl (Sterile) Posiflush IV UD PRN Port access or dressing change Problem List (Last Updated 04/18/19 @ 13:58 by PAPI Jaramillo) Pressure ulcer of sacral region, stage 4 (Chronic) Sacral osteomyelitis (Chronic) Anxiety (Chronic) Anemia, chronic disease (Chronic) Body mass index (bmi) 36.0-36.9, adult (Chronic) Vital Signs Temp Pulse Resp BP Pulse Ox 98.4 F 80 18 118/67 96 04/29/19 16:00 04/29/19 16:00 04/29/19 16:00 04/29/19 16:00 04/29/19 16:00 Oxygen Delivery Method Room Air Weight: 97.2 kg Body Mass Index (BMI) 36.8 Sodium 143 mmol/L (136-145) 04/29/19 05:15 Potassium 3.6 mmol/L (3.5-5.1) 04/29/19 05:15 Chloride 111 mmol/L (98-107) H 04/29/19 05:15 Carbon Dioxide 25.0 mmol/L (21.0-32.0) 04/29/19 05:15 Anion Gap 7 (5-15) 04/29/19 05:15 BUN 10 mg/dL (7-18) 04/29/19 05:15 Creatinine 0.48 mg/dL (0.55-1.02) L 04/29/19 05:15 Est GFR (MDRD) Af Amer 166 mL/min (>60) 04/29/19 05:15 Est GFR (MDRD) Non-Af 137 mL/min (>60) 04/29/19 05:15 BUN/Creatinine Ratio 20.8 RATIO (10-20) H 04/29/19 05:15 Glucose 98 mg/dL (74-106) 04/29/19 05:15 Vancomycin Trough 21.7 ug/mL (5.0-15.0) H 04/30/19 05:35 Assessment/Plan: 1. Pain: acetaminophen 1000mg PO Q6H and oxycodone 10mg PO Q4H PRN pain (6- 03/13). Please continue to monitor for increased pain and PRN usage. *2. Sacral osteomyelitis: levofloxacin 500mg PO daily, metronidazole 500mg PO TID, and vancomycin (level pending, do not know the dose at time of note writing). Please consider adding stop date once Dr. Hansen has seen the patient. Please continue to monitor for diarrhea, S/S of worsening infection and renal function. 3. DVT prophylaxis: enoxaparin 40mg SC daily. Please continue to monitor for S/S of bleeding, renal function and platelets. 4. GERD: pantoprazole 40mg PO daily, calcium carbonate 1000mg PO Q4H PRN indigestion. Please continue to monitor for indigestion and PRN usage. *5. Hyperlipidemia: Lovaza 1gm PO daily. Last lipid panel from 2018, please consider ordering one now and then annually as clinically appropriate. Thanks. 6. Hypothyroidism: levothyroxine 25mcg PO daily. Please continue to monitor TSH and for S/S of hypo/hyperthyroidism. 7. Neuropathic pain: gabapentin 400mg PO TID. Please continue to monitor for confusion and renal function. 8. Iron deficiency anemia: Ferrex 150mg PO DAILYCM. Please continue to monitor hemoglobin and for dark stools. 9. Muscle spasm: baclofen 10mg PO TID PRN back pain. Please continue to monitor for back pain and PRN usage. 10. Osteoarthritis: diclofenac 50mg PO BIDCM. Please continue to monitor renal function and increased pain. 11. Stage 4 pressure ulcer: mupirocin ointment 1 application topically to the operative site daily. Please continue to monitor for itching and increased redness. 12. Hypokalemia: potassium chloride 40mEq PO daily. Please continue to monitor potassium levels. 13. Nausea: ondansetron 4mg IV Q6H PRN nausea, promethazine 25mg PO Q4H PRN nausea/vomiting. Please continue to monitor for nausea, vomiting and PRN usage. 14. Vitamin Deficiencies/overall nutrition: ascorbic acid 500mg PO daily, ergocalciferol 50,000units PO monthly, lactobacillus acidophilus 1T PO daily. Please continue to monitor vitamin D levels. Psychotropic Medications: None Unnecessary Medications: None *Bowel Regimen: Miralax 17gm PO BID, docusate 100mg PO BID, linaclotide 145mcg PO daily PRN constipation. Please consider changing Miralax from scheduled BID to daily PRN constipation. Patient has not received 3/4 doses due to loose stool. Thanks. Date of Note:: 04/30/19 - Provider Comments Provider responsibility: Provider responsible to enter orders to implement recommendations
[2019-04-30 14:12] LABS: Vancomycin, Trough Level 14.9 ug/mL (5.0-15.0)
--- NOTE | 2019-04-30 14:35 | CHAPLAIN ---
Type of Pastoral Visit ___ Initial Visit _x__ Follow-up Visit ___ On-call Visit ___ General Patient Visit ___ Spiritual Assessment ___ Family Conference ___ Bereavement ___ Rapid Response ___ Code Blue ___ Other (describe below) Pastoral Care Referral From _x__ Patient ___ Family ___ Nurse ___ Physician ___ Vendor Management Associate ___ Catholic Priest ___ Other (describe below) Sacrament/Intervention _x__ Active listening ___ Anointing ___ Spiritism ___ Bereavement ___ Communion _x__ Mayra exploration ___ ___ Life review _x__ Prayer ___ Reconciliation ___ Sacrament of Sick _x__ Supportive presence ___ Wedding ___ Other (describe below) Pastoral Comments
[2019-04-30] MEDS: Pantoprazole Sodium 40 MG Tablet PO (14:46)
[2019-04-30 15:52] VITALS: BP 110/39; PULSE 80; RESP 17; TEMP 36.2; O2SAT 95
[2019-04-30 16:22] VITALS: BP 100/60
--- NOTE | 2019-04-30 16:22 | NURSING ---
BP low but is asymptomatic.
[2019-04-30] MEDS: Baclofen 10 MG Tablet PO (22:30)
[2019-05-01] MEDS: 0.9% Saline Lock 10 ML Syringe IV ×3 (02:42→15:32)
[2019-05-01] MEDS: Acetaminophen 500 MG Tablet 1000 MG PO ×4 (02:42→23:09)
[2019-05-01] MEDS: Omega-3 Acid Ethyl Esters 1 GM Capsule PO (06:01)
[2019-05-01] MEDS: Enoxaparin 40 MG/0.4 ML Syringe SC (06:01)
[2019-05-01] MEDS: Docusate Sodium 100 MG Capsule PO ×2 (06:01→17:10)
[2019-05-01] MEDS: Gabapentin 400 MG Capsule PO ×3 (06:01→21:21)
[2019-05-01] MEDS: metroNIDAZOLE 500 MG Tablet PO ×3 (06:01→21:15)
[2019-05-01] MEDS: Baclofen 10 MG Tablet PO (06:01)
[2019-05-01] MEDS: Ascorbic Acid 500 MG Tablet PO (06:02)
[2019-05-01] MEDS: levoFLOXacin 500 MG Tablet PO (06:02)
[2019-05-01] MEDS: Levothyroxine 25 MCG TABLET PO (06:03)
[2019-05-01] MEDS: Iron Polysaccharide Complex 150 MG CAPSULE PO (07:57)
--- NOTE | 2019-05-01 11:04 | NURSING ---
Scheduled tylenol given at this time. Will give tylenol time to work before doing incision care.
[2019-05-01] MEDS: Mupirocin Ointment 22gm Tube 1 APPLIC OPERA.SITE (13:05)
[2019-05-01] MEDS: Pantoprazole Sodium 40 MG Tablet PO (13:06)
[2019-05-01 15:41] VITALS: BP 113/62; PULSE 85; RESP 17; TEMP 36.7; O2SAT 94
[2019-05-01] MEDS: Polyethylene Glycol 3350 17 GM PACKET PO (17:10)
[2019-05-01] MEDS: Nystatin Powder 15gm Bottle 1 APPLIC TOPICAL (21:19)
[2019-05-02] MEDS: Docusate Sodium 100 MG Capsule PO ×2 (06:14→17:29)
[2019-05-02] MEDS: Enoxaparin 40 MG/0.4 ML Syringe SC (06:14)
[2019-05-02] MEDS: Omega-3 Acid Ethyl Esters 1 GM Capsule PO (06:14)
[2019-05-02] MEDS: levoFLOXacin 500 MG Tablet PO (06:14)
[2019-05-02] MEDS: metroNIDAZOLE 500 MG Tablet PO ×3 (06:14→23:02)
[2019-05-02] MEDS: Levothyroxine 25 MCG TABLET PO (06:15)
[2019-05-02] MEDS: Gabapentin 400 MG Capsule PO ×3 (06:15→23:01)
[2019-05-02] MEDS: Acetaminophen 500 MG Tablet 1000 MG PO ×4 (06:15→23:24)
[2019-05-02] MEDS: Nystatin Powder 15gm Bottle 1 APPLIC TOPICAL (06:15)
[2019-05-02] MEDS: Ascorbic Acid 500 MG Tablet PO (06:16)
[2019-05-02] MEDS: Mupirocin Ointment 22gm Tube 1 APPLIC OPERA.SITE (08:33)
[2019-05-02] MEDS: 0.9% Saline Lock 10 ML Syringe IV ×4 (08:33→23:25)
[2019-05-02] MEDS: Iron Polysaccharide Complex 150 MG CAPSULE PO (08:33)
[2019-05-02] MEDS: Baclofen 10 MG Tablet PO ×2 (11:19→23:17)
[2019-05-02] MEDS: Pantoprazole Sodium 40 MG Tablet PO (13:34)
[2019-05-02 15:58] VITALS: BP 112/63; PULSE 71; RESP 16; TEMP 36.6; O2SAT 93
[2019-05-03] MEDS: Ascorbic Acid 500 MG Tablet PO (06:04)
[2019-05-03] MEDS: Gabapentin 400 MG Capsule PO ×3 (06:04→22:33)
[2019-05-03] MEDS: metroNIDAZOLE 500 MG Tablet PO ×3 (06:04→22:33)
[2019-05-03] MEDS: levoFLOXacin 500 MG Tablet PO (06:04)
[2019-05-03] MEDS: Docusate Sodium 100 MG Capsule PO ×2 (06:04→18:11)
[2019-05-03] MEDS: Levothyroxine 25 MCG TABLET PO (06:04)
[2019-05-03] MEDS: Omega-3 Acid Ethyl Esters 1 GM Capsule PO (06:04)
[2019-05-03] MEDS: Enoxaparin 40 MG/0.4 ML Syringe SC (06:05)
[2019-05-03] MEDS: Acetaminophen 500 MG Tablet 1000 MG PO ×3 (06:21→18:13)
[2019-05-03] MEDS: 0.9% Saline Lock 10 ML Syringe IV (06:26)
[2019-05-03] MEDS: Mupirocin Ointment 22gm Tube 1 APPLIC OPERA.SITE (08:34)
[2019-05-03] MEDS: Iron Polysaccharide Complex 150 MG CAPSULE PO (08:35)
[2019-05-03] MEDS: Pantoprazole Sodium 40 MG Tablet PO (14:18)
[2019-05-03 16:00] VITALS: BP 114/61; PULSE 66; RESP 18; TEMP 36.6; O2SAT 94
[2019-05-04] MEDS: Acetaminophen 500 MG Tablet 1000 MG PO ×4 (00:17→18:14)
[2019-05-04] MEDS: Omega-3 Acid Ethyl Esters 1 GM Capsule PO (06:37)
[2019-05-04] MEDS: metroNIDAZOLE 500 MG Tablet PO ×3 (06:37→22:52)
[2019-05-04] MEDS: Docusate Sodium 100 MG Capsule PO ×2 (06:37→17:08)
[2019-05-04] MEDS: Enoxaparin 40 MG/0.4 ML Syringe SC (06:37)
[2019-05-04] MEDS: levoFLOXacin 500 MG Tablet PO (06:37)
[2019-05-04] MEDS: Gabapentin 400 MG Capsule PO ×3 (06:38→22:52)
[2019-05-04] MEDS: Ascorbic Acid 500 MG Tablet PO (06:38)
[2019-05-04] MEDS: Levothyroxine 25 MCG TABLET PO (06:40)
[2019-05-04] MEDS: 0.9% Saline Lock 10 ML Syringe IV ×4 (07:21→22:54)
[2019-05-04] MEDS: Mupirocin Ointment 22gm Tube 1 APPLIC OPERA.SITE ×2 (08:47→08:50)
[2019-05-04] MEDS: Iron Polysaccharide Complex 150 MG CAPSULE PO (08:48)
[2019-05-04] MEDS: Pantoprazole Sodium 40 MG Tablet PO (14:40)
[2019-05-04 15:33] VITALS: BP 111/58; PULSE 84; RESP 18; TEMP 36.2; O2SAT 93
[2019-05-04] MEDS: Polyethylene Glycol 3350 17 GM PACKET PO (17:07)
[2019-05-05] MEDS: Acetaminophen 500 MG Tablet 1000 MG PO ×4 (00:18→18:19)
[2019-05-05] MEDS: Ascorbic Acid 500 MG Tablet PO (04:24)
[2019-05-05] MEDS: Docusate Sodium 100 MG Capsule PO ×2 (04:24→16:40)
[2019-05-05] MEDS: Levothyroxine 25 MCG TABLET PO (04:24)
[2019-05-05] MEDS: Omega-3 Acid Ethyl Esters 1 GM Capsule PO (04:25)
[2019-05-05] MEDS: Gabapentin 400 MG Capsule PO ×3 (04:25→21:58)
[2019-05-05] MEDS: Enoxaparin 40 MG/0.4 ML Syringe SC (04:26)
[2019-05-05] MEDS: 0.9% Saline Lock 10 ML Syringe IV ×4 (04:29→21:51)
[2019-05-05 05:59] LABS: Absolute Lymphocyte Count 1.76 X10^3/uL (0.83-4.51); Absolute Neutrophil Count 6.2 X10^3/uL (2.0-7.7); Basophil# 0.07 X10^3/uL; Basophil% 0.7 % (0-1); Eosinophil# 0.43 X10^3/uL; Eosinophils% 4.5 % (0-5); Hematocrit 31.8 % (37-47); Hemoglobin 9.3 g/dL (12.0-15.0); Lymphocyte # 1.76 X10^3/ul (4.0); Lymphocyte % 18.3 % (19-41); Mean Corp Hgb Conc 29.2 g/dL (32-36); Mean Corpuscular Hgb 24.9 pg (27.0-32.0); Mean Platelet Vol. 8.9 fl (6.2-12.0); Monocyte# 1.08 X10^3/uL; Monocyte% 11.3 % (0-10); NRBC Flagged by Analyzer 0 % (0-5); Neutrophil # 6.15 X10^3/uL (2.7-7.7); Neutrophil % 64.1 % (47-70); Platelet Count 494 K/mm3 (150-450); RBC Distribution Width CV 14.7 % (11.6-14.6); RBC Distribution Width SD 45.3 fl (35.1-43.9); Red Blood Count 3.74 M/mm3 (4.2-5.4); White Blood Count 9.6 K/mm3 (4.4-11.0)
[2019-05-05] MEDS: levoFLOXacin 500 MG Tablet PO (06:09)
[2019-05-05] MEDS: metroNIDAZOLE 500 MG Tablet PO ×3 (06:09→21:57)
[2019-05-05 06:11] LABS: Vancomycin, Trough Level 23.5 ug/mL (5.0-15.0)
[2019-05-05 06:13] LABS: ALB/GLOB Ratio 0.7 RATIO (0.9-2.4); AST(SGOT) 13 U/L (15-37); Alanine Aminotransfer ALT/SGPT 12 U/L (13-56); Albumin, Serum 2.8 g/dL (3.2-5.0); Alkaline Phosphatase 83 U/L (45-117); Anion Gap 5 (5-15); BUN 23 mg/dL (7-18); BUN/Creat Ratio 37.6 RATIO (10-20); CRP 8.16 mg/L (0.0-3.0); Calcium,Total 8.8 mg/dL (8.5-10.1); Chloride 108 mmol/L (98-107); Creatinine, Serum 0.61 mg/dL (0.55-1.02); EST Glomerular Filtration Rate 103 mL/min (>60); Est Glom Filt Rate - Afr Amer 125 mL/min (>60); Estimated Creatinine Clearance 47.14 ml/min; Globulin 3.8 g/dL (2.2-4.2); Glucose 89 mg/dL (74-106); Potassium 3.9 mmol/L (3.5-5.1); Protein, Total 6.6 g/dL (6.4-8.2); Sodium Level 140 mmol/L (136-145)
--- NOTE | 2019-05-05 06:36 | PCM.RX.CS ---
Consult Pharmacy has been consulted to manage selected antiobiotic: Vancomycin Type of Consult: Follow-up Suspected Infection: Osteomyelitis Prior Doses of Antibiotics Received/Current Regimen: Medications Discontinued Medications Vancomycin HCl 1,250 mg/ (Sodium Chloride) 275 mls @ 167 mls/hr IV Q8H [facility] Last Admin: 05/05/19 06:24 Dose: Not Given Labs: Sodium 140 mmol/L (136-145) 05/05/19 05:15 Potassium 3.9 mmol/L (3.5-5.1) 05/05/19 05:15 Chloride 108 mmol/L (98-107) H 05/05/19 05:15 Carbon Dioxide 27.0 mmol/L (21.0-32.0) 05/05/19 05:15 Anion Gap 5 (5-15) 05/05/19 05:15 BUN 23 mg/dL (7-18) H 05/05/19 05:15 Creatinine 0.61 mg/dL (0.55-1.02) 05/05/19 05:15 Est GFR (MDRD) Af Amer 125 mL/min (>60) 05/05/19 05:15 Est GFR (MDRD) Non-Af 103 mL/min (>60) 05/05/19 05:15 BUN/Creatinine Ratio 37.6 RATIO (10-20) H 05/05/19 05:15 Glucose 89 mg/dL (74-106) 05/05/19 05:15 Vancomycin Trough 23.5 ug/mL (5.0-15.0) H 05/05/19 05:15 Weight used for dosin.2 kg Estimated Creatinine Clearance: 47 Goal Trough: 15-20 mcg/mL Pharmacy Plan for Drug Dosing: Trough level drawn was high at 23.5. Will hold the 05/05/19 0700 scheduled dose and re-draw a random level @1430 to determine continuing dosing. Pharmacy Service will continue to monitor and adjust dosing as required. Follow-Up Labs: Trough Vancomycin - random Labs to be done on [date and time ordered]: 05/05/19 @1430 random
[2019-05-05 06:46] LABS: Erythrocyte Sedimentation Rate 66 mm/hr (0-30)
[2019-05-05] MEDS: Iron Polysaccharide Complex 150 MG CAPSULE PO (08:47)
[2019-05-05] MEDS: Polyethylene Glycol 3350 17 GM PACKET PO (08:47)
[2019-05-05] MEDS: Alteplase 2 MG/2 ML Vial IV (10:13)
[2019-05-05] MEDS: Mupirocin Ointment 22gm Tube 1 APPLIC OPERA.SITE (11:34)
--- NOTE | 2019-05-05 11:44 | NURSING ---
wound photo: sacrum/lower back
--- NOTE | 2019-05-05 11:56 | NURSING ---
CATHFLO ADMINISTERED BY TERMITE TREATER. UNABLE TO OBTAIN BLOOD RETURN OR CATHFLO RETURN. NOTIFIED DR. SCHMIDT. NEW ORDER FOR NEW PICC TO BE INSERTED. BRAVO López RN CALLING SOFTWARE DEVELOPER INTERN AT THIS TIME.
--- NOTE | 2019-05-05 12:06 | NURSING ---
Addendum entered by Ksenia Niño 05/05/19 17:10: attorney at law was able to get current picc line working/flushing. did not have to insert new picc. Original Note: called attorney at law for pic rosario placement
[2019-05-05] MEDS: Pantoprazole Sodium 40 MG Tablet PO (13:41)
[2019-05-05 16:00] VITALS: BP 138/60; PULSE 82; RESP 16; TEMP 36.8; O2SAT 94
--- NOTE | 2019-05-05 16:06 | PCM.RX.CS ---
Consult Pharmacy has been consulted to manage selected antiobiotic: Vancomycin Type of Consult: Follow-up Suspected Infection: Osteomyelitis Prior Doses of Antibiotics Received/Current Regimen: VANCOMYCIN 1250MG IV 05/04 @ 2253 Labs: Sodium 140 mmol/L (136-145) 05/05/19 05:15 Potassium 3.9 mmol/L (3.5-5.1) 05/05/19 05:15 Chloride 108 mmol/L (98-107) H 05/05/19 05:15 Carbon Dioxide 27.0 mmol/L (21.0-32.0) 05/05/19 05:15 Anion Gap 5 (5-15) 05/05/19 05:15 BUN 23 mg/dL (7-18) H 05/05/19 05:15 Creatinine 0.61 mg/dL (0.55-1.02) 05/05/19 05:15 Est GFR (MDRD) Af Amer 125 mL/min (>60) 05/05/19 05:15 Est GFR (MDRD) Non-Af 103 mL/min (>60) 05/05/19 05:15 BUN/Creatinine Ratio 37.6 RATIO (10-20) H 05/05/19 05:15 Glucose 89 mg/dL (74-106) 05/05/19 05:15 Vancomycin Trough 23.5 ug/mL (5.0-15.0) H 05/05/19 05:15 Random Vancomycin 12.0 ug/mL (0.0-15.0) 05/05/19 14:30 Weight used for dosin.2 kg Estimated Creatinine Clearance: 100.9 Goal Trough: 15-20 mcg/mL Pharmacy Plan for Drug Dosin. Random trough drawn 05/05 @ 1430 was 12.0 mg/dL (15.5 hr level) 2. Will resume prior dosing since trough was likely in range 8 hours after previous dose 3. Will schedule a trough prior to the fourth dose of resumed regimen Pharmacy Service will continue to monitor and adjust dosing as required. Labs to be done on [date and time ordered]: 05/06/19 @ 1630
[2019-05-05] MEDS: Baclofen 10 MG Tablet PO (16:42)
[2019-05-06] MEDS: Baclofen 10 MG Tablet PO ×2 (00:03→14:42)
[2019-05-06] MEDS: Acetaminophen 500 MG Tablet 1000 MG PO ×4 (00:23→18:36)
[2019-05-06] MEDS: 0.9% Saline Lock 10 ML Syringe IV ×3 (00:23→09:03)
[2019-05-06] MEDS: Ascorbic Acid 500 MG Tablet PO (04:18)
[2019-05-06] MEDS: levoFLOXacin 500 MG Tablet PO (04:18)
[2019-05-06] MEDS: Omega-3 Acid Ethyl Esters 1 GM Capsule PO (04:18)
[2019-05-06] MEDS: Gabapentin 400 MG Capsule PO ×3 (04:18→21:54)
[2019-05-06] MEDS: Docusate Sodium 100 MG Capsule PO ×2 (04:18→17:24)
[2019-05-06] MEDS: metroNIDAZOLE 500 MG Tablet PO ×3 (04:18→21:54)
[2019-05-06] MEDS: Levothyroxine 25 MCG TABLET PO (04:18)
[2019-05-06] MEDS: Enoxaparin 40 MG/0.4 ML Syringe SC (04:19)
[2019-05-06] MEDS: Mupirocin Ointment 22gm Tube 1 APPLIC OPERA.SITE (09:02)
[2019-05-06] MEDS: Iron Polysaccharide Complex 150 MG CAPSULE PO (09:02)
[2019-05-06] MEDS: Pantoprazole Sodium 40 MG Tablet PO (14:42)
[2019-05-06 16:00] VITALS: BP 139/64; PULSE 83; RESP 17; TEMP 37; O2SAT 95
[2019-05-06 17:22] LABS: Vancomycin, Trough Level 19.6 ug/mL (5.0-15.0)
--- NOTE | 2019-05-06 18:11 | PCM.RX.CS ---
Consult Pharmacy has been consulted to manage selected antiobiotic: Vancomycin Type of Consult: Follow-up Suspected Infection: Osteomyelitis Prior Doses of Antibiotics Received/Current Regimen: current regimen is 1250mg IV q8h Labs: Sodium 140 mmol/L (136-145) 05/05/19 05:15 Potassium 3.9 mmol/L (3.5-5.1) 05/05/19 05:15 Chloride 108 mmol/L (98-107) H 05/05/19 05:15 Carbon Dioxide 27.0 mmol/L (21.0-32.0) 05/05/19 05:15 Anion Gap 5 (5-15) 05/05/19 05:15 BUN 23 mg/dL (7-18) H 05/05/19 05:15 Creatinine 0.61 mg/dL (0.55-1.02) 05/05/19 05:15 Est GFR (MDRD) Af Amer 125 mL/min (>60) 05/05/19 05:15 Est GFR (MDRD) Non-Af 103 mL/min (>60) 05/05/19 05:15 BUN/Creatinine Ratio 37.6 RATIO (10-20) H 05/05/19 05:15 Glucose 89 mg/dL (74-106) 05/05/19 05:15 Vancomycin Trough 19.6 ug/mL (5.0-15.0) H 05/06/19 16:40 Random Vancomycin 12.0 ug/mL (0.0-15.0) 05/05/19 14:30 Weight used for dosin kg Estimated Creatinine Clearance: 100.9 Goal Trough: 15-20 mcg/mL Pharmacy Plan for Drug Dosing: Trough obtained before this afternoon's dose came back as 19.6, which is within goal range of 15-20. Will continue current dose of 1250mg IV q8h but since the trough is at the higher part of the goal range, will recheck a trough again in 3 days to make sure it does not get above goal range. Pharmacy Service will continue to monitor and adjust dosing as required. Follow-Up Labs: Trough Vancomycin Labs to be done on [date and time ordered]: 05/09/19 08:30
[2019-05-06] MEDS: Nystatin Powder 15gm Bottle 1 APPLIC TOPICAL (21:54)
[2019-05-07] MEDS: Acetaminophen 500 MG Tablet 1000 MG PO ×4 (00:45→18:37)
[2019-05-07] MEDS: Baclofen 10 MG Tablet PO ×3 (00:46→12:55)
[2019-05-07] MEDS: 0.9% Saline Lock 10 ML Syringe IV ×3 (00:48→17:13)
[2019-05-07] MEDS: Docusate Sodium 100 MG Capsule PO ×2 (06:31→17:10)
[2019-05-07] MEDS: levoFLOXacin 500 MG Tablet PO (06:32)
[2019-05-07] MEDS: Levothyroxine 25 MCG TABLET PO (06:32)
[2019-05-07] MEDS: Gabapentin 400 MG Capsule PO ×3 (06:32→21:07)
[2019-05-07] MEDS: metroNIDAZOLE 500 MG Tablet PO ×3 (06:32→21:07)
[2019-05-07] MEDS: Enoxaparin 40 MG/0.4 ML Syringe SC (06:32)
[2019-05-07] MEDS: Omega-3 Acid Ethyl Esters 1 GM Capsule PO (06:32)
[2019-05-07] MEDS: Nystatin Powder 15gm Bottle 1 APPLIC TOPICAL ×2 (06:33→21:08)
[2019-05-07] MEDS: Ascorbic Acid 500 MG Tablet PO (06:33)
[2019-05-07] MEDS: Mupirocin Ointment 22gm Tube 1 APPLIC OPERA.SITE (08:42)
[2019-05-07] MEDS: Iron Polysaccharide Complex 150 MG CAPSULE PO (08:42)
--- NOTE | 2019-05-07 10:14 | CASEMGMT ---
Social Work IDT met with patient for care plan meeting. Pt is currently on bedrest through the end of the week. Continues to have 1:1 visits with activities. SW offers visits as well. After bedrest order is lifted, pt will begin working with therapy. Explained Medicare coverage. Will continue to follow. JOSE ALEJANDRO Dumont
[2019-05-07] MEDS: Pantoprazole Sodium 40 MG Tablet PO (12:53)
--- NOTE | 2019-05-07 15:04 | NURSING ---
pt refusing celexa, pt states that she doesn't want it, that nothing works for her. Dr Sanchez updated, celexa discontinued'
[2019-05-07 16:00] VITALS: BP 133/75; PULSE 88; RESP 17; TEMP 36.8; O2SAT 95
[2019-05-07 21:11] VITALS: O2SAT 98
[2019-05-08] MEDS: 0.9% Saline Lock 10 ML Syringe IV ×3 (00:36→17:35)
[2019-05-08] MEDS: Acetaminophen 500 MG Tablet 1000 MG PO ×4 (00:46→19:18)
[2019-05-08] MEDS: Baclofen 10 MG Tablet PO ×2 (02:53→14:53)
[2019-05-08] MEDS: Enoxaparin 40 MG/0.4 ML Syringe SC (06:45)
[2019-05-08] MEDS: Docusate Sodium 100 MG Capsule PO ×2 (06:45→17:34)
[2019-05-08] MEDS: Omega-3 Acid Ethyl Esters 1 GM Capsule PO (06:45)
[2019-05-08] MEDS: Gabapentin 400 MG Capsule PO ×3 (06:45→21:10)
[2019-05-08] MEDS: Levothyroxine 25 MCG TABLET PO (06:45)
[2019-05-08] MEDS: Ascorbic Acid 500 MG Tablet PO (06:45)
[2019-05-08] MEDS: levoFLOXacin 500 MG Tablet PO (06:46)
[2019-05-08] MEDS: metroNIDAZOLE 500 MG Tablet PO ×3 (06:46→21:10)
[2019-05-08] MEDS: Nystatin Powder 15gm Bottle 1 APPLIC TOPICAL ×2 (06:55→21:11)
[2019-05-08] MEDS: Iron Polysaccharide Complex 150 MG CAPSULE PO (08:29)
[2019-05-08] MEDS: Mupirocin Ointment 22gm Tube 1 APPLIC OPERA.SITE (08:29)
--- NOTE | 2019-05-08 09:30 | MDS.RN ---
Information for the mds was obtained from review of the clinical record, interview of resident, staff, and direct observation of resident's care.
[2019-05-08] MEDS: Pantoprazole Sodium 40 MG Tablet PO (13:10)
[2019-05-08 15:52] VITALS: BP 105/57; PULSE 75; RESP 16; TEMP 36.8; O2SAT 93
[2019-05-09] MEDS: Acetaminophen 500 MG Tablet 1000 MG PO ×4 (00:47→23:35)
[2019-05-09] MEDS: 0.9% Saline Lock 10 ML Syringe IV ×4 (00:53→20:26)
--- NOTE | 2019-05-09 00:57 | NURSING ---
Unable to draw blood from PICC line. Had pt turn and lay on her left side. Flushed with 20cc NS, moved pts arm up and had her turn her head to the side and cough. Brisk blood return noted. IV vanc infusing.
[2019-05-09] MEDS: Levothyroxine 25 MCG TABLET PO (06:46)
[2019-05-09] MEDS: Ascorbic Acid 500 MG Tablet PO (06:46)
[2019-05-09] MEDS: metroNIDAZOLE 500 MG Tablet PO ×3 (06:46→20:31)
[2019-05-09] MEDS: levoFLOXacin 500 MG Tablet PO (06:46)
[2019-05-09] MEDS: Docusate Sodium 100 MG Capsule PO ×2 (06:46→17:42)
[2019-05-09] MEDS: Gabapentin 400 MG Capsule PO ×3 (06:46→20:30)
[2019-05-09] MEDS: Omega-3 Acid Ethyl Esters 1 GM Capsule PO (06:46)
[2019-05-09] MEDS: Enoxaparin 40 MG/0.4 ML Syringe SC (06:47)
[2019-05-09] MEDS: Nystatin Powder 15gm Bottle 1 APPLIC TOPICAL (06:48)
[2019-05-09] MEDS: Iron Polysaccharide Complex 150 MG CAPSULE PO (07:58)
[2019-05-09 08:49] LABS: Vancomycin, Trough Level 20.3 ug/mL (5.0-15.0)
--- NOTE | 2019-05-09 11:22 | PCM.RX.CS ---
Consult Pharmacy has been consulted to manage selected antiobiotic: Vancomycin Type of Consult: Follow-up Suspected Infection: Osteomyelitis Prior Doses of Antibiotics Received/Current Regimen: Current regimen is 1250mg IV q8h Labs: Sodium 140 mmol/L (136-145) 05/05/19 05:15 Potassium 3.9 mmol/L (3.5-5.1) 05/05/19 05:15 Chloride 108 mmol/L (98-107) H 05/05/19 05:15 Carbon Dioxide 27.0 mmol/L (21.0-32.0) 05/05/19 05:15 Anion Gap 5 (5-15) 05/05/19 05:15 BUN 23 mg/dL (7-18) H 05/05/19 05:15 Creatinine 0.61 mg/dL (0.55-1.02) 05/05/19 05:15 Est GFR (MDRD) Af Amer 125 mL/min (>60) 05/05/19 05:15 Est GFR (MDRD) Non-Af 103 mL/min (>60) 05/05/19 05:15 BUN/Creatinine Ratio 37.6 RATIO (10-20) H 05/05/19 05:15 Glucose 89 mg/dL (74-106) 05/05/19 05:15 Vancomycin Trough 20.3 ug/mL (5.0-15.0) H 05/09/19 08:02 Random Vancomycin 12.0 ug/mL (0.0-15.0) 05/05/19 14:30 Weight used for dosin kg Goal Trough: 15-20 mcg/mL Pharmacy Plan for Drug Dosing: Trough drawn before this morning's dose (drawn about 7.5 hours after the previous dose) came back as 20.3, which is slightly higher than the goal range of 15-20. Since the previous trough was also near the higher end of the goal range, the plan is to change the dosing regimen to 1000mg IV q8h. Will start this new dose tonight since this morning's dose of 1250mg has already been given. Will also order a SCr to be taken tomorrow with the trough to check renal function. Pharmacy Service will continue to monitor and adjust dosing as required. Follow-Up Labs: Trough Vancomycin Labs to be done on [date and time ordered]: 05/10/19 17:30
[2019-05-09] MEDS: Pantoprazole Sodium 40 MG Tablet PO (13:27)
[2019-05-09] MEDS: Mupirocin Ointment 22gm Tube 1 APPLIC OPERA.SITE (14:17)
--- NOTE | 2019-05-09 14:31 | NURSING ---
In to see patient with Dr Hansen. 2 JANE drains were pulled per Dr Hansen (one from each side). pt tolerated well. dressing changed as ordered. Pt now allowed to get up to the bathroom for bowel movements.
[2019-05-09 15:49] VITALS: BP 122/62; PULSE 88; RESP 17; TEMP 36.8; O2SAT 94
[2019-05-09] MEDS: Vancomycin IV 1,000 MG/200 ML BAG 200 MG IV (17:43)
[2019-05-09] MEDS: Baclofen 10 MG Tablet PO (20:30)
[2019-05-09] MEDS: oxyCODONE 5 MG Tablet 10 MG PO (21:17)
[2019-05-10] MEDS: 0.9% Saline Lock 10 ML Syringe IV ×4 (01:38→17:20)
[2019-05-10] MEDS: Vancomycin IV 1,000 MG/200 ML BAG 200 MG IV ×3 (01:41→17:21)
[2019-05-10] MEDS: Acetaminophen 500 MG Tablet 1000 MG PO ×4 (05:37→23:50)
[2019-05-10] MEDS: Levothyroxine 25 MCG TABLET PO (05:42)
[2019-05-10] MEDS: levoFLOXacin 500 MG Tablet PO (05:42)
[2019-05-10] MEDS: Omega-3 Acid Ethyl Esters 1 GM Capsule PO (05:42)
[2019-05-10] MEDS: metroNIDAZOLE 500 MG Tablet PO ×3 (05:42→21:28)
[2019-05-10] MEDS: Gabapentin 400 MG Capsule PO ×3 (05:42→21:27)
[2019-05-10] MEDS: Docusate Sodium 100 MG Capsule PO ×2 (05:42→17:20)
[2019-05-10] MEDS: Ascorbic Acid 500 MG Tablet PO (05:42)
[2019-05-10] MEDS: Enoxaparin 40 MG/0.4 ML Syringe SC (05:44)
[2019-05-10] MEDS: Iron Polysaccharide Complex 150 MG CAPSULE PO (08:05)
[2019-05-10] MEDS: Mupirocin Ointment 22gm Tube 1 APPLIC OPERA.SITE (08:51)
[2019-05-10] MEDS: Pantoprazole Sodium 40 MG Tablet PO (14:33)
[2019-05-10 16:00] VITALS: BP 132/77; PULSE 82; RESP 16; TEMP 36.7; O2SAT 96
[2019-05-10] MEDS: Baclofen 10 MG Tablet PO (17:18)
[2019-05-10 18:05] LABS: Creatinine, Serum 0.58 mg/dL (0.55-1.02); EST Glomerular Filtration Rate 109 mL/min (>60); Est Glom Filt Rate - Afr Amer 132 mL/min (>60); Estimated Creatinine Clearance 47.14 ml/min
[2019-05-10 18:12] LABS: Vancomycin, Trough Level 39.1 ug/mL (5.0-15.0)
--- NOTE | 2019-05-10 19:08 | PCM.RX.CS ---
Consult Pharmacy has been consulted to manage selected antiobiotic: Vancomycin Type of Consult: Follow-up Labs: Sodium 140 mmol/L (136-145) 05/05/19 05:15 Potassium 3.9 mmol/L (3.5-5.1) 05/05/19 05:15 Chloride 108 mmol/L (98-107) H 05/05/19 05:15 Carbon Dioxide 27.0 mmol/L (21.0-32.0) 05/05/19 05:15 Anion Gap 5 (5-15) 05/05/19 05:15 BUN 23 mg/dL (7-18) H 05/05/19 05:15 Creatinine 0.58 mg/dL (0.55-1.02) 05/10/19 17:30 Est GFR (MDRD) Af Amer 132 mL/min (>60) 05/10/19 17:30 Est GFR (MDRD) Non-Af 109 mL/min (>60) 05/10/19 17:30 BUN/Creatinine Ratio 37.6 RATIO (10-20) H 05/05/19 05:15 Glucose 89 mg/dL (74-106) 05/05/19 05:15 Vancomycin Trough 39.1 ug/mL (5.0-15.0) H 05/10/19 17:30 Random Vancomycin 12.0 ug/mL (0.0-15.0) 05/05/19 14:30 Weight used for dosin kg Goal Trough: 15-20 mcg/mL Pharmacy Plan for Drug Dosing: Pt had a trough level to be drawn at 1730 on 05/10/19. Pt's dose was given before the trough was drawn. Will re schedule trough for 05/11/19 at 0130 Pharmacy Service will continue to monitor and adjust dosing as required. Follow-Up Labs: Trough Vancomycin - 05/11/19 at 0130
[2019-05-11 02:29] LABS: Vancomycin, Trough Level 17.5 ug/mL (5.0-15.0)
[2019-05-11] MEDS: Vancomycin IV 1,000 MG/200 ML BAG 200 MG IV ×3 (02:38→17:38)
[2019-05-11] MEDS: 0.9% Saline Lock 10 ML Syringe IV (02:43)
--- NOTE | 2019-05-11 03:21 | PCM.RX.CS ---
Consult Pharmacy has been consulted to manage selected antiobiotic: Vancomycin Type of Consult: Follow-up Labs: Sodium 140 mmol/L (136-145) 05/05/19 05:15 Potassium 3.9 mmol/L (3.5-5.1) 05/05/19 05:15 Chloride 108 mmol/L (98-107) H 05/05/19 05:15 Carbon Dioxide 27.0 mmol/L (21.0-32.0) 05/05/19 05:15 Anion Gap 5 (5-15) 05/05/19 05:15 BUN 23 mg/dL (7-18) H 05/05/19 05:15 Creatinine 0.58 mg/dL (0.55-1.02) 05/10/19 17:30 Est GFR (MDRD) Af Amer 132 mL/min (>60) 05/10/19 17:30 Est GFR (MDRD) Non-Af 109 mL/min (>60) 05/10/19 17:30 BUN/Creatinine Ratio 37.6 RATIO (10-20) H 05/05/19 05:15 Glucose 89 mg/dL (74-106) 05/05/19 05:15 Vancomycin Trough 17.5 ug/mL (5.0-15.0) H 05/11/19 01:35 Random Vancomycin 12.0 ug/mL (0.0-15.0) 05/05/19 14:30 Goal Trough: 15-20 mcg/mL Pharmacy Plan for Drug Dosing: Pharmacy Service will continue to monitor and adjust dosing as required. Medications Vancomycin HCl (Vancomycin) 1,000 mg in 200 mls @ 200 mls/hr IV Q8H [facility] Last Admin: 05/11/19 02:38 Dose: 200 mls/hr Documented by: TROUGH 17.5 NO CHANGES NEXT TROUGH 05/15 @ 0130 Follow-Up Labs: Trough Vancomycin Labs to be done on [date and time ordered]: 05/15 @ 0130
[2019-05-11] MEDS: Gabapentin 400 MG Capsule PO ×3 (06:23→21:20)
[2019-05-11] MEDS: metroNIDAZOLE 500 MG Tablet PO ×3 (06:23→21:20)
[2019-05-11] MEDS: Acetaminophen 500 MG Tablet 1000 MG PO ×4 (06:23→23:51)
[2019-05-11] MEDS: Levothyroxine 25 MCG TABLET PO (06:24)
[2019-05-11] MEDS: Docusate Sodium 100 MG Capsule PO ×2 (06:24→17:14)
[2019-05-11] MEDS: Omega-3 Acid Ethyl Esters 1 GM Capsule PO (06:24)
[2019-05-11] MEDS: Enoxaparin 40 MG/0.4 ML Syringe SC (06:25)
[2019-05-11] MEDS: levoFLOXacin 500 MG Tablet PO (06:25)
[2019-05-11] MEDS: Ascorbic Acid 500 MG Tablet PO (06:26)
[2019-05-11] MEDS: Iron Polysaccharide Complex 150 MG CAPSULE PO (07:50)
[2019-05-11] MEDS: Pantoprazole Sodium 40 MG Tablet PO (14:29)
[2019-05-11] MEDS: Mupirocin Ointment 22gm Tube 1 APPLIC OPERA.SITE (14:32)
[2019-05-11 15:45] VITALS: BP 131/81; PULSE 92; RESP 18; TEMP 36.6; O2SAT 91
--- NOTE | 2019-05-11 19:42 | PCM.PN.SRG ---
Subjective: THIS WAS A PROGRESS NOTE FOR 05/09/19 Patient is resting comfortably. - Physical Exam Vitals/I&O's: Vital Signs Temp Pulse Resp BP Pulse Ox 97.9 F 92 18 131/81 H 91 05/11/19 15:45 05/11/19 15:45 05/11/19 15:45 05/11/19 15:45 05/11/19 15:45 Oxygen Delivery Method Room Air Weight: 216 lb 0.848 oz Body Mass Index (BMI) 36.8 Intake and Output for Last 24 Hours 05/09/19 05/10/19 05/11/19 23:59 23:59 23:59 Intake Total 1764.87 / 1764.87 1550.75 / 1550.75 1360 / 1360 Output Total 3915 / 3915 3318 / 3318 1750 / 1750 Balance -2150.13 / -2150.13 -1767.25 / -1767.25 -390 / -390 Drainage 95 ml yesterday. General: Alert, Oriented x3 HEENT: PERRLA, EOMI Oral: Moist Mucosa Neck: Supple Abdomen: Soft, Non-Distended Skin: Incision - Incisions are dry and intact. Flap is healing satisfactory. No evidence of vascular compromise. Neurological: Cranial nerves II-XII grossly intact Psych/Mental Status: Normal Affect, Appropriate Laboratory Results 05/11/19 01:35: Vancomycin Trough 17.5 H Hgb from 05/05/19 - 9.3 Current Medications Acetaminophen (Tylenol) 1,000 mg PO Q6 [facility] Last Admin: 05/11/19 18:13 Dose: 1,000 mg Documented by: Ascorbic Acid (Vitamin C) 500 mg PO DAILY [facility] Last Admin: 05/11/19 06:26 Dose: 500 mg Documented by: Baclofen (Lioresal) 10 mg PO TID PRN PRN Reason: back pain Last Admin: 05/10/19 17:18 Dose: 10 mg Documented by: Calcium Carbonate (Tums) 1,000 mg PO Q4H PRN PRN PRN Reason: INDIGESTION Diclofenac Sodium (Voltaren) [facility] Last Admin: 05/11/19 17:14 Dose: 50 mg Documented by: Docusate Sodium (Colace) 100 mg PO BID [facility] Last Admin: 12/08/19 17:14 Dose: 100 mg Documented by: Enoxaparin Sodium (Lovenox) 40 mg SC DAILY@0600 [facility] Last Admin: 05/11/19 06:25 Dose: 40 mg Documented by: Ergocalciferol (Vitamin D) 50,000 unit PO QMONTH [facility] Last Admin: 05/03/19 08:36 Dose: 50,000 unit Documented by: Gabapentin (Neurontin) 400 mg PO TID [facility] Last Admin: 05/11/19 14:28 Dose: 400 mg Documented by: Heparin Sodium (Beef Lung) () 50 units IV UD PRN PRN Reason: PICC Line Heparin Flush Last Admin: 05/04/19 12:31 Dose: 50 units Documented by: Sodium Chloride () 250 mls @ 15 mls/hr IV .[id number] PRN PRN Reason: Saline Flush Last Infusion: 05/10/19 18:21 Dose: 0 mls/hr Documented by: Vancomycin IV Pharmacy to Dose (1 ea/ Sodium Chloride) 500 mls @ 250 mls/hr IV X1 PRN; Protocol PRN Reason: Rx to Dose Vancomycin HCl (Vancomycin) 1,000 mg in 200 mls @ 200 mls/hr IV Q8H [facility] Last Admin: 05/11/19 17:38 Dose: 200 mls/hr Documented by: Lactobacillus Acidophilus (Acidophilus) 1 tablet PO DAILY [facility] Last Admin: 05/11/19 06:24 Dose: 1 tablet Documented by: Levofloxacin (Levaquin Tablet) 500 mg PO DAILY@0600 [facility] Last Admin: 05/11/19 06:25 Dose: 500 mg Documented by: Levothyroxine Sodium (Synthroid) 25 mcg PO DAILY [facility] Last Admin: 05/11/19 06:24 Dose: 25 mcg Documented by: Linaclotide (Linzess) 145 mcg PO DAILY PRN PRN Reason: Constipation Metronidazole (Flagyl) 500 mg PO TID [facility] Last Admin: 05/11/19 14:28 Dose: 500 mg Documented by: Mupirocin (Bactroban) 1 applic OPERA.SITE DAILY@0800 [facility]; Protocol Last Admin: 05/11/19 14:32 Dose: 1 applicatio Documented by: Nutritional Formula (Teofilo - [place] Flavor) 1 packet PO BIDCM [facility] Last Admin: 05/11/19 17:37 Dose: 1 packet Documented by: Nystatin (Mycostatin Powder) 1 applic TOPICAL 0600,2200 [facility]; Protocol Last Admin: 05/11/19 06:25 Dose: Not Given Documented by: [id number] Ethyl Esters (Lovaza) 1 gm PO DAILY [facility] Last Admin: 05/11/19 06:24 Dose: 1 gm Documented by: Ondansetron HCl (Zofran) 4 mg IV Q6H PRN PRN PRN Reason: NAUSEA Oxycodone HCl (Oxyir) 10 mg PO Q4H PRN PRN PRN Reason: Pain Score 6-10/10 Last Admin: 05/09/19 21:17 Dose: 10 mg Documented by: Pantoprazole Sodium (Protonix) 40 mg PO 1400 [facility] Last Admin: 05/11/19 14:29 Dose: 40 mg Documented by: Polyethylene Glycol (Miralax) 17 gm PO BID [facility] Last Admin: 05/11/19 17:06 Dose: Not Given Documented by: Polysaccharide Iron Complex (Ferrex 150) 150 mg PO DAILYCM [facility] Last Admin: 05/11/19 07:50 Dose: 150 mg Documented by: Potassium Chloride (K-Dur) 40 meq PO DAILY [facility] Last Admin: 05/11/19 06:25 Dose: 40 meq Documented by: Promethazine HCl (Phenergan Tablet) 25 mg PO Q4H PRN PRN PRN Reason: NAUSEA/VOMITING Sodium Chloride () 10 - 40 ml IV UD PRN PRN Reason: Open End PICC Flush Last Admin: 05/11/19 02:43 Dose: 20 ml Documented by: Sodium Chloride (0.9% Nacl (Sterile) Posiflush) 10 - 40 ml IV UD PRN PRN Reason: Port access or dressing change Medical Necessity - Tobacco Use Smoking Status: Former smoker Tobacco Use: Non-smoker Assessment/Plan All Active Problems (Last Updated 04/18/19 @ 13:58 by PAPI Jaramillo) Back pain (Acute) Heart murmur (Acute) Debility (Acute) Atrial fibrillation with RVR (Resolved) Clostridium difficile colitis (Resolved) Clostridium difficile infection (Resolved) Hypertension (Resolved) Rhabdomyolysis (Resolved) 1. Sacral pressure sore, Stage IV. 2. Osteomyelitis. 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 5. s/p excision sacral pressure sore, Stage IV, with partial ostectomy for osteomyelitis and reconstruction with lumbar bilobed fasciocutaneous transposition flap (255 cm2) and placement of AmnioFill placental connective tissue powder, 1000 mg. 6. Anemia of chronic disease, acute on chronic. Incisions are dry and intact. Flap is soft and healing satisfactory. No evidence of vascular compromise. Continue antibiotic ointment to suture line daily. Two drains removed today. Patient may get out of bed to go to the bathroom, then get back in bed. Will reassess healing of flap after that. Will remove remaining drains next week. Continue IV Vancomycin for osteomyelitis and MRSA.
[2019-05-11] MEDS: Baclofen 10 MG Tablet PO (21:20)
[2019-05-12] MEDS: Vancomycin IV 1,000 MG/200 ML BAG 200 MG IV ×3 (02:26→17:27)
[2019-05-12] MEDS: 0.9% Saline Lock 10 ML Syringe IV ×4 (02:30→18:26)
[2019-05-12 05:45] LABS: Absolute Lymphocyte Count 1.97 X10^3/uL (0.83-4.51); Absolute Neutrophil Count 4.6 X10^3/uL (2.0-7.7); Basophil# 0.07 X10^3/uL; Basophil% 0.9 % (0-1); Eosinophil# 0.36 X10^3/uL; Eosinophils% 4.4 % (0-5); Hematocrit 35.5 % (37-47); Hemoglobin 10.2 g/dL (12.0-15.0); Lymphocyte # 1.97 X10^3/ul (4.0); Lymphocyte % 24.2 % (19-41); Mean Corp Hgb Conc 28.7 g/dL (32-36); Mean Corpuscular Hgb 23.9 pg (27.0-32.0); Mean Corpuscular Volume 83.3 fL (81-99); Mean Platelet Vol. 8.8 fl (6.2-12.0); Monocyte# 1.12 X10^3/uL; Monocyte% 13.8 % (0-10); NRBC Flagged by Analyzer 0 % (0-5); Neutrophil # 4.57 X10^3/uL (2.7-7.7); Neutrophil % 56.1 % (47-70); Platelet Count 602 K/mm3 (150-450); RBC Distribution Width CV 14.8 % (11.6-14.6); RBC Distribution Width SD 44.6 fl (35.1-43.9); Red Blood Count 4.26 M/mm3 (4.2-5.4); White Blood Count 8.1 K/mm3 (4.4-11.0)
[2019-05-12 05:56] LABS: CRP 3.52 mg/L (0.0-3.0)
[2019-05-12 06:21] LABS: Erythrocyte Sedimentation Rate 38 mm/hr (0-30)
[2019-05-12] MEDS: Enoxaparin 40 MG/0.4 ML Syringe SC (06:30)
[2019-05-12] MEDS: Ascorbic Acid 500 MG Tablet PO (06:32)
[2019-05-12] MEDS: Omega-3 Acid Ethyl Esters 1 GM Capsule PO (06:32)
[2019-05-12] MEDS: Acetaminophen 500 MG Tablet 1000 MG PO ×4 (06:32→23:52)
[2019-05-12] MEDS: levoFLOXacin 500 MG Tablet PO (06:32)
[2019-05-12] MEDS: metroNIDAZOLE 500 MG Tablet PO ×3 (06:32→21:06)
[2019-05-12] MEDS: Docusate Sodium 100 MG Capsule PO ×2 (06:32→17:33)
[2019-05-12] MEDS: Gabapentin 400 MG Capsule PO ×3 (06:33→21:06)
[2019-05-12] MEDS: Levothyroxine 25 MCG TABLET PO (06:33)
[2019-05-12 07:00] LABS: ALB/GLOB Ratio 0.8 RATIO (0.9-2.4); AST(SGOT) 13 U/L (15-37); Alanine Aminotransfer ALT/SGPT 15 U/L (13-56); Albumin, Serum 3.1 g/dL (3.2-5.0); Alkaline Phosphatase 76 U/L (45-117); Anion Gap 6 (5-15); BUN 26 mg/dL (7-18); BUN/Creat Ratio 43.8 RATIO (10-20); Calcium,Total 8.9 mg/dL (8.5-10.1); Chloride 110 mmol/L (98-107); Creatinine, Serum 0.59 mg/dL (0.55-1.02); EST Glomerular Filtration Rate 107 mL/min (>60); Est Glom Filt Rate - Afr Amer 130 mL/min (>60); Estimated Creatinine Clearance 47.14 ml/min; Globulin 3.7 g/dL (2.2-4.2); Glucose 84 mg/dL (74-106); Protein, Total 6.8 g/dL (6.4-8.2); Sodium Level 142 mmol/L (136-145)
[2019-05-12] MEDS: Iron Polysaccharide Complex 150 MG CAPSULE PO (08:17)
[2019-05-12] MEDS: Baclofen 10 MG Tablet PO (09:46)
[2019-05-12] MEDS: Mupirocin Ointment 22gm Tube 1 APPLIC OPERA.SITE (11:05)
--- NOTE | 2019-05-12 11:35 | NURSING ---
functional abilities and goal per therapies notes and head nurse
--- NOTE | 2019-05-12 11:36 | NURSING ---
ending of vanc/flushng per head nurse
[2019-05-12] MEDS: Pantoprazole Sodium 40 MG Tablet PO (13:10)
[2019-05-12 16:00] VITALS: BP 110/60; PULSE 88; RESP 16; TEMP 36.8
[2019-05-13] MEDS: 0.9% Saline Lock 10 ML Syringe IV (02:23)
[2019-05-13] MEDS: Vancomycin IV 1,000 MG/200 ML BAG 200 MG IV ×3 (02:23→17:25)
[2019-05-13] MEDS: levoFLOXacin 500 MG Tablet PO (06:34)
[2019-05-13] MEDS: Enoxaparin 40 MG/0.4 ML Syringe SC (06:34)
[2019-05-13] MEDS: Ascorbic Acid 500 MG Tablet PO (06:34)
[2019-05-13] MEDS: Levothyroxine 25 MCG TABLET PO (06:34)
[2019-05-13] MEDS: metroNIDAZOLE 500 MG Tablet PO ×3 (06:34→21:16)
[2019-05-13] MEDS: Acetaminophen 500 MG Tablet 1000 MG PO ×4 (06:34→23:56)
[2019-05-13] MEDS: Docusate Sodium 100 MG Capsule PO ×2 (06:34→15:03)
[2019-05-13] MEDS: Gabapentin 400 MG Capsule PO ×3 (06:34→21:16)
[2019-05-13] MEDS: Omega-3 Acid Ethyl Esters 1 GM Capsule PO (06:34)
[2019-05-13] MEDS: Iron Polysaccharide Complex 150 MG CAPSULE PO (07:37)
[2019-05-13] MEDS: Polyethylene Glycol 3350 17 GM PACKET PO ×2 (07:39→15:03)
[2019-05-13] MEDS: Mupirocin Ointment 22gm Tube 1 APPLIC OPERA.SITE (10:50)
--- NOTE | 2019-05-13 11:09 | NURSING ---
wound photo: sacrum/lower back
[2019-05-13] MEDS: Pantoprazole Sodium 40 MG Tablet PO (15:01)
[2019-05-13 15:31] VITALS: BP 99/57; PULSE 93; RESP 18; TEMP 36.8; O2SAT 94
[2019-05-13] MEDS: Baclofen 10 MG Tablet PO (17:23)
[2019-05-14] MEDS: Vancomycin IV 1,000 MG/200 ML BAG 200 MG IV ×3 (02:05→18:00)
[2019-05-14] MEDS: 0.9% Saline Lock 10 ML Syringe IV (02:06)
[2019-05-14] MEDS: Polyethylene Glycol 3350 17 GM PACKET PO (06:32)
[2019-05-14] MEDS: Omega-3 Acid Ethyl Esters 1 GM Capsule PO (06:32)
[2019-05-14] MEDS: Enoxaparin 40 MG/0.4 ML Syringe SC (06:32)
[2019-05-14] MEDS: Gabapentin 400 MG Capsule PO ×3 (06:33→21:14)
[2019-05-14] MEDS: levoFLOXacin 500 MG Tablet PO (06:33)
[2019-05-14] MEDS: Docusate Sodium 100 MG Capsule PO ×2 (06:33→18:01)
[2019-05-14] MEDS: Levothyroxine 25 MCG TABLET PO (06:34)
[2019-05-14] MEDS: Ascorbic Acid 500 MG Tablet PO (06:34)
[2019-05-14] MEDS: metroNIDAZOLE 500 MG Tablet PO ×3 (06:34→21:14)
[2019-05-14] MEDS: Acetaminophen 500 MG Tablet 1000 MG PO ×3 (06:35→18:36)
[2019-05-14] MEDS: Iron Polysaccharide Complex 150 MG CAPSULE PO (07:33)
[2019-05-14] MEDS: Mupirocin Ointment 22gm Tube 1 APPLIC OPERA.SITE (09:12)
[2019-05-14] MEDS: Pantoprazole Sodium 40 MG Tablet PO (14:08)
[2019-05-14] MEDS: Baclofen 10 MG Tablet PO (14:08)
--- NOTE | 2019-05-14 15:00 | CHAPLAIN ---
Type of Pastoral Visit ___ Initial Visit _x__ Follow-up Visit ___ On-call Visit ___ General Patient Visit ___ Spiritual Assessment ___ Family Conference ___ Bereavement ___ Rapid Response ___ Code Blue ___ Other (describe below) Pastoral Care Referral From _x__ Patient ___ Family ___ Nurse ___ Physician ___ Ecd ___ Field Servicer ___ Other (describe below) Sacrament/Intervention _x__ Active listening ___ Anointing ___ Gnosticism ___ Bereavement ___ Communion _x__ Mayra exploration ___ _x__ Life review _x__ Prayer ___ Reconciliation ___ Sacrament of Sick _x__ Supportive presence ___ Wedding ___ Other (describe below) Pastoral Comments patient comes with several Bible questions when we talk
[2019-05-14 16:00] VITALS: BP 104/51; PULSE 89; RESP 16; TEMP 36.8; O2SAT 94
[2019-05-15] MEDS: Acetaminophen 500 MG Tablet 1000 MG PO ×4 (00:14→18:41)
[2019-05-15 02:23] LABS: Creatinine, Serum 0.61 mg/dL (0.55-1.02); EST Glomerular Filtration Rate 104 mL/min (>60); Est Glom Filt Rate - Afr Amer 126 mL/min (>60); Estimated Creatinine Clearance 47.14 ml/min
--- NOTE | 2019-05-15 02:26 | PCM.RX.CS ---
Consult Pharmacy has been consulted to manage selected antiobiotic: Vancomycin Type of Consult: Follow-up Suspected Infection: Osteomyelitis Prior Doses of Antibiotics Received/Current Regimen: Medications Vancomycin HCl (Vancomycin) 1,000 mg in 200 mls @ 200 mls/hr IV Q8H [facility] Last Admin: 05/14/19 19:00 Dose: Infused Labs: Sodium 142 mmol/L (136-145) 05/12/19 05:10 Potassium 4.0 mmol/L (3.5-5.1) 05/12/19 05:10 Chloride 110 mmol/L (98-107) H 05/12/19 05:10 Carbon Dioxide 26.0 mmol/L (21.0-32.0) 05/12/19 05:10 Anion Gap 6 (5-15) 05/12/19 05:10 BUN 26 mg/dL (7-18) H 05/12/19 05:10 Creatinine 0.61 mg/dL (0.55-1.02) 05/15/19 01:39 Est GFR (MDRD) Af Amer 126 mL/min (>60) 05/15/19 01:39 Est GFR (MDRD) Non-Af 104 mL/min (>60) 05/15/19 01:39 BUN/Creatinine Ratio 43.8 RATIO (10-20) H 05/12/19 05:10 Glucose 84 mg/dL (74-106) 05/12/19 05:10 Vancomycin Trough 19.0 ug/mL (5.0-15.0) H 05/15/19 01:39 Random Vancomycin 12.0 ug/mL (0.0-15.0) 05/05/19 14:30 Weight used for dosin.2 kg Estimated Creatinine Clearance: 47 Goal Trough: 15-20 mcg/mL Pharmacy Plan for Drug Dosing: Trough level of 19.0 was within target range of 15-20. Will continue current dosing and re-draw trough in 4 days. Pharmacy Service will continue to monitor and adjust dosing as required. Follow-Up Labs: Trough Vancomycin Labs to be done on [date and time ordered]: 05/19/19 @2860
[2019-05-15] MEDS: Vancomycin IV 1,000 MG/200 ML BAG 200 MG IV ×3 (02:29→17:07)
[2019-05-15] MEDS: Ascorbic Acid 500 MG Tablet PO (06:32)
[2019-05-15] MEDS: Omega-3 Acid Ethyl Esters 1 GM Capsule PO (06:32)
[2019-05-15] MEDS: Gabapentin 400 MG Capsule PO ×3 (06:32→21:11)
[2019-05-15] MEDS: Enoxaparin 40 MG/0.4 ML Syringe SC (06:32)
[2019-05-15] MEDS: Docusate Sodium 100 MG Capsule PO ×2 (06:32→17:05)
[2019-05-15] MEDS: levoFLOXacin 500 MG Tablet PO (06:32)
[2019-05-15] MEDS: Levothyroxine 25 MCG TABLET PO (06:32)
[2019-05-15] MEDS: metroNIDAZOLE 500 MG Tablet PO ×3 (06:33→21:11)
[2019-05-15] MEDS: Iron Polysaccharide Complex 150 MG CAPSULE PO (08:43)
[2019-05-15] MEDS: Mupirocin Ointment 22gm Tube 1 APPLIC OPERA.SITE (08:44)
[2019-05-15] MEDS: 0.9% Saline Lock 10 ML Syringe IV ×2 (09:50→17:07)
[2019-05-15] MEDS: Pantoprazole Sodium 40 MG Tablet PO (13:26)
[2019-05-15 16:00] VITALS: BP 129/64; PULSE 78; RESP 16; TEMP 37.2; O2SAT 95
[2019-05-15] MEDS: Baclofen 10 MG Tablet PO (17:03)
[2019-05-16] MEDS: Acetaminophen 500 MG Tablet 1000 MG PO ×4 (00:15→18:46)
[2019-05-16] MEDS: Vancomycin IV 1,000 MG/200 ML BAG 200 MG IV ×3 (01:20→17:51)
[2019-05-16] MEDS: 0.9% Saline Lock 10 ML Syringe IV ×3 (01:21→17:50)
[2019-05-16] MEDS: Ascorbic Acid 500 MG Tablet PO (06:29)
[2019-05-16] MEDS: Gabapentin 400 MG Capsule PO ×3 (06:29→21:15)
[2019-05-16] MEDS: levoFLOXacin 500 MG Tablet PO (06:29)
[2019-05-16] MEDS: Enoxaparin 40 MG/0.4 ML Syringe SC (06:29)
[2019-05-16] MEDS: Levothyroxine 25 MCG TABLET PO (06:29)
[2019-05-16] MEDS: Docusate Sodium 100 MG Capsule PO ×2 (06:29→17:49)
[2019-05-16] MEDS: metroNIDAZOLE 500 MG Tablet PO ×3 (06:29→21:15)
[2019-05-16] MEDS: Omega-3 Acid Ethyl Esters 1 GM Capsule PO (06:30)
[2019-05-16] MEDS: Iron Polysaccharide Complex 150 MG CAPSULE PO (08:16)
[2019-05-16] MEDS: Mupirocin Ointment 22gm Tube 1 APPLIC OPERA.SITE (08:16)
--- NOTE | 2019-05-16 11:07 | NURSING ---
Addendum entered by Antonieta Garza 05/16/19 12:33: Dora Eldridge NP here and debrided cleft area on coccyx, new orders entered to that area. pt tearful during procedure. 1:1 support provided. Pleasant and cooperative. pt very worried about area not healing. some sutures were removed and both drains removed. Original Note: DR Hansen's Nurse practitioner returned call and will be in for possible drain removal and drsg change. also made her aware that she has an area to megan cleft that has some sloughing, unapproximation noted.
--- NOTE | 2019-05-16 12:02 | PN.SURG_ITS ---
Subjective: Patient is resting in bed comfortably - Physical Exam Vitals/I&O's: Vital Signs Temp Pulse Resp BP Pulse Ox 99.0 F 78 16 129/64 H 95 05/15/19 16:00 05/15/19 16:00 05/15/19 16:00 05/15/19 16:00 05/15/19 16:00 Oxygen Delivery Method Room Air Weight: 216 lb 9.6 oz Body Mass Index (BMI) 36.8 Intake and Output for Last 24 Hours 05/14/19 05/15/19 05/16/19 23:59 23:59 23:59 Intake Total 1440 / 1440 1470 / 1470 1270 / 1270 Output Total 3240 / 3240 3162 / 3162 850 / 850 Balance -1800 / -1800 -1692 / -1692 420 / 420 General: Alert, Oriented x3, Cooperative HEENT: Atraumatic Oral: Moist Mucosa Lungs: Normal air movement Abdomen: Soft Extremities: Capillary Refill Less than 3 Seconds Skin: Ulcer/ Wound - Wound flap incisions intact. Removed half of sutures. There is 2 x 2 x 0.5 cm compromise at the sacral area that is moist. Will start daily aquacel silver dressing changes to keep the area dry. Musculoskeletal: No Tenderness to Palpation of Joints or Extremities Neurological: Neuro grossly intact Psych/Mental Status: Normal Affect - Patient is very tearful with concern about her flap. Current Medications Acetaminophen (Tylenol) 1,000 mg PO Q6 [facility] Last Admin: 05/16/19 06:37 Dose: 1,000 mg Documented by: Ascorbic Acid (Vitamin C) 500 mg PO DAILY [facility] Last Admin: 05/16/19 06:29 Dose: 500 mg Documented by: Baclofen (Lioresal) 10 mg PO TID PRN PRN Reason: back pain Last Admin: 05/15/19 17:03 Dose: 10 mg Documented by: Calcium Carbonate (Tums) 1,000 mg PO Q4H PRN PRN PRN Reason: INDIGESTION [facility] Admin: 05/16/19 08:39 Dose: 50 mg Documented by: Docusate Sodium (Colace) 100 mg PO BID [facility] Last Admin: 05/16/19 06:29 Dose: 100 mg Documented by: Enoxaparin Sodium (Lovenox) 40 mg SC DAILY@0600 [facility] Last Admin: 05/16/19 06:29 Dose: 40 mg Documented by: Ergocalciferol (Vitamin D) 50,000 unit PO QMONTH [facility] Last Admin: 05/03/19 08:36 Dose: 50,000 unit Documented by: Gabapentin (Neurontin) 400 mg PO TID [facility] Last Admin: 05/16/19 06:29 Dose: 400 mg Documented by: Heparin Sodium (Beef Lung) () 50 units IV UD PRN PRN Reason: PICC Line Heparin Flush Last Admin: 05/04/19 12:31 Dose: 50 units Documented by: Sodium Chloride () 250 mls @ 15 mls/hr IV .[id number] PRN PRN Reason: Saline Flush Last Infusion: 05/16/19 02:29 Dose: 0 mls/hr Documented by: Vancomycin IV Pharmacy to Dose (1 ea/ Sodium Chloride) 500 mls @ 250 mls/hr IV X1 PRN; Protocol PRN Reason: Rx to Dose Vancomycin HCl (Vancomycin) 1,000 mg in 200 mls @ 200 mls/hr IV Q8H [facility] Last Admin: 05/16/19 10:01 Dose: 200 mls/hr Documented by: Lactobacillus Acidophilus (Acidophilus) 1 tablet PO DAILY [facility] Last Admin: 05/16/19 06:29 Dose: 1 tablet Documented by: Levofloxacin (Levaquin Tablet) 500 mg PO DAILY@0600 [facility] Last Admin: 05/16/19 06:29 Dose: 500 mg Documented by: Levothyroxine Sodium (Synthroid) 25 mcg PO DAILY [facility] Last Admin: 05/16/19 06:29 Dose: 25 mcg Documented by: Linaclotide (Linzess) 145 mcg PO DAILY PRN PRN Reason: Constipation Metronidazole (Flagyl) 500 mg PO TID [facility] Last Admin: 05/16/19 06:29 Dose: 500 mg Documented by: Mupirocin (Bactroban) 1 applic OPERA.SITE DAILY@0800 [facility]; Protocol Last Admin: 05/16/19 08:16 Dose: 1 applicatio Documented by: Nutritional Formula (Teofilo - [place] Flavor) 1 packet PO BIDCM [facility] Last Admin: 05/16/19 08:16 Dose: 1 packet Documented by: Nystatin (Mycostatin Powder) 1 applic TOPICAL 0600,2200 PRN; Protocol PRN Reason: redness [id number] Ethyl Esters (Lovaza) 1 gm PO DAILY [facility] Last Admin: 05/16/19 06:30 Dose: 1 gm Documented by: Ondansetron HCl (Zofran) 4 mg IV Q6H PRN PRN PRN Reason: NAUSEA Oxycodone HCl (Oxyir) 10 mg PO Q4H PRN PRN PRN Reason: Pain Score 6-10/10 Last Admin: 05/09/19 21:17 Dose: 10 mg Documented by: Pantoprazole Sodium (Protonix) 40 mg PO 1400 [facility] Last Admin: 05/15/19 13:26 Dose: 40 mg Documented by: Polyethylene Glycol (Miralax) 17 gm PO BID [facility] Last Admin: 05/16/19 06:30 Dose: Not Given Documented by: Polysaccharide Iron Complex (Ferrex 150) 150 mg PO DAILYCM [facility] Last Admin: 05/16/19 08:16 Dose: 150 mg Documented by: Potassium Chloride (K-Dur) 40 meq PO DAILY [facility] Last Admin: 05/16/19 06:29 Dose: 40 meq Documented by: Promethazine HCl (Phenergan Tablet) 25 mg PO Q4H PRN PRN PRN Reason: NAUSEA/VOMITING Sodium Chloride () 10 - 40 ml IV UD PRN PRN Reason: Open End PICC Flush Last Admin: 05/16/19 10:01 Dose: 20 ml Documented by: Sodium Chloride (0.9% Nacl (Sterile) Posiflush) 10 - 40 ml IV UD PRN PRN Reason: Port access or dressing change Medical Necessity - Tobacco Use Smoking Status: Former smoker Tobacco Use: Non-smoker Assessment/Plan All Active Problems (Last Updated 04/18/19 @ 13:58 by PAPI Jaramillo) Back pain (Acute) Heart murmur (Acute) Debility (Acute) Atrial fibrillation with RVR (Resolved) Clostridium difficile colitis (Resolved) Clostridium difficile infection (Resolved) Hypertension (Resolved) Rhabdomyolysis (Resolved) 1. Sacral pressure sore, Stage IV. 2. Osteomyelitis. 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 5. s/p excision sacral pressure sore, Stage IV, with partial ostectomy for osteomyelitis and reconstruction with lumbar bilobed fasciocutaneous transposition flap (255 cm2) and placement of AmnioFill placental connective tissue powder, 1000 mg. 6. Anemia of chronic disease, acute on chronic. Incisions are dry and intact. Flap is soft and healing satisfactory. There is a 2 x 2 x 0.5 cm area of compromise at the sacrum. Per the nurse the moisture started 2 days ago. Will start Aquacel silver dressing changes daily and PRN to that area to help keep it dry. Continue antibiotic ointment to the rest of the suture line where it is dry. Removed the remaining two drains today. Removed half of the sutures. Will place the bathroom privileges on hold until Dr. Hansen is notified of the compromise of the graft. He can then determine if she can get out of bed for BMs. Grewal catheter is still in place. Continue IV Vancomycin for osteomyelitis and MRSA.
[2019-05-16] MEDS: Pantoprazole Sodium 40 MG Tablet PO (13:24)
[2019-05-16] MEDS: Baclofen 10 MG Tablet PO (15:22)
[2019-05-16 16:00] VITALS: BP 110/69; PULSE 84; RESP 18; TEMP 36.6; O2SAT 95
[2019-05-17] MEDS: Acetaminophen 500 MG Tablet 1000 MG PO ×4 (00:16→23:31)
[2019-05-17] MEDS: Vancomycin IV 1,000 MG/200 ML BAG 200 MG IV ×3 (01:51→18:05)
[2019-05-17] MEDS: 0.9% Saline Lock 10 ML Syringe IV (02:01)
[2019-05-17] MEDS: Docusate Sodium 100 MG Capsule PO ×2 (05:58→18:05)
[2019-05-17] MEDS: Levothyroxine 25 MCG TABLET PO (05:58)
[2019-05-17] MEDS: Enoxaparin 40 MG/0.4 ML Syringe SC (05:58)
[2019-05-17] MEDS: Ascorbic Acid 500 MG Tablet PO (05:58)
[2019-05-17] MEDS: levoFLOXacin 500 MG Tablet PO (05:58)
[2019-05-17] MEDS: metroNIDAZOLE 500 MG Tablet PO ×3 (06:01→21:43)
[2019-05-17] MEDS: Omega-3 Acid Ethyl Esters 1 GM Capsule PO (06:02)
[2019-05-17] MEDS: Gabapentin 400 MG Capsule PO ×3 (06:03→21:43)
[2019-05-17] MEDS: Polyethylene Glycol 3350 17 GM PACKET PO (06:03)
[2019-05-17] MEDS: Iron Polysaccharide Complex 150 MG CAPSULE PO (08:26)
[2019-05-17] MEDS: Mupirocin Ointment 22gm Tube 1 APPLIC OPERA.SITE (10:59)
[2019-05-17] MEDS: Pantoprazole Sodium 40 MG Tablet PO (13:18)
[2019-05-17 16:00] VITALS: BP 107/43; PULSE 76; RESP 20; TEMP 36.3; O2SAT 95
[2019-05-17] MEDS: Baclofen 10 MG Tablet PO (18:14)
[2019-05-18] MEDS: 0.9% Saline Lock 10 ML Syringe IV ×2 (02:04→17:21)
[2019-05-18] MEDS: Vancomycin IV 1,000 MG/200 ML BAG 200 MG IV ×3 (02:05→17:20)
[2019-05-18] MEDS: Omega-3 Acid Ethyl Esters 1 GM Capsule PO (06:01)
[2019-05-18] MEDS: Enoxaparin 40 MG/0.4 ML Syringe SC (06:01)
[2019-05-18] MEDS: Levothyroxine 25 MCG TABLET PO (06:01)
[2019-05-18] MEDS: Gabapentin 400 MG Capsule PO ×3 (06:01→21:34)
[2019-05-18] MEDS: Acetaminophen 500 MG Tablet 1000 MG PO ×4 (06:01→23:32)
[2019-05-18] MEDS: metroNIDAZOLE 500 MG Tablet PO ×3 (06:01→21:34)
[2019-05-18] MEDS: Docusate Sodium 100 MG Capsule PO ×2 (06:01→17:15)
[2019-05-18] MEDS: Ascorbic Acid 500 MG Tablet PO (06:01)
[2019-05-18] MEDS: levoFLOXacin 500 MG Tablet PO (06:02)
[2019-05-18] MEDS: Iron Polysaccharide Complex 150 MG CAPSULE PO (08:07)
[2019-05-18] MEDS: Baclofen 10 MG Tablet PO (09:36)
[2019-05-18] MEDS: Mupirocin Ointment 22gm Tube 1 APPLIC OPERA.SITE (09:49)
[2019-05-18] MEDS: Pantoprazole Sodium 40 MG Tablet PO (13:15)
[2019-05-18 16:00] VITALS: BP 108/64; PULSE 46; RESP 18; TEMP 36.8; O2SAT 93
[2019-05-19] MEDS: Vancomycin IV 1,000 MG/200 ML BAG 200 MG IV ×3 (01:53→18:02)
[2019-05-19] MEDS: 0.9% Saline Lock 10 ML Syringe IV ×2 (01:53→18:01)
[2019-05-19 05:41] LABS: Absolute Lymphocyte Count 1.58 X10^3/uL (0.83-4.51); Basophil# 0.05 X10^3/uL; Basophil% 0.7 % (0-1); Eosinophils% 4.3 % (0-5); Hematocrit 35.1 % (37-47); Hemoglobin 10.3 g/dL (12.0-15.0); Lymphocyte # 1.58 X10^3/ul (4.0); Lymphocyte % 22.5 % (19-41); Mean Corp Hgb Conc 29.3 g/dL (32-36); Mean Corpuscular Hgb 24.3 pg (27.0-32.0); Mean Corpuscular Volume 82.8 fL (81-99); Mean Platelet Vol. 9.2 fl (6.2-12.0); Monocyte# 1.11 X10^3/uL; Monocyte% 15.8 % (0-10); NRBC Flagged by Analyzer 0 % (0-5); Neutrophil # 3.98 X10^3/uL (2.7-7.7); Neutrophil % 56.6 % (47-70); Platelet Count 342 K/mm3 (150-450); RBC Distribution Width CV 14.8 % (11.6-14.6); RBC Distribution Width SD 44.2 fl (35.1-43.9); Red Blood Count 4.24 M/mm3 (4.2-5.4)
[2019-05-19] MEDS: Enoxaparin 40 MG/0.4 ML Syringe SC (05:56)
[2019-05-19] MEDS: Omega-3 Acid Ethyl Esters 1 GM Capsule PO (05:57)
[2019-05-19] MEDS: Ascorbic Acid 500 MG Tablet PO (05:57)
[2019-05-19] MEDS: levoFLOXacin 500 MG Tablet PO (05:57)
[2019-05-19] MEDS: metroNIDAZOLE 500 MG Tablet PO ×3 (05:57→22:02)
[2019-05-19] MEDS: Gabapentin 400 MG Capsule PO ×3 (05:57→22:02)
[2019-05-19] MEDS: Levothyroxine 25 MCG TABLET PO (05:57)
[2019-05-19] MEDS: Docusate Sodium 100 MG Capsule PO ×2 (05:57→17:56)
[2019-05-19] MEDS: Acetaminophen 500 MG Tablet 1000 MG PO ×4 (06:02→23:53)
[2019-05-19 06:09] LABS: ALB/GLOB Ratio 0.9 RATIO (0.9-2.4); AST(SGOT) 12 U/L (15-37); Alanine Aminotransfer ALT/SGPT 15 U/L (13-56); Albumin, Serum 3.1 g/dL (3.2-5.0); Alkaline Phosphatase 70 U/L (45-117); Anion Gap 5 (5-15); BUN 25 mg/dL (7-18); BUN/Creat Ratio 44.9 RATIO (10-20); CRP 6.53 mg/L (0.0-3.0); Calcium,Total 8.7 mg/dL (8.5-10.1); Chloride 109 mmol/L (98-107); Creatinine, Serum 0.56 mg/dL (0.55-1.02); EST Glomerular Filtration Rate 115 mL/min (>60); Est Glom Filt Rate - Afr Amer 139 mL/min (>60); Estimated Creatinine Clearance 47.14 ml/min; Globulin 3.6 g/dL (2.2-4.2); Glucose 84 mg/dL (74-106); Protein, Total 6.7 g/dL (6.4-8.2); Sodium Level 141 mmol/L (136-145)
[2019-05-19 06:51] LABS: Erythrocyte Sedimentation Rate 30 mm/hr (0-30)
[2019-05-19] MEDS: Iron Polysaccharide Complex 150 MG CAPSULE PO (09:33)
[2019-05-19] MEDS: Mupirocin Ointment 22gm Tube 1 APPLIC OPERA.SITE (09:34)
[2019-05-19 10:09] LABS: Vancomycin, Trough Level 19.6 ug/mL (5.0-15.0)
--- NOTE | 2019-05-19 12:15 | NURSING ---
wound photo: sacrum/lower back
[2019-05-19] MEDS: Pantoprazole Sodium 40 MG Tablet PO (13:19)
[2019-05-19 15:49] VITALS: BP 111/54; PULSE 79; RESP 18; TEMP 36.8; O2SAT 96
--- NOTE | 2019-05-19 16:28 | PCM.RX.CS ---
Consult Pharmacy has been consulted to manage selected antiobiotic: Vancomycin Type of Consult: Follow-up Suspected Infection: Osteomyelitis Prior Doses of Antibiotics Received/Current Regimen: Vancomycin 1000mg IV q8h at 02,,18. Labs: Sodium 141 mmol/L (136-145) 05/19/19 05:10 Potassium 4.0 mmol/L (3.5-5.1) 05/19/19 05:10 Chloride 109 mmol/L (98-107) H 05/19/19 05:10 Carbon Dioxide 27.0 mmol/L (21.0-32.0) 05/19/19 05:10 Anion Gap 5 (5-15) 05/19/19 05:10 BUN 25 mg/dL (7-18) H 05/19/19 05:10 Creatinine 0.56 mg/dL (0.55-1.02) 05/19/19 05:10 Est GFR (MDRD) Af Amer 139 mL/min (>60) 05/19/19 05:10 Est GFR (MDRD) Non-Af 115 mL/min (>60) 05/19/19 05:10 BUN/Creatinine Ratio 44.9 RATIO (10-20) H 05/19/19 05:10 Glucose 84 mg/dL (74-106) 05/19/19 05:10 Vancomycin Trough 19.6 ug/mL (5.0-15.0) H 05/19/19 09:15 Random Vancomycin 12.0 ug/mL (0.0-15.0) 05/05/19 14:30 Weight used for dosin kg Goal Trough: 15-20 mcg/mL Pharmacy Plan for Drug Dosing: Pt has been receiving Vancomycin 1000mg IV q8h for several days. Her trough level came back at 19.6. Goal trough of 15-20. Recommend continuing pt at current dose and checking trough level again in 4 days (05/22/20) since she is trending upward on the current dose. Her last 3 troughs have been 17.5, 19.0, and 19.6. Pharmacy Service will continue to monitor and adjust dosing as required. Follow-Up Labs: Trough Vancomycin - 05/23/19 at 0930
[2019-05-20] MEDS: Vancomycin IV 1,000 MG/200 ML BAG 200 MG IV ×3 (01:45→17:44)
[2019-05-20] MEDS: Omega-3 Acid Ethyl Esters 1 GM Capsule PO (06:36)
[2019-05-20] MEDS: Acetaminophen 500 MG Tablet 1000 MG PO ×4 (06:36→23:54)
[2019-05-20] MEDS: Ascorbic Acid 500 MG Tablet PO (06:37)
[2019-05-20] MEDS: Levothyroxine 25 MCG TABLET PO (06:37)
[2019-05-20] MEDS: levoFLOXacin 500 MG Tablet PO (06:37)
[2019-05-20] MEDS: Gabapentin 400 MG Capsule PO ×3 (06:37→22:22)
[2019-05-20] MEDS: Polyethylene Glycol 3350 17 GM PACKET PO (06:38)
[2019-05-20] MEDS: metroNIDAZOLE 500 MG Tablet PO ×3 (06:39→22:22)
[2019-05-20] MEDS: Docusate Sodium 100 MG Capsule PO ×2 (06:39→17:48)
[2019-05-20] MEDS: Enoxaparin 40 MG/0.4 ML Syringe SC (06:40)
[2019-05-20] MEDS: Iron Polysaccharide Complex 150 MG CAPSULE PO (08:31)
[2019-05-20] MEDS: Baclofen 10 MG Tablet PO (10:33)
[2019-05-20] MEDS: 0.9% Saline Lock 10 ML Syringe IV ×3 (10:38→19:14)
[2019-05-20] MEDS: Mupirocin Ointment 22gm Tube 1 APPLIC OPERA.SITE (14:05)
[2019-05-20] MEDS: Pantoprazole Sodium 40 MG Tablet PO (14:49)
[2019-05-20 15:55] VITALS: BP 110/68; PULSE 85; RESP 16; TEMP 36.7; O2SAT 95
[2019-05-21] MEDS: Vancomycin IV 1,000 MG/200 ML BAG 200 MG IV ×3 (01:45→18:05)
[2019-05-21] MEDS: 0.9% Saline Lock 10 ML Syringe IV ×3 (01:45→18:05)
[2019-05-21] MEDS: Levothyroxine 25 MCG TABLET PO (06:37)
[2019-05-21] MEDS: metroNIDAZOLE 500 MG Tablet PO ×3 (06:37→21:54)
[2019-05-21] MEDS: Ascorbic Acid 500 MG Tablet PO (06:37)
[2019-05-21] MEDS: Acetaminophen 500 MG Tablet 1000 MG PO ×4 (06:37→23:55)
[2019-05-21] MEDS: levoFLOXacin 500 MG Tablet PO (06:38)
[2019-05-21] MEDS: Enoxaparin 40 MG/0.4 ML Syringe SC (06:38)
[2019-05-21] MEDS: Docusate Sodium 100 MG Capsule PO ×2 (06:38→18:02)
[2019-05-21] MEDS: Gabapentin 400 MG Capsule PO ×3 (06:38→21:54)
[2019-05-21] MEDS: Omega-3 Acid Ethyl Esters 1 GM Capsule PO (06:38)
[2019-05-21] MEDS: Iron Polysaccharide Complex 150 MG CAPSULE PO (08:17)
[2019-05-21] MEDS: Mupirocin Ointment 22gm Tube 1 APPLIC OPERA.SITE (11:15)
[2019-05-21] MEDS: Baclofen 10 MG Tablet PO ×2 (14:14→21:33)
[2019-05-21] MEDS: Pantoprazole Sodium 40 MG Tablet PO (14:15)
[2019-05-21 15:23] VITALS: BP 95/52; PULSE 87; RESP 17; TEMP 36.6; O2SAT 94
[2019-05-21] MEDS: Polyethylene Glycol 3350 17 GM PACKET PO (21:55)
[2019-05-22] MEDS: Vancomycin IV 1,000 MG/200 ML BAG 200 MG IV ×3 (01:45→17:30)
[2019-05-22] MEDS: 0.9% Saline Lock 10 ML Syringe IV ×3 (01:46→17:36)
[2019-05-22] MEDS: metroNIDAZOLE 500 MG Tablet PO ×3 (06:38→21:02)
[2019-05-22] MEDS: Acetaminophen 500 MG Tablet 1000 MG PO ×4 (06:38→23:56)
[2019-05-22] MEDS: Ascorbic Acid 500 MG Tablet PO (06:38)
[2019-05-22] MEDS: Omega-3 Acid Ethyl Esters 1 GM Capsule PO (06:38)
[2019-05-22] MEDS: Gabapentin 400 MG Capsule PO ×3 (06:38→21:02)
[2019-05-22] MEDS: Enoxaparin 40 MG/0.4 ML Syringe SC (06:40)
[2019-05-22] MEDS: levoFLOXacin 500 MG Tablet PO (06:40)
[2019-05-22] MEDS: Docusate Sodium 100 MG Capsule PO ×2 (06:40→17:29)
[2019-05-22] MEDS: Levothyroxine 25 MCG TABLET PO (06:40)
[2019-05-22] MEDS: Iron Polysaccharide Complex 150 MG CAPSULE PO (08:04)
[2019-05-22] MEDS: Pantoprazole Sodium 40 MG Tablet PO (12:42)
--- NOTE | 2019-05-22 14:46 | NURSING ---
resting in bed, looking at her tablet. denies needs
[2019-05-22] MEDS: Mupirocin Ointment 22gm Tube 1 APPLIC OPERA.SITE (15:21)
[2019-05-22 16:00] VITALS: BP 109/66; PULSE 78; RESP 16; TEMP 36.2; O2SAT 96
[2019-05-22] MEDS: Baclofen 10 MG Tablet PO (17:29)
[2019-05-22] MEDS: Polyethylene Glycol 3350 17 GM PACKET PO (17:40)
[2019-05-23] MEDS: Vancomycin IV 1,000 MG/200 ML BAG 200 MG IV ×3 (01:55→17:28)
[2019-05-23] MEDS: 0.9% Saline Lock 10 ML Syringe IV ×4 (01:55→17:28)
[2019-05-23] MEDS: metroNIDAZOLE 500 MG Tablet PO ×3 (06:13→22:04)
[2019-05-23] MEDS: Docusate Sodium 100 MG Capsule PO ×2 (06:13→17:32)
[2019-05-23] MEDS: levoFLOXacin 500 MG Tablet PO (06:13)
[2019-05-23] MEDS: Omega-3 Acid Ethyl Esters 1 GM Capsule PO (06:13)
[2019-05-23] MEDS: Levothyroxine 25 MCG TABLET PO (06:13)
[2019-05-23] MEDS: Gabapentin 400 MG Capsule PO ×3 (06:13→22:04)
[2019-05-23] MEDS: Ascorbic Acid 500 MG Tablet PO (06:13)
[2019-05-23] MEDS: Enoxaparin 40 MG/0.4 ML Syringe SC (06:14)
[2019-05-23] MEDS: Acetaminophen 500 MG Tablet 1000 MG PO ×2 (06:51→12:52)
[2019-05-23] MEDS: Iron Polysaccharide Complex 150 MG CAPSULE PO (08:17)
--- NOTE | 2019-05-23 11:37 | PCM.RX.CS ---
Consult Pharmacy has been consulted to manage selected antiobiotic: Vancomycin Type of Consult: Follow-up Suspected Infection: Osteomyelitis Prior Doses of Antibiotics Received/Current Regimen: Patient has been on vancomycin 1gm iv q8h. Labs: Sodium 141 mmol/L (136-145) 05/19/19 05:10 Potassium 4.0 mmol/L (3.5-5.1) 05/19/19 05:10 Chloride 109 mmol/L (98-107) H 05/19/19 05:10 Carbon Dioxide 27.0 mmol/L (21.0-32.0) 05/19/19 05:10 Anion Gap 5 (5-15) 05/19/19 05:10 BUN 25 mg/dL (7-18) H 05/19/19 05:10 Creatinine 0.56 mg/dL (0.55-1.02) 05/19/19 05:10 Est GFR (MDRD) Af Amer 139 mL/min (>60) 05/19/19 05:10 Est GFR (MDRD) Non-Af 115 mL/min (>60) 05/19/19 05:10 BUN/Creatinine Ratio 44.9 RATIO (10-20) H 05/19/19 05:10 Glucose 84 mg/dL (74-106) 05/19/19 05:10 Vancomycin Trough 20.0 ug/mL (5.0-15.0) H 05/23/19 09:20 Random Vancomycin 12.0 ug/mL (0.0-15.0) 05/05/19 14:30 Weight used for dosin kg Estimated Creatinine Clearance: ~47ml/min Goal Trough: 15-20 mcg/mL Pharmacy Plan for Drug Dosing: Vancomycin trough level today 20.0 (goal range 15-20 mcg/ml). Renal function unchanged. Will continue dosing of 1gm iv q8h and get a repeat trough level on 05.27.19. Pharmacy Service will continue to monitor and adjust dosing as required. Follow-Up Labs: Trough Vancomycin - 05.27.19 @0930 before 1000 dose
[2019-05-23] MEDS: Mupirocin Ointment 22gm Tube 1 APPLIC OPERA.SITE (11:40)
--- NOTE | 2019-05-23 11:44 | PN.SURG_ITS ---
Subjective: Patient resting in bed on her left side. - Physical Exam Vitals/I&O's: Vital Signs Temp Pulse Resp BP Pulse Ox 97.1 F L 78 16 109/66 96 05/22/19 16:00 05/22/19 16:00 05/22/19 16:00 05/22/19 16:00 05/22/19 16:00 Oxygen Delivery Method Room Air Weight: 216 lb 4 oz Body Mass Index (BMI) 36.8 Intake and Output for Last 24 Hours 05/21/19 05/22/19 05/23/19 23:59 23:59 23:59 Intake Total 1686.67 / 1686.67 2518.50 / 2518.50 204.5 / 204.5 Output Total 3575 / 3575 3400 / 3400 1000 / 1000 Balance -1888.33 / -1888.33 -881.50 / -881.50 -795.5 / -795.5 General: Alert, Oriented x3, Cooperative HEENT: Atraumatic Oral: Moist Mucosa Lungs: Normal air movement Cardiovascular: Regular rate Abdomen: Soft, Obese Extremities: Capillary Refill Less than 3 Seconds Skin: Ulcer/ Wound - Flap well approximated. Small amount of compromised at sacrum. Removed fat necrosis and area looks beefy red. Musculoskeletal: No Tenderness to Palpation of Joints or Extremities Neurological: Neuro grossly intact Psych/Mental Status: Normal Affect, Appropriate Laboratory Results 05/23/19 09:20: Vancomycin Trough 20.0 H Current Medications Acetaminophen (Tylenol) 1,000 mg PO Q6 [facility] Last Admin: 05/23/19 06:51 Dose: 1,000 mg Documented by: Ascorbic Acid (Vitamin C) 500 mg PO DAILY [facility] Last Admin: 05/23/19 06:13 Dose: 500 mg Documented by: Baclofen (Lioresal) 10 mg PO TID PRN PRN Reason: back pain Last Admin: 05/22/19 17:29 Dose: 10 mg Documented by: Calcium Carbonate (Tums) 1,000 mg PO Q4H PRN PRN PRN Reason: INDIGESTION [facility] Last Admin: 05/23/19 08:17 Dose: 50 mg Documented by: Docusate Sodium (Colace) 100 mg PO BID [facility] Last Admin: 05/23/19 06:13 Dose: 100 mg Documented by: Enoxaparin Sodium (Lovenox) 40 mg SC DAILY@0600 [facility] Last Admin: 05/23/19 06:14 Dose: 40 mg Documented by: Ergocalciferol (Vitamin D) 50,000 unit PO QMONTH [facility] Last Admin: 05/03/19 08:36 Dose: 50,000 unit Documented by: Gabapentin (Neurontin) 400 mg PO TID [facility] Last Admin: 05/23/19 06:13 Dose: 400 mg Documented by: Heparin Sodium (Beef Lung) () 50 units IV UD PRN PRN Reason: PICC Line Heparin Flush Last Admin: 05/04/19 12:31 Dose: 50 units Documented by: Sodium Chloride () 250 mls @ 15 mls/hr IV .[id number] PRN PRN Reason: Saline Flush Last Infusion: 05/23/19 10:45 Dose: 200 mls/hr Documented by: Vancomycin IV Pharmacy to Dose (1 ea/ Sodium Chloride) 500 mls @ 250 mls/hr IV X1 PRN; Protocol PRN Reason: Rx to Dose Vancomycin HCl (Vancomycin) 1,000 mg in 200 mls @ 200 mls/hr IV Q8H [facility] Last Admin: 05/23/19 10:42 Dose: 200 mls/hr Documented by: Lactobacillus Acidophilus (Acidophilus) 1 tablet PO DAILY [facility] Last Admin: 05/23/19 06:17 Dose: 1 tablet Documented by: Levofloxacin (Levaquin Tablet) 500 mg PO DAILY@0600 [facility] Last Admin: 05/23/19 06:13 Dose: 500 mg Documented by: Levothyroxine Sodium (Synthroid) 25 mcg PO DAILY [facility] Last Admin: 05/23/19 06:13 Dose: 25 mcg Documented by: Linaclotide (Linzess) 145 mcg PO DAILY PRN PRN Reason: Constipation Metronidazole (Flagyl) 500 mg PO TID [facility] Last Admin: 05/23/19 06:13 Dose: 500 mg Documented by: Mupirocin (Bactroban) 1 applic OPERA.SITE DAILY@0800 [facility]; Protocol Last Admin: 05/23/19 11:40 Dose: 1 applicatio Documented by: Nutritional Formula (Teofilo - [place] Flavor) 1 packet PO BIDCM [facility] Last Admin: 05/23/19 08:17 Dose: 1 packet Documented by: Nystatin (Mycostatin Powder) 1 applic TOPICAL 0600,2200 PRN; Protocol PRN Reason: redness Rgqsc-3-Hiqh Ethyl Esters (Lovaza) 1 gm PO DAILY [facility] Last Admin: 05/23/19 06:13 Dose: 1 gm Documented by: Ondansetron HCl (Zofran) 4 mg IV Q6H PRN PRN PRN Reason: NAUSEA Oxycodone HCl (Oxyir) 10 mg PO Q4H PRN PRN PRN Reason: Pain Score 6-10/10 Last Admin: 05/09/19 21:17 Dose: 10 mg Documented by: Pantoprazole Sodium (Protonix) 40 mg PO 1400 [facility] Last Admin: 05/22/19 12:42 Dose: 40 mg Documented by: Polyethylene Glycol (Miralax) 17 gm PO BID [facility] Last Admin: 05/23/19 06:17 Dose: Not Given Documented by: Polysaccharide Iron Complex (Ferrex 150) 150 mg PO DAILYCM [facility] Last Admin: 05/23/19 08:17 Dose: 150 mg Documented by: Potassium Chloride (K-Dur) 40 meq PO DAILY [facility] Last Admin: 05/23/19 06:13 Dose: 40 meq Documented by: Promethazine HCl (Phenergan Tablet) 25 mg PO Q4H PRN PRN PRN Reason: NAUSEA/VOMITING Sodium Chloride () 10 - 40 ml IV UD PRN PRN Reason: Open End PICC Flush Last Admin: 05/23/19 10:42 Dose: 30 ml Documented by: Sodium Chloride (0.9% Nacl (Sterile) Posiflush) 10 - 40 ml IV UD PRN PRN Reason: Port access or dressing change Medical Necessity - Tobacco Use Smoking Status: Former smoker Tobacco Use: Non-smoker Assessment/Plan All Active Problems (Last Updated 04/18/19 @ 13:58 by PAPI Jaramillo) Back pain (Acute) Heart murmur (Acute) Debility (Acute) Atrial fibrillation with RVR (Resolved) Clostridium difficile colitis (Resolved) Clostridium difficile infection (Resolved) Hypertension (Resolved) Rhabdomyolysis (Resolved) 1. Sacral pressure sore, Stage IV. 2. Osteomyelitis. 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 5. s/p excision sacral pressure sore, Stage IV, with partial ostectomy for osteomyelitis and reconstruction with lumbar bilobed fasciocutaneous transposition flap (255 cm2) and placement of AmnioFill placental connective tissue powder, 1000 mg. 6. Anemia of chronic disease, acute on chronic. Incisions are dry and intact. Flap is soft and healing satisfactory. There is approx 2 x 2 x 0.5 cm area of compromise at the sacrum. Debrided some of the fat necrosis. Base of ulcer is beefy pink with small amount of bleeding. Obtained a wound cultured. Removed remaining sutures without difficulty. Continue Aquacel silver dressing changes daily and PRN to that area to help keep it dry. If there is increased drainage, will consider doing daily 1/4 strength Dakin's dressing changes. Continue antibiotic ointment to the rest of the suture line where it is dry. She is getting out of bed for BM's only. Grewal catheter is still in place. Continue IV Vancomycin for osteomyelitis and MRSA. Pharmacy is dosing. She is also on Flagyl and Levaquin and tolerating these well.
[2019-05-23] MEDS: Pantoprazole Sodium 40 MG Tablet PO (12:52)
[2019-05-23 16:00] VITALS: BP 109/49; PULSE 83; RESP 16; TEMP 36.8; O2SAT 95
[2019-05-23] MEDS: Baclofen 10 MG Tablet PO (17:36)
[2019-05-24] MEDS: Acetaminophen 500 MG Tablet 1000 MG PO ×4 (01:33→19:35)
[2019-05-24] MEDS: Vancomycin IV 1,000 MG/200 ML BAG 200 MG IV ×3 (01:34→17:46)
[2019-05-24] MEDS: 0.9% Saline Lock 10 ML Syringe IV ×3 (01:34→17:46)
[2019-05-24] MEDS: Enoxaparin 40 MG/0.4 ML Syringe SC (06:04)
[2019-05-24] MEDS: Omega-3 Acid Ethyl Esters 1 GM Capsule PO (06:04)
[2019-05-24] MEDS: Levothyroxine 25 MCG TABLET PO (06:04)
[2019-05-24] MEDS: Polyethylene Glycol 3350 17 GM PACKET PO (06:04)
[2019-05-24] MEDS: Docusate Sodium 100 MG Capsule PO ×2 (06:04→17:37)
[2019-05-24] MEDS: metroNIDAZOLE 500 MG Tablet PO ×3 (06:05→22:58)
[2019-05-24] MEDS: Ascorbic Acid 500 MG Tablet PO (06:05)
[2019-05-24] MEDS: levoFLOXacin 500 MG Tablet PO (06:05)
[2019-05-24] MEDS: Gabapentin 400 MG Capsule PO ×3 (06:05→22:56)
[2019-05-24] MEDS: Mupirocin Ointment 22gm Tube 1 APPLIC OPERA.SITE (09:03)
[2019-05-24] MEDS: Iron Polysaccharide Complex 150 MG CAPSULE PO (09:04)
[2019-05-24] MEDS: Pantoprazole Sodium 40 MG Tablet PO (14:29)
[2019-05-24 15:59] VITALS: BP 118/61; PULSE 93; RESP 16; TEMP 36.8; O2SAT 96
[2019-05-24] MEDS: Baclofen 10 MG Tablet PO (17:45)
[2019-05-25] MEDS: Vancomycin IV 1,000 MG/200 ML BAG 200 MG IV ×3 (01:34→17:49)
[2019-05-25] MEDS: Acetaminophen 500 MG Tablet 1000 MG PO ×4 (01:34→21:15)
[2019-05-25] MEDS: 0.9% Saline Lock 10 ML Syringe IV ×2 (01:34→10:02)
[2019-05-25] MEDS: Ascorbic Acid 500 MG Tablet PO (06:07)
[2019-05-25] MEDS: Docusate Sodium 100 MG Capsule PO ×2 (06:07→17:38)
[2019-05-25] MEDS: Omega-3 Acid Ethyl Esters 1 GM Capsule PO (06:07)
[2019-05-25] MEDS: levoFLOXacin 500 MG Tablet PO (06:07)
[2019-05-25] MEDS: metroNIDAZOLE 500 MG Tablet PO (06:07)
[2019-05-25] MEDS: Gabapentin 400 MG Capsule PO ×3 (06:07→21:15)
[2019-05-25] MEDS: Enoxaparin 40 MG/0.4 ML Syringe SC (06:08)
[2019-05-25] MEDS: Levothyroxine 25 MCG TABLET PO (06:09)
[2019-05-25] MEDS: Mupirocin Ointment 22gm Tube 1 APPLIC OPERA.SITE (08:15)
[2019-05-25] MEDS: Baclofen 10 MG Tablet PO (08:15)
[2019-05-25] MEDS: Iron Polysaccharide Complex 150 MG CAPSULE PO (08:15)
[2019-05-25 10:00] VITALS: PULSE 74; RESP 14; O2SAT 94
--- NOTE | 2019-05-25 11:33 | PCM.PN.BLA ---
Progress Note Patient had a wound culture done on 05/23/19 because of a small area of wound breakdown in the sacral area. Wound care was started with Silver dressing changes daily. The wound culture was positive for E. coli. It is resistant to Levaquin that she had been on in addition to Vancomycin for MRSA and for osteomyelitis. Will stop the Levaquin and also stop the Flagyl. Will start Augmentin twice a day. STROKE Vital Signs/Narrative: Vital Signs Pulse Resp Pulse Ox 05/25/19 10:00 74 14 94
--- NOTE | 2019-05-25 12:19 | NURSING ---
assisted pt to turn on rt side, bed repositioned so pt can view TV, call light in reach. Updated pt on new orders per Slaby.
[2019-05-25] MEDS: Pantoprazole Sodium 40 MG Tablet PO (13:34)
[2019-05-25 16:00] VITALS: BP 104/62; PULSE 85; RESP 17; TEMP 36.4; O2SAT 95
[2019-05-25] MEDS: Amox/Clavulanate 875 MG Tablet PO (17:35)
[2019-05-25] MEDS: Polyethylene Glycol 3350 17 GM PACKET PO (17:37)
--- NOTE | 2019-05-25 19:49 | NURSING ---
pt requesting tylenol time be adjusted
[2019-05-26] MEDS: Vancomycin IV 1,000 MG/200 ML BAG 200 MG IV ×3 (01:45→17:18)
[2019-05-26] MEDS: Acetaminophen 500 MG Tablet 1000 MG PO ×4 (01:45→21:16)
[2019-05-26] MEDS: 0.9% Saline Lock 10 ML Syringe IV ×2 (01:45→17:18)
[2019-05-26] MEDS: Ascorbic Acid 500 MG Tablet PO (06:12)
[2019-05-26] MEDS: Omega-3 Acid Ethyl Esters 1 GM Capsule PO (06:12)
[2019-05-26] MEDS: Levothyroxine 25 MCG TABLET PO (06:12)
[2019-05-26] MEDS: Docusate Sodium 100 MG Capsule PO ×2 (06:12→17:15)
[2019-05-26] MEDS: Gabapentin 400 MG Capsule PO ×3 (06:12→21:16)
[2019-05-26] MEDS: Enoxaparin 40 MG/0.4 ML Syringe SC (06:14)
[2019-05-26] MEDS: Iron Polysaccharide Complex 150 MG CAPSULE PO (08:22)
[2019-05-26] MEDS: Amox/Clavulanate 875 MG Tablet PO ×2 (09:16→17:15)
[2019-05-26] MEDS: Mupirocin Ointment 22gm Tube 1 APPLIC OPERA.SITE (11:32)
--- NOTE | 2019-05-26 11:43 | NURSING ---
wound photo: sacrum
[2019-05-26] MEDS: Pantoprazole Sodium 40 MG Tablet PO (14:44)
[2019-05-26 16:00] VITALS: BP 105/65; PULSE 82; RESP 17; TEMP 36.4; O2SAT 94
[2019-05-26] MEDS: Baclofen 10 MG Tablet PO (17:14)
[2019-05-27] MEDS: Vancomycin IV 1,000 MG/200 ML BAG 200 MG IV ×3 (02:00→17:10)
[2019-05-27] MEDS: Acetaminophen 500 MG Tablet 1000 MG PO ×4 (02:45→21:20)
[2019-05-27] MEDS: 0.9% Saline Lock 10 ML Syringe IV ×3 (03:29→17:05)
[2019-05-27] MEDS: Ascorbic Acid 500 MG Tablet PO (06:11)
[2019-05-27] MEDS: Levothyroxine 25 MCG TABLET PO (06:11)
[2019-05-27] MEDS: Docusate Sodium 100 MG Capsule PO ×2 (06:11→17:05)
[2019-05-27] MEDS: Omega-3 Acid Ethyl Esters 1 GM Capsule PO (06:11)
[2019-05-27] MEDS: Enoxaparin 40 MG/0.4 ML Syringe SC (06:11)
[2019-05-27] MEDS: Gabapentin 400 MG Capsule PO ×3 (06:11→21:20)
[2019-05-27] MEDS: Iron Polysaccharide Complex 150 MG CAPSULE PO (08:08)
[2019-05-27] MEDS: Amox/Clavulanate 875 MG Tablet PO ×2 (08:08→17:05)
[2019-05-27 10:25] LABS: Creatinine, Serum 0.63 mg/dL (0.55-1.02); EST Glomerular Filtration Rate 100 mL/min (>60); Est Glom Filt Rate - Afr Amer 121 mL/min (>60); Estimated Creatinine Clearance 47.14 ml/min
[2019-05-27 10:33] LABS: Vancomycin, Trough Level 19.6 ug/mL (5.0-15.0)
--- NOTE | 2019-05-27 11:07 | PCM.RX.CS ---
Consult Pharmacy has been consulted to manage selected antiobiotic: Vancomycin Type of Consult: Follow-up Suspected Infection: Osteomyelitis Prior Doses of Antibiotics Received/Current Regimen: VANCOMYCIN 1000MG 05/26 919 AND 1718, 05/27 @ 0200 AND 0915 Labs: Sodium 141 mmol/L (136-145) 05/19/19 05:10 Potassium 4.0 mmol/L (3.5-5.1) 05/19/19 05:10 Chloride 109 mmol/L (98-107) H 05/19/19 05:10 Carbon Dioxide 27.0 mmol/L (21.0-32.0) 05/19/19 05:10 Anion Gap 5 (5-15) 05/19/19 05:10 BUN 25 mg/dL (7-18) H 05/19/19 05:10 Creatinine 0.63 mg/dL (0.55-1.02) 05/27/19 09:29 Est GFR (MDRD) Af Amer 121 mL/min (>60) 05/27/19 09:29 Est GFR (MDRD) Non-Af 100 mL/min (>60) 05/27/19 09:29 BUN/Creatinine Ratio 44.9 RATIO (10-20) H 05/19/19 05:10 Glucose 84 mg/dL (74-106) 05/19/19 05:10 Vancomycin Trough 19.6 ug/mL (5.0-15.0) H 05/27/19 09:29 Random Vancomycin 12.0 ug/mL (0.0-15.0) 05/05/19 14:30 Microbiology: Microbiology 05/23/19 11:30 Wound - Sacral Gram Stain - Final 05/23/19 11:30 Wound - Sacral Wound Culture - Final Escherichia coli Weight used for dosin.2 kg Estimated Creatinine Clearance: 97.7 Goal Trough: 15-20 mcg/mL Pharmacy Plan for Drug Dosin. Spoke with nurse, Arvind, who confirmed the infusion was not started until after trough was drawn. 2. 7.5 hr trough was 19.6 mg/dL which is within therapeutic range of 15-20 mg/dL 3. Continue current dosing and redraw trough in 4 days Pharmacy Service will continue to monitor and adjust dosing as required. Labs to be done on [date and time ordered]: 05/31/19 @ 4564
[2019-05-27] MEDS: Pantoprazole Sodium 40 MG Tablet PO (13:20)
[2019-05-27] MEDS: Mupirocin Ointment 22gm Tube 1 APPLIC OPERA.SITE (13:20)
[2019-05-27 15:31] VITALS: BP 107/71; PULSE 91; RESP 18; TEMP 36.6; O2SAT 94
[2019-05-28] MEDS: Vancomycin IV 1,000 MG/200 ML BAG 200 MG IV ×3 (01:55→17:10)
[2019-05-28] MEDS: 0.9% Saline Lock 10 ML Syringe IV ×3 (01:56→17:10)
[2019-05-28] MEDS: Acetaminophen 500 MG Tablet 1000 MG PO ×4 (03:05→21:44)
[2019-05-28] MEDS: Omega-3 Acid Ethyl Esters 1 GM Capsule PO (05:29)
[2019-05-28] MEDS: Enoxaparin 40 MG/0.4 ML Syringe SC (05:29)
[2019-05-28] MEDS: Levothyroxine 25 MCG TABLET PO (05:29)
[2019-05-28] MEDS: Ascorbic Acid 500 MG Tablet PO (05:29)
[2019-05-28] MEDS: Gabapentin 400 MG Capsule PO ×3 (05:29→20:32)
[2019-05-28] MEDS: Amox/Clavulanate 875 MG Tablet PO ×2 (08:37→17:09)
[2019-05-28] MEDS: Iron Polysaccharide Complex 150 MG CAPSULE PO (08:37)
[2019-05-28] MEDS: Mupirocin Ointment 22gm Tube 1 APPLIC OPERA.SITE (09:26)
[2019-05-28] MEDS: Baclofen 10 MG Tablet PO (10:50)
--- NOTE | 2019-05-28 12:47 | PCM.TCUNOT ---
Subjective: Resident seen in room. She is in bed. 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 She is allowed to get out of bed to go to bathroom, unfortunately, her skin broke down at sacrum, both wound nurse, Dr. Hansen following. Vitals/I&O's: Vital Signs Temp Pulse Resp BP Pulse Ox 97.8 F 91 18 107/71 94 05/27/19 15:31 05/27/19 15:31 05/27/19 15:31 05/27/19 15:31 05/27/19 15:31 Oxygen Delivery Method Room Air Weight: 97.267 kg Body Mass Index (BMI) 36.8 Intake and Output for Last 24 Hours 05/26/19 05/27/19 05/28/19 23:59 23:59 23:59 Intake Total 1738.33 / 1738.33 1647.08 / 1647.08 796.66 / 796.66 Output Total 3450 / 3450 4250 / 4250 1400 / 1400 Balance -1711.67 / -1711.67 -2602.92 / -2602.92 -603.34 / -603.34 Microbiology Past 72 Hours 05/23/19 11:30 Wound - Sacral Gram Stain - Final 05/23/19 11:30 Wound - Sacral Wound Culture - Final Escherichia coli Past Medical History Past Medical History (Chronic Problems): Chronic Problems (Last Updated 04/18/19 @ 13:58 by PAPI Jaramillo) Pressure ulcer of sacral region, stage 4 (Chronic) Sacral osteomyelitis (Chronic) Anxiety (Chronic) Anemia, chronic disease (Chronic) Body mass index (bmi) 36.0-36.9, adult (Chronic) Aortic stenosis (Chronic) Hypertension (Chronic) Osteomyelitis (Chronic) Atrial fibrillation (Chronic) Back pain (Chronic) Methicillin resistant Staph aureus culture positive (Chronic) MRSA (methicillin resistant Staphylococcus aureus) infection (Chronic) Osteomyelitis of pelvis (Chronic) Constipation (Chronic) Hypergranulation (Chronic) Acute osteomyelitis of sacrum (Chronic) Surgical wound present (Chronic) Secondary pulmonary arterial hypertension (Chronic) Non-rheumatic tricuspid valve insufficiency (Chronic) Preop cardiovascular exam (Chronic) Abnormal electrocardiogram (Chronic) Essential (primary) hypertension (Chronic) Colovaginal fistula (Chronic) Non-healing surgical wound (Chronic) Pressure ulcer of right heel, stage 3 (Chronic) Pressure ulcer of left heel, stage 3 (Chronic) Morbid obesity with BMI of 40.0-44.9, adult (Chronic) GERD (gastroesophageal reflux disease) (Chronic) Depression (Chronic) Hypothyroidism (Chronic) Pressure ulcer of sacral region, stage 4 (Chronic) Failure to thrive (Chronic) Neuropathy (Chronic) Medical History: Medical History (Last Updated 04/18/19 @ 13:58 by PAPI Jaramillo) Aortic stenosis (Chronic) I35.0 Hypertension (Chronic) I10 Osteomyelitis (Chronic) M86.9 Atrial fibrillation (Chronic) I48.91 Secondary pulmonary arterial hypertension (Chronic) I27.21 Non-rheumatic tricuspid valve insufficiency (Chronic) I36.1 Essential (primary) hypertension (Chronic) I10 Morbid obesity with BMI of 40.0-44.9, adult (Chronic) E66.01, Z68.41 GERD (gastroesophageal reflux disease) (Chronic) K21.9 Depression (Chronic) F32.9 Hypothyroidism (Chronic) E03.9 Abnormal Pap smear of cervix R87.619 Anemia D64.9 GERD (gastroesophageal reflux disease) K21.9 Sacral wound S31.000A Thyroid disorder E07.9 anixety and depression Hypertension I10 no longer on medication d/t weight loss Allergies bee venom protein (honey bee) Allergy (Verified 04/25/19 09:26) Angioedema metaxalone [From Skelaxin] Allergy (Verified 04/25/19 09:26) Swelling Home Medications: Ambulatory Orders Medication Instructions Recorded Levothyroxine [Synthroid] 25 mcg PO DAILY 03/02/17 cholecalciferol (vitamin D3) 50,000 unit PO QMONTH 08/02/17 50,000 unit capsule Ascorbic Acid 500 mg PO DAILY 08/21/17 Potassium Chloride [K-Dur] 40 meq PO DAILY 12/26/17 Omeprazole 40 mg PO 1400 04/11/18 omega-3 fatty acids 1,000 mg 1,000 mg PO DAILY 04/19/18 capsule Linacolotide [Linzess] 145 mcg PO DAILY PRN cap 07/08/18 Gabapentin [Neurontin] 400 mg PO TID 09/02/18 Iron Polysaccharide Complex 150 mg PO DAILYCM #30 cap 09/12/18 [Ferrex 150] Acetaminophen [Tylenol] 500 mg PO Q6H 03/12/19 Lactobacillus Acidophilus/Fos 1 ea PO DAILY 03/12/19 [Acidophilus Probiotic Tablet] Magnesium Oxide [Magnesium] 500 mg PO DAILY 03/12/19 Calcium Carbonate [Tums] 1,000 mg PO Q4H PRN PRN tab 04/01/19 Diclofenac [Voltaren] 50 mg PO BIDCM 04/18/19 Baclofen [Lioresal] 10 mg PO TID PRN #90 tab 04/28/19 Docusate Sodium [Colace] 100 mg PO BID 04/28/19 Enoxaparin [Lovenox] 40 mg SUBCUT DAILY@0600 04/28/19 Mupirocin [Bactroban] 1 applic TOPICAL DAILY 04/28/19 Nutritional Supplement [Teofilo - 1 packet PO BIDCM 04/28/19 [place] FLAVOR] Ondansetron [Zofran] 4 mg IV Q6H PRN PRN vial 04/28/19 Oxycodone [Oxyir] 10 mg PO Q4H PRN PRN 7 Days #40 tab 04/28/19 Polyethylene Glycol 3350 [Miralax] 17 gm PO BID 04/28/19 Vancomycin IV 1,250 mg IV Q8H 04/28/19 levoFLOXacin tablet [Levaquin 500 mg PO DAILY@0600 04/28/19 tablet] metroNIDAZOLE [Flagyl] 500 mg PO TID 04/28/19 proMETHazine tablet [Phenergan 25 mg PO Q4H PRN PRN tab 04/28/19 tablet] Surgical History: Surgical History (Last Reviewed 04/18/19 @ 13:56 by PAPI Jaramillo) H/O dilation and curettage Z98.890 History of LAVH Z98.890, Z90.710 S/P endometrial ablation Z98.890 S/P hysterectomy Z90.710 uterine ablation History of partial colectomy Z90.49 Surgical History: dilatation and curettage, hysterectomy, - - Uterine ablation, Debridement/excision of sacral pressure ulcer X4. Colovaginal fistula surgical repair. Sacal pressure ulcer flap repair. Psychiatric History: Anxiety, Depression [employer] History: No pertinent [employer] history Lives: Alone Smoking Status: Former smoker Tobacco Use: Non-smoker Alcohol: None Drugs: None - *Family History Maternal Family History: Family History (Last Reviewed 04/18/19 @ 13:56 by PAPI Jaramillo) Father Myocardial infarction Cancer Brother Heart disease Mother COPD (chronic obstructive pulmonary disease) History Items: Unknown, - - Patient's mother at the age of 82 with a history of chronic obstructive pulmonary disease. Paternal Family History: Family History (Last Reviewed 04/18/19 @ 13:56 by PAPI Jaramillo) Father Myocardial infarction Cancer Brother Heart disease Mother COPD (chronic obstructive pulmonary disease) History Items: Unknown, - - Patient's father at age of 79 with history of lung cancer and myocardial infarction. Capacity - Capacity Assessment Tool Can the patient make a choice & communicate that choice?: Yes Can the patient understand benefits, risks and alternatives?: Yes Can the patient make a logical, rational choice?: Yes Is the choice the patient makes consistent w/ their values?: Yes Is there an impending, emergent risk to the patient?: No Does the patient have an Advance Directive?: Yes Is there a Surrogate Available?: No i.e. HCPOA: No i.e. close relative (spouse, child, parent, sibling)?: No Review of Systems Constitutional: Denies: Chills, Fever, Weight Change HEENT: Denies: Head Aches, Sinus Congestion, Sinus Drainage Cardiovascular: Denies: Chest Pain, Palpitations Respiratory: Denies: Cough, Shortness of breath at rest, Sputum production Gastrointestinal: Denies: Abdominal Pain, Nausea, Vomiting Genitourinary: Denies: Dysuria Musculoskeletal: Denies: Joint Pain, Joint Tenderness Skin: Reports: Wounds - Sacral wound.. Denies: Rash Neurological: Denies: Numbness, Tingling, Focal weakness Psychiatric: Denies: Anxiety, Depression, Homicidal Ideations, Suicidal Ideations Hematologic/ Lymphatic: Denies: Easy Bruising, Easy Bleeding - Physical Exam Vitals/I&O's: Vital Signs Temp Pulse Resp BP Pulse Ox 97.8 F 91 18 107/71 94 05/27/19 15:31 05/27/19 15:31 05/27/19 15:31 05/27/19 15:31 05/27/19 15:31 Oxygen Delivery Method Room Air Weight: 97.267 kg Body Mass Index (BMI) 36.8 Intake and Output for Last 24 Hours 05/26/19 05/27/19 05/28/19 23:59 23:59 23:59 Intake Total 1738.33 / 1738.33 1647.08 / 1647.08 796.66 / 796.66 Output Total 3450 / 3450 4250 / 4250 1400 / 1400 Balance -1711.67 / -1711.67 -2602.92 / -2602.92 -603.34 / -603.34 General: Alert, Oriented x3, Cooperative HEENT: Atraumatic, PERRLA, EOMI, Normocephalic Neck: Supple, No JVD, Negative Carotid Bruits Lungs: Clear to auscultation, Normal air movement Cardiovascular: Regular rate, No murmurs Abdomen: Bowel Sounds Present, Soft, Non Tender Extremities: No edema, Capillary Refill Less than 3 Seconds Skin: No rashes, Ulcer/ Wound - Sacrum, seeing wound nurse photos. Musculoskeletal: No Tenderness to Palpation of Joints or Extremities Neurological: Cranial nerves II-XII grossly intact Psych/Mental Status: Normal Affect, Appropriate Microbiology Past 72 Hours 05/23/19 11:30 Wound - Sacral Gram Stain - Final 05/23/19 11:30 Wound - Sacral Wound Culture - Final Escherichia coli Current Medications Acetaminophen (Tylenol) 1,000 mg PO Q6H [facility] Last Admin: 05/28/19 09:20 Dose: 1,000 mg Documented by: Amoxicillin/Clavulanate Potassium ([facility]in Tablet) [facility] Last Admin: 05/28/19 08:37 Dose: 875 mg Documented by: Baclofen (Lioresal) 10 mg PO TID PRN PRN Reason: back pain Last Admin: 05/28/19 10:50 Dose: 10 mg Documented by: Docusate Sodium (Colace) 100 mg PO BID [facility] Last Admin: 05/28/19 01:11 Dose: Not Given Documented by: Enoxaparin Sodium (Lovenox) 40 mg SC DAILY@0600 [facility] Last Admin: 05/28/19 05:29 Dose: 40 mg Documented by: Gabapentin (Neurontin) 400 mg PO TID [facility] Last Admin: 05/28/19 05:29 Dose: 400 mg Documented by: Heparin Sodium (Beef Lung) () 50 units IV UD PRN PRN Reason: PICC Line Heparin Flush Last Admin: 05/04/19 12:31 Dose: 50 units Documented by: Sodium Chloride () 250 mls @ 15 mls/hr IV .[id number] PRN PRN Reason: Saline Flush Last Infusion: 05/28/19 03:05 Dose: 0 mls/hr Documented by: Vancomycin IV Pharmacy to Dose (1 ea/ Sodium Chloride) 500 mls @ 250 mls/hr IV X1 PRN; Protocol PRN Reason: Rx to Dose Vancomycin HCl (Vancomycin) 1,000 mg in 200 mls @ 200 mls/hr IV Q8H [facility] Last Infusion: 05/28/19 10:40 Dose: Infused Documented by: Lactobacillus Acidophilus (Acidophilus) 1 tablet PO DAILY [facility] Last Admin: 05/28/19 05:29 Dose: 1 tablet Documented by: Levothyroxine Sodium (Synthroid) 25 mcg PO DAILY [facility] Last Admin: 05/28/19 05:29 Dose: 25 mcg Documented by: Mupirocin (Bactroban) 1 applic OPERA.SITE DAILY@0800 [facility]; Protocol Last Admin: 05/28/19 09:26 Dose: 1 applicatio Documented by: Nutritional Formula (Teofilo - Hill Flavor) 1 packet PO BIDCM [facility] Last Admin: 05/28/19 08:37 Dose: 1 packet Documented by: Pantoprazole Sodium (Protonix) 40 mg PO 1400 [facility] Last Admin: 05/27/19 13:20 Dose: 40 mg Documented by: Polyethylene Glycol (Miralax) 17 gm PO BID [facility] Last Admin: 05/28/19 01:11 Dose: Not Given Documented by: Polysaccharide Iron Complex (Ferrex 150) [facility] Last Admin: 05/28/19 08:37 Dose: 150 mg Documented by: Potassium Chloride (K-Dur) 40 meq PO DAILY [facility] Last Admin: 05/28/19 05:29 Dose: 40 meq Documented by: Sodium Chloride () 10 - 40 ml IV UD PRN PRN Reason: Open End PICC Flush Last Admin: 05/28/19 09:22 Dose: 20 ml Documented by: Sodium Chloride (0.9% Nacl (Sterile) Posiflush) 10 - 40 ml IV UD PRN PRN Reason: Port access or dressing change Assessment/Plan All Active Problems (Last Updated 04/18/19 @ 13:58 by PAPI Jaramillo) Back pain (Acute) Heart murmur (Acute) Debility (Acute) Atrial fibrillation with RVR (Resolved) Clostridium difficile colitis (Resolved) Clostridium difficile infection (Resolved) Hypertension (Resolved) Rhabdomyolysis (Resolved) 68 year old female with below past medical history chronic stage 4 sacral pressure, hospitalized underwent flap repair 04/25/[address] Hansen, admitted to TCU with debility, here for rehabilitation, strengthening, intravenous antibiotics, prior to discharge home alone. Debility - PT/OT. Pain - Tylenol 1000MG Q6H. Bowel - Miralax 17GM BID, Colace 100MG BID. Adult immunization - Administer Prevnar 13, Pneumovax 23, Fluzone as needed. DVT prophylaxis - Lovenox 40MG SC daily. Muscle spasm - Baclofen 10MG TID PRN. GERD - Pantoprazole 40MG daily. Neuropathic pain - Gabapentin 400MG TID. Iron deficiency anemia - Ferrex 150MG daily. GI prophylaxis - Lactobacillus 1 tablet daily. Sacral osteomyelitis - Wounc culture grew E. Coli, Vancomycin 1GM IV Q8H, Augmentin 875MG BID, stop date per Dr. Hansen. Hypothyroidism - Levothyroxine 25MCG daily. Stage 4 pressure ulcer status post flap repair - Mupirocin ointment daily. Nutrition - Teofilo 1 packet BID. Hypokalemia - K-Dur 40MEQ daily.
[2019-05-28] MEDS: Pantoprazole Sodium 40 MG Tablet PO (13:11)
[2019-05-28 16:00] VITALS: BP 118/67; PULSE 91; RESP 18; TEMP 36.1; O2SAT 93
[2019-05-29] MEDS: Vancomycin IV 1,000 MG/200 ML BAG 200 MG IV ×3 (01:50→17:48)
[2019-05-29] MEDS: Acetaminophen 500 MG Tablet 1000 MG PO ×4 (03:24→21:45)
[2019-05-29] MEDS: Baclofen 10 MG Tablet PO ×2 (03:25→11:30)
[2019-05-29] MEDS: Enoxaparin 40 MG/0.4 ML Syringe SC (05:55)
[2019-05-29] MEDS: Gabapentin 400 MG Capsule PO ×3 (05:55→21:45)
[2019-05-29] MEDS: Levothyroxine 25 MCG TABLET PO (05:55)
[2019-05-29] MEDS: Iron Polysaccharide Complex 150 MG CAPSULE PO (09:13)
[2019-05-29] MEDS: Amox/Clavulanate 875 MG Tablet PO ×2 (09:13→17:47)
[2019-05-29] MEDS: 0.9% Saline Lock 10 ML Syringe IV ×3 (09:54→17:47)
[2019-05-29] MEDS: Pantoprazole Sodium 40 MG Tablet PO (13:50)
[2019-05-29] MEDS: Mupirocin Ointment 22gm Tube 1 APPLIC OPERA.SITE (13:51)
[2019-05-29 15:43] VITALS: BP 122/65; PULSE 81; RESP 20; TEMP 36.7; O2SAT 94
[2019-05-30] MEDS: 0.9% Saline Lock 10 ML Syringe IV ×2 (01:47→17:27)
[2019-05-30] MEDS: Vancomycin IV 1,000 MG/200 ML BAG 200 MG IV ×3 (01:47→17:26)
[2019-05-30] MEDS: Acetaminophen 500 MG Tablet 1000 MG PO ×4 (03:26→21:46)
[2019-05-30] MEDS: Gabapentin 400 MG Capsule PO ×3 (05:58→21:49)
[2019-05-30] MEDS: Levothyroxine 25 MCG TABLET PO (05:58)
[2019-05-30] MEDS: Docusate Sodium 100 MG Capsule PO ×2 (05:58→17:26)
[2019-05-30] MEDS: Enoxaparin 40 MG/0.4 ML Syringe SC (06:06)
[2019-05-30] MEDS: Amox/Clavulanate 875 MG Tablet PO ×2 (08:36→17:26)
[2019-05-30] MEDS: Iron Polysaccharide Complex 150 MG CAPSULE PO (08:36)
--- NOTE | 2019-05-30 08:48 | PN.SURG_ITS ---
- Physical Exam Vitals/I&O's: Vital Signs Temp Pulse Resp BP Pulse Ox 98.1 F 81 20 H 122/65 H 94 05/29/19 15:43 05/29/19 15:43 05/29/19 15:43 05/29/19 15:43 05/29/19 15:43 Oxygen Delivery Method Room Air Weight: 214 lb 7 oz Body Mass Index (BMI) 36.8 Intake and Output for Last 24 Hours 05/28/19 05/29/19 05/30/19 23:59 23:59 23:59 Intake Total 1476.66 / 1476.66 1718.33 / 1718.33 200 / 200 Output Total 3500 / 3500 3400 / 3400 1400 / 1400 Balance -2023.34 / -2023.34 -1681.67 / -1681.67 -1200 / -1200 General: Alert, Oriented x3, Cooperative HEENT: Atraumatic Oral: Moist Mucosa Lungs: Normal air movement Cardiovascular: Regular rate Abdomen: Soft, Non Tender, Obese Extremities: No edema, Capillary Refill Less than 3 Seconds Skin: Ulcer/ Wound - sacral ulcer, looks beefy pink Musculoskeletal: No Tenderness to Palpation of Joints or Extremities Neurological: Neuro grossly intact Psych/Mental Status: Normal Affect, Appropriate Current Medications Acetaminophen (Tylenol) 1,000 mg PO Q6H [facility] Last Admin: 05/30/19 03:26 Dose: 1,000 mg Documented by: Amoxicillin/Clavulanate Potassium (Augmentin Tablet) [facility] Last Admin: 05/30/19 08:36 Dose: 875 mg Documented by: Baclofen (Lioresal) 10 mg PO TID PRN PRN Reason: back pain Last Admin: 05/29/19 11:30 Dose: 10 mg Documented by: Docusate Sodium (Colace) 100 mg PO BID [facility] Last Admin: 05/30/19 05:58 Dose: 100 mg Documented by: Enoxaparin Sodium (Lovenox) 40 mg SC DAILY@0600 [facility] Last Admin: 05/30/19 06:06 Dose: 40 mg Documented by: Gabapentin (Neurontin) 400 mg PO TID [facility] Last Admin: 05/30/19 05:58 Dose: 400 mg Documented by: Heparin Sodium (Beef Lung) () 50 units IV UD PRN PRN Reason: PICC Line Heparin Flush Last Admin: 05/04/19 12:31 Dose: 50 units Documented by: Sodium Chloride () 250 mls @ 15 mls/hr IV .[id number] PRN PRN Reason: Saline Flush Last Infusion: 05/30/19 05:52 Dose: Infused Documented by: Vancomycin IV Pharmacy to Dose (1 ea/ Sodium Chloride) 500 mls @ 250 mls/hr IV X1 PRN; Protocol PRN Reason: Rx to Dose Vancomycin HCl (Vancomycin) 1,000 mg in 200 mls @ 200 mls/hr IV Q8H [facility] Last Infusion: 05/30/19 02:50 Dose: Infused Documented by: Lactobacillus Acidophilus (Acidophilus) 1 tablet PO DAILY [facility] Last Admin: 05/30/19 05:58 Dose: 1 tablet Documented by: Levothyroxine Sodium (Synthroid) 25 mcg PO DAILY [facility] Last Admin: 05/30/19 05:58 Dose: 25 mcg Documented by: Mupirocin (Bactroban) 1 applic OPERA.SITE DAILY@0800 [facility]; Protocol Last Admin: 05/29/19 13:51 Dose: 1 applicatio Documented by: Nutritional Formula (Teofilo - [place] Flavor) 1 packet PO BIDCM [facility] Last Admin: 05/30/19 08:36 Dose: 1 packet Documented by: Pantoprazole Sodium (Protonix) 40 mg PO 1400 [facility] Last Admin: 05/29/19 13:50 Dose: 40 mg Documented by: Polyethylene Glycol (Miralax) 17 gm PO BID [facility] Last Admin: 05/30/19 05:58 Dose: Not Given Documented by: Polysaccharide Iron Complex (Ferrex 150) [facility]ILY[facility] Last Admin: 05/30/19 08:36 Dose: 150 mg Documented by: Potassium Chloride (K-Dur) 40 meq PO DAILY [facility] Last Admin: 05/30/19 05:58 Dose: 40 meq Documented by: Sodium Chloride () 10 - 40 ml IV UD PRN PRN Reason: Open End PICC Flush Last Admin: 05/30/19 01:47 Dose: 20 ml Documented by: Sodium Chloride (0.9% Nacl (Sterile) Posiflush) 10 - 40 ml IV UD PRN PRN Reason: Port access or dressing change Medical Necessity - Tobacco Use Smoking Status: Former smoker Tobacco Use: Non-smoker Assessment/Plan All Active Problems (Last Updated 04/18/19 @ 13:58 by PAIP Jaramillo) Back pain (Acute) Heart murmur (Acute) Debility (Acute) Atrial fibrillation with RVR (Resolved) Clostridium difficile colitis (Resolved) Clostridium difficile infection (Resolved) Hypertension (Resolved) Rhabdomyolysis (Resolved) 1. Sacral pressure sore, Stage IV. 2. Osteomyelitis. 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 5. s/p excision sacral pressure sore, Stage IV, with partial ostectomy for osteomyelitis and reconstruction with lumbar bilobed fasciocutaneous transposition flap (255 cm2) and placement of AmnioFill placental connective tissue powder, 1000 mg. 6. Anemia of chronic disease, acute on chronic. Incisions are dry and intact. Flap is soft and healing satisfactory. There is approx 2 x 2 x 1 cm area of compromise at the sacrum. Appearance is beefy pink. There is more depth to the ulcer compared to last week. Will continue to monitor closely. Wound culture from 05/25/19 positive for resistant E. coli. Discontinued the Levaquin and started her on Augmentin on 05/25/19. Continue Aquacel silver dressing changes daily and PRN to that area to help keep it dry. If there is increased drainage, will consider doing daily 1/4 strength Dakin's dressing changes. Continue antibiotic ointment to the rest of the suture line where it is dry. She is getting out of bed for BM's only. Grewal catheter is still in place. Continue IV Vancomycin for osteomyelitis and MRSA. Pharmacy is dosing.
[2019-05-30] MEDS: Mupirocin Ointment 22gm Tube 1 APPLIC OPERA.SITE (10:35)
--- NOTE | 2019-05-30 11:28 | PHA.CONS_ITS ---
<Lester Lugo D - Last Filed: 05/30/19 11:28> Progress Note - Pharmacy Subjective: [facility] Monthly Note Objective: Allergies bee venom protein (honey bee) Allergy (Verified 04/25/19 09:26) Angioedema metaxalone [From Skelaxin] Allergy (Verified 04/25/19 09:26) Swelling Current Medications Generic Name Dose Route Start Last Admin Trade Name Freq PRN Reason Stop Dose Admin Acetaminophen 1,000 mg 05/25/19 21:00 05/30/19 09:22 Tylenol PO 1,000 mg Q6H ELOISA Administration Amoxicillin/Clavulanate Potassium 875 mg 05/25/19 17:00 05/30/19 08:36 Augmentin Tablet PO 875 mg BIDCM ELOISA Administration Baclofen 10 mg 04/28/19 17:38 05/29/19 11:30 Lioresal PO 10 mg TID PRN Administration back pain Docusate Sodium 100 mg 04/28/19 18:00 05/30/19 05:58 Colace PO 100 mg BID ELOISA Administration Enoxaparin Sodium 40 mg 04/29/19 06:00 05/30/19 06:06 Lovenox SC 40 mg DAILY@0600 ELOISA Administration Gabapentin 400 mg 04/28/19 22:00 05/30/19 05:58 Neurontin PO 400 mg TID ELOISA Administration Heparin Sodium (Beef Lung) 50 units 04/28/19 17:07 05/04/19 12:31 IV 50 units UD PRN Administration PICC Line Heparin Flush Sodium Chloride 250 mls @ 15 mls/hr 04/28/19 21:28 05/30/19 05:52 IV Infused .[id number] PRN Infusion Saline Flush Vancomycin IV Pharmacy to Dose 500 mls @ 250 mls/hr 04/29/19 09:07 1 ea/ Sodium Chloride IV X1 PRN Rx to Dose Protocol Vancomycin HCl 1,000 mg in 200 mls @ 200 mls/hr 05/09/19 18:00 05/30/19 10:32 Vancomycin IV 200 mls/hr Q8H ELOISA Administration Lactobacillus Acidophilus 1 tablet 04/29/19 06:00 05/30/19 05:58 Acidophilus PO 1 tablet DAILY ELOISA Administration Levothyroxine Sodium 25 mcg 04/29/19 06:00 05/30/19 05:58 Synthroid PO 25 mcg DAILY ELOISA Administration Mupirocin 1 applic 05/04/19 08:00 05/30/19 10:35 Bactroban OPERA.SITE 1 applicatio DAILY@0800 ELOISA Administration Protocol Nutritional Formula 1 packet 04/29/19 08:00 05/30/19 08:36 Teofilo - [place] Flavor PO 1 packet BIDCM ELOISA Administration Pantoprazole Sodium 40 mg 04/29/19 14:00 05/29/19 13:50 Protonix PO 40 mg 1400 ELOISA Administration Polyethylene Glycol 17 gm 04/28/19 18:00 05/30/19 05:58 Miralax PO Not Given BID ELOISA Polysaccharide Iron Complex 150 mg 04/29/19 08:00 05/30/19 08:36 Ferrex 150 PO 150 mg DAILYCM ELOISA Administration Potassium Chloride 40 meq 04/29/19 06:00 05/30/19 05:58 K-Dur PO 40 meq DAILY ELOISA Administration Sodium Chloride 10 - 40 ml 04/28/19 17:07 05/30/19 01:47 IV 20 ml UD PRN Administration Open End PICC Flush Sodium Chloride 10 - 40 ml 04/28/19 17:07 0.9% Nacl (Sterile) Posiflush IV UD PRN Port access or dressing change Problem List (Last Updated 04/18/19 @ 13:58 by PAPI Jaramillo) Pressure ulcer of sacral region, stage 4 (Chronic) Sacral osteomyelitis (Chronic) Anxiety (Chronic) Anemia, chronic disease (Chronic) Body mass index (bmi) 36.0-36.9, adult (Chronic) Vital Signs Temp Pulse Resp BP Pulse Ox 98.1 F 81 20 H 122/65 H 94 05/29/19 15:43 05/29/19 15:43 05/29/19 15:43 05/29/19 15:43 05/29/19 15:43 Oxygen Delivery Method Room Air Weight: 97.267 kg Body Mass Index (BMI) 36.8 Sodium 141 mmol/L (136-145) 05/19/19 05:10 Potassium 4.0 mmol/L (3.5-5.1) 05/19/19 05:10 Chloride 109 mmol/L (98-107) H 05/19/19 05:10 Carbon Dioxide 27.0 mmol/L (21.0-32.0) 05/19/19 05:10 Anion Gap 5 (5-15) 05/19/19 05:10 BUN 25 mg/dL (7-18) H 05/19/19 05:10 Creatinine 0.63 mg/dL (0.55-1.02) 05/27/19 09:29 Est GFR (MDRD) Af Amer 121 mL/min (>60) 05/27/19 09:29 Est GFR (MDRD) Non-Af 100 mL/min (>60) 05/27/19 09:29 BUN/Creatinine Ratio 44.9 RATIO (10-20) H 05/19/19 05:10 Glucose 84 mg/dL (74-106) 05/19/19 05:10 Vancomycin Trough 19.6 ug/mL (5.0-15.0) H 05/27/19 09:29 Random Vancomycin 12.0 ug/mL (0.0-15.0) 05/05/19 14:30 Assessment/Plan: 1) Pain APAP, gabapentin, baclofen for muscle spasm. Continue to monitor daily pain scores. * 2) ID * Augmentin, vancomycin. No stop dates entered, if known please add to order. Continue to monitor s/s infection. 3) GI Pantoprazole, lactobacillus. Continue to monitor s/s GI distress. 4) Hypothyroidism Levothyroxine. Continue to monitor s/s hyper/hypothyroidism. 5) Nutrition KCL, Fe, Teofilo. Continue to monitor Fe, electrolytes. 6) DVT PPx Enoxaparin. Continue to monitor for bleeding/clot. Psychotropic Medications: None Unnecessary Medications: None Bowel Regimen: 7) Docusate, PEG. Continue to monitor for constipation/diarrhea. Date of Note:: 05/30/19 - Provider Comments Provider responsibility: Provider responsible to enter orders to implement recommendations <Chema Sanchez Chi - Last Filed: 05/30/19 13:20> Progress Note - Pharmacy Subjective: [] Objective: Allergies bee venom protein (honey bee) Allergy (Verified 04/25/19 09:26) Angioedema metaxalone [From Skelaxin] Allergy (Verified 04/25/19 09:26) Swelling Current Medications Generic Name Dose Route Start Last Admin Trade Name Freq PRN Reason Stop Dose Admin Acetaminophen 1,000 mg 05/25/19 21:00 05/30/19 09:22 Tylenol PO 1,000 mg Q6H ELOISA Administration Amoxicillin/Clavulanate Potassium 875 mg 05/25/19 17:00 05/30/19 08:36 Augmentin Tablet PO 875 mg BIDCM ELOISA Administration Baclofen 10 mg 04/28/19 17:38 05/29/19 11:30 Lioresal PO 10 mg TID PRN Administration back pain Docusate Sodium 100 mg 04/28/19 18:00 05/30/19 05:58 Colace PO 100 mg BID ELOISA Administration Enoxaparin Sodium 40 mg 04/29/19 06:00 05/30/19 06:06 Lovenox SC 40 mg DAILY@0600 ELOISA Administration Gabapentin 400 mg 04/28/19 22:00 05/30/19 05:58 Neurontin PO 400 mg TID ELOISA Administration Heparin Sodium (Beef Lung) 50 units 04/28/19 17:07 05/04/19 12:31 IV 50 units UD PRN Administration PICC Line Heparin Flush Sodium Chloride 250 mls @ 15 mls/hr 04/28/19 21:28 05/30/19 05:52 IV Infused .[id number] PRN Infusion Saline Flush Vancomycin IV Pharmacy to Dose 500 mls @ 250 mls/hr 04/29/19 09:07 1 ea/ Sodium Chloride IV X1 PRN Rx to Dose Protocol Vancomycin HCl 1,000 mg in 200 mls @ 200 mls/hr 05/09/19 18:00 05/30/19 11:59 Vancomycin IV Infused Q8H ELOISA Infusion Lactobacillus Acidophilus 1 tablet 04/29/19 06:00 05/30/19 05:58 Acidophilus PO 1 tablet DAILY ELOISA Administration Levothyroxine Sodium 25 mcg 04/29/19 06:00 05/30/19 05:58 Synthroid PO 25 mcg DAILY ELOISA Administration Mupirocin 1 applic 05/04/19 08:00 05/30/19 10:35 Bactroban OPERA.SITE 1 applicatio DAILY@0800 ELOISA Administration Protocol Nutritional Formula 1 packet 04/29/19 08:00 05/30/19 08:36 Teofilo - [place] Flavor PO 1 packet BIDCM ELOISA Administration Pantoprazole Sodium 40 mg 04/29/19 14:00 05/29/19 13:50 Protonix PO 40 mg 1400 ELOISA Administration Polyethylene Glycol 17 gm 04/28/19 18:00 05/30/19 05:58 Miralax PO Not Given BID ELOISA Polysaccharide Iron Complex 150 mg 04/29/19 08:00 05/30/19 08:36 Ferrex 150 PO 150 mg DAILYCM ELOISA Administration Potassium Chloride 40 meq 04/29/19 06:00 05/30/19 05:58 K-Dur PO 40 meq DAILY ELOISA Administration Sodium Chloride 10 - 40 ml 04/28/19 17:07 05/30/19 01:47 IV 20 ml UD PRN Administration Open End PICC Flush Sodium Chloride 10 - 40 ml 04/28/19 17:07 0.9% Nacl (Sterile) Posiflush IV UD PRN Port access or dressing change Problem List (Last Updated 04/18/19 @ 13:58 by PAPI Jaramillo) Pressure ulcer of sacral region, stage 4 (Chronic) Sacral osteomyelitis (Chronic) Anxiety (Chronic) Anemia, chronic disease (Chronic) Body mass index (bmi) 36.0-36.9, adult (Chronic) Vital Signs Temp Pulse Resp BP Pulse Ox 98.1 F 81 20 H 122/65 H 94 05/29/19 15:43 05/29/19 15:43 05/29/19 15:43 05/29/19 15:43 05/29/19 15:43 Oxygen Delivery Method Room Air Weight: 97.267 kg Body Mass Index (BMI) 36.8 Sodium 141 mmol/L (136-145) 05/19/19 05:10 Potassium 4.0 mmol/L (3.5-5.1) 05/19/19 05:10 Chloride 109 mmol/L (98-107) H 05/19/19 05:10 Carbon Dioxide 27.0 mmol/L (21.0-32.0) 05/19/19 05:10 Anion Gap 5 (5-15) 05/19/19 05:10 BUN 25 mg/dL (7-18) H 05/19/19 05:10 Creatinine 0.63 mg/dL (0.55-1.02) 05/27/19 09:29 Est GFR (MDRD) Af Amer 121 mL/min (>60) 05/27/19 09:29 Est GFR (MDRD) Non-Af 100 mL/min (>60) 05/27/19 09:29 BUN/Creatinine Ratio 44.9 RATIO (10-20) H 05/19/19 05:10 Glucose 84 mg/dL (74-106) 05/19/19 05:10 Vancomycin Trough 19.6 ug/mL (5.0-15.0) H 05/27/19 09:29 Random Vancomycin 12.0 ug/mL (0.0-15.0) 05/05/19 14:30 Assessment/Plan: Psychotropic Medications: Unnecessary Medications: Bowel Regimen: - Provider Comments Provider responsibility: Provider responsible to enter orders to implement recommendations Provider Comments to Recommendations by Pharmacy: Agree
[2019-05-30] MEDS: Alteplase 2 MG/2 ML Vial IV (14:13)
[2019-05-30] MEDS: Pantoprazole Sodium 40 MG Tablet PO (14:42)
--- NOTE | 2019-05-30 15:23 | NURSING ---
Good blood return noted after Cathflo administered.
[2019-05-30 15:33] VITALS: BP 114/64; PULSE 75; RESP 18; TEMP 36.8; O2SAT 93
[2019-05-31] MEDS: 0.9% Saline Lock 10 ML Syringe IV ×2 (01:59→17:30)
[2019-05-31] MEDS: Baclofen 10 MG Tablet PO (01:59)
[2019-05-31] MEDS: Vancomycin IV 1,000 MG/200 ML BAG 200 MG IV ×3 (02:01→17:30)
[2019-05-31] MEDS: Acetaminophen 500 MG Tablet 1000 MG PO ×4 (03:28→21:48)
[2019-05-31] MEDS: Gabapentin 400 MG Capsule PO ×3 (06:33→21:42)
[2019-05-31] MEDS: Docusate Sodium 100 MG Capsule PO (06:33)
[2019-05-31] MEDS: Enoxaparin 40 MG/0.4 ML Syringe SC (06:34)
[2019-05-31] MEDS: Levothyroxine 25 MCG TABLET PO (06:35)
[2019-05-31] MEDS: Amox/Clavulanate 875 MG Tablet PO ×2 (07:59→17:33)
[2019-05-31] MEDS: Iron Polysaccharide Complex 150 MG CAPSULE PO (07:59)
[2019-05-31] MEDS: Mupirocin Ointment 22gm Tube 1 APPLIC OPERA.SITE (09:37)
[2019-05-31 10:07] LABS: Vancomycin, Trough Level 19.8 ug/mL (5.0-15.0)
--- NOTE | 2019-05-31 14:14 | PCM.RX.CS ---
Consult Pharmacy has been consulted to manage selected antiobiotic: Vancomycin Type of Consult: Follow-up Suspected Infection: Osteomyelitis Prior Doses of Antibiotics Received/Current Regimen: VANCOMYCIN 1G IV Q8H: 05/30 @1726, 05/31@ 0201, 0938 Labs: Sodium 141 mmol/L (136-145) 05/19/19 05:10 Potassium 4.0 mmol/L (3.5-5.1) 05/19/19 05:10 Chloride 109 mmol/L (98-107) H 05/19/19 05:10 Carbon Dioxide 27.0 mmol/L (21.0-32.0) 05/19/19 05:10 Anion Gap 5 (5-15) 05/19/19 05:10 BUN 25 mg/dL (7-18) H 05/19/19 05:10 Creatinine 0.63 mg/dL (0.55-1.02) 05/27/19 09:29 Est GFR (MDRD) Af Amer 121 mL/min (>60) 05/27/19 09:29 Est GFR (MDRD) Non-Af 100 mL/min (>60) 05/27/19 09:29 BUN/Creatinine Ratio 44.9 RATIO (10-20) H 05/19/19 05:10 Glucose 84 mg/dL (74-106) 05/19/19 05:10 Vancomycin Trough 19.8 ug/mL (5.0-15.0) H 05/31/19 09:28 Random Vancomycin 12.0 ug/mL (0.0-15.0) 05/05/19 14:30 Microbiology: Microbiology 05/23/19 11:30 Wound - Sacral Gram Stain - Final 05/23/19 11:30 Wound - Sacral Wound Culture - Final Escherichia coli Goal Trough: 15-20 mcg/mL Pharmacy Plan for Drug Dosing: The patient had a trough drawn which resulted in a value of 19.8 (~7.5hr level). This is within the patient's goal trough range of 15-20. Will continue current dosing and continue to monitor. Trough to be redrawn in 4 days to assess dosing at that time. PLAN/RECOMMENDATIONS 1. Continue vancomycin 1g IV Q8h 2. Trough 06/04/19 @0930 3. Pharmacy Service will continue to monitor and adjust dosing as required.
[2019-05-31] MEDS: Pantoprazole Sodium 40 MG Tablet PO (14:48)
[2019-05-31 16:00] VITALS: BP 124/60; PULSE 91; RESP 16; TEMP 36.1; O2SAT 94
[2019-06-01] MEDS: Baclofen 10 MG Tablet PO ×3 (00:56→18:53)
[2019-06-01] MEDS: Vancomycin IV 1,000 MG/200 ML BAG 200 MG IV ×3 (01:41→17:49)
[2019-06-01] MEDS: 0.9% Saline Lock 10 ML Syringe IV ×3 (01:49→17:49)
--- NOTE | 2019-06-01 01:52 | NURSING ---
Patient complaining of excess pain that Tylenol and prn Baclofen is not taking care of. Patient has no other prn pain pill on AUG. Offered to call Dr. Sanchez to get something else for pain. Patient refused at this time stating Don't call Dr. Sanchez about this tonight. This nurse told patient that if she changes her mind to let this nurse know and she will call Dr. Sanchez.
[2019-06-01] MEDS: Acetaminophen 500 MG Tablet 1000 MG PO ×4 (03:31→21:49)
[2019-06-01] MEDS: Docusate Sodium 100 MG Capsule PO ×2 (06:30→17:48)
[2019-06-01] MEDS: Enoxaparin 40 MG/0.4 ML Syringe SC (06:31)
[2019-06-01] MEDS: Levothyroxine 25 MCG TABLET PO (06:31)
[2019-06-01] MEDS: Gabapentin 400 MG Capsule PO ×3 (06:31→21:49)
[2019-06-01] MEDS: Amox/Clavulanate 875 MG Tablet PO ×2 (07:42→17:48)
[2019-06-01] MEDS: Iron Polysaccharide Complex 150 MG CAPSULE PO (07:42)
[2019-06-01] MEDS: Mupirocin Ointment 22gm Tube 1 APPLIC OPERA.SITE (11:25)
[2019-06-01] MEDS: Pantoprazole Sodium 40 MG Tablet PO (14:22)
[2019-06-02] MEDS: Vancomycin IV 1,000 MG/200 ML BAG 200 MG IV ×3 (01:49→17:53)
[2019-06-02] MEDS: 0.9% Saline Lock 10 ML Syringe IV ×3 (01:53→17:56)
[2019-06-02] MEDS: Enoxaparin 40 MG/0.4 ML Syringe SC (03:51)
[2019-06-02] MEDS: Acetaminophen 500 MG Tablet 1000 MG PO ×4 (03:51→21:50)
[2019-06-02] MEDS: Levothyroxine 25 MCG TABLET PO (03:51)
[2019-06-02] MEDS: Gabapentin 400 MG Capsule PO ×3 (03:51→21:50)
[2019-06-02] MEDS: Docusate Sodium 100 MG Capsule PO ×2 (03:52→17:53)
[2019-06-02] MEDS: Polyethylene Glycol 3350 17 GM PACKET PO ×2 (03:53→17:53)
[2019-06-02] MEDS: Iron Polysaccharide Complex 150 MG CAPSULE PO (08:43)
[2019-06-02] MEDS: Amox/Clavulanate 875 MG Tablet PO ×2 (08:43→17:52)
--- NOTE | 2019-06-02 11:49 | NURSING ---
wound photo: sacrum/lower back
[2019-06-02] MEDS: Pantoprazole Sodium 40 MG Tablet PO (15:00)
[2019-06-02 16:00] VITALS: BP 120/71; PULSE 81; RESP 16; TEMP 36.3; O2SAT 93
[2019-06-03] MEDS: Baclofen 10 MG Tablet PO ×3 (00:40→21:22)
[2019-06-03] MEDS: 0.9% Saline Lock 10 ML Syringe IV ×3 (01:25→17:01)
[2019-06-03] MEDS: Vancomycin IV 1,000 MG/200 ML BAG 200 MG IV ×3 (01:25→17:09)
[2019-06-03] MEDS: Acetaminophen 500 MG Tablet 1000 MG PO ×4 (03:52→21:51)
[2019-06-03] MEDS: Docusate Sodium 100 MG Capsule PO ×2 (03:54→17:01)
[2019-06-03] MEDS: Gabapentin 400 MG Capsule PO ×3 (03:54→21:22)
[2019-06-03] MEDS: Levothyroxine 25 MCG TABLET PO (03:54)
[2019-06-03] MEDS: Enoxaparin 40 MG/0.4 ML Syringe SC (03:55)
[2019-06-03] MEDS: Iron Polysaccharide Complex 150 MG CAPSULE PO (08:04)
[2019-06-03] MEDS: Amox/Clavulanate 875 MG Tablet PO ×2 (08:04→17:01)
[2019-06-03] MEDS: Methylcellulose 2 GM Bottle PO (09:19)
[2019-06-03] MEDS: Pantoprazole Sodium 40 MG Tablet PO (12:37)
[2019-06-03] MEDS: Mupirocin Ointment 22gm Tube 1 APPLIC OPERA.SITE (15:47)
[2019-06-03 15:49] VITALS: BP 116/58; PULSE 80; RESP 17; TEMP 36.6; O2SAT 94
--- NOTE | 2019-06-03 17:31 | NURSING ---
R C/O CONSTIPATION, REQUESTING MAG CITRATE. N.O. RECEIVED FROM DR. SCHMIDT.
[2019-06-03] MEDS: Magnesium Citrate 300 ML 150 ML PO (21:18)
[2019-06-04] MEDS: 0.9% Saline Lock 10 ML Syringe IV ×2 (01:45→17:12)
[2019-06-04] MEDS: Vancomycin IV 1,000 MG/200 ML BAG 200 MG IV ×3 (01:48→17:12)
[2019-06-04] MEDS: Acetaminophen 500 MG Tablet 1000 MG PO ×4 (03:53→21:52)
[2019-06-04] MEDS: Gabapentin 400 MG Capsule PO ×3 (03:53→21:52)
[2019-06-04] MEDS: Levothyroxine 25 MCG TABLET PO (03:53)
[2019-06-04] MEDS: Docusate Sodium 100 MG Capsule PO ×2 (03:53→17:16)
[2019-06-04] MEDS: Enoxaparin 40 MG/0.4 ML Syringe SC (03:54)
--- NOTE | 2019-06-04 09:00 | NURSING ---
Pt did not have any results from mag citrate. Dr. Sanchez aware, and new order for 300ml mag citrate. Will continue to monitor.
[2019-06-04] MEDS: Amox/Clavulanate 875 MG Tablet PO ×2 (09:26→17:11)
[2019-06-04] MEDS: Iron Polysaccharide Complex 150 MG CAPSULE PO (09:26)
[2019-06-04 10:08] LABS: Vancomycin, Trough Level 18.4 ug/mL (5.0-15.0)
[2019-06-04] MEDS: Mupirocin Ointment 22gm Tube 1 APPLIC OPERA.SITE (10:29)
--- NOTE | 2019-06-04 10:59 | NURSING ---
Asked by Ilana in pharmacy to put in Q7day BMPs because of Vanc infusions
--- NOTE | 2019-06-04 12:02 | PCM.RX.CS ---
Consult Pharmacy has been consulted to manage selected antiobiotic: Vancomycin Type of Consult: Follow-up Suspected Infection: Osteomyelitis Prior Doses of Antibiotics Received/Current Regimen: VANCOMYCIN 1000MG IV Q8H: 06/04/19 @0148, 06/04/19 @1020 Labs: Sodium 141 mmol/L (136-145) 05/19/19 05:10 Potassium 4.0 mmol/L (3.5-5.1) 05/19/19 05:10 Chloride 109 mmol/L (98-107) H 05/19/19 05:10 Carbon Dioxide 27.0 mmol/L (21.0-32.0) 05/19/19 05:10 Anion Gap 5 (5-15) 05/19/19 05:10 BUN 25 mg/dL (7-18) H 05/19/19 05:10 Creatinine 0.63 mg/dL (0.55-1.02) 05/27/19 09:29 Est GFR (MDRD) Af Amer 121 mL/min (>60) 05/27/19 09:29 Est GFR (MDRD) Non-Af 100 mL/min (>60) 05/27/19 09:29 BUN/Creatinine Ratio 44.9 RATIO (10-20) H 05/19/19 05:10 Glucose 84 mg/dL (74-106) 05/19/19 05:10 Vancomycin Trough 18.4 ug/mL (5.0-15.0) H 06/04/19 09:30 Random Vancomycin 12.0 ug/mL (0.0-15.0) 05/05/19 14:30 Microbiology: Microbiology 05/23/19 11:30 Wound - Sacral Gram Stain - Final 05/23/19 11:30 Wound - Sacral Wound Culture - Final Escherichia coli Goal Trough: 15-20 mcg/mL Pharmacy Plan for Drug Dosing: The patient had a trough drawn which resulted in a value of 18.4 (~7.5hrs from last administered dose). This is within the patient's therapeutic goal of 15-20. Since the patient has had several troughs within goal range in a row, will plan on drawing another trough in 1 week. It was also noted that the patient has not had a BMP completed in 1 week. Spoke with the floor nurse who entered a series BMP to be done weekly starting 06/05/19 to evaluate renal function. Will continue current dose and check a trough in 1 week or sooner if clinically necessary. Additionally, the patient has been on vancomycin since 04/25/19, no stop date on order. Pending clinical status, a stop date on the antibiotic is highly encouraged. Will follow-up with surgery/ primary care next week if stop date still not established to see if it would be clinically appropriate at that time. PLAN/RECOMMENDATIONS 1. Continue Vancomycin 1000mg IV Q8hrs 2. Trough scheduled 06/11/19 @0930 3. BMP series ordered weekly starting 06/05/19 4. Pharmacy Service will continue to monitor and adjust dosing as required.
[2019-06-04] MEDS: Pantoprazole Sodium 40 MG Tablet PO (13:18)
[2019-06-04 16:00] VITALS: BP 114/64; PULSE 62; RESP 18; TEMP 36.2; O2SAT 96
[2019-06-04] MEDS: Baclofen 10 MG Tablet PO (18:31)
[2019-06-05] MEDS: 0.9% Saline Lock 10 ML Syringe IV ×3 (01:44→17:31)
[2019-06-05] MEDS: Vancomycin IV 1,000 MG/200 ML BAG 200 MG IV ×3 (01:44→17:31)
[2019-06-05] MEDS: Acetaminophen 500 MG Tablet 1000 MG PO ×4 (03:54→21:53)
[2019-06-05] MEDS: Enoxaparin 40 MG/0.4 ML Syringe SC (03:55)
[2019-06-05] MEDS: Levothyroxine 25 MCG TABLET PO (03:55)
[2019-06-05] MEDS: Gabapentin 400 MG Capsule PO ×3 (03:55→21:53)
[2019-06-05] MEDS: Docusate Sodium 100 MG Capsule PO ×2 (03:55→17:35)
[2019-06-05 06:14] LABS: Anion Gap 5 (5-15); BUN 19 mg/dL (7-18); BUN/Creat Ratio 33.3 RATIO (10-20); Calcium,Total 8.9 mg/dL (8.5-10.1); Chloride 108 mmol/L (98-107); Creatinine, Serum 0.57 mg/dL (0.55-1.02); EST Glomerular Filtration Rate 112 mL/min (>60); Est Glom Filt Rate - Afr Amer 135 mL/min (>60); Estimated Creatinine Clearance 47.14 ml/min; Glucose 82 mg/dL (74-106); Potassium 4.3 mmol/L (3.5-5.1); Sodium Level 141 mmol/L (136-145)
[2019-06-05] MEDS: Amox/Clavulanate 875 MG Tablet PO ×2 (08:45→17:35)
[2019-06-05] MEDS: Iron Polysaccharide Complex 150 MG CAPSULE PO (08:45)
[2019-06-05] MEDS: Baclofen 10 MG Tablet PO (11:45)
[2019-06-05] MEDS: Pantoprazole Sodium 40 MG Tablet PO (14:33)
[2019-06-05] MEDS: Mupirocin Ointment 22gm Tube 1 APPLIC OPERA.SITE (14:34)
[2019-06-05 15:34] VITALS: BP 112/60; PULSE 87; RESP 19; TEMP 36.5; O2SAT 92
[2019-06-06] MEDS: Baclofen 10 MG Tablet PO (00:38)
[2019-06-06] MEDS: 0.9% Saline Lock 10 ML Syringe IV ×4 (02:35→22:01)
[2019-06-06] MEDS: Vancomycin IV 1,000 MG/200 ML BAG 200 MG IV ×3 (02:35→17:36)
[2019-06-06] MEDS: Gabapentin 400 MG Capsule PO ×3 (03:53→22:00)
[2019-06-06] MEDS: Enoxaparin 40 MG/0.4 ML Syringe SC (03:53)
[2019-06-06] MEDS: Levothyroxine 25 MCG TABLET PO (03:53)
[2019-06-06] MEDS: Acetaminophen 500 MG Tablet 1000 MG PO ×4 (03:55→22:00)
[2019-06-06] MEDS: Amox/Clavulanate 875 MG Tablet PO ×2 (08:20→17:32)
[2019-06-06] MEDS: Iron Polysaccharide Complex 150 MG CAPSULE PO (08:20)
--- NOTE | 2019-06-06 09:03 | PCM.PN.SRG ---
Subjective: Resting in bed. Denies complaints at this time. - Physical Exam Vitals/I&O's: Vital Signs Temp Pulse Resp BP Pulse Ox 97.7 F L 87 19 H 112/60 92 06/05/19 15:34 06/05/19 15:34 06/05/19 15:34 06/05/19 15:34 06/05/19 15:34 Oxygen Delivery Method Room Air Weight: 215 lb 3 oz Body Mass Index (BMI) 36.8 Intake and Output for Last 24 Hours 06/04/19 06/05/19 06/06/19 23:59 23:59 23:59 Intake Total 2830.75 / 2830.75 1893.33 / 1893.33 200 / 200 Output Total 3400 / 3400 2550 / 2550 2400 / 2400 Balance -569.25 / -569.25 -656.67 / -656.67 -2200 / -2200 General: Alert, Oriented x3, Cooperative HEENT: Atraumatic Oral: Moist Mucosa Lungs: Normal air movement Cardiovascular: Regular rate Abdomen: Bowel Sounds Present, Soft, Non Tender Extremities: Capillary Refill Less than 3 Seconds Skin: Ulcer/ Wound - Sacral ulcer beefy pink Musculoskeletal: No Tenderness to Palpation of Joints or Extremities Neurological: Neuro grossly intact Psych/Mental Status: Normal Affect, Appropriate Current Medications Acetaminophen (Tylenol) 1,000 mg PO Q6H [facility] Last Admin: 06/06/19 03:55 Dose: 1,000 mg Documented by: Amoxicillin/Clavulanate Potassium ([facility]in [facility]) [facility] Last Admin: 06/06/19 08:20 Dose: 875 mg Documented by: Baclofen (Lioresal) 10 mg PO TID PRN PRN Reason: back pain Last Admin: 06/06/19 00:38 Dose: 10 mg Documented by: Calcium Carbonate (Tums) 500 mg PO Q4H PRN PRN PRN Reason: INDIGESTION Docusate Sodium (Colace) 100 mg PO BID [facility] Last Admin: 06/06/19 03:54 Dose: Not Given Documented by: Enoxaparin Sodium (Lovenox) 40 mg SC DAILY@0600 [facility] Last Admin: 06/06/19 03:53 Dose: 40 mg Documented by: Gabapentin (Neurontin) 400 mg PO TID [facility] Last Admin: 06/06/19 03:53 Dose: 400 mg Documented by: Heparin Sodium (Beef Lung) () 50 units IV UD PRN PRN Reason: PICC Line Heparin Flush Last Admin: 05/04/19 12:31 Dose: 50 units Documented by: Sodium Chloride () 250 mls @ 15 mls/hr IV .[id number] PRN PRN Reason: Saline Flush Last Infusion: 06/06/19 03:59 Dose: Infused Documented by: Vancomycin IV Pharmacy to Dose (1 ea/ Sodium Chloride) 500 mls @ 250 mls/hr IV X1 PRN; Protocol PRN Reason: Rx to Dose Vancomycin HCl (Vancomycin) 1,000 mg in 200 mls @ 200 mls/hr IV Q8H [facility] Stop: 06/06/19 18:00 Last Infusion: 06/06/19 03:45 Dose: Infused Documented by: Lactobacillus Acidophilus (Acidophilus) 1 tablet PO DAILY [facility] Last Admin: 06/06/19 03:53 Dose: 1 tablet Documented by: Levothyroxine Sodium (Synthroid) 25 mcg PO DAILY [facility] Last Admin: 06/06/19 03:53 Dose: 25 mcg Documented by: Methylcellulose (Citrucel) 2 gm PO BID PRN PRN Reason: Constipation Mupirocin (Bactroban) 1 applic OPERA.SITE DAILY@0800 [facility]; Protocol Last Admin: 06/05/19 14:34 Dose: 1 applicatio Documented by: Nutritional Formula (Teofilo - [place] Flavor) [facility] Last Admin: 06/06/19 08:20 Dose: 1 packet Documented by: Pantoprazole Sodium (Protonix) 40 mg PO 1400 [facility] Last Admin: 06/05/19 14:33 Dose: 40 mg Documented by: Polyethylene Glycol (Miralax) 17 gm PO BID [facility] Last Admin: 06/06/19 03:53 Dose: Not Given Documented by: Polysaccharide Iron Complex (Ferrex 150) 150 [facility] Last Admin: 06/06/19 08:20 Dose: 150 mg Documented by: Potassium Chloride (K-Dur) 40 meq PO DAILY [facility] Last Admin: 06/06/19 03:52 Dose: 40 meq Documented by: Sodium Chloride () 10 - 40 ml IV UD PRN PRN Reason: Open End PICC Flush Last Admin: 06/06/19 02:35 Dose: 20 ml Documented by: Sodium Chloride (0.9% Nacl (Sterile) Posiflush) 10 - 40 ml IV UD PRN PRN Reason: Port access or dressing change Medical Necessity - Tobacco Use Smoking Status: Former smoker Tobacco Use: Non-smoker Assessment/Plan All Active Problems (Last Updated 04/18/19 @ 13:58 by PAPI Jaramillo) Back pain (Acute) Heart murmur (Acute) Debility (Acute) Atrial fibrillation with RVR (Resolved) Clostridium difficile colitis (Resolved) Clostridium difficile infection (Resolved) Hypertension (Resolved) Rhabdomyolysis (Resolved) 1. Sacral pressure sore, Stage IV. 2. Osteomyelitis. 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 5. s/p excision sacral pressure sore, Stage IV, with partial ostectomy for osteomyelitis and reconstruction with lumbar bilobed fasciocutaneous transposition flap (255 cm2) and placement of AmnioFill placental connective tissue powder, 1000 mg. 6. Anemia of chronic disease, acute on chronic. Incisions are dry and intact. Flap is soft and healing satisfactory. There is approx 2 x 2 x 1 cm area of compromise at the sacrum. Appearance is beefy pink. Will continue to monitor closely. Wound culture from 05/25/19 positive for resistant E. coli. Continue Augmentin on 05/25/19. Continue Aquacel silver dressing changes daily and PRN to that area to help keep it dry. If there is increased drainage, will consider doing daily 1/4 strength Dakin's dressing changes. Continue antibiotic ointment to the rest of the suture line where it is dry. Today will start getting out of bed for meals. She may be in the chair for 30 minutes. She still may get out of bed for BMs and may now shower with assistance until she is stable on her feet. Grewal catheter is still in place. Today is her last dose of IV Vancomycin for osteomyelitis and MRSA.
[2019-06-06] MEDS: Mupirocin Ointment 22gm Tube 1 APPLIC OPERA.SITE (10:09)
[2019-06-06] MEDS: Pantoprazole Sodium 40 MG Tablet PO (13:05)
[2019-06-06 16:00] VITALS: BP 116/65; PULSE 89; RESP 16; TEMP 36.5; O2SAT 95
[2019-06-06] MEDS: Docusate Sodium 100 MG Capsule PO (17:32)
[2019-06-06 20:23] VITALS: PULSE 75; O2SAT 93
[2019-06-07] MEDS: Baclofen 10 MG Tablet PO (01:05)
[2019-06-07] MEDS: Acetaminophen 500 MG Tablet 1000 MG PO ×4 (03:57→22:01)
[2019-06-07] MEDS: Enoxaparin 40 MG/0.4 ML Syringe SC (04:00)
[2019-06-07] MEDS: Levothyroxine 25 MCG TABLET PO (04:00)
[2019-06-07] MEDS: Gabapentin 400 MG Capsule PO ×3 (04:00→20:45)
[2019-06-07] MEDS: Docusate Sodium 100 MG Capsule PO ×2 (04:00→17:40)
[2019-06-07] MEDS: Amox/Clavulanate 875 MG Tablet PO ×2 (08:42→17:40)
[2019-06-07] MEDS: Iron Polysaccharide Complex 150 MG CAPSULE PO (08:42)
[2019-06-07] MEDS: Mupirocin Ointment 22gm Tube 1 APPLIC OPERA.SITE (10:01)
[2019-06-07] MEDS: Pantoprazole Sodium 40 MG Tablet PO (13:47)
[2019-06-07 15:51] VITALS: BP 106/58; PULSE 92; RESP 17; TEMP 36.9; O2SAT 97
[2019-06-08] MEDS: Baclofen 10 MG Tablet PO (01:09)
[2019-06-08] MEDS: Acetaminophen 500 MG Tablet 1000 MG PO ×4 (04:02→22:02)
[2019-06-08] MEDS: Docusate Sodium 100 MG Capsule PO ×2 (04:03→17:51)
[2019-06-08] MEDS: Levothyroxine 25 MCG TABLET PO (04:03)
[2019-06-08] MEDS: Enoxaparin 40 MG/0.4 ML Syringe SC (04:03)
[2019-06-08] MEDS: Gabapentin 400 MG Capsule PO ×3 (04:04→22:03)
[2019-06-08] MEDS: Amox/Clavulanate 875 MG Tablet PO ×2 (08:13→17:51)
[2019-06-08] MEDS: Iron Polysaccharide Complex 150 MG CAPSULE PO (08:13)
[2019-06-08] MEDS: Mupirocin Ointment 22gm Tube 1 APPLIC OPERA.SITE (08:14)
[2019-06-08] MEDS: Pantoprazole Sodium 40 MG Tablet PO (14:25)
[2019-06-08 16:00] VITALS: BP 113/64; PULSE 89; RESP 17; TEMP 36.6; O2SAT 100
[2019-06-08] MEDS: 0.9% Saline Lock 10 ML Syringe IV (22:13)
[2019-06-09] MEDS: Baclofen 10 MG Tablet PO (02:38)
[2019-06-09] MEDS: Acetaminophen 500 MG Tablet 1000 MG PO ×4 (04:05→22:10)
[2019-06-09] MEDS: Levothyroxine 25 MCG TABLET PO (04:06)
[2019-06-09] MEDS: Docusate Sodium 100 MG Capsule PO ×2 (04:06→16:49)
[2019-06-09] MEDS: Gabapentin 400 MG Capsule PO ×3 (04:06→22:10)
[2019-06-09] MEDS: Enoxaparin 40 MG/0.4 ML Syringe SC (04:07)
[2019-06-09] MEDS: Amox/Clavulanate 875 MG Tablet PO ×2 (08:12→16:49)
[2019-06-09] MEDS: Iron Polysaccharide Complex 150 MG CAPSULE PO (08:12)
--- NOTE | 2019-06-09 08:21 | NURSING ---
Noted that pt was not up in chair for brkfst this AM, pt sitting 90 degrees in bed. Questioned pt why she was not up in chair and she responded that it takes too long, staff too busy passing trays. Explained to pt that staff will work around it, that it is our job. pt stated thats my excuse and I am sticking to it with a grin. Explained getting up in chair for 30 minutes at a time will be beneficial since she has been on bedrest for so long. pt verbalized understanding.
[2019-06-09] MEDS: Mupirocin Ointment 22gm Tube 1 APPLIC OPERA.SITE (11:19)
[2019-06-09] MEDS: Pantoprazole Sodium 40 MG Tablet PO (14:55)
--- NOTE | 2019-06-09 15:21 | NURSING ---
wound photo: sacrum
[2019-06-09 16:00] VITALS: BP 114/54; PULSE 72; RESP 18; TEMP 36.7; O2SAT 90
--- NOTE | 2019-06-09 18:26 | PCM.PN.SRG ---
Subjective: Postop #45 Patient resting comfortably. Started PT today for ambulation and strengthening. - Physical Exam Vitals/I&O's: Vital Signs Temp Pulse Resp BP Pulse Ox 98.0 F 72 18 114/54 L 90 06/09/19 16:00 06/09/19 16:00 06/09/19 16:00 06/09/19 16:00 06/09/19 16:00 Oxygen Delivery Method Room Air Weight: 215 lb 3 oz Body Mass Index (BMI) 36.8 Intake and Output for Last 24 Hours 06/07/19 06/08/19 06/09/19 23:59 23:59 23:59 Intake Total 960 / 960 960 / 960 720 / 720 Output Total 3050 / 3050 2700 / 2700 1000 / 1000 Balance -2090 / -2090 -1740 / -1740 -280 / -280 General: Alert, Oriented x3 HEENT: PERRLA, EOMI Oral: Moist Mucosa Neck: Supple Abdomen: Soft, Non-Distended Skin: Ulcer/ Wound - sacral wound at inferior aspect of large flap incision is stable. It is superficial into the subcutaneous tissue. Granulation tissue present. No exposed bone. Measures 2.2 x 2.5 x 0.5 cm., Incision - back incision is healed except for small area of wound breakdown in the sacral area. It is superficial into the subcutaneous tissue. Granulation tissue present. Gets daily Silver dressing changes. Neurological: Cranial nerves II-XII grossly intact Psych/Mental Status: Normal Affect, Appropriate Current Medications Acetaminophen (Tylenol) 1,000 mg PO Q6H [facility] Last Admin: 06/09/19 16:07 Dose: 1,000 mg Documented by: Amoxicillin/Clavulanate Pot[facility] ([facility]) [facility] Last Admin: 06/09/19 16:49 Dose: 875 mg Documented by: Baclofen (Lioresal) 10 mg PO TID PRN PRN Reason: back pain Last Admin: 06/09/19 02:38 Dose: 10 mg Documented by: Calcium Carbonate (Tums) 500 mg PO Q4H PRN PRN PRN Reason: INDIGESTION Docusate Sodium (Colace) 100 mg PO BID [facility] Last Admin: 06/09/19 16:49 Dose: 100 mg Documented by: Enoxaparin Sodium (Lovenox) 40 mg SC DAILY@0600 [facility] Last Admin: 06/09/19 04:07 Dose: 40 mg Documented by: Gabapentin (Neurontin) 400 mg PO TID [facility] Last Admin: 06/09/19 14:55 Dose: 400 mg Documented by: Heparin Sodium (Beef Lung) () 50 units IV UD PRN PRN Reason: PICC Line Heparin Flush Last Admin: 05/04/19 12:31 Dose: 50 units Documented by: Sodium Chloride () 250 mls @ 15 mls/hr IV .[id number] PRN PRN Reason: Saline Flush Last Infusion: 06/06/19 20:38 Dose: Infused Documented by: Vancomycin IV Pharmacy to Dose (1 ea/ Sodium Chloride) 500 mls @ 250 mls/hr IV X1 PRN; Protocol PRN Reason: Rx to Dose Lactobacillus Acidophilus (Acidophilus) 1 tablet PO DAILY [facility] Last Admin: 06/09/19 04:06 Dose: 1 tablet Documented by: Levothyroxine Sodium (Synthroid) 25 mcg PO DAILY [facility] Last Admin: 06/09/19 04:06 Dose: 25 mcg Documented by: Methylcellulose (Citrucel) 2 gm PO BID PRN PRN Reason: Constipation Mupirocin (Bactroban) 1 applic OPERA.SITE DAILY@0800 [facility]; Protocol Last Admin: 06/09/19 11:19 Dose: 1 applicatio Documented by: Nutritional Formula (Teofilo - [place] Flavor) [facility] Last Admin: 06/09/19 16:49 Dose: 1 packet Documented by: Pantoprazole Sodium (Protonix) 40 mg PO 1400 [facility] Last Admin: 06/09/19 14:55 Dose: 40 mg Documented by: Polyethylene Glycol (Miralax) 17 gm PO BID [facility] Last Admin: 06/09/19 16:48 Dose: Not Given Documented by: Polysaccharide Iron Complex (Ferrex 150) [facility] Last Admin: 06/09/19 08:12 Dose: 150 mg Documented by: Potassium Chloride (K-Dur) 40 meq PO DAILY [facility] Last Admin: 06/09/19 04:06 Dose: 40 meq Documented by: Sodium Chloride () 10 - 40 ml IV UD PRN PRN Reason: Open End PICC Flush Last Admin: 06/08/19 22:13 Dose: 10 ml Documented by: Sodium Chloride (0.9% Nacl (Sterile) Posiflush) 10 - 40 ml IV UD PRN PRN Reason: Port access or dressing change Medical Necessity - Tobacco Use Smoking Status: Former smoker Tobacco Use: Non-smoker Assessment/Plan All Active Problems (Last Updated 04/18/19 @ 13:58 by PAPI Jaramillo) Back pain (Acute) Heart murmur (Acute) Debility (Acute) Atrial fibrillation with RVR (Resolved) Clostridium difficile colitis (Resolved) Clostridium difficile infection (Resolved) Hypertension (Resolved) Rhabdomyolysis (Resolved) 1. Sacral pressure sore, Stage IV. 2. Osteomyelitis. 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 5. s/p excision sacral pressure sore, Stage IV, with partial ostectomy for osteomyelitis and reconstruction with lumbar bilobed fasciocutaneous transposition flap (255 cm2) and placement of AmnioFill placental connective tissue powder, 1000 mg. 6. Anemia of chronic disease, acute on chronic. Incisions are dry and intact except for small wound breakdown in the sacral area. Granulation tissue present. Superficial. No exposed bone. Getting Silver dressing changes daily. Rest of flap is soft and healing satisfactory. No evidence of vascular compromise. Massage rest of incisions with skin lotion to help soften up the scars. Patient has been able to go to the bathroom and sit in a chair. She has finished the Vancomycin for osteomyelitis and MRSA. She is still taking Augmentin for E. coli from a culture on 05/23/19. She will continue the Augmentin until 07/04/19. Now that the IV antibiotics are completed, PT has been ordered to work with ambulation and strengthening. Once she is steady on her feet, she can be discharged. The maier will be removed the day before discharge. After discharge, [facility].
[2019-06-09] MEDS: Polyethylene Glycol 3350 17 GM PACKET PO (19:26)
[2019-06-10] MEDS: Baclofen 10 MG Tablet PO (01:59)
[2019-06-10] MEDS: Levothyroxine 25 MCG TABLET PO (04:04)
[2019-06-10] MEDS: Docusate Sodium 100 MG Capsule PO ×2 (04:04→16:07)
[2019-06-10] MEDS: Gabapentin 400 MG Capsule PO ×3 (04:05→22:11)
[2019-06-10] MEDS: Enoxaparin 40 MG/0.4 ML Syringe SC (04:06)
[2019-06-10] MEDS: Acetaminophen 500 MG Tablet 1000 MG PO ×4 (04:06→22:11)
[2019-06-10] MEDS: 0.9% Saline Lock 10 ML Syringe IV ×2 (04:07→11:18)
[2019-06-10] MEDS: Polyethylene Glycol 3350 17 GM PACKET PO ×2 (04:08→16:08)
[2019-06-10] MEDS: Amox/Clavulanate 875 MG Tablet PO ×2 (07:57→16:08)
[2019-06-10] MEDS: Iron Polysaccharide Complex 150 MG CAPSULE PO (07:57)
--- NOTE | 2019-06-10 09:36 | NURSING ---
Entered room for meds this Am and pt was sitting up in bed again, not in her chair for brkfst as ordered by Dr Hansen.
[2019-06-10] MEDS: Pantoprazole Sodium 40 MG Tablet PO (13:11)
--- NOTE | 2019-06-10 15:10 | CHAPLAIN ---
Type of Pastoral Visit ___ Initial Visit _x__ Follow-up Visit ___ On-call Visit ___ General Patient Visit ___ Spiritual Assessment ___ Family Conference ___ Bereavement ___ Rapid Response ___ Code Blue ___ Other (describe below) Pastoral Care Referral From _x__ Patient ___ Family ___ Nurse ___ Physician ___ Practicing Dermatologist ___ Scrum Project Manager ___ Other (describe below) Sacrament/Intervention _x__ Active listening ___ Anointing ___ Bahai ___ Bereavement ___ Communion ___ Mayra exploration ___ _x__ Life review _x__ Prayer ___ Reconciliation ___ Sacrament of Sick _x__ Supportive presence ___ Wedding ___ Other (describe below) Pastoral Comments
[2019-06-10 15:23] VITALS: BP 101/54; PULSE 79; RESP 18; TEMP 36.2; O2SAT 93
[2019-06-11] MEDS: Docusate Sodium 100 MG Capsule PO ×2 (04:11→17:46)
[2019-06-11] MEDS: Acetaminophen 500 MG Tablet 1000 MG PO ×4 (04:11→22:12)
[2019-06-11] MEDS: Levothyroxine 25 MCG TABLET PO (04:12)
[2019-06-11] MEDS: Enoxaparin 40 MG/0.4 ML Syringe SC (04:12)
[2019-06-11] MEDS: 0.9% Saline Lock 10 ML Syringe IV ×2 (04:13→17:49)
[2019-06-11] MEDS: Gabapentin 400 MG Capsule PO ×3 (04:14→22:15)
[2019-06-11] MEDS: Iron Polysaccharide Complex 150 MG CAPSULE PO (07:53)
[2019-06-11] MEDS: Amox/Clavulanate 875 MG Tablet PO ×2 (07:53→17:46)
[2019-06-11 10:00] VITALS: PULSE 77; RESP 14; O2SAT 95
[2019-06-11] MEDS: Pantoprazole Sodium 40 MG Tablet PO (14:37)
[2019-06-11 16:00] VITALS: BP 101/55; PULSE 85; RESP 17; TEMP 36.6; O2SAT 94
[2019-06-12] MEDS: Baclofen 10 MG Tablet PO (01:48)
[2019-06-12] MEDS: Docusate Sodium 100 MG Capsule PO ×2 (04:11→16:12)
[2019-06-12] MEDS: Enoxaparin 40 MG/0.4 ML Syringe SC (04:11)
[2019-06-12] MEDS: Gabapentin 400 MG Capsule PO ×3 (04:11→20:49)
[2019-06-12] MEDS: Levothyroxine 25 MCG TABLET PO (04:11)
[2019-06-12] MEDS: Acetaminophen 500 MG Tablet 1000 MG PO ×4 (04:12→22:20)
[2019-06-12] MEDS: 0.9% Saline Lock 10 ML Syringe IV ×2 (04:14→16:23)
[2019-06-12 06:16] LABS: Anion Gap 5 (5-15); BUN 25 mg/dL (7-18); BUN/Creat Ratio 40.7 RATIO (10-20); Calcium,Total 9.4 mg/dL (8.5-10.1); Chloride 110 mmol/L (98-107); Creatinine, Serum 0.61 mg/dL (0.55-1.02); EST Glomerular Filtration Rate 103 mL/min (>60); Est Glom Filt Rate - Afr Amer 125 mL/min (>60); Estimated Creatinine Clearance 47.14 ml/min; Glucose 83 mg/dL (74-106); Potassium 4.2 mmol/L (3.5-5.1); Sodium Level 143 mmol/L (136-145)
[2019-06-12] MEDS: Iron Polysaccharide Complex 150 MG CAPSULE PO (08:31)
[2019-06-12] MEDS: Amox/Clavulanate 875 MG Tablet PO ×2 (08:31→16:13)
[2019-06-12] MEDS: Pantoprazole Sodium 40 MG Tablet PO (13:20)
[2019-06-12 16:00] VITALS: BP 109/61; PULSE 80; RESP 18; TEMP 36.6; O2SAT 94
[2019-06-13] MEDS: Acetaminophen 500 MG Tablet 1000 MG PO ×4 (04:18→22:21)
[2019-06-13] MEDS: Levothyroxine 25 MCG TABLET PO (04:20)
[2019-06-13] MEDS: Gabapentin 400 MG Capsule PO ×2 (04:20→12:41)
[2019-06-13] MEDS: Docusate Sodium 100 MG Capsule PO ×2 (04:20→16:04)
[2019-06-13] MEDS: Enoxaparin 40 MG/0.4 ML Syringe SC (04:21)
[2019-06-13] MEDS: 0.9% Saline Lock 10 ML Syringe IV ×2 (04:25→16:04)
[2019-06-13] MEDS: Iron Polysaccharide Complex 150 MG CAPSULE PO (08:29)
[2019-06-13] MEDS: Amox/Clavulanate 875 MG Tablet PO ×2 (08:29→16:04)
[2019-06-13] MEDS: Pantoprazole Sodium 40 MG Tablet PO (12:41)
--- NOTE | 2019-06-13 15:16 | NURSING ---
R' C/O INCREASE N/T TO RIGHT FOOT/ANKLE/LEG. UPDATED DR. SCHMIDT, INCREASE NEURONTIN TO 600MG TID. WILL UPDATE R'.
[2019-06-13 15:29] VITALS: BP 125/75; PULSE 90; RESP 18; TEMP 36.1; O2SAT 94
[2019-06-13] MEDS: Gabapentin 600 MG Tablet PO (22:20)
[2019-06-14] MEDS: Baclofen 10 MG Tablet PO (01:10)
[2019-06-14] MEDS: Levothyroxine 25 MCG TABLET PO (04:19)
[2019-06-14] MEDS: Acetaminophen 500 MG Tablet 1000 MG PO ×4 (04:19→22:22)
[2019-06-14] MEDS: Docusate Sodium 100 MG Capsule PO ×2 (04:20→16:04)
[2019-06-14] MEDS: Gabapentin 600 MG Tablet PO ×3 (04:20→21:40)
[2019-06-14] MEDS: Enoxaparin 40 MG/0.4 ML Syringe SC (04:21)
[2019-06-14] MEDS: Amox/Clavulanate 875 MG Tablet PO ×2 (08:53→16:04)
[2019-06-14] MEDS: Iron Polysaccharide Complex 150 MG CAPSULE PO (08:53)
[2019-06-14] MEDS: Pantoprazole Sodium 40 MG Tablet PO (13:32)
[2019-06-14 15:09] VITALS: BP 113/72; PULSE 90; RESP 22; TEMP 36; O2SAT 93
[2019-06-14] MEDS: 0.9% Saline Lock 10 ML Syringe IV (16:04)
[2019-06-15] MEDS: Docusate Sodium 100 MG Capsule PO ×2 (04:32→16:09)
[2019-06-15] MEDS: Gabapentin 600 MG Tablet PO ×3 (04:32→20:38)
[2019-06-15] MEDS: Levothyroxine 25 MCG TABLET PO (04:32)
[2019-06-15] MEDS: Acetaminophen 500 MG Tablet 1000 MG PO ×4 (04:32→22:23)
[2019-06-15] MEDS: Enoxaparin 40 MG/0.4 ML Syringe SC (04:33)
[2019-06-15] MEDS: 0.9% Saline Lock 10 ML Syringe IV ×2 (04:35→16:10)
[2019-06-15] MEDS: Iron Polysaccharide Complex 150 MG CAPSULE PO (07:36)
[2019-06-15] MEDS: Amox/Clavulanate 875 MG Tablet PO ×2 (07:36→16:09)
[2019-06-15] MEDS: Baclofen 10 MG Tablet PO (08:45)
[2019-06-15] MEDS: Pantoprazole Sodium 40 MG Tablet PO (13:48)
[2019-06-15 15:03] VITALS: BP 119/67; PULSE 97; RESP 24; TEMP 36.6; O2SAT 95
[2019-06-15] MEDS: Polyethylene Glycol 3350 17 GM PACKET PO (16:09)
[2019-06-16] MEDS: Baclofen 10 MG Tablet PO (01:04)
[2019-06-16] MEDS: Docusate Sodium 100 MG Capsule PO ×2 (04:32→16:42)
[2019-06-16] MEDS: Enoxaparin 40 MG/0.4 ML Syringe SC (04:33)
[2019-06-16] MEDS: Levothyroxine 25 MCG TABLET PO (04:33)
[2019-06-16] MEDS: Gabapentin 600 MG Tablet PO ×3 (04:33→21:31)
[2019-06-16] MEDS: Acetaminophen 500 MG Tablet 1000 MG PO ×4 (04:33→22:33)
[2019-06-16] MEDS: Polyethylene Glycol 3350 17 GM PACKET PO ×2 (04:34→16:42)
[2019-06-16] MEDS: 0.9% Saline Lock 10 ML Syringe IV ×2 (04:37→16:11)
[2019-06-16] MEDS: Iron Polysaccharide Complex 150 MG CAPSULE PO (08:03)
[2019-06-16] MEDS: Amox/Clavulanate 875 MG Tablet PO ×2 (08:03→16:41)
--- NOTE | 2019-06-16 12:58 | NURSING ---
wound photo: sacrum
[2019-06-16] MEDS: Pantoprazole Sodium 40 MG Tablet PO (14:43)
[2019-06-16 16:00] VITALS: BP 134/74; PULSE 77; RESP 17; TEMP 36.4; O2SAT 94
--- NOTE | 2019-06-16 22:49 | NURSING ---
PICC Line removed at this time. 45 CM removed, Line intact. Pressure applied to site, dry sterile dressing,petroleum jelly, and opsite applied to site. Patient tolerated procedure well.
[2019-06-17] MEDS: Baclofen 10 MG Tablet PO (00:41)
[2019-06-17] MEDS: Docusate Sodium 100 MG Capsule PO ×2 (04:38→17:31)
[2019-06-17] MEDS: Gabapentin 600 MG Tablet PO ×3 (04:38→20:41)
[2019-06-17] MEDS: Enoxaparin 40 MG/0.4 ML Syringe SC (04:39)
[2019-06-17] MEDS: Levothyroxine 25 MCG TABLET PO (04:39)
[2019-06-17] MEDS: Acetaminophen 500 MG Tablet 1000 MG PO ×4 (04:39→22:36)
[2019-06-17] MEDS: Amox/Clavulanate 875 MG Tablet PO ×2 (07:55→17:30)
[2019-06-17] MEDS: Iron Polysaccharide Complex 150 MG CAPSULE PO (07:55)
[2019-06-17] MEDS: Pantoprazole Sodium 40 MG Tablet PO (14:57)
[2019-06-17 15:58] VITALS: BP 150/81; PULSE 81; RESP 17; TEMP 36.1; O2SAT 96
[2019-06-18] MEDS: Baclofen 10 MG Tablet PO (02:41)
[2019-06-18] MEDS: Docusate Sodium 100 MG Capsule PO ×2 (04:43→16:24)
[2019-06-18] MEDS: Acetaminophen 500 MG Tablet 1000 MG PO ×4 (04:44→22:37)
[2019-06-18] MEDS: Enoxaparin 40 MG/0.4 ML Syringe SC (04:44)
[2019-06-18] MEDS: Gabapentin 600 MG Tablet PO ×3 (04:44→22:36)
[2019-06-18] MEDS: Levothyroxine 25 MCG TABLET PO (04:44)
[2019-06-18] MEDS: Iron Polysaccharide Complex 150 MG CAPSULE PO (08:19)
[2019-06-18] MEDS: Amox/Clavulanate 875 MG Tablet PO ×2 (08:20→16:24)
[2019-06-18] MEDS: Pantoprazole Sodium 40 MG Tablet PO (15:16)
[2019-06-18 16:00] VITALS: BP 122/66; PULSE 79; RESP 17; TEMP 36.5; O2SAT 95
[2019-06-18] MEDS: Calcium Carbonate 500 MG Tablet PO (22:36)
[2019-06-19] MEDS: Baclofen 10 MG Tablet PO (02:18)
[2019-06-19] MEDS: Acetaminophen 500 MG Tablet 1000 MG PO ×4 (04:45→22:38)
[2019-06-19] MEDS: Enoxaparin 40 MG/0.4 ML Syringe SC (04:47)
[2019-06-19] MEDS: Levothyroxine 25 MCG TABLET PO (04:47)
[2019-06-19] MEDS: Docusate Sodium 100 MG Capsule PO ×2 (04:47→16:57)
[2019-06-19] MEDS: Gabapentin 600 MG Tablet PO ×3 (04:47→22:36)
[2019-06-19 06:31] LABS: Anion Gap 6 (5-15); BUN 19 mg/dL (7-18); BUN/Creat Ratio 34.1 RATIO (10-20); Calcium,Total 9.3 mg/dL (8.5-10.1); Chloride 108 mmol/L (98-107); Creatinine, Serum 0.56 mg/dL (0.55-1.02); EST Glomerular Filtration Rate 115 mL/min (>60); Est Glom Filt Rate - Afr Amer 139 mL/min (>60); Estimated Creatinine Clearance 47.14 ml/min; Glucose 98 mg/dL (74-106); Sodium Level 141 mmol/L (136-145)
[2019-06-19] MEDS: Iron Polysaccharide Complex 150 MG CAPSULE PO (08:21)
[2019-06-19] MEDS: Amox/Clavulanate 875 MG Tablet PO ×2 (08:21→16:11)
[2019-06-19 10:00] VITALS: RESP 18
[2019-06-19 15:35] VITALS: BP 100/61; PULSE 76; RESP 18; TEMP 36.6; O2SAT 94
[2019-06-19] MEDS: Pantoprazole Sodium 40 MG Tablet PO (16:11)
[2019-06-20] MEDS: Baclofen 10 MG Tablet PO (01:40)
[2019-06-20] MEDS: Acetaminophen 500 MG Tablet 1000 MG PO ×4 (04:46→22:39)
[2019-06-20] MEDS: Enoxaparin 40 MG/0.4 ML Syringe SC (04:51)
[2019-06-20] MEDS: Gabapentin 600 MG Tablet PO ×3 (04:52→21:40)
[2019-06-20] MEDS: Docusate Sodium 100 MG Capsule PO ×2 (04:52→16:28)
[2019-06-20] MEDS: Levothyroxine 25 MCG TABLET PO (04:52)
--- NOTE | 2019-06-20 04:57 | NURSING ---
Pt rating pain to back 10/10. Pt has been lying on Left side all night refusing to be repositioned or turned to opposite side. Educated on the importance of repositioning but pt still refused. Pt refused the offer of trying a kpad or polar care. Scheduled tylenol given per order. Fresh ice water provided per pt request. Pt denied anything further. Call light in reach.
[2019-06-20] MEDS: Iron Polysaccharide Complex 150 MG CAPSULE PO (08:23)
[2019-06-20] MEDS: Amox/Clavulanate 875 MG Tablet PO ×2 (08:23→16:27)
[2019-06-20] MEDS: Pantoprazole Sodium 40 MG Tablet PO (14:13)
[2019-06-20 16:00] VITALS: BP 141/77; PULSE 78; RESP 18; TEMP 36.6; O2SAT 95
[2019-06-21] MEDS: Baclofen 10 MG Tablet PO (02:28)
[2019-06-21] MEDS: Acetaminophen 500 MG Tablet 1000 MG PO ×4 (04:50→22:40)
[2019-06-21] MEDS: Levothyroxine 25 MCG TABLET PO (04:57)
[2019-06-21] MEDS: Docusate Sodium 100 MG Capsule PO ×2 (04:58→16:53)
[2019-06-21] MEDS: Enoxaparin 40 MG/0.4 ML Syringe SC (04:58)
[2019-06-21] MEDS: Gabapentin 600 MG Tablet PO ×3 (04:58→20:24)
[2019-06-21] MEDS: Iron Polysaccharide Complex 150 MG CAPSULE PO (08:24)
[2019-06-21] MEDS: Amox/Clavulanate 875 MG Tablet PO ×2 (08:24→16:53)
[2019-06-21] MEDS: Pantoprazole Sodium 40 MG Tablet PO (13:32)
[2019-06-21 15:54] VITALS: BP 130/67; PULSE 84; RESP 18; TEMP 36.4; O2SAT 93
[2019-06-21] MEDS: Polyethylene Glycol 3350 17 GM PACKET PO (16:53)
--- NOTE | 2019-06-21 23:49 | NURSING ---
2300- Pt expressing concerns re: maier being in place for greater than 30 days. Current order to DC maier 1 day before discharge, however, pt states she feels she will be here at least another week and would like catheter changed. Discussed possible voiding trails which pt states she will not be able to make it to the restroom in time and will be incontinent, patient has an open wound at her cleft. Dr. Sanchez notified and new order received to change maier. Existing maier removed and catheter was intact. New maier catheter inserted with sterile technique and pt tolerated well.
[2019-06-22] MEDS: Baclofen 10 MG Tablet PO (02:54)
[2019-06-22] MEDS: Gabapentin 600 MG Tablet PO ×3 (04:56→22:42)
[2019-06-22] MEDS: Docusate Sodium 100 MG Capsule PO ×2 (04:56→16:23)
[2019-06-22] MEDS: Acetaminophen 500 MG Tablet 1000 MG PO ×4 (04:56→22:41)
[2019-06-22] MEDS: Levothyroxine 25 MCG TABLET PO (04:56)
[2019-06-22] MEDS: Enoxaparin 40 MG/0.4 ML Syringe SC (04:57)
[2019-06-22] MEDS: Iron Polysaccharide Complex 150 MG CAPSULE PO (07:43)
[2019-06-22] MEDS: Amox/Clavulanate 875 MG Tablet PO ×2 (07:43→16:23)
[2019-06-22] MEDS: Pantoprazole Sodium 40 MG Tablet PO (14:00)
[2019-06-22 16:00] VITALS: BP 136/77; PULSE 76; RESP 18; TEMP 36.6; O2SAT 94
[2019-06-23] MEDS: Baclofen 10 MG Tablet PO (03:53)
[2019-06-23] MEDS: Enoxaparin 40 MG/0.4 ML Syringe SC (04:56)
[2019-06-23] MEDS: Docusate Sodium 100 MG Capsule PO ×2 (04:57→17:01)
[2019-06-23] MEDS: Acetaminophen 500 MG Tablet 1000 MG PO ×4 (04:57→22:43)
[2019-06-23] MEDS: Gabapentin 600 MG Tablet PO ×3 (04:57→22:37)
[2019-06-23] MEDS: Levothyroxine 25 MCG TABLET PO (04:57)
--- NOTE | 2019-06-23 05:04 | NURSING ---
Pt complaint of baclofen not helping with pain. Pt lying on left side and has refused to turn all night. Educated pt on importance of lying on Rt side for awhile to help relieve pain. Pt refused. Scheduled tylenol given. Pt refused further needs at this time. Resting in bed with call light in reach.
[2019-06-23] MEDS: Iron Polysaccharide Complex 150 MG CAPSULE PO (07:37)
[2019-06-23] MEDS: Amox/Clavulanate 875 MG Tablet PO ×2 (07:37→17:00)
--- NOTE | 2019-06-23 12:03 | NURSING ---
wound photo: sacrum
[2019-06-23] MEDS: Pantoprazole Sodium 40 MG Tablet PO (13:40)
[2019-06-23 16:00] VITALS: BP 121/79; PULSE 84; RESP 18; TEMP 36.1; O2SAT 91
--- NOTE | 2019-06-23 20:27 | PN_ITS ---
Subjective: Resident seen in room today, she is in bed. She is tearful today, concerned she maybe discharged too early. I reassured her she is making good progress. Her sacral wound is nearly healed. Vitals/I&O's: Vital Signs Temp Pulse Resp BP Pulse Ox 97 F L 84 18 121/79 H 91 06/23/19 16:00 06/23/19 16:00 06/23/19 16:00 06/23/19 16:00 06/23/19 16:00 Oxygen Delivery Method Room Air Weight: 97.692 kg Body Mass Index (BMI) 36.8 Intake and Output for Last 24 Hours 06/21/19 06/22/19 06/23/19 23:59 23:59 23:59 Intake Total 840 / 840 780 / 780 960 / 960 Output Total 3300 / 3300 2800 / 2800 2200 / 2200 Balance -2460 / -2460 -2020 / -2020 -1240 / -1240 Past Medical History Past Medical History (Chronic Problems): Chronic Problems (Last Updated 04/18/19 @ 13:58 by PAPI Jaramillo) Pressure ulcer of sacral region, stage 4 (Chronic) Sacral osteomyelitis (Chronic) Anxiety (Chronic) Anemia, chronic disease (Chronic) Body mass index (bmi) 36.0-36.9, adult (Chronic) Aortic stenosis (Chronic) Hypertension (Chronic) Osteomyelitis (Chronic) Atrial fibrillation (Chronic) Back pain (Chronic) Methicillin resistant Staph aureus culture positive (Chronic) MRSA (methicillin resistant Staphylococcus aureus) infection (Chronic) Osteomyelitis of pelvis (Chronic) Constipation (Chronic) Hypergranulation (Chronic) Acute osteomyelitis of sacrum (Chronic) Surgical wound present (Chronic) Secondary pulmonary arterial hypertension (Chronic) Non-rheumatic tricuspid valve insufficiency (Chronic) Preop cardiovascular exam (Chronic) Abnormal electrocardiogram (Chronic) Essential (primary) hypertension (Chronic) Colovaginal fistula (Chronic) Non-healing surgical wound (Chronic) Pressure ulcer of right heel, stage 3 (Chronic) Pressure ulcer of left heel, stage 3 (Chronic) Morbid obesity with BMI of 40.0-44.9, adult (Chronic) GERD (gastroesophageal reflux disease) (Chronic) Depression (Chronic) Hypothyroidism (Chronic) Pressure ulcer of sacral region, stage 4 (Chronic) Failure to thrive (Chronic) Neuropathy (Chronic) Medical History: Medical History (Last Updated 04/18/19 @ 13:58 by PAPI Jaramillo) Aortic stenosis (Chronic) I35.0 Hypertension (Chronic) I10 Osteomyelitis (Chronic) M86.9 Atrial fibrillation (Chronic) I48.91 Secondary pulmonary arterial hypertension (Chronic) I27.21 Non-rheumatic tricuspid valve insufficiency (Chronic) I36.1 Essential (primary) hypertension (Chronic) I10 Morbid obesity with BMI of 40.0-44.9, adult (Chronic) E66.01, Z68.41 GERD (gastroesophageal reflux disease) (Chronic) K21.9 Depression (Chronic) F32.9 Hypothyroidism (Chronic) E03.9 Abnormal Pap smear of cervix R87.619 Anemia D64.9 GERD (gastroesophageal reflux disease) K21.9 Sacral wound S31.000A Thyroid disorder E07.9 anixety and depression Hypertension I10 no longer on medication d/t weight loss Allergies bee venom protein (honey bee) Allergy (Verified 04/25/19 09:26) Angioedema metaxalone [From Skelaxin] Allergy (Verified 04/25/19 09:26) Swelling Home Medications: Ambulatory Orders Medication Instructions Recorded Levothyroxine [Synthroid] 25 mcg PO DAILY 03/02/17 cholecalciferol (vitamin D3) 1,250 50,000 unit PO QMONTH 08/02/17 mcg (50,000 unit) capsule Ascorbic Acid 500 mg PO DAILY 08/21/17 Potassium Chloride [K-Dur] 40 meq PO DAILY 12/26/17 Omeprazole 40 mg PO 1400 04/11/18 omega-3 fatty acids 1,000 mg 1,000 mg PO DAILY 04/19/18 capsule Linacolotide [Linzess] 145 mcg PO DAILY PRN cap 07/08/18 Gabapentin [Neurontin] 400 mg PO TID 09/02/18 Iron Polysaccharide Complex 150 mg PO DAILYCM #30 cap 09/12/18 [Ferrex 150] Acetaminophen [Tylenol] 500 mg PO Q6H 03/12/19 Lactobacillus Acidophilus/Fos 1 ea PO DAILY 03/12/19 [Acidophilus Probiotic Tablet] Magnesium Oxide [Magnesium] 500 mg PO DAILY 03/12/19 Calcium Carbonate [Tums] 1,000 mg PO Q4H PRN PRN tab 04/01/19 Diclofenac [Voltaren] 50 mg PO BIDCM 04/18/19 Baclofen [Lioresal] 10 mg PO TID PRN #90 tab 04/28/19 Docusate Sodium [Colace] 100 mg PO BID 04/28/19 Enoxaparin [Lovenox] 40 mg SUBCUT DAILY@0600 04/28/19 Mupirocin [Bactroban] 1 applic TOPICAL DAILY 04/28/19 Nutritional Supplement [Teofilo - 1 packet PO BIDCM 04/28/19 [facility]] Ondansetron [Zofran] 4 mg IV Q6H PRN PRN vial 04/28/19 Oxycodone [Oxyir] 10 mg PO Q4H PRN PRN 7 Days #40 tab 04/28/19 Polyethylene Glycol 3350 [Miralax] 17 gm PO BID 04/28/19 Vancomycin IV 1,250 mg IV Q8H 04/28/19 levoFLOXacin tablet [Levaquin 500 mg PO DAILY@0600 04/28/19 tablet] metroNIDAZOLE [Flagyl] 500 mg PO TID 04/28/19 proMETHazine tablet [Phenergan 25 mg PO Q4H PRN PRN tab 04/28/19 tablet] Surgical History: Surgical History (Last Reviewed 04/18/19 @ 13:56 by PAPI Jaramillo) H/O dilation and curettage Z98.890 History of LAVH Z98.890, Z90.710 S/P endometrial ablation Z98.890 S/P hysterectomy Z90.710 uterine ablation History of partial colectomy Z90.49 Surgical History: dilatation and curettage, hysterectomy, - - Uterine ablation, Debridement/excision of sacral pressure ulcer X4. Colovaginal fistula surgical repair. Sacal pressure ulcer flap repair. 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 Paternal Family History: Family History (Last Reviewed 04/18/19 @ 13:56 by PAPI Jaramillo) Father Myocardial infarction Cancer Brother Heart disease Mother COPD (chronic obstructive pulmonary disease) History Items: Unknown, - - Patient's father at age of 79 with history of lung cancer and myocardial infarction. Capacity - Capacity Assessment Tool Can the patient make a choice & communicate that choice?: Yes Can the patient understand benefits, risks and alternatives?: Yes Can the patient make a logical, rational choice?: Yes Is the choice the patient makes consistent w/ their values?: Yes Is there an impending, emergent risk to the patient?: No Does the patient have an Advance Directive?: Yes Is there a Surrogate Available?: No i.e. HCPOA: No i.e. close relative (spouse, child, parent, sibling)?: No Review of Systems Constitutional: Denies: Chills, Fever, Weight Change HEENT: Denies: Head Aches, Sinus Congestion, Sinus Drainage Cardiovascular: Denies: Chest Pain, Palpitations Respiratory: Denies: Cough, Shortness of breath at rest, Sputum production Gastrointestinal: Denies: Abdominal Pain, Nausea, Vomiting Genitourinary: Denies: Dysuria Musculoskeletal: Denies: Joint Pain, Joint Tenderness Skin: Denies: Rash, Wounds Neurological: Denies: Numbness, Tingling, Focal weakness Psychiatric: Denies: Anxiety, Depression, Homicidal Ideations, Suicidal Ideations Hematologic/ Lymphatic: Denies: Easy Bruising, Easy Bleeding - Physical Exam Vitals/I&O's: Vital Signs Temp Pulse Resp BP Pulse Ox 97 F L 84 18 121/79 H 91 06/23/19 16:00 06/23/19 16:00 06/23/19 16:00 06/23/19 16:00 06/23/19 16:00 Oxygen Delivery Method Room Air Weight: 97.692 kg Body Mass Index (BMI) 36.8 Intake and Output for Last 24 Hours 06/21/19 06/22/19 06/23/19 23:59 23:59 23:59 Intake Total 840 / 840 780 / 780 960 / 960 Output Total 3300 / 3300 2800 / 2800 2200 / 2200 Balance -2460 / -2460 -2020 / -2020 -1240 / -1240 General: Alert, Oriented x3, Cooperative HEENT: Atraumatic, PERRLA, EOMI, Normocephalic Neck: Supple, No JVD, Negative Carotid Bruits Lungs: Clear to auscultation, Normal air movement Cardiovascular: Regular rate, No murmurs Abdomen: Bowel Sounds Present, Soft, Non Tender Extremities: No edema, Capillary Refill Less than 3 Seconds Skin: No rashes, Ulcer/ Wound - Sacrum, see wound photos. Musculoskeletal: No Tenderness to Palpation of Joints or Extremities Neurological: Cranial nerves II-XII grossly intact Psych/Mental Status: Normal Affect, Appropriate Current Medications Acetaminophen (Tylenol) 1,000 mg PO Q6H [facility] Last Admin: 06/23/19 16:37 Dose: 1,000 mg Documented by: Amoxicillin/Clavulanate Potassium ([facility]) [facility] Stop: 07/04/19 17:01 Last Admin: 06/23/19 17:00 Dose: 875 mg Documented by: Baclofen (Lioresal) 10 mg PO TID PRN PRN Reason: back pain Last Admin: 06/23/19 03:53 Dose: 10 mg Documented by: Calcium Carbonate (Tums) 500 mg PO Q4H PRN PRN PRN Reason: INDIGESTION Last Admin: 06/18/19 22:36 Dose: 500 mg Documented by: Docusate Sodium (Colace) 100 mg PO BID [facility] Last Admin: 06/23/19 17:01 Dose: 100 mg Documented by: Enoxaparin Sodium (Lovenox) 40 mg SC DAILY@0600 [facility] Last Admin: 06/23/19 04:56 Dose: 40 mg Documented by: Gabapentin (Neurontin) 600 mg PO TID [facility] Last Admin: 06/23/19 13:41 Dose: 600 mg Documented by: Heparin Sodium (Beef Lung) () 50 units IV UD PRN PRN Reason: PICC Line Heparin Flush Last Admin: 05/04/19 12:31 Dose: 50 units Documented by: Sodium Chloride () 250 mls @ 15 mls/hr IV .[id number] PRN PRN Reason: Saline Flush Last Infusion: 06/06/19 20:38 Dose: Infused Documented by: Vancomycin IV Pharmacy to Dose (1 ea/ Sodium Chloride) 500 mls @ 250 mls/hr IV X1 PRN; Protocol PRN Reason: Rx to Dose Lactobacillus Acidophilus (Acidophilus) 1 tablet PO DAILY [facility] Last Admin: 06/23/19 04:57 Dose: 1 tablet Documented by: Levothyroxine Sodium (Synthroid) 25 mcg PO DAILY [facility] Last Admin: 06/23/19 04:57 Dose: 25 mcg Documented by: Methylcellulose (Citrucel) 2 gm PO BID PRN PRN Reason: Constipation Nutritional Formula (Teofilo - [place] Flavor) 1 packet PO BIDCM [facility] Last Admin: 06/23/19 16:57 Dose: 1 packet Documented by: Pantoprazole Sodium (Protonix) 40 mg PO 1400 [facility] Last Admin: 06/23/19 13:40 Dose: 40 mg Documented by: Polyethylene Glycol (Miralax) 17 gm PO BID [facility] Last Admin: 06/23/19 17:00 Dose: Not Given Documented by: Polysaccharide Iron Complex (Ferrex 150) [facility] Last Admin: 06/23/19 07:37 Dose: 150 mg Documented by: Potassium Chloride (K-Dur) 40 meq PO DAILY [facility] Last Admin: 06/23/19 04:56 Dose: 40 meq Documented by: Sodium Chloride () 10 - 40 ml IV UD PRN PRN Reason: Open End PICC Flush Last Admin: 06/16/19 16:11 Dose: 10 ml Documented by: Sodium Chloride (0.9% Nacl (Sterile) Posiflush) 10 - 40 ml IV UD PRN PRN Reason: Port access or dressing change Assessment/Plan All Active Problems (Last Updated 04/18/19 @ 13:58 by PAPI Jaramillo) Back pain (Acute) Heart murmur (Acute) Debility (Acute) Atrial fibrillation with RVR (Resolved) Clostridium difficile colitis (Resolved) Clostridium difficile infection (Resolved) Hypertension (Resolved) Rhabdomyolysis (Resolved) 68 year old female with below past medical history chronic stage 4 sacral pressure, hospitalized underwent flap repair 04/25/[address] Hansen, admitted to TCU with debility, here for rehabilitation, strengthening, intravenous antibiotics, prior to discharge home alone. * Debility - PT/OT. * Pain - Tylenol 1000MG Q6H. * Bowel - Miralax 17GM BID, Colace 100MG BID, Citrucel 2GM BID PRN. * Adult immunization - Administer Prevnar 13, Pneumovax 23, Fluzone as needed. * DVT prophylaxis - Lovenox 40MG SC daily. * Muscle spasm - Baclofen 10MG TID PRN. * GERD - Pantoprazole 40MG daily, TUMS Q4H PRN. * Neuropathic pain - Gabapentin 600MG TID. * Iron deficiency anemia - Ferrex 150MG daily. * GI prophylaxis - Lactobacillus 1 tablet daily. * Sacral osteomyelitis - Wounc culture grew E. Coli, Finished IV Vancomycin, on Augmentin 875MG BID thru 07/03/2019. * Hypothyroidism - Levothyroxine 25MCG daily. * Stage 4 pressure ulcer status post flap repair * Nutrition - Teofilo 1 packet BID. * Hypokalemia - K-Dur 40MEQ daily.
[2019-06-24] MEDS: Enoxaparin 40 MG/0.4 ML Syringe SC (05:00)
[2019-06-24] MEDS: Gabapentin 600 MG Tablet PO ×3 (05:01→21:41)
[2019-06-24] MEDS: Docusate Sodium 100 MG Capsule PO ×2 (05:01→17:18)
[2019-06-24] MEDS: Acetaminophen 500 MG Tablet 1000 MG PO ×4 (05:01→22:49)
[2019-06-24] MEDS: Levothyroxine 25 MCG TABLET PO (05:01)
[2019-06-24] MEDS: Iron Polysaccharide Complex 150 MG CAPSULE PO (08:19)
[2019-06-24] MEDS: Amox/Clavulanate 875 MG Tablet PO ×2 (08:19→17:18)
[2019-06-24] MEDS: Pantoprazole Sodium 40 MG Tablet PO (13:35)
[2019-06-24 15:16] VITALS: BP 112/70; PULSE 72; RESP 20; TEMP 36.4; O2SAT 94
[2019-06-24] MEDS: Polyethylene Glycol 3350 17 GM PACKET PO (17:18)
[2019-06-24 21:58] VITALS: O2SAT 98
[2019-06-25] MEDS: Baclofen 10 MG Tablet PO ×2 (00:09→23:47)
[2019-06-25] MEDS: Enoxaparin 40 MG/0.4 ML Syringe SC (04:43)
[2019-06-25] MEDS: Gabapentin 600 MG Tablet PO ×3 (04:44→21:37)
[2019-06-25] MEDS: Docusate Sodium 100 MG Capsule PO ×2 (04:44→16:52)
[2019-06-25] MEDS: Levothyroxine 25 MCG TABLET PO (04:44)
[2019-06-25] MEDS: Acetaminophen 500 MG Tablet 1000 MG PO ×4 (05:02→22:51)
[2019-06-25] MEDS: Iron Polysaccharide Complex 150 MG CAPSULE PO (08:45)
[2019-06-25] MEDS: Amox/Clavulanate 875 MG Tablet PO ×2 (08:45→16:51)
[2019-06-25] MEDS: Pantoprazole Sodium 40 MG Tablet PO (13:27)
--- NOTE | 2019-06-25 13:36 | NURSING ---
Pt requesting to be able to be up in the chair for longer than 30 min at a time in the evenings. talked with Dr Hansen. Ok with patient being up as desired. Educated patient and recommended that patient not stay up the chair for hours at time. Pt states she cannot tolerate a very long time anyway. will monitor. wound is now nearly healed, but this area will still be risk for breakdown. Pt states understanding.
--- NOTE | 2019-06-25 14:14 | CASEMGMT ---
Social Work IDT met with patient for care plan meeting. Discussed patient's progress in therapy. Pt is SBA for transfers, using rollator walking 140 ft supervised, 3 small steps with 2 HR SBA, min assist for bathing, set up for UE ADLS, SBA for toileting, and wears gowns so no assistance for LE dressing. Pt's wound is healing well and physician potentially will upgrade therapy/out of town sitme. Explained Medicare coverage and encouraged pt to contact secondary to cover copays. Will continue to follow. JOSE ALEJANDRO DumontW
[2019-06-25 16:00] VITALS: BP 134/76; PULSE 82; RESP 17; TEMP 36.6; O2SAT 94
--- NOTE | 2019-06-25 16:06 | CHAPLAIN ---
Type of Pastoral Visit ___ Initial Visit _x__ Follow-up Visit ___ On-call Visit ___ General Patient Visit ___ Spiritual Assessment ___ Family Conference ___ Bereavement ___ Rapid Response ___ Code Blue ___ Other (describe below) Pastoral Care Referral From _x__ Patient ___ Family ___ Nurse ___ Physician ___ Licensed Practical Nurse ___ Home Lighting Adviser ___ Other (describe below) Sacrament/Intervention _x__ Active listening ___ Anointing ___ Restorationist ___ Bereavement ___ Communion _x__ Mayra exploration ___ ___ Life review _x__ Prayer ___ Reconciliation ___ Sacrament of Sick _x__ Supportive presence ___ Wedding ___ Other (describe below) Pastoral Comments patient requested visit from this cadastral surveyor in order to have discussion about some spiritual and holiness questions that she has been thinking about
--- NOTE | 2019-06-25 16:50 | NURSING ---
R' AWARE THAT SHE MAY GET OUT OF BED AND SIT IN CHAIR. R' DECLINING AT THIS TIME, STILL WANTING TO REMAIN IN BED. CURRENTLY ON LEFT SIDE. STATES SITTING IN THE CHAIR WILL TAKE SOME GETTING USED TO AGAIN. I DON'T WANT TO OVER DUE IT. CONT' TO NEED ENCOURAGEMENT.
[2019-06-25] MEDS: Polyethylene Glycol 3350 17 GM PACKET PO ×2 (16:52→21:38)
[2019-06-25] MEDS: Calcium Carbonate 500 MG Tablet PO (23:50)
[2019-06-26] MEDS: Levothyroxine 25 MCG TABLET PO (05:01)
[2019-06-26] MEDS: Docusate Sodium 100 MG Capsule PO ×2 (05:01→17:31)
[2019-06-26] MEDS: Enoxaparin 40 MG/0.4 ML Syringe SC (05:01)
[2019-06-26] MEDS: Gabapentin 600 MG Tablet PO ×3 (05:01→21:55)
[2019-06-26] MEDS: Acetaminophen 500 MG Tablet 1000 MG PO ×4 (05:04→23:32)
[2019-06-26] MEDS: Iron Polysaccharide Complex 150 MG CAPSULE PO (08:13)
[2019-06-26] MEDS: Amox/Clavulanate 875 MG Tablet PO ×2 (08:13→17:31)
[2019-06-26] MEDS: Pantoprazole Sodium 40 MG Tablet PO (15:04)
[2019-06-26 16:00] VITALS: BP 137/84; PULSE 81; RESP 16; TEMP 36.8; O2SAT 96
[2019-06-26 22:02] VITALS: O2SAT 98
[2019-06-26] MEDS: Calcium Carbonate 500 MG Tablet PO (22:53)
[2019-06-27] MEDS: Baclofen 10 MG Tablet PO ×2 (03:00→23:51)
[2019-06-27] MEDS: Acetaminophen 500 MG Tablet 1000 MG PO ×4 (05:26→23:36)
[2019-06-27] MEDS: Enoxaparin 40 MG/0.4 ML Syringe SC (05:26)
[2019-06-27] MEDS: Levothyroxine 25 MCG TABLET PO (05:27)
[2019-06-27] MEDS: Gabapentin 600 MG Tablet PO ×3 (05:27→22:46)
[2019-06-27] MEDS: Docusate Sodium 100 MG Capsule PO ×2 (05:31→17:28)
[2019-06-27] MEDS: Iron Polysaccharide Complex 150 MG CAPSULE PO (08:41)
[2019-06-27] MEDS: Amox/Clavulanate 875 MG Tablet PO ×2 (08:41→17:27)
[2019-06-27] MEDS: Pantoprazole Sodium 40 MG Tablet PO (13:46)
[2019-06-27 15:23] VITALS: BP 111/70; PULSE 79; RESP 18; TEMP 36.3; O2SAT 91
[2019-06-28] MEDS: Enoxaparin 40 MG/0.4 ML Syringe SC (05:22)
[2019-06-28] MEDS: Docusate Sodium 100 MG Capsule PO ×2 (05:24→17:40)
[2019-06-28] MEDS: Levothyroxine 25 MCG TABLET PO (05:25)
[2019-06-28] MEDS: Gabapentin 600 MG Tablet PO ×3 (05:25→20:52)
[2019-06-28] MEDS: Acetaminophen 500 MG Tablet 1000 MG PO ×4 (05:27→23:37)
[2019-06-28] MEDS: Iron Polysaccharide Complex 150 MG CAPSULE PO (09:08)
[2019-06-28] MEDS: Amox/Clavulanate 875 MG Tablet PO ×2 (09:09→17:40)
[2019-06-28] MEDS: Pantoprazole Sodium 40 MG Tablet PO (14:08)
[2019-06-28 14:28] VITALS: BP 131/64; PULSE 80; RESP 16; TEMP 36.7; O2SAT 92
[2019-06-28] MEDS: Baclofen 10 MG Tablet PO (23:46)
[2019-06-29] MEDS: Baclofen 10 MG Tablet PO (03:35)
[2019-06-29] MEDS: Acetaminophen 500 MG Tablet 1000 MG PO ×4 (05:28→23:39)
[2019-06-29] MEDS: Gabapentin 600 MG Tablet PO ×3 (05:35→20:50)
[2019-06-29] MEDS: Enoxaparin 40 MG/0.4 ML Syringe SC (05:35)
[2019-06-29] MEDS: Docusate Sodium 100 MG Capsule PO ×2 (05:36→17:49)
[2019-06-29] MEDS: Levothyroxine 25 MCG TABLET PO (05:36)
[2019-06-29] MEDS: Iron Polysaccharide Complex 150 MG CAPSULE PO (08:41)
[2019-06-29] MEDS: Amox/Clavulanate 875 MG Tablet PO ×2 (08:41→17:49)
[2019-06-29] MEDS: Pantoprazole Sodium 40 MG Tablet PO (13:47)
[2019-06-29 15:49] VITALS: BP 108/63; PULSE 76; RESP 18; TEMP 36.3; O2SAT 92
[2019-06-30] MEDS: Acetaminophen 500 MG Tablet 1000 MG PO ×4 (05:45→23:41)
[2019-06-30] MEDS: Docusate Sodium 100 MG Capsule PO ×2 (05:47→17:22)
[2019-06-30] MEDS: Gabapentin 600 MG Tablet PO ×3 (05:47→21:41)
[2019-06-30] MEDS: Levothyroxine 25 MCG TABLET PO (05:47)
[2019-06-30] MEDS: Enoxaparin 40 MG/0.4 ML Syringe SC (05:48)
[2019-06-30] MEDS: Amox/Clavulanate 875 MG Tablet PO ×2 (09:13→17:22)
[2019-06-30] MEDS: Iron Polysaccharide Complex 150 MG CAPSULE PO (09:13)
[2019-06-30] MEDS: Pantoprazole Sodium 40 MG Tablet PO (13:53)
--- NOTE | 2019-06-30 15:08 | NURSING ---
wound photo: sacrum
[2019-06-30 16:00] VITALS: BP 136/68; PULSE 76; RESP 18; TEMP 36.7; O2SAT 93
--- NOTE | 2019-06-30 22:51 | PN.SURG_ITS ---
Subjective: Postop #[id number] Patient is resting comfortably. Tolerating PT for ambulation and strengthening. - Physical Exam Vitals/I&O's: Vital Signs Temp Pulse Resp BP Pulse Ox 98.0 F 76 18 136/68 H 93 06/30/19 16:00 06/30/19 16:00 06/30/19 16:00 06/30/19 16:00 06/30/19 16:00 Oxygen Delivery Method Room Air Weight: 216 lb 1 oz Body Mass Index (BMI) 36.8 Intake and Output for Last 24 Hours 06/28/19 06/29/19 06/30/19 23:59 23:59 23:59 Intake Total 2140 / 2140 960 / 960 840 / 840 Output Total 2350 / 2350 2275 / 2275 2525 / 2525 Balance -210 / -210 -1315 / -1315 -1685 / -1685 General: Alert, Oriented x3 HEENT: PERRLA, EOMI Oral: Moist Mucosa Neck: Supple Abdomen: Soft, Non-Distended Skin: Ulcer/ Wound - sacral wound at inferior aspect of large flap incision is stable. It is superficial into the subcutaneous tissue. Granulation tissue present. No exposed bone. Measures 0.5 cm., Incision - back incision is healed except for small area of wound breakdown in the sacral area. Almost healed with Silver dressing changes. It is superficial into the subcutaneous tissue. Granulation tissue present. Has dry dressing today as the Silver was drying out the healing ulcer. Neurological: Cranial nerves II-XII grossly intact Psych/Mental Status: Normal Affect, Appropriate Current Medications Acetaminophen (Tylenol) 1,000 mg PO Q6H [facility] Last Admin: 06/30/19 17:50 Dose: 1,000 mg Documented by: Amoxicillin/Clavulanate Potassium (Augmentin Tablet) 875 mg PO BIDCM [facility] Stop: 07/04/19 17:01 Last Admin: 06/30/19 17:22 Dose: 875 mg Documented by: Baclofen (Lioresal) 10 mg PO TID PRN PRN Reason: back pain Last Admin: 06/29/19 03:35 Dose: 10 mg Documented by: Calcium Carbonate (Tums) 500 mg PO Q4H PRN PRN PRN Reason: INDIGESTION Last Admin: 06/26/19 22:53 Dose: 500 mg Documented by: Docusate Sodium (Colace) 100 mg PO BID [facility] Last Admin: 06/30/19 17:22 Dose: 100 mg Documented by: Enoxaparin Sodium (Lovenox) 40 mg SC DAILY@0600 [facility] Last Admin: 06/30/19 05:48 Dose: 40 mg Documented by: Gabapentin (Neurontin) 600 mg PO TID [facility] Last Admin: 06/30/19 21:41 Dose: 600 mg Documented by: Heparin Sodium (Beef Lung) () 50 units IV UD PRN PRN Reason: PICC Line Heparin Flush Last Admin: 05/04/19 12:31 Dose: 50 units Documented by: Sodium Chloride () 250 mls @ 15 mls/hr IV .[id number] PRN PRN Reason: Saline Flush Last Infusion: 06/06/19 20:38 Dose: Infused Documented by: Vancomycin IV Pharmacy to Dose (1 ea/ Sodium Chloride) 500 mls @ 250 mls/hr IV X1 PRN; Protocol PRN Reason: Rx to Dose Lactobacillus Acidophilus (Acidophilus) 1 tablet PO DAILY [facility] Last Admin: 06/30/19 05:47 Dose: 1 tablet Documented by: Levothyroxine Sodium (Synthroid) 25 mcg PO DAILY [facility] Last Admin: 06/30/19 05:47 Dose: 25 mcg Documented by: Methylcellulose (Citrucel) 2 gm PO BID PRN PRN Reason: Constipation Nutritional Formula (Teofilo - [place] Flavor) [facility] Last Admin: 06/30/19 17:21 Dose: 1 packet Documented by: Pantoprazole Sodium (Protonix) 40 mg PO 1400 [facility] Last Admin: 06/30/19 13:53 Dose: 40 mg Documented by: Polyethylene Glycol (Miralax) 17 gm PO BID [facility] Last Admin: 06/30/19 17:21 Dose: Not Given Documented by: Polysaccharide Iron Complex (Ferrex 150) [facility] Last Admin: 06/30/19 09:13 Dose: 150 mg Documented by: Potassium Chloride (K-Dur) 40 meq PO DAILY [facility] Last Admin: 06/30/19 05:46 Dose: 40 meq Documented by: Sodium Chloride () 10 - 40 ml IV UD PRN PRN Reason: Open End PICC Flush Last Admin: 06/16/19 16:11 Dose: 10 ml Documented by: Sodium Chloride (0.9% Nacl (Sterile) Posiflush) 10 - 40 ml IV UD PRN PRN Reason: Port access or dressing change Medical Necessity - Tobacco Use Smoking Status: Former smoker Tobacco Use: Non-smoker Assessment/Plan All Active Problems (Last Updated 04/18/19 @ 13:58 by PAPI Jaramillo) Back pain (Acute) Heart murmur (Acute) Debility (Acute) Atrial fibrillation with RVR (Resolved) Clostridium difficile colitis (Resolved) Clostridium difficile infection (Resolved) Hypertension (Resolved) Rhabdomyolysis (Resolved) 1. Sacral pressure sore, Stage IV. 2. Osteomyelitis. 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 5. s/p excision sacral pressure sore, Stage IV, with partial ostectomy for osteomyelitis and reconstruction with lumbar bilobed fasciocutaneous transpo sition flap (255 cm2) and placement of AmnioFill placental connective tissue powder, 1000 mg. 6. Anemia of chronic disease, acute on chronic. Incisions are dry and intact except for small wound breakdown in the sacral area. Granulation tissue present. Superficial. No exposed bone. Was getting Silver dressing changes daily. Rest of flap is soft and healing satisfactory. Small ulceration almost healed. Dry dressing was applied today as the Silver was drying out the ulcer. Massage rest of incisions with skin lotion to help soften up the scars. Patient has been able to go to the bathroom and sit in a chair. She has finished the Vancomycin for osteomyelitis and MRSA. She is still taking Augmentin for E. coli from a culture on 05/23/19. She will continue the Augmentin until 07/04/19. Now that the IV antibiotics are completed, she has been working with PT for ambulation and strengthening. Once she is steady on her feet, she can be discharged. The maier will be removed the day before discharge. After discharge, followup at [facility].
[2019-07-01] MEDS: Acetaminophen 500 MG Tablet 1000 MG PO ×4 (05:48→23:44)
[2019-07-01] MEDS: Docusate Sodium 100 MG Capsule PO ×2 (06:05→17:47)
[2019-07-01] MEDS: Enoxaparin 40 MG/0.4 ML Syringe SC (06:05)
[2019-07-01] MEDS: Gabapentin 600 MG Tablet PO ×3 (06:06→22:12)
[2019-07-01] MEDS: Polyethylene Glycol 3350 17 GM PACKET PO (06:06)
[2019-07-01] MEDS: Levothyroxine 25 MCG TABLET PO (06:07)
[2019-07-01] MEDS: Iron Polysaccharide Complex 150 MG CAPSULE PO (08:06)
[2019-07-01] MEDS: Amox/Clavulanate 875 MG Tablet PO ×2 (08:06→17:46)
[2019-07-01] MEDS: Pantoprazole Sodium 40 MG Tablet PO (12:53)
[2019-07-01 16:00] VITALS: BP 164/98; PULSE 89; RESP 18; TEMP 36.4; O2SAT 93
[2019-07-02] MEDS: Baclofen 10 MG Tablet PO (03:30)
[2019-07-02] MEDS: Gabapentin 600 MG Tablet PO ×3 (05:49→22:35)
[2019-07-02] MEDS: Enoxaparin 40 MG/0.4 ML Syringe SC (05:49)
[2019-07-02] MEDS: Levothyroxine 25 MCG TABLET PO (05:49)
[2019-07-02] MEDS: Polyethylene Glycol 3350 17 GM PACKET PO ×2 (05:49→17:08)
[2019-07-02] MEDS: Acetaminophen 500 MG Tablet 1000 MG PO ×4 (05:49→23:46)
[2019-07-02] MEDS: Docusate Sodium 100 MG Capsule PO ×2 (05:49→17:08)
[2019-07-02] MEDS: Amox/Clavulanate 875 MG Tablet PO ×2 (07:54→17:08)
[2019-07-02] MEDS: Iron Polysaccharide Complex 150 MG CAPSULE PO (07:54)
[2019-07-02 15:29] VITALS: BP 131/85; PULSE 98; RESP 19; TEMP 35.8; O2SAT 91
[2019-07-02] MEDS: Pantoprazole Sodium 40 MG Tablet PO (15:37)
[2019-07-03] MEDS: Baclofen 10 MG Tablet PO (04:21)
--- NOTE | 2019-07-03 05:45 | NURSING ---
Pt complaint of Left heel hurting. Area noted to be blanchable but very red. Old pressure area noted. Pt refusing to roll to the RT side to relieve it from laying against the bed. Pt refusing to put pillow under hill to relieve pressure. Educated on importance to elevating it. Pt stating I know I move it around sometimes.
[2019-07-03] MEDS: Enoxaparin 40 MG/0.4 ML Syringe SC (05:49)
[2019-07-03] MEDS: Gabapentin 600 MG Tablet PO ×3 (05:49→21:11)
[2019-07-03] MEDS: Docusate Sodium 100 MG Capsule PO ×2 (05:49→17:06)
[2019-07-03] MEDS: Levothyroxine 25 MCG TABLET PO (05:49)
[2019-07-03] MEDS: Acetaminophen 500 MG Tablet 1000 MG PO ×4 (05:50→23:47)
[2019-07-03] MEDS: Iron Polysaccharide Complex 150 MG CAPSULE PO (07:54)
[2019-07-03] MEDS: Amox/Clavulanate 875 MG Tablet PO ×2 (07:54→17:06)
[2019-07-03] MEDS: Pantoprazole Sodium 40 MG Tablet PO (14:56)
--- NOTE | 2019-07-03 15:08 | PCM.PN.RX ---
<Ilana Mcmillan M - Last Filed: 07/03/19 15:08> Progress Note - Pharmacy Subjective: TCU Monthly Progress Note Objective: Allergies bee venom protein (honey bee) Allergy (Verified 04/25/19 09:26) Angioedema metaxalone [From Skelaxin] Allergy (Verified 04/25/19 09:26) Swelling Current Medications Generic Name Dose Route Start Last Admin Trade Name Freq PRN Reason Stop Dose Admin Acetaminophen 1,000 mg 06/24/19 23:00 07/03/19 11:45 Tylenol PO 1,000 mg Q6H ELOISA Administration Amoxicillin/Clavulanate Potassium 875 mg 05/25/19 17:00 07/03/19 07:54 Augmentin Tablet PO 07/04/19 17:01 875 mg BIDCM ELOISA Administration Baclofen 10 mg 04/28/19 17:38 07/03/19 04:21 Lioresal PO 10 mg TID PRN Administration back pain Calcium Carbonate 500 mg 06/03/19 08:05 06/26/19 22:53 Tums PO 500 mg Q4H PRN PRN Administration INDIGESTION Docusate Sodium 100 mg 04/28/19 18:00 07/03/19 05:49 Colace PO 100 mg BID ELOISA Administration Enoxaparin Sodium 40 mg 04/29/19 06:00 07/03/19 05:49 Lovenox SC 40 mg DAILY@0600 ELOISA Administration Gabapentin 600 mg 06/13/19 22:00 07/03/19 14:56 Neurontin PO 600 mg TID ELOISA Administration Heparin Sodium (Beef Lung) 50 units 04/28/19 17:07 05/04/19 12:31 IV 50 units UD PRN Administration PICC Line Heparin Flush Sodium Chloride 250 mls @ 15 mls/hr 04/28/19 21:28 06/06/19 20:38 IV Infused .[id number] PRN Infusion Saline Flush Vancomycin IV Pharmacy to Dose 500 mls @ 250 mls/hr 04/29/19 09:07 1 ea/ Sodium Chloride IV X1 PRN Rx to Dose Protocol Lactobacillus Acidophilus 1 tablet 04/29/19 06:00 07/03/19 05:49 Acidophilus PO 1 tablet DAILY ELOISA Administration Levothyroxine Sodium 25 mcg 04/29/19 06:00 01/30/20 05:49 Synthroid PO 25 mcg DAILY ELOISA Administration Methylcellulose 2 gm 06/05/19 08:24 Citrucel PO BID PRN Constipation Nutritional Formula 1 packet 04/29/19 08:00 07/03/19 07:54 Teofilo - [place] Flavor PO 1 packet BIDCM ELOISA Administration Pantoprazole Sodium 40 mg 04/29/19 14:00 07/03/19 14:56 Protonix PO 40 mg 1400 ELOISA Administration Polyethylene Glycol 17 gm 04/28/19 18:00 07/03/19 05:49 Miralax PO Not Given BID ELOISA Polysaccharide Iron Complex 150 mg 04/29/19 08:00 07/03/19 07:54 Ferrex 150 PO 150 mg DAILYCM ELOISA Administration Potassium Chloride 40 meq 04/29/19 06:00 07/03/19 05:49 K-Dur PO 40 meq DAILY ELOISA Administration Sodium Chloride 10 - 40 ml 04/28/19 17:07 06/16/19 16:11 IV 10 ml UD PRN Administration Open End PICC Flush Sodium Chloride 10 - 40 ml 04/28/19 17:07 0.9% Nacl (Sterile) Posiflush IV UD PRN Port access or dressing change Problem List (Last Updated 04/18/19 @ 13:58 by PAPI Jaramillo) Pressure ulcer of sacral region, stage 4 (Chronic) Sacral osteomyelitis (Chronic) Anxiety (Chronic) Anemia, chronic disease (Chronic) Body mass index (bmi) 36.0-36.9, adult (Chronic) Vital Signs Temp Pulse Resp BP Pulse Ox 96.5 F L 98 19 H 131/85 H 91 07/02/19 15:29 07/02/19 15:29 07/02/19 15:29 07/02/19 15:29 07/02/19 15:29 Oxygen Delivery Method Room Air Weight: 99.422 kg Body Mass Index (BMI) 36.8 Sodium 141 mmol/L (136-145) 06/19/19 05:20 Potassium 4.0 mmol/L (3.5-5.1) 06/19/19 05:20 Chloride 108 mmol/L (98-107) H 06/19/19 05:20 Carbon Dioxide 27.0 mmol/L (21.0-32.0) 06/19/19 05:20 Anion Gap 6 (5-15) 06/19/19 05:20 BUN 19 mg/dL (7-18) H 06/19/19 05:20 Creatinine 0.56 mg/dL (0.55-1.02) 06/19/19 05:20 Est GFR (MDRD) Af Amer 139 mL/min (>60) 06/19/19 05:20 Est GFR (MDRD) Non-Af 115 mL/min (>60) 06/19/19 05:20 BUN/Creatinine Ratio 34.1 RATIO (10-20) H 06/19/19 05:20 Glucose 98 mg/dL (74-106) 06/19/19 05:20 Vancomycin Trough 18.4 ug/mL (5.0-15.0) H 06/04/19 09:30 Random Vancomycin 12.0 ug/mL (0.0-15.0) 05/05/19 14:30 Assessment: 1. Pain: acetaminophen 1000mg PO Q6H. Please continue to monitor for increased pain. 2. Sacral osteomyelitis: augmentin 875mg PO BID thru 07/04/19. Please continue to monitor for diarrhea, S/S of worsening infection. 3. DVT prophylaxis: enoxaparin 40mg SC daily. Please continue to monitor for S/S of bleeding, renal function and platelets. 4. GERD: pantoprazole 40mg PO daily, calcium carbonate 1000mg PO Q4H PRN indigestion. Please continue to monitor for indigestion and PRN usage. 5. Hypothyroidism: levothyroxine 25mcg PO daily. Please continue to monitor TSH and for S/S of hypo/hyperthyroidism. 6. Neuropathic pain: gabapentin 600mg PO TID. Please continue to monitor for confusion and renal function. 7. Iron deficiency anemia: Ferrex 150mg PO DAILYCM. Please continue to monitor hemoglobin and for dark stools. 8. Muscle spasm: baclofen 10mg PO TID PRN back pain. Please continue to monitor for back pain and PRN usage. 9. Hypokalemia: potassium chloride 40mEq PO daily. Please continue to monitor potassium levels. 10. Vitamin Deficiencies/overall nutrition: lactobacillus acidophilus 1T PO daily. Please continue to monitor. Psychotropic Medications: None Unnecessary Medications: None *Bowel Regimen: Miralax 17gm PO BID, docusate 100mg PO BID, Citrucel 2g PO BID PRN constipation. Please consider changing Miralax from scheduled BID to daily PRN constipation. Patient has not received 3/4 doses due to loose stool. Thanks. Date of Note:: 07/03/19 - Provider Comments Provider responsibility: Provider responsible to enter orders to implement recommendations <Chema Sanchez Chi - Last Filed: 07/03/19 15:53> Progress Note - Pharmacy Subjective: [] Objective: Allergies bee venom protein (honey bee) Allergy (Verified 04/25/19 09:26) Angioedema metaxalone [From Skelaxin] Allergy (Verified 04/25/19 09:26) Swelling Current Medications Generic Name Dose Route Start Last Admin Trade Name Freq PRN Reason Stop Dose Admin Acetaminophen 1,000 mg 06/24/19 23:00 07/03/19 11:45 Tylenol PO 1,000 mg Q6H ELOISA Administration Amoxicillin/Clavulanate Potassium 875 mg 05/25/19 17:00 07/03/19 07:54 Augmentin Tablet PO 07/04/19 17:01 875 mg BIDCM ELOISA Administration Baclofen 10 mg 04/28/19 17:38 07/03/19 04:21 Lioresal PO 10 mg TID PRN Administration back pain Calcium Carbonate 500 mg 06/03/19 08:05 06/26/19 22:53 Tums PO 500 mg Q4H PRN PRN Administration INDIGESTION Docusate Sodium 100 mg 04/28/19 18:00 07/03/19 05:49 Colace PO 100 mg BID ELOISA Administration Enoxaparin Sodium 40 mg 04/29/19 06:00 07/03/19 05:49 Lovenox SC 40 mg DAILY@0600 ELOISA Administration Gabapentin 600 mg 06/13/19 22:00 07/03/19 14:56 Neurontin PO 600 mg TID ELOISA Administration Heparin Sodium (Beef Lung) 50 units 04/28/19 17:07 05/04/19 12:31 IV 50 units UD PRN Administration PICC Line Heparin Flush Sodium Chloride 250 mls @ 15 mls/hr 04/28/19 21:28 06/06/19 20:38 IV Infused .[id number] PRN Infusion Saline Flush Lactobacillus Acidophilus 1 tablet 04/29/19 06:00 07/03/19 05:49 Acidophilus PO 1 tablet DAILY ELOISA Administration Levothyroxine Sodium 25 mcg 04/29/19 06:00 07/03/19 05:49 Synthroid PO 25 mcg DAILY ELOISA Administration Methylcellulose 2 gm 06/05/19 08:24 Citrucel PO BID PRN Constipation Nutritional Formula 1 packet 04/29/19 08:00 07/03/19 07:54 Teofilo - [place] Flavor PO 1 packet BIDCM ELOSIA Administration Pantoprazole Sodium 40 mg 04/29/19 14:00 07/03/19 14:56 Protonix PO 40 mg 1400 ELOISA Administration Polyethylene Glycol 17 gm 04/28/19 18:00 07/03/19 05:49 Miralax PO Not Given BID ELOISA Polysaccharide Iron Complex 150 mg 04/29/19 08:00 07/03/19 07:54 Ferrex 150 PO 150 mg DAILYCM ELOISA Administration Potassium Chloride 40 meq 04/29/19 06:00 07/03/19 05:49 K-Dur PO 40 meq DAILY ELOISA Administration Sodium Chloride 10 - 40 ml 04/28/19 17:07 06/16/19 16:11 IV 10 ml UD PRN Administration Open End PICC Flush Sodium Chloride 10 - 40 ml 04/28/19 17:07 0.9% Nacl (Sterile) Posiflush IV UD PRN Port access or dressing change Problem List (Last Updated 04/18/19 @ 13:58 by PAPI Jaramillo) Pressure ulcer of sacral region, stage 4 (Chronic) Sacral osteomyelitis (Chronic) Anxiety (Chronic) Anemia, chronic disease (Chronic) Body mass index (bmi) 36.0-36.9, adult (Chronic) Vital Signs Temp Pulse Resp BP Pulse Ox 96.5 F L 98 19 H 131/85 H 91 07/02/19 15:29 07/02/19 15:29 07/02/19 15:29 07/02/19 15:29 07/02/19 15:29 Oxygen Delivery Method Room Air Weight: 99.422 kg Body Mass Index (BMI) 36.8 Sodium 141 mmol/L (136-145) 06/19/19 05:20 Potassium 4.0 mmol/L (3.5-5.1) 06/19/19 05:20 Chloride 108 mmol/L (98-107) H 06/19/19 05:20 Carbon Dioxide 27.0 mmol/L (21.0-32.0) 06/19/19 05:20 Anion Gap 6 (5-15) 06/19/19 05:20 BUN 19 mg/dL (7-18) H 06/19/19 05:20 Creatinine 0.56 mg/dL (0.55-1.02) 06/19/19 05:20 Est GFR (MDRD) Af Amer 139 mL/min (>60) 06/19/19 05:20 Est GFR (MDRD) Non-Af 115 mL/min (>60) 06/19/19 05:20 BUN/Creatinine Ratio 34.1 RATIO (10-20) H 06/19/19 05:20 Glucose 98 mg/dL (74-106) 06/19/19 05:20 Vancomycin Trough 18.4 ug/mL (5.0-15.0) H 06/04/19 09:30 Random Vancomycin 12.0 ug/mL (0.0-15.0) 05/05/19 14:30 Assessment/Plan: Psychotropic Medications: Unnecessary Medications: Bowel Regimen: - Provider Comments Provider responsibility: Provider responsible to enter orders to implement recommendations Provider Comments to Recommendations by Pharmacy: Agree
[2019-07-03 16:00] VITALS: BP 116/65; PULSE 79; RESP 20; TEMP 36.5; O2SAT 94
[2019-07-04] MEDS: Levothyroxine 25 MCG TABLET PO (05:54)
[2019-07-04] MEDS: Gabapentin 600 MG Tablet PO ×3 (05:54→21:19)
[2019-07-04] MEDS: Docusate Sodium 100 MG Capsule PO ×2 (05:54→17:49)
[2019-07-04] MEDS: Acetaminophen 500 MG Tablet 1000 MG PO ×4 (05:54→23:48)
[2019-07-04] MEDS: Enoxaparin 40 MG/0.4 ML Syringe SC (05:55)
[2019-07-04] MEDS: Amox/Clavulanate 875 MG Tablet PO ×2 (08:52→17:49)
[2019-07-04] MEDS: Iron Polysaccharide Complex 150 MG CAPSULE PO (08:52)
[2019-07-04] MEDS: Pantoprazole Sodium 40 MG Tablet PO (13:44)
--- NOTE | 2019-07-04 15:11 | PCM.PN.SRG ---
Subjective: Resting comfortably in bed. She states she is doing well with her therapy. - Physical Exam Vitals/I&O's: Vital Signs Temp Pulse Resp BP Pulse Ox 97.7 F L 79 20 H 116/65 94 07/03/19 16:00 07/03/19 16:00 07/03/19 16:00 07/03/19 16:00 07/03/19 16:00 Oxygen Delivery Method Room Air Weight: 219 lb 3 oz Body Mass Index (BMI) 36.8 Intake and Output for Last 24 Hours 07/02/19 07/03/19 07/04/19 23:59 23:59 23:59 Intake Total 720 / 720 840 / 840 720 / 720 Output Total 2400 / 2400 2049 / 0 1950 / 1950 Balance -1680 / -1680 -1210 / -1210 -1230 / -1230 General: Alert, Oriented x3, Cooperative HEENT: Atraumatic Oral: Moist Mucosa Lungs: Normal air movement Cardiovascular: Regular rate Abdomen: Obese Extremities: Capillary Refill Less than 3 Seconds Skin: Ulcer/ Wound - Incision - back incision is healed except for small area of wound breakdown in the sacral area that has granulation tissue present and is almost healed. Dry dressing in place. No drainage present. Musculoskeletal: Arthritic Changes - left hip pain Neurological: Neuro grossly intact Psych/Mental Status: Normal Affect Current Medications Acetaminophen (Tylenol) 1,000 mg PO Q6H [facility] Last Admin: 07/04/19 11:46 Dose: 1,000 mg Documented by: Amoxicillin/Clavulanate Potassium ([facility]in Tablet) [facility] Stop: 07/04/19 17:01 Last Admin: 07/04/19 08:52 Dose: 875 mg Documented by: Baclofen (Lioresal) 10 mg PO TID PRN PRN Reason: back pain Last Admin: 07/03/19 04:21 Dose: 10 mg Documented by: Calcium Carbonate (Tums) 500 mg PO Q4H PRN PRN PRN Reason: INDIGESTION Last Admin: 06/26/19 22:53 Dose: 500 mg Documented by: Docusate Sodium (Colace) 100 mg PO BID [facility] Last Admin: 07/04/19 05:54 Dose: 100 mg Documented by: Enoxaparin Sodium (Lovenox) 40 mg SC DAILY@0600 [facility] Last Admin: 07/04/19 05:55 Dose: 40 mg Documented by: Gabapentin (Neurontin) 600 mg PO TID [facility] Last Admin: 07/04/19 13:44 Dose: 600 mg Documented by: Heparin Sodium (Beef Lung) () 50 units IV UD PRN PRN Reason: PICC Line Heparin Flush Last Admin: 05/04/19 12:31 Dose: 50 units Documented by: Sodium Chloride () 250 mls @ 15 mls/hr IV .[id number] PRN PRN Reason: Saline Flush Last Infusion: 06/06/19 20:38 Dose: Infused Documented by: Lactobacillus Acidophilus (Acidophilus) 1 tablet PO DAILY [facility] Last Admin: 07/04/19 05:54 Dose: 1 tablet Documented by: Levothyroxine Sodium (Synthroid) 25 mcg PO DAILY [facility] Last Admin: 07/04/19 05:54 Dose: 25 mcg Documented by: Methylcellulose (Citrucel) 2 gm PO BID PRN PRN Reason: Constipation Nutritional Formula (Teofilo - [place] Flavor) [facility] Last Admin: 07/04/19 08:53 Dose: 1 packet Documented by: Pantoprazole Sodium (Protonix) 40 mg PO 1400 [facility] Last Admin: 07/04/19 13:44 Dose: 40 mg Documented by: Polyethylene Glycol (Miralax) 17 gm PO BID [facility] Last Admin: 07/04/19 05:55 Dose: Not Given Documented by: Polysaccharide Iron Complex (Ferrex 150) 150 mg PO DAILYCM [facility] Last Admin: 07/04/19 08:52 Dose: 150 mg Documented by: Potassium Chloride (K-Dur) 40 meq PO DAILY [facility] Last Admin: 07/04/19 05:55 Dose: 40 meq Documented by: Sodium Chloride () 10 - 40 ml IV UD PRN PRN Reason: Open End PICC Flush Last Admin: 06/16/19 16:11 Dose: 10 ml Documented by: Sodium Chloride (0.9% Nacl (Sterile) Posiflush) 10 - 40 ml IV UD PRN PRN Reason: Port access or dressing change Medical Necessity - Tobacco Use Smoking Status: Former smoker Tobacco Use: Non-smoker Assessment/Plan All Active Problems (Last Updated 04/18/19 @ 13:58 by PAPI Jaramillo) Back pain (Acute) Heart murmur (Acute) Debility (Acute) Atrial fibrillation with RVR (Resolved) Clostridium difficile colitis (Resolved) Clostridium difficile infection (Resolved) Hypertension (Resolved) Rhabdomyolysis (Resolved) 1. Sacral pressure sore, Stage IV. 2. Osteomyelitis. 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 5. s/p excision sacral pressure sore, Stage IV, with partial ostectomy for osteomyelitis and reconstruction with lumbar bilobed fasciocutaneous transposition flap (255 cm2) and placement of AmnioFill placental connective tissue powder, 1000 mg. 6. Anemia of chronic disease, acute on chronic. Incisions are dry and intact except for small wound breakdown in the sacral area. Granulation tissue present. Superficial. No exposed bone. Was getting Silver dressing changes daily. Rest of flap is soft and healing satisfactory. Small ulceration almost healed. Dry dressing being applied daily. Massage rest of incisions with skin lotion to help soften up the scars. Patient has been able to go to the bathroom and sit in a chair. She has finished the Vancomycin for osteomyelitis and MRSA. She is still taking Augmentin for E. coli from a culture on 05/23/19, she should complete the Augmentin today. Now that the IV antibiotics are completed, she has been working with PT for ambulation and strengthening. Once she is steady on her feet, she can be discharged. The maier will be removed the day before discharge. After discharge, followup at the [facility].
[2019-07-04 15:37] VITALS: BP 124/71; PULSE 67; RESP 17; TEMP 36.9; O2SAT 93
[2019-07-04 21:20] VITALS: O2SAT 97
[2019-07-05] MEDS: Docusate Sodium 100 MG Capsule PO ×2 (05:54→17:44)
[2019-07-05] MEDS: Enoxaparin 40 MG/0.4 ML Syringe SC (05:54)
[2019-07-05] MEDS: Levothyroxine 25 MCG TABLET PO (05:54)
[2019-07-05] MEDS: Acetaminophen 500 MG Tablet 1000 MG PO ×4 (05:55→23:55)
[2019-07-05] MEDS: Gabapentin 600 MG Tablet PO ×3 (05:55→21:37)
[2019-07-05] MEDS: Iron Polysaccharide Complex 150 MG CAPSULE PO (08:00)
[2019-07-05] MEDS: Pantoprazole Sodium 40 MG Tablet PO (13:56)
[2019-07-05 15:26] VITALS: BP 114/51; PULSE 73; RESP 18; TEMP 36.6; O2SAT 98
[2019-07-05 21:45] VITALS: O2SAT 98
[2019-07-06] MEDS: Acetaminophen 500 MG Tablet 1000 MG PO ×4 (05:56→23:57)
[2019-07-06] MEDS: Enoxaparin 40 MG/0.4 ML Syringe SC (06:02)
[2019-07-06] MEDS: Gabapentin 600 MG Tablet PO ×3 (06:04→21:56)
[2019-07-06] MEDS: Docusate Sodium 100 MG Capsule PO ×2 (06:04→17:49)
[2019-07-06] MEDS: Levothyroxine 25 MCG TABLET PO (06:04)
[2019-07-06] MEDS: Iron Polysaccharide Complex 150 MG CAPSULE PO (07:44)
[2019-07-06 10:11] VITALS: PULSE 84; RESP 16; O2SAT 93
[2019-07-06] MEDS: Pantoprazole Sodium 40 MG Tablet PO (13:34)
[2019-07-06 14:13] VITALS: BP 109/46; PULSE 79; RESP 18; TEMP 36.9; O2SAT 98
[2019-07-07] MEDS: Gabapentin 600 MG Tablet PO ×3 (06:01→20:46)
[2019-07-07] MEDS: Enoxaparin 40 MG/0.4 ML Syringe SC (06:01)
[2019-07-07] MEDS: Levothyroxine 25 MCG TABLET PO (06:02)
[2019-07-07] MEDS: Docusate Sodium 100 MG Capsule PO ×2 (06:02→18:01)
[2019-07-07] MEDS: Acetaminophen 500 MG Tablet 1000 MG PO ×3 (06:02→18:00)
[2019-07-07] MEDS: Iron Polysaccharide Complex 150 MG CAPSULE PO (08:14)
--- NOTE | 2019-07-07 12:01 | NURSING ---
wound photo: sacrum
[2019-07-07 14:33] VITALS: BP 141/73; PULSE 94; RESP 20; TEMP 36.1; O2SAT 98
--- NOTE | 2019-07-07 14:46 | CASEMGMT ---
Social Work Spoke with pt about DC plans. Pt requesting to DC home 07/12, pt would like to be restarted with [facility]. Referral made for PT/OT/SN. No DME needs. Plan: DC home 07/12 with [facility] PT/OT/SN, no DME needs Sheyla Abbasi, Social work supervisor international reservations Natalie Fry, [employer]
[2019-07-07] MEDS: Pantoprazole Sodium 40 MG Tablet PO (15:02)
--- NOTE | 2019-07-07 15:04 | CHAPLAIN ---
Type of Pastoral Visit ___ Initial Visit _x__ Follow-up Visit ___ On-call Visit ___ General Patient Visit ___ Spiritual Assessment ___ Family Conference ___ Bereavement ___ Rapid Response ___ Code Blue ___ Other (describe below) Pastoral Care Referral From _x__ Patient ___ Family ___ Nurse ___ Physician ___ Head Silverman ___ Clean Rice Broker ___ Other (describe below) Sacrament/Intervention _x__ Active listening ___ Anointing ___ Alevism ___ Bereavement ___ Communion _x__ Mayra exploration ___ _x__ Life review _x__ Prayer ___ Reconciliation ___ Sacrament of Sick ___ Supportive presence ___ Wedding ___ Other (describe below) Pastoral Comments patient states she is going home at end of week; pt expresses excitement and some anxiety after many weeks in hospital; pt says that she has enjoyed spiritual care and time to ask my questions
--- NOTE | 2019-07-07 16:04 | CASEMGMT ---
Social Work Pt requested to speak with SW. Pt very tearful and visibly anxious with plans to DC home. Provided emotional support, validation of feelings, and assured pt has interventions in place to assist with a smooth transition home. Pt stated she has a high bed at home and needed to use a step stool to get in. Pt cannot raise leg into bed. Notified PT to work further on bed mobility and use leg oyster grader. Offered to see if pt would qualify for hospital bed and trapeze d/t wounds and positioning. Left message with Sakina. Praised pt for being empowered in setting her own DC date and feeling confident and ready to DC home after long stay in hospital. Assured pt IDT agreeable with pt decision. Pt became more calm and appreciative of assistance. Will continue to follow. Natalie Fry, DOCK OR PIER LABORER RELIEF SALESPERSON
--- NOTE | 2019-07-07 20:16 | DCINST_ITS ---
- Discharge Diagnoses Current Active Problems: Current Active and Chronic Problems (Last Updated 04/18/19 @ 13:58 by PAPI Jaramillo) Pressure ulcer of sacral region, stage 4 (Chronic) Sacral osteomyelitis (Chronic) Anxiety (Chronic) Anemia, chronic disease (Chronic) Body mass index (bmi) 36.0-36.9, adult (Chronic) You will use the following diet at home:: No restrictions, Regular Your food should be the consistency of: Regular Your liquids should be the consistency of: Regular/Thin Discharge Activity: Return to Normal Activity, May Shower, Use Walker Weight Bearing Status: Weight bearing as tolerated Call your doctor if you observe: Fever of 101 or Higher, Inability to urinate, Inability to have a bowel movement, Shortness of breath, Chest pain, Uncontrolled pain Allergies/Adverse Reactions: Allergies bee venom protein (honey bee) Allergy (Verified 04/25/19 09:26) Angioedema metaxalone [From Skelaxin] Allergy (Verified 04/25/19 09:26) Swelling Medications to take at Discharge Levothyroxine [Synthroid] 25 mcg PO DAILY 03/02/17 Omeprazole 40 mg PO 1400 04/11/18 Lactobacillus Acidophilus/Fos [Acidophilus Probiotic Tablet] 1 ea PO DAILY 03/12/19 Polyethylene Glycol 3350 [Miralax] 17 gm PO BID 04/28/19 Acetaminophen [Tylenol] 1,000 mg PO Q6H tab 07/07/19 Baclofen [Lioresal] 10 mg PO TID PRN #90 tab 07/07/19 Calcium Carbonate [Tums] 500 mg PO Q4H PRN PRN tab 07/07/19 Gabapentin [Neurontin] 600 mg PO TID #90 tab 07/07/19 Iron Polysaccharide Complex [Ferrex 150] 150 mg PO DAILYCM #30 cap 07/07/19 Nutritional Supplement [Teofilo - ORANGE FLAVOR] 1 packet PO BIDCM #60 packet 07/07/19 Potassium Chloride [K-Dur] 40 meq PO DAILY #60 tab 07/07/19 The following prescriptions were given: Iron Polysaccharide Complex [Ferrex 150] 150 mg PO DAILYCM #30 cap Transmission Status: Pending to [id number] Nutritional Supplement [Teofilo - ORANGE FLAVOR] 1 packet PO BIDCM #60 packet Transmission Status: Pending to [id number] Potassium Chloride [K-Dur] 40 meq PO DAILY #60 tab Transmission Status: Pending to [id number] Baclofen [Lioresal] 10 mg PO TID PRN #90 tab PRN Reason: back pain Transmission Status: Pending to [facility] Gabapentin [Neurontin] 600 mg PO TID #90 tab Transmission Status: Pending to [id number] Primary Care Physician: Chema Sanchez Chi, MD [Primary Care Provider] - Please follow up with your Primary Care Physician in: 1 week. Test Results: Test results from this visit will be discussed in further detail at your follow- up appointment, if applicable. Please Follow Up With: Regino Hansen MD When: 1 week. Proposed Discharge Date: 07/12/19
--- NOTE | 2019-07-07 20:18 | PCM.DC.SUM ---
Discharge Date and Diagnosis Date of Admission: 04/28/19 Date of Discharge: 07/12/19 - Secondary Discharge Diagnosis Chronic Problems (Last Updated 04/18/19 @ 13:58 by PAPI Jaramillo) Pressure ulcer of sacral region, stage 4 (Chronic) Sacral osteomyelitis (Chronic) Anxiety (Chronic) Anemia, chronic disease (Chronic) Body mass index (bmi) 36.0-36.9, adult (Chronic) Aortic stenosis (Chronic) Hypertension (Chronic) Osteomyelitis (Chronic) Atrial fibrillation (Chronic) Back pain (Chronic) Methicillin resistant Staph aureus culture positive (Chronic) MRSA (methicillin resistant Staphylococcus aureus) infection (Chronic) Osteomyelitis of pelvis (Chronic) Constipation (Chronic) Hypergranulation (Chronic) Acute osteomyelitis of sacrum (Chronic) Surgical wound present (Chronic) Secondary pulmonary arterial hypertension (Chronic) Non-rheumatic tricuspid valve insufficiency (Chronic) Preop cardiovascular exam (Chronic) Abnormal electrocardiogram (Chronic) Essential (primary) hypertension (Chronic) Colovaginal fistula (Chronic) Non-healing surgical wound (Chronic) Pressure ulcer of right heel, stage 3 (Chronic) Pressure ulcer of left heel, stage 3 (Chronic) Morbid obesity with BMI of 40.0-44.9, adult (Chronic) GERD (gastroesophageal reflux disease) (Chronic) Depression (Chronic) Hypothyroidism (Chronic) Pressure ulcer of sacral region, stage 4 (Chronic) Failure to thrive (Chronic) Neuropathy (Chronic) Hospital Course and Treatment Imaging Results: 04/28/19 17:27 Diet: Regular Diet Diet Comments: Please only send yogurt on AM tray. Consultations 04/28/19 22:09 Consult: Onc/Wound/precision instrument maker Routine Comment: Reason for Consult:: Pressure injury reconstruction Operations: None, - Procedures: None Summary of Care Provided: The patient is a 69 year old Female with below past medical history chronic stage 4 sacral pressure, hospitalized underwent flap repair 04/25/[address] Hansen, admitted to TCU with debility, here for rehabilitation, strengthening, intravenous antibiotics, prior to discharge home alone. Discharge home alone. - Physical Exam Vitals/I&O's: Vital Signs Temp Pulse Resp BP Pulse Ox 96.9 F L 94 20 H 141/73 H 98 07/07/19 14:33 07/07/19 14:33 07/07/19 14:33 07/07/19 14:33 07/07/19 14:33 Oxygen Delivery Method Room Air Weight: 99.422 kg Body Mass Index (BMI) 36.8 Intake and Output for Last 24 Hours 07/05/19 07/06/19 07/07/19 23:59 23:59 23:59 Intake Total 1200 / 1200 1440 / 1440 960 / 960 Output Total 2400 / 2400 3400 / 3400 1900 / 1900 Balance -1200 / -1200 -1960 / -1960 -940 / -940 Current Medications Acetaminophen (Tylenol) 1,000 mg PO Q6H [facility] Last Admin: 07/07/19 18:00 Dose: 1,000 mg Documented by: Baclofen (Lioresal) 10 mg PO TID PRN PRN Reason: back pain Last Admin: 07/03/19 04:21 Dose: 10 mg Documented by: Calcium Carbonate (Tums) 500 mg PO Q4H PRN PRN PRN Reason: INDIGESTION Last Admin: 06/26/19 22:53 Dose: 500 mg Documented by: Docusate Sodium (Colace) 100 mg PO BID [facility] Last Admin: 07/07/19 18:01 Dose: 100 mg Documented by: Enoxaparin Sodium (Lovenox) 40 mg SC DAILY@0600 [facility] Last Admin: 07/07/19 06:01 Dose: 40 mg Documented by: Gabapentin (Neurontin) 600 mg PO TID [facility] Last Admin: 07/07/19 15:02 Dose: 600 mg Documented by: Heparin Sodium (Beef Lung) () 50 units IV UD PRN PRN Reason: PICC Line Heparin Flush Last Admin: 05/04/19 12:31 Dose: 50 units Documented by: Sodium Chloride () 250 mls @ 15 mls/hr IV .[id number] PRN PRN Reason: Saline Flush Last Infusion: 06/06/19 20:38 Dose: Infused Documented by: Lactobacillus Acidophilus (Acidophilus) 1 tablet PO DAILY [facility] Last Admin: 07/07/19 06:02 Dose: 1 tablet Documented by: Levothyroxine Sodium (Synthroid) 25 mcg PO DAILY [facility] Last Admin: 07/07/19 06:02 Dose: 25 mcg Documented by: Methylcellulose (Citrucel) 2 gm PO BID PRN PRN Reason: Constipation Nutritional Formula (Teofilo - [place] Flavor) [facility] Admin: 07/07/19 17:59 Dose: 1 packet Documented by: Pantoprazole Sodium (Protonix) 40 mg PO 1400 [facility] Last Admin: 07/07/19 15:02 Dose: 40 mg Documented by: Polyethylene Glycol (Miralax) 17 gm PO BID [facility] Last Admin: 07/07/19 18:01 Dose: Not Given Documented by: Polysaccharide Iron Complex (Ferrex 150) [facility] Last Admin: 07/07/19 08:14 Dose: 150 mg Documented by: Potassium Chloride (K-Dur) 40 meq PO DAILY [facility] Last Admin: 07/07/19 06:00 Dose: 40 meq Documented by: Sodium Chloride () 10 - 40 ml IV UD PRN PRN Reason: Open End PICC Flush Last Admin: 06/16/19 16:11 Dose: 10 ml Documented by: Sodium Chloride (0.9% Nacl (Sterile) Posiflush) 10 - 40 ml IV UD PRN PRN Reason: Port access or dressing change Discharge Diet: No Restrictions Discharge Activity: Return to Normal Activity, May Shower, Use Walker Weight Bearing Status: Weight bearing as tolerated Call your doctor if you observe: Fever of 101 or Higher, Inability to urinate, Inability to have a bowel movement, Shortness of breath, Chest pain, Uncontrolled pain Home Medications: Medications to take at Discharge Levothyroxine [Synthroid] 25 mcg PO DAILY 03/02/17 Omeprazole 40 mg PO 1400 04/11/18 Lactobacillus Acidophilus/Fos [Acidophilus Probiotic Tablet] 1 ea PO DAILY 03/12/19 Polyethylene Glycol 3350 [Miralax] 17 gm PO BID 04/28/19 Acetaminophen [Tylenol] 1,000 mg PO Q6H tab 07/07/19 Baclofen [Lioresal] 10 mg PO TID PRN #90 tab 07/07/19 Calcium Carbonate [Tums] 500 mg PO Q4H PRN PRN tab 07/07/19 Gabapentin [Neurontin] 600 mg PO TID #90 tab 07/07/19 Iron Polysaccharide Complex [Ferrex 150] 150 mg PO DAILYCM #30 cap 07/07/19 Nutritional Supplement [Teofilo - ORANGE FLAVOR] 1 packet PO BIDCM #60 packet 07/07/19 Potassium Chloride [K-Dur] 40 meq PO DAILY #60 tab 07/07/19 Following Prescrptions Were Given to Patient: Iron Polysaccharide Complex [Ferrex 150] 150 mg PO DAILYCM #30 cap Transmission Status: Pending to [facility]/pharmacy #[id number] Nutritional Supplement [Teofilo - ORANGE FLAVOR] 1 packet PO BIDCM #60 packet Transmission Status: Pending to [facility]/pharmacy #[id number] Potassium Chloride [K-Dur] 40 meq PO DAILY #60 tab Transmission Status: Pending to [facility]/pharmacy #[id number] Baclofen [Lioresal] 10 mg PO TID PRN #90 tab PRN Reason: back pain Transmission Status: Pending to [facility] Gabapentin [Neurontin] 600 mg PO TID #90 tab Transmission Status: Pending to [facility]/pharmacy #[id number] Primary Care Physician: Chema Sanchez Chi, MD [Primary Care Provider] - Please follow up with your Primary Care Physician in: 1 week. Please Follow Up With: Regino Hansen MD When: 1 week. Disposition: Home Minutes spent on discharge:: 30 Patient Condition:: Stable Medical Necessity - Tobacco Use Smoking Status: Former smoker Tobacco Use: Non-smoker Meaningful Use Info Meaningful Use Diagnoses (Choose all that apply): None applicable
[2019-07-08] MEDS: Gabapentin 600 MG Tablet PO ×3 (06:01→21:12)
[2019-07-08] MEDS: Levothyroxine 25 MCG TABLET PO (06:01)
[2019-07-08] MEDS: Enoxaparin 40 MG/0.4 ML Syringe SC (06:01)
[2019-07-08] MEDS: Docusate Sodium 100 MG Capsule PO ×2 (06:01→17:52)
[2019-07-08] MEDS: Acetaminophen 500 MG Tablet 1000 MG PO ×4 (06:03→18:01)
[2019-07-08] MEDS: Iron Polysaccharide Complex 150 MG CAPSULE PO (08:05)
[2019-07-08] MEDS: Polyethylene Glycol 3350 17 GM PACKET PO (11:54)
[2019-07-08] MEDS: Pantoprazole Sodium 40 MG Tablet PO (11:55)
[2019-07-08 15:56] VITALS: BP 139/80; PULSE 85; RESP 18; TEMP 36.4; O2SAT 94
[2019-07-09] MEDS: Acetaminophen 500 MG Tablet 1000 MG PO ×4 (00:01→18:03)
[2019-07-09] MEDS: Baclofen 10 MG Tablet PO (03:44)
[2019-07-09] MEDS: Levothyroxine 25 MCG TABLET PO (06:03)
[2019-07-09] MEDS: Gabapentin 600 MG Tablet PO ×3 (06:03→21:57)
[2019-07-09] MEDS: Polyethylene Glycol 3350 17 GM PACKET PO ×2 (06:03→17:54)
[2019-07-09] MEDS: Docusate Sodium 100 MG Capsule PO ×2 (06:03→17:54)
[2019-07-09] MEDS: Enoxaparin 40 MG/0.4 ML Syringe SC (06:03)
[2019-07-09] MEDS: Iron Polysaccharide Complex 150 MG CAPSULE PO (08:34)
[2019-07-09] MEDS: Pantoprazole Sodium 40 MG Tablet PO (13:19)
--- NOTE | 2019-07-09 18:13 | NURSING ---
MEDINA CATH REMOVED. R' HESITANT ABOUT REMOVAL, STILL STATING HOW CONVENIENT IT IS HAVING A MEDINA AND NOT WANTING TO HAVE TO GET UP TO VOID. BRIEF PLACED PER REQUEST AFTER REMOVAL. NOTIFIED DR. SCHMIDT THAT MEDINA WASN'T REMOVED UNTIL 1800 PER R' REQUEST, RECEIVED ORDER THAT SHE MAY BE STRAIGHT CATH'D IF NEEDED IF NO VOID OR BLADER SCAN >500CC. R' TOLERATED REMOVAL WELL.
[2019-07-10] MEDS: Acetaminophen 500 MG Tablet 1000 MG PO ×4 (00:02→18:05)
[2019-07-10] MEDS: Levothyroxine 25 MCG TABLET PO (06:03)
[2019-07-10] MEDS: Enoxaparin 40 MG/0.4 ML Syringe SC (06:03)
[2019-07-10] MEDS: Gabapentin 600 MG Tablet PO ×3 (06:04→22:08)
[2019-07-10] MEDS: Docusate Sodium 100 MG Capsule PO (06:05)
[2019-07-10] MEDS: Iron Polysaccharide Complex 150 MG CAPSULE PO (08:18)
--- NOTE | 2019-07-10 11:28 | MDS.RN ---
Pain interview for breann 07/12/19 completed.
[2019-07-10] MEDS: Pantoprazole Sodium 40 MG Tablet PO (13:26)
[2019-07-10 13:32] VITALS: BP 132/67; PULSE 79; RESP 16; TEMP 36.4; O2SAT 93
[2019-07-11] MEDS: Acetaminophen 500 MG Tablet 1000 MG PO ×4 (00:08→18:06)
[2019-07-11] MEDS: Enoxaparin 40 MG/0.4 ML Syringe SC (06:03)
[2019-07-11] MEDS: Docusate Sodium 100 MG Capsule PO ×2 (06:04→18:07)
[2019-07-11] MEDS: Levothyroxine 25 MCG TABLET PO (06:04)
[2019-07-11] MEDS: Gabapentin 600 MG Tablet PO ×3 (06:06→21:03)
[2019-07-11] MEDS: Iron Polysaccharide Complex 150 MG CAPSULE PO (08:17)
--- NOTE | 2019-07-11 10:02 | CASEMGMT ---
Social Work BIMs and PHQ-9 completed for MDS assessment. Sheyla Abbasi, social work manager intern Natalie Fry, PROCESS SAFETY ENGINEER EVENT EXECUTIVE
[2019-07-11] MEDS: Pantoprazole Sodium 40 MG Tablet PO (13:00)
[2019-07-11 14:35] VITALS: BP 148/83; PULSE 88; RESP 20; TEMP 36.9; O2SAT 96
[2019-07-12] MEDS: Acetaminophen 500 MG Tablet 1000 MG PO ×2 (00:09→06:10)
[2019-07-12] MEDS: Docusate Sodium 100 MG Capsule PO (06:09)
[2019-07-12] MEDS: Levothyroxine 25 MCG TABLET PO (06:09)
[2019-07-12] MEDS: Gabapentin 600 MG Tablet PO (06:09)
[2019-07-12] MEDS: Iron Polysaccharide Complex 150 MG CAPSULE PO (08:05)
[2019-07-12 11:01] VITALS: BP 136/66; PULSE 84; RESP 18; TEMP 36.7; O2SAT 96
--- NOTE | 2019-07-14 16:46 | CASEMGMT ---
Social Work Reviewed and agreed with SW software development intern documentation on this date. Natalie Fry, MACHINE GREASER ACETYLENE GAS COMPRESSOR
== END 2019-07-12 10:45 | disposition home health service (06) | DRG 949 ==
LOC: TCU 16:51
PROVIDERS: Admitting Provider Family Medicine Geriatric Medicine; Family Provider Family Medicine Geriatric Medicine; PCP Family Medicine Geriatric Medicine; Referring Provider Family Medicine Geriatric Medicine; Visit Provider Family Medicine Geriatric Medicine
DX: Z48.817 Encounter for surgical aftercare following surgery on the skin and subcutaneous tissue (principal); L89.154 Pressure ulcer of sacral region, stage 4; I48.20 Chronic atrial fibrillation, unspecified; M86.68 Other chronic osteomyelitis, other site; B95.62 Methicillin resistant Staphylococcus aureus infection as the cause of diseases classified elsewhere; D63.8 Anemia in other chronic diseases classified elsewhere; E03.9 Hypothyroidism, unspecified; I10 Essential (primary) hypertension; K21.9 Gastro-esophageal reflux disease without esophagitis; G62.9 Polyneuropathy, unspecified; E66.01 Morbid (severe) obesity due to excess calories; E78.5 Hyperlipidemia, unspecified; M19.90 Unspecified osteoarthritis, unspecified site; E87.6 Hypokalemia; D50.9 Iron deficiency anemia, unspecified; E55.9 Vitamin D deficiency, unspecified; F32.9 Major depressive disorder, single episode, unspecified; F41.9 Anxiety disorder, unspecified; Z87.891 Personal history of nicotine dependence; Z68.36 Body mass index [BMI] 36.0-36.9, adult; B96.20 Unspecified Escherichia coli [E. coli] as the cause of diseases classified elsewhere
CPT/HCPCS: 36415; 80048; 80053; 80202; 82565; 85025; 85652; 86140; 87070; 87077; 87186; 87205; 93306; 97110; 97116; 97162; 97166; 97530; 97535; 97802; J2997; J7050; A4216

== ENCOUNTER → 2019-06-26 10:53 | Outpatient (CLI) | payer MEDICARE, OTHER, SELFPAY ==
[2019-04-23 14:31] VITALS: BMI 36.8
--- NOTE | 2019-06-26 10:54 | ECHOD_ITS ---
Reason For Study: MURMUR Procedure This was a 2D Doppler, Color Flow transthoracic echocardiogram. Exam performed in department. Left Ventricle Normal LV size. Mild concentric left ventricular hypertrophy. The estimated ejection fraction is 65 %. Stage 1 diastolic dysfunction. No regional wall motion abnormalities noted. Right Ventricle Normal RV size. Normal systolic function. Atria Normal left atrium. Normal right atrium. Mitral Valve There is mild mitral annular calcification. Mild focal mitral valve calcification, bileaflet. Tricuspid Valve Normal tricuspid valve. Aortic Valve Trisinus/trileaflet aortic valve. Mild focal aortic valve calcification. Peak aortic valve gradient 58 mmHg. Mean aortic valve gradient 40 mmHg. Moderate aortic stenosis. Calculated aortic valve area (continuity equation) is 1.0 cm2. Pulmonic Valve Normal pulmonic valve. Great Vessels Normal aortic root. The pulmonary artery is normal size. Normal inferior vena cava. Pericardium/Pleural No pericardial effusion. MMode/2D Measurements & Calculations LVIDd: 3.7 cm IVSd: 1.3 cm LVOT diam: 2.0 cm LVIDs: 2.4 cm LVPWd: 1.3 cm LVOT area: 3.1 cm2 RVDd: 3.0 cm FS: 33.6 % Ao root diam: 3.2 cm LAV(MOD-bp): 42.6 ml LVAd ap4: 26.3 cm2 LAV(MOD-bp) Indexed: 21.1 ml/m2 EDV(MOD-sp4): 80.1 ml LAV(MOD-sp2): 45.8 ml EDV(sp4-el): 83.6 ml LAV(MOD-sp4): 33.4 ml LVAs ap4: 15.1 cm2 ESV(MOD-sp4): 31.8 ml ESV(sp4-el): 31.9 ml EF(MOD-sp4): 60.3 % EF(sp4-el): 61.9 % SV(MOD-sp4): 48.3 ml SV(sp4-el): 51.7 ml LA A4 area: 15.0 cm2 LA dimension(2D): 3.6 cm RA A4 area: 11.0 cm2 Time Measurements MV dec time: 0.31 sec Doppler Measurements & Calculations MV E max gurpreet: 80.8 cm/sec Lat Peak E' Gurpreet: 8.4 cm/sec Med Peak E' Gurpreet: 6.1 cm/sec MV A max gurpreet: 109.9 cm/sec E/E' lat: 9.6 E/E' med: 13.2 MV E/A: 0.74 Ao V2 max: 381.0 cm/sec LV V1 max: 127.8 cm/sec SV(LVOT): 86.2 ml Ao max P.2 mmHg LV V1 max P.5 mmHg Ao V2 mean: 302.8 cm/sec LV V1 mean P.6 mmHg Ao mean P.9 mmHg LV V1 mean: 88.6 cm/sec Ao V2 VTI: 83.6 cm LV V1 VTI: 27.7 cm MONICA(I,D): 1.0 cm2 MONICA(V,D): 1.0 cm2 PA V2 max: 128.5 cm/sec Interpretation Summary Normal LV size. Mild concentric left ventricular hypertrophy. The estimated ejection fraction is 65 %. Stage 1 diastolic dysfunction. Moderate aortic stenosis. Calculated aortic valve area (continuity equation) is 1.0 cm2. Mean aortic valve gradient 40 mmHg. Compared to prior study, there is no significant change. Ordering Physician: Ivory Howard/Mitchell Henderson Referring Physician: VIRGEN SCHMIDT Performed By: Lindsey Ballesteros RDCS
== END ==
PROVIDERS: Family Provider Family Medicine Geriatric Medicine; PCP Family Medicine Geriatric Medicine; Referring Provider Physician Assistant Medical; Visit Provider Physician Assistant Medical
DX: I35.0 Nonrheumatic aortic (valve) stenosis (principal)
CPT/HCPCS: 93306

== ENCOUNTER 2019-07-14 09:19 | Outpatient (RCR) | payer MEDICARE, OTHER, SELFPAY ==
[2019-07-14 09:22] VITALS: BP 111/70; PULSE 100; RESP 18; TEMP 36.2; BMI 36.8
--- NOTE | 2019-07-14 12:18 | PN.PCM_ITS ---
(1) S/P flap graft Status: Chronic Code(s): Z98.890 - Other specified postprocedural states (2) Sacral osteomyelitis Status: Chronic Code(s): M46.28 - Osteomyelitis of vertebra, sacral and sacrococcygeal region (3) Depression Status: Chronic Code(s): F32.9 - Major depressive disorder, single episode, unspecified Type of Wound Date of Service: 07/14/19 Chief Complaint: Sacral pressure sore, Stage IV. History of Wound: Surgery 04/25/19 - 1. Excision sacral pressure sore, Stage IV, with partial ostectomy for osteomyelitis. 2. Reconstruction with lumbar bilobed fasciocutaneous transposition flap (255 cm2) and placement of AmnioFill placental connective tissue powder, 1000 mg. Surgery 09/09/18 - Excision sacral pressure sore, Stage IV, with partial ostectomy for osteomyelitis. Operative culture - Coag negative Staph and Actinomyces odontolyticus. She was treated with Doxycycline and has finished them. Recent wound culture from 10/09/18 showed Streptococcus agalactiae and Corynebacterium striatum. She was placed on Augmentin and has finished them. Another wound culture from 01/29/19 showed MRSA. She was placed on Doxycycline. Pathology - negative for osteomyelitis. Prealbumin from 09/10/18 was 18.1. Encourage nutritional supplementation with protein to help the healing process. Today she denies fever. Her appetite is ok. Progress of Wound: Her flap is healed. - Physical Exam Vital Signs Temp Pulse Resp BP 97.1 F L 100 18 111/70 07/14/19 09:22 07/14/19 09:22 07/14/19 09:22 07/14/19 09:22 General: Alert, Oriented x3, Cooperative HEENT: Atraumatic Oral: Moist Mucosa Lungs: Normal air movement Cardiovascular: Regular rate Abdomen: Soft, Obese Extremities: Capillary Refill Less than 3 Seconds Skin: Ulcer/ Wound - sacral ulcer is healed with skin graft. There was some compromise of the graft at the base of graft that has resolved. Wound Measurements and Assessment WC - Nurse 1 - General Ulcer Measurement Start: 07/14/19 09:22 Freq: Status: Active Protocol: Activity Type Activity Date Activity User E-Sign Co-Sign Detail Recorded Client Recorded Date Recorded By Document 07/14/19 09:22 [facility] [id number] 07/14/19 09:25 [facility] 07/14/19 09:22 Wound Center Nurse 1 [Ulcer Assessment] #9- SACRUM (POST OP) -Combined with other wound No -Current Size (cm) - Length 0.1 -Current Size (cm) - Width 0.1 -Current Size (cm) - Depth 0.1 -Total Square Cm 0.01 -Photo Taken Yes -Epithelialization Large 67-100% -Tunneling No -Undermining/Tunneling No -Circular Undermining No -Texture (Amanda-wound Skin Appearance) Assessed, Scarring -Moisture (Amanda-wound Skin Appearance Assessed ) -Color (Amanda-wound Skin Appearance) Assessed -Temperature (Amanda-wound Skin No Abnormality Appearance) (Pt Warm) -Tenderness on Palpation (Amanda-wound Yes Skin Appearance) WC - Nurse 2 - General Ulcer CM Notes Start: 07/14/19 09:22 Freq: Status: Active Protocol: Activity Type Activity Date Activity User E-Sign Co-Sign Detail Recorded Client Recorded Date Recorded By Document 07/14/19 09:51 [id number] 07/14/19 09:51 07/14/19 09:51 Wound Center Nurse 2 [Procedure/Treatment] -Correct Patient No -Correct Side, Site, Position No -Correct Procedure No -Procedure Performed No -Post Debridement Size (cm) - Length 0 -Post Debridement Size (cm) - Width 0 -Post Debridement Size (cm) - Depth 0 -Total Square Cm 0 -Wound/Ulcer Outcome Healed- Flap [See Physician Procedure note for Specifics] Pain Scale: 0-10 Numeric [Pain] -Is Patient Pain Free? Yes Musculoskeletal: Muscle Wasting - She is feeling weak with activity from having been on bedrest so long. She is now at home. Neurological: Neuro grossly intact Psych/Mental Status: Normal Affect, Anxious, - - Emotional and tearful Debridement Note Post-Debridement Measurements/Treatment - Nurse 2 - General Ulcer CM Notes Start: 07/14/19 09:22 Freq: Status: Active Protocol: Activity Type Activity Date Activity User E-Sign Co-Sign Detail Recorded Client Recorded Date Recorded By Document 07/14/19 09:51 [id number] 07/14/19 09:51 07/14/19 09:51 Wound Center Nurse 2 #9- SACRUM (POST OP) -Correct Patient No -Correct Side, Site, Position No -Correct Procedure No -Procedure Performed No -Post Debridement Size (cm) - Length 0 -Post Debridement Size (cm) - Width 0 -Post Debridement Size (cm) - Depth 0 -Total Square Cm 0 -Wound/Ulcer Outcome Healed- Flap Pain Scale: 0-10 Numeric Is Patient Pain Free? Yes No debridement was completed today Assessment/Plan Assessment: 1. Sacral pressure sore, Stage IV. 2. History of osteomyelitis. 3. s/p repair colovaginal fistula. 4. s/p excision sacral pressure sore, Stage IV, with partial ostectomy for osteomyelitis. 5. Recurrent hypergranulation tissue. 6. MRSA. Plan: Flap is healed. Instructed to keep the lower portion of the flap that was compromised but now is healed uncovered. She should apply lotion daily and massage the area to help soften scarring. She is scheduled to have home health and is to obtain PT at home for muscle strengthening and ROM. She will return in 3 weeks to make sure that graft remains healed, then she should be able to be discharged. Code Visit [id number]: [id number] Global Visit
== END 2019-08-02 23:59 ==
LOC: WC 09:19
PROVIDERS: PCP Family Medicine Geriatric Medicine; Visit Provider Nurse Practitioner Family
DX: Z09 Encounter for follow-up examination after completed treatment for conditions other than malignant neoplasm (principal); F32.9 Major depressive disorder, single episode, unspecified; Z86.14 Personal history of Methicillin resistant Staphylococcus aureus infection
CPT/HCPCS: 99213; G0463

== ENCOUNTER → 2019-07-29 14:31 | Outpatient (CLI) | payer MEDICARE, OTHER, SELFPAY ==
[2019-07-14 09:22] VITALS: BMI 36.8
[2019-07-29 15:31] LABS: Absolute Lymphocyte Count 1.22 X10^3/uL (0.83-4.51); Absolute Neutrophil Count 13.3 X10^3/uL (2.0-7.7); Basophil# 0.04 X10^3/uL; Basophil% 0.2 % (0-1); Eosinophil# 0.01 X10^3/uL; Eosinophils% 0.1 % (0-5); Hemoglobin 13.8 g/dL (12.0-15.0); Lymphocyte # 1.22 X10^3/ul (4.0); Lymphocyte % 7.2 % (19-41); Mean Corp Hgb Conc 30.7 g/dL (32-36); Mean Corpuscular Hgb 25.3 pg (27.0-32.0); Mean Corpuscular Volume 82.6 fL (81-99); Mean Platelet Vol. 9.7 fl (6.2-12.0); Monocyte% 13.6 % (0-10); NRBC Flagged by Analyzer 0 % (0-5); Neutrophil # 13.25 X10^3/uL (2.7-7.7); Neutrophil % 78.3 % (47-70); POSITIVE DIFFERENTIAL YES; POSITIVE MORPHOLOGY YES; Platelet Count 361 K/mm3 (150-450); RBC Distribution Width SD 61.1 fl (35.1-43.9); Red Blood Count 5.45 M/mm3 (4.2-5.4); White Blood Count 16.9 K/mm3 (4.4-11.0)
[2019-07-29 15:58] LABS: Vitamin D,25 Hydroxy 17.7 ng/mL
[2019-07-29 15:59] LABS: Differential Indicated SCAN CRITERIA MET
[2019-07-29 16:05] LABS: Anisocytosis 1+; Microcytosis RARE; Platelet Estimate ADEQUATE (ADEQ); Red Cell Morphology N CHROM NORMAL (NORM C&C)
[2019-07-29 16:10] LABS: ALB/GLOB Ratio 0.6 RATIO (0.9-2.4); AST(SGOT) 22 U/L (15-37); Alanine Aminotransfer ALT/SGPT 30 U/L (13-56); Albumin, Serum 3.2 g/dL (3.2-5.0); Alkaline Phosphatase 137 U/L (45-117); Anion Gap 8 (5-15); BUN 18 mg/dL (7-18); BUN/Creat Ratio 21.6 RATIO (10-20); Calcium,Total 9.5 mg/dL (8.5-10.1); Chloride 112 mmol/L (98-107); Creatinine, Serum 0.83 mg/dL (0.55-1.02); EST Glomerular Filtration Rate 72 mL/min (>60); Est Glom Filt Rate - Afr Amer 88 mL/min (>60); Globulin 5.6 g/dL (2.2-4.2); Glucose 102 mg/dL (74-106); Potassium 3.9 mmol/L (3.5-5.1); Protein, Total 8.8 g/dL (6.4-8.2); Sodium Level 143 mmol/L (136-145); Thyroid Stim Hormone (TSH) 0.84 uIU/mL (0.358-3.74)
[2019-07-30 10:44] LABS: Pathologist Review Reviewed
== END ==
PROVIDERS: PCP Family Medicine Geriatric Medicine; Visit Provider Family Medicine Geriatric Medicine
DX: E55.9 Vitamin D deficiency, unspecified (principal); I10 Essential (primary) hypertension; R68.83 Chills (without fever)
CPT/HCPCS: 36415; 80053; 82306; 84443; 85025; 87040; 87086; 87088; 87186

== ENCOUNTER 2019-08-04 09:13 | Outpatient (RCR) | payer MEDICARE, OTHER, SELFPAY ==
[2019-08-03 01:04] VITALS: BP 111/70; PULSE 100; RESP 18; TEMP 36.2
[2019-08-04 09:38] VITALS: BP 145/95; PULSE 105; RESP 16; BMI 36.8
--- NOTE | 2019-08-04 16:17 | PCM.WC.PN ---
(1) Pressure ulcer of sacral region, stage 4 Status: Resolved Code(s): L89.154 - Pressure ulcer of sacral region, stage 4 (2) Sacral osteomyelitis Status: Chronic Code(s): M46.28 - Osteomyelitis of vertebra, sacral and sacrococcygeal region (3) S/P flap graft Status: Chronic Code(s): Z98.890 - Other specified postprocedural states (4) Depression Status: Chronic Code(s): F32.9 - Major depressive disorder, single episode, unspecified Type of Wound Date of Service: 08/04/19 Chief Complaint: Sacral pressure sore, Stage IV. History of Wound: Surgery 04/25/19 - 1. Excision sacral pressure sore, Stage IV, with partial ostectomy for osteomyelitis. 2. Reconstruction with lumbar bilobed fasciocutaneous transposition flap (255 cm2) and placement of AmnioFill placental connective tissue powder, 1000 mg. Surgery 09/09/18 - Excision sacral pressure sore, Stage IV, with partial ostectomy for osteomyelitis. Operative culture - Coag negative Staph and Actinomyces odontolyticus. She was treated with Doxycycline and has finished them. Recent wound culture from 10/09/18 showed Streptococcus agalactiae and Corynebacterium striatum. She was placed on Augmentin and has finished them. Another wound culture from 01/29/19 showed MRSA. She was placed on Doxycycline. Pathology - negative for osteomyelitis. Prealbumin from 09/10/18 was 18.1. Encourage nutritional supplementation with protein to help the healing process. She is healed. She is at home and receiving PT at home. Today she denies fever. Her appetite is ok. Progress of Wound: Her flap is healed. - Physical Exam Vital Signs Temp Pulse Resp BP 97.1 F L 105 H 16 145/95 H 08/03/19 01:04 08/04/19 09:38 08/04/19 09:38 08/04/19 09:38 General: Alert, Oriented x3, Cooperative HEENT: Atraumatic Oral: Moist Mucosa Lungs: Normal air movement Cardiovascular: Regular rate Abdomen: Bowel Sounds Present Extremities: No edema, Capillary Refill Less than 3 Seconds Skin: Ulcer/ Wound - Muscle flap to sacral ulcer is now healed. Wound Measurements and Assessment WC - Nurse 2 - General Ulcer CM Notes Start: 08/04/19 09:38 Freq: Status: Active Protocol: Activity Type Activity Date Activity User E-Sign Co-Sign Detail Recorded Client Recorded Date Recorded By Document 08/04/19 10:32 [id number] 08/04/19 10:33 08/04/19 10:32 Pain Scale: 0-10 Numeric [Pain] -Is Patient Pain Free? Yes Musculoskeletal: No Tenderness to Palpation of Joints or Extremities Neurological: Neuro grossly intact Psych/Mental Status: Appropriate, Anxious - She is very tearful because she is nervous about being discharged and not having someone checking on her flapy regularly. Debridement Note Post-Debridement Measurements/Treatment WC - Nurse 2 - General Ulcer CM Notes Start: 08/04/19 09:38 Freq: Status: Active Protocol: Activity Type Activity Date Activity User E-Sign Co-Sign Detail Recorded Client Recorded Date Recorded By Document 08/04/19 10:32 [id number] 08/04/19 10:33 08/04/19 10:32 Pain Scale: 0-10 Numeric Is Patient Pain Free? Yes No debridement was completed today Assessment/Plan Assessment: 1. Sacral pressure sore, Stage IV. 2. History of osteomyelitis. 3. s/p repair colovaginal fistula. 4. s/p excision sacral pressure sore, Stage IV, with partial ostectomy for osteomyelitis. 5. Recurrent hypergranulation tissue. 6. MRSA. Plan: Flap is healed. She should apply lotion daily and massage the area to help soften scarring. Encouraged her not to sit for long periods of time (not for more than an hour at a time). She is scheduled to have home health and is to obtain PT at home for muscle strengthening and ROM. We will discharge her from the wound center today. She is very tearful and nervous about someone not keeping an eye on her flap. Instructed her to make sure she is looking in the mirror frequently to keep an eye on for any changes. She may follow up in the future if she has any concerns about her flap. Office Visits / Consults: [id number] Est
== END 2019-09-02 23:59 ==
LOC: WC 09:13
PROVIDERS: PCP Family Medicine Geriatric Medicine; Visit Provider Nurse Practitioner Family
DX: Z09 Encounter for follow-up examination after completed treatment for conditions other than malignant neoplasm (principal); F32.9 Major depressive disorder, single episode, unspecified; Z79.899 Other long term (current) drug therapy; Z86.14 Personal history of Methicillin resistant Staphylococcus aureus infection; Z98.890 Other specified postprocedural states
CPT/HCPCS: 99213; G0463

== ENCOUNTER → 2019-10-28 10:26 | Outpatient (CLI) | payer MEDICARE, OTHER, SELFPAY ==
[2019-10-28 12:54] LABS: Absolute Lymphocyte Count 1.81 X10^3/uL (0.83-4.51); Absolute Neutrophil Count 6.6 X10^3/uL (2.0-7.7); Basophil# 0.04 X10^3/uL; Basophil% 0.4 % (0-1); Eosinophil# 0.06 X10^3/uL; Eosinophils% 0.6 % (0-5); Hematocrit 43.9 % (37-47); Hemoglobin 13.4 g/dL (12.0-15.0); Lymphocyte # 1.81 X10^3/ul (4.0); Lymphocyte % 18.9 % (19-41); Mean Corp Hgb Conc 30.5 g/dL (32-36); Mean Corpuscular Hgb 27.6 pg (27.0-32.0); Mean Corpuscular Volume 90.5 fL (81-99); Mean Platelet Vol. 9.3 fl (6.2-12.0); Monocyte# 0.99 X10^3/uL; Monocyte% 10.3 % (0-10); NRBC Flagged by Analyzer 0 % (0-5); Neutrophil # 6.62 X10^3/uL (2.7-7.7); Platelet Count 498 K/mm3 (150-450); RBC Distribution Width CV 15.9 % (11.6-14.6); RBC Distribution Width SD 52.6 fl (35.1-43.9); Red Blood Count 4.85 M/mm3 (4.2-5.4); White Blood Count 9.6 K/mm3 (4.4-11.0)
[2019-10-28 13:06] LABS: Vitamin D,25 Hydroxy 27.1 ng/mL
[2019-10-28 13:18] LABS: ALB/GLOB Ratio 0.7 RATIO (0.9-2.4); AST(SGOT) 19 U/L (15-37); Alanine Aminotransfer ALT/SGPT 36 U/L (13-56); Albumin, Serum 3.4 g/dL (3.2-5.0); Alkaline Phosphatase 199 U/L (45-117); Anion Gap 9 (5-15); BUN 27 mg/dL (7-18); BUN/Creat Ratio 33.7 RATIO (10-20); Calcium,Total 9.6 mg/dL (8.5-10.1); Chloride 107 mmol/L (98-107); EST Glomerular Filtration Rate 76 mL/min (>60); Est Glom Filt Rate - Afr Amer 91 mL/min (>60); Globulin 5.1 g/dL (2.2-4.2); Glucose 117 mg/dL (74-106); Protein, Total 8.5 g/dL (6.4-8.2); Sodium Level 143 mmol/L (136-145); Thyroid Stim Hormone (TSH) 1.03 uIU/mL (0.358-3.74)
== END ==
PROVIDERS: PCP Family Medicine Geriatric Medicine; Visit Provider Family Medicine Geriatric Medicine
DX: E55.9 Vitamin D deficiency, unspecified (principal); I10 Essential (primary) hypertension; N39.0 Urinary tract infection, site not specified
CPT/HCPCS: 36415; 80053; 82306; 84443; 85025; 87086; 87088; 87186

== ENCOUNTER 2019-11-17 10:57 | Outpatient (RCR) | payer MEDICARE, OTHER, SELFPAY ==
[2019-11-17 11:03] VITALS: BP 176/89; PULSE 89; RESP 16; TEMP 36.2; BMI 36.2
--- NOTE | 2019-11-17 14:44 | PCM.WC.PN ---
Type of Wound Date of Service: 11/17/19 Chief Complaint: Lumbosacral pain after closure of sacral pressure sore with a fasciocutaneous flap. History of Wound: Surgery 04/25/19 - 1. Excision sacral pressure sore, Stage IV, with partial ostectomy for osteomyelitis. 2. Reconstruction with lumbar bilobed fasciocutaneous transposition flap (255 cm2) and placement of AmnioFill placental connective tissue powder, 1000 mg. Operative culture - Coag negative Staph and Actinomyces odontolyticus. She was treated with Doxycycline and has finished them. Pathology - negative for osteomyelitis. Prealbumin from 04/26/19 was 20.9. Encourage nutritional supplementation with protein to help the healing process. She is healed. Today she denies fever. Her appetite is ok. Her PCP recently examined her and wanter her evaluated for her lumbosacral pain with the possibility of a persistent seroma. Progress of Wound: Flap remains healed. - Physical Exam Vital Signs Temp Pulse Resp BP 97.1 F L 89 16 176/89 H 11/17/19 11:03 11/17/19 11:03 11/17/19 11:03 11/17/19 11:03 General: Alert, Oriented x3 HEENT: PERRLA, EOMI Oral: Moist Mucosa Neck: Supple Lungs: Clear to auscultation Cardiovascular: Regular rate, Regular Rhythm Abdomen: Soft, Non-Distended Extremities: Edema - mild edema in lower extremities. Skin: Incision - back incision healed (lumbosacral area). No clinical evidence of infection. Some tenderness over the sacral area where the pressure sore was. Could not elucidate any appreciable fluid amount in the area. No fluid wave present. Wound Measurements and Assessment WC - Nurse 2 - General Ulcer CM Notes Start: 11/17/19 11:03 Freq: Status: Active Protocol: Activity Type Activity Date Activity User E-Sign Co-Sign Detail Recorded Client Recorded Date Recorded By Document 11/17/19 11:30 SHIRA [id number] 11/17/19 11:31 SHIRA 11/17/19 11:30 Pain Scale: 0-10 Numeric [Pain] -Is Patient Pain Free? Yes Neurological: Cranial nerves II-XII grossly intact Psych/Mental Status: Normal Affect, Appropriate Debridement Note Post-Debridement Measurements/Treatment WC - Nurse 2 - General Ulcer CM Notes Start: 11/17/19 11:03 Freq: Status: Active Protocol: Activity Type Activity Date Activity User E-Sign Co-Sign Detail Recorded Client Recorded Date Recorded By Document 11/17/19 11:30 SHIRA [id number] 11/17/19 11:31 SHIRA 11/17/19 11:30 Pain Scale: 0-10 Numeric Is Patient Pain Free? Yes Assessment/Plan Assessment: 1. Sacral pressure sore, Stage IV, healed after fasciocutaneous flap. 2. History of osteomyelitis. 3. s/p repair colovaginal fistula. 4. Lumbosacral pain. 5. MRSA. Plan: Flap remains healed. She should apply lotion daily and massage the area to help soften scarring. Encouraged her not to sit for long periods of time (not for more than an hour at a time). There is residual pain in the lumbosacral area. Reassured her that it should continue to improve with massage. The flap is still remodelling. Other option if pain is persistent after the next 6 months is to go to Pain Management. Will order an Ultrasound to make sure there is not any residual fluid underneath the flap that can be drained. Right now there is no urgent surgical indication. Followup 2-3 weeks. Office Visits / Consults: [id number] OV L3 Est - ICD-10 - L89.154, Z89.890, M86.9, M54.5, A49.02
== END 2019-12-02 23:59 ==
LOC: WC 10:57
PROVIDERS: PCP Family Medicine Geriatric Medicine; Visit Provider Surgery
DX: Z09 Encounter for follow-up examination after completed treatment for conditions other than malignant neoplasm (principal); R60.0 Localized edema; Z86.14 Personal history of Methicillin resistant Staphylococcus aureus infection
CPT/HCPCS: 99213; G0463

== ENCOUNTER → 2019-11-20 11:25 | Outpatient (CLI) | payer MEDICARE, OTHER, SELFPAY ==
[2019-11-17 11:03] VITALS: BMI 36.2
--- NOTE | 2019-11-20 11:29 | US_ITS ---
STUDY: SUPERFICIAL ULTRASOUND - SACRAL AREA. REASON FOR EXAM: Female, 69 years old. POSSIBLE FLUID COLLECTION AT SACRAL WOUND TECHNIQUE: A superficial ultrasound was performed with real-time and static lao-scale imaging. COMPARISON: None. FINDINGS: The area of the sacral wound was examined by ultrasound. There is a 4 cm x 6 cm x 0.6 cm longitudinal fluid collection deep to the sacral wound. Adjacent to this, there are 2 smaller fluid collections measuring 1.4 cm x 1.4 cm x 0.4 cm and 1.4 cm x 1.6 x 1.1 cm. US/Ext Non Vasc Limited/Soft Tiss IMPRESSION: 4 cm x 6 x 0.6 cm linear fluid collection deep in the sacral wound. 2 adjacent 1.4 cm x 1.6 cm x 1.1 cm and 1.4 cm x 1.4 cm x 0.4 cm fluid collections. Electronically Signed: Fidel Rojas, at 12:38 EDT , Service support ,
== END ==
PROVIDERS: PCP Family Medicine Geriatric Medicine; Referring Provider Surgery; Visit Provider Surgery
DX: N39.0 Urinary tract infection, site not specified (principal); R52 Pain, unspecified
CPT/HCPCS: 76882; 87086; 87088; 87186

== ENCOUNTER 2019-12-08 10:55 | Outpatient (RCR) | payer MEDICARE, OTHER, SELFPAY ==
[2019-12-03 00:37] VITALS: BP 176/89; PULSE 89; RESP 16; TEMP 36.2
[2019-12-08 11:11] VITALS: BP 156/94; PULSE 89; RESP 18; TEMP 36.3; BMI 36.2
--- NOTE | 2019-12-08 11:13 | WC ---
ptc/o discomfort with sitting lower back . pt pain at level 5. pt them gets up amd moves around
--- NOTE | 2019-12-08 12:22 | PCM.WC.PN ---
(1) Seroma after procedure Status: Chronic (2) S/P flap graft Status: Chronic Code(s): Z98.890 - Other specified postprocedural states Type of Wound Date of Service: 12/08/19 Chief Complaint: Lumbosacral pain after closure of sacral pressure sore with a fasciocutaneous flap. History of Wound: Surgery 04/25/19 - 1. Excision sacral pressure sore, Stage IV, with partial ostectomy for osteomyelitis. 2. Reconstruction with lumbar bilobed fasciocutaneous transposition flap (255 cm2) and placement of AmnioFill placental connective tissue powder, 1000 mg. Operative culture - Coag negative Staph and Actinomyces odontolyticus. She was treated with Doxycycline and has finished them. Pathology - negative for osteomyelitis. Prealbumin from 04/26/19 was 20.9. Encourage nutritional supplementation with protein to help the healing process. She is healed. Today she denies fever. Her appetite is ok. Her PCP recently examined her and wanter her evaluated for her lumbosacral pain with the possibility of a persistent seroma. Ultrasound on 11/20/19 showed: 4 cm x 6 x 0.6 cm linear fluid collection deep in the sacral wound. 2 adjacent 1.4 cm x 1.6 cm x 1.1 cm and 1.4 cm x 1.4 cm x 0.4 cm fluid collections. Will order an ultrasound guided needle aspiration. Progress of Wound: Flap remains healed. Possilble fluctuation present at the gluteal fold. - Physical Exam Vital Signs Temp Pulse Resp BP 97.3 F L 89 18 156/94 H 12/08/19 11:11 12/08/19 11:11 12/08/19 11:11 12/08/19 11:11 General: Alert, Oriented x3, Cooperative HEENT: Atraumatic Oral: Moist Mucosa Lungs: Clear to auscultation, Normal air movement Cardiovascular: Regular rate, Regular Rhythm Abdomen: Bowel Sounds Present, Soft, Obese Extremities: Capillary Refill Less than 3 Seconds Skin: Ulcer/ Wound - Flap is healed. There may be a small amount of fluctuation at the sacrum in the gluteal fold. Wound Measurements and Assessment WC - Nurse 2 - General Ulcer CM Notes Start: 12/08/19 11:07 Freq: Status: Active Protocol: Activity Type Activity Date Activity User E-Sign Co-Sign Detail Recorded Client Recorded Date Recorded By Document 12/08/19 12:21 PL [id number] 12/08/19 12:21 PL 12/08/19 12:21 Pain Scale: 0-10 Numeric [Pain] -Is Patient Pain Free? Yes Musculoskeletal: No Tenderness to Palpation of Joints or Extremities Neurological: Cranial nerves II-XII grossly intact Psych/Mental Status: Normal Affect, Appropriate Debridement Note Post-Debridement Measurements/Treatment WC - Nurse 2 - General Ulcer CM Notes Start: 12/08/19 11:07 Freq: Status: Active Protocol: Activity Type Activity Date Activity User E-Sign Co-Sign Detail Recorded Client Recorded Date Recorded By Document 12/08/19 12:21 PL [id number] 12/08/19 12:21 PL 12/08/19 12:21 Pain Scale: 0-10 Numeric Is Patient Pain Free? Yes No debridement was completed today Assessment/Plan Assessment: 1. Sacral pressure sore, Stage IV, healed after fasciocutaneous flap. 2. History of osteomyelitis. 3. s/p repair colovaginal fistula. 4. Lumbosacral pain. 5. MRSA. Plan: Flap remains healed. She should apply lotion daily and massage the area to help soften scarring. Encouraged her not to sit for long periods of time (not for more than an hour at a time). There is residual pain in the lumbosacral area. Reassured her that it should continue to improve with massage. The flap is still remodelling. Other option if pain is persistent after the next 6 months is to go to Pain Management. Her PCP recently examined her and wanter her evaluated for her lumbosacral pain with the possibility of a persistent seroma. Ultrasound on 11/20/19 showed: 4 cm x 6 x 0.6 cm linear fluid collection deep in the sacral wound. 2 adjacent 1.4 cm x 1.6 cm x 1.1 cm and 1.4 cm x 1.4 cm x 0.4 cm fluid collections. Will order an ultrasound guided needle aspiration. If fluid is obtained will culture. She will follow up after the ultrasound. Will order an Ultrasound to make sure there is not any residual fluid underneath the flap that can be drained. Right now there is no urgent surgical indication. Followup 2-3 weeks. Office Visits / Consults: [id number] L3 Est
== END 2020-01-02 23:59 ==
LOC: WC 10:55
PROVIDERS: PCP Family Medicine Geriatric Medicine; Visit Provider Surgery
DX: Z09 Encounter for follow-up examination after completed treatment for conditions other than malignant neoplasm (principal); M54.5 Low back pain; Z86.14 Personal history of Methicillin resistant Staphylococcus aureus infection; N39.0 Urinary tract infection, site not specified; N20.0 Calculus of kidney
CPT/HCPCS: 99212; G0463

== ENCOUNTER → 2019-12-08 12:22 | Outpatient (CLI) | payer MEDICARE, OTHER, SELFPAY ==
[2019-11-17 11:03] VITALS: BMI 36.2
[2019-12-08 11:11] VITALS: BMI 36.2
--- NOTE | 2019-12-08 12:28 | US_ITS ---
STUDY: RENAL ULTRASOUND - COMPLETE REASON FOR EXAM: Female, 69 years old. Recurrent UTIs. TECHNIQUE: Ultrasound evaluation of the kidneys was performed with real-time and static em-scale imaging. COMPARISON: CT of the abdomen and pelvis, May 16, 2018. FINDINGS: RIGHT KIDNEY: Normal location of the right kidney, which is normal in size. The right kidney measures 10.5 cm. There is a normal cortex of the right kidney. The renal cortex measures 1.8 cm. There is no right renal mass or cyst. 6 mm calcification lower pole calyx without hydronephrosis. DISTAL RIGHT URETER: There is non-visualization of the distal right ureter. There is no demonstrated right ureterovesical junction calculus. There is no demonstrated right ureteral jet. LEFT KIDNEY: Normal location of the left kidney, which is normal in size. The left kidney measures 11.5 cm. There is a normal cortex of the left kidney. The renal cortex measures 2.1 cm. There is no left renal mass or cyst. There are no left renal calculi. There is no left hydronephrosis. DISTAL LEFT URETER: There is non-visualization of the distal left ureter. There is no demonstrated left ureterovesical junction calculus. There is a visualized left ureteral jet. BLADDER: The distended urinary bladder has a volume of 270 ml. There is a normal wall thickness of the distended urinary bladder. There is no demonstrated mass within the urinary bladder. There are no demonstrated bladder calculi. US/Kidney and Bladder IMPRESSION: 1. Small nonobstructing right lower pole renal calculus. 2. Otherwise normal complete renal ultrasound Electronically Signed: Vasquez Shepherd DO at 23:23 EDT Tel [phone], Service support ,
== END ==
PROVIDERS: PCP Family Medicine Geriatric Medicine; Referring Provider Urology; Visit Provider Urology
DX: N39.0 Urinary tract infection, site not specified (principal); N20.0 Calculus of kidney
CPT/HCPCS: 76770; 99212; G0463

== ENCOUNTER 2020-01-13 07:12 | Day surgery (SDC) | payer MEDICARE, OTHER, SELFPAY ==
[2020-01-13 07:34] VITALS: BP 109/54; PULSE 75; RESP 16; TEMP 37; O2SAT 96; BMI 37.4
[2020-01-13] MEDS: Lactated Ringers 1,000 ML 100 ML IV (07:48)
--- NOTE | 2020-01-13 08:10 | PCM.HP.STD ---
Problem List (1) Urinary tract infection Status: Acute History of Present Illness Date of Admission: 01/13/20 Chief Complaint: recurrent urinary tract infections The patient is a 69 year old F with 3 urinary tract infections in the last 6 months. She has issues with constipation chronically. Was unable to have cystoscopy done in the office due to pain. Here for formal evaluation. Past Medical History Past Medical History (Chronic Problems): Chronic Problems (Last Updated 04/18/19 @ 13:58 by PAPI Jaramillo) Seroma after procedure (Chronic) Lumbosacral pain, chronic (Chronic) Sacral osteomyelitis (Chronic) Anxiety (Chronic) Anemia, chronic disease (Chronic) Body mass index (bmi) 36.0-36.9, adult (Chronic) S/P flap graft (Chronic) Aortic stenosis (Chronic) Hypertension (Chronic) Osteomyelitis (Chronic) Atrial fibrillation (Chronic) Back pain (Chronic) Methicillin resistant Staph aureus culture positive (Chronic) MRSA (methicillin resistant Staphylococcus aureus) infection (Chronic) Osteomyelitis of pelvis (Chronic) Constipation (Chronic) Hypergranulation (Chronic) Acute osteomyelitis of sacrum (Chronic) Surgical wound present (Chronic) Secondary pulmonary arterial hypertension (Chronic) Non-rheumatic tricuspid valve insufficiency (Chronic) Preop cardiovascular exam (Chronic) Abnormal electrocardiogram (Chronic) Essential (primary) hypertension (Chronic) Colovaginal fistula (Chronic) Non-healing surgical wound (Chronic) Pressure ulcer of right heel, stage 3 (Chronic) Pressure ulcer of left heel, stage 3 (Chronic) Morbid obesity with BMI of 40.0-44.9, adult (Chronic) GERD (gastroesophageal reflux disease) (Chronic) Depression (Chronic) Hypothyroidism (Chronic) Pressure ulcer of sacral region, stage 4 (Chronic) Failure to thrive (Chronic) Neuropathy (Chronic) Medical History: Medical History (Last Reviewed 01/13/20 @ 08:[address] Richelle Khan MD) Aortic stenosis (Chronic) I35.0 Hypertension (Chronic) I10 Osteomyelitis (Chronic) M86.9 Atrial fibrillation (Chronic) I48.91 Secondary pulmonary arterial hypertension (Chronic) I27.21 Non-rheumatic tricuspid valve insufficiency (Chronic) I36.1 Essential (primary) hypertension (Chronic) I10 Morbid obesity with BMI of 40.0-44.9, adult (Chronic) E66.01, Z68.41 GERD (gastroesophageal reflux disease) (Chronic) K21.9 Depression (Chronic) F32.9 Hypothyroidism (Chronic) E03.9 Abnormal Pap smear of cervix R87.619 Anemia D64.9 GERD (gastroesophageal reflux disease) K21.9 Sacral wound S31.000A Thyroid disorder E07.9 anixety and depression Hypertension I10 no longer on medication d/t weight loss Allergies bee venom protein (honey bee) Allergy (Verified 01/13/20 07:32) Angioedema metaxalone [From Skelaxin] Allergy (Verified 01/13/20 07:32) Swelling Home Medications: Ambulatory Orders Medication Instructions Recorded Levothyroxine [Synthroid] 25 mcg PO DAILY 03/02/17 Omeprazole 40 mg PO 1400 PRN 04/11/18 Lactobacillus Acidophilus/Fos 2 ea PO DAILY 03/12/19 [Acidophilus Probiotic Tablet] Polyethylene Glycol 3350 [Miralax] 17 gm PO PRN PRN 04/28/19 Acetaminophen [Tylenol] 1,000 mg PO Q6H tab 07/07/19 Baclofen [Lioresal] 10 mg PO TID PRN #90 tab 07/07/19 Calcium Carbonate [Tums] 500 mg PO Q4H PRN PRN tab 07/07/19 Gabapentin [Neurontin] 600 mg PO TID #90 tab 07/07/19 Iron Polysaccharide Complex 150 mg PO DAILYCM #30 cap 07/07/19 [Ferrex 150] Potassium Chloride [K-Dur] 40 meq PO DAILY #60 tab 07/07/19 Ascorbic Acid [Vitamin C] 500 mg PO DAILY 01/06/20 Aspirin E.C. [Ecotrin] 81 mg PO DAILY@0800 01/06/20 Diclofenac [Voltaren] 50 mg PO DAILY 01/06/20 Docusate Sodium [Colace] 100 mg PO BID 01/06/20 Green Tea [place] Extract [Green Tea 150 mg PO DAILY 01/06/20 Extract] Linaclotide [Linzess] 72 mcg PO PRN PRN 01/06/20 [place]-3 Fatty Acids [Fish Oil] 500 mg PO DAILY 01/06/20 Turmeric Root Extract [Turmeric] 500 mg PO DAILY 01/06/20 Surgical History: Surgical History (Last Reviewed 01/13/20 @ 08:[address] Richelle Khan MD) H/O dilation and curettage Z98.890 History of LAVH Z98.890, Z90.710 S/P endometrial ablation Z98.890 S/P hysterectomy Z90.710 uterine ablation History of partial colectomy Z90.49 Surgical History: dilatation and curettage, hysterectomy, - - Uterine ablation, Debridement/excision of sacral pressure ulcer X4. Colovaginal fistula surgical repair. Sacal pressure ulcer flap repair. 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 Richelle Khan MD) Father Myocardial infarction Cancer Brother Heart disease Mother COPD (chronic obstructive pulmonary disease) History Items: Unknown, - Paternal Family History: Family History (Last Reviewed 01/13/20 @ 08:[address] Richelle Khan MD) Father Myocardial infarction Cancer Brother Heart disease Mother COPD (chronic obstructive pulmonary disease) History Items: Unknown, - Review of Systems Constitutional: Denies: Anorexia, Chills, Fever Eyes: Denies: Blurred vision, Vision Change HEENT: Denies: Difficulty Swallowing, Visual Changes Cardiovascular: Denies: Chest Pain, Chest Pressure Respiratory: Denies: Cough, Shortness of Breath Gastrointestinal: Reports: Constipation. Denies: Abdominal Pain, Diarrhea, Vomiting Genitourinary: Reports: Dysuria, Incontinence, Retention Gynecological: Denies: Breast symptoms Musculoskeletal: Denies: Muscle pain Skin: Denies: Wounds Neurological: Denies: Tremor Endocrine: Denies: Change in Body Habitus VTE Information - Inpt Only VTE Present on Admission: Yes VTE Mechan Device Prophylaxis: SCD's VTE Pharm Prophylaxis ordered?: No Reason prophylaxis not ordered:: Treatment Not Indicated Patient Problems: Active and Suspected Problems (Last Updated 04/18/19 @ 13:58 by PAPI Jaramillo) Urinary tract infection (Acute) - Physical Exam Vitals/I&O's: Vital Signs Temp Pulse Resp BP Pulse Ox 98.6 F 75 16 109/54 L 96 01/13/20 07:34 01/13/20 07:34 01/13/20 07:34 01/13/20 07:34 01/13/20 07:34 Oxygen Delivery Method Room Air Weight: 99 kg Body Mass Index (BMI) 37.4 General: Alert, Oriented x3, Cooperative, No apparent distress HEENT: Atraumatic, Normocephalic Oral: Moist Mucosa Neck: Supple, Trachea Midline Lungs: Clear to auscultation, Normal air movement Cardiovascular: Regular rate, Regular Rhythm Abdomen: Soft, Non Tender, Non-Distended Extremities: No clubbing Skin: No rashes Musculoskeletal: No Muscle Wasting Neurological: Cranial nerves II-XII grossly intact, Neuro grossly intact Psych/Mental Status: Normal Affect, Alert and oriented to time, place, person, mood and affect Current Medications Lactated Ringer's () 1,000 mls @ 100 mls/hr IV .Q10H ELOISA Last Admin: 01/13/20 07:48 Dose: 100 mls/hr Documented by: Assessment/Plan All Active Problems (Last Updated 04/18/19 @ 13:58 by PAPI Jaramillo) Urinary tract infection (Acute) Pressure ulcer of sacral region, stage 4 (Resolved) Back pain (Acute) Heart murmur (Acute) Debility (Acute) Atrial fibrillation with RVR (Resolved) Clostridium difficile colitis (Resolved) Clostridium difficile infection (Resolved) Hypertension (Resolved) Rhabdomyolysis (Resolved) [proceed with cystoscopy, possible bladder biopsy, pelvic exam under anesthesia Procedure Criteria Procedure Type: Elective COVID Risk Discussion: The surgeon/proceduralist and patient have discussed in detail the risk of exposure to and/or potential harm posed by the COVID-19 virus with having a surgery/procedure at this time versus the risk of delaying the surgery/procedure. It is not possible to know either the risk of delaying the surgery or procedure or chance of getting an infection with perfect accuracy, but a joint decision was made between the patient and the surgeon/proceduralist to proceed at this time with the scheduled surgery/procedure as indicated on the consent form.
--- NOTE | 2020-01-13 08:54 | PCM.OPRPT ---
Problem List (1) Urinary tract infection Status: Acute Report of Operation Date of Procedure: 01/13/20 Pre-Operative Diagnosis: recurrent urinary tract infections Post-Operative Diagnosis: same Surgery/Procedure Performed:: cystoscopy, pelvic exam under anesthesia Type of Anesthesia:: General Specimen's removed: None Description of Procedure: The patient is a 69-year-old female with history of recurrent urinary tract infections. One of these infections left her septic, she fell and lay on the floor for 3 days before being found and brought into the hospital. An attempt was made to evaluate her with cystoscopy in the office and she was unable to tolerate passage of the scope through the urethra. After discussing the risk benefits and alternatives she agreed to proceed with evaluation under anesthesia. The risks of COVID-19 were discussed along with the risks of anesthesia, bleeding, infection and injury. Informed consent was obtained. Patient was taken the operating room and placed in the operating room table. Anesthesia monitored the head, neck, airway, IV access and vital signs throughout the case. Once anesthesia was appropriate ministered the patient was placed into dorsal lithotomy position was prepped and draped in usual sterile fashion. On examination of her pelvis, there was no significant pelvic organ prolapse identified. There is a significant amount of hard stool present in the rectal vault. The urethral meatus is normal. The vaginal mucosa is moderately atrophic. At this time the 70 degree lens was and the cystoscope was inserted through the urethra under direct visualization into the urinary bladder. Bladder mucosa in its entirety was visualized. There is diffuse cystitis cystica present throughout the bladder. There were no masses, polyps, lesions or ulcerations identified. There were no other areas of erythema. Bilateral ureteral orifices were located on the correct anatomic area of the trigone. At this time the patient's bladder was emptied and the case was terminated. The cystoscope was removed and she was awakened and taken to the recovery room in good condition. There were no complications during this case. Grafts/Implants Used: None - Complications none - Admit VTE Documentation VTE Present on Admission: Yes VTE Mechan Device Prophylaxis: SCD's VTE Pharm Prophylaxis ordered?: No Reason prophylaxis not ordered:: Treatment Not Indicated
--- NOTE | 2020-01-13 08:55 | DCINST_ITS ---
Discharge Diet: No Restrictions Discharge Activity: Return to Normal Activity, May not drive while taking narcotic pain medications. May resume sexual activity in: No Restrictions Call your doctor if you observe: Fever of 101 or Higher, Inability to urinate, Inability to have a bowel movement, Calf discomfort, Uncontrolled pain Allergies/Adverse Reactions: Allergies bee venom protein (honey bee) Allergy (Verified 01/13/20 07:32) Angioedema metaxalone [From Skelaxin] Allergy (Verified 01/13/20 07:32) Swelling Medications to take at Discharge Levothyroxine [Synthroid] 25 mcg PO DAILY 03/02/17 Omeprazole 40 mg PO 1400 PRN 04/11/18 Lactobacillus Acidophilus/Fos [Acidophilus Probiotic Tablet] 2 ea PO DAILY 03/12/19 Polyethylene Glycol 3350 [Miralax] 17 gm PO PRN PRN 04/28/19 Acetaminophen [Tylenol] 1,000 mg PO Q6H tab 07/07/19 Baclofen [Lioresal] 10 mg PO TID PRN #90 tab 07/07/19 Calcium Carbonate [Tums] 500 mg PO Q4H PRN PRN tab 07/07/19 Gabapentin [Neurontin] 600 mg PO TID #90 tab 07/07/19 Iron Polysaccharide Complex [Ferrex 150] 150 mg PO DAILYCM #30 cap 07/07/19 Potassium Chloride [K-Dur] 40 meq PO DAILY #60 tab 07/07/19 Ascorbic Acid [Vitamin C] 500 mg PO DAILY 01/06/20 Aspirin E.C. [Ecotrin] 81 mg PO DAILY@0800 01/06/20 Diclofenac [Voltaren] 50 mg PO DAILY 01/06/20 Docusate Sodium [Colace] 100 mg PO BID 01/06/20 Green Tea [place] Extract [Green Tea Extract] 150 mg PO DAILY 01/06/20 Linaclotide [Linzess] 72 mcg PO PRN PRN 01/06/20 [place]-3 Fatty Acids [Fish Oil] 500 mg PO DAILY 01/06/20 Turmeric Root Extract [Turmeric] 500 mg PO DAILY 01/06/20 Primary Care Physician: Chema Sanchez Chi, MD [Primary Care Provider] - Test Results: Test results from this visit will be discussed in further detail at your follow- up appointment, if applicable. Please Follow Up With: Richelle Khan MD When: call office for appt. Proposed Discharge Date: 01/13/20
[2020-01-13 09:27] VITALS: BP 109/54; BP 117/79; PULSE 66; RESP 16; TEMP 36.3; O2SAT 96
[2020-01-13 09:30] VITALS: BP 109/54; BP 120/75; PULSE 66; RESP 16; O2SAT 95
[2020-01-13 09:46] VITALS: BP 109/54; BP 114/71; PULSE 66; RESP 16; O2SAT 92
[2020-01-13 09:47] VITALS: BP 109/54; BP 125/70; PULSE 66; RESP 16; TEMP 36.1; O2SAT 92
[2020-01-13 10:48] VITALS: BP 109/54; BP 129/83; PULSE 67; RESP 16; TEMP 36.3; O2SAT 97
== END 2020-01-13 10:50 | disposition home or self-care (01) ==
LOC: SDC 07:13 → AC 07:15
PROVIDERS: Anesthesiology; PCP Family Medicine Geriatric Medicine; Referring Provider Urology; Visit Provider Urology
PROC: 0TJB8ZZ Inspection of Bladder, Via Natural or Artificial Opening Endoscopic (ICD-10-PCS; CPT 57410; principal; 2020-01-13 08:45)
DX: N39.0 Urinary tract infection, site not specified (principal); K59.09 Other constipation; I27.21 Secondary pulmonary arterial hypertension; I08.2 Rheumatic disorders of both aortic and tricuspid valves; I10 Essential (primary) hypertension; E03.9 Hypothyroidism, unspecified; G62.9 Polyneuropathy, unspecified; D63.8 Anemia in other chronic diseases classified elsewhere; K21.9 Gastro-esophageal reflux disease without esophagitis; E66.01 Morbid (severe) obesity due to excess calories; Z68.41 Body mass index [BMI] 40.0-44.9, adult; Z87.440 Personal history of urinary (tract) infections; Z90.710 Acquired absence of both cervix and uterus; Z90.49 Acquired absence of other specified parts of digestive tract; Z86.14 Personal history of Methicillin resistant Staphylococcus aureus infection; Z79.82 Long term (current) use of aspirin; Z79.1 Long term (current) use of non-steroidal anti-inflammatories (NSAID); Z79.899 Other long term (current) drug therapy; Z87.891 Personal history of nicotine dependence; Z20.828 Contact with and (suspected) exposure to other viral communicable diseases
CPT/HCPCS: 00910; 52000; 57410; 87635; 94799; J7120; U0003

== ENCOUNTER 2020-01-26 09:57 | Outpatient (RCR) | payer MEDICARE, OTHER, SELFPAY ==
[2020-01-03 00:35] VITALS: BP 156/94; PULSE 89; RESP 18; TEMP 36.3
[2020-01-26 09:47] VITALS: BP 164/78; PULSE 96; RESP 16; TEMP 35.9; BMI 36.2
--- NOTE | 2020-01-26 11:56 | PCM.WC.PN ---
(1) Seroma after procedure Status: Chronic (2) Lumbosacral pain, chronic Status: Chronic Code(s): M54.5 - Low back pain; G89.29 - Other chronic pain (3) S/P flap graft Status: Chronic Code(s): Z98.890 - Other specified postprocedural states (4) Debility Status: Chronic Code(s): R53.81 - Other malaise Type of Wound Date of Service: 01/26/20 Chief Complaint: Lumbosacral pain after closure of sacral pressure sore with a fasciocutaneous flap. History of Wound: Surgery 04/25/19 - 1. Excision sacral pressure sore, Stage IV, with partial ostectomy for osteomyelitis. 2. Reconstruction with lumbar bilobed fasciocutaneous transposition flap (255 cm2) and placement of AmnioFill placental connective tissue powder, 1000 mg. Operative culture - Coag negative Staph and Actinomyces odontolyticus. She was treated with Doxycycline and has finished them. Pathology - negative for osteomyelitis. Prealbumin from 04/26/19 was 20.9. Encourage nutritional supplementation with protein to help the healing process. She is healed. Today she denies fever. Her appetite is ok. Her PCP recently examined her and wanter her evaluated for her lumbosacral pain with the possibility of a persistent seroma. Ultrasound on 11/20/19 showed: 4 cm x 6 x 0.6 cm linear fluid collection deep in the sacral wound. 2 adjacent 1.4 cm x 1.6 cm x 1.1 cm and 1.4 cm x 1.4 cm x 0.4 cm fluid collections. Ordered an ultrasound guided needle aspiration which never got done. Will reorder. Progress of Wound: Flap remains healed. Possilble fluctuation present at the gluteal fold. - Physical Exam Vital Signs Temp Pulse Resp BP 96.7 F L 96 16 164/78 H 01/26/20 09:47 01/26/20 09:47 01/26/20 09:47 01/26/20 09:47 General: Alert, Oriented x3, Cooperative HEENT: Atraumatic Oral: Moist Mucosa Lungs: Clear to auscultation, Normal air movement Cardiovascular: Regular rate, Regular Rhythm Abdomen: Bowel Sounds Present, Soft, Obese Extremities: Capillary Refill Less than 3 Seconds Skin: Incision - Sacral flap incision remains healed. There is some fluctuance in the area but it is difficult to determine if this is fluid or adipose. She has tenderness in the incision area with palpation and when sitting. Wound Measurements and Assessment - Nurse 1 - General Ulcer Measurement Start: 01/26/20 09:46 Freq: Status: Discharge Protocol: Activity Type Activity Date Activity User E-Sign Co-Sign Detail Recorded Client Recorded Date Recorded By Edit Status 01/26/20 10:41 BKG DAEMON Active=>Discharge [id number] 01/26/20 10:41 BKG DAEMON - Nurse 2 - General Ulcer CM Notes Start: 01/26/20 09:46 Freq: Status: Discharge Protocol: Activity Type Activity Date Activity User E-Sign Co-Sign Detail Recorded Client Recorded Date Recorded By Document 01/26/20 10:25 SHIRA [id number] 01/26/20 10:25 Edit Status 01/26/20 10:41 BKG DAEMON Active=>Discharge [id number] 01/26/20 10:41 BKG DAEMON 01/26/20 10:25 Pain Scale: 0-10 Numeric [Pain] -Is Patient Pain Free? Yes - Nurse 3 - General Ulcer D/C NN Start: 01/26/20 09:46 Freq: Status: Discharge Protocol: Activity Type Activity Date Activity User E-Sign Co-Sign Detail Recorded Client Recorded Date Recorded By Document 01/26/20 10:35 [id number] 01/26/20 10:35 Edit Status 01/26/20 10:41 BKG DAEMON Active=>Discharge [id number] 01/26/20 10:41 BKG DAEMON 01/26/20 10:35 -Is Patient Pain Free? Yes - Visit Discharge [Visit Discharge Information] -Discharge Condition Stable -Ambulatory Status Ambulatory,Cane -Transportation Private Auto -Medication Reconcilliation completed Yes & provided to patient/care provider -Clinical Summary of Care Provided Yes Musculoskeletal: No Tenderness to Palpation of Joints or Extremities Neurological: Cranial nerves II-XII grossly intact Psych/Mental Status: Normal Affect, Appropriate Debridement Note Post-Debridement Measurements/Treatment - Nurse 2 - General Ulcer CM Notes Start: 01/26/20 09:46 Freq: Status: Discharge Protocol: Activity Type Activity Date Activity User E-Sign Co-Sign Detail Recorded Client Recorded Date Recorded By Document 01/26/20 10:25 SHIRA [id number] 01/26/20 10:25 01/26/20 10:25 Pain Scale: 0-10 Numeric Is Patient Pain Free? Yes - Nurse 3 - General Ulcer D/C NN Start: 01/26/20 09:46 Freq: Status: Discharge Protocol: Activity Type Activity Date Activity User E-Sign Co-Sign Detail Recorded Client Recorded Date Recorded By Document 01/26/20 10:35 SHIRA [id number] 01/26/20 10:35 01/26/20 10:35 Is Patient Pain Free? Yes - Visit Discharge Discharge Condition Stable Ambulatory Status Ambulatory,Cane Transportation Private Auto Medication Reconcilliation completed & Yes provided to patient/care provider Clinical Summary of Care Provided Yes No debridement was completed today Assessment/Plan Assessment: 1. Sacral pressure sore, Stage IV, healed after fasciocutaneous flap. 2. History of osteomyelitis. 3. s/p repair colovaginal fistula. 4. Lumbosacral pain. 5. MRSA. Plan: Flap remains healed. She should apply lotion daily and massage the area to help soften scarring. Encouraged her not to sit for long periods of time (not for more than an hour at a time). There is residual pain in the lumbosacral area. Reassured her that it should continue to improve with massage. The flap is still remodelling. Pain is worse when she is sitting, especially in a car. Other option if pain is persistent after the next 6 months is to go to Pain Management. Her PCP recently examined her and wanter her evaluated for her lumbosacral pain with the possibility of a persistent seroma. Ultrasound on 11/20/19 showed: 4 cm x 6 x 0.6 cm linear fluid collection deep in the sacral wound. 2 adjacent 1.4 cm x 1.6 cm x 1.1 cm and 1.4 cm x 1.4 cm x 0.4 cm fluid collections. Ordered an ultrasound guided needle aspiration. It never was done. Will reorder. If fluid is obtained will culture. She will follow up after the ultrasound. Right now there is no urgent surgical indication. Followup after aspiration is done. Office Visits / Consults: [id number] L3 Est
== END 2020-01-26 10:40 | disposition home or self-care (01) ==
LOC: WC 09:57
PROVIDERS: PCP Family Medicine Geriatric Medicine; Visit Provider Surgery
DX: M54.5 Low back pain (principal); Z86.14 Personal history of Methicillin resistant Staphylococcus aureus infection; Z98.890 Other specified postprocedural states
CPT/HCPCS: 99213; G0463

== ENCOUNTER → 2020-01-28 11:47 | Outpatient (CLI) | payer MEDICARE, OTHER, SELFPAY ==
[2020-01-26 13:04] VITALS: BMI 37.4
[2020-01-28 12:31] LABS: Absolute Lymphocyte Count 1.41 X10^3/uL (0.83-4.51); Absolute Neutrophil Count 6.9 X10^3/uL (2.0-7.7); Basophil# 0.06 X10^3/uL; Basophil% 0.6 % (0-1); Eosinophil# 0.07 X10^3/uL; Eosinophils% 0.7 % (0-5); Hematocrit 45.2 % (37-47); Hemoglobin 14.3 g/dL (12.0-15.0); Lymphocyte # 1.41 X10^3/ul (4.0); Lymphocyte % 14.6 % (19-41); Mean Corp Hgb Conc 31.6 g/dL (32-36); Mean Corpuscular Hgb 28.8 pg (27.0-32.0); Mean Corpuscular Volume 90.9 fL (81-99); Mean Platelet Vol. 9.2 fl (6.2-12.0); Monocyte% 12.4 % (0-10); NRBC Flagged by Analyzer 0 % (0-5); Neutrophil # 6.89 X10^3/uL (2.7-7.7); Neutrophil % 71.1 % (47-70); Platelet Count 467 K/mm3 (150-450); RBC Distribution Width CV 14.8 % (11.6-14.6); RBC Distribution Width SD 49.2 fl (35.1-43.9); Red Blood Count 4.97 M/mm3 (4.2-5.4); White Blood Count 9.7 K/mm3 (4.4-11.0)
[2020-01-28 13:05] LABS: Vitamin D,25 Hydroxy 23.8 ng/mL
[2020-01-28 13:20] LABS: ALB/GLOB Ratio 0.9 RATIO (0.9-2.4); AST(SGOT) 14 U/L (15-37); Alanine Aminotransfer ALT/SGPT 21 U/L (13-56); Albumin, Serum 3.5 g/dL (3.2-5.0); Alkaline Phosphatase 64 U/L (45-117); Anion Gap 5 (5-15); BUN 21 mg/dL (7-18); BUN/Creat Ratio 31.9 RATIO (10-20); Calcium,Total 9.2 mg/dL (8.5-10.1); Chloride 110 mmol/L (98-107); Creatinine, Serum 0.66 mg/dL (0.55-1.02); EST Glomerular Filtration Rate 95 mL/min (>60); Est Glom Filt Rate - Afr Amer 115 mL/min (>60); Globulin 4.1 g/dL (2.2-4.2); Glucose 95 mg/dL (74-106); Potassium 4.5 mmol/L (3.5-5.1); Protein, Total 7.6 g/dL (6.4-8.2); Sodium Level 142 mmol/L (136-145); Thyroid Stim Hormone (TSH) 1.04 uIU/mL (0.358-3.74)
== END ==
PROVIDERS: PCP Family Medicine Geriatric Medicine; Referring Provider Family Medicine Geriatric Medicine; Visit Provider Family Medicine Geriatric Medicine
DX: E55.9 Vitamin D deficiency, unspecified (principal); I10 Essential (primary) hypertension
CPT/HCPCS: 36415; 80053; 82306; 84443; 85025

== ENCOUNTER → 2020-01-29 14:28 | Outpatient (CLI) | payer MEDICARE, OTHER, SELFPAY ==
[2020-01-26 13:04] VITALS: BMI 37.4
--- NOTE | 2020-01-29 14:32 | US_ITS ---
CLINICAL HISTORY: Female, 69 years old. The posterior fluid collection following skin grafting. PROCEDURE: Ultrasound guided drainage of a postoperative fluid collection. CONSENT: The procedure as well as the benefits and possible complications including infection and bleeding which point to the patient. Informed consent was obtained. 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 TECHNIQUE: Under direct sonographic guidance, a 5 Iraqi catheter was placed into the fluid collection deep to the surgical site in the lower back. 70 cc of tiffanie-colored fluid was aspirated. # of Images: 11 US/Cyst Puncture IMPRESSION: Successful percutaneous drainage of 70 cc of tiffanie-colored fluid from a postoperative fluid collection in the deep lower back. The patient tolerated the procedure well. Electronically Signed: Fidel Rojas, at 15:41 EDT , Service support ,
== END ==
PROVIDERS: PCP Family Medicine Geriatric Medicine; Referring Provider Nurse Practitioner Family; Visit Provider Nurse Practitioner Family
DX: M96.843 Postprocedural seroma of a musculoskeletal structure following other procedure (principal); G89.18 Other acute postprocedural pain
CPT/HCPCS: 10030; 76942

== ENCOUNTER 2020-03-01 08:42 | Outpatient (RCR) | payer MEDICARE, OTHER, SELFPAY ==
[2019-09-03 00:48] VITALS: BP 145/95; PULSE 105; RESP 16; TEMP 36.2
[2020-01-26 13:04] VITALS: BMI 37.4
[2020-03-01 10:57] VITALS: BP 158/75; PULSE 75; RESP 16; TEMP 35.5; BMI 37.4
--- NOTE | 2020-03-01 17:25 | PCM.WC.PN ---
Type of Wound Date of Service: 03/01/20 Chief Complaint: Lumbosacral pain after closure of sacral pressure sore with a fasciocutaneous flap. History of Wound: Surgery 04/25/19 - 1. Excision sacral pressure sore, Stage IV, with partial ostectomy for osteomyelitis. 2. Reconstruction with lumbar bilobed fasciocutaneous transposition flap (255 cm2) and placement of AmnioFill placental connective tissue powder, 1000 mg. Operative culture - Coag negative Staph and Actinomyces odontolyticus. She was treated with Doxycycline and has finished them. Pathology - negative for osteomyelitis. Prealbumin from 04/26/19 was 20.9. Encourage nutritional supplementation with protein to help the healing process. She is healed. Today she denies fever. Her appetite is ok. Her PCP recently examined her and wanter her evaluated for her lumbosacral pain with the possibility of a persistent seroma. Ultrasound on 11/20/19 showed: 4 cm x 6 x 0.6 cm linear fluid collection deep in the sacral wound. 2 adjacent 1.4 cm x 1.6 cm x 1.1 cm and 1.4 cm x 1.4 cm x 0.4 cm fluid collections. Ultrasound guided drainage was done on 01/29/20. About 70 ml was removed. Today she has persistent discomfort when sitting. She denies fever. Progress of Wound: Her flap is healed. - Physical Exam Vital Signs Temp Pulse Resp BP 95.9 F L 75 16 158/75 H 03/01/20 10:57 03/01/20 10:57 03/01/20 10:57 03/01/20 10:57 General: Alert, Oriented x3 HEENT: PERRLA, EOMI Oral: Moist Mucosa Neck: Supple Lungs: Clear to auscultation Cardiovascular: Regular rate, Regular Rhythm Abdomen: Soft, Non-Distended Skin: Incision - Sacral flap incision remains healed. There is no clinical evidence of seroma at this time. There is some incisional firmness away from the sacral area that has some discomfort with palpation. No clinical evidence of infection. Wound Measurements and Assessment WC - Nurse 1 - General Ulcer Measurement Start: 03/01/20 10:57 Freq: Status: Discharge Protocol: Activity Type Activity Date Activity User E-Sign Co-Sign Detail Recorded Client Recorded Date Recorded By Edit Status 03/01/20 12:04 BKG DAEMON Active=>Discharge [id number] 03/01/20 12:04 BKG DAEMON - Nurse 2 - General Ulcer CM Notes Start: 03/01/20 10:57 Freq: Status: Discharge Protocol: Activity Type Activity Date Activity User E-Sign Co-Sign Detail Recorded Client Recorded Date Recorded By Document 03/01/20 11:44 [id number] 03/01/20 11:45 Edit Status 03/01/20 12:04 BKG DAEMON Active=>Discharge [id number] 03/01/20 12:04 BKG DAEMON 03/01/20 11:44 Pain Scale: 0-10 Numeric [Pain] -Is Patient Pain Free? Yes [facility] Nurse 3 - General Ulcer D/C NN Start: 03/01/20 10:57 Freq: Status: Discharge Protocol: Activity Type Activity Date Activity User E-Sign Co-Sign Detail Recorded Client Recorded Date Recorded By Document 03/01/20 11:46 [id number] 03/01/20 11:46 Edit Status 03/01/20 12:04 BKG DAEMON Active=>Discharge [id number] 03/01/20 12:04 BKG DAEMON 03/01/20 11:46 -Is Patient Pain Free? Yes - Visit Discharge [Visit Discharge Information] -Discharge Condition Stable -Ambulatory Status Ambulatory -Transportation Private Auto -Medication Reconcilliation completed Yes & provided to patient/care provider -Clinical Summary of Care Provided Yes Neurological: Cranial nerves II-XII grossly intact Psych/Mental Status: Normal Affect, Appropriate Debridement Note Post-Debridement Measurements/Treatment - Nurse 2 - General Ulcer CM Notes Start: 03/01/20 10:57 Freq: Status: Discharge Protocol: Activity Type Activity Date Activity User E-Sign Co-Sign Detail Recorded Client Recorded Date Recorded By Document 03/01/20 11:44 [id number] 03/01/20 11:45 03/01/20 11:44 Pain Scale: 0-10 Numeric Is Patient Pain Free? Yes - Nurse 3 - General Ulcer D/C NN Start: 03/01/20 10:57 Freq: Status: Discharge Protocol: Activity Type Activity Date Activity User E-Sign Co-Sign Detail Recorded Client Recorded Date Recorded By Document 03/01/20 11:46 [id number] 03/01/20 11:46 03/01/20 11:46 Is Patient Pain Free? Yes WC - Visit Discharge Discharge Condition Stable Ambulatory Status Ambulatory Transportation Private Auto Medication Reconcilliation completed & Yes provided to patient/care provider Clinical Summary of Care Provided Yes Wound debrided: No debridement was completed today. Assessment/Plan Assessment: 1. Sacral pressure sore, Stage IV, healed after fasciocutaneous flap. 2. History of osteomyelitis. 3. s/p repair colovaginal fistula. 4. Lumbosacral pain. 5. MRSA. 6. Post flap seroma, recently drained. Plan: Flap remains healed. She should apply lotion daily and massage the area to help soften scarring. Encouraged her not to sit for long periods of time (not for more than an hour at a time). There is residual incisional discomfort away from the sacral area. There is some firmness as well in the healing scars probably residual fat necrosis that should continue to resolve over time with massage. Pain Management was recommended and the patient is not interested in any pain medication at this time and doesn't want any injections. Reassured her that it should continue to improve with massage. Clinically there is no evidence of recurrent seroma after the ultrasound drainage. She is discharged from the W[facility] Center at this time. If she has persistent discomfort in the future, she can followup in the office to discuss possible localized excision in the areas of persistent firmness in the incision areas away from the sacrum. If localized excision is done, tissue would be sent to Pathology for analysis and to Microbiology for culture. Office Visits / Consults: [id number] OV L3 Est - ICD-10 - L89.154, Z89.890, M86.9, M54.5, L76.33, A49.02
== END 2020-03-01 12:03 | disposition home or self-care (01) ==
LOC: WC 08:42
PROVIDERS: PCP Family Medicine Geriatric Medicine; Visit Provider Nurse Practitioner Family
DX: Z09 Encounter for follow-up examination after completed treatment for conditions other than malignant neoplasm (principal); F32.9 Major depressive disorder, single episode, unspecified; Z86.14 Personal history of Methicillin resistant Staphylococcus aureus infection; Z87.39 Personal history of other diseases of the musculoskeletal system and connective tissue; Z98.890 Other specified postprocedural states; Z79.899 Other long term (current) drug therapy; M54.5 Low back pain
CPT/HCPCS: 99212; G0463

== ENCOUNTER → 2020-04-27 11:20 | Outpatient (CLI) | payer MEDICARE, OTHER, SELFPAY ==
[2020-04-27 12:14] LABS: Absolute Lymphocyte Count 1.53 X10^3/uL (0.83-4.51); Absolute Neutrophil Count 5.6 X10^3/uL (2.0-7.7); Basophil# 0.04 X10^3/uL; Basophil% 0.5 % (0-1); Eosinophil# 0.11 X10^3/uL; Eosinophils% 1.3 % (0-5); Hematocrit 46.8 % (37-47); Hemoglobin 14.3 g/dL (12.0-15.0); Lymphocyte # 1.53 X10^3/ul (4.0); Lymphocyte % 18.5 % (19-41); Mean Corp Hgb Conc 30.6 g/dL (32-36); Mean Corpuscular Volume 91.8 fL (81-99); Mean Platelet Vol. 9.4 fl (6.2-12.0); Monocyte# 0.93 X10^3/uL; Monocyte% 11.2 % (0-10); NRBC Flagged by Analyzer 0 % (0-5); Neutrophil # 5.64 X10^3/uL (2.7-7.7); Platelet Count 375 K/mm3 (150-450); RBC Distribution Width SD 50.4 fl (35.1-43.9); White Blood Count 8.3 K/mm3 (4.4-11.0)
[2020-04-27 12:32] LABS: Vitamin D,25 Hydroxy 23.4 ng/mL
[2020-04-27 12:42] LABS: ALB/GLOB Ratio 0.8 RATIO (0.9-2.4); AST(SGOT) 18 U/L (15-37); Alanine Aminotransfer ALT/SGPT 30 U/L (13-56); Albumin, Serum 3.7 g/dL (3.2-5.0); Alkaline Phosphatase 82 U/L (45-117); Anion Gap 8 (5-15); BUN 22 mg/dL (7-18); Calcium,Total 9.6 mg/dL (8.5-10.1); Chloride 109 mmol/L (98-107); Creatinine, Serum 0.88 mg/dL (0.55-1.02); EST Glomerular Filtration Rate 68 mL/min (>60); Est Glom Filt Rate - Afr Amer 82 mL/min (>60); Globulin 4.4 g/dL (2.2-4.2); Glucose 108 mg/dL (74-106); Protein, Total 8.1 g/dL (6.4-8.2); Sodium Level 141 mmol/L (136-145); Thyroid Stim Hormone (TSH) 1.09 uIU/mL (0.358-3.74)
== END ==
PROVIDERS: PCP Family Medicine Geriatric Medicine; Visit Provider Family Medicine Geriatric Medicine
DX: I10 Essential (primary) hypertension (principal); E55.9 Vitamin D deficiency, unspecified
CPT/HCPCS: 36415; 80053; 82306; 84443; 85025

== ENCOUNTER → 2020-06-03 11:28 | Outpatient (CLI) | payer MEDICARE, OTHER, SELFPAY ==
--- NOTE | 2020-06-03 11:32 | RAD_ITS ---
STUDY: X-RAY - LUMBOSACRAL SPINE REASON FOR EXAM: Female, 69 years old. BACK PAIN S/P INJURY WHILE SHOVELING SNOW ON 05/29 TECHNIQUE: 6 view(s) of the lumbosacral spine were obtained. COMPARISON: 12/12/2016 FINDINGS: Normal lumbar lordosis. There is no substantial scoliosis. There is normal alignment of the vertebrae. No subluxation on the flexion or extension views to suggest instability. Normal vertebral bodies and endplates. Normal disc space heights. Facet hypertrophy the lower lumbar spine consistent with degenerative disc disease. Normal bilateral sacral ala, sacroiliac joints, and visualized sacrum. Normal visualized soft tissue structures. RAD/L/S Spine w Bend Min 6 Vw IMPRESSION: Degenerative disc disease lower lumbar spine. No instability. Electronically Signed: Oren Malone MD at 16:54 EST Tel , Service support ,
== END ==
PROVIDERS: PCP Family Medicine Geriatric Medicine; Referring Provider Family Medicine Geriatric Medicine; Visit Provider Family Medicine Geriatric Medicine
DX: M51.36 Other intervertebral disc degeneration, lumbar region (principal)
CPT/HCPCS: 72114

== ENCOUNTER 2020-06-24 12:30 | Outpatient (RCR) | payer MEDICARE, OTHER, SELFPAY ==
--- NOTE | 2020-03-17 16:19 | HP.PTEVAL_ITS ---
Patient's Visit Information CHARISSA GUNTER is a 69 year old F referred to Physical Therapy by Dr. Ger Johnson MD with a diagnosis of B hip OA and obesity. Date of Evaluation: 03/17/20 Physical Therapist: ESPERANZA Law - Visit Plan Frequency: 2x /Week Duration: 2 Months Plan: 2X/ week for 8 weeks for AT for B hip AROM (including into flexion), B hip strength, core strength, gait training with HEP - Subjective Pt needs B hip replacements and the L is the worst. She needs to go through PT first. Pt keeps getting recurring UTI's and that has to stop prior to surgery. In the meantime the Dr wants her to improve her ROM and strength. She has had B hip pain for years but she has had other issues that prevented her from having surgery. She has just started walking with the cane this summer which is a step down from her rollator. SHe can walk a couple minutes without the cane but not long distances. She has 2 steps to get into the house with no railing but she has a gripper and a quad cane. She has had no falls recent. She is not sleeping but unrelated to hip pain. She feels that she has weakness in her legs if she over walks with her cane. Pt has been bed bound for a long time. - Pain R hip pain Pain Intensity (Out of 10): 0 Pain Intensity Range: 4 Comment: with walking L hip pain Pain Intensity (Out of 10): 0 Pain Intensity Range: 8 Comment: getting off the toilet no pressure through L foot - Objective Gait: walks with a straight cane with WBOS and no heel to toe gait pattern. B patella DTR's 2+/3. L HIP FLEX 45 DEGREES AA ROM, ER 20 degrees AROM, 5 degrees IR of the hip. R hip flex 60 degrees AAROM, ER 20 degrees AROM, 5 degrees IR of the hip. LE MMT: B hip flex 3-/5, B hip abd sitting 4-/5, B hip add 4/5 sitting, B knee flex 4-/5 and B knee ext 4-/5. Able to 1/2 normal ROM bridge. Sit to stand: needs B UE to get up out of a chair. - Goals Goal 1:: I HEP Goal Time Frame: 6-8 Weeks Goal 2:: Increase B hip strength by 1/2 muscle grade (at time of the eval: LE MMT: B hip flex 3-/5, B hip abd sitting 4-/5, B hip add 4/5 sitting, B knee flex 4-/5 and B knee ext 4-/5. Able to 1/2 normal ROM bridge). Goal Time Frame: 6-8 Weeks Goal 3:: Walk with more normal gait pattern with heel to toe and less WBOS with straight cane Goal Time Frame: 6-8 Weeks Goal 4:: Increase B hip flexion AAROM to 80 degrees flexion Goal Time Frame: 6-8 Weeks - Rehabilitation Potential Rehabilitation Potential: Good - Anticipated Interventions Patient/Client Instruction: Educate patient on: Condition, Plan of Care For the Purpose of:: To decrease pain, To increase ROM, To improve nutrient delivery to tissue, To improve muscle performance and motor function, To improve ability to perform ADL's, To increase tolerance to activity/condition/position, To improve performance and independence with ADL's, To decrease level of supervision to perform tasks, To improve ability of physical actions for home/community/work/leisure, To improve gait and locomotor functions, To improve health of tissue, To decrease soft tissue restriction, To increase flexibility/ROM, To improve endurance, To improve balance, To improve safety with gait Therapeutic Exercise to Include: Strength training, Endurance training, Balance training, Postural training, Flexibilty training, Gait and locomotor training, Neuromotor development, Active ROM For the Purpose of:: To decrease pain, To decrease swelling/inflammation, To increase ROM, To improve nutrient delivery to tissue, To improve muscle performance and motor function, To improve ability to perform ADL's, To increase tolerance to activity/condition/position, To improve performance and independence with ADL's, To decrease level of supervision to perform tasks, To improve ability of physical actions for home/community/work/leisure, To improve gait and locomotor functions, To improve health of tissue, To decrease soft tissue restriction, To increase flexibility/ROM, To improve endurance, To improve balance, To improve safety with gait Functional Training to Include: Gait training For the Purpose of:: To improve gait and locomotor functions, To improve safety with gait Thank you for the opportunity to evaluate your patient. For Medicare and Medicare HMO plans, please review the plan of care and approve it. It will need to be FAXED BACK to us at [phone] for Medicare purposes. For Medicare only, by signing this I certify the plan of care. Please let me know if there are questions or concerns regarding this plan of care. Physician Signature: Date:
--- NOTE | 2020-04-28 12:04 | HP.PTREVAL_ITS ---
Dr. Ger Johnson MD, It has been my pleasure to treat CHARISSA GUNTER over the last 10 visits for B hip OA and obesity. Please see the progress note below for an update on the physical therapy plan of care! Subjective: Pt reports that she is a little better and her Dr is ok with her continuing. She sees the surgeon on Jul 11 and hoping her UTI's are cleared by then so she can have surgery after a few months. She has been having some sciatic exercises at home due to pain. Objective/Function: R hip AROM 73. L hip AROM 63. LE MMT: B hip flex 3/5, B hip abd sitting 4-/5, B hip add 4/5 sitting, B knee flex 4-/5 and B knee ext 4- /5. Able to 1/2 normal ROM bridge). Plan Plan: 2X/ week for 4 weeks to increase B hip and core strength, increase B hip AROM, and gait mechanics with HEP. *f/u with new HEP hip flexor/quad stretch. *Add rest of DLP tasks next Goals Goal 1:: I HEP Goal Time Frame: 6-8 Weeks Goal Progress: Progressing Goal 2:: Increase B hip strength by 1/2 muscle grade (at time of the eval: LE MMT: B hip flex 3-/5, B hip abd sitting 4-/5, B hip add 4/5 sitting, B knee flex 4-/5 and B knee ext 4-/5. Able to 1/2 normal ROM bridge). Goal Time Frame: 6-8 Weeks Goal 3:: Walk with more normal gait pattern with heel to toe and less WBOS with straight cane Goal Time Frame: 6-8 Weeks Goal Progress: Progressing Goal 4:: Increase B hip flexion AAROM to 80 degrees flexion Goal Time Frame: 6-8 Weeks Goal Progress: Progressing Anticipated Interventions Patient/Client Instruction: Educate patient on: Condition, Plan of Care For the Purpose of:: To decrease pain, To increase ROM, To improve nutrient delivery to tissue, To improve muscle performance and motor function, To improve ability to perform ADL's, To increase tolerance to activity/condition/position, To improve performance and independence with ADL's, To decrease level of supervision to perform tasks, To improve ability of physical actions for h ome/community/work/leisure, To improve gait and locomotor functions, To improve health of tissue, To decrease soft tissue restriction, To increase flexibility/ROM, To improve endurance, To improve balance, To improve safety with gait Therapeutic Exercise to Include: Strength training, Endurance training, Balance training, Postural training, Flexibilty training, Gait and locomotor training, Neuromotor development, Active ROM For the Purpose of:: To decrease pain, To decrease swelling/inflammation, To increase ROM, To improve nutrient delivery to tissue, To improve muscle performance and motor function, To improve ability to perform ADL's, To increase tolerance to activity/condition/position, To improve performance and independence with ADL's, To decrease level of supervision to perform tasks, To improve ability of physical actions for home/community/work/leisure, To improve gait and locomotor functions, To improve health of tissue, To decrease soft tissue restriction, To increase flexibility/ROM, To improve endurance, To improve balance, To improve safety with gait Functional Training to Include: Gait training For the Purpose of:: To improve gait and locomotor functions, To improve safety with gait Please do not hesitate to contact me at [phone] by phone or if you have questions or concerns regarding this new plan of care! Sincerely, Suha Sarmiento MPT
--- NOTE | 2020-05-26 12:35 | HP.PTREVAL ---
Dr. Ger Johnson MD, It has been my pleasure to treat CHARISSA GUNTER over the last 18 visits for B hip OA and obesity. Please see the progress note below for an update on the physical therapy plan of care! Subjective: Pt loves the water and feels better in the water. Pt upset today as she is still having UTI issues and she just wants to get her hip surgery and can not afford I H&W program Objective/Function: Gait: walks with decrease stance time on the L LE with a straight cane with increase antalgic gait. Walks with WBOS. LE MMT: B hip flex 3-/5, B hip abd sitting 4/5, B hip add 4/5 sitting, B knee flex 4-/5 and B knee ext 4-/5. Sit to stand: needs UE to get out of a chair. Plan Plan: Pt to be seen 2 X/ week (1 X/ week in water and 1X/ week on land to learn I home program.... mat and some standing exerrcises and how to walk with the walker Goals Goal 1:: I HEP Goal Time Frame: 6-8 Weeks Goal Progress: Progressing Goal 2:: Increase B hip strength by 1/2 muscle grade (at time of the eval: LE MMT: B hip flex 3-/5, B hip abd sitting 4-/5, B hip add 4/5 sitting, B knee flex 4-/5 and B knee ext 4-/5. Able to 1/2 normal ROM bridge). Goal Time Frame: 6-8 Weeks Goal Progress: Progressing Goal 3:: Walk with more normal gait pattern with heel to toe and less WBOS with straight cane Goal Time Frame: 6-8 Weeks Goal Progress: Progressing Goal 4:: Increase B hip flexion AAROM to 80 degrees flexion Goal Time Frame: 6-8 Weeks Goal Progress: Progressing Anticipated Interventions Patient/Client Instruction: Educate patient on: Condition, Plan of Care For the Purpose of:: To decrease pain, To increase ROM, To improve nutrient delivery to tissue, To improve muscle performance and motor function, To improve ability to perform ADL's, To increase tolerance to activity/condition/position, To improve performance and independence with ADL's, To decrease level of supervision to perform tasks, To improve ability of physical actions for home/community/work/leisure, To improve gait and locomotor functions, To improve health of tissue, To decrease soft tissue restriction, To increase flexibility/ROM, To improve endurance, To improve balance, To improve safety with gait Therapeutic Exercise to Include: Strength training, Endurance training, Balance training, Postural training, Flexibilty training, Gait and locomotor training, Neuromotor development, Active ROM For the Purpose of:: To decrease pain, To decrease swelling/inflammation, To increase ROM, To improve nutrient delivery to tissue, To improve muscle performance and motor function, To improve ability to perform ADL's, To increase tolerance to activity/condition/position, To improve performance and independence with ADL's, To decrease level of supervision to perform tasks, To improve ability of physical actions for home/community/work/leisure, To improve gait and locomotor functions, To improve health of tissue, To decrease soft tissue restriction, To increase flexibility/ROM, To improve endurance, To improve balance, To improve safety with gait Functional Training to Include: Gait training For the Purpose of:: To improve gait and locomotor functions, To improve safety with gait Please do not hesitate to contact me at [phone] by phone or if you have questions or concerns regarding this new plan of care! Sincerely, Suha Sarmiento MPT
== END 2020-06-24 19:00 | disposition home or self-care (01) ==
LOC: PT 12:30
PROVIDERS: PCP Family Medicine Geriatric Medicine; Visit Provider Specialist
DX: M16.0 Bilateral primary osteoarthritis of hip (principal); E66.8 Other obesity
CPT/HCPCS: 97110; 97113; 97162; 97530

== ENCOUNTER → 2020-07-01 09:53 | Outpatient (CLI) | payer MEDICARE, OTHER, SELFPAY ==
[2020-06-29 09:57] VITALS: BMI 37.4
--- NOTE | 2020-07-01 09:58 | MRI_ITS ---
STUDY: MRI LUMBAR SPINE WITHOUT CONTRAST REASON FOR EXAM: Female, 70 years old. low back pain, rt hip/leg pain -- patient has 1/2 melton shape scar low back from pressure wound TECHNIQUE: Standardized fat and water weighted pulse sequences were obtained in the sagittal and axial planes. COMPARISON: X-ray 06/03/2020, MRI 03/27/2011 FINDINGS: T12-L1: Normal endplates. Normal disc height, hydration and morphology. Normal bilateral facet joints. Normal central canal and bilateral lateral recesses. Normal bilateral intervertebral neural foramina. Normal lumbar lordosis. Mild levoscoliosis. Normal conus medullaris that terminates at the T12/L1. L1-2: Disc desiccation but no disc protrusion, spinal stenosis, or neural foraminal stenosis. L2-3: Normal endplates. Normal disc height, hydration and morphology. Normal bilateral facet joints. Normal central canal and bilateral lateral recesses. Normal bilateral intervertebral neural foramina. L3-4: Mild bilateral facet hypertrophy and ligament flavum hypertrophy. No change in the mild bilobed disc protrusion which produces mild spinal stenosis with mild bilateral lateral recess stenosis and mild bilateral neural foraminal stenosis. L4-5: Mild bilateral facet hypertrophy and ligament flavum hypertrophy. No change in the mild broad disc protrusion which produces mild spinal stenosis with mild bilateral lateral recess stenosis and mild bilateral neural foraminal stenosis. L5-S1: Disc desiccation but no disc protrusion, spinal stenosis, or neural foraminal stenosis. Normal visualized sacral ala. There are thin fluid collections between the subcutaneous fat in the paraspinous musculature posteriorly. MRI/Spine Lumbar (Routine) IMPRESSION: 1. No change in mild degenerative disc disease. 2. Thin seroma between the posterior subcutaneous fat and the paraspinous musculature. Electronically Signed: Oren Malone MD at 11:58 EST Tel , Service support ,
== END ==
PROVIDERS: PCP Family Medicine Geriatric Medicine; Referring Provider Family Medicine Geriatric Medicine; Visit Provider Family Medicine Geriatric Medicine
DX: M54.5 Low back pain (principal)
CPT/HCPCS: 72148

== ENCOUNTER → 2020-07-13 13:43 | Outpatient (CLI) | payer MEDICARE, OTHER, SELFPAY ==
[2020-06-29 09:57] VITALS: BMI 37.4
--- NOTE | 2020-07-13 13:44 | ECHOD_ITS ---
Reason For Study: AORTIC STENOSIS Procedure This was a 2D Doppler, Color Flow transthoracic echocardiogram. Exam performed in department. Left Ventricle Normal LV size. Left ventricular systolic function is normal. The estimated ejection fraction is 60 %. Stage 1 diastolic dysfunction. No regional wall motion abnormalities noted. Right Ventricle Normal RV size. Normal systolic function. Atria Normal left atrium. Normal right atrium. Patent foramen ovale. Mitral Valve There is mild to moderate mitral annular calcification. Mild focal mitral valve calcification, bileaflet. Tricuspid Valve Normal tricuspid valve. Mild (1+) tricuspid valve insufficiency. Pulmonary artery systolic pressure is 34 mmHg. Aortic Valve Trisinus/trileaflet aortic valve. Moderate focal aortic valve calcification. Peak aortic valve gradient 82 mmHg. Mean aortic valve gradient 52 mmHg. Severe aortic stenosis. Pulmonic Valve Normal pulmonic valve. Great Vessels Normal aortic root. The pulmonary artery is normal size. Normal inferior vena cava. Pericardium/Pleural No pericardial effusion. Medication 22 gauge I.V. with prn adaptor inserted into right arm. Performed a rapid injection of agitated mix of 9 cc saline and 1cc air to assess for atrial septal defect. MMode/2D Measurements & Calculations LVIDd: 3.3 cm IVSd: 1.4 cm LVOT diam: 2.0 cm LVIDs: 2.3 cm LVPWd: 1.4 cm RVDd: 3.2 cm FS: 30.7 % LVOT area: 3.2 cm2 Ao root diam: 3.1 cm LAV(MOD-bp): 41.3 ml LVAd ap4: 30.8 cm2 LAV(MOD-bp) Indexed: 20.3 ml/m2 EDV(MOD-sp4): 102.2 ml LAV(MOD-sp2): 47.1 ml EDV(sp4-el): 106.4 ml LAV(MOD-sp4): 35.6 ml LVAs ap4: 16.8 cm2 ESV(MOD-sp4): 37.5 ml ESV(sp4-el): 38.1 ml EF(MOD-sp4): 63.4 % EF(sp4-el): 64.2 % SV(MOD-sp4): 64.8 ml SV(sp4-el): 68.4 ml LA A4 area: 14.7 cm2 LA dimension(2D): 3.3 cm RA A4 area: 9.7 cm2 Time Measurements MV dec time: 0.26 sec Doppler Measurements & Calculations MV E max gurpreet: 88.0 cm/sec Lat Peak E' Gurpreet: 6.9 cm/sec Med Peak E' Gurpreet: 6.0 cm/sec MV A max gurpreet: 134.9 cm/sec E/E' lat: 12.8 E/E' med: 14.6 MV E/A: 0.65 MV V2 max: 132.0 cm/sec MV P1/2t max gurpreet: 97.0 cm/sec Ao V2 max: 453.5 cm/sec MV max P.0 mmHg MV P1/2t: 98.4 msec Ao max P.3 mmHg MV V2 mean: 76.0 cm/sec MV dec slope: 288.7 cm/sec2 Ao V2 mean: 345.4 cm/sec MV mean P.6 mmHg MVA(P1/2t): 2.2 cm2 Ao mean P.3 mmHg MV V2 VTI: 32.8 cm Ao V2 VTI: 105.6 cm MVA(VTI): 3.1 cm2 MONICA(I,D): 0.97 cm2 MONICA(V,D): 0.88 cm2 LV V1 max: 125.8 cm/sec SV(LVOT): 101.9 ml PA V2 max: 91.6 cm/sec LV V1 max P.3 mmHg LV V1 mean P.4 mmHg LV V1 mean: 85.5 cm/sec LV V1 VTI: 32.3 cm TR max gurpreet: 269.9 cm/sec TR max P.1 mmHg Interpretation Summary Normal LV size. Left ventricular systolic function is normal. The estimated ejection fraction is 60 %. Mean aortic valve gradient 52 mmHg. Severe aortic stenosis. Stage 1 diastolic dysfunction. Moderate focal aortic valve calcification. Compared to the previous the aortic valve appears to be narrower. And is in the severe stenotic range. Ordering Physician: Mitchell Henderson Referring Physician: VIRGEN SCHMIDT Performed By: Lindsey Ballesteros RDCS
== END ==
PROVIDERS: PCP Family Medicine Geriatric Medicine; Referring Provider Internal Medicine Cardiovascular Disease; Visit Provider Internal Medicine Cardiovascular Disease
DX: I35.0 Nonrheumatic aortic (valve) stenosis (principal)
CPT/HCPCS: 93306; A4216

== ENCOUNTER → 2020-08-03 12:02 | Outpatient (CLI) | payer MEDICARE, OTHER, SELFPAY ==
[2020-06-29 09:57] VITALS: BMI 37.4
[2020-08-03 12:27] LABS: Absolute Lymphocyte Count 1.88 X10^3/uL (0.83-4.51); Absolute Neutrophil Count 6.2 X10^3/uL (2.0-7.7); Basophil# 0.06 X10^3/uL; Basophil% 0.6 % (0-1); Eosinophil# 0.08 X10^3/uL; Eosinophils% 0.8 % (0-5); Hematocrit 49.7 % (37-47); Hemoglobin 15.8 g/dL (12.0-15.0); Lymphocyte # 1.88 X10^3/ul (4.0); Mean Corp Hgb Conc 31.8 g/dL (32-36); Mean Corpuscular Hgb 29.9 pg (27.0-32.0); Mean Platelet Vol. 9.2 fl (6.2-12.0); Monocyte# 1.12 X10^3/uL; Monocyte% 11.9 % (0-10); NRBC Flagged by Analyzer 0 % (0-5); Neutrophil # 6.21 X10^3/uL (2.7-7.7); Platelet Count 434 K/mm3 (150-450); RBC Distribution Width CV 14.2 % (11.6-14.6); RBC Distribution Width SD 49.4 fl (35.1-43.9); Red Blood Count 5.29 M/mm3 (4.2-5.4); White Blood Count 9.4 K/mm3 (4.4-11.0)
[2020-08-03 12:33] LABS: Vitamin D,25 Hydroxy 21.7 ng/mL
[2020-08-03 12:58] LABS: AST(SGOT) 22 U/L (15-37); Alanine Aminotransfer ALT/SGPT 32 U/L (13-56); Albumin, Serum 3.9 g/dL (3.2-5.0); Alkaline Phosphatase 62 U/L (45-117); Anion Gap 8 (5-15); BUN 21 mg/dL (7-18); BUN/Creat Ratio 21.6 RATIO (10-20); Calcium,Total 9.7 mg/dL (8.5-10.1); Chloride 108 mmol/L (98-107); Creatinine, Serum 0.97 mg/dL (0.55-1.02); EST Glomerular Filtration Rate 60 mL/min (>60); Est Glom Filt Rate - Afr Amer 73 mL/min (>60); Glucose 83 mg/dL (74-106); Potassium 4.7 mmol/L (3.5-5.1); Protein, Total 7.9 g/dL (6.4-8.2); Sodium Level 142 mmol/L (136-145)
== END ==
PROVIDERS: PCP Family Medicine Geriatric Medicine; Visit Provider Family Medicine Geriatric Medicine
DX: E55.9 Vitamin D deficiency, unspecified (principal); I10 Essential (primary) hypertension
CPT/HCPCS: 36415; 80053; 82306; 84443; 85025

== ENCOUNTER 2020-08-23 09:52 | Day surgery (SDC) | payer MEDICARE, OTHER, SELFPAY ==
[2020-06-29 09:57] VITALS: BMI 37.4
--- NOTE | 2020-08-12 11:20 | RAD_ITS ---
STUDY: X-RAY CHEST REASON FOR EXAM: Female, 70 years old. aortic stenosis TECHNIQUE: PA and lateral views of the chest. COMPARISON: None. FINDINGS: The lungs are clear and expanded. There is no demonstrated pleural abnormality. Normal size heart. Normal mediastinum and lacey. Normal visualized pulmonary arteries. Atherosclerosis of the aortic arch. There are diffuse degenerative changes of the visualized thoracic spine. Normal visualized ribs, clavicles, and shoulders. There is no demonstrated abnormality of the visualized soft tissue structures of the upper abdomen. RAD/Chest PA and Lateral IMPRESSION: No acute cardiopulmonary process. Electronically Signed: Jey Mclean MD (Brooks) at 8:58 EST , Service support ,
[2020-08-12 12:15] LABS: Absolute Lymphocyte Count 1.69 X10^3/uL (0.83-4.51); Absolute Neutrophil Count 5.1 X10^3/uL (2.0-7.7); Basophil# 0.04 X10^3/uL; Basophil% 0.5 % (0-1); Eosinophil# 0.08 X10^3/uL; Hematocrit 49.1 % (37-47); Hemoglobin 15.4 g/dL (12.0-15.0); Lymphocyte # 1.69 X10^3/ul (4.0); Lymphocyte % 21.4 % (19-41); Mean Corp Hgb Conc 31.4 g/dL (32-36); Mean Corpuscular Hgb 29.6 pg (27.0-32.0); Mean Corpuscular Volume 94.4 fL (81-99); Mean Platelet Vol. 9.4 fl (6.2-12.0); Monocyte# 0.88 X10^3/uL; Monocyte% 11.2 % (0-10); NRBC Flagged by Analyzer 0 % (0-5); Neutrophil # 5.13 X10^3/uL (2.7-7.7); Platelet Count 380 K/mm3 (150-450); RBC Distribution Width SD 48.3 fl (35.1-43.9); White Blood Count 7.9 K/mm3 (4.4-11.0)
[2020-08-12 12:41] LABS: Anion Gap 6 (5-15); BUN 22 mg/dL (7-18); BUN/Creat Ratio 29.1 RATIO (10-20); Calcium,Total 9.3 mg/dL (8.5-10.1); Chloride 109 mmol/L (98-107); Creatinine, Serum 0.76 mg/dL (0.55-1.02); EST Glomerular Filtration Rate 81 mL/min (>60); Est Glom Filt Rate - Afr Amer 98 mL/min (>60); Glucose 80 mg/dL (74-106); Potassium 4.1 mmol/L (3.5-5.1); Sodium Level 143 mmol/L (136-145)
[2020-08-20 08:21] VITALS: BMI 37.4
[2020-08-23] VITALS (12 sets, daily range): BP systolic 104–140; BP diastolic 52–87; PULSE 60–77; RESP 14–18; TEMP 36.6–36.8; O2SAT 96–98
[2020-08-23] MEDS: 0.9% Normal Saline 1,000 ML 80 ML IV (14:45)
--- NOTE | 2020-08-23 14:46 | CL.D_ITS ---
Patient Name: CHARISSA GUNTER Study Date: 08/23/2020 Performing: Mitchell Henderson MD Ht: 64.17 inches 163 cm : 1950 Wt: 218.26 lbs 99 kg Age: 70 Gender: female BSA: 2.03 PROCEDURE(S) PERFORMED [id number]/COR CLINICAL PROFILE AND INDICATIONS Indications: Valvular Disease Heart Failure: None Stress/Imaging Stress/Image Study Performed: No CONCLUSIONS Severe aortic stenosis and moderate to moderately severe disease noted in the mid right coronary pool ry as well as the proximal posterior descending artery. RECOMMENDATIONS Would recommend PCI to the right coronary artery and interval evaluation for TAVR or AVR of the aort ic valve. DESCRIPTION OF PROCEDURE The patient arrived to the procedure lab. The risks and benefits of the procedure as well as a full d escription of our services here and current unavailability of surgical backup were fully explained to the patient and/or their significant other prior to the catheterization. The Timeout was completed, verifying the correct patient and procedure. The patient's procedural site was prepped and draped in the usual fashion. Local anesthetic was given subcutaneously to right radial region with Lidocaine 2% . Using a modified Seldinger technique, arterial access was obtained via the right radial artery, a 6 Fr sheath was inserted. Left Coronary Artery selective angiography was performed in multiple views u sing a 5 Fr. 4.0 Lissie catheter. Right Coronary Artery selective angiography was then performed in mu ltiple views using a 5 Fr. 4.0 Lissie catheter. Left Coronary Artery selective angiography was perform ed in multiple views using a 5 Fr. JL3.5 catheter. CORONARY ANGIOGRAPHY DOMINANCE: Right Dominant LEFT HEART ASSESSMENT Left Ventricular Ejection Fraction: by Echo 60 % Normal Left Ventricular systolic function LEFT MAIN: Mild calcification, Dual ostia LEFT ANTERIOR DESCENDING ARTERY: Mild luminal irregularities less than 30%, Mild calcification CIRCUMFLEX ARTERY: Severe calcification, Mild luminal irregularities less than 30% RIGHT CORONARY ARTERY: MID RCA: long 70 % Stenosis RT PDA: Proximal - 80 % Stenosis VALVE FINDINGS: Aortic Valve Calcification - severe Aortic Valve Stenosis - severe COMPLICATIONS PROCEDURE MEDICATIONS Versed 1 mg IV Fentanyl 50 mcg IV Versed 1 mg IV Versed 1 mg IV Baby Aspirin (81mg) 1 Tabs PO @ 08/23/2020 12:00:45 Heparin 6000 unit(s) IV 08/23/2020 14:39:52 SUMMARY OF HEMODYNAMIC DATA Time AIR REST ECG 10:28:00 AO 129/74 (99) SA 14:17:42 Signed By Mitchell Henderson MD On 08/23/2020 2:45:14 PM Mitchell Henderson MD
--- NOTE | 2020-08-23 16:00 | EKG12_ITS ---
Test Reason : AM EKG Blood Pressure : / mmHG Vent. Rate : 071 BPM Atrial Rate : 071 BPM P-R Int : 162 ms QRS Dur : 080 ms QT Int : 396 ms P-R-T Axes : 052 -17 074 degrees QTc Int : 430 ms Normal sinus rhythm Normal ECG When compared with ECG of 23-AUG-2020 16:09, MANUAL COMPARISON REQUIRED, DATA IS UNCONFIRMED Confirmed by DUANE MELISSA, MITCHELL ([id number]), business editor SARA SOLOMON ([id number]) on 08/25/2020 10:15:26 AM Referred By: Mitchell Henderson Confirmed By:MITCHELL HENDERSON MD
[2020-08-23 16:27] LABS: Hematocrit 46.6 % (37-47); Mean Corp Hgb Conc 32.2 g/dL (32-36); Mean Corpuscular Hgb 29.9 pg (27.0-32.0); Mean Platelet Vol. 9.2 fl (6.2-12.0); Platelet Count 263 K/mm3 (150-450); RBC Distribution Width SD 47.6 fl (35.1-43.9); Red Blood Count 5.01 M/mm3 (4.2-5.4); White Blood Count 11.5 K/mm3 (4.4-11.0)
[2020-08-23] MEDS: Acetaminophen 500 MG Tablet 1000 MG PO (16:39)
[2020-08-23] MEDS: Atorvastatin Calcium 20 MG Tablet PO (21:54)
[2020-08-23] MEDS: TICAGRELOR 90 MG TABLET PO (21:54)
[2020-08-24] MEDS: Acetaminophen 500 MG Tablet 1000 MG PO ×3 (01:10→13:04)
[2020-08-24 03:00] VITALS: PULSE 60
[2020-08-24 03:45] VITALS: BP 126/68; PULSE 79; RESP 18; TEMP 36.6; O2SAT 95
[2020-08-24 05:29] LABS: Hematocrit 46.3 % (37-47); Hemoglobin 14.5 g/dL (12.0-15.0); Mean Corp Hgb Conc 31.3 g/dL (32-36); Mean Corpuscular Hgb 29.6 pg (27.0-32.0); Mean Corpuscular Volume 94.5 fL (81-99); Mean Platelet Vol. 9.1 fl (6.2-12.0); Platelet Count 286 K/mm3 (150-450); RBC Distribution Width CV 13.8 % (11.6-14.6); RBC Distribution Width SD 48.3 fl (35.1-43.9); White Blood Count 11.2 K/mm3 (4.4-11.0)
--- NOTE | 2020-08-24 05:40 | CRPHASE1 ---
Patient Communication PHII Cardiac Rehab Discussed with Patient:: Yes Guide to Cardiac Rehab Given to Patient:: Yes Cardiac Rehab Facility Choice List Given to Patient:: Yes Choice Program [facility] PHII:: Communication Given to CR, Refer to [facility] Scan Coordinator:: Abi Contreras - Dr. Henderson is her eap clinician Refer Phase II Cardiac Rehab:: Yes Sessions:: 36 sessions - 2 days/wk, 18 weeks Cardiac Rehabilitation Info Cardiac Rehabilitation Program Information: Cardiac Rehabilitation is important for patients like you who are recovering from a heart problem. Cardiac rehabilitation programs are recognized as integral to the continued care of the patient with coronary heart disease. The cardiac rehabilitation program is designed to optimize a patient's physical, psychological, and social functioning. Health healthcare liaison work in cardiac rehabilitation programs and assist you with getting the treatments you need to get stronger and healthier - like exercise, healthy eating habits, and medications. Cardiac rehabilitation has been show to help people with heart problems live longer and have better life enjoyment than people who do not go to cardiac rehabilitation. Please contact the Cardiac Rehabilitation Program at [facility] at in two weeks if you have not heard from them.
--- NOTE | 2020-08-24 05:41 | CRPH1.INSTRU ---
General Education CAD and cardiac anatomy and function:: Patient communicates acknowledgment Explanation of diagnoses and procedures:: Patient communicates acknowledgment Sign/Symptoms of MD:: Patient communicates acknowledgment Antiplatelet therapy: Patient communicates acknowledgment Proper use of NTG-SL: Patient communicates acknowledgment Emergency procedures and activation of EMS: Patient communicates acknowledgment Compliance of all prescribed medications: Patient communicates acknowledgment Dyslipidemia Patient Dyslipidemia Risk Factors Are:: Total Cholesterol, Triglycerides, HDL, LDL Recommendations Include:: Lipid profile not available, Reviewed NCEP/ATP guidelines, Therapeutic Lifestyle Change dietary guidelines Dyslipidemia Response Code:: Patient communicates acknowledgment Overweight/Obesity Patient Overweight/Obesity Risk Factors Are:: Obesity - > or = 30 Recommendations Include:: Weight loss of 5-10%, Reduced calorie diet, Exercise 5-7 times/week Overweight/Obesity:: Patient communicates acknowledgment, Needs reinforcement Hypertension Recommendations Include:: Maintain BP <130/85, BP <130/80 if diabetic, DASH dietary guidelines, Decrease/maintain normal body weight Hypertension:: Patient communicates acknowledgment Heart Disease Recommendations Include:: Educated family members of their risk Heart Disease Response Code:: Patient communicates acknowledgment
[2020-08-24 05:47] LABS: ALB/GLOB Ratio 0.9 RATIO (0.9-2.4); AST(SGOT) 16 U/L (15-37); Alanine Aminotransfer ALT/SGPT 26 U/L (13-56); Albumin, Serum 3.3 g/dL (3.2-5.0); Alkaline Phosphatase 64 U/L (45-117); Anion Gap 6 (5-15); BUN 21 mg/dL (7-18); BUN/Creat Ratio 30.2 RATIO (10-20); Calcium,Total 9.3 mg/dL (8.5-10.1); Chloride 107 mmol/L (98-107); EST Glomerular Filtration Rate 89 mL/min (>60); Est Glom Filt Rate - Afr Amer 107 mL/min (>60); Estimated Creatinine Clearance 45.85 ml/min; Globulin 3.5 g/dL (2.2-4.2); Glucose 92 mg/dL (74-106); Potassium 3.7 mmol/L (3.5-5.1); Protein, Total 6.8 g/dL (6.4-8.2); Sodium Level 139 mmol/L (136-145)
[2020-08-24] MEDS: Levothyroxine 25 MCG TABLET PO (06:41)
[2020-08-24 07:32] VITALS: PULSE 67; O2SAT 94
--- NOTE | 2020-08-24 09:05 | PCM.PN.CARD ---
Subjectve: patient seen and evaluated Objective: Vital Signs Temp Pulse Resp BP Pulse Ox 97.9 F 67 18 126/68 H 94 08/24/20 03:45 08/24/20 07:32 08/24/20 03:45 08/24/20 03:45 08/24/20 07:32 Oxygen Delivery Method Room Air Weight: 219 lb 2.232 oz Body Mass Index (BMI) 37.4 Intake and Output for Last 24 Hours 08/22/20 08/23/20 08/24/20 23:59 23:59 23:59 Intake Total 1277.65 / 1277.65 50 / 50 Output Total 900 / 900 800 / 800 Balance 377.65 / 377.65 -750 / -750 General: Awake, Alert, Oriented x 3 HEENT: PERRL, EOMI, Sclera Non Icteric Neck: Supple, Good ROM, No Lymph Node Enlargement Lungs: Clear to auscultation Cardiovascular: Regular Rhythm, Normal S1, Normal S2, No Rubs, No Gallops Murmur Murmur: Grade 2/6, Early Systolic, LLSB Vascular: No Carotid Bruits, Normal Femoral Pulses, Normal Radial Pulses, Normal Dorsalis Pedal Pulse, Normal Posterior Tibial Pulses Abdomen: Bowel Sounds Present, Soft, Non Tender, No HSM, No Organomegaly Extremities: No Cyanosis, No Clubbing, No edema Neurological: No Focal Motor or Sensory Deficit 08/23/20 16:19: WBC 11.5 H, RBC 5.01, Hgb 15.0, Hct 46.6, MCV 93.0, MCH 29.9, MCHC 32.2, Plt Count 263, MPV 9.2 08/24/20 05:14: WBC 11.2 H, RBC 4.90, Hgb 14.5, Hct 46.3, MCV 94.5, MCH 29.6, MCHC 31.3 L, Plt Count 286, MPV 9.1 08/24/20 05:14: Sodium 139, Potassium 3.7, Chloride 107, Carbon Dioxide 26.0, Anion Gap 6, BUN 21 H, Creatinine 0.70, Est GFR (MDRD) Af Amer 107, Est GFR (MDRD) Non-Af 89, BUN/Creatinine Ratio 30.2 H, Glucose 92, Calcium 9.3, Total Bilirubin 0.40 Rhythm: EKG: ECHO: Stress Test: Cardiac Cath: PCI: CT Surgery: Holter monitor: EPS: PPM: CXR: Chest CT Scan: Medical Necessity - Tobacco Use Smoking Status: Former smoker Assessment/Plan 1. S/P angioplasty and stenting of the right coronary artery and PDA. Patient feeling much better today and at this time does not have any chest discomfort. Will arrange for discharge and outpatient follow-up and then consider referral for outpatient evaluation of her aortic valve. Thank you for allowing me to participate in the care of your patient. Please don't hesitate to call if any issues arise.
--- NOTE | 2020-08-24 09:14 | PCM.DC.CCA ---
Discharge Diet: No Restrictions - You may continue your normal diet. Lifting Restrictions: 10 pounds and also avoid any pushing or pulling for 3 days after your test. Additional Activity Instructions:: You must have someone drive you home. Do not drive until instructed by your doctor. You must have someone stay with you all night after your test. Rest in bed or on the couch until the next morning. Limit the number of times you go up and down stairs the day of your test. Apply pressure to the puncture site if you sneeze or cough. Call your doctor if your incision/area has: Increased Pain/ Swelling, Increased Redness, Foul Smelling Discharge, Swelling at the incision site Call your doctor if you observe: Fever of 101 or Higher Additional Dressing/Incision Instructions:: Keep the dressing (bandage) on until the next morning. You may then shower, but do not take a tub bath for 5 days after your test. It is normal to have some tenderness and discomfort at the puncture site. Sometimes bruising also occurs. However, if pain, numbness, or coldness occurs below the puncture site (in your leg, toes, arms or fingers) call your doctor at once. You may have a small, marble sized knot at the puncture site. This is normal. Do not rub it. It will go away in 4-6 weeks. Bleeding can occur from the area where the puncture was done. Blood may spurt or drip from the site. If blood spurts, apply pressure right away to stop bleeding and call 911. Although rare, bleeding into the tissue (hematoma) can also occur. If this happens, a large, firm area goose egg under the skin will appear. If any of these occur, lie down as flat as you can and have someone apply firm pressure to the cath site with a gauze pad or a clean washcloth for 10-15 minutes. Call 911 or go to the Emergency Department. Allergies/Adverse Reactions: Allergies bee venom protein (honey bee) Allergy (Verified 06/29/20 09:59) Angioedema metaxalone [From Skelaxin] Allergy (Verified 06/29/20 09:59) Swelling Medications to take at Discharge Levothyroxine [Synthroid] 25 mcg PO DAILY 03/02/17 Omeprazole 40 mg PO 1400 PRN 04/11/18 Lactobacillus Acidophilus/Fos [Acidophilus Probiotic Tablet] 2 ea PO DAILY 03/12/19 Polyethylene Glycol 3350 [Miralax] 17 gm PO PRN PRN 04/28/19 Acetaminophen [Tylenol] 1,000 mg PO Q6H tab 07/07/19 Iron Polysaccharide Complex [Ferrex 150] 150 mg PO DAILYCM #30 cap 07/07/19 Potassium Chloride Oral Tablet [K-Dur] 40 meq PO DAILY #60 tab 07/07/19 Ascorbic Acid [Vitamin C] 500 mg PO DAILY 01/06/20 Aspirin E.C. [Ecotrin] 81 mg PO DAILY@0800 01/06/20 Docusate Sodium [Colace] 100 mg PO BID 01/06/20 Green Tea [place] Extract [Green Tea Extract] 150 mg PO DAILY 01/06/20 Linaclotide [Linzess] 72 mcg PO PRN PRN 01/06/20 [place]-3 Fatty Acids [Fish Oil] 500 mg PO DAILY 01/06/20 Turmeric Root Extract [Turmeric] 500 mg PO DAILY 01/06/20 Ticagrelor [Brilinta] 90 mg PO BID #60 tablet 08/24/20 The following prescriptions were given: Ticagrelor [Brilinta] 90 mg PO BID #60 tablet Transmission Status: [id number] Orders to be completed after discharge: Cardiology Location: None Selected Phase II, Outpatient Cardiac Rehab Location: None Selected Primary Care Physician: Chema Sanchez Chi, MD [Primary Care Provider] - Test Results: Test results from this visit will be discussed in further detail at your follow-up appointment, if applicable. Please Follow Up With: Dr.Scott Vogel/O.S.U. When: Dr. Silva made referal When: Follow up with dr silva office. they will call Proposed Discharge Date: 08/24/20 Cardiac Rehabilitation Info Cardiac Rehabilitation Program Information: Cardiac Rehabilitation is important for patients like you who are recovering from a heart problem. Cardiac rehabilitation programs are recognized as integral to the continued care of the patient with coronary heart disease. The cardiac rehabilitation program is designed to optimize a patient's physical, psychological, and social functioning. Health home health care social worker work in cardiac rehabilitation programs and assist you with getting the treatments you need to get stronger and healthier - like exercise, healthy eating habits, and medications. Cardiac rehabilitation has been show to help people with heart problems live longer and have better life enjoyment than people who do not go to cardiac rehabilitation. Please contact the Cardiac Rehabilitation Program at [facility] at in two weeks if you have not heard from them.
[2020-08-24] MEDS: Potassium Chloride Oral Tablet 20 MEQ 40 MEQ PO (09:21)
[2020-08-24] MEDS: Aspirin E.C. 81 MG Tablet PO (09:21)
[2020-08-24] MEDS: Docusate Sodium 100 MG Capsule PO (09:22)
[2020-08-24] MEDS: TICAGRELOR 90 MG TABLET PO (09:22)
[2020-08-24] MEDS: Ascorbic Acid 500 MG Tablet PO (09:22)
[2020-08-24 09:24] VITALS: BP 133/87; PULSE 76; RESP 15; TEMP 36.7; O2SAT 95
--- NOTE | 2020-08-24 10:30 | CASEMGMT ---
Pt to be sent home on Brilinta and med [facility]. Per pharmacist, pt's co-pay is $161.66 at this time, pt aware and pt provided with Brilinta 30 day free trial card, voices understanding. Pt aware to speak with Dr. Henderson's office if cost continues to be high, voices understanding. Pt voices no further questions/concerns/needs. Earl OLIVER CM
--- NOTE | 2020-08-24 11:26 | CL.I_ITS ---
Patient Name: CHARISSA GUNTER Study Date: 08/23/2020 Performing: Jake Contreras MD Ht: 64 inches 163 cm : 1950 Wt: 218.5 lbs 99 kg Age: 70 Gender: female BSA: 2.03 PROCEDURE(S) PERFORMED [id number] W OR WO PTCA, SINGLE CORONARY ARTERY CLINICAL PROFILE AND CO-MORBIDITIES Indications: Valvular Disease Heart Failure: None CONCLUSIONS Successful TAMY to pRPDA and dRCA RECOMMENDATIONS DESCRIPTION OF PROCEDURE The patient arrived to the procedure lab. The risks and benefits of the procedure as well as a full d escription of our services here and current unavailability of surgical backup were fully explained to the patient and/or their significant other prior to the catheterization. The Timeout was completed, verifying the correct patient and procedure. The patient's procedural site was prepped and draped in the usual fashion. Local anesthetic was given subcutaneously to right radial region with Lidocaine 2% Using a modified Seldinger technique,arterial access was obtained via the right radial artery, a 6Fr sheath was inserted. Left Coronary Artery selective angiography was performed in multiple views usin g a 5 Fr. 4.0 [place] catheter. Right Coronary Artery selective angiography was then performed in multi ple views using a 5 Fr. 4.0 [place] catheter. Left Coronary Artery selective angiography was performed in multiple views using a 5 Fr. JL3.5 catheter.The images were reviewed and options discussed. A decision was then made to proceed with an Intervention, IVUS or other adjunct procedure. JR 4 Guide wire was advanced to the RCA. BMW Guide wire was advanced to the RCA. Emerge 2.50x12 B alloon catheter was inserted. PTCA balloon inflated at 6 atms for 8 secs. PTCA balloon inflated at 6 atms for 7 secs. PTCA balloon inflated at 14 atms for 9 secs. Angiogram performed post balloon dilata tion. Synergy 2.75x20 Drug Eluting stent was inserted. Angiogram performed post stent deployment. Syn ergy 3.50x12 Drug Eluting stent was inserted. Angiogram performed post stent deployment. The arteri al sheath was pulled and a TR Band was applied for hemostasis w/ 12ml INTERVENTION INFORMATION LESION SITE: RT PDA (Proximal) Lesion Complexity: High/C, chronic total occlusion: No, lesion at bifurcation: No, thrombus present: No, lesion length: 20 mm, culprit lesion: Yes, Previously treated lesion: No Pre Stenosis: 80 % Pre intervention MARILYN flow: 3 PROCEDURE: Drug Eluting Stent with pre dilatation. Post Stenosis: 0 % Post intervention MARILYN flow: 3 Lesion Devices: Davidson .014 BMW [place] Straight 190cm Medtronic 6 Fr JR4.0 100cm Guide Catheter Daryn Sci EMERGE MR 2.50x12 BALLOON Daryn Sci Synergy MR TAMY 2.75x20 LESION SITE: RCA (Distal) Lesion Complexity: High/C, chronic total occlusion: No, lesion at bifurcation: No, thrombus present: No, lesion length: 10 mm, culprit lesion: Yes, Previously treated lesion: No Pre Stenosis: 80 % Pre intervention MARLIYN flow: 3 PROCEDURE: Drug Eluting Stent with pre dilatation. After discussing with the patient and the primary claims adjuster crop we proceeded with PCI to dRCA and RPDA with plan to refer patient for TAVR Post Stenosis: 0 % Post intervention MARILYN flow: 3 Lesion Devices: Davidson .014 BMW [place] Straight 190cm Medtronic 6 Fr JR4.0 100cm Guide Catheter Daryn Sci EMERGE MR 2.50x12 BALLOON Daryn Sci Synergy MR TAMY 3.50x12 COMPLICATIONS No Complications PROCEDURE MEDICATIONS Versed 1 mg IV Fentanyl 50 mcg IV Versed 1 mg IV Versed 1 mg IV Fentanyl 25 mcg IV Baby Aspirin (81mg) 1 Tabs PO 08/23/2020 12:00:45 Brilinta 180 mg PO @ 08/23/2020 15:12:56 Heparin 6000 unit(s) IV 08/23/2020 14:39:52 SUMMARY OF HEMODYNAMIC DATA Time AIR REST ECG 10:28:00 AO 129/74 (99) SA 14:17:42 Signed By Jake Contreras MD On 08/24/2020 11:25:37 Jake Contreras MD
--- NOTE | 2020-08-24 11:26 | PHA.DC.MC ---
Pharmacy Service has performed discharge medication reconciliation and counseling for this patient. 1. ATORVASTATIN 20MG PO QHS 2. TICAGRELOR 90MG PO BID The patient's discharge medication list was reviewed for discrepancies and discrepancies were resolved. Home Medications Levothyroxine [Synthroid] 25 mcg PO DAILY 03/02/17 Omeprazole 40 mg PO 1400 PRN 04/11/18 Lactobacillus Acidophilus/Fos [Acidophilus Probiotic Tablet] 2 ea PO DAILY 03/12/19 Polyethylene Glycol 3350 [Miralax] 17 gm PO PRN PRN 04/28/19 Acetaminophen [Tylenol] 1,000 mg PO Q6H tab 07/07/19 Iron Polysaccharide Complex [Ferrex 150] 150 mg PO DAILYCM #30 cap 07/07/19 Potassium Chloride Oral Tablet [K-Dur] 40 meq PO DAILY #60 tab 07/07/19 Ascorbic Acid [Vitamin C] 500 mg PO DAILY 01/06/20 Aspirin E.C. [Ecotrin] 81 mg PO DAILY@0800 01/06/20 Docusate Sodium [Colace] 100 mg PO BID 01/06/20 Green Tea [place] Extract [Green Tea Extract] 150 mg PO DAILY 01/06/20 Linaclotide [Linzess] 72 mcg PO PRN PRN 01/06/20 [place]-3 Fatty Acids [Fish Oil] 500 mg PO DAILY 01/06/20 Turmeric Root Extract [Turmeric] 500 mg PO DAILY 01/06/20 Atorvastatin Calcium [Lipitor] 20 mg PO QHS #30 tablet 08/24/20 Ticagrelor [Brilinta] 90 mg PO BID #60 tablet 08/24/20 The patient was counseled on the following discharge medications and changes in medications for homegoing were reviewed. The Reason for Use, instructions for use, and potential side effects were reviewed for all new medications. The patient's questions regarding all of their medications were answered. The patient was able to verbally demonstrate an understanding of their discharge medications.
== END 2020-08-24 09:16 | disposition home or self-care (01) ==
LOC: CLSP 09:53 → PCU 08-24 09:34
PROVIDERS: Specialist; PCP Family Medicine Geriatric Medicine; Referring Provider Internal Medicine Cardiovascular Disease; Visit Provider Internal Medicine Cardiovascular Disease
DX: I35.0 Nonrheumatic aortic (valve) stenosis (principal); I25.10 Atherosclerotic heart disease of native coronary artery without angina pectoris; I10 Essential (primary) hypertension; K21.9 Gastro-esophageal reflux disease without esophagitis; K59.09 Other constipation; E03.9 Hypothyroidism, unspecified; E66.9 Obesity, unspecified; Z68.37 Body mass index [BMI] 37.0-37.9, adult; Z79.82 Long term (current) use of aspirin; Z79.899 Other long term (current) drug therapy; Z87.891 Personal history of nicotine dependence
CPT/HCPCS: 36415; 71046; 80048; 80053; 85025; 85027; 92928; 93005; 93454; 99152; 99153; J7030; J7040; Q9967; C1725; C1769; C1874; C1887; C1894; C9600; J1327

== ENCOUNTER → 2020-08-30 13:44 | Outpatient (CLI) | payer MEDICARE, OTHER, SELFPAY ==
[2020-08-20 08:21] VITALS: BMI 37.4
== END ==
PROVIDERS: PCP Family Medicine Geriatric Medicine; Referring Provider Family Medicine Geriatric Medicine; Visit Provider Family Medicine Geriatric Medicine
DX: R60.0 Localized edema (principal); R09.89 Other specified symptoms and signs involving the circulatory and respiratory systems
CPT/HCPCS: 93931

== ENCOUNTER → 2020-11-03 11:42 | Outpatient (CLI) | payer MEDICARE, OTHER, SELFPAY ==
[2020-11-03 10:40] VITALS: BMI 37.9
[2020-11-03 12:15] LABS: Absolute Lymphocyte Count 1.47 X10^3/uL (0.83-4.51); Absolute Neutrophil Count 6.3 X10^3/uL (2.0-7.7); Basophil# 0.04 X10^3/uL; Basophil% 0.4 % (0-1); Eosinophil# 0.09 X10^3/uL; Hematocrit 42.2 % (37-47); Hemoglobin 13.1 g/dL (12.0-15.0); Lymphocyte # 1.47 X10^3/ul (0.83-4.51); Lymphocyte % 16.3 % (19-41); Mean Corpuscular Volume 93.4 fL (81-99); Mean Platelet Vol. 9.4 fl (6.2-12.0); Monocyte# 1.07 X10^3/uL; Monocyte% 11.9 % (0-10); NRBC Flagged by Analyzer 0 % (0-5); Neutrophil # 6.29 X10^3/uL (2.7-7.7); Neutrophil % 69.8 % (47-70); Platelet Count 368 K/mm3 (150-450); RBC Distribution Width CV 13.8 % (11.6-14.6); Red Blood Count 4.52 M/mm3 (4.2-5.4)
[2020-11-03 12:57] LABS: Vitamin D,25 Hydroxy 25.1 ng/mL
[2020-11-03 13:04] LABS: ALB/GLOB Ratio 0.9 RATIO (0.9-2.4); AST(SGOT) 13 U/L (15-37); Alanine Aminotransfer ALT/SGPT 21 U/L (13-56); Albumin, Serum 3.7 g/dL (3.2-5.0); Alkaline Phosphatase 64 U/L (45-117); Anion Gap 5 (5-15); BUN 38 mg/dL (7-18); BUN/Creat Ratio 52.2 RATIO (10-20); Calcium,Total 9.5 mg/dL (8.5-10.1); Chloride 110 mmol/L (98-107); Creatinine, Serum 0.73 mg/dL (0.55-1.02); EST Glomerular Filtration Rate 84 mL/min (>60); Est Glom Filt Rate - Afr Amer 102 mL/min (>60); Globulin 3.9 g/dL (2.2-4.2); Glucose 91 mg/dL (74-106); Potassium 4.8 mmol/L (3.5-5.1); Protein, Total 7.6 g/dL (6.4-8.2); Sodium Level 141 mmol/L (136-145); Thyroid Stim Hormone (TSH) 1.19 uIU/mL (0.358-3.74)
== END ==
PROVIDERS: PCP Family Medicine Geriatric Medicine; Visit Provider Family Medicine Geriatric Medicine
DX: I10 Essential (primary) hypertension (principal); E55.9 Vitamin D deficiency, unspecified; F32.9 Major depressive disorder, single episode, unspecified; D72.829 Elevated white blood cell count, unspecified
CPT/HCPCS: 36415; 80053; 82306; 84443; 85025

== ENCOUNTER → 2020-11-19 13:41 | Outpatient (CLI) | payer MEDICARE, OTHER, SELFPAY ==
[2020-11-03 10:40] VITALS: BMI 37.9
== END ==
PROVIDERS: PCP Family Medicine Geriatric Medicine
DX: I73.9 Peripheral vascular disease, unspecified (principal); Z01.818 Encounter for other preprocedural examination
CPT/HCPCS: 87635; C9803; U0005; U0003

== ENCOUNTER → 2020-12-02 11:17 | Outpatient (CLI) | payer MEDICARE, OTHER, SELFPAY ==
[2020-11-03 10:40] VITALS: BMI 37.9
== END ==
PROVIDERS: PCP Family Medicine Geriatric Medicine; Visit Provider Family Medicine Geriatric Medicine
DX: N39.0 Urinary tract infection, site not specified (principal)
CPT/HCPCS: 87077; 87086; 87088; 87186

== ENCOUNTER → 2020-12-22 | Outpatient (CLI) | payer MEDICARE, OTHER, SELFPAY ==
[2020-12-17 11:24] VITALS: BMI 37.9
== END | disposition home or self-care (01) ==
LOC: LABSPEC 14:37
PROVIDERS: PCP Family Medicine Geriatric Medicine; Visit Provider Family Medicine Geriatric Medicine
DX: N39.0 Urinary tract infection, site not specified (principal)
CPT/HCPCS: 87077; 87086; 87088; 87186

== ENCOUNTER → 2021-01-26 15:13 | Outpatient (CLI) | payer MEDICARE, OTHER, SELFPAY ==
[2021-01-26 17:19] LABS: Anion Gap 7 (5-15); BUN 39 mg/dL (7-18); BUN/Creat Ratio 67.9 RATIO (10-20); Calcium,Total 9.5 mg/dL (8.5-10.1); Chloride 109 mmol/L (98-107); Creatinine, Serum 0.57 mg/dL (0.55-1.02); EST Glomerular Filtration Rate 111 mL/min (>60); Est Glom Filt Rate - Afr Amer 134 mL/min (>60); Glucose 94 mg/dL (74-106); Potassium 4.7 mmol/L (3.5-5.1); Sodium Level 140 mmol/L (136-145)
[2021-01-26 17:31] LABS: Absolute Lymphocyte Count 1.74 X10^3/uL (0.83-4.51); Absolute Neutrophil Count 9.8 X10^3/uL (2.0-7.7); Basophil# 0.04 X10^3/uL; Basophil% 0.3 % (0-1); Eosinophil# 0.03 X10^3/uL; Eosinophils% 0.2 % (0-5); Hematocrit 30.5 % (37-47); Hemoglobin 9.1 g/dL (12.0-15.0); Lymphocyte # 1.74 X10^3/ul (0.83-4.51); Lymphocyte % 13.6 % (19-41); Mean Corp Hgb Conc 29.8 g/dL (32-36); Mean Corpuscular Hgb 28.1 pg (27.0-32.0); Mean Corpuscular Volume 94.1 fL (81-99); Mean Platelet Vol. 9.5 fl (6.2-12.0); Monocyte# 1.12 X10^3/uL; Monocyte% 8.7 % (0-10); NRBC Flagged by Analyzer 0.2 % (0-5); Neutrophil # 9.78 X10^3/uL (2.7-7.7); Neutrophil % 76.3 % (47-70); Platelet Count 530 K/mm3 (150-450); RBC Distribution Width CV 14.6 % (11.6-14.6); RBC Distribution Width SD 50.1 fl (35.1-43.9); Red Blood Count 3.24 M/mm3 (4.2-5.4); White Blood Count 12.8 K/mm3 (4.4-11.0)
== END ==
PROVIDERS: PCP Family Medicine Geriatric Medicine; Visit Provider Family Medicine Geriatric Medicine
DX: N39.0 Urinary tract infection, site not specified (principal); R53.1 Weakness
CPT/HCPCS: 36415; 80048; 85025; 87086; 87088; 87186

== ENCOUNTER → 2021-01-27 11:12 | Outpatient (CLI) | payer MEDICARE, OTHER, SELFPAY ==
[2021-01-27 12:39] LABS: Absolute Lymphocyte Count 2.03 X10^3/uL (0.83-4.51); Absolute Neutrophil Count 9.3 X10^3/uL (2.0-7.7); Basophil# 0.07 X10^3/uL; Basophil% 0.5 % (0-1); Eosinophil# 0.12 X10^3/uL; Eosinophils% 0.9 % (0-5); Hemoglobin 8.2 g/dL (12.0-15.0); Lymphocyte # 2.03 X10^3/ul (0.83-4.51); Lymphocyte % 15.9 % (19-41); Mean Corp Hgb Conc 29.3 g/dL (32-36); Mean Corpuscular Volume 95.6 fL (81-99); Mean Platelet Vol. 9.5 fl (6.2-12.0); Monocyte# 1.08 X10^3/uL; Monocyte% 8.5 % (0-10); NRBC Flagged by Analyzer 0.2 % (0-5); Neutrophil # 9.31 X10^3/uL (2.7-7.7); Neutrophil % 73.3 % (47-70); Platelet Count 471 K/mm3 (150-450); RBC Distribution Width CV 15.2 % (11.6-14.6); RBC Distribution Width SD 52.8 fl (35.1-43.9); Red Blood Count 2.93 M/mm3 (4.2-5.4); White Blood Count 12.7 K/mm3 (4.4-11.0)
== END ==
PROVIDERS: PCP Family Medicine Geriatric Medicine; Visit Provider Family Medicine Geriatric Medicine
DX: D50.9 Iron deficiency anemia, unspecified (principal)
CPT/HCPCS: 36415; 85025

== ENCOUNTER → 2021-01-31 07:23 | Outpatient (CLI) | payer MEDICARE, OTHER, SELFPAY ==
[2021-01-31] VITALS (8 sets, daily range): BP systolic 125–157; BP diastolic 50–78; PULSE 76–109; RESP 16; TEMP 36.1–37.1; O2SAT 93–97; BMI 37.4
[2021-01-31] MEDS: 0.9% NaCl Peripheral Flush Adult/Peds IV (09:57)
[2021-01-31] MEDS: Furosemide 20 MG/2 ML VIAL IV (12:21)
== END ==
PROVIDERS: PCP Family Medicine Geriatric Medicine; Referring Provider Family Medicine Geriatric Medicine; Visit Provider Family Medicine Geriatric Medicine
DX: D64.9 Anemia, unspecified (principal)
CPT/HCPCS: 36415; 36430; 86850; 86900; 86901; 86920; 86922; J7040; P9016; A4216; J1940

== ENCOUNTER → 2021-02-01 14:44 | Outpatient (CLI) | payer MEDICARE, OTHER, SELFPAY ==
[2021-02-01 15:56] LABS: Absolute Lymphocyte Count 1.81 X10^3/uL (0.83-4.51); Absolute Neutrophil Count 8.2 X10^3/uL (2.0-7.7); Basophil# 0.07 X10^3/uL; Basophil% 0.6 % (0-1); Eosinophil# 0.11 X10^3/uL; Eosinophils% 0.9 % (0-5); Hematocrit 37.5 % (37-47); Hemoglobin 11.4 g/dL (12.0-15.0); Lymphocyte # 1.81 X10^3/ul (0.83-4.51); Lymphocyte % 15.6 % (19-41); Mean Corp Hgb Conc 30.4 g/dL (32-36); Mean Corpuscular Hgb 28.4 pg (27.0-32.0); Mean Corpuscular Volume 93.3 fL (81-99); Mean Platelet Vol. 9.2 fl (6.2-12.0); Monocyte# 1.31 X10^3/uL; Monocyte% 11.3 % (0-10); NRBC Flagged by Analyzer 0.2 % (0-5); Neutrophil # 8.23 X10^3/uL (2.7-7.7); Neutrophil % 70.7 % (47-70); Platelet Count 498 K/mm3 (150-450); RBC Distribution Width CV 15.6 % (11.6-14.6); RBC Distribution Width SD 52.6 fl (35.1-43.9); Red Blood Count 4.02 M/mm3 (4.2-5.4); White Blood Count 11.6 K/mm3 (4.4-11.0)
[2021-02-01 16:26] LABS: Vitamin D,25 Hydroxy 28.4 ng/mL
[2021-02-01 16:31] LABS: ALB/GLOB Ratio 0.9 RATIO (0.9-2.4); AST(SGOT) 20 U/L (15-37); Alanine Aminotransfer ALT/SGPT 23 U/L (13-56); Albumin, Serum 3.7 g/dL (3.2-5.0); Alkaline Phosphatase 74 U/L (45-117); Anion Gap 5 (5-15); BUN 16 mg/dL (7-18); BUN/Creat Ratio 25.9 RATIO (10-20); Calcium,Total 9.6 mg/dL (8.5-10.1); Chloride 106 mmol/L (98-107); Creatinine, Serum 0.62 mg/dL (0.55-1.02); EST Glomerular Filtration Rate 102 mL/min (>60); Est Glom Filt Rate - Afr Amer 123 mL/min (>60); Globulin 4.2 g/dL (2.2-4.2); Glucose 84 mg/dL (74-106); Potassium 4.3 mmol/L (3.5-5.1); Protein, Total 7.9 g/dL (6.4-8.2); Sodium Level 138 mmol/L (136-145); Thyroid Stim Hormone (TSH) 0.94 uIU/mL (0.358-3.74)
== END ==
PROVIDERS: PCP Family Medicine Geriatric Medicine; Referring Provider Family Medicine Geriatric Medicine; Visit Provider Family Medicine Geriatric Medicine
DX: I10 Essential (primary) hypertension (principal); E55.9 Vitamin D deficiency, unspecified
CPT/HCPCS: 36415; 80053; 82306; 84443; 85025

== ENCOUNTER → 2021-05-10 09:42 | Outpatient (CLI) | payer MEDICARE, OTHER, SELFPAY ==
[2021-05-10 16:46] LABS: Absolute Lymphocyte Count 1.51 X10^3/uL (0.83-4.51); Absolute Neutrophil Count 7.9 X10^3/uL (2.0-7.7); Basophil# 0.05 X10^3/uL; Basophil% 0.5 % (0-1); Eosinophil# 0.14 X10^3/uL; Eosinophils% 1.3 % (0-5); Hematocrit 42.9 % (37-47); Hemoglobin 13.2 g/dL (12.0-15.0); Lymphocyte # 1.51 X10^3/ul (0.83-4.51); Lymphocyte % 13.9 % (19-41); Mean Corp Hgb Conc 30.8 g/dL (32-36); Mean Corpuscular Hgb 27.9 pg (27.0-32.0); Mean Corpuscular Volume 90.7 fL (81-99); Mean Platelet Vol. 9.6 fl (6.2-12.0); Monocyte# 1.25 X10^3/uL; Monocyte% 11.5 % (0-10); NRBC Flagged by Analyzer 0 % (0-5); Neutrophil # 7.88 X10^3/uL (2.7-7.7); Neutrophil % 72.4 % (47-70); Platelet Count 371 K/mm3 (150-450); RBC Distribution Width CV 17.1 % (11.6-14.6); RBC Distribution Width SD 57.5 fl (35.1-43.9); Red Blood Count 4.73 M/mm3 (4.2-5.4); White Blood Count 10.9 K/mm3 (4.4-11.0)
[2021-05-10 17:00] LABS: Vitamin D,25 Hydroxy 24.6 ng/mL
[2021-05-10 17:14] LABS: AST(SGOT) 20 U/L (15-37); Alanine Aminotransfer ALT/SGPT 29 U/L (13-56); Albumin, Serum 3.8 g/dL (3.2-5.0); Alkaline Phosphatase 54 U/L (45-117); Anion Gap 8 (5-15); BUN 30 mg/dL (7-18); BUN/Creat Ratio 34.3 RATIO (10-20); Calcium,Total 9.1 mg/dL (8.5-10.1); Chloride 108 mmol/L (98-107); Creatinine, Serum 0.87 mg/dL (0.55-1.02); EST Glomerular Filtration Rate 68 mL/min (>60); Est Glom Filt Rate - Afr Amer 82 mL/min (>60); Globulin 3.7 g/dL (2.2-4.2); Glucose 89 mg/dL (74-106); Protein, Total 7.5 g/dL (6.4-8.2); Sodium Level 140 mmol/L (136-145); Thyroid Stim Hormone (TSH) 1.16 uIU/mL (0.358-3.74)
== END ==
LOC: LAB.FUTURE 09:46 → POLAB3 13:21
PROVIDERS: PCP Family Medicine Geriatric Medicine; Visit Provider Family Medicine Geriatric Medicine
DX: I10 Essential (primary) hypertension (principal); E55.9 Vitamin D deficiency, unspecified
CPT/HCPCS: 36415; 80053; 82306; 84443; 85025

== ENCOUNTER 2021-08-09 13:39 | Outpatient (CLI) | payer MEDICARE, OTHER, SELFPAY ==
[2021-08-09 16:44] LABS: Absolute Lymphocyte Count 1.11 X10^3/uL (0.83-4.51); Absolute Neutrophil Count 6.5 X10^3/uL (2.0-7.7); Basophil# 0.02 X10^3/uL; Basophil% 0.2 % (0-1); Eosinophil# 0.16 X10^3/uL; Eosinophils% 1.8 % (0-5); Hematocrit 38.5 % (37-47); Hemoglobin 11.5 g/dL (12.0-15.0); Lymphocyte # 1.11 X10^3/ul (0.83-4.51); Lymphocyte % 12.5 % (19-41); Mean Corp Hgb Conc 29.9 g/dL (32-36); Mean Corpuscular Hgb 26.6 pg (27.0-32.0); Mean Corpuscular Volume 88.9 fL (81-99); Mean Platelet Vol. 9.7 fl (6.2-12.0); Monocyte# 0.94 X10^3/uL; Monocyte% 10.6 % (0-10); NRBC Flagged by Analyzer 0 % (0-5); Neutrophil # 6.54 X10^3/uL (2.7-7.7); Platelet Count 420 K/mm3 (150-450); RBC Distribution Width CV 13.5 % (11.6-14.6); RBC Distribution Width SD 44.4 fl (35.1-43.9); Red Blood Count 4.33 M/mm3 (4.2-5.4); White Blood Count 8.9 K/mm3 (4.4-11.0)
[2021-08-09 17:13] LABS: Vitamin D,25 Hydroxy 37.6 ng/mL
[2021-08-09 17:31] LABS: Albumin, Serum 3.1 g/dL (3.2-5.0); BUN 11 mg/dL (7-18); BUN/Creat Ratio 16.1 RATIO (10-20); Creatinine, Serum 0.68 mg/dL (0.55-1.02); EST Glomerular Filtration Rate 90 mL/min (>60); Est Glom Filt Rate - Afr Amer 109 mL/min (>60); Glucose 98 mg/dL (74-106); Protein, Total 7.6 g/dL (6.4-8.2)
[2021-08-09 17:32] LABS: ALB/GLOB Ratio 0.7 RATIO (0.9-2.4); AST(SGOT) 32 U/L (15-37); Alanine Aminotransfer ALT/SGPT 26 U/L (13-56); Alkaline Phosphatase 70 U/L (45-117); Anion Gap 8 (5-15); Calcium,Total 9.2 mg/dL (8.5-10.1); Chloride 109 mmol/L (98-107); Globulin 4.5 g/dL (2.2-4.2); Potassium 4.6 mmol/L (3.5-5.1); Sodium Level 141 mmol/L (136-145); Thyroid Stim Hormone (TSH) 2.22 uIU/mL (0.358-3.74)
== END 2021-08-09 23:59 | disposition home or self-care (01) ==
LOC: POLAB3 13:42
PROVIDERS: PCP Family Medicine Geriatric Medicine; Visit Provider Family Medicine Geriatric Medicine
DX: I10 Essential (primary) hypertension (principal); N39.0 Urinary tract infection, site not specified; E55.9 Vitamin D deficiency, unspecified
CPT/HCPCS: 36415; 80053; 82306; 84443; 85025; 87086

== ENCOUNTER 2021-08-09 14:23 | Outpatient (CLI) | payer MEDICARE, OTHER, SELFPAY | END 2021-08-09 23:59 | disposition home or self-care (01) | LOC: PSN 14:25 | PROVIDERS: PCP Family Medicine Geriatric Medicine; Referring Provider Family Medicine Geriatric Medicine; Visit Provider Family Medicine Geriatric Medicine | DX: U07.1 COVID-19 (principal); I10 Essential (primary) hypertension; N39.0 Urinary tract infection, site not specified; E55.9 Vitamin D deficiency, unspecified | CPT/HCPCS: 36415; 80053; 82306; 84443; 85025; 87086; 87088; 87186; 87635; 87804; 87807; C9803; U0003; U0005 ==

== ENCOUNTER 2021-08-10 15:31 | Outpatient (CLI) | payer MEDICARE, OTHER, SELFPAY ==
[2021-08-10] MEDS: 0.9% Saline Lock 10 ML Syringe IV (15:42)
[2021-08-10 15:51] VITALS: BP 141/65; PULSE 92; RESP 16; TEMP 36.9; O2SAT 93; BMI 36.6
[2021-08-10 16:24] VITALS: BP 112/64; PULSE 76; RESP 16; TEMP 37.1; O2SAT 95
[2021-08-10 17:28] VITALS: BP 117/74; PULSE 75; RESP 16; TEMP 36.9; O2SAT 94
== END 2021-08-10 23:59 | disposition home or self-care (01) ==
LOC: MS3OUT 15:32 → MS3 15:42
PROVIDERS: PCP Family Medicine Geriatric Medicine; Referring Provider Nurse Practitioner Adult Health; Visit Provider Nurse Practitioner Adult Health
DX: U07.1 COVID-19 (principal)
CPT/HCPCS: J7050; M0247; A4216; Q0247

== ENCOUNTER 2021-09-13 14:46 | Outpatient (CLI) | payer MEDICARE, OTHER, SELFPAY ==
--- NOTE | 2021-09-13 14:50 | CT_ITS ---
STUDY: CT ABDOMEN AND PELVIS WITH AND WITHOUT CONTRAST REASON FOR EXAM: Female, 71 years old. HEMATURIA. History of chronic cystitis. RADIATION DOSAGE (If Supplied By Facility): CTDIvol = ( 25.56 ) mGy, DLP = ( 4160.4 ) mGycm TECHNIQUE: Transaxial images were obtained from the dome of the diaphragm to the symphysis pubis without oral contrast. IV 100mL Isovue-300 was administered. Sagittal and coronal images were reconstructed. Individualized dose optimization techniques were used for this CT. COMPARISON: Comparison is made with prior study dated 05/16/2018. FINDINGS: Mild degree of groundglass appearance in both lower lobes slightly more prominent at the right lung base. The patient is status post aortic valve replacement. Coronary artery calcification. There is decreased attenuation of the liver consistent with steatosis. Normal gallbladder and extrahepatic biliary system. Normal spleen. Normal pancreas. Normal bilateral adrenal glands. Normal right kidney. Normal left kidney. There is a small hiatal hernia. Normal small intestine. Normal colon. The appendix is visualized and appears normal. There is diffuse atherosclerotic calcification of the abdominal aorta and its major visceral branches, without a demonstrated aneurysm. Normal inferior vena cava. There is borderline retroperitoneal lymphadenopathy with enlarged nodes no greater than 10mm in the short axis diameter. Normal urinary bladder. There is absence of the uterus consistent with a prior hysterectomy. Normal abdominal wall. Marked degree of osteoarthritis and joint space narrowing involving both hip joints. There is a 5 cm x 1.4 cm fluid collection in the soft tissues overlying the left sacrum. On prior examination, there was evidence of an ulcerated lesion at that site. CT/CT Abd/Pelvis W/WO Contrast IMPRESSION: Mild degree of groundglass appearance in both lungs. This may represent scarring. Electronically Signed: Fidel Rojas MD at 15:35 EDT ,
== END 2021-09-13 23:59 | disposition home or self-care (01) ==
LOC: CT 14:47
PROVIDERS: PCP Family Medicine Geriatric Medicine; Visit Provider Urology
DX: N30.21 Other chronic cystitis with hematuria (principal); N20.0 Calculus of kidney
CPT/HCPCS: 74178; Q9967

== ENCOUNTER 2021-09-14 13:49 | Outpatient (CLI) | payer MEDICARE, OTHER, SELFPAY ==
--- NOTE | 2021-09-14 13:49 | ECHOD_ITS ---
Reason For Study: MURMUR Procedure This was a 2D Doppler, Color Flow transthoracic echocardiogram. Exam performed in department. Left Ventricle Normal LV size. Left ventricular systolic function is normal. The estimated ejection fraction is 55 %. Stage 1 diastolic dysfunction. No regional wall motion abnormalities noted. Right Ventricle Normal RV size. Normal systolic function. Atria Normal left atrium. Normal right atrium. Mitral Valve Mild focal mitral valve thickening. Tricuspid Valve Normal tricuspid valve. Aortic Valve Trisinus/trileaflet aortic valve. Peak aortic valve gradient 30 mmHg. Mean aortic valve gradient 16 mmHg. Mild aortic stenosis. Mild (1+) aortic valve insufficiency. Pulmonic Valve Normal pulmonic valve. Great Vessels Normal aortic root. The pulmonary artery is normal size. Normal inferior vena cava. Pericardium/Pleural No pericardial effusion. MMode/2D Measurements & Calculations LVIDd: 3.7 cm IVSd: 1.7 cm LVOT diam: 2.0 cm LVIDs: 1.7 cm LVPWd: 1.0 cm LVOT area: 3.0 cm2 FS: 53.0 % Ao root diam: 3.6 cm LAV(MOD-bp): 49.5 ml LVAd ap4: 23.7 cm2 LAV(MOD-bp) Indexed: 24.6 ml/m2 LVLd ap4: 7.6 cm LAV(MOD-sp2): 53.3 ml EDV(MOD-sp4): 62.0 ml LAV(MOD-sp4): 40.6 ml EDV(sp4-el): 62.7 ml LVAs ap4: 12.5 cm2 LVLs ap4: 5.7 cm ESV(MOD-sp4): 23.9 ml ESV(sp4-el): 23.5 ml EF(MOD-sp4): 61.4 % EF(sp4-el): 62.5 % LVAd ap2: 27.3 cm2 SV(MOD-sp4): 38.0 ml SV(MOD-sp2): 53.8 ml LVLd ap2: 7.8 cm EDV(MOD-sp2): 83.5 ml EDV(sp2-el): 81.6 ml LVAs ap2: 15.0 cm2 LVLs ap2: 6.2 cm ESV(MOD-sp2): 29.7 ml ESV(sp2-el): 30.7 ml EF(MOD-sp2): 64.4 % SV(sp4-el): 39.2 ml LA dimension(2D): 4.1 cm LA A4 area: 15.6 cm2 RA A4 area: 10.7 cm2 Doppler Measurements & Calculations MV E max gurpreet: 107.8 cm/sec Lat Peak E' Gurpreet: 7.4 cm/sec Med Peak E' Gurpreet: 10.5 cm/sec MV A max gurpreet: 125.6 cm/sec E/E' lat: 14.5 E/E' med: 10.3 MV E/A: 0.86 Ao V2 max: 272.9 cm/sec AI max gurpreet: 323.5 cm/sec LV V1 max: 122.3 cm/sec Ao max P.0 mmHg AI max P.9 mmHg LV V1 max P.0 mmHg Ao V2 mean: 188.7 cm/sec AI dec slope: 118.4 cm/sec2 LV V1 mean P.3 mmHg Ao mean P.2 mmHg AI P1/2t: 800.1 msec LV V1 mean: 87.2 cm/sec Ao V2 VTI: 62.5 cm LV V1 VTI: 25.1 cm MONICA(I,D): 1.2 cm2 MONICA(V,D): 1.4 cm2 SV(LVOT): 75.8 ml PA V2 max: 98.0 cm/sec ECHO/Echo Complete Interpretation Summary Normal LV size. Left ventricular systolic function is normal. The estimated ejection fraction is 55 %. Mild focal mitral valve thickening. Stage 1 diastolic dysfunction. Mild aortic stenosis. Mild (1+) aortic valve insufficiency. Ordering Physician: Ivory Howard Referring Physician: Chema Sanchez Chi Performed By: Lashon Jones RCS
== END 2021-09-14 23:59 | disposition home or self-care (01) ==
LOC: CVS 13:49
PROVIDERS: PCP Family Medicine Geriatric Medicine; Visit Provider Physician Assistant Medical
DX: I35.0 Nonrheumatic aortic (valve) stenosis (principal)
CPT/HCPCS: 93306

== ENCOUNTER → 2021-09-26 | Outpatient (CLI) | payer MEDICARE, OTHER, SELFPAY | END | disposition home or self-care (01) | LOC: LABSPEC 16:49 | PROVIDERS: PCP Family Medicine Geriatric Medicine; Visit Provider Urology | DX: N30.21 Other chronic cystitis with hematuria (principal) | CPT/HCPCS: 87077; 87086; 87088; 87186 ==

== ENCOUNTER → 2021-11-08 | Outpatient (CLI) | payer MEDICARE, OTHER, SELFPAY ==
[2021-11-08 17:32] LABS: Absolute Lymphocyte Count 1.32 X10^3/uL (0.83-4.51); Absolute Neutrophil Count 7.2 X10^3/uL (2.0-7.7); Basophil# 0.06 X10^3/uL; Basophil% 0.6 % (0-1); Hematocrit 44.5 % (37-47); Hemoglobin 13.3 g/dL (12.0-15.0); Lymphocyte # 1.32 X10^3/ul (0.83-4.51); Lymphocyte % 13.4 % (19-41); Mean Corp Hgb Conc 29.9 g/dL (32-36); Mean Corpuscular Volume 90.4 fL (81-99); Mean Platelet Vol. 9.4 fl (6.2-12.0); Monocyte% 11.2 % (0-10); NRBC Flagged by Analyzer 0 % (0-5); Neutrophil # 7.24 X10^3/uL (2.7-7.7); Neutrophil % 73.4 % (47-70); Platelet Count 385 K/mm3 (150-450); RBC Distribution Width CV 17.9 % (11.6-14.6); RBC Distribution Width SD 59.2 fl (35.1-43.9); Red Blood Count 4.92 M/mm3 (4.2-5.4); White Blood Count 9.9 K/mm3 (4.4-11.0)
[2021-11-08 17:53] LABS: ALB/GLOB Ratio 1.1 RATIO (0.9-2.4); AST(SGOT) 24 U/L (15-37); Alanine Aminotransfer ALT/SGPT 28 U/L (13-56); Alkaline Phosphatase 55 U/L (45-117); Anion Gap 8 (5-15); BUN 22 mg/dL (7-18); BUN/Creat Ratio 31.8 RATIO (10-20); Calcium,Total 9.5 mg/dL (8.5-10.1); Chloride 109 mmol/L (98-107); Creatinine, Serum 0.69 mg/dL (0.55-1.02); EST Glomerular Filtration Rate 89 mL/min (>60); Est Glom Filt Rate - Afr Amer 108 mL/min (>60); Globulin 3.7 g/dL (2.2-4.2); Glucose 86 mg/dL (74-106); Potassium 4.6 mmol/L (3.5-5.1); Protein, Total 7.7 g/dL (6.4-8.2); Sodium Level 140 mmol/L (136-145); Thyroid Stim Hormone (TSH) 1.44 uIU/mL (0.358-3.74)
== END | disposition home or self-care (01) ==
LOC: POLAB3 12:49
PROVIDERS: PCP Family Medicine Geriatric Medicine; Visit Provider Family Medicine Geriatric Medicine
DX: E55.9 Vitamin D deficiency, unspecified (principal); I10 Essential (primary) hypertension
CPT/HCPCS: 36415; 80053; 82306; 84443; 85025

== ENCOUNTER → 2021-11-16 | Outpatient (CLI) | payer MEDICARE, OTHER, SELFPAY ==
--- NOTE | 2021-11-16 14:10 | RAD_ITS ---
STUDY: X-RAY - LUMBAR SPINE REASON FOR EXAM: Female, 71 years old. PAIN TECHNIQUE: XR Spine Lumbar 2 or 3 Views COMPARISON: None FINDINGS: Normal lumbar lordosis. There is no substantial scoliosis. There is a normal alignment of the vertebrae. There is multilevel endplate spondylosis of the lumbar vertebrae. There is multi-level degenerative disc disease with multi-level disc space narrowing. There are atherosclerotic vascular calcifications. The soft tissue structures are unremarkable. Severe degenerative findings of the hips. RAD/Lumbar Spine 2 or 3 Views IMPRESSION: Degenerative changes of the spine, as detailed above. Severe degenerative findings of the hips. Electronically Signed: Dawit Wilks MD at 18:43 EDT ,
--- NOTE | 2021-11-16 14:10 | RAD_ITS ---
STUDY: X-RAY - PELVIS AND RIGHT HIP REASON FOR EXAM: Female, 71 years old. Pain. TECHNIQUE: 3 views of the pelvis and hip. COMPARISON: 04/30/2018. FINDINGS: There is a non-specific bowel gas pattern. Vascular calcification. Phleboliths. Osteopenia. Normal bilateral iliac wings, sacroiliac joints and visualized sacrum. Normal bilateral superior and inferior pubic rami. Mild arthrosis of the symphysis pubis. Normal bilateral ischial tuberosities. Severe arthrosis of both hips, relatively unchanged. RAD/HIP, UNI W/ Pelvis 2-3 Views IMPRESSION: Osteopenia with mild arthrosis of the symphysis pubis and stable severe arthrosis of both hips. No acute abnormality, chondrocalcinosis or erosive changes. Electronically Signed: Ryley Crockett MD at 9:56 EDT ,
== END | disposition home or self-care (01) ==
LOC: RAD 14:05
PROVIDERS: PCP Family Medicine Geriatric Medicine; Referring Provider Family Medicine Geriatric Medicine; Visit Provider Family Medicine Geriatric Medicine
DX: M16.0 Bilateral primary osteoarthritis of hip (principal); M47.816 Spondylosis without myelopathy or radiculopathy, lumbar region; M51.36 Other intervertebral disc degeneration, lumbar region; M48.061 Spinal stenosis, lumbar region without neurogenic claudication
CPT/HCPCS: 72100; 73502

== ENCOUNTER 2021-12-07 11:33 | Inpatient (IN) | payer MEDICARE, OTHER, SELFPAY ==
--- NOTE | 2021-11-22 05:18 | PCM.HP.BLA ---
History and Physical History and Physical [facility] Patient Name: Jeanne Chavez : 1950 From:? EMERSON ARMSTRONG PA-C? DATE OF SURGERY:? 12/07/2021 SCHEDULED PROCEDURE:? left total hip arthroplasty HISTORY OF PRESENT ILLNESS: Preoperative history and physical exam was performed on November 21, 2021.? This is a 71-year-old female who is been having ongoing pain in bilateral hips for over 10 years.? She was initially supposed to undergo total hip replacement 1 year ago but had to be canceled due to heart condition.? Patient was also treated by local urologist for chronic urinary tract infections.? Patient has continued to have pain in bilateral hips.? She is currently scheduled to undergo left total hip arthroplasty on December 07, 2021.? Her pain can still reach as high as an 8/10 with activities.? Pain is increased with going up and down stairs, walking, driving, standing.? She has been using a walker for ambulatory assistance.? Patient denies any current chest pain or shortness of breath.? No recent fevers or chills.? Patient does complain of bilateral groin pain.? Her pain is intermittent, aching, sharp, stabbing.? She denies previous surgery on the left hip.? After failing conservative measures and discussing treatment options was Dr. Ger Johnson, the patient does wish to proceed with a left total hip arthroplasty.? Patient has obtained surgical clearance from line construction engineer Dr. Cortes and Dr. Henderson.? Patient has history of a trans-catheter aortic valve replacement and stent placement.? We are also recommending perioperative management of patient's Plavix from the line construction engineer.? We are also obtaining surgical clearance from the primary care physician Dr. Sanchez.? We will be undergoing preoperative lab work as well as urinalysis.? Patient has had workup from cardiac standpoint with the line construction engineer.? Patient does have medical history pertinent for thyroid disease, chronic urinary tract infections, hypertension, coronary artery disease.? Patient denies history of DVT or Pulmonary Embolism.?? REVIEW OF SYSTEMS: Review Of Systems: Constitutional: Denies change in appetite, fever and weight change. Cardiovasular: Denies chest pain, heart murmur and irregular heartbeat. Respiratory: Denies cough, pneumonia, shortness of breath, tuberculosis and wheezing. Gastrointestinal: Denies constipation, diarrhea, heartburn, nausea, rectal itching, bloody stools and vomiting. Genitourinary: Denies incontinence. Musculoskeletal: Denies leg swelling, pain, trouble walking and weakness. Skin: Denies Raynaud's, history of shingles and tattoo. Neurological: Denies ambulatory dysfunction, dizziness, numbness/tingling and tremor. Psychiatric: Denies anxiety, insomnia and stress. Hematologic/Lymphatic: Denies anemia, bleeding/bruising tendency and past transfusion. Reviewed, no changes. PAST MEDICAL HISTORY: Advance Care Plan: Other Directive, POA Effective Date: 03/15/2020 Other Directive, LIVING WILL Effective Date: 03/15/2020 Other Directive, DNR Effective Date: 03/15/2020 Past Medical History: Medical Problems: Arthritis, Depression, Kidney Stones, Thyroid Disease, UTI Covid- 19 - VACCINATED + TWO BOOSTERS High Blood Pressure Accidents: None Surgical Hx: Colon Resection - (2017) [facility] DR. ARREOLA Hysterectomy - (2003) @[place] DR. MAN Tonsillectomy - [place] DR. COLLINS Heart Valve Replacement - TAVR VALVE 2020 [facility]? Anesthesia Complications: None Assistive Devices: Cane, Walker Reviewed and updated. SOCIAL HISTORY: Social History: Marital: .Occupation: Retired.Work Status: Retired.Hand Dominance: Right-handed. Personal Habits:? Cigarette Use: Former.Smokeless Tobacco: Never Used Smokeless Tobacco.E-Cigarette Use: Never used.Alcohol: Occasionally.Drug Use: Denies Use.Enjoy Exercising: Never Exercises. Reviewed and updated. VITALS: Ht: 64 Wt: 220lb Wt k.792 BMI: 37.8 BP: 132/80 Pulse: 91 T: 97.8 T: 36.6C Pain Level: 2 O2SatR: 98 ALLERGIES: Skelaxin Honey Bee Venom? MEDICATIONS: Omeprazole 40 mg 1 by mouth every day, Levothyroxine Sodium 25 mcg 1 by mouth every day, Potassium Acetate? 20 angelina 2 A day, Linzess 145 mcg as needed, Aspirin 81 Low Dose 81 mg 81mg 1 A day, Fish Oil? 300 1 A day, Green Tea Extract? 1 A day, QC Tumeric Complex 500 mg 1 A day, Acidophilus? 8 billion 2 A day, Daily Fiber? 2x2 A day, Stool Softener? 1x3 A day, Methenamine Hippurate 1 gm 1 by mouth twice a day, Diclofenac 35 mg 1po, Sucralfate 1 gm, Polyacrylate Crosspolymer-6 crsplm-6, Vitamin D3 Complete , Rosuvastatin Calcium 5 mg 1 by mouth every day, Clopidogrel Bisulfate 75 mg 1 by mouth every day, Gabapentin 600 mg 1 by mouth three times a day, Baclofen 10 mg take 3 tablets by mouth daily for 7 days, Prednisone 10 mg, Naproxen 500 mg, Pantoprazole Sodium 40 mg take 1 tablet by mouth daily for 7 days PRE-OP EXAM:? General appearance:NORMAL? ? ? Other: Eyes: Conjunctivae and lids: NORMAL? Pupils: ERR Ears, Nose, Mouth, and Throat: NORMAL? Other: Inspection of lips, teeth and gums: NORMAL? ?Other: Neck: Examination of neck: no masses noted. Respiratory: Assessment of respiratory effort: NORMAL? ?Other: ?Auscultation of lungs: clear to auscultation no wheezes, rhonchi or rales. Cardiovascular:? Auscultation of heart: regular rate and rhythm, no murmurs, gallops or rubs. PHYSICAL EXAMINATION: On exam patient does walk with an antalgic gait.? She does require a walker for ambulatory support.? Patient does have tenderness to palpation over the left lateral hip.? Left hip appears cool to touch without erythema.? Flexion 60, internal rotation 10, external rotation 15.? Right hip flexion 70 and internal rotation in neutral.? Sensation intact to light touch to bilateral lower extremities. IMAGING STUDIES: Previous x-rays of the right and left hip reveal severe osteoarthritis with joint space narrowing, subchondral sclerosis, osteophyte formation with bony erosions of the femoral head and acetabulum.? There is large osteophytes. IMPRESSION: 1.? Severe left hip osteoarthritis 2.? Severe right hip osteoarthritis 3.? Hypertension 4.? Coronary artery disease 5.? History of aortic valve replacement 6.? Chronic history of urinary tract infections 7.? Thyroid disease 8.? History of kidney stones 9.? Depression PLAN: Dr. Ger Johnson did discuss and review with the patient all treatment options including surgical versus nonsurgical options.? Patient does wish to proceed with the above-stated procedure.? Potential risks, benefits, and complications of the procedure were discussed in detail including but not limited to , infection, nerve and blood vessel damage, persistent pain, numbness, tingling, paresthesias, blood clot, pulmonary embolism, and requirement for possible further surgery.? The patient expressed full understanding and has no further questions for the doctor.? Patient does agree to proceed with the above-stated procedure and has signed the surgery consent form. We discussed the current risks associated with COVID 19.? This does include the risk of exposure while in the hospital.? Patient was reassured local hospitals have low infection rates and are taking all necessary precautions to avoid exposure to patients.? In addition, we discussed strategies that can be used to help limit exposure including those that limit the patient's time in the hospital.? Also using strategies to limit the patient's need for continued inpatient services after being discharged from the hospital.? Patient was notified that we will need to comply with any screening or testing the hospital wishes to perform or that surgery may be delayed for any positive results. This dictation was created using voice recognition software. Phonetic and/or grammatical errors may exist. ___? I have re-examined the patient.? There are no clinical changes since date of exam. ___? See progress notes for changes. ___? Dictated on admission Date: ? ? ?Time: Signature:
--- NOTE | 2021-11-28 14:04 | EKG12_ITS ---
Test Reason : PREOP Blood Pressure : / mmHG Vent. Rate : 081 BPM Atrial Rate : 081 BPM P-R Int : 150 ms QRS Dur : 068 ms QT Int : 362 ms P-R-T Axes : 043 -15 056 degrees QTc Int : 420 ms Normal sinus rhythm Normal ECG Confirmed by CECILE MELISSA, YANELI ([id number]), advertising editor SARA SOLOMON ([id number]) on 11/29/2021 8:31:04 AM Referred By: Ger Johnson Confirmed By:YANELI HUBER MD
[2021-11-28 14:38] LABS: Mucous, Urine 0 SEEN /hpf (<or=2+)
[2021-11-28 15:40] LABS: Magnesium 2.3 mg/dL (1.6-2.6)
[2021-11-28 17:32] LABS: Color, Urine Yellow (Yellow); Glucose, Dipstick Normal (Normal); Ketone-Dipstick Negative (Negative); Leukocyte Esterase-Dipstick 500 /ul (Negative); Nitrite-Dipstick Negative (Negative); Occult Blood-Urine 250 /ul (Negative); Protein-Dipstick 100 mg/dl (Negative); Specific Gravity, Urine 1.015 (1.002-1.030); Urine Bilirubin Dipstick Negative (Negative); Urine Clarity Turbid (Clear); Urine Urobilinogen Normal (Normal)
[2021-11-28 18:07] LABS: Amorphous Sediment 1+ URATE; Bacteria 1+ /hpf (None Seen); Red Blood Cells-Urine 50-100 SEEN /hpf (0-5); Squamous Epithelial Cells - UA 0-5 SEEN /hpf (5-10); White Blood Cells >100 SEEN /hpf (0-5)
[2021-12-07] VITALS (12 sets, daily range): BP systolic 102–178; BP diastolic 52–88; PULSE 73–95; RESP 16–18; TEMP 36.3–36.9; O2SAT 92–98; BMI 37.8
--- NOTE | 2021-12-07 | HIP_PTH ---
PATIENT: CHARISSA GUNTER LOC: MS3 U#:[id number] AGE/SX: 71/F ROOM: [facility] RE12/09/[address]: Dr. Ger Johnson MD : 1950 BED: 1 DIS: 12/10/2021 SPEC #: [id number] RECD: 12/07/21 14:47 STATUS: EUSEBIO RERoel #: [id number] KATY: 12/07/21 00:[address]: Ger Johnson DEPT: SURGICAL PATHOLOGY RECD BY: Marko Calderon ENTERED: 12/08/21 09:33 SP TYPE: TOTAL HIP OTHR DR: MD Dr. Ronn Montemayor Dr., MD Dr. Scott Mollison, MD Dr. Tai Chi Kwok, MD Tissues: Hip, NOS Procedures: Decalcification bone/plaque Surgery Specimen Level IV HEADER OPERATION: ERAS, direct anterior total hip arthroplasty PRE-OP DIAGNOSIS: Severe left hip osteoarthritis TISSUE SUBMITTED: Left femoral head MICROSCOPIC DIAGNOSIS Bone and tissue of left hip, total hip resection: Consistent with severe degenerative joint disease. AM:andrew 12/12/2021 MICROSCOPIC DESCRIPTION Slides are reviewed. GROSS DESCRIPTION Received is one container labeled with the patient's name and designated left femoral head. The specimen consists of a distorted femoral head measuring 5 x 5 x 5 cm. The articular surface displays prominent osteophyte formation, eburnation and bone erosion. Also present in the specimen container are multiple irregular bone fragments measuring in aggregate 7.5 x 6 x 1.5 cm. Workers Compensation Claims Examiner sections are submitted in one cassette after decalcification. / AM:andrew 12/08/2021 TC:5 [facility]: [id number]
[2021-12-07] MEDS: Celecoxib 200 MG Capsule 400 MG PO (09:10)
[2021-12-07] MEDS: Gabapentin 600 MG Tablet PO ×2 (09:11→21:39)
[2021-12-07] MEDS: Lactated Ringers 1,000 ML 999 ML IV (09:11)
[2021-12-07] MEDS: Acetaminophen 500 MG Tablet 1000 MG PO ×2 (09:11→21:40)
--- NOTE | 2021-12-07 10:00 | RAD_ITS ---
EXAM: XR LEFT HIP WITH PELVIS WHEN PERFORMED, 1 VIEW CLINICAL INDICATION: PAIN TECHNIQUE: Frontal view of the left hip with pelvis when performed. This report was created using [employer] report generation technology. COMPARISON: None. FINDINGS: BONES/JOINTS: Final image demonstrates normal alignment of the left hip prosthesis. OTHER FINDINGS: Five fluoroscopically guided slight images were obtained. 6.9 seconds of fluoroscopy time was utilized. Electronically Signed: Ronan Clarke MD at 2:36 EDT , RAD/Hip 1 view with Pelvis IMPRESSION: undefined
--- NOTE | 2021-12-07 11:36 | PCM.OPRPT ---
Report of Operation Date of Procedure: 12/07/21 Pre-Operative Diagnosis: left hip primary osteoarthritis Post-Operative Diagnosis: Left hip primary osteoarthritis Surgery/Procedure Performed:: Left minimally invasive direct anterior total hip replacement Description of Surgical Findings:: Stable hip with equal leg length Surgeon: Ger Johnson casing wringer operator: [place] Jacobsen Type of Anesthesia: Spinal Anesthesiologist: Raúl Ross Special Medications: 2 g Ancef, 1 g TXA at incision, 1 g TXA closure, 10 mg Decadron, joint cocktail (5 mg Duramorph, 30 mL of 0.5% Ropivicaine, 1000 units of epinephrine, 30 mg of Toradol) Specimen's removed: Bony cuts Estimated Blood Loss (mL): 500 Fluids Replaced: 800 mL crystalloid Description of Procedure: Components used: 1. Insignia Campbell femoral stem size 5 standard 2. Campbell trident 2 acetabular shell size 52 mm 3. Campbell X3 polyethylene E 4. Campbell Biolox delta 36mm, -5mm femoral head Brief history operative indications: 71 yo f who failed conservative measures for their hip osteoarthritis. X-rays were consistent with osteoarthritis including joint space narrowing, osteophyte formation and subchondral cysts. Total hip replacement was discussed with the patient with risks and benefits including but not limited to blood loss, DVTs, PEs, neurovascular damage, dislocation, general risks of anesthesia including loss of life. Patient demonstrated an understanding medical clearance is obtained the patient was consented for surgery. Procedure: On the date of procedure the patient's left hip was marked in the preoperative area. Patient was then taken back to the operating room where anesthesia assumed control of the C-spine and airway and administered anesthetic. Patient was transferred to the operating table and placed in the supine position. The hips were placed at the break of the bed and a sacral bump was placed. The left lower extremity was then prepped out in a sterile fashion using chlorhexidine while the surgeon scrubbed. The PA was vital in the positioning of the patient. Upon reentering the room the left lower extremity was draped in the standard orthopedic fashion and the incision was marked. A timeout was called and everyone agreed upon the side, the site, the procedure be performed, antibody given, and patient's identity. At this time incision was made through skin, subcutaneous tissue, and fat down to fascia. The fascia was then incised and the TFL was retracted laterally. A retractor was placed on the lateral border of the femoral neck. Attention was directed to the inferior portion of the approach and all crossing vessels were identified and appropriately coagulated. A retractor was then placed on the medial portion of the femoral neck. The anterior capsule was then cleared of all soft tissue and then H shaped capsulotomy was made. The retractors were then placed inside the capsule. The femoral neck was identified and a cleanup cut was made. At this time a power corkscrew was used to remove the femoral head. Attention was then turned toward the acetabulum where the soft tissues were appropriately retracted and the acetabulum was sequentially reamed to 52 mm. A 52 mm cup was then selected and impacted into place. Acetabular liner was impacted into place and locking mechanism was verified. The position of the acetabular cup was then verified under live fluoroscopy. Attention was then turned to the femur. Soft tissue releases on the medial and lateral femoral neck were appropriately done, the leg was externally rotated and lateralized. A Garcia retractor was placed medially and proximally to the greater trochanter this allowed appropriate visualization and exposure of the femoral canal. Rongeour was then used to remove excess lateral bone. A canal finder and entry broach were used to open the proximal canal. Once we verified we were down the femoral canal we subsequently broached up to a size 5 femur. The appropriate neck was placed in the previously selected head was trialed with a -5 mm neck. Traction was pulled and the hip was reduced with internal rotation. Once it was appropriately reduced and stability was checked. There was minimal shuck, equal leg lengths and appropriate stability with hyperextension and external rotation as well as with 90? flexion and internal rotation. Fluoroscopy was then also used to verify the position of the components and leg lengths using the contralateral side for comparison. The trial components were then dislocated the proximal femur was again exposed and the components were removed from the wound. The final components were verified and opened. The wound was copiously irrigated out with normal saline. The acetabulum was checked for any residual debris. The final components were placed and impacted. Traction and internal rotation were again used to reduce the hip. After adequate reduction the hip remained stable with appropriate leg lengths. The final components were once again checked with live fluoroscopy and were found to be satisfactory. The wound was then copiously irrigated with normal saline once more, and hemostasis was obtained. Closure was then done using #1 Vicryl runner to close the fascia. A 2-0 vicryl interuppted sutures were used to close the subcutaneous skin. A 3-0 Monocryl and Steri-Strips were used for final skin closure. A Silverlon dressing was placed. Patient was awakened by anesthesia and transferred to the [facility]. Patient was then transferred to the PACU for recovery. During the course of the procedure the physician butcher apprentice (PE) played a vital role. Their intimate knowledge of my steps in the procedure aided in safe and expedient completion of the procedure. The PE played a vital rolls in positioning particularly in obtaining the appropriate positioning of the sacral bump. The PE was also vital in the retraction of soft tissues during the exposure and especially the femoral work as this is a vital part of the procedure to prevent complications and fractures. The PE was also vital and protecting soft tissues during times of bony cuts and reaming. He also played a vital role in closure with my direct supervision. The PE was also important during reduction and dislocation of the joint and trials intraoperatively. Postoperative plan: Patient will get 24 hours postop antibiotics. Patient will get in-house physical therapy and will be weight-bear as tolerated. Patient will follow up in office in 2 weeks for a wound check and x-rays. Aspirin 81 mg twice daily. Due to patient's high risk nature including large pannus and history of chronic UTIs we will place patient on 2 weeks of doxycycline postoperatively. Complications No intraoperative complications Admit VTE Documentation VTE Present on Admission: No VTE Mechan Device Prophylaxis: SCD's and Thigh High CHRISTOPHE Hose VTE Pharm Prophylaxis ordered?: Yes
[2021-12-07] MEDS: Cefazolin 2 GM in 0.9% Normal Saline 100 ML IV (12:06)
[2021-12-07 12:16] LABS: Bedside Glucose 104 mg/dL (74-106)
[2021-12-07] MEDS: dexAMETHasone 10 MG/ML Vial IV (12:28)
--- NOTE | 2021-12-07 14:30 | RAD_ITS ---
STUDY: X-RAY - PELVIS AND LEFT HIP REASON FOR EXAM: Female, 71 years old. Post Op -- AP both hips on single pranav/lateral of op hip PACU TECHNIQUE: 2 views of the pelvis and hip. COMPARISON: None. FINDINGS: Patient is status post left total hip replacement. There is good alignment. Postoperative soft tissue changes. Marked degree of osteoarthritis with subchondral sclerosis of the right hip joint. Avascular necrosis should be ruled out. RAD/Hip Min 2 Views (Portable) IMPRESSION: Status post left total hip replacement. There is good alignment. Postoperative soft tissue changes. Electronically Signed: Fidel Rojas MD at 15:16 EDT ,
[2021-12-07] MEDS: Lactated Ringers 1,000 ML 125 ML IV (15:15)
[2021-12-07] MEDS: Ensure Surgery 237 ML LIQUID PO (16:40)
[2021-12-07] MEDS: Sucralfate 1 GM Tablet PO ×2 (16:40→21:39)
[2021-12-07] MEDS: Aspirin 81 MG TAB.CHEW PO (16:40)
[2021-12-07] MEDS: oxyCODONE 5 MG Tablet PO (16:42)
--- NOTE | 2021-12-07 17:26 | PN.HOSP_ITS ---
Documented by User: Rocío Dowd NP, FABRICATOR [employer] RUBBER-C 12/07/21 17:33 Subjective Subjective Patient seen and examined. Underwent left anterior total hip replacement. Hospitalist services consulted for medical management. Patient denies shortness of breath. Pain currently controlled. Denies other symptoms or complaints. Objective Data Objective Data Vital Signs: Vital Signs Temp Pulse Resp BP Pulse Ox O2 Del Method O2 Flow Rate 97.7 F L 79 18 120/57 L 98 Nasal Cannula 2 12/07/21 16:10 12/07/21 16:10 12/07/21 16:10 12/07/21 16:10 12/07/21 17:05 12/07/21 17:05 12/07/21 17:05 Oxygen Flow Rate (L/min) 2 Oxygen Delivery Method Nasal Cannula Weight: 220 lb 7.396 oz Body Mass Index (BMI) 37.8 Intake & Output: Intake and Output for Last 24 Hours 12/05/21 12/06/21 12/07/21 23:59 23:59 23:59 Intake Total 2212 / 2212 Output Total 200 / 200 Balance 2011 Lab / Micro Data Labs: Laboratory Results - last 24 hr 12/07/21 08:52: POC Glucose 104 Micro: Microbiology 11/28/21 14:37 Swab (Method) Nasal Screen MRSA/MSSA - Final Radiography Diagnostic Testing: Radiology Impression Hip X-Ray 12/07/21 14:30 IMPRESSION: Status post left total hip replacement. There is good alignment. Postoperative soft tissue changes. Electronically Signed: Fidel Rojas MD at 15:16 EDT , Physical Exam Const alert, oriented x3 and no apparent distress Orientation / Consciousness: awake, oriented to person, oriented to place and oriented to time HEENT normocephalic and moist oral mucous membranes Eyes PERRL, EOMs intact bilaterally and conjunctivae normal Neck no lymphadenopathy Resp normal respiratory effort and clear to auscultation bilaterally Cardio regular rate and regular rhythm Peripheral Pulses: pulses 2+ throughout GI normal to inspection, nondistended, normoactive bowel sounds, non-tender and non-distended Extremity normal to inspection Skin no rashes or lesions noted Skin Narrative: Left hip postop dressing intact Lesions: no lesions Rashes: no rashes Trauma: no lacerations or abrasions Neuro CN's II-XII intact bilaterally, no focal motor deficits, no sensory deficits noted and deep tendon reflexes 2+ bilaterally Psych mental status grossly normal and affect normal Assessment & Plan Assessment/Plan (1) Essential (primary) hypertension: PLAN: Plan 1. Left hip primary osteoarthritis status post left minimally invasive direct anterior left total hip replacement-management for orthopedic medicine. PT/OT. As needed pain regimen. 2. History of recurrent UTI-denies current symptoms. Remove Grewal per protocol when ambulatory. 3. History of severe aortic stenosis status post TAVR 4. CAD with history of stent-continue aspirin, Plavix, statin. 5. Hypertension-stable, not on regimen. Monitor blood pressure. 6. Hyperlipidemia-continue statin. 7. Hypothyroidism-continue Synthroid. DVT prophylaxis-Per surgery This patient was seen by HARRY MeadeC under the supervision of Dr. Mccain. Time spent examining patient, reviewing data and subsequent management of care: 14 minutes Documented by User: Dr. Yamilet Mccain MD 12/07/21 17:44 Assessment & Plan Assessment/Plan (1) Essential (primary) hypertension: Charges/Coding Addendum Addendum: This patient was seen in conjunction with Rocío Dowd NP. I have independently interviewed and examined the patient and reviewed pertinent historical, laboratory, and other data. I have reviewed her note and concur with her documentation Consult for postop medical management: 71-year-old female with past medical history of CAD status post stent, aortic stenosis status post TAVR, hypertension, morbid obesity who comes in for elective right total hip arthroplasty. Patient was seen in the immediate postop period. She denied any acute complaints. She denied chest pain or dizziness. She was on 2 L of oxygen postoperatively. Physical Exam: Gen: Comfortable, not pale, not jaundiced, morbidly obese CVS:HS I +II, regular, no murmurs RESP: Diminished at lung bases GI: BS present and normal, soft, nontender, no palpable organs EXT:No edema ASSESSMENT: 1. POD#0 status post minimally invasive direct anterior left total hip replacement 2. Recurrent UTI 3. Severe aortic stenosis status post TAVR 4. CAD status post stent 5. Hypertension 6. Hyperlipidemia 7. Hypothyroidism Plan: Continue with pain control PT/OT to evaluate and treat Following orthopedic recommendations Continue Plavix, aspirin, Synthroid Time spent coordinating all aspects of patient's care, discussing with nursin minutes Visit Charges Office Visits / Consults: [id number] OV L5 New
[2021-12-07] MEDS: Cefazolin 1 GM/50 ML BAG IV (20:05)
[2021-12-07] MEDS: Doxycycline 100 MG CAPSULE PO (21:39)
[2021-12-07] MEDS: Senna/Docusate Sodium 1 Tablet 2 TABLET PO (21:40)
[2021-12-07] MEDS: Ascorbic Acid 500 MG Tablet 1000 MG PO (21:41)
[2021-12-07] MEDS: Methenamine Hippurate 1 GM Tablet 2 GM PO (21:41)
[2021-12-08 04:00] VITALS: BP 113/57; PULSE 78; RESP 16; TEMP 37; O2SAT 97
[2021-12-08] MEDS: Cefazolin 1 GM/50 ML BAG IV (04:21)
[2021-12-08] MEDS: Gabapentin 600 MG Tablet PO ×3 (06:25→20:39)
[2021-12-08] MEDS: Acetaminophen 500 MG Tablet 1000 MG PO ×3 (06:25→20:40)
[2021-12-08] MEDS: Levothyroxine 25 MCG TABLET PO (06:25)
[2021-12-08] MEDS: Sucralfate 1 GM Tablet PO ×4 (06:25→20:37)
[2021-12-08 07:31] LABS: Hematocrit 26.1 % (37-47); Mean Corp Hgb Conc 30.7 g/dL (32-36); Mean Corpuscular Hgb 27.2 pg (27.0-32.0); Mean Corpuscular Volume 88.8 fL (81-99); Mean Platelet Vol. 9.3 fl (6.2-12.0); Platelet Count 324 K/mm3 (150-450); RBC Distribution Width CV 15.9 % (11.6-14.6); RBC Distribution Width SD 51.4 fl (35.1-43.9); Red Blood Count 2.94 M/mm3 (4.2-5.4); White Blood Count 16.7 K/mm3 (4.4-11.0)
[2021-12-08 08:15] LABS: Anion Gap 5 (5-15); BUN 11 mg/dL (7-18); Calcium,Total 8.7 mg/dL (8.5-10.1); Chloride 107 mmol/L (98-107); Creatinine, Serum 0.52 mg/dL (0.55-1.02); EST Glomerular Filtration Rate 123 mL/min (>60); Est Glom Filt Rate - Afr Amer 148 mL/min (>60); Glucose 98 mg/dL (74-106); Potassium 3.9 mmol/L (3.5-5.1); Sodium Level 140 mmol/L (136-145)
[2021-12-08 09:36] VITALS: O2SAT 97
[2021-12-08 10:00] VITALS: BP 121/61; PULSE 97; RESP 16; TEMP 37.1; O2SAT 95
[2021-12-08] MEDS: Ascorbic Acid 500 MG Tablet 1000 MG PO (10:22)
[2021-12-08] MEDS: Methenamine Hippurate 1 GM Tablet 2 GM PO ×2 (10:22→20:38)
[2021-12-08] MEDS: Potassium Chloride Oral Tablet 20 MEQ 40 MEQ PO (10:22)
[2021-12-08] MEDS: Doxycycline 100 MG CAPSULE PO ×2 (10:22→20:38)
[2021-12-08] MEDS: Aspirin 81 MG TAB.CHEW PO ×2 (10:22→16:07)
[2021-12-08] MEDS: Senna/Docusate Sodium 1 Tablet 2 TABLET PO ×2 (10:22→20:39)
[2021-12-08] MEDS: Cholecalciferol (VIT D3) 25 MCG TABLET (1,000 UNITS) PO (10:22)
[2021-12-08] MEDS: Famotidine 20 MG Tablet PO (10:23)
[2021-12-08] MEDS: Clopidogrel Bisulfate 75 MG Tablet PO (10:23)
--- NOTE | 2021-12-08 10:31 | PCM.PN.HOSP ---
Subjective Subjective Follow-up on postop medical management/left total hip replacement: Patient was seen and examined. She denied any new complaint. Denies any fever or chills or chest pain or dizziness. She is off oxygen. Her pain is fairly controlled. Objective Data Objective Data Vital Signs: Vital Signs Temp Pulse Resp BP Pulse Ox O2 Del Method O2 Flow Rate 98.6 F 78 16 113/57 L 97 Room Air 2 12/08/21 04:00 12/08/21 04:00 12/08/21 04:00 12/08/21 04:00 12/08/21 09:36 12/08/21 04:00 12/07/21 17:48 Oxygen Flow Rate (L/min) 2 Oxygen Delivery Method Room Air Weight: 100 kg Body Mass Index (BMI) 37.8 Intake & Output: Intake and Output for Last 24 Hours 12/06/21 12/07/21 12/08/21 23:59 23:59 23:59 Intake Total 2986.17 / 2986.17 144.75 / 144.75 Output Total 1700 / 1700 1450 / 1450 Balance 1286.17 / 1286.17 -1305.25 / -1305.25 Lab / Micro Data Result Diagrams: 12/08/21 06:45 12/08/21 06:45 Labs: Laboratory Results - last 24 hr 12/07/21 08:52: POC Glucose 104 12/08/21 06:45: WBC 16.7 H, RBC 2.94 L, Hgb 8.0 L, Hct 26.1 L, MCV 88.8, MCH 27.2, MCHC 30.7 L, RDW Std Deviation 51.4 H, RDW Coeff of Yevgeniy 15.9 H, Plt Count 324, MPV 9.3 12/08/21 06:45: Sodium 140, Potassium 3.9, Chloride 107, Carbon Dioxide 28.0, Anion Gap 5, BUN 11, Creatinine 0.52 L, Estim Creat Clear Calc 45.20, Est GFR (MDRD) Af Amer 148, Est GFR (MDRD) Non-Af 123, BUN/Creatinine Ratio 21.0 H, Glucose 98, Calcium 8.7 Micro: Microbiology 11/28/21 14:37 Swab (Method) Nasal Screen MRSA/MSSA - Final Radiography Diagnostic Testing: Radiology Impression Hip/Pelvis X-Ray 12/07/21 10:00 IMPRESSION: undefined Hip X-Ray 12/07/21 14:30 IMPRESSION: Status post left total hip replacement. There is good alignment. Postoperative soft tissue changes. Electronically Signed: Fidel Rojas MD at 15:16 EDT , Physical Exam Narrative Physical exam: General: Alert, Oriented x3, Cooperative, morbidly obese, comfortable, sitting in the chair HEENT: Atraumatic Oral: Moist Mucosa Neck: Supple Lungs: Diminished to auscultation Cardiovascular: HS I+II, regular, 3/6 holosystolic murmur Abdomen: Bowel Sounds Present, Soft, Non Tender Extremities: No edema, in CHRISTOPHE hoses, incisional wound VAC in place in the left hip Skin: No rashes, No breakdown Neurological: Grossly intact Psych/Mental Status: Appropriate Assessment & Plan Assessment/Plan (1) S/P hip replacement: PLAN: Plan 1.? POD#1 status post minimally invasive direct anterior left total hip replacement Her pain level controlled, continue with scheduled Tylenol, as needed oxycodone Continue with doxycycline and incisional wound VAC per orthopedics PT and OT to evaluate and treat 2.? Anemia, likely postop/hemodilution now, drop in hemoglobin from 13.3-8.0 Patient said to have lost about 500 mils of blood intraoperatively We will check H&H stat, iron stores, reticulocyte count DC Toradol, increase PPI to twice daily We will start empirically on iron and vitamin C 3. History of recurrent UTI, no symptoms of UTI now Grewal catheter has been removed Continue on Hiprex 4.?Severe aortic stenosis status post TAVR/CAD status post stent/Hypertension/Hyperlipidemia Continue with Plavix, statin 5.?Hypothyroidism, continue with Synthroid 6. DVT prophylaxis per orthopedics?aspirin twice daily Disposition: DC to TCU in a.m. if patient remains stable Charges/Coding Visit Charges Inpatient E&M: 12245 Subs Hosp L2
--- NOTE | 2021-12-08 10:31 | CASEMGMT ---
Social Work SW met w/pt in room in regard to prior level of function and anticipated discharge PCP: Dr. Sanchez Specialists: Dr. Johnson, orthopedics, and Dr. Moran, urology Insurance: Medicare/AARP Pharmacy: [facility] in [place] Living arrangements/Prior level of function: Pt lives home alone in a one story home with two steps to enter. Pt drives, is independent with all ADL's. Pt uses rollator at baseline. LW/POA: On file, [facility] listed as Healthcare POA DME/HHC/SNF: Pt has rollator, comfort height commode, walk in shower w/seat. Pt has had HHC with [facility] and [facility]. Pt has been to TCU in the past. Pt requesting SNF at discharge. Pt given list of correction facilities in pt's preferred geographic area in pt's insurance network complete with quality and resource use data. Plan: Pt would like to go to TCU at discharge. Referral made, they can take pt, pt notified, agreeable. SW will continue to follow for discharge to TCU when pt is medically ready. YUE Mann
--- NOTE | 2021-12-08 10:50 | PCM.PN.ORT ---
Subjective Subjective The patient was sitting in bedside chair upon examination. Patient denies any chest pain, shortness of breath, dizziness, lightheadedness, nausea or vomiting, or calf pain. Pain is controlled on medications. No adverse overnight events. Patient states overall she is doing well. She was tired up walking with therapy but denied any dizziness or lightheadedness. No feeling of syncope. Plan is for patient to try to go to the transitional care unit upon discharge when ready. Patient did have a drop in hemoglobin today currently at 8.0 and preoperatively was at 13.0. She did have estimated blood loss of 500 mL from surgery. She also currently has incisional wound VAC with no drainage in the canister or tubing. This will be worn for 7 days postoperatively. Objective Data Objective Data Vital Signs: Vital Signs Temp Pulse Resp BP Pulse Ox O2 Del Method O2 Flow Rate 98.6 F 78 16 113/57 L 97 Room Air 2 12/08/21 04:00 12/08/21 04:00 12/08/21 04:00 12/08/21 04:00 12/08/21 09:36 12/08/21 04:00 12/07/21 17:48 Oxygen Flow Rate (L/min) 2 Oxygen Delivery Method Room Air Weight: 100 kg Body Mass Index (BMI) 37.8 Intake & Output: Intake and Output for Last 24 Hours 12/06/21 12/07/21 12/08/21 23:59 23:59 23:59 Intake Total 2986.17 / 2986.17 144.75 / 144.75 Output Total 1700 / 1700 1450 / 1450 Balance 1286.17 / 1286.17 -1305.25 / -1305.25 Lab / Micro Data Result Diagrams: 12/08/21 06:45 12/08/21 06:45 Labs: Laboratory Results - last 24 hr 12/07/21 08:52: POC Glucose 104 12/08/21 06:45: WBC 16.7 H, RBC 2.94 L, Hgb 8.0 L, Hct 26.1 L, MCV 88.8, MCH 27.2, MCHC 30.7 L, RDW Std Deviation 51.4 H, RDW Coeff of Yevgeniy 15.9 H, Plt Count 324, MPV 9.3 12/08/21 06:45: Sodium 140, Potassium 3.9, Chloride 107, Carbon Dioxide 28.0, Anion Gap 5, BUN 11, Creatinine 0.52 L, Estim Creat Clear Calc 45.20, Est GFR (MDRD) Af Amer 148, Est GFR (MDRD) Non-Af 123, BUN/Creatinine Ratio 21.0 H, Glucose 98, Calcium 8.7 Micro: Microbiology 11/28/21 14:37 Swab (Method) Nasal Screen MRSA/MSSA - Final Radiography Diagnostic Testing: Radiology Impression Hip/Pelvis X-Ray 12/07/21 10:00 IMPRESSION: undefined Hip X-Ray 12/07/21 14:30 IMPRESSION: Status post left total hip replacement. There is good alignment. Postoperative soft tissue changes. Electronically Signed: Fidel Rojas MD at 15:16 EDT , Physical Exam Narrative Vital signs stable and afebrile. Left thigh is soft and supple SCDs and CHRISTOPHE hose are in place bilaterally Patient is able to plantarflex and dorsiflex actively. Sensation is intact to light touch to saphenous, sural, superficial and deep peroneal, and tibial distribution. Dressing is clean dry and intact. Negative Homans bilaterally, negative signs and symptoms of DVT. Const alert, oriented x3 and no apparent distress Assessment & Plan Assessment/Plan (1) Status post total hip replacement, left: PLAN: 1. S/P left direct anterior total hip arthroplasty POD #1 2. Continue Pain Medications: Tylenol and oxycodone. Meloxicam was stopped today as well as the Toradol. 3. DVT Prophylaxis: Take 81 mg aspirin twice daily for 4 weeks postoperatively for DVT prophylaxis. Patient denies any previous history of DVT or pulmonary embolism 4. PT/OT: Weightbearing as tolerated with walker 5. H & H: 8.0/26.1, asymptomatic. Postoperative anemia secondary to acute blood loss and/or hemodilution from surgery without any intra operative complications. Case was discussed with hospitalist and we are going to repeat H&H. She is also ordering iron lab work. Discussed with the patient the possibility of transfusion particularly with her heart history. We will continue to monitor. 6. Reactive leukocytosis: Currently 16.7, afebrile. Clinically does not appear with any underlying infection. We will continue to monitor. 7. Continue postoperative medical management per medicine: Case was discussed with the hospitalist and are currently repeating H&H and iron lab work. 8. Continue with doxycycline postoperatively due to increased risk from BMI elevation. Discussed with the patient side effects of this medication which makes her more sensitive to sunlight. She is to take appropriate precautions. Also recommended probiotic while on this medication for 2 weeks postoperatively. 9. Encouraged Incentive Spirometry 10. Continue with incisional wound VAC for 7 days postoperatively. Currently no drainage in the canister or tubing 11. Disposition: Case management is currently involved with appropriate placement upon discharge. Plan is for possible transitional care unit. We are currently repeating some lab work as she has had a drop in hemoglobin. I do feel patient would benefit from additional night while we work her up appropriately. Plan will be for possible discharge tomorrow as long as medically stable. I also discussed with the patient with regards to her incisional wound VAC she will keep this on for 7 days postoperatively and remove it on her own. I do recommend placement of 4 x 4 dressing, ABD, or washcloth to protect the incision from any breakdown once the wound VAC has been removed. She did voice understanding agreement. I have reviewed the [place] Automated Rx Reporting System (OARRS) report for this patient for refill pattern and other prescriber involvement as part of the appropriate surveillance for the provision of acute and chronic controlled medications. The report was requested and reviewed on the date of this entry and was considered in the prescribing process. This dictation was created using voice recognition software. Phonetic and/or grammatical errors may exist.
[2021-12-08 11:17] LABS: Hematocrit 27.2 % (37-47); Hemoglobin 8.2 g/dL (12.0-15.0); Platelet Count 316 K/mm3 (150-450); RET-HE 21.5 pg (30-35); Reticulocyte Count 3.05 % (0.5-1.5)
[2021-12-08 11:39] LABS: Ferritin 18 ng/mL (8-252); Iron 14 ug/dL (50-170); Iron Binding Capacity,Total 345 ug/dL (250-450); PERCENT IRON SATURATION 4.1 % (15.0-55.0)
[2021-12-08 11:42] VITALS: O2SAT 95
[2021-12-08] MEDS: Ferrous Sulfate 325 MG Tablet PO ×2 (14:05→16:07)
[2021-12-08] MEDS: Ascorbic Acid 500 MG Tablet PO (16:07)
[2021-12-08 16:08] VITALS: BP 131/54; PULSE 94; RESP 14; TEMP 37.3; O2SAT 95
--- NOTE | 2021-12-08 16:30 | CASEMGMT ---
MELODY GOMEZ NOTE: Intro role of CM to patient and B[facility]ROWS form explained re: Observation status for treatment of left total hip arthroplasty.? Explained hospitalization will be paid per?her insurance policy for Outpatient billing?and condition will continue to be evaluated for Inpt necessity. Also let pt know that [facility] sends paper in the billing packet with their phone number if questions arise. Discussed Pharmacy section of BURROWS form and self administered medication guideline.? Pt verbalizes understanding and does not have further questions. ?Form signed, copy made and placed in chart, and original given to pt. Ra GÓMEZ RN, CM ?
[2021-12-08] MEDS: 0.9% Saline Lock 10 ML Syringe IV ×2 (18:06→20:40)
[2021-12-08 20:27] VITALS: BP 111/44; PULSE 96; RESP 18; TEMP 36.9; O2SAT 94
[2021-12-08] MEDS: Pantoprazole Sodium 40 MG Tablet PO (20:39)
[2021-12-09] VITALS (13 sets, daily range): BP systolic 98–154; BP diastolic 39–73; PULSE 93–119; RESP 16–18; TEMP 36.6–37.3; O2SAT 94–97
[2021-12-09] MEDS: Levothyroxine 25 MCG TABLET PO (04:25)
[2021-12-09] MEDS: Gabapentin 600 MG Tablet PO ×3 (04:25→21:07)
[2021-12-09] MEDS: Sucralfate 1 GM Tablet PO ×4 (04:25→21:07)
[2021-12-09] MEDS: Acetaminophen 500 MG Tablet 1000 MG PO ×3 (04:26→21:07)
[2021-12-09 05:42] LABS: Hematocrit 26.4 % (37-47); Mean Corp Hgb Conc 30.3 g/dL (32-36); Mean Corpuscular Hgb 26.8 pg (27.0-32.0); Mean Corpuscular Volume 88.6 fL (81-99); Mean Platelet Vol. 9.4 fl (6.2-12.0); Platelet Count 349 K/mm3 (150-450); RBC Distribution Width CV 16.3 % (11.6-14.6); RBC Distribution Width SD 52.5 fl (35.1-43.9); Red Blood Count 2.98 M/mm3 (4.2-5.4); White Blood Count 14.5 K/mm3 (4.4-11.0)
[2021-12-09 06:41] LABS: ALB/GLOB Ratio 0.8 RATIO (0.9-2.4); AST(SGOT) 24 U/L (15-37); Alanine Aminotransfer ALT/SGPT 21 U/L (13-56); Albumin, Serum 2.8 g/dL (3.2-5.0); Alkaline Phosphatase 53 U/L (45-117); Anion Gap 7 (5-15); BUN 15 mg/dL (7-18); BUN/Creat Ratio 25.1 RATIO (10-20); Calcium,Total 8.7 mg/dL (8.5-10.1); Chloride 107 mmol/L (98-107); EST Glomerular Filtration Rate 105 mL/min (>60); Est Glom Filt Rate - Afr Amer 127 mL/min (>60); Globulin 3.4 g/dL (2.2-4.2); Glucose 102 mg/dL (74-106); Potassium 3.5 mmol/L (3.5-5.1); Protein, Total 6.2 g/dL (6.4-8.2); Sodium Level 140 mmol/L (136-145)
--- NOTE | 2021-12-09 06:52 | PN.ORTHO_ITS ---
Subjective Subjective The patient was sitting in bed sleeping upon examination. Patient denies any chest pain, shortness of breath, dizziness, lightheadedness, nausea or vomiting, or calf pain. However patient does states she feels rundown and very tired. She has been working with therapy. Patient does have pain with the left hip but pain is controlled on medications. No adverse overnight events. She also has incisional wound VAC in which there has been no drainage. Plan is for patient to go to the transitional care unit and we are currently waiting on approval. Objective Data Objective Data Vital Signs: Vital Signs Temp Pulse Resp BP Pulse Ox O2 Del Method O2 Flow Rate 98.2 F 117 H 18 154/73 H 95 Room Air 2 12/09/21 04:13 12/09/21 04:13 12/09/21 04:13 12/09/21 04:13 12/09/21 04:13 12/09/21 04:13 12/07/21 17:48 Oxygen Flow Rate (L/min) 2 Oxygen Delivery Method Room Air Weight: 100 kg Body Mass Index (BMI) 37.8 Intake & Output: Intake and Output for Last 24 Hours 12/07/21 12/08/21 12/09/21 23:59 23:59 23:59 Intake Total 2986.17 / 2986.17 414.75 / 414.75 Output Total 1700 / 1700 1450 / 1450 Balance 1286.17 / 1286.17 -1035.25 / -1035.25 Lab / Micro Data Result Diagrams: 12/09/21 04:23 12/09/21 04:23 Labs: Laboratory Results - last 24 hr 12/08/21 06:45: WBC 16.7 H, RBC 2.94 L, Hgb 8.0 L, Hct 26.1 L, MCV 88.8, MCH 27.2, MCHC 30.7 L, RDW Std Deviation 51.4 H, RDW Coeff of Yevgeniy 15.9 H, Plt Count 324, MPV 9.3 12/08/21 06:45: Sodium 140, Potassium 3.9, Chloride 107, Carbon Dioxide 28.0, A nion Gap 5, BUN 11, Creatinine 0.52 L, Estim Creat Clear Calc 45.20, Est GFR (MDRD) Af Amer 148, Est GFR (MDRD) Non-Af 123, BUN/Creatinine Ratio 21.0 H, G lucose 98, Calcium 8.7 12/08/21 06:45: Iron 14 L, TIBC 345, Iron Saturation 4.1 L, Ferritin 18 12/08/21 10:55: Hgb 8.2 L, Hct 27.2 L, Retic Count 3.05 H, Immature Retic Fraction 29.50 H, Retic Hgb Equivalent 21.5 L 12/08/21 10:55: Crossmatch See Detail 12/09/21 04:23: WBC 14.5 H, RBC 2.98 L, Hgb 8.0 L, Hct 26.4 L, MCV 88.6, MCH 26.8 L, MCHC 30.3 L, RDW Std Deviation 52.5 H, RDW Coeff of Yevgeniy 16.3 H, Plt Count 349, MPV 9.4 12/09/21 04:23: Sodium 140, Potassium 3.5, Chloride 107, Carbon Dioxide 26.0, Anion Gap 7, BUN 15, Creatinine 0.60, Estim Creat Clear Calc 45.20, Est GFR (MDRD) Af Amer 127, Est GFR (MDRD) Non-Af 105, BUN/Creatinine Ratio 25.1 H, Glucose 102, Calcium 8.7, Total Bilirubin 0.20, AST 24, ALT 21, Alkaline Phosphatase 53, Total Protein 6.2 L, Albumin 2.8 L, Globulin 3.4, Albumin/Globulin Ratio 0.8 L Micro: Microbiology 11/28/21 14:37 Swab (Method) Nasal Screen MRSA/MSSA - Final Physical Exam Narrative Vital signs stable and afebrile. Patient is currently now having some increased heart rate and mild tachycardia. Patient symptomatically feels very rundown and tired. Left hip is soft and supple CHRISTOPHE hose and SCDs are in place bilaterally Incisional wound VAC is intact and there is no drainage in the tubing or canister Patient is able to plantarflex and dorsiflex actively. Sensation is intact to light touch to saphenous, sural, superficial and deep peroneal, and tibial distribution. Dressing is clean dry and intact. Negative Homans bilaterally, negative signs and symptoms of DVT. Const alert, oriented x3 and no apparent distress Assessment & Plan Assessment/Plan (1) Status post total hip replacement, left: PLAN: 1. S/P left direct anterior total hip arthroplasty POD #2 2. Continue Pain Medications: Tylenol and oxycodone. Meloxicam was stopped today as well as the Toradol. 3. DVT Prophylaxis: Take 81 mg aspirin twice daily for 4 weeks postoperatively for DVT prophylaxis. Patient denies any previous history of DVT or pulmonary embolism 4. PT/OT: Weightbearing as tolerated with walker 5. H & H: 8.0/26.4, patient currently is now having some tachycardia and she feels rundown and tired. Postoperative anemia secondary to acute blood loss and/or hemodilution from surgery without any intra operative complications. Case was discussed with Dr. Ger Johnson this morning. Due to patient now feeling more symptomatic and having some tachycardia with her heart history, we feel it is appropriate to transfuse her with 2 units packed red blood cells. V erbal order from Dr. Ger Johnson to the nurse was given. 6. Reactive leukocytosis: Trending down and currently 14.5, afebrile. Clinically does not appear with any underlying infection. We will continue to monitor. 7. Continue postoperative medical management per medicine: Hospitalist was giving patient IV iron and is also placed her on oral iron. 8. Continue with doxycycline postoperatively due to increased risk from BMI elevation. Discussed with the patient side effects of this medication which makes her more sensitive to sunlight. She is to take appropriate precautions. Also recommended probiotic while on this medication for 2 weeks postoperatively. 9. Encouraged Incentive Spirometry 10. Continue with incisional wound VAC for 7 days postoperatively. Currently no drainage in the canister or tubing 11. Disposition: At this time we are currently waiting on approval for the [facility] care unit at [facility]. Case was discussed with Dr. Ger Johnson. Plan will be for transfusion today. Possible discharge this afternoon if patient is doing well and if we have approval. We will need to reassess patient's status later today. This was discussed in detail with the patient. We will continue with above medications. Also discussed with the patient that we may have to postpone her other hip secondary to the postoperative anemia. She did voice understanding. We will continue with the incisional wound VAC for 7 days postoperatively. This will be removed at the residential facility. Prescriptions will be attached at the chart for possible discharge today. Patient will follow-up per postop instructions. I have reviewed the [place] Automated Rx Reporting System (OARRS) report for this patient for refill pattern and other prescriber involvement as part of the appropriate surveillance for the provision of acute and chronic controlled medic ations. The report was requested and reviewed on the date of this entry and was considered in the prescribing process. This dictation was created using voice recognition software. Phonetic and/or g rammatical errors may exist.
--- NOTE | 2021-12-09 06:58 | PCM.TXEXTCAR ---
Diet Diet Order/Speech Therapy: 12/07/21 19:49 Diet: Regular - General Is pt able to select menu?: Yes Routine Orders/Code Status Routine Lab Work: CBC (Repeat CBC December 10, 2021) and BMP (Repeat BMP December 10, 2021) Wound(s) left hip: Wound Type: Surgical Incision Dressing Change: Remove incisional wound VAC on December 14, 2021. Therapies Weight Bearing: Weight bearing as tolerated Physical Therapy: Eval and Treat (Follow direct anterior total hip arthroplasty precautions) Occupational Therapy: Eval and Treat Problem/Diagnosis (1) Status post total hip replacement, left: Status: Acute Code(s): Z96.642 - Presence of left artificial hip joint Plan: PLAN: 1.? S/P left direct anterior total hip arthroplasty POD #3 2.? Continue Pain Medications: Tylenol and oxycodone.? Meloxicam was stopped today as well as the Toradol. 3.? DVT Prophylaxis: Take 81 mg aspirin twice daily for 4 weeks postoperatively for DVT prophylaxis.? Patient denies any previous history of DVT or pulmonary embolism 4.? PT/OT: Weightbearing as tolerated with walker 5.? H & H: 10.0/32.3, asymptomatic.? Postoperative anemia secondary to acute blood loss and dilutional from surgery without any intra operative complications.? Patient did receive packed red blood cells 2 units yesterday and is doing much better today.? Vitals have been stable. 6.? Reactive leukocytosis: Trending down and currently 13.8, afebrile.? Clinically does not appear with any underlying infection. 7.? Continue postoperative medical management per medicine: Medicine is okay with discharge to transitional care unit today 8.? Continue with doxycycline postoperatively due to increased risk from BMI elevation.? Discussed with the patient side effects of this medication which makes her more sensitive to sunlight.? She is to take appropriate precautions.? Also recommended probiotic while on this medication for 2 weeks postoperatively. 9.? Encouraged Incentive Spirometry 10.? Continue with incisional wound VAC for 7 days postoperatively.? Currently no drainage in the canister or tubing.? Plan for removal of incisional wound VAC on December 14, 2021.? Once removal of incisional wound VAC patient must place ABD over the incision protecting it from the pannus for 4 weeks postoperatively to allow for appropriate healing. 11.? Disposition: Approval has been obtained for discharge to transitional care unil.? Patient is doing much better today.? Orthopedically she is stable.? She has been cleared by medicine.? Plan will be for discharge to the transitional care unit today.? She will follow-up per postop instructions.? I do want patient to make sure once the incisional wound VAC has been removed to place ABD over the incision protecting it from the pannus.? She should do this for 4 weeks while the incision heals.? Prescriptions will be attached to the chart.? I would repeat lab work in 2 days with CBC and BMP. I have reviewed the [place] Automated Rx Reporting System (OARRS) report for this patient for refill pattern and other prescriber involvement as part of the appropriate surveillance for the provision of acute and chronic controlled medications.? The report was requested and reviewed on the date of this entry and was considered in the prescribing process. This dictation was created using voice recognition software.? Phonetic and/or grammatical errors may exist. . Allergies/Procedures Done in Hospital Allergies bee venom protein (honey bee) Allergy (Verified 12/07/21 08:47) Angioedema metaxalone [From Skelaxin] Allergy (Verified 12/07/21 08:47) Swelling atorvastatin Adverse Reaction (Severe, Verified 12/07/21 08:47) SEVERE MYALGIAS Procedures: Blood transfusion (2 units packed red blood cells given on December 09, 2021) and Wound Vac placement (Patient will remain with the incisional wound VAC until December 14, 2021. After removal must place ABD over the incision protecting it from the pannus for 4 weeks postoperatively allowing for appropriate healing) Type of Care/Length of Stay Estimated LOS: Convalescent Care Less Than 30 days Type of Care Needed: Skilled Rehab Potential: Good Prognosis: Good Additional Orders/Day of Discharge Day of Discharge: 12/10/21 Discharge Plan Admission Admit Date/Time: 12/09/21 15:08 Attending Provider: Ger Johnson Primary Care Provider: Chema Sanchez Chi Consulting Providers: Karina Guillory ; Yamilet Mccain ; Ronn Louis ; Shane Castillo Discharge Orders/Prescriptions Prescriptions: New acetaminophen 500 mg Tablet 1,000 mg PO Q8 14 Days Qty: 100 0RF Rx Instructions: Do not take more than 3000 mg Tylenol in a 24-hour period. doxycycline monohydrate 100 mg Capsule 100 mg PO BID 12 Days Qty: 24 0RF Rx Instructions: Continue doxycycline for 2 weeks postoperatively ferrous sulfate [FeroSul] 325 mg (65 mg iron) Tablet 325 mg PO 1200,1700 Qty: 0 0RF aspirin 81 mg Tablet,Chewable 81 mg PO BIDCM Qty: 0 0RF Rx Instructions: Take 81 mg aspirin twice daily for 4 weeks postoperatively for DVT prophylaxis oxycodone 5 mg Tablet 5 - 10 mg PO Q4H PRN PRN (Reason: Pain Score 4-10) 5 Days Qty: 60 0RF sennosides-docusate sodium [Stool Softener-Stimulant Laxat] 8.6-50 mg Tablet 2 tab PO BID Qty: 0 0RF Rx Instructions: Take until first bowel movement, then as needed Continued gabapentin 600 mg tablet 600 mg PO TID levothyroxine 25 MCG tablet 25 mcg PO DAILY omeprazole 40 MG capsule,delayed release(DR/EC) 40 mg PO 1400 PRN (Reason: GERD) Lactobac acidoph-fructooligos 1 EACH tablet 2 each PO DAILY polyethylene glycol 3350 17 GM packet 17 g PO PRN PRN (Reason: Constipation) polysaccharide iron complex 150 MG capsule 150 mg PO DAILYCM Qty: 30 0RF potassium chloride 20 MEQ tablet 40 meq PO DAILY Qty: 60 0RF docusate sodium 100 MG capsule 300 mg PO QHS ascorbic acid (vitamin C) 500 MG capsule 1,000 mg PO BID green tea leaf extract 150 MG capsule 150 mg PO DAILY linaclotide 72 mcg capsule 145 mcg PO PRN PRN (Reason: IBS) sucralfate [Carafate] 1 gram Tablet 1 g PO 4X/DAY methenamine hippurate 1 gram Tablet 2 g PO BID cholecalciferol (vitamin D3) [Vitamin D3] 25 mcg (1,000 unit) Capsule 25 mcg PO DAILY psyllium husk [Daily Fiber] 0.4 gram Capsule 0.8 g PO DAILY Uqora 1 packet PO/SL .Q3DAY Uqora Control 2 cap PO/SL DAILY Uqora Remot 1 cap PO/SL DAILY rosuvastatin 5 mg tablet 5 mg PO .Q3DAY clopidogrel 75 mg tablet 75 mg PO DAILY Qty: 90 3RF Discontinued diclofenac sodium 50 mg tablet,delayed release (DR/EC) 50 mg PO BID Label Comments: TAKE 1 TABLET ORALLY TWICE PER DAY FOR 90 DAYS aspirin 81 MG tablet 81 mg PO DAILY@0800 omega 6-hvv-uow-fish oil 500 MG capsule,delayed release(DR/EC) 500 mg PO DAILY turmeric root extract 500 MG capsule 500 mg PO DAILY acetaminophen [Tylenol Ex Str Rapid Release] 500 mg Tablet 1,000 mg PO Q6H PRN (Reason: Pain) Referrals / Follow Up: Chema Sanchez Chi, MD [Primary Care Provider] - West Jacobsen PA-C [PHYSICIAN OPEN HEAR[employer] FURNACE OPERATOR] - 12/22/21 2:45 pm Disposition Disposition (needs filled in before D/C Order can be placed): Long-Term Facility
--- NOTE | 2021-12-09 10:10 | PCM.PN.HOSP ---
Subjective Subjective Follow-up on postop medical management/left total hip replacement: Patient was seen and examined.? She complains of feeling tired. Denied any dizziness or palpitation. She is tachycardic. She has not had any bowel movement. No hematochezia or melena. She will be transfused 2 units of packed RBCs by orthopedics. Objective Data Objective Data Vital Signs: Vital Signs Temp Pulse Resp BP Pulse Ox O2 Del Method O2 Flow Rate 98.2 F 117 H 18 154/73 H 95 Room Air 2 12/09/21 04:13 12/09/21 04:13 12/09/21 04:13 12/09/21 04:13 12/09/21 04:13 12/09/21 04:13 12/07/21 17:48 Oxygen Flow Rate (L/min) 2 Oxygen Delivery Method Room Air Weight: 100 kg Body Mass Index (BMI) 37.8 Intake & Output: Intake and Output for Last 24 Hours 12/07/21 12/08/21 12/09/21 23:59 23:59 23:59 Intake Total 2986.17 / 2986.17 414.75 / 414.75 Output Total 1700 / 1700 1450 / 1450 Balance 1286.17 / 1286.17 -1035.25 / -1035.25 Lab / Micro Data Result Diagrams: 12/09/21 04:23 12/09/21 04:23 Labs: Laboratory Results - last 24 hr 12/08/21 06:45: Iron 14 L, TIBC 345, Iron Saturation 4.1 L, Ferritin 18 12/08/21 10:55: Hgb 8.2 L, Hct 27.2 L, Retic Count 3.05 H, Immature Retic Fraction 29.50 H, Retic Hgb Equivalent 21.5 L 12/08/21 10:55: Blood Type A POSITIVE, Antibody Screen NEGATIVE, Crossmatch See Detail 12/09/21 04:23: WBC 14.5 H, RBC 2.98 L, Hgb 8.0 L, Hct 26.4 L, MCV 88.6, MCH 26.8 L, MCHC 30.3 L, RDW Std Deviation 52.5 H, RDW Coeff of Yevgeniy 16.3 H, Plt Count 349, MPV 9.4 12/09/21 04:23: Sodium 140, Potassium 3.5, Chloride 107, Carbon Dioxide 26.0, Anion Gap 7, BUN 15, Creatinine 0.60, Estim Creat Clear Calc 45.20, Est GFR (MDRD) Af Amer 127, Est GFR (MDRD) Non-Af 105, BUN/Creatinine Ratio 25.1 H, Glucose 102, Calcium 8.7, Total Bilirubin 0.20, AST 24, ALT 21, Alkaline Phosphatase 53, Total Protein 6.2 L, Albumin 2.8 L, Globulin 3.4, Albumin/Globulin Ratio 0.8 L Micro: Microbiology 11/28/21 14:37 Swab (Method) Nasal Screen MRSA/MSSA - Final Physical Exam Narrative Physical exam: General: Alert, Oriented x3, Cooperative, morbidly obese, comfortable, sitting in the chair HEENT: Atraumatic Oral: Moist Mucosa Neck: Supple Lungs: Diminished to auscultation Cardiovascular: HS I+II, regular, 3/6 holosystolic murmur Abdomen: Bowel Sounds Present, Soft, Non Tender Extremities: No edema, in CHRISTOPHE hoses, incisional wound VAC in place in the left hip Skin: No rashes, No breakdown Neurological: Grossly intact Psych/Mental Status: Appropriate Assessment & Plan Assessment/Plan (1) S/P hip replacement: PLAN: Plan 1.? POD#2 status post minimally invasive direct anterior left total hip replacement Her pain level controlled, continue with scheduled Tylenol, as needed oxycodone Continue with doxycycline and incisional wound VAC per orthopedics PT and OT to evaluate and treat 2.? Anemia, postop/hemodilution/iron deficiency Patient said to have lost about 500 mils of blood intraoperatively Hemoglobin remains at 8.0; orthopedics transfusing 2 units of packed RBCs Patient received IV Venofer and is on oral iron and vitamin C Continue on PPI twice daily, check stool for occult blood, 3. History of recurrent UTI, no symptoms of UTI now Grewal catheter has been removed Continue on Hiprex 4.?Severe aortic stenosis status post TAVR/CAD status post stent/Hypertension/Hyperlipidemia Continue with Plavix, statin 5.?Hypothyroidism, continue with Synthroid 6. DVT prophylaxis per orthopedics?aspirin twice daily Charges/Coding Visit Charges Inpatient E&M: 25007 Subs Hosp L2
[2021-12-09] MEDS: Ascorbic Acid 500 MG Tablet PO ×2 (10:50→16:37)
[2021-12-09] MEDS: Ensure Surgery 237 ML LIQUID PO ×2 (10:50→13:00)
[2021-12-09] MEDS: Cholecalciferol (VIT D3) 25 MCG TABLET (1,000 UNITS) PO (10:50)
[2021-12-09] MEDS: Senna/Docusate Sodium 1 Tablet 2 TABLET PO ×2 (10:50→21:07)
[2021-12-09] MEDS: Methenamine Hippurate 1 GM Tablet 2 GM PO ×2 (10:50→21:07)
[2021-12-09] MEDS: Pantoprazole Sodium 40 MG Tablet PO ×2 (10:50→21:07)
[2021-12-09] MEDS: Potassium Chloride Oral Tablet 20 MEQ 40 MEQ PO (10:51)
[2021-12-09] MEDS: 0.9% Saline Lock 10 ML Syringe IV ×2 (10:51→18:35)
[2021-12-09] MEDS: Doxycycline 100 MG CAPSULE PO ×2 (10:51→21:07)
[2021-12-09] MEDS: Magnesium Hydroxide 30 ML UDC PO (10:51)
[2021-12-09] MEDS: Furosemide 40 MG/4 ML Vial IV (10:51)
[2021-12-09] MEDS: Ferrous Sulfate 325 MG Tablet PO ×2 (13:00→16:37)
--- NOTE | 2021-12-09 14:21 | CASEMGMT ---
Social Work Per physician, Pt not ready for discharge at this time. [facility] in TCU is aware and a bed will remain available in TCU when pt is medically ready. Plan: TCU, When medically ready [facility]
[2021-12-09 20:04] LABS: Hematocrit 33.2 % (37-47); Hemoglobin 10.4 g/dL (12.0-15.0)
[2021-12-09] MEDS: Rosuvastatin Calcium 5 MG Tablet PO (21:07)
[2021-12-10 02:30] VITALS: BP 137/67; PULSE 94; RESP 16; TEMP 36.6; O2SAT 93
[2021-12-10] MEDS: Levothyroxine 25 MCG TABLET PO (05:22)
[2021-12-10] MEDS: Acetaminophen 500 MG Tablet 1000 MG PO ×2 (05:22→12:56)
[2021-12-10] MEDS: Sucralfate 1 GM Tablet PO ×2 (05:23→10:56)
[2021-12-10] MEDS: Gabapentin 600 MG Tablet PO ×2 (05:23→12:57)
[2021-12-10 06:40] LABS: Absolute Lymphocyte Count 1.44 X10^3/uL (0.83-4.51); Absolute Neutrophil Count 10.5 X10^3/uL (2.0-7.7); Basophil# 0.03 X10^3/uL; Basophil% 0.2 % (0-1); Eosinophil# 0.08 X10^3/uL; Eosinophils% 0.6 % (0-5); Hematocrit 32.3 % (37-47); Lymphocyte # 1.44 X10^3/ul (0.83-4.51); Lymphocyte % 10.4 % (19-41); Mean Corpuscular Hgb 27.1 pg (27.0-32.0); Mean Corpuscular Volume 87.5 fL (81-99); Mean Platelet Vol. 9.1 fl (6.2-12.0); Monocyte# 1.63 X10^3/uL; Monocyte% 11.8 % (0-10); NRBC Flagged by Analyzer 0 % (0-5); Neutrophil # 10.49 X10^3/uL (2.7-7.7); Neutrophil % 76.2 % (47-70); POSITIVE DIFFERENTIAL YES; Platelet Count 307 K/mm3 (150-450); RBC Distribution Width CV 16.1 % (11.6-14.6); RBC Distribution Width SD 51.7 fl (35.1-43.9); Red Blood Count 3.69 M/mm3 (4.2-5.4); White Blood Count 13.8 K/mm3 (4.4-11.0)
[2021-12-10 06:49] LABS: Differential Indicated SCAN CRITERIA MET
[2021-12-10 07:07] LABS: Anion Gap 6 (5-15); BUN 13 mg/dL (7-18); BUN/Creat Ratio 25.8 RATIO (10-20); Chloride 107 mmol/L (98-107); Differential Comment SCANNED; EST Glomerular Filtration Rate 129 mL/min (>60); Est Glom Filt Rate - Afr Amer 156 mL/min (>60); Glucose 106 mg/dL (74-106); Potassium 3.4 mmol/L (3.5-5.1); Sodium Level 140 mmol/L (136-145)
[2021-12-10 07:39] VITALS: O2SAT 93
[2021-12-10 08:51] VITALS: BP 143/76; PULSE 93; RESP 18; TEMP 36.8; O2SAT 93
[2021-12-10] MEDS: Senna/Docusate Sodium 1 Tablet 2 TABLET PO (08:53)
[2021-12-10] MEDS: Ascorbic Acid 500 MG Tablet PO (08:54)
[2021-12-10] MEDS: Doxycycline 100 MG CAPSULE PO (08:54)
[2021-12-10] MEDS: Cholecalciferol (VIT D3) 25 MCG TABLET (1,000 UNITS) PO (08:54)
[2021-12-10] MEDS: Potassium Chloride Oral Tablet 20 MEQ 40 MEQ PO (08:54)
[2021-12-10] MEDS: Methenamine Hippurate 1 GM Tablet 2 GM PO (08:54)
[2021-12-10] MEDS: Pantoprazole Sodium 40 MG Tablet PO (08:55)
--- NOTE | 2021-12-10 09:32 | PCM.PN.HOSP ---
Subjective Subjective Follow-up on postop medical management/left total hip replacement: Patient was seen and examined.? She feels much improved. She is no more tired. Denied any dizziness or palpitation. She received 2 units of packed RBC. She got Lasix in between transfusion. She has diuresed well. Objective Data Objective Data Vital Signs: Vital Signs Temp Pulse Resp BP Pulse Ox O2 Del Method O2 Flow Rate 98.2 F 93 18 143/76 H 93 Room Air 2 12/10/21 08:51 12/10/21 08:51 12/10/21 08:51 12/10/21 08:51 12/10/21 08:51 12/10/21 08:51 12/07/21 17:48 Oxygen Flow Rate (L/min) 2 Oxygen Delivery Method Room Air Weight: 100 kg Body Mass Index (BMI) 37.8 Intake & Output: Intake and Output for Last 24 Hours 12/08/21 12/09/21 12/10/21 23:59 23:59 23:59 Intake Total 414.75 / 414.75 800 / 800 Output Total 1450 / 1450 1250 / 1650 1300 / 1300 Balance -1035.25 / -1035.25 -450 / -850 -1300 / -1300 Lab / Micro Data Result Diagrams: 12/10/21 06:06 12/10/21 06:06 Labs: Laboratory Results - last 24 hr 12/08/21 10:55: Blood Type A POSITIVE, Antibody Screen NEGATIVE, Crossmatch See Detail 12/09/21 19:50: Hgb 10.4 L, Hct 33.2 L 12/10/21 06:06: WBC 13.8 H, RBC 3.69 L, Hgb 10.0 L, Hct 32.3 L, MCV 87.5, MCH 27.1, MCHC 31.0 L, RDW Std Deviation 51.7 H, RDW Coeff of Yevgeniy 16.1 H, Plt Count 307, MPV 9.1, Immature Gran % (Auto) 0.800, Neut % (Auto) 76.2 H, Lymph % (Auto) 10.4 L, Gregory % (Auto) 11.8 H, Eos % (Auto) 0.6, Baso % (Auto) 0.2, Absolute Neuts (auto) 10.5 H, Absolute Lymphs (auto) 1.44, Nucleated RBC % 0, Differential Comment SCANNED, Diff Path Review October foll 12/10/21 06:06: Sodium 140, Potassium 3.4 L, Chloride 107, Carbon Dioxide 27.0, Anion Gap 6, BUN 13, Creatinine 0.50 L, Estim Creat Clear Calc 45.20, Est GFR (MDRD) Af Amer 156, Est GFR (MDRD) Non-Af 129, BUN/Creatinine Ratio 25.8 H, Glucose 106, Calcium 9.0 Micro: Microbiology 11/28/21 14:37 Swab (Method) Nasal Screen MRSA/MSSA - Final Physical Exam Narrative Physical exam: General: Alert, Oriented x3, Cooperative, morbidly obese, comfortable, sitting in the chair HEENT: Atraumatic Oral: Moist Mucosa Neck: Supple Lungs: Diminished to auscultation Cardiovascular: HS I+II, regular, 3/6 holosystolic murmur Abdomen: Bowel Sounds Present, Soft, Non Tender Extremities: No edema, in CHRISTOPHE hoses, incisional wound VAC in place in the left hip Skin: No rashes, No breakdown Neurological: Grossly intact Psych/Mental Status: Appropriate Assessment & Plan Assessment/Plan (1) S/P hip replacement: PLAN: Plan 1.?POD#3 status post minimally invasive direct anterior left total hip replacement Her pain level remains controlled, continue with scheduled Tylenol, as needed oxycodone Continue with doxycycline and incisional wound VAC per orthopedics PT and OT to evaluate and treat 2.?Anemia, postop/hemodilution/iron deficiency Stool for occult blood is still pending because patient has not had a bowel movement; I doubt GI bleed now Patient said to have lost about 500 mils of blood intraoperatively Status post 2 units packed RBC; repeat hemoglobin is 10 Continue on oral Venofer and vitamin C We will resume her aspirin and Plavix 3. History of recurrent UTI, no symptoms of UTI now Grewal catheter has been removed Continue on Hiprex 4.?Severe aortic stenosis status post TAVR/CAD status post stent/Hypertension/Hyperlipidemia Continue withaspirin, Plavix, statin 5.?Hypothyroidism, continue with Synthroid 6. DVT prophylaxis per orthopedics?aspirin twice daily Patient appears to be medically stable for discharge to transitional care unit Charges/Coding Visit Charges Inpatient E&M: 37263 Subs Hosp L2
--- NOTE | 2021-12-10 11:22 | PN.ORTHO_ITS ---
Subjective Subjective The patient was sitting in bedside chair upon examination. Patient denies any chest pain, shortness of breath, dizziness, lightheadedness, nausea or vomiting, or calf pain. Pain is controlled on medications. No adverse overnight events. Patient did receive 2 units of packed red blood cells yesterday. She is doing much better today. She has not tired. Her color looks much better. She has been approved for discharge to transitional care unit at [facility]. Patient has only been using Tylenol for pain control. Patient does have incisional wound VAC with no drainage. Objective Data Objective Data Vital Signs: Vital Signs Temp Pulse Resp BP Pulse Ox O2 Del Method O2 Flow Rate 98.2 F 93 18 143/76 H 93 Room Air 2 12/10/21 08:51 12/10/21 08:51 12/10/21 08:51 12/10/21 08:51 12/10/21 08:51 12/10/21 08:51 12/07/21 17:48 Oxygen Flow Rate (L/min) 2 Oxygen Delivery Method Room Air Weight: 100 kg Body Mass Index (BMI) 37.8 Intake & Output: Intake and Output for Last 24 Hours 12/08/21 12/09/21 12/10/21 23:59 23:59 23:59 Intake Total 414.75 / 414.75 800 / 800 Output Total 1450 / 1450 1250 / 1650 1300 / 1300 Balance -1035.25 / -1035.25 -450 / -850 -1300 / -1300 Lab / Micro Data Result Diagrams: 12/10/21 06:06 12/10/21 06:06 Labs: Laboratory Results - last 24 hr 12/08/21 10:55: Blood Type A POSITIVE, Antibody Screen NEGATIVE, Crossmatch See Detail 12/09/21 19:50: Hgb 10.4 L, Hct 33.2 L 12/10/21 06:06: WBC 13.8 H, RBC 3.69 L, Hgb 10.0 L, Hct 32.3 L, MCV 87.5, MCH 27.1, MCHC 31.0 L, RDW Std Deviation 51.7 H, RDW Coeff of Yevgeniy 16.1 H, Plt Count 307, MPV 9.1, Immature Gran % (Auto) 0.800, Neut % (Auto) 76.2 H, Lymph % (Auto) 10.4 L, [place] % (Auto) 11.8 H, Eos % (Auto) 0.6, Baso % (Auto) 0.2, Absolute Neuts (auto) 10.5 H, Absolute Lymphs (auto) 1.44, Nucleated RBC % 0, Differential Comment SCANNED, Diff Path Review October foll 12/10/21 06:06: Sodium 140, Potassium 3.4 L, Chloride 107, Carbon Dioxide 27.0, Anion Gap 6, BUN 13, Creatinine 0.50 L, Estim Creat Clear Calc 45.20, Est GFR (MDRD) Af Amer 156, Est GFR (MDRD) Non-Af 129, BUN/Creatinine Ratio 25.8 H, Glucose 106, Calcium 9.0 Micro: Microbiology 11/28/21 14:37 Swab (Method) Nasal Screen MRSA/MSSA - Final Physical Exam Narrative Vital signs stable and afebrile. Left thigh is soft and supple CHRISTOPHE hose and SCDs are in place bilaterally Incisional wound VAC in place with no drainage in tubing or canister Patient is able to plantarflex and dorsiflex actively. Sensation is intact to light touch to saphenous, sural, superficial and deep peroneal, and tibial distribution. Dressing is clean dry and intact. Negative Homans bilaterally, negative signs and symptoms of DVT. Const alert, oriented x3 and no apparent distress Assessment & Plan Assessment/Plan (1) Status post total hip replacement, left: PLAN: 1. S/P left direct anterior total hip arthroplasty POD #3 2. Continue Pain Medications: Tylenol and oxycodone. Meloxicam was stopped today as well as the Toradol. 3. DVT Prophylaxis: Take 81 mg aspirin twice daily for 4 weeks postoperatively for DVT prophylaxis. Patient denies any previous history of DVT or pulmonary embolism 4. PT/OT: Weightbearing as tolerated with walker 5. H & H: 10.0/32.3, asymptomatic. Postoperative anemia secondary to acute blood loss and dilutional from surgery without any intra operative complications. Patient did receive packed red blood cells 2 units yesterday and is doing much better today. Vitals have been stable. 6. Reactive leukocytosis: Trending down and currently 13.8, afebrile. Clinically does not appear with any underlying infection. 7. Continue postoperative medical management per medicine: Medicine is okay with discharge to transitional care unit today 8. Continue with doxycycline postoperatively due to increased risk from BMI elevation. Discussed with the patient side effects of this medication which makes her more sensitive to sunlight. She is to take appropriate precautions. Also recommended probiotic while on this medication for 2 weeks postoperatively. 9. Encouraged Incentive Spirometry 10. Continue with incisional wound VAC for 7 days postoperatively. Currently no drainage in the canister or tubing. Plan for removal of incisional wound VAC on December 14, 2021. Once removal of incisional wound VAC patient must place ABD over the incision protecting it from the pannus for 4 weeks postoperatively to allow for appropriate healing. 11. Disposition: Approval has been obtained for discharge to transitional care unil. Patient is doing much better today. Orthopedically she is stable. She has been cleared by medicine. Plan will be for discharge to the transitional care unit today. She will follow-up per postop instructions. I do want patient to make sure once the incisional wound VAC has been removed to place ABD over the incision protecting it from the pannus. She should do this for 4 weeks while the incision heals. Prescriptions will be attached to the chart. I would repeat lab work in 2 days with CBC and BMP. I have reviewed the [place] Automated Rx Reporting System (OARRS) report for this patient for refill pattern and other prescriber involvement as part of the appropriate surveillance for the provision of acute and chronic controlled medications. The report was requested and reviewed on the date of this entry and was considered in the prescribing process. This dictation was created using voice recognition software. Phonetic and/or grammatical errors may exist.
--- NOTE | 2021-12-10 11:36 | PCM.DC.SUM ---
Providers Date of Admission: 12/09/21 Date of Discharge: 12/10/21 Primary Care Physician: Dr. Chema Sanchez MD Consultations 12/07/21 11:33 Consult: Hospitalist Routine Consulting Provider: [facility] Reason for Consult: post op med management EMERGENT Consult: Yes Notified: Yes Date Notified: 12/07/21 Time Notified: 11:33 Method of Notification: cortext Comments:: dr. randle viewed Reason For Visit: LT TOTAL HIP ANTERIOR APPROACH Diagnosis Discharge Diagnosis (1) Status post total hip replacement, left: Status: Acute Code(s): Z96.642 - Presence of left artificial hip joint Plan: PLAN: 1.? S/P left direct anterior total hip arthroplasty POD #3 2.? Continue Pain Medications: Tylenol and oxycodone.? Meloxicam was stopped today as well as the Toradol. 3.? DVT Prophylaxis: Take 81 mg aspirin twice daily for 4 weeks postoperatively for DVT prophylaxis.? Patient denies any previous history of DVT or pulmonary embolism 4.? PT/OT: Weightbearing as tolerated with walker 5.? H & H: 10.0/32.3, asymptomatic.? Postoperative anemia secondary to acute blood loss and dilutional from surgery without any intra operative complications.? Patient did receive packed red blood cells 2 units yesterday and is doing much better today.? Vitals have been stable. 6.? Reactive leukocytosis: Trending down and currently 13.8, afebrile.? Clinically does not appear with any underlying infection. 7.? Continue postoperative medical management per medicine: Medicine is okay with discharge to transitional care unit today 8.? Continue with doxycycline postoperatively due to increased risk from BMI elevation.? Discussed with the patient side effects of this medication which makes her more sensitive to sunlight.? She is to take appropriate precautions.? Also recommended probiotic while on this medication for 2 weeks postoperatively. 9.? Encouraged Incentive Spirometry 10.? Continue with incisional wound VAC for 7 days postoperatively.? Currently no drainage in the canister or tubing.? Plan for removal of incisional wound VAC on December 14, 2021.? Once removal of incisional wound VAC patient must place ABD over the incision protecting it from the pannus for 4 weeks postoperatively to allow for appropriate healing. 11.? Disposition: Approval has been obtained for discharge to transitional care [facility].? Patient is doing much better today.? Orthopedically she is stable.? She has been cleared by medicine.? Plan will be for discharge to the transitional care unit today.? She will follow-up per postop instructions.? I do want patient to make sure once the incisional wound VAC has been removed to place ABD over the incision protecting it from the pannus.? She should do this for 4 weeks while the incision heals.? Prescriptions will be attached to the chart.? I would repeat lab work in 2 days with CBC and BMP. I have reviewed the [place] Automated Rx Reporting System (OARRS) report for this patient for refill pattern and other prescriber involvement as part of the appropriate surveillance for the provision of acute and chronic controlled medications.? The report was requested and reviewed on the date of this entry and was considered in the prescribing process. This dictation was created using voice recognition software.? Phonetic and/or grammatical errors may exist. . Medications at Discharge Home Medications levothyroxine 25 mcg tablet 25 mcg PO DAILY THYROID 03/02/17 omeprazole 40 mg capsule,delayed release 40 mg PO 1400 PRN GERD 04/11/18 Lactobacillus acidophilus 500 million cell-fructooligosac 50 mg tablet 2 each PO DAILY probiotic 03/12/19 polyethylene glycol 3350 17 gram oral powder packet 17 g PO PRN PRN Constipation 04/28/19 polysaccharide iron complex 150 mg iron capsule 150 mg PO DAILYCM iron supplement #30 caps 07/07/19 potassium chloride 20 mEq tablet,extended release(part/cryst) 40 meq PO DAILY supplement #60 tabs 07/07/19 ascorbic acid (vitamin C) 500 mg capsule 1,000 mg PO BID vitamin 01/06/20 docusate sodium 100 mg capsule 300 mg PO QHS stool softner 01/06/20 green tea leaf extract 150 mg capsule 150 mg PO DAILY supplement 01/06/20 gabapentin 600 mg tablet 600 mg PO TID PAIN 12/17/20 linaclotide 72 mcg capsule 145 mcg PO PRN PRN IBS 08/22/21 clopidogrel 75 mg tablet 75 mg PO DAILY #90 tabs 08/29/21 Uqora 1 packet PO/SL .Q3DAY 11/22/21 Uqora Control 2 cap PO/SL DAILY 11/22/21 Uqora Remot 1 cap PO/SL DAILY UTI 11/22/21 cholecalciferol (vitamin D3) 25 mcg (1,000 unit) capsule (Vitamin D3) 25 mcg PO DAILY 11/22/21 methenamine hippurate 1 gram tablet 2 g PO BID 11/22/21 psyllium husk 0.4 gram capsule (Daily Fiber) 0.8 g PO DAILY 11/22/21 rosuvastatin 5 mg tablet 5 mg PO .Q3DAY 11/22/21 sucralfate 1 gram tablet (Carafate) 1 g PO 4X/DAY 11/22/21 acetaminophen 500 mg tablet 1,000 mg PO Q8 14 days #100 tabs 12/09/21 aspirin 81 mg chewable tablet 81 mg PO BIDCM #0 tabs 12/09/21 doxycycline monohydrate 100 mg capsule 100 mg PO BID 12 days #24 caps 12/09/21 ferrous sulfate 325 mg (65 mg iron) tablet (FeroSul) 325 mg PO 1200,1700 #0 tabs 12/09/21 oxycodone 5 mg tablet 5 - 10 mg PO Q4H PRN PRN Pain Score 4-10 5 days #60 tabs 12/09/21 sennosides 8.6 mg-docusate sodium 50 mg tablet (Stool Softener-Stimulant Laxative) 2 tab PO BID #0 tabs 12/09/21 Hospital Course Operations None (Left direct anterior total hip arthroplasty) Procedures Blood transfusion (2 units packed red blood cells on December 09, 2021) and Wound vac placement (Incisional wound VAC for 7 days postoperatively) Summary of Care Provided Hospital Course: Patient is a 71-year-old female who failed conservative measures for her left hip. After failing conservative measures, the patient opted to proceed with a left direct anterior total hip arthroplasty. The patient underwent the above-stated procedure on December 07, 2021. Patient did receive perioperative antibiotics. Intraoperatively was uneventful. For details please see dictated operative note. The patient was placed in thigh-high teds, bilateral SCDs, remained stable in recovery. Patient was admitted to the 3rd floor at [facility]. The patient's pain was managed with the use of IV and p.o. pain medications. Patient participated in physical therapy. Patient did require transfusion with 2 units packed red blood cells on December 09, 2021. Patient responded very well with her vitals improving and hemoglobin. Patient tolerated physical therapy very well. She has a incisional wound VAC that will be in place for 7 days postoperatively. This can be removed on December 14, 2021. After removal she is to place an ABD pad over the incision protecting it from the skin pannus. This should be done for 4 weeks postoperatively allowing for appropriate healing of the incision. Patient was discharged on postoperative day #3 to transitional care unit at [facility]. Patient was given medications stated below. Patient will follow up with [facility] per postop instructions for reassessment on December 22, 2021 with Emmanuel Jacobsen PA-C at 2:45 PM. Physical Exam Narrative Vital signs stable and afebrile. Left thigh is soft and supple CHRISTOPHE hose and SCDs are in place bilaterally Incisional wound VAC in place with no drainage in tubing or canister Patient is able to plantarflex and dorsiflex actively. Sensation is intact to light touch to saphenous, sural, superficial and deep peroneal, and tibial distribution. Dressing is clean dry and intact. Negative Homans bilaterally, negative signs and symptoms of DVT. Weight / BMI Weight Weight: 100 kg Body Mass Index (BMI) 37.8 ABG / Lab / Microbiology Data Result Diagrams: 12/10/21 06:06 12/10/21 06:06 Laboratory: Laboratory Results - last 24 hr 12/08/21 10:55: Blood Type A POSITIVE, Antibody Screen NEGATIVE, Crossmatch See Detail 12/09/21 19:50: Hgb 10.4 L, Hct 33.2 L 12/10/21 06:06: WBC 13.8 H, RBC 3.69 L, Hgb 10.0 L, Hct 32.3 L, MCV 87.5, MCH 27.1, MCHC 31.0 L, RDW Std Deviation 51.7 H, RDW Coeff of Yevgeniy 16.1 H, Plt Count 307, MPV 9.1, Immature Gran % (Auto) 0.800, Neut % (Auto) 76.2 H, Lymph % (Auto) 10.4 L, [place] % (Auto) 11.8 H, Eos % (Auto) 0.6, Baso % (Auto) 0.2, Absolute Neuts (auto) 10.5 H, Absolute Lymphs (auto) 1.44, Nucleated RBC % 0, Differential Comment SCANNED, Diff Path Review October12/10/21 06:06: Sodium 140, Potassium 3.4 L, Chloride 107, Carbon Dioxide 27.0, Anion Gap 6, BUN 13, Creatinine 0.50 L, Estim Creat Clear Calc 45.20, Est GFR (MDRD) Af Amer 156, Est GFR (MDRD) Non-Af 129, BUN/Creatinine Ratio 25.8 H, Glucose 106, Calcium 9.0 Microbiology: Microbiology 11/28/21 14:37 Swab (Method) Nasal Screen MRSA/MSSA - Final Meaningful Use Info Meaningful Use Diagnoses (Choose all that apply): None applicable Discharge Plan Admission Admit Date/Time: 12/09/21 15:08 Attending Provider: Ger Johnson Primary Care Provider: Chema Sanchez Chi Consulting Providers: Karina Guillory ; Yamilet Mccain ; Ronn Louis ; Shane Castillo Discharge Orders/Prescriptions Prescriptions: New acetaminophen 500 mg Tablet 1,000 mg PO Q8 14 Days Qty: 100 0RF Rx Instructions: Do not take more than 3000 mg Tylenol in a 24-hour period. doxycycline monohydrate 100 mg Capsule 100 mg PO BID 12 Days Qty: 24 0RF Rx Instructions: Continue doxycycline for 2 weeks postoperatively ferrous sulfate [FeroSul] 325 mg (65 mg iron) Tablet 325 mg PO 1200,1700 Qty: 0 0RF aspirin 81 mg Tablet,Chewable 81 mg PO BIDCM Qty: 0 0RF Rx Instructions: Take 81 mg aspirin twice daily for 4 weeks postoperatively for DVT prophylaxis oxycodone 5 mg Tablet 5 - 10 mg PO Q4H PRN PRN (Reason: Pain Score 4-10) 5 Days Qty: 60 0RF sennosides-docusate sodium [Stool Softener-Stimulant Laxat] 8.6-50 mg Tablet 2 tab PO BID Qty: 0 0RF Rx Instructions: Take until first bowel movement, then as needed Continued gabapentin 600 mg tablet 600 mg PO TID levothyroxine 25 MCG tablet 25 mcg PO DAILY omeprazole 40 MG capsule,delayed release(DR/EC) 40 mg PO 1400 PRN (Reason: GERD) Lactobac acidoph-fructooligos 1 EACH tablet 2 each PO DAILY polyethylene glycol 3350 17 GM packet 17 g PO PRN PRN (Reason: Constipation) polysaccharide iron complex 150 MG capsule 150 mg PO DAILYCM Qty: 30 0RF potassium chloride 20 MEQ tablet 40 meq PO DAILY Qty: 60 0RF docusate sodium 100 MG capsule 300 mg PO QHS ascorbic acid (vitamin C) 500 MG capsule 1,000 mg PO BID green tea leaf extract 150 MG capsule 150 mg PO DAILY linaclotide 72 mcg capsule 145 mcg PO PRN PRN (Reason: IBS) sucralfate [Carafate] 1 gram Tablet 1 g PO 4X/DAY methenamine hippurate 1 gram Tablet 2 g PO BID cholecalciferol (vitamin D3) [Vitamin D3] 25 mcg (1,000 unit) Capsule 25 mcg PO DAILY psyllium husk [Daily Fiber] 0.4 gram Capsule 0.8 g PO DAILY Uqora 1 packet PO/SL .Q3DAY Uqora Control 2 cap PO/SL DAILY Uqora Remot 1 cap PO/SL DAILY rosuvastatin 5 mg tablet 5 mg PO .Q3DAY clopidogrel 75 mg tablet 75 mg PO DAILY Qty: 90 3RF Discontinued diclofenac sodium 50 mg tablet,delayed release (DR/EC) 50 mg PO BID Label Comments: TAKE 1 TABLET ORALLY TWICE PER DAY FOR 90 DAYS aspirin 81 MG tablet 81 mg PO DAILY@0800 omega 1-nqi-[id number]-fish oil 500 MG capsule,delayed release(DR/EC) 500 mg PO DAILY turmeric root extract 500 MG capsule 500 mg PO DAILY acetaminophen [Tylenol Ex Str Rapid Release] 500 mg Tablet 1,000 mg PO Q6H PRN (Reason: Pain) Referrals / Follow Up: Chema Sanchez Chi, MD [Primary Care Provider] - [place] Jacobsen PA-C [PHYSICIAN CLINICAL BIOSTATISTICIAN] - 12/22/21 2:45 pm Disposition Disposition (needs filled in before D/C Order can be placed): Longterm Facility
[2021-12-10] MEDS: Clopidogrel Bisulfate 75 MG Tablet PO (12:56)
[2021-12-10] MEDS: Ferrous Sulfate 325 MG Tablet PO (12:57)
[2021-12-10 13:32] VITALS: BP 132/71; PULSE 97; RESP 16; TEMP 37.2; O2SAT 96
[2021-12-14 07:15] LABS: Pathologist Review Reviewed
== END 2021-12-10 14:35 | disposition skilled nursing facility (03) | DRG 983 ==
LOC: SDC 13:06 → MS3 13:06
PROVIDERS: Anesthesiology; Internal Medicine; Admitting Provider Specialist; PCP Family Medicine Geriatric Medicine; Referring Provider Specialist; Visit Provider Specialist
PROC: (CPT 27284; principal; 2021-12-07 10:35)
DX: D62 Acute posthemorrhagic anemia (principal); E03.9 Hypothyroidism, unspecified; E66.01 Morbid (severe) obesity due to excess calories; I48.91 Unspecified atrial fibrillation; M16.0 Bilateral primary osteoarthritis of hip; E78.00 Pure hypercholesterolemia, unspecified; I25.10 Atherosclerotic heart disease of native coronary artery without angina pectoris; I10 Essential (primary) hypertension; I35.0 Nonrheumatic aortic (valve) stenosis; F32.A Depression, unspecified; Z68.37 Body mass index [BMI] 37.0-37.9, adult; Z90.49 Acquired absence of other specified parts of digestive tract; Z95.2 Presence of prosthetic heart valve; Z95.828 Presence of other vascular implants and grafts; Z79.02 Long term (current) use of antithrombotics/antiplatelets; Z79.82 Long term (current) use of aspirin; Z79.899 Other long term (current) drug therapy; Z87.440 Personal history of urinary (tract) infections; Z87.442 Personal history of urinary calculi; Z86.16 Personal history of COVID-19; Z87.891 Personal history of nicotine dependence
CPT/HCPCS: 36415; 73501; 73502; 76000; 80048; 80053; 81001; 82728; 82962; 83540; 83550; 83735; 85014; 85018; 85025; 85027; 85045; 86850; 86900; 86901; 86920; 86922; 87081; 88305; 88311; 93005; 97110; 97116; 97162; 97166; 97530; 97535; 99251; C1776; J7040; J7050; J7120; P9016; A4216; G0463; J1940; J2405; J2916; J3475

== ENCOUNTER 2021-12-10 14:57 | Inpatient (IN) | payer MEDICARE, OTHER, SELFPAY ==
[2021-12-10 15:11] VITALS: BP 131/65; PULSE 94; RESP 18; TEMP 36.7; O2SAT 93
[2021-12-10] MEDS: Sucralfate 1 GM Tablet PO ×2 (16:18→21:55)
[2021-12-10] MEDS: Ferrous Sulfate 325 MG Tablet PO (16:18)
[2021-12-10] MEDS: Aspirin 81 MG TAB.CHEW PO (16:18)
[2021-12-10 16:33] VITALS: BMI 38.2
--- NOTE | 2021-12-10 17:54 | HP.PCM_ITS ---
[facility] - General General Date of Admission: 12/10/21 Date of Service: 12/12/21 Chief Complaint: Here for rehab. HPI Narrative CHARISSA GUNTER, is a 71 Female who presents with followin12/07/2021 Dr. Johnson performed left minimally invasive direct anterior total hip replacement. 12/07/2021 Pain controlled. PT/OT. 12/08/2021 Off oxygen, pain fairly controlled. Scheduled Tylenol, PRN oxycodone fo pain control. Doxycycline, incisional wound VAC. Stop Toradol, Increase PPI to twice daily, start iron, Vitamin C for Hemoglobin drop from 13.3 to 8.0. Aspirin 81mg bid for DVT prophylaxis. 12/08/2021 No drainage from incisional wound VAC. 12/09/2021 Tired, tachycardic, no bowel movement. Venofer IV given. Transfuse 2 units PRBC. Grewal removed. 12/09/2021 Patient monitored for tachycardia. 12/10/2021 Admit to TCU with debility, here for rehabilitation, strengthening, prior to discharge home alone. [facility] Medical History Abnormal Pap smear of cervix Acute osteomyelitis of sacrum Alcohol use Anemia Anxiety Atherosclerotic heart disease of campo coronary artery without angina pectoris Atrial fibrillation with RVR (03/05/17) Back pain Back pain Bladder disease Body mass index (bmi) 36.0-36.9, adult Bruising Cardiology follow-up encounter Colovaginal fistula Constipation Debility Depression Essential (primary) hypertension Fatty liver Former smoker GERD (gastroesophageal reflux disease) GERD (gastroesophageal reflux disease) High cholesterol History of echocardiogram History of GI bleed History of pain when walking History of steroid therapy History of transcatheter aortic valve replacement (TAVR) (11/24/20) Hypergranulation Hypothyroidism Leg cramps Loss of consciousness Low iron Lumbosacral pain, chronic Methicillin resistant Staph aureus culture positive Neuropathy Non-healing surgical wound Nonrheumatic aortic (valve) stenosis Obesity Osteomyelitis Osteomyelitis of pelvis Postoperative seroma of subcutaneous tissue after dermatologic procedure Pressure ulcer of left heel, stage 3 Pressure ulcer of right heel, stage 3 Pressure ulcer of sacral region, 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, stage 4 Recurrent UTI (urinary tract infection) Sacral osteomyelitis Surgical wound present Walker as ambulation aid Wears glasses Home Medications levothyroxine 25 mcg tablet 25 mcg PO DAILY THYROID 03/02/17 [History Last Taken 12/07/21 06:05] omeprazole 40 mg capsule,delayed release 40 mg PO 1400 PRN GERD 04/11/18 [History Last Taken 12/07/21 06:05] Lactobacillus acidophilus 500 million cell-fructooligosac 50 mg tablet 2 each PO DAILY probiotic 03/12/19 [History Last Taken Unknown] polyethylene glycol 3350 17 gram oral powder packet 17 g PO PRN PRN Constipation 04/28/19 [History Last Taken Unknown] polysaccharide iron complex 150 mg iron capsule 150 mg PO DAILYCM iron supplement #30 caps 07/07/19 [Rx Last Taken Unknown] potassium chloride 20 mEq tablet,extended release(part/cryst) 40 meq PO DAILY supplement #60 tabs 07/07/19 [Rx Last Taken Unknown] ascorbic acid (vitamin C) 500 mg capsule 1,000 mg PO BID vitamin 01/06/20 [History Last Taken Unknown] docusate sodium 100 mg capsule 300 mg PO QHS stool softner 01/06/20 [History Last Taken Unknown] green tea leaf extract 150 mg capsule 150 mg PO DAILY supplement 01/06/20 [History Last Taken Unknown] gabapentin 600 mg tablet 600 mg PO TID PAIN 12/17/20 [History Last Taken Unknown] linaclotide 72 mcg capsule 145 mcg PO PRN PRN IBS 08/22/21 [History Last Taken Unknown] Uqora 1 packet PO/SL .Q3DAY Check with primary doctor 11/22/21 [History Last Taken Unknown] Uqora Control 2 cap PO/SL DAILY Check with primary doctor 11/22/21 [History Last Taken Unknown] Uqora Remot 1 cap PO/SL DAILY UTI 11/22/21 [History Last Taken Unknown] cholecalciferol (vitamin D3) 25 mcg (1,000 unit) capsule (Vitamin D3) 25 mcg PO DAILY Supplement 11/22/21 [History Last Taken Unknown] methenamine hippurate 1 gram tablet 2 g PO BID Check with primary doctor 11/22/21 [History Last Taken Unknown] psyllium husk 0.4 gram capsule (Daily Fiber) 0.8 g PO DAILY Check with primary doctor 11/22/21 [History Last Taken Unknown] rosuvastatin 5 mg tablet 5 mg PO .Q3DAY Cholesterol 11/22/21 [History Last Taken Unknown] sucralfate 1 gram tablet (Carafate) 1 g PO 4X/DAY Antacid 11/22/21 [History Last Taken Unknown] oxycodone 5 mg tablet 5 - 10 mg PO Q4H PRN PRN Pain Score 4-10 5 days #60 tabs 12/09/21 [Rx Last Taken Unknown] acetaminophen 500 mg tablet 1,000 mg PO Q8 Pain 1-5 12/10/21 [History Last Taken Unknown] aspirin 81 mg chewable tablet 81 mg PO BIDCM Heart 12/10/21 [History Last Taken Unknown] clopidogrel 75 mg tablet 75 mg PO DAILY Blood Thinner 12/10/21 [History Last Taken Unknown] doxycycline monohydrate 100 mg capsule 100 mg PO BID Antibiotic 12/10/21 [History Last Taken Unknown] ferrous sulfate 325 mg (65 mg iron) tablet (FeroSul) 325 mg PO 1200,1700 Supplement 12/10/21 [History Last Taken Unknown] sennosides 8.6 mg-docusate sodium 50 mg tablet (Stool Softener-Stimulant Laxative) 2 tab PO BID Constipation 12/10/21 [History Last Taken Unknown] Allergy/AdvReac Type Severity Reaction Status Date / Time bee venom protein (honey bee) Allergy Angioedema Verified 12/07/21 08:47 metaxalone [From Skelaxin] Allergy Swelling Verified 12/07/21 08:47 atorvastatin AdvReac Severe SEVERE Verified 12/07/21 08:47 MYALGIAS Family History Father Myocardial infarction age 79 Cancer lung High cholesterol Brother Heart disease High cholesterol Mother COPD (chronic obstructive pulmonary disease) Skin cancer Parkinson disease Grandmother Depression Arthritis Surgical History H/O dilation and curettage History of cardiac catheterization History of coronary artery stent placement (08/23/20) History of partial colectomy Hx of cystoscopy S/P endometrial ablation S/P flap graft S/P hysterectomy Social History (Updated 12/10/21 @ 17:[address] Chema Sanchez MD) household members: none Smoking Status: Former smoker alcohol intake: current alcohol intake frequency: holidays/special occasions only substance use type: does not use caffeine: Yes what type of physical activity do you participate in: walking and other details: Stretching frequency: 5-6 times per week seatbelt use: always do you feel safe at home: Yes additional social history: - Retired ROS Constitutional Constitutional: Denies chills, fever(s) or weight gain ENT HEENT: Denies headache(s), nasal congestion or nasal discharge Cardiovascular Cardiovascular: Denies chest pain or palpitations Respiratory/Chest Respiratory/Chest: Denies cough, excessive phlegm production or shortness of breath with exertion Gastrointestinal Gastrointestinal: Denies abdominal pain, nausea or vomiting Genitourinary Genitourinary: Denies dysuria Musculoskeletal Musculoskeletal: Denies joint pain or joint swelling Integumentary Integumentary: Denies rash or wounds Neurologic Neurologic: Denies focal weakness, numbness or tingling Psychiatric Psychiatric: Denies anxiety, auditory hallucinations, depression, homicidal ideation or suicidal ideation Vital Signs Vital Signs Vital Signs: 12/10/21 15:11 12/10/21 16:57 Temperature 98.0 F Temperature Source Temporal Pulse Rate 94 Pulse Rhythm Regular Pulse Strength Normal (2+) Respiratory Rate 18 Respiratory Effort Normal Non-Labored Respiratory Depth Normal Respiratory Pattern Normal Blood Pressure 131/65 H Blood Pressure Mean 87 Blood Pressure Source Monitor Blood Pressure Position Sitting Blood Pressure Location Right Arm Pulse Ox 93 Oxygen Delivery Method Room Air Room Air Weight Weight: 101.179 kg Body Mass Index (BMI) 38.2 Physical Exam Const alert General Appearance: cooperative HEENT normocephalic Eyes PERRL and EOMs intact bilaterally Neck supple, no JVD and no carotid bruits Resp normal respiratory effort, normal air movement and clear to auscultation bilaterally Cardio regular rate and regular rhythm GI normal to inspection, nondistended, normoactive bowel sounds, non-tender and non-distended Extremity normal capillary refill General Extremity: Negative for edema Skin no rashes or lesions noted General Skin Exam: no breakdown Psych affect normal Appearance: appropriate Results Lab / Micro Data Result Diagrams: 12/11/21 05:20 12/11/21 05:20 Assessment & Plan Assessment/Plan (1) Debility: (2) Status post total hip replacement, left: (3) Postoperative anemia: (4) Osteoarthritis: (5) Gastroesophageal reflux disease: (6) Neuropathic pain: (7) Hypothyroidism: (8) Coronary artery disease: (9) Aortic stenosis: PLAN: Plan 71 year old female with below past medical history hospitalized for left total hip replacement 12/07/[address] Johnson, complicated by postoperative anemia requiring transfusion, admitted to TCU with debility, here for rehabilitation, strengthening, prior to discharge home alone. * Debility - PT/OT. * Pain - Tylenol 1000mg q8, Oxycodone 5mg q4h prn pain (6-10). * Bowel - Miralax 17gm daily, Metamucil 1 packet daily, senna/colace 2 tablets bid. * Adult immunization - Administer pneumonia vaccine, covid19 vaccine, flu vaccine as appropriate. * DVT prophylaxis - Aspirin 81mg bid thru 01/07/2022. * Iron deficiency anemia - Ferrex 150mg bid, Vitamin C 1000mg bid. * Coronary Artery Disease - Plavix 75mg daily starting 01/08/2022. * ID - Doxycycline 100mg bid thru 12/22/2021. * Neuropathic pain - Gabapentin 600mg tid. * GI prophylaxis - Lactobacillus 2 tablets daily. * Hypothyroidism - Levothyroxine 25mcg daily. * Recurrent UTI - Methenamine 2gm bid, Vitamin C 1000mg bid. * GERD - Pantoprazole 40mg daily, Sucralfate 1gm qachs. * Hyperlipidemia - Rosuvastatin 5mg q72h. * Vitamin D deficiency - D3 25mcg daily.
[2021-12-10] MEDS: Senna/Docusate Sodium 1 Tablet 2 TABLET PO (17:55)
[2021-12-10] MEDS: Methenamine Hippurate 1 GM Tablet 2 GM PO (17:55)
[2021-12-10] MEDS: Ascorbic Acid 500 MG Tablet 1000 MG PO (17:55)
[2021-12-10] MEDS: Doxycycline 100 MG CAPSULE PO (17:55)
[2021-12-10] MEDS: Acetaminophen 500 MG Tablet 1000 MG PO (21:54)
[2021-12-10] MEDS: Gabapentin 600 MG Tablet PO (21:54)
--- NOTE | 2021-12-11 00:59 | NURSING ---
Rounding completed. Pt resting w/ eyes closed in recliner but acknowledges this nurse upon entering room. Informed pt she needs to call for assistance to prevent fall and maintain hip precautions. Placed a new pair of socks on patient as she reporting urinating on the previous pair. Standby assist w/ transfer from chair using rollator walker. Ambulates to the bathroom without difficulty. Instructed to call for staff assist back to be when finished. She verbalizes understanding.
[2021-12-11] MEDS: Acetaminophen 500 MG Tablet 1000 MG PO ×3 (05:13→22:15)
[2021-12-11] MEDS: Gabapentin 600 MG Tablet PO ×3 (05:13→22:14)
[2021-12-11] MEDS: Methenamine Hippurate 1 GM Tablet 2 GM PO ×2 (05:15→16:36)
[2021-12-11] MEDS: Ascorbic Acid 500 MG Tablet 1000 MG PO ×2 (05:15→16:36)
[2021-12-11] MEDS: Sucralfate 1 GM Tablet PO ×4 (05:16→22:16)
[2021-12-11] MEDS: Cholecalciferol (VIT D3) 25 MCG TABLET (1,000 UNITS) PO (05:16)
[2021-12-11] MEDS: Doxycycline 100 MG CAPSULE PO ×2 (05:16→16:36)
[2021-12-11] MEDS: Levothyroxine 25 MCG TABLET PO (05:16)
[2021-12-11] MEDS: Psyllium 1 PACKET PO (05:17)
[2021-12-11] MEDS: Senna/Docusate Sodium 1 Tablet 2 TABLET PO ×2 (05:17→16:36)
[2021-12-11 05:39] LABS: Absolute Lymphocyte Count 1.39 X10^3/uL (0.83-4.51); Absolute Neutrophil Count 9.3 X10^3/uL (2.0-7.7); Basophil# 0.05 X10^3/uL; Basophil% 0.4 % (0-1); Eosinophil# 0.28 X10^3/uL; Eosinophils% 2.2 % (0-5); Hematocrit 35.1 % (37-47); Hemoglobin 10.8 g/dL (12.0-15.0); Lymphocyte # 1.39 X10^3/ul (0.83-4.51); Lymphocyte % 10.9 % (19-41); Mean Corp Hgb Conc 30.8 g/dL (32-36); Mean Corpuscular Hgb 27.7 pg (27.0-32.0); Monocyte# 1.72 X10^3/uL; Monocyte% 13.4 % (0-10); NRBC Flagged by Analyzer 0.2 % (0-5); Neutrophil # 9.27 X10^3/uL (2.7-7.7); Neutrophil % 72.4 % (47-70); POSITIVE DIFFERENTIAL YES; Platelet Count 363 K/mm3 (150-450); RBC Distribution Width CV 16.6 % (11.6-14.6); RBC Distribution Width SD 53.1 fl (35.1-43.9); White Blood Count 12.8 K/mm3 (4.4-11.0)
[2021-12-11 05:42] LABS: Differential Indicated SCAN CRITERIA MET
[2021-12-11 05:59] LABS: Anion Gap 6 (5-15); BUN 20 mg/dL (7-18); BUN/Creat Ratio 32.5 RATIO (10-20); Chloride 109 mmol/L (98-107); Creatinine, Serum 0.62 mg/dL (0.55-1.02); EST Glomerular Filtration Rate 102 mL/min (>60); Est Glom Filt Rate - Afr Amer 123 mL/min (>60); Glucose 113 mg/dL (74-106); Potassium 3.6 mmol/L (3.5-5.1); Sodium Level 142 mmol/L (136-145)
[2021-12-11 06:03] LABS: Anisocytosis 1+
[2021-12-11] MEDS: Iron Polysaccharide Complex 150 MG CAPSULE PO ×2 (09:18→16:36)
[2021-12-11] MEDS: Aspirin 81 MG TAB.CHEW PO ×2 (09:19→16:36)
[2021-12-11] MEDS: Tuberculin,Purif.prot.deriv. 50 TU/ML Vial 0.1 ML ID (09:19)
[2021-12-11 14:00] VITALS: BP 135/65; PULSE 82; RESP 14; TEMP 36.2; O2SAT 92
[2021-12-12] MEDS: Gabapentin 600 MG Tablet PO ×3 (05:18→21:15)
[2021-12-12] MEDS: Ascorbic Acid 500 MG Tablet 1000 MG PO ×2 (05:19→17:31)
[2021-12-12] MEDS: Cholecalciferol (VIT D3) 25 MCG TABLET (1,000 UNITS) PO (05:20)
[2021-12-12] MEDS: Doxycycline 100 MG CAPSULE PO ×2 (05:20→17:31)
[2021-12-12] MEDS: Sucralfate 1 GM Tablet PO ×4 (05:20→21:15)
[2021-12-12] MEDS: Acetaminophen 500 MG Tablet 1000 MG PO ×3 (05:21→21:14)
[2021-12-12] MEDS: Levothyroxine 25 MCG TABLET PO (05:21)
[2021-12-12] MEDS: Methenamine Hippurate 1 GM Tablet 2 GM PO ×2 (05:21→17:31)
[2021-12-12] MEDS: Senna/Docusate Sodium 1 Tablet 2 TABLET PO ×2 (05:22→17:31)
[2021-12-12] MEDS: Aspirin 81 MG TAB.CHEW PO ×2 (08:06→17:31)
[2021-12-12] MEDS: Iron Polysaccharide Complex 150 MG CAPSULE PO ×2 (08:06→17:31)
[2021-12-12 13:15] VITALS: BP 121/62; PULSE 79; RESP 18; TEMP 36.2; O2SAT 95
--- NOTE | 2021-12-12 14:08 | PCM.PN.DRR ---
TCU RX Drug Regimen Review Subjective: TCU Admission. 71 YOM presented to the hospital for left total hip replacement on 12/07/[address] Johnson. Surgery complicated by post-operative anemia requiring transfusion. Admitted to TCU with debility for strengthening and rehabilitation. Objective: Allergies bee venom protein (honey bee) Allergy (Verified 12/07/21 08:47) Angioedema metaxalone [From Skelaxin] Allergy (Verified 12/07/21 08:47) Swelling atorvastatin Adverse Reaction (Severe, Verified 12/07/21 08:47) SEVERE MYALGIAS Current Medications Generic Name Dose Route Start Last Admin Trade Name Freq PRN Reason Stop Dose Admin Acetaminophen 1,000 mg 12/10/21 22:00 12/12/21 13:21 Acetaminophen 500 Mg Tablet PO 1,000 mg Q8 ELOISA Administration Ascorbic Acid 1,000 mg 12/10/21 18:00 12/12/21 05:19 Ascorbic Acid 500 Mg Tablet PO 1,000 mg BID ELOISA Administration Aspirin 81 mg 12/10/21 17:00 12/12/21 08:06 Aspirin 81 Mg Tab.Chew PO 01/07/22 17:01 81 mg BIDCM ELOISA Administration Cholecalciferol 25 mcg 12/11/21 06:00 12/12/21 05:20 Cholecalciferol (Vit D3) 25 Mcg Tablet (1,000 Units) PO 25 mcg DAILY ELOISA Administration Clopidogrel Bisulfate 75 mg 01/08/22 06:00 Clopidogrel Bisulfate 75 Mg Tablet PO DAILY ELOISA Doxycycline Monohydrate 100 mg 12/10/21 18:00 12/12/21 05:20 Doxycycline 100 Mg Capsule PO 12/22/21 06:01 100 mg BID ELOISA Administration Gabapentin 600 mg 12/10/21 22:00 12/12/21 13:21 Gabapentin 600 Mg Tablet PO 600 mg TID ELOISA Administration Lactobacillus Acidophilus 2 tablet 12/11/21 06:00 12/12/21 05:18 Lactobacillus Acidophilus PO 2 tablet DAILY ELOISA Administration Levothyroxine Sodium 25 mcg 12/11/21 06:00 12/12/21 05:21 Levothyroxine 25 Mcg Tablet PO 25 mcg DAILY ELOISA Administration Methenamine Hippurate 2 gm 12/10/21 18:00 12/12/21 05:21 Methenamine Hippurate 1 Gm Tablet PO 2 gm BID ELOISA Administration Oxycodone HCl 5 mg 12/10/21 18:10 Oxycodone 5 Mg Tablet PO Q4H PRN PRN Pain Score 6-10 Pantoprazole Sodium 40 mg 12/11/21 14:00 Pantoprazole Sodium 40 Mg Tablet PO 1400 PRN GERD Polyethylene Glycol 17 gm 12/12/21 08:00 12/12/21 08:12 Polyethylene Glycol 3350 17 Gm Packet PO Not Given 0800 ELOISA Polysaccharide Iron Complex 150 mg 12/11/21 08:00 12/12/21 08:06 Iron Polysaccharide Complex 150 Mg Capsule PO 150 mg BIDCM ELOISA Administration Psyllium Hydrophilic Mucilloid 1 packet 12/12/21 08:00 12/12/21 08:12 Psyllium 1 Packet PO Not Given 0800 ELOISA Rosuvastatin Calcium 5 mg 12/12/21 22:00 Rosuvastatin Calcium 5 Mg Tablet PO Q72H ELOISA Senna/Docusate Sodium 2 tablet 12/10/21 18:00 12/12/21 05:22 Senna/Docusate Sodium 1 Tablet PO 2 tablet BID ELOISA Administration Sodium Chloride 10 - 40 ml 12/10/21 15:53 0.9% Saline Lock 10 Ml Syringe IV UD PRN SALINE FLUSH Sucralfate 1 gm 12/10/21 16:00 12/12/21 12:14 Sucralfate 1 Gm Tablet PO 1 gm 1HR_ACHS ELOISA Administration Tuberculin PPD 0.1 ml 12/18/21 10:00 Tuberculin,Purif.Prot.Deriv. 50 Tu/Ml Vial ID 12/18/21 10:01 X1 ONE Problem List (Last Reviewed 12/10/21 @ 17:[address] Chema Sanchez MD) Aortic stenosis (Acute) Coronary artery disease (Acute) Hypothyroidism (Acute) Neuropathic pain (Acute) Gastroesophageal reflux disease (Acute) Osteoarthritis (Acute) Postoperative anemia (Acute) Debility (Acute) Status post total hip replacement, left (Acute) Vital Signs Temp Pulse Resp BP Pulse Ox O2 Del Method 97.2 F L 79 18 121/62 H 95 Room Air 12/12/21 13:15 12/12/21 13:15 12/12/21 13:15 12/12/21 13:15 12/12/21 13:15 12/12/21 13:15 Oxygen Delivery Method Room Air Weight: 101.179 kg Body Mass Index (BMI) 38.2 Sodium 142 mmol/L (136-145) 12/11/21 05:20 Potassium 3.6 mmol/L (3.5-5.1) 12/11/21 05:20 Chloride 109 mmol/L (98-107) H 12/11/21 05:20 Carbon Dioxide 27.0 mmol/L (21.0-32.0) 12/11/21 05:20 Anion Gap 6 (5-15) 12/11/21 05:20 BUN 20 mg/dL (7-18) H 12/11/21 05:20 Creatinine 0.62 mg/dL (0.55-1.02) 12/11/21 05:20 Est GFR (MDRD) Af Amer 123 mL/min (>60) 12/11/21 05:20 Est GFR (MDRD) Non-Af 102 mL/min (>60) 12/11/21 05:20 BUN/Creatinine Ratio 32.5 RATIO (10-20) H 12/11/21 05:20 Glucose 113 mg/dL (74-106) H 12/11/21 05:20 Assessment/Plan: 1. Pain: acetaminophen 1000mg PO Q8 and oxycodone 5mg PO Q4H PRN pain 6-10. Please continue to monitor for increased pain and PRN usage. Resident has not received any oxycodone. 2. Bowel: Miralax 17gm PO daily, psyllium 1packet PO daily and senna/docusate 2T PO BID. Please continue to monitor for constipation. Resident had a documented bowel movement 12/11. 3. DVT prophylaxis: aspirin 81mg PO BIDCM thru 01/07/22. Please continue to monitor for S/S of bleeding/DVT and hemoglobin (last 10.8g/dL). 4. Post-operation infection prophylaxis: doxycycline 100mg PO BID thru 12/22/21. Please continue to monitor for S/S of infection. 5. Iron deficiency anemia: Ferrex 150mg PO BIDCM and ascorbic acid 1000mg PO BID. Please continue to monitor for hemoglobin, dark stools and constipation. 6. CAD: clopidogrel 75mg PO daily through 01/08/22. Please continue to monitor for S/S of bleeding once medication is started. 7. Hypothyroidism: levothyroxine 25mcg PO daily. Please continue to monitor for S/S of hyper/hypothyroidism and TSH (last 11/08/21). 8. GERD: pantoprazole 40mg PO daily PRN GERD and sucralfate 1gm PO 1HR_ACHS. Please continue to monitor for S/S of GERD and diarrhea. Resident has not received any doses of pantoprazole. 9. Hyperlipidemia: rosuvastatin 5mg PO Q72H. Please consider ordering a lipid panel now and then annually as clinically appropriate. Last lipid panel from 07/2017. Thanks. Please continue to monitor AST/ALT (last WNL 12/09/21) and for muscle pain. 10. Recurrent UTI: methenamine 2gm PO BID and ascorbic acid 1000mg PO BID. Please continue to monitor for S/S of UTI. 11. GI prophylaxis: lactobacillus 2T PO daily. Please continue to monitor. 12. Vitamin D deficiency: cholecalciferol 25mcg PO daily. Please continue to monitor vitamin D levels at least annually or as clinically appropriate (last 11/08/21). Assessment/Plan for indications treated with psychotropic medications: 1. Neuropathic pain: gabapentin 600mg PO TID. Resident is using for neuropathic pain. GDR not appropriate. Please continue to monitor for confusion and renal function. Medical chart and medication regimen reviewed. The following medication irregularities or issues were identified: *1. Rosuvastatin 5mg PO Q72H. Please consider ordering a lipid panel now and then annually as clinically appropriate. Last lipid panel from 07/2017. Thanks. Date of Note:: 12/12/21
--- NOTE | 2021-12-12 16:53 | CASEMGMT ---
Social Work Met with patient to complete initial assessment. Pt known to this worker from previous stay. Verified contacts. Pt wishes to update advanced directives. SW to complete that prior to pt DC, as time allows. Discussed code status and MOLST form. Pt confirms DNR-CCA, no intubation. Notified nursing. MOLST communicated to , placed in chart. Explained Medicare benefit. Encouraged to contact secondary insurance to ensure copay coverage. Pt states she is scheduled to get her right hip replaced in February, but may push it back. Explained the 60 consecutive break in service to get new benefit period. To be aware of use of Medicare days during this stay to plan for the future. Pt appreciative of information. The goal is for pt to return home alone. SW to continue to follow for DC planning. JOSE ALEJANDRO DumontW
[2021-12-12] MEDS: Rosuvastatin Calcium 5 MG Tablet PO (21:15)
[2021-12-12 22:00] VITALS: PULSE 83; RESP 16; O2SAT 94
--- NOTE | 2021-12-13 04:37 | NURSING ---
Patient continues to self transfer/ambulate in room without assistance. Re-educated and encouraged to use call light and wait for assistance to and from bathroom due to recent hip surgery and hip precautions to be used.
[2021-12-13] MEDS: Acetaminophen 500 MG Tablet 1000 MG PO ×3 (06:34→21:27)
[2021-12-13] MEDS: Sucralfate 1 GM Tablet PO ×4 (06:34→21:27)
[2021-12-13] MEDS: Levothyroxine 25 MCG TABLET PO (06:34)
[2021-12-13] MEDS: Gabapentin 600 MG Tablet PO ×3 (06:34→21:27)
[2021-12-13] MEDS: Ascorbic Acid 500 MG Tablet 1000 MG PO ×2 (06:35→16:28)
[2021-12-13] MEDS: Methenamine Hippurate 1 GM Tablet 2 GM PO ×2 (06:35→16:29)
[2021-12-13] MEDS: Cholecalciferol (VIT D3) 25 MCG TABLET (1,000 UNITS) PO (06:35)
[2021-12-13] MEDS: Doxycycline 100 MG CAPSULE PO ×2 (06:35→16:29)
[2021-12-13] MEDS: Senna/Docusate Sodium 1 Tablet 2 TABLET PO ×2 (06:35→16:28)
[2021-12-13] MEDS: Aspirin 81 MG TAB.CHEW PO ×2 (08:34→16:29)
[2021-12-13] MEDS: Iron Polysaccharide Complex 150 MG CAPSULE PO ×2 (08:34→16:29)
[2021-12-13 09:53] VITALS: PULSE 79; RESP 18; O2SAT 95
[2021-12-13 13:45] VITALS: BP 142/69; PULSE 94; RESP 18; TEMP 36.7; O2SAT 98
[2021-12-14] MEDS: Senna/Docusate Sodium 1 Tablet 2 TABLET PO ×2 (06:50→17:01)
[2021-12-14] MEDS: Methenamine Hippurate 1 GM Tablet 2 GM PO ×2 (06:50→17:00)
[2021-12-14] MEDS: Doxycycline 100 MG CAPSULE PO ×2 (06:50→17:00)
[2021-12-14] MEDS: Ascorbic Acid 500 MG Tablet 1000 MG PO ×2 (06:50→17:01)
[2021-12-14] MEDS: Cholecalciferol (VIT D3) 25 MCG TABLET (1,000 UNITS) PO (06:50)
[2021-12-14] MEDS: Sucralfate 1 GM Tablet PO ×4 (06:51→21:19)
[2021-12-14] MEDS: Acetaminophen 500 MG Tablet 1000 MG PO ×3 (06:51→21:19)
[2021-12-14] MEDS: Levothyroxine 25 MCG TABLET PO (06:51)
[2021-12-14] MEDS: Gabapentin 600 MG Tablet PO ×3 (06:53→21:17)
[2021-12-14 07:17] LABS: Pathologist Review Reviewed
--- NOTE | 2021-12-14 07:55 | NURSING ---
Wound vac removed from left hip. Patient tolerated well. Incision runs horizontally, edges well approximated, no drainage or s/s infection noted. Covered with ABD and secured with tape to pad and protect area. Will continue to monitor.
[2021-12-14] MEDS: Iron Polysaccharide Complex 150 MG CAPSULE PO ×2 (08:09→17:00)
[2021-12-14] MEDS: Polyethylene Glycol 3350 17 GM PACKET PO (08:09)
[2021-12-14] MEDS: Psyllium 1 PACKET PO (08:09)
[2021-12-14] MEDS: Aspirin 81 MG TAB.CHEW PO ×2 (08:09→17:00)
--- NOTE | 2021-12-14 11:25 | CASEMGMT ---
Social Work IDT met with patient for care plan meeting. Explained Medicare benefit. The goal is for pt to return home alone, but has 13 steps to laundry in the basement. Pt prefers [facility] [place]. SW to continue to follow for DC planning. Natalie Fry, BABBITT SPINNER DIESEL RETROFIT INSTALLER
--- NOTE | 2021-12-14 11:26 | CASEMGMT ---
Social Work Completed HCPOA and LW with pt. Pt named brother, Jaspal, as HCPOA. Original and copy provided to pt. Copies placed on chart. Natalie Fry, LINING MARKER SPINNING FRAME FIXER
[2021-12-14 14:00] VITALS: BP 168/80; PULSE 83; RESP 16; TEMP 35.8; O2SAT 94
[2021-12-14 21:00] VITALS: PULSE 83; RESP 16; O2SAT 96
[2021-12-15] MEDS: Gabapentin 600 MG Tablet PO ×3 (06:21→20:53)
[2021-12-15] MEDS: Ascorbic Acid 500 MG Tablet 1000 MG PO ×2 (06:21→17:46)
[2021-12-15] MEDS: Senna/Docusate Sodium 1 Tablet 2 TABLET PO ×2 (06:22→17:45)
[2021-12-15] MEDS: Levothyroxine 25 MCG TABLET PO (06:22)
[2021-12-15] MEDS: Methenamine Hippurate 1 GM Tablet 2 GM PO ×2 (06:22→17:45)
[2021-12-15] MEDS: Sucralfate 1 GM Tablet PO ×4 (06:22→20:55)
[2021-12-15] MEDS: Doxycycline 100 MG CAPSULE PO ×2 (06:22→17:45)
[2021-12-15] MEDS: Cholecalciferol (VIT D3) 25 MCG TABLET (1,000 UNITS) PO (06:23)
[2021-12-15] MEDS: Acetaminophen 500 MG Tablet 1000 MG PO ×3 (06:23→20:55)
[2021-12-15] MEDS: Aspirin 81 MG TAB.CHEW PO ×2 (08:39→17:45)
[2021-12-15] MEDS: Psyllium 1 PACKET PO (08:39)
[2021-12-15] MEDS: Iron Polysaccharide Complex 150 MG CAPSULE PO ×2 (08:39→17:45)
[2021-12-15] MEDS: Polyethylene Glycol 3350 17 GM PACKET PO (08:42)
[2021-12-15 14:00] VITALS: BP 118/65; PULSE 90; RESP 16; TEMP 36.5; O2SAT 95
--- NOTE | 2021-12-15 14:51 | CASEMGMT ---
Social Work BIMS and PHQ-9 completed for MDS assessment. Natalie Fry, DISTILLERY WORKER OVERHEAD WORKER
[2021-12-15] MEDS: Rosuvastatin Calcium 5 MG Tablet PO (20:53)
[2021-12-16] MEDS: Cholecalciferol (VIT D3) 25 MCG TABLET (1,000 UNITS) PO (06:03)
[2021-12-16] MEDS: Gabapentin 600 MG Tablet PO ×3 (06:03→20:52)
[2021-12-16] MEDS: Ascorbic Acid 500 MG Tablet 1000 MG PO ×2 (06:03→17:09)
[2021-12-16] MEDS: Levothyroxine 25 MCG TABLET PO (06:03)
[2021-12-16] MEDS: Acetaminophen 500 MG Tablet 1000 MG PO ×3 (06:04→20:52)
[2021-12-16] MEDS: Methenamine Hippurate 1 GM Tablet 2 GM PO ×2 (06:04→17:10)
[2021-12-16] MEDS: Sucralfate 1 GM Tablet PO ×4 (06:04→20:51)
[2021-12-16] MEDS: Doxycycline 100 MG CAPSULE PO ×2 (06:04→17:10)
[2021-12-16] MEDS: Senna/Docusate Sodium 1 Tablet 2 TABLET PO ×2 (06:04→17:09)
[2021-12-16] MEDS: Iron Polysaccharide Complex 150 MG CAPSULE PO ×2 (08:24→17:10)
[2021-12-16] MEDS: Aspirin 81 MG TAB.CHEW PO ×2 (08:24→17:10)
[2021-12-16 14:00] VITALS: BP 141/69; PULSE 82; RESP 14; TEMP 36.7; O2SAT 95
--- NOTE | 2021-12-16 14:37 | CHAPLAIN ---
Type of Pastoral Visit _x__ Initial Visit ___ Follow-up Visit ___ On-call Visit ___ General Patient Visit ___ Spiritual Assessment ___ Family Conference ___ Bereavement ___ Rapid Response ___ Code Blue ___ Other (describe below) Pastoral Care Referral From _x__ Patient ___ Family ___ Nurse ___ Physician ___ Innovation Manager ___ Family Services Assistant ___ Other (describe below) Sacrament/Intervention _x__ Active listening ___ Anointing ___ Restoration ___ Bereavement ___ Communion _x__ Mayra exploration ___ _x__ Life review _x__ Prayer ___ Reconciliation ___ Sacrament of Sick _x__ Supportive presence ___ Wedding ___ Other (describe below) Pastoral Comments this patient was seen frequently in past admissions to TCU; pt remembers this ground service equipment mechanic and states she wanted to see ground service equipment mechanic and didn't want to miss him; pt gives review of her life, her health, and her concerns about the world since her last admission; pt continues to have health issues but hopeful that this recovery will be routine; pt is tearful when speaking about the world, the politics of times, etc.; pt seeks comfort and hope for self and the world; pt welcomes presence and prayer as well as future visits
[2021-12-16 20:00] VITALS: PULSE 85; RESP 18; O2SAT 92
[2021-12-17] MEDS: Gabapentin 600 MG Tablet PO ×3 (05:51→19:51)
[2021-12-17] MEDS: Levothyroxine 25 MCG TABLET PO (05:52)
[2021-12-17] MEDS: Doxycycline 100 MG CAPSULE PO ×2 (05:52→18:38)
[2021-12-17] MEDS: Ascorbic Acid 500 MG Tablet 1000 MG PO ×2 (05:52→18:35)
[2021-12-17] MEDS: Senna/Docusate Sodium 1 Tablet 2 TABLET PO ×2 (05:52→18:36)
[2021-12-17] MEDS: Acetaminophen 500 MG Tablet 1000 MG PO ×3 (05:52→19:51)
[2021-12-17] MEDS: Cholecalciferol (VIT D3) 25 MCG TABLET (1,000 UNITS) PO (05:52)
[2021-12-17] MEDS: Methenamine Hippurate 1 GM Tablet 2 GM PO ×2 (05:52→18:35)
[2021-12-17] MEDS: Sucralfate 1 GM Tablet PO ×4 (05:53→19:51)
[2021-12-17] MEDS: Aspirin 81 MG TAB.CHEW PO ×2 (08:17→18:35)
[2021-12-17] MEDS: Iron Polysaccharide Complex 150 MG CAPSULE PO ×2 (08:17→18:35)
[2021-12-17 10:00] VITALS: PULSE 91; RESP 16; O2SAT 93
[2021-12-17 14:00] VITALS: BP 144/61; PULSE 79; RESP 18; TEMP 37.3; O2SAT 95
[2021-12-18 06:03] LABS: Absolute Lymphocyte Count 1.37 X10^3/uL (0.83-4.51); Absolute Neutrophil Count 5.2 X10^3/uL (2.0-7.7); Basophil# 0.04 X10^3/uL; Basophil% 0.5 % (0-1); Eosinophil# 0.24 X10^3/uL; Hematocrit 34.4 % (37-47); Hemoglobin 10.1 g/dL (12.0-15.0); Lymphocyte # 1.37 X10^3/ul (0.83-4.51); Lymphocyte % 16.9 % (19-41); Mean Corp Hgb Conc 29.4 g/dL (32-36); Mean Corpuscular Hgb 27.3 pg (27.0-32.0); Mean Platelet Vol. 9.1 fl (6.2-12.0); Monocyte# 1.16 X10^3/uL; Monocyte% 14.3 % (0-10); NRBC Flagged by Analyzer 0 % (0-5); Neutrophil # 5.23 X10^3/uL (2.7-7.7); Neutrophil % 64.2 % (47-70); Platelet Count 518 K/mm3 (150-450); RBC Distribution Width CV 16.5 % (11.6-14.6); RBC Distribution Width SD 55.5 fl (35.1-43.9); White Blood Count 8.1 K/mm3 (4.4-11.0)
[2021-12-18] MEDS: Gabapentin 600 MG Tablet PO ×3 (06:23→21:27)
[2021-12-18] MEDS: Methenamine Hippurate 1 GM Tablet 2 GM PO ×2 (06:24→17:45)
[2021-12-18] MEDS: Levothyroxine 25 MCG TABLET PO (06:24)
[2021-12-18] MEDS: Ascorbic Acid 500 MG Tablet 1000 MG PO ×2 (06:24→17:45)
[2021-12-18] MEDS: Doxycycline 100 MG CAPSULE PO ×2 (06:24→17:45)
[2021-12-18] MEDS: Senna/Docusate Sodium 1 Tablet 2 TABLET PO ×2 (06:24→17:45)
[2021-12-18] MEDS: Cholecalciferol (VIT D3) 25 MCG TABLET (1,000 UNITS) PO (06:24)
[2021-12-18] MEDS: Acetaminophen 500 MG Tablet 1000 MG PO ×3 (06:25→21:27)
[2021-12-18] MEDS: Sucralfate 1 GM Tablet PO ×4 (06:26→21:28)
[2021-12-18 06:28] LABS: Anion Gap 4 (5-15); BUN 14 mg/dL (7-18); BUN/Creat Ratio 26.9 RATIO (10-20); Chloride 111 mmol/L (98-107); Creatinine, Serum 0.52 mg/dL (0.55-1.02); EST Glomerular Filtration Rate 124 mL/min (>60); Est Glom Filt Rate - Afr Amer 149 mL/min (>60); Glucose 89 mg/dL (74-106); Sodium Level 143 mmol/L (136-145)
[2021-12-18] MEDS: Aspirin 81 MG TAB.CHEW PO ×2 (08:48→17:45)
[2021-12-18] MEDS: Psyllium 1 PACKET PO (08:48)
[2021-12-18] MEDS: Iron Polysaccharide Complex 150 MG CAPSULE PO ×2 (08:48→17:45)
[2021-12-18] MEDS: Polyethylene Glycol 3350 17 GM PACKET PO (08:51)
[2021-12-18] MEDS: Tuberculin,Purif.prot.deriv. 50 TU/ML Vial 0.1 ML ID (12:00)
[2021-12-18 14:00] VITALS: BP 119/67; PULSE 76; RESP 14; TEMP 36.2; O2SAT 96
[2021-12-18] MEDS: Rosuvastatin Calcium 5 MG Tablet PO (21:29)
[2021-12-19] MEDS: Senna/Docusate Sodium 1 Tablet 2 TABLET PO ×2 (06:31→17:17)
[2021-12-19] MEDS: Gabapentin 600 MG Tablet PO ×3 (06:31→20:57)
[2021-12-19] MEDS: Doxycycline 100 MG CAPSULE PO ×2 (06:32→17:17)
[2021-12-19] MEDS: Ascorbic Acid 500 MG Tablet 1000 MG PO ×2 (06:32→17:17)
[2021-12-19] MEDS: Acetaminophen 500 MG Tablet 1000 MG PO ×3 (06:32→20:57)
[2021-12-19] MEDS: Levothyroxine 25 MCG TABLET PO (06:33)
[2021-12-19] MEDS: Sucralfate 1 GM Tablet PO ×4 (06:33→20:57)
[2021-12-19] MEDS: Methenamine Hippurate 1 GM Tablet 2 GM PO ×2 (06:33→17:17)
[2021-12-19] MEDS: Cholecalciferol (VIT D3) 25 MCG TABLET (1,000 UNITS) PO (06:34)
[2021-12-19] MEDS: Polyethylene Glycol 3350 17 GM PACKET PO (08:00)
[2021-12-19] MEDS: Psyllium 1 PACKET PO (08:00)
[2021-12-19] MEDS: Iron Polysaccharide Complex 150 MG CAPSULE PO ×2 (10:27→17:04)
[2021-12-19] MEDS: Aspirin 81 MG TAB.CHEW PO ×2 (10:27→17:04)
[2021-12-19 11:29] VITALS: PULSE 92; O2SAT 94
[2021-12-19 14:00] VITALS: BP 134/73; PULSE 88; RESP 17; TEMP 36.8; O2SAT 94
[2021-12-20] MEDS: Gabapentin 600 MG Tablet PO ×3 (05:37→21:15)
[2021-12-20] MEDS: Acetaminophen 500 MG Tablet 1000 MG PO ×3 (05:38→21:16)
[2021-12-20] MEDS: Doxycycline 100 MG CAPSULE PO ×2 (05:38→17:55)
[2021-12-20] MEDS: Senna/Docusate Sodium 1 Tablet 2 TABLET PO ×2 (05:38→17:55)
[2021-12-20] MEDS: Levothyroxine 25 MCG TABLET PO (05:38)
[2021-12-20] MEDS: Cholecalciferol (VIT D3) 25 MCG TABLET (1,000 UNITS) PO (05:39)
[2021-12-20] MEDS: Sucralfate 1 GM Tablet PO ×4 (05:39→21:16)
[2021-12-20] MEDS: Methenamine Hippurate 1 GM Tablet 2 GM PO ×2 (05:39→17:55)
[2021-12-20] MEDS: Ascorbic Acid 500 MG Tablet 1000 MG PO ×2 (05:39→17:55)
[2021-12-20] MEDS: Iron Polysaccharide Complex 150 MG CAPSULE PO ×2 (08:15→16:14)
[2021-12-20] MEDS: Psyllium 1 PACKET PO (08:15)
[2021-12-20] MEDS: Aspirin 81 MG TAB.CHEW PO ×2 (08:15→16:14)
[2021-12-20] MEDS: Polyethylene Glycol 3350 17 GM PACKET PO (08:15)
[2021-12-20 14:00] VITALS: BP 156/84; PULSE 99; RESP 14; TEMP 36.8; O2SAT 95
[2021-12-20 23:00] VITALS: PULSE 75; RESP 16; O2SAT 95
[2021-12-21] MEDS: Gabapentin 600 MG Tablet PO ×3 (06:24→22:18)
[2021-12-21] MEDS: Methenamine Hippurate 1 GM Tablet 2 GM PO ×2 (06:24→17:44)
[2021-12-21] MEDS: Acetaminophen 500 MG Tablet 1000 MG PO ×3 (06:24→22:19)
[2021-12-21] MEDS: Senna/Docusate Sodium 1 Tablet 2 TABLET PO ×2 (06:25→17:44)
[2021-12-21] MEDS: Doxycycline 100 MG CAPSULE PO ×2 (06:25→17:44)
[2021-12-21] MEDS: Levothyroxine 25 MCG TABLET PO (06:25)
[2021-12-21] MEDS: Sucralfate 1 GM Tablet PO ×4 (06:25→22:19)
[2021-12-21] MEDS: Cholecalciferol (VIT D3) 25 MCG TABLET (1,000 UNITS) PO (06:25)
[2021-12-21] MEDS: Ascorbic Acid 500 MG Tablet 1000 MG PO ×2 (06:25→17:44)
[2021-12-21] MEDS: Psyllium 1 PACKET PO (08:07)
[2021-12-21] MEDS: Polyethylene Glycol 3350 17 GM PACKET PO (08:07)
[2021-12-21] MEDS: Iron Polysaccharide Complex 150 MG CAPSULE PO ×2 (08:07→17:44)
[2021-12-21] MEDS: Aspirin 81 MG TAB.CHEW PO ×2 (08:07→17:44)
[2021-12-21 14:00] VITALS: BP 150/76; PULSE 86; RESP 17; TEMP 36.8; O2SAT 92
--- NOTE | 2021-12-21 14:12 | NURSING ---
Patient notified that staff member tested positive for COVID - does not wish for anyone else to be notified at this time.
[2021-12-21] MEDS: Rosuvastatin Calcium 5 MG Tablet PO (22:20)
[2021-12-22] MEDS: Levothyroxine 25 MCG TABLET PO (05:26)
[2021-12-22] MEDS: Cholecalciferol (VIT D3) 25 MCG TABLET (1,000 UNITS) PO (05:26)
[2021-12-22] MEDS: Senna/Docusate Sodium 1 Tablet 2 TABLET PO ×2 (05:26→17:15)
[2021-12-22] MEDS: Sucralfate 1 GM Tablet PO ×4 (05:26→21:30)
[2021-12-22] MEDS: Methenamine Hippurate 1 GM Tablet 2 GM PO ×2 (05:27→17:15)
[2021-12-22] MEDS: Doxycycline 100 MG CAPSULE PO (05:27)
[2021-12-22] MEDS: Acetaminophen 500 MG Tablet 1000 MG PO ×3 (05:27→21:31)
[2021-12-22] MEDS: Ascorbic Acid 500 MG Tablet 1000 MG PO ×2 (05:27→17:15)
[2021-12-22] MEDS: Gabapentin 600 MG Tablet PO ×3 (05:31→21:30)
[2021-12-22] MEDS: Aspirin 81 MG TAB.CHEW PO ×2 (07:55→17:15)
[2021-12-22] MEDS: Iron Polysaccharide Complex 150 MG CAPSULE PO ×2 (07:55→17:15)
[2021-12-22] MEDS: Psyllium 1 PACKET PO (07:59)
[2021-12-22] MEDS: Polyethylene Glycol 3350 17 GM PACKET PO (07:59)
--- NOTE | 2021-12-22 10:59 | MDS.RN ---
Information for the mds was obtained from review of the clinical record, interview of resident, staff, and direct observation of resident's care .
[2021-12-22 14:00] VITALS: BP 124/68; PULSE 71; RESP 18; TEMP 36.1; O2SAT 98
[2021-12-22 20:35] VITALS: PULSE 87; RESP 16; O2SAT 95
[2021-12-23] MEDS: Levothyroxine 25 MCG TABLET PO (05:15)
[2021-12-23] MEDS: Gabapentin 600 MG Tablet PO ×3 (05:15→20:44)
[2021-12-23] MEDS: Ascorbic Acid 500 MG Tablet 1000 MG PO ×2 (05:16→18:00)
[2021-12-23] MEDS: Cholecalciferol (VIT D3) 25 MCG TABLET (1,000 UNITS) PO (05:16)
[2021-12-23] MEDS: Senna/Docusate Sodium 1 Tablet 2 TABLET PO ×2 (05:16→17:59)
[2021-12-23] MEDS: Acetaminophen 500 MG Tablet 1000 MG PO ×3 (05:16→20:44)
[2021-12-23] MEDS: Methenamine Hippurate 1 GM Tablet 2 GM PO ×2 (05:17→18:00)
[2021-12-23] MEDS: Sucralfate 1 GM Tablet PO ×4 (05:17→20:44)
[2021-12-23] MEDS: Aspirin 81 MG TAB.CHEW PO ×2 (08:29→18:00)
[2021-12-23] MEDS: Polyethylene Glycol 3350 17 GM PACKET PO (08:29)
[2021-12-23] MEDS: Psyllium 1 PACKET PO (08:29)
[2021-12-23] MEDS: Iron Polysaccharide Complex 150 MG CAPSULE PO ×2 (08:29→18:00)
[2021-12-23 10:00] VITALS: PULSE 100; RESP 18; O2SAT 91
[2021-12-23 14:00] VITALS: BP 144/67; PULSE 87; RESP 16; TEMP 36.4; O2SAT 91
--- NOTE | 2021-12-23 16:00 | CASEMGMT ---
Social Work Spoke with pt about DC plans. Pt spoke with brother whom can transport pt home 12/27. IDT agreeable. Confirmed pt requesting [facility]. Referral made via fax. No DME needs. Plan: DC home alone 12/27, [facility] Natalie Fry, LEGAL ADMINISTRATOR SECURITY COORDINATOR
[2021-12-24] MEDS: Gabapentin 600 MG Tablet PO ×3 (04:54→21:09)
[2021-12-24] MEDS: Acetaminophen 500 MG Tablet 1000 MG PO ×3 (04:54→21:10)
[2021-12-24] MEDS: Methenamine Hippurate 1 GM Tablet 2 GM PO ×2 (04:54→17:10)
[2021-12-24] MEDS: Ascorbic Acid 500 MG Tablet 1000 MG PO ×2 (04:55→17:10)
[2021-12-24] MEDS: Levothyroxine 25 MCG TABLET PO (04:55)
[2021-12-24] MEDS: Sucralfate 1 GM Tablet PO ×4 (04:55→21:10)
[2021-12-24] MEDS: Cholecalciferol (VIT D3) 25 MCG TABLET (1,000 UNITS) PO (04:55)
[2021-12-24] MEDS: Senna/Docusate Sodium 1 Tablet 2 TABLET PO ×2 (04:56→17:11)
[2021-12-24] MEDS: Aspirin 81 MG TAB.CHEW PO ×2 (08:56→17:10)
[2021-12-24] MEDS: Polyethylene Glycol 3350 17 GM PACKET PO (08:56)
[2021-12-24] MEDS: Iron Polysaccharide Complex 150 MG CAPSULE PO ×2 (08:56→17:10)
[2021-12-24] MEDS: Psyllium 1 PACKET PO (08:56)
[2021-12-24 14:00] VITALS: BP 140/68; PULSE 84; RESP 17; TEMP 36.3; O2SAT 94
[2021-12-24] MEDS: Rosuvastatin Calcium 5 MG Tablet PO (21:11)
[2021-12-24 21:12] VITALS: PULSE 85; RESP 16; O2SAT 94
[2021-12-25] MEDS: Acetaminophen 500 MG Tablet 1000 MG PO ×3 (05:36→21:30)
[2021-12-25] MEDS: Cholecalciferol (VIT D3) 25 MCG TABLET (1,000 UNITS) PO (05:37)
[2021-12-25] MEDS: Gabapentin 600 MG Tablet PO ×3 (05:37→21:29)
[2021-12-25] MEDS: Sucralfate 1 GM Tablet PO ×4 (05:37→21:30)
[2021-12-25] MEDS: Senna/Docusate Sodium 1 Tablet 2 TABLET PO ×2 (05:37→17:15)
[2021-12-25] MEDS: Levothyroxine 25 MCG TABLET PO (05:38)
[2021-12-25] MEDS: Ascorbic Acid 500 MG Tablet 1000 MG PO ×2 (05:38→17:14)
[2021-12-25] MEDS: Methenamine Hippurate 1 GM Tablet 2 GM PO ×2 (05:38→17:16)
[2021-12-25 06:50] LABS: Absolute Lymphocyte Count 1.38 X10^3/uL (0.83-4.51); Absolute Neutrophil Count 5.6 X10^3/uL (2.0-7.7); Basophil# 0.04 X10^3/uL; Basophil% 0.5 % (0-1); Eosinophil# 0.14 X10^3/uL; Eosinophils% 1.6 % (0-5); Hematocrit 36.2 % (37-47); Hemoglobin 10.7 g/dL (12.0-15.0); Lymphocyte # 1.38 X10^3/ul (0.83-4.51); Mean Corp Hgb Conc 29.6 g/dL (32-36); Mean Corpuscular Hgb 27.1 pg (27.0-32.0); Mean Corpuscular Volume 91.6 fL (81-99); Mean Platelet Vol. 9.1 fl (6.2-12.0); Monocyte# 1.34 X10^3/uL; Monocyte% 15.6 % (0-10); NRBC Flagged by Analyzer 0 % (0-5); Neutrophil # 5.64 X10^3/uL (2.7-7.7); Neutrophil % 65.6 % (47-70); Platelet Count 645 K/mm3 (150-450); RBC Distribution Width CV 15.9 % (11.6-14.6); Red Blood Count 3.95 M/mm3 (4.2-5.4); White Blood Count 8.6 K/mm3 (4.4-11.0)
[2021-12-25 07:08] LABS: Anion Gap 5 (5-15); BUN 16 mg/dL (7-18); BUN/Creat Ratio 30.4 RATIO (10-20); Calcium,Total 9.2 mg/dL (8.5-10.1); Chloride 111 mmol/L (98-107); Creatinine, Serum 0.53 mg/dL (0.55-1.02); EST Glomerular Filtration Rate 122 mL/min (>60); Est Glom Filt Rate - Afr Amer 147 mL/min (>60); Glucose 96 mg/dL (74-106); Sodium Level 142 mmol/L (136-145)
[2021-12-25] MEDS: Aspirin 81 MG TAB.CHEW PO ×2 (08:08→17:14)
[2021-12-25] MEDS: Iron Polysaccharide Complex 150 MG CAPSULE PO ×2 (08:08→17:20)
[2021-12-25 11:15] VITALS: PULSE 91; RESP 18; O2SAT 95
[2021-12-25 14:00] VITALS: BP 157/91; PULSE 87; RESP 19; TEMP 36.4; O2SAT 95
[2021-12-26] MEDS: Cholecalciferol (VIT D3) 25 MCG TABLET (1,000 UNITS) PO (05:41)
[2021-12-26] MEDS: Levothyroxine 25 MCG TABLET PO (05:41)
[2021-12-26] MEDS: Methenamine Hippurate 1 GM Tablet 2 GM PO ×2 (05:41→17:30)
[2021-12-26] MEDS: Gabapentin 600 MG Tablet PO ×3 (05:42→21:41)
[2021-12-26] MEDS: Ascorbic Acid 500 MG Tablet 1000 MG PO ×2 (05:42→17:31)
[2021-12-26] MEDS: Sucralfate 1 GM Tablet PO ×4 (05:43→21:43)
[2021-12-26] MEDS: Senna/Docusate Sodium 1 Tablet 2 TABLET PO ×2 (05:43→17:30)
[2021-12-26] MEDS: Acetaminophen 500 MG Tablet 1000 MG PO ×3 (05:44→21:42)
[2021-12-26] MEDS: Iron Polysaccharide Complex 150 MG CAPSULE PO ×2 (08:05→17:30)
[2021-12-26] MEDS: Aspirin 81 MG TAB.CHEW PO ×2 (08:05→17:30)
[2021-12-26 14:00] VITALS: BP 153/73; PULSE 82; RESP 14; TEMP 36.4; O2SAT 93
--- NOTE | 2021-12-26 17:13 | DCINST_ITS ---
Discharge Instructions Diet Discharge Diet: No restrictions Activity Discharge Activity: May Not Drive (may not drive until okayed by Dr. Johnson. ) and May Shower Weight Bearing Status: Weight bearing as tolerated Keep extremity elevated above heart level: Left Leg Dressing / Incision Call your doctor if your incision/area has: Continuous Slow Oozing, Sudden Increased Bleeding, Increased Pain/ Swelling, Increased Redness and Foul Smelling Discharge Call your doctor if you observe: Fever of 101 or Higher, Shortness of breath, Dizziness, Fainting spells, Swelling in the ankles, Chest pain, Calf discomfort and Uncontrolled pain Suture Line Care: Avoid Pulling/Pushing and Avoid Pinching/Bending Cleanse incision/area with: Soap & Water and - (OK to cover with a dry dressing if needed) Follow Up Care Please Follow Up With: West Jacobsen PA-C Test Results: Test results from this visit will be discussed in further detail at your follow- up appointment, if applicable. Pending Tests Upon Discharge: none Discharge Plan Admission Admit Date/Time: 12/10/21 14:57 Primary Reason for Your Visit: Debility due to L THR Attending Provider: Chema Sanchez Chi Primary Care Provider: Chema Sanchez Chi Instructions Patient Instructions: After Hip Replacement Using ..., Having Minimally Invasive ... Additional Instructions / Restrictions: 1. One of the reasons people get up a lot at night to urinate is because they have swelling in the legs due to the legs being dependent during the day and gravity keeping the fluid in the legs and not returning to the heart. Compression stockings help. Before you ever see any swelling in the legs you will have retained 2 liters of fluid which is about 4 1/2 pounds. Drinking fluids with caffeine also increases urinary frequency. If it is really bothering you and your sleep then I think you should consider seeing Dr. Richelle Khan who is a urologist at the hospital that only sees women in her practise. she will likely be able to help you. 2. Remember to get up at least once an hour and take a walk around the house to keep your joints from getting stiff and hurting. Do the exercises given to you by the therapists at least once a day at home. Discharge Orders/Prescriptions Prescriptions: New polysaccharide iron complex 150 mg iron Capsule 150 mg PO BIDCM Qty: 60 0RF oxycodone 5 mg Tablet 5 mg PO Q4H PRN PRN (Reason: Pain Score 6-10) 7 Days Qty: 14 0RF sennosides-docusate sodium [Stool Softener-Stimulant Laxat] 8.6-50 mg Tablet 2 tab PO BID Qty: 60 0RF Continued gabapentin 600 mg tablet 600 mg PO TID levothyroxine 25 MCG tablet 25 mcg PO DAILY omeprazole 40 MG capsule,delayed release(DR/EC) 40 mg PO 1400 PRN (Reason: GERD) Lactobac acidoph-fructooligos 1 EACH tablet 2 each PO DAILY potassium chloride 20 MEQ tablet 40 meq PO DAILY Qty: 60 0RF docusate sodium 100 MG capsule 300 mg PO QHS ascorbic acid (vitamin C) 500 MG capsule 1,000 mg PO BID green tea leaf extract 150 MG capsule 150 mg PO DAILY sucralfate [Carafate] 1 gram Tablet 1 g PO 4X/DAY methenamine hippurate 1 gram Tablet 2 g PO BID cholecalciferol (vitamin D3) [Vitamin D3] 25 mcg (1,000 unit) Capsule 25 mcg PO DAILY psyllium husk [Daily Fiber] 0.4 gram Capsule 0.8 g PO DAILY rosuvastatin 5 mg tablet 5 mg PO .Q3DAY clopidogrel 75 mg tablet 75 mg PO DAILY acetaminophen 500 mg tablet 1,000 mg PO Q8 Rx Instructions: Do not take more than 3000 mg Tylenol in a 24-hour period. aspirin 81 mg tablet,chewable 81 mg PO BIDCM Rx Instructions: Take 81 mg aspirin twice daily for 4 weeks postoperatively for DVT prophylaxis Discontinued polysaccharide iron complex 150 MG capsule 150 mg PO DAILYCM Qty: 30 0RF linaclotide 72 mcg capsule 145 mcg PO PRN PRN (Reason: IBS) oxycodone 5 mg Tablet 5 - 10 mg PO Q4H PRN PRN (Reason: Pain Score 4-10) 5 Days Qty: 60 0RF sennosides-docusate sodium [Stool Softener-Stimulant Laxat] 8.6-50 mg tablet 2 tab PO BID Rx Instructions: Take until first bowel movement, then as needed doxycycline monohydrate 100 mg capsule 100 mg PO BID Rx Instructions: Continue doxycycline for 2 weeks postoperatively ferrous sulfate [FeroSul] 325 mg (65 mg iron) tablet 325 mg PO 1200,1700 No Action polyethylene glycol 3350 17 GM packet 17 g PO PRN PRN (Reason: Constipation) Uqora 1 packet PO/SL .Q3DAY Uqora Control 2 cap PO/SL DAILY Uqora Remot 1 cap PO/SL DAILY Referrals / Follow Up: Chema Sanchez Chi, MD [Primary Care Provider] - 01/02/22 1:00 pm West Jacobsen PA-C [Med Staff - Adv Practice Prof] - 01/19/22 4:00 pm Disposition Disposition (needs filled in before D/C Order can be placed): Home Health Ser vice
--- NOTE | 2021-12-26 17:43 | PCM.DC.SUM ---
Providers Date of Admission: 12/10/21 Date of Discharge: 12/27/21 Primary Care Physician: Dr. Chema Sanchez MD Reason For Visit: L. TOTAL HIP ANTERIOR APPROACH Diagnosis Discharge Diagnosis (1) Debility: Status: Acute Code(s): R53.81 - Other malaise (2) Status post total hip replacement, left: Status: Acute Code(s): Z96.642 - Presence of left artificial hip joint (3) Postoperative anemia: Status: Acute Code(s): D64.9 - Anemia, unspecified (4) Osteoarthritis: Status: Acute Code(s): M19.90 - Unspecified osteoarthritis, unspecified site (5) Gastroesophageal reflux disease: Status: Acute Code(s): K21.9 - Gastro-esophageal reflux disease without esophagitis (6) Neuropathic pain: Status: Acute Code(s): M79.2 - Neuralgia and neuritis, unspecified (7) Hypothyroidism: Status: Acute Code(s): E03.9 - Hypothyroidism, unspecified (8) Coronary artery disease: Status: Acute Code(s): I25.10 - Atherosclerotic heart disease of [place] coronary artery without angina pectoris (9) Aortic stenosis: Status: Acute Code(s): I35.0 - Nonrheumatic aortic (valve) stenosis Medications at Discharge Home Medications levothyroxine 25 mcg tablet 25 mcg PO DAILY THYROID 03/02/17 omeprazole 40 mg capsule,delayed release 40 mg PO 1400 PRN GERD 04/11/18 Lactobacillus acidophilus 500 million cell-fructooligosac 50 mg tablet 2 each PO DAILY probiotic 03/12/19 polyethylene glycol 3350 17 gram oral powder packet 17 g PO PRN PRN Constipation 04/28/19 potassium chloride 20 mEq tablet,extended release(part/cryst) 40 meq PO DAILY supplement #60 tabs 07/07/19 ascorbic acid (vitamin C) 500 mg capsule 1,000 mg PO BID vitamin 01/06/20 docusate sodium 100 mg capsule 300 mg PO QHS stool softner 01/06/20 green tea leaf extract 150 mg capsule 150 mg PO DAILY supplement 01/06/20 gabapentin 600 mg tablet 600 mg PO TID PAIN 12/17/20 Uqora 1 packet PO/SL .Q3DAY Check with primary doctor 11/22/21 Uqora Control 2 cap PO/SL DAILY Check with primary doctor 11/22/21 Uqora Remot 1 cap PO/SL DAILY UTI 11/22/21 cholecalciferol (vitamin D3) 25 mcg (1,000 unit) capsule (Vitamin D3) 25 mcg PO DAILY Supplement 11/22/21 methenamine hippurate 1 gram tablet 2 g PO BID Check with primary doctor 11/22/21 psyllium husk 0.4 gram capsule (Daily Fiber) 0.8 g PO DAILY Check with primary doctor 11/22/21 rosuvastatin 5 mg tablet 5 mg PO .Q3DAY Cholesterol 11/22/21 sucralfate 1 gram tablet (Carafate) 1 g PO 4X/DAY Antacid 11/22/21 acetaminophen 500 mg tablet 1,000 mg PO Q8 Pain 1-5 12/10/21 aspirin 81 mg chewable tablet 81 mg PO BIDCM Heart 12/10/21 clopidogrel 75 mg tablet 75 mg PO DAILY Blood Thinner 12/10/21 oxycodone 5 mg tablet 5 mg PO Q4H PRN PRN Pain Score 6-10 7 days #14 tabs 12/26/21 polysaccharide iron complex 150 mg iron capsule 150 mg PO BIDCM #60 caps 12/26/21 sennosides 8.6 mg-docusate sodium 50 mg tablet (Stool Softener-Stimulant Laxative) 2 tab PO BID #60 tabs 12/26/21 Hospital Course Operations - (Minimally invasive left total hip replacement on 12/07/[address] Johnson) Procedures None Summary of Care Provided Minutes Spent on Discharge: 35 Physical Exam Const alert, oriented x3 and no apparent distress Constitutional Narrative: Has been doing laps in the [place] this weekend with a WW and is doing well. HEENT normocephalic and moist oral mucous membranes Resp normal respiratory effort and clear to auscultation bilaterally Cardio regular rate, regular rhythm, no rub and no gallops Cardio Narrative: systolic MM at the 2nd RICS with radiation to the LVOT, LLSB, apex. GI normal to inspection, nondistended, normoactive bowel sounds, soft to palpation and non-tender GI Narrative: States she is having regular BM's. No guarding with palpation. Extremity no calf tenderness General Extremity: Negative for edema Skin General Skin Exam: no breakdown Rashes: no rashes Weight / BMI Weight Weight: 221 lb 12.8 oz Body Mass Index (BMI) 38.2 ABG / Lab / Microbiology Data Result Diagrams: 12/25/21 06:15 12/25/21 06:15 Microbiology: Microbiology 12/22/21 10:29 Nasal Secretion SARS-CoV-2 Antigen (Rapid) - Final 12/17/21 12:13 Nasal Secretion SARS-CoV-2 Antigen (Rapid) - Final 12/12/21 09:49 Nasal Secretion SARS-CoV-2 Antigen (Rapid) - Final D/C Instructions Discharge Diet: No restrictions Weight Bearing Status: Weight bearing as tolerated Keep extremity elevated above heart level: Left Leg Call your doctor if your incision/area has: Continuous Slow Oozing, Sudden Increased Bleeding, Increased Pain/ Swelling, Increased Redness and Foul Smelling Discharge Call your doctor if you observe: Fever of 101 or Higher, Shortness of breath, Dizziness, Fainting spells, Swelling in the ankles, Chest pain, Calf discomfort and Uncontrolled pain Suture Line Care: Avoid Pulling/Pushing and Avoid Pinching/Bending Cleanse incision/area with: Soap & Water and - (OK to cover with a dry dressing if needed) Pending Tests Upon Discharge: none Please Follow Up With: West Jcaobsen PA-C Meaningful Use Info Meaningful Use Diagnoses (Choose all that apply): None applicable Discharge Plan Admission Admit Date/Time: 12/10/21 14:57 Primary Reason for Your Visit: Debility due to L THR Attending Provider: Chema Sanchez Chi Primary Care Provider: Chema Sanchez Chi Instructions Patient Instructions: After Hip Replacement Using ..., Having Minimally Invasive ... Additional Instructions / Restrictions: 1. One of the reasons people get up a lot at night to urinate is because they have swelling in the legs due to the legs being dependent during the day and gravity keeping the fluid in the legs and not returning to the heart. Compression stockings help. Before you ever see any swelling in the legs you will have retained 2 liters of fluid which is about 4 1/2 pounds. Drinking fluids with caffeine also increases urinary frequency. If it is really bothering you and your sleep then I think you should consider seeing Dr. Richelle Khan who is a urologist at the hospital that only sees women in her practise. she will likely be able to help you. 2. Remember to get up at least once an hour and take a walk around the house to keep your joints from getting stiff and hurting. Do the exercises given to you by the therapists at least once a day at home. Discharge Orders/Prescriptions Prescriptions: New polysaccharide iron complex 150 mg iron Capsule 150 mg PO BIDCM Qty: 60 0RF oxycodone 5 mg Tablet 5 mg PO Q4H PRN PRN (Reason: Pain Score 6-10) 7 Days Qty: 14 0RF sennosides-docusate sodium [Stool Softener-Stimulant Laxat] 8.6-50 mg Tablet 2 tab PO BID Qty: 60 0RF Continued gabapentin 600 mg tablet 600 mg PO TID levothyroxine 25 MCG tablet 25 mcg PO DAILY omeprazole 40 MG capsule,delayed release(DR/EC) 40 mg PO 1400 PRN (Reason: GERD) Lactobac acidoph-fructooligos 1 EACH tablet 2 each PO DAILY potassium chloride 20 MEQ tablet 40 meq PO DAILY Qty: 60 0RF docusate sodium 100 MG capsule 300 mg PO QHS ascorbic acid (vitamin C) 500 MG capsule 1,000 mg PO BID green tea leaf extract 150 MG capsule 150 mg PO DAILY sucralfate [Carafate] 1 gram Tablet 1 g PO 4X/DAY methenamine hippurate 1 gram Tablet 2 g PO BID cholecalciferol (vitamin D3) [Vitamin D3] 25 mcg (1,000 unit) Capsule 25 mcg PO DAILY psyllium husk [Daily Fiber] 0.4 gram Capsule 0.8 g PO DAILY rosuvastatin 5 mg tablet 5 mg PO .Q3DAY clopidogrel 75 mg tablet 75 mg PO DAILY acetaminophen 500 mg tablet 1,000 mg PO Q8 Rx Instructions: Do not take more than 3000 mg Tylenol in a 24-hour period. aspirin 81 mg tablet,chewable 81 mg PO BIDCM Rx Instructions: Take 81 mg aspirin twice daily for 4 weeks postoperatively for DVT prophylaxis Discontinued polysaccharide iron complex 150 MG capsule 150 mg PO DAILYCM Qty: 30 0RF linaclotide 72 mcg capsule 145 mcg PO PRN PRN (Reason: IBS) oxycodone 5 mg Tablet 5 - 10 mg PO Q4H PRN PRN (Reason: Pain Score 4-10) 5 Days Qty: 60 0RF sennosides-docusate sodium [Stool Softener-Stimulant Laxat] 8.6-50 mg tablet 2 tab PO BID Rx Instructions: Take until first bowel movement, then as needed doxycycline monohydrate 100 mg capsule 100 mg PO BID Rx Instructions: Continue doxycycline for 2 weeks postoperatively ferrous sulfate [FeroSul] 325 mg (65 mg iron) tablet 325 mg PO 1200,1700 No Action polyethylene glycol 3350 17 GM packet 17 g PO PRN PRN (Reason: Constipation) Uqora 1 packet PO/SL .Q3DAY Uqora Control 2 cap PO/SL DAILY Uqora Remot 1 cap PO/SL DAILY Referrals / Follow Up: Chema Sanchez Chi, MD [Primary Care Provider] - 01/02/22 1:00 pm West Jacobsen PA-C [Med Staff - Adv Practice Prof] - 01/19/22 4:00 pm Disposition Disposition (needs filled in before D/C Order can be placed): Home Health Service Charges/Coding Visit Charges Inpatient E&M: 92477 SNF Disch >30 Min
[2021-12-26] MEDS: Oxybutynin 5 MG Tablet PO (21:44)
[2021-12-26 21:51] VITALS: PULSE 81; RESP 16; O2SAT 95
[2021-12-27] MEDS: Gabapentin 600 MG Tablet PO (06:17)
[2021-12-27] MEDS: Levothyroxine 25 MCG TABLET PO (06:18)
[2021-12-27] MEDS: Senna/Docusate Sodium 1 Tablet 2 TABLET PO (06:18)
[2021-12-27] MEDS: Acetaminophen 500 MG Tablet 1000 MG PO (06:18)
[2021-12-27] MEDS: Methenamine Hippurate 1 GM Tablet 2 GM PO (06:19)
[2021-12-27] MEDS: Cholecalciferol (VIT D3) 25 MCG TABLET (1,000 UNITS) PO (06:19)
[2021-12-27] MEDS: Ascorbic Acid 500 MG Tablet 1000 MG PO (06:19)
[2021-12-27] MEDS: Sucralfate 1 GM Tablet PO ×2 (06:20→11:43)
[2021-12-27] MEDS: Aspirin 81 MG TAB.CHEW PO (08:11)
[2021-12-27] MEDS: Iron Polysaccharide Complex 150 MG CAPSULE PO (08:11)
--- NOTE | 2021-12-27 10:59 | CASEMGMT ---
Social Work BIMS and PHQ-9 completed for MDS assessment Natalie Fry [employer]CTION MANAGER
[2021-12-27 12:00] VITALS: PULSE 97; O2SAT 97
[2021-12-27 12:10] VITALS: BP 127/77; PULSE 97; RESP 18; TEMP 36.2
--- NOTE | 2021-12-27 13:05 | NURSING ---
Pt returned from appt with Dr. Laura. Per Dr. Laura wants to do Total Hip replacement on left side and do biopsy at that time. Dr. Laura will talk to Dr. Sanchez and Dr. Fisher and set up surgery date. If we don't hear from Dr. Laura's in a week call office.
== END 2021-12-27 12:20 | disposition home health service (06) | DRG 561 ==
PROVIDERS: Admitting Provider Family Medicine Geriatric Medicine; PCP Family Medicine Geriatric Medicine; Visit Provider Family Medicine Geriatric Medicine
DX: Z47.1 Aftercare following joint replacement surgery (principal); D50.9 Iron deficiency anemia, unspecified; I25.10 Atherosclerotic heart disease of native coronary artery without angina pectoris; E78.5 Hyperlipidemia, unspecified; G62.9 Polyneuropathy, unspecified; K21.9 Gastro-esophageal reflux disease without esophagitis; M19.90 Unspecified osteoarthritis, unspecified site; I10 Essential (primary) hypertension; E03.9 Hypothyroidism, unspecified; E55.9 Vitamin D deficiency, unspecified; Z87.891 Personal history of nicotine dependence; Z96.642 Presence of left artificial hip joint; E66.9 Obesity, unspecified; Z68.38 Body mass index [BMI] 38.0-38.9, adult; Z79.899 Other long term (current) drug therapy; Z79.890 Hormone replacement therapy; Z79.82 Long term (current) use of aspirin; Z79.02 Long term (current) use of antithrombotics/antiplatelets
CPT/HCPCS: 36415; 80048; 85025; 87426; 87811; 97110; 97112; 97162; 97166; 97530; 97535; 97802

== ENCOUNTER → 2022-02-13 | Outpatient (CLI) | payer MEDICARE, OTHER, SELFPAY ==
[2022-02-13 16:05] LABS: Absolute Lymphocyte Count 1.64 X10^3/uL (0.83-4.51); Basophil# 0.06 X10^3/uL; Basophil% 0.5 % (0-1); Eosinophil# 0.21 X10^3/uL; Eosinophils% 1.7 % (0-5); Hematocrit 35.3 % (37-47); Hemoglobin 10.6 g/dL (12.0-15.0); Lymphocyte # 1.64 X10^3/ul (0.83-4.51); Lymphocyte % 13.2 % (19-41); Mean Corpuscular Hgb 29.1 pg (27.0-32.0); Monocyte# 1.44 X10^3/uL; Monocyte% 11.6 % (0-10); NRBC Flagged by Analyzer 0 % (0-5); Neutrophil # 8.95 X10^3/uL (2.7-7.7); Neutrophil % 72.1 % (47-70); POSITIVE MORPHOLOGY YES; Platelet Count 412 K/mm3 (150-450); RBC Distribution Width CV 19.5 % (11.6-14.6); RBC Distribution Width SD 66.6 fl (35.1-43.9); Red Blood Count 3.64 M/mm3 (4.2-5.4); White Blood Count 12.4 K/mm3 (4.4-11.0)
[2022-02-13 16:17] LABS: Differential Indicated SCAN CRITERIA MET
[2022-02-13 17:11] LABS: Anisocytosis 1+; Differential Comment SCANNED
== END | disposition home or self-care (01) ==
LOC: LAB 15:53
PROVIDERS: PCP Family Medicine Geriatric Medicine; Visit Provider Specialist
DX: M16.12 Unilateral primary osteoarthritis, left hip (principal); Z96.642 Presence of left artificial hip joint
CPT/HCPCS: 36415; 85025

== ENCOUNTER → 2022-02-15 | Outpatient (CLI) | payer MEDICARE, OTHER, SELFPAY ==
--- NOTE | 2022-02-15 11:12 | CT_ITS ---
STUDY: CT ABDOMEN AND PELVIS WITHOUT CONTRAST REASON FOR EXAM: Female, 71 years old. KIDNEY STONES. Left-sided abdominal pain. RADIATION DOSAGE (If Supplied By Facility): CTDIvol = ( 26.71 ) mGy, DLP = ( 1277.82 ) mGycm TECHNIQUE: Transaxial images were obtained from the dome of the diaphragm to the symphysis pubis without oral contrast, and without intravenous contrast. Sagittal and coronal images were reconstructed. Individualized dose optimization techniques were used for this CT. COMPARISON: Comparison is made with prior study dated 09/13/2021. FINDINGS: The visualized lung bases are unremarkable. Prior aortic valve replacement. Coronary artery calcification. Normal liver. Normal gallbladder and extrahepatic biliary system. Normal spleen. Normal pancreas. Normal bilateral adrenal glands. Normal right kidney. Normal left kidney. There is a small hiatal hernia. Normal small intestine. Prior anastomosis at the level of the sigmoid colon. The appendix is visualized and appears normal. There is diffuse atherosclerotic calcification of the abdominal aorta and its major visceral branches, without a demonstrated aneurysm. Normal inferior vena cava. Normal retroperitoneum. Normal urinary bladder. There is absence of the uterus consistent with a prior hysterectomy. Stable moderate-sized hiatal hernia in the lower anterior pelvic wall containing nondilated bowel loops. 7.4 cm x 2 cm fluid collection in the deep subcutaneous tissues overlying the left sacrum and left lower lumbar spine. Overlying skin thickening. There are mild degenerative changes of the visualized lumbar spine. Prior left total hip replacement. CT/Abdomen/Pelvis without Cont IMPRESSION: No evidence of ureteral obstruction. Stable anterior lower abdominal pelvic hernia. Fluid collection overlying the left lower lumbar spine and left sacrum. Electronically Signed: Fidel Rojas MD at 12:15 EDT ,
== END | disposition home or self-care (01) ==
PROVIDERS: PCP Family Medicine Geriatric Medicine; Referring Provider Family Medicine Geriatric Medicine; Visit Provider Family Medicine Geriatric Medicine
DX: N20.0 Calculus of kidney (principal); N39.0 Urinary tract infection, site not specified
CPT/HCPCS: 74176; 87077; 87086; 87088; 87186

== ENCOUNTER 2022-03-01 12:31 | Inpatient (IN) | payer MEDICARE, OTHER, SELFPAY ==
--- NOTE | 2022-01-31 20:59 | PCM.HP.BLA ---
History and Physical History and Physical [facility] Patient Name: Jeanne Chavez : 1950 From:? EMERSON ARMSTRONG PA-C? DATE OF SURGERY:? 02/15/2022 SCHEDULED PROCEDURE:? right total hip arthroplasty HISTORY OF PRESENT ILLNESS: Preoperative history and physical exam was performed on January 30, 2022.? This is a 71-year-old female who has had ongoing pain in bilateral hips for over 10 years.? She was initially to undergo total hip arthroplasty over 1 year ago but canceled due to heart condition.? She was also treated for chronic urinary tract infections by local urologist.? She was able to undergo total hip arthroplasty.? She underwent a left total hip arthroplasty by Dr. Ger Johnson on December 07, 2021.? She is doing well from that procedure.? She continues to complain of right hip pain.? Her pain can reach as high as an 8/10 with activities on the right hip.? She has increased pain going up and down stairs, walking, driving, standing.? She uses a Rollator walker secondary to the right hip.? Her pain has been intermittent, aching, sharp, stabbing.? There is been no previous surgery on the right hip.? She has tried conservative measures consisting of physical therapy and [id number] medications without relief in symptoms.? After failing conservative measures and discussing treatment options were Dr. Ger Johnson, the patient does wish to proceed with a right total hip arthroplasty.? Patient has obtained previous surgical clearance from the manager workers compensation Dr. Cortes and Dr. Henderson.? Patient does have a history of transcatheter aortic valve replacement and stent placement.? Perioperative management with stopping of the Plavix 70 to surgery.? She will continue with the aspirin.? Patient has medical history pertinent for thyroid disease, chronic urinary tract infections, hypertension, coronary artery disease.? She denies any previous history of DVT or pulmonary embolism. REVIEW OF SYSTEMS: Review Of Systems: Constitutional: Denies change in appetite, fever and weight change. Cardiovasular: Denies chest pain, heart murmur and irregular heartbeat. Respiratory: Denies cough, pneumonia, shortness of breath, tuberculosis and wheezing. Gastrointestinal: Denies constipation, diarrhea, heartburn, nausea, rectal itching, bloody stools and vomiting. Genitourinary: Denies incontinence. Musculoskeletal: Denies leg swelling, pain, trouble walking and weakness. Skin: Denies Raynaud's, history of shingles and tattoo. Neurological: Denies ambulatory dysfunction, dizziness, numbness/tingling and tremor. Psychiatric: Denies anxiety, insomnia and stress. Hematologic/Lymphatic: Denies anemia, bleeding/bruising tendency and past transfusion. Reviewed, no changes. PAST MEDICAL HISTORY: Advance Care Plan: Other Directive, POA Effective Date: 03/15/2020 Other Directive, LIVING WILL Effective Date: 03/15/2020 Other Directive, DNR Effective Date: 03/15/2020 Past Medical History: Medical Problems: Arthritis, Depression, Kidney Stones, Thyroid Disease, UTI Covid- 19 - VACCINATED + TWO BOOSTERS High Blood Pressure Accidents: None Surgical Hx: Colon Resection - (2017) [facility] DR. ARREOLA Hysterectomy - (2003) @[facility] DR. MAN Tonsillectomy - [place] DR. COLLINS Heart Valve Replacement - TAVR VALVE 2020 [facility]? Left Total Hip Replacement - (12/07/2021) [facility] @ [facility] Anesthesia Complications: None Assistive Devices: Cane, Walker Reviewed, no changes. SOCIAL HISTORY: Social History: Marital: .Occupation: Retired.Work Status: Retired.Hand Dominance: Right-handed. Personal Habits:? Cigarette Use: Former.Smokeless Tobacco: Never Used Smokeless Tobacco.E-Cigarette Use: Never used.Alcohol: Occasionally.Drug Use: Denies Use.Enjoy Exercising: Never Exercises. Reviewed, no changes. VITALS: Ht: 64 Wt: 216lb Wt k.978 BMI: 37.1 BP: 132/82 Pulse: 78 Resp: 18 T: 97.9 T: 36.6C Pain Level: 5 O2SatR: 97 ALLERGIES: Skelaxin Honey Bee Venom? MEDICATIONS: Acetaminophen 500 mg Do not take more than 3000 mg Tylenol in a 24-hour period., CVS D3 25 mcg (1000 Ut) daily, Psyllium 400 mg daily, Docusate Sodium 100 mg AT bedtime, Ascorbic Acid CR 500 mg twice A day, Polysaccharide Iron Complex 150 mg daily with meals, Potassium Chloride Christina ER 20 Meq daily, Polyethylene Glycol 3350 17 GM/Scoop as needed, Omeprazole 40 mg 1 by mouth every day, Levothyroxine Sodium 25 mcg 1 by mouth every day, Aspirin 81 Low Dose 81 mg 81mg 1 A day, Green Tea Extract? 1 A day, QC Tumeric Complex 500 mg 1 A day, Acidophilus? 8 billion 2 A day, Stool Softener? 1x3 A day, Diclofenac 35 mg 1po, Sucralfate 1 gm 1po qday, Vitamin D3 Complete? 1po qday, Rosuvastatin Calcium 5 mg 1 by mouth every day, Clopidogrel Bisulfate 75 mg 1 by mouth every day, Gabapentin 600 mg 1 by mouth three times a day, Linzess 72 mcg 1 by mouth every day, Ferrous Sulfate 325 (65 Fe) MG take 1 tablet by mouth twice a day, Baclofen 10 mg 3 PO nightly PRE-OP EXAM:? General appearance:NORMAL? ? ? Other: Eyes: Conjunctivae and lids: NORMAL? Pupils: ERR Ears, Nose, Mouth, and Throat: NORMAL? Other: Inspection of lips, teeth and gums: NORMAL? ?Other: Neck: Examination of neck: no masses noted. Respiratory: Assessment of respiratory effort: NORMAL? ?Other: ?Auscultation of lungs: clear to auscultation no wheezes, rhonchi or rales. Cardiovascular:? Auscultation of heart: regular rate and rhythm, positive systolic murmur, no gallops or rubs. PHYSICAL EXAMINATION: Patient does walk with use of a Rollator walker.? She walks with a slightly antalgic gait secondary to the right hip.? Right hip has tenderness to palpation over the lateral hip and she complains of right groin pain.? Range of motion 70 flexion, internal rotation to neutral.? External rotation 10.? Sensation intact to light touch.? Neurovascularly intact.? Previous left hip incision well-healed without erythema or signs of infection. IMAGING STUDIES: Previous x-rays of the right hip reveal severe osteoarthritis with bony erosions of the femoral head and acetabulum with large osteophytes, subchondral sclerosis and complete loss of joint space. IMPRESSION: 1.? Severe right hip osteoarthritis 2.? Presence of left total hip arthroplasty: December 07, 2021 3.? Hypertension 4.? Chronic urinary tract infections 5.? Thyroid disease 6.? Depression 7.? History of kidney stones 8.? History of previous heart valve replacement and stent placement PLAN: Dr. Ger Johnson did discuss and review with the patient all treatment options including surgical versus nonsurgical options.? Patient does wish to proceed with the above-stated procedure.? Potential risks, benefits, and complications of the procedure were discussed in detail including but not limited to , infection, nerve and blood vessel damage, persistent pain, numbness, tingling, paresthesias, blood clot, pulmonary embolism, and requirement for possible further surgery.? The patient expressed full understanding and has no further questions for the doctor.? Patient does agree to proceed with the above-stated procedure and has signed the surgery consent form. We discussed the current risks associated with COVID 19.? This does include the risk of exposure while in the hospital.? Patient was reassured local hospitals have low infection rates and are taking all necessary precautions to avoid exposure to patients.? In addition, we discussed strategies that can be used to help limit exposure including those that limit the patient's time in the hospital.? Also using strategies to limit the patient's need for continued inpatient services after being discharged from the hospital.? Patient was notified that we will need to comply with any screening or testing the hospital wishes to perform or that surgery may be delayed for any positive results. This dictation was created using voice recognition software. Phonetic and/or grammatical errors may exist. ___? I have re-examined the patient.? There are no clinical changes since date of exam. ___? See progress notes for changes. ___? Dictated on admission Date: ? ? ?Time: Signature:
[2022-02-07 17:05] LABS: Absolute Lymphocyte Count 1.53 X10^3/uL (0.83-4.51); Absolute Neutrophil Count 6.3 X10^3/uL (2.0-7.7); Basophil# 0.05 X10^3/uL; Basophil% 0.6 % (0-1); Eosinophil# 0.15 X10^3/uL; Eosinophils% 1.7 % (0-5); Hematocrit 32.8 % (37-47); Hemoglobin 9.9 g/dL (12.0-15.0); Lymphocyte # 1.53 X10^3/ul (0.83-4.51); Lymphocyte % 16.8 % (19-41); Mean Corp Hgb Conc 30.2 g/dL (32-36); Mean Corpuscular Hgb 28.3 pg (27.0-32.0); Mean Corpuscular Volume 93.7 fL (81-99); Mean Platelet Vol. 9.3 fl (6.2-12.0); NRBC Flagged by Analyzer 0.2 % (0-5); Neutrophil # 6.29 X10^3/uL (2.7-7.7); Neutrophil % 69.1 % (47-70); Platelet Count 333 K/mm3 (150-450); RBC Distribution Width CV 17.7 % (11.6-14.6); RBC Distribution Width SD 59.9 fl (35.1-43.9); White Blood Count 9.1 K/mm3 (4.4-11.0)
[2022-02-07 17:44] LABS: Vitamin D,25 Hydroxy 29.1 ng/mL
[2022-02-07 17:53] LABS: Albumin, Serum 3.6 g/dL (3.2-5.0); Anion Gap 7 (5-15); BUN 15 mg/dL (7-18); BUN/Creat Ratio 24.6 RATIO (10-20); Chloride 110 mmol/L (98-107); Creatinine, Serum 0.61 mg/dL (0.55-1.02); EST Glomerular Filtration Rate 103 mL/min (>60); Est Glom Filt Rate - Afr Amer 125 mL/min (>60); Glucose 82 mg/dL (74-106); Magnesium 2.1 mg/dL (1.6-2.6); Potassium 4.2 mmol/L (3.5-5.1); Sodium Level 142 mmol/L (136-145)
[2022-02-08 08:12] LABS: ALB/GLOB Ratio 1.1 RATIO (0.9-2.4); AST(SGOT) 19 U/L (15-37); Alanine Aminotransfer ALT/SGPT 20 U/L (13-56); Alkaline Phosphatase 59 U/L (45-117); Globulin 3.3 g/dL (2.2-4.2); Protein, Total 6.9 g/dL (6.4-8.2)
[2022-02-15 08:20] VITALS: BP 131/78; PULSE 79; RESP 17; TEMP 36.1; O2SAT 94; BMI 36.3
[2022-02-15 08:37] LABS: Mucous, Urine 0 SEEN /hpf (<or=2+)
[2022-02-15 08:41] LABS: Color, Urine Amber (Yellow); Glucose, Dipstick Normal (Normal); Ketone-Dipstick 5 mg/dl (Negative); Leukocyte Esterase-Dipstick 500 /ul (Negative); Nitrite-Dipstick Positive (Negative); Occult Blood-Urine 250 /ul (Negative); Protein-Dipstick 100 mg/dl (Negative); Urine Bilirubin Dipstick Negative (Negative); Urine Clarity Cloudy (Clear); Urine Urobilinogen Normal (Normal)
[2022-02-15 08:51] LABS: Bedside Glucose 106 mg/dL (74-106)
[2022-02-15 08:59] LABS: Bacteria 1+ /hpf (None Seen); Red Blood Cells-Urine 25-50 SEEN /hpf (0-5); Squamous Epithelial Cells - UA 0-5 SEEN /hpf (5-10); White Blood Cells 25-50 SEEN /hpf (0-5)
--- NOTE | 2022-02-15 09:43 | SUR.PREOP ---
pt with postive for uti results- dr damon aware and has canceled surgery for today. dr damon talked with pt and pt aware of plan. registration aware.
--- NOTE | 2022-02-20 15:12 | CASEMGMT ---
MELODY GOMEZ Assessment: TC to pt for initial transition planning/care coordination assessment. RN PATRICIA introduced self and role at [facility], pt voices understanding and consents to assessment. Care providers, pharmacy, and demographics verified/updated. Admitting Dx: R total hip anterior approach PCP:Daniel Specialists:Elizabeth, senait; Dean, uro; Beatriz, cardio Preferred Pharmacy: [facility] Insurance: [facility], A[employer] Prescription Benefit: yes LW/HPOA: Pt has a LW/DPOA on file at [facility] and her DPOA is her brother Jaspal Durant. LNOK: Jaspal Durant, brother Living Arrangements: Pt lives alone in a single story house with 2 steps to enter with a grab bar. Pt reports she is I in ADL's and denies concerns at home. Transportation: Pt drives self and denies concerns with transportation. Pt uses [facility] transportation also. DME/HHC/SNF: Pt has reachers in every room, canes, rollator and a high rise toilet in the home. Pt has had [facility] in the past and been to [facility], a SNF in [place], [place] and [facility] TCU. Pt states that she has discussed with her PCP about going to [facility] TCU post surgery. She states is also aware of this. She does not have any therapy set up otherwise. Updated SW on this. Pt states no further concerns/needs. CM to follow. Advised pt to ask CM if any further question/concerns/needs arise, voices understanding. Pt Goal: [facility] TCU Plan: [facility] TCU pending acceptance and therapy evals.
[2022-03-01] VITALS (13 sets, daily range): BP systolic 104–157; BP diastolic 43–83; PULSE 68–95; RESP 16–18; TEMP 36.6–37.2; O2SAT 92–100; BMI 37.8
--- NOTE | 2022-03-01 07:10 | OP.PCM_ITS ---
Report of Operation Date of Procedure: 03/01/22 Pre-Operative Diagnosis: Right hip primary osteoarthritis Post-Operative Diagnosis: Right hip primary osteoarthritis Surgery/Procedure Performed:: Right minimally invasive direct anterior total hip replacement Description of Surgical Findings:: Stable hip with equal leg length Surgeon: Ger Johnson lab support technician: West Jacobsen Type of Anesthesia: General Anesthesiologist: Bro Ennis Special Medications: 2 g Ancef, 1 g TXA at incision, 1 g TXA closure, 10 mg Decadron, joint cocktail (5 mg Duramorph, 30 mL of 0.5% Ropivicaine, 1000 units of epinephrine, 30 mg of Toradol) Specimen's removed: Bony cuts Estimated Blood Loss (mL): 250 Fluids Replaced: 800 Description of Procedure: Components used: 1. Insignia Campbell femoral stem size 4 high offset 2. Campbell trident 2 acetabular shell size 52 mm 3. Campbell X3 polyethylene E 4. Campbell Biolox delta 36 mm, -2.5 mm femoral head Brief history operative indications: 71yo female who failed conservative measures for their hip osteoarthritis. X- rays were consistent with osteoarthritis including joint space narrowing, osteophyte formation and subchondral cysts. Total hip replacement was discussed with the patient with risks and benefits including but not limited to blood loss, DVTs, PEs, neurovascular damage, dislocation, general risks of anesthesia including loss of life. Patient demonstrated an understanding medical clearance is obtained the patient was consented for surgery. Procedure: On the date of procedure the patient's right hip was marked in the preoperative area. Patient was then taken back to the operating room where anesthesia assumed control of the C-spine and airway and administered anesthetic. Patient was transferred to the operating table and placed in the supine position. The hips were placed at the break of the bed and a sacral bump was placed. The right lower extremity was then prepped out in a sterile fashion using chlorhexidine while the surgeon scrubbed. The PA was vital in the positioning of the patient. Upon reentering the room the right lower extremity was draped in the standard orthopedic fashion and the incision was marked. A timeout was called and everyone agreed upon the side, the site, the procedure be performed, antibody given, and patient's identity. At this time incision was made through skin, subcutaneous tissue, and fat down to fascia. The fascia was then incised and the TFL was retracted laterally. A retractor was placed on the lateral border of the femoral neck. Attention was directed to the inferior portion of the approach and all crossing vessels were identified and appropriately coagulated. A retractor was then placed on the medial portion of the femoral neck. The anterior capsule was then cleared of all soft tissue and then H shaped capsulotomy was made. The retractors were then placed inside the capsule. The femoral neck was identified and a cleanup cut was made. At this time a power corkscrew was used to remove the femoral head. Attention was then turned toward the acetabulum where the soft tissues were appropriately retracted and the acetabulum was sequentially reamed to 52 mm. A 52 mm cup was then selected and impacted into place. Acetabular liner was impacted into place and locking mechanism was verified. The position of the acetabular cup was then verified under live fluoroscopy. Attention was then turned to the femur. Soft tissue releases on the medial and lateral femoral neck were appropriately done, the leg was externally rotated and lateralized. A Garcia retractor was placed medially and proximally to the greater trochanter this allowed appropriate visualization and exposure of the femoral canal. Rongeour was then used to remove excess lateral bone. A canal finder and entry broach were used to open the proximal canal. Once we verified we were down the femoral canal we subsequently broached up to a size 4 femur. The appropriate neck was placed in the previously selected head was trialed with a -2.5 mm neck. Traction was pulled and the hip was reduced with internal rotation. Once it was appropriately reduced and stability was checked. There was minimal shuck, equal leg lengths and appropriate stability with hyperextension and external rotation as well as with 90? flexion and internal rotation. Fluoroscopy was then also used to verify the position of the components and leg lengths using the contralateral side for comparison. The trial components were then dislocated the proximal femur was again exposed and the components were removed from the wound. The final components were verified and opened. The wound was copiously irrigated out with normal saline. The acetabulum was checked for any residual debris. The final components were placed and impacted. Traction and internal rotation were again used to reduce the hip. After adequate reduction the hip remained stable with appropriate leg lengths. The final components were once again checked with live fluoroscopy and were found to be satisfactory. The wound was then copiously irrigated with normal saline once more, and hemostasis was obtained. Closure was then done using #1 Vicryl runner to close the fascia. A 2-0 vicryl interuppted sutures were used to close the subcutaneous skin. 3-0 nylon interrupted mattress sutures were used for final skin closure. A Prevena wound VAC dressing was placed. Patient was awakened by anesthesia and transferred to the [facility]. Patient was then transferred to the PACU for recovery. During the course of the procedure the physician resident care technician (PE) played a vital role. Their intimate knowledge of my steps in the procedure aided in safe and expedient completion of the procedure. The PE played a vital rolls in positioning particularly in obtaining the appropriate positioning of the sacral bump. The PE was also vital in the retraction of soft tissues during the exposure and especially the femoral work as this is a vital part of the procedure to prevent complications and fractures. The PE was also vital and protecting soft tissues during times of bony cuts and reaming. He also played a vital role in closure with my direct supervision. The PE was also important during reduction and dislocation of the joint and trials intraoperatively. Postoperative plan: Patient will get 24 hours postop antibiotics. Patient will get in-house physical therapy and will be weight-bear as tolerated. Patient will follow up in office in 2 weeks for a wound check and x-rays. Aspirin 81 mg twice daily. Patient will be placed on doxycycline for 2 weeks postoperatively due to elevated BMI greater than 40 and high risk for infections postoperatively additionally patient has chronic urinary tract infections. Complications No intraoperative complications Admit VTE Documentation VTE Present on Admission: No VTE Mechan Device Prophylaxis: SCD's and Thigh High CHRISTOPHE Hose VTE Pharm Prophylaxis ordered?: Yes
[2022-03-01] MEDS: Lactated Ringers 1,000 ML 15 ML IV ×2 (08:00→08:06)
[2022-03-01] MEDS: Celecoxib 200 MG Capsule 400 MG PO (08:05)
[2022-03-01] MEDS: Acetaminophen 500 MG Tablet 1000 MG PO ×2 (08:05→18:07)
[2022-03-01] MEDS: Gabapentin 600 MG Tablet PO (08:06)
[2022-03-01 08:31] LABS: Bedside Glucose 92 mg/dL (74-106)
--- NOTE | 2022-03-01 09:00 | RAD_ITS ---
STUDY: INTRAOPERATIVE FLUOROSCOPY TECHNIQUE: The examination was performed with referring physician in attendance. Under fluoroscopic observation, fluoroscopic images were obtained. Radiologist was not present for the study. Radiologist did not perform the procedure. This dictation is for documentation of the radiation dosage only. There is no interpretation of the images. TOTAL NUMBER OF IMAGES: 1 COMPARISON: None RADIATION DOSE: 1.5 mGy FLUOROSCOPY TIME: 9.3 seconds REASON FOR EXAM: PAIN Female, 71 years old. FINDINGS: Total right hip arthroplasty. RAD/Hip 1 view with Pelvis IMPRESSION: Fluoroscopic assistance images were obtained. Dictation for documentation purposes only. Electronically Signed: Dawit Wilks MD at 16:55 EDT ,
--- NOTE | 2022-03-01 10:00 | FEM_PTH ---
PATIENT: CHARISSA GUNTER LOC: [facility]3 U#:[id number] AGE/SX: 71/F ROOM: [facility] RE03/02/[address]: Dr. Ger Johnson MD : 1950 BED: 1 DIS: 03/03/2022 SPEC #: [id number] RECD: 03/01/22 12:38 STATUS: EUSEBIO IVY #: [id number] KATY: 03/01/22 10:[address]: Ger Johnson DEPT: SURGICAL PATHOLOGY RECD BY: Jodi Virgen ENTERED: 03/02/22 08:22 SP TYPE: FEM HEAD OTHR DR: MD Dr. Ronn Morales MD Dr. Tai Chi Kwok, MD Tissues: Femoral region, NOS Procedures: Decalcification bone/plaque Surgery Specimen Level V HEADER OPERATION: ERAS, total hip direct anterior approach PRE-OP DIAGNOSIS: Severe right hip osteoarthritis TISSUE SUBMITTED: Right femoral head MICROSCOPIC DIAGNOSIS Right hip, total hip resection: Severe degenerative joint disease. AM:andrew 03/08/2022 MICROSCOPIC DESCRIPTION Slides are reviewed. GROSS DESCRIPTION Received is one container labeled with the patient's name and designated right femoral head. The specimen consists of a mohamud femoral head measuring 4.5 x 4.5 x 5 cm. Also present in the container are two pieces of detached bone consistent with portion of femoral neck measuring in aggregate 5 x 0.5 x 1 cm. The articular surface displays prominent osteophyte formation, eburnation and bone erosion. Also present in the specimen container are multiple irregular fragments of bone reamings measuring in aggregate 7 x 7 x 2 cm. Copy Writer sections are submitted in two cassettes after decalcification as follows: 1 ? femoral head, 2 - bone reamings. / SJ:andrew 03/02/2022 TC:5 CPT: 75393, 84234
[2022-03-01] MEDS: Cefazolin 2 GM in 0.9% Normal Saline 100 ML IV (10:38)
[2022-03-01] MEDS: TXA 1000mg in NS100 100ml (IVPB at Incision) 660 MG IV (10:54)
[2022-03-01] MEDS: dexAMETHasone 10 MG/ML Vial IV (11:17)
[2022-03-01] MEDS: TXA 1000mg in NS100 100ml (IVPB at Closure) 660 MG IV (11:53)
--- NOTE | 2022-03-01 13:10 | RAD_ITS ---
STUDY: X-RAY - PELVIS AND RIGHT HIP REASON FOR EXAM: Female, 71 years old. Post Op -- AP both hips on single pranav/lateral of op hip PACU TECHNIQUE: 3 views of the pelvis and hip. COMPARISON: None. FINDINGS: Intraoperative imaging provided for right total hip replacement. RAD/Hip Min 2 Views (Portable) IMPRESSION: Intraoperative imaging provided for right total hip replacement. Electronically Signed: Fidel Rojas MD at 14:24 EDT ,
[2022-03-01] MEDS: Lactated Ringers 1,000 ML 999 ML IV (13:40)
[2022-03-01] MEDS: Lactated Ringers 1,000 ML 125 ML IV ×2 (14:41→16:16)
--- NOTE | 2022-03-01 15:29 | PN.HOSP_ITS ---
Subjective Subjective Feels well post-operatively. Objective Data Objective Data Vital Signs: Vital Signs Temp Pulse Resp BP Pulse Ox O2 Del Method O2 Flow Rate 36.9 C 72 16 135/65 H 94 Nasal Cannula 4 03/01/22 14:30 03/01/22 14:30 03/01/22 14:30 03/01/22 14:30 03/01/22 14:30 03/01/22 14:30 03/01/22 14:30 Oxygen Flow Rate (L/min) 4 Oxygen Delivery Method Nasal Cannula Weight: 99.9 kg Body Mass Index (BMI) 37.8 Intake & Output: Intake and Output for Last 24 Hours 02/27/22 02/28/22 03/01/22 23:59 23:59 23:59 Intake Total 2432 / 2432 Output Total 375 / 375 Balance 2056 / 2056 Lab / Micro Data Result Diagrams: 02/07/22 14:19 02/07/22 14:19 Labs: Laboratory Results - last 24 hr 03/01/22 07:54: POC Glucose 92 Micro: Microbiology 02/07/22 14:19 Swab (Method) Nasal Screen MRSA/MSSA - Final Radiography Diagnostic Testing: Radiology Impression Hip X-Ray 03/01/22 13:10 IMPRESSION: Intraoperative imaging provided for right total hip replacement. Electronically Signed: Fidel Rojas MD at 14:24 EDT , Physical Exam Const alert and no apparent distress Constitutional Narrative: seen in PACU. Resp normal respiratory effort, no retractions, no use of accessory muscles and clear to auscultation bilaterally Cardio regular rate, regular rhythm, S1 normal heart sound and S2 normal heart sound GI normal to inspection, nondistended, normoactive bowel sounds, soft to palpation, non-tender and non-distended Neuro oriented x3 Assessment & Plan Assessment/Plan (1) S/P hip replacement: PLAN: mgmt per orthopaedics PLAN: Plan Chronic conditions: * CAD: s/p PCI. previously cleared by cardiology. Takes clopidogrel at home. Resume when ok by orthopaedics. * hypothyroidism: continue levothyroxine * chronic UTI: continue methenamine. check urine studies if becomes symptomatic * h/o TAVR: stable. VTE prophylaxis: on BID ASA per orthopaedics Thank you for the consult. The hospital service will follow along peripherally Charges/Coding Visit Charges Inpatient E&M: 22241 Subs Hosp L2
[2022-03-01] MEDS: Famotidine 20 MG Tablet PO (16:38)
[2022-03-01] MEDS: Aspirin 81 MG TAB.CHEW PO (18:07)
[2022-03-01] MEDS: Ensure Surgery 237 ML LIQUID PO (18:07)
[2022-03-01] MEDS: Cefazolin 1 GM/50 ML BAG IV (18:10)
[2022-03-01] MEDS: Ketorolac 15 MG/ML Vial IV (18:10)
[2022-03-01] MEDS: Senna/Docusate Sodium 1 Tablet 2 TABLET PO (22:39)
[2022-03-02] VITALS (10 sets, daily range): BP systolic 105–144; BP diastolic 33–72; PULSE 76–96; RESP 16–18; TEMP 36.5–37.6; O2SAT 94–98
[2022-03-02] MEDS: Acetaminophen 500 MG Tablet 1000 MG PO ×4 (00:47→21:14)
[2022-03-02] MEDS: Cefazolin 1 GM/50 ML BAG IV (02:14)
[2022-03-02 06:45] LABS: Hematocrit 27.6 % (37-47); Hemoglobin 8.3 g/dL (12.0-15.0); Mean Corp Hgb Conc 30.1 g/dL (32-36); Mean Corpuscular Hgb 28.7 pg (27.0-32.0); Mean Corpuscular Volume 95.5 fL (81-99); Mean Platelet Vol. 9.8 fl (6.2-12.0); Platelet Count 312 K/mm3 (150-450); RBC Distribution Width CV 16.7 % (11.6-14.6); RBC Distribution Width SD 58.4 fl (35.1-43.9); Red Blood Count 2.89 M/mm3 (4.2-5.4); White Blood Count 11.4 K/mm3 (4.4-11.0)
[2022-03-02 07:06] LABS: Anion Gap 7 (5-15); BUN 15 mg/dL (7-18); BUN/Creat Ratio 24.6 RATIO (10-20); Calcium,Total 8.3 mg/dL (8.5-10.1); Chloride 109 mmol/L (98-107); Creatinine, Serum 0.61 mg/dL (0.55-1.02); EST Glomerular Filtration Rate 103 mL/min (>60); Est Glom Filt Rate - Afr Amer 125 mL/min (>60); Glucose 101 mg/dL (74-106); Potassium 3.8 mmol/L (3.5-5.1); Sodium Level 142 mmol/L (136-145)
--- NOTE | 2022-03-02 09:54 | CASEMGMT ---
Social Work SW received referral from RNCM that pt is requesting to go to TCU upon discharge. SW met with pt and introduced self and role of SW. Pt states she lives at home alone and does not feel she did very will with therapy yesterday. A list of SNF providers including quality and resource use data and consistent with the patient?s preferred geographic region, medical needs, and insurance network were provided from the [employer] Guide. Pts preferred provider is [facility]. Referral made to [facility] in TCU who confirms pt can be accepted when medically ready. Pt updated that TCU can accept. senait Dodson updated and states pt will not be medically ready today. [facility] in [facility]CU notified. Plan: TCU, when medically ready. RUSSELL Dinero
[2022-03-02] MEDS: Senna/Docusate Sodium 1 Tablet 2 TABLET PO ×2 (10:48→21:14)
[2022-03-02] MEDS: Famotidine 20 MG Tablet PO (10:48)
[2022-03-02] MEDS: Ensure Surgery 237 ML LIQUID PO ×2 (10:48→17:26)
[2022-03-02] MEDS: Doxycycline 100 MG CAPSULE PO ×2 (10:49→21:14)
[2022-03-02] MEDS: Aspirin 81 MG TAB.CHEW PO ×2 (10:49→17:26)
[2022-03-02] MEDS: 0.9% Saline Lock 10 ML Syringe IV (11:01)
--- NOTE | 2022-03-02 11:10 | PN.ORTHO_ITS ---
Subjective Subjective The patient was sitting in bed upon examination. Patient denies any chest pain, shortness of breath, lightheadedness, nausea or vomiting, or calf pain. Patient does complain of some dizziness. She has had some lower blood pressure on vitals. Currently afebrile. Patient does report pain in the right hip especia lly when up walking. She does have Grewal catheter in place. She has chronic history of UTIs. Patient has not been in physical therapy at this point. She does have an incisional wound VAC in place. There is no drainage in the canister or tubing. Case was discussed with case management and she does have clearance to go to the transitional care unit. There is concern upon discharge for safety of patient at home as she has fall risk. Patient also underwent a previous left total hip arthroplasty on December 07, 2021 which did require 3-day stay in the hospital with ultimate discharge to transitional care unit at [facility]. At that time she did require transfusion of 2 units of packed red blood cells as she did become symptomatic. Patient currently does take ferrous sulfate and folic acid as home medication. Objective Data Objective Data Vital Signs: Vital Signs Temp Pulse Resp BP Pulse Ox O2 Del Method O2 Flow Rate 97.7 F L 77 18 113/44 L 97 Room Air 4 03/02/22 07:44 03/02/22 07:44 03/02/22 07:44 03/02/22 07:44 03/02/22 07:44 03/02/22 07:44 03/02/22 06:17 Oxygen Flow Rate (L/min) 4 Oxygen Delivery Method Room Air Weight: 99.9 kg Body Mass Index (BMI) 37.8 Intake & Output: Intake and Output for Last 24 Hours 02/28/22 03/01/22 03/02/22 23:59 23:59 23:59 Intake Total 4014.5 / 4014.5 1110.75 / 1110.75 Output Total 375 / 1225 1950 / 1950 Balance 3639.5 / 2789.5 -839.25 / -839.25 Lab / Micro Data Result Diagrams: 03/02/22 05:23 03/02/22 05:23 Labs: Laboratory Results - last 24 hr 03/02/22 05:23: WBC 11.4 H, RBC 2.89 L, Hgb 8.3 L, Hct 27.6 L, MCV 95.5, MCH 28.7, MCHC 30.1 L, RDW Std Deviation 58.4 H, RDW Coeff of Yevgeniy 16.7 H, Plt Count 312, MPV 9.8 03/02/22 05:23: Sodium 142, Potassium 3.8, Chloride 109 H, Carbon Dioxide 26.0, Anion Gap 7, BUN 15, Creatinine 0.61, Estim Creat Clear Calc 45.20, Est GFR (MDRD) Af Amer 125, Est GFR (MDRD) Non-Af 103, BUN/Creatinine Ratio 24.6 H, Glucose 101, Calcium 8.3 L Micro: Microbiology 02/07/22 14:19 Swab (Method) Nasal Screen MRSA/MSSA - Final Radiography Diagnostic Testing: Radiology Impression Hip/Pelvis X-Ray 03/01/22 09:00 IMPRESSION: Fluoroscopic assistance images were obtained. Dictation for documentation purposes only. Electronically Signed: Dawit Wilks MD at 16:55 EDT , Hip X-Ray 03/01/22 13:10 IMPRESSION: Intraoperative imaging provided for right total hip replacement. Electronically Signed: Fidel Rojas MD at 14:24 EDT , Physical Exam Narrative Vital signs stable and afebrile. There has been some decrease blood pressure over past several readings. She has had some occasional dizziness. Patient is not able to wear CHRISTOPHE hose due to body habitus. SCDs are currently being used Patient is able to plantarflex and dorsiflex actively. Sensation is intact to light touch to saphenous, sural, superficial and deep peroneal, and tibial distribution. Incisional Prevena wound VAC in place with no drainage in canister or tubing. No appreciable skin irritation Negative Homans bilaterally, negative signs and symptoms of DVT. Const alert, oriented x3 and no apparent distress Assessment & Plan Assessment/Plan (1) Status post total hip replacement, right: PLAN: 1. S/P direct anterior right total hip arthroplasty POD #1 2. Continue Pain Medications: Tylenol and oxycodone 3. DVT Prophylaxis: Take 81 mg aspirin twice daily for 4 weeks postoperatively for DVT prophylaxis. 4. PT/OT: Weightbearing as tolerated with walker 5. H & H: 8.3/27.6, asymptomatic. Acute on chronic postoperative anemia secondary to acute blood loss from surgery without any intra operative complications. Patient currently takes ferrous sulfate and folic acid at home. At her other surgery on December 07, 2021 for the left total hip arthroplasty she did require 2 units packed red blood cell transfusion postoperatively. Case was discussed with medicine. We will repeat H&H today. Preoperatively patient was at 10.6/35.3 with hemoglobin/hematocrit on February 13, 2022 6. Continue postoperative medical management per medicine: Case was discussed with medicine. They have ordered repeat H&H today. Consideration of transfusion if hemoglobin continues to drop as patient has had some drop in blood pressure and does have some dizziness. 7. Continue incisional wound VAC: This will be in place for 5 days postoperatively. 8. Continue antibiotics: Antibiotics are currently being used due to morbid obesity and she will continue with doxycycline for 2 weeks postoperatively. With BMI greater than 40 there is increased risk for postoperative infection. 9. Encouraged Incentive Spirometry 10. Disposition: Due to patient's morbid obesity as well as concern for safety upon discharge I do feel it is appropriate for patient to be discharged to transitional care unit when medically appropriate. She has had previous history of transfusion at her previous total hip arthroplasty in December 2021. We are repeating hemoglobin later today I did give verbal order to remove the Grewal catheter today per Dr. Ger Johnson's recommendations. Patient will need to continue with the antibiotic postoperatively due to the morbid obesity. Patient will require physical therapy and I recommend she is getting up to bedside chair and not laying in bed all the time. Patient did voice understanding agreement. Appreciate physical therapy recommendations postoperatively. Plan is for discharge to transitional care unit once medically appropriate. I have reviewed the [place] Automated Rx Reporting System (OARRS) report for this patient for refill pattern and other prescriber involvement as part of the appropriate surveillance for the provision of acute and chronic controlled medications. The report was requested and reviewed on the date of this entry and was considered in the prescribing process. This dictation was created using voice recognition software. Phonetic and/or grammatical errors may exist.
[2022-03-02 12:02] LABS: Hematocrit 28.2 % (37-47); Hemoglobin 8.5 g/dL (12.0-15.0)
[2022-03-02] MEDS: Gabapentin 600 MG Tablet PO (19:49)
[2022-03-02] MEDS: Sucralfate 1 GM Tablet PO (21:13)
[2022-03-02] MEDS: Baclofen 10 MG Tablet 30 MG PO (21:13)
[2022-03-02] MEDS: Methenamine Hippurate 1 GM Tablet 2 GM PO (21:14)
[2022-03-03] VITALS: BP 120/76; PULSE 94; RESP 16; TEMP 37.1; O2SAT 95
[2022-03-03 02:00] VITALS: BP 152/68; PULSE 90; RESP 16; TEMP 37.2; O2SAT 95
[2022-03-03] MEDS: Acetaminophen 500 MG Tablet 1000 MG PO (05:11)
[2022-03-03] MEDS: Sucralfate 1 GM Tablet PO (05:11)
[2022-03-03] MEDS: Levothyroxine 25 MCG TABLET PO (05:11)
[2022-03-03 05:59] LABS: Absolute Lymphocyte Count 1.27 X10^3/uL (0.83-4.51); Absolute Neutrophil Count 7.2 X10^3/uL (2.0-7.7); Basophil# 0.04 X10^3/uL; Basophil% 0.4 % (0-1); Eosinophil# 0.07 X10^3/uL; Eosinophils% 0.7 % (0-5); Hematocrit 28.6 % (37-47); Hemoglobin 8.6 g/dL (12.0-15.0); Lymphocyte # 1.27 X10^3/ul (0.83-4.51); Lymphocyte % 12.8 % (19-41); Mean Corp Hgb Conc 30.1 g/dL (32-36); Mean Corpuscular Hgb 28.5 pg (27.0-32.0); Mean Corpuscular Volume 94.7 fL (81-99); Mean Platelet Vol. 9.3 fl (6.2-12.0); Monocyte# 1.36 X10^3/uL; Monocyte% 13.7 % (0-10); NRBC Flagged by Analyzer 0 % (0-5); Neutrophil # 7.15 X10^3/uL (2.7-7.7); Neutrophil % 71.8 % (47-70); Platelet Count 309 K/mm3 (150-450); RBC Distribution Width CV 16.9 % (11.6-14.6); RBC Distribution Width SD 59.1 fl (35.1-43.9); Red Blood Count 3.02 M/mm3 (4.2-5.4)
--- NOTE | 2022-03-03 06:47 | PCM.PN.ORT ---
Subjective Subjective The patient was sitting in bedside chair upon examination. Patient denies any chest pain, shortness of breath, dizziness, lightheadedness, nausea or vomiting, or calf pain. Pain is controlled on medications. No adverse overnight events. Patient states she refuses any narcotics. She does not want to take any of these for pain. She will only use Tylenol. Overall patient is doing well this morning. Her hemoglobin has been stable. She will continue with her anemia treatment with iron and folic acid. Plan is for patient to go to the transitional care unit. She is continuing with the incisional wound VAC which there is been no drainage in the canister or tubing. Objective Data Objective Data Vital Signs: Vital Signs Temp Pulse Resp BP Pulse Ox O2 Del Method O2 Flow Rate 99 F 90 16 152/68 H 95 Room Air 4 03/03/22 02:00 03/03/22 02:00 03/03/22 02:00 03/03/22 02:00 03/03/22 02:00 03/03/22 02:00 03/03/22 02:00 Oxygen Flow Rate (L/min) 4 Oxygen Delivery Method Room Air Weight: 99.9 kg Body Mass Index (BMI) 37.8 Intake & Output: Intake and Output for Last 24 Hours 03/01/22 03/02/22 03/03/22 23:59 23:59 23:59 Intake Total 4014.5 / 4014.5 1790.75 / 1790.75 Output Total 375 / 1225 2750 / 2750 Balance 3639.5 / 2789.5 -959.25 / -959.25 Lab / Micro Data Result Diagrams: 03/03/22 05:23 03/02/22 05:23 Labs: Laboratory Results - last 24 hr 03/02/22 05:23: Sodium 142, Potassium 3.8, Chloride 109 H, Carbon Dioxide 26.0, Anion Gap 7, BUN 15, Creatinine 0.61, Estim Creat Clear Calc 45.20, Est GFR (MDRD) Af Amer 125, Est GFR (MDRD) Non-Af 103, BUN/Creatinine Ratio 24.6 H, Glucose 101, Calcium 8.3 L 03/02/22 11:53: Hgb 8.5 L, Hct 28.2 L 03/03/22 05:23: WBC 10.0, RBC 3.02 L, Hgb 8.6 L, Hct 28.6 L, MCV 94.7, MCH 28.5, MCHC 30.1 L, RDW Std Deviation 59.1 H, RDW Coeff of Yevgeniy 16.9 H, Plt Count 309, MPV 9.3, Immature Gran % (Auto) 0.600, Neut % (Auto) 71.8 H, Lymph % (Auto) 12.8 L, [place] % (Auto) 13.7 H, Eos % (Auto) 0.7, Baso % (Auto) 0.4, Absolute Neuts (auto) 7.2, Absolute Lymphs (auto) 1.27, Nucleated RBC % 0 Micro: Microbiology 02/07/22 14:19 Swab (Method) Nasal Screen MRSA/MSSA - Final Physical Exam Narrative Vital signs stable and afebrile. Patient is not able to wear CHRISTOPHE hose due to body habitus. SCDs are currently being used Patient is able to plantarflex and dorsiflex actively. Sensation is intact to light touch to saphenous, sural, superficial and deep peroneal, and tibial distribution. Incisional Prevena wound VAC in place with no drainage in canister or tubing. No appreciable skin irritation Negative Homans bilaterally, negative signs and symptoms of DVT. Const alert, oriented x3 and no apparent distress Assessment & Plan Assessment/Plan (1) Status post total hip replacement, right: PLAN: 1. S/P direct anterior right total hip arthroplasty POD #2 2. Continue Pain Medications: Tylenol and oxycodone. Patient is refusing any narcotics. She only wants to take Tylenol and her gabapentin for pain. 3. DVT Prophylaxis: Take 81 mg aspirin twice daily for 4 weeks postoperatively for DVT prophylaxis. 4. PT/OT: Weightbearing as tolerated with walker 5. H & H: 8.6/28.6, asymptomatic. Acute on chronic postoperative anemia secondary to acute blood loss from surgery without any intra operative complications. Patient currently takes ferrous sulfate and folic acid at home. Patient has been trending upward from yesterday. Preoperatively patient was at 10.6/35.3 with hemoglobin/hematocrit on February 13, 2022 6. Continue postoperative medical management per medicine: 7. Continue incisional wound VAC: This will be in place for 5 days postoperatively. Plan will be to remove the incisional wound VAC on March 06, 2022. I also explained to the patient that once the incisional wound VAC is removed she must protect the medial portion of the incision from her skin pannus with ABD until the incision is well-healed at 6 weeks. She voiced understanding and agreement 8. Continue antibiotics: Antibiotics are currently being used due to morbid obesity and she will continue with doxycycline for 2 weeks postoperatively. With BMI greater than 40 there is increased risk for postoperative infection. 9. Encouraged Incentive Spirometry 10. Disposition: Plan will be for discharge to transitional care unit today. Prescriptions will be attached to chart. Patient will continue formal physical therapy while at the transitional care unit. Incisional wound VAC will be removed on March 06, 2022. Recommend repeat lab work in 3 days. Continue with ferrous sulfate and folic acid. Patient should follow-up with primary care physician once discharged from the hospital to continue to manage her anemia. She will follow-up per postop instructions. She has 2-week postoperative follow-up scheduled with [facility] [place]. Once the incisional wound VAC is removed patient can shower get the incision wet. Avoid submerging underwater for 6 weeks postoperatively. I have reviewed the [place] Automated Rx Reporting System (OARRS) report for this patient for refill pattern and other prescriber involvement as part of the appropriate surveillance for the provision of acute and chronic controlled medications. The report was requested and reviewed on the date of this entry and was considered in the prescribing process. This dictation was created using voice recognition software. Phonetic and/or grammatical errors may exist.
--- NOTE | 2022-03-03 07:01 | PCM.TXEXTCAR ---
Diet Diet Order/Speech Therapy: 03/01/22 16:44 Diet: Regular - General Is pt able to select menu?: Yes Routine Orders/Code Status Routine Lab Work: CBC (Repeat CBC on March 04, 2022 to follow anemia) Code Status: Full Code Wound(s) RIGHT HIP: Wound Type: Surgical Incision (Currently with Prevena incisional wound VAC. Remove on March 06, 2022. Use ABD dressing under the skin fold and medial incision until well-healed for 6 weeks postoperatively) Therapies Weight Bearing: Weight bearing as tolerated (With walker) Extremity Affected:: Right Lower Physical Therapy: Eval and Treat Occupational Therapy: Eval and Treat Problem/Diagnosis (1) Status post total hip replacement, right: Status: Acute Code(s): Z96.641 - Presence of right artificial hip joint Plan: 1. S/P direct anterior right total hip arthroplasty POD #2 2. Continue Pain Medications: Tylenol and oxycodone. Patient is refusing any narcotics. She only wants to take Tylenol and her gabapentin for pain. 3. DVT Prophylaxis: Take 81 mg aspirin twice daily for 4 weeks postoperatively for DVT prophylaxis. 4. PT/OT: Weightbearing as tolerated with walker 5. H & H: 8.6/28.6, asymptomatic. Acute on chronic postoperative anemia secondary to acute blood loss from surgery without any intra operative complications. Patient currently takes ferrous sulfate and folic acid at home. Patient has been trending upward from yesterday. Preoperatively patient was at 10.6/35.3 with hemoglobin/hematocrit on February 13, 2022 6. Continue postoperative medical management per medicine: 7. Continue incisional wound VAC: This will be in place for 5 days postoperatively. Plan will be to remove the incisional wound VAC on March 06, 2022. I also explained to the patient that once the incisional wound VAC is removed she must protect the medial portion of the incision from her skin pannus with ABD until the incision is well-healed at 6 weeks. She voiced understanding and agreement 8. Continue antibiotics: Antibiotics are currently being used due to morbid obesity and she will continue with doxycycline for 2 weeks postoperatively. With BMI greater than 40 there is increased risk for postoperative infection. 9. Encouraged Incentive Spirometry 10. Disposition: Plan will be for discharge to transitional care unit today. Prescriptions will be attached to chart. Patient will continue formal physical therapy while at the transitional care unit. Incisional wound VAC will be removed on March 06, 2022. Recommend repeat lab work in 3 days. Continue with ferrous sulfate and folic acid. Patient should follow-up with primary care physician once discharged from the hospital to continue to manage her anemia. She will follow-up per postop instructions. She has 2-week postoperative follow-up scheduled with [facility] [place]. Once the incisional wound VAC is removed patient can shower get the incision wet. Avoid submerging underwater for 6 weeks postoperatively. I have reviewed the [place] Automated Rx Reporting System (OARRS) report for this patient for refill pattern and other prescriber involvement as part of the appropriate surveillance for the provision of acute and chronic controlled medications. The report was requested and reviewed on the date of this entry and was considered in the prescribing process. This dictation was created using voice recognition software. Phonetic and/or grammatical errors may exist. Allergies/Procedures Done in Hospital Allergies bee venom protein (honey bee) Allergy (Verified 01/31/22 08:51) Angioedema metaxalone [From Skelaxin] Allergy (Verified 01/31/22 08:51) Swelling atorvastatin Adverse Reaction (Severe, Verified 01/31/22 08:51) SEVERE MYALGIAS Procedures: Wound Vac placement (Currently with Prevena incisional wound VAC. Remove on March 06, 2022. Use ABD dressing under the skin fold and medial incision until well-healed for 6 weeks postoperatively) and - (Right direct anterior total hip arthroplasty on March 01, 2022) Type of Care/Length of Stay Estimated LOS: Convalescent Care Less Than 30 days Type of Care Needed: Skilled Rehab Potential: Good Prognosis: Good Additional Orders/Day of Discharge Day of Discharge: 03/03/22 Discharge Plan Admission Admit Date/Time: 03/02/22 11:51 Attending Provider: Ger Johnson Primary Care Provider: Chema Sanchez [employer] Providers: Raúl Ross ; Ronn Louis Discharge Orders/Prescriptions Prescriptions: New acetaminophen 500 mg Tablet 1,000 mg PO Q8 14 Days Qty: 84 0RF Rx Instructions: Do not take more than 3000 mg Tylenol in a 24-hour period. doxycycline monohydrate 100 mg Capsule 100 mg PO BID 14 Days Qty: 0 0RF Rx Instructions: Take 2 weeks postoperatively ferrous sulfate [FeroSul] 325 mg (65 mg iron) Tablet 325 mg PO 1200,1700 14 Days Qty: 0 0RF aspirin 81 mg Tablet,Chewable 81 mg PO BIDCM 30 Days Qty: 60 0RF Rx Instructions: Take 81 mg aspirin twice daily for 4 weeks postoperatively for DVT prophylaxis. folic acid 1 mg Tablet 1 mg PO BREAKFAST 14 Days Qty: 0 0RF Continued gabapentin 600 mg tablet 600 mg PO TID levothyroxine 25 MCG tablet 25 mcg PO DAILY omeprazole 40 MG capsule,delayed release(DR/EC) 40 mg PO 1400 PRN (Reason: GERD) Lactobac acidoph-fructooligos 1 EACH tablet 1 each PO DAILY polyethylene glycol 3350 17 GM packet 17 g PO PRN PRN (Reason: Constipation) potassium chloride 20 MEQ tablet 40 meq PO DAILY Qty: 60 0RF docusate sodium 100 MG capsule 300 mg PO QHS ascorbic acid (vitamin C) 500 MG capsule 500 mg PO BID sucralfate [Carafate] 1 gram Tablet 1 g PO 4X/DAY methenamine hippurate [Hiprex] 1 gram Tablet 2 g PO BID cholecalciferol (vitamin D3) [Vitamin D3] 25 mcg (1,000 unit) Capsule 25 mcg PO DAILY psyllium husk [Daily Fiber] 0.4 gram Capsule 0.8 g PO BID rosuvastatin [Crestor] 5 mg tablet 5 mg PO .Q3DAY baclofen 10 mg tablet 30 mg PO QHS Label Comments: TAKE 3 TABLETS BY MOUTH DAILY FOR 7 DAYS omega-3 fatty acids Capsule 1,000 mg PO DAILY diclofenac sodium 50 mg tablet,delayed release (DR/EC) 50 mg PO BID Label Comments: TAKE 1 TABLET ORALLY TWICE PER DAY FOR 90 DAYS TAKE WITH FOOD Linzess 145 mcg Capsule 145 mcg PO PRN PRN (Reason: Constipation) acetaminophen 500 mg Tablet 1,000 mg PO Q6H PRN (Reason: Pain) clopidogrel 75 mg tablet 75 mg PO DAILY Label Comments: LAST DOSE 02/07/2022 Discontinued green tea leaf extract 150 MG capsule 150 mg PO DAILY Label Comments: STOP 5 DAYS PRIOR aspirin 81 mg tablet,chewable 81 mg PO DAILY polysaccharide iron complex 150 mg iron Capsule 150 mg PO BIDCM Qty: 60 0RF Referrals / Follow Up: Chema Sanchez Chi, MD [Primary Care Provider] - (Follow-up upon discharge from the transitional care unit for continued management of her anemia) West Jacobsen PA-C [Med Staff - Adv Practice Prof] - 03/16/22 3:30 pm Disposition Disposition (needs filled in before D/C Order can be placed): [facility]
[2022-03-03 08:31] VITALS: O2SAT 98
--- NOTE | 2022-03-03 08:51 | CASEMGMT ---
Addendum entered by Tracey Cheney 03/03/22 09:57: SW updated E[place] in TCU that pt will discharge today. RUSSELL Dinero Original Note: Social Work Per physician, pt is ready for discharge today. SW met with pt and informed and pt agreeble to d/c to TCU. Pt denies SW calling family stating she will notify them. Orders faxed to TCU and nursing updated that pt will need a covid test and can then d/c to TCU. Plan: TCU, skilled level of care RUSSELL Dinero
[2022-03-03] MEDS: Senna/Docusate Sodium 1 Tablet 2 TABLET PO (09:23)
[2022-03-03] MEDS: Cholecalciferol (VIT D3) 25 MCG TABLET (1,000 UNITS) PO (09:23)
[2022-03-03] MEDS: Clopidogrel Bisulfate 75 MG Tablet PO (09:23)
[2022-03-03] MEDS: Famotidine 20 MG Tablet PO (09:24)
[2022-03-03] MEDS: Potassium Chloride Oral Tablet 20 MEQ 40 MEQ PO (09:24)
[2022-03-03] MEDS: Doxycycline 100 MG CAPSULE PO (09:24)
[2022-03-03] MEDS: Methenamine Hippurate 1 GM Tablet 2 GM PO (09:24)
[2022-03-03] MEDS: Aspirin 81 MG TAB.CHEW PO (09:25)
[2022-03-03] MEDS: Folic Acid 1 MG Tablet PO (09:31)
[2022-03-03] MEDS: Gabapentin 600 MG Tablet PO (09:31)
[2022-03-03] MEDS: Ensure Surgery 237 ML LIQUID PO (09:31)
[2022-03-03] MEDS: Ascorbic Acid 500 MG Tablet PO (09:31)
[2022-03-03 10:21] VITALS: BP 134/80; PULSE 80; RESP 18; TEMP 36.9; O2SAT 94
== END 2022-03-03 10:57 | disposition skilled nursing facility (03) | DRG 470 ==
LOC: SDC 12:31 → MS3 12:31
PROVIDERS: Family Medicine; Physician Assistant Surgical; Admitting Provider Specialist; PCP Family Medicine Geriatric Medicine; Referring Provider Specialist; Visit Provider Specialist
PROC: (CPT 27284; principal; 2022-03-01 09:35)
DX: M16.11 Unilateral primary osteoarthritis, right hip (principal); D62 Acute posthemorrhagic anemia; E66.01 Morbid (severe) obesity due to excess calories; I10 Essential (primary) hypertension; I25.10 Atherosclerotic heart disease of native coronary artery without angina pectoris; E03.9 Hypothyroidism, unspecified; I35.0 Nonrheumatic aortic (valve) stenosis; F32.A Depression, unspecified; Z68.37 Body mass index [BMI] 37.0-37.9, adult; Z96.642 Presence of left artificial hip joint; Z95.2 Presence of prosthetic heart valve; Z95.5 Presence of coronary angioplasty implant and graft; Z79.02 Long term (current) use of antithrombotics/antiplatelets; Z79.82 Long term (current) use of aspirin; Z79.899 Other long term (current) drug therapy; Z87.440 Personal history of urinary (tract) infections; Z87.442 Personal history of urinary calculi; Z86.16 Personal history of COVID-19; Z87.891 Personal history of nicotine dependence
CPT/HCPCS: 36415; 73501; 73502; 76000; 80048; 80053; 81001; 82040; 82306; 82962; 83735; 84443; 85014; 85018; 85025; 85027; 87081; 87426; 88307; 88311; 97110; 97116; 97162; 97166; 97530; 97535; 99251; C1776; J7050; J7120; A4216; G0463; J3475

== ENCOUNTER 2022-03-03 11:11 | Inpatient (IN) | payer MEDICARE, OTHER, SELFPAY ==
[2022-03-03 11:16] VITALS: BP 144/69; PULSE 74; O2SAT 94; BMI 37.2
[2022-03-03] MEDS: Ferrous Sulfate 325 MG Tablet PO ×2 (12:09→17:36)
[2022-03-03] MEDS: Gabapentin 600 MG Tablet PO ×2 (12:09→17:35)
[2022-03-03] MEDS: Acetaminophen 500 MG Tablet 1000 MG PO ×2 (12:47→21:41)
--- NOTE | 2022-03-03 13:00 | HP.PCM_ITS ---
[facility] - General General Date of Admission: 03/03/22 Date of Service: 03/03/22 Chief Complaint: Here for rehab. HPI Narrative CHARISSA GUNTER, is a 71 Female who presents with followin03/01/2022 Dr. Johnson performed right minimally invasive direct anterior total hip replacement. 03/01/2022 Feels well postoperatively. 03/02/[address] Incisional wound VAC. Tylenol, Oxycodone for pain. Aspirin 81mg twice daily x 4 weeks for DVT prophylaxis. Doxycycline 100mg twice daily x 2 weeks due to high risk of postoperative infection. Hemoglobin 8.5. 03/03/2022 Admit to TCU with debility, here for rehabilitation, strengthening, prior to discharge home alone. [facility] Medical History (Updated 03/03/22 @ 13:[address] Chema Sanchez MD) Abnormal Pap smear of cervix Acute osteomyelitis of sacrum Alcohol use Anemia Anxiety Aortic stenosis Atherosclerotic heart disease of [place] coronary artery without angina pectoris Atrial fibrillation with RVR (03/05/17) Back pain Back pain Bladder disease Body mass index (bmi) 36.0-36.9, adult Bruising Cardiology follow-up encounter Colovaginal fistula Constipation Coronary artery disease Debility Depression Essential (primary) hypertension Fatty liver Former smoker Gastroesophageal reflux disease GERD (gastroesophageal reflux disease) GERD (gastroesophageal reflux disease) High cholesterol History of echocardiogram History of GI bleed History of pain when walking History of steroid therapy History of transcatheter aortic valve replacement (TAVR) (11/24/20) Hypergranulation Hypothyroidism Hypothyroidism Leg cramps Loss of consciousness Low iron Lumbosacral pain, chronic Methicillin resistant Staph aureus culture positive Neuropathic pain Neuropathy Non-healing surgical wound Nonrheumatic aortic (valve) stenosis Obesity Osteoarthritis Osteomyelitis Osteomyelitis of pelvis Postoperative seroma of subcutaneous tissue after dermatologic procedure Pressure ulcer of left heel, stage 3 Pressure ulcer of right heel, stage 3 Pressure ulcer of sacral region, 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, stage 4 Recurrent UTI (urinary tract infection) Sacral osteomyelitis Surgical wound present Walker as ambulation aid Wears glasses Home Medications levothyroxine 25 mcg tablet 25 mcg PO DAILY THYROID 03/02/17 [History Last Taken 12/07/21 06:05] omeprazole 40 mg capsule,delayed release 40 mg PO 1400 PRN GERD 04/11/18 [History Last Taken 12/07/21 06:05] Lactobacillus acidophilus 500 million cell-fructooligosac 50 mg tablet 1 each PO DAILY probiotic 03/12/19 [History Last Taken Unknown] polyethylene glycol 3350 17 gram oral powder packet 17 g PO PRN PRN Constipation 04/28/19 [History Last Taken Unknown] potassium chloride 20 mEq tablet,extended release(part/cryst) 40 meq PO DAILY supplement #60 tabs 07/07/19 [Rx Last Taken Unknown] ascorbic acid (vitamin C) 500 mg capsule 500 mg PO BID vitamin 01/06/20 [History Last Taken Unknown] docusate sodium 100 mg capsule 300 mg PO QHS stool softner 01/06/20 [History Last Taken Unknown] gabapentin 600 mg tablet 600 mg PO TID PAIN 12/17/20 [History Last Taken Unknown] cholecalciferol (vitamin D3) 25 mcg (1,000 unit) capsule (Vitamin D3) 25 mcg PO DAILY Supplement 11/22/21 [History Last Taken Unknown] methenamine hippurate 1 gram tablet (Hiprex) 2 g PO BID Check with primary doctor 11/22/21 [History Last Taken Unknown] psyllium husk 0.4 gram capsule (Daily Fiber) 0.8 g PO BID Check with primary doctor 11/22/21 [History Last Taken Unknown] rosuvastatin 5 mg tablet (Crestor) 5 mg PO .Q3DAY Cholesterol 11/22/21 [History Last Taken Unknown] sucralfate 1 gram tablet (Carafate) 1 g PO 4X/DAY Antacid 11/22/21 [History Last Taken Unknown] clopidogrel 75 mg tablet 75 mg PO DAILY Blood Thinner 12/10/21 [History Last Taken Unknown] baclofen 10 mg tablet 30 mg PO QHS muscle spasms 01/31/22 [History Last Taken Unknown] diclofenac sodium 50 mg tablet,delayed release 50 mg PO BID pain 01/31/22 [History Last Taken Unknown] linaclotide 145 mcg capsule (Linzess) 145 mcg PO PRN PRN Constipation 01/31/22 [History Last Taken Unknown] omega-3 fatty acids 1,000 mg PO DAILY supplement 01/31/22 [History Last Taken Unknown] acetaminophen 500 mg tablet 1,000 mg PO Q8H pain 02/20/22 [History Last Taken Unknown] acetaminophen 500 mg tablet 1,000 mg PO Q6H PRN Pain 03/03/22 [History Last Taken Unknown] aspirin 81 mg chewable tablet 81 mg PO BIDCM blood thinner 03/03/22 [History Last Taken Unknown] doxycycline monohydrate 100 mg capsule 100 mg PO BID antibiotic 03/03/22 [History Last Taken Unknown] ferrous sulfate 325 mg (65 mg iron) tablet (FeroSul) 325 mg PO 1200,1700 supplement 03/03/22 [History Last Taken Unknown] folic acid 1 mg tablet 1 mg PO BREAKFAST supplement 03/03/22 [History Last Taken Unknown] Allergy/AdvReac Type Severity Reaction Status Date / Time bee venom protein (honey bee) Allergy Angioedema Verified 01/31/22 08:51 metaxalone [From Skelaxin] Allergy Swelling Verified 01/31/22 08:51 atorvastatin AdvReac Severe SEVERE Verified 01/31/22 08:51 MYALGIAS Family History Father Myocardial infarction age 79 Cancer lung High cholesterol Brother Heart disease High cholesterol Mother COPD (chronic obstructive pulmonary disease) Skin cancer Parkinson disease Grandmother Depression Arthritis Surgical History (Updated 03/03/22 @ 13:[address] Chema Sanchez MD) H/O dilation and curettage History of cardiac catheterization History of coronary artery stent placement (08/23/20) History of partial colectomy History of total right hip replacement Hx of cystoscopy Hx of total hip arthroplasty S/P endometrial ablation S/P flap graft S/P hysterectomy Social History household members: none Smoking Status: Former smoker alcohol intake: current alcohol intake frequency: holidays/special occasions only substance use type: does not use caffeine: Yes what type of physical activity do you participate in: walking and other details: Stretching frequency: 5-6 times per week seatbelt use: always do you feel safe at home: Yes additional social history: - Retired ROS Constitutional Constitutional: Denies chills, fever(s) or weight gain ENT HEENT: Denies headache(s), nasal congestion or nasal discharge Cardiovascular Cardiovascular: Denies chest pain or palpitations Respiratory/Chest Respiratory/Chest: Denies cough, excessive phlegm production or shortness of breath with exertion Gastrointestinal Gastrointestinal: Denies abdominal pain, nausea or vomiting Genitourinary Genitourinary: Denies dysuria Musculoskeletal Musculoskeletal: Denies joint pain or joint swelling Integumentary Integumentary: Denies rash or wounds Neurologic Neurologic: Denies focal weakness, numbness or tingling Psychiatric Psychiatric: Denies anxiety, auditory hallucinations, depression, homicidal ideation or suicidal ideation Physical Exam Const alert General Appearance: cooperative HEENT normocephalic Eyes PERRL and EOMs intact bilaterally Neck supple, no JVD and no carotid bruits Resp normal respiratory effort, normal air movement and clear to auscultation bilaterally Cardio regular rate and regular rhythm GI normal to inspection, nondistended, normoactive bowel sounds, non-tender and non-distended Extremity normal capillary refill Extremity Narrative: Incisional wound VAC right hip. General Extremity: Negative for edema Skin no rashes or lesions noted General Skin Exam: no breakdown Psych affect normal Appearance: appropriate Assessment & Plan Assessment/Plan (1) Debility: (2) Status post total hip replacement, right: (3) Postoperative anemia: (4) Hypothyroidism: (5) Recurrent urinary tract infection: (6) Hypertension: (7) Coronary artery disease: PLAN: Plan 71 year old female with below past medical history hospitalized for right total hip replacement 03/01/[address] Johnson, admitted to TCU with debility, here for rehabilitation, strengthening, prior to discharge home alone. * Debility - PT/OT. * Pain - Tylenol 1000mg q8h, 1000mg Q6h prn pain (1-10). * Bowel - Miralax 17gm daily prn, colace 300mg qhs. * Adult immunization - Administer pneumonia vaccine, covid19 vaccine, flu vaccine as appropriate. * DVT prophylaxis - Aspirin 81mg twice daily thru 03/31/2022. * Recurrent UTI - Methenamine 2gm bid, Vitamin C 500mg bid. * Muscle spasm - Baclofen 30mg qhs. * Coronary artery disease - Plavix 75mg daily. * OA - Diclofenac 50mg bidcm. * ID - Doxycycline 100mg bid x 2 weeks due to high risk of postoperative infection. * Iron deficiency anemia - Ferrous sulfate 325mg bid. * Neuropathic pain - Gabapentin 600mg tidcm. * Hypothyroidism - Levothyroxine 25mcg daily. * GERD - Pantoprazole 40mg daily, Sucralfate 1gm qachs. * Hypokalemia - KCL 40meq daily * Hyperlipidemia - Rosuvastatin 5mg q72h.
--- NOTE | 2022-03-03 15:28 | CHAPLAIN ---
Type of Pastoral Visit _x__ Initial Visit ___ Follow-up Visit ___ On-call Visit ___ General Patient Visit ___ Spiritual Assessment ___ Family Conference ___ Bereavement ___ Rapid Response ___ Code Blue ___ Other (describe below) Pastoral Care Referral From _x__ Patient ___ Family ___ Nurse ___ Physician ___ Small Products Assembler ___ Wire Inserter ___ Other (describe below) Sacrament/Intervention _x__ Active listening ___ Anointing ___ Caodaism ___ Bereavement ___ Communion ___ Mayra exploration ___ _x__ Life review _x__ Prayer ___ Reconciliation ___ Sacrament of Sick ___ Supportive presence ___ Wedding ___ Other (describe below) Pastoral Comments patient has been seen before and has welcomed spiritual care support often in the past; pt will be receiving therapy for a couple of weeks here again; pt gives updates on life and decisions that are coming for her; pt admits to some anxiety about changes in her future like selling her home, moving, and 'starting in a new community'; pt welcomes presence and prayers for support; pt would like future visits as well
[2022-03-03 15:30] VITALS: RESP 16; O2SAT 95
[2022-03-03] MEDS: Methenamine Hippurate 1 GM Tablet 2 GM PO (17:35)
[2022-03-03] MEDS: Ascorbic Acid 500 MG Tablet PO (17:35)
[2022-03-03] MEDS: Psyllium 1 PACKET PO (17:36)
[2022-03-03] MEDS: Aspirin 81 MG TAB.CHEW PO (17:36)
[2022-03-03] MEDS: Sucralfate 1 GM Tablet PO ×2 (17:36→21:43)
[2022-03-03] MEDS: Doxycycline 100 MG CAPSULE PO (17:36)
--- NOTE | 2022-03-03 19:21 | NURSING ---
Educated patient multiple times about calling for assistance with ambulation for her safety. She continued to get up on own and was found walking in room multiple time without assistance. Multiple staff members reminded her to call for assistance with ambulation.
[2022-03-03] MEDS: Docusate Sodium 100 MG Capsule 300 MG PO (21:42)
[2022-03-03] MEDS: Baclofen 10 MG Tablet 30 MG PO (21:42)
[2022-03-03] MEDS: Rosuvastatin Calcium 5 MG Tablet PO (21:44)
[2022-03-04] MEDS: Acetaminophen 500 MG Tablet 1000 MG PO ×3 (05:06→20:40)
[2022-03-04] MEDS: Clopidogrel Bisulfate 75 MG Tablet PO (05:06)
[2022-03-04] MEDS: Sucralfate 1 GM Tablet PO ×4 (05:06→20:45)
[2022-03-04] MEDS: Doxycycline 100 MG CAPSULE PO ×2 (05:07→18:23)
[2022-03-04] MEDS: Levothyroxine 25 MCG TABLET PO (05:07)
[2022-03-04] MEDS: Methenamine Hippurate 1 GM Tablet 2 GM PO ×2 (05:07→18:23)
[2022-03-04 06:26] LABS: Absolute Lymphocyte Count 1.29 X10^3/uL (0.83-4.51); Basophil# 0.04 X10^3/uL; Basophil% 0.5 % (0-1); Eosinophil# 0.26 X10^3/uL; Hematocrit 26.5 % (37-47); Hemoglobin 8.1 g/dL (12.0-15.0); Lymphocyte # 1.29 X10^3/ul (0.83-4.51); Lymphocyte % 14.7 % (19-41); Mean Corp Hgb Conc 30.6 g/dL (32-36); Mean Platelet Vol. 9.3 fl (6.2-12.0); Monocyte# 1.15 X10^3/uL; Monocyte% 13.1 % (0-10); NRBC Flagged by Analyzer 0 % (0-5); Neutrophil # 6.03 X10^3/uL (2.7-7.7); Neutrophil % 68.4 % (47-70); Platelet Count 258 K/mm3 (150-450); RBC Distribution Width CV 16.5 % (11.6-14.6); RBC Distribution Width SD 57.7 fl (35.1-43.9); Red Blood Count 2.79 M/mm3 (4.2-5.4); White Blood Count 8.8 K/mm3 (4.4-11.0)
[2022-03-04 06:52] LABS: Anion Gap 6 (5-15); BUN 17 mg/dL (7-18); BUN/Creat Ratio 31.4 RATIO (10-20); Calcium,Total 8.8 mg/dL (8.5-10.1); Chloride 111 mmol/L (98-107); Creatinine, Serum 0.54 mg/dL (0.55-1.02); EST Glomerular Filtration Rate 118 mL/min (>60); Est Glom Filt Rate - Afr Amer 143 mL/min (>60); Glucose 109 mg/dL (74-106); Potassium 3.7 mmol/L (3.5-5.1); Sodium Level 143 mmol/L (136-145)
[2022-03-04] MEDS: Potassium Chloride Oral Tablet 20 MEQ 40 MEQ PO (08:09)
[2022-03-04] MEDS: Gabapentin 600 MG Tablet PO ×3 (08:09→18:23)
[2022-03-04] MEDS: Ascorbic Acid 500 MG Tablet PO ×2 (08:10→16:34)
[2022-03-04] MEDS: Aspirin 81 MG TAB.CHEW PO ×2 (08:10→16:34)
[2022-03-04] MEDS: Psyllium 1 PACKET PO ×2 (08:10→18:21)
[2022-03-04] MEDS: Tuberculin,Purif.prot.deriv. 50 TU/ML Vial 0.1 ML ID (10:19)
[2022-03-04] MEDS: Ferrous Sulfate 325 MG Tablet PO ×2 (11:24→16:34)
[2022-03-04 16:00] VITALS: BP 143/60; PULSE 72; RESP 14; TEMP 36.7; O2SAT 96
[2022-03-04] MEDS: Docusate Sodium 100 MG Capsule 300 MG PO (20:45)
[2022-03-04] MEDS: Baclofen 10 MG Tablet 30 MG PO (20:45)
[2022-03-04 22:16] VITALS: PULSE 82; RESP 16; O2SAT 97
[2022-03-05] MEDS: Levothyroxine 25 MCG TABLET PO (04:18)
[2022-03-05] MEDS: Doxycycline 100 MG CAPSULE PO ×2 (04:18→17:10)
[2022-03-05] MEDS: Acetaminophen 500 MG Tablet 1000 MG PO ×3 (04:18→20:22)
[2022-03-05] MEDS: Methenamine Hippurate 1 GM Tablet 2 GM PO ×2 (04:18→17:09)
[2022-03-05] MEDS: Clopidogrel Bisulfate 75 MG Tablet PO (04:19)
[2022-03-05] MEDS: Gabapentin 600 MG Tablet PO ×3 (08:07→17:11)
[2022-03-05] MEDS: Ascorbic Acid 500 MG Tablet PO ×2 (08:07→17:10)
[2022-03-05] MEDS: Potassium Chloride Oral Tablet 20 MEQ 40 MEQ PO (08:07)
[2022-03-05] MEDS: Aspirin 81 MG TAB.CHEW PO ×2 (08:07→17:10)
[2022-03-05] MEDS: Sucralfate 1 GM Tablet PO ×4 (08:07→20:26)
[2022-03-05 10:00] VITALS: PULSE 75; RESP 18; O2SAT 96
[2022-03-05] MEDS: Ferrous Sulfate 325 MG Tablet PO ×2 (11:52→17:10)
[2022-03-05 15:57] VITALS: BP 133/54; PULSE 75; RESP 18; TEMP 36.6; O2SAT 96
[2022-03-05] MEDS: Psyllium 1 PACKET PO (17:09)
[2022-03-05] MEDS: Baclofen 10 MG Tablet 30 MG PO (20:25)
[2022-03-05] MEDS: Docusate Sodium 100 MG Capsule 300 MG PO (20:26)
[2022-03-06] MEDS: Acetaminophen 500 MG Tablet 1000 MG PO ×4 (04:38→23:03)
[2022-03-06] MEDS: Methenamine Hippurate 1 GM Tablet 2 GM PO ×2 (04:39→18:08)
[2022-03-06] MEDS: Clopidogrel Bisulfate 75 MG Tablet PO (04:40)
[2022-03-06] MEDS: Doxycycline 100 MG CAPSULE PO ×2 (04:40→18:07)
[2022-03-06] MEDS: Levothyroxine 25 MCG TABLET PO (04:40)
[2022-03-06 05:26] LABS: Absolute Lymphocyte Count 1.25 X10^3/uL (0.83-4.51); Absolute Neutrophil Count 5.5 X10^3/uL (2.0-7.7); Basophil# 0.04 X10^3/uL; Basophil% 0.5 % (0-1); Eosinophil# 0.35 X10^3/uL; Eosinophils% 4.3 % (0-5); Hematocrit 28.5 % (37-47); Hemoglobin 8.3 g/dL (12.0-15.0); Lymphocyte # 1.25 X10^3/ul (0.83-4.51); Lymphocyte % 15.2 % (19-41); Mean Corp Hgb Conc 29.1 g/dL (32-36); Mean Corpuscular Hgb 27.6 pg (27.0-32.0); Mean Corpuscular Volume 94.7 fL (81-99); Mean Platelet Vol. 8.9 fl (6.2-12.0); Monocyte% 12.2 % (0-10); NRBC Flagged by Analyzer 0 % (0-5); Neutrophil # 5.53 X10^3/uL (2.7-7.7); Neutrophil % 67.3 % (47-70); Platelet Count 330 K/mm3 (150-450); RBC Distribution Width CV 16.1 % (11.6-14.6); RBC Distribution Width SD 55.7 fl (35.1-43.9); Red Blood Count 3.01 M/mm3 (4.2-5.4); White Blood Count 8.2 K/mm3 (4.4-11.0)
[2022-03-06] MEDS: Sucralfate 1 GM Tablet PO ×4 (06:30→21:01)
[2022-03-06] MEDS: Ascorbic Acid 500 MG Tablet PO ×2 (09:07→18:06)
[2022-03-06] MEDS: Gabapentin 600 MG Tablet PO ×3 (09:07→18:11)
[2022-03-06] MEDS: Psyllium 1 PACKET PO ×2 (09:07→18:08)
[2022-03-06] MEDS: Potassium Chloride Oral Tablet 20 MEQ 40 MEQ PO (09:07)
[2022-03-06] MEDS: Aspirin 81 MG TAB.CHEW PO ×2 (09:07→18:05)
--- NOTE | 2022-03-06 11:46 | PCM.PN.DRR ---
TCU RX Drug Regimen Review Subjective: TCU Admission. 71 YOF presented for right total hip replacement 03/01/[address] Johnson. Admitted to TCU with debility for strengthening and rehabilitation. Objective: Allergies bee venom protein (honey bee) Allergy (Verified 01/31/22 08:51) Angioedema metaxalone [From Skelaxin] Allergy (Verified 01/31/22 08:51) Swelling atorvastatin Adverse Reaction (Severe, Verified 01/31/22 08:51) SEVERE MYALGIAS Current Medications Generic Name Dose Route Start Last Admin Trade Name Freq PRN Reason Stop Dose Admin Acetaminophen 1,000 mg 03/03/22 12:00 03/06/22 04:38 Acetaminophen 500 Mg Tablet PO 1,000 mg Q8H ELOISA Administration Acetaminophen 1,000 mg 03/03/22 11:27 Acetaminophen 500 Mg Tablet PO Q6H PRN Pain Score 1-10 Ascorbic Acid 500 mg 03/03/22 17:00 03/06/22 09:07 Ascorbic Acid 500 Mg Tablet PO 500 mg BIDCM ELOISA Administration Aspirin 81 mg 03/03/22 17:00 03/06/22 09:07 Aspirin 81 Mg Tab.Chew PO 03/31/22 17:01 81 mg BIDCM ELOISA Administration Baclofen 30 mg 03/03/22 22:00 03/05/22 20:25 Baclofen 10 Mg Tablet PO 30 mg QHS ELOISA Administration Clopidogrel Bisulfate 75 mg 03/04/22 06:00 03/06/22 04:40 Clopidogrel Bisulfate 75 Mg Tablet PO 75 mg DAILY ELOISA Administration Diclofenac Sodium 50 mg 03/03/22 17:00 03/06/22 09:07 Diclofenac 50 Mg Tablet PO 50 mg BIDCM ELOISA Administration Docusate Sodium 300 mg 03/03/22 22:00 03/05/22 20:26 Docusate Sodium 100 Mg Capsule PO 300 mg QHS ELOISA Administration Doxycycline Monohydrate 100 mg 03/03/22 18:00 03/06/22 04:40 Doxycycline 100 Mg Capsule PO 100 mg BID ELOISA Administration Ferrous Sulfate 325 mg 03/03/22 12:00 03/05/22 17:10 Ferrous Sulfate 325 Mg Tablet PO 325 mg 1200,1700 ELOISA Administration Gabapentin 600 mg 03/03/22 12:45 03/06/22 09:07 Gabapentin 600 Mg Tablet PO 600 mg TIDCM ELOISA Administration Levothyroxine Sodium 25 mcg 03/04/22 06:00 03/06/22 04:40 Levothyroxine 25 Mcg Tablet PO 25 mcg DAILY ELOISA Administration Methenamine Hippurate 2 gm 03/03/22 18:00 03/06/22 04:39 Methenamine Hippurate 1 Gm Tablet PO 2 gm BID ELOISA Administration Pantoprazole Sodium 40 mg 03/03/22 14:00 Pantoprazole Sodium 40 Mg Tablet PO 1400 PRN GERD Polyethylene Glycol 17 gm 03/03/22 11:27 Polyethylene Glycol 3350 17 Gm Packet PO DAILY PRN PRN Constipation Potassium Chloride 40 meq 03/04/22 08:00 03/06/22 09:07 Potassium Chloride Oral Tablet 20 Meq PO 40 meq BREAKFAST ELOISA Administration Psyllium Hydrophilic Mucilloid 1 packet 03/03/22 18:00 03/06/22 09:07 Psyllium 1 Packet PO 1 packet BID ELOISA Administration Rosuvastatin Calcium 5 mg 03/03/22 22:00 03/03/22 21:44 Rosuvastatin Calcium 5 Mg Tablet PO 5 mg Q72H ELOISA Administration Sucralfate 1 gm 03/03/22 16:00 03/06/22 06:30 Sucralfate 1 Gm Tablet PO 1 gm 1HR_ACHS ELOISA Administration Tuberculin PPD 0.1 ml 03/11/22 10:00 Tuberculin,Purif.Prot.Deriv. 50 Tu/Ml Vial ID 03/11/22 10:01 X1 ONE Problem List (Last Reviewed 03/03/22 @ 13:[address] Chema Sanchez MD) Coronary artery disease (Acute) Hypertension (Chronic) Recurrent urinary tract infection (Acute) Hypothyroidism (Acute) Debility (Acute) Status post total hip replacement, right (Acute) Postoperative anemia (Acute) Vital Signs Temp Pulse Resp BP Pulse Ox O2 Del Method 97.9 F 75 18 133/54 H 96 Room Air 03/05/22 15:57 03/05/22 15:57 03/05/22 15:57 03/05/22 15:57 03/05/22 15:57 03/05/22 15:57 Oxygen Delivery Method Room Air Weight: 98.883 kg Body Mass Index (BMI) 37.2 Sodium 143 mmol/L (136-145) 03/04/22 06:16 Potassium 3.7 mmol/L (3.5-5.1) 03/04/22 06:16 Chloride 111 mmol/L (98-107) H 03/04/22 06:16 Carbon Dioxide 26.0 mmol/L (21.0-32.0) 03/04/22 06:16 Anion Gap 6 (5-15) 03/04/22 06:16 BUN 17 mg/dL (7-18) 03/04/22 06:16 Creatinine 0.54 mg/dL (0.55-1.02) L 03/04/22 06:16 Est GFR (MDRD) Af Amer 143 mL/min (>60) 03/04/22 06:16 Est GFR (MDRD) Non-Af 118 mL/min (>60) 03/04/22 06:16 BUN/Creatinine Ratio 31.4 RATIO (10-20) H 03/04/22 06:16 Glucose 109 mg/dL (74-106) H 03/04/22 06:16 Assessment/Plan: 1. Pain: acetaminophen 1000mg Q8 and 1000mg PO Q6H PRN pain 1-10. Please continue to monitor for S/S of increased pain and PRN usage. Resident has not required a PRN dose. 2. Bowel: Miralax 17gm PO daily PRN constipation and docusate 300mg PO QHS. Please continue to monitor for constipation and PRN usage. Resident has not had any doses of Miralax. No documented bowel movements. 3. DVT prophylaxis: aspirin 81mg PO BIDCM thru 03/31/22. Please continue to monitor for S/S of bleeding/DVT and hemoglobin (last 8.3g/dL). 4. CAD: clopidogrel 75mg PO daily. Please continue to monitor for S/S of bleeding and hemoglobin. 5. Post-operative infection prophylaxis: doxycycline 100mg PO BID thru 03/17/22. Please continue to monitor for S/S of infection and diarrhea. 6. Muscle spasm: baclofen 30mg PO QHS. Please continue to monitor for weakness and muscle spasms. 7. Osteoarthritis: diclofenac 50mg PO BIDCM. Please continue to monitor for S/S of pain and bleeding. 8. Iron deficiency anemia: ferrous sulfate 325mg PO BIDCM. Please continue to monitor hemoglobin, dark stools and constipation. 9. Recurrent UTI: methenamine 2gm PO BID and ascorbic acid 500mg PO BIDCM. Please continue to monitor for GI side effects and S/S of UTI. 10. Hypothyroidism: levothyroxine 25mcg PO daily. Please continue to monitor for S/S of hypo/hyperthyroidism and TSH (last 02/07/22). 11. GERD: pantoprazole 40mg PO daily PRN GERD and sucralfate 1gm PO ACHS. Please continue to monitor for S/S of GERD and PRN usage. Resident has not received any doses of pantoprazole. 12. Hypokalemia: potassium chloride 40mEq PO DAILYCM. Please continue to monitor potassium (last 3.7mmol/L). 13. Hyperlipidemia: rosuvastatin 5mg PO Q72H. Last lipid panel is from 07/2017. Please consider ordering a lipid panel now and then annually as clinically appropriate. Thanks. Please continue to monitor for muscle pain and LFTs (last 02/07/22). Assessment/Plan for indications treated with psychotropic medications: 1. Neuropathic pain: gabapentin 600mg PO TIDCM. Please continue to monitor for increased pain, confusion and renal function (CrCL 100.1mL/min using adjusted body weight). This medication is being used for neuropathic pain, GDR not appropriate. This medication is on the BEERs list for falls/fractures. Medical chart and medication regimen reviewed. The following medication irregularities or issues were identified: *1. Rosuvastatin 5mg PO Q72H. Last lipid panel is from 07/2017. Please consider ordering a lipid panel now and then annually as clinically appropriate. Thanks. Date of Note:: 03/06/22
[2022-03-06] MEDS: Ferrous Sulfate 325 MG Tablet PO ×2 (11:57→18:05)
--- NOTE | 2022-03-06 13:25 | NURSING ---
wound vac removed from RT anterior incision per order. some tape millard noted from drape used. pt showered and ABD placed over incision.
[2022-03-06 14:08] VITALS: BP 114/60; PULSE 83; RESP 18; TEMP 36.3; O2SAT 97
--- NOTE | 2022-03-06 14:40 | CASEMGMT ---
Social Work Met with patient to complete initial assessment. Pt known to this worker from previous stay. No changes to previous assessment, code status (DNR-CCA, no intubation) and MOLST. Educated to Medicare insurance. Pts goal is to return home alone on day of f/u appt with Dr. Johnson 03/16. Pt would like to resume [facility] services with [facility], whom is now [facility]. SW to coordinate DC. Natalie Fry, CUSTOMER ASSISTANCE REPRESENTATIVE HEAVY MACHINERY ASSEMBLER
--- NOTE | 2022-03-06 17:33 | NURSING ---
dr arriola udpated on pt requesting that tylenol be scheduled q6h scheduled instead of 8 hr, new order.
[2022-03-06] MEDS: Rosuvastatin Calcium 5 MG Tablet PO (21:02)
[2022-03-06] MEDS: Docusate Sodium 100 MG Capsule 300 MG PO (21:02)
[2022-03-06] MEDS: Baclofen 10 MG Tablet 30 MG PO (21:03)
[2022-03-06 21:05] VITALS: PULSE 80; RESP 16; O2SAT 96
[2022-03-07] MEDS: Clopidogrel Bisulfate 75 MG Tablet PO (05:27)
[2022-03-07] MEDS: Doxycycline 100 MG CAPSULE PO ×2 (05:27→16:42)
[2022-03-07] MEDS: Methenamine Hippurate 1 GM Tablet 2 GM PO ×2 (05:27→16:40)
[2022-03-07] MEDS: Levothyroxine 25 MCG TABLET PO (05:27)
[2022-03-07] MEDS: Acetaminophen 500 MG Tablet 1000 MG PO ×4 (05:28→23:01)
[2022-03-07] MEDS: Sucralfate 1 GM Tablet PO ×4 (05:30→21:11)
[2022-03-07] MEDS: Psyllium 1 PACKET PO ×2 (07:54→16:39)
[2022-03-07] MEDS: Gabapentin 600 MG Tablet PO ×3 (07:54→16:41)
[2022-03-07] MEDS: Potassium Chloride Oral Tablet 20 MEQ 40 MEQ PO (07:54)
[2022-03-07] MEDS: Ascorbic Acid 500 MG Tablet PO ×2 (07:55→16:41)
[2022-03-07] MEDS: Aspirin 81 MG TAB.CHEW PO ×2 (07:55→16:41)
[2022-03-07] MEDS: Ferrous Sulfate 325 MG Tablet PO ×2 (11:57→16:41)
[2022-03-07 13:32] LABS: Mucous, Urine 0 SEEN /hpf (<or=2+); Squamous Epithelial Cells - UA 0 SEEN /hpf (5-10)
[2022-03-07 13:37] LABS: Color, Urine Yellow (Yellow); Glucose, Dipstick Normal (Normal); Ketone-Dipstick Negative (Negative); Leukocyte Esterase-Dipstick 500 /ul (Negative); Nitrite-Dipstick Positive (Negative); Occult Blood-Urine 250 /ul (Negative); Protein-Dipstick 100 mg/dl (Negative); Specific Gravity, Urine 1.015 (1.002-1.030); Urine Bilirubin Dipstick Negative (Negative); Urine Clarity Cloudy (Clear); Urine Urobilinogen Normal (Normal); Urine pH 6.5 (5.0 - 8.0)
[2022-03-07 13:41] VITALS: BP 126/71; PULSE 85; RESP 18; TEMP 36.3; O2SAT 97
[2022-03-07 13:43] LABS: Bacteria 4+ /hpf (None Seen); Red Blood Cells-Urine 10-25 SEEN /hpf (0-5); White Blood Cells 25-50 SEEN /hpf (0-5)
[2022-03-07] MEDS: Nitrofurantoin Macrocrystals 100 MG Capsule PO (17:39)
[2022-03-07] MEDS: Docusate Sodium 100 MG Capsule 300 MG PO (21:12)
[2022-03-07] MEDS: Baclofen 10 MG Tablet 30 MG PO (21:12)
[2022-03-08] MEDS: Acetaminophen 500 MG Tablet 1000 MG PO ×4 (05:15→23:21)
[2022-03-08] MEDS: Doxycycline 100 MG CAPSULE PO ×2 (05:15→17:57)
[2022-03-08] MEDS: Nitrofurantoin Macrocrystals 100 MG Capsule PO ×2 (05:16→17:56)
[2022-03-08] MEDS: Levothyroxine 25 MCG TABLET PO (05:17)
[2022-03-08] MEDS: Clopidogrel Bisulfate 75 MG Tablet PO (05:17)
[2022-03-08] MEDS: Methenamine Hippurate 1 GM Tablet 2 GM PO ×2 (05:19→17:58)
[2022-03-08] MEDS: Sucralfate 1 GM Tablet PO ×4 (05:25→21:59)
[2022-03-08] MEDS: Gabapentin 600 MG Tablet PO ×3 (05:31→17:55)
[2022-03-08] MEDS: Psyllium 1 PACKET PO ×2 (08:18→17:56)
[2022-03-08] MEDS: Potassium Chloride Oral Tablet 20 MEQ 40 MEQ PO (08:19)
[2022-03-08] MEDS: Aspirin 81 MG TAB.CHEW PO ×2 (08:19→17:56)
[2022-03-08] MEDS: Ascorbic Acid 500 MG Tablet PO ×2 (08:19→17:56)
[2022-03-08 11:25] VITALS: BP 113/50; PULSE 83; TEMP 36.9; O2SAT 95
--- NOTE | 2022-03-08 11:25 | CASEMGMT ---
Social Work IDT met with patient for care plan meeting. Discussed patient's progress in PT/OT/SN. Educated to Medicare benefit. Planned DC for 03/16. Brother to transport. No DME needs. SW referred to [facility] PT/OT. Plan: DC home alone 03/16, [facility] PT/OT JOSE ALEJANDRO DumontW
[2022-03-08] MEDS: Ferrous Sulfate 325 MG Tablet PO ×2 (11:27→17:56)
--- NOTE | 2022-03-08 11:31 | NURSING ---
Owner Spa Director Note; Activity Asst: complete
--- NOTE | 2022-03-08 12:26 | CASEMGMT ---
Social Work BIMS () and PHQ-9 (10/28) completed for MDS assessment. Natalie Fry MSW MECHANICAL FACILITIES TECHNICIAN
--- NOTE | 2022-03-08 21:27 | DS.PCM_ITS ---
Providers Date of Admission: 03/03/22 Primary Care Physician: Dr. Chema Sanchez MD Reason For Visit: TOTAL R. HIP REPLACEMENT Diagnosis Discharge Diagnosis (1) Debility: Status: Acute Code(s): R53.81 - Other malaise (2) Status post total hip replacement, right: Status: Acute Code(s): Z96.641 - Presence of right artificial hip joint (3) Postoperative anemia: Status: Acute Code(s): D64.9 - Anemia, unspecified (4) Hypothyroidism: Status: Acute Code(s): E03.9 - Hypothyroidism, unspecified (5) Recurrent urinary tract infection: Status: Acute Code(s): N39.0 - Urinary tract infection, site not specified (6) Hypertension: Status: Chronic Code(s): I10 - Essential (primary) hypertension (7) Coronary artery disease: Status: Acute Code(s): I25.10 - Atherosclerotic heart disease of [place] coronary artery without angina pectoris Plan 71 year old female with below past medical history hospitalized for right total hip replacement 03/01/[address] Johnson, admitted to TCU with debility, here for rehabilitation, strengthening, prior to discharge home alone. * Debility - PT/OT. * Pain - Tylenol 1000mg q8h, 1000mg Q6h prn pain (1-10). * Bowel - Miralax 17gm daily prn, colace 300mg qhs. * Adult immunization - Administer pneumonia vaccine, covid19 vaccine, flu vaccine as appropriate. * DVT prophylaxis - Aspirin 81mg twice daily thru 03/31/2022. * Recurrent UTI - Methenamine 2gm bid, Vitamin C 500mg bid. * Muscle spasm - Baclofen 30mg qhs. * Coronary artery disease - Plavix 75mg daily. * OA - Diclofenac 50mg bidcm. * ID - Doxycycline 100mg bid x 2 weeks due to high risk of postoperative infection. * Iron deficiency anemia - Ferrous sulfate 325mg bid. * Neuropathic pain - Gabapentin 600mg tidcm. * Hypothyroidism - Levothyroxine 25mcg daily. * GERD - Pantoprazole 40mg daily, Sucralfate 1gm qachs. * Hypokalemia - KCL 40meq daily * Hyperlipidemia - Rosuvastatin 5mg q72h. Medications at Discharge Home Medications levothyroxine 25 mcg tablet 25 mcg PO DAILY THYROID 03/02/17 omeprazole 40 mg capsule,delayed release 40 mg PO 1400 PRN GERD 04/11/18 potassium chloride 20 mEq tablet,extended release(part/cryst) 40 meq PO DAILY supplement #60 tabs 07/07/19 ascorbic acid (vitamin C) 500 mg capsule 500 mg PO BID vitamin 01/06/20 docusate sodium 100 mg capsule 300 mg PO QHS stool softner 01/06/20 gabapentin 600 mg tablet 600 mg PO TID PAIN 12/17/20 cholecalciferol (vitamin D3) 25 mcg (1,000 unit) capsule (Vitamin D3) 25 mcg PO DAILY Supplement 11/22/21 methenamine hippurate 1 gram tablet (Hiprex) 2 g PO BID Check with primary doctor 11/22/21 psyllium husk 0.4 gram capsule (Daily Fiber) 0.8 g PO BID Check with primary doctor 11/22/21 rosuvastatin 5 mg tablet (Crestor) 5 mg PO .Q3DAY Cholesterol 11/22/21 sucralfate 1 gram tablet (Carafate) 1 g PO 4X/DAY Antacid 11/22/21 clopidogrel 75 mg tablet 75 mg PO DAILY Blood Thinner 12/10/21 baclofen 10 mg tablet 30 mg PO QHS muscle spasms 01/31/22 diclofenac sodium 50 mg tablet,delayed release 50 mg PO BID pain 01/31/22 linaclotide 145 mcg capsule (Linzess) 145 mcg PO PRN PRN Constipation 01/31/22 acetaminophen 500 mg tablet 1,000 mg PO Q8H pain 02/20/22 acetaminophen 500 mg tablet 1,000 mg PO Q6H PRN Pain 03/03/22 ferrous sulfate 325 mg (65 mg iron) tablet (FeroSul) 325 mg PO 1200,1700 supplement 03/03/22 folic acid 1 mg tablet 1 mg PO BREAKFAST supplement 03/03/22 aspirin 81 mg chewable tablet 81 mg PO BIDCM blood thinner 15 days #30 tabs 03/08/22 nitrofurantoin monohydrate/macrocrystals 100 mg capsule 100 mg PO BID 2 days #4 caps 03/08/22 Hospital Course Operations total hip replacement (Right.) Procedures None Summary of Care Provided Minutes Spent on Discharge: 35 Hospital Course: 71 year old female with below past medical history hospitalized for right total hip replacement 03/01/[address] Johnson, admitted to TCU with debility, here for rehabilitation, strengthening, prior to discharge home alone. 03/07/2022 E. Coli urinary tract infection treated with nitrofurantoin 100mg twice daily x 10 days. Discharge home alone 03/16/2022, [facility] PT/OT. Physical Exam Const alert General Appearance: cooperative HEENT normocephalic Eyes PERRL and EOMs intact bilaterally Neck supple, no JVD and no carotid bruits Resp normal respiratory effort, normal air movement and clear to auscultation bilat erally Cardio regular rate and regular rhythm GI normal to inspection, nondistended, normoactive bowel sounds, non-tender and non-distended Extremity normal capillary refill General Extremity: Negative for edema Skin no rashes or lesions noted General Skin Exam: no breakdown Psych affect normal Appearance: appropriate Weight / BMI Weight Weight: 100.062 kg Body Mass Index (BMI) 37.2 ABG / Lab / Microbiology Data Result Diagrams: 03/06/22 05:20 03/04/22 06:16 Microbiology: Microbiology 03/07/22 13:25 Urine, Clean Catch Urine Culture - Preliminary Presumptive E. coli D/C Instructions Discharge Diet: No restrictions Discharge Activity: Return to Normal Activity, May Shower and Use Walker Weight Bearing Status: Weight bearing as tolerated Call your doctor if you observe: Fever of 101 or Higher, Inability to urinate, Inability to have a bowel movement, Shortness of breath, Dizziness, Fainting spells, Swelling in the ankles, Chest pain and Uncontrolled pain Additional Instructions: Discharge home alone 03/16/2022, [facility] PT/OT. Please Follow Up With: Chema Sanchez Chi, MD When: Day of discharge. Meaningful Use Info Meaningful Use Diagnoses (Choose all that apply): None applicable Discharge Plan Admission Admit Date/Time: 03/03/22 11:11 Primary Reason for Your Visit: Debility. Attending Provider: Chema Sanchez Chi Primary Care Provider: Chema Sanchez Chi Instructions Additional Instructions / Restrictions: Discharge home alone 03/16/2022, [facility] PT/OT. Discharge Orders/Prescriptions Prescriptions: New nitrofurantoin monohyd/m-cryst 100 mg Capsule 100 mg PO BID 2 Days Qty: 4 0RF Continued gabapentin 600 mg tablet 600 mg PO TID levothyroxine 25 MCG tablet 25 mcg PO DAILY omeprazole 40 MG capsule,delayed release(DR/EC) 40 mg PO 1400 PRN (Reason: GERD) potassium chloride 20 MEQ tablet 40 meq PO DAILY Qty: 60 0RF docusate sodium 100 MG capsule 300 mg PO QHS ascorbic acid (vitamin C) 500 MG capsule 500 mg PO BID sucralfate [Carafate] 1 gram Tablet 1 g PO 4X/DAY methenamine hippurate [Hiprex] 1 gram Tablet 2 g PO BID cholecalciferol (vitamin D3) [Vitamin D3] 25 mcg (1,000 unit) Capsule 25 mcg PO DAILY psyllium husk [Daily Fiber] 0.4 gram Capsule 0.8 g PO BID rosuvastatin [Crestor] 5 mg tablet 5 mg PO .Q3DAY baclofen 10 mg tablet 30 mg PO QHS Label Comments: TAKE 3 TABLETS BY MOUTH DAILY FOR 7 DAYS diclofenac sodium 50 mg tablet,delayed release (DR/EC) 50 mg PO BID Label Comments: TAKE 1 TABLET ORALLY TWICE PER DAY FOR 90 DAYS TAKE WITH FOOD Linzess 145 mcg Capsule 145 mcg PO PRN PRN (Reason: Constipation) acetaminophen 500 mg Tablet 1,000 mg PO Q8H clopidogrel 75 mg tablet 75 mg PO DAILY Label Comments: LAST DOSE 02/07/2022 acetaminophen 500 mg tablet 1,000 mg PO Q6H PRN (Reason: Pain) Rx Instructions: Do not take more than 3000 mg Tylenol in a 24-hour period. ferrous sulfate [FeroSul] 325 mg (65 mg iron) tablet 325 mg PO 1200,1700 folic acid 1 mg tablet 1 mg PO BREAKFAST aspirin 81 mg tablet,chewable 81 mg PO BIDCM 15 Days Qty: 30 0RF Rx Instructions: Take 81 mg aspirin twice daily for 4 weeks postoperatively for DVT prophylaxis. Discontinued Lactobac acidoph-fructooligos 1 EACH tablet 1 each PO DAILY polyethylene glycol 3350 17 GM packet 17 g PO PRN PRN (Reason: Constipation) omega-3 fatty acids Capsule 1,000 mg PO DAILY doxycycline monohydrate 100 mg capsule 100 mg PO BID Rx Instructions: Take 2 weeks postoperatively Referrals / Follow Up: Chema Sanchez Chi, MD [Primary Care Provider] - 03/16/22 1:00 am Disposition Disposition (needs filled in before D/C Order can be placed): Home Health Service
[2022-03-08] MEDS: Docusate Sodium 100 MG Capsule 300 MG PO (21:58)
[2022-03-08] MEDS: Baclofen 10 MG Tablet 30 MG PO (21:59)
[2022-03-09] MEDS: Psyllium 1 PACKET PO ×2 (06:00→17:27)
[2022-03-09] MEDS: Acetaminophen 500 MG Tablet 1000 MG PO ×4 (06:00→23:11)
[2022-03-09] MEDS: Clopidogrel Bisulfate 75 MG Tablet PO (06:00)
[2022-03-09] MEDS: Methenamine Hippurate 1 GM Tablet 2 GM PO ×2 (06:00→17:26)
[2022-03-09] MEDS: Nitrofurantoin Macrocrystals 100 MG Capsule PO ×2 (06:00→17:27)
[2022-03-09] MEDS: Levothyroxine 25 MCG TABLET PO (06:00)
[2022-03-09] MEDS: Sucralfate 1 GM Tablet PO ×4 (06:00→21:16)
[2022-03-09] MEDS: Doxycycline 100 MG CAPSULE PO ×2 (06:01→17:26)
[2022-03-09] MEDS: Gabapentin 600 MG Tablet PO ×3 (08:29→17:24)
[2022-03-09] MEDS: Potassium Chloride Oral Tablet 20 MEQ 40 MEQ PO (08:29)
[2022-03-09] MEDS: Aspirin 81 MG TAB.CHEW PO ×2 (08:29→17:25)
[2022-03-09] MEDS: Ascorbic Acid 500 MG Tablet PO ×2 (08:30→17:25)
[2022-03-09] MEDS: Ferrous Sulfate 325 MG Tablet PO ×2 (11:40→17:25)
[2022-03-09 11:48] VITALS: PULSE 84; RESP 16; O2SAT 96
--- NOTE | 2022-03-09 15:30 | CHAPLAIN ---
Type of Pastoral Visit ___ Initial Visit _x__ Follow-up Visit ___ On-call Visit ___ General Patient Visit ___ Spiritual Assessment ___ Family Conference ___ Bereavement ___ Rapid Response ___ Code Blue ___ Other (describe below) Pastoral Care Referral From _x__ Patient ___ Family ___ Nurse ___ Physician ___ Human Relations Manager ___ Control Operator ___ Other (describe below) Sacrament/Intervention _x__ Active listening ___ Anointing ___ Scientology ___ Bereavement ___ Communion ___ Mayra exploration ___ _x__ Life review _x__ Prayer ___ Reconciliation ___ Sacrament of Sick _x__ Supportive presence ___ Wedding ___ Other (describe below) Pastoral Comments casual conversation of life and what is currently on her TV channel; pt admits later to concerns about her move and making the right decisions; pt gives some life review and overview of her care and healing; prayers welcomed
[2022-03-09 15:37] VITALS: BP 123/57; PULSE 72; RESP 18; TEMP 36.6; O2SAT 96
[2022-03-09] MEDS: Baclofen 10 MG Tablet 30 MG PO (21:15)
[2022-03-09] MEDS: Rosuvastatin Calcium 5 MG Tablet PO (21:16)
[2022-03-09] MEDS: Docusate Sodium 100 MG Capsule 300 MG PO (21:16)
[2022-03-10] MEDS: Acetaminophen 500 MG Tablet 1000 MG PO ×4 (05:19→23:22)
[2022-03-10] MEDS: Methenamine Hippurate 1 GM Tablet 2 GM PO ×2 (05:20→17:36)
[2022-03-10] MEDS: Nitrofurantoin Macrocrystals 100 MG Capsule PO ×2 (05:20→17:36)
[2022-03-10] MEDS: Clopidogrel Bisulfate 75 MG Tablet PO (05:20)
[2022-03-10] MEDS: Levothyroxine 25 MCG TABLET PO (05:20)
[2022-03-10] MEDS: Doxycycline 100 MG CAPSULE PO ×2 (05:20→17:36)
[2022-03-10] MEDS: Psyllium 1 PACKET PO ×2 (08:23→17:36)
[2022-03-10] MEDS: Aspirin 81 MG TAB.CHEW PO ×2 (08:24→17:33)
[2022-03-10] MEDS: Sucralfate 1 GM Tablet PO ×4 (08:24→22:16)
[2022-03-10] MEDS: Gabapentin 600 MG Tablet PO ×3 (08:24→17:35)
[2022-03-10] MEDS: Potassium Chloride Oral Tablet 20 MEQ 40 MEQ PO (08:24)
[2022-03-10] MEDS: Ascorbic Acid 500 MG Tablet PO ×2 (08:25→17:34)
[2022-03-10 09:36] VITALS: PULSE 75; RESP 16; O2SAT 99
[2022-03-10] MEDS: Ferrous Sulfate 325 MG Tablet PO ×2 (11:05→17:34)
[2022-03-10 15:45] VITALS: BP 118/63; PULSE 80; RESP 18; TEMP 36.6; O2SAT 95
[2022-03-10] MEDS: Docusate Sodium 100 MG Capsule 300 MG PO (22:16)
[2022-03-10] MEDS: Baclofen 10 MG Tablet 30 MG PO (22:16)
[2022-03-11] MEDS: Methenamine Hippurate 1 GM Tablet 2 GM PO ×2 (06:18→18:19)
[2022-03-11] MEDS: Psyllium 1 PACKET PO ×2 (06:18→18:18)
[2022-03-11] MEDS: Acetaminophen 500 MG Tablet 1000 MG PO ×4 (06:18→23:25)
[2022-03-11] MEDS: Clopidogrel Bisulfate 75 MG Tablet PO (06:18)
[2022-03-11] MEDS: Nitrofurantoin Macrocrystals 100 MG Capsule PO ×2 (06:18→18:18)
[2022-03-11] MEDS: Levothyroxine 25 MCG TABLET PO (06:18)
[2022-03-11] MEDS: Sucralfate 1 GM Tablet PO ×4 (06:19→23:24)
[2022-03-11] MEDS: Doxycycline 100 MG CAPSULE PO ×2 (06:19→18:19)
[2022-03-11 07:38] LABS: Absolute Lymphocyte Count 1.67 X10^3/uL (0.83-4.51); Absolute Neutrophil Count 7.1 X10^3/uL (2.0-7.7); Basophil# 0.06 X10^3/uL; Basophil% 0.6 % (0-1); Eosinophils% 2.8 % (0-5); Hematocrit 32.2 % (37-47); Hemoglobin 9.2 g/dL (12.0-15.0); Lymphocyte # 1.67 X10^3/ul (0.83-4.51); Lymphocyte % 15.8 % (19-41); Mean Corp Hgb Conc 28.6 g/dL (32-36); Mean Corpuscular Hgb 28.2 pg (27.0-32.0); Mean Corpuscular Volume 98.8 fL (81-99); Monocyte# 1.34 X10^3/uL; Monocyte% 12.6 % (0-10); NRBC Flagged by Analyzer 0.2 % (0-5); Neutrophil # 7.06 X10^3/uL (2.7-7.7); Neutrophil % 66.6 % (47-70); Platelet Count 442 K/mm3 (150-450); RBC Distribution Width CV 17.6 % (11.6-14.6); RBC Distribution Width SD 62.6 fl (35.1-43.9); Red Blood Count 3.26 M/mm3 (4.2-5.4); White Blood Count 10.6 K/mm3 (4.4-11.0)
[2022-03-11 07:53] LABS: Anion Gap 8 (5-15); BUN 19 mg/dL (7-18); BUN/Creat Ratio 34.2 RATIO (10-20); Calcium,Total 9.2 mg/dL (8.5-10.1); Chloride 111 mmol/L (98-107); Creatinine, Serum 0.56 mg/dL (0.55-1.02); EST Glomerular Filtration Rate 115 mL/min (>60); Est Glom Filt Rate - Afr Amer 139 mL/min (>60); Glucose 102 mg/dL (74-106); Potassium 4.2 mmol/L (3.5-5.1); Sodium Level 143 mmol/L (136-145)
[2022-03-11] MEDS: Gabapentin 600 MG Tablet PO ×3 (08:04→18:16)
[2022-03-11] MEDS: Ascorbic Acid 500 MG Tablet PO ×2 (08:05→16:54)
[2022-03-11] MEDS: Potassium Chloride Oral Tablet 20 MEQ 40 MEQ PO (08:05)
[2022-03-11] MEDS: Aspirin 81 MG TAB.CHEW PO ×2 (08:05→16:52)
[2022-03-11] MEDS: Tuberculin,Purif.prot.deriv. 50 TU/ML Vial 0.1 ML ID (09:52)
[2022-03-11 10:06] VITALS: O2SAT 97
[2022-03-11] MEDS: Ferrous Sulfate 325 MG Tablet PO ×2 (11:38→16:53)
[2022-03-11 15:17] VITALS: BP 126/66; PULSE 69; RESP 18; TEMP 36.8; O2SAT 99
[2022-03-11 23:00] VITALS: PULSE 72; RESP 16; O2SAT 95
[2022-03-11] MEDS: Docusate Sodium 100 MG Capsule 300 MG PO (23:24)
[2022-03-11] MEDS: Baclofen 10 MG Tablet 30 MG PO (23:26)
[2022-03-12] MEDS: Methenamine Hippurate 1 GM Tablet 2 GM PO ×2 (05:39→17:31)
[2022-03-12] MEDS: Levothyroxine 25 MCG TABLET PO (05:39)
[2022-03-12] MEDS: Nitrofurantoin Macrocrystals 100 MG Capsule PO ×2 (05:40→17:31)
[2022-03-12] MEDS: Doxycycline 100 MG CAPSULE PO ×2 (05:40→17:33)
[2022-03-12] MEDS: Acetaminophen 500 MG Tablet 1000 MG PO ×4 (05:40→23:52)
[2022-03-12] MEDS: Clopidogrel Bisulfate 75 MG Tablet PO (05:40)
[2022-03-12] MEDS: Aspirin 81 MG TAB.CHEW PO ×2 (09:05→17:29)
[2022-03-12] MEDS: Ascorbic Acid 500 MG Tablet PO ×2 (09:05→17:30)
[2022-03-12] MEDS: Potassium Chloride Oral Tablet 20 MEQ 40 MEQ PO (09:05)
[2022-03-12] MEDS: Gabapentin 600 MG Tablet PO ×3 (09:05→17:37)
[2022-03-12] MEDS: Sucralfate 1 GM Tablet PO ×4 (09:05→20:44)
[2022-03-12] MEDS: Ferrous Sulfate 325 MG Tablet PO ×2 (11:18→17:29)
[2022-03-12 15:39] VITALS: BP 100/52; PULSE 76; RESP 18; TEMP 36.6; O2SAT 96
[2022-03-12] MEDS: Rosuvastatin Calcium 5 MG Tablet PO (20:43)
[2022-03-12] MEDS: Baclofen 10 MG Tablet 30 MG PO (20:43)
[2022-03-12] MEDS: Docusate Sodium 100 MG Capsule 300 MG PO (20:44)
[2022-03-12] MEDS: Polyethylene Glycol 3350 17 GM PACKET PO (20:51)
[2022-03-13] MEDS: Acetaminophen 500 MG Tablet 1000 MG PO ×4 (05:40→23:20)
[2022-03-13] MEDS: Doxycycline 100 MG CAPSULE PO ×2 (05:40→17:16)
[2022-03-13] MEDS: Nitrofurantoin Macrocrystals 100 MG Capsule PO ×2 (05:40→17:17)
[2022-03-13] MEDS: Clopidogrel Bisulfate 75 MG Tablet PO (05:41)
[2022-03-13] MEDS: Levothyroxine 25 MCG TABLET PO (05:41)
[2022-03-13] MEDS: Psyllium 1 PACKET PO (05:41)
[2022-03-13] MEDS: Methenamine Hippurate 1 GM Tablet 2 GM PO ×2 (05:41→17:16)
[2022-03-13] MEDS: Sucralfate 1 GM Tablet PO ×4 (05:42→22:50)
[2022-03-13 06:00] VITALS: BP 135/73; PULSE 69; RESP 16; TEMP 36.4; O2SAT 95
[2022-03-13] MEDS: Gabapentin 600 MG Tablet PO ×3 (08:32→17:19)
[2022-03-13] MEDS: Potassium Chloride Oral Tablet 20 MEQ 40 MEQ PO (08:33)
[2022-03-13] MEDS: Ascorbic Acid 500 MG Tablet PO ×2 (08:33→17:17)
[2022-03-13] MEDS: Aspirin 81 MG TAB.CHEW PO ×2 (08:33→17:17)
--- NOTE | 2022-03-13 09:15 | NURSING ---
Paid Search Analyst Note; MDS complete for FERMIN 03/10
[2022-03-13] MEDS: Ferrous Sulfate 325 MG Tablet PO ×2 (11:14→17:17)
[2022-03-13 14:26] VITALS: BP 103/62; PULSE 87; RESP 16; TEMP 36.4; O2SAT 98
[2022-03-13] MEDS: Baclofen 10 MG Tablet 30 MG PO (22:49)
[2022-03-13] MEDS: Docusate Sodium 100 MG Capsule 300 MG PO (22:49)
[2022-03-14] MEDS: Acetaminophen 500 MG Tablet 1000 MG PO ×4 (05:16→23:10)
[2022-03-14] MEDS: Nitrofurantoin Macrocrystals 100 MG Capsule PO ×2 (06:35→16:48)
[2022-03-14] MEDS: Levothyroxine 25 MCG TABLET PO (06:35)
[2022-03-14] MEDS: Clopidogrel Bisulfate 75 MG Tablet PO (06:35)
[2022-03-14] MEDS: Methenamine Hippurate 1 GM Tablet 2 GM PO ×2 (06:36→16:49)
[2022-03-14] MEDS: Sucralfate 1 GM Tablet PO ×4 (06:36→23:10)
[2022-03-14] MEDS: Doxycycline 100 MG CAPSULE PO ×2 (06:36→16:49)
[2022-03-14] MEDS: Psyllium 1 PACKET PO ×2 (08:03→16:49)
[2022-03-14] MEDS: Potassium Chloride Oral Tablet 20 MEQ 40 MEQ PO (08:03)
[2022-03-14] MEDS: Ascorbic Acid 500 MG Tablet PO ×2 (08:03→16:49)
[2022-03-14] MEDS: Aspirin 81 MG TAB.CHEW PO ×2 (08:03→16:49)
[2022-03-14] MEDS: Gabapentin 600 MG Tablet PO ×3 (08:03→16:49)
[2022-03-14] MEDS: Ferrous Sulfate 325 MG Tablet PO ×2 (11:49→16:49)
[2022-03-14 14:49] VITALS: BP 153/63; PULSE 78; RESP 18; TEMP 36.2; O2SAT 94
[2022-03-14] MEDS: Baclofen 10 MG Tablet 30 MG PO (23:11)
[2022-03-14] MEDS: Docusate Sodium 100 MG Capsule 300 MG PO (23:11)
[2022-03-15] MEDS: Sucralfate 1 GM Tablet PO ×4 (06:46→23:10)
[2022-03-15] MEDS: Clopidogrel Bisulfate 75 MG Tablet PO (06:46)
[2022-03-15] MEDS: Nitrofurantoin Macrocrystals 100 MG Capsule PO ×2 (06:46→17:21)
[2022-03-15] MEDS: Levothyroxine 25 MCG TABLET PO (06:46)
[2022-03-15] MEDS: Methenamine Hippurate 1 GM Tablet 2 GM PO ×2 (06:46→17:23)
[2022-03-15] MEDS: Acetaminophen 500 MG Tablet 1000 MG PO ×4 (06:47→23:10)
[2022-03-15] MEDS: Doxycycline 100 MG CAPSULE PO ×2 (06:47→17:21)
[2022-03-15] MEDS: Gabapentin 600 MG Tablet PO ×3 (07:55→17:22)
[2022-03-15] MEDS: Potassium Chloride Oral Tablet 20 MEQ 40 MEQ PO (07:55)
[2022-03-15] MEDS: Ascorbic Acid 500 MG Tablet PO ×2 (07:55→17:22)
[2022-03-15] MEDS: Aspirin 81 MG TAB.CHEW PO ×2 (07:55→17:22)
--- NOTE | 2022-03-15 08:26 | MDS.RN ---
Information for the mds was obtained from review of the clinical record, interview of resident, staff, and direct observation of resident's care. PD codes did not generate, [facility] information systems aware.
[2022-03-15] MEDS: Ferrous Sulfate 325 MG Tablet PO ×2 (11:25→17:22)
[2022-03-15 16:00] VITALS: BP 125/46; PULSE 68; RESP 16; TEMP 36.9; O2SAT 94
--- NOTE | 2022-03-15 16:23 | CHAPLAIN ---
Type of Pastoral Visit ___ Initial Visit _x__ Follow-up Visit ___ On-call Visit ___ General Patient Visit ___ Spiritual Assessment ___ Family Conference ___ Bereavement ___ Rapid Response ___ Code Blue ___ Other (describe below) Pastoral Care Referral From _x__ Patient ___ Family ___ Nurse ___ Physician ___ Ticket Sorter ___ E Learning Manager ___ Other (describe below) Sacrament/Intervention _x__ Active listening ___ Anointing ___ Confucianism ___ Bereavement ___ Communion _x__ Mayra exploration ___ ___ Life review _x__ Prayer ___ Reconciliation ___ Sacrament of Sick ___ Supportive presence ___ Wedding ___ Other (describe below) Pastoral Comments patient requested visit from this computing architect; pt had a Bible question she wanted to discuss; listened and gave some information for what she was looking for; listened to patient and concerns for her future which involve significant changes in her life; supportive presence and prayer given
[2022-03-15] MEDS: Psyllium 1 PACKET PO (17:22)
[2022-03-15] MEDS: Docusate Sodium 100 MG Capsule 300 MG PO (23:10)
[2022-03-15] MEDS: Rosuvastatin Calcium 5 MG Tablet PO (23:10)
[2022-03-15] MEDS: Baclofen 10 MG Tablet 30 MG PO (23:10)
[2022-03-15 23:26] VITALS: PULSE 72; RESP 18; O2SAT 98
[2022-03-16] MEDS: Clopidogrel Bisulfate 75 MG Tablet PO (06:16)
[2022-03-16] MEDS: Psyllium 1 PACKET PO (06:16)
[2022-03-16] MEDS: Acetaminophen 500 MG Tablet 1000 MG PO ×2 (06:16→11:11)
[2022-03-16] MEDS: Doxycycline 100 MG CAPSULE PO (06:16)
[2022-03-16] MEDS: Levothyroxine 25 MCG TABLET PO (06:16)
[2022-03-16] MEDS: Nitrofurantoin Macrocrystals 100 MG Capsule PO (06:16)
[2022-03-16] MEDS: Methenamine Hippurate 1 GM Tablet 2 GM PO (06:16)
[2022-03-16] MEDS: Sucralfate 1 GM Tablet PO ×2 (06:16→11:11)
[2022-03-16] MEDS: Potassium Chloride Oral Tablet 20 MEQ 40 MEQ PO (08:39)
[2022-03-16] MEDS: Aspirin 81 MG TAB.CHEW PO (08:39)
[2022-03-16] MEDS: Ascorbic Acid 500 MG Tablet PO (08:40)
[2022-03-16] MEDS: Gabapentin 600 MG Tablet PO ×2 (08:40→12:12)
[2022-03-16] MEDS: Ferrous Sulfate 325 MG Tablet PO (11:11)
[2022-03-16 12:58] VITALS: BP 141/70; PULSE 71; RESP 18; TEMP 36.4; O2SAT 96
[2022-03-16 13:00] VITALS: PULSE 71; O2SAT 96
--- NOTE | 2022-03-16 14:26 | CASEMGMT ---
Social Work BIMS and PHQ-9 completed for MDS assessment. Natalie Fry, SIDE DOOR WORKER SENIOR MECHANICAL PROJECT MANAGER
== END 2022-03-16 11:45 | disposition home health service (06) | DRG 560 ==
PROVIDERS: Admitting Provider Family Medicine Geriatric Medicine; PCP Family Medicine Geriatric Medicine; Visit Provider Family Medicine Geriatric Medicine
DX: Z47.1 Aftercare following joint replacement surgery (principal); N39.0 Urinary tract infection, site not specified; D50.9 Iron deficiency anemia, unspecified; I25.10 Atherosclerotic heart disease of native coronary artery without angina pectoris; K21.9 Gastro-esophageal reflux disease without esophagitis; G62.9 Polyneuropathy, unspecified; E78.00 Pure hypercholesterolemia, unspecified; E87.6 Hypokalemia; M19.90 Unspecified osteoarthritis, unspecified site; I10 Essential (primary) hypertension; E03.9 Hypothyroidism, unspecified; B96.20 Unspecified Escherichia coli [E. coli] as the cause of diseases classified elsewhere; Z96.641 Presence of right artificial hip joint; Z87.891 Personal history of nicotine dependence; Z79.899 Other long term (current) drug therapy; Z95.2 Presence of prosthetic heart valve; Z79.890 Hormone replacement therapy; Z79.82 Long term (current) use of aspirin; Z79.02 Long term (current) use of antithrombotics/antiplatelets
CPT/HCPCS: 36415; 80048; 81001; 85025; 87086; 87088; 87186; 87426; 97110; 97116; 97162; 97165; 97530; 97535; 97802

== ENCOUNTER → 2022-04-06 | Outpatient (CLI) | payer MEDICARE, OTHER, SELFPAY | END | disposition home or self-care (01) | LOC: LABSPEC 14:22 | PROVIDERS: PCP Family Medicine Geriatric Medicine; Visit Provider Family Medicine Geriatric Medicine | DX: N39.0 Urinary tract infection, site not specified (principal) | CPT/HCPCS: 87077; 87086; 87088; 87186 ==

== ENCOUNTER → 2022-05-08 | Outpatient (CLI) | payer MEDICARE, OTHER, SELFPAY ==
[2022-05-08 17:14] LABS: Absolute Lymphocyte Count 1.53 X10^3/uL (0.83-4.51); Absolute Neutrophil Count 7.2 X10^3/uL (2.0-7.7); Basophil# 0.03 X10^3/uL; Basophil% 0.3 % (0-1); Eosinophil# 0.11 X10^3/uL; Eosinophils% 1.1 % (0-5); Hematocrit 43.4 % (37-47); Hemoglobin 13.1 g/dL (12.0-15.0); Lymphocyte # 1.53 X10^3/ul (0.83-4.51); Lymphocyte % 15.1 % (19-41); Mean Corp Hgb Conc 30.2 g/dL (32-36); Mean Corpuscular Hgb 28.3 pg (27.0-32.0); Mean Corpuscular Volume 93.7 fL (81-99); Mean Platelet Vol. 9.2 fl (6.2-12.0); Monocyte% 10.9 % (0-10); NRBC Flagged by Analyzer 0 % (0-5); Neutrophil # 7.24 X10^3/uL (2.7-7.7); Neutrophil % 71.7 % (47-70); Platelet Count 504 K/mm3 (150-450); RBC Distribution Width SD 48.1 fl (35.1-43.9); Red Blood Count 4.63 M/mm3 (4.2-5.4); White Blood Count 10.1 K/mm3 (4.4-11.0)
[2022-05-08 17:54] LABS: Vitamin D,25 Hydroxy 23.8 ng/mL
[2022-05-08 18:00] LABS: AST(SGOT) 16 U/L (15-37); Alanine Aminotransfer ALT/SGPT 20 U/L (13-56); Alkaline Phosphatase 73 U/L (45-117); Anion Gap 5 (5-15); BUN 19 mg/dL (7-18); BUN/Creat Ratio 28.6 RATIO (10-20); Calcium,Total 10.2 mg/dL (8.5-10.1); Chloride 109 mmol/L (98-107); Creatinine, Serum 0.66 mg/dL (0.55-1.02); EST Glomerular Filtration Rate 93 mL/min (>60); Est Glom Filt Rate - Afr Amer 113 mL/min (>60); Globulin 3.9 g/dL (2.2-4.2); Glucose 72 mg/dL (74-106); Potassium 4.1 mmol/L (3.5-5.1); Protein, Total 7.9 g/dL (6.4-8.2); Sodium Level 142 mmol/L (136-145); Thyroid Stim Hormone (TSH) 1.59 uIU/mL (0.358-3.74)
== END | disposition home or self-care (01) ==
LOC: POLAB3 13:56
PROVIDERS: PCP Family Medicine Geriatric Medicine; Visit Provider Family Medicine Geriatric Medicine
DX: I10 Essential (primary) hypertension (principal); E55.9 Vitamin D deficiency, unspecified; N39.0 Urinary tract infection, site not specified
CPT/HCPCS: 36415; 80053; 82306; 84443; 85025; 87077; 87086; 87088; 87186

== ENCOUNTER → 2022-05-11 | Outpatient (CLI) | payer MEDICARE, OTHER, SELFPAY | END | disposition home or self-care (01) | LOC: POLAB3 15:05 → LABSPEC 15:06 | PROVIDERS: PCP Family Medicine Geriatric Medicine; Visit Provider Family Medicine Geriatric Medicine | DX: N39.0 Urinary tract infection, site not specified (principal) | CPT/HCPCS: 87086; 87088; 87186 ==

== ENCOUNTER → 2022-06-13 | Outpatient (CLI) | payer MEDICARE, OTHER, SELFPAY | END | disposition home or self-care (01) | LOC: POLAB3 16:23 | PROVIDERS: PCP Family Medicine Geriatric Medicine; Visit Provider Family Medicine Geriatric Medicine | DX: N39.0 Urinary tract infection, site not specified (principal) | CPT/HCPCS: 87077; 87086; 87088; 87186 ==

== ENCOUNTER → 2022-06-16 | Outpatient (CLI) | payer MEDICARE, OTHER, SELFPAY ==
[2022-06-16 16:15] LABS: AST(SGOT) 14 U/L (15-37); Alanine Aminotransfer ALT/SGPT 19 U/L (13-56); Albumin, Serum 3.5 g/dL (3.2-5.0); Alkaline Phosphatase 75 U/L (45-117); Cholesterol 147 mg/dL (200); High Density Lipoprotein 40 mg/dL; Protein, Total 7.5 g/dL (6.4-8.2); Triglycerides 216 mg/dL; Very Low Density Lipoprotein 43 mg/dL (5-40)
== END | disposition home or self-care (01) ==
LOC: LAB 14:51
PROVIDERS: PCP Family Medicine Geriatric Medicine; Referring Provider Internal Medicine Cardiovascular Disease; Visit Provider Internal Medicine Cardiovascular Disease
DX: I25.10 Atherosclerotic heart disease of native coronary artery without angina pectoris (principal); I10 Essential (primary) hypertension; Z95.2 Presence of prosthetic heart valve; Z95.5 Presence of coronary angioplasty implant and graft
CPT/HCPCS: 36415; 80061; 80076

== ENCOUNTER → 2022-08-10 | Outpatient (CLI) | payer MEDICARE, OTHER, SELFPAY ==
[2022-08-10 17:37] LABS: Absolute Lymphocyte Count 1.68 X10^3/uL (0.83-4.51); Absolute Neutrophil Count 5.3 X10^3/uL (2.0-7.7); Basophil# 0.06 X10^3/uL; Basophil% 0.7 % (0-1); Eosinophil# 0.12 X10^3/uL; Eosinophils% 1.5 % (0-5); Hematocrit 44.5 % (37-47); Hemoglobin 13.5 g/dL (12.0-15.0); Lymphocyte # 1.68 X10^3/ul (0.83-4.51); Lymphocyte % 20.4 % (19-41); Mean Corp Hgb Conc 30.3 g/dL (32-36); Mean Corpuscular Hgb 28.2 pg (27.0-32.0); Mean Corpuscular Volume 93.1 fL (81-99); Mean Platelet Vol. 9.3 fl (6.2-12.0); Monocyte# 1.06 X10^3/uL; Monocyte% 12.9 % (0-10); NRBC Flagged by Analyzer 0 % (0-5); Neutrophil # 5.29 X10^3/uL (2.7-7.7); Neutrophil % 64.1 % (47-70); Platelet Count 330 K/mm3 (150-450); RBC Distribution Width CV 15.6 % (11.6-14.6); RBC Distribution Width SD 53.6 fl (35.1-43.9); Red Blood Count 4.78 M/mm3 (4.2-5.4); White Blood Count 8.2 K/mm3 (4.4-11.0)
[2022-08-10 18:10] LABS: Vitamin D,25 Hydroxy 26.1 ng/mL
[2022-08-10 18:24] LABS: ALB/GLOB Ratio 1.1 RATIO (0.9-2.4); AST(SGOT) 17 U/L (15-37); Alanine Aminotransfer ALT/SGPT 20 U/L (13-56); Albumin, Serum 3.9 g/dL (3.2-5.0); Alkaline Phosphatase 54 U/L (45-117); Anion Gap 7 (5-15); BUN 23 mg/dL (7-18); BUN/Creat Ratio 32.7 RATIO (10-20); Calcium,Total 9.2 mg/dL (8.5-10.1); Chloride 109 mmol/L (98-107); EST Glomerular Filtration Rate 87 mL/min (>60); Est Glom Filt Rate - Afr Amer 106 mL/min (>60); Globulin 3.4 g/dL (2.2-4.2); Glucose 88 mg/dL (74-106); Potassium 4.3 mmol/L (3.5-5.1); Protein, Total 7.3 g/dL (6.4-8.2); Sodium Level 140 mmol/L (136-145)
== END | disposition home or self-care (01) ==
LOC: POLAB3 13:55
PROVIDERS: PCP Family Medicine Geriatric Medicine; Visit Provider Family Medicine Geriatric Medicine
DX: E55.9 Vitamin D deficiency, unspecified (principal); I10 Essential (primary) hypertension
CPT/HCPCS: 36415; 80053; 82306; 84443; 85025

== ENCOUNTER 2022-10-11 19:03 | Emergency (ER) | payer MEDICARE, OTHER, SELFPAY ==
[2022-10-11 19:04] VITALS: BP 184/75; PULSE 79; RESP 16; TEMP 36.8; O2SAT 94
--- NOTE | 2022-10-11 19:47 | CT_ITS ---
EXAM: CT CHEST, ABDOMEN AND PELVIS WITH INTRAVENOUS CONTRAST CLINICAL INDICATION: left rib/flank pain TECHNIQUE: Helically acquired images were obtained of the chest, abdomen and pelvis with intravenous contrast. This CT exam was performed using one or more of the following dose reduction techniques: automated exposure control, adjustment of the mA and/or kV according to patient size, and/or use of iterative reconstruction technique. CONTRAST: IV 100mL Isovue-370 RADIATION DOSE: CTDIvol = 27.81 mGy, DLP = 2391.06 mGy-cm COMPARISON: ct chest 03.02.17 and ctap 02.15.22 FINDINGS: CHEST: LUNGS AND PLEURAL SPACES: There is no pneumothorax. There is no demonstrated pleural abnormality. No mass. HEART: There are calcifications of the coronary arteries. Heart size is normal. No pericardial effusion. MEDIASTINUM: Unremarkable. No mediastinal or hilar adenopathy. Esophagus is unremarkable. No hiatal hernia. THYROID: Unremarkable. No thyroid lesions. ABDOMEN: LIVER: There is hepatomegaly with diffuse hepatic enlargement. GALLBLADDER AND BILE DUCTS: Unremarkable. No calcified gallstones. No gallbladder distention or wall edema. No intra- or extrahepatic biliary ductal dilation. Normal gallbladder and extrahepatic biliary system. PANCREAS: Unremarkable. No focal cystic or solid mass. Normal pancreas. SPLEEN: Unremarkable. Normal spleen. ADRENALS: Unremarkable. Normal bilateral adrenal glands. KIDNEYS AND URETERS: Unremarkable. Normal renal size and position. No hydronephrosis. No acute findings of the right kidney. No acute findings of the left kidney. STOMACH AND BOWEL: Stable moderate-sized ventral hernia in the lower anterior pelvic wall containing large and small bowel loops. Rectosigmoid anastomosis. There are multiple colonic diverticula consistent with diverticulosis. No stomach or bowel distention. No focal inflammatory change. Normal visualized stomach. PELVIS: APPENDIX: There is non-visualization of the appendix. BLADDER: Urinary bladder wall has wall thickening. This can be related to a partially contractile state. However, a cystitis is not excluded. Urinalysis should be performed in an effort to exclude cystitis. REPRODUCTIVE: Unremarkable as visualized. No mass. CHEST, ABDOMEN and PELVIS: INTRAPERITONEAL SPACE: Unremarkable. No ascites or other fluid collection. No free air. BONES/JOINTS: There are degenerative changes of the shoulders. There are multi-level degenerative changes of the thoracic spine. No suspicious lytic or blastic abnormality. SOFT TISSUES: Stable 10 cm x 2 cm fluid collection in the deep subcutaneous tissues overlying the left sacrum and left lower lumbar spine. There is an umbilical hernia containing fat. VASCULATURE: There is atherosclerotic calcification of the aortic arch with tortuosity and elongation of the aortic arch and descending thoracic aorta. There are calcifications of the abdominal aorta. This is consistent for atherosclerotic disease. There is no abdominal aortic aneurysm. LYMPH NODES: Unremarkable. No enlarged lymph nodes. TUBES, LINES AND DEVICES: TAVR. CT/CT Chest, Abd, Pel w/Contrast IMPRESSION: 1. Urinary bladder wall has wall thickening. This can be related to a partially contractile state. However, a cystitis is not excluded. Urinalysis should be performed in an effort to exclude cystitis. 2. Stable moderate-sized ventral hernia in the lower anterior pelvic wall containing large and small bowel loops. 3. There is hepatomegaly with diffuse hepatic enlargement. 4. Stable 10 cm x 2 cm fluid collection in the deep subcutaneous tissues overlying the left sacrum and left lower lumbar spine. Electronically Signed: Dawit Wilks MD at 21:34 EDT ,
[2022-10-11 20:16] LABS: Absolute Lymphocyte Count 1.14 X10^3/uL (0.83-4.51); Absolute Neutrophil Count 7.6 X10^3/uL (2.0-7.7); Basophil# 0.05 X10^3/uL; Basophil% 0.5 % (0-1); Eosinophil# 0.08 X10^3/uL; Eosinophils% 0.8 % (0-5); Hematocrit 42.7 % (37-47); Hemoglobin 13.4 g/dL (12.0-15.0); Lymphocyte # 1.14 X10^3/ul (0.83-4.51); Lymphocyte % 11.3 % (19-41); Mean Corp Hgb Conc 31.4 g/dL (32-36); Mean Corpuscular Hgb 29.3 pg (27.0-32.0); Mean Corpuscular Volume 93.4 fL (81-99); Mean Platelet Vol. 8.9 fl (6.2-12.0); Monocyte# 1.11 X10^3/uL; NRBC Flagged by Analyzer 0 % (0-5); Neutrophil # 7.59 X10^3/uL (2.7-7.7); Platelet Count 348 K/mm3 (150-450); RBC Distribution Width CV 14.6 % (11.6-14.6); RBC Distribution Width SD 49.6 fl (35.1-43.9); Red Blood Count 4.57 M/mm3 (4.2-5.4); White Blood Count 10.1 K/mm3 (4.4-11.0)
[2022-10-11 20:35] LABS: ALB/GLOB Ratio 1.1 RATIO (0.9-2.4); AST(SGOT) 22 U/L (15-37); Alanine Aminotransfer ALT/SGPT 22 U/L (13-56); Albumin, Serum 3.7 g/dL (3.2-5.0); Alkaline Phosphatase 56 U/L (45-117); Anion Gap 8 (5-15); BUN 22 mg/dL (7-18); BUN/Creat Ratio 29.1 RATIO (10-20); Calcium,Total 9.2 mg/dL (8.5-10.1); Chloride 110 mmol/L (98-107); Creatinine, Serum 0.76 mg/dL (0.55-1.02); EST Glomerular Filtration Rate 80 mL/min (>60); Est Glom Filt Rate - Afr Amer 97 mL/min (>60); Globulin 3.5 g/dL (2.2-4.2); Glucose 99 mg/dL (74-106); Potassium 4.4 mmol/L (3.5-5.1); Protein, Total 7.2 g/dL (6.4-8.2); Sodium Level 141 mmol/L (136-145)
--- NOTE | 2022-10-11 20:35 | EDS_ITS ---
HPI History of Present Illness Chief Complaint: Fall Narrative Narrative: 72-year-old female presenting with left-sided rib and abdominal pain. Patient states she was trying to stack some boxes on her rollator and get out of her front door but she fell down 2 steps standing on her left side. She states that she grazed her head on her hand but did not hit her head very hard to lose consciousness. She was able to get up and walk after this. She does not believe she severely injured her extremities. Patient is not on any blood thinners. Patient describes severe pain in the left ribs and left lower abdomen. She is not taken anything for pain prior to arrival. She was able to drive herself here. She states it hurts when she takes a deep breath. [facility] Medical History Abnormal Pap smear of cervix Acute osteomyelitis of sacrum Alcohol use Anemia Anxiety Aortic stenosis Atherosclerotic heart disease of [place] coronary artery without angina pectoris Atrial fibrillation with RVR (03/05/17) Back pain Bladder disease Body mass index (bmi) 36.0-36.9, adult Bruising Cardiology follow-up encounter Colovaginal fistula Constipation Coronary artery disease COVID-19 Debility Degeneration of intervertebral disc of lumbar region Depression Essential (primary) hypertension Fatty liver Former smoker GERD (gastroesophageal reflux disease) High cholesterol History of echocardiogram History of GI bleed History of pain when walking History of steroid therapy History of transcatheter aortic valve replacement (TAVR) (11/24/20) Hypergranulation Hypothyroidism Hypothyroidism Leg cramps Loss of consciousness Low iron Lumbosacral pain, chronic Methicillin resistant Staph aureus culture positive Neuropathic pain Neuropathy Non-healing surgical wound Nonrheumatic aortic (valve) stenosis Obesity Osteoarthritis Osteomyelitis Osteomyelitis of pelvis Over 65 years old Postoperative anemia Postoperative seroma of subcutaneous tissue after dermatologic procedure Pressure ulcer of left heel, stage 3 Pressure ulcer of right heel, stage 3 Pressure ulcer of sacral region, 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, stage 4 Recurrent UTI (urinary tract infection) Sacral osteomyelitis Scoliosis Segmental and somatic dysfunction of lumbar region Segmental and somatic dysfunction of pelvic region Surgical wound present Walker as ambulation aid Wears glasses Home Medications levothyroxine 25 mcg tablet 25 mcg PO DAILY THYROID 03/02/17 [History Last Taken 12/07/21 06:05] omeprazole 40 mg capsule,delayed release 40 mg PO 1400 PRN GERD 04/11/18 [History Last Taken 12/07/21 06:05] potassium chloride 20 mEq tablet,extended release(part/cryst) 40 meq PO DAILY supplement #60 tabs 07/07/19 [Rx Last Taken Unknown] ascorbic acid (vitamin C) 500 mg capsule 500 mg PO BID vitamin 01/06/20 [History Last Taken Unknown] cholecalciferol (vitamin D3) 25 mcg (1,000 unit) capsule (Vitamin D3) 25 mcg PO DAILY Supplement 11/22/21 [History Last Taken Unknown] methenamine hippurate 1 gram tablet (Hiprex) 2 g PO BID Check with primary doctor 11/22/21 [History Last Taken Unknown] psyllium husk 0.4 gram capsule (Daily Fiber) 0.8 g PO BID Check with primary doctor 11/22/21 [History Last Taken Unknown] diclofenac sodium 50 mg tablet,delayed release 50 mg PO BID pain 01/31/22 [History Last Taken Unknown] linaclotide 145 mcg capsule (Linzess) 145 mcg PO PRN PRN Constipation 01/31/22 [History Last Taken Unknown] nitrofurantoin monohydrate/macrocrystals 100 mg capsule 100 mg PO BID 2 days #4 caps 03/08/22 [Rx Last Taken Unknown] Lactobacillus acidophil,plantar-Bifido no.7 25 billion cell capsule (up4 Probiotics Adult 50 Plus) 2 cap PO DAILY 06/16/22 [History Last Taken Unknown] acetaminophen 500 mg tablet 1,000 mg PO Q6H pain 06/16/22 [History Last Taken Unknown] aspirin 81 mg chewable tablet 81 mg PO DAILY blood thinner 06/16/22 [History Last Taken Unknown] baclofen 10 mg tablet 30 mg PO QHS PRN muscle spasms 06/16/22 [History Last Taken Unknown] curcumin-phosphatidylcholine 500 mg capsule mg PO 06/16/22 [History Last Taken Unknown] ferrous sulfate 325 mg (65 mg iron) tablet (FeroSul) 325 mg PO DAILY supplement 06/16/22 [History Last Taken Unknown] gabapentin 600 mg tablet 600 mg PO TID PRN PAIN 06/16/22 [History Last Taken Unknown] omega-3 fatty acids 1,000 mg PO DAILY 06/16/22 [History Last Taken Unknown] polysaccharide iron complex 150 mg iron capsule 150 mg PO DAILY 06/16/22 [History Last Taken Unknown] clopidogrel 75 mg tablet 75 mg PO DAILY Blood Thinner #90 tabs 09/05/22 [Rx Last Taken Unknown] rosuvastatin 5 mg tablet (Crestor) 5 mg PO .Q3DAY Cholesterol #36 tabs 09/05/22 [Rx Last Taken Unknown] Allergy/AdvReac Type Severity Reaction Status Date / Time bee venom protein (honey bee) Allergy Angioedema Verified 10/11/22 19:04 metaxalone [From Skelaxin] Allergy Swelling Verified 10/11/22 19:04 atorvastatin AdvReac Severe SEVERE Verified 10/11/22 19:04 MYALGIAS Family History Father Myocardial infarction age 79 Cancer lung High cholesterol Brother Heart disease High cholesterol Mother COPD (chronic obstructive pulmonary disease) Skin cancer Parkinson disease Grandmother Depression Arthritis Surgical History H/O dilation and curettage History of cardiac catheterization History of coronary artery stent placement (08/23/20) History of partial colectomy History of total right hip replacement Hx of cystoscopy Hx of total hip arthroplasty S/P endometrial ablation S/P flap graft S/P hip replacement S/P hysterectomy Status post total hip replacement, left Status post total hip replacement, right Social History household members: none Smoking Status: Former smoker alcohol intake: current alcohol intake frequency: holidays/special occasions only substance use type: does not use caffeine: Yes what type of physical activity do you participate in: walking and other details: Stretching frequency: 5-6 times per week seatbelt use: always do you feel safe at home: Yes additional social history: - Retired EXAM Physical Exam Const Vital Signs: 10/11/22 19:04 10/11/22 19:13 Temperature 98.2 F Temperature Source Temporal Pulse Rate 79 Respiratory Rate 16 Respiratory Effort Short of Breath Blood Pressure 184/75 H Blood Pressure Mean 111 Pulse Ox 94 Oxygen Delivery Method Room Air Positive well nourished and obese General Appearance ED: NAD Nutritional Appearance: obese HEENT atraumatic Eyes PERRL and EOMs intact bilaterally Neck full ROM General: Negative for tenderness Chest Wall Chest Narrative: Tenderness to palpation over the left ribs in the mid axillary line and anterior axillary line. No rib deformity. No ecchymosis, swelling. Equal symmetric breath sounds and chest wall rise. Resp normal respiratory effort and clear to auscultation bilaterally Cardio regular rhythm GI GI Narrative: Tenderness to palpation left upper quadrant. No bruising or ecchymosis. Abdomen nonperitoneal. Back/Spine normal to inspection Extremity normal to inspection and full ROM General Extremety ED: Negative for deformity or edema General Extremity: Negative for deformity or edema Neuro oriented x3, CN's II-XII intact bilaterally, moves all extremities, no focal motor deficits and no sensory deficits noted Sensorium / Orientation: alert Motor Exam: strength 5/5 throughout Psych mental status grossly normal and thought process normal Skin no rashes or lesions noted and no wounds MDM MDM MDM Narrative Medical decision making narrative: Patient presenting with severe left rib pain and left upper abdominal pain. Patient fell down 2 steps and is elderly and obese. I do have concern for severe intrathoracic or intra-abdominal injury. We will obtain a CT of the chest abdomen pelvis. CBC to assess white blood cell count, hemoglobin, platelets, differential. CMP to assess liver function, renal function, glucose, anion gap. Patient declines anything stronger than Tylenol currently. She states that she wants to drive home if she does not have a severe injury. CBC shows no leukocytosis. Hemoglobin hematocrit are stable. Platelets are normal. Renal function electrolytes within normal limits. LFTs are normal. CT of the chest abdomen pelvis was obtained and shows no acute intrathoracic or intra- abdominal abnormality. Patient still refusing pain medication but I did give her a Lidoderm patch. She is unsure if this is helping. She does not want anything stronger because she states it makes her constipated. At this point I feel she is safe for discharge home. Return precautions were given. I will write her prescription for Lidoderm patches. Impression: 1. Fall 2. Left rib contusion 3. Left abdominal contusion Lab Data Labs: Laboratory Results - last 24 hr 10/11/22 10/11/22 20:10 20:10 WBC 10.1 RBC 4.57 Hgb 13.4 Hct 42.7 MCV 93.4 MCH 29.3 MCHC 31.4 L RDW Std Deviation 49.6 H RDW Coeff of Yevgeniy 14.6 Plt Count 348 MPV 8.9 Immature Gran % (Auto) 1.400 H Neut % (Auto) 75.0 H Lymph % (Auto) 11.3 L Navarro % (Auto) 11.0 H Eos % (Auto) 0.8 Baso % (Auto) 0.5 Absolute Neuts (auto) 7.6 Absolute Lymphs (auto) 1.14 Nucleated RBC % 0 Sodium 141 Potassium 4.4 Chloride 110 H Carbon Dioxide 23.0 Anion Gap 8 BUN 22 H Creatinine 0.76 Est GFR (MDRD) Af Amer 97 Est GFR (MDRD) Non-Af 80 BUN/Creatinine Ratio 29.1 H Glucose 99 Calcium 9.2 Total Bilirubin 0.20 AST 22 ALT 22 Alkaline Phosphatase 56 Total Protein 7.2 Albumin 3.7 Globulin 3.5 Albumin/Globulin Ratio 1.1 Radiography Diagnostic Testing: Clinical Impression(s) from Imaging Studies Chest/Abdomen/Pelvis CT 10/11/22 19:47 IMPRESSION: 1. Urinary bladder wall has wall thickening. This can be related to a partially contractile state. However, a cystitis is not excluded. Urinalysis should be performed in an effort to exclude cystitis. 2. Stable moderate-sized ventral hernia in the lower anterior pelvic wall containing large and small bowel loops. 3. There is hepatomegaly with diffuse hepatic enlargement. 4. Stable 10 cm x 2 cm fluid collection in the deep subcutaneous tissues overlying the left sacrum and left lower lumbar spine. Electronically Signed: Dawit Wilks MD at 21:34 EDT Reading Location ID and State: [facility] / [place] , Service support , Discharge Plan Triage Chief Complaint: Fall ED Provider: Varghese Handy Dx/Rx/DC Orders Instructions: ED Bruise, Rib, ED Fall Prevention Prescriptions: No Action gabapentin 600 mg tablet 600 mg PO TID PRN (Reason: PAIN) aspirin 81 mg tablet,chewable 81 mg PO DAILY polysaccharide iron complex 150 mg iron capsule 150 mg PO DAILY Label Comments: TAKE 1 CAPSULE BY MOUTH EVERY DAY FOR 90 DAYS omega-3 fatty acids Capsule 1,000 mg PO DAILY up4 Probiotics Adult 50 Plus 25 billion cell capsule 2 cap PO DAILY curcumin-phosphatidylcholine 500 mg capsule PO levothyroxine 25 MCG tablet 25 mcg PO DAILY omeprazole 40 MG capsule,delayed release(DR/EC) 40 mg PO 1400 PRN (Reason: GERD) potassium chloride 20 MEQ tablet 40 meq PO DAILY Qty: 60 0RF ascorbic acid (vitamin C) 500 MG capsule 500 mg PO BID methenamine hippurate [Hiprex] 1 gram Tablet 2 g PO BID cholecalciferol (vitamin D3) [Vitamin D3] 25 mcg (1,000 unit) Capsule 25 mcg PO DAILY psyllium husk [Daily Fiber] 0.4 gram Capsule 0.8 g PO BID diclofenac sodium 50 mg tablet,delayed release (DR/EC) 50 mg PO BID Label Comments: TAKE 1 TABLET ORALLY TWICE PER DAY FOR 90 DAYS TAKE WITH FOOD Linzess 145 mcg Capsule 145 mcg PO PRN PRN (Reason: Constipation) acetaminophen 500 mg tablet 1,000 mg PO Q6H baclofen 10 mg tablet 30 mg PO QHS PRN (Reason: muscle spasms) Label Comments: TAKE 3 TABLETS BY MOUTH DAILY FOR 7 DAYS nitrofurantoin monohyd/m-cryst 100 mg Capsule 100 mg PO BID 2 Days Qty: 4 0RF ferrous sulfate [FeroSul] 325 mg (65 mg iron) tablet 325 mg PO DAILY clopidogrel 75 mg tablet 75 mg PO DAILY Qty: 90 3RF Label Comments: LAST DOSE 02/07/2022 rosuvastatin [Crestor] 5 mg tablet 5 mg PO .Q3DAY Qty: 36 3RF Primary Care Provider: Chema Sanchez Chi Referrals: Chema Sanchez Chi, MD [Primary Care Provider] - Disposition Disposition: Home, Self Care
[2022-10-11] MEDS: Acetaminophen 500 MG Tablet 1000 MG PO (21:08)
[2022-10-11] MEDS: Lidocaine 5% Patch 1 PATCH TOPICAL (21:09)
[2022-10-11 21:13] VITALS: BMI 41.4
[2022-10-11 22:07] VITALS: BP 169/89; PULSE 81; RESP 14; O2SAT 97
== END 2022-10-11 22:08 | disposition home or self-care (01) ==
PROVIDERS: Emergency Provider Student in an Organized Health Care Education/Training Program; PCP Family Medicine Geriatric Medicine; Visit Provider Student in an Organized Health Care Education/Training Program
DX: S20.212A Contusion of left front wall of thorax, initial encounter (principal); S30.1XXA Contusion of abdominal wall, initial encounter; W10.9XXA Fall (on) (from) unspecified stairs and steps, initial encounter; Y92.008 Other place in unspecified non-institutional (private) residence as the place of occurrence of the external cause; Y93.89 Activity, other specified; I25.10 Atherosclerotic heart disease of native coronary artery without angina pectoris; I10 Essential (primary) hypertension; E78.00 Pure hypercholesterolemia, unspecified; Z95.5 Presence of coronary angioplasty implant and graft; Z79.899 Other long term (current) drug therapy; Z86.16 Personal history of COVID-19; Z87.891 Personal history of nicotine dependence
CPT/HCPCS: 71260; 74177; 80053; 85025; 99283; Q9967; A4216

== ENCOUNTER → 2022-10-13 | Outpatient (CLI) | payer MEDICARE, OTHER, SELFPAY ==
[2022-10-13 12:00] LABS: Color, Urine Yellow (Yellow); Glucose, Dipstick Normal (Normal); Ketone-Dipstick Negative (Negative); Leukocyte Esterase-Dipstick 100 /ul (Negative); Nitrite-Dipstick Negative (Negative); Occult Blood-Urine 250 /ul (Negative); Protein-Dipstick 100 mg/dl (Negative); Urine Bilirubin Dipstick Negative (Negative); Urine Clarity Sl. Cloudy (Clear); Urine Urobilinogen Normal (Normal)
[2022-10-13 12:04] LABS: Absolute Lymphocyte Count 1.09 X10^3/uL (0.83-4.51); Absolute Neutrophil Count 6.1 X10^3/uL (2.0-7.7); Basophil# 0.04 X10^3/uL; Basophil% 0.5 % (0-1); Eosinophil# 0.09 X10^3/uL; Eosinophils% 1.1 % (0-5); Hematocrit 44.1 % (37-47); Hemoglobin 12.9 g/dL (12.0-15.0); Lymphocyte # 1.09 X10^3/ul (0.83-4.51); Lymphocyte % 13.2 % (19-41); Mean Corp Hgb Conc 29.3 g/dL (32-36); Mean Corpuscular Hgb 28.5 pg (27.0-32.0); Mean Corpuscular Volume 97.6 fL (81-99); Mean Platelet Vol. 9.1 fl (6.2-12.0); Monocyte# 0.92 X10^3/uL; Monocyte% 11.2 % (0-10); NRBC Flagged by Analyzer 0 % (0-5); Neutrophil # 6.05 X10^3/uL (2.7-7.7); Neutrophil % 73.4 % (47-70); Platelet Count 347 K/mm3 (150-450); RBC Distribution Width CV 14.7 % (11.6-14.6); RBC Distribution Width SD 53.2 fl (35.1-43.9); Red Blood Count 4.52 M/mm3 (4.2-5.4); White Blood Count 8.2 K/mm3 (4.4-11.0)
[2022-10-13 12:06] LABS: Prothrombin Time (Protime)PT. 12.8 SECONDS (11.7-14.9)
[2022-10-13 13:10] LABS: Anion Gap 5 (5-15); BUN 23 mg/dL (7-18); BUN/Creat Ratio 34.2 RATIO (10-20); Calcium,Total 9.1 mg/dL (8.5-10.1); Chloride 114 mmol/L (98-107); Creatinine, Serum 0.67 mg/dL (0.55-1.02); EST Glomerular Filtration Rate 92 mL/min (>60); Est Glom Filt Rate - Afr Amer 111 mL/min (>60); Glucose 110 mg/dL (74-106); Potassium 3.9 mmol/L (3.5-5.1); Sodium Level 142 mmol/L (136-145)
[2022-10-13 14:33] LABS: Partial Thromboplast Time 33.5 Seconds (24.1-36.2)
== END | disposition home or self-care (01) ==
LOC: POLAB3 11:25
PROVIDERS: PCP Family Medicine Geriatric Medicine; Visit Provider Family Medicine Geriatric Medicine
DX: Z01.812 Encounter for preprocedural laboratory examination (principal); I10 Essential (primary) hypertension; N39.0 Urinary tract infection, site not specified
CPT/HCPCS: 36415; 80048; 81002; 85025; 85610; 85730; 87086; 87088